=== PATIENT | female | born 1955 | race Caucasian/White ===

== ENCOUNTER 2020-05-17 16:09 | Inpatient (IN) | payer OTHER, SELFPAY ==
[2020-05-17 16:23] VITALS: BP 174/80; PULSE 76; RESP 13; TEMP 37.1; O2SAT 100; BMI 32.2
[2020-05-17 16:24] LABS: Glucose, Whole Blood 591 mg/dL (60-115)
--- NOTE | 2020-05-17 16:45 | ECG_ITS ---
Test Reason : DIZZINESS Blood Pressure : / mmHG Vent. Rate : 069 BPM Atrial Rate : 069 BPM P-R Int : 178 ms QRS Dur : 088 ms QT Int : 540 ms P-R-T Axes : 059 031 158 degrees QTc Int : 578 ms Normal sinus rhythm T wave abnormality, consider inferolateral ischemia Prolonged QT Abnormal ECG When compared with ECG of 08-SEP-2016 15:32, QT has lengthened Referred By: Albina Steven Electronically Signed By:NAY NELSON
--- NOTE | 2020-05-17 16:48 | ED_ITS ---
HPI - General Adult General Chief complaint: Dizziness Stated complaint: FEET PAIN AND DIZZINESS Time Seen by Provider: 05/17/20 16:22 Source: patient and EMS Mode of arrival: EMS Limitations: no limitations History of Present Illness HPI narrative: Patient comes to emergency room complaining of dizziness. Patient describes dizziness as feeling lightheaded, she states that for the last 2-3 weeks, every time that she stands up, she feels lightheaded. Earlier today, patient was taking a shower, she thought she was going to pass out, but she was able to lower himself to the ground. Patient did not lose consci ousness, did not hit her head. Patient on clopidogrel. Patient also complaining that her feet hurt. Patient is known to have neuropathy, however her feet have been cracking at the toes and heels. Patient denies fever or chills, no chest pain or shortness of breath. Patient also mentioned that for the last 2-3 weeks she has been having black stool. Patient is known to be on iron for the last 6-8 months, however she has never experienced black stool. Today she had an episode of diarrhea. In 2017, patient needed a blood transfusion for anemia. MD complaint: Dizziness Related Data Home Medications Medication Instructions Recorded Confirmed amlodipine 1 tab PO QAM 05/17/20 05/17/20 aspirin 1 tab PO QAM 05/17/20 05/17/20 atorvastatin 1 tab PO BEDTIME 05/17/20 05/17/20 chlorthalidone 1 tab PO QAM 05/17/20 05/17/20 cholecalciferol (vitamin D3) 1 cap PO QAM 05/17/20 05/17/20 [Vitamin D3] cilostazol 100 mg PO BID@1200,2100 05/17/20 05/17/20 clopidogrel 1 tab PO QAM 05/17/20 05/17/20 ferrous sulfate 1 tab PO QAM 05/17/20 05/17/20 insulin lispro [Humalog KwikPen 10 unit SUBCUT TIDAC 05/17/20 05/17/20 Insulin] levothyroxine 1 tab PO QAM 05/17/20 05/17/20 loratadine 1 tab PO QAM 05/17/20 05/17/20 losartan 1 tab PO QAM 05/17/20 05/17/20 metoprolol tartrate 1 tab PO BID 05/17/20 05/17/20 montelukast 1 tab PO BEDTIME 05/17/20 05/17/20 pregabalin 1 cap PO BID 05/17/20 05/17/20 venlafaxine 1 cap PO QAM 05/17/20 05/17/20 Allergies Allergy/AdvReac Type Severity Reaction Status Date / Time ALLYSSA Inhibitors Allergy Mild COUGH Verified 05/17/20 16:38 [ALLYSSA INHIBITORS] cilostazol [CILOSTAZOL] Allergy Mild COUGH Verified 05/17/20 16:38 Review of Systems Review of Systems: Constitutional : No Weight loss, No Fever, No Chills, No Night Sweats, No Fatigue, No Malaise ENT/Mouth : No Hearing loss, No Ear Pain, No Nasal Congestion, No Sinus Pain, No Hoarseness, No sore throat, No Rhinorrhea, No Swallowing Difficulty Eyes: No Eye Pain, No Swelling, No Redness, No Foreign Body, No Discharge, No Vision Changes Cardiovascular : No Chest Pain, No SOB, No Dyspnea on Exertion, No Orthopnea, No Edema, No Palpitations Respiratory : No Cough, No Sputum, No Wheezing, No Smoke Exposure, No Dyspnea Gastrointestinal : No Nausea, No Vomiting, complaining of 1 episode of diarrhea, 3 weeks of black stool, No Constipation, No abdominal Pain Genitourinary : no irregular bleeding, No Dysuria, patient states her urine smells stronger than usual, No Urinary Frequency, No Hematuria, No Urinary Incontinence, No Urgency, No Flank Pain, No Urinary Flow Changes, No Hesitancy Musculoskeletal : No joint pain, No Myalgias, No Joint Swelling, diabetic neuropathy bilaterally in lower extremities Skin : Complaining of cracked skin at the toes and heels bilaterally Neuro : No Weakness, No Numbness, No Paresthesias, No Loss of Consciousness, multiple episodes of dizziness when standing, No Headache Psych : No Anxiety/Panic, No Depression, No SI/HI/AH/VH, No Social Issues, Heme/Lymph: No Bruising, No Bleeding,No Lymphadenopathy Endocrine : No Polyuria, No Polydipsia, No Temperature Intolerance [facility] Past Medical History Medical History (Updated 05/17/20 @ 20:46 by Albina Steven MD) Anemia Asthma-COPD overlap syndrome Diabetes HTN (hypertension) Hypercholesteremia Hypothyroidism Neuropathy Social History Social History Smoking Status: Light tobacco smoker Use of substances other than those prescribed or required for medical reasons: No Any prior treatment program specific to substance use: No Advance Directives: No Advance Directives Information Provided: No Physical Exam Vital Signs: Vital Signs: Last Vital Signs Temp 97.8 F 05/17/20 19:47 Pulse 66 05/17/20 19:47 Resp 14 05/17/20 19:47 BP 156/81 H 05/17/20 19:47 Pulse Ox 100 05/17/20 19:47 Body Mass Index 32.2 Appearance: Alert. Oriented X3. No acute distress. Eyes: Pupils equal, round and reactive to light. ENT: Pharynx normal. Neck: Normal inspection. Neck supple. No lymph nodes noted. No crepitus CVS: Normal heart rate and rhythm. Pulses normal. Normal S1 and S2 Respiratory: No respiratory distress. Breath sounds normal. Mild bilateral occasional wheezing. No rales Abdomen: Soft and nontender. No rigidity. No distention. good BS x4, JOSE ALBERTO shows black stool Skin: Skin warm and dry. Extremities: No lower extremity edema. Cracked heels and toes bilaterally, no signs of cellulitis Neuro: Oriented X 3. No motor deficit. No sensory deficit. Moving all exter mities. No slurred speech. Course Course Course Narrative: Patient has positive orthostatics. Patient was given IV fluids. Orthostatic hypotension likely causing the patient to feel dizzy. Patient has low calcium, calcium gluconate was given. Patient's creatinine is increased, the last labs we have available are from 2017 which were within normal limits. Possibly acute kidney injury. Patient's troponin is 11.7, no EKG changes. Second troponin results pending. Guaiac negative, patient has black stool likely secondary to iron intake. I spoke with Dr. Massey, patient is being admitted. Medical Decision Making Lab Data Result diagrams: 05/17/20 17:36 05/17/20 22:22 Labs: Lab Results 05/17/20 05/17/20 05/17/20 Range/Units 16:21 17:32 17:33 WBC (4.8-10.8) X10*3/uL RBC (4.20-5.50) X10*6/uL Hgb (12.0-16.0) g/dl Hct (37-47) % MCV (80-98) fL MCH (27.0-33.0) pg MCHC (31.0-35.0) g/dl RDW (11.0-16.0) % Plt Count (160-400) X10*3/uL MPV (9.4-12.3) fL Immature Gran % (Auto) (0.0-0.4) % Neut % (Auto) (45-73) % Lymph % (Auto) (20-40) % [place] % (Auto) (2-11) % Eos % (Auto) (0-4) % Baso % (Auto) (0-2) % Lymph # (Auto) (1.2-4.9) X10*3/uL [place] # (Auto) (0.1-1.2) X10*3/uL Eos # (Auto) (0.0-0.4) X10*3/uL Baso # (Auto) (0.0-0.2) X10*3/uL Abs Immat Gran (auto) (0.00-0.03) X10*3/uL Absolute Neuts (auto) (2.0-8.3) X10*3/uL Absolute Nucleated RBC (0.0-0.012) X10*3/uL Nucleated RBC % (auto) (0.0-0.2) /100WBC PT (10.8-13.0) SEC INR (0.9-1.1) Sodium (135-145) mmol/L Potassium (3.3-5.1) mmol/L Chloride (96-108) mmol/L Carbon Dioxide (22-29) mmol/L Anion Gap (12-20) BUN (9-16) mg/dL Creatinine (0.5-1.4) mg/dL Estim Creat Clear Calc Estimated GFR POC Glucose 591 H* (60-115) mg/dL Random Glucose (60-115) mg/dL Lactic Acid (0.5-2.0) mmol/L Calcium (8.4-10.2) mg/dL Total Bilirubin (0.0-1.0) mg/dL Direct Bilirubin (0.0-0.5) mg/dL AST (5-31) U/L ALT (0-31) U/L Alkaline Phosphatase (39-117) U/L Troponin I High Sens (<3.5-17.0) ng/L Total Protein (6.5-8.0) g/dL Albumin (3.5-5.0) g/dL TSH (0.32-4.0) uIU/mL Urine Color Urine Appearance Urine pH (5.0-8.0) Ur Specific [place] (1.005-1.025) Urine Protein (NEG-TRACE) MG/DL Urine Glucose (UA) (NEG) MG/DL Urine Ketones (NEG) MG/DL Urine Blood (NEG) Urine Nitrite (NEG) Ur Leukocyte Esterase (NEG) Urine RBC (0) /HPF Urine WBC (0-4) /HPF Ur Squamous Epith Cells /LPF Urine Bacteria /LPF Urine Mucus /LPF Stool Occult Blood NEG (NEG) COVID-19 (AIDA) (Negative) COVID-19 Clin Com Blood Type A Negative Antibody Screen NEGATIVE 05/17/20 05/17/20 05/17/20 Range/Units 17:34 17:34 17:34 WBC (4.8-10.8) X10*3/uL RBC (4.20-5.50) X10*6/uL Hgb (12.0-16.0) g/dl Hct (37-47) % MCV (80-98) fL MCH (27.0-33.0) pg MCHC (31.0-35.0) g/dl RDW (11.0-16.0) % Plt Count (160-400) X10*3/uL MPV (9.4-12.3) fL Immature Gran % (Auto) (0.0-0.4) % Neut % (Auto) (45-73) % Lymph % (Auto) (20-40) % [place] % (Auto) (2-11) % Eos % (Auto) (0-4) % Baso % (Auto) (0-2) % Lymph # (Auto) (1.2-4.9) X10*3/uL [place] # (Auto) (0.1-1.2) X10*3/uL Eos # (Auto) (0.0-0.4) X10*3/uL Baso # (Auto) (0.0-0.2) X10*3/uL Abs Immat Gran (auto) (0.00-0.03) X10*3/uL Absolute Neuts (auto) (2.0-8.3) X10*3/uL Absolute Nucleated RBC (0.0-0.012) X10*3/uL Nucleated RBC % (auto) (0.0-0.2) /100WBC PT 11.3 (10.8-13.0) SEC INR 1.0 (0.9-1.1) Sodium (135-145) mmol/L Potassium (3.3-5.1) mmol/L Chloride (96-108) mmol/L Carbon Dioxide (22-29) mmol/L Anion Gap (12-20) BUN (9-16) mg/dL Creatinine (0.5-1.4) mg/dL Estim Creat Clear Calc Estimated GFR POC Glucose (60-115) mg/dL Random Glucose (60-115) mg/dL Lactic Acid (0.5-2.0) mmol/L Calcium (8.4-10.2) mg/dL Total Bilirubin (0.0-1.0) mg/dL Direct Bilirubin (0.0-0.5) mg/dL AST (5-31) U/L ALT (0-31) U/L Alkaline Phosphatase (39-117) U/L Troponin I High Sens 11.7 (<3.5-17.0) ng/L Total Protein (6.5-8.0) g/dL Albumin (3.5-5.0) g/dL TSH 0.38 (0.32-4.0) uIU/mL Urine Color Urine Appearance Urine pH (5.0-8.0) Ur Specific [place] (1.005-1.025) Urine Protein (NEG-TRACE) MG/DL Urine Glucose (UA) (NEG) MG/DL Urine Ketones (NEG) MG/DL Urine Blood (NEG) Urine Nitrite (NEG) Ur Leukocyte Esterase (NEG) Urine RBC (0) /HPF Urine WBC (0-4) /HPF Ur Squamous Epith Cells /LPF Urine Bacteria /LPF Urine Mucus /LPF Stool Occult Blood (NEG) COVID-19 (AIDA) (Negative) COVID-19 Clin Com Blood Type Antibody Screen 05/17/20 05/17/20 05/17/20 Range/Units 17:36 17:36 17:50 WBC 6.7 (4.8-10.8) X10*3/uL RBC 3.93 L (4.20-5.50) X10*6/uL Hgb 11.1 L (12.0-16.0) g/dl Hct 34.7 L (37-47) % MCV 88.3 (80-98) fL MCH 28.2 (27.0-33.0) pg MCHC 32.0 (31.0-35.0) g/dl RDW 13.1 (11.0-16.0) % Plt Count 216 (160-400) X10*3/uL MPV 10.8 (9.4-12.3) fL Immature Gran % (Auto) 0.1 (0.0-0.4) % Neut % (Auto) 70.4 (45-73) % Lymph % (Auto) 20.7 (20-40) % [place] % (Auto) 5.3 (2-11) % Eos % (Auto) 2.8 (0-4) % Baso % (Auto) 0.7 (0-2) % Lymph # (Auto) 1.4 (1.2-4.9) X10*3/uL [place] # (Auto) 0.4 (0.1-1.2) X10*3/uL Eos # (Auto) 0.2 (0.0-0.4) X10*3/uL Baso # (Auto) 0.1 (0.0-0.2) X10*3/uL Abs Immat Gran (auto) 0.01 (0.00-0.03) X10*3/uL Absolute Neuts (auto) 4.7 (2.0-8.3) X10*3/uL Absolute Nucleated RBC 0.000 (0.0-0.012) X10*3/uL Nucleated RBC % (auto) 0.0 (0.0-0.2) /100WBC PT (10.8-13.0) SEC INR (0.9-1.1) Sodium 135 (135-145) mmol/L Potassium 3.2 L (3.3-5.1) mmol/L Chloride 96 (96-108) mmol/L Carbon Dioxide 30 H (22-29) mmol/L Anion Gap 12 (12-20) BUN 32 H (9-16) mg/dL Creatinine 2.08 H (0.5-1.4) mg/dL Estim Creat Clear Calc 24.3 Estimated GFR 24 POC Glucose 495 H* (60-115) mg/dL Random Glucose 439 H* (60-115) mg/dL Lactic Acid (0.5-2.0) mmol/L Calcium 5.8 L* (8.4-10.2) mg/dL Total Bilirubin 0.5 (0.0-1.0) mg/dL Direct Bilirubin 0.2 (0.0-0.5) mg/dL AST 12 (5-31) U/L ALT 10 (0-31) U/L Alkaline Phosphatase 117 (39-117) U/L Troponin I High Sens (<3.5-17.0) ng/L Total Protein 7.2 (6.5-8.0) g/dL Albumin 3.5 (3.5-5.0) g/dL TSH (0.32-4.0) uIU/mL Urine Color Urine Appearance Urine pH (5.0-8.0) Ur Specific [place] (1.005-1.025) Urine Protein (NEG-TRACE) MG/DL Urine Glucose (UA) (NEG) MG/DL Urine Ketones (NEG) MG/DL Urine Blood (NEG) Urine Nitrite (NEG) Ur Leukocyte Esterase (NEG) Urine RBC (0) /HPF Urine WBC (0-4) /HPF Ur Squamous Epith Cells /LPF Urine Bacteria /LPF Urine Mucus /LPF Stool Occult Blood (NEG) COVID-19 (AIDA) (Negative) COVID-19 Clin Com Blood Type Antibody Screen 05/17/20 05/17/20 05/17/20 Range/Units 19:52 20:49 20:55 WBC (4.8-10.8) X10*3/uL RBC (4.20-5.50) X10*6/uL Hgb (12.0-16.0) g/dl Hct (37-47) % MCV (80-98) fL MCH (27.0-33.0) pg MCHC (31.0-35.0) g/dl RDW (11.0-16.0) % Plt Count (160-400) X10*3/uL MPV (9.4-12.3) fL Immature Gran % (Auto) (0.0-0.4) % Neut % (Auto) (45-73) % Lymph % (Auto) (20-40) % [place] % (Auto) (2-11) % Eos % (Auto) (0-4) % Baso % (Auto) (0-2) % Lymph # (Auto) (1.2-4.9) X10*3/uL [place] # (Auto) (0.1-1.2) X10*3/uL Eos # (Auto) (0.0-0.4) X10*3/uL Baso # (Auto) (0.0-0.2) X10*3/uL Abs Immat Gran (auto) (0.00-0.03) X10*3/uL Absolute Neuts (auto) (2.0-8.3) X10*3/uL Absolute Nucleated RBC (0.0-0.012) X10*3/uL Nucleated RBC % (auto) (0.0-0.2) /100WBC PT (10.8-13.0) SEC INR (0.9-1.1) Sodium (135-145) mmol/L Potassium (3.3-5.1) mmol/L Chloride (96-108) mmol/L Carbon Dioxide (22-29) mmol/L Anion Gap (12-20) BUN (9-16) mg/dL Creatinine (0.5-1.4) mg/dL Estim Creat Clear Calc Estimated GFR POC Glucose 236 H (60-115) mg/dL Random Glucose (60-115) mg/dL Lactic Acid (0.5-2.0) mmol/L Calcium (8.4-10.2) mg/dL Total Bilirubin (0.0-1.0) mg/dL Direct Bilirubin (0.0-0.5) mg/dL AST (5-31) U/L ALT (0-31) U/L Alkaline Phosphatase (39-117) U/L Troponin I High Sens 12.2 (<3.5-17.0) ng/L Total Protein (6.5-8.0) g/dL Albumin (3.5-5.0) g/dL TSH (0.32-4.0) uIU/mL Urine Color YELLOW Urine Appearance CLEAR Urine pH 6.0 (5.0-8.0) Ur Specific [place] 1.015 (1.005-1.025) Urine Protein 1+ H (NEG-TRACE) MG/DL Urine Glucose (UA) >=1000 H (NEG) MG/DL Urine Ketones NEG (NEG) MG/DL Urine Blood TRACE (NEG) Urine Nitrite NEG (NEG) Ur Leukocyte Esterase NEG (NEG) Urine RBC 1-4 (0) /HPF Urine WBC 1-4 (0-4) /HPF Ur Squamous Epith Cells 1+ /LPF Urine Bacteria 1+ /LPF Urine Mucus 1+ /LPF Stool Occult Blood (NEG) COVID-19 (AIDA) (Negative) COVID-19 Clin Com Blood Type Antibody Screen 05/17/20 05/17/20 Range/Units 21:36 21:36 WBC (4.8-10.8) X10*3/uL RBC (4.20-5.50) X10*6/uL Hgb (12.0-16.0) g/dl Hct (37-47) % MCV (80-98) fL MCH (27.0-33.0) pg MCHC (31.0-35.0) g/dl RDW (11.0-16.0) % Plt Count (160-400) X10*3/uL MPV (9.4-12.3) fL Immature Gran % (Auto) (0.0-0.4) % Neut % (Auto) (45-73) % Lymph % (Auto) (20-40) % [place] % (Auto) (2-11) % Eos % (Auto) (0-4) % Baso % (Auto) (0-2) % Lymph # (Auto) (1.2-4.9) X10*3/uL [place] # (Auto) (0.1-1.2) X10*3/uL Eos # (Auto) (0.0-0.4) X10*3/uL Baso # (Auto) (0.0-0.2) X10*3/uL Abs Immat Gran (auto) (0.00-0.03) X10*3/uL Absolute Neuts (auto) (2.0-8.3) X10*3/uL Absolute Nucleated RBC (0.0-0.012) X10*3/uL Nucleated RBC % (auto) (0.0-0.2) /100WBC PT (10.8-13.0) SEC INR (0.9-1.1) Sodium (135-145) mmol/L Potassium (3.3-5.1) mmol/L Chloride (96-108) mmol/L Carbon Dioxide (22-29) mmol/L Anion Gap (12-20) BUN (9-16) mg/dL Creatinine (0.5-1.4) mg/dL Estim Creat Clear Calc Estimated GFR POC Glucose (60-115) mg/dL Random Glucose (60-115) mg/dL Lactic Acid 1.7 (0.5-2.0) mmol/L Calcium (8.4-10.2) mg/dL Total Bilirubin (0.0-1.0) mg/dL Direct Bilirubin (0.0-0.5) mg/dL AST (5-31) U/L ALT (0-31) U/L Alkaline Phosphatase (39-117) U/L Troponin I High Sens (<3.5-17.0) ng/L Total Protein (6.5-8.0) g/dL Albumin (3.5-5.0) g/dL TSH (0.32-4.0) uIU/mL Urine Color Urine Appearance Urine pH (5.0-8.0) Ur Specific [place] (1.005-1.025) Urine Protein (NEG-TRACE) MG/DL Urine Glucose (UA) (NEG) MG/DL Urine Ketones (NEG) MG/DL Urine Blood (NEG) Urine Nitrite (NEG) Ur Leukocyte Esterase (NEG) Urine RBC (0) /HPF Urine WBC (0-4) /HPF Ur Squamous Epith Cells /LPF Urine Bacteria /LPF Urine Mucus /LPF Stool Occult Blood (NEG) COVID-19 (AIDA) Negative (Negative) COVID-19 Clin Com See Note Blood Type Antibody Screen ECG Data Attestation: I personally reviewed and interpreted this ECG as follows: (Sinus rhythm, heart rate 69, prolonged QT and QTC at 578, T-wave abnormalities in V4 through V6. EKG2: No changes from previous EKG, heart rate 71, QTC 517, nonspecific T-wave abnormality in V4 through V6) Discharge Plan Discharge Clinical Impression: Autonomic orthostatic hypotension, Hypocalcemia, Acute kidney injury Patient Disposition: Admitted As Inpatient
[2020-05-17] MEDS: 0.9 % Sodium Chloride 1,000 ML 999 ML IVCONT ×2 (17:02→20:52)
[2020-05-17] MEDS: Insulin Regular, Human 100 UNIT/ML 3 ML VIAL 10 UNIT IVPUSH ×2 (17:02→20:17)
[2020-05-17 17:42] LABS: MANUAL DIFF FLAG NO
[2020-05-17 17:43] VITALS: BP 169/77; PULSE 72
[2020-05-17 17:44] VITALS: BP 162/79; PULSE 80
[2020-05-17 17:44] LABS: Basophils Absolute Auto 0.1 X10*3/uL (0.0-0.2); Basophils Percent Auto 0.7 % (0-2); Eosinophils Absolute Auto 0.2 X10*3/uL (0.0-0.4); Eosinophils Percent Auto 2.8 % (0-4); Hematocrit 34.7 % (37-47); Hemoglobin 11.1 g/dl (12.0-16.0); Imm Gran Abs Auto 0.01 X10*3/uL (0.00-0.03); Imm Gran Pct Auto 0.1 % (0.0-0.4); Lymphocytes Absolute Auto 1.4 X10*3/uL (1.2-4.9); Lymphocytes Percent Auto 20.7 % (20-40); Mean Corpuscular Hemoglobin 28.2 pg (27.0-33.0); Mean Corpuscular Volume 88.3 fL (80-98); Mean Platelet Volume 10.8 fL (9.4-12.3); Monocytes Absolute Auto 0.4 X10*3/uL (0.1-1.2); Monocytes Percent Auto 5.3 % (2-11); Neutrophils Absolute Auto 4.7 X10*3/uL (2.0-8.3); Neutrophils Percent Auto 70.4 % (45-73); Platelet Count 216 X10*3/uL (160-400); Red Blood Count 3.93 X10*6/uL (4.20-5.50); Red Cell Distribution Width 13.1 % (11.0-16.0); White Blood Count 6.7 X10*3/uL (4.8-10.8)
[2020-05-17 17:46] VITALS: BP 117/61; PULSE 80
[2020-05-17 17:46] LABS: OBS Int Ctl Valid YES; OBS1 NEG (NEG)
[2020-05-17 17:50] LABS: Prothrombin Time 11.3 SEC (10.8-13.0)
[2020-05-17 17:56] LABS: Glucose, Whole Blood 495 mg/dL (60-115)
[2020-05-17 18:17] LABS: Troponin-I High Sensitivity 11.7 ng/L (<3.5-17.0)
[2020-05-17 18:30] LABS: TSH reflex Free T4 0.38 uIU/mL (0.32-4.0)
[2020-05-17 18:32] LABS: Alanine Aminotransferase 10 U/L (0-31); Albumin Level 3.5 g/dL (3.5-5.0); Alkaline Phosphatase 117 U/L (39-117); Anion Gap 12 (12-20); Aspartate Amino Transferase 12 U/L (5-31); Bilirubin Direct 0.2 mg/dL (0.0-0.5); Bilirubin Total 0.5 mg/dL (0.0-1.0); Blood Urea Nitrogen 32 mg/dL (9-16); Calcium 5.8 mg/dL (8.4-10.2); Carbon Dioxide 30 mmol/L (22-29); Chloride 96 mmol/L (96-108); Creatinine Clr Calc Pharmacy 24.3; Estimated Glomerular Filt Rate 24; Glucose Random 439 mg/dL (60-115); Potassium 3.2 mmol/L (3.3-5.1); Sodium 135 mmol/L (135-145); Total Protein 7.2 g/dL (6.5-8.0)
[2020-05-17 19:47] VITALS: BP 156/81; PULSE 66; RESP 14; TEMP 36.6; O2SAT 100
--- NOTE | 2020-05-17 20:02 | PC.NURSE ---
SPOKE WITH MD REGARDING PATIENT POC. PLAN FOR ANOTHER 10 UNITS OF INSULIN.
[2020-05-17 20:04] LABS: Glucose Urine UA >=1000 MG/DL (NEG); Leukocyte Esterase Urine NEG (NEG); Nitrite Urine NEG (NEG); Specific Gravity - Urine 1.015 (1.005-1.025); Urine Blood TRACE (NEG); Urine Ketones NEG (NEG); Urine Protein 1+ MG/DL (NEG-TRACE)
[2020-05-17 20:08] LABS: Appearance Urine CLEAR; Color Urine YELLOW
[2020-05-17 20:10] LABS: Bacteria Urine 1+ /LPF; Mucus Urine 1+ /LPF; Squamous Epithelial Cell Urine 1+ /LPF
--- NOTE | 2020-05-17 20:23 | MHC.CM.ED ---
RN requested CM to meet with pt in regards to completing HCP. Met with pt. Reviewed HCP process. Pt requests to complete. HCP Javi [phone]. HCP reviewed, signed and copies given. Uploaded into [facility] and [employer].
--- NOTE | 2020-05-17 20:47 | ECG_ITS ---
Test Reason : REPEAT Blood Pressure : / mmHG Vent. Rate : 071 BPM Atrial Rate : 071 BPM P-R Int : 182 ms QRS Dur : 090 ms QT Int : 476 ms P-R-T Axes : 055 046 191 degrees QTc Int : 517 ms Sinus rhythm with Premature atrial complexes T wave abnormality, consider inferolateral ischemia Prolonged QT Abnormal ECG When compared with ECG of 17-MAY-2020 17:07, Premature atrial complexes are now Present T wave inversion more evident in Inferior leads QT has shortened Referred By: Albina Steven Electronically Signed By:NAY NELSON
[2020-05-17] MEDS: Calcium Gluconate/NaCl,Iso-Osm 2 GM/100 ML PLAST..BAG IV (20:51)
[2020-05-17 20:59] LABS: Glucose, Whole Blood 236 mg/dL (60-115)
[2020-05-17 21:26] LABS: Troponin-I High Sensitivity 12.2 ng/L (<3.5-17.0)
--- NOTE | 2020-05-17 21:47 | P.HPHOSP_ITS ---
History of Present Illness Date of Service: 05/17/20 Chief Complaint: Dizziness 64-year-old female with a past medical history of hypertension, hyperlipidemia, diabetes, diabetic neuropathy, asthma/COPD, anemia on iron tablets presented to the hospital with a chief complaint of generalized weakness/dizziness going on for the past 2-3 weeks. Also complains of dark stools. Complains of neuropathy pain in her feet. Denies any chest pain palpitations lightheadedness or dizziness. Denies any fever chills cough. Denies any GI or symptoms. Review of all other systems is negative except mentioned above ER course: Per ER team guaiac test was negative. Exam nonfocal. Troponins x2 negative. Patient was orthostatic positive; likely contributing to dizziness; given IV fluids in the ER. Noted to have hypocalcemia and MARY KATE. Given calcium supplementation. QTC was prolonged. ER team also mentioned that patient fingerstick glucose was in 600 on presentation given regular insulin IV x2. Patient not in DKA. Admitted to the hospital for further management. [facility] Medical History (Updated 05/19/20 @ 12:14 by Jean Claude Bowden MD) Anemia Asthma-COPD overlap syndrome Diabetes HTN (hypertension) Hypercholesteremia Hypothyroidism Neuropathy Social History Household Members: None Housing: Apartment Smoking Status: Former smoker Tobacco Type: Cigarette service: No Current occupational status: disabled Meds Allergies Allergy/AdvReac Type Severity Reaction Status Date / Time ALLYSSA Inhibitors Allergy Mild COUGH Verified 05/17/20 16:38 [ALLYSSA INHIBITORS] cilostazol [CILOSTAZOL] Allergy Mild COUGH Verified 05/17/20 16:38 Active Medications: Current Medications Generic Name Dose Route Start Last Admin Trade Name Freq PRN Reason Stop Dose Admin Acetaminophen 650 mg 05/17/20 21:40 Acetaminophen 325 Mg Tablet PO Q6H PRN Pain, Mild (Pain Scale 1-3) Amlodipine Besylate 2.5 mg 05/17/20 21:45 Amlodipine Besylate 2.5 Mg Tablet PO [facility] Protocol Aspirin 81 mg 05/17/20 21:45 Aspirin Enteric Coated 81 Mg Table[facility] Atorvastatin Calcium 80 mg 05/18/20 21:00 Atorvastatin Calcium 80 Mg Tablet PO BEDTIME [facility] Cilostazol 100 mg 05/18/20 12:00 Cilostazol 100 Mg Tablet PO BID@1200,2100 [facility] Clopidogrel Bisulfate 75 mg 05/18/20 09:00 Clopidogrel Bisulfate 75 Mg Tablet PO DAILY [facility] Heparin Sodium (Porcine) 5,000 unit 05/17/20 22:00 Heparin Sodium,Porcine 5,000 Unit/Ml Vial SUBCUT Q8H [facility] Calcium Gluconate 2 gm in 100 mls @ 50 mls/hr 05/17/20 20:21 05/17/20 20:55 Calcium Gluconate IV 05/17/20 22:20 50 mls/hr ONCE ONE Infusion Sodium Chloride 1,000 mls @ 100 mls/hr 05/17/20 21:45 IVCONT .Q10H [facility] Insulin Glargine 10 unit 05/18/20 21:00 Insulin Glargine,Hum.Rec.Anlog 100 Unit/Ml 10 Ml Vial SUBCUT BEDTIME [facility] Insulin Human Lispro 0 unit 05/18/20 07:30 Insulin Lispro 100 Unit/Ml 3 Ml Vial SUBCUT QIDACHS [facility] Protocol Levothyroxine Sodium 25 mcg 05/17/20 21:45 Levothyroxine Sodium 25 Mcg Tablet PO QAM [facility] Loratadine 10 mg 05/17/20 21:45 Loratadine 10 Mg Tablet PO QAM [facility] Metoprolol Tartrate 25 mg 05/18/20 09:00 Metoprolol Tartrate 25 Mg Tablet PO BID [facility] Protocol Montelukast Sodium 10 mg 05/18/20 21:00 Montelukast Sodium 10 Mg Tablet PO BEDTIME [facility] Non-Formulary Medication 1 tab 05/17/20 21:45 Ferrous Sulfate PO QAM [facility] Pregabalin 150 mg 05/18/20 09:00 Pregabalin 150 Mg Capsule PO BID [facility] Senna 17.2 mg 05/17/20 21:40 Sennosides 8.6 Mg Tablet PO BEDTIME PRN Constipation Sodium Chloride 3 ml 05/18/20 00:00 0.9 % Sodium Chloride Flush 3 Ml Syringe IVFLUSH QSHIFT [facility] Venlafaxine HCl 37.5 mg 05/17/20 21:45 Venlafaxine Hcl Er 37.5 Mg Cap.Er.24h PO QAM [facility] Vitamin D 25 mcg 05/17/20 21:45 Cholecalciferol (Vitamin D3) 25 Mcg Tablet PO QAM [facility] Zolpidem Tartrate 5 mg 05/17/20 21:40 Zolpidem Tartrate 5 Mg Tablet PO BEDTIME PRN Insomnia Home Medications Medication Instructions Recorded Confirmed Last Taken Type amlodipine 1 tab PO QAM 05/17/20 05/17/20 Unknown History aspirin 1 tab PO QAM 05/17/20 05/17/20 Unknown History atorvastatin 1 tab PO BEDTIME 05/17/20 05/17/20 Unknown History cholecalciferol (vitamin D3) 1 cap PO QAM 05/17/20 05/17/20 Unknown History [Vitamin D3] cilostazol 100 mg PO BID@1200,2100 05/17/20 05/17/20 Unknown History clopidogrel 1 tab PO QAM 05/17/20 05/17/20 Unknown History ferrous sulfate 1 tab PO QAM 05/17/20 05/17/20 Unknown History insulin lispro [Humalog KwikPen 10 unit SUBCUT TIDAC 05/17/20 05/17/20 Unknown History Insulin] levothyroxine 1 tab PO QAM 05/17/20 05/17/20 Unknown History loratadine 1 tab PO QAM 05/17/20 05/17/20 Unknown History metoprolol tartrate 1 tab PO BID 05/17/20 05/17/20 Unknown History montelukast 1 tab PO BEDTIME 05/17/20 05/17/20 Unknown History pregabalin 1 cap PO BID 05/17/20 05/17/20 Unknown History venlafaxine 1 cap PO QAM 05/17/20 05/17/20 Unknown History Physical Exam Vital Signs and Narrative: Vital Signs: Last Vital Signs Temp 97.8 F 05/17/20 19:47 Pulse 66 05/17/20 19:47 Resp 14 05/17/20 19:47 BP 156/81 H 05/17/20 19:47 Pulse Ox 100 05/17/20 19:47 Body Mass Index 32.2 Gen: Appears be in no acute distress HEENT: NCAT, Moist mucosa. Pulmonary: Vesicular breath sounds, fair air entry CVS: Normal S1-S2 Abdomen: BS+, Soft, Nontender Extremities: Warm well perfused Neuro: Alert and awake. Grossly nonfocal Results Labs CBC and Chem 7: 05/18/20 05:18 05/20/20 05:17 Labs: Laboratory Results - last 24 hr 05/17/20 05/17/20 05/17/20 16:21 17:32 17:33 MCV MCH MCHC RDW Plt Count MPV Immature Gran % (Auto) Neut % (Auto) Lymph % (Auto) [place] % (Auto) Eos % (Auto) Baso % (Auto) Lymph # (Auto) [place] # (Auto) Eos # (Auto) Baso # (Auto) Abs Immat Gran (auto) Absolute Neuts (auto) Absolute Nucleated RBC Nucleated RBC % (auto) PT INR Anion Gap Estim Creat Clear Calc Estimated GFR POC Glucose 591 H* Random Glucose Calcium Total Bilirubin Direct Bilirubin AST ALT Alkaline Phosphatase Troponin I High Sens Total Protein Albumin TSH Urine Color Urine Appearance Urine pH Ur Specific [place] Urine Protein Urine Glucose (UA) Urine Ketones Urine Blood Urine Nitrite Ur Leukocyte Esterase Urine RBC Urine WBC Ur Squamous Epith Cells Urine Bacteria Urine Mucus Stool Occult Blood NEG Blood Type A Negative Antibody Screen NEGATIVE 05/17/20 05/17/20 05/17/20 17:34 17:34 17:34 MCV MCH MCHC RDW Plt Count MPV Immature Gran % (Auto) Neut % (Auto) Lymph % (Auto) [place] % (Auto) Eos % (Auto) Baso % (Auto) Lymph # (Auto) [place] # (Auto) Eos # (Auto) Baso # (Auto) Abs Immat Gran (auto) Absolute Neuts (auto) Absolute Nucleated RBC Nucleated RBC % (auto) PT 11.3 INR 1.0 Anion Gap Estim Creat Clear Calc Estimated GFR POC Glucose Random Glucose Calcium Total Bilirubin Direct Bilirubin AST ALT Alkaline Phosphatase Troponin I High Sens 11.7 Total Protein Albumin TSH 0.38 Urine Color Urine Appearance Urine pH Ur Specific [place] Urine Protein Urine Glucose (UA) Urine Ketones Urine Blood Urine Nitrite Ur Leukocyte Esterase Urine RBC Urine WBC Ur Squamous Epith Cells Urine Bacteria Urine Mucus Stool Occult Blood Blood Type Antibody Screen 05/17/20 05/17/20 05/17/20 17:36 17:36 17:50 MCV 88.3 MCH 28.2 MCHC 32.0 RDW 13.1 Plt Count 216 MPV 10.8 Immature Gran % (Auto) 0.1 Neut % (Auto) 70.4 Lymph % (Auto) 20.7 [place] % (Auto) 5.3 Eos % (Auto) 2.8 Baso % (Auto) 0.7 Lymph # (Auto) 1.4 [place] # (Auto) 0.4 Eos # (Auto) 0.2 Baso # (Auto) 0.1 Abs Immat Gran (auto) 0.01 Absolute Neuts (auto) 4.7 Absolute Nucleated RBC 0.000 Nucleated RBC % (auto) 0.0 PT INR Anion Gap 12 Estim Creat Clear Calc 24.3 Estimated GFR 24 POC Glucose 495 H* Random Glucose 439 H* Calcium 5.8 L* Total Bilirubin 0.5 Direct Bilirubin 0.2 AST 12 ALT 10 Alkaline Phosphatase 117 Troponin I High Sens Total Protein 7.2 Albumin 3.5 TSH Urine Color Urine Appearance Urine pH Ur Specific [place] Urine Protein Urine Glucose (UA) Urine Ketones Urine Blood Urine Nitrite Ur Leukocyte Esterase Urine RBC Urine WBC Ur Squamous Epith Cells Urine Bacteria Urine Mucus Stool Occult Blood Blood Type Antibody Screen 05/17/20 05/17/20 05/17/20 19:52 20:49 20:55 MCV MCH MCHC RDW Plt Count MPV Immature Gran % (Auto) Neut % (Auto) Lymph % (Auto) [place] % (Auto) Eos % (Auto) Baso % (Auto) Lymph # (Auto) [place] # (Auto) Eos # (Auto) Baso # (Auto) Abs Immat Gran (auto) Absolute Neuts (auto) Absolute Nucleated RBC Nucleated RBC % (auto) PT INR Anion Gap Estim Creat Clear Calc Estimated GFR POC Glucose 236 H Random Glucose Calcium Total Bilirubin Direct Bilirubin AST ALT Alkaline Phosphatase Troponin I High Sens 12.2 Total Protein Albumin TSH Urine Color YELLOW Urine Appearance CLEAR Urine pH 6.0 Ur Specific [place] 1.015 Urine Protein 1+ H Urine Glucose (UA) >=1000 H Urine Ketones NEG Urine Blood TRACE Urine Nitrite NEG Ur Leukocyte Esterase NEG Urine RBC 1-4 Urine WBC 1-4 Ur Squamous Epith Cells 1+ Urine Bacteria 1+ Urine Mucus 1+ Stool Occult Blood Blood Type Antibody Screen Assessment and Plan (1) Acute kidney injury: Problem details: MARY KATE on CKD MARY KATE due to dehydration Cr is improving Hold Losartan for now Keep I > O ; s/p IV NS Status: Acute 64-year-old female with a past medical history of hypertension, hyperlipidemia, diabetes, diabetic neuropathy, anemia, presented to the hospital with a chief complaint of dizziness. Noted to be orthostatic hypotension positive/dehydration/MARY KATE. Admitted to the hospital for further management. Dizziness: Likely in the setting of orthostatic hypotension. Given IV fluids. Improving symptomatically. Troponins x2 negative. EKG nonischemic. Fall precautions. PT/OT eventually. MARY KATE: Likely prerenal. IV fluids. Nephrology consult. Hold home losartan. Avoid nephrotoxins. Prolonged QTC: Likely in setting of hypocalcemia. Monitor on telemetry. Hypocalcemia: Repleted. Will recheck levels. Patient is symptomatic. Diabetes with hyperglycemia: Patient not in DKA. Given regular IV insulin in the ER. Will keep the patient on Lantus 10 units at bedtime and insulin sliding scale; starting with low-dose of insulin given MARY KATE. Incisions to be titrated based on the fingerstick glucose. Black stools: Guaiac negative. Likely in the setting of iron tablets use. Diabetic neuropathy: Continue home pregabalin. DVT prophylaxis: Subcu heparin Code status: Full code
[2020-05-17 22:04] LABS: Lactic Acid 1.7 mmol/L (0.5-2.0)
[2020-05-17 22:05] LABS: COVID-19 Test Negative (Negative)
[2020-05-17 22:53] LABS: Anion Gap 11 (12-20); Blood Urea Nitrogen 28 mg/dL (9-16); Calcium 6.2 mg/dL (8.4-10.2); Carbon Dioxide 28 mmol/L (22-29); Chloride 102 mmol/L (96-108); Creatinine Clr Calc Pharmacy 27.5; Estimated Glomerular Filt Rate 28; Glucose Random 189 mg/dL (60-115); Potassium 3.2 mmol/L (3.3-5.1); Sodium 138 mmol/L (135-145)
--- NOTE | 2020-05-17 23:17 | PC.NURSE ---
NURSE TO NURSE GIVEN TO JENNIFER ON S3.
[2020-05-18] VITALS (9 sets, daily range): BP systolic 116–168; BP diastolic 58–79; PULSE 67–88; RESP 16–18; TEMP 36.2–37.1; O2SAT 95–100; BMI 32.2
[2020-05-18] MEDS: Sodium Chloride 0.45 % 1,000 ML 100 ML IVCONT ×3 (00:12→19:01)
[2020-05-18] MEDS: Heparin Sodium,Porcine 5,000 UNIT/ML VIAL 5000 UNIT SUBCUT ×3 (00:14→16:39)
[2020-05-18] MEDS: 0.9 % Sodium Chloride Flush 3 ML SYRINGE IVFLUSH (00:14)
[2020-05-18 06:01] LABS: MANUAL DIFF FLAG NO
[2020-05-18 06:09] LABS: Basophils Absolute Auto 0.1 X10*3/uL (0.0-0.2); Basophils Percent Auto 0.8 % (0-2); Eosinophils Absolute Auto 0.2 X10*3/uL (0.0-0.4); Eosinophils Percent Auto 3.2 % (0-4); Hematocrit 33.8 % (37-47); Imm Gran Abs Auto 0.01 X10*3/uL (0.00-0.03); Imm Gran Pct Auto 0.1 % (0.0-0.4); Lymphocytes Percent Auto 27.2 % (20-40); Mean Corpuscular HGB Conc 32.5 g/dl (31.0-35.0); Mean Corpuscular Hemoglobin 28.6 pg (27.0-33.0); Mean Corpuscular Volume 87.8 fL (80-98); Mean Platelet Volume 11.3 fL (9.4-12.3); Monocytes Absolute Auto 0.5 X10*3/uL (0.1-1.2); Monocytes Percent Auto 7.4 % (2-11); Neutrophils Absolute Auto 4.5 X10*3/uL (2.0-8.3); Neutrophils Percent Auto 61.3 % (45-73); Platelet Count 223 X10*3/uL (160-400); Red Blood Count 3.85 X10*6/uL (4.20-5.50); Red Cell Distribution Width 13.3 % (11.0-16.0); White Blood Count 7.3 X10*3/uL (4.8-10.8)
[2020-05-18] MEDS: Levothyroxine Sodium 25 MCG TABLET PO (06:09)
[2020-05-18 06:31] LABS: Anion Gap 11 (12-20); Blood Urea Nitrogen 25 mg/dL (9-16); Calcium 6.3 mg/dL (8.4-10.2); Carbon Dioxide 28 mmol/L (22-29); Chloride 102 mmol/L (96-108); Creatinine Clr Calc Pharmacy 27.6; Estimated Glomerular Filt Rate 28; Glucose Random 332 mg/dL (60-115); Potassium 3.8 mmol/L (3.3-5.1); Sodium 137 mmol/L (135-145)
[2020-05-18 07:00] LABS: Thyroid Stimulating Hormone 0.45 uIU/mL (0.32-4.0)
[2020-05-18 07:52] LABS: Glucose, Whole Blood 295 mg/dL (60-115)
[2020-05-18] MEDS: Insulin Lispro 100 UNIT/ML 3 ML VIAL SUBCUT ×4 (08:07→20:33)
[2020-05-18] MEDS: Ferrous Sulfate 324 MG TABLET.DR PO (08:07)
[2020-05-18] MEDS: Venlafaxine HCl ER 37.5 MG CAP.ER.24H PO (08:08)
[2020-05-18] MEDS: Loratadine 10 MG TABLET PO (08:08)
[2020-05-18] MEDS: Clopidogrel Bisulfate 75 MG TABLET PO (08:08)
[2020-05-18] MEDS: amLODIPine Besylate 2.5 MG TABLET PO (08:08)
[2020-05-18] MEDS: Pregabalin 150 MG CAPSULE PO ×2 (08:08→20:31)
[2020-05-18] MEDS: Metoprolol Tartrate 25 MG TABLET PO ×2 (08:08→20:31)
[2020-05-18] MEDS: Aspirin Enteric Coated 81 MG TABLET.DR PO (08:08)
[2020-05-18] MEDS: Cholecalciferol (Vitamin D3) 25 MCG TABLET PO (08:08)
[2020-05-18 11:26] LABS: Glucose, Whole Blood 349 mg/dL (60-115)
[2020-05-18] MEDS: cilostazoL 100 MG TABLET PO ×2 (11:30→20:39)
--- NOTE | 2020-05-18 11:39 | MHC.CM.PN ---
nurse day care teacher note electronic medical record reviewed along with case discussed with staff nurse and n multiple disciplinary rounds, met with patient she reported she has moved to [place] and has new address [phone] she lives lone and her granddaughter often stays over on weekends to help out and go grocery shopping with her, she gave me permission to talk with her son/hcp chavo kong [phone] she reported that she is independent in her adls at her own pace , but often has difficulty walking and needs a cane or walker , has difficulty going up and down the stairs, she recently as of may 16 2020 started on [facility] managed medicaid /medicare and was given 8 rides per month for medical appointments, grocery shopping or going to the pharmacy or shopping she confirmed pcp dr brunner. she reported that in the past she saw a psych/therapist and was on medications for anxiety /depression, and would like to speak with some one regarding this and gets some referrals , care team consult imitated discharge plan notified case management paralegal secretary OF CHANGE OF ADDRESS AND CoNFIRMATION OF PCP , CALLED TO REGISTRATION TO INFORM THEM THAT PATIENT NOW HAS [employer] INSURANCE EFFECTIVE 05/16/2020 HOME WITH NEW REFERRAL TO THE [facility] FOR N[facility]SING AND MAY NEED HOME PHYSICAL THERAPY , [facility] to [facility] transportation family pcp dr schwartz patient to call for post hospital discharge follow up medicare imm explained and given to patient
--- NOTE | 2020-05-18 11:47 | HO.PM.IMPN ---
Subjective Subjective Date of Service: 07/16/20 Interval History: Seen in f/u for MARY KATE, orthostatic hypotension. She feels better today Review of Systems Gen: no fever Resp: no sob, no cough CV: no chest, no TIWARI, no leg edema GI: No n/v, no abd pain Neuro: No confusion Physical Exam Vital Signs: Vital Signs: Last Vital Signs Temp 97.4 F 05/18/20 11:05 Pulse 67 05/18/20 11:05 Resp 18 05/18/20 11:05 BP 161/72 H 05/18/20 11:05 Pulse Ox 97 05/18/20 11:05 Body Mass Index 32.2 General: AO X 3, no acute distress Resp: CTA bilateral CVS: S1,S2,RRR GI: +BS, NT, no distention Skin: No rash Neuro: motor grossly intact Psych: appropriate affect Objective Data Current Medications Generic Name Dose Route Start Last Admin Trade Name Freq PRN Reason Stop Dose Admin Acetaminophen 650 mg 05/17/20 21:40 Acetaminophen 325 Mg Tablet PO Q6H PRN Pain, Mild (Pain Scale 1-3) Amlodipine Besylate 2.5 mg 05/18/20 09:00 05/18/20 08:08 Amlodipine Besylate 2.5 Mg Tablet PO 2.5 mg DAILY JOEL Administration Protocol Aspirin 81 mg 05/18/20 09:00 05/18/20 08:08 Aspirin Enteric Coated 81 Mg Tablet. PO 81 mg DAILY [facility] Administration Atorvastatin Calcium 80 mg 05/18/20 21:00 Atorvastatin Calcium 80 Mg Tablet PO BEDTIME [facility] Cilostazol 100 mg 05/18/20 12:00 05/18/20 11:30 Cilostazol 100 Mg Tablet PO 100 mg BID@1200,2100 [facility] Administration Clopidogrel Bisulfate 75 mg 05/18/20 09:00 05/18/20 08:08 Clopidogrel Bisulfate 75 Mg Tablet PO 75 mg DAILY [facility] Administration Ferrous Sulfate 324 mg 05/18/20 09:00 05/18/20 08:07 Ferrous Sulfate 324 Mg Tablet. PO 324 mg DAILY [facility] Administration Heparin Sodium (Porcine) 5,000 unit 05/18/20 08:00 05/18/20 08:07 Heparin Sodium,Porcine 5,000 Unit/Ml Vial SUBCUT 5,000 unit Q8H [facility] Administration Sodium Chloride 1,000 mls @ 100 mls/hr 05/17/20 21:45 05/18/20 10:13 IVCONT 100 mls/hr .Q10H [facility] Administration Insulin Glargine 10 unit 05/18/20 21:00 Insulin Glargine,Hum.Rec.Anlog 100 Unit/Ml 10 Ml Vial SUBCUT BEDTIME [facility] Insulin Human Lispro 0 unit 05/18/20 07:30 05/18/20 11:29 Insulin Lispro 100 Unit/Ml 3 Ml Vial SUBCUT 8 unit QIDACHS [facility] Administration Protocol Levothyroxine Sodium 25 mcg 05/18/20 06:00 05/18/20 06:09 Levothyroxine Sodium 25 Mcg Tablet PO 25 mcg DAILY@0600 [facility] Administration Loratadine 10 mg 05/18/20 09:00 05/18/20 08:08 Loratadine 10 Mg Tablet PO 10 mg DAILY [facility] Administration Metoprolol Tartrate 25 mg 05/18/20 09:00 05/18/20 08:08 Metoprolol Tartrate 25 Mg Tablet PO 25 mg BID [facility] Administration Protocol Montelukast Sodium 10 mg 05/18/20 21:00 Montelukast Sodium 10 Mg Tablet PO BEDTIME [facility] Pregabalin 150 mg 05/18/20 09:00 05/18/20 08:08 Pregabalin 150 Mg Capsule PO 150 mg BID [facility] Administration Senna 17.2 mg 05/17/20 21:40 Sennosides 8.6 Mg Tablet PO BEDTIME PRN Constipation Sodium Chloride 3 ml 05/18/20 00:00 05/18/20 08:10 0.9 % Sodium Chloride Flush 3 Ml Syringe IVFLUSH Not Given QSHIFT [facility] Venlafaxine HCl 37.5 mg 05/18/20 09:00 05/18/20 08:08 Venlafaxine Hcl Er 37.5 Mg Cap.Er.24h PO 37.5 mg DAILY [facility] Administration Vitamin D 25 mcg 05/18/20 09:00 05/18/20 08:08 Cholecalciferol (Vitamin D3) 25 Mcg Tablet PO 25 mcg DAILY [facility] Administration Zolpidem Tartrate 5 mg 05/17/20 21:40 Zolpidem Tartrate 5 Mg Tablet PO BEDTIME PRN Insomnia Labs CBC & Chem 7: 05/18/20 05:18 05/20/20 05:17 Assessment and Plan (1) Acute kidney injury: Problem details: MARY KATE on CKD MARY KATE due to dehydration Cr is improving Hold Losartan for now Keep I > O ; s/p IV NS Status: Acute Assessment and Plan: 64-year-old female with a past medical history of hypertension, hyperlipidemia, diabetes, diabetic neuropathy, anemia, presented to the hospital with a chief complaint of dizziness. Noted to be orthostatic hypotension positive/dehydration/MARY KATE. Admitted to the hospital for further management. Dizziness: Likely in the setting of orthostatic hypotension. Improved with IV. Troponins x2 negative. EKG nonischemic. Fall precautions. PT/OT eventually. MARY KATE: is getting rae, Likely prerenal. IV fluids. Nephrology consult. Hold losartan. Avoid nephrotoxins. Prolonged QTC: Likely in setting of hypocalcemia. Monitor on telemetry. Hypocalcemia: Repleted. ICal level pending. Follow, and give additional supplement, assymptomatic at this point Diabetes with hyperglycemia. Uncontrolled, Incrase lantus and continue SSI Black stools: Guaiac negative. Likely in the setting of iron tablets use. Diabetic neuropathy: Continue home pregabalin. HLD--Lipitor DVT prophylaxis: Subcu heparin Code status: Full code
--- NOTE | 2020-05-18 13:35 | CONS_ITS ---
DATE OF SERVICE: 05/18/2020 REASON FOR CONSULTATION: I was called to see this patient to assist in the management of acute kidney injury. HISTORY OF PRESENT ILLNESS: To summarize, Sarah is a 64-year-old woman with history of longstanding diabetes mellitus and hypertension complicated by diabetic neuropathy and diabetic nephropathy. She has a history of chronic kidney disease with a baseline creatinine of around 1.5 mg/dL. She follows with my associate in the office. She has been noncompliant in the last visit was few years ago. She comes to the hospital because of dizziness and she had dark stools at the time of admission. On further evaluation, she was found to have acute kidney injury and she also had orthostatic blood pressure changes. Since admission, the losartan has been held. She is getting IV fluids. There has been minimal improvement in the serum creatinine. Hence, consultation has been requested for management of the renal insufficiency. PAST MEDICAL HISTORY: Ongoing medical problems include history of hypertension, diabetes mellitus, stage 3 chronic kidney disease, COPD, anemia, hyperlipidemia, diabetic neuropathy, hypothyroidism, obesity. SOCIAL HISTORY: There is a history of smoking. No history of alcohol abuse or drug abuse. ALLERGIES: SHE IS ALLERGIC TO ALLYSSA INHIBITORS, WHICH CAUSED COUGH; ALSO ALLERGIC TO CILOSTAZOL. HOME MEDICATIONS: Include amlodipine, aspirin, atorvastatin, chlorthalidone, cilostazol, Plavix, iron sulfate, levothyroxine, losartan, loratadine, metoprolol, montelukast, pregabalin, venlafaxine. All the current medications were reviewed. REVIEW OF SYSTEMS: Positive for dizziness. No headache, nausea, or vomiting. No abdominal pain, diarrhea, or constipation. No polyuria or polydipsia. No edema. No fever. No rash. All other systems were reviewed. PHYSICAL EXAMINATION: GENERAL: Sarah is a middle-aged woman. She is obese, comfortable, not in any distress. NECK: Supple. No JVD. HEENT: Mucosa is dry. LUNGS: Air entry equal with few scattered rhonchi. HEART: S1 and S2 heard. No gallop. ABDOMEN: Obese, soft, nontender. EXTREMITIES: No edema. No rash. No clubbing. NEUROLOGIC: Alert and awake. No asterixis. VITAL SIGNS: Blood pressure today was 168/79, pulse 81, temperature 97. LABORATORY DATA: Hemoglobin 11.0, platelets 223, WBC 7.3. On admission, potassium 3.2, which is improved to 3.8, BUN 25, creatinine 1.83, blood sugar 495 on admission, calcium 6.2. Urinalysis on admission showed significant glycosuria of more than 1000 mg/dL, 1+ protein by dipstick, specific gravity 1.015, no blood. IMPRESSION: 1. 64-year-old woman with acute kidney injury, superimposed on chronic kidney disease in the setting of longstanding hypertension and diabetes mellitus. 2. Iris probably has stage 3 chronic kidney disease due to hypertensive diabetic kidney disease. 3. She has sustained acute kidney injury, most likely due to hypoperfusion. There is no evidence of obstruction. 4. Poorly controlled diabetes mellitus with glycosuria. 5. Hypertension. 6. Anemia. 7. Hypocalcemia. RECOMMENDATIONS: My recommendation is to obtain a spot urine for sodium, creatinine, and protein. I agree with holding chlorthalidone and losartan until renal function stabilizes. Check iron stores. Check intact PTH and vitamin D levels. Continue with amlodipine for control of blood pressure. We can add hydralazine temporarily to optimize her blood pressure. Once the creatinine returns to baseline, we can start her back on losartan for the renal protection. Further workup will be determined by the outcome of the baseline investigations. Thank you for allowing me to participate in the medical management of this patient. MD CONNOR Lujan/MODL / [id number]
--- NOTE | 2020-05-18 14:49 | MHC.CARE ---
Met with Pt to discuss her needs for a therapist. Pt was alert and oriented and agreeable to discuss her depression, loneliness and life stressors related to her adult children. Pt has also expressed a significant amount of stress related to her apartment and her removal of several rats from the apartment. Pts provider has been updated and a referral to counseling will be submitted.
[2020-05-18 16:29] LABS: Glucose, Whole Blood 280 mg/dL (60-115)
[2020-05-18] MEDS: Calcium + Vitamin D 250 MG TABLET 500 MG PO (16:40)
[2020-05-18 20:10] LABS: Glucose, Whole Blood 469 mg/dL (60-115)
--- NOTE | 2020-05-18 20:18 | PC.NURSE ---
Pt had a critical POC of 495. Md was made aware. Md advised to cover per sliding scale
[2020-05-18] MEDS: Montelukast Sodium 10 MG TABLET PO (20:31)
[2020-05-18] MEDS: Atorvastatin Calcium 80 MG TABLET PO (20:31)
[2020-05-18] MEDS: Insulin Glargine,Hum.rec.anlog 100 UNIT/ML 10 ML VIAL 15 UNIT SUBCUT (20:33)
[2020-05-18 20:53] LABS: Creatinine Urine 38.78 mg/dL; Total Protein Urine Random 112 mg/dL (<12)
[2020-05-19] VITALS (7 sets, daily range): BP systolic 111–142; BP diastolic 50–71; PULSE 62–85; RESP 16–18; TEMP 36.3–37.2; O2SAT 95–97
--- NOTE | 2020-05-19 | ECG_ITS ---
Test Reason : FOLLOW QT Blood Pressure : / mmHG Vent. Rate : 062 BPM Atrial Rate : 062 BPM P-R Int : 174 ms QRS Dur : 090 ms QT Int : 510 ms P-R-T Axes : 043 036 169 degrees QTc Int : 517 ms Normal sinus rhythm T wave abnormality, consider inferolateral ischemia Prolonged QT Abnormal ECG When compared with ECG of 17-MAY-2020 21:12, Premature atrial complexes are no longer Present Referred By: Akilah Sargent Electronically Signed By:NAY NELSON
[2020-05-19] MEDS: Heparin Sodium,Porcine 5,000 UNIT/ML VIAL 5000 UNIT SUBCUT ×3 (00:43→23:08)
[2020-05-19] MEDS: Sodium Chloride 0.45 % 1,000 ML 100 ML IVCONT (05:01)
[2020-05-19 05:34] LABS: Iron 36 mcg/dL (30-160); Percent Iron Saturation 16 % (15-50); Total Iron Binding Capacity 224 mcg/dL (228-428); Unsaturated Iron Binding 188 ug/dL
[2020-05-19] MEDS: Levothyroxine Sodium 25 MCG TABLET PO (06:31)
[2020-05-19 07:36] LABS: Glucose, Whole Blood 182 mg/dL (60-115)
[2020-05-19] MEDS: Insulin Lispro 100 UNIT/ML 3 ML VIAL SUBCUT ×4 (07:59→22:04)
[2020-05-19] MEDS: Pregabalin 150 MG CAPSULE PO ×2 (08:00→22:03)
[2020-05-19] MEDS: Cholecalciferol (Vitamin D3) 25 MCG TABLET PO (08:00)
[2020-05-19] MEDS: Metoprolol Tartrate 25 MG TABLET PO ×2 (08:00→22:05)
[2020-05-19] MEDS: Calcium + Vitamin D 250 MG TABLET 500 MG PO ×2 (08:00→17:12)
[2020-05-19] MEDS: Aspirin Enteric Coated 81 MG TABLET.DR PO (08:01)
[2020-05-19] MEDS: Clopidogrel Bisulfate 75 MG TABLET PO (08:01)
[2020-05-19] MEDS: Ferrous Sulfate 324 MG TABLET.DR PO (08:01)
[2020-05-19] MEDS: Loratadine 10 MG TABLET PO (08:01)
[2020-05-19] MEDS: Venlafaxine HCl ER 37.5 MG CAP.ER.24H PO (08:01)
[2020-05-19] MEDS: amLODIPine Besylate 2.5 MG TABLET PO (08:01)
[2020-05-19 09:58] LABS: Anion Gap 13 (12-20); Blood Urea Nitrogen 27 mg/dL (9-16); Calcium 6.3 mg/dL (8.4-10.2); Carbon Dioxide 24 mmol/L (22-29); Chloride 103 mmol/L (96-108); Creatinine Clr Calc Pharmacy 29.1; Estimated Glomerular Filt Rate 29; Glucose Random 215 mg/dL (60-115); Potassium 3.7 mmol/L (3.3-5.1); Sodium 136 mmol/L (135-145)
--- NOTE | 2020-05-19 10:14 | HO.PM.IMPN ---
Subjective Subjective Date of Service: 05/19/20 Interval History: f/u for orthostatic hypotension, MARY KATE admitted / Denies dizziness Good PO intake. No complaints this morning other than dry skin on feet. Review of Systems Review of Systems: Yes all other systems are reviewed and are negative Constitutional Constitutional: Denies chills and Denies fever(s) Cardiovascular Cardiovascular: Denies chest pain Respiratory Respiratory: Denies cough Gastrointestinal Gastrointestinal: Denies abdominal pain Physical Exam Vital Signs: Vital Signs: Last Vital Signs Temp 98.2 F 05/19/20 07:09 Pulse 74 05/19/20 07:09 Resp 17 05/19/20 07:09 BP 117/52 L 05/19/20 07:09 Pulse Ox 96 05/19/20 07:09 Body Mass Index 32.2 Const: General: cooperative, comfortable, no acute distress, alert and awake Nutritional Appearance: well nourished Orientation/consciousness: patient oriented x3 HENMT: Head: Yes normocephalic and Yes atraumatic Eyes: Sclerae: sclerae normal Chest: Chest palpation & inspection: normal inspection of the chest Resp: Effort & Inspection: normal respiratory effort and no respiratory distress Auscultation: clear to auscultation bilaterally Cardio: Rate: regular rate Rhythm: regular rhythm Heart sounds: Murmur heart sound present systolic GI: Palpation (GI): Soft to palpation and nontender Skin: General skin exam: no rashes or lesions noted Neuro: General: patient oriented x3 Cranial nerves: Yes CN's II-XII intact bilaterally and Yes Bilaterally intact EOM present Extrem: General: Yes normal to inspection Objective Data Current Medications Generic Name Dose Route Start Last Admin Trade Name Freedom PRN Reason Stop Dose Admin Acetaminophen 650 mg 05/17/20 21:40 Acetaminophen 325 Mg Tablet PO Q6H PRN Pain, Mild (Pain Scale 1-3) Amlodipine Besylate 2.5 mg 05/18/20 09:00 05/19/20 08:01 Amlodipine Besylate 2.5 Mg Tablet PO 2.5 mg DAILY JOEL Administration Protocol Aspirin 81 mg 05/18/20 09:00 05/19/20 08:01 Aspirin Enteric Coated 81 Mg Tablet. PO 81 mg DAILY JOEL Administration Atorvastatin Calcium 80 mg 05/18/20 21:00 05/18/20 20:31 Atorvastatin Calcium 80 Mg Tablet PO 80 mg BEDTIME JOEL Administration Calcium Carbonate/Cholecalciferol 500 mg 05/18/20 17:00 05/19/20 08:00 Calcium + Vitamin D 250 Mg Tablet PO 500 mg BIDWM JOEL Administration Cilostazol 100 mg 05/18/20 12:00 05/18/20 20:39 Cilostazol 100 Mg Tablet PO 100 mg BID@1200,2100 JOEL Administration Clopidogrel Bisulfate 75 mg 05/18/20 09:00 05/19/20 08:01 Clopidogrel Bisulfate 75 Mg Tablet PO 75 mg DAILY JOEL Administration Ferrous Sulfate 324 mg 05/18/20 09:00 05/19/20 08:01 Ferrous Sulfate 324 Mg Tablet. PO 324 mg DAILY JOEL Administration Heparin Sodium (Porcine) 5,000 unit 05/18/20 08:00 05/19/20 08:01 Heparin Sodium,Porcine 5,000 Unit/Ml Vial SUBCUT 5,000 unit Q8H JOEL Administration Sodium Chloride 1,000 mls @ 100 mls/hr 05/17/20 21:45 05/19/20 05:01 IVCONT 100 mls/hr .Q10H JOEL Administration Insulin Glargine 15 unit 05/18/20 21:00 05/18/20 20:33 Insulin Glargine,Hum.Rec.Anlog 100 Unit/Ml 10 Ml Vial SUBCUT 15 unit BEDTIME JOEL Administration Insulin Human Lispro 0 unit 05/18/20 07:30 05/19/20 07:59 Insulin Lispro 100 Unit/Ml 3 Ml Vial SUBCUT 2 unit QIDACHS JOEL Administration Protocol Levothyroxine Sodium 25 mcg 05/18/20 06:00 05/19/20 06:31 Levothyroxine Sodium 25 Mcg Tablet PO 25 mcg DAILY@0600 JOEL Administration Loratadine 10 mg 05/18/20 09:00 05/19/20 08:01 Loratadine 10 Mg Tablet PO 10 mg DAILY JOEL Administration Metoprolol Tartrate 25 mg 05/18/20 09:00 05/19/20 08:00 Metoprolol Tartrate 25 Mg Tablet PO 25 mg BID JOEL Administration Protocol Montelukast Sodium 10 mg 05/18/20 21:00 05/18/20 20:31 Montelukast Sodium 10 Mg Tablet PO 10 mg BEDTIME JOEL Administration Multi-Ingred Cream/Lotion/Oil/Oint 1 appl 05/19/20 09:20 Mineral Oil/Petrolatum,White 106 Gm Tube TOPICAL BEDTIME JOEL Pregabalin 150 mg 05/18/20 09:00 05/19/20 08:00 Pregabalin 150 Mg Capsule PO 150 mg BID JOEL Administration Senna 17.2 mg 05/17/20 21:40 Sennosides 8.6 Mg Tablet PO BEDTIME PRN Constipation Sodium Chloride 3 ml 05/18/20 00:00 05/19/20 08:00 0.9 % Sodium Chloride Flush 3 Ml Syringe IVFLUSH Not Given QSHIFT JOEL Venlafaxine HCl 37.5 mg 05/18/20 09:00 05/19/20 08:01 Venlafaxine Hcl Er 37.5 Mg Cap.Er.24h PO 37.5 mg DAILY JOEL Administration Vitamin D 25 mcg 05/18/20 09:00 05/19/20 08:00 Cholecalciferol (Vitamin D3) 25 Mcg Tablet PO 25 mcg DAILY JOEL Administration Zolpidem Tartrate 5 mg 05/17/20 21:40 Zolpidem Tartrate 5 Mg Tablet PO BEDTIME PRN Insomnia Labs CBC & Chem 7: 05/18/20 05:18 05/19/20 04:50 Microbiology Microbiology Results: Microbiology 05/17/20 22:23 Blood - Venous Blood Culture - Preliminary No growth after 24 hours. 05/17/20 21:36 Blood - Venous Blood Culture - Preliminary No growth after 24 hours. Assessment and Plan (1) Acute kidney injury: Problem details: MARY KATE on CKD MARY KATE due to dehydration Cr is improving Hold Losartan for now Keep I > O ; s/p IV NS Status: Acute (2) Hypocalcemia: Status: Acute (3) Autonomic orthostatic hypotension: Status: Acute Assessment and Plan: 64-year-old female with a past medical history of hypertension, hyperlipidemia, diabetes, diabetic neuropathy, anemia, presented to the hospital with a chief complaint of dizziness. Noted to be orthostatic hypotension and MARY KATE. MARY KATE on CKD3 No recent baseline. SCr trending down from 2.08 to 1.74 -Nephrology following -losartan on hold. Dizziness: Resolved. Likely in the setting of orthostatic hypotension on admission. Improved with IVF. Troponins x2 negative. Prolonged QTC: Likely in setting of hypocalcemia. Monitor on telemetry. Repeat EKG today with persistent QTC 517ms Hypocalcemia: Repleted. ICalcium PTH level pending. Follow, and give additional supplement, asymptomatic at this point HTN BP controlled -Continue lopressor, norvasc -losartan on holdfor MARY KATE hypothyroidism -continue synthroid Diabetes with hyperglycemia. POCs improving -Continue lantus 15U QHS -SSI, POCs ?PVD on ASA, plavix, pletal HLD Continue statin Black stools: Guaiac negative. Likely in the setting of iron tablets use. Diabetic neuropathy: Continue home pregabalin. Mood continue effexor DVT prophylaxis: Subcu heparin Code status: Full code
[2020-05-19 11:46] LABS: Glucose, Whole Blood 252 mg/dL (60-115)
--- NOTE | 2020-05-19 12:11 | PM.PNNEP ---
Subjective Subjective Date of Service: 05/19/20 Interval history: Events noted Feeling better Physical Exam Vital Signs: Vital Signs: Last Vital Signs Temp 97.4 F 05/19/20 11:08 Pulse 62 05/19/20 11:08 Resp 17 05/19/20 11:08 BP 117/59 L 05/19/20 11:08 Pulse Ox 97 05/19/20 11:08 Body Mass Index 32.2 Const: General: alert Orientation/consciousness: oriented to person Neck: Neck: Yes supple Cardio: Heart sounds: no murmurs and no rubs GI: Palpation (GI): Soft to palpation Auscultation: normal bowel sounds Neuro: General: oriented to person Motor exam (neuro): No Asterixis during motor activity present Objective Data Labs CBC & Chem 7: 05/18/20 05:18 05/19/20 04:50 Labs: Laboratory Results - last 24 hr 05/18/20 05/18/20 05/18/20 16:25 20:00 20:13 Sodium Potassium Chloride Carbon Dioxide Anion Gap BUN Creatinine Estim Creat Clear Calc Estimated GFR POC Glucose 280 H 469 H* Random Glucose Calcium Iron TIBC % Saturation Unsat Iron Binding U Random Total Protein 112 H Ur Random Sodium 52.0 Urine Creatinine 38.78 05/19/20 05/19/20 05/19/20 04:50 07:11 11:10 Sodium 136 Potassium 3.7 Chloride 103 Carbon Dioxide 24 Anion Gap 13 BUN 27 H Creatinine 1.74 H Estim Creat Clear Calc 29.1 Estimated GFR 29 POC Glucose 182 H 252 H Random Glucose 215 H D Calcium 6.3 L Iron 36 TIBC 224 L % Saturation 16 Unsat Iron Binding 188 U Random Total Protein Ur Random Sodium Urine Creatinine Microbiology Microbiology Results: Microbiology 05/17/20 22:23 Blood - Venous Blood Culture - Preliminary No growth after 24 hours. 05/17/20 21:36 Blood - Venous Blood Culture - Preliminary No growth after 24 hours. Assessment & Plan Assessment and plan (1) Acute kidney injury: Problem details: MARY KATE on CKD MARY KATE due to dehydration Cr is improving Hold Losartan for now Keep I > O ; s/p IV NS Status: Acute Time Spent With Patient Time: Total time spent is greater than 50% in coordination of care (as documented) at patient's floor/unit and/or counseling patient: Procedures Date of Service Date of Service: 05/19/20
[2020-05-19] MEDS: cilostazoL 100 MG TABLET PO ×2 (12:20→22:09)
[2020-05-19 15:36] LABS: Calcium, Ionized 3.5 mg/dL (4.8-5.6)
[2020-05-19] MEDS: 0.9 % Sodium Chloride Flush 3 ML SYRINGE IVFLUSH ×2 (16:03→22:04)
[2020-05-19 16:40] LABS: Glucose, Whole Blood 303 mg/dL (60-115)
[2020-05-19 20:51] LABS: Glucose, Whole Blood 340 mg/dL (60-115)
[2020-05-19] MEDS: Atorvastatin Calcium 80 MG TABLET PO (22:03)
[2020-05-19] MEDS: Montelukast Sodium 10 MG TABLET PO (22:03)
[2020-05-19] MEDS: Insulin Glargine,Hum.rec.anlog 100 UNIT/ML 10 ML VIAL 15 UNIT SUBCUT (22:04)
[2020-05-19] MEDS: Mineral Oil/Petrolatum,White 106 GM Tube 1 APPL TOPICAL (23:05)
[2020-05-20 03:43] VITALS: BP 117/53; PULSE 83; RESP 18; TEMP 36.7; O2SAT 97
[2020-05-20] MEDS: Levothyroxine Sodium 25 MCG TABLET PO (05:57)
[2020-05-20 06:36] LABS: Anion Gap 14 (12-20); Blood Urea Nitrogen 32 mg/dL (9-16); Calcium 6.5 mg/dL (8.4-10.2); Carbon Dioxide 23 mmol/L (22-29); Chloride 100 mmol/L (96-108); Creatinine Clr Calc Pharmacy 24.6; Estimated Glomerular Filt Rate 24; Glucose Random 479 mg/dL (60-115); Sodium 133 mmol/L (135-145)
[2020-05-20] MEDS: Cholecalciferol (Vitamin D3) 25 MCG TABLET PO (07:40)
[2020-05-20] MEDS: Calcium + Vitamin D 250 MG TABLET 500 MG PO (07:41)
[2020-05-20] MEDS: Ferrous Sulfate 324 MG TABLET.DR PO (07:41)
[2020-05-20] MEDS: Pregabalin 150 MG CAPSULE PO (07:41)
[2020-05-20] MEDS: Heparin Sodium,Porcine 5,000 UNIT/ML VIAL 5000 UNIT SUBCUT (07:42)
[2020-05-20] MEDS: Aspirin Enteric Coated 81 MG TABLET.DR PO (07:42)
[2020-05-20] MEDS: Loratadine 10 MG TABLET PO (07:42)
[2020-05-20] MEDS: Venlafaxine HCl ER 37.5 MG CAP.ER.24H PO (07:42)
[2020-05-20] MEDS: Insulin Lispro 100 UNIT/ML 3 ML VIAL SUBCUT ×2 (07:46→11:28)
[2020-05-20 07:47] LABS: Glucose, Whole Blood 338 mg/dL (60-115)
[2020-05-20 08:00] VITALS: BP 115/64; PULSE 78; RESP 20; TEMP 36.2; O2SAT 100
[2020-05-20 09:39] VITALS: BP 115/64; PULSE 78
[2020-05-20] MEDS: amLODIPine Besylate 2.5 MG TABLET PO (09:39)
[2020-05-20] MEDS: Clopidogrel Bisulfate 75 MG TABLET PO (09:39)
[2020-05-20 09:40] VITALS: BP 115/64; PULSE 78
[2020-05-20] MEDS: 0.9 % Sodium Chloride Flush 3 ML SYRINGE IVFLUSH (09:40)
[2020-05-20] MEDS: Metoprolol Tartrate 25 MG TABLET PO (09:40)
--- NOTE | 2020-05-20 11:05 | MHC.CM.PN ---
Home with services ([facility])is the goal for dc. Per ROUNDS discussion, Patient is not yet ready for dc r/t MARY KATE. CM will follow for dc planning and possible need to adjust the dc plan.
[2020-05-20 11:20] LABS: Glucose, Whole Blood 431 mg/dL (60-115)
[2020-05-20 11:31] VITALS: BP 121/54; PULSE 62; RESP 20; TEMP 36.2; O2SAT 100
--- NOTE | 2020-05-20 11:31 | PM.PNNEP ---
Subjective Subjective Date of Service: 05/22/20 Interval history: Events noted Feeling better Physical Exam Vital Signs: Vital Signs: Last Vital Signs Temp 97.2 F 05/20/20 08:00 Pulse 78 05/20/20 09:40 Resp 20 05/20/20 08:00 BP 115/64 05/20/20 09:40 Pulse Ox 100 05/20/20 08:00 Body Mass Index 32.2 Objective Data Labs CBC & Chem 7: 05/18/20 05:18 05/20/20 05:17 Labs: Laboratory Results - last 24 hr 05/17/20 05/19/20 05/19/20 20:49 11:10 16:37 Sodium Potassium Chloride Carbon Dioxide Anion Gap BUN Creatinine Estim Creat Clear Calc Estimated GFR POC Glucose 252 H 303 H Random Glucose Calcium Ionized Calcium 3.5 L 05/19/20 05/20/20 05/20/20 20:47 05:17 07:43 Sodium 133 L Potassium 4.0 Chloride 100 Carbon Dioxide 23 Anion Gap 14 BUN 32 H Creatinine 2.06 H Estim Creat Clear Calc 24.6 Estimated GFR 24 POC Glucose 340 H 338 H Random Glucose 479 H* Calcium 6.5 L Ionized Calcium 05/20/20 11:16 Sodium Potassium Chloride Carbon Dioxide Anion Gap BUN Creatinine Estim Creat Clear Calc Estimated GFR POC Glucose 431 H* Random Glucose Calcium Ionized Calcium Microbiology Microbiology Results: Microbiology 05/17/20 22:23 Blood - Venous Blood Culture - Preliminary No growth after 48 hours. 05/17/20 21:36 Blood - Venous Blood Culture - Preliminary No growth after 48 hours. Assessment & Plan Time Spent With Patient Time: Total time spent is greater than 50% in coordination of care (as documented) at patient's floor/unit and/or counseling patient: Procedures Date of Service Date of Service: 05/20/20
--- NOTE | 2020-05-20 11:48 | P.DS_ITS ---
DS: Providers Provider Date of Service: 05/20/20 Date of admission: 05/17/20 21:40 Primary care physician: Unknown Physician Consults: 05/17/20 21:45 Consult to Nephrology Routine Consulting Provider: Stew iLu Reason for consultation: mary kate 05/18/20 11:08 Consult to Care Team Routine Comment: Reason for consultation: patient reports that she has aniety/depression /woud like to see bethany puga DS: Diagnosis Discharge Diagnosis (1) Acute kidney injury: Status: Acute Problem details: MARY KATE on CKD MARY KATE due to dehydration Cr is improving Hold Losartan for now Keep I > O ; s/p IV NS (2) Hypocalcemia: Status: Acute (3) Autonomic orthostatic hypotension: Status: Acute DS: Medications Discharge Medications Home Medications: Home Medications Medication Instructions Recorded Confirmed amlodipine 1 tab PO QAM 05/17/20 05/17/20 aspirin 1 tab PO QAM 05/17/20 05/17/20 atorvastatin 1 tab PO BEDTIME 05/17/20 05/17/20 chlorthalidone 1 tab PO QAM 05/17/20 05/17/20 cholecalciferol (vitamin D3) 1 cap PO QAM 05/17/20 05/17/20 [Vitamin D3] cilostazol 100 mg PO BID@1200,2100 05/17/20 05/17/20 clopidogrel 1 tab PO QAM 05/17/20 05/17/20 ferrous sulfate 1 tab PO QAM 05/17/20 05/17/20 insulin lispro [Humalog KwikPen 10 unit SUBCUT TIDAC 05/17/20 05/17/20 Insulin] levothyroxine 1 tab PO QAM 05/17/20 05/17/20 loratadine 1 tab PO QAM 05/17/20 05/17/20 losartan 1 tab PO QAM 05/17/20 05/17/20 metoprolol tartrate 1 tab PO BID 05/17/20 05/17/20 montelukast 1 tab PO BEDTIME 05/17/20 05/17/20 pregabalin 1 cap PO BID 05/17/20 05/17/20 venlafaxine 1 cap PO QAM 05/17/20 05/17/20 DS: Summary Hospital Course Hospital Course: History of presenting illness Chief Complaint: Dizziness 64-year-old female with a past medical history of hypertension, hyperlipidemia, diabetes, diabetic neuropathy, asthma/COPD, anemia on iron tablets presented to the hospital with a chief complaint of generalized weakness/dizziness going on for the past 2-3 weeks. Also complains of dark stools. Complains of neuropathy pain in her feet. Denies any chest pain palpitations lightheadedness or dizziness. Denies any fever chills cough. Denies any GI or symptoms. Review of all other systems is negative except mentioned above ER course: Per ER team guaiac test was negative. Exam nonfocal. Troponins x2 negative. Patient was orthostatic positive; likely contributing to dizziness; given IV fluids in the ER. Noted to have hypocalcemia and MARY KATE. Given calcium supplementation. QTC was prolonged. ER team also mentioned that patient fingerstick glucose was in 600 on presentation given regular insulin IV x2. Patient not in DKA. Admitted to the hospital for further management. Hospital course 64-year-old female with a past medical history of hypertension, hyperlipidemia, diabetes, diabetic neuropathy, anemia, presented to the hospital with a chief complaint of dizziness. Noted to be orthostatic hypotension and MARY KATE. Patient presented with dizziness and diagnosed to have MARY KATE on CKD3 and orthostatic hypotension, patient treated with IV fluids, chlorthalidone and losartan were held, currently patient blood pressure has improved her serum creatinine remains elevated but close to baseline, since patient wishes to be discharged home, case discussed with Dr. Bowden he recommend to discharge patient home and he will follow her as outpatient in next 1 week will continue to hold losartan and diuretics, encourage by mouth intake , further workup for dizziness including troponins are negative, EKG revealed Prolonged QTC Likely in setting of hypocalcemia. Tele monitor showed no arrhythmia no further treatment required. Noted to have black stools but guaiac negative likely related to use of iron. Hypocalcemia: Persistently low calcium likely due to hyperparathyroidism, continue potassium replacement outpatient follow-up with Nephrology, parathyroid hormone level remains pending HTN BP currently stable continue Lopressor and Norvasc continue to hold losartan hypothyroidism continue synthroid Diabetes with hyperglycemia. Recommended diabetic diet and Humalog insulin before meals ?PVD continue ASA, plavix, and pletal HLD Continue statin Diabetic neuropathy: Continue home pregabalin. Mood continue effexor Time Spent with Patient Time attestation: Total time spent providing and/or coordinating discharge services: Discharge coordination time: Greater than 30 minutes Physical Exam Vital Signs: Vital Signs: Last Vital Signs Temp 97.1 F 05/20/20 11:31 Pulse 62 05/20/20 11:31 Resp 20 05/20/20 11:31 BP 121/54 L 05/20/20 11:31 Pulse Ox 100 05/20/20 11:31 Body Mass Index 32.2 On examination General patient resting comfortably in no acute distress awake alert Lungs clear to auscultation bilaterally no respiratory distress Cardiovascular regular rate rhythm systolic murmur Abdomen soft nontender bowel sounds are audible Extremities without clubbing cyanosis or edema skin no rash Neuro patient awake alert oriented x3, speech clear. DS: Data Data Completed and Pending Labs on day of discharge: Laboratory Results - last 24 hr 05/17/20 05/19/20 05/19/20 20:49 16:37 20:47 Sodium Potassium Chloride Carbon Dioxide Anion Gap BUN Creatinine Estim Creat Clear Calc Estimated GFR POC Glucose 303 H 340 H Random Glucose Calcium Ionized Calcium 3.5 L 05/20/20 05/20/20 05/20/20 05:17 07:43 11:16 Sodium 133 L Potassium 4.0 Chloride 100 Carbon Dioxide 23 Anion Gap 14 BUN 32 H Creatinine 2.06 H Estim Creat Clear Calc 24.6 Estimated GFR 24 POC Glucose 338 H 431 H* Random Glucose 479 H* Calcium 6.5 L Ionized Calcium Preliminary micro results at discharge 05/17/20 22:23 Blood Culture - Preliminary Blood - Venous No growth after 48 hours. 05/17/20 21:36 Blood Culture - Preliminary Blood - Venous No growth after 48 hours. Discharge Plan Discharge Patient Disposition: Home Health Service Referrals: Physician,Unknown [Primary Care Provider] - Discharge Medications: Continued cilostazol 100 mg tablet 100 mg PO BID@1200,2100 RF: 0 atorvastatin 80 mg tablet 1 tab PO BEDTIME RF: 0 venlafaxine 37.5 mg capsule,extended release 24hr 1 cap PO QAM RF: 0 amlodipine 2.5 mg tablet 1 tab PO QAM RF: 0 clopidogrel 75 mg tablet 1 tab PO QAM RF: 0 aspirin 81 mg tablet,delayed release (DR/EC) 1 tab PO QAM RF: 0 levothyroxine 25 mcg tablet 1 tab PO QAM RF: 0 ferrous sulfate 325 mg (65 mg iron) tablet 1 tab PO QAM RF: 0 montelukast 10 mg tablet 1 tab PO BEDTIME RF: 0 loratadine 10 mg tablet 1 tab PO QAM RF: 0 cholecalciferol (vitamin D3) [Vitamin D3] 25 mcg (1,000 unit) capsule 1 cap PO QAM RF: 0 insulin lispro [Humalog KwikPen Insulin] 100 unit/mL insulin pen 10 unit subcut TIDAC RF: 0 metoprolol tartrate 25 mg tablet 1 tab PO BID RF: 0 pregabalin 150 mg capsule 1 cap PO BID RF: 0 Discontinued chlorthalidone 25 mg tablet 1 tab PO QAM RF: 0 losartan 100 mg tablet 1 tab PO QAM RF: 0 Discharge Orders: Discharge Order (Routine); Ordered 05/20/20 Ordered By: Oumar Gross Diet: diabetic diet and low fat, low cholesterol Activity on Discharge: As tolerated Stand Alone Forms: Patient Portal Discharge page Care Plan Goals: Take all medication as prescribed, hold losartan, check blood sugars before nafisa ls and administer insulin Health Concerns: Hypocalcemia and renal failure follow-up with Nephrology Plan of Treatment: Follow-up with primary care physician and Nephrology in 1 week
--- NOTE | 2020-05-20 13:20 | MHC.CM.PN ---
Patient has been medically cleared for dc to home today, with services. Per LAVINIA MURRAY/Tiesha @ [phone], [facility] will do home PT and permission has been given for [facility] to provide RN. Last IMM addressed on 05/18/20.
[2020-05-23 13:47] LABS: Calcium (PTHI) 6.3 mg/dL (8.6-10.4); PTHI 70 pg/mL (14-64)
== END 2020-05-20 14:54 | disposition home health service (06) | DRG 684 ==
LOC: HO.ED 20:46 → HO.EDOVER 22:21 → HO.S3 22:36 → HO.IMC 05-19 10:35
PROVIDERS: Internal Medicine; Internal Medicine Hypertension Specialist; Physician Assistant Medical; Admitting Provider Hospitalist; Emergency Provider Emergency Medicine; PCP Family Medicine; Visit Provider Hospitalist
DX: N17.9 Acute kidney failure, unspecified (principal); I95.1 Orthostatic hypotension; E83.51 Hypocalcemia; E11.42 Type 2 diabetes mellitus with diabetic polyneuropathy; R94.31 Abnormal electrocardiogram [ECG] [EKG]; E11.65 Type 2 diabetes mellitus with hyperglycemia; E78.5 Hyperlipidemia, unspecified; I12.9 Hypertensive chronic kidney disease with stage 1 through stage 4 chronic kidney disease, or unspecified chronic kidney disease; E11.22 Type 2 diabetes mellitus with diabetic chronic kidney disease; N18.30 Chronic kidney disease, stage 3 unspecified; F17.210 Nicotine dependence, cigarettes, uncomplicated; E66.9 Obesity, unspecified; Z68.32 Body mass index [BMI] 32.0-32.9, adult; Z71.6 Tobacco abuse counseling; E86.0 Dehydration; E11.51 Type 2 diabetes mellitus with diabetic peripheral angiopathy without gangrene; D63.1 Anemia in chronic kidney disease; E03.9 Hypothyroidism, unspecified; Z20.822 Contact with and (suspected) exposure to COVID-19; Z79.4 Long term (current) use of insulin; Z79.02 Long term (current) use of antithrombotics/antiplatelets; Z79.82 Long term (current) use of aspirin; Z79.890 Hormone replacement therapy; Z79.899 Other long term (current) drug therapy
CPT/HCPCS: 36415; 80048; 80076; 81001; 82272; 82330; 82947; 83540; 83605; 83970; 84156; 84300; 84443; 84484; 85025; 85610; 86850; 86900; 87040; 87635; 93005; 96374; 96376; 99285; J0610

== ENCOUNTER 2020-05-27 12:45 | Outpatient (RCR) | payer OTHER, SELFPAY | END 2020-09-28 12:57 | disposition home or self-care (01) | LOC: HO.WCC 12:45 | PROVIDERS: PCP Family Medicine; Visit Provider Physician Assistant | DX: E11.621 Type 2 diabetes mellitus with foot ulcer (principal); L97.522 Non-pressure chronic ulcer of other part of left foot with fat layer exposed; E11.51 Type 2 diabetes mellitus with diabetic peripheral angiopathy without gangrene; E11.40 Type 2 diabetes mellitus with diabetic neuropathy, unspecified; I10 Essential (primary) hypertension; I25.2 Old myocardial infarction; R60.0 Localized edema | CPT/HCPCS: 11042; 97597; 99212; 99214 ==

== ENCOUNTER 2020-06-09 13:38 | Outpatient (REF) | payer OTHER, SELFPAY ==
--- NOTE | ~2020-06-09 | US_ITS ---
EXAMINATION: BILATERAL LOWER EXTREMITY ARTERIAL DUPLEX DOPPLER ULTRASOUND CLINICAL INFORMATION: Peripheral vascular disease. COMPARISON: None TECHNIQUE: Real-time ultrasound and Doppler techniques (integrating B-mode 2D vascular images, Doppler spectral analysis and color flow Doppler imaging) were utilized to interrogate the lower extremities bilaterally. FINDINGS: There is calcified plaque seen throughout the right and left lower extremity arterial system. Right Lower Extremity: Common femoral artery has a biphasic waveform with peak systolic velocity of 109 cm/s with some spectral broadening. The profunda femoral artery has a biphasic waveform with peak systolic velocity of 149 cm/s. Proximal superficial femoral artery has a monophasic waveform with peak systolic velocity of 179 cm/s. Mid superficial femoral artery has a monophasic waveform with peak systolic velocity of 107 cm/s. Distal superficial femoral artery has a monophasic waveform with peak systolic velocity of 262 cm/s. Proximal popliteal artery has a monophasic waveform with peak systolic velocity of 298 cm/s. The proximal peroneal artery has a monophasic waveform with peak systolic velocity of 68 cm/s. The proximal posterior tibial artery has a monophasic waveform with peak systolic velocity 136 cm/s. Left Lower Extremity: Common femoral artery has a biphasic waveform with peak systolic velocity of 203 cm/s. The profunda femoral artery has a biphasic waveform with peak systolic velocity of 209 cm/s. The proximal superficial femoral artery has a monophasic waveform with peak systolic velocity of 137 cm/s. The mid superficial femoral artery has a monophasic waveform with peak systolic velocity of 500 cm/s and spectral broadening. The distal superficial femoral artery has a monophasic waveform with peak systolic velocity of 79 cm/s. The popliteal artery has a monophasic waveform with peak systolic velocity of 81 cm/s. Distal popliteal artery has a monophasic waveform with peak systolic velocity of 66 cm/s. Left distal posterior tibial artery has a monophasic waveform with peak systolic velocity of 68 cm/s. US/US arterial duplex LE BI IMPRESSION: Hemodynamically significant severe peripheral vascular disease bilaterally most prominent within the mid and distal superficial femoral arteries as well as in the proximal superficial femoral arteries just distal to common femoral artery bifurcation.
== END 2020-06-09 13:39 | disposition home or self-care (01) ==
LOC: HO.US 13:38
PROVIDERS: Visit Provider Physician Assistant
DX: I73.9 Peripheral vascular disease, unspecified (principal)
CPT/HCPCS: 93925

== ENCOUNTER → 2020-06-23 13:06 | Outpatient (BNVA) | payer OTHER, SELFPAY | PROVIDERS: PCP Family Medicine; Visit Provider Surgery Vascular Surgery | DX: I73.9 Peripheral vascular disease, unspecified (principal) | CPT/HCPCS: 99202 ==

== ENCOUNTER 2020-06-25 12:18 | Emergency (ER) | payer OTHER, SELFPAY ==
--- NOTE | ~2020-06-25 | US_ITS ---
EXAMINATION: US VENOUS ULTRASOUND WITH DOPPLER LOWER EXTREMITY, LEFT CLINICAL INFORMATION: Swelling. Pain. Rule out DVT. COMPARISON: None TECHNIQUE: Ultrasound of the deep veins is performed from the hip to the calf with compression sonography and color and pulse Doppler assessment. Spectral analysis with color-flow imaging is performed. FINDINGS: There is normal venous compression and respiratory variation and augmented flow. The visualized common femoral vein, superficial femoral vein, profunda femoral vein, popliteal vein, and the trifurcation region shows no evidence of deep venous thrombosis. There is no significant popliteal fossa cyst. If the patient's symptoms persist, followup ultrasound in 5 days 7 days might be of value to exclude proximal propagation from a non-visualized calf vein. US/US venous duplex LE IMPRESSION: No DVT demonstrated in the left lower extremity.
--- NOTE | ~2020-06-25 | XR_ITS ---
EXAMINATION: XR FOOT, LEFT CLINICAL INFORMATION: Chronic wound with drainage COMPARISON: 10/05/2019 TECHNIQUE: AP, lateral, and oblique views of the left foot. FINDINGS: There is a soft tissue defect along the medial aspect of the great toe. No underlying osseous abnormality to suggest osteomyelitis. There are mild degenerative changes throughout the midfoot, similar to the previous study, as well as a heel spur and diffuse vascular calcifications. XR/XR foot LT min 3V IMPRESSION: Soft tissue defect along the medial aspect of the great toe. No acute osseous abnormality.
[2020-06-25 12:25] VITALS: BP 172/74; BP 187/83; PULSE 85; PULSE 94; RESP 14; TEMP 36.6; O2SAT 100; O2SAT 99; BMI 32.2
[2020-06-25 12:33] VITALS: BP 187/83; PULSE 85; RESP 14; TEMP 36.6; O2SAT 99
--- NOTE | 2020-06-25 13:07 | ED.GENADULT ---
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 She was seen by Dr. Butler from [facility] on 06/23 for bilateral great toe wounds that are not healing and plans were made for an angiogram and possible angioplasty. She reports the pain in her left foot has been worsening and she has not been able to sleep. She states the great toe wound has been there for months and she has been going [facility] with no improvement. She noticed some foul smelling drainage today. She also noticed some new swelling to her lower foot and new redness to her lower leg. Pain is at rest and worsens with exertion. She denies fevers at home but admits to chills. MD complaint: left lower leg pain Onset (ago): day(s) (3) Location: left and lower extremity Radiation: proximal Severity: severe Quality: aching and sharp Pain Consistency: constant Relieving factors: none Exacerbating factors: movement Associated symptoms: fever/chills and weakness Treatments prior to arrival: none Related Data Home Medications Medication Instructions Recorded Confirmed amlodipine 1 tab PO QAM 05/17/20 05/17/20 aspirin 1 tab PO QAM 05/17/20 05/17/20 atorvastatin 1 tab PO BEDTIME 05/17/20 05/17/20 cholecalciferol (vitamin D3) 1 cap PO QAM 05/17/20 05/17/20 [Vitamin D3] cilostazol 100 mg PO BID@1200,2100 05/17/20 05/17/20 clopidogrel 1 tab PO QAM 05/17/20 05/17/20 ferrous sulfate 1 tab PO QAM 05/17/20 05/17/20 insulin lispro [Humalog KwikPen 10 unit SUBCUT TIDAC 05/17/20 05/17/20 Insulin] levothyroxine 1 tab PO QAM 05/17/20 05/17/20 loratadine 1 tab PO QAM 05/17/20 05/17/20 metoprolol tartrate 1 tab PO BID 05/17/20 05/17/20 montelukast 1 tab PO BEDTIME 05/17/20 05/17/20 pregabalin 1 cap PO BID 05/17/20 05/17/20 venlafaxine 1 cap PO QAM 05/17/20 05/17/20 Previous Rx's Medication Instructions Recorded calcium carbonate-vitamin D3 1 tab PO BID #60 tab 05/20/20 [Calcium 500 + D] cephalexin 500 mg PO Q8H #21 cap 06/25/20 Allergies Allergy/AdvReac Type Severity Reaction Status Date / Time ALLYSSA Inhibitors Allergy Mild COUGH Verified 06/23/20 13:06 [ALLYSSA INHIBITORS] cilostazol [CILOSTAZOL] Allergy Mild COUGH Verified 06/23/20 13:06 Review of Systems Review of Systems: Constitutional: No Fever, + Chills ENT/Mouth: No sore throat, No Rhinorrhea Cardiovascular: No Chest Pain, No SOB, No Orthopnea, + Edema Respiratory: No Cough, No Sputum, No Wheezing, No dyspnea Gastrointestinal: No Nausea, No Vomiting, No Diarrhea, No abdominal Pain Genitourinary: No Dysuria, No Urinary Frequency, No Hematuria Musculoskeletal: + joint pain, + Myalgias Skin: + Skin Lesions, No rash Neuro: + Weakness (generalized), No Numbness, No Dizziness, No Headache Psych: No Anxiety/Panic, No Depression Heme/Lymph: No Bruising, No Lymphadenopathy Endocrine: No Polyuria, No Polydipsia PMFSH Past Medical History Attestation statement: The following information was validated with the patient. Medical History Anemia Asthma-COPD overlap syndrome Diabetes HTN (hypertension) Hypercholesteremia Hypothyroidism Neuropathy Social History Social History Household Members: None Housing: Apartment Smoking Status: Light tobacco smoker Tobacco Type: Cigarette Use of substances other than those prescribed or required for medical reasons: No Advance Directives: Yes Advance Directives Information Provided: Yes Advance Directives on File: No service: No Current occupational status: disabled Physical Exam Vital Signs: Vital Signs: Last Vital Signs Temp 98.3 F 06/25/20 14:31 Pulse 77 06/25/20 14:31 Resp 14 06/25/20 14:31 BP 175/84 H 06/25/20 14:31 Pulse Ox 99 06/25/20 12:33 Body Mass Index 32.2 Appearance: Alert. Oriented X3. No acute distress. Eyes: Pupils equal, round and reactive to light. ENT: Pharynx normal. Neck: Normal inspection. Neck supple. CVS: Normal heart rate and rhythm. Pulses normal. Respiratory: No respiratory distress. Breath sounds normal. Abdomen: Soft and nontender. +BS x4 Skin: Skin warm and dry. Normal skin color. Normal skin turgor. No rashes. Extremities: left lower extremity with some mild erythema of ankle to lower 1/3 of left lower leg, mild, 1+ pitting dependent edema of left ankle with tenderness, left gret toe with medial 1cm scabbing wound with dryness and small amount of drainage appreciated beneath the skin, unable to express. poor sensation to light touch, warm and well perfused with 1+ DP pulse. scabbing to left lateral foot below 5th digit base without erythema or tenderness. Neuro: Oriented X 3. Non-focal Course Course Course Narrative: 64 y/o female with history of poorly controlled DM, nonhealing LE wounds and PVD presenting with LLE pain with slight edema, and erythema on exam. Clinical presentation is consistent with early/mild cellulitis. Will get labs, XR to r/o osteomyelitis and U/S to r/o DVT. She does not appear to be septic at this time. Blood cultures ordered and empiric antibiotics ordered for cellulitis. Reevaluation(s) Reevaluation #1: Glucose 500s without signs of DKA. Will give SC insulin and reassess. No osteo on XR. Lactic acid is normal. CKD at baseline. Reevaluation #2: Spoke with Dr. Butler re: plans for angio and possible stent on Saturday. Given her clinical picture is NOT consistent with severe infection or sepsis, will plan to d/c home on PO keflex and have him re-evaluate her on Saturday. He will decide on Saturday if he wants to keep her in the hospital after the procedure. Stable for discharge. Consultations Consultation #1: Dr Butler - [facility] Medical Decision Making Lab Data Result diagrams: 06/25/20 13:23 06/25/20 13:23 Labs: Lab Results 06/25/20 06/25/20 06/25/20 Range/Units 13:23 13:23 13:23 WBC 9.2 (4.8-10.8) X10*3/uL RBC 3.66 L (4.20-5.50) X10*6/uL Hgb 10.4 L (12.0-16.0) g/dl Hct 33.0 L (37-47) % MCV 90.2 (80-98) fL MCH 28.4 (27.0-33.0) pg MCHC 31.5 (31.0-35.0) g/dl RDW 14.0 (11.0-16.0) % Plt Count 215 (160-400) X10*3/uL MPV 10.4 (9.4-12.3) fL Immature Gran % (Auto) 0.3 (0.0-0.4) % Neut % (Auto) 74.3 H (45-73) % Lymph % (Auto) 15.0 L (20-40) % Jennings % (Auto) 7.3 (2-11) % Eos % (Auto) 2.6 (0-4) % Baso % (Auto) 0.5 (0-2) % Lymph # (Auto) 1.4 (1.2-4.9) X10*3/uL Jennings # (Auto) 0.7 (0.1-1.2) X10*3/uL Eos # (Auto) 0.2 (0.0-0.4) X10*3/uL Baso # (Auto) 0.1 (0.0-0.2) X10*3/uL Abs Immat Gran (auto) 0.03 (0.00-0.03) X10*3/uL Absolute Neuts (auto) 6.8 (2.0-8.3) X10*3/uL Absolute Nucleated RBC 0.000 (0.0-0.012) X10*3/uL Nucleated RBC % (auto) 0.0 (0.0-0.2) /100WBC ESR 79 H (0-20) MM/HR PT 11.6 (10.8-13.0) SEC INR 1.0 (0.9-1.1) APTT 32.5 (24.1-38.0) SEC Hold Blue Top SEE NOTE Sodium (135-145) mmol/L Potassium (3.3-5.1) mmol/L Chloride (96-108) mmol/L Carbon Dioxide (22-29) mmol/L Anion Gap (12-20) BUN (9-16) mg/dL Creatinine (0.5-1.4) mg/dL Estim Creat Clear Calc Estimated GFR POC Glucose (60-115) mg/dL Random Glucose (60-115) mg/dL Lactic Acid (0.5-2.0) mmol/L Calcium (8.4-10.2) mg/dL Magnesium (1.6-2.6) mg/dL Total Bilirubin (0.0-1.0) mg/dL Direct Bilirubin (0.0-0.5) mg/dL AST (5-31) U/L ALT (0-31) U/L Alkaline Phosphatase (39-117) U/L C-Reactive Protein (< or = 0.50) mg/dL B-Natriuretic Peptide (<100) pg/mL Total Protein (6.5-8.0) g/dL Albumin (3.5-5.0) g/dL 06/25/20 06/25/20 06/25/20 Range/Units 13:23 13:23 13:23 WBC (4.8-10.8) X10*3/uL RBC (4.20-5.50) X10*6/uL Hgb (12.0-16.0) g/dl Hct (37-47) % MCV (80-98) fL MCH (27.0-33.0) pg MCHC (31.0-35.0) g/dl RDW (11.0-16.0) % Plt Count (160-400) X10*3/uL MPV (9.4-12.3) fL Immature Gran % (Auto) (0.0-0.4) % Neut % (Auto) (45-73) % Lymph % (Auto) (20-40) % Jennings % (Auto) (2-11) % Eos % (Auto) (0-4) % Baso % (Auto) (0-2) % Lymph # (Auto) (1.2-4.9) X10*3/uL Jennings # (Auto) (0.1-1.2) X10*3/uL Eos # (Auto) (0.0-0.4) X10*3/uL Baso # (Auto) (0.0-0.2) X10*3/uL Abs Immat Gran (auto) (0.00-0.03) X10*3/uL Absolute Neuts (auto) (2.0-8.3) X10*3/uL Absolute Nucleated RBC (0.0-0.012) X10*3/uL Nucleated RBC % (auto) (0.0-0.2) /100WBC ESR (0-20) MM/HR PT (10.8-13.0) SEC INR (0.9-1.1) APTT (24.1-38.0) SEC Hold Blue Top Sodium 136 (135-145) mmol/L Potassium 4.1 (3.3-5.1) mmol/L Chloride 100 (96-108) mmol/L Carbon Dioxide 25 (22-29) mmol/L Anion Gap 15 (12-20) BUN 24 H (9-16) mg/dL Creatinine 1.81 H (0.5-1.4) mg/dL Estim Creat Clear Calc 28.0 Estimated GFR 28 POC Glucose (60-115) mg/dL Random Glucose 534 H* (60-115) mg/dL Lactic Acid 1.5 (0.5-2.0) mmol/L Calcium 7.1 L D (8.4-10.2) mg/dL Magnesium 2.2 (1.6-2.6) mg/dL Total Bilirubin 0.3 (0.0-1.0) mg/dL Direct Bilirubin 0.2 (0.0-0.5) mg/dL AST 13 (5-31) U/L ALT 12 (0-31) U/L Alkaline Phosphatase 106 (39-117) U/L C-Reactive Protein 0.95 H (< or = 0.50) mg/dL B-Natriuretic Peptide 117 H (<100) pg/mL Total Protein 7.3 (6.5-8.0) g/dL Albumin 3.5 (3.5-5.0) g/dL 06/25/20 Range/Units 16:05 WBC (4.8-10.8) X10*3/uL RBC (4.20-5.50) X10*6/uL Hgb (12.0-16.0) g/dl Hct (37-47) % MCV (80-98) fL MCH (27.0-33.0) pg MCHC (31.0-35.0) g/dl RDW (11.0-16.0) % Plt Count (160-400) X10*3/uL MPV (9.4-12.3) fL Immature Gran % (Auto) (0.0-0.4) % Neut % (Auto) (45-73) % Lymph % (Auto) (20-40) % Jennings % (Auto) (2-11) % Eos % (Auto) (0-4) % Baso % (Auto) (0-2) % Lymph # (Auto) (1.2-4.9) X10*3/uL Jennings # (Auto) (0.1-1.2) X10*3/uL Eos # (Auto) (0.0-0.4) X10*3/uL Baso # (Auto) (0.0-0.2) X10*3/uL Abs Immat Gran (auto) (0.00-0.03) X10*3/uL Absolute Neuts (auto) (2.0-8.3) X10*3/uL Absolute Nucleated RBC (0.0-0.012) X10*3/uL Nucleated RBC % (auto) (0.0-0.2) /100WBC ESR (0-20) MM/HR PT (10.8-13.0) SEC INR (0.9-1.1) APTT (24.1-38.0) SEC Hold Blue Top Sodium (135-145) mmol/L Potassium (3.3-5.1) mmol/L Chloride (96-108) mmol/L Carbon Dioxide (22-29) mmol/L Anion Gap (12-20) BUN (9-16) mg/dL Creatinine (0.5-1.4) mg/dL Estim Creat Clear Calc Estimated GFR POC Glucose 342 H (60-115) mg/dL Random Glucose (60-115) mg/dL Lactic Acid (0.5-2.0) mmol/L Calcium (8.4-10.2) mg/dL Magnesium (1.6-2.6) mg/dL Total Bilirubin (0.0-1.0) mg/dL Direct Bilirubin (0.0-0.5) mg/dL AST (5-31) U/L ALT (0-31) U/L Alkaline Phosphatase (39-117) U/L C-Reactive Protein (< or = 0.50) mg/dL B-Natriuretic Peptide (<100) pg/mL Total Protein (6.5-8.0) g/dL Albumin (3.5-5.0) g/dL Critical Care Time Critical Care Time Critical Care Time: Yes Total Critical Care Time: 35 Attestation: I attest to critical care time spent caring for this patient with cellulitis and hyperglycemia requiring multiple doses of SQ insulin, as well as coordination of care with specialists and reviewing of old records, imaging and labs. Discharge Plan Discharge Clinical Impression: Cellulitis Qualifiers: Site of cellulitis: extremity Site of cellulitis of extremity: lower extremity Laterality: left Qualified Code(s): L03.116 - Cellulitis of left lower limb Patient Disposition: Home, Self-Care Instructions: Cellulitis (ED), Diabetic Hyperglycemia (ED) Additional Instructions: You are being treated for an infection of the skin of your left lower leg. You were given IV antibiotics for this while in the ER. Take the oral antibiotic as prescribed for this. Follow up with Dr. Butler on Saturday as scheduled. Your blood glucose was over 500 today. It is very important to improve your diabetes so your infection and wounds can heal. Follow up with your doctor on Saturday. If you have worsening pain, swelling, redness, or develop fevers come back to the ER for further evaluation. Prescriptions: New cephalexin 500 mg capsule 500 mg PO Q8H Qty: 21 RF: 0 No Action cilostazol 100 mg tablet 100 mg PO BID@1200,2100 RF: 0 atorvastatin 80 mg tablet 1 tab PO BEDTIME RF: 0 venlafaxine 37.5 mg capsule,extended release 24hr 1 cap PO QAM RF: 0 amlodipine 2.5 mg tablet 1 tab PO QAM RF: 0 clopidogrel 75 mg tablet 1 tab PO QAM RF: 0 aspirin 81 mg tablet,delayed release (DR/EC) 1 tab PO QAM RF: 0 levothyroxine 25 mcg tablet 1 tab PO QAM RF: 0 ferrous sulfate 325 mg (65 mg iron) tablet 1 tab PO QAM RF: 0 montelukast 10 mg tablet 1 tab PO BEDTIME RF: 0 loratadine 10 mg tablet 1 tab PO QAM RF: 0 cholecalciferol (vitamin D3) [Vitamin D3] 25 mcg (1,000 unit) capsule 1 cap PO QAM RF: 0 insulin lispro [Humalog KwikPen Insulin] 100 unit/mL insulin pen 10 unit subcut TIDAC RF: 0 metoprolol tartrate 25 mg tablet 1 tab PO BID RF: 0 pregabalin 150 mg capsule 1 cap PO BID RF: 0 calcium carbonate-vitamin D3 [Calcium 500 + D] 500 mg(1,250mg) -400 unit tablet 1 tab PO BID Qty: 60 RF: 0
[2020-06-25 13:30] LABS: MANUAL DIFF FLAG NO
[2020-06-25 13:32] LABS: Basophils Absolute Auto 0.1 X10*3/uL (0.0-0.2); Basophils Percent Auto 0.5 % (0-2); Eosinophils Absolute Auto 0.2 X10*3/uL (0.0-0.4); Eosinophils Percent Auto 2.6 % (0-4); Hemoglobin 10.4 g/dl (12.0-16.0); Imm Gran Abs Auto 0.03 X10*3/uL (0.00-0.03); Imm Gran Pct Auto 0.3 % (0.0-0.4); Lymphocytes Absolute Auto 1.4 X10*3/uL (1.2-4.9); Mean Corpuscular HGB Conc 31.5 g/dl (31.0-35.0); Mean Corpuscular Hemoglobin 28.4 pg (27.0-33.0); Mean Corpuscular Volume 90.2 fL (80-98); Mean Platelet Volume 10.4 fL (9.4-12.3); Monocytes Absolute Auto 0.7 X10*3/uL (0.1-1.2); Monocytes Percent Auto 7.3 % (2-11); Neutrophils Absolute Auto 6.8 X10*3/uL (2.0-8.3); Neutrophils Percent Auto 74.3 % (45-73); Platelet Count 215 X10*3/uL (160-400); Red Blood Count 3.66 X10*6/uL (4.20-5.50); White Blood Count 9.2 X10*3/uL (4.8-10.8)
[2020-06-25 13:38] LABS: Prothrombin Time 11.6 SEC (10.8-13.0)
[2020-06-25 13:40] LABS: Partial Thromboplastin Time 32.5 SEC (24.1-38.0)
[2020-06-25 13:49] LABS: Lactic Acid 1.5 mmol/L (0.5-2.0)
[2020-06-25 13:57] LABS: Alanine Aminotransferase 12 U/L (0-31); Albumin Level 3.5 g/dL (3.5-5.0); Alkaline Phosphatase 106 U/L (39-117); Anion Gap 15 (12-20); Aspartate Amino Transferase 13 U/L (5-31); Bilirubin Direct 0.2 mg/dL (0.0-0.5); Bilirubin Total 0.3 mg/dL (0.0-1.0); Blood Urea Nitrogen 24 mg/dL (9-16); C Reactive Protein 0.95 mg/dL (< or = 0.50); Calcium 7.1 mg/dL (8.4-10.2); Carbon Dioxide 25 mmol/L (22-29); Chloride 100 mmol/L (96-108); Estimated Glomerular Filt Rate 28; Glucose Random 534 mg/dL (60-115); Magnesium 2.2 mg/dL (1.6-2.6); Potassium 4.1 mmol/L (3.3-5.1); Sodium 136 mmol/L (135-145); Total Protein 7.3 g/dL (6.5-8.0)
[2020-06-25 14:01] LABS: B Type Natriuretic Peptide 117 pg/mL (<100)
[2020-06-25 14:25] LABS: Erythrocyte Sedimentation Rate 79 MM/HR (0-20)
[2020-06-25 14:31] VITALS: BP 175/84; PULSE 77; RESP 14; TEMP 36.8
[2020-06-25] MEDS: Insulin Lispro 100 UNIT/ML 3 ML VIAL 10 UNIT SUBCUT ×2 (14:43→16:26)
[2020-06-25] MEDS: Piperacillin Sodium/Tazobactam 3.375 GM in 0.9 % Sodium Chloride 50 ML IV (14:43)
[2020-06-25] MEDS: vancomycin HCL 750 MG in 0.9 % Sodium Chloride 250 ML 265 MG IV (15:47)
[2020-06-25 16:08] LABS: Glucose, Whole Blood 342 mg/dL (60-115)
[2020-06-25 17:22] LABS: Glucose, Whole Blood 209 mg/dL (60-115)
== END 2020-06-25 18:18 | disposition home or self-care (01) ==
PROVIDERS: Physician Assistant; Emergency Provider Emergency Medicine Emergency Medical Services; PCP Otolaryngology
DX: L03.116 Cellulitis of left lower limb (principal); E11.22 Type 2 diabetes mellitus with diabetic chronic kidney disease; E11.65 Type 2 diabetes mellitus with hyperglycemia; I12.9 Hypertensive chronic kidney disease with stage 1 through stage 4 chronic kidney disease, or unspecified chronic kidney disease; N18.9 Chronic kidney disease, unspecified; N17.9 Acute kidney failure, unspecified; D63.1 Anemia in chronic kidney disease; J44.9 Chronic obstructive pulmonary disease, unspecified; F17.210 Nicotine dependence, cigarettes, uncomplicated; Z79.82 Long term (current) use of aspirin; Z79.02 Long term (current) use of antithrombotics/antiplatelets; Z79.4 Long term (current) use of insulin; Z79.899 Other long term (current) drug therapy
CPT/HCPCS: 36415; 73630; 80048; 80076; 82947; 83605; 83735; 83880; 85025; 85610; 85652; 85730; 86140; 87040; 93971; 96365; 96368; 99284; 99291; J2543; J3370

== ENCOUNTER 2020-06-27 07:00 | Day surgery (SDC) | payer OTHER, SELFPAY ==
[2020-06-27] VITALS (7 sets, daily range): BP systolic 122–137; BP diastolic 57–72; PULSE 71–79; RESP 16–18; TEMP 36.4; O2SAT 95–99; BMI 32.2
[2020-06-27 07:41] LABS: Glucose, Whole Blood 263 mg/dL (60-115)
[2020-06-27 08:20] LABS: MANUAL DIFF FLAG NO
[2020-06-27 08:22] LABS: Basophils Absolute Auto 0.1 X10*3/uL (0.0-0.2); Basophils Percent Auto 0.6 % (0-2); Eosinophils Absolute Auto 0.3 X10*3/uL (0.0-0.4); Eosinophils Percent Auto 3.2 % (0-4); Hematocrit 31.2 % (37-47); Hemoglobin 9.8 g/dl (12.0-16.0); Imm Gran Abs Auto 0.03 X10*3/uL (0.00-0.03); Imm Gran Pct Auto 0.3 % (0.0-0.4); Lymphocytes Absolute Auto 1.8 X10*3/uL (1.2-4.9); Lymphocytes Percent Auto 18.9 % (20-40); Mean Corpuscular HGB Conc 31.4 g/dl (31.0-35.0); Mean Corpuscular Hemoglobin 28.7 pg (27.0-33.0); Mean Corpuscular Volume 91.2 fL (80-98); Mean Platelet Volume 10.3 fL (9.4-12.3); Monocytes Absolute Auto 0.9 X10*3/uL (0.1-1.2); Monocytes Percent Auto 9.8 % (2-11); Neutrophils Absolute Auto 6.2 X10*3/uL (2.0-8.3); Neutrophils Percent Auto 67.2 % (45-73); Platelet Count 213 X10*3/uL (160-400); Red Blood Count 3.42 X10*6/uL (4.20-5.50); Red Cell Distribution Width 14.1 % (11.0-16.0); White Blood Count 9.3 X10*3/uL (4.8-10.8)
[2020-06-27] MEDS: 0.9 % Sodium Chloride 1,000 ML 100 ML IVCONT (08:27)
[2020-06-27 08:30] LABS: Prothrombin Time 12.1 SEC (10.8-13.0)
[2020-06-27 08:33] LABS: Partial Thromboplastin Time 32.7 SEC (24.1-38.0)
[2020-06-27 08:57] LABS: Anion Gap 14 (12-20); Blood Urea Nitrogen 28 mg/dL (9-16); Calcium 6.9 mg/dL (8.4-10.2); Carbon Dioxide 25 mmol/L (22-29); Chloride 103 mmol/L (96-108); Creatinine Clr Calc Pharmacy 25.6; Estimated Glomerular Filt Rate 25; Glucose Random 172 mg/dL (60-115); Potassium 3.7 mmol/L (3.3-5.1); Sodium 138 mmol/L (135-145)
--- NOTE | 2020-06-27 11:22 | W.PM.OPN ---
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 Ultrasound-guided right common femoral access 2. Aortogram with left lower extremity runoff 3. Atherectomy of left SFA 4. Stent of left SFA 5. Plasty of left popliteal with drug coated balloon Surgeon:David Butler M.D. Delivery Man:None Anesthesia: Local with moderate conscious sedation for a total of 60 minutes, performed by fl Specimens:none Drains:none Estimated blood loss: Less than 10 ml Indications: Very pleasant 64-year-old female with a history of diabetes and smoking has a nonhealing left great toe ulcer. She now presents for endovascular intervention. Noninvasive testing demonstrated bilateral SFA disease. The patient has signed the informed consent after reviewing risks, complications, benefits, and alternatives previously discussed with the patient in my office. The patient was given the opportunity to ask any additional questions or voice any concerns. All questions were answered to the patient's satisfaction. Procedure in detail: Patient was brought to the angiography suite prior to which a time-out was called for patient identification and site verification. Bilateral groins were prepped and draped in the standard surgical fashion. Under ultrasound guidance right common femoral was punctured with micro puncture needle and wire. Subsequently a precision 4 Serbian sheath was then placed. Bentson wire was advanced to the level of the aorta. 4 Serbian Flush catheter was brought up and parked at the level of the renal arteries. Aortogram was then undertaken. Catheter was brought down to the level of the iliac bifurcation. Iliacs were subsequently imaged. Catheter was then brought in up and over to the left side SFA. Runoff study was then undertaken. At this point we recognized there was significant SFA and popliteal disease. She was administered 5000 units of systemic heparin. After 5 minutes of circulation time and up and over 6 Serbian sheath was then placed. Glidewire Advantage was used to traverse the entire length of the SFA. True lumen was confirmed with a trail Blazer catheter. This was instilled with contrast. Runoff study was then undertaken. At this point we then advanced a spider wire at the popliteal location. Once this was done in the mid SFA had a near occlusive disease. Atherectomy was performed. There was 3 subsequent passes undertaken. Once this was accomplished we then plasty the entire length of the area with a 5 x 100 balloon. We then advanced a 5 x 40 drug coated balloon to treat the behind knee popliteal. The distal to proximal SFA was then stented with a 5 x 120 the EV3 stent and then a 5 x 100 EV3 stent. This was then plasty D into position with a 5 x 100 balloon to obtain good wall apposition. Once this was all accomplished completion angiogram demonstrated excellent result. StarClose closure device was then deployed. At the end the case sponge instrument counts were correct. Patient tolerated the procedure well returned to recovery with stable vitals. Interpretation of films: 1. Ultrasound demonstrates appropriate femoral puncture. Image of which was saved. 2. Aortogram demonstrates appropriate caliber aorta. Minimal disease. Appropriate take-off of the renals. 3. Iliac images demonstrate good flow down to bilateral iliacs. 4. Left side demonstrated some mild to moderate common femoral disease. Normal profundus flow. SFA had high-grade stenosis throughout its entire length. Behind knee popliteal had moderate to high-grade stenosis. The patient had 1 vessel runoff which was the peroneal artery. Conclusion: 1. Successful diagnostic angiogram 2. Successful plasty of left popliteal with drug coated balloon. She is already on Plavix an aspirin. 3. Successful atherectomy and stent of left SFA This note is constructed using voice recognition software. While every effort has been made to ensure accuracy, water pollution scientist errors may have been included. Thank you for allowing me to participate in the care of your patient. Yours sincerely, David Butler MD, FACS, R.P.V.I.
== END 2020-06-27 13:50 | disposition home or self-care (01) ==
PROVIDERS: Visit Provider Surgery Vascular Surgery
DX: E11.621 Type 2 diabetes mellitus with foot ulcer (principal); E11.51 Type 2 diabetes mellitus with diabetic peripheral angiopathy without gangrene; Z79.4 Long term (current) use of insulin; I70.245 Atherosclerosis of native arteries of left leg with ulceration of other part of foot; L97.529 Non-pressure chronic ulcer of other part of left foot with unspecified severity; I10 Essential (primary) hypertension; D64.9 Anemia, unspecified; J44.9 Chronic obstructive pulmonary disease, unspecified; Z79.82 Long term (current) use of aspirin; Z79.899 Other long term (current) drug therapy; Z87.891 Personal history of nicotine dependence
CPT/HCPCS: 36415; 37226; 37227; 76937; 80048; 82947; 85025; 85610; 85730; 99152; 99153; C1714; C1725; C1760; C1769; C1876; C1884; C1887; J2250; J3010; Q9967

== ENCOUNTER → 2020-07-12 13:31 | Outpatient (BNVA) | payer OTHER, SELFPAY | PROVIDERS: PCP Family Medicine; Visit Provider Surgery Vascular Surgery | DX: I73.9 Peripheral vascular disease, unspecified (principal) | CPT/HCPCS: 99212 ==

== ENCOUNTER → 2020-07-26 13:38 | Outpatient (BNVA) | payer OTHER, SELFPAY | PROVIDERS: PCP Family Medicine; Visit Provider Surgery Vascular Surgery | DX: I73.9 Peripheral vascular disease, unspecified (principal) | CPT/HCPCS: 99212 ==

== ENCOUNTER → 2020-08-11 13:56 | Outpatient (BNVA) | payer OTHER, SELFPAY | PROVIDERS: PCP Family Medicine; Visit Provider Surgery Vascular Surgery | DX: E11.621 Type 2 diabetes mellitus with foot ulcer (principal); L97.529 Non-pressure chronic ulcer of other part of left foot with unspecified severity; E11.40 Type 2 diabetes mellitus with diabetic neuropathy, unspecified; E11.65 Type 2 diabetes mellitus with hyperglycemia; E78.00 Pure hypercholesterolemia, unspecified; I73.9 Peripheral vascular disease, unspecified; Z88.8 Allergy status to other drugs, medicaments and biological substances | CPT/HCPCS: 99212 ==

== ENCOUNTER 2020-08-18 13:40 | Inpatient (IN) | payer OTHER, SELFPAY ==
--- NOTE | ~2020-08-18 | XR_ITS ---
EXAMINATION: XR CHEST CLINICAL INFORMATION: Follow-up pulmonary infiltrates. COMPARISON: Chest 08/25/2020 TECHNIQUE: Frontal view of the chest was obtained. FINDINGS: There are multiple patchy densities scattered throughout both lungs consistent with infiltrates. The heart size and pulmonary vascularity is normal. There is a right jugular central catheter its tip overlying the right atrium. Endotracheal tube tip is 2.4 cm above isidro. The enteric tube is is in the stomach. There is a new line extending the left paramedian region extending beyond the diaphragm and the on the inferior edge of the film. XR/XR chest 1V IMPRESSION: No signal change lateral airspace opacities. Stable right jugular central catheter and endotracheal tube. The enteric tube tip is in the stomach. There is another catheter seen in the left paramediastinal question external catheter or another esophageal tube. Correlate clinically.
--- NOTE | ~2020-08-18 | CT_ITS ---
EXAMINATION: CT CHEST WITHOUT CONTRAST CLINICAL INFORMATION: Pneumonia COMPARISON: Previous chest x-ray most recent from earlier today TECHNIQUE: Multidetector volumetric CT imaging of the chest was done. Axial MIP volume rendering provided. Sagittal and coronal reformatted images were obtained. This CT examination was performed using dose optimization techniques as appropriate, variously including the following: *Automated exposure control *Adjustment of mA and/or kV according to patient size (this includes techniques or standardized protocols for targeted exams where dose is matched to indication/reason for exam; i.e. extremities or head) *Use of iterative reconstruction technique DLP: 285 mGy-cm FINDINGS: LUNGS: There are large bilateral groundglass attenuation infiltrates. These are seen diffusely throughout the lungs. These have upper lobe and anterior predominance sparing of the dependent lung bases. This is an atypical distribution for Covid infection and other causes of pneumonia should be considered as well and pulmonary edema and pulmonary hemorrhage.. MEDIASTINUM: The thyroid gland has been removed. There is diffuse mediastinal lymphadenopathy. Largest lymph note is a 1.8 cm right precarinal lymph node. The heart is upper normal in size. Trace pericardial effusion. There is coronary artery calcification. PLEURA: There is a small left pleural effusion. There is no right pleural effusion. AXILLA: No lymphadenopathy. UPPER ABDOMEN: Unremarkable. OSSEOUS STRUCTURES: There are degenerative changes of the spine.. CT/CT chest wo con IMPRESSION: Large bilateral groundglass other causes of pneumonia aspiration pneumonia, pulmonary edema and pulmonary hemorrhage. Small left pleural effusion. Enlarged mediastinal nodes.
--- NOTE | ~2020-08-18 | XR_ITS ---
EXAMINATION: XR CHEST CLINICAL INFORMATION: Follow up CHF. COMPARISON: Chest done on 08/27/2020. TECHNIQUE: Frontal view of the chest was obtained. FINDINGS: Interval removal of endotracheal tube, and enteric tubes since the prior study. The right IJ central line is still present, and is unchanged. Previously documented bilateral multifocal patchy airspace disease seen throughout both lung delgado appear stable. No evidence of any pleural effusion or pneumothorax. The visualized upper abdomen is unchanged XR/XR chest 1V IMPRESSION: Interval removal of endotracheal tube and enteric tubes since the prior chest radiograph done on 08/27/2020. Persistent bilateral patchy ill-defined airspace disease, similar to prior study. No new abnormalities.
--- NOTE | ~2020-08-18 | CT_ITS ---
EXAMINATION: CT HEAD WITHOUT CONTRAST CLINICAL INFORMATION: Confusion COMPARISON: None TECHNIQUE: Contiguous axial imaging was performed from the skull base to vertex without intravenous administration of contrast. This CT examination was performed using dose optimization techniques as appropriate, variously including the following: *Automated exposure control *Adjustment of mA and/or kV according to patient size (this includes techniques or standardized protocols for targeted exams where dose is matched to indication/reason for exam; i.e. extremities or head) *Use of iterative reconstruction technique DLP: 824 mGy-cm FINDINGS: There is no evidence of acute intracranial hemorrhage or territorial infarction. No abnormal mass effect or midline shift is seen. Thakur to white matter differentiation is well preserved. No extra-axial fluid collections are identified. The ventricles are normal in size. There is no abnormal attenuation within the brain parenchyma. The osseous structures and soft tissues are normal. There is diffuse opacification of left sphenoid sinus. Rest of the sinuses and mastoid air cells are well aerated and clear. CT/CT head/brain wo con IMPRESSION: No acute intracranial process seen. Chronic left sphenoid sinusitis.
--- NOTE | ~2020-08-18 | MR_ITS ---
EXAMINATION: MRI WITHOUT AND WITH CONTRAST FOOT, LEFT CLINICAL INFORMATION: Great toe infection. Evaluate for osteomyelitis COMPARISON: Radiographs 08/18/2020 TECHNIQUE: MRI without and with intravenous administration of 7.5 mL of Gadavist is performed on the left foot FINDINGS: There is a skin ulceration along the medial aspect of the distal great toe with foci of gas within the medial and dorsal soft tissues, extending to the mid aspect of the proximal phalanx. Peripherally enhancing complex fluid encircles the extensor hallucis longus tendon over a length of 3 cm to the distal aspect of the 1st metatarsal compatible with septic tenosynovitis. There appear to be foci of gas within the base of the 1st distal phalanx with edema and loss of T1 fatty marrow signal compatible with osteomyelitis. MR/MR foot LT wo/w con IMPRESSION: Soft tissue ulcer along the medial aspect of the great toe with osteomyelitis of the underlying distal phalanx. This includes intraosseous gas, which also extends along the dorsum of the great toe, with septic tenosynovitis of the EHL to the level of the distal 1st metatarsal.
--- NOTE | ~2020-08-18 | US_ITS ---
EXAMINATION: ULTRASOUND ARTERIAL DUPLEX LOWER EXTREMITY LEFT WITH BLANCHE CLINICAL INFORMATION: Nonhealing ulcer. COMPARISON: None TECHNIQUE: Multiple 2-D grayscale and duplex Doppler ultrasound images of the arteries of the left lower extremity were obtained. FINDINGS: Ankle-brachial indices were calculated as 0.57 on the right and 0.54 on the left. Duplex Doppler interrogation of the bilateral lower extremities showed normal tri and biphasic arterial waveforms. Arterial peak systolic velocities are as follows: LEFT: External Iliac: 209 cm/s Common femoral: 243 cm/sec Profunda femoral: 184 cm/sec Superficial femoral proximal: 251 cm/sec Popliteal: 158 cm/sec. Posterior tibial: 37 cm/sec STENT: [place] artery proximal to stent: 218 Proximal: 218 cm/sec Mid: 98 cm/sec Distal: 105 cm/sec The [place] artery distal to stent: 115 Reniform left inguinal lymph nodes are seen measuring up to 3.4 cm in long axis. US/US BLANCHE complete IMPRESSION: 1. Left femoral-popliteal bypass stent grafts appears patent. The [place] arteries so elevated velocities in the range of moderate stenosis. 2. Ankle-brachial indices are in the range of moderate ischemia bilaterally.
--- NOTE | ~2020-08-18 | XR_ITS ---
EXAMINATION: XR CHEST CLINICAL INFORMATION: ET tube, line COMPARISON: 08/25/2020 TECHNIQUE: Frontal view of the chest was obtained. FINDINGS: Endotracheal tube tip lies 2.5 cm above the isidro. Right IJ central line tip lies in the region of the cavoatrial junction. Redemonstrated extensive multifocal bilateral airspace opacities, similar to prior. No evidence of pneumothorax or significant pleural effusion. The cardiomediastinal silhouette is stable. No acute osseous findings are seen. XR/XR chest 1V IMPRESSION: Endotracheal tube tip 2.5 cm above the isidro. Right IJ central line tip in the region of the cavoatrial junction. Redemonstrated extensive multifocal bilateral airspace opacities.
--- NOTE | ~2020-08-18 | US_ITS ---
EXAMINATION: ABDOMINAL AORTIC ULTRASOUND CLINICAL INFORMATION: Nonhealing ulcer left foot, abnormal common femoral artery waveforms. COMPARISON: CT abdomen and pelvis 06/13/2014 TECHNIQUE: Real-time ultrasound and Doppler techniques (integrating B-mode 2-D vascular images, Doppler spectral analysis and color flow Doppler imaging) were utilized to interrogate the abdominal aorta. FINDINGS: Proximal aorta: 2.3 cm AP; 2.5 cm transverse. Middle aorta: 1.7 cm AP; 2.3 cm transverse. Distal aorta: 2.3 cm AP; 2.0 cm transverse. Right common iliac artery: 0.8 cm. Left common iliac artery: 0.6 cm ADDITIONAL FINDINGS: None. US/US abdominal aortic aneurysm IMPRESSION: No abdominal aortic aneurysm.
--- NOTE | ~2020-08-18 | US_ITS ---
EXAMINATION: US RETROPERITONEAL LIMITED (RENAL ONLY) CLINICAL INFORMATION: Worsening renal failure. COMPARISON: CT 06/13/2014 TECHNIQUE: Routine grayscale imaging of kidneys is performed. FINDINGS: RIGHT KIDNEY: 12.0 x 5.1 x 6.0 cm (SAG x AP x TRV). The kidney is normal in size, contour, and echogenicity. Renal cortical thickness is normal. There is anechoic cyst in the midpole measuring 1.7 x 1.4 x 1.7 seen. There are multiple echogenic foci likely vascular calcifications. No echogenic stones suspected. No hydronephrosis. LEFT KIDNEY: 12.1 x 6.0 x 5.6 cm (SAG x AP x TRV). The kidney is normal in size, lobulated contour, and echogenicity. Renal cortical thickness is normal. There is anechoic upper pole cyst measuring 1.2 x 1.2 x 1.5 cm. There are multiple echogenic foci/vascular calcifications. No hydronephrosis. US/US renal BI IMPRESSION: Bilateral renal cysts. There are multiple echogenic foci likely vascular calcifications.
--- NOTE | ~2020-08-18 | XR_ITS ---
EXAMINATION: XR CHEST CLINICAL INFORMATION: Shortness of breath COMPARISON: 08/24/2020 TECHNIQUE: Frontal view of the chest was obtained. FINDINGS: Lung volumes are symmetric. There are extensive multifocal airspace opacities bilaterally, worsened from 08/24/2020. No evidence of pneumothorax or significant pleural effusion. The cardiomediastinal contour is unremarkable. No acute osseous findings are seen. XR/XR chest 1V IMPRESSION: Extensive bilateral multifocal airspace opacities, worsened from 08/24/2020.
--- NOTE | ~2020-08-18 | XR_ITS ---
EXAMINATION: XR CHEST CLINICAL INFORMATION: Follow up respiratory failure COMPARISON: Previous chest x-rays most recent 08/28/2020 TECHNIQUE: Frontal view of the chest was obtained. FINDINGS: The cardiac and mediastinal contours are stable. The lung volumes are low. There is slight elevation of the right hemidiaphragm. There are coarse lung markings seen bilaterally. The diffuse interstitial and airspace disease seen on prior exams most recent 08/28/2020 appears improved. There is no pleural effusion or pneumothorax. There is a right jugular line tip projecting over the cavoatrial junction. There are surgical clips in the neck. XR/XR chest 1V IMPRESSION: Improved mixed airspace and interstitial disease.
--- NOTE | ~2020-08-18 | XR_ITS ---
EXAMINATION: XR CHEST CLINICAL INFORMATION: OG tube placement COMPARISON: Chest radiographs 08/25/2020 at 0605 hours and 0452 hours. TECHNIQUE: Portable upright AP view of the chest is performed at 1055 hours. FINDINGS: There is an orogastric tube with distal end in position, overlying left upper quadrant abdomen. ET tube is approximately 2.7, similar to prior study. The right IJ catheter is at superior vena cava/right atrial junction or upper right atrium, similar to prior study. Again, there are extensive bilateral patchy airspace opacities similar to prior studies. No pneumothorax or visible pneumo mediastinum. No effusion. XR/XR chest 1V IMPRESSION: 1. Orogastric tube in abdomen. 2. ET tube and right IJ catheter are similar to prior exam. 3. Extensive bilateral airspace opacities again present.
--- NOTE | ~2020-08-18 | MR_ITS ---
EXAMINATION: MR BRAIN WITHOUT CONTRAST CLINICAL INFORMATION: Encephalopathy. COMPARISON: CT head from 08/22/2020. TECHNIQUE: MRI of the brain was obtained using routine sequences without contrast. FINDINGS: No focal restricted diffusion is demonstrated to suggest acute or subacute cerebral ischemia. No evidence of acute or chronic hemorrhagic products on heme-sensitive imaging. Basal ganglia mineralization. Scattered periventricular, deep white matter, and brainstem T2 FLAIR hyperintensities consistent with mild to moderate underlying microangiopathy. The ventricles are normal in morphology and size. There is an extra-axial lesion with dural tail along the lateral aspect of the left frontal lobe, measuring 1.4 x 0.7 x 1.3 cm. No perilesional edema. No abnormal mass effect. No midline shift. Normal appearance of the pituitary gland. The cerebellar tonsils are normally positioned. Normal arterial and venous vascular flow voids are present. Normal, homogeneous marrow signal. Moderate mucosal thickening of the paranasal sinuses. AP there is complete opacification of the left sphenoid air cell. Moderate left-sided mastoid effusion. No signal abnormalities within the right-sided mastoid. Bilateral lens extractions. MR/MR head/brain wo con IMPRESSION: 1. No acute intracranial abnormalities. 2. Mild to moderate underlying microangiopathy and generalized cerebral volume loss. 3. There is a 1.4 cm meningioma along the left frontal lobe.
--- NOTE | ~2020-08-18 | XR_ITS ---
EXAMINATION: XR CHEST CLINICAL INFORMATION: Follow up pneumonia. COMPARISON: Chest radiograph done on 08/26/2020. TECHNIQUE: Frontal view of the chest was obtained. FINDINGS: Bilateral multifocal patchy airspace disease is present, shows minimal interval improved aeration since the prior study. The tip of the endotracheal tube is located approximately 2.2 cm above the level of the isidro. The tip of the right IJ central line is in good position. The tip of the enteric tube is not visualized however it is infradiaphragmatic. No evidence of any pleural effusion. The cardiac mediastinal silhouette is within normal limits. XR/XR chest 1V IMPRESSION: Evidence of interval improved aeration seen bilaterally since the prior study dated 08/26/2020. The tip of the endotracheal tube is located 2.2 cm above the level of the isidro.
--- NOTE | ~2020-08-18 | US_ITS ---
EXAMINATION: ULTRASOUND ARTERIAL DUPLEX LOWER EXTREMITY LEFT WITH BLANCHE CLINICAL INFORMATION: Nonhealing ulcer. COMPARISON: None TECHNIQUE: Multiple 2-D grayscale and duplex Doppler ultrasound images of the arteries of the left lower extremity were obtained. FINDINGS: Ankle-brachial indices were calculated as 0.57 on the right and 0.54 on the left. Duplex Doppler interrogation of the bilateral lower extremities showed normal tri and biphasic arterial waveforms. Arterial peak systolic velocities are as follows: LEFT: External Iliac: 209 cm/s Common femoral: 243 cm/sec Profunda femoral: 184 cm/sec Superficial femoral proximal: 251 cm/sec Popliteal: 158 cm/sec. Posterior tibial: 37 cm/sec STENT: [place] artery proximal to stent: 218 Proximal: 218 cm/sec Mid: 98 cm/sec Distal: 105 cm/sec The [place] artery distal to stent: 115 Reniform left inguinal lymph nodes are seen measuring up to 3.4 cm in long axis. US/US arterial duplex LE LT IMPRESSION: 1. Left femoral-popliteal bypass stent grafts appears patent. The [place] arteries so elevated velocities in the range of moderate stenosis. 2. Ankle-brachial indices are in the range of moderate ischemia bilaterally.
--- NOTE | ~2020-08-18 | XR_ITS ---
EXAMINATION: XR CHEST CLINICAL INFORMATION: Rhonchi. COMPARISON: Chest x-ray 09/08/2016 TECHNIQUE: Frontal view of the chest was obtained. FINDINGS: The lungs are well-expanded with diffuse patchy opacities seen in both lungs suggestive of infiltrate, ? Covid disease. There is no pleural effusion or pneumothorax. Heart size and pulmonary vascularity is normal. No gross bony abnormality except for mild dorsal spine spondylosis. XR/XR chest 1V IMPRESSION: Diffuse bilateral infiltrates.? Covid disease
--- NOTE | ~2020-08-18 | XR_ITS ---
EXAMINATION: XR FOOT, LEFT CLINICAL INFORMATION: Chronic low medial aspect left great toe. Assess for osteomyelitis. COMPARISON: Radiographs left foot 06/25/2020, 10/05/2019 TECHNIQUE: AP, lateral, and oblique views of the left foot. FINDINGS: There is known wound medial soft tissues left great toe. The current exam now shows new scattered gas bubbles in the great toe soft tissues adjacent to medial base distal phalanx and lateral side first proximal phalanx. There is subtle decreased attenuation medial base first distal phalanx suggesting early osteomyelitis. No periostitis at this time. There are no erosive changes interphalangeal joint. The remainder of the bony structures are stable. XR/XR foot LT min 3V IMPRESSION: Worsening infection great toe with interval gas in great toe soft tissues and subtle decreased attenuation medial base first distal phalanx.
[2020-08-18 13:47] VITALS: BP 153/68; PULSE 80; RESP 18; TEMP 36.9; O2SAT 99; BMI 32.0
[2020-08-18] MEDS: oxyCODONE HCl Immed Release 5 MG TABLET PO (14:55)
[2020-08-18 15:05] LABS: MANUAL DIFF FLAG NO
[2020-08-18 15:14] LABS: INTERNATIONAL NORM RATIO 1.2 (0.9-1.1); Prothrombin Time 14.7 SEC (10.8-13.0)
[2020-08-18 15:16] LABS: Basophils Absolute Auto 0.1 X10*3/uL (0.0-0.2); Basophils Percent Auto 0.4 % (0-2); Eosinophils Absolute Auto 0.1 X10*3/uL (0.0-0.4); Eosinophils Percent Auto 0.5 % (0-4); Hematocrit 31.6 % (37-47); Hemoglobin 10.2 g/dl (12.0-16.0); Imm Gran Abs Auto 0.09 X10*3/uL (0.00-0.03); Imm Gran Pct Auto 0.7 % (0.0-0.4); Lymphocytes Absolute Auto 0.9 X10*3/uL (1.2-4.9); Lymphocytes Percent Auto 7.1 % (20-40); Mean Corpuscular HGB Conc 32.3 g/dl (31.0-35.0); Mean Corpuscular Hemoglobin 27.6 pg (27.0-33.0); Mean Corpuscular Volume 85.4 fL (80-98); Mean Platelet Volume 11.2 fL (9.4-12.3); Monocytes Absolute Auto 1.1 X10*3/uL (0.1-1.2); Monocytes Percent Auto 8.8 % (2-11); Neutrophils Absolute Auto 10.1 X10*3/uL (2.0-8.3); Neutrophils Percent Auto 82.5 % (45-73); Platelet Count 198 X10*3/uL (160-400); Red Cell Distribution Width 13.7 % (11.0-16.0); White Blood Count 12.2 X10*3/uL (4.8-10.8)
[2020-08-18 15:54] LABS: Alanine Aminotransferase 10 U/L (0-31); Albumin Level 2.8 g/dL (3.5-5.0); Alkaline Phosphatase 76 U/L (39-117); Anion Gap 13 (12-20); Aspartate Amino Transferase 24 U/L (5-31); Bilirubin Total 0.6 mg/dL (0.0-1.0); Blood Urea Nitrogen 26 mg/dL (9-16); C Reactive Protein 23.18 mg/dL (< or = 0.50); Carbon Dioxide 24 mmol/L (22-29); Chloride 100 mmol/L (96-108); Creatinine Clr Calc Pharmacy 21.5; Estimated Glomerular Filt Rate 21; Glucose Random 363 mg/dL (60-115); Magnesium 1.8 mg/dL (1.6-2.6); Potassium 3.2 mmol/L (3.3-5.1); Sodium 134 mmol/L (135-145); Total Protein 6.7 g/dL (6.5-8.0)
--- NOTE | 2020-08-18 15:55 | ED.SKABFB ---
HPI - Skin/Abscess/Foreign Bdy General Chief complaint: Skin/Abscess/Foreign Body Stated complaint: TOE INFECTION Time Seen by Provider: 08/18/20 14:11 Source: patient and EMS Mode of arrival: EMS Limitations: no limitations History of Present Illness HPI narrative: 65-year-old female with a past medical history of poorly-controlled diabetes with an A1c level of 11.5% with neuropathy, CKD, PVD s/p left SFA stent 2013 and s/p LLE atherectomy and stenting of the left SFA and plasty of left popiteal artery on 07/06/[address] Butler, hypertension, hyperlipidemia, asthma, COPD, anemia with recent admission presenting to the ED from home via EMS with 3 days of worsening nontraumatic left lower extremity pain/swelling/redness/drainage. Reports that she has been followed [facility] and has the wound cleaned and dressing changes once a week usually on Fridays last time she was seen was this past Saturday. She denies any fevers, chills or any other symptoms complaints or concerns at this time. Related Data Home Medications Medication Instructions Recorded Confirmed amlodipine 1 tab PO QAM 05/17/20 05/17/20 aspirin 1 tab PO QAM 05/17/20 05/17/20 atorvastatin 1 tab PO BEDTIME 05/17/20 05/17/20 cholecalciferol (vitamin D3) 1 cap PO QAM 05/17/20 05/17/20 [Vitamin D3] cilostazol 100 mg PO BID@1200,2100 05/17/20 05/17/20 clopidogrel 1 tab PO QAM 05/17/20 05/17/20 ferrous sulfate 1 tab PO QAM 05/17/20 05/17/20 insulin lispro [Humalog KwikPen 10 unit SUBCUT TIDAC 05/17/20 05/17/20 Insulin] levothyroxine 1 tab PO QAM 05/17/20 05/17/20 loratadine 1 tab PO QAM 05/17/20 05/17/20 metoprolol tartrate 1 tab PO BID 05/17/20 05/17/20 montelukast 1 tab PO BEDTIME 05/17/20 05/17/20 pregabalin 1 cap PO BID 05/17/20 05/17/20 venlafaxine 1 cap PO QAM 05/17/20 05/17/20 Previous Rx's Medication Instructions Recorded calcium carbonate-vitamin D3 1 tab PO BID #60 tab 05/20/20 [Calcium 500 + D] cephalexin 500 mg PO Q8H #21 cap 06/25/20 Allergies Allergy/AdvReac Type Severity Reaction Status Date / Time ALLYSSA Inhibitors Allergy Mild COUGH Verified 08/11/20 14:06 [ALLYSSA INHIBITORS] cilostazol [CILOSTAZOL] Allergy Mild COUGH Verified 08/11/20 14:06 Review of Systems Review of Systems: Constitutional : No Fever, No Chills, Cardiovascular : No Chest Pain, No SOB Respiratory : No Dyspnea Gastrointestinal : No abdominal pain Musculoskeletal : No Joint Swelling Skin : positive skin wounds/surrounding erythema/drainage, No laceration, No Foreign bodies, No rash Neuro : No Weakness, No Numbness/tingling Psych : No SI/HI/thoughts of self injury Yes all other systems are reviewed and are negative [facility] Past Medical History Attestation statement: The following information was validated with the patient. Medical History Anemia Asthma-COPD overlap syndrome Diabetes HTN (hypertension) Hypercholesteremia Hypothyroidism Neuropathy Social History Social History Household Members: None Housing: Apartment Advance Directives: Yes Advance Directives Information Provided: Yes Advance Directives on File: No service: No Current occupational status: disabled Physical Exam Vital Signs: Vital Signs: Last Vital Signs Temp 98.5 F 08/18/20 13:47 Pulse 80 08/18/20 13:47 Resp 18 08/18/20 13:47 BP 153/68 H 08/18/20 13:47 Pulse Ox 99 08/18/20 13:47 Body Mass Index 32.0 vital signs have been reviewed as normal and appeared to be correct. Blood pressure normal. Heart rate normal. Respiration rate normal. Temperature normal. Oxygen saturation normal. Appearance: Alert. Oriented X3. No acute distress. Head: Normal external exam. Normocephalic. Eyes: PERRLA. EOMI. Conjunctiva and sclera normal. Eyelids normal. ENT: Pharynx normal. Uvula midline. Moist mucous membranes. Neck: Normal inspection. Neck supple. FROM. No adenopathy. No meningeal signs. CVS: Normal heart rate and rhythm. Heart sound normal. No murmurs noted. Pulses normal throughout. Respiratory: No respiratory distress. Painless inspiration. Breath sounds normal. No wheezes/rales/rhonchi noted. Chest nontender. No accessory muscle usage noted or decreased air movement noted. Back: Full range of motion noted. Skin: Patient has wound to left great toe with surrounding erythema on the dorsal aspect of the foot up to the ankle. No streaking is noted. No fluctuance noted. See below for pictures. The rest of the Skin is warm and dry. Normal skin color. Normal skin turgor. No rashes/lesions/lacerations noted. Extremities: No lower extremity edema noted. No calf tenderness noted. Extremities exhibit normal range of motion. Extremities nontender. Neuro: Oriented X 3. No motor deficit. No sensory deficit. Reflexes normal. Normal steady gait. Course Course Course Narrative: 16:30 pm - elevated white blood cell count at 12,000. Mild baseline anemia improved when compared to prior. ESR 100. Sodium 134. Potassium 3.2. BUN/creatinine 26/2.31. Random glucose 363. Calcium 5.8. CRP 23.18. Albumin 2.8. Otherwise all other labs including lactic acid within normal limits. - foot x-ray revealed worsening infection great toe with interval gas and great toe soft tissues and subtle decreased attenuation medial base first distal phalanx. - therefore Zosyn and vancomycin along with fluids were ordered at this time patient will be admitted for possible osteomyelitis patient understands agrees with this plan. MDM - Skin/Abscess/Foreign Bdy MDM Narrative Medical decision making narrative: 14:30pm - 65-year-old female with a past medical history of poorly-controlled diabetes with an A1c level of 11.5% with neuropathy, CKD, PVD s/p left SFA stent 2013 and s/p LLE atherectomy and stenting of the left SFA and plasty of left popiteal artery on 07/06/[address] Butler, hypertension, hyperlipidemia, asthma, COPD, anemia with recent admission presenting to the ED from home via EMS with 3 days of worsening nontraumatic left lower extremity pain/swelling/redness/drainage. Reports that she has been followed by the [facility] and has the wound cleaned and dressing changes once a week usually on Fridays last time she was seen was this past Saturday. Plan: Labs, blood cultures, x-ray of left lower extremity then re-evaluate Medical Records Attestation: I reviewed the patient's medical records. Lab Data Attestation: I reviewed the patient's lab results. Result diagrams: 08/18/20 15:00 08/18/20 15:00 Labs: Lab Results 08/18/20 08/18/20 08/18/20 Range/Units 15:00 15:00 15:00 WBC 12.2 H (4.8-10.8) X10*3/uL RBC 3.70 L (4.20-5.50) X10*6/uL Hgb 10.2 L (12.0-16.0) g/dl Hct 31.6 L (37-47) % MCV 85.4 (80-98) fL MCH 27.6 (27.0-33.0) pg MCHC 32.3 (31.0-35.0) g/dl RDW 13.7 (11.0-16.0) % Plt Count 198 (160-400) X10*3/uL MPV 11.2 (9.4-12.3) fL Immature Gran % (Auto) 0.7 H (0.0-0.4) % Neut % (Auto) 82.5 H (45-73) % Lymph % (Auto) 7.1 L (20-40) % [place] % (Auto) 8.8 (2-11) % Eos % (Auto) 0.5 (0-4) % Baso % (Auto) 0.4 (0-2) % Lymph # (Auto) 0.9 L (1.2-4.9) X10*3/uL [place] # (Auto) 1.1 (0.1-1.2) X10*3/uL Eos # (Auto) 0.1 (0.0-0.4) X10*3/uL Baso # (Auto) 0.1 (0.0-0.2) X10*3/uL Abs Immat Gran (auto) 0.09 H (0.00-0.03) X10*3/uL Absolute Neuts (auto) 10.1 H (2.0-8.3) X10*3/uL Absolute Nucleated RBC 0.000 (0.0-0.012) X10*3/uL Nucleated RBC % (auto) 0.0 (0.0-0.2) /100WBC PT 14.7 H D (10.8-13.0) SEC INR 1.2 H (0.9-1.1) Sodium 134 L (135-145) mmol/L Potassium 3.2 L (3.3-5.1) mmol/L Chloride 100 (96-108) mmol/L Carbon Dioxide 24 (22-29) mmol/L Anion Gap 13 (12-20) BUN 26 H (9-16) mg/dL Creatinine 2.31 H (0.5-1.4) mg/dL Estim Creat Clear Calc 21.5 Estimated GFR 21 Random Glucose 363 H* (60-115) mg/dL Calcium 5.8 L* D (8.4-10.2) mg/dL Magnesium 1.8 (1.6-2.6) mg/dL Total Bilirubin 0.6 (0.0-1.0) mg/dL AST 24 D (5-31) U/L ALT 10 (0-31) U/L Alkaline Phosphatase 76 D (39-117) U/L C-Reactive Protein 23.18 H (< or = 0.50) mg/dL Total Protein 6.7 (6.5-8.0) g/dL Albumin 2.8 L (3.5-5.0) g/dL Imaging Data X-ray of left lower extremity/foot: Attestation: I personally reviewed and interpreted this imaging study as follows: Radiologist's impression: FINDINGS: There is known wound medial soft tissues left great toe. The current exam now shows new scattered gas bubbles in the great toe soft tissues adjacent to medial base distal phalanx and lateral side first proximal phalanx. There is subtle decreased attenuation medial base first distal phalanx suggesting early osteomyelitis. No periostitis at this time. There are no erosive changes interphalangeal joint. The remainder of the bony structures are stable. XR/XR foot LT min 3V IMPRESSION: Worsening infection great toe with interval gas in great toe soft tissues and subtle decreased attenuation medial base first distal phalanx. Critical Care Time Critical Care Time Critical Care Time: Yes Total Critical Care Time: 60 Attestation: I personally attest to this time spent taking care of the patient Discharge Plan Discharge Clinical Impression: Osteomyelitis of great toe of left foot Patient Disposition: Admitted As Inpatient
[2020-08-18 16:01] LABS: Calcium 5.8 mg/dL (8.4-10.2)
[2020-08-18 16:44] LABS: Lactic Acid 0.8 mmol/L (0.5-2.0)
[2020-08-18 16:46] LABS: Erythrocyte Sedimentation Rate 100 MM/HR (0-20)
[2020-08-18] MEDS: Piperacillin Sodium/Tazobactam 3.375 GM in 0.9 % Sodium Chloride 50 ML IV (17:39)
[2020-08-18] MEDS: SODIUM CHLORIDE 1365 ML IV (21:35)
[2020-08-18] MEDS: vancomycin HCL 1,000 MG in 0.9 % Sodium Chloride 250 ML 270 MG IV (21:40)
[2020-08-18 22:37] LABS: COVID-19 Test Negative (Negative)
--- NOTE | 2020-08-18 22:49 | PM.IMHP ---
History of Present Illness Date of Service: 08/18/20 Chief Complaint: infected toe Year old female with past medical history of anemia, asthma, diabetes, HTN, HLD, hypothyroidism, neuropathy severe peripheral vascular disease bilateral a who presents to the hospital with complaints of left big toe worsening infection. Patient reports that the infection started 2 months ago and she has been going to Wound now are every Saturday but on Saturday the pain worsened to 10/10, she noticed swelling as well as drainage from the big toe. She has had fever for the past 3 days up to 102, some chills, some diarrhea, no abdominal pain no nausea or vomiting, no urinary symptoms and otherwise no lower extremity edema. Patient hemodynamically stable with no significant abnormal vitals Labs are significant for WBC count of 12.2, hemoglobin of 10.2, PT of 14.7, INR of 1.2, sodium of 134, potassium 3.2, creatinine of 2.3 with a baseline around 1.8-1.98, CRP of 23, ESR of 100, COVID-19 negative Worsening infection in the great toe with interval gas in great toe soft tissues and subtle decreased attenuation at the medial base 1st distal phalanx Past medical history as below and confirmed with patient Review of Systems Review of Systems: Yes all other systems are reviewed and are negative [facility] Medical History Anemia Asthma-COPD overlap syndrome Diabetes HTN (hypertension) Hypercholesteremia Hypothyroidism Neuropathy Social History Household Members: Other Housing: Apartment Do you presently have 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 or other home services: Yes Patient Tobacco Use Status: Former Tobacco user Use of substances other than those prescribed or required for medical reasons: No Have you been hit, kicked, punched, or otherwise hurt by someone within the past year? If so, by whom?: No Do you feel safe in your current relationship?: No Current Relationship Is there a partner from a previous relationship who is making you feel unsafe now?: No Are you made to feel afraid or neglected: No Advance Directives: Yes Advance Directives Information Provided: Yes Advance Directives on File: No Advance Directives Date on File: 08/18/20 Do you have thoughts of harming others: None Do you have a plan to hurt others: No Plan Recently lost weight without trying: No Eating poorly because of decreased appetite: No Nutrition Risks: No Nutritional Risk service: No Current occupational status: disabled Meds Allergies Allergy/AdvReac Type Severity Reaction Status Date / Time ALLYSSA Inhibitors Allergy Mild COUGH Verified 08/11/20 14:06 [ALLYSSA INHIBITORS] cilostazol [CILOSTAZOL] Allergy Mild COUGH Verified 08/11/20 14:06 Active Medications: Current Medications Generic Name Dose Route Start Last Admin Trade Name Freq PRN Reason Stop Dose Admin Potassium Chloride/Sodium Chloride 20 meq in 1,000 mls @ 42 mls/hr 08/18/20 16:30 IVCONT .[id number] JOEL Vancomycin HCl 750 mg/ Sodium 265 mls @ 265 mls/hr 08/19/20 21:00 Chloride IV Q24H [facility] Pharmacy Consult 1 each 08/18/20 16:48 Consult Rx Vancomycin Dosing MISCELLANE DAILY PRN Consult order Home Medications Medication Instructions Recorded Confirmed Last Taken Type amlodipine 1 tab PO QAM 05/17/20 08/19/20 08/17/20 08:30 History aspirin 1 tab PO QAM 05/17/20 08/19/20 08/17/20 08:30 History atorvastatin 1 tab PO BEDTIME 05/17/20 08/19/20 08/17/20 20:00 History cholecalciferol (vitamin D3) 1 cap PO QAM 05/17/20 08/19/20 08/17/20 08:30 History [Vitamin D3] cilostazol 100 mg PO BID@1200,2100 05/17/20 08/19/20 08/17/20 20:00 History clopidogrel 1 tab PO QAM 05/17/20 08/19/20 08/17/20 08:30 History ferrous sulfate 1 tab PO QAM 05/17/20 08/19/20 08/17/20 08:30 History insulin lispro [Humalog KwikPen 10 unit SUBCUT TIDAC 05/17/20 08/19/20 08/17/20 19:00 History Insulin] 40 units levothyroxine 1 tab PO QAM 05/17/20 08/19/20 08/18/20 20:30 History loratadine 1 tab PO QAM 05/17/20 08/19/20 08/18/20 20:30 History metoprolol tartrate 1 tab PO BID 05/17/20 08/19/20 08/17/20 20:00 History montelukast 1 tab PO BEDTIME 05/17/20 08/19/20 08/17/20 20:00 History pregabalin 1 cap PO BID 05/17/20 08/19/20 08/17/20 20:00 History venlafaxine 1 cap PO QAM 05/17/20 08/19/20 08/18/20 08:30 History Physical Exam Vital Signs and Narrative: Vital Signs: Last Vital Signs Temp 98.5 F 08/18/20 13:47 Pulse 80 08/18/20 13:47 Resp 18 08/18/20 13:47 BP 153/68 H 08/18/20 13:47 Pulse Ox 99 08/18/20 13:47 Body Mass Index 32.0 Const: General: cooperative and no acute distress Orientation/consciousness: patient oriented x3 Eyes: General: appearance normal, both eyes and all related structures Resp: Effort & Inspection: normal respiratory effort and able to speak in complete sentences Cardio: Rate: regular rate Rhythm: regular rhythm GI: Palpation (GI): Soft to palpation Auscultation: normal bowel sounds Skin: Other: Left big toe discoloration, edema, warmth, and bloody drainage Neuro: General: patient oriented x3 Cognition (Neuro): normal cognition Extrem: Other: See skin exam of left big toe General: Yes normal to inspection Results Labs CBC and Chem 7: 08/18/20 15:00 08/18/20 15:00 Labs: Laboratory Results - last 24 hr 08/18/20 08/18/20 08/18/20 15:00 15:00 15:00 MCV 85.4 MCH 27.6 MCHC 32.3 RDW 13.7 Plt Count 198 MPV 11.2 Immature Gran % (Auto) 0.7 H Neut % (Auto) 82.5 H Lymph % (Auto) 7.1 L [place] % (Auto) 8.8 Eos % (Auto) 0.5 Baso % (Auto) 0.4 Lymph # (Auto) 0.9 L [place] # (Auto) 1.1 Eos # (Auto) 0.1 Baso # (Auto) 0.1 Abs Immat Gran (auto) 0.09 H Absolute Neuts (auto) 10.1 H Absolute Nucleated RBC 0.000 Nucleated RBC % (auto) 0.0 ESR 100 H PT 14.7 H D INR 1.2 H Anion Gap Estim Creat Clear Calc Estimated GFR Random Glucose Lactic Acid Calcium Magnesium Total Bilirubin AST ALT Alkaline Phosphatase C-Reactive Protein Total Protein Albumin COVID-19 ([facility]IDA) COVID-19 Clin Com 08/18/20 08/18/20 08/18/20 15:00 16:15 22:10 MCV MCH MCHC RDW Plt Count MPV Immature Gran % (Auto) Neut % (Auto) Lymph % (Auto) [place] % (Auto) Eos % (Auto) Baso % (Auto) Lymph # (Auto) [place] # (Auto) Eos # (Auto) Baso # (Auto) Abs Immat Gran (auto) Absolute Neuts (auto) Absolute Nucleated RBC Nucleated RBC % (auto) ESR PT INR Anion Gap 13 Estim Creat Clear Calc 21.5 Estimated GFR 21 Random Glucose 363 H* Lactic Acid 0.8 Calcium 5.8 L* D Magnesium 1.8 Total Bilirubin 0.6 AST 24 D ALT 10 Alkaline Phosphatase 76 D C-Reactive Protein 23.18 H Total Protein 6.7 Albumin 2.8 L COVID-19 (AIDA) Negative COVID-19 Clin Com See Note Imaging Radiologist's Impressions: Impressions Foot X-Ray 08/18/20 14:31 IMPRESSION: Worsening infection great toe with interval gas in great toe soft tissues and subtle decreased attenuation medial base first distal phalanx. Assessment and Plan (1) Osteomyelitis of great toe of left foot: Status: Acute (2) Hypocalcemia: Status: Acute (3) MARY KATE (acute kidney injury): Status: Acute (4) Acute hypokalemia: Status: Acute This is a 65-year-old female with history of diabetes as well as severe peripheral vascular disease who presents to the hospital with worsening infection of the left great toe # osteomyelitis of the great toe of the left foot - has elevated ESR, CRP, drainage of the toe, discoloration, - patient has history of severe vascular disease seen on arterial duplex done in May of 2020 - at this time will start her on broad-spectrum antibiotics - MRI of the great toe - consult surgery - consult infectious disease - follow cultures # MARY KATE - possibly secondary to dehydration/infection - on IV fluids - follow BMP # hypokalemia - will replete - follow BMP # hypocalcemia - most likely secondary to hypoalbumenia, - received calcium gluconate in the ED - will follow calcium level # hypertension -continue amlodipine # diabetes - low-dose sliding scale insulin - continue home Humalog - diabetic diet # hypothyroidism - continue levothyroxine # history of severe peripheral vascular disease - continue statin, Plavix, cilostazol and aspirin DVT prophylaxis: SCDs in anticipation of possible surgical intervention CPR : DNR/DNI
[2020-08-19] VITALS (7 sets, daily range): BP systolic 99–143; BP diastolic 52–70; PULSE 72–93; RESP 18–19; TEMP 36.7–38; O2SAT 91–96
[2020-08-19] MEDS: oxyCODONE HCl Immed Release 5 MG TABLET PO ×4 (00:38→18:43)
[2020-08-19] MEDS: Acetaminophen 325 MG TABLET 650 MG PO ×3 (00:38→18:44)
[2020-08-19] MEDS: 0.9 % Sodium Chloride 1,000 ML 100 ML IVCONT ×3 (00:39→17:05)
[2020-08-19] MEDS: cefEPime HCl 1 GM in 0.9 % Sodium Chloride 50 ML IV ×4 (00:58→23:35)
[2020-08-19] MEDS: Calcium Gluconate/NaCl,Iso-Osm 2 GM/100 ML PLAST..BAG IV (01:31)
[2020-08-19] MEDS: Potassium Chloride Packet 20 MEQ PACKET 40 MEQ PO ×2 (05:31→09:45)
[2020-08-19 06:39] LABS: MANUAL DIFF FLAG NO
[2020-08-19 06:51] LABS: Basophils Percent Auto 0.3 % (0-2); Eosinophils Absolute Auto 0.3 X10*3/uL (0.0-0.4); Eosinophils Percent Auto 2.4 % (0-4); Hematocrit 31.3 % (37-47); Hemoglobin 9.8 g/dl (12.0-16.0); Imm Gran Abs Auto 0.06 X10*3/uL (0.00-0.03); Imm Gran Pct Auto 0.5 % (0.0-0.4); Lymphocytes Absolute Auto 1.5 X10*3/uL (1.2-4.9); Lymphocytes Percent Auto 12.5 % (20-40); Mean Corpuscular HGB Conc 31.3 g/dl (31.0-35.0); Mean Corpuscular Hemoglobin 27.5 pg (27.0-33.0); Mean Corpuscular Volume 87.7 fL (80-98); Mean Platelet Volume 11.5 fL (9.4-12.3); Monocytes Absolute Auto 1.4 X10*3/uL (0.1-1.2); Monocytes Percent Auto 11.3 % (2-11); Neutrophils Absolute Auto 8.7 X10*3/uL (2.0-8.3); Platelet Count 191 X10*3/uL (160-400); Red Blood Count 3.57 X10*6/uL (4.20-5.50); Red Cell Distribution Width 13.8 % (11.0-16.0)
[2020-08-19] MEDS: 0.9 % Sodium Chloride Flush 3 ML SYRINGE IVFLUSH (07:33)
[2020-08-19 07:49] LABS: Glucose, Whole Blood 168 mg/dL (60-115)
--- NOTE | 2020-08-19 07:52 | HO.PM.IMPN ---
Subjective Subjective Date of Service: 08/19/20 Interval History: Seen in f/u infected toe/osteomylitis, pain is controlled. Review of Systems Gen: no fever Resp: no sob, no cough CV: no chest, no TIWARI, no leg edema GI: No n/v, no abd pain Neuro: No confusion MSk pain in left big Physical Exam Vital Signs: Vital Signs: Last Vital Signs Temp 98.5 F 08/19/20 03:21 Pulse 79 08/19/20 03:21 Resp 18 08/19/20 03:21 BP 134/68 08/19/20 03:21 Pulse Ox 94 08/19/20 03:21 Body Mass Index 32.0 General: AO X 3, no acute distress Resp: CTA bilateral CVS: S1,S2,RRR GI: +BS, NT, no distention Skin: see picture of left foot/big toe Neuro: motor grossly intact Psych: appropriate affect Objective Data Current Medications Generic Name Dose Route Start Last Admin Trade Name Freq PRN Reason Stop Dose Admin Acetaminophen 650 mg 08/18/20 23:57 08/19/20 00:38 Acetaminophen 325 Mg Tablet PO 650 mg Q6H PRN Administration Pain, Mild (Pain Scale 1-3) Docusate Sodium 100 mg 08/18/20 23:57 Docusate Sodium 100 Mg Capsule PO DAILY PRN Constipation Vancomycin HCl 750 mg/ Sodium 265 mls @ 265 mls/hr 08/19/20 21:00 Chloride IV Q24H JOEL Sodium Chloride 1,000 mls @ 100 mls/hr 08/18/20 23:57 08/19/20 00:39 Ns IVCONT 100 mls/hr .Q10H JOLE Administration Cefepime HCl 1 gm/ Sodium 50 mls @ 100 mls/hr 08/19/20 00:00 08/19/20 01:29 Chloride IV Infused Q8H JOEL Infusion Insulin Human Lispro 0 unit 08/19/20 07:30 Insulin Lispro 100 Unit/Ml 3 Ml Vial SUBCUT QIDACHS [facility] Protocol Ondansetron HCl 4 mg 08/18/20 23:57 Ondansetron Hcl 4 Mg/2 Ml Vial IVPUSH Q8H PRN Nausea and Vomiting Oxycodone HCl 5 mg 08/18/20 23:57 08/19/20 07:33 Oxycodone Hcl Immed Release 5 Mg Tablet PO 5 mg Q6H PRN Administration Pain, Severe (Pain Scale 7-10) Pharmacy Consult 1 each 08/18/20 16:48 Consult Rx Vancomycin Dosing MISCELLANE DAILY PRN Consult order Potassium Chloride 40 meq 08/19/20 05:15 08/19/20 05:31 Potassium Chloride Packet 20 Meq Packet PO 08/19/20 09:16 40 meq Q4H JOEL Administration Sodium Chloride 3 ml 08/19/20 00:00 08/19/20 07:33 0.9 % Sodium Chloride Flush 3 Ml Syringe IVFLUSH 3 ml QSHIFT JOEL Administration Labs CBC & Chem 7: 08/19/20 06:04 08/19/20 06:04 Assessment and Plan (1) Osteomyelitis of great toe of left foot: Status: Acute (2) Hypocalcemia: Status: Acute (3) MARY KATE (acute kidney injury): Status: Acute (4) Acute hypokalemia: Status: Acute Assessment and Plan: 65-year-old female with history of diabetes as well as severe peripheral vascular disease who presents to the hospital with worsening infection of the left great toe, for which she was on Cephalexin # Osteomyelitis of the great toe of the left foot, with elevated ESR, CRP, drainage of the toe, discoloration, -Surgery consult -ID consult -Get MRI to confirm -follow cultures -continue Cefepime and Vanco D2 # MARY KATE, mild on CKD, hydrate and reassess, monitor vanco for toxicity, repeat tomorrow # hypokalemia--repleted - will replete - follow BMP # hypocalcemia--d/t low albumin, calculated calcium is 7 -she takes calcium supplement at home, continue # Hypertension--controlled -continue amlodipine, metoprolol # Diabetes--continue holme humalog 10 tid and addition to ssi, diabetic diet # Hypothyroidism - continue levothyroxine # history of severe peripheral vascular disease - continue statin, Plavix, cilostazol and aspirin HLD--Lipitor DVT prophylaxis: SCDs in anticipation of possible surgical intervention CPR : DNR/DNI
[2020-08-19 08:02] LABS: Anion Gap 14 (12-20); Blood Urea Nitrogen 26 mg/dL (9-16); Carbon Dioxide 21 mmol/L (22-29); Chloride 106 mmol/L (96-108); Estimated Glomerular Filt Rate 22; Glucose Random 193 mg/dL (60-115); Potassium 3.8 mmol/L (3.3-5.1); Sodium 137 mmol/L (135-145)
[2020-08-19] MEDS: Cholecalciferol (Vitamin D3) 25 MCG TABLET PO (09:45)
[2020-08-19] MEDS: Calcium + Vitamin D 250 MG TABLET 500 MG PO ×2 (09:46→21:00)
[2020-08-19] MEDS: Pregabalin 150 MG CAPSULE PO ×2 (09:46→21:00)
[2020-08-19] MEDS: Venlafaxine HCl ER 37.5 MG CAP.ER.24H PO (09:46)
[2020-08-19] MEDS: Levothyroxine Sodium 25 MCG TABLET PO (09:46)
[2020-08-19] MEDS: Loratadine 10 MG TABLET PO (09:46)
[2020-08-19] MEDS: amLODIPine Besylate 2.5 MG TABLET PO (09:46)
[2020-08-19] MEDS: Ferrous Sulfate 324 MG TABLET.DR PO (09:46)
[2020-08-19] MEDS: Aspirin Enteric Coated 81 MG TABLET.DR PO (09:46)
[2020-08-19] MEDS: Clopidogrel Bisulfate 75 MG TABLET PO (09:46)
[2020-08-19] MEDS: Metoprolol Tartrate 25 MG TABLET PO ×2 (09:46→21:00)
--- NOTE | 2020-08-19 11:02 | PC.NURSE ---
Dr Padilla is enterprise solutions architect for surgery today and recommanded to consult vascular regarding osteomyelitis of left great toe. Order placed by this RN.
--- NOTE | 2020-08-19 11:11 | P.CDIC_ITS ---
CDI Concurrent Query Service Date: 08/19/20 Documentation Clarification: Please clarify if you are treating a proba ble/suspected/likely or confirmed: Acute Osteomyelitis due to Diabetes Mellitus Acute Osteomyelitis due to PVD Acute Osteomyelitis due to post operative complication s/p Left Popliteal stent 07/06/20 PLEASE DO NOT DELETE/MODIFY EXISTING CONTENT Additional information is needed in order to code to the highest accuracy and appropriate Severity of Illness (SOI). Please clarify the information noted below in your progress notes and discharge summary. Risk Factors/Clinical Indicators/Treatments 65 year old female admitted with Left Great Toe Osteomyelitis MRI pending X-ray foot: worsening infection left great toe PMH: Poorly controlled Diabetes Mellitus, Neuropathy, PVD, Left popliteal stent on 07/06/20. Surgery and ID consults pending Treated with IV antibiotic CDS: Joyce Haynes RN Contact Number: [phone] Please Review the information above and exercise your independent professional judgment in responding to the query. If you concur, pleas document in the PROGRESS NOTES and DISCHARGE SUMMARY. If you do not agree with the query, please document in the query above. THIS QUERY IS PART OF THE PERMANENT MEDICAL RECORD
[2020-08-19 11:45] LABS: Glucose, Whole Blood 223 mg/dL (60-115)
--- NOTE | 2020-08-19 11:54 | MHC.CM.PN ---
IMM 08/19/20. 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 PT REPORTS SHE HAS DIABETIC SUPPLIES MONITORS BS 2-3 X DAY, A CANE AND WHEELED WALKER AND REPORTS SHE USES BOTH AND NO OTHER DME. PT VEIFIES PCP, PHARMACY AND DENIES HAVING A HCP BUT WOULD LIKE TO COMPLETE ONE PRIOR TO D/C. D/C PLAN: ANTICIPATE EARLY NEXT WEEK HOME W/COMFORT PLUS CAREGIVERS AND HI FOR IV ABX VS STR (IF ABX MULTIPLE TIMES A DAY), FAMILY VS BLS TRANSPORT. CM ATTEMPTED TO CALL [facility] SAMIRA MEJIA AT 11:45AM TO SEE IF SHE WOULD BE WILLING TO COME AND LEARN IV, NO ANSWER LEFT W/CM CONTACT INFO.
[2020-08-19] MEDS: Insulin Lispro 100 UNIT/ML 3 ML VIAL 10 UNIT SUBCUT (12:11)
[2020-08-19] MEDS: Insulin Lispro 100 UNIT/ML 3 ML VIAL SUBCUT (12:11)
[2020-08-19] MEDS: cilostazoL 100 MG TABLET PO ×2 (12:13→21:00)
--- NOTE | 2020-08-19 13:26 | PM.CNGS ---
History of Present Illness Consult details Consult date: 08/19/20 Reason for consult: wound care Narrative: 65-year-old female well known to me for nonhealing left lower extremity ulcer. She had actually undergone endovascular intervention a few weeks prior. Appeared to be doing relatively well. Pain continue to progress of the foot. She presented to the hospital. She was also noted to be acute on chronic kidney injury. Of note she has undergone an MRI which is concerning for osteomyelitis as well. She now presents for vascular evaluation Review of Systems Review of Systems: Yes all other systems are reviewed and are negative Constitutional: Constitutional: Reports no additional constitutional complaints ENT: Reports Normal hearing present Cardiovascular: Cardiovascular: Denies chest pain, Denies chest pain at rest, Denies chest pain with activity and Denies pedal edema Respiratory: Respiratory: Denies cough Gastrointestinal: Gastrointestinal: Denies abdominal pain Musculoskeletal: Musculoskeletal: Denies abnormal gait, Denies muscle cramps and Denies radiating pain into limb Integumentary/Breasts: Skin/Breast: Denies skin ulcer and Denies wounds Neurologic: Reports Normal hearing present and Denies abnormal gait Psychiatric: Psychiatric: Reports no additional psychiatric complaints PMF Past Medical History Medical History Anemia Asthma-COPD overlap syndrome Diabetes HTN (hypertension) Hypercholesteremia Hypothyroidism Neuropathy Social History Social History Household Members: Other Housing: Apartment Do you presently have 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 or other home services: Yes Patient Tobacco Use Status: Former Tobacco user Use of substances other than those prescribed or required for medical reasons: No Currently Displaying Signs/Symptoms of Drug Intoxication Withdrawal: No Have you been hit, kicked, punched, or otherwise hurt by someone within the past year? If so, by whom?: No Do you feel safe in your current relationship?: No Current Relationship Is there a partner from a previous relationship who is making you feel unsafe now?: No Are you made to feel afraid or neglected: No Advance Directives: Yes Advance Directives Information Provided: Yes Advance Directives on File: No Advance Directives Date on File: 08/18/20 Do you have thoughts of harming others: None Do you have a plan to hurt others: No Plan Recently lost weight without trying: No Eating poorly because of decreased appetite: No Nutrition Risks: No Nutritional Risk service: No Current occupational status: disabled Meds Allergies Allergy/AdvReac Type Severity Reaction Status Date / Time ALLYSSA Inhibitors Allergy Mild COUGH Verified 08/11/20 14:06 [ALLYSSA INHIBITORS] cilostazol [CILOSTAZOL] Allergy Mild COUGH Verified 08/11/20 14:06 Active Medications: Current Medications Generic Name Dose Route Start Last Admin Trade Name Freq PRN Reason Stop Dose Admin Acetaminophen 650 mg 08/18/20 23:57 08/19/20 12:12 Acetaminophen 325 Mg Tablet PO 650 mg Q6H PRN Administration Pain, Mild (Pain Scale 1-3) Amlodipine Besylate 2.5 mg 08/19/20 09:00 08/19/20 09:46 Amlodipine Besylate 2.5 Mg Tablet PO 2.5 mg DAILY [facility] Administration Protocol Aspirin 81 mg 08/19/20 09:00 08/19/20 09:46 Aspirin Enteric Coated 81 Mg Tablet. PO 81 mg DAILY [facility] Administration Atorvastatin Calcium 80 mg 08/19/20 21:00 Atorvastatin Calcium 80 Mg Tablet PO BEDTIME [facility] Calcium Carbonate/Cholecalciferol 500 mg 08/19/20 09:00 08/19/20 09:46 Calcium + Vitamin D 250 Mg Tablet PO 500 mg BID [facility] Administration Cilostazol 100 mg 08/19/20 12:00 08/19/20 12:13 Cilostazol 100 Mg Tablet PO 100 mg BID@1200,2100 [facility] Administration Clopidogrel Bisulfate 75 mg 08/19/20 09:00 08/19/20 09:46 Clopidogrel Bisulfate 75 Mg Tablet PO 75 mg DAILY [facility] Administration Docusate Sodium 100 mg 08/18/20 23:57 Docusate Sodium 100 Mg Capsule PO DAILY PRN Constipation Ferrous Sulfate 324 mg 08/19/20 09:00 08/19/20 09:46 Ferrous Sulfate 324 Mg Tablet. PO 324 mg DAILY [facility] Administration Vancomycin HCl 750 mg/ Sodium 265 mls @ 265 mls/hr 08/19/20 21:00 Chloride IV Q24H [facility] Sodium Chloride 1,000 mls @ 100 mls/hr 08/18/20 23:57 08/19/20 10:24 Ns IVCONT 100 mls/hr .Q10H [facility] Infusion Cefepime HCl 1 gm/ Sodium 50 mls @ 100 mls/hr 08/19/20 00:00 08/19/20 10:24 Chloride IV Infused Q8H [facility] Infusion Insulin Human Lispro 0 unit 08/19/20 07:30 08/19/20 12:11 Insulin Lispro 100 Unit/Ml 3 Ml Vial SUBCUT 4 unit QIDACHS [facility] Administration Protocol Insulin Human Lispro 10 unit 08/19/20 11:30 08/19/20 12:11 Insulin Lispro 100 Unit/Ml 3 Ml Vial SUBCUT 10 unit TIDAC [facility] Administration Levothyroxine Sodium 25 mcg 08/19/20 08:45 08/19/20 09:46 Levothyroxine Sodium 25 Mcg Tablet PO 25 mcg DAILY@0600 [facility] Administration Loratadine 10 mg 08/19/20 09:00 08/19/20 09:46 Loratadine 10 Mg Tablet PO 10 mg DAILY [facility] Administration Metoprolol Tartrate 25 mg 08/19/20 09:00 08/19/20 09:46 Metoprolol Tartrate 25 Mg Tablet PO 25 mg BID [facility] Administration Protocol Montelukast Sodium 10 mg 08/19/20 21:00 Montelukast Sodium 10 Mg Tablet PO BEDTIME [facility] Ondansetron HCl 4 mg 08/18/20 23:57 Ondansetron Hcl 4 Mg/2 Ml Vial IVPUSH Q8H PRN Nausea and Vomiting Oxycodone HCl 5 mg 08/18/20 23:57 08/19/20 12:12 Oxycodone Hcl Immed Release 5 Mg Tablet PO 5 mg Q6H PRN Administration Pain, Severe (Pain Scale 7-10) Pharmacy Consult 1 each 08/18/20 16:48 Consult Rx Vancomycin Dosing MISCELLANE DAILY PRN Consult order Pregabalin 150 mg 08/19/20 09:00 08/19/20 09:46 Pregabalin 150 Mg Capsule PO 150 mg BID [facility] Administration Sodium Chloride 3 ml 08/19/20 00:00 08/19/20 07:33 0.9 % Sodium Chloride Flush 3 Ml Syringe IVFLUSH 3 ml QSHIFT [facility] Administration Venlafaxine HCl 37.5 mg 08/19/20 09:00 08/19/20 09:46 Venlafaxine Hcl Er 37.5 Mg Cap.Er.24h PO 37.5 mg DAILY [facility] Administration Vitamin D 25 mcg 08/19/20 09:00 08/19/20 09:45 Cholecalciferol (Vitamin D3) 25 Mcg Tablet PO 25 mcg DAILY [facility] Administration Home Medications Medication Instructions Recorded Confirmed Last Taken Type amlodipine 1 tab PO QAM 05/17/20 08/19/20 08/17/20 08:30 History aspirin 1 tab PO QAM 05/17/20 08/19/20 08/17/20 08:30 History atorvastatin 1 tab PO BEDTIME 05/17/20 08/19/20 08/17/20 20:00 History cholecalciferol (vitamin D3) 1 cap PO QAM 05/17/20 08/19/20 08/17/20 08:30 History [Vitamin D3] cilostazol 100 mg PO BID@1200,2100 05/17/20 08/19/20 08/17/20 20:00 History clopidogrel 1 tab PO QAM 05/17/20 08/19/20 08/17/20 08:30 History ferrous sulfate 1 tab PO QAM 05/17/20 08/19/20 08/17/20 08:30 History insulin lispro [Humalog KwikPen 10 unit SUBCUT TIDAC 05/17/20 08/19/20 08/17/20 19:00 History Insulin] 40 units levothyroxine 1 tab PO QAM 05/17/20 08/19/20 08/18/20 20:30 History loratadine 1 tab PO QAM 05/17/20 08/19/20 08/18/20 20:30 History metoprolol tartrate 1 tab PO BID 05/17/20 08/19/20 08/17/20 20:00 History montelukast 1 tab PO BEDTIME 05/17/20 08/19/20 08/17/20 20:00 History pregabalin 1 cap PO BID 05/17/20 08/19/20 08/17/20 20:00 History venlafaxine 1 cap PO QAM 05/17/20 08/19/20 08/18/20 08:30 History Physical Exam Vital Signs: Vital Signs: Last Vital Signs Temp 98.0 F 08/19/20 11:35 Pulse 81 08/19/20 11:35 Resp 18 08/19/20 11:35 BP 120/59 L 08/19/20 11:35 Pulse Ox 91 L 08/19/20 11:35 Body Mass Index 32.0 Const: General: cooperative, healthy appearing and comfortable Orientation/consciousness: oriented to person, oriented to place and oriented to time HENMT: Head: Yes normal to inspection Neck: Neck: Yes normal visual inspection Carotids: no bruits Chest: Chest palpation & inspection: normal inspection of the chest Resp: Effort & Inspection: normal respiratory effort and able to speak in complete sentences Auscultation: clear to auscultation bilaterally, no crackles, no rales, no rhonchi and no wheezes Cardio: Rate: regular rate Rhythm: regular rhythm Heart sounds: S1 normal heart sound present and S2 normal heart sound present Bruits: no carotid bruits Peripheral pulses: dorsalis pedis present (Bilateral DP signals) GI: Inspection: Yes normal to inspection Skin: Wounds: wounds noted (Left great toe tender open wound) Hair: normal Neuro: General: oriented to person, oriented to place and oriented to time Cranial nerves: Yes CN's II-XII intact bilaterally and Yes Normal hearing present Cognition (Neuro): normal cognition Motor exam (neuro): 5/5 motor strength present throughout Extrem: Other: venous exam: No significant superficial varicosities or spider telangiectasias, minimal edema General: No clubbing, No cyanosis and No edema Psych: Appearance: grossly normal Mental Status: mental status grossly normal Speech and movement: Normal speech and movement present Results Labs Result diagrams: 08/19/20 06:04 08/19/20 06:04 Labs: Abnormal lab results 08/18/20 08/18/20 08/18/20 Range/Units 15:00 15:00 15:00 WBC 12.2 H (4.8-10.8) X10*3/uL RBC 3.70 L (4.20-5.50) X10*6/uL Hgb 10.2 L (12.0-16.0) g/dl Hct 31.6 L (37-47) % Immature Gran % (Auto) 0.7 H (0.0-0.4) % Neut % (Auto) 82.5 H (45-73) % Lymph % (Auto) 7.1 L (20-40) % [place] % (Auto) (2-11) % Lymph # (Auto) 0.9 L (1.2-4.9) X10*3/uL [place] # (Auto) (0.1-1.2) X10*3/uL Abs Immat Gran (auto) 0.09 H (0.00-0.03) X10*3/uL Absolute Neuts (auto) 10.1 H (2.0-8.3) X10*3/uL ESR 100 H (0-20) MM/HR PT 14.7 H D (10.8-13.0) SEC INR 1.2 H (0.9-1.1) Sodium (135-145) mmol/L Potassium (3.3-5.1) mmol/L Carbon Dioxide (22-29) mmol/L BUN (9-16) mg/dL Creatinine (0.5-1.4) mg/dL POC Glucose (60-115) mg/dL Random Glucose (60-115) mg/dL Calcium (8.4-10.2) mg/dL C-Reactive Protein (< or = 0.50) mg/dL Albumin (3.5-5.0) g/dL 08/18/20 08/19/20 08/19/20 Range/Units 15:00 06:04 06:04 WBC 12.0 H (4.8-10.8) X10*3/uL RBC 3.57 L (4.20-5.50) X10*6/uL Hgb 9.8 L (12.0-16.0) g/dl Hct 31.3 L (37-47) % Immature Gran % (Auto) 0.5 H (0.0-0.4) % Neut % (Auto) (45-73) % Lymph % (Auto) 12.5 L (20-40) % [place] % (Auto) 11.3 H (2-11) % Lymph # (Auto) (1.2-4.9) X10*3/uL [place] # (Auto) 1.4 H (0.1-1.2) X10*3/uL Abs Immat Gran (auto) 0.06 H (0.00-0.03) X10*3/uL Absolute Neuts (auto) 8.7 H (2.0-8.3) X10*3/uL ESR (0-20) MM/HR PT (10.8-13.0) SEC INR (0.9-1.1) Sodium 134 L (135-145) mmol/L Potassium 3.2 L (3.3-5.1) mmol/L Carbon Dioxide 21 L (22-29) mmol/L BUN 26 H 26 H (9-16) mg/dL Creatinine 2.31 H 2.26 H (0.5-1.4) mg/dL POC Glucose (60-115) mg/dL Random Glucose 363 H* 193 H D (60-115) mg/dL Calcium 5.8 L* D 6.0 L* (8.4-10.2) mg/dL C-Reactive Protein 23.18 H (< or = 0.50) mg/dL Albumin 2.8 L (3.5-5.0) g/dL 08/19/20 08/19/20 Range/Units 07:45 11:32 WBC (4.8-10.8) X10*3/uL RBC (4.20-5.50) X10*6/uL Hgb (12.0-16.0) g/dl Hct (37-47) % Immature Gran % (Auto) (0.0-0.4) % Neut % (Auto) (45-73) % Lymph % (Auto) (20-40) % [place] % (Auto) (2-11) % Lymph # (Auto) (1.2-4.9) X10*3/uL [place] # (Auto) (0.1-1.2) X10*3/uL Abs Immat Gran (auto) (0.00-0.03) X10*3/uL Absolute Neuts (auto) (2.0-8.3) X10*3/uL ESR (0-20) MM/HR PT (10.8-13.0) SEC INR (0.9-1.1) Sodium (135-145) mmol/L Potassium (3.3-5.1) mmol/L Carbon Dioxide (22-29) mmol/L BUN (9-16) mg/dL Creatinine (0.5-1.4) mg/dL POC Glucose 168 H 223 H (60-115) mg/dL Random Glucose (60-115) mg/dL Calcium (8.4-10.2) mg/dL C-Reactive Protein (< or = 0.50) mg/dL Albumin (3.5-5.0) g/dL Short CBC 08/18/20 08/19/20 Range/Units 15:00 06:04 WBC 12.2 H 12.0 H (4.8-10.8) X10*3/uL Hgb 10.2 L 9.8 L (12.0-16.0) g/dl Hct 31.6 L 31.3 L (37-47) % Plt Count 198 191 (160-400) X10*3/uL BMP 08/18/20 08/19/20 15:00 06:04 Sodium 134 L 137 Potassium 3.2 L 3.8 Chloride 100 106 Carbon Dioxide 24 21 L BUN 26 H 26 H Creatinine 2.31 H 2.26 H Calcium 5.8 L* D 6.0 L* Liver Function 08/18/20 Range/Units 15:00 Total Bilirubin 0.6 (0.0-1.0) mg/dL AST 24 D (5-31) U/L ALT 10 (0-31) U/L Alkaline Phosphatase 76 D (39-117) U/L Albumin 2.8 L (3.5-5.0) g/dL All other labs normal. Assessment and Plan (1) PAD (peripheral artery disease): Status: Acute Patient has undergone endovascular intervention on 06/27/2020. Left great toe continues to progress. I did change the dressing. It does appear open but is quite tender. I have taken the liberty of ordering noninvasive arterial testing. Should that come back within normal limits I do believe the next step will be amputation of the left great toe. This was related to the patient. She is at high risk for at minimal toe loss. MRI results were reviewed. Thank you for allowing us to assist in her care. If there are any questions or concerns please do not hesitate to contact us. Procedures Date of Service Date of Service: 08/19/20
[2020-08-19 16:21] LABS: Glucose, Whole Blood 168 mg/dL (60-115)
--- NOTE | 2020-08-19 16:22 | W.PM.IDCN ---
History of Present Illness Data of Consult Service Date: 08/19/20 Requesting physician: Alex Monzon Primary Care Provider: Senait Pal MD HPI Reason for consult: osteomyelitis left foot She presents to hospital with three days LLE pain/redness left foot. She has MRI osteomyelitis great toe and septic tenosynovitis first metatarsal. She has diabetes with poor control,glycohemoglobin of 11.5 Review of Systems Review of Systems: Yes all other systems are reviewed and are negative PMFSH Past Medical History Medical History Anemia Asthma-COPD overlap syndrome Diabetes HTN (hypertension) Hypercholesteremia Hypothyroidism Neuropathy Family History Family history: reviewed and not pertinent Social History Social History Household Members: Other Housing: Apartment Do you presently have 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 or other home services: Yes Patient Tobacco Use Status: Former Tobacco user Use of substances other than those prescribed or required for medical reasons: No Currently Displaying Signs/Symptoms of Drug Intoxication Withdrawal: No Have you been hit, kicked, punched, or otherwise hurt by someone within the past year? If so, by whom?: No Do you feel safe in your current relationship?: No Current Relationship Is there a partner from a previous relationship who is making you feel unsafe now?: No Are you made to feel afraid or neglected: No Advance Directives: Yes Advance Directives Information Provided: Yes Advance Directives on File: No Advance Directives Date on File: 08/18/20 Do you have thoughts of harming others: None Do you have a plan to hurt others: No Plan Recently lost weight without trying: No Eating poorly because of decreased appetite: No Nutrition Risks: No Nutritional Risk service: No Current occupational status: disabled Meds Allergies Allergy/AdvReac Type Severity Reaction Status Date / Time ALLYSSA Inhibitors Allergy Mild COUGH Verified 08/11/20 14:06 [ALLYSSA INHIBITORS] cilostazol [CILOSTAZOL] Allergy Mild COUGH Verified 08/11/20 14:06 Active Medications: Current Medications Generic Name Dose Route Start Last Admin Trade Name Freq PRN Reason Stop Dose Admin Acetaminophen 650 mg 08/18/20 23:57 08/19/20 12:12 Acetaminophen 325 Mg Tablet PO 650 mg Q6H PRN Administration Pain, Mild (Pain Scale 1-3) Amlodipine Besylate 2.5 mg 08/19/20 09:00 08/19/20 09:46 Amlodipine Besylate 2.5 Mg Tablet PO 2.5 mg DAILY [facility] Administration Protocol Aspirin 81 mg 08/19/20 09:00 08/19/20 09:46 Aspirin Enteric Coated 81 Mg Tablet. PO 81 mg DAILY [facility] Administration Atorvastatin Calcium 80 mg 08/19/20 21:00 Atorvastatin Calcium 80 Mg Tablet PO BEDTIME [facility] Calcium Carbonate/Cholecalciferol 500 mg 08/19/20 09:00 08/19/20 09:46 Calcium + Vitamin D 250 Mg Tablet PO 500 mg BID [facility] Administration Cilostazol 100 mg 08/19/20 12:00 08/19/20 12:13 Cilostazol 100 Mg Tablet PO 100 mg BID@1200,2100 [facility] Administration Clopidogrel Bisulfate 75 mg 08/19/20 09:00 08/19/20 09:46 Clopidogrel Bisulfate 75 Mg Tablet PO 75 mg DAILY [facility] Administration Docusate Sodium 100 mg 08/18/20 23:57 Docusate Sodium 100 Mg Capsule PO DAILY PRN Constipation Ferrous Sulfate 324 mg 08/19/20 09:00 08/19/20 09:46 Ferrous Sulfate 324 Mg Tablet. PO 324 mg DAILY [facility] Administration Vancomycin HCl 750 mg/ Sodium 265 mls @ 265 mls/hr 08/19/20 21:00 Chloride IV Q24H [facility] Sodium Chloride 1,000 mls @ 100 mls/hr 08/18/20 23:57 08/19/20 10:24 Ns IVCONT 100 mls/hr .Q10H [facility] Infusion Cefepime HCl 1 gm/ Sodium 50 mls @ 100 mls/hr 08/19/20 00:00 08/19/20 10:24 Chloride IV Infused Q8H [facility] Infusion Insulin Human Lispro 0 unit 08/19/20 07:30 08/19/20 12:11 Insulin Lispro 100 Unit/Ml 3 Ml Vial SUBCUT 4 unit QIDACHS [facility] Administration Protocol Insulin Human Lispro 10 unit 08/19/20 11:30 08/19/20 12:11 Insulin Lispro 100 Unit/Ml 3 Ml Vial SUBCUT 10 unit TIDAC [facility] Administration Levothyroxine Sodium 25 mcg 08/19/20 08:45 08/19/20 09:46 Levothyroxine Sodium 25 Mcg Tablet PO 25 mcg DAILY@0600 [facility] Administration Loratadine 10 mg 08/19/20 09:00 08/19/20 09:46 Loratadine 10 Mg Tablet PO 10 mg DAILY [facility] Administration Metoprolol Tartrate 25 mg 08/19/20 09:00 08/19/20 09:46 Metoprolol Tartrate 25 Mg Tablet PO 25 mg BID [facility] Administration Protocol Montelukast Sodium 10 mg 08/19/20 21:00 Montelukast Sodium 10 Mg Tablet PO BEDTIME [facility] Ondansetron HCl 4 mg 08/18/20 23:57 Ondansetron Hcl 4 Mg/2 Ml Vial IVPUSH Q8H PRN Nausea and Vomiting Oxycodone HCl 5 mg 08/18/20 23:57 08/19/20 12:12 Oxycodone Hcl Immed Release 5 Mg Tablet PO 5 mg Q6H PRN Administration Pain, Severe (Pain Scale 7-10) Pharmacy Consult 1 each 08/18/20 16:48 Consult Rx Vancomycin Dosing MISCELLANE DAILY PRN Consult order Pregabalin 150 mg 08/19/20 09:00 08/19/20 09:46 Pregabalin 150 Mg Capsule PO 150 mg BID [facility] Administration Sodium Chloride 3 ml 08/19/20 00:00 08/19/20 07:33 0.9 % Sodium Chloride Flush 3 Ml Syringe IVFLUSH 3 ml QSHIFT [facility] Administration Venlafaxine HCl 37.5 mg 08/19/20 09:00 08/19/20 09:46 Venlafaxine Hcl Er 37.5 Mg Cap.Er.24h PO 37.5 mg DAILY [facility] Administration Vitamin D 25 mcg 08/19/20 09:00 08/19/20 09:45 Cholecalciferol (Vitamin D3) 25 Mcg Tablet PO 25 mcg DAILY [facility] Administration Home Medications Medication Instructions Recorded Confirmed Last Taken Type amlodipine 1 tab PO QAM 05/17/20 08/19/20 08/17/20 08:30 History aspirin 1 tab PO QAM 05/17/20 08/19/20 08/17/20 08:30 History atorvastatin 1 tab PO BEDTIME 05/17/20 08/19/20 08/17/20 20:00 History cholecalciferol (vitamin D3) 1 cap PO QAM 05/17/20 08/19/20 08/17/20 08:30 History [Vitamin D3] cilostazol 100 mg PO BID@1200,2100 05/17/20 08/19/20 08/17/20 20:00 History clopidogrel 1 tab PO QAM 05/17/20 08/19/20 08/17/20 08:30 History ferrous sulfate 1 tab PO QAM 05/17/20 08/19/20 08/17/20 08:30 History insulin lispro [Humalog KwikPen 10 unit SUBCUT TIDAC 05/17/20 08/19/20 08/17/20 19:00 History Insulin] 40 units levothyroxine 1 tab PO QAM 05/17/20 08/19/20 08/18/20 20:30 History loratadine 1 tab PO QAM 05/17/20 08/19/20 08/18/20 20:30 History metoprolol tartrate 1 tab PO BID 05/17/20 08/19/20 08/17/20 20:00 History montelukast 1 tab PO BEDTIME 05/17/20 08/19/20 08/17/20 20:00 History pregabalin 1 cap PO BID 05/17/20 08/19/20 08/17/20 20:00 History venlafaxine 1 cap PO QAM 05/17/20 08/19/20 08/18/20 08:30 History Physical Exam Vital Signs: Vital Signs: Last Vital Signs Temp 98.5 F 08/19/20 15:17 Pulse 72 08/19/20 15:17 Resp 19 08/19/20 15:17 BP 99/52 L 08/19/20 15:17 Pulse Ox 93 08/19/20 15:17 Body Mass Index 32.0 Const: General: cooperative HENMT: Head: Yes atraumatic Mouth: Normal oral and palatal mucosa present Eyes: General: appearance normal, both eyes and all related structures Resp: Effort & Inspection: normal respiratory effort Cardio: Rate: regular rate Rhythm: regular rhythm GI: Palpation (GI): Soft to palpation and nontender : General: Yes no CVA tenderness Back/Spine/Pelvis: Back: no CVA tenderness Skin: General skin exam: no rashes or lesions noted Neuro: Other: neuropathy Extrem: Other: left reddened toe Results Labs CBC & Chem 7: 08/19/20 06:04 08/19/20 06:04 Labs: Short CBC 08/19/20 Range/Units 06:04 WBC 12.0 H (4.8-10.8) X10*3/uL Hgb 9.8 L (12.0-16.0) g/dl Hct 31.3 L (37-47) % Plt Count 191 (160-400) X10*3/uL BMP 08/19/20 06:04 Sodium 137 Potassium 3.8 Chloride 106 Carbon Dioxide 21 L BUN 26 H Creatinine 2.26 H Calcium 6.0 L* Assessment and Plan (1) Osteomyelitis of great toe of left foot: Status: Acute Osteomyelitis great toe with tenosynovitis The organism is unknown Would give outpatient IV Ertapenem if cultures negative for 6 weeks
[2020-08-19 20:17] LABS: Glucose, Whole Blood 160 mg/dL (60-115)
[2020-08-19] MEDS: vancomycin HCL 750 MG in 0.9 % Sodium Chloride 250 ML 265 MG IV (20:59)
[2020-08-19] MEDS: Atorvastatin Calcium 80 MG TABLET PO (21:00)
[2020-08-19] MEDS: Montelukast Sodium 10 MG TABLET PO (21:03)
[2020-08-20] VITALS (9 sets, daily range): BP systolic 100–156; BP diastolic 53–70; PULSE 73–98; RESP 15–20; TEMP 36.2–37.9; O2SAT 92–95
[2020-08-20] MEDS: 0.9 % Sodium Chloride 1,000 ML 100 ML IVCONT (03:14)
[2020-08-20] MEDS: Levothyroxine Sodium 25 MCG TABLET PO (06:17)
[2020-08-20 07:25] LABS: Glucose, Whole Blood 142 mg/dL (60-115)
[2020-08-20] MEDS: Venlafaxine HCl ER 37.5 MG CAP.ER.24H PO (07:59)
[2020-08-20] MEDS: Calcium + Vitamin D 250 MG TABLET 500 MG PO ×2 (07:59→22:17)
[2020-08-20] MEDS: Insulin Lispro 100 UNIT/ML 3 ML VIAL 10 UNIT SUBCUT (07:59)
[2020-08-20] MEDS: Cholecalciferol (Vitamin D3) 25 MCG TABLET PO (08:00)
[2020-08-20] MEDS: Loratadine 10 MG TABLET PO (08:00)
[2020-08-20] MEDS: Clopidogrel Bisulfate 75 MG TABLET PO (08:00)
[2020-08-20] MEDS: Ferrous Sulfate 324 MG TABLET.DR PO (08:00)
[2020-08-20] MEDS: Pregabalin 150 MG CAPSULE PO ×2 (08:00→22:17)
[2020-08-20] MEDS: cefEPime HCl 1 GM in 0.9 % Sodium Chloride 50 ML IV ×2 (08:00→16:39)
[2020-08-20] MEDS: amLODIPine Besylate 2.5 MG TABLET PO (08:00)
[2020-08-20] MEDS: Aspirin Enteric Coated 81 MG TABLET.DR PO (08:00)
[2020-08-20] MEDS: 0.9 % Sodium Chloride Flush 3 ML SYRINGE IVFLUSH (08:00)
[2020-08-20] MEDS: Metoprolol Tartrate 25 MG TABLET PO ×2 (08:00→22:17)
[2020-08-20] MEDS: oxyCODONE HCl Immed Release 5 MG TABLET PO ×2 (08:10→16:46)
--- NOTE | 2020-08-20 08:58 | P.PNIM_ITS ---
Subjective Subjective Date of Service: 08/20/20 Interval History: Seen in f/u infected toe/osteomylitis, has pain in the foot but pain medicine is helping Review of Systems Gen: no fever Resp: no sob, no cough CV: no chest, no TIWARI, no leg edema GI: No n/v, no abd pain Neuro: No confusion MSk pain in left big Physical Exam Vital Signs: Vital Signs: Last Vital Signs Temp 98.5 F 08/20/20 07:20 Pulse 98 08/20/20 07:20 Resp 17 08/20/20 07:20 BP 126/59 L 08/20/20 07:20 Pulse Ox 92 08/20/20 07:20 Body Mass Index 32.0 Const: Other: General: AO X 3, no acute distress Resp: CTA bilateral CVS: S1,S2,RRR GI: +BS, NT, no distention Skin: --see pic from 08/19, essentially unchanged Neuro: motor grossly intact Psych: appropriate affect Objective Data Current Medications Generic Name Dose Route Start Last Admin Trade Name Freedom PRN Reason Stop Dose Admin Acetaminophen 650 mg 08/18/20 23:57 08/19/20 18:44 Acetaminophen 325 Mg Tablet PO 650 mg Q6H PRN Administration Pain, Mild (Pain Scale 1-3) Amlodipine Besylate 2.5 mg 08/19/20 09:00 08/20/20 08:00 Amlodipine Besylate 2.5 Mg Tablet PO 2.5 mg DAILY JOEL Administration Protocol Aspirin 81 mg 08/19/20 09:00 08/20/20 08:00 Aspirin Enteric Coated 81 Mg Tablet. PO 81 mg DAILY JOEL Administration Atorvastatin Calcium 80 mg 08/19/20 21:00 08/19/20 21:00 Atorvastatin Calcium 80 Mg Tablet PO 80 mg BEDTIME JOEL Administration Calcium Carbonate/Cholecalciferol 500 mg 08/19/20 09:00 08/20/20 07:59 Calcium + Vitamin D 250 Mg Tablet PO 500 mg BID JOEL Administration Cilostazol 100 mg 08/19/20 12:00 08/19/20 21:00 Cilostazol 100 Mg Tablet PO 100 mg BID@1200,2100 JOEL Administration Clopidogrel Bisulfate 75 mg 08/19/20 09:00 08/20/20 08:00 Clopidogrel Bisulfate 75 Mg Tablet PO 75 mg DAILY JOEL Administration Docusate Sodium 100 mg 08/18/20 23:57 Docusate Sodium 100 Mg Capsule PO DAILY PRN Constipation Ferrous Sulfate 324 mg 08/19/20 09:00 08/20/20 08:00 Ferrous Sulfate 324 Mg Tablet.Dr PO 324 mg DAILY JOEL Administration Vancomycin HCl 750 mg/ Sodium 265 mls @ 265 mls/hr 08/19/20 21:00 08/19/20 22:02 Chloride IV Infused Q24H JOEL Infusion Sodium Chloride 1,000 mls @ 100 mls/hr 08/18/20 23:57 08/20/20 03:14 Ns IVCONT 100 mls/hr .Q10H JOEL Administration Cefepime HCl 1 gm/ Sodium 50 mls @ 100 mls/hr 08/19/20 00:00 08/20/20 08:49 Chloride IV Infused Q8H JOEL Infusion Insulin Human Lispro 0 unit 08/19/20 07:30 08/20/20 07:59 Insulin Lispro 100 Unit/Ml 3 Ml Vial SUBCUT Not Given QIDACHS [facility] Protocol Insulin Human Lispro 10 unit 08/19/20 11:30 08/20/20 07:59 Insulin Lispro 100 Unit/Ml 3 Ml Vial SUBCUT 10 unit TIDAC [facility] Administration Levothyroxine Sodium 25 mcg 08/19/20 08:45 08/20/20 06:17 Levothyroxine Sodium 25 Mcg Tablet PO 25 mcg DAILY@0600 JOEL Administration Loratadine 10 mg 08/19/20 09:00 08/20/20 08:00 Loratadine 10 Mg Tablet PO 10 mg DAILY JOEL Administration Metoprolol Tartrate 25 mg 08/19/20 09:00 08/20/20 08:00 Metoprolol Tartrate 25 Mg Tablet PO 25 mg BID JOEL Administration Protocol Montelukast Sodium 10 mg 08/19/20 21:00 08/19/20 21:03 Montelukast Sodium 10 Mg Tablet PO 10 mg BEDTIME JOEL Administration Ondansetron HCl 4 mg 08/18/20 23:57 Ondansetron Hcl 4 Mg/2 Ml Vial IVPUSH Q8H PRN Nausea and Vomiting Oxycodone HCl 5 mg 08/18/20 23:57 08/20/20 08:10 Oxycodone Hcl Immed Release 5 Mg Tablet PO 5 mg Q6H PRN Administration Pain, Severe (Pain Scale 7-10) Pharmacy Consult 1 each 08/18/20 16:48 Consult Rx Vancomycin Dosing MISCELLANE DAILY PRN Consult order Pregabalin 150 mg 08/19/20 09:00 08/20/20 08:00 Pregabalin 150 Mg Capsule PO 150 mg BID JOEL Administration Sodium Chloride 3 ml 08/19/20 00:00 08/20/20 08:00 0.9 % Sodium Chloride Flush 3 Ml Syringe IVFLUSH 3 ml QSHIFT JOEL Administration Venlafaxine HCl 37.5 mg 08/19/20 09:00 08/20/20 07:59 Venlafaxine Hcl Er 37.5 Mg Cap.Er.24h PO 37.5 mg DAILY JOEL Administration Vitamin D 25 mcg 08/19/20 09:00 08/20/20 08:00 Cholecalciferol (Vitamin D3) 25 Mcg Tablet PO 25 mcg DAILY JOEL Administration Labs CBC & Chem 7: 08/19/20 06:04 08/20/20 09:44 Microbiology Microbiology Results: Microbiology 08/18/20 16:15 Blood - Venous Blood Culture - Preliminary No growth after 24 hours. 08/18/20 16:15 Blood - Venous Blood Culture - Preliminary No growth after 24 hours. Assessment and Plan (1) Osteomyelitis of great toe of left foot: Status: Acute (2) Hypocalcemia: Status: Acute (3) MARY KATE (acute kidney injury): Status: Acute (4) Acute hypokalemia: Status: Acute Assessment and Plan: 65-year-old female with history of diabetes as well as severe peripheral vascular disease who presents to the hospital with worsening infection of the left great toe, for which she was on Cephalexin # Osteomyelitis of the great toe of the left foot, with elevated ESR, CRP, drainage of the toe, discoloration, -Surgery consult -Get MRI confirms osteomylitis -follow cultures -continue Cefepime, DC Vanco if no evidence of MRSA -ID recommends Ertapenem for 6 weeks if cultures negative, she will need PICC or Midline -Oxycodone and Morphine PRN for pain # MARY KATE, mild on CKD, hydrate and reassess, monitor vanco for toxicity, repeat tomorrow # hypokalemia--repleted # hypocalcemia--d/t low albumin, calculated calcium is 7 -she takes calcium supplement at home, continue # Hypertension--controlled -continue amlodipine, metoprolol # Diabetes--continue holme humalog 10 tid and addition to ssi, diabetic diet # Hypothyroidism - continue levothyroxine # history of severe peripheral vascular disease -Seen by Carrie with the following observation: Patient has undergone endova scular intervention on 06/27/2020. Left great toe continues to progress. I did change the dressing. It does appear open but is quite tender. I have taken the liberty of ordering noninvasive arterial testing. Should that come back within normal limits I do believe the next step will be amputation of the left great toe. This was related to the patient. She is at high risk for at minimal toe loss - continue statin, Plavix, cilostazol and aspirin HLD--Lipitor DVT prophylaxis: SCDs in anticipation of possible surgical intervention CPR : DNR/DNI
[2020-08-20 11:39] LABS: Anion Gap 14 (12-20); Blood Urea Nitrogen 32 mg/dL (9-16); Calcium 5.9 mg/dL (8.4-10.2); Carbon Dioxide 17 mmol/L (22-29); Chloride 109 mmol/L (96-108); Creatinine Clr Calc Pharmacy 18.7; Estimated Glomerular Filt Rate 18; Glucose Random 117 mg/dL (60-115); Potassium 3.9 mmol/L (3.3-5.1); Sodium 136 mmol/L (135-145)
[2020-08-20 11:45] LABS: Glucose, Whole Blood 73 mg/dL (60-115)
[2020-08-20 12:56] LABS: Glucose, Whole Blood 106 mg/dL (60-115)
[2020-08-20] MEDS: cilostazoL 100 MG TABLET PO ×2 (13:26→22:18)
[2020-08-20] MEDS: Acetaminophen 325 MG TABLET 650 MG PO (16:39)
[2020-08-20 16:47] LABS: Glucose, Whole Blood 114 mg/dL (60-115)
--- NOTE | 2020-08-20 18:33 | PM.EVENT ---
Event Note Date of Service: 08/20/20 Event Note: There was some family dispute with Michael and a granddaughter who is 17 and patient's daughter as to who is patient's health care proxy. Pt selected son Michael during last visit in May to be her health proxy, now a daughter and grandaughter seem to be trying to get patient to change her mind causing confusion on patient's part, in the the The nurse Siomara Rosales and I spoke to patient alone without any family and she states that for now he wants son Michael to continue to be her health care proxy and furhtermore wants to be Full code and not DNR..At this time also, patient does not want anothe son (Not Michael) and pt's daughter to come to the hospital. The granddaughter is ok to stay. Siomara Rae RN was present during the entire interaction. We will need to invoke security to prevent an escaltion of the situation
[2020-08-20 20:46] LABS: Glucose, Whole Blood 165 mg/dL (60-115)
[2020-08-20 20:56] LABS: Vancomycin Random 13.8 mcg/mL (15-20)
[2020-08-20] MEDS: Atorvastatin Calcium 80 MG TABLET PO (22:18)
[2020-08-20] MEDS: Montelukast Sodium 10 MG TABLET PO (22:18)
[2020-08-20] MEDS: Insulin Lispro 100 UNIT/ML 3 ML VIAL SUBCUT (22:25)
[2020-08-21] MEDS: cefEPime HCl 1 GM in 0.9 % Sodium Chloride 50 ML IV ×3 (00:24→15:44)
[2020-08-21] MEDS: 0.9 % Sodium Chloride Flush 3 ML SYRINGE IVFLUSH ×4 (00:24→21:29)
--- NOTE | 2020-08-21 02:39 | PC.NURSE ---
Patient's son Javi visiting his mom this evening, at that time he asked to verify that he is the HCP on file. It was confirmed that in fact there is verification that this particular son is HCP from patient's previous admission. There was a disagreement that occurred with other siblings regarding this issue. Dr. Monzon was notified and was at bedside with this RN to discuss matter with patient. Granddaughter and son Javi were present, they were asked to step out of the room. Patient confirmed her wish is to have son Javi remain HCP at this time. Decision was made to not have any visitors for tonight . Son Denilson did come to hospital room although was asked to leave. Nursing Bag Sewer was updated.
[2020-08-21 03:24] VITALS: BP 156/63; PULSE 95; RESP 18; TEMP 36.3; O2SAT 93
[2020-08-21] MEDS: Levothyroxine Sodium 25 MCG TABLET PO (05:55)
[2020-08-21 07:19] VITALS: BP 133/61; PULSE 102; RESP 21; TEMP 37.6; O2SAT 91
[2020-08-21 07:26] LABS: Glucose, Whole Blood 142 mg/dL (60-115)
[2020-08-21] MEDS: Metoprolol Tartrate 25 MG TABLET PO ×2 (08:35→21:30)
[2020-08-21] MEDS: Pregabalin 150 MG CAPSULE PO ×2 (08:35→21:30)
[2020-08-21] MEDS: Clopidogrel Bisulfate 75 MG TABLET PO (08:35)
[2020-08-21] MEDS: Cholecalciferol (Vitamin D3) 25 MCG TABLET PO (08:35)
[2020-08-21] MEDS: Aspirin Enteric Coated 81 MG TABLET.DR PO (08:35)
[2020-08-21] MEDS: amLODIPine Besylate 2.5 MG TABLET PO (08:35)
[2020-08-21] MEDS: Calcium + Vitamin D 250 MG TABLET 500 MG PO ×2 (08:35→21:30)
[2020-08-21] MEDS: Ferrous Sulfate 324 MG TABLET.DR PO (08:35)
[2020-08-21] MEDS: Venlafaxine HCl ER 37.5 MG CAP.ER.24H PO (08:35)
[2020-08-21] MEDS: Loratadine 10 MG TABLET PO (08:39)
--- NOTE | 2020-08-21 08:47 | P.PNIM_ITS ---
Subjective Subjective Date of Service: 08/22/20 Interval History: Seen in f/u infected toe/osteomylitis, pain is controlled, she has some general tremors, feels anxious Review of Systems Gen: no fever Resp: no sob, no cough CV: no chest, no TIWARI, no leg edema GI: No n/v, no abd pain Neuro: No confusion MSk pain in left big Physical Exam Vital Signs: Vital Signs: Last Vital Signs Temp 99.7 F 08/21/20 07:19 Pulse 102 H 08/21/20 07:19 Resp 21 H 08/21/20 07:19 BP 133/61 08/21/20 07:19 Pulse Ox 91 L 08/21/20 07:19 Body Mass Index 32.0 Const: Other: General: AO X 3, no acute distress Resp: CTA bilateral CVS: S1,S2,RRR GI: +BS, NT, no distention Skin: -- Neuro: motor grossly intact Psych: appropriate affect Objective Data Current Medications Generic Name Dose Route Start Last Admin Trade Name Freedom PRN Reason Stop Dose Admin Acetaminophen 650 mg 08/18/20 23:57 08/20/20 16:39 Acetaminophen 325 Mg Tablet PO 650 mg Q6H PRN Administration Pain, Mild (Pain Scale 1-3) Amlodipine Besylate 2.5 mg 08/19/20 09:00 08/21/20 08:35 Amlodipine Besylate 2.5 Mg Tablet PO 2.5 mg DAILY JOEL Administration Protocol Aspirin 81 mg 08/19/20 09:00 08/21/20 08:35 Aspirin Enteric Coated 81 Mg Tablet. PO 81 mg DAILY JOEL Administration Atorvastatin Calcium 80 mg 08/19/20 21:00 08/20/20 22:18 Atorvastatin Calcium 80 Mg Tablet PO 80 mg BEDTIME JOEL Administration Calcium Carbonate/Cholecalciferol 500 mg 08/19/20 09:00 08/21/20 08:35 Calcium + Vitamin D 250 Mg Tablet PO 500 mg BID JOEL Administration Cilostazol 100 mg 08/19/20 12:00 08/20/20 22:18 Cilostazol 100 Mg Tablet PO 100 mg BID@1200,2100 JOEL Administration Clopidogrel Bisulfate 75 mg 08/19/20 09:00 08/21/20 08:35 Clopidogrel Bisulfate 75 Mg Tablet PO 75 mg DAILY JOEL Administration Docusate Sodium 100 mg 06/03/21 23:57 Docusate Sodium 100 Mg Capsule PO DAILY PRN Constipation Ferrous Sulfate 324 mg 08/19/20 09:00 08/21/20 08:35 Ferrous Sulfate 324 Mg Tablet.Dr PO 324 mg DAILY JOEL Administration Cefepime HCl 1 gm/ Sodium 50 mls @ 100 mls/hr 08/19/20 00:00 08/21/20 08:35 Chloride IV 100 mls/hr Q8H JOEL Administration Insulin Human Lispro 0 unit 08/19/20 07:30 08/21/20 07:43 Insulin Lispro 100 Unit/Ml 3 Ml Vial SUBCUT Not Given QIDACHS [facility] Protocol Insulin Human Lispro 10 unit 08/19/20 11:30 08/21/20 08:33 Insulin Lispro 100 Unit/Ml 3 Ml Vial SUBCUT Not Given TIDAC [facility] Levothyroxine Sodium 25 mcg 08/19/20 08:45 08/21/20 05:55 Levothyroxine Sodium 25 Mcg Tablet PO 25 mcg DAILY@0600 JOEL Administration Loratadine 10 mg 08/19/20 09:00 08/21/20 08:39 Loratadine 10 Mg Tablet PO 10 mg DAILY JOEL Administration Metoprolol Tartrate 25 mg 08/19/20 09:00 08/21/20 08:35 Metoprolol Tartrate 25 Mg Tablet PO 25 mg BID [facility] Administration Protocol Montelukast Sodium 10 mg 08/19/20 21:00 08/20/20 22:18 Montelukast Sodium 10 Mg Tablet PO 10 mg BEDTIME JOEL Administration Ondansetron HCl 4 mg 08/18/20 23:57 Ondansetron Hcl 4 Mg/2 Ml Vial IVPUSH Q8H PRN Nausea and Vomiting Oxycodone HCl 5 mg 08/18/20 23:57 08/20/20 16:46 Oxycodone Hcl Immed Release 5 Mg Tablet PO 5 mg Q6H PRN Administration Pain, Severe (Pain Scale 7-10) Pharmacy Consult 1 each 08/18/20 16:48 Consult Rx Vancomycin Dosing MISCELLANE DAILY PRN Consult order Pregabalin 150 mg 08/19/20 09:00 08/21/20 08:35 Pregabalin 150 Mg Capsule PO 150 mg BID JOEL Administration Sodium Chloride 3 ml 08/19/20 00:00 08/21/20 08:39 0.9 % Sodium Chloride Flush 3 Ml Syringe IVFLUSH 3 ml QSHIFT JOEL Administration Venlafaxine HCl 37.5 mg 08/19/20 09:00 08/21/20 08:35 Venlafaxine Hcl Er 37.5 Mg Cap.Er.24h PO 37.5 mg DAILY JOEL Administration Vitamin D 25 mcg 08/19/20 09:00 08/21/20 08:35 Cholecalciferol (Vitamin D3) 25 Mcg Tablet PO 25 mcg DAILY JOEL Administration Labs CBC & Chem 7: 08/19/20 06:04 08/22/20 08:07 Microbiology Microbiology Results: Microbiology 08/18/20 16:15 Blood - Venous Blood Culture - Preliminary No growth after 48 hours. 08/18/20 16:15 Blood - Venous Blood Culture - Preliminary No growth after 48 hours. Assessment and Plan (1) Osteomyelitis of great toe of left foot: Status: Acute (2) Hypocalcemia: Status: Acute (3) MARY KATE (acute kidney injury): Status: Acute (4) Acute hypokalemia: Status: Acute (5) Acute kidney injury: Status: Acute Assessment and Plan: 65-year-old female with history of diabetes as well as severe peripheral vascular disease who presents to the hospital with worsening infection of the left great toe, for which she was on Cephalexin # Osteomyelitis of the great toe of the left foot, with elevated ESR, CRP, drainage of the toe, discoloration, -Surgery consult -Get MRI confirms osteomylitis -follow cultures -continue Cefepime, DC Vanco if no evidence of MRSA -ID recommends Ertapenem for 6 weeks if cultures negative, she will need PICC or Midline Saturday -Oxycodone and Morphine PRN for pain # MARY KATE, mild on CKD, hydrate and reassess, monitor vanco for toxicity, repeat tomorrow, Nephrology consult # hypokalemia--repleted # hypocalcemia-- 5.9 with some symptoms, will give IV calcium -she takes calcium supplement at home, continue # Hypertension--controlled -continue amlodipine, metoprolol # Diabetes--continue holme humalog 10 tid and addition to ssi, diabetic diet # Hypothyroidism - continue levothyroxine # history of severe peripheral vascular disease -Seen by Carrie with the following observation: Patient has undergone endovascular intervention on 06/27/2020. Left great toe continues to progress. I did change the dressing. It does appear open but is quite tender. I have taken the liberty of ordering noninvasive arterial testing. Should that come back within normal limits I do believe the next step will be amputation of the left great toe. This was related to the patient. She is at high risk for at minimal toe loss - continue statin, Plavix, cilostazol and aspirin HLD--Lipitor DVT prophylaxis: SCDs in anticipation of possible surgical intervention CPR : DNR/DNI
[2020-08-21] MEDS: Calcium Gluconate/NaCl,Iso-Osm 2 GM/100 ML PLAST..BAG IV (09:19)
[2020-08-21] MEDS: oxyCODONE HCl Immed Release 5 MG TABLET PO (09:19)
[2020-08-21 09:31] LABS: Anion Gap 17 (12-20); Blood Urea Nitrogen 36 mg/dL (9-16); Calcium 6.4 mg/dL (8.4-10.2); Carbon Dioxide 15 mmol/L (22-29); Chloride 106 mmol/L (96-108); Creatinine Clr Calc Pharmacy 15.5; Estimated Glomerular Filt Rate 14; Glucose Random 199 mg/dL (60-115); Potassium 4.5 mmol/L (3.3-5.1); Sodium 133 mmol/L (135-145)
[2020-08-21 11:28] VITALS: BP 132/61; PULSE 86; RESP 18; TEMP 36.7; O2SAT 91
[2020-08-21 11:32] LABS: Glucose, Whole Blood 171 mg/dL (60-115)
[2020-08-21] MEDS: cilostazoL 100 MG TABLET PO ×2 (13:04→21:30)
[2020-08-21] MEDS: Insulin Lispro 100 UNIT/ML 3 ML VIAL SUBCUT ×2 (13:04→15:59)
--- NOTE | 2020-08-21 15:19 | P.CONNP_ITS ---
History of Present Illness Reason for Consult Consult date: 08/21/20 Chief Complaint Chief complaint: osteomyelitis History of Present Illness Narrative: Sarah is a 65 year old female with past medical history of anemia, asthma, diabetes, HTN, HLD, hypothyroidism, neuropathy severe peripheral vascular disease who presented to the hospital with complaints of left big toe worsening infection. Patient reports that the infection started 2 months ago and she has been going to Wound now are every Saturday but on Saturday the pain worsened to 10/10, she noticed swelling as well as drainage from the big toe. She has had fever for the past 3 days up to 102, some chills, some diarrhea, no abdominal pain no nausea or vomiting, no urinary symptoms and otherwise no lower extremity edema. Her creatinine was 2.3 at presentation with a baseline around 1.8-1.98, CRP of 23, ESR of 100, COVID-19 negative. She was admitted for further management. Nephrology has been consulted to assist in her clinical care. Review of Systems Review of Systems Yes all other systems are reviewed and are negative PMFSH Past Medical History Medical History Anemia Asthma-COPD overlap syndrome Diabetes HTN (hypertension) Hypercholesteremia Hypothyroidism Neuropathy Family History Family history: reviewed and not pertinent Social History Social History Household Members: Other Housing: Apartment Do you presently have 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 or other home services: Yes Patient Tobacco Use Status: Former Tobacco user Use of substances other than those prescribed or required for medical reasons: No Currently Displaying Signs/Symptoms of Drug Intoxication Withdrawal: No Have you been hit, kicked, punched, or otherwise hurt by someone within the past year? If so, by whom?: No Do you feel safe in your current relationship?: No Current Relationship Is there a partner from a previous relationship who is making you feel unsafe now?: No Are you made to feel afraid or neglected: No Advance Directives: Yes Advance Directives Information Provided: Yes Advance Directives on File: No Advance Directives Date on File: 08/18/20 Do you have thoughts of harming others: None Do you have a plan to hurt others: No Plan Recently lost weight without trying: No Eating poorly because of decreased appetite: No Nutrition Risks: No Nutritional Risk service: No Current occupational status: disabled Meds Allergies Allergy/AdvReac Type Severity Reaction Status Date / Time ALLYSSA Inhibitors Allergy Mild COUGH Verified 08/11/20 14:06 [ALLYSSA INHIBITORS] cilostazol [CILOSTAZOL] Allergy Mild COUGH Verified 08/11/20 14:06 Active Medications: Current Medications Generic Name Dose Route Start Last Admin Trade Name Freq PRN Reason Stop Dose Admin Acetaminophen 650 mg 08/18/20 23:57 08/20/20 16:39 Acetaminophen 325 Mg Tablet PO 650 mg Q6H PRN Administration Pain, Mild (Pain Scale 1-3) Amlodipine Besylate 2.5 mg 08/19/20 09:00 08/21/20 08:35 Amlodipine Besylate 2.5 Mg Tablet PO 2.5 mg DAILY [facility] Administration Protocol Aspirin 81 mg 08/19/20 09:00 08/21/20 08:35 Aspirin Enteric Coated 81 Mg Tablet. PO 81 mg DAILY JOEL Administration Atorvastatin Calcium 80 mg 08/19/20 21:00 08/20/20 22:18 Atorvastatin Calcium 80 Mg Tablet PO 80 mg BEDTIME JOEL Administration Calcium Carbonate/Cholecalciferol 500 mg 08/19/20 09:00 08/21/20 08:35 Calcium + Vitamin D 250 Mg Tablet PO 500 mg BID JOEL Administration Cilostazol 100 mg 08/19/20 12:00 08/21/20 13:04 Cilostazol 100 Mg Tablet PO 100 mg BID@1200,2100 JOEL Administration Clopidogrel Bisulfate 75 mg 08/19/20 09:00 08/21/20 08:35 Clopidogrel Bisulfate 75 Mg Tablet PO 75 mg DAILY JOEL Administration Docusate Sodium 100 mg 08/18/20 23:57 Docusate Sodium 100 Mg Capsule PO DAILY PRN Constipation Ferrous Sulfate 324 mg 08/19/20 09:00 08/21/20 08:35 Ferrous Sulfate 324 Mg Tablet. PO 324 mg DAILY JOEL Administration Cefepime HCl 1 gm/ Sodium 50 mls @ 100 mls/hr 08/19/20 00:00 08/21/20 09:24 Chloride IV Infused Q8H [facility] Infusion Insulin Human Lispro 0 unit 08/19/20 07:30 08/21/20 13:04 Insulin Lispro 100 Unit/Ml 3 Ml Vial SUBCUT 2 unit QIDACHS [facility] Administration Protocol Insulin Human Lispro 10 unit 08/19/20 11:30 08/21/20 13:04 Insulin Lispro 100 Unit/Ml 3 Ml Vial SUBCUT Not Given TIDAC [facility] Levothyroxine Sodium 25 mcg 08/19/20 08:45 08/21/20 05:55 Levothyroxine Sodium 25 Mcg Tablet PO 25 mcg DAILY@0600 JOEL Administration Loratadine 10 mg 08/19/20 09:00 08/21/20 08:39 Loratadine 10 Mg Tablet PO 10 mg DAILY JOEL Administration Metoprolol Tartrate 25 mg 08/19/20 09:00 08/21/20 08:35 Metoprolol Tartrate 25 Mg Tablet PO 25 mg BID JOEL Administration Protocol Montelukast Sodium 10 mg 08/19/20 21:00 08/20/20 22:18 Montelukast Sodium 10 Mg Tablet PO 10 mg BEDTIME JOEL Administration Ondansetron HCl 4 mg 08/18/20 23:57 Ondansetron Hcl 4 Mg/2 Ml Vial IVPUSH Q8H PRN Nausea and Vomiting Oxycodone HCl 5 mg 08/18/20 23:57 08/21/20 09:19 Oxycodone Hcl Immed Release 5 Mg Tablet PO 5 mg Q6H PRN Administration Pain, Severe (Pain Scale 7-10) Pharmacy Consult 1 each 08/18/20 16:48 Consult Rx Vancomycin Dosing MISCELLANE DAILY PRN Consult order Pregabalin 150 mg 08/19/20 09:00 08/21/20 08:35 Pregabalin 150 Mg Capsule PO 150 mg BID JOEL Administration Sodium Chloride 3 ml 08/19/20 00:00 08/21/20 08:39 0.9 % Sodium Chloride Flush 3 Ml Syringe IVFLUSH 3 ml QSHIFT [facility] Administration Venlafaxine HCl 37.5 mg 08/19/20 09:00 08/21/20 08:35 Venlafaxine Hcl Er 37.5 Mg Cap.Er.24h PO 37.5 mg DAILY JOEL Administration Vitamin D 25 mcg 08/19/20 09:00 08/21/20 08:35 Cholecalciferol (Vitamin D3) 25 Mcg Tablet PO 25 mcg DAILY JOEL Administration Home Medications Medication Instructions Recorded Confirmed Last Taken Type amlodipine 1 tab PO QAM 05/17/20 08/19/20 08/17/20 08:30 History aspirin 1 tab PO QAM 05/17/20 08/19/20 08/17/20 08:30 History atorvastatin 1 tab PO BEDTIME 05/17/20 08/19/20 08/17/20 20:00 History cholecalciferol (vitamin D3) 1 cap PO QAM 05/17/20 08/19/20 08/17/20 08:30 History [Vitamin D3] cilostazol 100 mg PO BID@1200,2100 05/17/20 08/19/20 08/17/20 20:00 History clopidogrel 1 tab PO QAM 05/17/20 08/19/20 08/17/20 08:30 History ferrous sulfate 1 tab PO QAM 05/17/20 08/19/20 08/17/20 08:30 History insulin lispro [Humalog KwikPen 10 unit SUBCUT TIDAC 05/17/20 08/19/20 08/17/20 19:00 History Insulin] 40 units levothyroxine 1 tab PO QAM 05/17/20 08/19/20 08/18/20 20:30 History loratadine 1 tab PO QAM 05/17/20 08/19/20 08/18/20 20:30 History metoprolol tartrate 1 tab PO BID 05/17/20 08/19/20 08/17/20 20:00 History montelukast 1 tab PO BEDTIME 05/17/20 08/19/20 08/17/20 20:00 History pregabalin 1 cap PO BID 05/17/20 08/19/20 08/17/20 20:00 History venlafaxine 1 cap PO QAM 05/17/20 08/19/20 08/18/20 08:30 History Physical Exam Vital Signs: Last Vital Signs Temp 98.0 F 08/21/20 11:28 Pulse 86 08/21/20 11:28 Resp 18 08/21/20 11:28 BP 132/61 08/21/20 11:28 Pulse Ox 91 L 08/21/20 11:28 Body Mass Index 32.0 Results Lab Results Result Diagrams: 08/19/20 06:04 08/21/20 08:41 Lab results: Chemistry 08/18/20 08/19/20 08/20/20 15:00 06:04 09:44 Sodium 134 L 137 136 Potassium 3.2 L 3.8 3.9 Carbon Dioxide 24 21 L 17 L BUN 26 H 26 H 32 H Creatinine 2.31 H 2.26 H 2.66 H Calcium 5.8 L* D 6.0 L* 5.9 L* 08/21/20 08:41 Sodium 133 L Potassium 4.5 Carbon Dioxide 15 L BUN 36 H Creatinine 3.22 H Calcium 6.4 L D Hematology 08/18/20 08/19/20 15:00 06:04 WBC 12.2 H 12.0 H Hgb 10.2 L 9.8 L Plt Count 198 191 Assessment and Plan (1) MARY KATE (acute kidney injury): Status: Acute Has CKD 3 due to vascular disease MARY KATE due to tubular injury- likely septic ATN DDx- Armida infectious GN/ AIN GN unlikely given no significant RBC in urine C3/C4 ordered for AM. Serum creatinine not plateaued Shall start her on NaHCO3 650 mg bid for metabolic acidosis No indication for renal replacement. If creat goes up, shall bladder scan & consider renal USS No ACEI/ARB/NSAID's. C/W rest of current supportive care. Labs AM Procedures Date of Service Date of Service: 08/21/20
[2020-08-21 15:25] VITALS: BP 136/63; PULSE 86; RESP 18; TEMP 36.6; O2SAT 92
[2020-08-21 15:38] LABS: Calcium 7.1 mg/dL (8.4-10.2)
[2020-08-21 15:53] LABS: Glucose, Whole Blood 212 mg/dL (60-115)
[2020-08-21] MEDS: Insulin Lispro 100 UNIT/ML 3 ML VIAL 10 UNIT SUBCUT (16:02)
[2020-08-21 19:59] VITALS: BP 150/77; PULSE 93; RESP 18; TEMP 36.1; O2SAT 93
[2020-08-21 20:25] LABS: Glucose, Whole Blood 110 mg/dL (60-115)
[2020-08-21] MEDS: Atorvastatin Calcium 80 MG TABLET PO (21:29)
[2020-08-21 21:30] VITALS: BP 150/77; PULSE 93
[2020-08-21] MEDS: Sodium Bicarbonate 650 MG TABLET PO (21:30)
[2020-08-21] MEDS: Montelukast Sodium 10 MG TABLET PO (21:30)
[2020-08-21 23:36] LABS: Delay - Chemistry DELAY
[2020-08-22] VITALS (7 sets, daily range): BP systolic 115–146; BP diastolic 44–77; PULSE 79–102; RESP 16–20; TEMP 36.2–36.9; O2SAT 93–97
[2020-08-22] MEDS: cefEPime HCl 1 GM in 0.9 % Sodium Chloride 50 ML IV ×3 (00:51→16:22)
[2020-08-22 02:41] LABS: Ammonia 28 umol/L (13-55)
[2020-08-22] MEDS: Levothyroxine Sodium 25 MCG TABLET PO (06:09)
[2020-08-22 07:50] LABS: Glucose, Whole Blood 135 mg/dL (60-115)
[2020-08-22] MEDS: Venlafaxine HCl ER 37.5 MG CAP.ER.24H PO (08:15)
[2020-08-22] MEDS: Pregabalin 150 MG CAPSULE PO ×2 (08:15→21:35)
[2020-08-22] MEDS: Clopidogrel Bisulfate 75 MG TABLET PO (08:15)
[2020-08-22] MEDS: Metoprolol Tartrate 25 MG TABLET PO ×2 (08:16→21:35)
[2020-08-22 08:55] LABS: Vitamin D 25-OH Total 22.1 ng/mL (>30)
[2020-08-22 09:01] LABS: Albumin Level 2.5 g/dL (3.5-5.0); Anion Gap 18 (12-20); Blood Urea Nitrogen 44 mg/dL (9-16); Carbon Dioxide 14 mmol/L (22-29); Chloride 108 mmol/L (96-108); Creatinine Clr Calc Pharmacy 13.2; Estimated Glomerular Filt Rate 12; Glucose Random 139 mg/dL (60-115); Potassium 4.6 mmol/L (3.3-5.1); Sodium 135 mmol/L (135-145)
--- NOTE | 2020-08-22 09:26 | HO.VASCPN ---
Subjective Subjective Date of Service: 08/22/20 Patient reports: no new complaints and still having pain Interval history: Patient seen and examined for nonhealing left great toe. Events over the weekend noted. Of note she has undergone noninvasive arterial testing. She is now for vascular follow-up. Physical Exam Vital Signs: Vital Signs: Last Vital Signs Temp 97.1 F 08/22/20 07:39 Pulse 99 08/22/20 07:39 Resp 18 08/22/20 07:39 BP 121/59 L 08/22/20 07:39 Pulse Ox 94 08/22/20 07:39 Body Mass Index 32.0 Const: General: cooperative, healthy appearing and no acute distress Orientation/consciousness: oriented to person, oriented to place and oriented to time HENMT: Head: Yes normal to inspection Neck: Carotids: no bruits Chest: Chest palpation & inspection: normal inspection of the chest Resp: Effort & Inspection: normal respiratory effort and able to speak in complete sentences Auscultation: clear to auscultation bilaterally Cardio: Rate: regular rate Heart sounds: S1 normal heart sound present and S2 normal heart sound present GI: Inspection: Yes normal to inspection Skin: General skin exam: no rashes or lesions noted Wounds: wounds noted (Nonhealing left great toe) Neuro: General: oriented to person, oriented to place, oriented to time and CN's II-XI intact bilaterally Extrem: General: Yes normal to inspection, Yes full ROM and Yes no clubbing, cyanosis or edema Psych: Appearance: grossly normal and well kempt Speech and movement: Normal speech and movement present Affect: normal affect Progress Note: A&P Assessment and plan (1) Osteomyelitis of great toe of left foot: Status: Acute (2) CKD (chronic kidney disease): Status: Acute Assessment and Plan: Patient has a nonhealing left great toe. MRI an arterial testing and have been reviewed written report and images. He is exquisitely painful for her. I do believe this will not heal. I had a discussion with the primary care team will plan for left great toe amputation. Risks benefits complications of the procedure were discussed in detail with the patient. She was in agreement and would like to proceed. Thank you for allowing us to assist in her care. In addition patient has chronic kidney disease. Will protect left upper extremity for potential future dialysis access. Will be available if access is required. Fall Risk Details Current Medications: Current Medications Generic Name Dose Route Start Last Admin Trade Name Freedom PRN Reason Stop Dose Admin Acetaminophen 650 mg 08/18/20 23:57 08/20/20 16:39 Acetaminophen 325 Mg Tablet PO 650 mg Q6H PRN Administration Pain, Mild (Pain Scale 1-3) Amlodipine Besylate 2.5 mg 08/19/20 09:00 08/22/20 08:16 Amlodipine Besylate 2.5 Mg Tablet PO 2.5 mg DAILY COUNT INCLUDES THE [facility] Administration Protocol Aspirin 81 mg 08/19/20 09:00 08/22/20 08:15 Aspirin Enteric Coated 81 Mg Tablet. PO 81 mg DAILY JOEL Administration Atorvastatin Calcium 80 mg 08/19/20 21:00 08/21/20 21:29 Atorvastatin Calcium 80 Mg Tablet PO 80 mg BEDTIME JOEL Administration Calcium Carbonate/Cholecalciferol 500 mg 08/19/20 09:00 08/22/20 08:15 Calcium + Vitamin D 250 Mg Tablet PO 500 mg BID JOEL Administration Cilostazol 100 mg 08/19/20 12:00 08/21/20 21:30 Cilostazol 100 Mg Tablet PO 100 mg BID@1200,2100 JOEL Administration Clopidogrel Bisulfate 75 mg 08/19/20 09:00 08/22/20 08:15 Clopidogrel Bisulfate 75 Mg Tablet PO 75 mg DAILY JOEL Administration Docusate Sodium 100 mg 08/18/20 23:57 Docusate Sodium 100 Mg Capsule PO DAILY PRN Constipation Ferrous Sulfate 324 mg 08/19/20 09:00 08/22/20 08:15 Ferrous Sulfate 324 Mg Tablet. PO 324 mg DAILY COUNT INCLUDES THE [facility] Administration Cefepime HCl 1 gm/ Sodium 50 mls @ 100 mls/hr 08/19/20 00:00 08/22/20 09:21 Chloride IV Infused Q8H COUNT INCLUDES THE [facility] Infusion Insulin Human Lispro 0 unit 08/19/20 07:30 08/22/20 08:26 Insulin Lispro 100 Unit/Ml 3 Ml Vial SUBCUT Not Given QIDACHS COUNT INCLUDES THE [facility] Protocol Insulin Human Lispro 10 unit 08/19/20 11:30 08/22/20 08:19 Insulin Lispro 100 Unit/Ml 3 Ml Vial SUBCUT Not Given TIDAC COUNT INCLUDES THE [facility] Levothyroxine Sodium 25 mcg 08/19/20 08:45 08/22/20 06:09 Levothyroxine Sodium 25 Mcg Tablet PO 25 mcg DAILY@0600 COUNT INCLUDES THE [facility] Administration Loratadine 10 mg 06/04/21 09:00 08/22/20 08:15 Loratadine 10 Mg Tablet PO 10 mg DAILY JOEL Administration Metoprolol Tartrate 25 mg 08/19/20 09:00 08/22/20 08:16 Metoprolol Tartrate 25 Mg Tablet PO 25 mg BID JOEL Administration Protocol Montelukast Sodium 10 mg 08/19/20 21:00 08/21/20 21:30 Montelukast Sodium 10 Mg Tablet PO 10 mg BEDTIME JOEL Administration Ondansetron HCl 4 mg 08/18/20 23:57 Ondansetron Hcl 4 Mg/2 Ml Vial IVPUSH Q8H PRN Nausea and Vomiting Oxycodone HCl 5 mg 08/18/20 23:57 08/21/20 09:19 Oxycodone Hcl Immed Release 5 Mg Tablet PO 5 mg Q6H PRN Administration Pain, Severe (Pain Scale 7-10) Pharmacy Consult 1 each 08/18/20 16:48 Consult Rx Vancomycin Dosing MISCELLANE DAILY PRN Consult order Pregabalin 150 mg 08/19/20 09:00 08/22/20 08:15 Pregabalin 150 Mg Capsule PO 150 mg BID JOEL Administration Sodium Bicarbonate 650 mg 08/21/20 21:00 08/22/20 08:15 Sodium Bicarbonate 650 Mg Tablet PO 650 mg BID JOEL Administration Sodium Chloride 3 ml 08/19/20 00:00 08/22/20 08:25 0.9 % Sodium Chloride Flush 3 Ml Syringe IVFLUSH Not Given QSHIFT JOEL Venlafaxine HCl 37.5 mg 08/19/20 09:00 08/22/20 08:15 Venlafaxine Hcl Er 37.5 Mg Cap.Er.24h PO 37.5 mg DAILY JOEL Administration Vitamin D 25 mcg 08/19/20 09:00 08/22/20 08:15 Cholecalciferol (Vitamin D3) 25 Mcg Tablet PO 25 mcg DAILY JOEL Administration Time Spent With Patient Time: Total time spent is greater than 50% in coordination of care (as documented) at patient's floor/unit and/or counseling patient: Time with patient: 25 - 35 minutes Procedures Date of Service Date of Service: 08/22/20
--- NOTE | 2020-08-22 11:19 | MHC.CM.PN ---
PER PHYSICIAN ROUNDS, PLAN IS FOR AMPUTATION TOMORROW (08/23/20) POSSIBLE NEED FOR REHAB VERSUS HOME WITH COMFORT [facility]. CASE MANAGEMENT FOLLOWING
--- NOTE | 2020-08-22 12:12 | P.PNIM_ITS ---
Subjective Subjective Date of Service: 08/22/20 <Ladan Jackson NP - Last Filed: 08/22/20 12:24> 08/22/20 <Alex Monzon MD - Last Filed: 08/22/20 20:06> Interval History: Follow up osteomyelitis No pain Seems confused, slow response <Ladan Jackson NP - Last Filed: 08/22/20 12:24> Physical Exam Vital Signs: Vital Signs: Last Vital Signs Temp 97.1 F 08/22/20 07:39 Pulse 99 08/22/20 07:39 Resp 18 08/22/20 07:39 BP 121/59 L 08/22/20 07:39 Pulse Ox 94 08/22/20 07:39 Body Mass Index 32.0 <Ladan Jackson NP - Last Filed: 08/22/20 12:24> Appearing in no acute distress lung sounds are clear to auscultation heart regular rate rhythm, clear S1, S2 positive bowel sounds, abdomen is soft, nontender neuro patient is alert x3, no focal deficits <Ladan Jackson NP - Last Filed: 08/22/20 12:24> Objective Data Current Medications Generic Name Dose Route Start Last Admin Trade Name Freq PRN Reason Stop Dose Admin Acetaminophen 650 mg 08/18/20 23:57 08/20/20 16:39 Acetaminophen 325 Mg Tablet PO 650 mg Q6H PRN Administration Pain, Mild (Pain Scale 1-3) Amlodipine Besylate 2.5 mg 08/19/20 09:00 08/22/20 10:34 Amlodipine Besylate 2.5 Mg Tablet PO Not Given DAILY [facility] Protocol Aspirin 81 mg 08/19/20 09:00 08/22/20 10:35 Aspirin Enteric Coated 81 Mg Tablet.Dr PO Not Given DAILY [facility] Atorvastatin Calcium 80 mg 08/19/20 21:00 08/21/20 21:29 Atorvastatin Calcium 80 Mg Tablet PO 80 mg BEDTIME [facility] Administration Calcium Carbonate/Cholecalciferol 500 mg 08/19/20 09:00 08/22/20 10:29 Calcium + Vitamin D 250 Mg Tablet PO Not Given BID [facility] Cilostazol 100 mg 08/19/20 12:00 08/21/20 21:30 Cilostazol 100 Mg Tablet PO 100 mg BID@1200,2100 [facility] Administration Clopidogrel Bisulfate 75 mg 08/19/20 09:00 08/22/20 08:15 Clopidogrel Bisulfate 75 Mg Tablet PO 75 mg DAILY [facility] Administration Docusate Sodium 100 mg 08/18/20 23:57 Docusate Sodium 100 Mg Capsule PO DAILY PRN Constipation Ferrous Sulfate 324 mg 08/19/20 09:00 08/22/20 10:34 Ferrous Sulfate 324 Mg Tablet.Dr PO Not Given DAILY [facility] Cefepime HCl 1 gm/ Sodium 50 mls @ 100 mls/hr 08/19/20 00:00 08/22/20 09:21 Chloride IV Infused Q8H [facility] Infusion Insulin Human Lispro 0 unit 08/19/20 07:30 08/22/20 08:26 Insulin Lispro 100 Unit/Ml 3 Ml Vial SUBCUT Not Given QIDACHS [facility] Protocol Insulin Human Lispro 10 unit 08/19/20 11:30 08/22/20 08:19 Insulin Lispro 100 Unit/Ml 3 Ml Vial SUBCUT Not Given TIDAC [facility] Levothyroxine Sodium 25 mcg 08/19/20 08:45 08/22/20 06:09 Levothyroxine Sodium 25 Mcg Tablet PO 25 mcg DAILY@0600 [facility] Administration Loratadine 10 mg 08/19/20 09:00 08/22/20 10:32 Loratadine 10 Mg Tablet PO Not Given DAILY [facility] Metoprolol Tartrate 25 mg 08/19/20 09:00 08/22/20 08:16 Metoprolol Tartrate 25 Mg Tablet PO 25 mg BID [facility] Administration Protocol Montelukast Sodium 10 mg 08/19/20 21:00 08/21/20 21:30 Montelukast Sodium 10 Mg Tablet PO 10 mg BEDTIME [facility] Administration Ondansetron HCl 4 mg 08/18/20 23:57 Ondansetron Hcl 4 Mg/2 Ml Vial IVPUSH Q8H PRN Nausea and Vomiting Oxycodone HCl 5 mg 08/18/20 23:57 08/21/20 09:19 Oxycodone Hcl Immed Release 5 Mg Tablet PO 5 mg Q6H PRN Administration Pain, Severe (Pain Scale 7-10) Pharmacy Consult 1 each 08/18/20 16:48 Consult Rx Vancomycin Dosing MISCELLANE DAILY PRN Consult order Pregabalin 150 mg 08/19/20 09:00 08/22/20 08:15 Pregabalin 150 Mg Capsule PO 150 mg BID [facility] Administration Sodium Bicarbonate 650 mg 08/21/20 21:00 08/22/20 10:36 Sodium Bicarbonate 650 Mg Tablet PO Not Given BID JOEL Sodium Chloride 3 ml 08/19/20 00:00 08/22/20 08:25 0.9 % Sodium Chloride Flush 3 Ml Syringe IVFLUSH Not Given QSHIFT JOEL Venlafaxine HCl 37.5 mg 08/19/20 09:00 08/22/20 08:15 Venlafaxine Hcl Er 37.5 Mg Cap.Er.24h PO 37.5 mg DAILY JOEL Administration Vitamin D 25 mcg 08/19/20 09:00 08/22/20 10:34 Cholecalciferol (Vitamin D3) 25 Mcg Tablet PO Not Given DAILY JOEL <Ladan Jackson NP - Last Filed: 08/22/20 12:24> Labs CBC & Chem 7: : 08/19/20 06:04 08/22/20 08:07 <Ladan Jackson NP - Last Filed: 08/22/20 12:24> Microbiology Microbiology Results: Microbiology 08/18/20 16:15 Blood - Venous Blood Culture - Preliminary No growth after 48 hours. 08/18/20 16:15 Blood - Venous Blood Culture - Preliminary No growth after 48 hours. <Ladan Jackson NP - Last Filed: 08/22/20 12:24> Assessment and Plan (1) CKD (chronic kidney disease): Status: Acute <Ladan Jackson NP - Last Filed: 08/22/20 12:24> Assessment and Plan: 65-year-old female with history of diabetes as well as severe peripheral vascular disease who presents to the hospital with worsening infection of the left great toe, for which she was on Cephalexin Osteomyelitis of the great toe of the left foot, with elevated ESR, CRP, luis inage of the toe, discoloration, -Amputation tomorrow -NPO after midnight -blood cx neg after 48hrs -continue Cefepime -Oxycodone and Morphine PRN for pain Weakness slow to respond, very mild confusion ? worsening renal failure -brain CT with no acute findings -check UA MARY KATE on CKD no improvement bladder scan with >600ml post void -del rio cath -renal u/s -Nephrology following Hypertension. controlled -continue amlodipine, metoprolol Diabetes. -humalog 10 tid -SS Hypothyroidism - continue levothyroxine History of severe peripheral vascular disease -continue statin, Plavix, cilostazol and aspirin HLD -Lipitor DVT prophylaxis SCDs Full code Attending:Dr. Monzon <Ladan Jackson NP - Last Filed: 08/22/20 12:24> (2) Hypocalcemia: Status: Acute <Ladan Jackson NP - Last Filed: 08/22/20 12:24> (3) Acute kidney injury: Status: Acute <Ladan Jackson NP - Last Filed: 08/22/20 12:24> (4) Osteomyelitis of great toe of left foot: Status: Acute <Ladan Jackson NP - Last Filed: 08/22/20 12:24> Assessment and Plan: Seen and examined and finding, assessment and plan discussed with PAPIER MACHE MOLDER and I agree with above. Plan for amputation tomorrow, monitor renal function that is worsening, nephrology helping with management, calcium level is low at 7 with low albumin and unlikely to be causing symptoms. <Alex Monzon MD - Last Filed: 08/22/20 20:06>
[2020-08-22 12:38] LABS: Glucose, Whole Blood 166 mg/dL (60-115)
[2020-08-22] MEDS: cilostazoL 100 MG TABLET PO ×2 (12:47→21:35)
[2020-08-22] MEDS: Insulin Lispro 100 UNIT/ML 3 ML VIAL SUBCUT ×3 (12:48→21:36)
[2020-08-22 13:51] LABS: Glucose Urine UA NEG (NEG); Leukocyte Esterase Urine NEG (NEG); Nitrite Urine NEG (NEG); PH 5.5 (5.0-8.0); Specific Gravity - Urine 1.025 (1.005-1.025); Urine Blood 2+ (NEG); Urine Ketones 5 MG/DL (NEG); Urine Protein 2+ MG/DL (NEG-TRACE)
[2020-08-22 13:52] LABS: Appearance Urine CLEAR; Color Urine YELLOW
[2020-08-22 14:12] LABS: Amorphous Sediment Urine 2+ /LPF; Bacteria Urine 1+ /LPF; Squamous Epithelial Cell Urine 1+ /LPF; WBC Urine 0-2 /HPF (0-4)
--- NOTE | 2020-08-22 14:31 | P.PNNP_ITS ---
Subjective Subjective Date of Service: 08/22/20 Interval history: Seen and examiend. Events noted Confused and tremulous Physical Exam Vital Signs: Vital Signs: Last Vital Signs Temp 97.1 F 08/22/20 07:39 Pulse 99 08/22/20 07:39 Resp 18 08/22/20 07:39 BP 121/59 L 08/22/20 07:39 Pulse Ox 94 08/22/20 07:39 Body Mass Index 32.0 Const: General: cooperative, healthy appearing, comfortable and no acute distress Orientation/consciousness: oriented to person, oriented to place, oriented to time and patient oriented x3 HENMT: Head: Yes normal to inspection and Yes atraumatic Mouth: Normal oral and palatal mucosa present Eyes: General: appearance normal, both eyes and all related structures Neck: Neck: Yes normal visual inspection Carotids: no bruits Chest: Chest palpation & inspection: normal inspection of the chest Resp: Effort & Inspection: normal respiratory effort and able to speak in complete sentences Auscultation: clear to auscultation bilaterally, no crackles, no rales, no rhonchi and no wheezes Cardio: Rate: regular rate Rhythm: regular rhythm Heart sounds: S1 normal heart sound present and S2 normal heart sound present Bruits: no carotid bruits Peripheral pulses: dorsalis pedis present (Bilateral DP signals) GI: Inspection: Yes normal to inspection Palpation (GI): Soft to palpation and nontender Auscultation: normal bowel sounds : General: Yes no CVA tenderness Back/Spine/Pelvis: Back: no CVA tenderness Skin: General skin exam: no rashes or lesions noted Wounds: wounds noted (Nonhealing left great toe) Hair: normal Neuro: General: oriented to person, oriented to place, oriented to time, patient oriented x3 and CN's II-XI intact bilaterally Cranial nerves: Yes CN's II-XII intact bilaterally and Yes Normal hearing present Cognition (Neuro): normal cognition Motor exam (neuro): 5/5 motor strength present throughout Extrem: General: Yes normal to inspection, Yes full ROM, Yes no clubbing, cyanosis or edema, No clubbing, No cyanosis and No edema Psych: Appearance: grossly normal and well kempt Mental Status: mental status grossly normal Speech and movement: Normal speech and movement present Affect: normal affect Objective Data Labs CBC & Chem 7: 08/19/20 06:04 08/22/20 08:07 Labs: Laboratory Results - last 24 hr 08/21/20 08/21/20 08/21/20 14:58 15:49 20:21 Sodium Potassium Chloride Carbon Dioxide Anion Gap BUN Creatinine Estim Creat Clear Calc Estimated GFR POC Glucose 212 H 110 Random Glucose Calcium 7.1 L D Ammonia Albumin 25-OH Vitamin D Total Specimen Comment Urine Color Urine Appearance Urine pH Ur Specific [place] Urine Protein Urine Glucose (UA) Urine Ketones Urine Blood Urine Nitrite Ur Leukocyte Esterase Urine RBC Urine WBC Ur Squamous Epith Cells Amorphous Sediment Urine Bacteria 08/21/20 08/21/20 08/22/20 22:48 22:48 07:37 Sodium Potassium Chloride Carbon Dioxide Anion Gap BUN Creatinine Estim Creat Clear Calc Estimated GFR POC Glucose Random Glucose Calcium Ammonia 28 Albumin 25-OH Vitamin D Total 22.1 Specimen Comment DELAY Urine Color Urine Appearance Urine pH Ur Specific [place] Urine Protein Urine Glucose (UA) Urine Ketones Urine Blood Urine Nitrite Ur Leukocyte Esterase Urine RBC Urine WBC Ur Squamous Epith Cells Amorphous Sediment Urine Bacteria 08/22/20 08/22/20 08/22/20 07:38 08:07 12:33 Sodium 135 Potassium 4.6 Chloride 108 Carbon Dioxide 14 L Anion Gap 18 BUN 44 H Creatinine 3.76 H Estim Creat Clear Calc 13.2 Estimated GFR 12 POC Glucose 135 H 166 H Random Glucose 139 H Calcium 7.0 L Ammonia Albumin 2.5 L 25-OH Vitamin D Total Specimen Comment Urine Color Urine Appearance Urine pH Ur Specific [place] Urine Protein Urine Glucose (UA) Urine Ketones Urine Blood Urine Nitrite Ur Leukocyte Esterase Urine RBC Urine WBC Ur Squamous Epith Cells Amorphous Sediment Urine Bacteria 08/22/20 13:20 Sodium Potassium Chloride Carbon Dioxide Anion Gap BUN Creatinine Estim Creat Clear Calc Estimated GFR POC Glucose Random Glucose Calcium Ammonia Albumin 25-OH Vitamin D Total Specimen Comment Urine Color YELLOW Urine Appearance CLEAR Urine pH 5.5 Ur Specific [place] 1.025 Urine Protein 2+ H Urine Glucose (UA) NEG Urine Ketones 5 Urine Blood 2+ H Urine Nitrite NEG Ur Leukocyte Esterase NEG Urine RBC 1-4 Urine WBC 0-2 Ur Squamous Epith Cells 1+ Amorphous Sediment 2+ Urine Bacteria 1+ Microbiology Microbiology Results: Microbiology 08/18/20 16:15 Blood - Venous Blood Culture - Preliminary No growth after 48 hours. 08/18/20 16:15 Blood - Venous Blood Culture - Preliminary No growth after 48 hours. Assessment & Plan Assessment and plan (1) MARY KATE (acute kidney injury): Status: Acute Assessment and Plan: 1. MARY KATE: incr SCR is concerning and DDx includies Im-CX GN from ongoing infevction: C3/C4 pending as often decr if IM-Cx multifact ATN: no obvious insults..no hypotension pre-renal despite FENa > 1% CAROL/IRD and ques chol emboli: all deffinite poss given severeity of ASVD Obs r/o by renal U/s OTHER: AGN ( anca); dysproteiniemia 2. CKD 4: bsl SCr 2.0: most c/w DN/HTN renal dis; PLAN: gentle IVF; full sero as ordered; urine studies ( ur eos); avoid NToxins; may need to consider kidmney Bx if cont MARY KATE; hopefully can avoid HD and SCR will plateau and grad recover to bsl will follow perla with team Time Spent With Patient Time: Total time spent is greater than 50% in coordination of care (as documented) at patient's floor/unit and/or counseling patient:
--- NOTE | 2020-08-22 15:31 | PC.NURSE ---
1400 uncoordinated, having diff with balance. Complete care with ADL.s Appetite poor, fed meals. Head CT and renal US done. F/C inserted for retention. speech slow, orientation vague. OOB to commode with max 2 assist.
--- NOTE | 2020-08-22 16:14 | PM.EVENT ---
Event Note Date of Service: 08/22/20 Event Note: patient is going for amputation toe No IV antibiotics after Would give po Augmentin for a week
[2020-08-22] MEDS: 0.9 % Sodium Chloride Flush 3 ML SYRINGE IVFLUSH (16:21)
[2020-08-22 16:29] LABS: Glucose, Whole Blood 164 mg/dL (60-115)
[2020-08-22] MEDS: 0.9 % Sodium Chloride 1,000 ML 100 ML IVCONT (17:38)
--- NOTE | 2020-08-22 19:10 | PC.NURSE ---
Daughter of Sarah stopped in tonight and asked what was going on with mother. Her mother could not answer the phone when they called. I answered phone for patient and all Sarah could say was hello, she didn't recognize who was on the phone. She is very confused, disoriented and has twitching in arms and legs.
[2020-08-22 20:21] LABS: Glucose, Whole Blood 191 mg/dL (60-115)
[2020-08-22] MEDS: Montelukast Sodium 10 MG TABLET PO (21:35)
[2020-08-22] MEDS: Atorvastatin Calcium 80 MG TABLET PO (21:35)
[2020-08-22] MEDS: Sodium Bicarbonate 650 MG TABLET PO (21:35)
[2020-08-22] MEDS: Calcium + Vitamin D 250 MG TABLET 500 MG PO (21:35)
[2020-08-23] VITALS (7 sets, daily range): BP systolic 133–194; BP diastolic 51–81; PULSE 89–99; RESP 17–20; TEMP 36.2–36.9; O2SAT 94–96
--- NOTE | 2020-08-23 | EEG_ITS ---
FINDINGS: The waking background activity consists of a diffuse 2 hertz moderate voltage delta with prominent 1.5 to 2 hertz frontally accentuated triphasic waves seen throughout the record. A few instances of spike and slow wave discharges seen in isolated forms from the frontal regions. Photic stimulation is without activation. IMPRESSION: This EEG is considered markedly abnormal with diffuse triphasic waves and some spike discharges. These findings are typical for a toxic metabolic encephalopathy. There is also some seizure potential. Clinical correlation is suggested. MD DARRON Blanchard/TEENA / [phone]
[2020-08-23] MEDS: cefEPime HCl 1 GM in 0.9 % Sodium Chloride 50 ML IV ×2 (00:34→08:39)
[2020-08-23] MEDS: 0.9 % Sodium Chloride 1,000 ML 100 ML IVCONT ×3 (03:35→23:50)
[2020-08-23 06:56] LABS: Hematocrit 28.6 % (37-47); Hemoglobin 8.9 g/dl (12.0-16.0); Mean Corpuscular HGB Conc 31.1 g/dl (31.0-35.0); Mean Corpuscular Hemoglobin 27.1 pg (27.0-33.0); Mean Corpuscular Volume 86.9 fL (80-98); Platelet Count 301 X10*3/uL (160-400); Red Blood Count 3.29 X10*6/uL (4.20-5.50); Red Cell Distribution Width 14.4 % (11.0-16.0); White Blood Count 13.7 X10*3/uL (4.8-10.8)
[2020-08-23 07:31] LABS: Anion Gap 15 (12-20); Blood Urea Nitrogen 47 mg/dL (9-16); Calcium 6.6 mg/dL (8.4-10.2); Carbon Dioxide 16 mmol/L (22-29); Chloride 110 mmol/L (96-108); Creatinine Clr Calc Pharmacy 13.1; Estimated Glomerular Filt Rate 12; Glucose Random 199 mg/dL (60-115); Potassium 4.5 mmol/L (3.3-5.1); Sodium 136 mmol/L (135-145)
[2020-08-23 07:57] LABS: Glucose, Whole Blood 189 mg/dL (60-115)
--- NOTE | 2020-08-23 09:05 | PC.NURSE ---
Called consult to [facility]
[2020-08-23 10:02] LABS: Thyroid Stimulating Hormone 2.51 uIU/mL (0.32-4.0)
[2020-08-23 10:19] LABS: Folate 12.8 ng/mL (> or = 4.0); Vitamin B12 472 pg/mL (200-900)
--- NOTE | 2020-08-23 11:05 | PC.NURSE ---
0730: Pt does not follow commands, does not answer questions when asked in khmer or in macedonian. Appears to attempt to speak but unable. Intermittent twitches to eyes and extremities. Dr Monzon in and aware of pt status. Neurology consult ordered. 0915: Ladan BOJORQUEZ in to see pt. New orders. Pt status unchanged form this morings note as above. 0945: Pt down for EEG via stretcher
--- NOTE | 2020-08-23 11:11 | MHC.CM.PN ---
CALL RECEIVED FROM DAUGHTER, WILIAN. IRIS IS ASKING ABOUT PATIENT. DAUGHTER REMINDED THAT PATIENT HAS INDICATED ONLY TWO PERSONS THAT [facility] IS ABLE TO GIVE INFO TO AND ONLY THOSE TWO PEOPLE CAN VISIT. IF THIS IS TO CHANGE, CASE MANAGEMENT WILL NOTIFY IRIS BY PHONE. RN AWARE OF CONVERSATION.
--- NOTE | 2020-08-23 11:20 | MHC.CM.PN ---
HCP FOUND IN PREVIOUS ALLSCRIPTS ADMISSION. PRINTED AND PLACED IN CHART
[2020-08-23 12:09] LABS: ABG Base Excess -11.7 mmol/L; ABG HCO3 13 mmol/L (22-26); ABG pCO2 29 mmHg (32-45); ABG pCO2 TC 28 mmHg (32-45); ABG pH 7.27 (7.35-7.45); ABG pH TC 7.27 (7.35-7.45); ABG pO2 75 mmHg (83-108); ABG pO2 TC 73 (83-108); Glucose, Whole Blood 191 mg/dL (60-115)
[2020-08-23 12:10] LABS: ABG Refer to POC result
[2020-08-23] MEDS: Insulin Lispro 100 UNIT/ML 3 ML VIAL SUBCUT (12:34)
[2020-08-23] MEDS: Insulin Lispro 100 UNIT/ML 3 ML VIAL 10 UNIT SUBCUT (12:34)
[2020-08-23 13:31] LABS: Ammonia 24 umol/L (13-55)
--- NOTE | 2020-08-23 14:05 | P.PNIM_ITS ---
Subjective Subjective Date of Service: 08/23/20 <Ladan Jackson NP - Last Filed: 08/23/20 18:02> 08/23/20 <Alex Monzon MD - Last Filed: 08/23/20 20:55> Interval History: Follow-up acute renal failure, osteomyelitis, encephalopathy Still encephalopathic <Ladan Jackson NP - Last Filed: 08/23/20 18:02> Physical Exam Vital Signs: Vital Signs: Last Vital Signs Temp 97.5 F 08/23/20 12:00 Pulse 93 08/23/20 12:00 Resp 18 08/23/20 12:00 BP 133/64 08/23/20 12:00 Pulse Ox 96 08/23/20 12:00 Body Mass Index 32.0 <Ladan Jackson NP - Last Filed: 08/23/20 18:02> unresponsiveness lung sounds are clear to auscultation heart regular rate rhythm, clear S1, S2 positive bowel sounds, abdomen is soft, nontender neuro patient not alert, unresponsive some twitching type movements, opens eyes but does not seem purposeful <Ladan Jackson NP - Last Filed: 08/23/20 18:02> Objective Data Current Medications Generic Name Dose Route Start Last Admin Trade Name Freq PRN Reason Stop Dose Admin Acetaminophen 650 mg 08/18/20 23:57 08/20/20 16:39 Acetaminophen 325 Mg Tablet PO 650 mg Q6H PRN Administration Pain, Mild (Pain Scale 1-3) Amlodipine Besylate 2.5 mg 08/19/20 09:00 08/23/20 08:39 Amlodipine Besylate 2.5 Mg Tablet PO Not Given DAILY [facility] Protocol Aspirin 81 mg 08/19/20 09:00 08/23/20 08:40 Aspirin Enteric Coated 81 Mg Tablet.Dr PO Not Given DAILY [facility] Atorvastatin Calcium 80 mg 08/19/20 21:00 08/22/20 21:35 Atorvastatin Calcium 80 Mg Tablet PO 80 mg BEDTIME [facility] Administration Calcium Carbonate/Cholecalciferol 500 mg 08/19/20 09:00 08/23/20 08:40 Calcium + Vitamin D 250 Mg Tablet PO Not Given BID [facility] Cilostazol 100 mg 08/19/20 12:00 08/23/20 12:32 Cilostazol 100 Mg Tablet PO Not Given BID@1200,2100 [facility] Clopidogrel Bisulfate 75 mg 08/19/20 09:00 08/23/20 08:40 Clopidogrel Bisulfate 75 Mg Tablet PO Not Given DAILY [facility] Docusate Sodium 100 mg 08/18/20 23:57 Docusate Sodium 100 Mg Capsule PO DAILY PRN Constipation Ferrous Sulfate 324 mg 08/19/20 09:00 08/23/20 08:40 Ferrous Sulfate 324 Mg Tablet.Dr PO Not Given DAILY [facility] Sodium Chloride 1,000 mls @ 100 mls/hr 08/22/20 17:30 08/23/20 12:35 Ns IVCONT 100 mls/hr .Q10H [facility] Administration Piperacillin Sod/Tazobactam 50 mls @ 100 mls/hr 08/23/20 14:15 Sod 2.25 gm/ Sodium Chloride IV Q12H [facility] Insulin Human Lispro 0 unit 08/19/20 07:30 08/23/20 12:34 Insulin Lispro 100 Unit/Ml 3 Ml Vial SUBCUT 2 unit QIDACHS [facility] Administration Protocol Insulin Human Lispro 10 unit 08/19/20 11:30 08/23/20 12:34 Insulin Lispro 100 Unit/Ml 3 Ml Vial SUBCUT 10 unit TIDAC [facility] Administration Levothyroxine Sodium 25 mcg 08/19/20 08:45 08/23/20 05:53 Levothyroxine Sodium 25 Mcg Tablet PO Not Given DAILY@0600 [facility] Loratadine 10 mg 08/19/20 09:00 08/23/20 08:40 Loratadine 10 Mg Tablet PO Not Given DAILY [facility] Metoprolol Tartrate 25 mg 08/19/20 09:00 08/23/20 08:41 Metoprolol Tartrate 25 Mg Tablet PO Not Given BID [facility] Protocol Montelukast Sodium 10 mg 08/19/20 21:00 08/22/20 21:35 Montelukast Sodium 10 Mg Tablet PO 10 mg BEDTIME [facility] Administration Ondansetron HCl 4 mg 08/18/20 23:57 Ondansetron Hcl 4 Mg/2 Ml Vial IVPUSH Q8H PRN Nausea and Vomiting Oxycodone HCl 5 mg 08/18/20 23:57 08/21/20 09:19 Oxycodone Hcl Immed Release 5 Mg Tablet PO 5 mg Q6H PRN Administration Pain, Severe (Pain Scale 7-10) Pharmacy Consult 1 each 08/18/20 16:48 Consult Rx Vancomycin Dosing MISCELLANE DAILY PRN Consult order Pharmacy Consult 1 each 08/23/20 14:04 Consult Rx Antimicrob Dosing MISCELLANE DAILY PRN Consult order Pregabalin 150 mg 08/19/20 09:00 08/23/20 08:41 Pregabalin 150 Mg Capsule PO Not Given BID [facility] Sodium Bicarbonate 650 mg 08/21/20 21:00 08/23/20 08:41 Sodium Bicarbonate 650 Mg Tablet PO Not Given BID [facility] Sodium Chloride 3 ml 08/19/20 00:00 08/23/20 08:38 0.9 % Sodium Chloride Flush 3 Ml Syringe IVFLUSH Not Given QSHIFT [facility] Venlafaxine HCl 37.5 mg 08/19/20 09:00 08/23/20 08:41 Venlafaxine Hcl Er 37.5 Mg Cap.Er.24h PO Not Given DAILY [facility] Vitamin D 25 mcg 08/19/20 09:00 08/23/20 08:40 Cholecalciferol (Vitamin D3) 25 Mcg Tablet PO Not Given DAILY [facility] <Ladan Jackson NP - Last Filed: 08/23/20 18:02> Labs CBC & Chem 7: : 08/23/20 06:29 08/23/20 06:29 <Ladan Jackson NP - Last Filed: 08/23/20 18:02> Microbiology Microbiology Results: Microbiology 08/18/20 16:15 Blood - Venous Blood Culture - Preliminary No growth after 48 hours. 08/18/20 16:15 Blood - Venous Blood Culture - Preliminary No growth after 48 hours. <Ladan Jackson NP - Last Filed: 08/23/20 18:02> Assessment and Plan (1) CKD (chronic kidney disease): Status: Acute <Ladan Jackson NP - Last Filed: 08/23/20 18:02> Assessment and Plan: 65-year-old female with history of diabetes as well as severe peripheral vascular disease who presents to the hospital with worsening infection of the left great toe, for which she was on Cephalexin Encephalopathy. Brain CT negative for acute findings, negative urinalysis, no fever, mild leukocytosis ammonia 24, TSH 2.51, folate 12.8, corrected calcium 7.7, ABG 7.27/29/75/13 (met acidosis secondary to kidney failure) today not responding or taking direction, mostly with eyes closed or staring no infectious source found at this time - will change from cefepime to Zosyn to rule out medication related - EEG pending - neurology consult - MRI - due to this encephalopathy and unresponsiveness, healthcare proxy will be invoked, Javi So [phone] - discussed case with marketing education teacher, rec stopping pregabalin as this may intensify encephalopathy and renal failure, ultimately this may be the cause of her symptoms MARY KATE on CKD no improvement -del rio cath -renal u/s negative for obstruction or stones -Nephrology following -serology, urine studies Osteomyelitis of the great toe of the left foot, with elevated ESR, CRP, drainage of the toe, discoloration, -Amputation canceled due to encephalopathy -blood cx neg after 48hrs -continue antibiotic -Oxycodone and Morphine PRN for pain Hypertension. controlled -continue amlodipine, metoprolol Diabetes. -humalog 10 tid -SS Hypothyroidism - continue levothyroxine History of severe peripheral vascular disease -continue statin, Plavix, cilostazol and aspirin HLD -Lipitor DVT prophylaxis with heparin Full code Attending:Dr. Monzon <Ladan Jackson NP - Last Filed: 08/23/20 18:02> (2) Metabolic encephalopathy: Status: Acute <Ladan Jackson NP - Last Filed: 08/23/20 18:02> Assessment and Plan: I saw and examined the patient and discss finding, and management wit UNDERBASTER. Patient has becoming increasing more confused, to the point of not talk, twithcing constantly , further work has included normal TSH, normal ammonia an, B12 and folate medidcations are reviewd closely in light or worsening renal failure and I am concern that she maybe getting toxicity from gabapentino or lyrica causing those symptoms, further work up has included MRI result pending and EEG. Neurology is recommending LP, and will be perforemed if worsening. amputation of the foot was cancelled d/t worsening of her mental status. I discuss with ID and recommend changing Cefepime to Zosyn as potential cause of confusion. O/w I agree with above <Alex Monzon MD - Last Filed: 08/23/20 20:55>
--- NOTE | 2020-08-23 14:10 | P.PNVS_ITS ---
Subjective Subjective Date of Service: 08/23/20 Patient reports: no new complaints and feels better Interval history: Patient seen examined. Significant change in mental status since yesterday. Today a she seemed on examination tachypneic and disoriented. She was not oriented to person place or location. She did not recall our conversation from yesterday and was unaware of her operation scheduled for later today. Physical Exam Vital Signs: Vital Signs: Last Vital Signs Temp 97.5 F 08/23/20 12:00 Pulse 93 08/23/20 12:00 Resp 18 08/23/20 12:00 BP 133/64 08/23/20 12:00 Pulse Ox 96 08/23/20 12:00 Body Mass Index 32.0 Const: General: cooperative, healthy appearing and no acute distress Orientation/consciousness: oriented to person, oriented to place and oriented to time HENMT: Head: Yes normal to inspection Neck: Carotids: no bruits Chest: Chest palpation & inspection: normal inspection of the chest Resp: Effort & Inspection: normal respiratory effort and able to speak in complete sentences Auscultation: clear to auscultation bilaterally Cardio: Rate: regular rate Heart sounds: S1 normal heart sound present and S2 normal heart sound present GI: Inspection: Yes normal to inspection Skin: General skin exam: no rashes or lesions noted Wounds: wounds noted (Nonhealing left great toe) Neuro: General: oriented to person, oriented to place, oriented to time and CN's II-XI intact bilaterally Extrem: General: Yes normal to inspection, Yes full ROM and Yes no clubbing, cyanosis or edema Psych: Appearance: grossly normal and well kempt Speech and movement: Normal speech and movement present Affect: normal affect Progress Note: A&P Assessment and plan (1) Osteomyelitis of great toe of left foot: Status: Acute Assessment and Plan: In short patient has nonhealing left great toe ulcer. Due to her acute status change we will hold off on her procedure. She is currently undergoing medical workup. We will continue to monitor her status with you. Thank you for allowing us to participate in her care. If there are any questions or concerns please do not hesitate to contact us. Fall Risk Details Current Medications: Current Medications Generic Name Dose Route Start Last Admin Trade Name Freq PRN Reason Stop Dose Admin Acetaminophen 650 mg 08/18/20 23:57 08/20/20 16:39 Acetaminophen 325 Mg Tablet PO 650 mg Q6H PRN Administration Pain, Mild (Pain Scale 1-3) Amlodipine Besylate 2.5 mg 08/19/20 09:00 08/23/20 08:39 Amlodipine Besylate 2.5 Mg Tablet PO Not Given DAILY [facility] Protocol Aspirin 81 mg 08/19/20 09:00 08/23/20 08:40 Aspirin Enteric Coated 81 Mg Tablet. PO Not Given DAILY [facility] Atorvastatin Calcium 80 mg 08/19/20 21:00 08/22/20 21:35 Atorvastatin Calcium 80 Mg Tablet PO 80 mg BEDTIME [facility] Administration Calcium Carbonate/Cholecalciferol 500 mg 08/19/20 09:00 08/23/20 08:40 Calcium + Vitamin D 250 Mg Tablet PO Not Given BID [facility] Cilostazol 100 mg 08/19/20 12:00 08/23/20 12:32 Cilostazol 100 Mg Tablet PO Not Given BID@1200,2100 [facility] Clopidogrel Bisulfate 75 mg 08/19/20 09:00 08/23/20 08:40 Clopidogrel Bisulfate 75 Mg Tablet PO Not Given DAILY [facility] Docusate Sodium 100 mg 08/18/20 23:57 Docusate Sodium 100 Mg Capsule PO DAILY PRN Constipation Ferrous Sulfate 324 mg 08/19/20 09:00 08/23/20 08:40 Ferrous Sulfate 324 Mg Tablet. PO Not Given DAILY [facility] Sodium Chloride 1,000 mls @ 100 mls/hr 08/22/20 17:30 08/23/20 12:35 Ns IVCONT 100 mls/hr .Q10H [facility] Administration Piperacillin Sod/Tazobactam 50 mls @ 100 mls/hr 08/23/20 14:15 Sod 2.25 gm/ Sodium Chloride IV Q12H [facility] Insulin Human Lispro 0 unit 08/19/20 07:30 08/23/20 12:34 Insulin Lispro 100 Unit/Ml 3 Ml Vial SUBCUT 2 unit QIDACHS [facility] Administration Protocol Insulin Human Lispro 10 unit 08/19/20 11:30 08/23/20 12:34 Insulin Lispro 100 Unit/Ml 3 Ml Vial SUBCUT 10 unit TIDAC [facility] Administration Levothyroxine Sodium 25 mcg 08/19/20 08:45 08/23/20 05:53 Levothyroxine Sodium 25 Mcg Tablet PO Not Given DAILY@0600 [facility] Loratadine 10 mg 08/19/20 09:00 08/23/20 08:40 Loratadine 10 Mg Tablet PO Not Given DAILY [facility] Metoprolol Tartrate 25 mg 08/19/20 09:00 08/23/20 08:41 Metoprolol Tartrate 25 Mg Tablet PO Not Given BID [facility] Protocol Montelukast Sodium 10 mg 08/19/20 21:00 08/22/20 21:35 Montelukast Sodium 10 Mg Tablet PO 10 mg BEDTIME [facility] Administration Ondansetron HCl 4 mg 08/18/20 23:57 Ondansetron Hcl 4 Mg/2 Ml Vial IVPUSH Q8H PRN Nausea and Vomiting Oxycodone HCl 5 mg 08/18/20 23:57 08/21/20 09:19 Oxycodone Hcl Immed Release 5 Mg Tablet PO 5 mg Q6H PRN Administration Pain, Severe (Pain Scale 7-10) Pharmacy Consult 1 each 08/18/20 16:48 Consult Rx Vancomycin Dosing MISCELLANE DAILY PRN Consult order Pharmacy Consult 1 each 08/23/20 14:04 Consult Rx Antimicrob Dosing MISCELLANE DAILY PRN Consult order Pregabalin 150 mg 08/19/20 09:00 08/23/20 08:41 Pregabalin 150 Mg Capsule PO Not Given BID [facility] Sodium Bicarbonate 650 mg 08/21/20 21:00 08/23/20 08:41 Sodium Bicarbonate 650 Mg Tablet PO Not Given BID [facility] Sodium Chloride 3 ml 08/19/20 00:00 08/23/20 08:38 0.9 % Sodium Chloride Flush 3 Ml Syringe IVFLUSH Not Given QSHIFT [facility] Venlafaxine HCl 37.5 mg 08/19/20 09:00 08/23/20 08:41 Venlafaxine Hcl Er 37.5 Mg Cap.Er.24h PO Not Given DAILY [facility] Vitamin D 25 mcg 08/19/20 09:00 08/23/20 08:40 Cholecalciferol (Vitamin D3) 25 Mcg Tablet PO Not Given DAILY [facility] Time Spent With Patient Time: Total time spent is greater than 50% in coordination of care (as documented) at patient's floor/unit and/or counseling patient: Time with patient: 15 - 24 minutes Procedures Date of Service Date of Service: 08/23/20
[2020-08-23 15:11] LABS: Complement C3 60 mg/dL (83-193)
--- NOTE | 2020-08-23 15:39 | PM.NEUROCN ---
History of Present Illness Data of Consult Service Date: 08/23/20 Primary Care Provider: Senait Pal MD HPI Reason for consult: Altered mental status and twitching This is a 65-year-old woman who has her cry her kidney disease, osteomyelitis of the left foot was admitted because of an infected foot and change in mental status over the last 3 or 4 days. According to her son she was mentally normal for her 5 days ago, when he visited her at home. She was admitted with an infected left foot and I was asked to evaluate her because of altered mental status, unresponsiveness, and generalized twitching PMFSH Past Medical History Medical History Anemia Asthma-COPD overlap syndrome Diabetes HTN (hypertension) Hypercholesteremia Hypothyroidism Neuropathy Family History Family history: reviewed and not pertinent Social History Social History Household Members: Other Housing: Apartment Do you presently have 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 or other home services: Yes Patient Tobacco Use Status: Former Tobacco user Use of substances other than those prescribed or required for medical reasons: No Currently Displaying Signs/Symptoms of Drug Intoxication Withdrawal: No Have you been hit, kicked, punched, or otherwise hurt by someone within the past year? If so, by whom?: No Do you feel safe in your current relationship?: No Current Relationship Is there a partner from a previous relationship who is making you feel unsafe now?: No Are you made to feel afraid or neglected: No Advance Directives: Yes Advance Directives Information Provided: Yes Advance Directives on File: No Advance Directives Date on File: 08/18/20 Do you have thoughts of harming others: None Do you have a plan to hurt others: No Plan Recently lost weight without trying: No Eating poorly because of decreased appetite: No Nutrition Risks: No Nutritional Risk service: No Current occupational status: disabled Meds Allergies Allergy/AdvReac Type Severity Reaction Status Date / Time ALLYSSA Inhibitors Allergy Mild COUGH Verified 08/11/20 14:06 [ALLYSSA INHIBITORS] cilostazol [CILOSTAZOL] Allergy Mild COUGH Verified 08/11/20 14:06 Active Medications: Current Medications Generic Name Dose Route Start Last Admin Trade Name Freq PRN Reason Stop Dose Admin Acetaminophen 650 mg 08/18/20 23:57 08/20/20 16:39 Acetaminophen 325 Mg Tablet PO 650 mg Q6H PRN Administration Pain, Mild (Pain Scale 1-3) Amlodipine Besylate 2.5 mg 08/19/20 09:00 08/23/20 08:39 Amlodipine Besylate 2.5 Mg Tablet PO Not Given DAILY [facility] Protocol Aspirin 81 mg 08/19/20 09:00 08/23/20 08:40 Aspirin Enteric Coated 81 Mg Tablet. PO Not Given DAILY [facility] Atorvastatin Calcium 80 mg 08/19/20 21:00 08/22/20 21:35 Atorvastatin Calcium 80 Mg Tablet PO 80 mg BEDTIME [facility] Administration Calcium Carbonate/Cholecalciferol 500 mg 08/19/20 09:00 08/23/20 08:40 Calcium + Vitamin D 250 Mg Tablet PO Not Given BID [facility] Cilostazol 100 mg 08/19/20 12:00 08/23/20 12:32 Cilostazol 100 Mg Tablet PO Not Given BID@1200,2100 [facility] Clopidogrel Bisulfate 75 mg 08/19/20 09:00 08/23/20 08:40 Clopidogrel Bisulfate 75 Mg Tablet PO Not Given DAILY [facility] Docusate Sodium 100 mg 08/18/20 23:57 Docusate Sodium 100 Mg Capsule PO DAILY PRN Constipation Ferrous Sulfate 324 mg 08/19/20 09:00 08/23/20 08:40 Ferrous Sulfate 324 Mg Tablet. PO Not Given DAILY [facility] Heparin Sodium (Porcine) 5,000 unit 08/23/20 14:30 Heparin Sodium,Porcine 5,000 Unit/Ml Vial SUBCUT Q12H [facility] Sodium Chloride 1,000 mls @ 100 mls/hr 08/22/20 17:30 08/23/20 12:35 Ns IVCONT 100 mls/hr .Q10H [facility] Administration Piperacillin Sod/Tazobactam 50 mls @ 100 mls/hr 08/23/20 14:15 Sod 2.25 gm/ Sodium Chloride IV Q8H [facility] Insulin Human Lispro 0 unit 08/19/20 07:30 08/23/20 12:34 Insulin Lispro 100 Unit/Ml 3 Ml Vial SUBCUT 2 unit QIDACHS [facility] Administration Protocol Insulin Human Lispro 10 unit 08/19/20 11:30 08/23/20 12:34 Insulin Lispro 100 Unit/Ml 3 Ml Vial SUBCUT 10 unit TIDAC [facility] Administration Levothyroxine Sodium 25 mcg 08/19/20 08:45 08/23/20 05:53 Levothyroxine Sodium 25 Mcg Tablet PO Not Given DAILY@0600 [facility] Loratadine 10 mg 08/19/20 09:00 08/23/20 08:40 Loratadine 10 Mg Tablet PO Not Given DAILY [facility] Metoprolol Tartrate 25 mg 08/19/20 09:00 08/23/20 08:41 Metoprolol Tartrate 25 Mg Tablet PO Not Given BID [facility] Protocol Montelukast Sodium 10 mg 08/19/20 21:00 08/22/20 21:35 Montelukast Sodium 10 Mg Tablet PO 10 mg BEDTIME [facility] Administration Ondansetron HCl 4 mg 08/18/20 23:57 Ondansetron Hcl 4 Mg/2 Ml Vial IVPUSH Q8H PRN Nausea and Vomiting Oxycodone HCl 5 mg 08/18/20 23:57 08/21/20 09:19 Oxycodone Hcl Immed Release 5 Mg Tablet PO 5 mg Q6H PRN Administration Pain, Severe (Pain Scale 7-10) Pharmacy Consult 1 each 08/18/20 16:48 Consult Rx Vancomycin Dosing MISCELLANE DAILY PRN Consult order Pharmacy Consult 1 each 08/23/20 14:04 Consult Rx Antimicrob Dosing MISCELLANE DAILY PRN Consult order Pregabalin 150 mg 08/19/20 09:00 08/23/20 08:41 Pregabalin 150 Mg Capsule PO Not Given BID [facility] Sodium Bicarbonate 650 mg 08/21/20 21:00 08/23/20 08:41 Sodium Bicarbonate 650 Mg Tablet PO Not Given BID [facility] Sodium Chloride 3 ml 08/19/20 00:00 08/23/20 15:32 0.9 % Sodium Chloride Flush 3 Ml Syringe IVFLUSH Not Given QSHIFT [facility] Venlafaxine HCl 37.5 mg 08/19/20 09:00 08/23/20 08:41 Venlafaxine Hcl Er 37.5 Mg Cap.Er.24h PO Not Given DAILY [facility] Vitamin D 25 mcg 08/19/20 09:00 08/23/20 08:40 Cholecalciferol (Vitamin D3) 25 Mcg Tablet PO Not Given DAILY [facility] Home Medications Medication Instructions Recorded Confirmed Last Taken Type amlodipine 1 tab PO QAM 05/17/20 08/19/20 08/17/20 08:30 History aspirin 1 tab PO QAM 05/17/20 08/19/20 08/17/20 08:30 History atorvastatin 1 tab PO BEDTIME 05/17/20 08/19/20 08/17/20 20:00 History cholecalciferol (vitamin D3) 1 cap PO QAM 05/17/20 08/19/20 08/17/20 08:30 History [Vitamin D3] cilostazol 100 mg PO BID@1200,2100 05/17/20 08/19/20 08/17/20 20:00 History clopidogrel 1 tab PO QAM 05/17/20 08/19/20 08/17/20 08:30 History ferrous sulfate 1 tab PO QAM 05/17/20 08/19/20 08/17/20 08:30 History insulin lispro [Humalog KwikPen 10 unit SUBCUT TIDAC 05/17/20 08/19/20 08/17/20 19:00 History Insulin] 40 units levothyroxine 1 tab PO QAM 05/17/20 08/19/20 08/18/20 20:30 History loratadine 1 tab PO QAM 05/17/20 08/19/20 08/18/20 20:30 History metoprolol tartrate 1 tab PO BID 05/17/20 08/19/20 08/17/20 20:00 History montelukast 1 tab PO BEDTIME 05/17/20 08/19/20 08/17/20 20:00 History pregabalin 1 cap PO BID 05/17/20 08/19/20 08/17/20 20:00 History venlafaxine 1 cap PO QAM 05/17/20 08/19/20 08/18/20 08:30 History Physical Exam Vital Signs: Vital Signs: Last Vital Signs Temp 97.6 F 08/23/20 15:27 Pulse 96 08/23/20 15:27 Resp 20 08/23/20 15:27 BP 140/65 H 08/23/20 15:27 Pulse Ox 95 08/23/20 15:27 Body Mass Index 32.0 Neuro: Other: She is arousable but lethargic. He does not verbalize or follow commands. She'll occasionally makes eye contact. She has a focal or multifocal myoclonic twitches of her face on either side eyelids as well as the 4 limbs and sometimes the trunk almost on a continuous basis. There is minimal nuchal rigidity. Plantar responses are extensor. She Results Labs CBC & Chem 7: 08/23/20 06:29 08/23/20 06:29 Labs: Short CBC 08/23/20 Range/Units 06:29 WBC 13.7 H (4.8-10.8) X10*3/uL Hgb 8.9 L (12.0-16.0) g/dl Hct 28.6 L (37-47) % Plt Count 301 D (160-400) X10*3/uL BMP 08/23/20 06:29 Sodium 136 Potassium 4.5 Chloride 110 H Carbon Dioxide 16 L BUN 47 H Creatinine 3.79 H Calcium 6.6 L Microbiology Microbiology Results: Microbiology 08/18/20 16:15 Blood - Venous Blood Culture - Preliminary No growth after 48 hours. 08/18/20 16:15 Blood - Venous Blood Culture - Preliminary No growth after 48 hours. Assessment and Plan (1) Metabolic encephalopathy: Status: Acute She has a metabolic encephalopathy possibly also an infectious etiology. I would recommend a lumbar puncture to make sure that there is no meningitis or encephalitis. She is having multifocal myoclonic movements (2) Myoclonic seizures: Status: Acute Her EEG shows surgeon generalize 1-2 Hz triphasic waves consistent with metabolic encephalopathy and occasional spike and slow-wave isolated discharges from the frontal regions. Would recommend starting Keppra 1 g twice a day. (3) CKD (chronic kidney disease): Status: Acute (4) Osteomyelitis of great toe of left foot: Status: Acute Procedures Date of Service Date of Service: 08/23/20
--- NOTE | 2020-08-23 15:39 | PC.NURSE ---
P bilateral hands swelling present,fine crackles in bilateral bases ,no SOB noted I Dr. Monzon at the bedside,aware of the above e will monitor
[2020-08-23] MEDS: Heparin Sodium,Porcine 5,000 UNIT/ML VIAL 5000 UNIT SUBCUT (15:40)
[2020-08-23] MEDS: Piperacillin Sodium/Tazobactam 2.25 GM in 0.9 % Sodium Chloride 50 ML IV ×2 (15:40→21:58)
[2020-08-23 16:29] LABS: Glucose, Whole Blood 157 mg/dL (60-115)
--- NOTE | 2020-08-23 16:37 | PC.NURSE ---
P BS 157 ,patient unable to eat,patient placed on media monitor,awaiting order I MARYELLEN Glover notified of the above E will hold insulin coverage,RSR on a monitor
--- NOTE | 2020-08-23 18:26 | P.PNNP_ITS ---
Subjective Subjective Date of Service: 08/23/20 Principal diagnosis: mary kate/ckd Interval history: Seen and examined, events noted cont confusion and tremors Physical Exam Vital Signs: Vital Signs: Last Vital Signs Temp 97.6 F 08/23/20 15:27 Pulse 96 08/23/20 15:27 Resp 20 08/23/20 15:27 BP 140/65 H 08/23/20 15:27 Pulse Ox 95 08/23/20 15:27 Body Mass Index 32.0 Const: General: cooperative, healthy appearing, comfortable and no acute distress Orientation/consciousness: oriented to person, oriented to place, oriented to time and patient oriented x3 HENMT: Head: Yes normal to inspection and Yes atraumatic Mouth: Normal oral and palatal mucosa present Eyes: General: appearance normal, both eyes and all related structures Neck: Neck: Yes normal visual inspection Carotids: no bruits Chest: Chest palpation & inspection: normal inspection of the chest Resp: Effort & Inspection: normal respiratory effort and able to speak in co mplete sentences Auscultation: clear to auscultation bilaterally, no crac kles, no rales, no rhonchi and no wheezes Cardio: Rate: regular rate Rhythm: regular rhythm Heart sounds: S1 normal heart sound present and S2 normal heart sound present Bruits: no carotid bruits Peripheral pulses: dorsalis pedis present (Bilateral DP signals) GI: Inspection: Yes normal to inspection Palpation (GI): Soft to palpation and nontender Auscultation: normal bowel sounds : General: Yes no CVA tenderness Back/Spine/Pelvis: Back: no CVA tenderness Skin: General skin exam: no rashes or lesions noted Wounds: wounds noted (Nonhealing left great toe) Hair: normal Neuro: General: oriented to person, oriented to place, oriented to time, patient oriented x3 and CN's II-XI intact bilaterally Cranial nerves: Yes CN's II-XII intact bilaterally and Yes Normal hearing present Cognition (Neuro): normal cognition Motor exam (neuro): 5/5 motor strength present throughout Extrem: General: Yes normal to inspection, Yes full ROM, Yes no clubbing, cyan osis or edema, No clubbing, No cyanosis and No edema Psych: Appearance: grossly normal and well kempt Mental Status: mental status grossly normal Speech and movement: Normal speech and movement present Affect: normal affect Objective Data Labs CBC & Chem 7: 06/08/21 06:29 08/23/20 06:29 Labs: Laboratory Results - last 24 hr 08/22/20 08/22/20 08/23/20 07:37 20:17 06:29 WBC 13.7 H RBC 3.29 L Hgb 8.9 L Hct 28.6 L MCV 86.9 MCH 27.1 MCHC 31.1 RDW 14.4 Plt Count 301 D MPV 11.0 Absolute Nucleated RBC 0.000 Nucleated RBC % (auto) 0.0 O2 Saturation ABG pH at Pt Temp ABG pH (Temp Correct) ABG pCO2 at Pt Temp ABG pCO2 (Temp Corrct ABG pO2 at Pt Temp ABG pO2 (Temp Correct ABG HCO3 ABG Base Excess (Actual) Sodium Potassium Chloride Carbon Dioxide Anion Gap BUN Creatinine Estim Creat Clear Calc Estimated GFR POC Glucose 191 H Random Glucose Calcium Ammonia Vitamin B12 Folate TSH Complement C3 60 L Complement C4 11 L 08/23/20 08/23/20 08/23/20 06:29 06:29 07:12 WBC RBC Hgb Hct MCV MCH MCHC RDW Plt Count MPV Absolute Nucleated RBC Nucleated RBC % (auto) O2 Saturation ABG pH at Pt Temp ABG pH (Temp Correct) ABG pCO2 at Pt Temp ABG pCO2 (Temp Corrct ABG pO2 at Pt Temp ABG pO2 (Temp Correct ABG HCO3 ABG Base Excess (Actual) Sodium 136 Potassium 4.5 Chloride 110 H Carbon Dioxide 16 L Anion Gap 15 BUN 47 H Creatinine 3.79 H Estim Creat Clear Calc 13.1 Estimated GFR 12 POC Glucose 189 H Random Glucose 199 H D Calcium 6.6 L Ammonia Vitamin B12 472 Folate 12.8 TSH 2.51 Complement C3 Complement C4 08/23/20 08/23/20 08/23/20 12:01 12:01 13:01 WBC RBC Hgb Hct MCV MCH MCHC RDW Plt Count MPV Absolute Nucleated RBC Nucleated RBC % (auto) O2 Saturation 93.0 ABG pH at Pt Temp 7.27 L ABG pH (Temp Correct) 7.27 L ABG pCO2 at Pt Temp 29 L ABG pCO2 (Temp Corrct 28 L ABG pO2 at Pt Temp 75 L ABG pO2 (Temp Correct 73 L ABG HCO3 13 L ABG Base Excess (Actual) -11.7 Sodium Potassium Chloride Carbon Dioxide Anion Gap BUN Creatinine Estim Creat Clear Calc Estimated GFR POC Glucose 191 H Random Glucose Calcium Ammonia 24 Vitamin B12 Folate TSH Complement C3 Complement C4 08/23/20 16:18 WBC RBC Hgb Hct MCV MCH MCHC RDW Plt Count MPV Absolute Nucleated RBC Nucleated RBC % (auto) O2 Saturation ABG pH at Pt Temp ABG pH (Temp Correct) ABG pCO2 at Pt Temp ABG pCO2 (Temp Corrct ABG pO2 at Pt Temp ABG pO2 (Temp Correct ABG HCO3 ABG Base Excess (Actual) Sodium Potassium Chloride Carbon Dioxide Anion Gap BUN Creatinine Estim Creat Clear Calc Estimated GFR POC Glucose 157 H Random Glucose Calcium Ammonia Vitamin B12 Folate TSH Complement C3 Complement C4 Microbiology Microbiology Results: Microbiology 08/18/20 16:15 Blood - Venous Blood Culture - Final No growth after 5 days. 08/18/20 16:15 Blood - Venous Blood Culture - Final No growth after 5 days. Assessment & Plan Assessment and plan (1) MARY KATE (acute kidney injury): Status: Acute Assessment and Plan: 1. MARY KATE: incr SCR is concerning and DDx includies Im-CX GN from ongoing infevction: C3/C4 both low and raises conecern for IM-Cx multifact ATN: no obvious insults..no hypotension pre-renal despite FENa > 1% CAROL/IRD and ques chol emboli: all deffinite poss given severeity of ASVD Obs r/o by renal U/s OTHER: AGN ( anca); dysproteiniemia 2. CKD 4: bsl SCr 2.0: most c/w DN/HTN renal dis 3. AMS: suspect med pregabapentin playing signif role 4. HypoCa: c/w 2ry Hyperparathyroidism REC: agree with d/c pregablin; add Phos level to prior labs, check vit D and PTH; likely will need calcitriol; may need kidney Bx if MARY KATE cont worsen given decr C3/C4 will follow perla with team Time Spent With Patient Time: Total time spent is greater than 50% in coordination of care (as documented) at patient's floor/unit and/or counseling patient: Procedures Date of Service Date of Service: 08/23/20
--- NOTE | 2020-08-23 18:47 | PC.NURSE ---
0k to take patient off brush cleaner for MRI per MARYELLEN Colindres
[2020-08-23 18:55] LABS: Phosphorus 5.2 mg/dL (2.7-4.5)
[2020-08-23 20:27] LABS: Glucose, Whole Blood 131 mg/dL (60-115)
--- NOTE | 2020-08-23 21:53 | PC.NURSE ---
P patient sleeping most of this shift,opens eyes but does not speak,unable to administer HS meds I Dr. Guzmán notified of the above.
[2020-08-24] VITALS (8 sets, daily range): BP systolic 151–194; BP diastolic 63–81; PULSE 98–125; RESP 19–24; TEMP 36.8–37.3; O2SAT 93–97
[2020-08-24] MEDS: Labetalol HCL 100 MG/20 ML VIAL 10 MG IVPUSH (00:59)
[2020-08-24] MEDS: Heparin Sodium,Porcine 5,000 UNIT/ML VIAL 5000 UNIT SUBCUT ×2 (00:59→15:33)
[2020-08-24] MEDS: Piperacillin Sodium/Tazobactam 2.25 GM in 0.9 % Sodium Chloride 50 ML IV ×3 (06:16→21:57)
[2020-08-24 06:45] LABS: Anion Gap 19 (12-20); Blood Urea Nitrogen 46 mg/dL (9-16); Calcium 6.7 mg/dL (8.4-10.2); Carbon Dioxide 13 mmol/L (22-29); Chloride 113 mmol/L (96-108); Creatinine Clr Calc Pharmacy 13.9; Estimated Glomerular Filt Rate 13; Glucose Random 146 mg/dL (60-115); Potassium 4.5 mmol/L (3.3-5.1); Sodium 140 mmol/L (135-145)
[2020-08-24 07:34] LABS: Glucose, Whole Blood 178 mg/dL (60-115)
[2020-08-24] MEDS: 0.9 % Sodium Chloride Flush 3 ML SYRINGE IVFLUSH (07:46)
[2020-08-24] MEDS: 0.9 % Sodium Chloride 1,000 ML 100 ML IVCONT (08:57)
[2020-08-24 10:24] LABS: Hematocrit 29.4 % (37-47); Hemoglobin 9.1 g/dl (12.0-16.0); Mean Corpuscular Hemoglobin 27.4 pg (27.0-33.0); Mean Corpuscular Volume 88.6 fL (80-98); Mean Platelet Volume 11.2 fL (9.4-12.3); NRBC Pct Auto 0.2 /100WBC (0.0-0.2); Platelet Count 360 X10*3/uL (160-400); Red Blood Count 3.32 X10*6/uL (4.20-5.50); Red Cell Distribution Width 14.7 % (11.0-16.0); White Blood Count 17.6 X10*3/uL (4.8-10.8)
[2020-08-24 10:27] LABS: Calcium (PTHI) 6.8 mg/dL (8.6-10.4); PTHI 51 pg/mL (14-64)
--- NOTE | 2020-08-24 10:36 | P.PNVS_ITS ---
Subjective Subjective Date of Service: 08/24/20 Interval history: Patient seen and examined. Patient was transferred to [facility] [place] yesterday. Still confused in to keep neck at visit. Similar to findings of yesterday. No significant change. Physical Exam Vital Signs: Vital Signs: Last Vital Signs Temp 98.3 F 08/24/20 08:00 Pulse 104 H 08/24/20 08:00 Resp 20 08/24/20 08:00 BP 156/69 H 08/24/20 08:00 Pulse Ox 97 08/24/20 08:00 Body Mass Index 32.0 Const: General: cooperative, healthy appearing and no acute distress Orientation/consciousness: oriented to person, oriented to place and oriented to time HENMT: Head: Yes normal to inspection Neck: Carotids: no bruits Chest: Chest palpation & inspection: normal inspection of the chest Resp: Effort & Inspection: normal respiratory effort and able to speak in complete sentences Auscultation: clear to auscultation bilaterally Cardio: Rate: regular rate Heart sounds: S1 normal heart sound present and S2 normal heart sound present GI: Inspection: Yes normal to inspection Skin: General skin exam: no rashes or lesions noted Wounds: wounds noted (Nonhealing left great toe) Neuro: General: oriented to person, oriented to place, oriented to time and CN's II-XI intact bilaterally Extrem: General: Yes normal to inspection, Yes full ROM and Yes no clubbing, cyanosis or edema Psych: Appearance: grossly normal and well kempt Speech and movement: Normal speech and movement present Affect: normal affect Progress Note: A&P Assessment and plan (1) PAD (peripheral artery disease): Status: Acute Assessment and Plan: In short patient has nonhealing left great toe. I would like her overall medical status to improve prior to any a operative intervention. I do believe amputation would be in her best interest. Will continue to monitor her medical status. As she improves will consider amputation. Thank you for allowing us to assist in her care. Fall Risk Details Current Medications: Current Medications Generic Name Dose Route Start Last Admin Trade Name Freq PRN Reason Stop Dose Admin Acetaminophen 650 mg 08/18/20 23:57 08/20/20 16:39 Acetaminophen 325 Mg Tablet PO 650 mg Q6H PRN Administration Pain, Mild (Pain Scale 1-3) Amlodipine Besylate 2.5 mg 08/19/20 09:00 08/24/20 07:52 Amlodipine Besylate 2.5 Mg Tablet PO Not Given DAILY [facility] Protocol Aspirin 81 mg 08/19/20 09:00 08/24/20 07:52 Aspirin Enteric Coated 81 Mg Tablet. PO Not Given DAILY [facility] Atorvastatin Calcium 80 mg 08/19/20 21:00 08/23/20 20:29 Atorvastatin Calcium 80 Mg Tablet PO Not Given BEDTIME [facility] Calcium Carbonate/Cholecalciferol 500 mg 08/19/20 09:00 08/24/20 07:52 Calcium + Vitamin D 250 Mg Tablet PO Not Given BID [facility] Cilostazol 100 mg 08/19/20 12:00 08/23/20 20:30 Cilostazol 100 Mg Tablet PO Not Given BID@1200,2100 [facility] Clopidogrel Bisulfate 75 mg 08/19/20 09:00 08/24/20 07:52 Clopidogrel Bisulfate 75 Mg Tablet PO Not Given DAILY [facility] Docusate Sodium 100 mg 08/18/20 23:57 Docusate Sodium 100 Mg Capsule PO DAILY PRN Constipation Ferrous Sulfate 324 mg 08/19/20 09:00 08/24/20 07:52 Ferrous Sulfate 324 Mg Tablet. PO Not Given DAILY [facility] Heparin Sodium (Porcine) 5,000 unit 08/23/20 14:30 08/24/20 00:59 Heparin Sodium,Porcine 5,000 Unit/Ml Vial SUBCUT 5,000 unit Q12H [facility] Administration Sodium Chloride 1,000 mls @ 100 mls/hr 08/22/20 17:30 08/24/20 08:57 Ns IVCONT 100 mls/hr .Q10H [facility] Administration Piperacillin Sod/Tazobactam 50 mls @ 100 mls/hr 08/23/20 14:15 08/24/20 07:30 Sod 2.25 gm/ Sodium Chloride IV Infused Q8H [facility] Infusion Insulin Human Lispro 0 unit 08/19/20 07:30 08/24/20 07:39 Insulin Lispro 100 Unit/Ml 3 Ml Vial SUBCUT Not Given QIDACHS [facility] Protocol Insulin Human Lispro 10 unit 08/19/20 11:30 08/24/20 07:40 Insulin Lispro 100 Unit/Ml 3 Ml Vial SUBCUT Not Given TIDAC [facility] Levothyroxine Sodium 25 mcg 08/19/20 08:45 08/24/20 06:15 Levothyroxine Sodium 25 Mcg Tablet PO Not Given DAILY@0600 [facility] Loratadine 10 mg 08/19/20 09:00 08/24/20 07:53 Loratadine 10 Mg Tablet PO Not Given DAILY [facility] Metoprolol Tartrate 25 mg 08/19/20 09:00 08/24/20 07:53 Metoprolol Tartrate 25 Mg Tablet PO Not Given BID [facility] Protocol Montelukast Sodium 10 mg 08/19/20 21:00 08/23/20 20:31 Montelukast Sodium 10 Mg Tablet PO Not Given BEDTIME [facility] Ondansetron HCl 4 mg 08/18/20 23:57 Ondansetron Hcl 4 Mg/2 Ml Vial IVPUSH Q8H PRN Nausea and Vomiting Pharmacy Consult 1 each 08/18/20 16:48 Consult Rx Vancomycin Dosing MISCELLANE DAILY PRN Consult order Pharmacy Consult 1 each 08/23/20 14:04 Consult Rx Antimicrob Dosing MISCELLANE DAILY PRN Consult order Sodium Bicarbonate 650 mg 08/21/20 21:00 08/24/20 07:53 Sodium Bicarbonate 650 Mg Tablet PO Not Given BID [facility] Sodium Chloride 3 ml 08/19/20 00:00 08/24/20 07:46 0.9 % Sodium Chloride Flush 3 Ml Syringe IVFLUSH 3 ml QSHIFT [facility] Administration Venlafaxine HCl 37.5 mg 08/19/20 09:00 08/24/20 07:53 Venlafaxine Hcl Er 37.5 Mg Cap.Er.24h PO Not Given DAILY [facility] Vitamin D 25 mcg 08/19/20 09:00 08/24/20 07:53 Cholecalciferol (Vitamin D3) 25 Mcg Tablet PO Not Given DAILY [facility] Time Spent With Patient Time: Total time spent is greater than 50% in coordination of care (as documented) at patient's floor/unit and/or counseling patient: Time with patient: 25 - 35 minutes Procedures Date of Service Date of Service: 08/24/20
[2020-08-24 11:13] LABS: Glucose, Whole Blood 174 mg/dL (60-115)
--- NOTE | 2020-08-24 12:27 | HO.PM.IMPN ---
Subjective Subjective Date of Service: 08/24/20 <Ladan Jackson NP - Last Filed: 08/24/20 15:53> 08/24/20 <Alex Monzon MD - Last Filed: 08/24/20 16:24> Interval History: follow-up encephalopathy still encephalopathic but moving her extremities more <Ladan Jackson NP - Last Filed: 08/24/20 15:53> Physical Exam Vital Signs: Vital Signs: Last Vital Signs Temp 99.1 F 08/24/20 11:52 Pulse 115 H 08/24/20 11:52 Resp 20 08/24/20 11:52 BP 170/75 H 08/24/20 11:52 Pulse Ox 94 08/24/20 11:52 Body Mass Index 32.0 <Ladan Jackson NP - Last Filed: 08/24/20 15:53> Appearing in no acute distress lung sounds are clear to auscultation heart regular rate rhythm, clear S1, S2 positive bowel sounds, abdomen is soft, nontender neuro is not oriented, opens eyes without purposeful movement <Ladan Jackson NP - Last Filed: 08/24/20 15:53> Objective Data Current Medications Generic Name Dose Route Start Last Admin Trade Name Freq PRN Reason Stop Dose Admin Acetaminophen 650 mg 08/18/20 23:57 08/20/20 16:39 Acetaminophen 325 Mg Tablet PO 650 mg Q6H PRN Administration Pain, Mild (Pain Scale 1-3) Amlodipine Besylate 2.5 mg 08/19/20 09:00 08/24/20 07:52 Amlodipine Besylate 2.5 Mg Tablet PO Not Given DAILY [facility] Protocol Aspirin 81 mg 08/19/20 09:00 08/24/20 07:52 Aspirin Enteric Coated 81 Mg Tablet. PO Not Given DAILY [facility] Atorvastatin Calcium 80 mg 08/19/20 21:00 08/23/20 20:29 Atorvastatin Calcium 80 Mg Tablet PO Not Given BEDTIME [facility] Calcium Carbonate/Cholecalciferol 500 mg 08/19/20 09:00 08/24/20 07:52 Calcium + Vitamin D 250 Mg Tablet PO Not Given BID [facility] Cilostazol 100 mg 08/19/20 12:00 08/24/20 11:16 Cilostazol 100 Mg Tablet PO Not Given BID@1200,2100 [facility] Clopidogrel Bisulfate 75 mg 08/19/20 09:00 08/24/20 07:52 Clopidogrel Bisulfate 75 Mg Tablet PO Not Given DAILY [facility] Docusate Sodium 100 mg 08/18/20 23:57 Docusate Sodium 100 Mg Capsule PO DAILY PRN Constipation Ferrous Sulfate 324 mg 08/19/20 09:00 08/24/20 07:52 Ferrous Sulfate 324 Mg Tablet.Dr PO Not Given DAILY [facility] Heparin Sodium (Porcine) 5,000 unit 08/23/20 14:30 08/24/20 00:59 Heparin Sodium,Porcine 5,000 Unit/Ml Vial SUBCUT 5,000 unit Q12H [facility] Administration Sodium Chloride 1,000 mls @ 100 mls/hr 08/22/20 17:30 08/24/20 08:57 Ns IVCONT 100 mls/hr .Q10H [facility] Administration Piperacillin Sod/Tazobactam 50 mls @ 100 mls/hr 08/23/20 14:15 08/24/20 07:30 Sod 2.25 gm/ Sodium Chloride IV Infused Q8H [facility] Infusion Insulin Human Lispro 0 unit 08/19/20 07:30 08/24/20 11:16 Insulin Lispro 100 Unit/Ml 3 Ml Vial SUBCUT Not Given QIDACHS [facility] Protocol Insulin Human Lispro 10 unit 08/19/20 11:30 08/24/20 11:16 Insulin Lispro 100 Unit/Ml 3 Ml Vial SUBCUT Not Given TIDAC [facility] Levothyroxine Sodium 25 mcg 08/19/20 08:45 08/24/20 06:15 Levothyroxine Sodium 25 Mcg Tablet PO Not Given DAILY@0600 [facility] Loratadine 10 mg 08/19/20 09:00 08/24/20 07:53 Loratadine 10 Mg Tablet PO Not Given DAILY [facility] Metoprolol Tartrate 25 mg 08/19/20 09:00 08/24/20 07:53 Metoprolol Tartrate 25 Mg Tablet PO Not Given BID [facility] Protocol Montelukast Sodium 10 mg 08/19/20 21:00 08/23/20 20:31 Montelukast Sodium 10 Mg Tablet PO Not Given BEDTIME [facility] Ondansetron HCl 4 mg 08/18/20 23:57 Ondansetron Hcl 4 Mg/2 Ml Vial IVPUSH Q8H PRN Nausea and Vomiting Pharmacy Consult 1 each 08/18/20 16:48 Consult Rx Vancomycin Dosing MISCELLANE DAILY PRN Consult order Pharmacy Consult 1 each 08/23/20 14:04 Consult Rx Antimicrob Dosing MISCELLANE DAILY PRN Consult order Sodium Bicarbonate 650 mg 08/21/20 21:00 08/24/20 07:53 Sodium Bicarbonate 650 Mg Tablet PO Not Given BID [facility] Sodium Chloride 3 ml 08/19/20 00:00 08/24/20 07:46 0.9 % Sodium Chloride Flush 3 Ml Syringe IVFLUSH 3 ml QSHIFT [facility] Administration Venlafaxine HCl 37.5 mg 08/19/20 09:00 08/24/20 07:53 Venlafaxine Hcl Er 37.5 Mg Cap.Er.24h PO Not Given DAILY [facility] Vitamin D 25 mcg 08/19/20 09:00 08/24/20 07:53 Cholecalciferol (Vitamin D3) 25 Mcg Tablet PO Not Given DAILY [facility] <Ladan Jackson NP - Last Filed: 08/24/20 15:53> Labs CBC & Chem 7: : 08/24/20 09:51 08/24/20 04:42 <Ladan Jackson NP - Last Filed: 08/24/20 15:53> Microbiology Microbiology Results: Microbiology 08/18/20 16:15 Blood - Venous Blood Culture - Final No growth after 5 days. 08/18/20 16:15 Blood - Venous Blood Culture - Final No growth after 5 days. <Ladan Jackson NP - Last Filed: 08/24/20 15:53> Assessment and Plan (1) Metabolic encephalopathy: Status: Acute <Ladan Jackson NP - Last Filed: 08/24/20 15:53> Assessment and Plan: 65-year-old female with history of diabetes as well as severe peripheral vascular disease who presents to the hospital with worsening infection of the left great toe, for which she was on Cephalexin Sepsis. Leukocytosis, tachycardia CT showing likely aspiration pneumonia -continue Zosyn - blood cultures, lactic acid pending Encephalopathy. Not communicating but moving around more today then yesterday, mildly agitated Brain CT, MRI negative for acute findings, negative urinalysis, no fever, mild leukocytosis ammonia 24, TSH 2.51, folate 12.8, corrected calcium 7.7, ABG 7.27/29/75/13 (met acidosis secondary to kidney failure) today not responding or taking direction, mostly with eyes closed or staring no infectious source found at this time - will change from cefepime to Zosyn to rule out medication related - EEG pending - neurology consult - due to this encephalopathy and unresponsiveness, healthcare proxy will be invoked, Javi So [phone] - discussed case with sectionizer, rec stopping pregabalin as this may intensify encephalopathy and renal failure, ultimately this may be the cause of her symptoms - medications stopped d/t encephalpopathy, added IV metoprolol MARY KATE on CKD. mild improvement -del rio cath -renal u/s negative for obstruction or stones -Nephrology following -serology, urine studies Osteomyelitis of the great toe of the left foot, with elevated ESR, CRP, drainage of the toe, discoloration, -Amputation canceled due to encephalopathy -blood cx neg after 48hrs -continue antibiotic -Oxycodone and Morphine PRN for pain Hypertension. controlled -continue amlodipine, metoprolol Diabetes. -humalog 10 tid -SS Hypothyroidism - continue levothyroxine History of severe peripheral vascular disease -continue statin, Plavix, cilostazol and aspirin HLD -Lipitor DVT prophylaxis with heparin Full code Attending:Dr. Monzon <Ladan Jackson NP - Last Filed: 08/24/20 15:53> (2) Myoclonic seizures: Status: Acute <Ladan Jackson NP - Last Filed: 08/24/20 15:53> Assessment and Plan: Addendum to documentation by midlevel I saw and examined the patient and participated in the sotomayor portion of the E/M service. I discussed finding and mangement with MEDICAL IMAGING TECH, I agree with above above except if stated otherwise. Patient remains encephalopathic, albeit a bit better today. Her WBC is high, and CXR suggest pneumonia which i suspect is due to aspiration from AMS, she is maintaining her airway and oxygen saturation is within normal without O2. Will continue mangement with holding of Lyrica which is likely contributing to her symptoms in light of renal failure, I suggest changing Abx to Unassyn, since WBC going up Zosyn and continue gently hydration, O/W I agree with above <Alex Monzon MD - Last Filed: 08/24/20 16:24>
[2020-08-24 14:22] LABS: COVID-19 Test Negative (Negative)
--- NOTE | 2020-08-24 15:48 | MHC.CM.PN ---
EMR REVIEWED, PT CONTS TO HAVE AMS, PER HOSPITALIST PREGABALIN D/C'D DUE TO CAUSING WORSENING RENAL FAILURE, ENCEPHALOPATH AND MAY BE CAUSE OF HER AMS, IF PT CLEARS IN ANOTHER 1-2 DAYS SURGERY FOR AMP WILL BE RESCHEDULED. CM TO CONT TO FOLLOW.
[2020-08-24 16:13] LABS: Glucose, Whole Blood 213 mg/dL (60-115)
[2020-08-24 16:46] LABS: Lactic Acid 0.7 mmol/L (0.5-2.0)
[2020-08-24] MEDS: Metoprolol Tartrate 5 MG in 0.9 % Sodium Chloride 50 ML 220 MG IV ×2 (16:46→21:53)
[2020-08-24] MEDS: Insulin Lispro 100 UNIT/ML 3 ML VIAL SUBCUT ×2 (16:49→20:56)
[2020-08-24 20:21] LABS: Glucose, Whole Blood 217 mg/dL (60-115)
--- NOTE | 2020-08-24 20:48 | P.PNNP_ITS ---
Subjective Subjective Date of Service: 08/25/20 Principal diagnosis: mary kate/ckd Interval history: Seen and exameind, events noted Physical Exam Vital Signs: Vital Signs: Last Vital Signs Temp 98.9 F 08/24/20 19:56 Pulse 115 H 08/24/20 19:56 Resp 24 H 08/24/20 19:56 BP 151/68 H 08/24/20 19:56 Pulse Ox 95 08/24/20 19:56 Body Mass Index 32.0 Const: General: cooperative, healthy appearing, comfortable and no acute distress Orientation/consciousness: oriented to person, oriented to place, oriented to time and patient oriented x3 HENMT: Head: Yes normal to inspection and Yes atraumatic Mouth: Normal oral and palatal mucosa present Eyes: General: appearance normal, both eyes and all related structures Neck: Neck: Yes normal visual inspection Carotids: no bruits Chest: Chest palpation & inspection: normal inspection of the chest Resp: Effort & Inspection: normal respiratory effort and able to speak in complete sentences Auscultation: clear to auscultation bilaterally, no crackles, no rales, no rhonchi and no wheezes Cardio: Rate: regular rate Rhythm: regular rhythm Heart sounds: S1 normal heart sound present and S2 normal heart sound present Bruits: no carotid bruits Peripheral pulses: dorsalis pedis present (Bilateral DP signals) GI: Inspection: Yes normal to inspection Palpation (GI): Soft to palpation and nontender Auscultation: normal bowel sounds : General: Yes no CVA tenderness Back/Spine/Pelvis: Back: no CVA tenderness Skin: General skin exam: no rashes or lesions noted Wounds: wounds noted (Nonhealing left great toe) Hair: normal Neuro: General: oriented to person, oriented to place, oriented to time, patient oriented x3 and CN's II-XI intact bilaterally Cranial nerves: Yes CN's II-XII intact bilaterally and Yes Normal hearing present Cognition (Neuro): normal cognition Motor exam (neuro): 5/5 motor strength present throughout Extrem: General: Yes normal to inspection, Yes full ROM, Yes no clubbing, cyanosis or edema, No clubbing, No cyanosis and No edema Psych: Appearance: grossly normal and well kempt Mental Status: mental status grossly normal Speech and movement: Normal speech and movement present Affect: normal affect Objective Data Labs CBC & Chem 7: 08/25/20 04:46 08/25/20 04:46 Labs: Laboratory Results - last 24 hr 08/22/20 08/24/20 08/24/20 07:37 04:42 07:29 WBC RBC Hgb Hct MCV MCH MCHC RDW Plt Count MPV Absolute Nucleated RBC Nucleated RBC % (auto) Sodium 140 Potassium 4.5 Chloride 113 H Carbon Dioxide 13 L Anion Gap 19 BUN 46 H Creatinine 3.59 H Estim Creat Clear Calc 13.9 Estimated GFR 13 POC Glucose 178 H Random Glucose 146 H Lactic Acid Calcium 6.7 L PTH Intact 51 Calcium (PTH Intact) 6.8 L COVID-19 ([facility]) COVID-19 [employer] 08/24/20 08/24/20 08/24/20 09:51 11:09 13:15 WBC 17.6 H RBC 3.32 L Hgb 9.1 L Hct 29.4 L MCV 88.6 MCH 27.4 MCHC 31.0 RDW 14.7 Plt Count 360 MPV 11.2 Absolute Nucleated RBC 0.030 H Nucleated RBC % (auto) 0.2 Sodium Potassium Chloride Carbon Dioxide Anion Gap BUN Creatinine Estim Creat Clear Calc Estimated GFR POC Glucose 174 H Random Glucose Lactic Acid Calcium PTH Intact Calcium (PTH Intact) COVID-19 ([facility]) Negative COVID-19 [employer] See Note 08/24/20 08/24/20 08/24/20 16:08 16:16 20:10 WBC RBC Hgb Hct MCV MCH MCHC RDW Plt Count MPV Absolute Nucleated RBC Nucleated RBC % (auto) Sodium Potassium Chloride Carbon Dioxide Anion Gap BUN Creatinine Estim Creat Clear Calc Estimated GFR POC Glucose 213 H 217 H Random Glucose Lactic Acid 0.7 Calcium PTH Intact Calcium (PTH Intact) COVID-19 ([facility]) COVID-19 Clin Com Microbiology Microbiology Results: Microbiology 08/18/20 16:15 Blood - Venous Blood Culture - Final No growth after 5 days. 08/18/20 16:15 Blood - Venous Blood Culture - Final No growth after 5 days. Assessment & Plan Assessment and plan (1) MARY KATE (acute kidney injury): Status: Acute Assessment and Plan: 1. MARY KATE: incr SCR is concerning bt slr decr SCr may reflect plateau phase of ATN but need to cosnider alt Dx including Im-CX GN from ongoing infevction: C3/C4 both low and raises conecern for IM-Cx multifact ATN: no obvious insults..no hypotension pre-renal despite FENa > 1% CAROL/IRD and ques chol emboli: all deffinite poss given severeity of ASVD Obs r/o by renal U/s OTHER: AGN ( anca); dysproteiniemia 2. CKD 4: bsl SCr 2.0: most c/w DN/HTN renal dis 3. AMS: suspect med pregabapentin playing signif role 4. HypoCa: c/w 2ry Hyperparathyroidism 5. NAGMA: lac flat; d/t MARY KATE/CKD vs diarrhea REC: agree with d/c pregablin; may need kidney Bx if MARY KATE cont worsen given decr C3/C4; check other sero as ordered; repalce HCO3 PO and IV; check ketones will follow perla with team Time Spent With Patient Time: Total time spent is greater than 50% in coordination of care (as documented) at patient's floor/unit and/or counseling patient: Procedures Date of Service Date of Service: 08/24/20
[2020-08-25] VITALS (30 sets, daily range): BP systolic 97–186; BP diastolic 44–107; PULSE 56–114; RESP 13–30; TEMP 34.9–37; O2SAT 92–100; BMI 32.0
[2020-08-25] MEDS: 0.9 % Sodium Chloride Flush 3 ML SYRINGE IVFLUSH ×4 (00:38→21:42)
[2020-08-25] MEDS: Heparin Sodium,Porcine 5,000 UNIT/ML VIAL 5000 UNIT SUBCUT ×2 (02:49→14:32)
[2020-08-25] MEDS: Metoprolol Tartrate 5 MG in 0.9 % Sodium Chloride 50 ML 220 MG IV ×2 (03:38→21:39)
[2020-08-25 04:09] LABS: Glucose, Whole Blood 244 mg/dL (60-115)
[2020-08-25] MEDS: Furosemide 40 MG/4 ML VIAL IVPUSH (04:35)
[2020-08-25] MEDS: Morphine Sulfate 2 MG/ML CARTRIDGE 1 MG IVPUSH (04:40)
[2020-08-25 04:54] LABS: Hematocrit 30.3 % (37-47); Hemoglobin 9.1 g/dl (12.0-16.0); Mean Corpuscular Hemoglobin 27.4 pg (27.0-33.0); Mean Corpuscular Volume 91.3 fL (80-98); Mean Platelet Volume 10.6 fL (9.4-12.3); NRBC Pct Auto 0.2 /100WBC (0.0-0.2); Platelet Count 402 X10*3/uL (160-400); Red Blood Count 3.32 X10*6/uL (4.20-5.50); Red Cell Distribution Width 15.3 % (11.0-16.0); White Blood Count 23.6 X10*3/uL (4.8-10.8)
[2020-08-25] MEDS: Furosemide 20 MG/2 ML VIAL IVPUSH (04:55)
--- NOTE | 2020-08-25 04:55 | PM.EVENT ---
Event Note Date of Service: 08/25/20 Event Note: Acute hypoxic respiratory failure: As per the day hospitalist from 08/24/2020; CT scan showed ground-glass opacities, raise concerns for aspiration. Patient kept NPO. On supplemental oxygen. During the night around 4:45 a.m. patient became acutely hypoxic; placed on Venti mask with saturations up to 91%. Respiratory rate 26 to 28; blood pressure is stable. Patient mildly tachycardic. Patient alert and awake follows simple commands; visibly short of breath. Lung sounds are coarse, noted rhonchi and occasional wheezes but good air entry. RN mentioned that she did chest physiotherapy as patient noted to be congested and unable to expectorate. Repeat chest x-ray showed worsening pulmonary infiltrates. Patient already on antibiotics. Started the patient on Solu-Medrol Given a dose of Lasix 60 mg IV; fluids have been discontinued earlier in the night. ProBNP pending ABG : ph-7.067; pco2->27; po2-73; given Sodium bicarb. Spoke to Dr Sweeney from ICU and discussed about pt's current condition; pt is accepted to ICU for further management. Notified pt's healthcare proxy, Javi So [phone]
[2020-08-25 04:59] LABS: ABG Refer to POC result
[2020-08-25 05:00] LABS: ABG Base Excess -20.2 mmol/L; ABG HCO3 8 mmol/L (22-26); ABG pCO2 27 mmHg (32-45); ABG pH 7.07 (7.35-7.45); ABG pO2 73 mmHg (83-108)
[2020-08-25] MEDS: Sodium Bicarbonate 8.4% 50 MEQ/50 ML VIAL IVPUSH ×2 (05:10→07:16)
[2020-08-25] MEDS: propofoL 1,000 MG/100 ML VIAL 13.39 MG IVCONT ×3 (05:35→17:58)
[2020-08-25 05:57] LABS: Anion Gap 25 (12-20); Blood Urea Nitrogen 54 mg/dL (9-16); Calcium 6.5 mg/dL (8.4-10.2); Carbon Dioxide 7 mmol/L (22-29); Chloride 115 mmol/L (96-108); Creatinine Clr Calc Pharmacy 12.7; Estimated Glomerular Filt Rate 11; Glucose Random 276 mg/dL (60-115); Potassium 5.2 mmol/L (3.3-5.1); Sodium 142 mmol/L (135-145)
--- NOTE | 2020-08-25 06:09 | PC.NURSE ---
PATIENT RECIEVED IN ICU APPROX 0530. UNRESPONSIVE, WORK OF BREATHING INCREASED, RR 30-40'S, REQUIRING 100% FIO2 VIA NRB. INTUBATED IMMEDIATELY BY ICU PA. LINE PLACED.
[2020-08-25 06:16] LABS: B Type Natriuretic Peptide 748 pg/mL (<100)
--- NOTE | 2020-08-25 06:19 | PC.NURSE ---
This nurse took over care at approximately 1920 Pt was not alert or oriented, minimally responding to verbal stimuli by moving head and eyes to directions of verbal stimuli, moving limbs and body more then previously. Does not follow follow commands, no purposeful movement. Pupils equal and reactive, no tracking, SR/ST on the monitor receiving metoprolol 5mg IV Q6H. Lung sounds audibly rhonchorous without stethescope, crackles in bases. Attempt at suctioning oral secretions with minimal effect. At 2300 notified about patient condition and requested to hold IV fluids. chest physiotherapy given with each reposition Spoke with MD about patients condition via telephone. Patient SR/ST, RR22, BP stable, Sats 95% on RA. MD agreed to hold on fluids. 0330 patients condition progressed vitals were taken. O2 Saturation 75% on room air increased work of breathing RR:24, Pt immediately put on NC increased to 7L -[id number] improved to 92%. MD updated and no new orders at this time.Patient continuing to desat 80's on NC switched to Venti mask, Increase work of breathing, accessory muscles being used, RR:30, Sat 92% on 55% venti mask. Patient attempting to use speech but nothing purposeful or appropriate, still not following commands. Request for MD to come to bedside. MD up to bedside. Stat orders for Furosemide 40mg IV, Morphine 1mg IV, solumedrol 60mg, Furosemide 20 mg, Stat CxR, Stat ABG's. pH returned 7.067,This nurse updated MD and request ICU transfer. Order for 1 amp of bicarb- given as ordered. Ming ICU PA up to evaluate patient at the bedside. Decision made to transfer patient to ICU for intubation and manage care. Patient transferred and report given. Urine output 2300 700ml, 0500- output 300ml. 2BM overnight, incontinent. Attempt to call muriel natarajan answer- sons phone number found in chart Ming will call and update HCP.
--- NOTE | 2020-08-25 06:27 | P.PCNCC_ITS ---
Procedures Date of Service Date of Service: 08/25/20 Central Line Placement A quick time-out was made for clarification and proper patient identification, patient was positioned, landmarks were identified, US used to locate a large compressible IJ. The right neck was widely prepped and draped in a full sterile fashion. Ultrasound was used to locate again the right IJ, the vein was cannulated on the 1st pass with an 18 gauge thin needle, dark nonpulsatile blood return was obtained. The wire was threaded, a small incision was made at its base and dilator inserted. A triple-lumen central venous catheter was advanced into the vein up to the hub without problems, wired was removed. Ports had good blood return and flushed x3. The catheter was secured with 3 sutures at 3 sites, a Biopatch and dry sterile dressing were applied.Post procedure chest x- ray showed the line to be in good position without pneumothorax. No bleeding or complications noted.: Consent for Procedure: Emergent-no informed consent obtained Time out performed: Yes Sterile Technique Used: Yes
--- NOTE | 2020-08-25 06:28 | W.PM.CCHP ---
Procedures Date of Service Date of Service: 08/25/20 Intubation Intubation Comments: Given that the patient's significant respiratory failure and fatigue, somnolence and hypoxia; , RSI was followed, patient was preoxygenated, the above-mentioned medications were used for sedation and paralysis. Using the GlideScope, the close was identified and using a 4.0 Blade, an ETT tube 7.5 was inserted via direct vision in a nontraumatic way. Post intubation, breath sounds were equal and bilateral, CO2 test in show positive color change to yellow, SpO2 maintained. The tube was secured at 24 cm at the upper lip. Patient tolerated the procedure well without complications. Postop x-ray showed endotracheal tube approximately 3 cm above the isidro. Case was discussed in detail with Dr. Sweeney. He is aware of all the above as well as the plan of care for this patient. Consent for Procedure: Emergent-no informed consent obtained Time out performed: Yes Sedative: etomidate Mg given: 30 Paralytic: succinylcholine Mg given: 100 Laryngoscope: fiber optic video scope ET tube size: 7.5 ET tube uncuffed: Yes Tube secured depth (cm): 25 Tube secured location: lips Tube placement confirmation: visualized tube passing through cords, equal breath sounds bilaterally and confirmation by capnometry Patient tolerated procedure: well and no complications Intubation complications: none
--- NOTE | 2020-08-25 06:30 | W.PM.CCCN ---
History of Present Illness Data of Consult Service Date: 08/25/20 Requesting physician: Roger Guzmán Primary Care Provider: Senait Pal MD HPI Reason for consult: Hypoxic respiratory failure HPI: 65-year-old female who had been admitted on August 18, 2020 due to an infected left great toe, has a history of anemia of chronic disease, asthma, diabetes, hypertension, hyperlipidemia, hypothyroidism, peripheral neuropathy, severe peripheral vascular disease among others present at the time with worsening infection of the left be great toe which apparently started 2 months prior to these and the patient on admission had reported noticing swelling and drainage from at. Days prior the patient had reported to have chills and fever as high as 102 with some diarrhea. Patient was admitted with diagnosis of osteomyelitis, she did have an elevated ESR and CRP, she has had a arterial duplex done in May of this year, an MRI had been order and she was started on antibiotics, Infectious Disease culture. It was also noted that she had an increase of her renal markers showing acute kidney injury on chronic kidney disease and started on gentle IV fluids, potassium was repleted, her calcium had been low and this was deemed to secondary hyper per parathyroidism, the patient had being seen by infectious disease as well as Nephrology. These last specialist, suggested the patient could have ATN versus acute glomerulonephritis and a workup was started, a gentle IV fluids with recommended and given the fact that she developed mental status changes and metabolic encephalopathy, preglabin was discontinued. The patient did have an MRI of the head which did not reveal any acute abnormalities with exception of a 1.4 cm meningioma on the left frontal lobe. The amputation of the left great toe was delayed due to her encephalopathy, given her significant mental status worsening it seems the patient might have aspirated and disease shown on a chest x-ray noted on the of this year. The patient was being treated with Zosyn. Overnight I was called to the floor for the patient had developed acute respiratory failure with hypoxia, this last improved with a Venturi mask however upon seeing the patient was admitted that the patient was becoming obtunded and could easily end up having respiratory arrest therefore the decision to transfer to the ICU for emergent intubation was made. Review [place] [address] with an H&H of 9.1 and 30.3 respectively, platelet count 402. ABG shows pH of 7.07 PO2 of 73, pCO2 27, bicarb of 8 with a base excess of -20. Sodium 142, potassium 5.2, chloride 115, carbon dioxide 7, anion gap 25, BUN 54, creatinine 3.93 (3.59); BNP 748, lactic acid 0.7. GEORGE immunology panel pending. COVID negative. ROS: Unable to obtain patient obtunded Past Medical History: As above Past Surgical History: Family history: Unknown Social History: Unknown living situation; healthcare proxies Mr Javi So [phone] CODE STATUS: Full code Allergies: Miguel inhibitors, cilostazol (cough) Home Medications: Please see [facility] rec Sepsis PHYSICAL EXAM done at 5:20 a.m.: VS: Blood pressure 102/45, heart rate 85, respirations 22, O2 sat 98% on a ventilator with the following settings: 22/400/8/100% ?General: Obtunded, minimally responsive, not following commands. process is coherent. ?Skin: Left great toe gangrene with drainage and discoloration. ?HEENT: Head is normocephalic, atraumatic, pupils equal round reactive to light accommodation bilaterally. Extraocular movements appear intact. Buccal mucosa is moist, Neck is supple without lymphadenopathy. ?Cardiac: Clear S1-S2, no murmurs rubs or gallops. ?Pulmonary: Coarse lung sounds bilaterally throughout with significant rhonchi of the right lung field, no crackles or wheezes. ?Abdomen: Protuberant, positive bowel sounds in all 4 quadrants. Soft, nontender, no rebound or guarding. ?Musculoskeletal: Moving all 4 extremities on her own, uncomfortable. No edema. No asymmetry of the legs. ?Neurologic: As above; no abuse deficits. ? Vascular: 2+ pulses upper extremities. Lower extremity pulses were not palpated by hand. SIGNIFICANT LABORATORY DATA: As above REVIEW OF IMAGES: Chest x-ray shows extensive multifocal airspace opacities worsened from 08/24/[address] without contrast IMPRESSION: Large bilateral groundglass other causes of pneumonia aspiration pneumonia, pulmonary edema and pulmonary hemorrhage. Small left pleural effusion. Enlarged mediastinal nodes. Head MRI no acute abnormalities, meningioma on the left frontal lobe. EKG REVIEW: Normal sinus rhythm with T-wave abnormalities in the inferior lateral leads, age undetermined changes. Ventricular rate 62 beats per minute. No comparison available. ASSESSMENT AND PLAN: 1. Acute respiratory failure with hypoxic state (? ARDS vs Pul Edema and PNA) 2. Metabolic encephalopathy multifactorial including medications (preglabin) 3. Acute sepsis due Aspiration pneumonia 4. Acute on chronic kidney injury perhaps due to ATN versus acute glomerulonephritis in the setting of her current infection 5. Normocytic anemia likely chronic 6. Thrombocytosis 7. 1.4 cm meningioma along the left frontal lobe without other acute abnormalities 8. Severe metabolic acidosis 9. Secondary hyperparathyroidism and hypocalcemia 10. Left great toe osteomyelitis with drainage and toe discoloration in need of amputation which has been placed on hold 11. Diabetes mellitus type 2 12. Hypothyroidism (chronic) current TSH level 2.51 Patient is critically ill, is in need of emergent intubation, she was transferred to ICU, endotracheal intubation under RSI protocol to place successfully, subsequently central line was placed. Patient will need to have her secretions aspirated which are very thick, after performing level age, culture was obtained. Patient is not getting 30 milligrams/kilogram of IV fluids due to risk of fluid overload. Will need an echo, repeat lactic acid, repeat blood cultures and obtain sputum culture and Gram stain. Continue IV antibiotics, bicarb drip, repeat labs and contact Nephrology. It does not appear to me that the patient has vascular congestion or that she is fluid overloaded. Insulin sliding scale q.6 hours . Will obtain Doppler pulses of the lower extremities. GI PROPHYLAXIS: IV ppi DVT PROPHYLAXIS: Heparin subQ Critical care time used for critical evaluation of this patient, diagnosis, treatment and coordination of care, review her records and documentation TOTAL CRITICAL CARE TIME 90 MIN . Patient's care was discussed in detail with Dr. Sweeney. He is aware of all the above as well as the plan of care for this patient. [facility] Past Medical History Medical History Anemia Asthma-COPD overlap syndrome Diabetes HTN (hypertension) Hypercholesteremia Hypothyroidism Neuropathy Family History Family history: reviewed and not pertinent Social History Social History Household Members: Other Housing: Apartment Do you presently have 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 or other home services: Yes Patient Tobacco Use Status: Former Tobacco user Use of substances other than those prescribed or required for medical reasons: No Currently Displaying Signs/Symptoms of Drug Intoxication Withdrawal: No Have you been hit, kicked, punched, or otherwise hurt by someone within the past year? If so, by whom?: No Do you feel safe in your current relationship?: No Current Relationship Is there a partner from a previous relationship who is making you feel unsafe now?: No Are you made to feel afraid or neglected: No Advance Directives: Yes Advance Directives Information Provided: Yes Advance Directives on File: No Advance Directives Date on File: 08/18/20 Do you have thoughts of harming others: None Do you have a plan to hurt others: No Plan Recently lost weight without trying: No Eating poorly because of decreased appetite: No Nutrition Risks: No Nutritional Risk service: No Current occupational status: disabled Meds Allergies Allergy/AdvReac Type Severity Reaction Status Date / Time MIGUEL Inhibitors Allergy Mild COUGH Verified 08/11/20 14:06 [MIGUEL INHIBITORS] cilostazol [CILOSTAZOL] Allergy Mild COUGH Verified 08/11/20 14:06 Active Medications: Current Medications Generic Name Dose Route Start Last Admin Trade Name Freq PRN Reason Stop Dose Admin Acetaminophen 650 mg 08/18/20 23:57 08/20/20 16:39 Acetaminophen 325 Mg Tablet PO 650 mg Q6H PRN Administration Pain, Mild (Pain Scale 1-3) Docusate Sodium 100 mg 08/18/20 23:57 Docusate Sodium 100 Mg Capsule PO DAILY PRN Constipation Heparin Sodium (Porcine) 5,000 unit 08/23/20 14:30 08/25/20 02:49 Heparin Sodium,Porcine 5,000 Unit/Ml Vial SUBCUT 5,000 unit Q12H JOEL Administration Sodium Chloride 1,000 mls @ 100 mls/hr 08/22/20 17:30 08/24/20 21:58 Ns IVCONT Infused .Q10H JOEL Infusion Piperacillin Sod/Tazobactam 50 mls @ 100 mls/hr 08/23/20 14:15 08/24/20 22:38 Sod 2.25 gm/ Sodium Chloride IV Infused Q8H JOEL Infusion Metoprolol Tartrate 5 mg/ 55 mls @ 220 mls/hr 08/24/20 16:00 08/25/20 04:09 Sodium Chloride IV Infused Q6H JOEL Infusion Insulin Human Lispro 0 unit 08/19/20 07:30 08/24/20 20:56 Insulin Lispro 100 Unit/Ml 3 Ml Vial SUBCUT 4 unit QIDACHS JOEL Administration Protocol Insulin Human Lispro 10 unit 08/19/20 11:30 08/24/20 16:49 Insulin Lispro 100 Unit/Ml 3 Ml Vial SUBCUT Not Given TIDAC [facility] Montelukast Sodium 10 mg 08/19/20 21:00 08/24/20 20:56 Montelukast Sodium 10 Mg Tablet PO Not Given BEDTIME [facility] Ondansetron HCl 4 mg 08/18/20 23:57 Ondansetron Hcl 4 Mg/2 Ml Vial IVPUSH Q8H PRN Nausea and Vomiting Pharmacy Consult 1 each 08/18/20 16:48 Consult Rx Vancomycin Dosing MISCELLANE DAILY PRN Consult order Pharmacy Consult 1 each 08/23/20 14:04 Consult Rx Antimicrob Dosing MISCELLANE DAILY PRN Consult order Sodium Chloride 3 ml 08/19/20 00:00 08/25/20 00:38 0.9 % Sodium Chloride Flush 3 Ml Syringe IVFLUSH 3 ml QSMNFT [facility] Administration Home Medications Medication Instructions Recorded Confirmed Last Taken Type amlodipine 1 tab PO QAM 05/17/20 08/19/20 08/17/20 08:30 History aspirin 1 tab PO QAM 05/17/20 08/19/20 08/17/20 08:30 History atorvastatin 1 tab PO BEDTIME 05/17/20 08/19/20 08/17/20 20:00 History cholecalciferol (vitamin D3) 1 cap PO QAM 05/17/20 08/19/20 08/17/20 08:30 History [Vitamin D3] cilostazol 100 mg PO BID@1200,2100 05/17/20 08/19/20 08/17/20 20:00 History clopidogrel 1 tab PO QAM 05/17/20 08/19/20 08/17/20 08:30 History ferrous sulfate 1 tab PO QAM 05/17/20 08/19/20 08/17/20 08:30 History insulin lispro [Humalog KwikPen 10 unit SUBCUT TIDAC 05/17/20 08/19/20 08/17/20 19:00 History Insulin] 40 units levothyroxine 1 tab PO QAM 05/17/20 08/19/20 08/18/20 20:30 History loratadine 1 tab PO QAM 05/17/20 08/19/20 08/18/20 20:30 History metoprolol tartrate 1 tab PO BID 05/17/20 08/19/20 08/17/20 20:00 History montelukast 1 tab PO BEDTIME 05/17/20 08/19/20 08/17/20 20:00 History pregabalin 1 cap PO BID 05/17/20 08/19/20 08/17/20 20:00 History venlafaxine 1 cap PO QAM 05/17/20 08/19/20 08/18/20 08:30 History Physical Exam Vital Signs: Vital Signs: Last Vital Signs Temp 98.6 F 08/25/20 03:46 Pulse 114 H 08/25/20 03:46 Resp 30 H 08/25/20 04:40 BP 132/66 08/25/20 03:46 Pulse Ox 92 08/25/20 03:46 Body Mass Index 32.0 Results Labs CBC & Chem 7: 08/25/20 04:46 08/25/20 20:16 Labs: Short CBC 08/24/20 08/25/20 Range/Units 09:51 04:46 WBC 17.6 H 23.6 H (4.8-10.8) X10*3/uL Hgb 9.1 L 9.1 L (12.0-16.0) g/dl Hct 29.4 L 30.3 L (37-47) % Plt Count 360 402 H (160-400) X10*3/uL BMP 08/24/20 08/25/20 08/25/20 04:42 04:46 04:46 Sodium 140 Cancelled 142 Potassium 4.5 Cancelled 5.2 H Chloride 113 H Cancelled 115 H Carbon Dioxide 13 L Cancelled 7 L* D BUN 46 H Cancelled 54 H Creatinine 3.59 H Cancelled 3.93 H Calcium 6.7 L Cancelled 6.5 L Microbiology Microbiology Results: Microbiology 08/18/20 16:15 Blood - Venous Blood Culture - Final No growth after 5 days. 08/18/20 16:15 Blood - Venous Blood Culture - Final No growth after 5 days.
[2020-08-25 07:17] LABS: Glucose, Whole Blood 268 mg/dL (60-115)
[2020-08-25] MEDS: Etomidate 20 MG/10 ML VIAL 30 MG IVPUSH (07:17)
[2020-08-25] MEDS: Succinylcholine Chloride 200 MG/10 ML VIAL 100 MG IVPUSH (07:18)
[2020-08-25] MEDS: Sodium Bicarbonate 8.4% 150 MEQ in Dextrose 5 % 850 ML 100 MEQ IV (07:20)
[2020-08-25 07:34] LABS: Lactic Acid 0.6 mmol/L (0.5-2.0)
[2020-08-25] MEDS: Piperacillin Sodium/Tazobactam 2.25 GM in 0.9 % Sodium Chloride 50 ML IV ×3 (07:46→21:39)
[2020-08-25] MEDS: Insulin Lispro 100 UNIT/ML 3 ML VIAL SUBCUT ×4 (07:52→21:39)
[2020-08-25 09:28] LABS: Magnesium 2.1 mg/dL (1.6-2.6); Phosphorus 6.8 mg/dL (2.7-4.5)
[2020-08-25] MEDS: Sodium Zirconium Cyclosilicate 10 GM POWD.PACK PO ×3 (11:18→21:38)
[2020-08-25 11:21] LABS: Glucose, Whole Blood 323 mg/dL (60-115)
--- NOTE | 2020-08-25 12:06 | PM.EVENT ---
Event Note Date of Service: 08/25/20 Event Note: I was as to see this patient for pulmonary consult. Since last night the patient has been transferred to ICU, intubated and is on vent support. Patient is being managed by the Critical Care team . So pulmonary consult was not completed at this time.
[2020-08-25] MEDS: Insulin Lispro 100 UNIT/ML 3 ML VIAL 10 UNIT SUBCUT ×2 (12:12→17:03)
--- NOTE | 2020-08-25 13:07 | PM.PNNEP ---
Subjective Subjective Date of Service: 08/25/20 Principal diagnosis: mary kate/ckd Interval history: Seen and exameind, events noted Resp and Hemodynamic cfrashed and now in ICU on vent/pressors Sepsis with aspiration Physical Exam Vital Signs: Vital Signs: Last Vital Signs Temp 97.7 F 08/25/20 08:46 Pulse 70 08/25/20 12:00 Resp 22 H 08/25/20 12:00 BP 119/60 08/25/20 12:00 Pulse Ox 95 08/25/20 12:00 Body Mass Index 32.0 on vent BS eddi RRR Abd soft edema HENMT: Head: Yes normal to inspection and Yes atraumatic Chest: Chest palpation & inspection: normal inspection of the chest Resp: Auscultation: no wheezes Cardio: Rate: regular rate Rhythm: regular rhythm Heart sounds: S1 normal heart sound present and S2 normal heart sound present Bruits: no carotid bruits Peripheral pulses: dorsalis pedis present (Bilateral DP signals) GI: Inspection: Yes normal to inspection Palpation (GI): Soft to palpation and nontender Auscultation: normal bowel sounds : General: Yes no CVA tenderness Back/Spine/Pelvis: Back: no CVA tenderness Skin: General skin exam: no rashes or lesions noted Wounds: wounds noted (Nonhealing left great toe) Hair: normal Neuro: Cranial nerves: Yes Normal hearing present Cognition (Neuro): normal cognition Motor exam (neuro): 5/5 motor strength present throughout Extrem: General: Yes normal to inspection, Yes full ROM, Yes no clubbing, cyanosis or edema, No clubbing, No cyanosis and No edema Psych: Appearance: grossly normal and well kempt Mental Status: mental status grossly normal Speech and movement: Normal speech and movement present Affect: normal affect Objective Data Labs CBC & Chem 7: 08/25/20 04:46 08/25/20 04:46 Labs: Laboratory Results - last 24 hr 08/24/20 08/24/20 08/24/20 13:15 16:08 16:16 WBC RBC Hgb Hct MCV MCH MCHC RDW Plt Count MPV Absolute Nucleated RBC Nucleated RBC % (auto) O2 Saturation ABG pH at Pt Temp ABG pCO2 at Pt Temp ABG pO2 at Pt Temp ABG HCO3 ABG Base Excess (Actual) Sodium Potassium Chloride Carbon Dioxide Anion Gap BUN Creatinine Estim Creat Clear Calc Estimated GFR POC Glucose 213 H Random Glucose Lactic Acid 0.7 Calcium Phosphorus Magnesium B-Natriuretic Peptide COVID-19 ([facility]IDA) Negative Plan B [employer] See Note 08/24/20 08/25/20 08/25/20 20:10 04:06 04:46 WBC 23.6 H RBC 3.32 L Hgb 9.1 L Hct 30.3 L MCV 91.3 MCH 27.4 MCHC 30.0 L RDW 15.3 Plt Count 402 H MPV 10.6 Absolute Nucleated RBC 0.040 H Nucleated RBC % (auto) 0.2 O2 Saturation ABG pH at Pt Temp ABG pCO2 at Pt Temp ABG pO2 at Pt Temp ABG HCO3 ABG Base Excess (Actual) Sodium Potassium Chloride Carbon Dioxide Anion Gap BUN Creatinine Estim Creat Clear Calc Estimated GFR POC Glucose 217 H 244 H Random Glucose Lactic Acid Calcium Phosphorus Magnesium B-Natriuretic Peptide COVID-19 (AIDA) [employer] 08/25/20 08/25/20 08/25/20 04:46 04:46 04:46 WBC RBC Hgb Hct MCV MCH MCHC RDW Plt Count MPV Absolute Nucleated RBC Nucleated RBC % (auto) O2 Saturation ABG pH at Pt Temp ABG pCO2 at Pt Temp ABG pO2 at Pt Temp ABG HCO3 ABG Base Excess (Actual) Sodium Cancelled 142 Potassium Cancelled 5.2 H Chloride Cancelled 115 H Carbon Dioxide Cancelled 7 L* D Anion Gap Cancelled 25 H BUN Cancelled 54 H Creatinine Cancelled 3.93 H Estim Creat Clear Calc Cancelled 12.7 Estimated GFR Cancelled 11 POC Glucose Random Glucose Cancelled 276 H D Lactic Acid Calcium Cancelled 6.5 L Phosphorus 6.8 H Magnesium 2.1 B-Natriuretic Peptide 748 H COVID-19 (AIDA) Plan B [employer] 08/25/20 08/25/20 08/25/20 04:50 07:11 07:12 WBC RBC Hgb Hct MCV MCH MCHC RDW Plt Count MPV Absolute Nucleated RBC Nucleated RBC % (auto) O2 Saturation 90.0 ABG pH at Pt Temp 7.07 L* ABG pCO2 at Pt Temp 27 L ABG pO2 at Pt Temp 73 L ABG HCO3 8 L ABG Base Excess (Actual) -20.2 Sodium Potassium Chloride Carbon Dioxide Anion Gap BUN Creatinine Estim Creat Clear Calc Estimated GFR POC Glucose 268 H Random Glucose Lactic Acid 0.6 Calcium Phosphorus Magnesium B-Natriuretic Peptide COVID-19 (AIDA) COVID-19 Clin Com 08/25/20 11:15 WBC RBC Hgb Hct MCV MCH MCHC RDW Plt Count MPV Absolute Nucleated RBC Nucleated RBC % (auto) O2 Saturation ABG pH at Pt Temp ABG pCO2 at Pt Temp ABG pO2 at Pt Temp ABG HCO3 ABG Base Excess (Actual) Sodium Potassium Chloride Carbon Dioxide Anion Gap BUN Creatinine Estim Creat Clear Calc Estimated GFR POC Glucose 323 H Random Glucose Lactic Acid Calcium Phosphorus Magnesium B-Natriuretic Peptide COVID-19 (AIDA) COVID-19 Clin Com Microbiology Microbiology Results: Microbiology 08/24/20 09:53 Blood - Venous Blood Culture - Preliminary No growth after 24 hours. 08/24/20 09:52 Blood - Venous Blood Culture - Preliminary No growth after 24 hours. 08/25/20 06:49 Sputum - Suctioned Gram Stain - Final 08/18/20 16:15 Blood - Venous Blood Culture - Final No growth after 5 days. 08/18/20 16:15 Blood - Venous Blood Culture - Final No growth after 5 days. Assessment & Plan Assessment and plan (1) MAYR KATE (acute kidney injury): Status: Acute Assessment and Plan: 1. 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 CKD 4: bsl SCr 2.0: most c/w DN/HTN renal dis 3. AMS: suspect med pregabapentin playing signif role 4. HypoCa: c/w 2ry Hyperparathyroidism 5. AGMA/NAGMA: lac negt; d/t MARY KATE/CKD vs diarrhea vs ketoens REC: Hdynamic support and HCO3 repalcement; check ketones; agree with d/c pregablin; may need HD support in next 24-48 hrs; may need kidney Bx at some point once [place] if MARY KATE cont worsen given decr C3/C4; check other sero as ordered; repalce HCO3 PO and IV; check ketones will follow perla with team Time Spent With Patient Time: Total time spent is greater than 50% in coordination of care (as documented) at patient's floor/unit and/or counseling patient: Procedures Date of Service Date of Service: 08/25/20
--- NOTE | 2020-08-25 13:16 | MHC.CM.PN ---
Patient transferred to ICU this morning. Currently intubated/vented. Original discharge plan was home with VNA and infusion therapy. Continue to monitor for d/c needs.
--- NOTE | 2020-08-25 14:05 | P.PNVS_ITS ---
Subjective Subjective Date of Service: 08/25/20 Interval history: Patient seen and examined. Events over the past day or to have been reviewed. She has been transferred to the ICU for respiratory distress. She is now intubated and sedated. Now for vascular follow-up. Physical Exam Vital Signs: Vital Signs: Last Vital Signs Temp 97.7 F 08/25/20 08:46 Pulse 66 08/25/20 13:00 Resp 22 H 08/25/20 13:00 BP 118/52 L 08/25/20 13:00 Pulse Ox 95 08/25/20 13:00 Body Mass Index 32.0 Const: General: cooperative, healthy appearing and no acute distress Orientation/consciousness: oriented to person, oriented to place and oriented to time HENMT: Head: Yes normal to inspection Neck: Carotids: no bruits Chest: Chest palpation & inspection: normal inspection of the chest Resp: Effort & Inspection: normal respiratory effort and able to speak in complete sentences Auscultation: clear to auscultation bilaterally Cardio: Rate: regular rate Heart sounds: S1 normal heart sound present and S2 normal heart sound present GI: Inspection: Yes normal to inspection Skin: General skin exam: no rashes or lesions noted Wounds: wounds noted (Left great toe gangrene) Neuro: General: oriented to person, oriented to place, oriented to time and CN's II-XI intact bilaterally Extrem: General: Yes normal to inspection, Yes full ROM and Yes no clubbing, cyanosis or edema Psych: Appearance: grossly normal and well kempt Speech and movement: Normal speech and movement present Affect: normal affect Progress Note: A&P Assessment and plan (1) Osteomyelitis of great toe of left foot: Status: Acute Assessment and Plan: In short patient has nonhealing left great toe. She has decompensated over the past few days, and is currently intubated and sedated. I do not believe that toe is a source of infection. Once her pulmonary status improves and resolves will address left great toe. We will closely monitor her status with you. Thank you for allowing us to assist in her care. If there are any questions or concerns please do not hesitate to contact us Fall Risk Details Current Medications: Current Medications Generic Name Dose Route Start Last Admin Trade Name Freq PRN Reason Stop Dose Admin Acetaminophen 650 mg 08/18/20 23:57 08/20/20 16:39 Acetaminophen 325 Mg Tablet PO 650 mg Q6H PRN Administration Pain, Mild (Pain Scale 1-3) Chlorhexidine Gluconate 15 ml 08/25/20 15:00 Chlorhexidine Gluc Oral Rinse 15 Ml Mouthwash BUCCAL TID JOEL Docusate Sodium 100 mg 08/18/20 23:57 Docusate Sodium 100 Mg Capsule PO DAILY PRN Constipation Heparin Sodium (Porcine) 5,000 unit 08/23/20 14:30 08/25/20 02:49 Heparin Sodium,Porcine 5,000 Unit/Ml Vial SUBCUT 5,000 unit Q12H JOEL Administration Sodium Chloride 1,000 mls @ 100 mls/hr 08/22/20 17:30 08/25/20 07:16 Ns IVCONT Not Given .Q10H JOEL Piperacillin Sod/Tazobactam 50 mls @ 100 mls/hr 08/23/20 14:15 08/25/20 08:16 Sod 2.25 gm/ Sodium Chloride IV Infused Q8H JOEL Infusion Metoprolol Tartrate 5 mg/ 55 mls @ 220 mls/hr 08/24/20 16:00 08/25/20 11:21 Sodium Chloride IV Not Given Q6H JOEL Propofol 1,000 mg in 100 mls @ 0 mls/hr 08/25/20 06:45 08/25/20 10:11 Diprivan IVCONT 30 mcg/kg/min .Q0M JOEL 13.39 mls/hr Administration Protocol Per Protocol Norepinephrine Bitartrate 8 mg in 250 mls @ 0 mls/hr 08/25/20 06:45 08/25/20 08:00 Levophed IVCONT 0 mcg/kg/min .Q0M JOEL 0 mls/hr Titration Protocol Per Protocol Sodium Bicarbonate 150 meq/ 1,000 mls @ 100 mls/hr 08/25/20 13:00 08/25/20 12:16 Sterile Water IV 100 mls/hr .Q10H JOEL Administration Insulin Human Lispro 0 unit 08/19/20 07:30 08/25/20 12:13 Insulin Lispro 100 Unit/Ml 3 Ml Vial SUBCUT 8 unit QIDACHS JOEL Administration Protocol Insulin Human Lispro 10 unit 08/19/20 11:30 08/25/20 12:12 Insulin Lispro 100 Unit/Ml 3 Ml Vial SUBCUT 10 unit TIDAC [facility] Administration Montelukast Sodium 10 mg 08/19/20 21:00 08/24/20 20:56 Montelukast Sodium 10 Mg Tablet PO Not Given BEDTIME [facility] Omeprazole 40 mg 08/25/20 13:30 Omeprazole 20 Mg/10 Ml Susp.Recon NG-TUBE DAILY [facility] Ondansetron HCl 4 mg 08/18/20 23:57 Ondansetron Hcl 4 Mg/2 Ml Vial IVPUSH Q8H PRN Nausea and Vomiting Pharmacy Consult 1 each 08/18/20 16:48 Consult Rx Vancomycin Dosing MISCELLANE DAILY PRN Consult order Pharmacy Consult 1 each 08/23/20 14:04 Consult Rx Antimicrob Dosing MISCELLANE DAILY PRN Consult order Sodium Chloride 3 ml 08/19/20 00:00 08/25/20 10:15 0.9 % Sodium Chloride Flush 3 Ml Syringe IVFLUSH 3 ml QSHIFT JOEL Administration Sodium Zirconium Cyclosilicate 10 gm 08/25/20 09:30 08/25/20 11:18 Sodium Zirconium Cyclosilicate 10 Gm Powd.Pack PO 08/26/20 21:01 10 gm TID JOEL Administration Time Spent With Patient Time: Total time spent is greater than 50% in coordination of care (as documented) at patient's floor/unit and/or counseling patient: Time with patient: 25 - 35 minutes Procedures Date of Service Date of Service: 08/25/20
[2020-08-25] MEDS: Chlorhexidine Gluc Oral Rinse 15 ML MOUTHWASH BUCCAL ×2 (14:32→21:38)
--- NOTE | 2020-08-25 14:34 | MHC.CLN ---
PT IS INTUBATED AND SEDATED RECOMMEND TF NEPRO AT MAX GOAL RATE 20CC/HR TO PROVIDE 864KCALS (1217KCALS WITH SEDATION; 22KCALS/KG BASED ON CMW), 39G PROTEIN, 349CC FREE WATER FROM FORMULA DISCUSSED CASE WITH MD DURING ROUNDS-MD REQUESTING TO HOLD FREE WATER FLUSHES AT THIS TIME MONITOR TOLERANCE, RESIDUALS AND LYTES START FORMULA AT 10CC/HR AND INCREASE BY 10CC Q 4HRS UNTIL MAX GOAL ACHIEVED DISCUSSED WITH NURSE SEE ALSO CLINICAL NUTRITION ASSESSMENT
[2020-08-25 16:43] LABS: Glucose, Whole Blood 294 mg/dL (60-115)
--- NOTE | 2020-08-25 19:13 | PC.NURSE ---
Spoke with Javi-son HCP and he stated that only updates can be given to him. Allowed pt's daughter -Sarah and other son to visit. Daughter Sarah became accusatory and threatening staff. Securit outside room, Sarah was asked to leave- Javi updated on situation, Nurse lead project manager notified also. VSS, Afebrile. Pt sedated on Propofol, opens eyes to voice, does not follow commands but moves extremities. FIO2 on vent titrated to 35%, pt tolerating. Scant inline secretions. U/o wnl, pulses found with doppler, SR on tele. Repo q2hr, bath given, family updated beside by RN and MD.
--- NOTE | 2020-08-25 20:03 | PM.CCPN ---
Subjective Subjective Date of Service: 08/25/20 Interval History: Mrs. García was transferred to ICU early this morning because of acute respiratory failure. The patient is a 65-year-old female with past medical history of diabetes, HTN, CKD (baseline creat about 1.9), neuropathy, severe PVD, anemia, asthma, HLD, and hypothyroidism. She was admitted on August 18 with worsening osteomyelitis of her left big toe and MARY KATE, w creat 2.3. Sat mid 90?s on room air. COVID-19 negative. She was put on vanco and cefepime, and hydrated. Her renal indices worsened progressively. She was scheduled for amputation on August 23, but that was deferred bec of onset of encephalopathy, most likely due to Lyrica being taken by the patient with worsening renal failure. Vanco was d/c?d bec no MRSA and cefepime changed to Zosyn bec of encephalopathy. Throughout all these days of hospitalization, the patient was breathing easy, with sats in the mid 90s on room air. For reasons not clear from a chart review, the patient had a chest x-ray on the morning of August 24 which showed diffuse bilateral infiltrates, despite the reported room air sat of 94-97%. CT chest showed large bilateral groundglass infiltrates felt to be inconsistent with COVID, more suggestive of aspiration pneumonia, pulmonary edema, or pulmonary hemorrhage. All thought 2? aspiration. Lactate normal. No Abx added. Continued on Zosyn. Early this morning, the patient developed respiratory distress and hypoxemia chest x-ray showed worsening bilateral infiltrates blood gas showed severe metabolic acidosis and hypoxemia. The patient was transferred to the ICU and immediately intubated in line. Post procedure chest x-ray shows severe bilateral airspace infiltrates, very consistent with COVID. However the patient has had two negative COVID NAAs, and furthermore is requiring only 35% FiO2, satting 97-99%. Laboratory data of note: BNP today was 748, compared to 117 two months ago. Sputum g stain drawn after intubation this morning shows 3+ polys with no organisms. ECHOCARDIOGRAM by me at the bedside. Image quality: Good. Findings: 1. At least moderate LVH. 2. Normal LV function with no regional wall motion abnormalities. EF at least 50-60%. 3. RV size difficult to assess but at least on the parasternal long-axis and subcostal views, RV size is normal and contractility is normal. 4. All 3 valves with normal architecture and no significant regurgitant jets on color Doppler. 5. Best Doppler view of the tricuspid valve was obtained in the subcostal plane. Trace TR, with continuous wave Doppler jet measuring 2.0 m/sec. Gradient 16mm. 6. IVC dilated 2.4 cm, with minimal insp collapse. CVP estimate 14mm. RVSP estimate 30mm. IMPRESSION: 1. Baseline diabetes, severe peripheral vascular disease, and chronic kidney disease. 2. Osteomyelitis of left great toe. Needs amputation. Continue Zosyn. 3. Progressive azotemia despite volume loading. Renal following. 4. Progressive encephalopathy. Almost certainly due to Lyrica being taken in the face of progressive renal failure. 5. The cause of her bilateral pulmonary infiltrates is unclear. One thing is certain however: If it was any kind of infectious process, her A-a gradient would be much, much, much worse. That rules out viral, COVID, or bacterial pneumonia. (If it was the latter, she?d be .) And if this was a gastric acid aspiration that caused infiltrates to this degree -- ie. diffuse ARDS -- it?s almost inconceivable that her A-a gradient would be this good. That would seem to leave primarily pulmonary edema as the main differential. So for now we?ve started her on a Lasix infusion. Otherwise usual supportive care. Discussed at length with the patient?s son (the HCP), Javi: Condition, treatment, and prognosis. Critical care time (including full chart rev and hosp course summary: 110 min. Critical Care Time (minutes): 110 Physical Exam Vital Signs: Vital Signs: Last Vital Signs Temp 94.8 F L 08/25/20 18:00 Pulse 60 08/25/20 18:54 Resp 26 H 08/25/20 18:54 BP 144/65 H 08/25/20 18:54 Pulse Ox 99 08/25/20 18:54 Body Mass Index 32.0 Objective Data Labs CBC & Chem 7: 08/25/20 04:46 08/25/20 20:16 Labs: Laboratory Results - last 24 hr 08/24/20 08/25/20 08/25/20 20:10 04:06 04:46 WBC 23.6 H RBC 3.32 L Hgb 9.1 L Hct 30.3 L MCV 91.3 MCH 27.4 MCHC 30.0 L RDW 15.3 Plt Count 402 H MPV 10.6 Absolute Nucleated RBC 0.040 H Nucleated RBC % (auto) 0.2 O2 Saturation ABG pH at Pt Temp ABG pCO2 at Pt Temp ABG pO2 at Pt Temp ABG HCO3 ABG Base Excess (Actual) Sodium Potassium Chloride Carbon Dioxide Anion Gap BUN Creatinine Estim Creat Clear Calc Estimated GFR POC Glucose 217 H 244 H Random Glucose Lactic Acid Calcium Phosphorus Magnesium B-Natriuretic Peptide 08/25/20 08/25/20 08/25/20 04:46 04:46 04:46 WBC RBC Hgb Hct MCV MCH MCHC RDW Plt Count MPV Absolute Nucleated RBC Nucleated RBC % (auto) O2 Saturation ABG pH at Pt Temp ABG pCO2 at Pt Temp ABG pO2 at Pt Temp ABG HCO3 ABG Base Excess (Actual) Sodium Cancelled 142 Potassium Cancelled 5.2 H Chloride Cancelled 115 H Carbon Dioxide Cancelled 7 L* D Anion Gap Cancelled 25 H BUN Cancelled 54 H Creatinine Cancelled 3.93 H Estim Creat Clear Calc Cancelled 12.7 Estimated GFR Cancelled 11 POC Glucose Random Glucose Cancelled 276 H D Lactic Acid Calcium Cancelled 6.5 L Phosphorus 6.8 H Magnesium 2.1 B-Natriuretic Peptide 748 H 08/25/20 08/25/20 08/25/20 04:50 07:11 07:12 WBC RBC Hgb Hct MCV MCH MCHC RDW Plt Count MPV Absolute Nucleated RBC Nucleated RBC % (auto) O2 Saturation 90.0 ABG pH at Pt Temp 7.07 L* ABG pCO2 at Pt Temp 27 L ABG pO2 at Pt Temp 73 L ABG HCO3 8 L ABG Base Excess (Actual) -20.2 Sodium Potassium Chloride Carbon Dioxide Anion Gap BUN Creatinine Estim Creat Clear Calc Estimated GFR POC Glucose 268 H Random Glucose Lactic Acid 0.6 Calcium Phosphorus Magnesium B-Natriuretic Peptide 08/25/20 08/25/20 11:15 16:22 WBC RBC Hgb Hct MCV MCH MCHC RDW Plt Count MPV Absolute Nucleated RBC Nucleated RBC % (auto) O2 Saturation ABG pH at Pt Temp ABG pCO2 at Pt Temp ABG pO2 at Pt Temp ABG HCO3 ABG Base Excess (Actual) Sodium Potassium Chloride Carbon Dioxide Anion Gap BUN Creatinine Estim Creat Clear Calc Estimated GFR POC Glucose 323 H 294 H Random Glucose Lactic Acid Calcium Phosphorus Magnesium B-Natriuretic Peptide Microbiology Microbiology Results: Microbiology 08/24/20 09:53 Blood - Venous Blood Culture - Preliminary No growth after 24 hours. 08/24/20 09:52 Blood - Venous Blood Culture - Preliminary No growth after 24 hours. 08/25/20 06:49 Sputum - Suctioned Gram Stain - Final 08/18/20 16:15 Blood - Venous Blood Culture - Final No growth after 5 days. 08/18/20 16:15 Blood - Venous Blood Culture - Final No growth after 5 days. Critical Care Time Critical Care Time (minutes): 120
[2020-08-25 20:25] LABS: Venous Blood Gas Refer to POC result
[2020-08-25 20:26] LABS: VBG Base Excess -3.3 mmol/L; VBG HCO3 21 mmol/L (22-26); VBG pCO2 38 mmHg; VBG pH 7.35 (7.32-7.43); VBG pO2 74 mmHg
[2020-08-25 20:55] LABS: Glucose, Whole Blood 260 mg/dL (60-115)
[2020-08-25 21:04] LABS: Blood Urea Nitrogen 64 mg/dL (9-16)
[2020-08-25 21:16] LABS: Anion Gap 17 (12-20); Calcium 5.9 mg/dL (8.4-10.2); Carbon Dioxide 22 mmol/L (22-29); Chloride 109 mmol/L (96-108); Creatinine Clr Calc Pharmacy 11.8; Estimated Glomerular Filt Rate 11; Glucose Random 292 mg/dL (60-115); Phosphorus 5.1 mg/dL (2.7-4.5); Potassium 3.5 mmol/L (3.3-5.1); Sodium 144 mmol/L (135-145)
[2020-08-25] MEDS: Montelukast Sodium 10 MG TABLET PO (21:39)
[2020-08-26] VITALS (32 sets, daily range): BP systolic 128–162; BP diastolic 50–69; PULSE 55–86; RESP 12–23; TEMP 36.2–37.1; O2SAT 92–99
--- NOTE | 2020-08-26 | ECG_ITS ---
Test Reason : R/O ACS Blood Pressure : / mmHG Vent. Rate : 078 BPM Atrial Rate : 000 BPM P-R Int : 000 ms QRS Dur : 082 ms QT Int : 448 ms P-R-T Axes : 000 055 205 degrees QTc Int : 510 ms Poor data quality Normal sinus rhythm Nonspecific ST and T wave abnormality Abnormal ECG When compared with ECG of 19-MAY-2020 09:30, Nonspecific T wave abnormality has replaced inverted T waves in Anterolateral leads Referred By: Neo Sweeney Electronically Signed By:ANTOINETTE ARNETT MD
[2020-08-26] MEDS: Bumetanide 1 MG/4 ML VIAL 2 MG IVPUSH (00:24)
[2020-08-26] MEDS: propofoL 1,000 MG/100 ML VIAL 13.39 MG IVCONT ×2 (00:24→05:39)
[2020-08-26] MEDS: Heparin Sodium,Porcine 5,000 UNIT/ML VIAL 5000 UNIT SUBCUT ×3 (04:14→15:25)
[2020-08-26 05:39] LABS: VBG Base Excess -2.9 mmol/L; VBG HCO3 20 mmol/L (22-26); VBG pCO2 32 mmHg; VBG pH 7.41 (7.32-7.43); VBG pO2 42 mmHg
[2020-08-26] MEDS: Piperacillin Sodium/Tazobactam 2.25 GM in 0.9 % Sodium Chloride 50 ML IV ×2 (05:39→14:18)
[2020-08-26 05:48] LABS: MANUAL DIFF FLAG NO
[2020-08-26 05:56] LABS: Basophils Percent Auto 0.2 % (0-2); Hematocrit 26.9 % (37-47); Hemoglobin 8.8 g/dl (12.0-16.0); Imm Gran Pct Auto 1.6 % (0.0-0.4); Lymphocytes Percent Auto 5.5 % (20-40); Mean Corpuscular HGB Conc 32.7 g/dl (31.0-35.0); Mean Corpuscular Hemoglobin 27.5 pg (27.0-33.0); Mean Corpuscular Volume 84.1 fL (80-98); Monocytes Absolute Auto 0.9 X10*3/uL (0.1-1.2); Monocytes Percent Auto 4.6 % (2-11); NRBC Pct Auto 0.2 /100WBC (0.0-0.2); Neutrophils Absolute Auto 16.2 X10*3/uL (2.0-8.3); Neutrophils Percent Auto 88.1 % (45-73); Platelet Count 387 X10*3/uL (160-400); Red Cell Distribution Width 14.8 % (11.0-16.0); White Blood Count 18.3 X10*3/uL (4.8-10.8)
[2020-08-26 06:13] LABS: Phosphorus 5.4 mg/dL (2.7-4.5)
[2020-08-26 06:21] LABS: Alanine Aminotransferase 11 U/L (0-31); Albumin Level 2.1 g/dL (3.5-5.0); Alkaline Phosphatase 149 U/L (39-117); Anion Gap 19 (12-20); Aspartate Amino Transferase 25 U/L (5-31); Bilirubin Total 0.3 mg/dL (0.0-1.0); Blood Urea Nitrogen 70 mg/dL (9-16); Calcium 5.7 mg/dL (8.4-10.2); Carbon Dioxide 24 mmol/L (22-29); Chloride 104 mmol/L (96-108); Creatinine Clr Calc Pharmacy 11.6; Estimated Glomerular Filt Rate 10; Glucose Random 347 mg/dL (60-115); Potassium 3.5 mmol/L (3.3-5.1); Sodium 143 mmol/L (135-145); Total Protein 5.8 g/dL (6.5-8.0)
[2020-08-26 07:51] LABS: Glucose, Whole Blood 324 mg/dL (60-115)
[2020-08-26 08:08] LABS: Venous Blood Gas Refer to POC result
[2020-08-26] MEDS: Chlorhexidine Gluc Oral Rinse 15 ML MOUTHWASH BUCCAL ×3 (08:20→21:35)
[2020-08-26] MEDS: Sodium Zirconium Cyclosilicate 10 GM POWD.PACK PO ×3 (08:21→21:36)
[2020-08-26] MEDS: 0.9 % Sodium Chloride Flush 3 ML SYRINGE IVFLUSH ×2 (08:21→14:59)
[2020-08-26] MEDS: Insulin Regular/NS 100 UNIT/100 ML PLAST..BAG IVCONT (08:22)
[2020-08-26 10:06] LABS: Glucose, Whole Blood 305 mg/dL (60-115)
[2020-08-26] MEDS: Bumetanide 1 MG/4 ML VIAL IV (10:14)
[2020-08-26] MEDS: Albumin Human 25 % 100 ML IV (10:14)
[2020-08-26] MEDS: Furosemide 200 MG in 0.9 % Sodium Chloride 80 ML IVCONT (10:15)
[2020-08-26] MEDS: Metoprolol Tartrate 5 MG in 0.9 % Sodium Chloride 50 ML 220 MG IV ×3 (10:16→21:35)
--- NOTE | 2020-08-26 11:33 | MHC.CLN ---
F/U RECOMMEND INCREASING TF NEPRO AT MAX GOAL RATE 30CC/HR TO PROVIDE 1296KCALS (1532KCALS WITH SEDATION; 28KCALS/KG BASED ON CMW), 58G PROTEIN (1.06G/KG BASED ON CMW), 523CC FREE WATER FROM FORMULA MD REQUESTING TO HOLD FREE WATER FLUSHES AT THIS TIME IF FREE WATER FLSUHES NEEDED; RECOMMEND 240CC H20 Q SHIFT (1243CC TOTAL WATER; 23CC/KG) MONITOR TOLERANCE, RESIDUALS AND LYTES FOLLOWING
--- NOTE | 2020-08-26 12:36 | PC.NURSE ---
Pt intubated/sedated, spontaneously awakens, follows commands, tracks with eyes, weak cough, no gag. ACVC rate 22, Vt 400ml, Ve 8-9L/min, PEEP 8, FiO2 28%, SaO2 95%, does not breath over vent. Lung ting sounds clear anteriorly. #7.5 ET tube, 25cm at the lip, scant thick white secretions through inline suctioning, minimal oropharyngeal suctioning. Pt NSR 80s, HTN SBP up to 160, on intermittent IV metoprolol infusions. On lasix drip at 10mghr putting out 100ml/hr. diabetic eschar ulcer to left big toe, open to air, dorsalis pedal pulses auscultated by doppler. 1+ pitting edema generalized. On nepro at 30ml/hr, no residuals, +BS, no BM.
--- NOTE | 2020-08-26 12:41 | PM.CCPN ---
Subjective Subjective Date of Service: 08/26/20 Interval History: Mrs. García was transferred to ICU early yesterday morning August 25 because of gross respiratory failure. The patient is a 65-year-old female with past medical history of diabetes, HTN, CKD (baseline creat about 1.9), neuropathy, severe PVD, anemia, asthma, HLD, and hypothyroidism. She was admitted on August 18 with worsening osteomyelitis of her left big toe and MARY KATE, w creat 2.3. Sat was mid 90?s on room air. COVID-19 negative. No CXR was done. She was put on vanco and cefepime, and hydrated. Her renal indices worsened progressively. She was scheduled for amputation on August 23, but that was deferred bec of onset of encephalopathy, most likely due to Lyrica being taken by the patient in the face of worsening renal failure. Vanco was d/c?d bec no MRSA was found; the cefepime changed to Zosyn bec of encephalopathy. Throughout all these days of hospitalization, the patient was breathing easy, with sats in the mid 90s on room air. For unclear reasons (no mention in the chart), the patient had a chest x-ray on the morning of August 24 which showed diffuse bilateral infiltrates, despite the reported room air sat of 94-97%. CT chest showed large bilateral groundglass infiltrates felt to be inconsistent with COVID, more suggestive of aspiration pneumonia, pulmonary edema, or pulmonary hemorrhage. Her clinicians thought it was 2? aspiration bec of her marked AMS. Lactate was normal, however, she was afebrile, not tachypneic, hypertensive as usual, and in no distress according to both the hospitalist and the business services analyst (who commented that the patient was ?healthy appearing?. No Abx were added. She was continued on Zosyn. Early yesterday morning (August 25), the patient developed respiratory distress and hypoxemia. Chest x-ray showed worsening bilateral infiltrates. Blood gas showed severe metabolic acidosis and hypoxemia. The patient was transferred to the ICU and immediately intubated and lined. Post procedure chest x-ray showed severe bilateral ARDS, very COVID-looking. However the patient had had two negative COVID NAAs, and furthermore was requiring only 35% FiO2 on the vent, Sat?ing 97-99%. Labs were notable for BNP 748, compared to 117 two months ago. Sputum Gram stain drawn after intubation showed 3+ polys but no organisms. In view of all the above, her pulmonary infiltrates were ascribed to pulmonary edema, and she was given Bumex. ECHOCARDIOGRAM by me at the bedside yesterday August 26. Image quality: Good. Findings: 1. At least moderate LVH. 2. Normal LV function with no regional wall motion abnormalities. EF at least 50-60%. 3. RV size difficult to assess but at least on the parasternal long-axis and subcostal views, RV size is normal and contractility is normal. 4. All 3 valves with normal architecture and no significant regurgitant jets on color Doppler. 5. Best Doppler view of the tricuspid valve was obtained in the subcostal plane. Trace TR, with continuous wave Doppler jet measuring 2.0 m/sec. Gradient 16mm. 6. IVC dilated 2.4 cm, with minimal insp collapse. CVP estimate 14mm. RVSP estimate 30mm. Current infusions: Propofol 20 mcg Lasix 10 mg/hour Insulin 8 units/hour Bicarb (3 amps/L) 100 cc/hour She responded to the Bumex overnight with only modest u/o. Therefore this morning she was started on a Lasix drip plus albumin infusions. This morning, she?s well sedated on just propofol at 20ug. She opens eyes to stimulation. Heart rate is 75, blood pressure 144/58. Breathing easy on the vent set at AC 12/360/28%/+5, with respiratory rate 20, Ve 6.5 L, ETCO2 41, and PIP of 23. CBG this morning showed 7.41/32/-3. She has been afebrile her entire hospital stay. 1 cm JVD. Chest has slight coarse crackles. RRR normal S1 and S2, with no murmur or gallops. The abdomen is benign. She has no more than 1+ central pitting edema. U/O running 60cc/hr LABORATORY DATA: As below. Notably white count is down to 18.3, BUN/creatinine 70/4.2 (was 64/4.2 yesterday), potassium is low, bicarb is 24 on the bicarb drip, POC in the 300s, calcium 5.7, albumin 2.1. IMAGING: CXR today show severe bilateral ARDS, unchanged from yesterday's film. IMPRESSION: 1. Baseline diabetes, severe peripheral vascular disease, and chronic kidney disease. 2. Osteomyelitis of left great toe. Needs amputation, which is elective according to Dr. Butler. Continue Zosyn. I will reconsult Dr. Gage. 3. Progressive azotemia despite volume loading. ECHO yesterday suggested that she was volume overloaded. Now on Lasix drip, but u/o is marginal, and renal indices continue to deteriorate. I?ll give 500 of Diuril. D/W Dr. Carbajal at length. ANCA and other biomarkers have been sent, to r/o pulmonary-renal syndromes. It looks like she will progress to dialysis. 4. Progressive encephalopathy. Almost certainly due to Lyrica being taken in the face of progressive renal failure. 5. ARDS with bilateral pulmonary infiltrates. The cause is unclear. One thing is certain however: If it was any kind of infectious process, her A-a gradient would be much, much, much worse. That rules out viral, COVID, or bacterial pneumonia. (And if it was the latter, she?d be .) And if this was ARDS due to a remote septic focus, or if it was a gastric acid aspiration that caused infiltrates to this degree -- ie. diffuse ARDS -- it?s inconceivable that her A-a gradient would be this good. That would seem to leave primarily pulmonary edema as the main differential, with pulmonary-renal syndromes secondary (altho I would think that ARDS from any inflammatory cause would cause much more hypoxemia). We?ll get a formal echo today. Might need to do right heart cath to make a dx[facility] (P[facility]) re DDX and diagnostic methods. Doubt bronch would be helpful. And she?s had no bloody secretions that would suggest pulmon hemorrhage. Examined and discussed at the bedside with Dr. Christopher. We await the echo. 6. Acute respiratory failure. Secondary to above. 7. Diabetes. Now on insulin drip. 8. Metabolic: On bicarb drip, which is controlling her potassium and renal metabolic acidosis. Replete calcium. Add free water to tube feeds to control rise of serum Na. 9. Nutrition: On full dose Nepro. Otherwise usual supportive care. Critical care time: 75+ min. Critical Care Time (minutes): 75 Physical Exam Vital Signs: Vital Signs: Last Vital Signs Temp 98.8 F 08/26/20 11:58 Pulse 71 08/26/20 11:58 Resp 22 H 08/26/20 11:58 BP 146/50 H 08/26/20 11:58 Pulse Ox 96 08/26/20 11:58 Body Mass Index 32.0 Objective Data Labs CBC & Chem 7: 08/26/20 05:35 08/26/20 05:35 Labs: Laboratory Results - last 24 hr 08/25/20 08/25/20 08/25/20 16:22 20:16 20:17 WBC RBC Hgb Hct MCV MCH MCHC RDW Plt Count MPV Immature Gran % (Auto) Neut % (Auto) Lymph % (Auto) Josephine % (Auto) Eos % (Auto) Baso % (Auto) Lymph # (Auto) Josephine # (Auto) Eos # (Auto) Baso # (Auto) Abs Immat Gran (auto) Absolute Neuts (auto) Absolute Nucleated RBC Nucleated RBC % (auto) VBG pH 7.35 VBG pCO2 38 VBG pO2 74 VBG HCO3 21 L VBG O2 Saturation 94.0 VBG Base Excess -3.3 Sodium 144 Potassium 3.5 D Chloride 109 H Carbon Dioxide 22 Anion Gap 17 BUN 64 H Creatinine 4.19 H* Estim Creat Clear Calc 11.8 Estimated GFR 11 POC Glucose 294 H Random Glucose 292 H Calcium 5.9 L* D Phosphorus 5.1 H Magnesium 2.0 Total Bilirubin AST ALT Alkaline Phosphatase Total Protein Albumin 08/25/20 08/26/20 08/26/20 20:52 05:32 05:35 WBC 18.3 H RBC 3.20 L Hgb 8.8 L Hct 26.9 L MCV 84.1 D MCH 27.5 MCHC 32.7 RDW 14.8 Plt Count 387 MPV 11.0 Immature Gran % (Auto) 1.6 H Neut % (Auto) 88.1 H Lymph % (Auto) 5.5 L Josephine % (Auto) 4.6 Eos % (Auto) 0.0 Baso % (Auto) 0.2 Lymph # (Auto) 1.0 L Josephine # (Auto) 0.9 Eos # (Auto) 0.0 Baso # (Auto) 0.0 Abs Immat Gran (auto) 0.30 H Absolute Neuts (auto) 16.2 H Absolute Nucleated RBC 0.040 H Nucleated RBC % (auto) 0.2 VBG pH 7.41 VBG pCO2 32 VBG pO2 42 VBG HCO3 20 L VBG O2 Saturation 75.0 VBG Base Excess -2.9 Sodium Potassium Chloride Carbon Dioxide Anion Gap BUN Creatinine Estim Creat Clear Calc Estimated GFR POC Glucose 260 H Random Glucose Calcium Phosphorus Magnesium Total Bilirubin AST ALT Alkaline Phosphatase Total Protein Albumin 08/26/20 08/26/20 08/26/20 05:35 05:35 07:48 WBC RBC Hgb Hct MCV MCH MCHC RDW Plt Count MPV Immature Gran % (Auto) Neut % (Auto) Lymph % (Auto) Josephine % (Auto) Eos % (Auto) Baso % (Auto) Lymph # (Auto) Josephine # (Auto) Eos # (Auto) Baso # (Auto) Abs Immat Gran (auto) Absolute Neuts (auto) Absolute Nucleated RBC Nucleated RBC % (auto) VBG pH VBG pCO2 VBG pO2 VBG HCO3 VBG O2 Saturation VBG Base Excess Sodium 143 Potassium 3.5 Chloride 104 Carbon Dioxide 24 Anion Gap 19 BUN 70 H Creatinine 4.25 H* Estim Creat Clear Calc 11.6 Estimated GFR 10 POC Glucose 324 H Random Glucose 347 H Calcium 5.7 L* Phosphorus 5.4 H Magnesium Total Bilirubin 0.3 AST 25 ALT 11 Alkaline Phosphatase 149 H D Total Protein 5.8 L Albumin 2.1 L 08/26/20 09:55 WBC RBC Hgb Hct MCV MCH MCHC RDW Plt Count MPV Immature Gran % (Auto) Neut % (Auto) Lymph % (Auto) Josephine % (Auto) Eos % (Auto) Baso % (Auto) Lymph # (Auto) Josephine # (Auto) Eos # (Auto) Baso # (Auto) Abs Immat Gran (auto) Absolute Neuts (auto) Absolute Nucleated RBC Nucleated RBC % (auto) VBG pH VBG pCO2 VBG pO2 VBG HCO3 VBG O2 Saturation VBG Base Excess Sodium Potassium Chloride Carbon Dioxide Anion Gap BUN Creatinine Estim Creat Clear Calc Estimated GFR POC Glucose 305 H Random Glucose Calcium Phosphorus Magnesium Total Bilirubin AST ALT Alkaline Phosphatase Total Protein Albumin Microbiology Microbiology Results: Microbiology 08/24/20 09:53 Blood - Venous Blood Culture - Preliminary No growth after 48 hours. 08/24/20 09:52 Blood - Venous Blood Culture - Preliminary No growth after 48 hours. 08/25/20 06:49 Sputum - Suctioned Gram Stain - Final 08/25/20 06:49 Sputum - Suctioned Sputum Culture - Preliminary 08/18/20 16:15 Blood - Venous Blood Culture - Final No growth after 5 days. 08/18/20 16:15 Blood - Venous Blood Culture - Final No growth after 5 days. Critical Care Time Critical Care Time (minutes): 90
[2020-08-26 13:02] LABS: Glucose, Whole Blood 302 mg/dL (60-115)
[2020-08-26 13:27] LABS: Myeloperoxidase Antibody <1.0 AI; Proteinase 3 PR3 Antibodies <1.0 AI
[2020-08-26] MEDS: Albumin Human 25 % 50 ML 100 ML IV ×2 (14:17→20:54)
--- NOTE | 2020-08-26 14:44 | MHC.CLN ---
F/U SPOKE WITH MD REGARDING CASE STARTING 120CC FREE WATER FLUSHES Q 6 HRS WILL PROVIDE 1003CC TOTAL WATER FROM FORMULA AND FLUSHES
[2020-08-26] MEDS: methylPREDNISolone Sod Succ 125 MG/2 ML VIAL 60 MG IVPUSH ×2 (14:59→20:13)
[2020-08-26] MEDS: Chlorothiazide Sodium 500 MG VIAL IVPUSH (14:59)
[2020-08-26] MEDS: Calcium Gluconate/NaCl,Iso-Osm 2 GM/100 ML PLAST..BAG IV (14:59)
--- NOTE | 2020-08-26 15:00 | CA_ITS ---
Transthoracic Echocardiogram Patient (Last, First, Middle): Sarah García, Gender: Female Date of : 1955 Age: 65 Procedure Date: 08/26/2020 Procedure Type: Transthoracic Echocardiogram Location: ICU Height: 152.4 cm Weight: 74.39 kg BSA: 1.72 m2 Heart Rate: bpm BP: 159 / 62 mmHg Varnish Mixer: Referring MD: Neo Sweeney MD Small Parts Assembler: Satinder Christopher MD Symptoms: fluid retention ? congestive heart failure Study Quality: Good ECG Rhythm: Sinus Conclusions: - 1. Normal LV systolic function with impaired relaxation filling pattern with elevated filling pressures 2. Mildly dilated left atrium 3. Mild mitral regurgitation 4. Elevated RV systolic pressure, 40 mm plus RA pressure 5. No gross pericardial effusion Findings Procedure Information Contrast agent, definity, is being given per protocol without apparent complications. Left Ventricle Normal left ventricular size, thickness, and systolic function. The visually estimated ejection fraction is between 60-65%. Spectral Doppler is indicative of an impaired relaxation filling pattern. Elevated filling pressures. E/E prime ratio is >15, consistent with elevated filling pressures. Right Ventricle Normal right ventricular cavity size and systolic function. Atria The left atrium is mildly dilated. There is no evidence of interatrial shunt. The right atrium is normal in size. Aortic Valve Normal aortic valve structure and function. There is no aortic valve stenosis. There is no aortic valve regurgitation. Mitral Valve Normal mitral valve structure and function. There is mild mitral valve regurgitation. There is no mitral valve stenosis. Pulmonic Valve The pulmonic valve is likely normal. There is trace pulmonic valve regurgitation. Tricuspid Valve Normal tricuspid valve structure. There is mild tricuspid valve regurgitation. RV systolic pressure is elevated, peak TR gradient calculated at 40 mm of mercury. Therefore RV systolic pressure is 40 mm + RA pressure Great Vessels All visible segments of the aorta are normal in size. The pulmonary artery was not well visualized. Venous The inferior vena cava does not collapse with inspiration. IVC is mildly dilated with no collapse, patient on positive-pressure ventilation. Pericardium/Pleural There is no evidence of pericardial effusion. Prior Study Comparison Changes noted compared to prior study dated: 07/11/2016. LV filling pressures appear to be elevated on this study. RV systolic pressure are also elevated. Measurements 2D Linear Measurements IVSd: 1.01 0.6-0.9/0.6-1.0 cm LVIDd: 5.06 3.9-5.3/4.2-5.9 cm LVIDd Index: 2.94 2.4-3.2/2.2-3.1 cm/m2 LVIDs: 3.77 2.0-3.6 cm LVPWd: 1.05 0.7-1.1 cm Ao Root: 2.90 2.1-3.5 cm LA Diam: 3.80 2.7-3.8/3.0-4.0 cm LAIDs Index: 2.21 1.5-2.3 cm/m2 LV Mass: 240.65 67-162/88-224 g LV Mass Index: 139.91 43-95/49-115 g/m2 LVOT Diam: 2.20 3.0+(-)1.3 cm Mitral Valve MV Pk E: 0.95 MV PK A: 1.11 MV Decel Time: 227.00 E/A: 0.90 E'Lateral: 5.22 E'Medial: 6.31 E/E' Med: 15.10 E/E' Lat: 18.20 PHT: 67.00 MVA PHT: 3.28 Decel [place]: 4.18 Aortic Valve AoV Pk Arthur: 1.62 AoV Mn Arthur: 1.03 AoV VTI: 0.42 AoV Pk Grad: 10.00 Aov Mn Grad: 5.00 KAM Cont.VTI: 2.15 LVOT LVOT Pk Arthur: 0.99 LVOT Mn Arthur: 0.60 LVOT VTI: 0.24 LVOT Pk Grad: 4.00 LVOT Mn Grad: 2.00 LVOT Diam: 2.20 LVOT Area: 3.80 Diastolic Function MV Pk E: 0.95 MV Pk A: 1.11 E/A: 0.90 E'Medial: 6.31 E/E' Med: 15.10 E' Laterial: 5.22 E/E' Lat: 18.20 Tricuspid Valve TR Pk Arthur: 2.91 TR Pk Grad: 40.00 Great Vessels Aorta Ao Root-2D: 2.90 2.0-3.7 cm Ao Asc: 3.40 2.1-3.4 cm Pulmonary Valve PV Pk Arthur: 1.15 Peak PV Grad: 5.00 Updated in Other Vendor System with Status of Final Satinder Christopher MD electronically signed on 08/26/2020 4:29:18 PM with status of Final
--- NOTE | 2020-08-26 15:04 | P.CONCA_ITS ---
History of Present Illness History of Present Illness Date of Service: 08/26/20 Requesting physician: Neo Sweeney Consult reason: other (Hypoxic respiratory failure with bilateral pulmonary infiltrates) Chief complaint: osteomyelitis Narrative: Heart was requested to see Iris in cardiology consultation today for respiratory failure with bilateral pulmonary infiltrate. She has hypoxic respiratory failure requiring 28% FiO2, maintaining oxygenation with mechanical ventilation. However chest x-ray shows persistent bilateral diffuse infiltr ates. Her BNP is elevated in the mid 700 range but patient has developed acute kidney failure with worsening creatinine up to 4.2 with metabolic acidosis. She was started on IV Lasix drip with tepid diuretic response. Patient was admitted with infected toe plan for vascular surgeon possible amputation, however subsequently developed progressive renal failure and then encephalopathy and subsequently developed hypoxic respiratory failure. Initial thought process was aspiration pneumonitis. Patient does have leukocytosis but without lactic acidosis. Complicated hospital course. There was no reported chest discomfort prior to respiratory failure. No EKGs been performed. No troponin. Patient does not have any prior history of coronary artery disease but has history of peripheral artery disease and there is likelihood of underlying coronary artery disease as well as renal artery stenosis. Her blood pressure is elevated. No significant cardiac arrhythmias. Review of Systems Review of Systems: Yes unobtainable due to endotracheal tube PMFSH Past Medical History Medical History Anemia Asthma-COPD overlap syndrome Diabetes HTN (hypertension) Hypercholesteremia Hypothyroidism Neuropathy Family History Family history: reviewed and not pertinent Social History Social History Household Members: Other Housing: Apartment Do you presently have 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 or other home services: Yes Patient Tobacco Use Status: Former Tobacco user Use of substances other than those prescribed or required for medical reasons: No Currently Displaying Signs/Symptoms of Drug Intoxication Withdrawal: No Have you been hit, kicked, punched, or otherwise hurt by someone within the past year? If so, by whom?: No Do you feel safe in your current relationship?: No Current Relationship Is there a partner from a previous relationship who is making you feel unsafe now?: No Are you made to feel afraid or neglected: No Advance Directives: Yes Advance Directives Information Provided: Yes Advance Directives on File: No Advance Directives Date on File: 08/18/20 Do you have thoughts of harming others: None Do you have a plan to hurt others: No Plan Recently lost weight without trying: No Eating poorly because of decreased appetite: No Nutrition Risks: No Nutritional Risk service: No Current occupational status: disabled Meds Allergies Allergy/AdvReac Type Severity Reaction Status Date / Time ALLYSSA Inhibitors Allergy Mild COUGH Verified 08/11/20 14:06 [ALLYSSA INHIBITORS] cilostazol [CILOSTAZOL] Allergy Mild COUGH Verified 08/11/20 14:06 Active Medications: Current Medications Generic Name Dose Route Start Last Admin Trade Name Freq PRN Reason Stop Dose Admin Chlorhexidine Gluconate 15 ml 08/25/20 15:00 08/26/20 14:18 Chlorhexidine Gluc Oral Rinse 15 Ml Mouthwash BUCCAL 15 ml TID JOEL Administration Heparin Sodium (Porcine) 5,000 unit 08/26/20 08:00 08/26/20 08:21 Heparin Sodium,Porcine 5,000 Unit/Ml Vial SUBCUT 5,000 unit Q8H JOEL Administration Piperacillin Sod/Tazobactam 50 mls @ 100 mls/hr 08/23/20 14:15 08/26/20 14:18 Sod 2.25 gm/ Sodium Chloride IV 100 mls/hr Q8H JOEL Administration Metoprolol Tartrate 5 mg/ 55 mls @ 220 mls/hr 08/24/20 16:00 08/26/20 11:05 Sodium Chloride IV Infused Q6H JOEL Infusion Propofol 1,000 mg in 100 mls @ 0 mls/hr 08/25/20 06:45 08/26/20 07:00 Diprivan IVCONT 20 mcg/kg/min .Q0M JOEL 8.93 mls/hr Titration Protocol Per Protocol Insulin Human Regular 100 unit in 100 mls @ 4 mls/hr 08/26/20 07:30 08/26/20 08:22 Myxredlin IVCONT 4 unit/hr .Q24H JOEL 4 mls/hr Administration 4 UNIT/HR Furosemide 200 mg/ Sodium 100 mls @ 5 mls/hr 08/26/20 09:30 08/26/20 10:15 Chloride IVCONT 10 mg/hr .Q20H JOEL 5 mls/hr Administration 10 MG/HR Albumin Human 50 mls @ 100 mls/hr 08/26/20 14:00 08/26/20 14:17 Kedbumin 25 % IV 08/27/20 08:29 100 mls/hr Q6H JOEL Administration Calcium Gluconate 2 gm in 100 mls @ 50 mls/hr 08/26/20 14:32 08/26/20 14:59 Calcium Gluconate IV 08/26/20 16:31 50 mls/hr ONCE ONE Administration Sodium Bicarbonate 150 meq/ 1,000 mls @ 100 mls/hr 08/26/20 15:00 Sterile Water IV .Q10H JOEL Methylprednisolone Sodium Succinate 60 mg 08/26/20 14:30 08/26/20 14:59 Methylprednisolone Sod Succ 125 Mg/2 Ml Vial IVPUSH 08/29/20 08:31 60 mg Q6H JOEL Administration Montelukast Sodium 10 mg 08/19/20 21:00 08/25/20 21:39 Montelukast Sodium 10 Mg Tablet PO 10 mg BEDTIME JOEL Administration Omeprazole 40 mg 08/25/20 13:30 08/26/20 08:20 Omeprazole 20 Mg/10 Ml Susp.Recon NG-TUBE 40 mg DAILY JOEL Administration Pharmacy Consult 1 each 08/23/20 14:04 Consult Rx Antimicrob Dosing MISCELLANE DAILY PRN Consult order Sodium Chloride 3 ml 08/19/20 00:00 08/26/20 14:59 0.9 % Sodium Chloride Flush 3 Ml Syringe IVFLUSH 3 ml QSHIFT JOEL Administration Sodium Zirconium Cyclosilicate 10 gm 08/25/20 09:30 08/26/20 14:18 Sodium Zirconium Cyclosilicate 10 Gm Powd.Pack PO 08/26/20 21:01 10 gm TID JOEL Administration Home Medications Medication Instructions Recorded Confirmed Last Taken Type amlodipine 1 tab PO QAM 05/17/20 08/19/20 08/17/20 08:30 History aspirin 1 tab PO QAM 05/17/20 08/19/20 08/17/20 08:30 History atorvastatin 1 tab PO BEDTIME 05/17/20 08/19/20 08/17/20 20:00 History cholecalciferol (vitamin D3) 1 cap PO QAM 05/17/20 08/19/20 08/17/20 08:30 History [Vitamin D3] cilostazol 100 mg PO BID@1200,2100 05/17/20 08/19/20 08/17/20 20:00 History clopidogrel 1 tab PO QAM 05/17/20 08/19/20 08/17/20 08:30 History ferrous sulfate 1 tab PO QAM 05/17/20 08/19/20 08/17/20 08:30 History insulin lispro [Humalog KwikPen 10 unit SUBCUT TIDAC 05/17/20 08/19/20 08/17/20 19:00 History Insulin] 40 units levothyroxine 1 tab PO QAM 05/17/20 08/19/20 08/18/20 20:30 History loratadine 1 tab PO QAM 05/17/20 08/19/20 08/18/20 20:30 History metoprolol tartrate 1 tab PO BID 05/17/20 08/19/20 08/17/20 20:00 History montelukast 1 tab PO BEDTIME 05/17/20 08/19/20 08/17/20 20:00 History pregabalin 1 cap PO BID 05/17/20 08/19/20 08/17/20 20:00 History venlafaxine 1 cap PO QAM 05/17/20 08/19/20 08/18/20 08:30 History Physical Exam Vital Signs: Vital Signs: Last Vital Signs Temp 98.8 F 08/26/20 11:58 Pulse 73 08/26/20 14:00 Resp 15 08/26/20 14:00 BP 144/58 H 08/26/20 14:00 Pulse Ox 95 08/26/20 14:00 Body Mass Index 32.0 Const: General: other (Patient intubated and sedated) Nutritional Appearance: overweight HENMT: Head: Yes normocephalic and Yes atraumatic Neck: Neck: Yes trachea midline, Yes supple and Yes other (Right IJ line) Resp: Effort & Inspection: normal respiratory effort Auscultation: no rales, no wheezes and other (Coarse breath sounds.) Cardio: Palpation: normal PMI Rate: regular rate Rhythm: regular rhythm Heart sounds: S1 normal heart sound present, S2 normal heart sound present and Murmur heart sound present systolic at the right sternal border GI: Auscultation: normal bowel sounds Skin: General skin exam: no rashes or lesions noted Extrem: General: Yes no clubbing, cyanosis or edema Results Labs and Meds Result diagrams: 08/26/20 05:35 08/26/20 05:35 Lab results: Laboratory Results - last 24 hr 08/25/20 08/25/20 08/25/20 04:46 16:22 20:16 WBC RBC Hgb Hct MCV MCH MCHC RDW Plt Count MPV Immature Gran % (Auto) Neut % (Auto) Lymph % (Auto) [place] % (Auto) Eos % (Auto) Baso % (Auto) Lymph # (Auto) [place] # (Auto) Eos # (Auto) Baso # (Auto) Abs Immat Gran (auto) Absolute Neuts (auto) Absolute Nucleated RBC Nucleated RBC % (auto) VBG pH VBG pCO2 VBG pO2 VBG HCO3 VBG O2 Saturation VBG Base Excess Sodium 144 Potassium 3.5 D Chloride 109 H Carbon Dioxide 22 Anion Gap 17 BUN 64 H Creatinine 4.19 H* Estim Creat Clear Calc 11.8 Estimated GFR 11 POC Glucose 294 H Random Glucose 292 H Calcium 5.9 L* D Phosphorus 5.1 H Magnesium 2.0 Total Bilirubin AST ALT Alkaline Phosphatase Total Protein Albumin Proteinase 3 (PR3) Ab <1.0 Myeloperoxidase Ab <1.0 08/25/20 08/25/20 08/26/20 20:17 20:52 05:32 WBC RBC Hgb Hct MCV MCH MCHC RDW Plt Count MPV Immature Gran % (Auto) Neut % (Auto) Lymph % (Auto) [place] % (Auto) Eos % (Auto) Baso % (Auto) Lymph # (Auto) [place] # (Auto) Eos # (Auto) Baso # (Auto) Abs Immat Gran (auto) Absolute Neuts (auto) Absolute Nucleated RBC Nucleated RBC % (auto) VBG pH 7.35 7.41 VBG pCO2 38 32 VBG pO2 74 42 VBG HCO3 21 L 20 L VBG O2 Saturation 94.0 75.0 VBG Base Excess -3.3 -2.9 Sodium Potassium Chloride Carbon Dioxide Anion Gap BUN Creatinine Estim Creat Clear Calc Estimated GFR POC Glucose 260 H Random Glucose Calcium Phosphorus Magnesium Total Bilirubin AST ALT Alkaline Phosphatase Total Protein Albumin Proteinase 3 (PR3) Ab Myeloperoxidase Ab 08/26/20 08/26/20 08/26/20 05:35 05:35 05:35 WBC 18.3 H RBC 3.20 L Hgb 8.8 L Hct 26.9 L MCV 84.1 D MCH 27.5 MCHC 32.7 RDW 14.8 Plt Count 387 MPV 11.0 Immature Gran % (Auto) 1.6 H Neut % (Auto) 88.1 H Lymph % (Auto) 5.5 L [place] % (Auto) 4.6 Eos % (Auto) 0.0 Baso % (Auto) 0.2 Lymph # (Auto) 1.0 L [place] # (Auto) 0.9 Eos # (Auto) 0.0 Baso # (Auto) 0.0 Abs Immat Gran (auto) 0.30 H Absolute Neuts (auto) 16.2 H Absolute Nucleated RBC 0.040 H Nucleated RBC % (auto) 0.2 VBG pH VBG pCO2 VBG pO2 VBG HCO3 VBG O2 Saturation VBG Base Excess Sodium 143 Potassium 3.5 Chloride 104 Carbon Dioxide 24 Anion Gap 19 BUN 70 H Creatinine 4.25 H* Estim Creat Clear Calc 11.6 Estimated GFR 10 POC Glucose Random Glucose 347 H Calcium 5.7 L* Phosphorus 5.4 H Magnesium Total Bilirubin 0.3 AST 25 ALT 11 Alkaline Phosphatase 149 H D Total Protein 5.8 L Albumin 2.1 L Proteinase 3 (PR3) Ab Myeloperoxidase Ab 08/26/20 08/26/20 08/26/20 07:48 09:55 12:58 WBC RBC Hgb Hct MCV MCH MCHC RDW Plt Count MPV Immature Gran % (Auto) Neut % (Auto) Lymph % (Auto) [place] % (Auto) Eos % (Auto) Baso % (Auto) Lymph # (Auto) [place] # (Auto) Eos # (Auto) Baso # (Auto) Abs Immat Gran (auto) Absolute Neuts (auto) Absolute Nucleated RBC Nucleated RBC % (auto) VBG pH VBG pCO2 VBG pO2 VBG HCO3 VBG O2 Saturation VBG Base Excess Sodium Potassium Chloride Carbon Dioxide Anion Gap BUN Creatinine Estim Creat Clear Calc Estimated GFR POC Glucose 324 H 305 H 302 H Random Glucose Calcium Phosphorus Magnesium Total Bilirubin AST ALT Alkaline Phosphatase Total Protein Albumin Proteinase 3 (PR3) Ab Myeloperoxidase Ab Imaging Radiologist's impression: Impressions Chest X-Ray 08/26/20 12:35 IMPRESSION: No signal change lateral airspace opacities. Stable right jugular central catheter and endotracheal tube. The enteric tube tip is in the stomach. There is another catheter seen in the left paramediastinal question external catheter or another esophageal tube. Correlate clinically. Assessment and Plan (1) Acute respiratory failure with hypoxemia: Status: Acute Acute hypoxic respiratory failure in elderly woman admitted with p eripheral vascular disease and subsequently developed encephalopathic picture with bilateral pulmonary diffuse ground-glass infiltrates requiring mechanical ventilation but not significant FiO2 requirements. Differential diagnosis could include cardiogenic pulmonary edema versus ARDS kind of picture in patient with aspiration pneumonitis. Patient only has had tepid response to diuretics. Has progressive renal failure. BNP elevation could be due to RV strain in setting of worsening renal function. Would obtain an EKG to rule out any significant acute myocardial ischemia and also obtain troponin and trend troponin to see if there is any evidence of acute myocardial injury. Bedside echocardiogram to assess LV systolic and diastolic function to help with assessment of filling pressures will be helpful for further guide to therapy. Diuretic response could be poor also due to worsening renal function. If clinical picture remains difficult to assess, should consider right heart catheterization to evaluate for LV filling pressures with obtaining pulmonary capillary wedge pressure. This was discussed with food and nutrition supervisor team. Utilize nitro paste for preload reduction and blood pressure control as well as hydralazine for afterload reduction blood pressure control. Will follow with you. Procedures Date of Service Date of Service: 08/26/20
[2020-08-26] MEDS: propofoL 1,000 MG/100 ML VIAL 8.93 MG IVCONT ×2 (15:49→23:47)
[2020-08-26 16:01] LABS: Glucose, Whole Blood 255 mg/dL (60-115)
--- NOTE | 2020-08-26 17:10 | P.PNNP_ITS ---
Subjective Subjective Date of Service: 08/26/20 Principal diagnosis: mary kate/ckd Interval history: Seen and examined. Events noted Case d/w Stremp Off pressors Physical Exam Vital Signs: Vital Signs: Last Vital Signs Temp 98.8 F 08/26/20 11:58 Pulse 74 08/26/20 16:00 Resp 20 08/26/20 16:00 BP 160/64 H 08/26/20 16:00 Pulse Ox 94 08/26/20 16:00 Body Mass Index 32.0 Const: General: cooperative, healthy appearing, comfortable and no acute distress Nutritional Appearance: overweight Orientation/consciousness: oriented to person, oriented to place, oriented to time and patient oriented x3 HENMT: Head: Yes normal to inspection and Yes atraumatic Mouth: Normal oral and palatal mucosa present Eyes: General: appearance normal, both eyes and all related structures Neck: Neck: Yes normal visual inspection Carotids: no bruits Chest: Chest palpation & inspection: normal inspection of the chest Resp: Effort & Inspection: normal respiratory effort and able to speak in complete sentences Auscultation: no wheezes Cardio: Palpation: normal PMI Rate: regular rate Rhythm: regular rhythm Heart sounds: S1 normal heart sound present and S2 normal heart sound present Bruits: no carotid bruits Peripheral pulses: dorsalis pedis present (Bilateral DP signals) GI: Inspection: Yes normal to inspection Palpation (GI): Soft to palpation and nontender Auscultation: normal bowel sounds : General: Yes no CVA tenderness Back/Spine/Pelvis: Back: no CVA tenderness Skin: General skin exam: no rashes or lesions noted Wounds: wounds noted (Nonhealing left great toe) Hair: normal Neuro: General: oriented to person, oriented to place, oriented to time, patient oriented x3 and CN's II-XI intact bilaterally Cranial nerves: Yes Normal hearing present Cognition (Neuro): normal cognition Motor exam (neuro): 5/5 motor strength present throughout Extrem: General: Yes normal to inspection, Yes full ROM, Yes no clubbing, cyanosis or edema, No clubbing, No cyanosis and No edema Psych: Appearance: grossly normal and well kempt Mental Status: mental status grossly normal Speech and movement: Normal speech and movement present Affect: normal affect Objective Data Labs CBC & Chem 7: 08/26/20 05:35 08/26/20 05:35 Labs: Laboratory Results - last 24 hr 08/25/20 08/25/20 08/25/20 04:46 20:16 20:17 WBC RBC Hgb Hct MCV MCH MCHC RDW Plt Count MPV Immature Gran % (Auto) Neut % (Auto) Lymph % (Auto) [place] % (Auto) Eos % (Auto) Baso % (Auto) Lymph # (Auto) [place] # (Auto) Eos # (Auto) Baso # (Auto) Abs Immat Gran (auto) Absolute Neuts (auto) Absolute Nucleated RBC Nucleated RBC % (auto) VBG pH 7.35 VBG pCO2 38 VBG pO2 74 VBG HCO3 21 L VBG O2 Saturation 94.0 VBG Base Excess -3.3 Sodium 144 Potassium 3.5 D Chloride 109 H Carbon Dioxide 22 Anion Gap 17 BUN 64 H Creatinine 4.19 H* Estim Creat Clear Calc 11.8 Estimated GFR 11 POC Glucose Random Glucose 292 H Calcium 5.9 L* D Phosphorus 5.1 H Magnesium 2.0 Total Bilirubin AST ALT Alkaline Phosphatase Total Protein Albumin Proteinase 3 (PR3) Ab <1.0 Myeloperoxidase Ab <1.0 08/25/20 08/26/20 08/26/20 20:52 05:32 05:35 WBC 18.3 H RBC 3.20 L Hgb 8.8 L Hct 26.9 L MCV 84.1 D MCH 27.5 MCHC 32.7 RDW 14.8 Plt Count 387 MPV 11.0 Immature Gran % (Auto) 1.6 H Neut % (Auto) 88.1 H Lymph % (Auto) 5.5 L [place] % (Auto) 4.6 Eos % (Auto) 0.0 Baso % (Auto) 0.2 Lymph # (Auto) 1.0 L [place] # (Auto) 0.9 Eos # (Auto) 0.0 Baso # (Auto) 0.0 Abs Immat Gran (auto) 0.30 H Absolute Neuts (auto) 16.2 H Absolute Nucleated RBC 0.040 H Nucleated RBC % (auto) 0.2 VBG pH 7.41 VBG pCO2 32 VBG pO2 42 VBG HCO3 20 L VBG O2 Saturation 75.0 VBG Base Excess -2.9 Sodium Potassium Chloride Carbon Dioxide Anion Gap BUN Creatinine Estim Creat Clear Calc Estimated GFR POC Glucose 260 H Random Glucose Calcium Phosphorus Magnesium Total Bilirubin AST ALT Alkaline Phosphatase Total Protein Albumin Proteinase 3 (PR3) Ab Myeloperoxidase Ab 08/26/20 08/26/20 08/26/20 05:35 05:35 07:48 WBC RBC Hgb Hct MCV MCH MCHC RDW Plt Count MPV Immature Gran % (Auto) Neut % (Auto) Lymph % (Auto) [place] % (Auto) Eos % (Auto) Baso % (Auto) Lymph # (Auto) [place] # (Auto) Eos # (Auto) Baso # (Auto) Abs Immat Gran (auto) Absolute Neuts (auto) Absolute Nucleated RBC Nucleated RBC % (auto) VBG pH VBG pCO2 VBG pO2 VBG HCO3 VBG O2 Saturation VBG Base Excess Sodium 143 Potassium 3.5 Chloride 104 Carbon Dioxide 24 Anion Gap 19 BUN 70 H Creatinine 4.25 H* Estim Creat Clear Calc 11.6 Estimated GFR 10 POC Glucose 324 H Random Glucose 347 H Calcium 5.7 L* Phosphorus 5.4 H Magnesium Total Bilirubin 0.3 AST 25 ALT 11 Alkaline Phosphatase 149 H D Total Protein 5.8 L Albumin 2.1 L Proteinase 3 (PR3) Ab Myeloperoxidase Ab 08/26/20 08/26/20 08/26/20 09:55 12:58 15:58 WBC RBC Hgb Hct MCV MCH MCHC RDW Plt Count MPV Immature Gran % (Auto) Neut % (Auto) Lymph % (Auto) [place] % (Auto) Eos % (Auto) Baso % (Auto) Lymph # (Auto) [place] # (Auto) Eos # (Auto) Baso # (Auto) Abs Immat Gran (auto) Absolute Neuts (auto) Absolute Nucleated RBC Nucleated RBC % (auto) VBG pH VBG pCO2 VBG pO2 VBG HCO3 VBG O2 Saturation VBG Base Excess Sodium Potassium Chloride Carbon Dioxide Anion Gap BUN Creatinine Estim Creat Clear Calc Estimated GFR POC Glucose 305 H 302 H 255 H Random Glucose Calcium Phosphorus Magnesium Total Bilirubin AST ALT Alkaline Phosphatase Total Protein Albumin Proteinase 3 (PR3) Ab Myeloperoxidase Ab Microbiology Microbiology Results: Microbiology 08/24/20 09:53 Blood - Venous Blood Culture - Preliminary No growth after 48 hours. 08/24/20 09:52 Blood - Venous Blood Culture - Preliminary No growth after 48 hours. 08/25/20 06:49 Sputum - Suctioned Gram Stain - Final 08/25/20 06:49 Sputum - Suctioned Sputum Culture - Preliminary 08/18/20 16:15 Blood - Venous Blood Culture - Final No growth after 5 days. 08/18/20 16:15 Blood - Venous Blood Culture - Final No growth after 5 days. Assessment & Plan Assessment and plan (1) MARY KATE (acute kidney injury): Status: Acute (2) Acute respiratory failure with hypoxemia: Status: Acute Assessment and Plan: 1. 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 CKD 4: bsl SCr 2.0: most c/w DN/HTN renal dis 3. AMS: suspect med pregabapentin playing signif role 4. HypoCa: decr CA further d/t decr alb 5. AGMA/NAGMA: resolved with IV NaHCO3 6. Impressive CXR abbnl and yet O2 requirements minimal --no A-a gradient; cosnider SWG to assess for CHF vs ARDS etc.. REC: anca and antigbm ( doubt pulm -renal vasculitis); trial of dishantel and pilar duncan as may need HD/UF in next 24-48 hrs osiris duncan with ICU team Will follow with you. Time Spent With Patient Time: Total time spent is greater than 50% in coordination of care (as documented) at patient's floor/unit and/or counseling patient: Procedures Date of Service Date of Service: 08/26/20
[2020-08-26 17:57] LABS: NT-proBNP 15600 pg/mL
[2020-08-26 19:25] LABS: Glucose, Whole Blood 191 mg/dL (60-115)
[2020-08-26] MEDS: cefTRIAXone sodium 1 GM in 0.9 % Sodium Chloride 50 ML IV (20:03)
[2020-08-26] MEDS: Insulin Regular/NS 100 UNIT/100 ML PLAST..BAG 6 UNIT IVCONT (20:15)
[2020-08-26] MEDS: Montelukast Sodium 10 MG TABLET PO (21:36)
[2020-08-26 22:30] LABS: Glucose, Whole Blood 169 mg/dL (60-115)
[2020-08-27] VITALS (35 sets, daily range): BP systolic 127–172; BP diastolic 48–76; PULSE 55–84; RESP 12–22; TEMP 36.2–37; O2SAT 28–99
[2020-08-27] MEDS: Heparin Sodium,Porcine 5,000 UNIT/ML VIAL 5000 UNIT SUBCUT ×3 (00:56→15:04)
[2020-08-27] MEDS: 0.9 % Sodium Chloride Flush 3 ML SYRINGE IVFLUSH ×3 (01:27→14:19)
[2020-08-27] MEDS: Furosemide 200 MG in 0.9 % Sodium Chloride 80 ML IVCONT ×2 (01:45→22:28)
[2020-08-27 02:04] LABS: Glucose, Whole Blood 168 mg/dL (60-115)
[2020-08-27] MEDS: methylPREDNISolone Sod Succ 125 MG/2 ML VIAL 60 MG IVPUSH ×3 (02:04→14:17)
[2020-08-27] MEDS: Albumin Human 25 % 50 ML 100 ML IV ×2 (02:05→08:39)
[2020-08-27] MEDS: Metoprolol Tartrate 5 MG in 0.9 % Sodium Chloride 50 ML 220 MG IV ×3 (03:50→22:13)
--- NOTE | 2020-08-27 05:09 | PC.NURSE ---
mostly somnolent. under the influences of propofol infusion for ventilatory management. pt will open eyes to voice. she will squeeze and release hands to command. complexion pale/sallow. skin warm/dry. left great toe is black discolored. feet cool to touch/foot pulses located by doppler. intubated and mechanically ventilated. breath sounds diminished/at times a few scattered rhonchi noted. suctioned via in-line for small to moderate amounts of clear loose phlegm. heart s1s2. ecg displays sr. sbp 130-170 mmhg. higher b/ps responsive to scheduled metoprolol. insulin drip adjusted per midlevel provider luis alberto perera. poc checked q 3-4 hours. abdomen large/semisoft/+bowel sounds. ogt placement confirmed over epigastrium with instilled volume of air. tolerating tube feedings nepro at 30ml/hr. [place] catheter patent and draining dilute pale yellow urine u/o 100-120 ml/hr. lasix drip at 20 mg/hr.
[2020-08-27 05:19] LABS: VBG HCO3 40 mmol/L (22-26); VBG pCO2 58 mmHg; VBG pH 7.44 (7.32-7.43); VBG pO2 54 mmHg
[2020-08-27 05:26] LABS: Basophils Percent Auto 0.1 % (0-2); Hematocrit 25.4 % (37-47); Hemoglobin 8.4 g/dl (12.0-16.0); Imm Gran Abs Auto 0.38 X10*3/uL (0.00-0.03); Imm Gran Pct Auto 2.4 % (0.0-0.4); Lymphocytes Absolute Auto 0.8 X10*3/uL (1.2-4.9); Lymphocytes Percent Auto 5.2 % (20-40); MANUAL DIFF FLAG SCAN; Mean Corpuscular HGB Conc 33.1 g/dl (31.0-35.0); Mean Corpuscular Hemoglobin 27.5 pg (27.0-33.0); Mean Platelet Volume 10.8 fL (9.4-12.3); Monocytes Absolute Auto 0.3 X10*3/uL (0.1-1.2); Monocytes Percent Auto 1.9 % (2-11); NRBC Pct Auto 0.1 /100WBC (0.0-0.2); Neutrophils Absolute Auto 14.3 X10*3/uL (2.0-8.3); Neutrophils Percent Auto 90.4 % (45-73); Platelet Count 336 X10*3/uL (160-400); Red Blood Count 3.06 X10*6/uL (4.20-5.50); Red Cell Distribution Width 14.6 % (11.0-16.0); SCAN SMEAR FLAG 1; White Blood Count 15.8 X10*3/uL (4.8-10.8)
[2020-08-27 05:30] LABS: Venous Blood Gas Refer to POC result
[2020-08-27 05:31] LABS: INTERNATIONAL NORM RATIO 1.2 (0.9-1.1)
[2020-08-27] MEDS: propofoL 1,000 MG/100 ML VIAL 13.39 MG IVCONT ×2 (05:33→12:51)
[2020-08-27 05:52] LABS: SLIDE REVIEW VERIFIED
[2020-08-27 06:03] LABS: Glucose, Whole Blood 157 mg/dL (60-115)
[2020-08-27 06:08] LABS: Alanine Aminotransferase 13 U/L (0-31); Albumin Level 2.8 g/dL (3.5-5.0); Alkaline Phosphatase 106 U/L (39-117); Anion Gap 22 (12-20); Aspartate Amino Transferase 19 U/L (5-31); Bilirubin Total 0.3 mg/dL (0.0-1.0); Blood Urea Nitrogen 71 mg/dL (9-16); C Reactive Protein 21.74 mg/dL (< or = 0.50); Calcium 5.8 mg/dL (8.4-10.2); Carbon Dioxide 30 mmol/L (22-29); Chloride 96 mmol/L (96-108); Creatinine Clr Calc Pharmacy 11.5; Estimated Glomerular Filt Rate 10; Glucose Random 174 mg/dL (60-115); Phosphorus 4.8 mg/dL (2.7-4.5); Potassium 2.7 mmol/L (3.3-5.1); Sodium 145 mmol/L (135-145); Total Protein 6.2 g/dL (6.5-8.0)
[2020-08-27] MEDS: Chlorhexidine Gluc Oral Rinse 15 ML MOUTHWASH BUCCAL ×3 (08:38→20:59)
[2020-08-27 09:55] LABS: Glucose, Whole Blood 177 mg/dL (60-115)
--- NOTE | 2020-08-27 10:08 | PC.NURSE ---
Pt intubated/sedated on propofol at 20mcg/kg/min, RASS -2. Pt opens eyes to voice and tracks with eyes, squeezes hand on command, ROCHA, positive cough, weak gag, pupils 4mm PERRLA. #7.5 ET tube 25cm at the lip, cuff pressure 30, ACVC rate 12 breathing over vent 14br/min intermittently stacking breaths, FiO2 28% PEEP 8, Vt 360, Ve 7.1L/min, SaO2 96%, ETCO2 40-48, inspiratory rhonchi all lung lobes, small amt thick white inline secretions. BUN/Creat trending up 71/4.32, serum K+ 2.7, Bicarb drip off at 0600 VBG pH 7.44, MD aware, K+ should correct as pH becomes more acidic. Refraining from K+ replacement 2/2 elevated BUN/Cr. In NSR/SBRAD 50-70, increased PVC and PAC, BP 145/55, 1+ sacral edema, 1+ RLE edema, 2+ LLE edema. On lasix drip at 10mg/hr U/O 75-120ml/hr, 24hr cumm +2.3 Liter (1.8L urine out), urine pale yellow. On insulin drip at 4u/hr most recent POC glucose 177 mg/dL, per MD recheck in 4hrs. Pt has 3cm superior to inferior coccyx slit, minimal depth, barrier cream applied, frequent repositioning. Left great toe eschar present open to air diabetic ulcer, dorsalis pedis pulse palpated faint. Nepro at 30ml/hr, no residuals, no BM, passing flatus. Bed locked and in lowest position, semi fowlers. HCP Javi updated.
[2020-08-27 12:29] LABS: VBG Base Excess 12.6 mmol/L; VBG HCO3 38 mmol/L (22-26); VBG pCO2 53 mmHg; VBG pH 7.46 (7.32-7.43); VBG pO2 47 mmHg
[2020-08-27 12:48] LABS: Venous Blood Gas Refer to POC result
[2020-08-27 13:57] LABS: Glucose, Whole Blood 185 mg/dL (60-115)
--- NOTE | 2020-08-27 13:59 | P.PNCC_ITS ---
Subjective Subjective Date of Service: 08/27/20 Interval History: Mrs. García was transferred to ICU August 25 because of gross respiratory failure. The patient is a 65-year-old female with past medical history of diabetes, HTN, CKD (baseline creat about 1.9), neuropathy, severe PVD, anemia, asthma, HLD, and hypothyroidism. She was admitted to the hospital on August 18 with worsening osteomyelitis of her left big toe and MARY KATE, w creat 2.3. Sat was mid 90?s on room air. COVID-19 negative. No CXR was done. She was put on vanco and cefepime and hydrated. Her renal indices worsened progressively. She was scheduled for amputation on August 23, but that was deferred bec of onset of encephalopathy, most likely due to Lyrica being taken by the patient in the face of worsening renal function. Vanco was d/c?d bec no MRSA was found; the cefepime was changed to Zosyn bec of encephalopathy. Throughout all this hospitalization, the patient was breathing easy, with sats in the mid 90s on room air according to the chart notes. For unclear reasons (no mention in the chart), the patient had a chest x-ray on the morning of August 24 which showed diffuse bilateral infiltrates, despite the reported room air sat of 94-97% at that time. F/U CT chest the same day (again, no mention why) showed large bilateral groundglass infiltrates felt to be inconsistent with COVID, more suggestive of aspiration pneumonia, pulmonary edema, or pulmonary hemorrhage. Because of her altered MS, her clinicians thought the infiltrates were 2? aspiration. Lactate was normal, however, and she was afebrile, not tachypneic, hypertensive as usual, and in no distress according to both the hospitalist and the molecular biology professor (who commented that the patient was ?healthy appearing?). No Abx were added. She was continued on Zosyn for her toe. Early the morning of August 25, the patient developed respiratory distress and hypoxemia. Chest x-ray showed worsening bilateral infiltrates. Blood gas henrique wed severe metabolic acidosis and hypoxemia. The patient was transferred to the ICU and immediately intubated and lined. Post procedure chest x-ray showed severe bilateral ARDS, very COVID-looking. However the patient had had two negative COVID NAAs, and furthermore was requiring only 35% FiO2 on the vent, Sat?ing 97-99%. Labs were notable for BNP 748, compared to 117 two months ago. Sputum Gram stain drawn after intubation showed 3+ polys but no organisms. In view of all the above, her pulmonary infiltrates were ascribed to pulmonary edema, and she was given Bumex. ECHOCARDIOGRAM by me at the bedside August 26. Findings: 1. At least moderate LVH. 2. Normal LV function with no regional wall motion abnormalities. EF at least 50-60%. 3. RV size difficult to assess but at least on the parasternal long-axis and subcostal views, RV size is normal and contractility is normal. 4. All 3 valves with normal architecture and no significant regurgitant jets on color Doppler. 5. Best Doppler view of the tricuspid valve was obtained in the subcostal plane. Trace TR, with continuous wave Doppler jet measuring 2.0 m/sec. Gradient 16mm. 6. IVC dilated 2.4 cm, with minimal insp collapse. CVP estimate 14mm. RVSP estimate 30mm. Yesterday we started her on a Lasix infusion and Diuril. Avg u/o > 100cc/hr. In consultation with pulmonary, I also started her on Solumedrol 60 mg q6hr, and switched the antibiotics for her toe to ceftriaxone. Current infusions: Propofol 30 mcg Lasix 10 mg/hour Insulin 8 units/hour Bicarb infusion was stopped early this morning This morning she?s lightly sedated on just propofol at 30ug. She opens eyes to stimulation. Heart rate 72, SR. BP169/71. Breathing easy on the vent set at AC 12/360/28%/+5, with respiratory rate 17, Sat 96%. CBG this morning showed 7.46/53/+12 on the bicarb drip. She has been afebrile her entire hospital stay. No JVD. Chest has a few coarse crackles. Normal exp phase. RRR normal S1 and S2, with no murmur or gallops. The abdomen is benign. She has 1+ central pitting edema. LABORATORY DATA: As below. Notably, WBC is down to 15.8, sodium 145, potassium 2.7, bicarb 30, BUN/creatinine up slightly to 71/4.3, phosphorus down to 4.8, calcium 5.8, POC running 150-170 on the insulin drip. IMAGING: CXR today show severe bilateral ARDS/pulmon edema, but slightly improved from yest film. We changed her vent over to PSV. On PSV 5/28%/+5, Vt was > 400cc, Ve 6-7L/min, Sat high 90?s. We turned the propfol off and she extubated without incident. Clear airway. She?s appropriately responsive and interactive, albeit a bit sluggish. Breathing easy with Sat 95% on 2L NC. IMPRESSION: 1. Baseline diabetes, severe peripheral vascular disease, and chronic kidney disease. 2. Osteomyelitis of left great toe. Needs amputation, which is elective according to Dr. Butler. Continue ceftriaxone in hospital. Needs 6 weeks of abx according to Dr. Gage. 3. Progressive azotemia despite volume loading. ECHO suggested that she was volume overloaded. Now on Lasix drip, with decent u/o. Renal indices appear to be cresting. I?ll give 500 of Diuril again today. ANCA and other biomarkers have been sent, to r/o pulmonary-renal syndromes. I?m hopeful that we?ll avoid dialysis. 4. Progressive encephalopathy. Almost certainly due to Lyrica being taken in the face of progressive renal failure. She looks good now. 5. Bilateral pulmonary infiltrates. Most likely cause was pulmonary edema. It?s a certainty that if it was any kind of infectious process, her A-a gradient would have been much, much, much worse. That rules out viral, COVID, or bacterial pneumonia. And if this was ARDS due to a remote septic focus, or if it was a gastric acid aspiration that caused infiltrates to this degree -- ie. diffuse ARDS -- it?s inconceivable that her A-a gradient would have been so small. Pulmonary-renal syndromes are secondary possibilities (altho I would think that ARDS from any inflammatory cause would cause much more hypoxemia). We started her on a 3-day course of Solumedrol yesterday. I?ll do a quick taper on that. 6. Acute respiratory failure. Secondary to above. 7. Diabetes. Now on insulin drip. 8. Metabolic: Bicarb drip helped control her potassium and renal metabolic acidosis. Now have to replete her potassium and calcium. We?ll have to add free water tomorrow. 9. Nutrition: Tube feeds d/c?d when we pulled her ETT. Otherwise usual supportive care. Spoke with entire family at length in conference today, and we talked about her condition, treatment, and prognosis. I showed them CXRs. Critical care time (include mult visits to bedside): 90 min. Critical Care Time (minutes): 90 Physical Exam Vital Signs: Vital Signs: Last Vital Signs Temp 98.6 F 08/27/20 12:00 Pulse 72 08/27/20 13:00 Resp 14 08/27/20 13:00 BP 169/71 H 08/27/20 13:00 Pulse Ox 96 08/27/20 13:00 Body Mass Index 32.0 Objective Data Labs CBC & Chem 7: 08/27/20 05:03 08/27/20 05:03 Labs: Laboratory Results - last 24 hr 08/25/20 08/26/20 08/26/20 04:46 15:58 19:21 WBC RBC Hgb Hct MCV MCH MCHC RDW Plt Count MPV Immature Gran % (Auto) Neut % (Auto) Lymph % (Auto) [place] % (Auto) Eos % (Auto) Baso % (Auto) Lymph # (Auto) [place] # (Auto) Eos # (Auto) Baso # (Auto) Abs Immat Gran (auto) Absolute Neuts (auto) Absolute Nucleated RBC Nucleated RBC % (auto) Smear Tech's Comments PT INR VBG pH VBG pCO2 VBG pO2 VBG HCO3 VBG O2 Saturation VBG Base Excess Sodium Potassium Chloride Carbon Dioxide Anion Gap BUN Creatinine Estim Creat Clear Calc Estimated GFR POC Glucose 255 H 191 H Random Glucose Calcium Phosphorus Total Bilirubin AST ALT Alkaline Phosphatase C-Reactive Protein NT-Pro-B Natriuret Pep 15532 H Total Protein Albumin 08/26/20 08/27/20 08/27/20 22:26 02:01 05:03 WBC RBC Hgb Hct MCV MCH MCHC RDW Plt Count MPV Immature Gran % (Auto) Neut % (Auto) Lymph % (Auto) [place] % (Auto) Eos % (Auto) Baso % (Auto) Lymph # (Auto) [place] # (Auto) Eos # (Auto) Baso # (Auto) Abs Immat Gran (auto) Absolute Neuts (auto) Absolute Nucleated RBC Nucleated RBC % (auto) Smear Tech's Comments PT 14.0 H INR 1.2 H VBG pH VBG pCO2 VBG pO2 VBG HCO3 VBG O2 Saturation VBG Base Excess Sodium Potassium Chloride Carbon Dioxide Anion Gap BUN Creatinine Estim Creat Clear Calc Estimated GFR POC Glucose 169 H 168 H Random Glucose Calcium Phosphorus Total Bilirubin AST ALT Alkaline Phosphatase C-Reactive Protein NT-Pro-B Natriuret Pep Total Protein Albumin 08/27/20 08/27/20 08/27/20 05:03 05:03 05:11 WBC 15.8 H RBC 3.06 L Hgb 8.4 L Hct 25.4 L MCV 83.0 MCH 27.5 MCHC 33.1 RDW 14.6 Plt Count 336 MPV 10.8 Immature Gran % (Auto) 2.4 H Neut % (Auto) 90.4 H Lymph % (Auto) 5.2 L [place] % (Auto) 1.9 L Eos % (Auto) 0.0 Baso % (Auto) 0.1 Lymph # (Auto) 0.8 L [place] # (Auto) 0.3 Eos # (Auto) 0.0 Baso # (Auto) 0.0 Abs Immat Gran (auto) 0.38 H Absolute Neuts (auto) 14.3 H Absolute Nucleated RBC 0.020 H Nucleated RBC % (auto) 0.1 Smear Tech's Comments VERIFIED PT INR VBG pH 7.44 H VBG pCO2 58 VBG pO2 54 VBG HCO3 40 H VBG O2 Saturation 84.0 VBG Base Excess 14.0 Sodium 145 Potassium 2.7 L D Chloride 96 Carbon Dioxide 30 H Anion Gap 22 H BUN 71 H Creatinine 4.32 H* Estim Creat Clear Calc 11.5 Estimated GFR 10 POC Glucose Random Glucose 174 H D Calcium 5.8 L* Phosphorus 4.8 H Total Bilirubin 0.3 AST 19 ALT 13 Alkaline Phosphatase 106 D C-Reactive Protein 21.74 H NT-Pro-B Natriuret Pep Total Protein 6.2 L Albumin 2.8 L D 08/27/20 08/27/20 08/27/20 06:01 09:51 12:21 WBC RBC Hgb Hct MCV MCH MCHC RDW Plt Count MPV Immature Gran % (Auto) Neut % (Auto) Lymph % (Auto) [place] % (Auto) Eos % (Auto) Baso % (Auto) Lymph # (Auto) [place] # (Auto) Eos # (Auto) Baso # (Auto) Abs Immat Gran (auto) Absolute Neuts (auto) Absolute Nucleated RBC Nucleated RBC % (auto) Smear Tech's Comments PT INR VBG pH 7.46 H VBG pCO2 53 VBG pO2 47 VBG HCO3 38 H VBG O2 Saturation 76.0 VBG Base Excess 12.6 Sodium Potassium Chloride Carbon Dioxide Anion Gap BUN Creatinine Estim Creat Clear Calc Estimated GFR POC Glucose 157 H 177 H Random Glucose Calcium Phosphorus Total Bilirubin AST ALT Alkaline Phosphatase C-Reactive Protein NT-Pro-B Natriuret Pep Total Protein Albumin 08/27/20 13:53 WBC RBC Hgb Hct MCV MCH MCHC RDW Plt Count MPV Immature Gran % (Auto) Neut % (Auto) Lymph % (Auto) [place] % (Auto) Eos % (Auto) Baso % (Auto) Lymph # (Auto) [place] # (Auto) Eos # (Auto) Baso # (Auto) Abs Immat Gran (auto) Absolute Neuts (auto) Absolute Nucleated RBC Nucleated RBC % (auto) Smear Tech's Comments PT INR VBG pH VBG pCO2 VBG pO2 VBG HCO3 VBG O2 Saturation VBG Base Excess Sodium Potassium Chloride Carbon Dioxide Anion Gap BUN Creatinine Estim Creat Clear Calc Estimated GFR POC Glucose 185 H Random Glucose Calcium Phosphorus Total Bilirubin AST ALT Alkaline Phosphatase C-Reactive Protein NT-Pro-B Natriuret Pep Total Protein Albumin Microbiology Microbiology Results: Microbiology 08/25/20 06:49 Sputum - Suctioned Gram Stain - Final 08/25/20 06:49 Sputum - Suctioned Sputum Culture - Final 08/24/20 09:53 Blood - Venous Blood Culture - Preliminary No growth after 48 hours. 08/24/20 09:52 Blood - Venous Blood Culture - Preliminary No growth after 48 hours. 08/18/20 16:15 Blood - Venous Blood Culture - Final No growth after 5 days. 08/18/20 16:15 Blood - Venous Blood Culture - Final No growth after 5 days. Critical Care Time Critical Care Time (minutes): 90
[2020-08-27] MEDS: Calcium Gluconate/NaCl,Iso-Osm 2 GM/100 ML PLAST..BAG IV ×2 (14:18→23:12)
[2020-08-27] MEDS: hydrALAZINE HCl 20 MG/ML VIAL 10 MG IVPUSH (14:18)
[2020-08-27] MEDS: Potassium Chloride/H20 40 MEQ/100 ML PIGGYBACK 50 MEQ IV (15:18)
--- NOTE | 2020-08-27 15:41 | PM.PNCARD ---
Subjective Subjective Date of Service: 08/27/20 Principal diagnosis: arley/[email or web address] Interval history: Patient overall still positive balance despite IV Lasix drip due to multiple IV fluids. Respiratory status is improving with plan for extubation today. Chest x-ray shows marginally improved bilateral fluffy infiltrates. Blood pressure remains elevated.Creatinine is further increased to 4.32. Potassium is at 2.7. Remains significantly anemic Review of Systems Review of Systems Yes unobtainable due to endotracheal tube Physical Exam Vital Signs: Last Vital Signs Temp 98.6 F 08/27/20 12:00 Pulse 80 08/27/20 15:04 Resp 16 08/27/20 15:00 BP 168/68 H 08/27/20 15:04 Pulse Ox 92 08/27/20 15:00 Body Mass Index 32.0 Const General: awake Nutritional Appearance: overweight Neck Neck: Yes trachea midline, Yes supple and Yes no JVD Resp Effort & Inspection: normal respiratory effort Auscultation: no rales and diminished lung sounds Cardio Palpation: normal PMI Rate: regular rate Rhythm: regular rhythm Heart sounds: S1 normal heart sound present and S2 normal heart sound present GI Auscultation: normal bowel sounds Neuro General: moves all extremities Extrem General: Yes no clubbing, cyanosis or edema Results Labs and Meds Result diagrams: 08/27/20 05:03 08/27/20 05:03 Lab results: Laboratory Results - last 24 hr 08/25/20 08/26/20 08/26/20 04:46 15:58 19:21 WBC RBC Hgb Hct MCV MCH MCHC RDW Plt Count MPV Immature Gran % (Auto) Neut % (Auto) Lymph % (Auto) [place] % (Auto) Eos % (Auto) Baso % (Auto) Lymph # (Auto) [place] # (Auto) Eos # (Auto) Baso # (Auto) Abs Immat Gran (auto) Absolute Neuts (auto) Absolute Nucleated RBC Nucleated RBC % (auto) Smear Tech's Comments PT INR VBG pH VBG pCO2 VBG pO2 VBG HCO3 VBG O2 Saturation VBG Base Excess Sodium Potassium Chloride Carbon Dioxide Anion Gap BUN Creatinine Estim Creat Clear Calc Estimated GFR POC Glucose 255 H 191 H Random Glucose Calcium Phosphorus Total Bilirubin AST ALT Alkaline Phosphatase C-Reactive Protein NT-Pro-B Natriuret Pep 37981 H Total Protein Albumin 08/26/20 08/27/20 08/27/20 22:26 02:01 05:03 WBC RBC Hgb Hct MCV MCH MCHC RDW Plt Count MPV Immature Gran % (Auto) Neut % (Auto) Lymph % (Auto) [place] % (Auto) Eos % (Auto) Baso % (Auto) Lymph # (Auto) [place] # (Auto) Eos # (Auto) Baso # (Auto) Abs Immat Gran (auto) Absolute Neuts (auto) Absolute Nucleated RBC Nucleated RBC % (auto) Smear Tech's Comments PT 14.0 H INR 1.2 H VBG pH VBG pCO2 VBG pO2 VBG HCO3 VBG O2 Saturation VBG Base Excess Sodium Potassium Chloride Carbon Dioxide Anion Gap BUN Creatinine Estim Creat Clear Calc Estimated GFR POC Glucose 169 H 168 H Random Glucose Calcium Phosphorus Total Bilirubin AST ALT Alkaline Phosphatase C-Reactive Protein NT-Pro-B Natriuret Pep Total Protein Albumin 08/27/20 08/27/20 08/27/20 05:03 05:03 05:11 WBC 15.8 H RBC 3.06 L Hgb 8.4 L Hct 25.4 L MCV 83.0 MCH 27.5 MCHC 33.1 RDW 14.6 Plt Count 336 MPV 10.8 Immature Gran % (Auto) 2.4 H Neut % (Auto) 90.4 H Lymph % (Auto) 5.2 L [place] % (Auto) 1.9 L Eos % (Auto) 0.0 Baso % (Auto) 0.1 Lymph # (Auto) 0.8 L [place] # (Auto) 0.3 Eos # (Auto) 0.0 Baso # (Auto) 0.0 Abs Immat Gran (auto) 0.38 H Absolute Neuts (auto) 14.3 H Absolute Nucleated RBC 0.020 H Nucleated RBC % (auto) 0.1 Smear Tech's Comments VERIFIED PT INR VBG pH 7.44 H VBG pCO2 58 VBG pO2 54 VBG HCO3 40 H VBG O2 Saturation 84.0 VBG Base Excess 14.0 Sodium 145 Potassium 2.7 L D Chloride 96 Carbon Dioxide 30 H Anion Gap 22 H BUN 71 H Creatinine 4.32 H* Estim Creat Clear Calc 11.5 Estimated GFR 10 POC Glucose Random Glucose 174 H D Calcium 5.8 L* Phosphorus 4.8 H Total Bilirubin 0.3 AST 19 ALT 13 Alkaline Phosphatase 106 D C-Reactive Protein 21.74 H NT-Pro-B Natriuret Pep Total Protein 6.2 L Albumin 2.8 L D 08/27/20 08/27/20 08/27/20 06:01 09:51 12:21 WBC RBC Hgb Hct MCV MCH MCHC RDW Plt Count MPV Immature Gran % (Auto) Neut % (Auto) Lymph % (Auto) [place] % (Auto) Eos % (Auto) Baso % (Auto) Lymph # (Auto) [place] # (Auto) Eos # (Auto) Baso # (Auto) Abs Immat Gran (auto) Absolute Neuts (auto) Absolute Nucleated RBC Nucleated RBC % (auto) Smear Tech's Comments PT INR VBG pH 7.46 H VBG pCO2 53 VBG pO2 47 VBG HCO3 38 H VBG O2 Saturation 76.0 VBG Base Excess 12.6 Sodium Potassium Chloride Carbon Dioxide Anion Gap BUN Creatinine Estim Creat Clear Calc Estimated GFR POC Glucose 157 H 177 H Random Glucose Calcium Phosphorus Total Bilirubin AST ALT Alkaline Phosphatase C-Reactive Protein NT-Pro-B Natriuret Pep Total Protein Albumin 08/27/20 13:53 WBC RBC Hgb Hct MCV MCH MCHC RDW Plt Count MPV Immature Gran % (Auto) Neut % (Auto) Lymph % (Auto) [place] % (Auto) Eos % (Auto) Baso % (Auto) Lymph # (Auto) [place] # (Auto) Eos # (Auto) Baso # (Auto) Abs Immat Gran (auto) Absolute Neuts (auto) Absolute Nucleated RBC Nucleated RBC % (auto) Smear Tech's Comments PT INR VBG pH VBG pCO2 VBG pO2 VBG HCO3 VBG O2 Saturation VBG Base Excess Sodium Potassium Chloride Carbon Dioxide Anion Gap BUN Creatinine Estim Creat Clear Calc Estimated GFR POC Glucose 185 H Random Glucose Calcium Phosphorus Total Bilirubin AST ALT Alkaline Phosphatase C-Reactive Protein NT-Pro-B Natriuret Pep Total Protein Albumin Imaging Radiologist's impression: Impressions Chest X-Ray 08/27/20 13:22 IMPRESSION: Evidence of interval improved aeration seen bilaterally since the prior study dated 08/26/2020. The tip of the endotracheal tube is located 2.2 cm above the level of the isidro. Progress Note: A&P Assessment and plan (1) Acute respiratory failure with hypoxemia: Status: Acute Assessment and Plan: Acute hypoxemic respiratory failure which is improving and plan for extubation today despite positive balance and persistent bilateral pulmonary infiltrates. Her IV sodium bicarbonate has been withheld his acidosis has improved. Echocardiogram shows normal LV systolic function with impaired relaxation but elevated LV filling pressures. Her creatinine is further increased. Still unclear whether she has significant cardiogenic component to her bilateral pulmonary infiltrates and edema like pattern. However continue IV Lasix therapy. Continue to monitor his intake and output chart and continue to monitor BMP and BNP. Continue supportive care. If clinical picture worsen should consider right heart catheterization. Will follow the patient Fall Risk Details Current Medications: Current Medications Generic Name Dose Route Start Last Admin Trade Name Freq PRN Reason Stop Dose Admin Chlorhexidine Gluconate 15 ml 08/25/20 15:00 08/27/20 14:18 Chlorhexidine Gluc Oral Rinse 15 Ml Mouthwash BUCCAL 15 ml TID JOEL Administration Heparin Sodium (Porcine) 5,000 unit 08/26/20 08:00 08/27/20 15:04 Heparin Sodium,Porcine 5,000 Unit/Ml Vial SUBCUT 5,000 unit Q8H JOEL Administration Metoprolol Tartrate 5 mg/ 55 mls @ 220 mls/hr 08/24/20 16:00 08/27/20 15:04 Sodium Chloride IV 220 mls/hr Q6H JOEL Administration Propofol 1,000 mg in 100 mls @ 0 mls/hr 08/25/20 06:45 08/27/20 13:57 Diprivan IVCONT Infused .Q0M JOEL Titration Protocol Per Protocol Insulin Human Regular 100 unit in 100 mls @ 4 mls/hr 08/26/20 07:30 08/27/20 14:07 Myxredlin IVCONT 5 unit/hr .Q24H JOEL 5 mls/hr Infusion 4 UNIT/HR Furosemide 200 mg/ Sodium 100 mls @ 5 mls/hr 08/26/20 09:30 08/27/20 01:45 Chloride IVCONT 10 mg/hr .Q20H JOEL 5 mls/hr Administration 10 MG/HR Ceftriaxone Sodium 1 gm/ 50 mls @ 100 mls/hr 08/26/20 20:00 08/26/20 23:05 Sodium Chloride IV Infused Q24H JOEL Infusion Calcium Gluconate 2 gm in 100 mls @ 50 mls/hr 08/27/20 13:45 08/27/20 14:18 Calcium Gluconate IV 08/27/20 15:44 50 mls/hr ONCE ONE Administration Potassium Chloride 40 meq in 100 mls @ 50 mls/hr 08/27/20 15:06 08/27/20 15:18 IV 08/27/20 17:05 50 mls/hr ONCE ONE Administration Methylprednisolone Sodium Succinate 60 mg 08/26/20 14:30 08/27/20 14:17 Methylprednisolone Sod Succ 125 Mg/2 Ml Vial IVPUSH 08/29/20 08:31 60 mg Q6H JOEL Administration Montelukast Sodium 10 mg 08/19/20 21:00 08/26/20 21:36 Montelukast Sodium 10 Mg Tablet PO 10 mg BEDTIME JOEL Administration Omeprazole 40 mg 08/25/20 13:30 08/27/20 08:39 Omeprazole 20 Mg/10 Ml Susp.Recon NG-TUBE 40 mg DAILY JOEL Administration Pharmacy Consult 1 each 08/23/20 14:04 Consult Rx Antimicrob Dosing MISCELLANE DAILY PRN Consult order Sodium Chloride 3 ml 08/19/20 00:00 08/27/20 14:19 0.9 % Sodium Chloride Flush 3 Ml Syringe IVFLUSH 3 ml QSHIFT JOEL Administration Time Spent With Patient Time: Total time spent is greater than 50% in coordination of care (as documented) at patient's floor/unit and/or counseling patient: Time with patient: 15 - 24 minutes Procedures Date of Service Date of Service: 08/27/20
[2020-08-27] MEDS: Insulin Regular/NS 100 UNIT/100 ML PLAST..BAG IVCONT (15:52)
[2020-08-27] MEDS: HYDROmorphone HCl 0.5 MG/0.5 ML SYRINGE IVPUSH ×2 (16:09→20:48)
--- NOTE | 2020-08-27 16:12 | PM.EVENT ---
Event Note Date of Service: 08/27/20 Event Note: I have reviewed notes and labs and course over the past 25 hrs remains barely nonoliguric but no absolute indication for dialysis Will see pt again in am
[2020-08-27 18:18] LABS: Glucose, Whole Blood 160 mg/dL (60-115)
[2020-08-27] MEDS: Chlorothiazide Sodium 500 MG VIAL IVPUSH (18:39)
[2020-08-27] MEDS: cefTRIAXone sodium 1 GM in 0.9 % Sodium Chloride 50 ML IV (20:48)
[2020-08-27 21:38] LABS: Anion Gap 17 (12-20); Blood Urea Nitrogen 77 mg/dL (9-16); Carbon Dioxide 35 mmol/L (22-29); Chloride 95 mmol/L (96-108); Creatinine Clr Calc Pharmacy 10.7; Estimated Glomerular Filt Rate 9; Glucose Random 174 mg/dL (60-115); Sodium 144 mmol/L (135-145)
[2020-08-27] MEDS: Potassium Chloride/H20 20 MEQ/100 ML PIGGYBACK 100 MEQ IV (22:33)
[2020-08-28] VITALS (28 sets, daily range): BP systolic 122–184; BP diastolic 53–99; PULSE 63–83; RESP 10–23; TEMP 36.4–36.7; O2SAT 90–96
[2020-08-28] MEDS: HYDROmorphone HCl 0.5 MG/0.5 ML SYRINGE IVPUSH ×2 (00:39→19:38)
[2020-08-28] MEDS: Heparin Sodium,Porcine 5,000 UNIT/ML VIAL 5000 UNIT SUBCUT ×4 (00:39→23:59)
[2020-08-28 00:54] LABS: Glucose, Whole Blood 167 mg/dL (60-115)
[2020-08-28] MEDS: 0.9 % Sodium Chloride Flush 3 ML SYRINGE IVFLUSH ×4 (01:50→23:59)
[2020-08-28] MEDS: methylPREDNISolone Sod Succ 125 MG/2 ML VIAL 60 MG IVPUSH (01:55)
[2020-08-28] MEDS: Metoprolol Tartrate 5 MG in 0.9 % Sodium Chloride 50 ML 220 MG IV ×2 (04:03→09:22)
[2020-08-28 05:15] LABS: VBG Base Excess 13.8 mmol/L; VBG HCO3 40 mmol/L (22-26); VBG pCO2 63 mmHg; VBG pH 7.41 (7.32-7.43); VBG pO2 44 mmHg
--- NOTE | 2020-08-28 05:28 | PC.NURSE ---
resting in short naps. watching tv. speaking in full sentences. forgetful in regard to hospitalization events. gann with weakness but purposefully. left great toe black and necrotic in appearance. supplemental o2 2lpm via prongs. resp effort shallow and regular. breath sounds cta/diminished. pt has loose nonproductive cough. there are concerns over pt swallowing effectively. pt has diminished gag reflex and is unable to bring secretions forward in her mouth. posteriororopharynx suctioned on several occasions with removal of thick white yellow tinged phelgm. pt has been kept npo. ecg displays sr. sbp 140-160s mmhg. scheduled iv metoprolol given. abdomen obese/semisoft with bowel sounds. passing flatus. no bm. please note on insulin drip at 2ux/hr. poc done q3-4 and reported to per provider. insulin drip adjusted per provider. [place] catheter patent and draining dilute yellow urine. u/o 75-150 ml/hr.
[2020-08-28 05:34] LABS: Venous Blood Gas Refer to POC result
[2020-08-28 05:59] LABS: Hematocrit 28.6 % (37-47); Hemoglobin 9.1 g/dl (12.0-16.0); Mean Corpuscular HGB Conc 31.8 g/dl (31.0-35.0); Mean Corpuscular Hemoglobin 26.9 pg (27.0-33.0); Mean Corpuscular Volume 84.6 fL (80-98); Mean Platelet Volume 10.8 fL (9.4-12.3); NRBC Pct Auto 0.1 /100WBC (0.0-0.2); Platelet Count 341 X10*3/uL (160-400); Red Blood Count 3.38 X10*6/uL (4.20-5.50); Red Cell Distribution Width 14.6 % (11.0-16.0); White Blood Count 17.6 X10*3/uL (4.8-10.8)
[2020-08-28 06:05] LABS: B Type Natriuretic Peptide 1529 pg/mL (<100)
[2020-08-28 06:06] LABS: Albumin Level 2.9 g/dL (3.5-5.0); Anion Gap 18 (12-20); Blood Urea Nitrogen 84 mg/dL (9-16); Calcium 6.2 mg/dL (8.4-10.2); Carbon Dioxide 34 mmol/L (22-29); Chloride 96 mmol/L (96-108); Creatinine Clr Calc Pharmacy 10.5; Estimated Glomerular Filt Rate 9; Glucose Random 159 mg/dL (60-115); Magnesium 2.1 mg/dL (1.6-2.6); Phosphorus 6.1 mg/dL (2.7-4.5); Potassium 3.2 mmol/L (3.3-5.1); Sodium 145 mmol/L (135-145)
--- NOTE | 2020-08-28 08:08 | P.PNNP_ITS ---
Subjective Subjective Date of Service: 08/28/20 (Pt is stable, thirsy and hungry) Principal diagnosis: mary kate/ckd Interval history: Mrs. García was transferred to ICU August 25 because of gross respiratory failure. The patient is a 65-year-old female with past medical history of diabetes, HTN, CKD (baseline creat about 1.9), neuropathy, severe PVD, anemia, asthma, HLD, and hypothyroidism. She was admitted to the hospital on August 18 with worsening osteomyelitis of her left big toe and MARY KATE, w creat 2.3. Sat was mid 90?s on room air. COVID-19 negative. No CXR was done. She was put on vanco and cefepime and hydrated. Her renal indices worsened progressively. She was scheduled for amputation on August 23, but that was deferred bec of onset of encephalopathy, most likely due to Lyrica being taken by the patient in the face of worsening renal function. Vanco was d/c?d bec no MRSA was found; the cefepime was changed to Zosyn bec of encephalopathy. Throughout all this hospitalization, the patient was breathing easy, with sats in the mid 90s on room air according to the chart notes. For unclear reasons (no mention in the chart), the patient had a chest x-ray on the morning of August 24 which showed diffuse bilateral infiltrates, despite the reported room air sat of 94-97% at that time. F/U CT chest the same day (again, no mention why) showed large bilateral groundglass infiltrates felt to be inconsistent with COVID, more suggestive of aspiration pneumonia, pulmonary edema, or pulmonary hemorrhage. Because of her altered MS, her clinicians thought the infiltrates were 2? aspiration. Lactate was normal, however, and she was afebrile, not tachypneic, hypertensive as usual, and in no distress according to both the hospitalist and the diesel locomotive firer/fireman (who commented that the patient was ?healthy appearing?). No Abx were added. She was continued on Zosyn for her toe. Early the morning of August 25, the patient developed respiratory distress and hypoxemia. Chest x-ray showed worsening bilateral infiltrates. Blood gas showed severe metabolic acidosis and hypoxemia. The patient was transferred to the ICU and immediately intubated and lined. Post procedure chest x-ray showed severe bilateral ARDS, very COVID-looking. However the patient had had two negative COVID NAAs, and furthermore was requiring only 35% FiO2 on the vent, Sa t?ing 97-99%. Labs were notable for BNP 748, compared to 117 two months ago. Sputum Gram stain drawn after intubation showed 3+ polys but no organisms. In view of all the above, her pulmonary infiltrates were ascribed to pulmonary edema, and she was given Bumex. ECHOCARDIOGRAM by me at the bedside August 26. Findings: 1. At least moderate LVH. 2. Normal LV function with no regional wall motion abnormalities. EF at least 50-60%. 3. RV size difficult to assess but at least on the parasternal long-axis and subcostal views, RV size is normal and contractility is normal. 4. All 3 valves with normal architecture and no significant regurgitant jets on color Doppler. 5. Best Doppler view of the tricuspid valve was obtained in the subcostal plane. Trace TR, with continuous wave Doppler jet measuring 2.0 m/sec. Gradient 16mm. 6. IVC dilated 2.4 cm, with minimal insp collapse. CVP estimate 14mm. RVSP estimate 30mm. Yesterday we started her on a Lasix infusion and Diuril. Avg u/o > 100cc/hr. In consultation with pulmonary, I also started her on Solumedrol 60 mg q6hr, and switched the antibiotics for her toe to ceftriaxone. Current infusions: Propofol 30 mcg Lasix 10 mg/hour Insulin 8 units/hour Bicarb infusion was stopped early this morning This morning she?s lightly sedated on just propofol at 30ug. She opens eyes to stimulation. Heart rate 72, SR. BP169/71. Breathing easy on the vent set at AC 12/360/28%/+5, with respiratory rate 17, Sat 96%. CBG this morning showed 7 .46/53/+12 on the bicarb drip. She has been afebrile her entire hospital stay. No JVD. Chest has a few coarse crackles. Normal exp phase. RRR normal S1 and S2, with no murmur or gallops. The abdomen is benign. She has 1+ central pitting edema. LABORATORY DATA: As below. Notably, WBC is down to 15.8, sodium 145, potassium 2.7, bicarb 30, BUN/creatinine up slightly to 71/4.3, phosphorus down to 4.8, calcium 5.8, POC running 150-170 on the insulin drip. IMAGING: CXR today show severe bilateral ARDS/pulmon edema, but slightly improved from yest film. We changed her vent over to PSV. On PSV 5/28%/+5, Vt was > 400cc, Ve 6-7L/min, Sat high 90?s. We turned the propfol off and she extubated without incident. Clear airway. She?s appropriately responsive and interactive, albeit a bit sluggish. Breathing easy with Sat 95% on 2L NC. IMPRESSION: 1. Baseline diabetes, severe peripheral vascular disease, and chronic kidney disease. 2. Osteomyelitis of left great toe. Needs amputation, which is elective according to Dr. Butler. Continue ceftriaxone in hospital. Needs 6 weeks of abx according to Dr. Gage. 3. Progressive azotemia despite volume loading. ECHO suggested that she was volume overloaded. Now on Lasix drip, with decent u/o. Renal indices appear to be cresting. I?ll give 500 of Diuril again today. ANCA and other biomarkers have been sent, to r/o pulmonary-renal syndromes. I?m hopeful that we?ll avoid dialysis. 4. Progressive encephalopathy. Almost certainly due to Lyrica being taken in the face of progressive renal failure. She looks good now. 5. Bilateral pulmonary infiltrates. Most likely cause was pulmonary edema. It?s a certainty that if it was any kind of infectious process, her A-a gradient would have been much, much, much worse. That rules out viral, COVID, or bacterial pneumonia. And if this was ARDS due to a remote septic focus, or if it was a gastric acid aspiration that caused infiltrates to this degree -- ie. diffuse ARDS -- it?s inconceivable that her A-a gradient would have been so small. Pulmonary-renal syndromes are secondary possibilities (altho I would think that ARDS from any inflammatory cause would cause much more hypoxemia). We started her on a 3-day course of Solumedrol yesterday. I?ll do a quick taper on that. 6. Acute respiratory failure. Secondary to above. 7. Diabetes. Now on insulin drip. 8. Metabolic: Bicarb drip helped control her potassium and renal metabolic acidosis. Now have to replete her potassium and calcium. We?ll have to add free water tomorrow. 9. Nutrition: Tube feeds d/c?d when we pulled her ETT. Otherwise usual supportive care. Spoke with entire family at length in conference today, and we talked about her condition, treatment, and prognosis. I showed them CXRs. Critical care time (include mult visits to bedside): 90 min. Physical Exam Vital Signs: Vital Signs: Last Vital Signs Temp 97.7 F 08/28/20 08:00 Pulse 65 08/28/20 08:00 Resp 18 08/28/20 08:00 BP 167/76 H 08/28/20 08:00 Pulse Ox 95 08/28/20 08:00 Body Mass Index 32.0 Const: General: cooperative, healthy appearing, comfortable, no acute distress, awake and other (Patient intubated and sedated) Nutritional Appearance: overweight Orientation/consciousness: oriented to person, oriented to place, oriented to time and patient oriented x3 HENMT: Head: Yes normal to inspection, Yes normocephalic and Yes atraumatic Mouth: Normal oral and palatal mucosa present Eyes: General: appearance normal, both eyes and all related structures Neck: Neck: Yes normal visual inspection, Yes trachea midline, Yes supple, Yes no JVD and Yes other (Right IJ line) Carotids: no bruits Chest: Chest palpation & inspection: normal inspection of the chest Resp: Effort & Inspection: normal respiratory effort and able to speak in complete sentences Auscultation: clear to auscultation bilaterally, no crackles, no rales, no rhonchi, no wheezes, diminished lung sounds and other (Coarse breath sounds.) Cardio: Palpation: normal PMI Rate: regular rate Rhythm: regular rhythm Heart sounds: S1 normal heart sound present, S2 normal heart sound present and Murmur heart sound present systolic at the right sternal border Bruits: no carotid bruits Peripheral pulses: dorsalis pedis present (Bilateral DP signals) GI: Inspection: Yes normal to inspection Palpation (GI): Soft to palpation and nontender Auscultation: normal bowel sounds : General: Yes no CVA tenderness Back/Spine/Pelvis: Back: no CVA tenderness Skin: General skin exam: no rashes or lesions noted Wounds: wounds noted (Nonhealing left great toe) Hair: normal Neuro: General: oriented to person, oriented to place, oriented to time, pa tient oriented x3, moves all extremities and CN's II-XI intact bilaterally Cranial nerves: Yes CN's II-XII intact bilaterally and Yes Normal hearing present Cognition (Neuro): normal cognition Motor exam (neuro): 5/5 motor strength present throughout Extrem: General: Yes normal to inspection, Yes full ROM, Yes no clubbing, cyanosis or edema, No clubbing, No cyanosis and No edema Psych: Appearance: grossly normal and well kempt Mental Status: mental status grossly normal Speech and movement: Normal speech and movement present Affect: normal affect Objective Data Labs CBC & Chem 7: 08/28/20 05:05 08/28/20 05:05 Labs: Laboratory Results - last 24 hr 08/27/20 08/27/20 08/27/20 09:51 12:21 13:53 WBC RBC Hgb Hct MCV MCH MCHC RDW Plt Count MPV Absolute Nucleated RBC Nucleated RBC % (auto) VBG pH 7.46 H VBG pCO2 53 VBG pO2 47 VBG HCO3 38 H VBG O2 Saturation 76.0 VBG Base Excess 12.6 Sodium Potassium Chloride Carbon Dioxide Anion Gap BUN Creatinine Estim Creat Clear Calc Estimated GFR POC Glucose 177 H 185 H Random Glucose Calcium Phosphorus Magnesium B-Natriuretic Peptide Albumin 08/27/20 08/27/20 08/28/20 18:14 20:43 00:50 WBC RBC Hgb Hct MCV MCH MCHC RDW Plt Count MPV Absolute Nucleated RBC Nucleated RBC % (auto) VBG pH VBG pCO2 VBG pO2 VBG HCO3 VBG O2 Saturation VBG Base Excess Sodium 144 Potassium 3.0 L Chloride 95 L Carbon Dioxide 35 H Anion Gap 17 BUN 77 H Creatinine 4.63 H* Estim Creat Clear Calc 10.7 Estimated GFR 9 POC Glucose 160 H 167 H Random Glucose 174 H Calcium 6.0 L* Phosphorus Magnesium B-Natriuretic Peptide Albumin 08/28/20 08/28/20 08/28/20 05:05 05:05 05:05 WBC 17.6 H RBC 3.38 L Hgb 9.1 L Hct 28.6 L MCV 84.6 MCH 26.9 L MCHC 31.8 RDW 14.6 Plt Count 341 MPV 10.8 Absolute Nucleated RBC 0.020 H Nucleated RBC % (auto) 0.1 VBG pH VBG pCO2 VBG pO2 VBG HCO3 VBG O2 Saturation VBG Base Excess Sodium 145 Potassium 3.2 L Chloride 96 Carbon Dioxide 34 H Anion Gap 18 BUN 84 H* Creatinine 4.75 H* Estim Creat Clear Calc 10.5 Estimated GFR 9 POC Glucose Random Glucose 159 H Calcium 6.2 L Phosphorus 6.1 H Magnesium 2.1 B-Natriuretic Peptide 1529 H Albumin 2.9 L 08/28/20 05:08 WBC RBC Hgb Hct MCV MCH MCHC RDW Plt Count MPV Absolute Nucleated RBC Nucleated RBC % (auto) VBG pH 7.41 VBG pCO2 63 VBG pO2 44 VBG HCO3 40 H VBG O2 Saturation 70.0 VBG Base Excess 13.8 Sodium Potassium Chloride Carbon Dioxide Anion Gap BUN Creatinine Estim Creat Clear Calc Estimated GFR POC Glucose Random Glucose Calcium Phosphorus Magnesium B-Natriuretic Peptide Albumin Microbiology Microbiology Results: Microbiology 08/25/20 06:49 Sputum - Suctioned Gram Stain - Final 08/25/20 06:49 Sputum - Suctioned Sputum Culture - Final 08/24/20 09:53 Blood - Venous Blood Culture - Preliminary No growth after 48 hours. 08/24/20 09:52 Blood - Venous Blood Culture - Preliminary No growth after 48 hours. 08/18/20 16:15 Blood - Venous Blood Culture - Final No growth after 5 days. 08/18/20 16:15 Blood - Venous Blood Culture - Final No growth after 5 days. Assessment & Plan Assessment and plan (1) Acute respiratory failure with hypoxemia: Status: Acute Assessment and Plan: Acute hypoxemic respiratory failure which is improving and plan for extubation today despite positive balance and persistent bilateral pulmonary infiltrates. Her IV sodium bicarbonate has been withheld his acidosis has improved. Echocardiogram shows normal LV systolic function with impaired relaxation but e levated LV filling pressures. Her creatinine is further increased. Still unclear whether she has significant cardiogenic component to her bilateral pulmonary infiltrates and edema like pattern. However continue IV Lasix therapy. Continue to monitor his intake and output chart and continue to mon itor BMP and BNP. Continue supportive care. If clinical picture worsen should consider right heart catheterization. Will follow the patient (2) MARY KATE (acute kidney injury): Status: Acute Assessment and Plan: Pt with MARY KATE which is nonoliguric; she is not uremic. appears closer to euvolemic and might stop diruetics at this point NO need for BIOINFORMATICS RESEARCH TECHNICIAN at this point. LIkely ATN though cause of MARY KATE is unclear and may come to require renal biopsy Pt has very low complement levels; GEORGE ok; check cryoglobulins and Hep C. Would also consider possible ischemic renal disease given htn, PAD. Recommend: Stop diuretics, replete K, check cryoglobulins, renal artery doppler (3) Acute hypokalemia: Status: Acute Assessment and Plan: Replete K; has metabolic alkalosis and resp acidosis (4) PAD (peripheral artery disease): Status: Acute (5) Myoclonic seizures: Status: Acute Time Spent With Patient Time: Total time spent is greater than 50% in coordination of care (as documented) at patient's floor/unit and/or counseling patient: Procedures Date of Service Date of Service: 08/28/20
[2020-08-28 09:19] LABS: Glucose, Whole Blood 154 mg/dL (60-115)
[2020-08-28] MEDS: Chlorhexidine Gluc Oral Rinse 15 ML MOUTHWASH BUCCAL ×2 (09:21→14:56)
--- NOTE | 2020-08-28 11:34 | PM.CCPN ---
Subjective Subjective Date of Service: 08/28/20 Interval History: Mrs. García was transferred to ICU August 25 because of gross respiratory failure w bilateral pulmonary infiltrates of undetermined etiology. The patient is a 65-year-old female with past medical history of diabetes, HTN, CKD (baseline creat about 1.9), neuropathy, severe PVD, anemia, asthma, HLD, and hypothyroidism. She was admitted to the hospital on August 18 with worsening osteomyelitis of her left big toe and MARY KATE, w creat 2.3. Sat was mid 90?s on room air. COVID-19 negative. No CXR was done. She was put on vanco and cefepime and hydrated. Her renal indices worsened progressively. She was scheduled for amputation on August 23, but that was deferred bec of onset of encephalopathy, most likely due to Lyrica being taken by the patient in the face of worsening renal function. Vanco was d/c?d bec no MRSA was found; the cefepime was changed to Zosyn bec of encephalopathy. Throughout all the early days of this hospitalization, the patient was breathing easy, with sats in the mid 90s on room air according to the chart notes. For unclear reasons (no mention in the chart), the patient had a chest x-ray on the morning of August 24 which showed diffuse bilateral infiltrates, despite the reported room air sat of 94-97% at that time. F/U chest CT the same day (again, no mention why) showed large bilateral groundglass infiltrates felt to be inconsistent with COVID, more suggestive of aspiration pneumonia, pulmonary edema, or pulmonary hemorrhage. Because of her altered MS, her clinicians thought the infiltrates were 2? aspiration. Lactate was normal however, and she was afebrile, not tachypneic or hypotensive, and in no distress according to both the hospitalist and the oyster culler (who commented that the patient was ?healthy appearing?). No Abx were added. She was continued on Zosyn for her toe. Early the morning of August 25, the patient developed hypoxemia and respiratory distress. Chest x-ray showed worsening bilateral infiltrates. Blood gas showed severe metabolic acidosis and hypoxemia. The patient was transferred to the ICU and immediately intubated and lined. Post procedure chest x-ray showed severe bilateral ARDS, very COVID-looking. However the patient had had two negative COVID NAAs, and furthermore was requiring only 35% FiO2 on the vent, Sat?ing 97-99%. Labs were notable for BNP 748, compared to 117 two months ago. Sputum Gram stain drawn after intubation showed 3+ polys but no organisms. In view of all the above, her pulmonary infiltrates were ascribed to pulmonary edema, and she was given Bumex. ECHOCARDIOGRAM by me at the bedside August 26. Findings: 1. At least moderate LVH. 2. Normal LV function with no regional wall motion abnormalities. EF at least 50-60%. 3. RV size difficult to assess but on the parasternal long-axis and subcostal views, RV size was normal and contractility was normal. 4. All 3 valves showed normal architecture and no significant regurgitant jets on color christine Doppler. 5. Best Doppler view of the tricuspid valve was obtained in the subcostal plane. Trace TR, with off-angle CWD jet measuring 2.0 m/sec. Gradient 16mm. 6. IVC dilated 2.4 cm, with minimal insp collapse. CVP estimate 14mm. RVSP estimate 30mm. The next day (August 26) we started her on a Lasix infusion and Diuril. In consultation with pulmonary, she was also started her on Solumedrol 60 mg q6hr. In consultation with ID, the abx for her toe were switched to ceftriaxone. The patient was extubated yesterday with no incident and WOB has been no problem. I cut the solumedrol to Current infusions: Lasix 10 mg/hour Insulin 2 units/hour Current, she?s fully awake and fully appropriately responsive, altho her interaction is slow. Says she?s hungry. Breathing easy on 2L NC with Sat 96%. CVBG this morning showed 7.41/63/+13. Heart rate 111, SR. BP179/85. She has been afebrile her entire hospital stay. No JVD. Chest has low pitched coarse crackles/coarse rales. Normal exp phase. RRR normal S1 and S2, with no murmur or gallops. The abdomen is benign. She has 2+ central pitting edema. LABORATORY DATA: As below. Notably, WBC up to 17.6, sodium 145, potassium 3.2, bicarb 34, BUN/creatinine up to 84/4.7, phosphorus up to 6.1, calcium 6.2, POC running 150-170 on the insulin drip. BNP 1529. IMAGING: CXR today shows bilateral ARDS/pulmon edema, unchanged from yesterday?s film. IMPRESSION: 1. Baseline diabetes, severe peripheral vascular disease, and chronic kidney disease. 2. Osteomyelitis of left great toe. Needs amputation, which is elective according to Dr. Butler. Continue ceftriaxone in hospital. Maybe Dr. Butler can do her amputation this week. Needs 6 weeks of abx according to Dr. Gage. 3. Progressive azotemia despite volume loading. ECHO suggested that she was volume overloaded. Now on Lasix drip, with decent u/o. Renal indices appeared to be cresting yesterday, but continued rising to today. ANCA and other biomarkers have been sent, to r/o pulmonary-renal syndromes. I?m hopeful that we?ll avoid dialysis, but that looks less likely today. 4. Progressive encephalopathy. Almost certainly due to Lyrica being taken in the face of progressive renal failure. She looks good now. 5. Bilateral pulmonary infiltrates. Most likely cause was pulmonary edema. Her overall resp status improved w diuresis. It?s a certainty that if it was any kind of infectious process, her A-a gradient would have been much, much, much worse. That rules out viral, COVID, or bacterial pneumonia. And if this was ARDS due to a remote septic focus, or if it was a gastric acid aspiration that caused infiltrates to this degree -- ie. diffuse ARDS -- it?s inconceivable that her A-a gradient would have been so narrow. Pulmonary-renal syndromes are secondary possibilities (altho I would think that ARDS from any inflammatory cause would cause much more hypoxemia). We started her on a 3-day course of Solumedrol on August 26. I?ll cut that to 30 mg bid today. 6. Acute respiratory failure. Secondary to above. 7. Diabetes. Now on insulin drip. Will d/c the insulin drip today, change to SS. 8. HTN: Restarting amlodipine and metoprolol. 9. PVD. Restarting ASA, Plavix, and Pletal today. 10. Metabolic: Potassium is still low, despite the MARY KATE. Bicarb is not falling. But phos is up. 11. HLD. Restarting atorvastatin. 12. Nutrition: Starting regular diet today. Otherwise usual supportive care. Time: 60 min. ([id number]) Critical Care Time (minutes): 0 Physical Exam Vital Signs: Vital Signs: Last Vital Signs Temp 97.7 F 08/28/20 08:00 Pulse 67 08/28/20 11:00 Resp 17 08/28/20 11:00 BP 179/85 H 08/28/20 11:00 Pulse Ox 94 08/28/20 11:00 Body Mass Index 32.0 Objective Data Labs CBC & Chem 7: 08/28/20 05:05 08/28/20 05:05 Labs: Laboratory Results - last 24 hr 08/27/20 08/27/20 08/27/20 12:21 13:53 18:14 WBC RBC Hgb Hct MCV MCH MCHC RDW Plt Count MPV Absolute Nucleated RBC Nucleated RBC % (auto) VBG pH 7.46 H VBG pCO2 53 VBG pO2 47 VBG HCO3 38 H VBG O2 Saturation 76.0 VBG Base Excess 12.6 Sodium Potassium Chloride Carbon Dioxide Anion Gap BUN Creatinine Estim Creat Clear Calc Estimated GFR POC Glucose 185 H 160 H Random Glucose Calcium Phosphorus Magnesium B-Natriuretic Peptide Albumin 08/27/20 08/28/20 08/28/20 20:43 00:50 05:05 WBC 17.6 H RBC 3.38 L Hgb 9.1 L Hct 28.6 L MCV 84.6 MCH 26.9 L MCHC 31.8 RDW 14.6 Plt Count 341 MPV 10.8 Absolute Nucleated RBC 0.020 H Nucleated RBC % (auto) 0.1 VBG pH VBG pCO2 VBG pO2 VBG HCO3 VBG O2 Saturation VBG Base Excess Sodium 144 Potassium 3.0 L Chloride 95 L Carbon Dioxide 35 H Anion Gap 17 BUN 77 H Creatinine 4.63 H* Estim Creat Clear Calc 10.7 Estimated GFR 9 POC Glucose 167 H Random Glucose 174 H Calcium 6.0 L* Phosphorus Magnesium B-Natriuretic Peptide Albumin 08/28/20 08/28/20 08/28/20 05:05 05:05 05:08 WBC RBC Hgb Hct MCV MCH MCHC RDW Plt Count MPV Absolute Nucleated RBC Nucleated RBC % (auto) VBG pH 7.41 VBG pCO2 63 VBG pO2 44 VBG HCO3 40 H VBG O2 Saturation 70.0 VBG Base Excess 13.8 Sodium 145 Potassium 3.2 L Chloride 96 Carbon Dioxide 34 H Anion Gap 18 BUN 84 H* Creatinine 4.75 H* Estim Creat Clear Calc 10.5 Estimated GFR 9 POC Glucose Random Glucose 159 H Calcium 6.2 L Phosphorus 6.1 H Magnesium 2.1 B-Natriuretic Peptide 1529 H Albumin 2.9 L 08/28/20 09:16 WBC RBC Hgb Hct MCV MCH MCHC RDW Plt Count MPV Absolute Nucleated RBC Nucleated RBC % (auto) VBG pH VBG pCO2 VBG pO2 VBG HCO3 VBG O2 Saturation VBG Base Excess Sodium Potassium Chloride Carbon Dioxide Anion Gap BUN Creatinine Estim Creat Clear Calc Estimated GFR POC Glucose 154 H Random Glucose Calcium Phosphorus Magnesium B-Natriuretic Peptide Albumin Microbiology Microbiology Results: Microbiology 08/25/20 06:49 Sputum - Suctioned Gram Stain - Final 08/25/20 06:49 Sputum - Suctioned Sputum Culture - Final 08/24/20 09:53 Blood - Venous Blood Culture - Preliminary No growth after 48 hours. 08/24/20 09:52 Blood - Venous Blood Culture - Preliminary No growth after 48 hours. 08/18/20 16:15 Blood - Venous Blood Culture - Final No growth after 5 days. 08/18/20 16:15 Blood - Venous Blood Culture - Final No growth after 5 days.
[2020-08-28 13:30] LABS: Glucose, Whole Blood 177 mg/dL (60-115)
[2020-08-28] MEDS: methylPREDNISolone Sod Succ 125 MG/2 ML VIAL 30 MG IVPUSH (14:48)
[2020-08-28] MEDS: Metoprolol Tartrate 25 MG TABLET PO (14:56)
[2020-08-28] MEDS: amLODIPine Besylate 2.5 MG TABLET PO (14:57)
[2020-08-28] MEDS: Calcium Gluconate/NaCl,Iso-Osm 1 GM/50 ML PLAST..BAG IV (15:58)
--- NOTE | 2020-08-28 16:19 | MHC.CM.PN ---
CM MET WITH PT ALONG WITH [employer] INST[employer]ER AT PTS REQUEST TO COMPLETE A NEW HCP. CM EXPLAINED THE DOCUMENT AND WHY THERE PRIMARY AND ALTERNATE AGENTS. PT COMPLETED A NEW HCP NAMING HER SON, TONA LIN PRIMARY AND HER DAUGHTER, WILIAN LIN SECONDARY. COPIES WERE PLACED IN CHART AND SCANNED INTO eshtery.
[2020-08-28] MEDS: hydrALAZINE HCl 20 MG/ML VIAL IVPUSH (16:21)
--- NOTE | 2020-08-28 16:31 | MHC.SL.SWA ---
Speech Pathologist Impression: Oral Phase Dysphagia Risk of Aspiration Due to: Hx of Recent Extubation Dysphasia Diet Status: Upgrade Liquid Consistency and Strategies for Safe Swallow: Liquid Intake Recommendation: Thin Liquid Intake Strategies: Small Sips Solid Food Consistency: Dietary Recommendations: Grnd/Mech Altered (NDD2) Additional Modifications to Solid Foods: Moisten solids with sauces and gravies for ease of mastication. Oral Medication Intake: Whole with Liquid Compensatory Strategies and Precautions to be Taken for Safe Swallow: Sitting Upright (90 deg) Small Bites and Sips Alternate Liquids/Solids Supervision While Eating and Drinking for Safe Swallow: Intermittent Supervision Foods to Avoid: Moisten solids with sauces and gravies for ease of mastication. Swallowing Recommended Treatments: Recommendation for Speech: Inpatient Speech Therapy Comment: BREAKER HAND will check in 1x to ensure tolerance. Frequency/Duration: Date Range for Service Req: Timeline to reassess: Cleaner And Polisher Clinican/Clinical Fellow: Yes: Mikala Alfredo M.A., CF-BREAKER HAND Supervisory Statement: I have reviewed and agree with the student/clinical fellow's documentation: Speech Language Pathologist:
[2020-08-28] MEDS: Insulin Lispro 100 UNIT/ML 3 ML VIAL SUBCUT ×2 (18:38→21:18)
[2020-08-28] MEDS: Labetalol HCL 100 MG TABLET PO (19:37)
[2020-08-28] MEDS: cefTRIAXone sodium 1 GM in 0.9 % Sodium Chloride 50 ML IV (19:40)
--- NOTE | 2020-08-28 19:43 | PC.NURSE ---
Assumed care at 07:00. Patient was alert and oriented, expressed interest in revising her healthcare proxy form; patient voiced interest in listing three of her relations on the healthcare proxy form; discussed with casemanager, who came to bedside with court interpreter and completed and filed new healthcare proxy that. Patient wishes may be better addressed by an advanced directive, passing along through church secretary to contact case operator in morning about this. Patient passed both nursing eval and speech therapist swallow eval, ground mechanical diet and thin liquids ordered and well tolerated. Patient was diursing pale yellow urine on lasix gtt and this was discontinued by md. Calcium was 6.2 this morning, discussed with MD, new order for 1 gm Ca was delivered. Recommendation by nephro was to replete K today for mild hypokalemia, discussed with acid concentrator. Cre remains markedly elevated. Patient with POCs in the 100's on insulin gtt, md discontinued and started on subcutaneous insulin. Family was in to visit today.
[2020-08-28 21:13] LABS: Glucose, Whole Blood 334 mg/dL (60-115)
[2020-08-28] MEDS: cilostazoL 100 MG TABLET PO (21:19)
[2020-08-28] MEDS: Atorvastatin Calcium 80 MG TABLET PO (21:19)
[2020-08-28] MEDS: Montelukast Sodium 10 MG TABLET PO (21:19)
[2020-08-28 22:01] LABS: Alanine Aminotransferase 10 U/L (0-31); Albumin Level 2.7 g/dL (3.5-5.0); Alkaline Phosphatase 101 U/L (39-117); Anion Gap 20 (12-20); Aspartate Amino Transferase 24 U/L (5-31); Bilirubin Total 0.4 mg/dL (0.0-1.0); Blood Urea Nitrogen 95 mg/dL (9-16); Calcium 5.9 mg/dL (8.4-10.2); Carbon Dioxide 33 mmol/L (22-29); Chloride 92 mmol/L (96-108); Creatinine Clr Calc Pharmacy 9.5; Estimated Glomerular Filt Rate 8; Glucose Random 344 mg/dL (60-115); Potassium 3.3 mmol/L (3.3-5.1); Sodium 142 mmol/L (135-145); Total Protein 6.3 g/dL (6.5-8.0)
[2020-08-28] MEDS: Potassium Chloride ER 20 MEQ TAB.ER.PRT PO (22:22)
[2020-08-28] MEDS: Calcium Gluconate/NaCl,Iso-Osm 2 GM/100 ML PLAST..BAG IV (22:22)
[2020-08-28 23:46] LABS: Anti Nuclear Antibody Screen NEGATIVE (NEGATIVE)
[2020-08-29] VITALS (25 sets, daily range): BP systolic 114–167; BP diastolic 45–75; PULSE 66–90; RESP 8–28; TEMP 36.2–36.7; O2SAT 92–97
[2020-08-29] MEDS: methylPREDNISolone Sod Succ 125 MG/2 ML VIAL 30 MG IVPUSH ×2 (00:55→14:08)
[2020-08-29 03:38] LABS: HBc Num1 0.14 S/CO (0.00-0.79); HBsAGNum1 0.16 S/CO (0.00-0.99); Hepatitis B Core Antibody Nonreactive (Nonreactive); Hepatitis B Surface Antigen Negative (Negative); ~HepC Num1 0.08 S/CO (0.00-0.79); ~Hepatitis C Antibody Nonreactive (Nonreactive)
[2020-08-29 03:51] LABS: ~Hepatitis B Surface Antibody NONREACTIVE (Nonreactive)
[2020-08-29] MEDS: Levothyroxine Sodium 25 MCG TABLET PO (05:19)
[2020-08-29 05:24] LABS: VBG Base Excess 11.1 mmol/L; VBG HCO3 37 mmol/L (22-26); VBG pCO2 57 mmHg; VBG pH 7.42 (7.32-7.43); VBG pO2 51 mmHg
[2020-08-29 05:36] LABS: Basophils Percent Auto 0.1 % (0-2); Eosinophils Percent Auto 0.1 % (0-4); Imm Gran Abs Auto 0.85 X10*3/uL (0.00-0.03); Imm Gran Pct Auto 6.2 % (0.0-0.4); Lymphocytes Absolute Auto 0.8 X10*3/uL (1.2-4.9); Lymphocytes Percent Auto 6.1 % (20-40); Mean Corpuscular HGB Conc 32.1 g/dl (31.0-35.0); Mean Corpuscular Hemoglobin 27.7 pg (27.0-33.0); Mean Corpuscular Volume 86.2 fL (80-98); Mean Platelet Volume 10.6 fL (9.4-12.3); Monocytes Absolute Auto 0.6 X10*3/uL (0.1-1.2); Monocytes Percent Auto 4.4 % (2-11); Neutrophils Absolute Auto 11.5 X10*3/uL (2.0-8.3); Neutrophils Percent Auto 83.1 % (45-73); Platelet Count 280 X10*3/uL (160-400); Red Blood Count 3.25 X10*6/uL (4.20-5.50); Red Cell Distribution Width 14.7 % (11.0-16.0); SCAN SMEAR FLAG 1; White Blood Count 13.8 X10*3/uL (4.8-10.8)
[2020-08-29 05:38] LABS: Venous Blood Gas Refer to POC result
[2020-08-29 05:57] LABS: Albumin Level 2.9 g/dL (3.5-5.0); Phosphorus 6.9 mg/dL (2.7-4.5)
[2020-08-29 05:59] LABS: MANUAL DIFF FLAG SCAN; SLIDE REVIEW VERIFIED
[2020-08-29 06:00] LABS: Creatinine Clr Calc Pharmacy 9.5; Estimated Glomerular Filt Rate 8
[2020-08-29 06:01] LABS: Alanine Aminotransferase 13 U/L (0-31); Albumin Level 2.9 g/dL (3.5-5.0); Alkaline Phosphatase 100 U/L (39-117); Anion Gap 23 (12-20); Aspartate Amino Transferase 22 U/L (5-31); Bilirubin Total 0.5 mg/dL (0.0-1.0); Blood Urea Nitrogen 97 mg/dL (9-16); Calcium 6.3 mg/dL (8.4-10.2); Carbon Dioxide 31 mmol/L (22-29); Chloride 92 mmol/L (96-108); Glucose Random 318 mg/dL (60-115); Potassium 3.6 mmol/L (3.3-5.1); Sodium 142 mmol/L (135-145); Total Protein 6.5 g/dL (6.5-8.0)
--- NOTE | 2020-08-29 06:14 | PC.NURSE ---
CARE ASSUMED 23:15...AWAKE..ALERT..ORIENTED X3...RESPIRATIONS EASY...SAO2 94-95% O2 2 L/M...NSR RARE PAC..DRINKING H20 W/O DIFFICULTY...RINCON DRAINING 60-100 CC/HR...DENIES DISCOMFORT OVERNIGHT
[2020-08-29 08:03] LABS: Glucose, Whole Blood 230 mg/dL (60-115)
[2020-08-29 08:07] LABS: Glucose, Whole Blood 304 mg/dL (60-115)
[2020-08-29] MEDS: amLODIPine Besylate 2.5 MG TABLET PO (08:17)
[2020-08-29] MEDS: Clopidogrel Bisulfate 75 MG TABLET PO (08:18)
[2020-08-29] MEDS: Heparin Sodium,Porcine 5,000 UNIT/ML VIAL 5000 UNIT SUBCUT ×3 (08:18→23:32)
[2020-08-29] MEDS: Aspirin Enteric Coated 81 MG TABLET.DR PO (08:18)
[2020-08-29] MEDS: Venlafaxine HCl ER 37.5 MG CAP.ER.24H PO (08:18)
[2020-08-29] MEDS: Insulin Lispro 100 UNIT/ML 3 ML VIAL SUBCUT ×4 (08:23→22:15)
[2020-08-29] MEDS: 0.9 % Sodium Chloride Flush 3 ML SYRINGE IVFLUSH ×3 (08:26→23:31)
--- NOTE | 2020-08-29 10:18 | MHC.CLN ---
F/U PT EXTUBATED NUTRITION DIRECTOR REC GRD M/S WITH THIN DIET RX: 1800DM GRD MS-APPROPRIATE 75% PO INTAKE RECORDED X1 MEAL CONTINUE TO MONITOR PO INTAKE CLOSELY
--- NOTE | 2020-08-29 10:24 | PM.EVENT ---
Event Note Date of Service: 08/29/20 Event Note: left great toe osteomyelitis,6 weeks IV Ceftriaxone,finishes 09/29
--- NOTE | 2020-08-29 10:31 | P.PNNP_ITS ---
Subjective Subjective Date of Service: 08/30/20 Principal diagnosis: mary kate/ckd Interval history: Events noted Non oliguric Physical Exam Vital Signs: Vital Signs: Last Vital Signs Temp 97.6 F 08/29/20 08:00 Pulse 76 08/29/20 10:00 Resp 14 08/29/20 10:00 BP 146/61 H 08/29/20 10:00 Pulse Ox 96 08/29/20 10:00 Body Mass Index 32.0 Const: General: awake Orientation/consciousness: oriented to person Neck: Neck: Yes supple Resp: Auscultation: rhonchi Cardio: Palpation: no palpable S3 Heart sounds: no rubs GI: Palpation (GI): Soft to palpation Auscultation: normal bowel sounds Neuro: General: oriented to person Motor exam (neuro): No Asterixis during motor activity present Objective Data Labs CBC & Chem 7: 08/30/20 05:35 08/30/20 05:35 Labs: Laboratory Results - last 24 hr 08/25/20 08/27/20 08/28/20 04:46 05:03 13:27 WBC RBC Hgb Hct MCV MCH MCHC RDW Plt Count MPV Immature Gran % (Auto) Neut % (Auto) Lymph % (Auto) [place] % (Auto) Eos % (Auto) Baso % (Auto) Lymph # (Auto) [place] # (Auto) Eos # (Auto) Baso # (Auto) Abs Immat Gran (auto) Absolute Neuts (auto) Absolute Nucleated RBC Nucleated RBC % (auto) Smear Tech's Comments VBG pH VBG pCO2 VBG pO2 VBG HCO3 VBG O2 Saturation VBG Base Excess Sodium Potassium Chloride Carbon Dioxide Anion Gap BUN Creatinine Estim Creat Clear Calc Estimated GFR POC Glucose 177 H Random Glucose Calcium Phosphorus Total Bilirubin AST ALT Alkaline Phosphatase Total Protein Albumin GEROGE Screen NEGATIVE Hep Bs Antigen Negative Hep Bs Antibody NONREACTIVE Hep B Core Total Ab Nonreactive Hepatitis C Ab (EIA) Nonreactive 08/28/20 08/28/20 08/28/20 16:38 21:09 21:17 WBC RBC Hgb Hct MCV MCH MCHC RDW Plt Count MPV Immature Gran % (Auto) Neut % (Auto) Lymph % (Auto) [place] % (Auto) Eos % (Auto) Baso % (Auto) Lymph # (Auto) [place] # (Auto) Eos # (Auto) Baso # (Auto) Abs Immat Gran (auto) Absolute Neuts (auto) Absolute Nucleated RBC Nucleated RBC % (auto) Smear Tech's Comments VBG pH VBG pCO2 VBG pO2 VBG HCO3 VBG O2 Saturation VBG Base Excess Sodium 142 Potassium 3.3 Chloride 92 L Carbon Dioxide 33 H Anion Gap 20 BUN 95 H* Creatinine 5.23 H* Estim Creat Clear Calc 9.5 Estimated GFR 8 POC Glucose 230 H 334 H Random Glucose 344 H D Calcium 5.9 L* Phosphorus Total Bilirubin 0.4 AST 24 ALT 10 Alkaline Phosphatase 101 Total Protein 6.3 L Albumin 2.7 L GEORGE Screen Hep Bs Antigen Hep Bs Antibody Hep B Core Total Ab Hepatitis C Ab (EIA) 08/29/20 08/29/20 08/29/20 05:16 05:20 05:20 WBC 13.8 H RBC 3.25 L Hgb 9.0 L Hct 28.0 L MCV 86.2 MCH 27.7 MCHC 32.1 RDW 14.7 Plt Count 280 MPV 10.6 Immature Gran % (Auto) 6.2 H Neut % (Auto) 83.1 H Lymph % (Auto) 6.1 L [place] % (Auto) 4.4 Eos % (Auto) 0.1 Baso % (Auto) 0.1 Lymph # (Auto) 0.8 L [place] # (Auto) 0.6 Eos # (Auto) 0.0 Baso # (Auto) 0.0 Abs Immat Gran (auto) 0.85 H Absolute Neuts (auto) 11.5 H Absolute Nucleated RBC 0.000 Nucleated RBC % (auto) 0.0 Smear Tech's Comments VERIFIED VBG pH 7.42 VBG pCO2 57 VBG pO2 51 VBG HCO3 37 H VBG O2 Saturation 77.0 VBG Base Excess 11.1 Sodium Potassium Chloride Carbon Dioxide Anion Gap BUN Creatinine Estim Creat Clear Calc Estimated GFR POC Glucose Random Glucose Calcium Phosphorus 6.9 H Total Bilirubin AST ALT Alkaline Phosphatase Total Protein Albumin 2.9 L GEORGE Screen Hep Bs Antigen Hep Bs Antibody Hep B Core Total Ab Hepatitis C Ab (EIA) 08/29/20 08/29/20 05:20 07:57 WBC RBC Hgb Hct MCV MCH MCHC RDW Plt Count MPV Immature Gran % (Auto) Neut % (Auto) Lymph % (Auto) [place] % (Auto) Eos % (Auto) Baso % (Auto) Lymph # (Auto) [place] # (Auto) Eos # (Auto) Baso # (Auto) Abs Immat Gran (auto) Absolute Neuts (auto) Absolute Nucleated RBC Nucleated RBC % (auto) Smear Tech's Comments VBG pH VBG pCO2 VBG pO2 VBG HCO3 VBG O2 Saturation VBG Base Excess Sodium 142 Potassium 3.6 Chloride 92 L Carbon Dioxide 31 H Anion Gap 23 H BUN 97 H* Creatinine 5.23 H* Estim Creat Clear Calc 9.5 Estimated GFR 8 POC Glucose 304 H Random Glucose 318 H Calcium 6.3 L D Phosphorus Total Bilirubin 0.5 AST 22 ALT 13 Alkaline Phosphatase 100 Total Protein 6.5 Albumin 2.9 L GEORGE Screen Hep Bs Antigen Hep Bs Antibody Hep B Core Total Ab Hepatitis C Ab (EIA) Microbiology Microbiology Results: Microbiology 08/25/20 06:49 Sputum - Suctioned Gram Stain - Final 08/25/20 06:49 Sputum - Suctioned Sputum Culture - Final 08/24/20 09:53 Blood - Venous Blood Culture - Preliminary No growth after 48 hours. 08/24/20 09:52 Blood - Venous Blood Culture - Preliminary No growth after 48 hours. 08/18/20 16:15 Blood - Venous Blood Culture - Final No growth after 5 days. 08/18/20 16:15 Blood - Venous Blood Culture - Final No growth after 5 days. Assessment & Plan Assessment and plan (1) Metabolic encephalopathy: Status: Acute (2) MARY KATE (acute kidney injury): Status: Acute Assessment and Plan: 1. MARY KATE: cont incr SCR and c/w new ischemic ATN hit; given markedly abnl CXR and ques of pulm hem ANCA - normal. 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 no hypotension pre-renal despite FENa > 1% CAROL/IRD and ques chol emboli: all definite poss given severeity of ASVD No Obs by renal U/s 2. CKD 4: bsl SCr 2.0: most c/w DN/HTN renal dis 3. AMS: suspect med pregabapentin playing signif role : Improved 4. HypoCa: decr CA further d/t decr alb 5. AGMA/NAGMA: resolved with IV NaHCO3 6. Impressive CXR abbnl and yet O2 requirements minimal --no A-a gradient; CHF vs ARDS Currently non oliguric No overt s/s of uremia no absolute indication for dialysis yet Continue to keep O > I Needs kidney biopsy for definitive diagnosis Time Spent With Patient Time: Total time spent is greater than 50% in coordination of care (as documented) at patient's floor/unit and/or counseling patient: Procedures Date of Service Date of Service: 08/29/20
--- NOTE | 2020-08-29 11:02 | MHC.SL.DTX ---
Pre-Treatment Diet: NDD2 THIN WHOLE in LIQUID Subjective: Changes made to current diet?: NO Dysphasia Diet Status: Liquid Consistency and Strategies: Liquid Intake Recommendation: Thin Compensatory Strategies for Safe Swallow: Unrestricted Compensatory Strategies for Safe Swallow(b): Sitting Upright (90 deg) Liquids from Cup Small Bites and Sips Alternate Liquids/Solids Solid Food Consistency: Dietary Recommendations: Grnd/Mech Altered (NDD2) Additional Modifications to Solids: Moisten solids with sauces and gravies for ease of mastication. Oral Medication Intake: Whole with Liquid Strategies and Precautions to be Taken for Safe Swallow: Compensatory Swallowing Status: Sitting Upright (90 deg) Liquids from Cup Small Bites and Sips Alternate Liquids/Solids Supervision While Eating and/Drinking: Intermittent Supervision Foods to Avoid: Moisten solids with sauces and gravies for ease of mastication. Swallowing Recommended Treatments: Level of Impact on: Daily activities: Mild Interpersonal interactions: Mild Education: None Employment: None Community: None Prognosis for Improvement: Good Recommendation for Speech: Inpatient Speech Therapy Comment: Pt appears to be on appropriate diet at this time. Frequency/Duration: Date Range for Service Req: Timeline to reassess: Additional Comments: Treatment: Pt was seen this morning for dysphagia follow up. Per RN, pt is tolerating diet recommendations without difficulty. Pt stated she did not like her breakfast this morning, as it was cold and did not eat much. Pt agreed to PO trials. She tolerated thin liquids with no overt s/s aspiration. When given a cup of applesauce with julián cracker to dip, pt struggled to moisten the cracker enough. She was able to mash this consistency despite being edentulous. Pt stated that she does not wear dentures due to pain. Subsequent bite of ground consistency were trialed. Moderate oral residue noted. pt cleared with liquid wash. Assessment: Folder Machine Clinican/Clinical Fellow: Yes: Mikala Alfredo M.A., CF-INSTALLATION & MAINTENANCE EXECUTIVE Supervisory Statement: I have reviewed and agree with the student/clinical fellow's documentation: Speech Language Pathologist:
--- NOTE | 2020-08-29 11:26 | P.PNCC_ITS ---
Subjective Subjective Date of Service: 08/29/20 Interval History: 65-year-old female who presented with sepsis stemming from left big toe osteomyelitis clearly a gas producing organism had been on vancomycin and cefepime subsequently this was changed after a brief interlude with Laureen to the current ceftriaxone and at 1 point she was intubated for acute hypoxic respiratory failure with altered mental status and had what could be interpreted with bilateral ground-glass infiltrates and ARDS pattern versus an aspiration picture but this was also in the face of an acute and rapidly progr essive renal failure currently with a stabilizing creatinine of 5.2 and a BUN of 95 is uremic and has a CVP though that measures at 7-8 no longer on diuretics jus with fluid management and a chest x-ray with some mild bilateral scattered infiltrates which could be the residual what of a healing ARDS like picture or aspiration but at this point she needs source control probably as soon as possible with amputation of the of the toe and possibly leaving the wound open because of the subcu subcutaneous gas that was noted Critical Care Time (minutes): 45 Physical Exam Vital Signs: Vital Signs: Last Vital Signs Temp 97.6 F 08/29/20 08:00 Pulse 82 08/29/20 11:00 Resp 17 08/29/20 11:00 BP 156/75 H 08/29/20 11:00 Pulse Ox 96 08/29/20 11:00 Body Mass Index 32.0 Const: Other: Awake alert and oriented and nonfocal neurologic Melisa Normal sinus rhythm with good vital signs including blood pressure 155/75 on her antihypertensives Chest is clear with no adventitious sounds CVP 7-8 with good bilateral carotid upstrokes no gallops Abdomen benign no organomegaly with good bowel sounds Objective Data Labs CBC & Chem 7: 08/29/20 05:20 08/29/20 05:20 Labs: Laboratory Results - last 24 hr 08/25/20 08/27/20 08/28/20 04:46 05:03 13:27 WBC RBC Hgb Hct MCV MCH MCHC RDW Plt Count MPV Immature Gran % (Auto) Neut % (Auto) Lymph % (Auto) [place] % (Auto) Eos % (Auto) Baso % (Auto) Lymph # (Auto) [place] # (Auto) Eos # (Auto) Baso # (Auto) Abs Immat Gran (auto) Absolute Neuts (auto) Absolute Nucleated RBC Nucleated RBC % (auto) Smear Tech's Comments VBG pH VBG pCO2 VBG pO2 VBG HCO3 VBG O2 Saturation VBG Base Excess Sodium Potassium Chloride Carbon Dioxide Anion Gap BUN Creatinine Estim Creat Clear Calc Estimated GFR POC Glucose 177 H Random Glucose Calcium Phosphorus Total Bilirubin AST ALT Alkaline Phosphatase Total Protein Albumin GEORGE Screen NEGATIVE Hep Bs Antigen Negative Hep Bs Antibody NONREACTIVE Hep B Core Total Ab Nonreactive Hepatitis C Ab (EIA) Nonreactive 08/28/20 08/28/20 08/28/20 16:38 21:09 21:17 WBC RBC Hgb Hct MCV MCH MCHC RDW Plt Count MPV Immature Gran % (Auto) Neut % (Auto) Lymph % (Auto) [place] % (Auto) Eos % (Auto) Baso % (Auto) Lymph # (Auto) [place] # (Auto) Eos # (Auto) Baso # (Auto) Abs Immat Gran (auto) Absolute Neuts (auto) Absolute Nucleated RBC Nucleated RBC % (auto) Smear Tech's Comments VBG pH VBG pCO2 VBG pO2 VBG HCO3 VBG O2 Saturation VBG Base Excess Sodium 142 Potassium 3.3 Chloride 92 L Carbon Dioxide 33 H Anion Gap 20 BUN 95 H* Creatinine 5.23 H* Estim Creat Clear Calc 9.5 Estimated GFR 8 POC Glucose 230 H 334 H Random Glucose 344 H D Calcium 5.9 L* Phosphorus Total Bilirubin 0.4 AST 24 ALT 10 Alkaline Phosphatase 101 Total Protein 6.3 L Albumin 2.7 L GEORGE Screen Hep Bs Antigen Hep Bs Antibody Hep B Core Total Ab Hepatitis C Ab (EIA) 08/29/20 08/29/20 08/29/20 05:16 05:20 05:20 WBC 13.8 H RBC 3.25 L Hgb 9.0 L Hct 28.0 L MCV 86.2 MCH 27.7 MCHC 32.1 RDW 14.7 Plt Count 280 MPV 10.6 Immature Gran % (Auto) 6.2 H Neut % (Auto) 83.1 H Lymph % (Auto) 6.1 L [place] % (Auto) 4.4 Eos % (Auto) 0.1 Baso % (Auto) 0.1 Lymph # (Auto) 0.8 L [place] # (Auto) 0.6 Eos # (Auto) 0.0 Baso # (Auto) 0.0 Abs Immat Gran (auto) 0.85 H Absolute Neuts (auto) 11.5 H Absolute Nucleated RBC 0.000 Nucleated RBC % (auto) 0.0 Smear Tech's Comments VERIFIED VBG pH 7.42 VBG pCO2 57 VBG pO2 51 VBG HCO3 37 H VBG O2 Saturation 77.0 VBG Base Excess 11.1 Sodium Potassium Chloride Carbon Dioxide Anion Gap BUN Creatinine Estim Creat Clear Calc Estimated GFR POC Glucose Random Glucose Calcium Phosphorus 6.9 H Total Bilirubin AST ALT Alkaline Phosphatase Total Protein Albumin 2.9 L GEORGE Screen Hep Bs Antigen Hep Bs Antibody Hep B Core Total Ab Hepatitis C Ab (EIA) 08/29/20 08/29/20 05:20 07:57 WBC RBC Hgb Hct MCV MCH MCHC RDW Plt Count MPV Immature Gran % (Auto) Neut % (Auto) Lymph % (Auto) [place] % (Auto) Eos % (Auto) Baso % (Auto) Lymph # (Auto) [place] # (Auto) Eos # (Auto) Baso # (Auto) Abs Immat Gran (auto) Absolute Neuts (auto) Absolute Nucleated RBC Nucleated RBC % (auto) Smear Tech's Comments VBG pH VBG pCO2 VBG pO2 VBG HCO3 VBG O2 Saturation VBG Base Excess Sodium 142 Potassium 3.6 Chloride 92 L Carbon Dioxide 31 H Anion Gap 23 H BUN 97 H* Creatinine 5.23 H* Estim Creat Clear Calc 9.5 Estimated GFR 8 POC Glucose 304 H Random Glucose 318 H Calcium 6.3 L D Phosphorus Total Bilirubin 0.5 AST 22 ALT 13 Alkaline Phosphatase 100 Total Protein 6.5 Albumin 2.9 L GEORGE Screen Hep Bs Antigen Hep Bs Antibody Hep B Core Total Ab Hepatitis C Ab (EIA) Microbiology Microbiology Results: Microbiology 08/25/20 06:49 Sputum - Suctioned Gram Stain - Final 08/25/20 06:49 Sputum - Suctioned Sputum Culture - Final 08/24/20 09:53 Blood - Venous Blood Culture - Preliminary No growth after 48 hours. 08/24/20 09:52 Blood - Venous Blood Culture - Preliminary No growth after 48 hours. 08/18/20 16:15 Blood - Venous Blood Culture - Final No growth after 5 days. 08/18/20 16:15 Blood - Venous Blood Culture - Final No growth after 5 days. Progress Note: A&P Assessment and plan (1) Acute respiratory failure with hypoxemia: Status: Acute (2) Myoclonic seizures: Status: Acute (3) Metabolic encephalopathy: Status: Acute (4) CKD (chronic kidney disease): Status: Acute (5) Osteomyelitis of great toe of left foot: Status: Acute (6) Hypocalcemia: Status: Acute (7) MARY KATE (acute kidney injury): Status: Acute (8) Acute hypokalemia: Status: Acute (9) PAD (peripheral artery disease): Status: Acute Assessment and Plan: At this point we continue to watch her renal insufficiency and I am waiting for renal to see her so I can not express concern with the use of a beta lactam drug in relation to her renal insufficiency and will call surgery to give us a sense of timing about source control with toe amputation and possibly opening the wound to help it is healing
[2020-08-29 11:36] LABS: Glucose, Whole Blood 282 mg/dL (60-115)
[2020-08-29] MEDS: cilostazoL 100 MG TABLET PO ×2 (11:43→22:16)
[2020-08-29] MEDS: Insulin Glargine,Hum.rec.anlog 100 UNIT/ML 10 ML VIAL 10 UNIT SUBCUT (11:44)
[2020-08-29] MEDS: Chlorhexidine Gluc Oral Rinse 15 ML MOUTHWASH BUCCAL (14:08)
[2020-08-29 14:41] LABS: Anti Glomerular Basement Memb <1.0 AI; Myeloperoxidase Antibody <1.0 AI; Proteinase 3 PR3 Antibodies <1.0 AI
[2020-08-29 14:41] LABS: Anti Glomerular Basement Memb <1.0 AI
--- NOTE | 2020-08-29 14:42 | MHC.CM.PN ---
Met with pt, niece Divya and granddtr (minor child). Pt is interested in completing a new HCP listing Divya as her primary agent and Javi as secondary. New form completed and placed into chart. Pt alert, conversant - verbalized slight anxiety re: great toe amp scheduled for this week. D/C plan remains for a return to home with existing services. Family can transport.
[2020-08-29 16:46] LABS: Glucose, Whole Blood 230 mg/dL (60-115)
[2020-08-29 21:17] LABS: Glucose, Whole Blood 207 mg/dL (60-115)
[2020-08-29] MEDS: cefTRIAXone sodium 1 GM in 0.9 % Sodium Chloride 50 ML IV (22:00)
[2020-08-29] MEDS: Montelukast Sodium 10 MG TABLET PO (22:15)
[2020-08-29] MEDS: Atorvastatin Calcium 80 MG TABLET PO (22:16)
[2020-08-30] VITALS (27 sets, daily range): BP systolic 96–184; BP diastolic 54–91; PULSE 60–88; RESP 10–30; TEMP 36.1–37.1; O2SAT 91–100
[2020-08-30] MEDS: methylPREDNISolone Sod Succ 125 MG/2 ML VIAL 30 MG IVPUSH ×2 (01:51→15:21)
[2020-08-30 05:41] LABS: MANUAL DIFF FLAG NO
[2020-08-30 05:47] LABS: VBG Base Excess 10.8 mmol/L; VBG HCO3 37 mmol/L (22-26); VBG pCO2 61 mmHg; VBG pH 7.39 (7.32-7.43); VBG pO2 47 mmHg
[2020-08-30 05:48] LABS: Basophils Percent Auto 0.1 % (0-2); Eosinophils Absolute Auto 0.3 X10*3/uL (0.0-0.4); Eosinophils Percent Auto 1.6 % (0-4); Hematocrit 29.3 % (37-47); Hemoglobin 9.3 g/dl (12.0-16.0); Imm Gran Abs Auto 0.66 X10*3/uL (0.00-0.03); Imm Gran Pct Auto 3.9 % (0.0-0.4); Lymphocytes Absolute Auto 0.8 X10*3/uL (1.2-4.9); Lymphocytes Percent Auto 4.6 % (20-40); Mean Corpuscular HGB Conc 31.7 g/dl (31.0-35.0); Mean Corpuscular Hemoglobin 27.4 pg (27.0-33.0); Mean Corpuscular Volume 86.2 fL (80-98); Mean Platelet Volume 10.1 fL (9.4-12.3); Monocytes Absolute Auto 0.6 X10*3/uL (0.1-1.2); Monocytes Percent Auto 3.6 % (2-11); Neutrophils Absolute Auto 14.5 X10*3/uL (2.0-8.3); Neutrophils Percent Auto 86.2 % (45-73); Platelet Count 241 X10*3/uL (160-400); Red Cell Distribution Width 14.9 % (11.0-16.0); White Blood Count 16.8 X10*3/uL (4.8-10.8)
[2020-08-30 05:55] LABS: INTERNATIONAL NORM RATIO 1.1 (0.9-1.1); Prothrombin Time 13.1 SEC (10.8-13.0)
[2020-08-30 05:57] LABS: Partial Thromboplastin Time 31.7 SEC (24.1-38.0); Venous Blood Gas Refer to POC result
[2020-08-30] MEDS: Levothyroxine Sodium 25 MCG TABLET PO (05:58)
[2020-08-30 06:09] LABS: B Type Natriuretic Peptide 693 pg/mL (<100)
[2020-08-30 06:10] LABS: Albumin Level 2.8 g/dL (3.5-5.0)
[2020-08-30 06:36] LABS: Blood Urea Nitrogen 107 mg/dL (9-16); Calcium 5.7 mg/dL (8.4-10.2); Creatinine Clr Calc Pharmacy 8.9; Estimated Glomerular Filt Rate 8; Glucose Random 194 mg/dL (60-115); Phosphorus 7.4 mg/dL (2.7-4.5)
[2020-08-30 06:47] LABS: Anion Gap 22 (12-20); Carbon Dioxide 32 mmol/L (22-29); Chloride 92 mmol/L (96-108); Potassium 3.4 mmol/L (3.3-5.1); Sodium 143 mmol/L (135-145)
[2020-08-30 07:20] LABS: Glucose, Whole Blood 213 mg/dL (60-115)
[2020-08-30] MEDS: Potassium Chloride Packet 20 MEQ PACKET PO (07:23)
[2020-08-30] MEDS: Insulin Lispro 100 UNIT/ML 3 ML VIAL SUBCUT ×4 (07:23→20:48)
[2020-08-30] MEDS: 0.9 % Sodium Chloride Flush 3 ML SYRINGE IVFLUSH ×3 (07:25→23:33)
[2020-08-30] MEDS: Calcium Gluconate/NaCl,Iso-Osm 1 GM/50 ML PLAST..BAG IV (07:25)
[2020-08-30] MEDS: Heparin Sodium,Porcine 5,000 UNIT/ML VIAL 5000 UNIT SUBCUT ×3 (08:46→23:36)
[2020-08-30] MEDS: amLODIPine Besylate 2.5 MG TABLET PO (08:46)
[2020-08-30] MEDS: Insulin Glargine,Hum.rec.anlog 100 UNIT/ML 10 ML VIAL 10 UNIT SUBCUT (08:46)
[2020-08-30] MEDS: Clopidogrel Bisulfate 75 MG TABLET PO (08:46)
[2020-08-30] MEDS: Venlafaxine HCl ER 37.5 MG CAP.ER.24H PO (08:46)
[2020-08-30] MEDS: Aspirin Enteric Coated 81 MG TABLET.DR PO (08:46)
[2020-08-30] MEDS: Cholecalciferol (Vitamin D3) 25 MCG TABLET PO (08:46)
--- NOTE | 2020-08-30 08:48 | PM.CCPN ---
Subjective Subjective Date of Service: 08/30/20 Interval History: 65-year-old female who presented with sepsis stemming from osteomyelitis of the left big toe with gas noted in the wound and she is a peripheral vasculopath due to insulin-dependent type 2 diabetes mellitus room and currently on ceftriaxone and doing clinically well remaining afebrile has since been extubated and the previous intubation probably based on ARDS which seems to be resolving and just simply needs source control with toe amputation but because of the rapidly progressive acute on chronic renal failure which might be a post infectious manifestation she continues to inch up in terms of her azotemia none and no particular metabolic complication and currently not fluid overloaded and she remains nonoliguric and we are awaiting the renal consultation to decide about at least temporary dialysis treatment Critical Care Time (minutes): 45 Physical Exam Vital Signs: Vital Signs: Last Vital Signs Temp 98.7 F 08/30/20 08:00 Pulse 75 08/30/20 08:00 Resp 30 H 08/30/20 08:00 BP 184/86 H 08/30/20 08:00 Pulse Ox 97 08/30/20 08:00 Body Mass Index 32.0 Const: Other: Awake and oriented and nonfocal neurologically Cardiac exam with stable CVP measurement no neck vein distension good bilateral carotid upstrokes Chest essentially clear no adventitious sounds Abdomen soft tolerating diet good bowel sounds and no organomegaly Clear dry gangrene of that left big toe Objective Data Labs CBC & Chem 7: 08/30/20 05:35 08/30/20 05:35 Labs: Laboratory Results - last 24 hr 08/25/20 08/26/20 08/26/20 04:46 13:11 17:29 WBC RBC Hgb Hct MCV MCH MCHC RDW Plt Count MPV Immature Gran % (Auto) Neut % (Auto) Lymph % (Auto) [place] % (Auto) Eos % (Auto) Baso % (Auto) Lymph # (Auto) [place] # (Auto) Eos # (Auto) Baso # (Auto) Abs Immat Gran (auto) Absolute Neuts (auto) Absolute Nucleated RBC Nucleated RBC % (auto) PT INR APTT VBG pH VBG pCO2 VBG pO2 VBG HCO3 VBG O2 Saturation VBG Base Excess Sodium Potassium Chloride Carbon Dioxide Anion Gap BUN Creatinine Estim Creat Clear Calc Estimated GFR POC Glucose Random Glucose Calcium Phosphorus B-Natriuretic Peptide Albumin GEORGE Titer TNP GEORGE Titer 2 TNP GEORGE Titer 3 TNP GEORGE Pattern TNP GEORGE Pattern 2 TNP GEORGE Pattern 3 TNP Proteinase 3 (PR3) Ab <1.0 Myeloperoxidase Ab <1.0 Glomerular Base Memb Ab <1.0 <1.0 08/29/20 08/29/20 08/29/20 11:33 16:42 21:12 WBC RBC Hgb Hct MCV MCH MCHC RDW Plt Count MPV Immature Gran % (Auto) Neut % (Auto) Lymph % (Auto) [place] % (Auto) Eos % (Auto) Baso % (Auto) Lymph # (Auto) [place] # (Auto) Eos # (Auto) Baso # (Auto) Abs Immat Gran (auto) Absolute Neuts (auto) Absolute Nucleated RBC Nucleated RBC % (auto) PT INR APTT VBG pH VBG pCO2 VBG pO2 VBG HCO3 VBG O2 Saturation VBG Base Excess Sodium Potassium Chloride Carbon Dioxide Anion Gap BUN Creatinine Estim Creat Clear Calc Estimated GFR POC Glucose 282 H 230 H 207 H Random Glucose Calcium Phosphorus B-Natriuretic Peptide Albumin GEORGE Titer GEORGE Titer 2 GEORGE Titer 3 GEORGE Pattern GEORGE Pattern 2 GEORGE Pattern 3 Proteinase 3 (PR3) Ab Myeloperoxidase Ab Glomerular Base Memb Ab 08/30/20 08/30/20 08/30/20 05:35 05:35 05:35 WBC 16.8 H RBC 3.40 L Hgb 9.3 L Hct 29.3 L MCV 86.2 MCH 27.4 MCHC 31.7 RDW 14.9 Plt Count 241 MPV 10.1 Immature Gran % (Auto) 3.9 H Neut % (Auto) 86.2 H Lymph % (Auto) 4.6 L [place] % (Auto) 3.6 Eos % (Auto) 1.6 Baso % (Auto) 0.1 Lymph # (Auto) 0.8 L [place] # (Auto) 0.6 Eos # (Auto) 0.3 Baso # (Auto) 0.0 Abs Immat Gran (auto) 0.66 H Absolute Neuts (auto) 14.5 H Absolute Nucleated RBC 0.000 Nucleated RBC % (auto) 0.0 PT 13.1 H INR 1.1 APTT 31.7 VBG pH VBG pCO2 VBG pO2 VBG HCO3 VBG O2 Saturation VBG Base Excess Sodium Potassium Chloride Carbon Dioxide Anion Gap BUN Creatinine Estim Creat Clear Calc Estimated GFR POC Glucose Random Glucose Calcium Phosphorus B-Natriuretic Peptide 693 H Albumin GEORGE Titer GEORGE Titer 2 GEORGE Titer 3 GEORGE Pattern GEORGE Pattern 2 GEORGE Pattern 3 Proteinase 3 (PR3) Ab Myeloperoxidase Ab Glomerular Base Memb Ab 08/30/20 08/30/20 08/30/20 05:35 05:35 05:39 WBC RBC Hgb Hct MCV MCH MCHC RDW Plt Count MPV Immature Gran % (Auto) Neut % (Auto) Lymph % (Auto) [place] % (Auto) Eos % (Auto) Baso % (Auto) Lymph # (Auto) [place] # (Auto) Eos # (Auto) Baso # (Auto) Abs Immat Gran (auto) Absolute Neuts (auto) Absolute Nucleated RBC Nucleated RBC % (auto) PT INR APTT VBG pH 7.39 VBG pCO2 61 VBG pO2 47 VBG HCO3 37 H VBG O2 Saturation 74.0 VBG Base Excess 10.8 Sodium 143 Potassium 3.4 Chloride 92 L Carbon Dioxide 32 H Anion Gap 22 H BUN 107 H* Creatinine 5.54 H* Estim Creat Clear Calc 8.9 Estimated GFR 8 POC Glucose Random Glucose 194 H D Calcium 5.7 L* D Phosphorus 7.4 H B-Natriuretic Peptide Albumin 2.8 L GEORGE Titer GEORGE Titer 2 GEORGE Titer 3 GEORGE Pattern GEORGE Pattern 2 GEORGE Pattern 3 Proteinase 3 (PR3) Ab Myeloperoxidase Ab Glomerular Base Memb Ab 08/30/20 07:17 WBC RBC Hgb Hct MCV MCH MCHC RDW Plt Count MPV Immature Gran % (Auto) Neut % (Auto) Lymph % (Auto) [place] % (Auto) Eos % (Auto) Baso % (Auto) Lymph # (Auto) [place] # (Auto) Eos # (Auto) Baso # (Auto) Abs Immat Gran (auto) Absolute Neuts (auto) Absolute Nucleated RBC Nucleated RBC % (auto) PT INR APTT VBG pH VBG pCO2 VBG pO2 VBG HCO3 VBG O2 Saturation VBG Base Excess Sodium Potassium Chloride Carbon Dioxide Anion Gap BUN Creatinine Estim Creat Clear Calc Estimated GFR POC Glucose 213 H Random Glucose Calcium Phosphorus B-Natriuretic Peptide Albumin GEORGE Titer GEORGE Titer 2 GEORGE Titer 3 GEORGE Pattern GEORGE Pattern 2 GEORGE Pattern 3 Proteinase 3 (PR3) Ab Myeloperoxidase Ab Glomerular Base Memb Ab Microbiology Microbiology Results: Microbiology 08/24/20 09:53 Blood - Venous Blood Culture - Final No growth after 5 days. 08/24/20 09:52 Blood - Venous Blood Culture - Final No growth after 5 days. 08/25/20 06:49 Sputum - Suctioned Gram Stain - Final 08/25/20 06:49 Sputum - Suctioned Sputum Culture - Final 08/18/20 16:15 Blood - Venous Blood Culture - Final No growth after 5 days. 08/18/20 16:15 Blood - Venous Blood Culture - Final No growth after 5 days. Progress Note: A&P Assessment and plan (1) Acute respiratory failure with hypoxemia: Status: Acute (2) Myoclonic seizures: Status: Acute (3) Metabolic encephalopathy: Status: Acute (4) CKD (chronic kidney disease): Status: Acute (5) Osteomyelitis of great toe of left foot: Status: Acute (6) Hypocalcemia: Status: Acute (7) MARY KATE (acute kidney injury): Status: Acute (8) Acute hypokalemia: Status: Acute (9) PAD (peripheral artery disease): Status: Acute (10) Hypocalcemia: Status: Acute (11) Acute kidney injury: Status: Acute Assessment and Plan: A at this point she has persistent and and potentially still worsening stage 5 renal failure without metabolic or volume overload complications and awaiting renal decision about possible temporary dialysis based on this being post infectious glomerulonephritis but will await their opinion and in addition is awaiting source control with left toe amputation which is the source of the original sepsis and otherwise will remain on the above antibiotics and dietary manipulation for her renal maintenance
--- NOTE | 2020-08-30 10:10 | P.PNNP_ITS ---
Subjective Subjective Date of Service: 08/30/20 Principal diagnosis: mary kate/ckd Interval history: Events noted Son at bedside Doing OK Physical Exam Vital Signs: Vital Signs: Last Vital Signs Temp 97.0 F 08/30/20 09:00 Pulse 82 08/30/20 09:00 Resp 15 08/30/20 09:00 BP 178/88 H 08/30/20 09:00 Pulse Ox 97 08/30/20 09:00 Body Mass Index 32.0 Const: General: awake Orientation/consciousness: oriented to person Neck: Neck: Yes supple Resp: Auscultation: rhonchi Cardio: Palpation: no palpable S3 Heart sounds: no rubs GI: Palpation (GI): Soft to palpation Auscultation: normal bowel sounds Neuro: General: oriented to person Motor exam (neuro): No Asterixis during motor activity present Objective Data Labs CBC & Chem 7: 08/30/20 05:35 08/30/20 05:35 Labs: Laboratory Results - last 24 hr 08/25/20 08/26/20 08/26/20 04:46 13:11 17:29 WBC RBC Hgb Hct MCV MCH MCHC RDW Plt Count MPV Immature Gran % (Auto) Neut % (Auto) Lymph % (Auto) [place] % (Auto) Eos % (Auto) Baso % (Auto) Lymph # (Auto) [place] # (Auto) Eos # (Auto) Baso # (Auto) Abs Immat Gran (auto) Absolute Neuts (auto) Absolute Nucleated RBC Nucleated RBC % (auto) PT INR APTT VBG pH VBG pCO2 VBG pO2 VBG HCO3 VBG O2 Saturation VBG Base Excess Sodium Potassium Chloride Carbon Dioxide Anion Gap BUN Creatinine Estim Creat Clear Calc Estimated GFR POC Glucose Random Glucose Calcium Phosphorus B-Natriuretic Peptide Albumin GEORGE Titer TNP GEORGE Titer 2 TNP GEORGE Titer 3 TNP GEORGE Pattern TNP GEORGE Pattern 2 TNP GEORGE Pattern 3 TNP Proteinase 3 (PR3) Ab <1.0 Myeloperoxidase Ab <1.0 Glomerular Base Memb Ab <1.0 <1.0 08/29/20 08/29/20 08/29/20 11:33 16:42 21:12 WBC RBC Hgb Hct MCV MCH MCHC RDW Plt Count MPV Immature Gran % (Auto) Neut % (Auto) Lymph % (Auto) [place] % (Auto) Eos % (Auto) Baso % (Auto) Lymph # (Auto) [place] # (Auto) Eos # (Auto) Baso # (Auto) Abs Immat Gran (auto) Absolute Neuts (auto) Absolute Nucleated RBC Nucleated RBC % (auto) PT INR APTT VBG pH VBG pCO2 VBG pO2 VBG HCO3 VBG O2 Saturation VBG Base Excess Sodium Potassium Chloride Carbon Dioxide Anion Gap BUN Creatinine Estim Creat Clear Calc Estimated GFR POC Glucose 282 H 230 H 207 H Random Glucose Calcium Phosphorus B-Natriuretic Peptide Albumin GEORGE Titer GEORGE Titer 2 GEORGE Titer 3 GEORGE Pattern GEORGE Pattern 2 GEORGE Pattern 3 Proteinase 3 (PR3) Ab Myeloperoxidase Ab Glomerular Base Memb Ab 08/30/20 08/30/20 08/30/20 05:35 05:35 05:35 WBC 16.8 H RBC 3.40 L Hgb 9.3 L Hct 29.3 L MCV 86.2 MCH 27.4 MCHC 31.7 RDW 14.9 Plt Count 241 MPV 10.1 Immature Gran % (Auto) 3.9 H Neut % (Auto) 86.2 H Lymph % (Auto) 4.6 L [place] % (Auto) 3.6 Eos % (Auto) 1.6 Baso % (Auto) 0.1 Lymph # (Auto) 0.8 L [place] # (Auto) 0.6 Eos # (Auto) 0.3 Baso # (Auto) 0.0 Abs Immat Gran (auto) 0.66 H Absolute Neuts (auto) 14.5 H Absolute Nucleated RBC 0.000 Nucleated RBC % (auto) 0.0 PT 13.1 H INR 1.1 APTT 31.7 VBG pH VBG pCO2 VBG pO2 VBG HCO3 VBG O2 Saturation VBG Base Excess Sodium Potassium Chloride Carbon Dioxide Anion Gap BUN Creatinine Estim Creat Clear Calc Estimated GFR POC Glucose Random Glucose Calcium Phosphorus B-Natriuretic Peptide 693 H Albumin GEORGE Titer GEORGE Titer 2 GEORGE Titer 3 GEORGE Pattern GEORGE Pattern 2 GEORGE Pattern 3 Proteinase 3 (PR3) Ab Myeloperoxidase Ab Glomerular Base Memb Ab 08/30/20 08/30/20 08/30/20 05:35 05:35 05:39 WBC RBC Hgb Hct MCV MCH MCHC RDW Plt Count MPV Immature Gran % (Auto) Neut % (Auto) Lymph % (Auto) [place] % (Auto) Eos % (Auto) Baso % (Auto) Lymph # (Auto) [place] # (Auto) Eos # (Auto) Baso # (Auto) Abs Immat Gran (auto) Absolute Neuts (auto) Absolute Nucleated RBC Nucleated RBC % (auto) PT INR APTT VBG pH 7.39 VBG pCO2 61 VBG pO2 47 VBG HCO3 37 H VBG O2 Saturation 74.0 VBG Base Excess 10.8 Sodium 143 Potassium 3.4 Chloride 92 L Carbon Dioxide 32 H Anion Gap 22 H BUN 107 H* Creatinine 5.54 H* Estim Creat Clear Calc 8.9 Estimated GFR 8 POC Glucose Random Glucose 194 H D Calcium 5.7 L* D Phosphorus 7.4 H B-Natriuretic Peptide Albumin 2.8 L GEORGE Titer GEORGE Titer 2 GEORGE Titer 3 GEORGE Pattern GEORGE Pattern 2 GEORGE Pattern 3 Proteinase 3 (PR3) Ab Myeloperoxidase Ab Glomerular Base Memb Ab 08/30/20 07:17 WBC RBC Hgb Hct MCV MCH MCHC RDW Plt Count MPV Immature Gran % (Auto) Neut % (Auto) Lymph % (Auto) [place] % (Auto) Eos % (Auto) Baso % (Auto) Lymph # (Auto) [place] # (Auto) Eos # (Auto) Baso # (Auto) Abs Immat Gran (auto) Absolute Neuts (auto) Absolute Nucleated RBC Nucleated RBC % (auto) PT INR APTT VBG pH VBG pCO2 VBG pO2 VBG HCO3 VBG O2 Saturation VBG Base Excess Sodium Potassium Chloride Carbon Dioxide Anion Gap BUN Creatinine Estim Creat Clear Calc Estimated GFR POC Glucose 213 H Random Glucose Calcium Phosphorus B-Natriuretic Peptide Albumin GEORGE Titer GEORGE Titer 2 GEORGE Titer 3 GEORGE Pattern GEORGE Pattern 2 GEORGE Pattern 3 Proteinase 3 (PR3) Ab Myeloperoxidase Ab Glomerular Base Memb Ab Microbiology Microbiology Results: Microbiology 08/24/20 09:53 Blood - Venous Blood Culture - Final No growth after 5 days. 08/24/20 09:52 Blood - Venous Blood Culture - Final No growth after 5 days. 08/25/20 06:49 Sputum - Suctioned Gram Stain - Final 08/25/20 06:49 Sputum - Suctioned Sputum Culture - Final 08/18/20 16:15 Blood - Venous Blood Culture - Final No growth after 5 days. 08/18/20 16:15 Blood - Venous Blood Culture - Final No growth after 5 days. Assessment & Plan Assessment and plan (1) Metabolic encephalopathy: Status: Acute (2) MARY KATE (acute kidney injury): Status: Acute Assessment and Plan: 1. MARY KATE: cont incr SCR and c/w new ischemic ATN hit; given markedly abnl CXR and ques of pulm hem ANCA - normal. 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 no hypotension pre-renal despite FENa > 1% CAROL/IRD and ques chol emboli: all definite poss given severity of ASVD No Obs by renal U/s 2. CKD 4: bsl SCr 2.0: most c/w DN/HTN renal dis 3. AMS: suspect med pregabapentin playing signif role : Improved 4. HypoCa: decr CA further d/t decr alb 5. AGMA/NAGMA: resolved with IV NaHCO3 6. Impressive CXR abbnl and yet O2 requirements minimal --no A-a gradient; CHF vs ARDS Currently non oliguric No overt s/s of uremia no absolute indication for dialysis yet Continue to keep O > I Needs kidney biopsy for definitive diagnosis Time Spent With Patient Time: Total time spent is greater than 50% in coordination of care (as documented) at patient's floor/unit and/or counseling patient: Procedures Date of Service Date of Service: 08/30/20
[2020-08-30 11:23] LABS: Glucose, Whole Blood 246 mg/dL (60-115)
[2020-08-30] MEDS: cilostazoL 100 MG TABLET PO ×2 (11:51→20:29)
[2020-08-30] MEDS: Sevelamer Carbonate Tablet 800 MG TABLET PO ×2 (11:51→17:03)
[2020-08-30] MEDS: Chlorhexidine Gluc Oral Rinse 15 ML MOUTHWASH BUCCAL (15:21)
[2020-08-30 16:27] LABS: Glucose, Whole Blood 186 mg/dL (60-115)
[2020-08-30] MEDS: Metoprolol Tartrate 5 MG/5 ML VIAL IVPUSH (20:27)
[2020-08-30] MEDS: cefTRIAXone sodium 1 GM in 0.9 % Sodium Chloride 50 ML IV (20:28)
[2020-08-30] MEDS: Atorvastatin Calcium 80 MG TABLET PO (20:29)
[2020-08-30] MEDS: Montelukast Sodium 10 MG TABLET PO (20:29)
[2020-08-30 20:48] LABS: Glucose, Whole Blood 201 mg/dL (60-115)
[2020-08-31] VITALS (23 sets, daily range): BP systolic 132–189; BP diastolic 61–95; PULSE 63–102; RESP 8–97; TEMP 35.7–37.1; O2SAT 90–97
[2020-08-31] MEDS: methylPREDNISolone Sod Succ 125 MG/2 ML VIAL 30 MG IVPUSH (02:07)
[2020-08-31 05:30] LABS: MANUAL DIFF FLAG NO
[2020-08-31 05:32] LABS: Basophils Percent Auto 0.2 % (0-2); Eosinophils Absolute Auto 0.1 X10*3/uL (0.0-0.4); Eosinophils Percent Auto 0.8 % (0-4); Hematocrit 28.7 % (37-47); Hemoglobin 9.1 g/dl (12.0-16.0); Imm Gran Abs Auto 0.34 X10*3/uL (0.00-0.03); Imm Gran Pct Auto 2.6 % (0.0-0.4); Lymphocytes Absolute Auto 0.7 X10*3/uL (1.2-4.9); Lymphocytes Percent Auto 5.7 % (20-40); Mean Corpuscular HGB Conc 31.7 g/dl (31.0-35.0); Mean Corpuscular Hemoglobin 27.2 pg (27.0-33.0); Mean Corpuscular Volume 85.7 fL (80-98); Mean Platelet Volume 10.4 fL (9.4-12.3); Monocytes Absolute Auto 0.4 X10*3/uL (0.1-1.2); Monocytes Percent Auto 3.1 % (2-11); Neutrophils Absolute Auto 11.4 X10*3/uL (2.0-8.3); Neutrophils Percent Auto 87.6 % (45-73); Platelet Count 226 X10*3/uL (160-400); Red Blood Count 3.35 X10*6/uL (4.20-5.50); Red Cell Distribution Width 14.7 % (11.0-16.0)
[2020-08-31 05:35] LABS: VBG Base Excess 11.4 mmol/L; VBG HCO3 38 mmol/L (22-26); VBG pCO2 60 mmHg; VBG pO2 62 mmHg
[2020-08-31 05:38] LABS: INTERNATIONAL NORM RATIO 1.1 (0.9-1.1); Prothrombin Time 13.5 SEC (10.8-13.0)
[2020-08-31 05:39] LABS: Venous Blood Gas Refer to POC result
[2020-08-31 05:41] LABS: Partial Thromboplastin Time 42.1 SEC (24.1-38.0)
[2020-08-31 06:18] LABS: Albumin Level 2.8 g/dL (3.5-5.0)
[2020-08-31] MEDS: Levothyroxine Sodium 25 MCG TABLET PO (06:19)
[2020-08-31 06:34] LABS: Anion Gap 18 (12-20); Blood Urea Nitrogen 102 mg/dL (9-16); Calcium 5.5 mg/dL (8.4-10.2); Carbon Dioxide 36 mmol/L (22-29); Chloride 91 mmol/L (96-108); Creatinine Clr Calc Pharmacy 9.5; Estimated Glomerular Filt Rate 8; Glucose Random 167 mg/dL (60-115); Magnesium 2.1 mg/dL (1.6-2.6); Phosphorus 6.8 mg/dL (2.7-4.5); Potassium 3.5 mmol/L (3.3-5.1); Sodium 141 mmol/L (135-145)
[2020-08-31 07:12] LABS: Glucose, Whole Blood 176 mg/dL (60-115)
[2020-08-31] MEDS: Insulin Lispro 100 UNIT/ML 3 ML VIAL SUBCUT ×4 (08:36→21:10)
[2020-08-31] MEDS: Insulin Glargine,Hum.rec.anlog 100 UNIT/ML 10 ML VIAL 10 UNIT SUBCUT (08:38)
[2020-08-31] MEDS: Heparin Sodium,Porcine 5,000 UNIT/ML VIAL 5000 UNIT SUBCUT ×2 (08:39→18:02)
[2020-08-31] MEDS: Sevelamer Carbonate Tablet 800 MG TABLET PO ×3 (08:40→18:02)
[2020-08-31] MEDS: 0.9 % Sodium Chloride Flush 3 ML SYRINGE IVFLUSH ×2 (08:40→13:18)
[2020-08-31] MEDS: Cholecalciferol (Vitamin D3) 25 MCG TABLET PO (08:41)
[2020-08-31] MEDS: Aspirin Enteric Coated 81 MG TABLET.DR PO (08:41)
[2020-08-31] MEDS: Clopidogrel Bisulfate 75 MG TABLET PO (08:45)
[2020-08-31] MEDS: Venlafaxine HCl ER 37.5 MG CAP.ER.24H PO (08:45)
[2020-08-31] MEDS: amLODIPine Besylate 2.5 MG TABLET PO (08:46)
--- NOTE | 2020-08-31 09:05 | PM.CCPN ---
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 and for the 1st time today BUN and creatinine started to turn down and creatinine down from 5.9 to 5.2 with progressively increasing urinary volume at no evidence of fluid overload no significant 3rd space fluid not quite uremic and no particular metabolic disarray except total calcium still low calculated ionized calcium still low and just replacing that on a daily basis but at this point it looks like we will avoid the need for dialysis and respiratory status being repaired and improving daily a surgical date is being set up for amputation of the toe to finalize our source control Critical Care Time (minutes): 25 Physical Exam Vital Signs: Vital Signs: Last Vital Signs Temp 97.8 F 08/31/20 07:00 Pulse 83 08/31/20 08:46 Resp 18 08/31/20 08:00 BP 179/94 H 08/31/20 08:46 Pulse Ox 94 08/31/20 08:00 Body Mass Index 32.0 Const: Other: Awake alert and oriented x3 and nonfocal neurologic Melisa Stable CVP and no neck vein distension with good bilateral carotid upstrokes no gallops Lungs clear with no adventitious sounds Abdomen benign soft no organomegaly Skin intact Objective Data Labs CBC & Chem 7: 08/31/20 05:18 08/31/20 05:18 Labs: Laboratory Results - last 24 hr 08/30/20 08/30/20 08/30/20 11:17 16:23 20:32 WBC RBC Hgb Hct MCV MCH MCHC RDW Plt Count MPV Immature Gran % (Auto) Neut % (Auto) Lymph % (Auto) [facility] % (Auto) Eos % (Auto) Baso % (Auto) Lymph # (Auto) [facility] # (Auto) Eos # (Auto) Baso # (Auto) Abs Immat Gran (auto) Absolute Neuts (auto) Absolute Nucleated RBC Nucleated RBC % (auto) PT INR APTT VBG pH VBG pCO2 VBG pO2 VBG HCO3 VBG O2 Saturation VBG Base Excess Sodium Potassium Chloride Carbon Dioxide Anion Gap BUN Creatinine Estim Creat Clear Calc Estimated GFR POC Glucose 246 H 186 H 201 H Random Glucose Calcium Phosphorus Magnesium Albumin 08/31/20 08/31/20 08/31/20 05:18 05:18 05:18 WBC 13.0 H RBC 3.35 L Hgb 9.1 L Hct 28.7 L MCV 85.7 MCH 27.2 MCHC 31.7 RDW 14.7 Plt Count 226 MPV 10.4 Immature Gran % (Auto) 2.6 H Neut % (Auto) 87.6 H Lymph % (Auto) 5.7 L [facility] % (Auto) 3.1 Eos % (Auto) 0.8 Baso % (Auto) 0.2 Lymph # (Auto) 0.7 L [facility] # (Auto) 0.4 Eos # (Auto) 0.1 Baso # (Auto) 0.0 Abs Immat Gran (auto) 0.34 H Absolute Neuts (auto) 11.4 H Absolute Nucleated RBC 0.000 Nucleated RBC % (auto) 0.0 PT 13.5 H INR 1.1 APTT 42.1 H D VBG pH VBG pCO2 VBG pO2 VBG HCO3 VBG O2 Saturation VBG Base Excess Sodium 141 Potassium 3.5 Chloride 91 L Carbon Dioxide 36 H Anion Gap 18 BUN 102 H* Creatinine 5.22 H* Estim Creat Clear Calc 9.5 Estimated GFR 8 POC Glucose Random Glucose 167 H Calcium 5.5 L* Phosphorus 6.8 H Magnesium 2.1 Albumin 08/31/20 08/31/20 08/31/20 05:18 05:28 07:05 WBC RBC Hgb Hct MCV MCH MCHC RDW Plt Count MPV Immature Gran % (Auto) Neut % (Auto) Lymph % (Auto) [facility] % (Auto) Eos % (Auto) Baso % (Auto) Lymph # (Auto) [facility] # (Auto) Eos # (Auto) Baso # (Auto) Abs Immat Gran (auto) Absolute Neuts (auto) Absolute Nucleated RBC Nucleated RBC % (auto) PT INR APTT VBG pH 7.40 VBG pCO2 60 VBG pO2 62 VBG HCO3 38 H VBG O2 Saturation 86.0 VBG Base Excess 11.4 Sodium Potassium Chloride Carbon Dioxide Anion Gap BUN Creatinine Estim Creat Clear Calc Estimated GFR POC Glucose 176 H Random Glucose Calcium Phosphorus Magnesium Albumin 2.8 L Microbiology Microbiology Results: Microbiology 08/24/20 09:53 Blood - Venous Blood Culture - Final No growth after 5 days. 08/24/20 09:52 Blood - Venous Blood Culture - Final No growth after 5 days. 08/25/20 06:49 Sputum - Suctioned Gram Stain - Final 08/25/20 06:49 Sputum - Suctioned Sputum Culture - Final 08/18/20 16:15 Blood - Venous Blood Culture - Final No growth after 5 days. 08/18/20 16:15 Blood - Venous Blood Culture - Final No growth after 5 days. Progress Note: A&P Assessment and plan (1) Acute respiratory failure with hypoxemia: Status: Acute (2) Myoclonic seizures: Status: Acute (3) Metabolic encephalopathy: Status: Acute (4) CKD (chronic kidney disease): Status: Acute (5) Osteomyelitis of great toe of left foot: Status: Acute (6) Hypocalcemia: Status: Acute (7) MARY KATE (acute kidney injury): Status: Acute (8) Acute hypokalemia: Status: Acute (9) PAD (peripheral artery disease): Status: Acute (10) Hypocalcemia: Status: Acute (11) Acute kidney injury: Status: Acute Assessment and Plan: So we are status post sepsis probably multi organism stemming from osteomyelitis left big toe which is on an ischemic basis and pending scheduled amputation of the toe for source control and for now we will will remain on ceftriaxone as she is clinically improving continue to treat renal insufficiency expectantly because it seems to be reversing itself and no need for dialysis at this time so safe to transfer to the floor and continuing to gently replace calcium deficit
--- NOTE | 2020-08-31 10:01 | HO.VASCPN ---
Subjective Subjective Date of Service: 08/31/20 Patient reports: no new complaints and feels better Interval history: Patient seen and examined. She has had significant improvement during her ICU stay. She is much more coherent upon discussion this morning. She is now for follow-up regarding left great toe. Physical Exam Vital Signs: Vital Signs: Last Vital Signs Temp 98.7 F 08/31/20 09:00 Pulse 71 08/31/20 09:00 Resp 20 08/31/20 09:00 BP 174/82 H 08/31/20 09:00 Pulse Ox 90 L 08/31/20 09:00 Body Mass Index 32.0 Const: General: cooperative, healthy appearing and no acute distress Orientation/consciousness: oriented to person, oriented to place and oriented to time HENMT: Head: Yes normal to inspection Neck: Carotids: no bruits Chest: Chest palpation & inspection: normal inspection of the chest Resp: Effort & Inspection: normal respiratory effort and able to speak in complete sentences Auscultation: clear to auscultation bilaterally Cardio: Rate: regular rate Heart sounds: S1 normal heart sound present and S2 normal heart sound present GI: Inspection: Yes normal to inspection Skin: General skin exam: no rashes or lesions noted Wounds: wounds noted (Left great toe gangrene) Neuro: General: oriented to person, oriented to place, oriented to time and CN's II-XI intact bilaterally Extrem: General: Yes normal to inspection, Yes full ROM and Yes no clubbing, cyanosis or edema Psych: Appearance: grossly normal and well kempt Speech and movement: Normal speech and movement present Affect: normal affect Progress Note: A&P Assessment and plan (1) Osteomyelitis of great toe of left foot: Status: Acute Assessment and Plan: In short patient has gangrene of left great toe. It appears that she has stabilized. I had a discussion with the case briefer team who reports that she is stable for operative intervention. I will schedule her for left great toe amputation. Risks benefits complications were discussed in detail with the patient. She demonstrated a clear understanding and was in agreement. Thank you for allowing us to assist in her care. Fall Risk Details Current Medications: Current Medications Generic Name Dose Route Start Last Admin Trade Name Freq PRN Reason Stop Dose Admin Acetaminophen/Codeine Phosphate 2 tab 08/28/20 09:55 08/29/20 08:16 Acetaminophen With Codeine # 3 Tablet PO 2 tab Q6H PRN Administration toe pain Amlodipine Besylate 2.5 mg 08/28/20 14:00 08/31/20 08:46 Amlodipine Besylate 2.5 Mg Tablet PO 2.5 mg DAILY JOEL Administration Protocol Aspirin 81 mg 08/29/20 09:00 08/31/20 08:41 Aspirin Enteric Coated 81 Mg Tablet.Dr PO 81 mg DAILY JOEL Administration Atorvastatin Calcium 80 mg 08/28/20 21:00 08/30/20 20:29 Atorvastatin Calcium 80 Mg Tablet PO 80 mg BEDTIME JOEL Administration Cilostazol 100 mg 08/28/20 21:00 08/30/20 20:29 Cilostazol 100 Mg Tablet PO 100 mg BID@1200,2100 JOEL Administration Clopidogrel Bisulfate 75 mg 08/29/20 09:00 08/31/20 08:45 Clopidogrel Bisulfate 75 Mg Tablet PO 75 mg DAILY JOEL Administration Heparin Sodium (Porcine) 5,000 unit 08/26/20 08:00 08/31/20 08:39 Heparin Sodium,Porcine 5,000 Unit/Ml Vial SUBCUT 5,000 unit Q8H JOEL Administration Hydromorphone HCl 0.5 mg 08/27/20 15:55 08/28/20 19:38 Hydromorphone Hcl 0.5 Mg/0.5 Ml Syringe IVPUSH 0.5 mg Q1H PRN Administration mild pain Hydromorphone HCl 1 mg 08/27/20 15:56 Hydromorphone Hcl 1 Mg/Ml Syringe IVPUSH Q2H PRN moderate pain Ceftriaxone Sodium 1 gm/ 50 mls @ 100 mls/hr 08/26/20 20:00 08/30/20 21:29 Sodium Chloride IV Infused Q24H [facility] Infusion Insulin Glargine 10 unit 08/29/20 10:30 08/31/20 08:38 Insulin Glargine,Hum.Rec.Anlog 100 Unit/Ml 10 Ml Vial SUBCUT 10 unit DAILY [facility] Administration Insulin Human Lispro 0 unit 08/28/20 16:30 08/31/20 08:36 Insulin Lispro 100 Unit/Ml 3 Ml Vial SUBCUT 2 unit QIDACHS [facility]1983 Administration Protocol Levothyroxine Sodium 25 mcg 08/29/20 06:00 08/31/20 06:19 Levothyroxine Sodium 25 Mcg Tablet PO 25 mcg DAILY@0600 JOEL Administration Montelukast Sodium 10 mg 08/19/20 21:00 08/30/20 20:29 Montelukast Sodium 10 Mg Tablet PO 10 mg BEDTIME JOEL Administration Sevelamer Carbonate 800 mg 08/30/20 12:00 08/31/20 08:40 Sevelamer Carbonate Tablet 800 Mg Tablet PO 800 mg TIDWM JOEL Administration Sodium Chloride 3 ml 08/19/20 00:00 08/31/20 08:40 0.9 % Sodium Chloride Flush 3 Ml Syringe IVFLUSH 3 ml QSHIFT JOEL Administration Venlafaxine HCl 37.5 mg 08/29/20 09:00 08/31/20 08:45 Venlafaxine Hcl Er 37.5 Mg Cap.Er.24h PO 37.5 mg DAILY JOEL Administration Vitamin D 25 mcg 08/30/20 09:00 08/31/20 08:41 Cholecalciferol (Vitamin D3) 25 Mcg Tablet PO 25 mcg DAILY JOEL Administration Time Spent With Patient Time: Total time spent is greater than 50% in coordination of care (as documented) at patient's floor/unit and/or counseling patient: Time with patient: 25 - 35 minutes Progress Note: Quality Stroke Does the patient have a stroke diagnosis?: No VTE Prior VTE?: No VTE Risk Level:: Medical - low VTE Device Contraindication: N/A - Device Ordered VTE Drug Contraindication: N/A - Med Ordered Procedures Date of Service Date of Service: 08/31/20
--- NOTE | 2020-08-31 10:15 | P.PNNP_ITS ---
Subjective Subjective Date of Service: 09/01/20 Principal diagnosis: mary kate/ckd Interval history: Events noted Physical Exam Vital Signs: Vital Signs: Last Vital Signs Temp 98.7 F 08/31/20 09:00 Pulse 69 08/31/20 10:00 Resp 18 08/31/20 10:00 BP 167/76 H 08/31/20 10:00 Pulse Ox 96 08/31/20 10:00 Body Mass Index 32.0 Const: General: awake Orientation/consciousness: oriented to person Neck: Neck: Yes supple Resp: Auscultation: rhonchi Cardio: Palpation: no palpable S3 Heart sounds: no rubs GI: Palpation (GI): Soft to palpation Auscultation: normal bowel sounds Neuro: General: oriented to person Motor exam (neuro): No Asterixis during motor activity present Objective Data Labs CBC & Chem 7: 09/01/20 06:50 08/31/20 05:18 Labs: Laboratory Results - last 24 hr 08/30/20 08/30/20 08/30/20 11:17 16:23 20:32 WBC RBC Hgb Hct MCV MCH MCHC RDW Plt Count MPV Immature Gran % (Auto) Neut % (Auto) Lymph % (Auto) [place] % (Auto) Eos % (Auto) Baso % (Auto) Lymph # (Auto) [place] # (Auto) Eos # (Auto) Baso # (Auto) Abs Immat Gran (auto) Absolute Neuts (auto) Absolute Nucleated RBC Nucleated RBC % (auto) PT INR APTT VBG pH VBG pCO2 VBG pO2 VBG HCO3 VBG O2 Saturation VBG Base Excess Sodium Potassium Chloride Carbon Dioxide Anion Gap BUN Creatinine Estim Creat Clear Calc Estimated GFR POC Glucose 246 H 186 H 201 H Random Glucose Calcium Phosphorus Magnesium Albumin 08/31/20 08/31/20 08/31/20 05:18 05:18 05:18 WBC 13.0 H RBC 3.35 L Hgb 9.1 L Hct 28.7 L MCV 85.7 MCH 27.2 MCHC 31.7 RDW 14.7 Plt Count 226 MPV 10.4 Immature Gran % (Auto) 2.6 H Neut % (Auto) 87.6 H Lymph % (Auto) 5.7 L [place] % (Auto) 3.1 Eos % (Auto) 0.8 Baso % (Auto) 0.2 Lymph # (Auto) 0.7 L [place] # (Auto) 0.4 Eos # (Auto) 0.1 Baso # (Auto) 0.0 Abs Immat Gran (auto) 0.34 H Absolute Neuts (auto) 11.4 H Absolute Nucleated RBC 0.000 Nucleated RBC % (auto) 0.0 PT 13.5 H INR 1.1 APTT 42.1 H D VBG pH VBG pCO2 VBG pO2 VBG HCO3 VBG O2 Saturation VBG Base Excess Sodium 141 Potassium 3.5 Chloride 91 L Carbon Dioxide 36 H Anion Gap 18 BUN 102 H* Creatinine 5.22 H* Estim Creat Clear Calc 9.5 Estimated GFR 8 POC Glucose Random Glucose 167 H Calcium 5.5 L* Phosphorus 6.8 H Magnesium 2.1 Albumin 08/31/20 08/31/20 08/31/20 05:18 05:28 07:05 WBC RBC Hgb Hct MCV MCH MCHC RDW Plt Count MPV Immature Gran % (Auto) Neut % (Auto) Lymph % (Auto) [place] % (Auto) Eos % (Auto) Baso % (Auto) Lymph # (Auto) [place] # (Auto) Eos # (Auto) Baso # (Auto) Abs Immat Gran (auto) Absolute Neuts (auto) Absolute Nucleated RBC Nucleated RBC % (auto) PT INR APTT VBG pH 7.40 VBG pCO2 60 VBG pO2 62 VBG HCO3 38 H VBG O2 Saturation 86.0 VBG Base Excess 11.4 Sodium Potassium Chloride Carbon Dioxide Anion Gap BUN Creatinine Estim Creat Clear Calc Estimated GFR POC Glucose 176 H Random Glucose Calcium Phosphorus Magnesium Albumin 2.8 L Microbiology Microbiology Results: Microbiology 08/24/20 09:53 Blood - Venous Blood Culture - Final No growth after 5 days. 08/24/20 09:52 Blood - Venous Blood Culture - Final No growth after 5 days. 08/25/20 06:49 Sputum - Suctioned Gram Stain - Final 08/25/20 06:49 Sputum - Suctioned Sputum Culture - Final 08/18/20 16:15 Blood - Venous Blood Culture - Final No growth after 5 days. 08/18/20 16:15 Blood - Venous Blood Culture - Final No growth after 5 days. Assessment & Plan Assessment and plan (1) Metabolic encephalopathy: Status: Acute (2) MARY KATE (acute kidney injury): Status: Acute Assessment and Plan: 1. MARY KATE: cont incr SCR and c/w new ischemic ATN hit; given markedly abnl CXR and ques of pulm hem ANCA - normal. 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 no hypotension pre-renal despite FENa > 1% CAROL/IRD and ques chol emboli: all definite poss given severity of ASVD No Obs by renal U/s 2. CKD 4: bsl SCr 2.0: most c/w DN/HTN renal dis 3. AMS: suspect med pregabapentin playing signif role : Improved 4. HypoCa: decr CA further d/t decr alb 5. AGMA/NAGMA: resolved with IV NaHCO3 6. Impressive CXR abbnl and yet O2 requirements minimal --no A-a gradient; CHF vs ARDS Currently non oliguric No overt s/s of uremia no absolute indication for dialysis yet Continue to keep O > I Needs kidney biopsy for definitive diagnosis Time Spent With Patient Time: Total time spent is greater than 50% in coordination of care (as documented) at patient's floor/unit and/or counseling patient: Procedures Date of Service Date of Service: 08/31/20
[2020-08-31] MEDS: Calcium Gluconate/NaCl,Iso-Osm 1 GM/50 ML PLAST..BAG IV (10:29)
[2020-08-31] MEDS: Milk of Magnesia 30 ML ORAL.SUSP PO (10:29)
[2020-08-31] MEDS: bisacodyL 10 MG SUPP.RECT PR (10:30)
[2020-08-31 11:19] LABS: Glucose, Whole Blood 216 mg/dL (60-115)
--- NOTE | 2020-08-31 11:51 | MHC.CM.PN ---
Patient currently in ICU but will be transferred to S3. Patient's original discharge plan is return home with [facility] and possibly IV antibiotics. Continue to monitor for d/c needs.
[2020-08-31] MEDS: cilostazoL 100 MG TABLET PO ×2 (13:14→21:10)
[2020-08-31 17:24] LABS: Glucose, Whole Blood 180 mg/dL (60-115)
--- NOTE | 2020-08-31 19:13 | PC.NURSE ---
Assumed care at 07:00. Patient alert and oriented, OOB to chair; OOB to commode; 2 max assist with rolling walker, also used wheelchair. Was weaned off 1 lpm to room air with good effect; spo2 in high 90's%, lung sounds quite dim at bilateral bases; worked with IS today and got to 850 ccs; goal is 1650; also cough and deep breathe with good effect and good teachback. CVP was 4 this morning, BP was elevated 150's at rest and 170-180 with exertion today; continuing to monitor. Denied pain today. Left great toe was necrotic and bled a small amount from dorsal aspect of left great toe, and a nonadherent gauze and kerlix dressing was applied. Some nausea reported, MD notified, but patient also with prolonged QTc interval: 500 this morning and 468 ms this afternoon. Otherwise patient is in sinus rhythm with occasional PACs. Patient ate well, 75% and 50% of meals, POC was slightly elevated, covered per emar. Patient afebrile. Reported constipation this morning, notified, new orders for MOM and for [place] ducolax administered with good effect, large formed dark brown BM. Report given to ARELIS Camacho upstairs, and Kirsten carbon electrodes supervisor facilitated transfer via wheelchair.
[2020-08-31] MEDS: cefTRIAXone sodium 1 GM in 0.9 % Sodium Chloride 50 ML IV (19:54)
[2020-08-31 20:22] LABS: Glucose, Whole Blood 164 mg/dL (60-115)
[2020-08-31] MEDS: Atorvastatin Calcium 80 MG TABLET PO (21:10)
[2020-08-31] MEDS: Montelukast Sodium 10 MG TABLET PO (21:10)
[2020-09-01] VITALS (7 sets, daily range): BP systolic 133–182; BP diastolic 64–92; PULSE 73–87; RESP 16–18; TEMP 36–36.9; O2SAT 93–97
[2020-09-01] MEDS: Heparin Sodium,Porcine 5,000 UNIT/ML VIAL 5000 UNIT SUBCUT ×2 (01:13→17:16)
[2020-09-01] MEDS: Levothyroxine Sodium 25 MCG TABLET PO (05:31)
[2020-09-01] MEDS: HYDROmorphone HCl 0.5 MG/0.5 ML SYRINGE IVPUSH (05:39)
[2020-09-01 06:59] LABS: MANUAL DIFF FLAG NO
[2020-09-01 07:06] LABS: VBG Base Excess 14.5 mmol/L; VBG HCO3 40 mmol/L (22-26); VBG pCO2 58 mmHg; VBG pH 7.44 (7.32-7.43); VBG pO2 54 mmHg
[2020-09-01 07:06] LABS: Venous Blood Gas Refer to POC result
[2020-09-01 07:08] LABS: Basophils Percent Auto 0.2 % (0-2); Eosinophils Absolute Auto 0.6 X10*3/uL (0.0-0.4); Eosinophils Percent Auto 4.3 % (0-4); Hematocrit 27.9 % (37-47); Hemoglobin 8.7 g/dl (12.0-16.0); Imm Gran Abs Auto 0.19 X10*3/uL (0.00-0.03); Imm Gran Pct Auto 1.4 % (0.0-0.4); Lymphocytes Absolute Auto 1.4 X10*3/uL (1.2-4.9); Lymphocytes Percent Auto 10.3 % (20-40); Mean Corpuscular HGB Conc 31.2 g/dl (31.0-35.0); Mean Corpuscular Hemoglobin 26.9 pg (27.0-33.0); Mean Corpuscular Volume 86.4 fL (80-98); Mean Platelet Volume 10.8 fL (9.4-12.3); Monocytes Absolute Auto 0.9 X10*3/uL (0.1-1.2); Monocytes Percent Auto 6.8 % (2-11); Neutrophils Absolute Auto 10.3 X10*3/uL (2.0-8.3); Platelet Count 205 X10*3/uL (160-400); Red Blood Count 3.23 X10*6/uL (4.20-5.50); Red Cell Distribution Width 14.8 % (11.0-16.0); White Blood Count 13.3 X10*3/uL (4.8-10.8)
[2020-09-01 07:10] LABS: INTERNATIONAL NORM RATIO 1.1 (0.9-1.1); Prothrombin Time 13.2 SEC (10.8-13.0)
[2020-09-01 07:12] LABS: Partial Thromboplastin Time 35.6 SEC (24.1-38.0)
[2020-09-01 07:32] LABS: Glucose, Whole Blood 135 mg/dL (60-115)
[2020-09-01 07:37] LABS: Albumin Level 2.6 g/dL (3.5-5.0)
--- NOTE | 2020-09-01 08:11 | P.PNIM_ITS ---
Subjective Subjective Date of Service: 09/02/20 Interval History: left foot osteo,mary kate on ckd Review of Systems Patient says her shortness of breath seems to be improved, denies any chest pain or abdominal pain fever or chills or phlegm Says has some dry cough Physical Exam Vital Signs: Vital Signs: Last Vital Signs Temp 96.8 F 09/01/20 07:27 Pulse 80 09/01/20 07:27 Resp 18 09/01/20 07:27 BP 149/78 H 09/01/20 07:27 Pulse Ox 94 09/01/20 07:27 Body Mass Index 32.0 Physical exam: Constitutional: Not in acute distress. Cvs: rrr, [id number] . res: grossly fair air entry , slightly diminshed at bases, no rales or wheezing abd: no rebound or guarding ,nt, bs present. ext pulses present , no cyanosis neuro: axo3 , nonfocal. EXt: left toe area has dressing , no erythema or flacutation or discharge Objective Data Current Medications Generic Name Dose Route Start Last Admin Trade Name Freq PRN Reason Stop Dose Admin Acetaminophen/Codeine Phosphate 2 tab 08/28/20 09:55 08/29/20 08:16 Acetaminophen With Codeine # 3 Tablet PO 2 tab Q6H PRN Administration toe pain Amlodipine Besylate 2.5 mg 08/28/20 14:00 08/31/20 08:46 Amlodipine Besylate 2.5 Mg Tablet PO 2.5 mg DAILY JOEL Administration Protocol Aspirin 81 mg 08/29/20 09:00 08/31/20 08:41 Aspirin Enteric Coated 81 Mg Tablet.Dr PO 81 mg DAILY JOEL Administration Atorvastatin Calcium 80 mg 08/28/20 21:00 08/31/20 21:10 Atorvastatin Calcium 80 Mg Tablet PO 80 mg BEDTIME JOEL Administration Cilostazol 100 mg 08/28/20 21:00 08/31/20 21:10 Cilostazol 100 Mg Tablet PO 100 mg BID@1200,2100 JOEL Administration Clopidogrel Bisulfate 75 mg 08/29/20 09:00 08/31/20 08:45 Clopidogrel Bisulfate 75 Mg Tablet PO 75 mg DAILY JOEL Administration Heparin Sodium (Porcine) 5,000 unit 08/26/20 08:00 09/01/20 01:13 Heparin Sodium,Porcine 5,000 Unit/Ml Vial SUBCUT 5,000 unit Q8H JOEL Administration Hydromorphone HCl 0.5 mg 08/27/20 15:55 09/01/20 05:39 Hydromorphone Hcl 0.5 Mg/0.5 Ml Syringe IVPUSH 0.5 mg Q1H PRN Administration mild pain Hydromorphone HCl 1 mg 08/27/20 15:56 Hydromorphone Hcl 1 Mg/Ml Syringe IVPUSH Q2H PRN moderate pain Ceftriaxone Sodium 1 gm/ 50 mls @ 100 mls/hr 08/26/20 20:00 08/31/20 21:06 Sodium Chloride IV Infused Q24H JOEL Infusion Insulin Glargine 10 unit 08/29/20 10:30 08/31/20 08:38 Insulin Glargine,Hum.Rec.Anlog 100 Unit/Ml 10 Ml Vial SUBCUT 10 unit DAILY [facility] Administration Insulin Human Lispro 0 unit 08/28/20 16:30 09/01/20 07:43 Insulin Lispro 100 Unit/Ml 3 Ml Vial SUBCUT Not Given QIDACHS [facility] Protocol Levothyroxine Sodium 25 mcg 08/29/20 06:00 09/01/20 05:31 Levothyroxine Sodium 25 Mcg Tablet PO 25 mcg DAILY@0600 [facility] Administration Montelukast Sodium 10 mg 08/19/20 21:00 08/31/20 21:10 Montelukast Sodium 10 Mg Tablet PO 10 mg BEDTIME JOEL Administration Sevelamer Carbonate 800 mg 08/30/20 12:00 08/31/20 18:02 Sevelamer Carbonate Tablet 800 Mg Tablet PO 800 mg TIDWM JOEL Administration Sodium Chloride 3 ml 08/19/20 00:00 09/01/20 01:10 0.9 % Sodium Chloride Flush 3 Ml Syringe IVFLUSH Not Given QSHIFT [facility] Venlafaxine HCl 37.5 mg 08/29/20 09:00 08/31/20 08:45 Venlafaxine Hcl Er 37.5 Mg Cap.Er.24h PO 37.5 mg DAILY JOEL Administration Vitamin D 25 mcg 08/30/20 09:00 08/31/20 08:41 Cholecalciferol (Vitamin D3) 25 Mcg Tablet PO 25 mcg DAILY JOEL Administration Labs CBC & Chem 7: 09/02/20 06:02 09/02/20 06:01 Labs: Laboratory Results - last 24 hr 0608/31/20 08/31/20 11:09 17:21 20:18 WBC RBC Hgb Hct MCV MCH MCHC RDW Plt Count MPV Immature Gran % (Auto) Neut % (Auto) Lymph % (Auto) [place] % (Auto) Eos % (Auto) Baso % (Auto) Lymph # (Auto) [place] # (Auto) Eos # (Auto) Baso # (Auto) Abs Immat Gran (auto) Absolute Neuts (auto) Absolute Nucleated RBC Nucleated RBC % (auto) PT INR APTT VBG pH VBG pCO2 VBG pO2 VBG HCO3 VBG O2 Saturation VBG Base Excess POC Glucose 216 H 180 H 164 H Albumin 09/01/20 09/01/20 09/01/20 06:50 06:50 06:50 WBC 13.3 H RBC 3.23 L Hgb 8.7 L Hct 27.9 L MCV 86.4 MCH 26.9 L MCHC 31.2 RDW 14.8 Plt Count 205 MPV 10.8 Immature Gran % (Auto) 1.4 H Neut % (Auto) 77.0 H Lymph % (Auto) 10.3 L [place] % (Auto) 6.8 Eos % (Auto) 4.3 H Baso % (Auto) 0.2 Lymph # (Auto) 1.4 [place] # (Auto) 0.9 Eos # (Auto) 0.6 H Baso # (Auto) 0.0 Abs Immat Gran (auto) 0.19 H Absolute Neuts (auto) 10.3 H Absolute Nucleated RBC 0.000 Nucleated RBC % (auto) 0.0 PT 13.2 H INR 1.1 APTT 35.6 VBG pH VBG pCO2 VBG pO2 VBG HCO3 VBG O2 Saturation VBG Base Excess POC Glucose Albumin 2.6 L 09/01/20 09/01/20 06:58 07:25 WBC RBC Hgb Hct MCV MCH MCHC RDW Plt Count MPV Immature Gran % (Auto) Neut % (Auto) Lymph % (Auto) [place] % (Auto) Eos % (Auto) Baso % (Auto) Lymph # (Auto) [place] # (Auto) Eos # (Auto) Baso # (Auto) Abs Immat Gran (auto) Absolute Neuts (auto) Absolute Nucleated RBC Nucleated RBC % (auto) PT INR APTT VBG pH 7.44 H VBG pCO2 58 VBG pO2 54 VBG HCO3 40 H VBG O2 Saturation 83.0 VBG Base Excess 14.5 POC Glucose 135 H Albumin Quality Stroke Does the patient have a stroke diagnosis?: No VTE Prior VTE?: No VTE Risk Level:: Medical - low VTE Device Contraindication: N/A - Device Ordered VTE Drug Contraindication: N/A - Med Ordered Assessment and Plan (1) CKD (chronic kidney disease): Status: Acute (2) Osteomyelitis of great toe of left foot: Status: Acute Assessment and Plan: Hospital day-14 65 y/o F- anemia, asthma, diabetes, HTN, HLD, hypothyroidism, neuropathy severe peripheral vascular disease bilateral a who presents to the hospital with complaints of left big toe worsening infection-patient was started on IV antibiotics for possible sepsis/left toe osteomyelitis-further hospital course complicated with MARY KATE on CKD, question of ARDS, toxic/metabolic encephalopathy. 1. Sepsis/osteomyelitis:been on vancomycin and cefepime subsequently this was changed after a brief interlude with Zosyn-then switched to ceftriaxone as per iD (08/29 note). blood culturesx4 neg (2sets-08/18,08/24) as per ICu:planning for toe surgery in am continue cefrtiaxone until the 09/29( total 6weeks)as per ID , need Id follow up after surgery. npo past midnight 2. Acute hypoxemic respiratory failure:? unclear etiology: thought to be related to sepsis -been on vancomycin and cefepime subsequently this was changed after a brief interlude with Zosyn to the current ceftriaxone and was intubated for acute hypoxic respiratory failure with altered mental status and as per ICu notes : differential :with bilateral ground-glass infiltrates and ARDS pattern versus an aspiration picture but this was also in the face of an acute and rapidly progressive renal failure currently stablize cr around 5.2range. patient was treated with antibiotics as above , received diuretics, as well as steriods also in ICU (chart review). Seems to be resolved, last chest x-ray was on 08/28-Persistent bilateral patchy ill-defined airspace disease. Discussed with ICU thought to be related to sepsis/probable ards sputum culture 1+mixed respiratory ralph, gram stain negative for organism. sats seems 97% on room air will repeat CXR in am pulm eval also added . 3.Toxic metabolic encephalopathy: Multifactorial-sepsis/osteomyelitis/AKA on CKD,? lyrica might also contributed. Seems to be improving significantly, able to answer most of questions and follow simple commands Will continue to monitor. 4. Mary Kate on CKD: ? Unclear etiology ? 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 and also had dose of IV calcium. nephrology following 5. Pvd: Continue asa/pavix/cilostazol 6. Hypothyiodism: continue levothyroxine. dvt prophylax: hold heparin , scd in anticipation of surgery
[2020-09-01 08:24] LABS: Anion Gap 19 (12-20); Blood Urea Nitrogen 107 mg/dL (9-16); Calcium 5.4 mg/dL (8.4-10.2); Carbon Dioxide 36 mmol/L (22-29); Chloride 93 mmol/L (96-108); Creatinine Clr Calc Pharmacy 9.4; Estimated Glomerular Filt Rate 8; Glucose Random 144 mg/dL (60-115); Magnesium 2.2 mg/dL (1.6-2.6); Phosphorus 5.7 mg/dL (2.7-4.5); Potassium 3.5 mmol/L (3.3-5.1); Sodium 144 mmol/L (135-145)
[2020-09-01] MEDS: amLODIPine Besylate 2.5 MG TABLET PO ×2 (08:55→14:05)
[2020-09-01] MEDS: Cholecalciferol (Vitamin D3) 25 MCG TABLET PO (08:55)
[2020-09-01] MEDS: Sevelamer Carbonate Tablet 800 MG TABLET PO ×3 (08:55→17:16)
[2020-09-01] MEDS: Venlafaxine HCl ER 37.5 MG CAP.ER.24H PO (08:55)
[2020-09-01] MEDS: Insulin Glargine,Hum.rec.anlog 100 UNIT/ML 10 ML VIAL 10 UNIT SUBCUT (08:56)
[2020-09-01] MEDS: Clopidogrel Bisulfate 75 MG TABLET PO (08:56)
--- NOTE | 2020-09-01 09:03 | P.PNNP_ITS ---
Subjective Subjective Date of Service: 09/01/20 Principal diagnosis: mary kate/ckd Interval history: Events noted Feeling better Physical Exam Vital Signs: Vital Signs: Last Vital Signs Temp 96.8 F 09/01/20 07:27 Pulse 80 09/01/20 07:27 Resp 18 09/01/20 07:27 BP 149/78 H 09/01/20 07:27 Pulse Ox 94 09/01/20 07:27 Body Mass Index 32.0 Const: General: awake Orientation/consciousness: oriented to person Neck: Neck: Yes supple Resp: Auscultation: rhonchi Cardio: Palpation: no palpable S3 Heart sounds: no rubs GI: Palpation (GI): Soft to palpation Auscultation: normal bowel sounds Neuro: General: oriented to person Motor exam (neuro): No Asterixis during motor activity present Objective Data Labs CBC & Chem 7: 09/01/20 06:50 09/01/20 06:50 Labs: Laboratory Results - last 24 hr 08/31/20 08/31/20 08/31/20 11:09 17:21 20:18 WBC RBC Hgb Hct MCV MCH MCHC RDW Plt Count MPV Immature Gran % (Auto) Neut % (Auto) Lymph % (Auto) [place] % (Auto) Eos % (Auto) Baso % (Auto) Lymph # (Auto) [place] # (Auto) Eos # (Auto) Baso # (Auto) Abs Immat Gran (auto) Absolute Neuts (auto) Absolute Nucleated RBC Nucleated RBC % (auto) PT INR APTT VBG pH VBG pCO2 VBG pO2 VBG HCO3 VBG O2 Saturation VBG Base Excess Sodium Potassium Chloride Carbon Dioxide Anion Gap BUN Creatinine Estim Creat Clear Calc Estimated GFR POC Glucose 216 H 180 H 164 H Random Glucose Calcium Phosphorus Magnesium Albumin 09/01/20 09/01/20 09/01/20 06:50 06:50 06:50 WBC 13.3 H RBC 3.23 L Hgb 8.7 L Hct 27.9 L MCV 86.4 MCH 26.9 L MCHC 31.2 RDW 14.8 Plt Count 205 MPV 10.8 Immature Gran % (Auto) 1.4 H Neut % (Auto) 77.0 H Lymph % (Auto) 10.3 L [place] % (Auto) 6.8 Eos % (Auto) 4.3 H Baso % (Auto) 0.2 Lymph # (Auto) 1.4 [place] # (Auto) 0.9 Eos # (Auto) 0.6 H Baso # (Auto) 0.0 Abs Immat Gran (auto) 0.19 H Absolute Neuts (auto) 10.3 H Absolute Nucleated RBC 0.000 Nucleated RBC % (auto) 0.0 PT 13.2 H INR 1.1 APTT 35.6 VBG pH VBG pCO2 VBG pO2 VBG HCO3 VBG O2 Saturation VBG Base Excess Sodium 144 Potassium 3.5 Chloride 93 L Carbon Dioxide 36 H Anion Gap 19 BUN 107 H* Creatinine 5.29 H* Estim Creat Clear Calc 9.4 Estimated GFR 8 POC Glucose Random Glucose 144 H Calcium 5.4 L* Phosphorus 5.7 H Magnesium 2.2 Albumin 09/01/20 09/01/20 09/01/20 06:50 06:58 07:25 WBC RBC Hgb Hct MCV MCH MCHC RDW Plt Count MPV Immature Gran % (Auto) Neut % (Auto) Lymph % (Auto) [place] % (Auto) Eos % (Auto) Baso % (Auto) Lymph # (Auto) [place] # (Auto) Eos # (Auto) Baso # (Auto) Abs Immat Gran (auto) Absolute Neuts (auto) Absolute Nucleated RBC Nucleated RBC % (auto) PT INR APTT VBG pH 7.44 H VBG pCO2 58 VBG pO2 54 VBG HCO3 40 H VBG O2 Saturation 83.0 VBG Base Excess 14.5 Sodium Potassium Chloride Carbon Dioxide Anion Gap BUN Creatinine Estim Creat Clear Calc Estimated GFR POC Glucose 135 H Random Glucose Calcium Phosphorus Magnesium Albumin 2.6 L Microbiology Microbiology Results: Microbiology 08/24/20 09:53 Blood - Venous Blood Culture - Final No growth after 5 days. 08/24/20 09:52 Blood - Venous Blood Culture - Final No growth after 5 days. 08/25/20 06:49 Sputum - Suctioned Gram Stain - Final 08/25/20 06:49 Sputum - Suctioned Sputum Culture - Final 08/18/20 16:15 Blood - Venous Blood Culture - Final No growth after 5 days. 08/18/20 16:15 Blood - Venous Blood Culture - Final No growth after 5 days. Assessment & Plan Assessment and plan (1) Metabolic encephalopathy: Status: Acute (2) MARY KATE (acute kidney injury): Status: Acute Assessment and Plan: 1. MARY KATE: cont incr SCR and c/w new ischemic ATN hit; given markedly abnl CXR and ques of pulm hem ANCA - normal. 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 no hypotension CAROL/IRD and ques chol emboli: all definite poss given severity of ASVD No Obs by renal U/s 2. CKD 4: bsl SCr 2.0: most c/w DN/HTN renal dis 3. AMS: suspect med pregabapentin playing signif role : Improved 4. HypoCa: decr CA further d/t decr alb 5. AGMA/NAGMA: resolved with IV NaHCO3 6. Impressive CXR abbnl and yet O2 requirements minimal --no A-a gradient; CHF vs ARDS Currently non oliguric No overt s/s of uremia no absolute indication for dialysis yet Continue to keep O > I Needs kidney biopsy for definitive diagnosis ; will schedule for next week Time Spent With Patient Time: Total time spent is greater than 50% in coordination of care (as documented) at patient's floor/unit and/or counseling patient: Procedures Date of Service Date of Service: 09/01/20 Progress Note: Quality Stroke Does the patient have a stroke diagnosis?: No
[2020-09-01 11:08] LABS: Glucose, Whole Blood 130 mg/dL (60-115)
--- NOTE | 2020-09-01 12:14 | PM.EVENT ---
Event Note Date of Service: 09/01/20 Event Note: Pt. transferred to floor. For lrft great toe amputation tomorrow
[2020-09-01] MEDS: cilostazoL 100 MG TABLET PO ×2 (14:05→20:51)
[2020-09-01] MEDS: Calcium Gluconate/NaCl,Iso-Osm 1 GM/50 ML PLAST..BAG IV (14:57)
[2020-09-01 15:54] LABS: Glucose, Whole Blood 104 mg/dL (60-115)
[2020-09-01] MEDS: cefTRIAXone sodium 1 GM in 0.9 % Sodium Chloride 50 ML IV (20:00)
[2020-09-01] MEDS: Montelukast Sodium 10 MG TABLET PO (20:51)
[2020-09-01] MEDS: 0.9 % Sodium Chloride Flush 3 ML SYRINGE IVFLUSH (20:51)
[2020-09-01] MEDS: Atorvastatin Calcium 80 MG TABLET PO (20:51)
[2020-09-01 21:01] LABS: Glucose, Whole Blood 102 mg/dL (60-115)
[2020-09-02] VITALS (13 sets, daily range): BP systolic 121–186; BP diastolic 66–87; PULSE 74–149; RESP 13–20; TEMP 35.9–36.9; O2SAT 92–100
[2020-09-02] MEDS: Levothyroxine Sodium 25 MCG TABLET PO (05:42)
[2020-09-02 06:10] LABS: MANUAL DIFF FLAG NO
[2020-09-02 06:12] LABS: Venous Blood Gas Refer to POC result
[2020-09-02 06:13] LABS: Basophils Percent Auto 0.3 % (0-2); Eosinophils Absolute Auto 0.6 X10*3/uL (0.0-0.4); Hematocrit 29.4 % (37-47); Hemoglobin 9.3 g/dl (12.0-16.0); Imm Gran Abs Auto 0.13 X10*3/uL (0.00-0.03); Imm Gran Pct Auto 1.1 % (0.0-0.4); Lymphocytes Absolute Auto 1.2 X10*3/uL (1.2-4.9); Lymphocytes Percent Auto 10.5 % (20-40); Mean Corpuscular HGB Conc 31.6 g/dl (31.0-35.0); Mean Corpuscular Hemoglobin 27.4 pg (27.0-33.0); Mean Corpuscular Volume 86.5 fL (80-98); Mean Platelet Volume 10.5 fL (9.4-12.3); Monocytes Absolute Auto 1.1 X10*3/uL (0.1-1.2); Neutrophils Absolute Auto 8.3 X10*3/uL (2.0-8.3); Neutrophils Percent Auto 73.1 % (45-73); Platelet Count 189 X10*3/uL (160-400); White Blood Count 11.4 X10*3/uL (4.8-10.8)
[2020-09-02 06:16] LABS: VBG Base Excess 17.9 mmol/L; VBG HCO3 43 mmol/L (22-26); VBG pCO2 53 mmHg; VBG pH 7.51 (7.32-7.43); VBG pO2 87 mmHg
[2020-09-02 06:33] LABS: INTERNATIONAL NORM RATIO 1.1 (0.9-1.1); Prothrombin Time 13.1 SEC (10.8-13.0)
[2020-09-02 06:34] LABS: Albumin Level 2.6 g/dL (3.5-5.0)
[2020-09-02 06:36] LABS: Partial Thromboplastin Time 34.1 SEC (24.1-38.0)
[2020-09-02 06:44] LABS: Anion Gap 20 (12-20); Carbon Dioxide 34 mmol/L (22-29); Chloride 94 mmol/L (96-108); Glucose Random 67 mg/dL (60-115); Potassium 3.5 mmol/L (3.3-5.1); Sodium 144 mmol/L (135-145)
[2020-09-02 06:47] LABS: Blood Urea Nitrogen 93 mg/dL (9-16)
[2020-09-02 06:51] LABS: Magnesium 2.1 mg/dL (1.6-2.6)
[2020-09-02 07:09] LABS: Calcium 5.6 mg/dL (8.4-10.2); Creatinine Clr Calc Pharmacy 9.9; Estimated Glomerular Filt Rate 9
[2020-09-02 07:32] LABS: Glucose, Whole Blood 69 mg/dL (60-115)
--- NOTE | 2020-09-02 08:12 | HO.PM.IMPN ---
Subjective Subjective Date of Service: 09/02/20 Interval History: Seen in f/u infected toe/osteomylitis, MARY KATE on CKD, post ICU care for acute hypoxic respiratory failure ARDS, and is doing much better. She is planned for amputation today. Her sugar was 69 this morning but no symptoms. Review of Systems Gen: no fever Resp: no sob, no cough CV: no chest, no TIWARI, no leg edema GI: No n/v, no abd pain Neuro: No confusion MSk pain in left big Physical Exam Vital Signs: Vital Signs: Last Vital Signs Temp 96.6 F L 09/02/20 07:34 Pulse 76 09/02/20 07:34 Resp 16 09/02/20 07:34 BP 156/75 H 09/02/20 07:34 Pulse Ox 94 09/02/20 07:34 Body Mass Index 32.0 Const: Other: Constitutional Awake and Alert, No apparent distress Neck Supple, No lymphadenopathy Cardiovascular RRR, No M/R/G, S1 S2, No S3 S4, No pedal edema Respiratory rhohchi eddi Gastrointestinal Non tender, Non-distended Skin No rash necrotic left big toe Neurological Alert & oriented x3 Psychological Appropriate affect Objective Data Current Medications Generic Name Dose Route Start Last Admin Trade Name Freq PRN Reason Stop Dose Admin Acetaminophen/Codeine Phosphate 2 tab 08/28/20 09:55 08/29/20 08:16 Acetaminophen With Codeine # 3 Tablet PO 2 tab Q6H PRN Administration toe pain Amlodipine Besylate 5 mg 09/02/20 09:00 Amlodipine Besylate 5 Mg Tablet PO DAILY [facility] Protocol Aspirin 81 mg 08/29/20 09:00 09/01/20 08:57 Aspirin Enteric Coated 81 Mg Tablet. PO Not Given DAILY JOEL Atorvastatin Calcium 80 mg 08/28/20 21:00 09/01/20 20:51 Atorvastatin Calcium 80 Mg Tablet PO 80 mg BEDTIME JOEL Administration Calcium Carbonate 500 mg 09/01/20 13:00 09/01/20 20:51 Calcium Carbonate 500 Mg Tablet PO 500 mg BID JOEL Administration Cilostazol 100 mg 08/28/20 21:00 09/01/20 20:51 Cilostazol 100 Mg Tablet PO 100 mg BID@1200,2100 JOEL Administration Clopidogrel Bisulfate 75 mg 08/29/20 09:00 09/01/20 08:56 Clopidogrel Bisulfate 75 Mg Tablet PO 75 mg DAILY JOEL Administration Heparin Sodium (Porcine) 5,000 unit 08/26/20 08:00 09/01/20 17:16 Heparin Sodium,Porcine 5,000 Unit/Ml Vial SUBCUT 5,000 unit Q8H JOEL Administration Hydromorphone HCl 0.5 mg 08/27/20 15:55 09/01/20 05:39 Hydromorphone Hcl 0.5 Mg/0.5 Ml Syringe IVPUSH 0.5 mg Q1H PRN Administration mild pain Hydromorphone HCl 1 mg 08/27/20 15:56 Hydromorphone Hcl 1 Mg/Ml Syringe IVPUSH Q2H PRN moderate pain Ceftriaxone Sodium 1 gm/ 50 mls @ 100 mls/hr 08/26/20 20:00 09/01/20 20:37 Sodium Chloride IV Infused Q24H [facility] Infusion Dextrose/Lactated Ringer's 1,000 mls @ 80 mls/hr 09/02/20 08:00 D5lr IVCONT 09/02/20 20:29 .[id number] [facility] Insulin Glargine 10 unit 08/29/20 10:30 09/01/20 08:56 Insulin Glargine,Hum.Rec.Anlog 100 Unit/Ml 10 Ml Vial SUBCUT 10 unit DAILY [facility] Administration Insulin Human Lispro 0 unit 08/28/20 16:30 09/02/20 07:35 Insulin Lispro 100 Unit/Ml 3 Ml Vial SUBCUT Not Given QIDACHS [facility] Protocol Levothyroxine Sodium 25 mcg 08/29/20 06:00 09/02/20 05:42 Levothyroxine Sodium 25 Mcg Tablet PO 25 mcg DAILY@0600 [facility] Administration Montelukast Sodium 10 mg 08/19/20 21:00 09/01/20 20:51 Montelukast Sodium 10 Mg Tablet PO 10 mg BEDTIME JOEL Administration Sevelamer Carbonate 800 mg 08/30/20 12:00 09/01/20 17:16 Sevelamer Carbonate Tablet 800 Mg Tablet PO 800 mg TIDWM JOEL Administration Sodium Chloride 3 ml 08/19/20 00:00 09/01/20 20:51 0.9 % Sodium Chloride Flush 3 Ml Syringe IVFLUSH 3 ml QSHIFT [facility] Administration Venlafaxine HCl 37.5 mg 08/29/20 09:00 06/17/21 08:55 Venlafaxine Hcl Er 37.5 Mg Cap.Er.24h PO 37.5 mg DAILY JOEL Administration Vitamin D 25 mcg 08/30/20 09:00 09/01/20 08:55 Cholecalciferol (Vitamin D3) 25 Mcg Tablet PO 25 mcg DAILY JOEL Administration Labs CBC & Chem 7: 09/02/20 06:02 09/02/20 06:01 Labs: Laboratory Results - last 24 hr 09/01/20 09/01/20 09/01/20 06:50 11:03 15:31 WBC RBC Hgb Hct MCV MCH MCHC RDW Plt Count MPV Immature Gran % (Auto) Neut % (Auto) Lymph % (Auto) [place] % (Auto) Eos % (Auto) Baso % (Auto) Lymph # (Auto) [place] # (Auto) Eos # (Auto) Baso # (Auto) Abs Immat Gran (auto) Absolute Neuts (auto) Absolute Nucleated RBC Nucleated RBC % (auto) PT INR APTT VBG pH VBG pCO2 VBG pO2 VBG HCO3 VBG O2 Saturation VBG Base Excess Sodium 144 Potassium 3.5 Chloride 93 L Carbon Dioxide 36 H Anion Gap 19 BUN 107 H* Creatinine 5.29 H* Estim Creat Clear Calc 9.4 Estimated GFR 8 POC Glucose 130 H 104 Random Glucose 144 H Calcium 5.4 L* Phosphorus 5.7 H Magnesium 2.2 Albumin Blood Type Antibody Screen 09/01/20 09/02/20 09/02/20 20:57 06:01 06:01 WBC RBC Hgb Hct MCV MCH MCHC RDW Plt Count MPV Immature Gran % (Auto) Neut % (Auto) Lymph % (Auto) [place] % (Auto) Eos % (Auto) Baso % (Auto) Lymph # (Auto) Early # (Auto) Eos # (Auto) Baso # (Auto) Abs Immat Gran (auto) Absolute Neuts (auto) Absolute Nucleated RBC Nucleated RBC % (auto) PT INR APTT VBG pH VBG pCO2 VBG pO2 VBG HCO3 VBG O2 Saturation VBG Base Excess Sodium Potassium Chloride Carbon Dioxide Anion Gap BUN Creatinine Estim Creat Clear Calc Estimated GFR POC Glucose 102 Random Glucose Calcium Cancelled Phosphorus 5.0 H Magnesium 2.1 Albumin 2.6 L Blood Type Antibody Screen 09/02/20 09/02/20 09/02/20 06:01 06:02 06:02 WBC 11.4 H RBC 3.40 L Hgb 9.3 L Hct 29.4 L MCV 86.5 MCH 27.4 MCHC 31.6 RDW 15.0 Plt Count 189 MPV 10.5 Immature Gran % (Auto) 1.1 H Neut % (Auto) 73.1 H Lymph % (Auto) 10.5 L Early % (Auto) 10.0 Eos % (Auto) 5.0 H Baso % (Auto) 0.3 Lymph # (Auto) 1.2 Early # (Auto) 1.1 Eos # (Auto) 0.6 H Baso # (Auto) 0.0 Abs Immat Gran (auto) 0.13 H Absolute Neuts (auto) 8.3 Absolute Nucleated RBC 0.000 Nucleated RBC % (auto) 0.0 PT INR APTT VBG pH VBG pCO2 VBG pO2 VBG HCO3 VBG O2 Saturation VBG Base Excess Sodium 144 Potassium 3.5 Chloride 94 L Carbon Dioxide 34 H Anion Gap 20 BUN 93 H* Creatinine 5.02 H* Estim Creat Clear Calc 9.9 Estimated GFR 9 POC Glucose Random Glucose 67 D Calcium 5.6 L* Phosphorus Magnesium Albumin Blood Type A Negative Antibody Screen NEGATIVE 09/02/20 09/02/20 09/02/20 06:02 06:08 07:28 WBC RBC Hgb Hct MCV MCH MCHC RDW Plt Count MPV Immature Gran % (Auto) Neut % (Auto) Lymph % (Auto) [place] % (Auto) Eos % (Auto) Baso % (Auto) Lymph # (Auto) Early # (Auto) Eos # (Auto) Baso # (Auto) Abs Immat Gran (auto) Absolute Neuts (auto) Absolute Nucleated RBC Nucleated RBC % (auto) PT 13.1 H INR 1.1 APTT 34.1 VBG pH 7.51 H VBG pCO2 53 VBG pO2 87 VBG HCO3 43 H VBG O2 Saturation 96.0 VBG Base Excess 17.9 Sodium Potassium Chloride Carbon Dioxide Anion Gap BUN Creatinine Estim Creat Clear Calc Estimated GFR POC Glucose 69 Random Glucose Calcium Phosphorus Magnesium Albumin Blood Type Antibody Screen Quality Stroke Does the patient have a stroke diagnosis?: No VTE Prior VTE?: No VTE Risk Level:: Medical - low VTE Device Contraindication: N/A - Device Ordered VTE Drug Contraindication: N/A - Med Ordered Assessment and Plan (1) CKD (chronic kidney disease): Status: Acute (2) Osteomyelitis of great toe of left foot: Status: Acute Assessment and Plan: Hospital day-14 65 y/o F- anemia, asthma, diabetes, HTN, HLD, hypothyroidism, neuropathy severe peripheral vascular disease bilateral a who presents to the hospital with complaints of left big toe worsening infection-patient was started on IV antibiotics for possible sepsis/left toe osteomyelitis-further hospital course complicated with MARY KATE on CKD, question of ARDS, toxic/metabolic encephalopathy. 1. Sepsis/osteomyelitis:been on vancomycin and cefepime subsequently this was changed after a brief interlude with Zosyn-then switched to ceftriaxone as per iD (08/29 note). blood culturesx4 neg (2sets-08/18,08/24) She is having amputation done today continue cefrtiaxone until the 09/29( total 6weeks)as per ID--She may not need antibiotcs after surgery. Over moderate to high risk for quiana-op cardiopulmonary complication due to multiple co-morbidities, recent complicated ICU course and worsening renal failure, caution with excess fluid 2. Acute hypoxemic respiratory failure on 08/25, imaging showed ground glass opacity, unclear etiology: thought to be ARDS or aspiration causing sepsis vs possible pulmonary edema -been on vancomycin and cefepime subsequently this was changed after a brief interlude with Zosyn to the current ceftriaxone, She required mechical ventilation for several days and ICU stay complicated encephalopathy as discussd below. Presently doing well, no hypoxia, and need at all for oxygen. She was also diuressed in ICU while renal function worsening 3.Toxic metabolic encephalopathy: Multifactorial-sepsis/osteomyelitis/AKA on CKD,? lyrica might also have contributed--This has completely resolved and is back to baseline mental status. Should avoid Lyrica 4. Mary Kate on CKD: ? Unclear etiology ? 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 and also had dose of IV calcium. nephrology following, She may need further work up such as Bx 5. Pvd: Continue asa/pavix/cilostazol 6. Hypothyiodism: continue levothyroxine. 7. Hyperntesion--BP is uncontrolled, increase Norvasc to 10 dvt prophylax: hold heparin , scd in anticipation of surgery
[2020-09-02 08:17] LABS: Glucose, Whole Blood 96 mg/dL (60-115)
--- NOTE | 2020-09-02 08:20 | PC.NURSE ---
Patient arrived at [facility], a&O x3. During intake, patient had a one minute run of ST in the 140's, patient asymptomatic. Currently SR on the 80's. Dr. Brown notified. No new orders.
--- NOTE | 2020-09-02 08:30 | PC.NURSE ---
Dr. Brown aware of all recent lab work. No new orders at this time.
[2020-09-02] MEDS: 0.9 % Sodium Chloride 1,000 ML 50 ML IVCONT (08:40)
--- NOTE | 2020-09-02 09:27 | P.PNNP_ITS ---
Subjective Subjective Date of Service: 09/12/20 Principal diagnosis: mary kate/ckd Interval history: Events noted To OR today Physical Exam Vital Signs: Vital Signs: Last Vital Signs Temp 97.2 F 09/02/20 08:14 Pulse 84 09/02/20 08:18 Resp 16 09/02/20 08:14 BP 153/70 H 09/02/20 08:18 Pulse Ox 98 09/02/20 08:14 Body Mass Index 32.0 Const: General: awake Orientation/consciousness: oriented to person Neck: Neck: Yes supple Resp: Auscultation: rhonchi Cardio: Palpation: no palpable S3 Heart sounds: no rubs GI: Palpation (GI): Soft to palpation Auscultation: normal bowel sounds Neuro: General: oriented to person Motor exam (neuro): No Asterixis during motor activity present Objective Data Labs CBC & Chem 7: 09/05/20 06:55 09/05/20 06:55 Labs: Laboratory Results - last 24 hr 09/01/20 09/01/20 09/01/20 11:03 15:31 20:57 WBC RBC Hgb Hct MCV MCH MCHC RDW Plt Count MPV Immature Gran % (Auto) Neut % (Auto) Lymph % (Auto) [place] % (Auto) Eos % (Auto) Baso % (Auto) Lymph # (Auto) [place] # (Auto) Eos # (Auto) Baso # (Auto) Abs Immat Gran (auto) Absolute Neuts (auto) Absolute Nucleated RBC Nucleated RBC % (auto) PT INR APTT VBG pH VBG pCO2 VBG pO2 VBG HCO3 VBG O2 Saturation VBG Base Excess Sodium Potassium Chloride Carbon Dioxide Anion Gap BUN Creatinine Estim Creat Clear Calc Estimated GFR POC Glucose 130 H 104 102 Random Glucose Calcium Phosphorus Magnesium Albumin Blood Type Antibody Screen 09/02/20 09/02/20 09/02/20 06:01 06:01 06:01 WBC RBC Hgb Hct MCV MCH MCHC RDW Plt Count MPV Immature Gran % (Auto) Neut % (Auto) Lymph % (Auto) [place] % (Auto) Eos % (Auto) Baso % (Auto) Lymph # (Auto) [place] # (Auto) Eos # (Auto) Baso # (Auto) Abs Immat Gran (auto) Absolute Neuts (auto) Absolute Nucleated RBC Nucleated RBC % (auto) PT INR APTT VBG pH VBG pCO2 VBG pO2 VBG HCO3 VBG O2 Saturation VBG Base Excess Sodium 144 Potassium 3.5 Chloride 94 L Carbon Dioxide 34 H Anion Gap 20 BUN 93 H* Creatinine 5.02 H* Estim Creat Clear Calc 9.9 Estimated GFR 9 POC Glucose Random Glucose 67 D Calcium Cancelled 5.6 L* Phosphorus 5.0 H Magnesium 2.1 Albumin 2.6 L Blood Type Antibody Screen 09/02/20 09/02/20 09/02/20 06:02 06:02 06:02 WBC 11.4 H RBC 3.40 L Hgb 9.3 L Hct 29.4 L MCV 86.5 MCH 27.4 MCHC 31.6 RDW 15.0 Plt Count 189 MPV 10.5 Immature Gran % (Auto) 1.1 H Neut % (Auto) 73.1 H Lymph % (Auto) 10.5 L [place] % (Auto) 10.0 Eos % (Auto) 5.0 H Baso % (Auto) 0.3 Lymph # (Auto) 1.2 [place] # (Auto) 1.1 Eos # (Auto) 0.6 H Baso # (Auto) 0.0 Abs Immat Gran (auto) 0.13 H Absolute Neuts (auto) 8.3 Absolute Nucleated RBC 0.000 Nucleated RBC % (auto) 0.0 PT 13.1 H INR 1.1 APTT 34.1 VBG pH VBG pCO2 VBG pO2 VBG HCO3 VBG O2 Saturation VBG Base Excess Sodium Potassium Chloride Carbon Dioxide Anion Gap BUN Creatinine Estim Creat Clear Calc Estimated GFR POC Glucose Random Glucose Calcium Phosphorus Magnesium Albumin Blood Type A Negative Antibody Screen NEGATIVE 09/02/20 09/02/20 09/02/20 06:08 07:28 08:14 WBC RBC Hgb Hct MCV MCH MCHC RDW Plt Count MPV Immature Gran % (Auto) Neut % (Auto) Lymph % (Auto) [place] % (Auto) Eos % (Auto) Baso % (Auto) Lymph # (Auto) [place] # (Auto) Eos # (Auto) Baso # (Auto) Abs Immat Gran (auto) Absolute Neuts (auto) Absolute Nucleated RBC Nucleated RBC % (auto) PT INR APTT VBG pH 7.51 H VBG pCO2 53 VBG pO2 87 VBG HCO3 43 H VBG O2 Saturation 96.0 VBG Base Excess 17.9 Sodium Potassium Chloride Carbon Dioxide Anion Gap BUN Creatinine Estim Creat Clear Calc Estimated GFR POC Glucose 69 96 Random Glucose Calcium Phosphorus Magnesium Albumin Blood Type Antibody Screen Microbiology Microbiology Results: Microbiology 08/24/20 09:53 Blood - Venous Blood Culture - Final No growth after 5 days. 08/24/20 09:52 Blood - Venous Blood Culture - Final No growth after 5 days. 08/25/20 06:49 Sputum - Suctioned Gram Stain - Final 08/25/20 06:49 Sputum - Suctioned Sputum Culture - Final 08/18/20 16:15 Blood - Venous Blood Culture - Final No growth after 5 days. 08/18/20 16:15 Blood - Venous Blood Culture - Final No growth after 5 days. Assessment & Plan Assessment and plan (1) Metabolic encephalopathy: Status: Acute (2) MARY KATE (acute kidney injury): Status: Acute Assessment and Plan: 1. MARY KATE: cont incr SCR and c/w new ischemic ATN hit; given markedly abnl CXR and ques of pulm hem ANCA - normal. 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 no hypotension CAROL/IRD and ques chol emboli: all definite poss given severity of ASVD No Obs by renal U/s 2. CKD 4: bsl SCr 2.0: most c/w DN/HTN renal dis 3. AMS: suspect med pregabapentin playing signif role : Improved 4. HypoCa: decr CA further d/t decr alb 5. AGMA/NAGMA: resolved with IV NaHCO3 6. Impressive CXR abbnl and yet O2 requirements minimal --no A-a gradient; CHF vs ARDS 7- Gangrene of Toe - Await surgery Currently non oliguric No overt s/s of uremia no absolute indication for dialysis yet Continue to keep O > I Needs kidney biopsy for definitive diagnosis ; will schedule for next week if renal function does not improve Time Spent With Patient Time: Total time spent is greater than 50% in coordination of care (as documented) at patient's floor/unit and/or counseling patient: Procedures Date of Service Date of Service: 09/02/20 Progress Note: Quality Stroke Does the patient have a stroke diagnosis?: No
--- NOTE | 2020-09-02 10:15 | P.OP_ITS ---
Operative Note Operative Note Date of Service: 09/02/20 Narrative: Operative note by [facility] Preoperative diagnosis:Nonhealing left great toe with gangrene and osteomyelitis Postoperative diagnosis: same Procedure: left great toe ray amputation Surgeon:David Butler M.D. Marriage [facility] Family Social Worker: edis Anesthesia: local with sedation Specimens: 1 Drains: none Estimated blood loss: minimal Indications: 65-year-old diabetic female with nonhealing left great toe ulceration. She had undergone prior endovascular intervention. Toe infection has progressed to osteomyelitis. She now presents for operative intervention The patient has signed the informed consent after reviewing risks, complications, benefits, and alternatives previously discussed with the patient. The patient was given the opportunity to ask any additional questions or voice any concerns. All questions were answered to the patient's satisfaction. Procedure in detail: patient was brought to the operating room prior to which a time-out was called for patient identification and site verification. Left great toe was prepped and draped in the standard surgical fashion. [place] incision was made over the toe. Upon entry immediately. Limb material was encountered. We then resected the toe. Incision was cut carried further back over and beyond the metatarsal head. Using power saw we transected the metat arsal. Once this was accomplished of file was used. We rasped down to a smooth edge. Wound was then thoroughly irrigated out. Deep layer was reapproximated using 2 0 poly sorb. Superficial layer with a 3-0 nylon suture. Finally radha and a sterile dressing were applied. At the end of the case sponge instrument counts were correct. Patient tolerated the procedure well. Returned to recovery with stable vitals. This note is constructed using voice recognition software. While every effort has been made to ensure accuracy, container shop welder errors may have been included. Thank you for allowing me to participate in the care of your patient. Yours sincerely, David Butler MD, FACS, R.P.V.I.
--- NOTE | 2020-09-02 10:36 | MHC.SHP ---
Pre-Procedural Eval Section A The patient is an INPATIENT: Yes The History & Physical has been completed within 30 days and I have reviewed it.: Yes Section B Chief Complaint: osteomyelitis Allergies: Allergies Allergy/AdvReac Type Severity Reaction Status Date / Time ALLYSSA Inhibitors Allergy Mild COUGH Verified 08/11/20 14:06 [ALLYSSA INHIBITORS] cilostazol [CILOSTAZOL] Allergy Mild COUGH Verified 08/11/20 14:06 Plan I have reviewed the history and physical and performed a pertinent physical examination on my patient. No changes have occurred unless specified.
[2020-09-02 10:43] LABS: Glucose, Whole Blood 84 mg/dL (60-115)
[2020-09-02] MEDS: Venlafaxine HCl ER 37.5 MG CAP.ER.24H PO (10:47)
[2020-09-02] MEDS: amLODIPine Besylate 5 MG TABLET PO (10:47)
[2020-09-02] MEDS: Cholecalciferol (Vitamin D3) 25 MCG TABLET PO (10:47)
[2020-09-02] MEDS: Clopidogrel Bisulfate 75 MG TABLET PO (10:47)
[2020-09-02] MEDS: Aspirin Enteric Coated 81 MG TABLET.DR PO (10:47)
[2020-09-02] MEDS: cilostazoL 100 MG TABLET PO ×2 (11:51→19:47)
[2020-09-02] MEDS: Insulin Glargine,Hum.rec.anlog 100 UNIT/ML 10 ML VIAL 10 UNIT SUBCUT (11:51)
[2020-09-02] MEDS: Sevelamer Carbonate Tablet 800 MG TABLET PO ×2 (11:51→17:14)
[2020-09-02] MEDS: oxyCODONE HCl Immed Release 5 MG TABLET PO (13:10)
--- NOTE | 2020-09-02 13:51 | PM.CNPUL ---
History of Present Illness History of Present Illness Consult date: 09/02/20 Chief complaint: osteomyelitis Narrative: 65-year-old female insulin-dependent type 2 diabetes mellitus and hypertension with significant peripheral vascular disease presented with sepsis related to a left big toe osteomyelitis but also gas s/p intubation was due to ARDS from the sepsis. The patient did require IV antibiotics. Ultimately she was able to be extubated and transferred to the floor. She is status post amputation for the osteomyelitis which she tolerated well. Now in the postoperative. She is recovering well she is on room air. Her last chest x-ray demonstrated some increased interstitial markings suggest some degree of scarring there was a residual of the ARDS. I did personally reviewed the CT scan of the chest that she had back in August 24 which demonstrated significant airspace disease bilaterally with some crazy paving which could have been the result of aspiration pneumonitis in addition to sepsis and ARDS. Currently the patient is doing well using the incentive spirometer during the postoperative. 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 But, her ANCA levels were negative and she has improved even without the usual therapy for vasculitis. Her complement levels were low suggesting lupus. But, her GEORGE was negative. Is not on reasonable to check additional immunological laboratories, but, this can wait due to the fact that her x-rays already improving and she clinically is improving overall. Review of Systems Constitutional: Constitutional: Denies night sweats ENT: Denies change in voice, Denies lip swelling, Denies mouth pain, Reports nasal congestion, Reports nasal discharge and Denies tongue swelling Cardiovascular: Cardiovascular: Denies chest pain Respiratory: Respiratory: Reports cough Gastrointestinal: Gastrointestinal: Denies abdominal pain Musculoskeletal: Musculoskeletal: Reports joint swelling and Reports limited range of motion Neurologic: Denies Neuro-related abnormal movements Psychiatric: Psychiatric: Denies no additional psychiatric complaints Hematologic/Lymphatic: Hematologic/Lymphatic: Denies easy bleeding and Denies lymphadenopathy Allergic/Immunologic: Allergic/Immunologic: Denies lip swelling and Denies tongue swelling [facility] Past Medical History Medical History (Updated 09/02/20 @ 13:58 by Arnie Jackson MD) Anemia ARDS (adult respiratory distress syndrome) Asthma-COPD overlap syndrome Diabetes HTN (hypertension) Hypercholesteremia Hypothyroidism Neuropathy Pneumonitis Family History Family history: reviewed and not pertinent Social History Social History Household Members: Other Housing: Apartment Do you presently have 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 or other home services: Yes Patient Tobacco Use Status: Former Tobacco user Tobacco use type: Cigarette Years Smoked: 45 Smoked in Last 30 Days: No Use of substances other than those prescribed or required for medical reasons: No Currently Displaying Signs/Symptoms of Drug Intoxication Withdrawal: No Have you been hit, kicked, punched, or otherwise hurt by someone within the past year? If so, by whom?: No Do you feel safe in your current relationship?: No Current Relationship Is there a partner from a previous relationship who is making you feel unsafe now?: No Are you made to feel afraid or neglected: No Are you DNR?: No Advance Directives: Yes Advance Directives Information Provided: Yes Advance Directives on File: No Advance Directives Date on File: 08/18/20 Do you have thoughts of harming others: None Do you have a plan to hurt others: No Plan Recently lost weight without trying: No Eating poorly because of decreased appetite: No Nutrition Risks: No Nutritional Risk service: No Current occupational status: disabled Meds Allergies Allergy/AdvReac Type Severity Reaction Status Date / Time ALLYSSA Inhibitors Allergy Mild COUGH Verified 08/11/20 14:06 [ALLYSSA INHIBITORS] cilostazol [CILOSTAZOL] Allergy Mild COUGH Verified 08/11/20 14:06 Active Medications: Current Medications Generic Name Dose Route Start Last Admin Trade Name Freq PRN Reason Stop Dose Admin Amlodipine Besylate 5 mg 09/02/20 09:00 09/02/20 10:47 Amlodipine Besylate 5 Mg Tablet PO 5 mg DAILY JOEL Administration Protocol Aspirin 81 mg 08/29/20 09:00 09/02/20 10:47 Aspirin Enteric Coated 81 Mg Tablet.Dr PO 81 mg DAILY JOEL Administration Atorvastatin Calcium 80 mg 08/28/20 21:00 09/01/20 20:51 Atorvastatin Calcium 80 Mg Tablet PO 80 mg BEDTIME JOEL Administration Calcium Carbonate 500 mg 09/01/20 13:00 09/02/20 10:47 Calcium Carbonate 500 Mg Tablet PO 500 mg BID JOEL Administration Cilostazol 100 mg 08/28/20 21:00 09/02/20 11:51 Cilostazol 100 Mg Tablet PO 100 mg BID@1200,2100 JOEL Administration Clopidogrel Bisulfate 75 mg 08/29/20 09:00 09/02/20 10:47 Clopidogrel Bisulfate 75 Mg Tablet PO 75 mg DAILY JOEL Administration Fentanyl 25 mcg 09/02/20 09:42 Fentanyl Citrate/Pf 100 Mcg/2 Ml Vial IVPUSH Q5M PRN Pain, Moderate (Pain Scale 4-6 Heparin Sodium (Porcine) 5,000 unit 08/26/20 08:00 09/01/20 17:16 Heparin Sodium,Porcine 5,000 Unit/Ml Vial SUBCUT 5,000 unit Q8H JOEL Administration Hydromorphone HCl 0.5 mg 08/27/20 15:55 09/01/20 05:39 Hydromorphone Hcl 0.5 Mg/0.5 Ml Syringe IVPUSH 0.5 mg Q1H PRN Administration mild pain Hydromorphone HCl 1 mg 08/27/20 15:56 Hydromorphone Hcl 1 Mg/Ml Syringe IVPUSH Q2H PRN moderate pain Ceftriaxone Sodium 1 gm/ 50 mls @ 100 mls/hr 08/26/20 20:00 09/01/20 20:37 Sodium Chloride IV Infused Q24H JOEL Infusion Dextrose/Lactated Ringer's 1,000 mls @ 80 mls/hr 09/02/20 08:00 09/02/20 11:00 D5lr IVCONT 09/02/20 20:29 Not Given .[id number] JOEL Sodium Chloride 1,000 mls @ 50 mls/hr 09/02/20 09:45 09/02/20 08:40 Ns IVCONT 50 mls/hr .Q20H JOEL Administration Insulin Glargine 10 unit 08/29/20 10:30 09/02/20 11:51 Insulin Glargine,Hum.Rec.Anlog 100 Unit/Ml 10 Ml Vial SUBCUT 10 unit DAILY JOEL Administration Insulin Human Lispro 0 unit 08/28/20 16:30 09/02/20 11:02 Insulin Lispro 100 Unit/Ml 3 Ml Vial SUBCUT Not Given QIDACHS [facility] Protocol Levothyroxine Sodium 25 mcg 08/29/20 06:00 09/02/20 05:42 Levothyroxine Sodium 25 Mcg Tablet PO 25 mcg DAILY@0600 JOEL Administration Montelukast Sodium 10 mg 08/19/20 21:00 09/01/20 20:51 Montelukast Sodium 10 Mg Tablet PO 10 mg BEDTIME JOEL Administration Ondansetron HCl 4 mg 09/02/20 09:42 Ondansetron Hcl 4 Mg/2 Ml Vial IVPUSH ONCE PRN Nausea and Vomiting Sevelamer Carbonate 800 mg 08/30/20 12:00 09/02/20 11:51 Sevelamer Carbonate Tablet 800 Mg Tablet PO 800 mg TIDWM JOEL Administration Sodium Chloride 3 ml 08/19/20 00:00 09/02/20 10:59 0.9 % Sodium Chloride Flush 3 Ml Syringe IVFLUSH Not Given QSHIFT [facility] Venlafaxine HCl 37.5 mg 08/29/20 09:00 09/02/20 10:47 Venlafaxine Hcl Er 37.5 Mg Cap.Er.24h PO 37.5 mg DAILY JOEL Administration Vitamin D 25 mcg 08/30/20 09:00 09/02/20 10:47 Cholecalciferol (Vitamin D3) 25 Mcg Tablet PO 25 mcg DAILY JOEL Administration Home Medications Medication Instructions Recorded Confirmed Last Taken Type amlodipine 1 tab PO QAM 05/17/20 08/19/20 08/17/20 08:30 History aspirin 1 tab PO QAM 05/17/20 08/19/20 08/17/20 08:30 History atorvastatin 1 tab PO BEDTIME 05/17/20 08/19/20 08/17/20 20:00 History cholecalciferol (vitamin D3) 1 cap PO QAM 05/17/20 08/19/20 08/17/20 08:30 History [Vitamin D3] cilostazol 100 mg PO BID@1200,2100 05/17/20 08/19/20 08/17/20 20:00 History clopidogrel 1 tab PO QAM 05/17/20 08/19/20 08/17/20 08:30 History ferrous sulfate 1 tab PO QAM 05/17/20 08/19/20 08/17/20 08:30 History insulin lispro [Humalog KwikPen 10 unit SUBCUT TIDAC 05/17/20 08/19/20 08/17/20 19:00 History Insulin] 40 units levothyroxine 1 tab PO QAM 05/17/20 08/19/20 08/18/20 20:30 History loratadine 1 tab PO QAM 05/17/20 08/19/20 08/18/20 20:30 History metoprolol tartrate 1 tab PO BID 05/17/20 08/19/20 08/17/20 20:00 History montelukast 1 tab PO BEDTIME 05/17/20 08/19/20 08/17/20 20:00 History pregabalin 1 cap PO BID 05/17/20 08/19/20 08/17/20 20:00 History venlafaxine 1 cap PO QAM 05/17/20 08/19/20 08/18/20 08:30 History Physical Exam Vital Signs: Vital Signs: Last Vital Signs Temp 97.6 F 09/02/20 11:22 Pulse 74 09/02/20 11:22 Resp 13 09/02/20 11:22 BP 181/82 H 09/02/20 11:22 Pulse Ox 95 09/02/20 11:22 Body Mass Index 32.0 Const: General: alert Neck: Neck: Yes normal visual inspection, Yes full ROM and Yes no lymphadenopathy Chest: Chest palpation & inspection: normal inspection of the chest Resp: Auscultation: crackles bilateral at the base and diminished lung sounds Cardio: Rate: regular rate Rhythm: regular rhythm Heart sounds: S1 normal heart sound present and S2 normal heart sound present GI: Palpation (GI): Soft to palpation and nontender Auscultation: normal bowel sounds : General: Yes no CVA tenderness Back/Spine/Pelvis: Back: no CVA tenderness Skin: General skin exam: rashes and/or lesions noted Results Laboratory Findings CBC and BMP: 09/02/20 06:02 09/02/20 06:01 ABG, PT/INR, D-dimer: PT/INR, D-dimer PT 13.1 SEC (10.8-13.0) H 09/02/20 06:02 INR 1.1 (0.9-1.1) 09/02/20 06:02 Abnormal lab findings: Abnormal Labs 08/18/20 08/18/20 08/18/20 15:00 15:00 15:00 WBC 12.2 H RBC 3.70 L Hgb 10.2 L Hct 31.6 L MCH MCHC Plt Count Immature Gran % (Auto) 0.7 H Neut % (Auto) 82.5 H Lymph % (Auto) 7.1 L Cotton % (Auto) Eos % (Auto) Lymph # (Auto) 0.9 L Cotton # (Auto) Eos # (Auto) Abs Immat Gran (auto) 0.09 H Absolute Neuts (auto) 10.1 H Absolute Nucleated RBC ESR 100 H PT 14.7 H D INR 1.2 H APTT ABG pH at Pt Temp ABG pH (Temp Correct) ABG pCO2 at Pt Temp ABG pCO2 (Temp Corrct ABG pO2 at Pt Temp ABG pO2 (Temp Correct ABG HCO3 VBG pH VBG HCO3 Sodium Potassium Chloride Carbon Dioxide Anion Gap BUN Creatinine POC Glucose Random Glucose Calcium Ionized Calcium Phosphorus Alkaline Phosphatase C-Reactive Protein B-Natriuretic Peptide NT-Pro-B Natriuret Pep Total Protein Albumin Calcium (PTH Intact) Urine Protein Urine Blood Random Vancomycin Complement C3 Complement C4 08/18/20 08/19/20 08/19/20 15:00 06:04 06:04 WBC 12.0 H RBC 3.57 L Hgb 9.8 L Hct 31.3 L MCH MCHC Plt Count Immature Gran % (Auto) 0.5 H Neut % (Auto) Lymph % (Auto) 12.5 L Cotton % (Auto) 11.3 H Eos % (Auto) Lymph # (Auto) Cotton # (Auto) 1.4 H Eos # (Auto) Abs Immat Gran (auto) 0.06 H Absolute Neuts (auto) 8.7 H Absolute Nucleated RBC ESR PT INR APTT ABG pH at Pt Temp ABG pH (Temp Correct) ABG pCO2 at Pt Temp ABG pCO2 (Temp Corrct ABG pO2 at Pt Temp ABG pO2 (Temp Correct ABG HCO3 VBG pH VBG HCO3 Sodium 134 L Potassium 3.2 L Chloride Carbon Dioxide 21 L Anion Gap BUN 26 H 26 H Creatinine 2.31 H 2.26 H POC Glucose Random Glucose 363 H* 193 H D Calcium 5.8 L* D 6.0 L* Ionized Calcium Phosphorus Alkaline Phosphatase C-Reactive Protein 23.18 H B-Natriuretic Peptide NT-Pro-B Natriuret Pep Total Protein Albumin 2.8 L Calcium (PTH Intact) Urine Protein Urine Blood Random Vancomycin Complement C3 Complement C4 08/19/20 08/19/20 08/19/20 07:45 11:32 16:08 WBC RBC Hgb Hct MCH MCHC Plt Count Immature Gran % (Auto) Neut % (Auto) Lymph % (Auto) Cotton % (Auto) Eos % (Auto) Lymph # (Auto) Cotton # (Auto) Eos # (Auto) Abs Immat Gran (auto) Absolute Neuts (auto) Absolute Nucleated RBC ESR PT INR APTT ABG pH at Pt Temp ABG pH (Temp Correct) ABG pCO2 at Pt Temp ABG pCO2 (Temp Corrct ABG pO2 at Pt Temp ABG pO2 (Temp Correct ABG HCO3 VBG pH VBG HCO3 Sodium Potassium Chloride Carbon Dioxide Anion Gap BUN Creatinine POC Glucose 168 H 223 H 168 H Random Glucose Calcium Ionized Calcium Phosphorus Alkaline Phosphatase C-Reactive Protein B-Natriuretic Peptide NT-Pro-B Natriuret Pep Total Protein Albumin Calcium (PTH Intact) Urine Protein Urine Blood Random Vancomycin Complement C3 Complement C4 08/19/20 08/20/20 08/20/20 20:08 07:18 09:44 WBC RBC Hgb Hct MCH MCHC Plt Count Immature Gran % (Auto) Neut % (Auto) Lymph % (Auto) Cotton % (Auto) Eos % (Auto) Lymph # (Auto) Cotton # (Auto) Eos # (Auto) Abs Immat Gran (auto) Absolute Neuts (auto) Absolute Nucleated RBC ESR PT INR APTT ABG pH at Pt Temp ABG pH (Temp Correct) ABG pCO2 at Pt Temp ABG pCO2 (Temp Corrct ABG pO2 at Pt Temp ABG pO2 (Temp Correct ABG HCO3 VBG pH VBG HCO3 Sodium Potassium Chloride 109 H Carbon Dioxide 17 L Anion Gap BUN 32 H Creatinine 2.66 H POC Glucose 160 H 142 H Random Glucose 117 H D Calcium 5.9 L* Ionized Calcium Phosphorus Alkaline Phosphatase C-Reactive Protein B-Natriuretic Peptide NT-Pro-B Natriuret Pep Total Protein Albumin Calcium (PTH Intact) Urine Protein Urine Blood Random Vancomycin Complement C3 Complement C4 08/20/20 08/20/20 08/21/20 20:17 20:36 07:19 WBC RBC Hgb Hct MCH MCHC Plt Count Immature Gran % (Auto) Neut % (Auto) Lymph % (Auto) Cotton % (Auto) Eos % (Auto) Lymph # (Auto) Cotton # (Auto) Eos # (Auto) Abs Immat Gran (auto) Absolute Neuts (auto) Absolute Nucleated RBC ESR PT INR APTT ABG pH at Pt Temp ABG pH (Temp Correct) ABG pCO2 at Pt Temp ABG pCO2 (Temp Corrct ABG pO2 at Pt Temp ABG pO2 (Temp Correct ABG HCO3 VBG pH VBG HCO3 Sodium Potassium Chloride Carbon Dioxide Anion Gap BUN Creatinine POC Glucose 165 H 142 H Random Glucose Calcium Ionized Calcium Phosphorus Alkaline Phosphatase C-Reactive Protein B-Natriuretic Peptide NT-Pro-B Natriuret Pep Total Protein Albumin Calcium (PTH Intact) Urine Protein Urine Blood Random Vancomycin 13.8 L Complement C3 Complement C4 08/21/20 08/21/20 08/21/20 08:41 11:25 14:58 WBC RBC Hgb Hct MCH MCHC Plt Count Immature Gran % (Auto) Neut % (Auto) Lymph % (Auto) Cotton % (Auto) Eos % (Auto) Lymph # (Auto) Cotton # (Auto) Eos # (Auto) Abs Immat Gran (auto) Absolute Neuts (auto) Absolute Nucleated RBC ESR PT INR APTT ABG pH at Pt Temp ABG pH (Temp Correct) ABG pCO2 at Pt Temp ABG pCO2 (Temp Corrct ABG pO2 at Pt Temp ABG pO2 (Temp Correct ABG HCO3 VBG pH VBG HCO3 Sodium 133 L Potassium Chloride Carbon Dioxide 15 L Anion Gap BUN 36 H Creatinine 3.22 H POC Glucose 171 H Random Glucose 199 H D Calcium 6.4 L D 7.1 L D Ionized Calcium Phosphorus Alkaline Phosphatase C-Reactive Protein B-Natriuretic Peptide NT-Pro-B Natriuret Pep Total Protein Albumin Calcium (PTH Intact) Urine Protein Urine Blood Random Vancomycin Complement C3 Complement C4 08/21/20 08/21/20 08/22/20 14:58 15:49 07:37 WBC RBC Hgb Hct MCH MCHC Plt Count Immature Gran % (Auto) Neut % (Auto) Lymph % (Auto) Cotton % (Auto) Eos % (Auto) Lymph # (Auto) Cotton # (Auto) Eos # (Auto) Abs Immat Gran (auto) Absolute Neuts (auto) Absolute Nucleated RBC ESR PT INR APTT ABG pH at Pt Temp ABG pH (Temp Correct) ABG pCO2 at Pt Temp ABG pCO2 (Temp Corrct ABG pO2 at Pt Temp ABG pO2 (Temp Correct ABG HCO3 VBG pH VBG HCO3 Sodium Potassium Chloride Carbon Dioxide Anion Gap BUN Creatinine POC Glucose 212 H Random Glucose Calcium Ionized Calcium 4.0 L Phosphorus Alkaline Phosphatase C-Reactive Protein B-Natriuretic Peptide NT-Pro-B Natriuret Pep Total Protein Albumin Calcium (PTH Intact) Urine Protein Urine Blood Random Vancomycin Complement C3 60 L Complement C4 11 L 08/22/20 08/22/20 08/22/20 07:37 07:38 08:07 WBC RBC Hgb Hct MCH MCHC Plt Count Immature Gran % (Auto) Neut % (Auto) Lymph % (Auto) Cotton % (Auto) Eos % (Auto) Lymph # (Auto) Cotton # (Auto) Eos # (Auto) Abs Immat Gran (auto) Absolute Neuts (auto) Absolute Nucleated RBC ESR PT INR APTT ABG pH at Pt Temp ABG pH (Temp Correct) ABG pCO2 at Pt Temp ABG pCO2 (Temp Corrct ABG pO2 at Pt Temp ABG pO2 (Temp Correct ABG HCO3 VBG pH VBG HCO3 Sodium Potassium Chloride Carbon Dioxide 14 L Anion Gap BUN 44 H Creatinine 3.76 H POC Glucose 135 H Random Glucose 139 H Calcium 7.0 L Ionized Calcium Phosphorus 5.2 H Alkaline Phosphatase C-Reactive Protein B-Natriuretic Peptide NT-Pro-B Natriuret Pep Total Protein Albumin 2.5 L Calcium (PTH Intact) 6.8 L Urine Protein Urine Blood Random Vancomycin Complement C3 Complement C4 08/22/20 08/22/20 08/22/20 12:33 13:20 16:25 WBC RBC Hgb Hct MCH MCHC Plt Count Immature Gran % (Auto) Neut % (Auto) Lymph % (Auto) Cotton % (Auto) Eos % (Auto) Lymph # (Auto) Cotton # (Auto) Eos # (Auto) Abs Immat Gran (auto) Absolute Neuts (auto) Absolute Nucleated RBC ESR PT INR APTT ABG pH at Pt Temp ABG pH (Temp Correct) ABG pCO2 at Pt Temp ABG pCO2 (Temp Corrct ABG pO2 at Pt Temp ABG pO2 (Temp Correct ABG HCO3 VBG pH VBG HCO3 Sodium Potassium Chloride Carbon Dioxide Anion Gap BUN Creatinine POC Glucose 166 H 164 H Random Glucose Calcium Ionized Calcium Phosphorus Alkaline Phosphatase C-Reactive Protein B-Natriuretic Peptide NT-Pro-B Natriuret Pep Total Protein Albumin Calcium (PTH Intact) Urine Protein 2+ H Urine Blood 2+ H Random Vancomycin Complement C3 Complement C4 08/22/20 08/23/20 08/23/20 20:17 06:29 06:29 WBC 13.7 H RBC 3.29 L Hgb 8.9 L Hct 28.6 L MCH MCHC Plt Count Immature Gran % (Auto) Neut % (Auto) Lymph % (Auto) Cotton % (Auto) Eos % (Auto) Lymph # (Auto) Cotton # (Auto) Eos # (Auto) Abs Immat Gran (auto) Absolute Neuts (auto) Absolute Nucleated RBC ESR PT INR APTT ABG pH at Pt Temp ABG pH (Temp Correct) ABG pCO2 at Pt Temp ABG pCO2 (Temp Corrct ABG pO2 at Pt Temp ABG pO2 (Temp Correct ABG HCO3 VBG pH VBG HCO3 Sodium Potassium Chloride 110 H Carbon Dioxide 16 L Anion Gap BUN 47 H Creatinine 3.79 H POC Glucose 191 H Random Glucose 199 H D Calcium 6.6 L Ionized Calcium Phosphorus Alkaline Phosphatase C-Reactive Protein B-Natriuretic Peptide NT-Pro-B Natriuret Pep Total Protein Albumin Calcium (PTH Intact) Urine Protein Urine Blood Random Vancomycin Complement C3 Complement C4 08/23/20 08/23/20 08/23/20 07:12 12:01 12:01 WBC RBC Hgb Hct MCH MCHC Plt Count Immature Gran % (Auto) Neut % (Auto) Lymph % (Auto) Cotton % (Auto) Eos % (Auto) Lymph # (Auto) Cotton # (Auto) Eos # (Auto) Abs Immat Gran (auto) Absolute Neuts (auto) Absolute Nucleated RBC ESR PT INR APTT ABG pH at Pt Temp 7.27 L ABG pH (Temp Correct) 7.27 L ABG pCO2 at Pt Temp 29 L ABG pCO2 (Temp Corrct 28 L ABG pO2 at Pt Temp 75 L ABG pO2 (Temp Correct 73 L ABG HCO3 13 L VBG pH VBG HCO3 Sodium Potassium Chloride Carbon Dioxide Anion Gap BUN Creatinine POC Glucose 189 H 191 H Random Glucose Calcium Ionized Calcium Phosphorus Alkaline Phosphatase C-Reactive Protein B-Natriuretic Peptide NT-Pro-B Natriuret Pep Total Protein Albumin Calcium (PTH Intact) Urine Protein Urine Blood Random Vancomycin Complement C3 Complement C4 08/23/20 08/23/20 08/24/20 16:18 20:17 04:42 WBC RBC Hgb Hct MCH MCHC Plt Count Immature Gran % (Auto) Neut % (Auto) Lymph % (Auto) Cotton % (Auto) Eos % (Auto) Lymph # (Auto) Cotton # (Auto) Eos # (Auto) Abs Immat Gran (auto) Absolute Neuts (auto) Absolute Nucleated RBC ESR PT INR APTT ABG pH at Pt Temp ABG pH (Temp Correct) ABG pCO2 at Pt Temp ABG pCO2 (Temp Corrct ABG pO2 at Pt Temp ABG pO2 (Temp Correct ABG HCO3 VBG pH VBG HCO3 Sodium Potassium Chloride 113 H Carbon Dioxide 13 L Anion Gap BUN 46 H Creatinine 3.59 H POC Glucose 157 H 131 H Random Glucose 146 H Calcium 6.7 L Ionized Calcium Phosphorus Alkaline Phosphatase C-Reactive Protein B-Natriuretic Peptide NT-Pro-B Natriuret Pep Total Protein Albumin Calcium (PTH Intact) Urine Protein Urine Blood Random Vancomycin Complement C3 Complement C4 08/24/20 08/24/20 08/24/20 07:29 09:51 11:09 WBC 17.6 H RBC 3.32 L Hgb 9.1 L Hct 29.4 L MCH MCHC Plt Count Immature Gran % (Auto) Neut % (Auto) Lymph % (Auto) Cotton % (Auto) Eos % (Auto) Lymph # (Auto) Cotton # (Auto) Eos # (Auto) Abs Immat Gran (auto) Absolute Neuts (auto) Absolute Nucleated RBC 0.030 H ESR PT INR APTT ABG pH at Pt Temp ABG pH (Temp Correct) ABG pCO2 at Pt Temp ABG pCO2 (Temp Corrct ABG pO2 at Pt Temp ABG pO2 (Temp Correct ABG HCO3 VBG pH VBG HCO3 Sodium Potassium Chloride Carbon Dioxide Anion Gap BUN Creatinine POC Glucose 178 H 174 H Random Glucose Calcium Ionized Calcium Phosphorus Alkaline Phosphatase C-Reactive Protein B-Natriuretic Peptide NT-Pro-B Natriuret Pep Total Protein Albumin Calcium (PTH Intact) Urine Protein Urine Blood Random Vancomycin Complement C3 Complement C4 08/24/20 08/24/20 08/25/20 16:08 20:10 04:06 WBC RBC Hgb Hct MCH MCHC Plt Count Immature Gran % (Auto) Neut % (Auto) Lymph % (Auto) Cotton % (Auto) Eos % (Auto) Lymph # (Auto) Cotton # (Auto) Eos # (Auto) Abs Immat Gran (auto) Absolute Neuts (auto) Absolute Nucleated RBC ESR PT INR APTT ABG pH at Pt Temp ABG pH (Temp Correct) ABG pCO2 at Pt Temp ABG pCO2 (Temp Corrct ABG pO2 at Pt Temp ABG pO2 (Temp Correct ABG HCO3 VBG pH VBG HCO3 Sodium Potassium Chloride Carbon Dioxide Anion Gap BUN Creatinine POC Glucose 213 H 217 H 244 H Random Glucose Calcium Ionized Calcium Phosphorus Alkaline Phosphatase C-Reactive Protein B-Natriuretic Peptide NT-Pro-B Natriuret Pep Total Protein Albumin Calcium (PTH Intact) Urine Protein Urine Blood Random Vancomycin Complement C3 Complement C4 08/25/20 08/25/20 08/25/20 04:46 04:46 04:46 WBC 23.6 H RBC 3.32 L Hgb 9.1 L Hct 30.3 L MCH MCHC 30.0 L Plt Count 402 H Immature Gran % (Auto) Neut % (Auto) Lymph % (Auto) Cotton % (Auto) Eos % (Auto) Lymph # (Auto) Cotton # (Auto) Eos # (Auto) Abs Immat Gran (auto) Absolute Neuts (auto) Absolute Nucleated RBC 0.040 H ESR PT INR APTT ABG pH at Pt Temp ABG pH (Temp Correct) ABG pCO2 at Pt Temp ABG pCO2 (Temp Corrct ABG pO2 at Pt Temp ABG pO2 (Temp Correct ABG HCO3 VBG pH VBG HCO3 Sodium Potassium 5.2 H Chloride 115 H Carbon Dioxide 7 L* D Anion Gap 25 H BUN 54 H Creatinine 3.93 H POC Glucose Random Glucose 276 H D Calcium 6.5 L Ionized Calcium Phosphorus 6.8 H Alkaline Phosphatase C-Reactive Protein B-Natriuretic Peptide NT-Pro-B Natriuret Pep 41382 H Total Protein Albumin Calcium (PTH Intact) Urine Protein Urine Blood Random Vancomycin Complement C3 Complement C4 08/25/20 08/25/20 08/25/20 04:46 04:50 07:11 WBC RBC Hgb Hct MCH MCHC Plt Count Immature Gran % (Auto) Neut % (Auto) Lymph % (Auto) Cotton % (Auto) Eos % (Auto) Lymph # (Auto) Cotton # (Auto) Eos # (Auto) Abs Immat Gran (auto) Absolute Neuts (auto) Absolute Nucleated RBC ESR PT INR APTT ABG pH at Pt Temp 7.07 L* ABG pH (Temp Correct) ABG pCO2 at Pt Temp 27 L ABG pCO2 (Temp Corrct ABG pO2 at Pt Temp 73 L ABG pO2 (Temp Correct ABG HCO3 8 L VBG pH VBG HCO3 Sodium Potassium Chloride Carbon Dioxide Anion Gap BUN Creatinine POC Glucose 268 H Random Glucose Calcium Ionized Calcium Phosphorus Alkaline Phosphatase C-Reactive Protein B-Natriuretic Peptide 748 H NT-Pro-B Natriuret Pep Total Protein Albumin Calcium (PTH Intact) Urine Protein Urine Blood Random Vancomycin Complement C3 Complement C4 08/25/20 08/25/20 08/25/20 11:15 16:22 20:16 WBC RBC Hgb Hct MCH MCHC Plt Count Immature Gran % (Auto) Neut % (Auto) Lymph % (Auto) Cotton % (Auto) Eos % (Auto) Lymph # (Auto) Cotton # (Auto) Eos # (Auto) Abs Immat Gran (auto) Absolute Neuts (auto) Absolute Nucleated RBC ESR PT INR APTT ABG pH at Pt Temp ABG pH (Temp Correct) ABG pCO2 at Pt Temp ABG pCO2 (Temp Corrct ABG pO2 at Pt Temp ABG pO2 (Temp Correct ABG HCO3 VBG pH VBG HCO3 Sodium Potassium Chloride 109 H Carbon Dioxide Anion Gap BUN 64 H Creatinine 4.19 H* POC Glucose 323 H 294 H Random Glucose 292 H Calcium 5.9 L* D Ionized Calcium Phosphorus 5.1 H Alkaline Phosphatase C-Reactive Protein B-Natriuretic Peptide NT-Pro-B Natriuret Pep Total Protein Albumin Calcium (PTH Intact) Urine Protein Urine Blood Random Vancomycin Complement C3 Complement C4 08/25/20 08/25/20 08/26/20 20:17 20:52 05:32 WBC RBC Hgb Hct MCH MCHC Plt Count Immature Gran % (Auto) Neut % (Auto) Lymph % (Auto) Cotton % (Auto) Eos % (Auto) Lymph # (Auto) Cotton # (Auto) Eos # (Auto) Abs Immat Gran (auto) Absolute Neuts (auto) Absolute Nucleated RBC ESR PT INR APTT ABG pH at Pt Temp ABG pH (Temp Correct) ABG pCO2 at Pt Temp ABG pCO2 (Temp Corrct ABG pO2 at Pt Temp ABG pO2 (Temp Correct ABG HCO3 VBG pH VBG HCO3 21 L 20 L Sodium Potassium Chloride Carbon Dioxide Anion Gap BUN Creatinine POC Glucose 260 H Random Glucose Calcium Ionized Calcium Phosphorus Alkaline Phosphatase C-Reactive Protein B-Natriuretic Peptide NT-Pro-B Natriuret Pep Total Protein Albumin Calcium (PTH Intact) Urine Protein Urine Blood Random Vancomycin Complement C3 Complement C4 08/26/20 08/26/20 08/26/20 05:35 05:35 05:35 WBC 18.3 H RBC 3.20 L Hgb 8.8 L Hct 26.9 L MCH MCHC Plt Count Immature Gran % (Auto) 1.6 H Neut % (Auto) 88.1 H Lymph % (Auto) 5.5 L Cotton % (Auto) Eos % (Auto) Lymph # (Auto) 1.0 L Cotton # (Auto) Eos # (Auto) Abs Immat Gran (auto) 0.30 H Absolute Neuts (auto) 16.2 H Absolute Nucleated RBC 0.040 H ESR PT INR APTT ABG pH at Pt Temp ABG pH (Temp Correct) ABG pCO2 at Pt Temp ABG pCO2 (Temp Corrct ABG pO2 at Pt Temp ABG pO2 (Temp Correct ABG HCO3 VBG pH VBG HCO3 Sodium Potassium Chloride Carbon Dioxide Anion Gap BUN 70 H Creatinine 4.25 H* POC Glucose Random Glucose 347 H Calcium 5.7 L* Ionized Calcium Phosphorus 5.4 H Alkaline Phosphatase 149 H D C-Reactive Protein B-Natriuretic Peptide NT-Pro-B Natriuret Pep Total Protein 5.8 L Albumin 2.1 L Calcium (PTH Intact) Urine Protein Urine Blood Random Vancomycin Complement C3 Complement C4 08/26/20 08/26/20 08/26/20 07:48 09:55 12:58 WBC RBC Hgb Hct MCH MCHC Plt Count Immature Gran % (Auto) Neut % (Auto) Lymph % (Auto) Cotton % (Auto) Eos % (Auto) Lymph # (Auto) Cotton # (Auto) Eos # (Auto) Abs Immat Gran (auto) Absolute Neuts (auto) Absolute Nucleated RBC ESR PT INR APTT ABG pH at Pt Temp ABG pH (Temp Correct) ABG pCO2 at Pt Temp ABG pCO2 (Temp Corrct ABG pO2 at Pt Temp ABG pO2 (Temp Correct ABG HCO3 VBG pH VBG HCO3 Sodium Potassium Chloride Carbon Dioxide Anion Gap BUN Creatinine POC Glucose 324 H 305 H 302 H Random Glucose Calcium Ionized Calcium Phosphorus Alkaline Phosphatase C-Reactive Protein B-Natriuretic Peptide NT-Pro-B Natriuret Pep Total Protein Albumin Calcium (PTH Intact) Urine Protein Urine Blood Random Vancomycin Complement C3 Complement C4 08/26/20 08/26/20 08/26/20 15:58 19:21 22:26 WBC RBC Hgb Hct MCH MCHC Plt Count Immature Gran % (Auto) Neut % (Auto) Lymph % (Auto) Cotton % (Auto) Eos % (Auto) Lymph # (Auto) Cotton # (Auto) Eos # (Auto) Abs Immat Gran (auto) Absolute Neuts (auto) Absolute Nucleated RBC ESR PT INR APTT ABG pH at Pt Temp ABG pH (Temp Correct) ABG pCO2 at Pt Temp ABG pCO2 (Temp Corrct ABG pO2 at Pt Temp ABG pO2 (Temp Correct ABG HCO3 VBG pH VBG HCO3 Sodium Potassium Chloride Carbon Dioxide Anion Gap BUN Creatinine POC Glucose 255 H 191 H 169 H Random Glucose Calcium Ionized Calcium Phosphorus Alkaline Phosphatase C-Reactive Protein B-Natriuretic Peptide NT-Pro-B Natriuret Pep Total Protein Albumin Calcium (PTH Intact) Urine Protein Urine Blood Random Vancomycin Complement C3 Complement C4 08/27/20 08/27/20 08/27/20 02:01 05:03 05:03 WBC 15.8 H RBC 3.06 L Hgb 8.4 L Hct 25.4 L MCH MCHC Plt Count Immature Gran % (Auto) 2.4 H Neut % (Auto) 90.4 H Lymph % (Auto) 5.2 L Cotton % (Auto) 1.9 L Eos % (Auto) Lymph # (Auto) 0.8 L Cotton # (Auto) Eos # (Auto) Abs Immat Gran (auto) 0.38 H Absolute Neuts (auto) 14.3 H Absolute Nucleated RBC 0.020 H ESR PT 14.0 H INR 1.2 H APTT ABG pH at Pt Temp ABG pH (Temp Correct) ABG pCO2 at Pt Temp ABG pCO2 (Temp Corrct ABG pO2 at Pt Temp ABG pO2 (Temp Correct ABG HCO3 VBG pH VBG HCO3 Sodium Potassium Chloride Carbon Dioxide Anion Gap BUN Creatinine POC Glucose 168 H Random Glucose Calcium Ionized Calcium Phosphorus Alkaline Phosphatase C-Reactive Protein B-Natriuretic Peptide NT-Pro-B Natriuret Pep Total Protein Albumin Calcium (PTH Intact) Urine Protein Urine Blood Random Vancomycin Complement C3 Complement C4 08/27/20 08/27/20 08/27/20 05:03 05:11 06:01 WBC RBC Hgb Hct MCH MCHC Plt Count Immature Gran % (Auto) Neut % (Auto) Lymph % (Auto) Cotton % (Auto) Eos % (Auto) Lymph # (Auto) Cotton # (Auto) Eos # (Auto) Abs Immat Gran (auto) Absolute Neuts (auto) Absolute Nucleated RBC ESR PT INR APTT ABG pH at Pt Temp ABG pH (Temp Correct) ABG pCO2 at Pt Temp ABG pCO2 (Temp Corrct ABG pO2 at Pt Temp ABG pO2 (Temp Correct ABG HCO3 VBG pH 7.44 H VBG HCO3 40 H Sodium Potassium 2.7 L D Chloride Carbon Dioxide 30 H Anion Gap 22 H BUN 71 H Creatinine 4.32 H* POC Glucose 157 H Random Glucose 174 H D Calcium 5.8 L* Ionized Calcium Phosphorus 4.8 H Alkaline Phosphatase C-Reactive Protein 21.74 H B-Natriuretic Peptide NT-Pro-B Natriuret Pep Total Protein 6.2 L Albumin 2.8 L D Calcium (PTH Intact) Urine Protein Urine Blood Random Vancomycin Complement C3 Complement C4 08/27/20 08/27/20 08/27/20 09:51 12:21 13:53 WBC RBC Hgb Hct MCH MCHC Plt Count Immature Gran % (Auto) Neut % (Auto) Lymph % (Auto) Cotton % (Auto) Eos % (Auto) Lymph # (Auto) Cotton # (Auto) Eos # (Auto) Abs Immat Gran (auto) Absolute Neuts (auto) Absolute Nucleated RBC ESR PT INR APTT ABG pH at Pt Temp ABG pH (Temp Correct) ABG pCO2 at Pt Temp ABG pCO2 (Temp Corrct ABG pO2 at Pt Temp ABG pO2 (Temp Correct ABG HCO3 VBG pH 7.46 H VBG HCO3 38 H Sodium Potassium Chloride Carbon Dioxide Anion Gap BUN Creatinine POC Glucose 177 H 185 H Random Glucose Calcium Ionized Calcium Phosphorus Alkaline Phosphatase C-Reactive Protein B-Natriuretic Peptide NT-Pro-B Natriuret Pep Total Protein Albumin Calcium (PTH Intact) Urine Protein Urine Blood Random Vancomycin Complement C3 Complement C4 08/27/20 08/27/20 08/28/20 18:14 20:43 00:50 WBC RBC Hgb Hct MCH MCHC Plt Count Immature Gran % (Auto) Neut % (Auto) Lymph % (Auto) Cotton % (Auto) Eos % (Auto) Lymph # (Auto) Cotton # (Auto) Eos # (Auto) Abs Immat Gran (auto) Absolute Neuts (auto) Absolute Nucleated RBC ESR PT INR APTT ABG pH at Pt Temp ABG pH (Temp Correct) ABG pCO2 at Pt Temp ABG pCO2 (Temp Corrct ABG pO2 at Pt Temp ABG pO2 (Temp Correct ABG HCO3 VBG pH VBG HCO3 Sodium Potassium 3.0 L Chloride 95 L Carbon Dioxide 35 H Anion Gap BUN 77 H Creatinine 4.63 H* POC Glucose 160 H 167 H Random Glucose 174 H Calcium 6.0 L* Ionized Calcium Phosphorus Alkaline Phosphatase C-Reactive Protein B-Natriuretic Peptide NT-Pro-B Natriuret Pep Total Protein Albumin Calcium (PTH Intact) Urine Protein Urine Blood Random Vancomycin Complement C3 Complement C4 08/28/20 08/28/20 08/28/20 05:05 05:05 05:05 WBC 17.6 H RBC 3.38 L Hgb 9.1 L Hct 28.6 L MCH 26.9 L MCHC Plt Count Immature Gran % (Auto) Neut % (Auto) Lymph % (Auto) Cotton % (Auto) Eos % (Auto) Lymph # (Auto) Cotton # (Auto) Eos # (Auto) Abs Immat Gran (auto) Absolute Neuts (auto) Absolute Nucleated RBC 0.020 H ESR PT INR APTT ABG pH at Pt Temp ABG pH (Temp Correct) ABG pCO2 at Pt Temp ABG pCO2 (Temp Corrct ABG pO2 at Pt Temp ABG pO2 (Temp Correct ABG HCO3 VBG pH VBG HCO3 Sodium Potassium 3.2 L Chloride Carbon Dioxide 34 H Anion Gap BUN 84 H* Creatinine 4.75 H* POC Glucose Random Glucose 159 H Calcium 6.2 L Ionized Calcium Phosphorus 6.1 H Alkaline Phosphatase C-Reactive Protein B-Natriuretic Peptide 1529 H NT-Pro-B Natriuret Pep Total Protein Albumin 2.9 L Calcium (PTH Intact) Urine Protein Urine Blood Random Vancomycin Complement C3 Complement C4 08/28/20 08/28/20 08/28/20 05:08 09:16 13:27 WBC RBC Hgb Hct MCH MCHC Plt Count Immature Gran % (Auto) Neut % (Auto) Lymph % (Auto) Cotton % (Auto) Eos % (Auto) Lymph # (Auto) Cotton # (Auto) Eos # (Auto) Abs Immat Gran (auto) Absolute Neuts (auto) Absolute Nucleated RBC ESR PT INR APTT ABG pH at Pt Temp ABG pH (Temp Correct) ABG pCO2 at Pt Temp ABG pCO2 (Temp Corrct ABG pO2 at Pt Temp ABG pO2 (Temp Correct ABG HCO3 VBG pH VBG HCO3 40 H Sodium Potassium Chloride Carbon Dioxide Anion Gap BUN Creatinine POC Glucose 154 H 177 H Random Glucose Calcium Ionized Calcium Phosphorus Alkaline Phosphatase C-Reactive Protein B-Natriuretic Peptide NT-Pro-B Natriuret Pep Total Protein Albumin Calcium (PTH Intact) Urine Protein Urine Blood Random Vancomycin Complement C3 Complement C4 08/28/20 08/28/20 08/28/20 16:38 21:09 21:17 WBC RBC Hgb Hct MCH MCHC Plt Count Immature Gran % (Auto) Neut % (Auto) Lymph % (Auto) Cotton % (Auto) Eos % (Auto) Lymph # (Auto) Cotton # (Auto) Eos # (Auto) Abs Immat Gran (auto) Absolute Neuts (auto) Absolute Nucleated RBC ESR PT INR APTT ABG pH at Pt Temp ABG pH (Temp Correct) ABG pCO2 at Pt Temp ABG pCO2 (Temp Corrct ABG pO2 at Pt Temp ABG pO2 (Temp Correct ABG HCO3 VBG pH VBG HCO3 Sodium Potassium Chloride 92 L Carbon Dioxide 33 H Anion Gap BUN 95 H* Creatinine 5.23 H* POC Glucose 230 H 334 H Random Glucose 344 H D Calcium 5.9 L* Ionized Calcium Phosphorus Alkaline Phosphatase C-Reactive Protein B-Natriuretic Peptide NT-Pro-B Natriuret Pep Total Protein 6.3 L Albumin 2.7 L Calcium (PTH Intact) Urine Protein Urine Blood Random Vancomycin Complement C3 Complement C4 08/29/20 08/29/20 08/29/20 05:16 05:20 05:20 WBC 13.8 H RBC 3.25 L Hgb 9.0 L Hct 28.0 L MCH MCHC Plt Count Immature Gran % (Auto) 6.2 H Neut % (Auto) 83.1 H Lymph % (Auto) 6.1 L Cotton % (Auto) Eos % (Auto) Lymph # (Auto) 0.8 L Cotton # (Auto) Eos # (Auto) Abs Immat Gran (auto) 0.85 H Absolute Neuts (auto) 11.5 H Absolute Nucleated RBC ESR PT INR APTT ABG pH at Pt Temp ABG pH (Temp Correct) ABG pCO2 at Pt Temp ABG pCO2 (Temp Corrct ABG pO2 at Pt Temp ABG pO2 (Temp Correct ABG HCO3 VBG pH VBG HCO3 37 H Sodium Potassium Chloride Carbon Dioxide Anion Gap BUN Creatinine POC Glucose Random Glucose Calcium Ionized Calcium Phosphorus 6.9 H Alkaline Phosphatase C-Reactive Protein B-Natriuretic Peptide NT-Pro-B Natriuret Pep Total Protein Albumin 2.9 L Calcium (PTH Intact) Urine Protein Urine Blood Random Vancomycin Complement C3 Complement C4 08/29/20 08/29/20 08/29/20 05:20 07:57 11:33 WBC RBC Hgb Hct MCH MCHC Plt Count Immature Gran % (Auto) Neut % (Auto) Lymph % (Auto) Cotton % (Auto) Eos % (Auto) Lymph # (Auto) Cotton # (Auto) Eos # (Auto) Abs Immat Gran (auto) Absolute Neuts (auto) Absolute Nucleated RBC ESR PT INR APTT ABG pH at Pt Temp ABG pH (Temp Correct) ABG pCO2 at Pt Temp ABG pCO2 (Temp Corrct ABG pO2 at Pt Temp ABG pO2 (Temp Correct ABG HCO3 VBG pH VBG HCO3 Sodium Potassium Chloride 92 L Carbon Dioxide 31 H Anion Gap 23 H BUN 97 H* Creatinine 5.23 H* POC Glucose 304 H 282 H Random Glucose 318 H Calcium 6.3 L D Ionized Calcium Phosphorus Alkaline Phosphatase C-Reactive Protein B-Natriuretic Peptide NT-Pro-B Natriuret Pep Total Protein Albumin 2.9 L Calcium (PTH Intact) Urine Protein Urine Blood Random Vancomycin Complement C3 Complement C4 08/29/20 08/29/20 08/30/20 16:42 21:12 05:35 WBC RBC Hgb Hct MCH MCHC Plt Count Immature Gran % (Auto) Neut % (Auto) Lymph % (Auto) Cotton % (Auto) Eos % (Auto) Lymph # (Auto) Cotton # (Auto) Eos # (Auto) Abs Immat Gran (auto) Absolute Neuts (auto) Absolute Nucleated RBC ESR PT INR APTT ABG pH at Pt Temp ABG pH (Temp Correct) ABG pCO2 at Pt Temp ABG pCO2 (Temp Corrct ABG pO2 at Pt Temp ABG pO2 (Temp Correct ABG HCO3 VBG pH VBG HCO3 Sodium Potassium Chloride Carbon Dioxide Anion Gap BUN Creatinine POC Glucose 230 H 207 H Random Glucose Calcium Ionized Calcium Phosphorus Alkaline Phosphatase C-Reactive Protein B-Natriuretic Peptide 693 H NT-Pro-B Natriuret Pep Total Protein Albumin Calcium (PTH Intact) Urine Protein Urine Blood Random Vancomycin Complement C3 Complement C4 08/30/20 08/30/20 08/30/20 05:35 05:35 05:35 WBC 16.8 H RBC 3.40 L Hgb 9.3 L Hct 29.3 L MCH MCHC Plt Count Immature Gran % (Auto) 3.9 H Neut % (Auto) 86.2 H Lymph % (Auto) 4.6 L Cotton % (Auto) Eos % (Auto) Lymph # (Auto) 0.8 L Cotton # (Auto) Eos # (Auto) Abs Immat Gran (auto) 0.66 H Absolute Neuts (auto) 14.5 H Absolute Nucleated RBC ESR PT 13.1 H INR APTT ABG pH at Pt Temp ABG pH (Temp Correct) ABG pCO2 at Pt Temp ABG pCO2 (Temp Corrct ABG pO2 at Pt Temp ABG pO2 (Temp Correct ABG HCO3 VBG pH VBG HCO3 Sodium Potassium Chloride 92 L Carbon Dioxide 32 H Anion Gap 22 H BUN 107 H* Creatinine 5.54 H* POC Glucose Random Glucose 194 H D Calcium 5.7 L* D Ionized Calcium Phosphorus 7.4 H Alkaline Phosphatase C-Reactive Protein B-Natriuretic Peptide NT-Pro-B Natriuret Pep Total Protein Albumin Calcium (PTH Intact) Urine Protein Urine Blood Random Vancomycin Complement C3 Complement C4 08/30/20 08/30/20 08/30/20 05:35 05:39 07:17 WBC RBC Hgb Hct MCH MCHC Plt Count Immature Gran % (Auto) Neut % (Auto) Lymph % (Auto) Cotton % (Auto) Eos % (Auto) Lymph # (Auto) Cotton # (Auto) Eos # (Auto) Abs Immat Gran (auto) Absolute Neuts (auto) Absolute Nucleated RBC ESR PT INR APTT ABG pH at Pt Temp ABG pH (Temp Correct) ABG pCO2 at Pt Temp ABG pCO2 (Temp Corrct ABG pO2 at Pt Temp ABG pO2 (Temp Correct ABG HCO3 VBG pH VBG HCO3 37 H Sodium Potassium Chloride Carbon Dioxide Anion Gap BUN Creatinine POC Glucose 213 H Random Glucose Calcium Ionized Calcium Phosphorus Alkaline Phosphatase C-Reactive Protein B-Natriuretic Peptide NT-Pro-B Natriuret Pep Total Protein Albumin 2.8 L Calcium (PTH Intact) Urine Protein Urine Blood Random Vancomycin Complement C3 Complement C4 08/30/20 08/30/20 08/30/20 11:17 16:23 20:32 WBC RBC Hgb Hct MCH MCHC Plt Count Immature Gran % (Auto) Neut % (Auto) Lymph % (Auto) Cotton % (Auto) Eos % (Auto) Lymph # (Auto) Cotton # (Auto) Eos # (Auto) Abs Immat Gran (auto) Absolute Neuts (auto) Absolute Nucleated RBC ESR PT INR APTT ABG pH at Pt Temp ABG pH (Temp Correct) ABG pCO2 at Pt Temp ABG pCO2 (Temp Corrct ABG pO2 at Pt Temp ABG pO2 (Temp Correct ABG HCO3 VBG pH VBG HCO3 Sodium Potassium Chloride Carbon Dioxide Anion Gap BUN Creatinine POC Glucose 246 H 186 H 201 H Random Glucose Calcium Ionized Calcium Phosphorus Alkaline Phosphatase C-Reactive Protein B-Natriuretic Peptide NT-Pro-B Natriuret Pep Total Protein Albumin Calcium (PTH Intact) Urine Protein Urine Blood Random Vancomycin Complement C3 Complement C4 08/31/20 08/31/20 08/31/20 05:18 05:18 05:18 WBC 13.0 H RBC 3.35 L Hgb 9.1 L Hct 28.7 L MCH MCHC Plt Count Immature Gran % (Auto) 2.6 H Neut % (Auto) 87.6 H Lymph % (Auto) 5.7 L Cotton % (Auto) Eos % (Auto) Lymph # (Auto) 0.7 L Cotton # (Auto) Eos # (Auto) Abs Immat Gran (auto) 0.34 H Absolute Neuts (auto) 11.4 H Absolute Nucleated RBC ESR PT 13.5 H INR APTT 42.1 H D ABG pH at Pt Temp ABG pH (Temp Correct) ABG pCO2 at Pt Temp ABG pCO2 (Temp Corrct ABG pO2 at Pt Temp ABG pO2 (Temp Correct ABG HCO3 VBG pH VBG HCO3 Sodium Potassium Chloride 91 L Carbon Dioxide 36 H Anion Gap BUN 102 H* Creatinine 5.22 H* POC Glucose Random Glucose 167 H Calcium 5.5 L* Ionized Calcium Phosphorus 6.8 H Alkaline Phosphatase C-Reactive Protein B-Natriuretic Peptide NT-Pro-B Natriuret Pep Total Protein Albumin Calcium (PTH Intact) Urine Protein Urine Blood Random Vancomycin Complement C3 Complement C4 08/31/20 08/31/20 08/31/20 05:18 05:28 07:05 WBC RBC Hgb Hct MCH MCHC Plt Count Immature Gran % (Auto) Neut % (Auto) Lymph % (Auto) Cotton % (Auto) Eos % (Auto) Lymph # (Auto) Cotton # (Auto) Eos # (Auto) Abs Immat Gran (auto) Absolute Neuts (auto) Absolute Nucleated RBC ESR PT INR APTT ABG pH at Pt Temp ABG pH (Temp Correct) ABG pCO2 at Pt Temp ABG pCO2 (Temp Corrct ABG pO2 at Pt Temp ABG pO2 (Temp Correct ABG HCO3 VBG pH VBG HCO3 38 H Sodium Potassium Chloride Carbon Dioxide Anion Gap BUN Creatinine POC Glucose 176 H Random Glucose Calcium Ionized Calcium Phosphorus Alkaline Phosphatase C-Reactive Protein B-Natriuretic Peptide NT-Pro-B Natriuret Pep Total Protein Albumin 2.8 L Calcium (PTH Intact) Urine Protein Urine Blood Random Vancomycin Complement C3 Complement C4 08/31/20 08/31/20 08/31/20 11:09 17:21 20:18 WBC RBC Hgb Hct MCH MCHC Plt Count Immature Gran % (Auto) Neut % (Auto) Lymph % (Auto) Cotton % (Auto) Eos % (Auto) Lymph # (Auto) Cotton # (Auto) Eos # (Auto) Abs Immat Gran (auto) Absolute Neuts (auto) Absolute Nucleated RBC ESR PT INR APTT ABG pH at Pt Temp ABG pH (Temp Correct) ABG pCO2 at Pt Temp ABG pCO2 (Temp Corrct ABG pO2 at Pt Temp ABG pO2 (Temp Correct ABG HCO3 VBG pH VBG HCO3 Sodium Potassium Chloride Carbon Dioxide Anion Gap BUN Creatinine POC Glucose 216 H 180 H 164 H Random Glucose Calcium Ionized Calcium Phosphorus Alkaline Phosphatase C-Reactive Protein B-Natriuretic Peptide NT-Pro-B Natriuret Pep Total Protein Albumin Calcium (PTH Intact) Urine Protein Urine Blood Random Vancomycin Complement C3 Complement C4 09/01/20 09/01/20 09/01/20 06:50 06:50 06:50 WBC 13.3 H RBC 3.23 L Hgb 8.7 L Hct 27.9 L MCH 26.9 L MCHC Plt Count Immature Gran % (Auto) 1.4 H Neut % (Auto) 77.0 H Lymph % (Auto) 10.3 L Cotton % (Auto) Eos % (Auto) 4.3 H Lymph # (Auto) Cotton # (Auto) Eos # (Auto) 0.6 H Abs Immat Gran (auto) 0.19 H Absolute Neuts (auto) 10.3 H Absolute Nucleated RBC ESR PT 13.2 H INR APTT ABG pH at Pt Temp ABG pH (Temp Correct) ABG pCO2 at Pt Temp ABG pCO2 (Temp Corrct ABG pO2 at Pt Temp ABG pO2 (Temp Correct ABG HCO3 VBG pH VBG HCO3 Sodium Potassium Chloride 93 L Carbon Dioxide 36 H Anion Gap BUN 107 H* Creatinine 5.29 H* POC Glucose Random Glucose 144 H Calcium 5.4 L* Ionized Calcium Phosphorus 5.7 H Alkaline Phosphatase C-Reactive Protein B-Natriuretic Peptide NT-Pro-B Natriuret Pep Total Protein Albumin Calcium (PTH Intact) Urine Protein Urine Blood Random Vancomycin Complement C3 Complement C4 09/01/20 09/01/20 09/01/20 06:50 06:58 07:25 WBC RBC Hgb Hct MCH MCHC Plt Count Immature Gran % (Auto) Neut % (Auto) Lymph % (Auto) Cotton % (Auto) Eos % (Auto) Lymph # (Auto) Cotton # (Auto) Eos # (Auto) Abs Immat Gran (auto) Absolute Neuts (auto) Absolute Nucleated RBC ESR PT INR APTT ABG pH at Pt Temp ABG pH (Temp Correct) ABG pCO2 at Pt Temp ABG pCO2 (Temp Corrct ABG pO2 at Pt Temp ABG pO2 (Temp Correct ABG HCO3 VBG pH 7.44 H VBG HCO3 40 H Sodium Potassium Chloride Carbon Dioxide Anion Gap BUN Creatinine POC Glucose 135 H Random Glucose Calcium Ionized Calcium Phosphorus Alkaline Phosphatase C-Reactive Protein B-Natriuretic Peptide NT-Pro-B Natriuret Pep Total Protein Albumin 2.6 L Calcium (PTH Intact) Urine Protein Urine Blood Random Vancomycin Complement C3 Complement C4 09/01/20 09/02/20 09/02/20 11:03 06:01 06:01 WBC RBC Hgb Hct MCH MCHC Plt Count Immature Gran % (Auto) Neut % (Auto) Lymph % (Auto) Cotton % (Auto) Eos % (Auto) Lymph # (Auto) Cotton # (Auto) Eos # (Auto) Abs Immat Gran (auto) Absolute Neuts (auto) Absolute Nucleated RBC ESR PT INR APTT ABG pH at Pt Temp ABG pH (Temp Correct) ABG pCO2 at Pt Temp ABG pCO2 (Temp Corrct ABG pO2 at Pt Temp ABG pO2 (Temp Correct ABG HCO3 VBG pH VBG HCO3 Sodium Potassium Chloride Carbon Dioxide Anion Gap BUN Creatinine POC Glucose 130 H Random Glucose Calcium Ionized Calcium Phosphorus 5.0 H Alkaline Phosphatase C-Reactive Protein B-Natriuretic Peptide NT-Pro-B Natriuret Pep Total Protein Albumin 2.6 L Calcium (PTH Intact) Urine Protein Urine Blood Random Vancomycin Complement C3 Complement C4 09/02/20 09/02/20 09/02/20 06:01 06:02 06:02 WBC 11.4 H RBC 3.40 L Hgb 9.3 L Hct 29.4 L MCH MCHC Plt Count Immature Gran % (Auto) 1.1 H Neut % (Auto) 73.1 H Lymph % (Auto) 10.5 L Cotton % (Auto) Eos % (Auto) 5.0 H Lymph # (Auto) Cotton # (Auto) Eos # (Auto) 0.6 H Abs Immat Gran (auto) 0.13 H Absolute Neuts (auto) Absolute Nucleated RBC ESR PT 13.1 H INR APTT ABG pH at Pt Temp ABG pH (Temp Correct) ABG pCO2 at Pt Temp ABG pCO2 (Temp Corrct ABG pO2 at Pt Temp ABG pO2 (Temp Correct ABG HCO3 VBG pH VBG HCO3 Sodium Potassium Chloride 94 L Carbon Dioxide 34 H Anion Gap BUN 93 H* Creatinine 5.02 H* POC Glucose Random Glucose Calcium 5.6 L* Ionized Calcium Phosphorus Alkaline Phosphatase C-Reactive Protein B-Natriuretic Peptide NT-Pro-B Natriuret Pep Total Protein Albumin Calcium (PTH Intact) Urine Protein Urine Blood Random Vancomycin Complement C3 Complement C4 09/02/20 06:08 WBC RBC Hgb Hct MCH MCHC Plt Count Immature Gran % (Auto) Neut % (Auto) Lymph % (Auto) Cotton % (Auto) Eos % (Auto) Lymph # (Auto) Cotton # (Auto) Eos # (Auto) Abs Immat Gran (auto) Absolute Neuts (auto) Absolute Nucleated RBC ESR PT INR APTT ABG pH at Pt Temp ABG pH (Temp Correct) ABG pCO2 at Pt Temp ABG pCO2 (Temp Corrct ABG pO2 at Pt Temp ABG pO2 (Temp Correct ABG HCO3 VBG pH 7.51 H VBG HCO3 43 H Sodium Potassium Chloride Carbon Dioxide Anion Gap BUN Creatinine POC Glucose Random Glucose Calcium Ionized Calcium Phosphorus Alkaline Phosphatase C-Reactive Protein B-Natriuretic Peptide NT-Pro-B Natriuret Pep Total Protein Albumin Calcium (PTH Intact) Urine Protein Urine Blood Random Vancomycin Complement C3 Complement C4 Microbiology: Microbiology 08/24/20 09:53 Blood - Venous Blood Culture - Final No growth after 5 days. 08/24/20 09:52 Blood - Venous Blood Culture - Final No growth after 5 days. 08/25/20 06:49 Sputum - Suctioned Gram Stain - Final 08/25/20 06:49 Sputum - Suctioned Sputum Culture - Final 08/18/20 16:15 Blood - Venous Blood Culture - Final No growth after 5 days. 08/18/20 16:15 Blood - Venous Blood Culture - Final No growth after 5 days. Assessment and Plan (1) Acute respiratory failure with hypoxemia: Status: Acute (2) ARDS (adult respiratory distress syndrome): Status: Acute (3) Pneumonitis: Status: Acute Doing better on RA at rest. May require oxygen once ambulating or active Continue incentive spirometer Out of bed to chair as tolerated Keep the head of bed elevated at 30? to minimize the risk of recurrent micro aspirations The patient is deconditioned and will benefit from undergoing inpt rehab Avoid volume overload Pulmonary follow up as outpt Procedures Date of Service Date of Service: 09/02/20
[2020-09-02] MEDS: HYDROmorphone HCl 0.5 MG/0.5 ML SYRINGE IVPUSH ×2 (14:16→19:46)
[2020-09-02 16:14] LABS: Glucose, Whole Blood 120 mg/dL (60-115)
[2020-09-02] MEDS: Montelukast Sodium 10 MG TABLET PO (19:47)
[2020-09-02] MEDS: cefTRIAXone sodium 1 GM in 0.9 % Sodium Chloride 50 ML IV (19:47)
[2020-09-02] MEDS: Atorvastatin Calcium 80 MG TABLET PO (19:47)
[2020-09-02 20:19] LABS: Glucose, Whole Blood 103 mg/dL (60-115)
[2020-09-02] MEDS: HYDROmorphone HCl 1 MG/ML SYRINGE IVPUSH (23:46)
[2020-09-03] VITALS (8 sets, daily range): BP systolic 127–175; BP diastolic 56–81; PULSE 79–98; RESP 15–20; TEMP 35.7–36.7; O2SAT 92–93
[2020-09-03 06:08] LABS: MANUAL DIFF FLAG NO
[2020-09-03 06:12] LABS: Venous Blood Gas Refer to POC result
[2020-09-03 06:13] LABS: VBG Base Excess 17.1 mmol/L; VBG HCO3 42 mmol/L (22-26); VBG pCO2 53 mmHg; VBG pO2 43 mmHg
[2020-09-03] MEDS: Levothyroxine Sodium 25 MCG TABLET PO (06:19)
[2020-09-03 06:25] LABS: Basophils Percent Auto 0.3 % (0-2); Eosinophils Absolute Auto 0.6 X10*3/uL (0.0-0.4); Eosinophils Percent Auto 5.3 % (0-4); Hematocrit 28.1 % (37-47); Hemoglobin 8.7 g/dl (12.0-16.0); Imm Gran Pct Auto 0.8 % (0.0-0.4); Lymphocytes Percent Auto 8.5 % (20-40); Mean Corpuscular Hemoglobin 26.9 pg (27.0-33.0); Mean Corpuscular Volume 86.7 fL (80-98); Mean Platelet Volume 10.5 fL (9.4-12.3); Monocytes Absolute Auto 1.5 X10*3/uL (0.1-1.2); Monocytes Percent Auto 12.3 % (2-11); Neutrophils Absolute Auto 8.8 X10*3/uL (2.0-8.3); Neutrophils Percent Auto 72.8 % (45-73); Platelet Count 181 X10*3/uL (160-400); Red Blood Count 3.24 X10*6/uL (4.20-5.50); Red Cell Distribution Width 15.1 % (11.0-16.0); White Blood Count 12.1 X10*3/uL (4.8-10.8)
[2020-09-03 06:32] LABS: INTERNATIONAL NORM RATIO 1.1 (0.9-1.1); Prothrombin Time 13.6 SEC (10.8-13.0)
[2020-09-03 06:34] LABS: Partial Thromboplastin Time 33.8 SEC (24.1-38.0)
[2020-09-03 06:35] LABS: Albumin Level 2.6 g/dL (3.5-5.0)
[2020-09-03] MEDS: HYDROmorphone HCl 1 MG/ML SYRINGE IVPUSH ×4 (06:45→19:50)
[2020-09-03 06:46] LABS: Calcium 5.6 mg/dL (8.4-10.2); Magnesium 1.9 mg/dL (1.6-2.6); Phosphorus 5.2 mg/dL (2.7-4.5)
--- NOTE | 2020-09-03 07:02 | HO.PM.IMPN ---
Subjective Subjective Date of Service: 09/03/20 Interval History: Seen in f/u infected toe/osteomylitis, DAVIN on CKD, post ICU care for acute hypoxic respiratory failure ARDS, and is doing much better. She is planned for amputation today. She had ampuation yesterday and is doing better Review of Systems Gen: no fever Resp: no sob, no cough CV: no chest, no TIWARI, no leg edema GI: No n/v, no abd pain Neuro: No confusion' MSK: Pain in foot Physical Exam Vital Signs: Vital Signs: Last Vital Signs Temp 97.8 F 09/03/20 04:00 Pulse 92 09/03/20 04:00 Resp 16 09/03/20 04:00 BP 136/66 09/03/20 04:00 Pulse Ox 93 09/03/20 04:00 Body Mass Index 32.0 HENMT: Other: General: AO X 3, no acute distress Resp: CTA bilateral CVS: S1,S2,RRR GI: +BS, NT, no distention Skin: No rash, left big toe amputated wound dressing in place Neuro: motor grossly intact Psych: appropriate affect Objective Data Current Medications Generic Name Dose Route Start Last Admin Trade Name Freq PRN Reason Stop Dose Admin Amlodipine Besylate 5 mg 09/02/20 09:00 09/02/20 10:47 Amlodipine Besylate 5 Mg Tablet PO 5 mg DAILY JOEL Administration Protocol Aspirin 81 mg 08/29/20 09:00 09/02/20 10:47 Aspirin Enteric Coated 81 Mg Tablet. PO 81 mg DAILY JOEL Administration Atorvastatin Calcium 80 mg 08/28/20 21:00 09/02/20 19:47 Atorvastatin Calcium 80 Mg Tablet PO 80 mg BEDTIME JOEL Administration Calcium Carbonate 500 mg 09/01/20 13:00 09/02/20 19:47 Calcium Carbonate 500 Mg Tablet PO 500 mg BID JOEL Administration Cilostazol 100 mg 08/28/20 21:00 09/02/20 19:47 Cilostazol 100 Mg Tablet PO 100 mg BID@1200,2100 JOEL Administration Clopidogrel Bisulfate 75 mg 08/29/20 09:00 09/02/20 10:47 Clopidogrel Bisulfate 75 Mg Tablet PO 75 mg DAILY JOEL Administration Fentanyl 25 mcg 09/02/20 09:42 Fentanyl Citrate/Pf 100 Mcg/2 Ml Vial IVPUSH Q5M PRN Pain, Moderate (Pain Scale 4-6 Heparin Sodium (Porcine) 5,000 unit 08/26/20 08:00 09/01/20 17:16 Heparin Sodium,Porcine 5,000 Unit/Ml Vial SUBCUT 5,000 unit Q8H JOEL Administration Hydromorphone HCl 0.5 mg 08/27/20 15:55 09/02/20 19:46 Hydromorphone Hcl 0.5 Mg/0.5 Ml Syringe IVPUSH 0.5 mg Q1H PRN Administration mild pain Hydromorphone HCl 1 mg 08/27/20 15:56 09/03/20 06:45 Hydromorphone Hcl 1 Mg/Ml Syringe IVPUSH 1 mg Q2H PRN Administration moderate pain Ceftriaxone Sodium 1 gm/ 50 mls @ 100 mls/hr 08/26/20 20:00 09/02/20 20:23 Sodium Chloride IV Infused Q24H JOEL Infusion Sodium Chloride 1,000 mls @ 50 mls/hr 09/02/20 09:45 09/03/20 06:48 Ns IVCONT Not Given .Q20H [facility] Insulin Glargine 10 unit 08/29/20 10:30 09/02/20 11:51 Insulin Glargine,Hum.Rec.Anlog 100 Unit/Ml 10 Ml Vial SUBCUT 10 unit DAILY [facility] Administration Insulin Human Lispro 0 unit 08/28/20 16:30 09/02/20 20:16 Insulin Lispro 100 Unit/Ml 3 Ml Vial SUBCUT Not Given QIDACHS [facility] Protocol Levothyroxine Sodium 25 mcg 08/29/20 06:00 09/03/20 06:19 Levothyroxine Sodium 25 Mcg Tablet PO 25 mcg DAILY@0600 JOEL Administration Montelukast Sodium 10 mg 08/19/20 21:00 09/02/20 19:47 Montelukast Sodium 10 Mg Tablet PO 10 mg BEDTIME JOEL Administration Ondansetron HCl 4 mg 09/02/20 09:42 Ondansetron Hcl 4 Mg/2 Ml Vial IVPUSH ONCE PRN Nausea and Vomiting Sevelamer Carbonate 800 mg 08/30/20 12:00 09/02/20 17:14 Sevelamer Carbonate Tablet 800 Mg Tablet PO 800 mg TIDWM JOEL Administration Sodium Chloride 3 ml 08/19/20 00:00 09/02/20 23:46 0.9 % Sodium Chloride Flush 3 Ml Syringe IVFLUSH Not Given QSHIFT JOEL Venlafaxine HCl 37.5 mg 08/29/20 09:00 09/02/20 10:47 Venlafaxine Hcl Er 37.5 Mg Cap.Er.24h PO 37.5 mg DAILY JOEL Administration Vitamin D 25 mcg 08/30/20 09:00 09/02/20 10:47 Cholecalciferol (Vitamin D3) 25 Mcg Tablet PO 25 mcg DAILY JOEL Administration Labs CBC & Chem 7: 09/03/20 06:01 09/02/20 06:01 Labs: Laboratory Results - last 24 hr 09/02/20 09/02/20 09/02/20 06:01 06:02 07:28 WBC RBC Hgb Hct MCV MCH MCHC RDW Plt Count MPV Immature Gran % (Auto) Neut % (Auto) Lymph % (Auto) Clinch % (Auto) Eos % (Auto) Baso % (Auto) Lymph # (Auto) Clinch # (Auto) Eos # (Auto) Baso # (Auto) Abs Immat Gran (auto) Absolute Neuts (auto) Absolute Nucleated RBC Nucleated RBC % (auto) PT INR APTT VBG pH VBG pCO2 VBG pO2 VBG HCO3 VBG O2 Saturation VBG Base Excess Creatinine 5.02 H* Estim Creat Clear Calc 9.9 Estimated GFR 9 POC Glucose 69 Calcium 5.6 L* Phosphorus Magnesium Albumin Blood Type A Negative Antibody Screen NEGATIVE 09/02/20 09/02/20 09/02/20 08:14 10:39 16:11 WBC RBC Hgb Hct MCV MCH MCHC RDW Plt Count MPV Immature Gran % (Auto) Neut % (Auto) Lymph % (Auto) Clinch % (Auto) Eos % (Auto) Baso % (Auto) Lymph # (Auto) Cl[place] # (Auto) Eos # (Auto) Baso # (Auto) Abs Immat Gran (auto) Absolute Neuts (auto) Absolute Nucleated RBC Nucleated RBC % (auto) PT INR APTT VBG pH VBG pCO2 VBG pO2 VBG HCO3 VBG O2 Saturation VBG Base Excess Creatinine Estim Creat Clear Calc Estimated GFR POC Glucose 96 84 120 H Calcium Phosphorus Magnesium Albumin Blood Type Antibody Screen 09/02/20 09/03/20 09/03/20 20:11 06:01 06:01 WBC 12.1 H RBC 3.24 L Hgb 8.7 L Hct 28.1 L MCV 86.7 MCH 26.9 L MCHC 31.0 RDW 15.1 Plt Count 181 MPV 10.5 Immature Gran % (Auto) 0.8 H Neut % (Auto) 72.8 Lymph % (Auto) 8.5 L Clinch % (Auto) 12.3 H Eos % (Auto) 5.3 H Baso % (Auto) 0.3 Lymph # (Auto) 1.0 L Clinch # (Auto) 1.5 H Eos # (Auto) 0.6 H Baso # (Auto) 0.0 Abs Immat Gran (auto) 0.10 H Absolute Neuts (auto) 8.8 H Absolute Nucleated RBC 0.000 Nucleated RBC % (auto) 0.0 PT 13.6 H INR 1.1 APTT 33.8 VBG pH VBG pCO2 VBG pO2 VBG HCO3 VBG O2 Saturation VBG Base Excess Creatinine Estim Creat Clear Calc Estimated GFR POC Glucose 103 Calcium Phosphorus Magnesium Albumin Blood Type Antibody Screen 09/03/20 09/03/20 09/03/20 06:01 06:01 06:05 WBC RBC Hgb Hct MCV MCH MCHC RDW Plt Count MPV Immature Gran % (Auto) Neut % (Auto) Lymph % (Auto) Clinch % (Auto) Eos % (Auto) Baso % (Auto) Lymph # (Auto) [place] # (Auto) Eos # (Auto) Baso # (Auto) Abs Immat Gran (auto) Absolute Neuts (auto) Absolute Nucleated RBC Nucleated RBC % (auto) PT INR APTT VBG pH 7.50 H VBG pCO2 53 VBG pO2 43 VBG HCO3 42 H VBG O2 Saturation 72.0 VBG Base Excess 17.1 Creatinine Estim Creat Clear Calc Estimated GFR POC Glucose Calcium 5.6 L* Phosphorus 5.2 H Magnesium 1.9 Albumin 2.6 L Blood Type Antibody Screen Quality Stroke Does the patient have a stroke diagnosis?: No VTE Prior VTE?: No VTE Risk Level:: Medical - low VTE Device Contraindication: N/A - Device Ordered VTE Drug Contraindication: N/A - Med Ordered Assessment and Plan (1) DAVIN (acute kidney injury): Status: Acute Assessment and Plan: 65 y/o F- anemia, asthma, diabetes, HTN, HLD, hypothyroidism, neuropathy severe peripheral vascular disease bilateral a who presents to the hospital with complaints of left big toe worsening infection-patient was started on IV antibiotics for possible sepsis/left toe osteomyelitis-further hospital course complicated with DAVIN on CKD, question of ARDS, toxic/metabolic encephalopathy. 1. Sepsis/osteomyelitis:been on vancomycin and cefepime subsequently this was changed after a brief interlude with Zosyn-then switched to ceftriaxone as per iD (08/29 note). blood culturesx4 neg (2sets-08/18,08/24) She is having amputation done today continue cefrtiaxone until the 09/29( total 6weeks)as per ID--She may not need antibiotcs after surgery-- will discuss with ID Dressing change by Surgery 2. Acute hypoxemic respiratory failure on 08/25, imaging showed ground glass opacity, unclear etiology: thought to be ARDS or aspiration causing sepsis vs possible pulmonary edema -been on vancomycin and cefepime subsequently this was changed after a brief interlude with Zosyn to the current ceftriaxone, She required mechical ventilation for several days and ICU stay complicated encephalopathy as discussd below. Presently doing well, no hypoxia, and need at all for oxygen. She was also diuressed in ICU while renal function worsening 3.Toxic metabolic encephalopathy: Multifactorial-sepsis/osteomyelitis/AKA on CKD,? lyrica might also have contributed--This has completely resolved and is back to baseline mental status. Should avoid Lyrica 4. Davin on CKD: ? Unclear etiology ? 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 and also had dose of IV calcium. nephrology following, She may need further work up such as Bx Check Creatine HypOcalcemia--calcium gluconate 5. Pvd: Continue asa/pavix/cilostazol 6. Hypothyiodism: continue levothyroxine. 7. Hyperntesion--BP is uncontrolled, increase Norvasc to 10 dvt prophylax: hold heparin , scd in anticipation of surgery
[2020-09-03] MEDS: amLODIPine Besylate 5 MG TABLET PO (07:34)
[2020-09-03] MEDS: Venlafaxine HCl ER 37.5 MG CAP.ER.24H PO (07:34)
[2020-09-03] MEDS: Aspirin Enteric Coated 81 MG TABLET.DR PO (07:34)
[2020-09-03] MEDS: Sevelamer Carbonate Tablet 800 MG TABLET PO ×3 (07:34→17:33)
[2020-09-03] MEDS: Cholecalciferol (Vitamin D3) 25 MCG TABLET PO (07:34)
[2020-09-03] MEDS: Heparin Sodium,Porcine 5,000 UNIT/ML VIAL 5000 UNIT SUBCUT ×3 (07:35→23:52)
[2020-09-03 07:39] LABS: Glucose, Whole Blood 61 mg/dL (60-115)
[2020-09-03 07:52] LABS: Anion Gap 20 (12-20); Blood Urea Nitrogen 84 mg/dL (9-16); Calcium 5.5 mg/dL (8.4-10.2); Carbon Dioxide 34 mmol/L (22-29); Chloride 94 mmol/L (96-108); Creatinine Clr Calc Pharmacy 10.4; Estimated Glomerular Filt Rate 9; Glucose Random 60 mg/dL (60-115); Potassium 3.3 mmol/L (3.3-5.1); Sodium 145 mmol/L (135-145)
[2020-09-03] MEDS: 0.9 % Sodium Chloride Flush 3 ML SYRINGE IVFLUSH (07:58)
[2020-09-03] MEDS: Clopidogrel Bisulfate 75 MG TABLET PO (07:58)
[2020-09-03] MEDS: Calcium Gluconate/NaCl,Iso-Osm 2 GM/100 ML PLAST..BAG IV (08:26)
[2020-09-03 08:35] LABS: Glucose, Whole Blood 76 mg/dL (60-115)
[2020-09-03 11:24] LABS: Glucose, Whole Blood 92 mg/dL (60-115)
[2020-09-03] MEDS: cilostazoL 100 MG TABLET PO ×2 (11:25→19:49)
--- NOTE | 2020-09-03 11:40 | HO.POSTANES ---
Post Anesthesia Evaluation Post Anesthesia Evaluation Vital Signs: Vital Signs Temp Pulse Resp BP Pulse Ox 09/03/20 08:00 96.2 F L 87 18 141/64 H 09/03/20 04:00 97.8 F 92 16 136/66 93 09/03/20 01:10 18 09/03/20 00:00 97.8 F 98 16 146/72 H 92 09/02/20 23:46 20 Anesthesia: Monitored Mental Status: Awake Pain Control: Satisfactory Nausea/Vomiting: None Hydration: Adequate Anesthesia-Related Issues: No Anes. Related Issues
--- NOTE | 2020-09-03 16:20 | P.PNNP_ITS ---
Subjective Subjective Date of Service: 09/03/20 Principal diagnosis: mary kate/ckd Interval history: Seen in f/u infected toe/osteomylitis, MARY KATE on CKD, post ICU care for acute hypoxic respiratory failure ARDS, and is doing much better. s/p surgery Physical Exam Vital Signs: Vital Signs: Last Vital Signs Temp 96.3 F L 09/03/20 16:00 Pulse 80 09/03/20 16:00 Resp 15 09/03/20 16:00 BP 149/77 H 09/03/20 16:00 Pulse Ox 92 09/03/20 16:00 Body Mass Index 32.0 Const: General: cooperative, healthy appearing, comfortable, no acute distress, awake and other (Patient intubated and sedated) Nutritional Appearance: overweight Orientation/consciousness: oriented to person, oriented to place, oriented to time and patient oriented x3 HENMT: Head: Yes normal to inspection, Yes normocephalic and Yes atraumatic Mouth: Normal oral and palatal mucosa present Eyes: General: appearance normal, both eyes and all related structures Neck: Neck: Yes normal visual inspection, Yes trachea midline, Yes supple, Yes no JVD and Yes other (Right IJ line) Carotids: no bruits Chest: Chest palpation & inspection: normal inspection of the chest Resp: Effort & Inspection: normal respiratory effort and able to speak in complete sentences Auscultation: clear to auscultation bilaterally, no crackles, no rales, rhonchi, no wheezes, diminished lung sounds and other (Coarse breath sounds.) Cardio: Palpation: normal PMI and no palpable S3 Rate: regular rate Rhythm: regular rhythm Heart sounds: S1 normal heart sound present, S2 normal heart sound present, Murmur heart sound present systolic at the right sternal border and no rubs Bruits: no carotid bruits Peripheral pulses: dorsalis pedis present (Bilateral DP signals) GI: Inspection: Yes normal to inspection Palpation (GI): Soft to palpation and nontender Auscultation: normal bowel sounds : General: Yes no CVA tenderness Back/Spine/Pelvis: Back: no CVA tenderness Skin: General skin exam: no rashes or lesions noted Wounds: wounds noted (Nonhealing left great toe) Hair: normal Neuro: General: oriented to person, oriented to place, oriented to time, patient oriented x3, moves all extremities and CN's II-XI intact bilaterally Cranial nerves: Yes CN's II-XII intact bilaterally and Yes Normal hearing present Cognition (Neuro): normal cognition Motor exam (neuro): 5/5 motor strength present throughout and No Asterixis during motor activity present Extrem: General: Yes normal to inspection, Yes full ROM, Yes no clubbing, cyan osis or edema, No clubbing, No cyanosis and No edema Psych: Appearance: grossly normal and well kempt Mental Status: mental status grossly normal Speech and movement: Normal speech and movement present Affect: normal affect Objective Data Labs CBC & Chem 7: 09/03/20 06:01 09/03/20 06:01 Labs: Laboratory Results - last 24 hr 09/02/20 09/03/20 09/03/20 20:11 06:01 06:01 WBC 12.1 H RBC 3.24 L Hgb 8.7 L Hct 28.1 L MCV 86.7 MCH 26.9 L MCHC 31.0 RDW 15.1 Plt Count 181 MPV 10.5 Immature Gran % (Auto) 0.8 H Neut % (Auto) 72.8 Lymph % (Auto) 8.5 L Elbert % (Auto) 12.3 H Eos % (Auto) 5.3 H Baso % (Auto) 0.3 Lymph # (Auto) 1.0 L Elbert # (Auto) 1.5 H Eos # (Auto) 0.6 H Baso # (Auto) 0.0 Abs Immat Gran (auto) 0.10 H Absolute Neuts (auto) 8.8 H Absolute Nucleated RBC 0.000 Nucleated RBC % (auto) 0.0 PT 13.6 H INR 1.1 APTT 33.8 VBG pH VBG pCO2 VBG pO2 VBG HCO3 VBG O2 Saturation VBG Base Excess Sodium Potassium Chloride Carbon Dioxide Anion Gap BUN Creatinine Estim Creat Clear Calc Estimated GFR POC Glucose 103 Random Glucose Calcium Phosphorus Magnesium Albumin 09/03/20 09/03/20 09/03/20 06:01 06:01 06:05 WBC RBC Hgb Hct MCV MCH MCHC RDW Plt Count MPV Immature Gran % (Auto) Neut % (Auto) Lymph % (Auto) Elbert % (Auto) Eos % (Auto) Baso % (Auto) Lymph # (Auto) Elbert # (Auto) Eos # (Auto) Baso # (Auto) Abs Immat Gran (auto) Absolute Neuts (auto) Absolute Nucleated RBC Nucleated RBC % (auto) PT INR APTT VBG pH 7.50 H VBG pCO2 53 VBG pO2 43 VBG HCO3 42 H VBG O2 Saturation 72.0 VBG Base Excess 17.1 Sodium 145 Potassium 3.3 Chloride 94 L Carbon Dioxide 34 H Anion Gap 20 BUN 84 H* Creatinine 4.80 H* Estim Creat Clear Calc 10.4 Estimated GFR 9 POC Glucose Random Glucose 60 Calcium 5.6 L* 5.5 L* Phosphorus 5.2 H Magnesium 1.9 Albumin 2.6 L 09/03/20 09/03/20 09/03/20 07:29 08:27 11:17 WBC RBC Hgb Hct MCV MCH MCHC RDW Plt Count MPV Immature Gran % (Auto) Neut % (Auto) Lymph % (Auto) Elbert % (Auto) Eos % (Auto) Baso % (Auto) Lymph # (Auto) Elbert # (Auto) Eos # (Auto) Baso # (Auto) Abs Immat Gran (auto) Absolute Neuts (auto) Absolute Nucleated RBC Nucleated RBC % (auto) PT INR APTT VBG pH VBG pCO2 VBG pO2 VBG HCO3 VBG O2 Saturation VBG Base Excess Sodium Potassium Chloride Carbon Dioxide Anion Gap BUN Creatinine Estim Creat Clear Calc Estimated GFR POC Glucose 61 76 92 Random Glucose Calcium Phosphorus Magnesium Albumin Microbiology Microbiology Results: Microbiology 08/24/20 09:53 Blood - Venous Blood Culture - Final No growth after 5 days. 08/24/20 09:52 Blood - Venous Blood Culture - Final No growth after 5 days. 08/25/20 06:49 Sputum - Suctioned Gram Stain - Final 08/25/20 06:49 Sputum - Suctioned Sputum Culture - Final 08/18/20 16:15 Blood - Venous Blood Culture - Final No growth after 5 days. 08/18/20 16:15 Blood - Venous Blood Culture - Final No growth after 5 days. Assessment & Plan Assessment and plan (1) MARY KATE (acute kidney injury): Status: Acute Assessment and Plan: 1. MARY KATE: cont incr SCR and c/w new ischemic ATN hit; given markedly abnl CXR and ques of pulm hem ANCA - normal. 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 no hypotension CAROL/IRD and ques chol emboli: all definite poss given severity of ASVD No Obs by renal U/s 2. CKD 4: bsl SCr 2.0: most c/w DN/HTN renal dis 3. AMS: suspect med pregabapentin playing signif role : Improved 4. HypoCa: decr CA further d/t decr alb 5. AGMA/NAGMA: resolved with IV NaHCO3 6. Impressive CXR abbnl and yet O2 requirements minimal --no A-a gradient; CHF vs ARDS 7- Gangrene of Toe - Await surgery Currently non oliguric Avoid Nephrotoxisn - off Vanco Cr is better Will increase IVF to 75v ml / hr No overt s/s of uremia no absolute indication for dialysis yet Continue to keep O > I Needs kidney biopsy for definitive diagnosis ; Will consider next week if renal function does not improve Time Spent With Patient Time: Total time spent is greater than 50% in coordination of care (as documented) at patient's floor/unit and/or counseling patient: Procedures Date of Service Date of Service: 09/03/20 Progress Note: Quality Stroke Does the patient have a stroke diagnosis?: No
[2020-09-03 16:42] LABS: Glucose, Whole Blood 92 mg/dL (60-115)
[2020-09-03] MEDS: 0.9 % Sodium Chloride 1,000 ML 75 ML IVCONT (17:37)
[2020-09-03] MEDS: cefTRIAXone sodium 1 GM in 0.9 % Sodium Chloride 50 ML IV (19:39)
[2020-09-03] MEDS: Montelukast Sodium 10 MG TABLET PO (19:49)
[2020-09-03] MEDS: Atorvastatin Calcium 80 MG TABLET PO (19:50)
[2020-09-03 20:40] LABS: Glucose, Whole Blood 111 mg/dL (60-115)
[2020-09-04] VITALS (10 sets, daily range): BP systolic 130–170; BP diastolic 62–84; PULSE 88–96; RESP 15–20; TEMP 36.1–36.7; O2SAT 91–96
[2020-09-04] MEDS: HYDROmorphone HCl 0.5 MG/0.5 ML SYRINGE IVPUSH (05:46)
[2020-09-04] MEDS: Levothyroxine Sodium 25 MCG TABLET PO (05:48)
[2020-09-04 06:47] LABS: MANUAL DIFF FLAG NO
[2020-09-04 06:49] LABS: Venous Blood Gas Refer to POC result
[2020-09-04 06:50] LABS: VBG Base Excess 14.5 mmol/L; VBG HCO3 39 mmol/L (22-26); VBG pCO2 50 mmHg; VBG pH 7.49 (7.32-7.43); VBG pO2 57 mmHg
[2020-09-04 06:51] LABS: Basophils Percent Auto 0.2 % (0-2); Eosinophils Absolute Auto 0.5 X10*3/uL (0.0-0.4); Hematocrit 26.4 % (37-47); Hemoglobin 8.2 g/dl (12.0-16.0); Imm Gran Abs Auto 0.08 X10*3/uL (0.00-0.03); Imm Gran Pct Auto 0.8 % (0.0-0.4); Mean Corpuscular HGB Conc 31.1 g/dl (31.0-35.0); Mean Corpuscular Hemoglobin 27.2 pg (27.0-33.0); Mean Corpuscular Volume 87.4 fL (80-98); Mean Platelet Volume 10.5 fL (9.4-12.3); Monocytes Absolute Auto 1.2 X10*3/uL (0.1-1.2); Monocytes Percent Auto 11.2 % (2-11); Neutrophils Absolute Auto 7.5 X10*3/uL (2.0-8.3); Neutrophils Percent Auto 72.8 % (45-73); Platelet Count 156 X10*3/uL (160-400); Red Blood Count 3.02 X10*6/uL (4.20-5.50); Red Cell Distribution Width 15.2 % (11.0-16.0); White Blood Count 10.3 X10*3/uL (4.8-10.8)
[2020-09-04 07:02] LABS: INTERNATIONAL NORM RATIO 1.1 (0.9-1.1)
[2020-09-04 07:05] LABS: Partial Thromboplastin Time 36.4 SEC (24.1-38.0)
[2020-09-04 07:11] LABS: Albumin Level 2.7 g/dL (3.5-5.0)
[2020-09-04 07:22] LABS: Calcium 5.8 mg/dL (8.4-10.2); Magnesium 1.8 mg/dL (1.6-2.6); Phosphorus 5.3 mg/dL (2.7-4.5)
[2020-09-04] MEDS: 0.9 % Sodium Chloride 1,000 ML 75 ML IVCONT ×2 (07:26→20:32)
[2020-09-04] MEDS: 0.9 % Sodium Chloride Flush 3 ML SYRINGE IVFLUSH (07:28)
[2020-09-04 07:31] LABS: Glucose, Whole Blood 102 mg/dL (60-115)
[2020-09-04] MEDS: Clopidogrel Bisulfate 75 MG TABLET PO (08:30)
[2020-09-04] MEDS: Sevelamer Carbonate Tablet 800 MG TABLET PO ×3 (08:30→17:45)
[2020-09-04] MEDS: Venlafaxine HCl ER 37.5 MG CAP.ER.24H PO (08:30)
[2020-09-04] MEDS: amLODIPine Besylate 5 MG TABLET PO (08:30)
[2020-09-04] MEDS: Cholecalciferol (Vitamin D3) 25 MCG TABLET PO (08:30)
[2020-09-04] MEDS: Aspirin Enteric Coated 81 MG TABLET.DR PO (08:30)
[2020-09-04] MEDS: Heparin Sodium,Porcine 5,000 UNIT/ML VIAL 5000 UNIT SUBCUT ×3 (08:31→23:57)
--- NOTE | 2020-09-04 08:40 | P.PNIM_ITS ---
Subjective Subjective Date of Service: 09/04/20 Interval History: Seen in f/u infected toe/osteomylitis, DAVIN on CKD, post ICU care for acute hypoxic respiratory failure ARDS, and is doing much better. She is planned for amputation today. She had ampuation 09/02 and is doing better Review of Systems Gen: no fever Resp: no sob, no cough CV: no chest, no TIWARI, no leg edema GI: No n/v, no abd pain Neuro: No confusion' MSK: Pain in foot Physical Exam Vital Signs: Vital Signs: Last Vital Signs Temp 97 F 09/04/20 07:17 Pulse 93 09/04/20 07:17 Resp 09/04/20 07:17 BP 130/84 09/04/20 07:17 Pulse Ox 91 L 09/04/20 07:17 Body Mass Index 32.0 HENMT: Other: General: AO X 3, no acute distress Resp: CTA bilateral CVS: S1,S2,RRR GI: +BS, NT, no distention Skin: No rash, left big toe amputated wound dressing in place Neuro: motor grossly intact Psych: appropriate affect Objective Data Current Medications Generic Name Dose Route Start Last Admin Trade Name Freq PRN Reason Stop Dose Admin Amlodipine Besylate 5 mg 09/02/20 09:00 09/04/20 08:30 Amlodipine Besylate 5 Mg Tablet PO 5 mg DAILY JOEL Administration Protocol Aspirin 81 mg 08/29/20 09:00 09/04/20 08:30 Aspirin Enteric Coated 81 Mg Tablet. PO 81 mg DAILY JOEL Administration Atorvastatin Calcium 80 mg 08/28/20 21:00 09/03/20 19:50 Atorvastatin Calcium 80 Mg Tablet PO 80 mg BEDTIME JOEL Administration Calcium Carbonate 500 mg 09/01/20 13:00 09/04/20 08:30 Calcium Carbonate 500 Mg Tablet PO 500 mg BID JOEL Administration Cilostazol 100 mg 08/28/20 21:00 09/03/20 19:49 Cilostazol 100 Mg Tablet PO 100 mg BID@1200,2100 JOEL Administration Clopidogrel Bisulfate 75 mg 08/29/20 09:00 09/04/20 08:30 Clopidogrel Bisulfate 75 Mg Tablet PO 75 mg DAILY JOEL Administration Fentanyl 25 mcg 09/02/20 09:42 Fentanyl Citrate/Pf 100 Mcg/2 Ml Vial IVPUSH Q5M PRN Pain, Moderate (Pain Scale 4-6 Heparin Sodium (Porcine) 5,000 unit 08/26/20 08:00 09/04/20 08:31 Heparin Sodium,Porcine 5,000 Unit/Ml Vial SUBCUT 5,000 unit Q8H JOEL Administration Hydromorphone HCl 0.5 mg 08/27/20 15:55 09/04/20 05:46 Hydromorphone Hcl 0.5 Mg/0.5 Ml Syringe IVPUSH 0.5 mg Q1H PRN Administration mild pain Hydromorphone HCl 1 mg 08/27/20 15:56 09/03/20 19:50 Hydromorphone Hcl 1 Mg/Ml Syringe IVPUSH 1 mg Q2H PRN Administration moderate pain Ceftriaxone Sodium 1 gm/ 50 mls @ 100 mls/hr 08/26/20 20:00 09/03/20 20:25 Sodium Chloride IV Infused Q24H JOEL Infusion Sodium Chloride 1,000 mls @ 75 mls/hr 09/02/20 09:45 09/04/20 07:26 Ns IVCONT 75 mls/hr .[id number] [facility] Administration Insulin Glargine 10 unit 08/29/20 10:30 09/04/20 08:30 Insulin Glargine,Hum.Rec.Anlog 100 Unit/Ml 10 Ml Vial SUBCUT Not Given DAILY [facility] Insulin Human Lispro 0 unit 08/28/20 16:30 09/04/20 07:28 Insulin Lispro 100 Unit/Ml 3 Ml Vial SUBCUT Not Given QIDACHS [facility] Protocol Levothyroxine Sodium 25 mcg 08/29/20 06:00 09/04/20 05:48 Levothyroxine Sodium 25 Mcg Tablet PO 25 mcg DAILY@0600 JOEL Administration Montelukast Sodium 10 mg 08/19/20 21:00 09/03/20 19:49 Montelukast Sodium 10 Mg Tablet PO 10 mg BEDTIME JOEL Administration Ondansetron HCl 4 mg 09/02/20 09:42 Ondansetron Hcl 4 Mg/2 Ml Vial IVPUSH ONCE PRN Nausea and Vomiting Sevelamer Carbonate 800 mg 08/30/20 12:00 09/04/20 08:30 Sevelamer Carbonate Tablet 800 Mg Tablet PO 800 mg TIDWM JOEL Administration Sodium Chloride 3 ml 08/19/20 00:00 09/04/20 07:28 0.9 % Sodium Chloride Flush 3 Ml Syringe IVFLUSH 3 ml QSHIFT JOEL Administration Venlafaxine HCl 37.5 mg 08/29/20 09:00 09/04/20 08:30 Venlafaxine Hcl Er 37.5 Mg Cap.Er.24h PO 37.5 mg DAILY JOEL Administration Vitamin D 25 mcg 08/30/20 09:00 09/04/20 08:30 Cholecalciferol (Vitamin D3) 25 Mcg Tablet PO 25 mcg DAILY JOEL Administration Labs CBC & Chem 7: 09/04/20 06:40 09/03/20 06:01 Labs: Laboratory Results - last 24 hr 09/03/20 09/03/20 09/03/20 11:17 16:38 20:27 WBC RBC Hgb Hct MCV MCH MCHC RDW Plt Count MPV Immature Gran % (Auto) Neut % (Auto) Lymph % (Auto) [place] % (Auto) Eos % (Auto) Baso % (Auto) Lymph # (Auto) [place] # (Auto) Eos # (Auto) Baso # (Auto) Abs Immat Gran (auto) Absolute Neuts (auto) Absolute Nucleated RBC Nucleated RBC % (auto) PT INR APTT VBG pH VBG pCO2 VBG pO2 VBG HCO3 VBG O2 Saturation VBG Base Excess POC Glucose 92 92 111 Calcium Phosphorus Magnesium Albumin 09/04/20 09/04/20 09/04/20 06:40 06:40 06:40 WBC 10.3 RBC 3.02 L Hgb 8.2 L Hct 26.4 L MCV 87.4 MCH 27.2 MCHC 31.1 RDW 15.2 Plt Count 156 L MPV 10.5 Immature Gran % (Auto) 0.8 H Neut % (Auto) 72.8 Lymph % (Auto) 10.0 L [place] % (Auto) 11.2 H Eos % (Auto) 5.0 H Baso % (Auto) 0.2 Lymph # (Auto) 1.0 L [place] # (Auto) 1.2 Eos # (Auto) 0.5 H Baso # (Auto) 0.0 Abs Immat Gran (auto) 0.08 H Absolute Neuts (auto) 7.5 Absolute Nucleated RBC 0.000 Nucleated RBC % (auto) 0.0 PT 13.0 INR 1.1 APTT 36.4 VBG pH VBG pCO2 VBG pO2 VBG HCO3 VBG O2 Saturation VBG Base Excess POC Glucose Calcium 5.8 L* Phosphorus 5.3 H Magnesium 1.8 Albumin 09/04/20 09/04/20 09/04/20 06:40 06:43 07:26 WBC RBC Hgb Hct MCV MCH MCHC RDW Plt Count MPV Immature Gran % (Auto) Neut % (Auto) Lymph % (Auto) [place] % (Auto) Eos % (Auto) Baso % (Auto) Lymph # (Auto) [place] # (Auto) Eos # (Auto) Baso # (Auto) Abs Immat Gran (auto) Absolute Neuts (auto) Absolute Nucleated RBC Nucleated RBC % (auto) PT INR APTT VBG pH 7.49 H VBG pCO2 50 VBG pO2 57 VBG HCO3 39 H VBG O2 Saturation 87.0 VBG Base Excess 14.5 POC Glucose 102 Calcium Phosphorus Magnesium Albumin 2.7 L Quality Stroke Does the patient have a stroke diagnosis?: No VTE Prior VTE?: No VTE Risk Level:: Medical - low VTE Device Contraindication: N/A - Device Ordered VTE Drug Contraindication: N/A - Med Ordered Assessment and Plan (1) DAVIN (acute kidney injury): Status: Acute Assessment and Plan: 65 y/o F- anemia, asthma, diabetes, HTN, HLD, hypothyroidism, neuropathy severe peripheral vascular disease bilateral a who presents to the hospital with complaints of left big toe worsening infection-patient was started on IV antibiotics for possible sepsis/left toe osteomyelitis-further hospital course complicated with DAVIN on CKD, question of ARDS, toxic/metabolic encephalopathy. 1. Sepsis/osteomyelitis:been on vancomycin and cefepime subsequently this was changed after a brief interlude with Zosyn-then switched to ceftriaxone as per iD (08/29 note). blood culturesx4 neg (2sets-08/18,08/24). She had amputation done on 09/02. Dressing chagges per surger continue cefrtiaxone until the 09/29( total 6weeks)as per ID 2. Acute hypoxemic respiratory failure on 08/25, imaging showed ground glass opacity, unclear etiology: thought to be ARDS or aspiration causing sepsis vs possible pulmonary edema -been on vancomycin and cefepime subsequently this was changed after a brief interlude with Zosyn to the current ceftriaxone, She required mechical ventilation for several days and ICU stay complicated en cephalopathy as discussd below. Presently doing well, no hypoxia, and need at all for oxygen. 3.Toxic metabolic encephalopathy: Multifactorial-sepsis/osteomyelitis/AKA on CKD,? lyrica might also have contributed--This has completely resolved and is back to baseline mental status. Should avoid Lyrica 4. Davin on CKD: ? Unclear etiology ? 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 Creatinine is trending in the right direction, check lab today Hypocalcemia-we will add p.o. and also had dose of IV calcium. nephrology following, She may need further work up such as Bx Check Creatine HypOcalcemia--calcium gluconate and oral calcium and repeat level tomorroe 5. Pvd: Continue asa/pavix/cilostazol 6. Hypothyiodism: continue levothyroxine. 7. Hyperntesion--BP is uncontrolled, increase Norvasc to 10 8. Anemia--chronic H/H is stable, monitor dvt prophylax: Heparin
[2020-09-04 09:13] LABS: Anion Gap 20 (12-20); Blood Urea Nitrogen 73 mg/dL (9-16); Carbon Dioxide 32 mmol/L (22-29); Chloride 95 mmol/L (96-108); Creatinine Clr Calc Pharmacy 11.2; Estimated Glomerular Filt Rate 10; Glucose Random 105 mg/dL (60-115); Potassium 3.5 mmol/L (3.3-5.1); Sodium 143 mmol/L (135-145)
[2020-09-04 10:57] LABS: Glucose, Whole Blood 133 mg/dL (60-115)
[2020-09-04] MEDS: cilostazoL 100 MG TABLET PO ×2 (11:24→20:24)
--- NOTE | 2020-09-04 14:43 | PM.PNNEP ---
Subjective Subjective Date of Service: 09/04/20 Principal diagnosis: mary kate/ckd Interval history: Seen in f/u re MARY KATE on CKD, Feels better Non oliguric - 1.6 L urine output She had ampuation 09/02 and is doing better Physical Exam Vital Signs: Vital Signs: Last Vital Signs Temp 97.3 F 09/04/20 11:25 Pulse 88 09/04/20 11:25 Resp 20 09/04/20 11:25 BP 161/70 H 09/04/20 11:25 Pulse Ox 94 09/04/20 11:25 Body Mass Index 32.0 Const: General: cooperative, healthy appearing, comfortable, no acute distress, awake and other (Patient intubated and sedated) Nutritional Appearance: overweight Orientation/consciousness: oriented to person, oriented to place, oriented to time and patient oriented x3 HENMT: Head: Yes normal to inspection, Yes normocephalic and Yes atraumatic Mouth: Normal oral and palatal mucosa present Eyes: General: appearance normal, both eyes and all related structures Neck: Neck: Yes normal visual inspection, Yes trachea midline, Yes supple, Yes no JVD and Yes other (Right IJ line) Carotids: no bruits Chest: Chest palpation & inspection: normal inspection of the chest Resp: Effort & Inspection: normal respiratory effort and able to speak in complete sentences Auscultation: clear to auscultation bilaterally, no crackles, no rales, rhonchi, no wheezes, diminished lung sounds and other (Coarse breath sounds.) Cardio: Palpation: normal PMI and no palpable S3 Rate: regular rate Rhythm: regular rhythm Heart sounds: S1 normal heart sound present, S2 normal heart sound present, Murmur heart sound present systolic at the right sternal border and no rubs Bruits: no carotid bruits Peripheral pulses: dorsalis pedis present (Bilateral DP signals) GI: Inspection: Yes normal to inspection Palpation (GI): Soft to palpation and nontender Auscultation: normal bowel sounds : General: Yes no CVA tenderness Back/Spine/Pelvis: Back: no CVA tenderness Skin: General skin exam: no rashes or lesions noted Wounds: wounds noted (Nonhealing left great toe) Hair: normal Neuro: General: oriented to person, oriented to place, oriented to time, patient oriented x3, moves all extremities and CN's II-XI intact bilaterally Cranial nerves: Yes CN's II-XII intact bilaterally and Yes Normal hearing present Cognition (Neuro): normal cognition Motor exam (neuro): 5/5 motor strength present throughout and No Asterixis during motor activity present Extrem: General: Yes normal to inspection, Yes full ROM, Yes no clubbing, cyanosis or edema, No clubbing, No cyanosis and No edema Psych: Appearance: grossly normal and well kempt Mental Status: mental status grossly normal Speech and movement: Normal speech and movement present Affect: normal affect Objective Data Labs CBC & Chem 7: 09/04/20 06:40 09/04/20 06:40 Labs: Laboratory Results - last 24 hr 09/03/20 09/03/20 09/04/20 16:38 20:27 06:40 WBC 10.3 RBC 3.02 L Hgb 8.2 L Hct 26.4 L MCV 87.4 MCH 27.2 MCHC 31.1 RDW 15.2 Plt Count 156 L MPV 10.5 Immature Gran % (Auto) 0.8 H Neut % (Auto) 72.8 Lymph % (Auto) 10.0 L [place] % (Auto) 11.2 H Eos % (Auto) 5.0 H Baso % (Auto) 0.2 Lymph # (Auto) 1.0 L [place] # (Auto) 1.2 Eos # (Auto) 0.5 H Baso # (Auto) 0.0 Abs Immat Gran (auto) 0.08 H Absolute Neuts (auto) 7.5 Absolute Nucleated RBC 0.000 Nucleated RBC % (auto) 0.0 PT INR APTT VBG pH VBG pCO2 VBG pO2 VBG HCO3 VBG O2 Saturation VBG Base Excess Sodium Potassium Chloride Carbon Dioxide Anion Gap BUN Creatinine Estim Creat Clear Calc Estimated GFR POC Glucose 92 111 Random Glucose Calcium Phosphorus Magnesium Albumin 09/04/20 09/04/20 09/04/20 06:40 06:40 06:40 WBC RBC Hgb Hct MCV MCH MCHC RDW Plt Count MPV Immature Gran % (Auto) Neut % (Auto) Lymph % (Auto) [place] % (Auto) Eos % (Auto) Baso % (Auto) Lymph # (Auto) [place] # (Auto) Eos # (Auto) Baso # (Auto) Abs Immat Gran (auto) Absolute Neuts (auto) Absolute Nucleated RBC Nucleated RBC % (auto) PT 13.0 INR 1.1 APTT 36.4 VBG pH VBG pCO2 VBG pO2 VBG HCO3 VBG O2 Saturation VBG Base Excess Sodium 143 Potassium 3.5 Chloride 95 L Carbon Dioxide 32 H Anion Gap 20 BUN 73 H Creatinine 4.42 H* Estim Creat Clear Calc 11.2 Estimated GFR 10 POC Glucose Random Glucose 105 D Calcium 5.8 L* Phosphorus 5.3 H Magnesium 1.8 Albumin 2.7 L 09/04/20 09/04/20 09/04/20 06:43 07:26 10:53 WBC RBC Hgb Hct MCV MCH MCHC RDW Plt Count MPV Immature Gran % (Auto) Neut % (Auto) Lymph % (Auto) [place] % (Auto) Eos % (Auto) Baso % (Auto) Lymph # (Auto) [place] # (Auto) Eos # (Auto) Baso # (Auto) Abs Immat Gran (auto) Absolute Neuts (auto) Absolute Nucleated RBC Nucleated RBC % (auto) PT INR APTT VBG pH 7.49 H VBG pCO2 50 VBG pO2 57 VBG HCO3 39 H VBG O2 Saturation 87.0 VBG Base Excess 14.5 Sodium Potassium Chloride Carbon Dioxide Anion Gap BUN Creatinine Estim Creat Clear Calc Estimated GFR POC Glucose 102 133 H Random Glucose Calcium Phosphorus Magnesium Albumin Microbiology Microbiology Results: Microbiology 08/24/20 09:53 Blood - Venous Blood Culture - Final No growth after 5 days. 08/24/20 09:52 Blood - Venous Blood Culture - Final No growth after 5 days. 08/25/20 06:49 Sputum - Suctioned Gram Stain - Final 08/25/20 06:49 Sputum - Suctioned Sputum Culture - Final 08/18/20 16:15 Blood - Venous Blood Culture - Final No growth after 5 days. 08/18/20 16:15 Blood - Venous Blood Culture - Final No growth after 5 days. Assessment & Plan Assessment and plan (1) MARY KATE (acute kidney injury): Status: Acute Assessment and Plan: 1. MARY KATE: cont incr SCR and c/w new ischemic ATN hit; given markedly abnl CXR and ques of pulm hem ANCA - normal. 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 no hypotension CAROL/IRD and ques chol emboli: all definite poss given severity of ASVD No Obs by renal U/s 2. CKD 4: bsl SCr 2.0: most c/w DN/HTN renal dis 3. AMS: suspect med pregabapentin playing signif role : Improved 4. HypoCa: decr CA further d/t decr alb 5. AGMA/NAGMA: resolved with IV NaHCO3 6. Impressive CXR abbnl and yet O2 requirements minimal --no A-a gradient; CHF vs ARDS 7- Gangrene of Toe - had toe amputation surgery Currently non oliguric Avoid Nephrotoxisn - off Vanco Cr is better Continue IVF to 75v ml / hr No overt s/s of uremia no absolute indication for dialysis yet Continue to keep O > I On Amlodipine - will not increase the dose- Suggest Clonidine patch # 1 if BP continues to be high Needs kidney biopsy for definitive diagnosis ; Will consider next week if renal function does not improve- Cr is better - will follow Time Spent With Patient Time: Total time spent is greater than 50% in coordination of care (as documented) at patient's floor/unit and/or counseling patient: Procedures Date of Service Date of Service: 09/04/20 Progress Note: Quality Stroke Does the patient have a stroke diagnosis?: No
[2020-09-04] MEDS: HYDROmorphone HCl 1 MG/ML SYRINGE IVPUSH (15:58)
[2020-09-04 16:32] LABS: Glucose, Whole Blood 129 mg/dL (60-115)
[2020-09-04] MEDS: cefTRIAXone sodium 1 GM in 0.9 % Sodium Chloride 50 ML IV (20:21)
[2020-09-04] MEDS: Montelukast Sodium 10 MG TABLET PO (20:24)
[2020-09-04] MEDS: Atorvastatin Calcium 80 MG TABLET PO (20:24)
[2020-09-04 20:39] LABS: Glucose, Whole Blood 144 mg/dL (60-115)
[2020-09-05] VITALS (10 sets, daily range): BP systolic 129–169; BP diastolic 67–84; PULSE 81–101; RESP 15–18; TEMP 36–36.9; O2SAT 90–98; BMI 32.0
[2020-09-05] MEDS: Levothyroxine Sodium 25 MCG TABLET PO (06:05)
[2020-09-05 07:11] LABS: MANUAL DIFF FLAG NO
[2020-09-05 07:20] LABS: Basophils Percent Auto 0.3 % (0-2); Eosinophils Absolute Auto 0.5 X10*3/uL (0.0-0.4); Eosinophils Percent Auto 5.4 % (0-4); Hematocrit 27.9 % (37-47); Hemoglobin 8.7 g/dl (12.0-16.0); Lymphocytes Percent Auto 9.5 % (20-40); Mean Corpuscular HGB Conc 31.2 g/dl (31.0-35.0); Mean Corpuscular Volume 86.6 fL (80-98); Mean Platelet Volume 10.6 fL (9.4-12.3); Monocytes Percent Auto 10.3 % (2-11); Neutrophils Absolute Auto 7.4 X10*3/uL (2.0-8.3); Neutrophils Percent Auto 73.5 % (45-73); Platelet Count 194 X10*3/uL (160-400); Red Blood Count 3.22 X10*6/uL (4.20-5.50); Red Cell Distribution Width 15.1 % (11.0-16.0); White Blood Count 10.1 X10*3/uL (4.8-10.8)
[2020-09-05 07:21] LABS: INTERNATIONAL NORM RATIO 1.1 (0.9-1.1); Prothrombin Time 12.7 SEC (10.8-13.0)
[2020-09-05 07:24] LABS: Venous Blood Gas Refer to POC result
[2020-09-05 07:24] LABS: VBG Base Excess 2.4 mmol/L; VBG HCO3 25 mmol/L (22-26); VBG pCO2 34 mmHg; VBG pH 7.47 (7.32-7.43); VBG pO2 54 mmHg
[2020-09-05 07:24] LABS: Partial Thromboplastin Time 35.7 SEC (24.1-38.0)
[2020-09-05 07:26] LABS: Albumin Level 2.8 g/dL (3.5-5.0)
[2020-09-05 07:42] LABS: Glucose, Whole Blood 122 mg/dL (60-115)
[2020-09-05 07:45] LABS: Calcium 5.9 mg/dL (8.4-10.2); Magnesium 1.8 mg/dL (1.6-2.6); Phosphorus 4.6 mg/dL (2.7-4.5)
[2020-09-05 08:35] LABS: Anion Gap 21 (12-20); Blood Urea Nitrogen 59 mg/dL (9-16); Carbon Dioxide 28 mmol/L (22-29); Chloride 97 mmol/L (96-108); Creatinine Clr Calc Pharmacy 12.8; Estimated Glomerular Filt Rate 12; Glucose Random 118 mg/dL (60-115); Potassium 3.4 mmol/L (3.3-5.1); Sodium 143 mmol/L (135-145)
[2020-09-05] MEDS: Sevelamer Carbonate Tablet 800 MG TABLET PO ×3 (08:56→16:21)
[2020-09-05] MEDS: Heparin Sodium,Porcine 5,000 UNIT/ML VIAL 5000 UNIT SUBCUT ×3 (08:56→23:55)
[2020-09-05] MEDS: ondansetron HCL 4 MG/2 ML VIAL IVPUSH (08:56)
[2020-09-05] MEDS: Venlafaxine HCl ER 37.5 MG CAP.ER.24H PO (08:56)
[2020-09-05] MEDS: Cholecalciferol (Vitamin D3) 25 MCG TABLET PO (08:56)
[2020-09-05] MEDS: Aspirin Enteric Coated 81 MG TABLET.DR PO (08:56)
[2020-09-05] MEDS: Insulin Glargine,Hum.rec.anlog 100 UNIT/ML 10 ML VIAL 10 UNIT SUBCUT (08:56)
[2020-09-05] MEDS: amLODIPine Besylate 5 MG TABLET PO (08:57)
[2020-09-05] MEDS: Clopidogrel Bisulfate 75 MG TABLET PO (08:58)
[2020-09-05] MEDS: 0.9 % Sodium Chloride 1,000 ML 75 ML IVCONT (09:06)
[2020-09-05 09:33] LABS: Phosphorus 4.6 mg/dL (2.7-4.5)
--- NOTE | 2020-09-05 11:29 | P.PNIM_ITS ---
Subjective Subjective Date of Service: 09/06/20 Interval History: Follow up osteomyelitis sitting up in the chair feel dizzy today Physical Exam Vital Signs: Vital Signs: Last Vital Signs Temp 96.8 F 09/05/20 11:00 Pulse 95 09/05/20 11:00 Resp 18 09/05/20 11:00 BP 129/78 09/05/20 11:00 Pulse Ox 90 L 09/05/20 11:00 Body Mass Index 32.0 Appearing in no acute distress lung sounds are clear to auscultation heart regular rate rhythm, clear S1, S2 positive bowel sounds, abdomen is soft, nontender neuro patient is alert x3, no focal deficits Left foot surgical dressing, not yet changed by surgeon therefore surgical incision not visualized Objective Data Current Medications Generic Name Dose Route Start Last Admin Trade Name Freq PRN Reason Stop Dose Admin Amlodipine Besylate 5 mg 09/02/20 09:00 09/05/20 08:57 Amlodipine Besylate 5 Mg Tablet PO 5 mg DAILY JOEL Administration Protocol Aspirin 81 mg 08/29/20 09:00 09/05/20 08:56 Aspirin Enteric Coated 81 Mg Tablet.Dr PO 81 mg DAILY JOEL Administration Atorvastatin Calcium 80 mg 08/28/20 21:00 09/04/20 20:24 Atorvastatin Calcium 80 Mg Tablet PO 80 mg BEDTIME JOEL Administration Calcium Carbonate 500 mg 09/05/20 09:00 09/05/20 08:57 Calcium Carbonate 500 Mg Tablet PO 500 mg TIDWM JOEL Administration Calcium Carbonate 750 mg 09/05/20 08:37 Calcium Carbonate 750 Mg Tab.Chew PO Q4H PRN hypocalcemia Cilostazol 100 mg 08/28/20 21:00 09/04/20 20:24 Cilostazol 100 Mg Tablet PO 100 mg BID@1200,2100 JOEL Administration Clopidogrel Bisulfate 75 mg 08/29/20 09:00 09/05/20 08:58 Clopidogrel Bisulfate 75 Mg Tablet PO 75 mg DAILY JOEL Administration Heparin Sodium (Porcine) 5,000 unit 08/26/20 08:00 09/05/20 08:56 Heparin Sodium,Porcine 5,000 Unit/Ml Vial SUBCUT 5,000 unit Q8H JOEL Administration Hydromorphone HCl 0.5 mg 08/27/20 15:55 09/04/20 05:46 Hydromorphone Hcl 0.5 Mg/0.5 Ml Syringe IVPUSH 0.5 mg Q1H PRN Administration mild pain Hydromorphone HCl 1 mg 08/27/20 15:56 09/04/20 15:58 Hydromorphone Hcl 1 Mg/Ml Syringe IVPUSH 1 mg Q2H PRN Administration moderate pain Insulin Glargine 10 unit 08/29/20 10:30 09/05/20 08:56 Insulin Glargine,Hum.Rec.Anlog 100 Unit/Ml 10 Ml Vial SUBCUT 10 unit DAILY JOEL Administration Insulin Human Lispro 0 unit 08/28/20 16:30 09/05/20 07:51 Insulin Lispro 100 Unit/Ml 3 Ml Vial SUBCUT Not Given QIDACHS [facility] Protocol Levothyroxine Sodium 25 mcg 08/29/20 06:00 09/05/20 06:05 Levothyroxine Sodium 25 Mcg Tablet PO 25 mcg DAILY@0600 [facility] Administration Montelukast Sodium 10 mg 08/19/20 21:00 09/04/20 20:24 Montelukast Sodium 10 Mg Tablet PO 10 mg BEDTIME JOEL Administration Ondansetron HCl 4 mg 09/02/20 09:42 09/05/20 08:56 Ondansetron Hcl 4 Mg/2 Ml Vial IVPUSH 4 mg ONCE PRN Administration Nausea and Vomiting Oxycodone HCl 5 mg 09/05/20 10:51 Oxycodone Hcl Immed Release 5 Mg Tablet PO Q4H PRN Pain, Mild (Pain Scale 1-3) Sevelamer Carbonate 800 mg 08/30/20 12:00 09/05/20 08:56 Sevelamer Carbonate Tablet 800 Mg Tablet PO 800 mg TIDWM [facility] Administration Sodium Chloride 3 ml 08/19/20 00:00 09/05/20 07:51 0.9 % Sodium Chloride Flush 3 Ml Syringe IVFLUSH Not Given QSHIFT [facility] Venlafaxine HCl 37.5 mg 08/29/20 09:00 09/05/20 08:56 Venlafaxine Hcl Er 37.5 Mg Cap.Er.24h PO 37.5 mg DAILY JOEL Administration Vitamin D 25 mcg 08/30/20 09:00 09/05/20 08:56 Cholecalciferol (Vitamin D3) 25 Mcg Tablet PO 25 mcg DAILY JOEL Administration Labs CBC & Chem 7: 09/05/20 06:55 09/05/20 06:55 Labs: Laboratory Results - last 24 hr 08/30/20 09/04/20 09/04/20 08:14 06:40 16:22 WBC RBC Hgb Hct MCV MCH MCHC RDW Plt Count MPV Immature Gran % (Auto) Neut % (Auto) Lymph % (Auto) [place] % (Auto) Eos % (Auto) Baso % (Auto) Lymph # (Auto) [place] # (Auto) Eos # (Auto) Baso # (Auto) Abs Immat Gran (auto) Absolute Neuts (auto) Absolute Nucleated RBC Nucleated RBC % (auto) PT INR APTT VBG pH VBG pCO2 VBG pO2 VBG HCO3 VBG O2 Saturation VBG Base Excess Sodium Potassium Chloride Carbon Dioxide Anion Gap BUN Creatinine 4.42 H* Estim Creat Clear Calc Estimated GFR POC Glucose 129 H Random Glucose Calcium Ionized Calcium 2.9 (L) Phosphorus Magnesium Albumin 09/04/20 09/05/20 09/05/20 20:30 06:55 06:55 WBC 10.1 RBC 3.22 L Hgb 8.7 L Hct 27.9 L MCV 86.6 MCH 27.0 MCHC 31.2 RDW 15.1 Plt Count 194 MPV 10.6 Immature Gran % (Auto) 1.0 H Neut % (Auto) 73.5 H Lymph % (Auto) 9.5 L [place] % (Auto) 10.3 Eos % (Auto) 5.4 H Baso % (Auto) 0.3 Lymph # (Auto) 1.0 L [place] # (Auto) 1.0 Eos # (Auto) 0.5 H Baso # (Auto) 0.0 Abs Immat Gran (auto) 0.10 H Absolute Neuts (auto) 7.4 Absolute Nucleated RBC 0.000 Nucleated RBC % (auto) 0.0 PT 12.7 INR 1.1 APTT 35.7 VBG pH VBG pCO2 VBG pO2 VBG HCO3 VBG O2 Saturation VBG Base Excess Sodium Potassium Chloride Carbon Dioxide Anion Gap BUN Creatinine Estim Creat Clear Calc Estimated GFR POC Glucose 144 H Random Glucose Calcium Ionized Calcium Phosphorus Magnesium Albumin 09/05/20 09/05/20 09/05/20 06:55 06:55 07:12 WBC RBC Hgb Hct MCV MCH MCHC RDW Plt Count MPV Immature Gran % (Auto) Neut % (Auto) Lymph % (Auto) [place] % (Auto) Eos % (Auto) Baso % (Auto) Lymph # (Auto) [place] # (Auto) Eos # (Auto) Baso # (Auto) Abs Immat Gran (auto) Absolute Neuts (auto) Absolute Nucleated RBC Nucleated RBC % (auto) PT INR APTT VBG pH 7.47 H VBG pCO2 34 VBG pO2 54 VBG HCO3 25 VBG O2 Saturation 81.0 VBG Base Excess 2.4 Sodium 143 Potassium 3.4 Chloride 97 Carbon Dioxide 28 Anion Gap 21 H BUN 59 H Creatinine 3.90 H Estim Creat Clear Calc 12.8 Estimated GFR 12 POC Glucose Random Glucose 118 H Calcium 5.9 L* Ionized Calcium Phosphorus 4.6 H 4.6 H Magnesium 1.8 Albumin 2.8 L 09/05/20 07:27 WBC RBC Hgb Hct MCV MCH MCHC RDW Plt Count MPV Immature Gran % (Auto) Neut % (Auto) Lymph % (Auto) [place] % (Auto) Eos % (Auto) Baso % (Auto) Lymph # (Auto) [place] # (Auto) Eos # (Auto) Baso # (Auto) Abs Immat Gran (auto) Absolute Neuts (auto) Absolute Nucleated RBC Nucleated RBC % (auto) PT INR APTT VBG pH VBG pCO2 VBG pO2 VBG HCO3 VBG O2 Saturation VBG Base Excess Sodium Potassium Chloride Carbon Dioxide Anion Gap BUN Creatinine Estim Creat Clear Calc Estimated GFR POC Glucose 122 H Random Glucose Calcium Ionized Calcium Phosphorus Magnesium Albumin Quality Stroke Does the patient have a stroke diagnosis?: No VTE Prior VTE?: No VTE Risk Level:: Medical - low VTE Device Contraindication: N/A - Device Ordered VTE Drug Contraindication: N/A - Med Ordered Assessment and Plan (1) Pneumonitis: Status: Acute Assessment and Plan: 65 y/o F- anemia, asthma, diabetes, HTN, HLD, hypothyroidism, neuropathy severe peripheral vascular disease bilateral a who presents to the hospital with complaints of left big toe worsening infection-patient was started on IV antibiotics for possible sepsis/left toe osteomyelitis-further hospital course complicated with DAVIN on CKD, question of ARDS, toxic/metabolic encephalopathy. Hypocalcemia-we will add p.o. and also had dose of IV calcium. nephrology following -Check PTH, Phos, normal mag Stage II pressure ulcer. POA -xerofoam and foam dressing osteomyelitis. Had been on vancomycin and cefepime subsequently this was changed after a brief interlude with Zosyn, then switched to ceftriaxone as per iD (08/29 note). blood culturesx4 neg (2sets-08/18,08/24). She had amputation done on 09/02. Dressing changes per surgery No antibiotics after amp Acute hypoxemic respiratory failure on 08/25, imaging showed ground glass opacity, unclear etiology: thought to be ARDS or aspiration causing sepsis vs possible pulmonary edema -been on vancomycin and cefepime subsequently this was changed after a brief interlude with Zosyn to the current ceftriaxone, She required mechanical ventilation for several days and ICU stay complicated encephalopathy as discussd below. Presently doing well, no hypoxia Toxic metabolic encephalopathy. Multifactorial-sepsis/osteomyelitis/AKA on CKD,? lyrica might also have contributed. This has completely resolved and is back to baseline mental status. Should avoid Lyrica Davin on CKD: ? Unclear etiology ? 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 Pvd -Continue asa/pavix/cilostazol Hypothyiodism -continue levothyroxine. Hypertension. BP is uncontrolled -increase Norvasc to 10 Anemia. chronic H/H is stable -monitor DISPO: PT eval, likely STR dvt prophylax: Heparin Attending: Dr. Bird Full code
[2020-09-05 11:35] LABS: Glucose, Whole Blood 144 mg/dL (60-115)
--- NOTE | 2020-09-05 12:00 | HO.VASCPN ---
Subjective Subjective Date of Service: 09/05/20 Patient reports: no new complaints and feels better Interval history: Patient seen and examined. No significant events over the past weekend. She is status post left great toe amputation. Notes no significant pain. Now for dressing change. Physical Exam Vital Signs: Vital Signs: Last Vital Signs Temp 96.8 F 09/05/20 11:00 Pulse 95 09/05/20 11:00 Resp 18 09/05/20 11:00 BP 129/78 09/05/20 11:00 Pulse Ox 90 L 09/05/20 11:00 Body Mass Index 32.0 Const: General: cooperative, healthy appearing and no acute distress Orientation/consciousness: oriented to person, oriented to place and oriented to time HENMT: Head: Yes normal to inspection Neck: Carotids: no bruits Chest: Chest palpation & inspection: normal inspection of the chest Resp: Effort & Inspection: normal respiratory effort and able to speak in complete sentences Auscultation: clear to auscultation bilaterally Cardio: Rate: regular rate Heart sounds: S1 normal heart sound present and S2 normal heart sound present GI: Inspection: Yes normal to inspection Skin: General skin exam: no rashes or lesions noted Wounds: amputation site (Dressing change; amputation site appears to be healing well.) Neuro: General: oriented to person, oriented to place, oriented to time and CN's II-XI intact bilaterally Extrem: General: Yes normal to inspection, Yes full ROM and Yes no clubbing, cyanosis or edema Psych: Appearance: grossly normal and well kempt Speech and movement: Normal speech and movement present Affect: normal affect Progress Note: A&P Assessment and plan (1) PAD (peripheral artery disease): Status: Acute Assessment and Plan: Patient is status post left great toe amputation. She appears to be doing extremely well from a amputation standpoint. Incision appears to be healing well. She is stable from my perspective for discharge. Upon discharge she will require dressing care which will be on the discharge note. She will need to follow up with us in approximately 2 weeks for suture and staple removal. Thank you for allowing us to assist in her care. Of note she will need to be maintained on aspirin and Plavix on discharge. Fall Risk Details Current Medications: Current Medications Generic Name Dose Route Start Last Admin Trade Name Freq PRN Reason Stop Dose Admin Amlodipine Besylate 5 mg 09/02/20 09:00 09/05/20 08:57 Amlodipine Besylate 5 Mg Tablet PO 5 mg DAILY JOEL Administration Protocol Aspirin 81 mg 08/29/20 09:00 09/05/20 08:56 Aspirin Enteric Coated 81 Mg Tablet.Dr PO 81 mg DAILY JOEL Administration Atorvastatin Calcium 80 mg 08/28/20 21:00 09/04/20 20:24 Atorvastatin Calcium 80 Mg Tablet PO 80 mg BEDTIME JOEL Administration Calcium Carbonate 500 mg 09/05/20 09:00 09/05/20 08:57 Calcium Carbonate 500 Mg Tablet PO 500 mg TIDWM JOEL Administration Calcium Carbonate 750 mg 09/05/20 08:37 Calcium Carbonate 750 Mg Tab.Chew PO Q4H PRN hypocalcemia Cilostazol 100 mg 08/28/20 21:00 09/04/20 20:24 Cilostazol 100 Mg Tablet PO 100 mg BID@1200,2100 JOEL Administration Clopidogrel Bisulfate 75 mg 08/29/20 09:00 09/05/20 08:58 Clopidogrel Bisulfate 75 Mg Tablet PO 75 mg DAILY JOEL Administration Heparin Sodium (Porcine) 5,000 unit 08/26/20 08:00 09/05/20 08:56 Heparin Sodium,Porcine 5,000 Unit/Ml Vial SUBCUT 5,000 unit Q8H JOEL Administration Hydromorphone HCl 0.5 mg 08/27/20 15:55 09/04/20 05:46 Hydromorphone Hcl 0.5 Mg/0.5 Ml Syringe IVPUSH 0.5 mg Q1H PRN Administration mild pain Hydromorphone HCl 1 mg 08/27/20 15:56 09/04/20 15:58 Hydromorphone Hcl 1 Mg/Ml Syringe IVPUSH 1 mg Q2H PRN Administration moderate pain Insulin Glargine 10 unit 08/29/20 10:30 09/05/20 08:56 Insulin Glargine,Hum.Rec.Anlog 100 Unit/Ml 10 Ml Vial SUBCUT 10 unit DAILY [facility] Administration Insulin Human Lispro 0 unit 08/28/20 16:30 09/05/20 11:59 Insulin Lispro 100 Unit/Ml 3 Ml Vial SUBCUT Not Given QIDACHS [facility] Protocol Levothyroxine Sodium 25 mcg 08/29/20 06:00 09/05/20 06:05 Levothyroxine Sodium 25 Mcg Tablet PO 25 mcg DAILY@0600 JOEL Administration Montelukast Sodium 10 mg 08/19/20 21:00 09/04/20 20:24 Montelukast Sodium 10 Mg Tablet PO 10 mg BEDTIME JOEL Administration Ondansetron HCl 4 mg 09/02/20 09:42 09/05/20 08:56 Ondansetron Hcl 4 Mg/2 Ml Vial IVPUSH 4 mg ONCE PRN Administration Nausea and Vomiting Oxycodone HCl 5 mg 09/05/20 10:51 Oxycodone Hcl Immed Release 5 Mg Tablet PO Q4H PRN Pain, Mild (Pain Scale 1-3) Sevelamer Carbonate 800 mg 08/30/20 12:00 09/05/20 08:56 Sevelamer Carbonate Tablet 800 Mg Tablet PO 800 mg TIDWM JOEL Administration Sodium Chloride 3 ml 08/19/20 00:00 09/05/20 07:51 0.9 % Sodium Chloride Flush 3 Ml Syringe IVFLUSH Not Given QSHIFT JOEL Venlafaxine HCl 37.5 mg 08/29/20 09:00 09/05/20 08:56 Venlafaxine Hcl Er 37.5 Mg Cap.Er.24h PO 37.5 mg DAILY JOEL Administration Vitamin D 25 mcg 08/30/20 09:00 09/05/20 08:56 Cholecalciferol (Vitamin D3) 25 Mcg Tablet PO 25 mcg DAILY JOEL Administration Time Spent With Patient Time: Total time spent is greater than 50% in coordination of care (as documented) at patient's floor/unit and/or counseling patient: Time with patient: 25 - 35 minutes Procedures Date of Service Date of Service: 09/05/20 Quality Stroke Does the patient have a stroke diagnosis?: No VTE Prior VTE?: No VTE Risk Level:: Medical - low VTE Device Contraindication: N/A - Device Ordered VTE Drug Contraindication: N/A - Med Ordered
--- NOTE | 2020-09-05 12:15 | MHC.CM.PN ---
IMM 09/05/20, EMR REVIEWED, PER HOSPITALIST PT WILL BE READY FOR D/C TOMORROW, CM MET W/PT WHO REPORTS SHE WANTS STR AFTER EXTENSIVE HOSPITAL STAY, REFERRAL SENT TO [facility] [address] FOR STR AND REPORTS SHE WANTS TO GO TO A LONGTERM D/T LIVING ON THE 3RD ND W/NO ELEVATOR, PT WAS OFFERED AMBULANCE R[facility] AND PT ENCOURAGED TO REQUEST A LETTER FROM HER PCP FOR AN APT ON FIRST FLOOR, HOWEVER PT REPORTS SHE WOULD LIKE REHAB PRIOR TO RETURNING HOME. D/C PLAN: [facility] FOR STR, [facility] FOR BLS TRANSPORT
[2020-09-05] MEDS: cilostazoL 100 MG TABLET PO ×2 (13:20→20:09)
--- NOTE | 2020-09-05 14:40 | PC.NURSE ---
patient refusing orthostatic vital sign at this time.
--- NOTE | 2020-09-05 15:52 | PC.NURSE ---
Addendum entered by Jennifer Gómez RN 09/05/20 16:01: Ladan Jackson NP was sent picture via tiger text and asked to reflect in her note. Original Note: Skin assessment completed today. Redness under breast using InterDry. Stage 2 on coccyx-applying Xeroform and Allevyn foam. Amputation of left great toe, dressing changed by surgeon today. C/D/I
[2020-09-05] MEDS: Nicotine 7 MG PATCH.TD24 TRANSDERMA (16:21)
[2020-09-05] MEDS: 0.9 % Sodium Chloride Flush 3 ML SYRINGE IVFLUSH ×2 (16:21→23:55)
[2020-09-05] MEDS: HYDROmorphone HCl 1 MG/ML SYRINGE IVPUSH (16:22)
[2020-09-05 16:35] LABS: Glucose, Whole Blood 97 mg/dL (60-115)
--- NOTE | 2020-09-05 16:41 | P.PNNP_ITS ---
Subjective Subjective Date of Service: 09/05/20 Principal diagnosis: mary kate/ckd Interval history: Follow up re CKD / MARY KATE sitting up in the chair 3 L output Physical Exam Vital Signs: Vital Signs: Last Vital Signs Temp 97.3 F 09/05/20 15:00 Pulse 81 09/05/20 15:00 Resp 18 09/05/20 15:00 BP 169/77 H 09/05/20 15:00 Pulse Ox 98 09/05/20 15:00 Body Mass Index 32.0 Const: General: cooperative, healthy appearing, comfortable, no acute distress, awake and other (Patient intubated and sedated) Nutritional Appearance: overweight Orientation/consciousness: oriented to person, oriented to place, oriented to time and patient oriented x3 HENMT: Head: Yes normal to inspection, Yes normocephalic and Yes atraumatic Mouth: Normal oral and palatal mucosa present Eyes: General: appearance normal, both eyes and all related structures Neck: Neck: Yes normal visual inspection, Yes trachea midline, Yes supple, Yes no JVD and Yes other (Right IJ line) Carotids: no bruits Chest: Chest palpation & inspection: normal inspection of the chest Resp: Effort & Inspection: normal respiratory effort and able to speak in complete sentences Auscultation: clear to auscultation bilaterally, no crackles, no rales, rhonchi, no wheezes, diminished lung sounds and other (Coars e breath sounds.) Cardio: Palpation: normal PMI and no palpable S3 Rate: regular rate Rhythm: regular rhythm Heart sounds: S1 normal heart sound present, S2 normal heart sound present, Murmur heart sound present systolic at the right sternal border and no rubs Bruits: no carotid bruits Peripheral pulses: dorsalis pedis present (Bilateral DP signals) GI: Inspection: Yes normal to inspection Palpation (GI): Soft to palpation and nontender Auscultation: normal bowel sounds : General: Yes no CVA tenderness Back/Spine/Pelvis: Back: no CVA tenderness Skin: General skin exam: no rashes or lesions noted Wounds: wounds noted (Nonhealing left great toe) Hair: normal Neuro: General: oriented to person, oriented to place, oriented to time, patient oriented x3, moves all extremities and CN's II-XI intact bilaterally Cranial nerves: Yes CN's II-XII intact bilaterally and Yes Normal hearing present Cognition (Neuro): normal cognition Motor exam (neuro): 5/5 motor strength present throughout and No Asterixis during motor activity present Extrem: General: Yes normal to inspection, Yes full ROM, Yes no clubbing, cyanosis or edema, No clubbing, No cyanosis and No edema Psych: Appearance: grossly normal and well kempt Mental Status: mental status grossly normal Speech and movement: Normal speech and movement present Affect: normal affect Objective Data Labs CBC & Chem 7: 09/05/20 06:55 09/05/20 06:55 Labs: Laboratory Results - last 24 hr 08/30/20 09/04/20 09/05/20 08:14 20:30 06:55 WBC 10.1 RBC 3.22 L Hgb 8.7 L Hct 27.9 L MCV 86.6 MCH 27.0 MCHC 31.2 RDW 15.1 Plt Count 194 MPV 10.6 Immature Gran % (Auto) 1.0 H Neut % (Auto) 73.5 H Lymph % (Auto) 9.5 L [place] % (Auto) 10.3 Eos % (Auto) 5.4 H Baso % (Auto) 0.3 Lymph # (Auto) 1.0 L [place] # (Auto) 1.0 Eos # (Auto) 0.5 H Baso # (Auto) 0.0 Abs Immat Gran (auto) 0.10 H Absolute Neuts (auto) 7.4 Absolute Nucleated RBC 0.000 Nucleated RBC % (auto) 0.0 PT INR APTT VBG pH VBG pCO2 VBG pO2 VBG HCO3 VBG O2 Saturation VBG Base Excess Sodium Potassium Chloride Carbon Dioxide Anion Gap BUN Creatinine Estim Creat Clear Calc Estimated GFR POC Glucose 144 H Random Glucose Calcium Ionized Calcium 2.9 (L) Phosphorus Magnesium Albumin 09/05/20 09/05/20 09/05/20 06:55 06:55 06:55 WBC RBC Hgb Hct MCV MCH MCHC RDW Plt Count MPV Immature Gran % (Auto) Neut % (Auto) Lymph % (Auto) [place] % (Auto) Eos % (Auto) Baso % (Auto) Lymph # (Auto) [place] # (Auto) Eos # (Auto) Baso # (Auto) Abs Immat Gran (auto) Absolute Neuts (auto) Absolute Nucleated RBC Nucleated RBC % (auto) PT 12.7 INR 1.1 APTT 35.7 VBG pH VBG pCO2 VBG pO2 VBG HCO3 VBG O2 Saturation VBG Base Excess Sodium 143 Potassium 3.4 Chloride 97 Carbon Dioxide 28 Anion Gap 21 H BUN 59 H Creatinine 3.90 H Estim Creat Clear Calc 12.8 Estimated GFR 12 POC Glucose Random Glucose 118 H Calcium 5.9 L* Ionized Calcium Phosphorus 4.6 H 4.6 H Magnesium 1.8 Albumin 2.8 L 09/05/20 09/05/20 09/05/20 07:12 07:27 11:21 WBC RBC Hgb Hct MCV MCH MCHC RDW Plt Count MPV Immature Gran % (Auto) Neut % (Auto) Lymph % (Auto) [place] % (Auto) Eos % (Auto) Baso % (Auto) Lymph # (Auto) [place] # (Auto) Eos # (Auto) Baso # (Auto) Abs Immat Gran (auto) Absolute Neuts (auto) Absolute Nucleated RBC Nucleated RBC % (auto) PT INR APTT VBG pH 7.47 H VBG pCO2 34 VBG pO2 54 VBG HCO3 25 VBG O2 Saturation 81.0 VBG Base Excess 2.4 Sodium Potassium Chloride Carbon Dioxide Anion Gap BUN Creatinine Estim Creat Clear Calc Estimated GFR POC Glucose 122 H 144 H Random Glucose Calcium Ionized Calcium Phosphorus Magnesium Albumin 09/05/20 16:31 WBC RBC Hgb Hct MCV MCH MCHC RDW Plt Count MPV Immature Gran % (Auto) Neut % (Auto) Lymph % (Auto) [place] % (Auto) Eos % (Auto) Baso % (Auto) Lymph # (Auto) [place] # (Auto) Eos # (Auto) Baso # (Auto) Abs Immat Gran (auto) Absolute Neuts (auto) Absolute Nucleated RBC Nucleated RBC % (auto) PT INR APTT VBG pH VBG pCO2 VBG pO2 VBG HCO3 VBG O2 Saturation VBG Base Excess Sodium Potassium Chloride Carbon Dioxide Anion Gap BUN Creatinine Estim Creat Clear Calc Estimated GFR POC Glucose 97 Random Glucose Calcium Ionized Calcium Phosphorus Magnesium Albumin Microbiology Microbiology Results: Microbiology Assessment & Plan Assessment and plan (1) Pneumonitis: Status: Acute Assessment and Plan: 1. MARY KATE: cont incr SCR and c/w new ischemic ATN hit; given markedly abnl CXR and ques of pulm hem ANCA - normal. 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 no hypotension CAROL/IRD and ques chol emboli: all definite poss given severity of ASVD No Obs by renal U/s 2. CKD 4: bsl SCr 2.0: most c/w DN/HTN renal dis 3. AMS: suspect med pregabapentin playing signif role : Improved 4. HypoCa: decr CA further d/t decr alb 5. AGMA/NAGMA: resolved with IV NaHCO3 6. Impressive CXR abbnl and yet O2 requirements minimal --no A-a gradient; CHF vs ARDS 7- Gangrene of Toe - had toe amputation surgery Currently non oliguric Avoid Nephrotoxisn - off Vanco Cr is better Continue IVF to 75v ml / hr No overt s/s of uremia no absolute indication for dialysis yet Continue to keep O > I On Amlodipine - will not increase the dose-t Clonidine patch # 1 > can increase to #2 Given improvement cr down to 3.9 - No need for a renal BX Time Spent With Patient Time: Total time spent is greater than 50% in coordination of care (as documented) at patient's floor/unit and/or counseling patient: Procedures Date of Service Date of Service: 09/05/20 Progress Note: Quality Stroke Does the patient have a stroke diagnosis?: No
[2020-09-05] MEDS: Montelukast Sodium 10 MG TABLET PO (20:08)
[2020-09-05] MEDS: Atorvastatin Calcium 80 MG TABLET PO (20:08)
[2020-09-05 20:49] LABS: Glucose, Whole Blood 82 mg/dL (60-115)
--- NOTE | 2020-09-05 23:30 | PC.NURSE ---
pt transferred to [facility] d/t staffing not due to change of condition report given to Brandon
[2020-09-06 03:00] VITALS: BP 153/70; PULSE 96; RESP 20; TEMP 37; O2SAT 92
[2020-09-06 03:30] LABS: Glucose, Whole Blood 45 mg/dL (60-115)
[2020-09-06 03:54] LABS: Glucose, Whole Blood 72 mg/dL (60-115)
[2020-09-06] MEDS: Levothyroxine Sodium 25 MCG TABLET PO (05:20)
[2020-09-06 05:27] LABS: Glucose, Whole Blood 89 mg/dL (60-115)
[2020-09-06 06:39] LABS: Magnesium 1.7 mg/dL (1.6-2.6)
[2020-09-06 07:00] VITALS: BP 131/67; PULSE 85; RESP 18; TEMP 36.1; O2SAT 93
[2020-09-06 07:32] LABS: Glucose, Whole Blood 90 mg/dL (60-115)
[2020-09-06] MEDS: Sevelamer Carbonate Tablet 800 MG TABLET PO ×2 (09:07→13:36)
[2020-09-06 09:08] VITALS: BP 131/67; PULSE 85
[2020-09-06] MEDS: Clopidogrel Bisulfate 75 MG TABLET PO (09:08)
[2020-09-06] MEDS: Aspirin Enteric Coated 81 MG TABLET.DR PO (09:08)
[2020-09-06] MEDS: amLODIPine Besylate 5 MG TABLET PO (09:08)
[2020-09-06] MEDS: Cholecalciferol (Vitamin D3) 25 MCG TABLET PO (09:08)
[2020-09-06] MEDS: 0.9 % Sodium Chloride Flush 3 ML SYRINGE IVFLUSH (09:09)
[2020-09-06] MEDS: Heparin Sodium,Porcine 5,000 UNIT/ML VIAL 5000 UNIT SUBCUT (09:09)
[2020-09-06] MEDS: Venlafaxine HCl ER 37.5 MG CAP.ER.24H PO (09:11)
[2020-09-06] MEDS: Nicotine 7 MG PATCH.TD24 TRANSDERMA (09:22)
[2020-09-06] MEDS: oxyCODONE HCl Immed Release 5 MG TABLET PO (09:23)
[2020-09-06 10:18] VITALS: BP 131/67; PULSE 85
[2020-09-06 11:00] VITALS: BP 125/64; PULSE 84; RESP 18; TEMP 36.2; O2SAT 95
--- NOTE | 2020-09-06 11:10 | PM.DS ---
DS: Providers Provider Date of Service: 09/06/20 <Ladan Jackson NP - Last Filed: 09/06/20 16:38> Date of admission: 08/18/20 21:39 <Ladan Jackson NP - Last Filed: 09/06/20 16:38> Date of discharge: 09/06/20 <Ladan Jackson NP - Last Filed: 09/06/20 16:38> Primary care physician: Senait Pal MD <Ladan Jackson NP - Last Filed: 09/06/20 16:38> Admitting clinician: Angi Whitaker <Ladan Jackson NP - Last Filed: 09/06/20 16:38> Attending physician on admission: Angi Whitaker <Ladan Jackson NP - Last Filed: 09/06/20 16:38> Consults: 08/18/20 23:57 Consult to General Surgery Routine Consulting Provider: Robina Lal Reason for consultation: osteomyelitis Has provider been notified: No Consult to Infectious Diseases Routine Consulting Provider: Amy Gage Reason for consultation: osteoyelitis Has provider been notified: No 08/19/20 10:55 Consult to Vascular Surgery Routine Consulting Provider: David Butler Reason for consultation: osteomyelitis left great toe Has provider been notified: No 08/21/20 08:53 Consult to Nephrology Routine Consulting Provider: Stew Liu Reason for consultation: MARY KATE, low calcium Has provider been notified: No 08/23/20 07:31 Consult to Neurology Routine Consulting Provider: [facility] Reason for consultation: Encephalopathy Has provider been notified: No 08/25/20 04:49 Consult to Pulmonology Stat Consulting Provider: Colette García Reason for consultation: Hypoxic resp failure 08/26/20 10:17 Consult to Cardiology Routine Consulting Provider: Satinder Christopher Reason for consultation: ? Congestive heart failure with pulmonary edema Has provider been notified: Yes 09/02/20 06:59 Consult to Pulmonology Routine Consulting Provider: [facility] Reason for consultation: acute repiratory failure /recent ?ards ,going for toe surgery today Has provider been notified: No <Ladan Jackson NP - Last Filed: 09/06/20 16:38> Attending physician on discharge: Alexys Bird <Ladan Jackson NP - Last Filed: 09/06/20 16:38> Discharging clinician: Ladan Jackson <Ladan Jackson NP - Last Filed: 09/06/20 16:38> DS: Diagnosis Discharge Diagnosis (1) ARDS (adult respiratory distress syndrome): Status: Acute <Ladan Jackson NP - Last Filed: 09/06/20 16:38> (2) Acute kidney injury superimposed on CKD: Status: Acute <Ladan Jackson NP - Last Filed: 09/06/20 16:38> (3) Acute respiratory failure with hypoxemia: Status: Acute <Ladan Jackson NP - Last Filed: 09/06/20 16:38> (4) Metabolic encephalopathy: Status: Acute <Ladan Jackson NP - Last Filed: 09/06/20 16:38> (5) Pneumonitis: Status: Acute <Ladan Jackson NP - Last Filed: 09/06/20 16:38> (6) Osteomyelitis of great toe of left foot: Status: Acute <Ladan Jackson NP - Last Filed: 09/06/20 16:38> (7) Hypocalcemia: Status: Acute <Ladan Jackson NP - Last Filed: 09/06/20 16:38> DS: Medications Discharge Medications Home Medications: Home Medications Medication Instructions Recorded Confirmed aspirin 1 tab PO QAM 05/17/20 08/19/20 atorvastatin 1 tab PO BEDTIME 05/17/20 08/19/20 cholecalciferol (vitamin D3) 1 cap PO QAM 05/17/20 08/19/20 [Vitamin D3] cilostazol 100 mg PO BID@1200,2100 05/17/20 08/19/20 clopidogrel 1 tab PO QAM 05/17/20 08/19/20 ferrous sulfate 1 tab PO QAM 05/17/20 08/19/20 insulin lispro [Humalog KwikPen 10 unit SUBCUT TIDAC 05/17/20 08/19/20 Insulin] levothyroxine 1 tab PO QAM 05/17/20 08/19/20 loratadine 1 tab PO QAM 05/17/20 08/19/20 metoprolol tartrate 1 tab PO BID 05/17/20 08/19/20 montelukast 1 tab PO BEDTIME 05/17/20 08/19/20 venlafaxine 1 cap PO QAM 05/17/20 08/19/20 Previous Rx's Medication Instructions Recorded calcium carbonate-vitamin D3 1 tab PO BID #60 tab 05/20/20 [Calcium 500 + D] amlodipine 5 mg PO DAILY #30 tab 09/06/20 calcium carbonate [Oyster Shell 500 mg PO TIDWM #90 tab 09/06/20 Calcium 500] nicotine 7 mg TRANSDERMAL DAILY #14 ea 09/06/20 <Ladan Jackson NP - Last Filed: 09/06/20 16:38> DS: Summary Hospital Course Hospital Course: HP as per admitting provider 65 Year old female with past medical history of anemia, asthma, diabetes, HTN, HLD, hypothyroidism, neuropathy severe peripheral vascular disease bilateral a who presents to the hospital with complaints of left big toe worsening infection. Patient reports that the infection started 2 months ago and she has been going to Wound now are every Saturday but on Saturday the pain worsened to 10/10, she noticed swelling as well as drainage from the big toe. She has had fever for the past 3 days up to 102, some chills, some diarrhea, no abdominal pain no nausea or vomiting, no urinary symptoms and otherwise no lower extremity edema. Patient hemodynamically stable with no significant abnormal vitals. Labs are significant for WBC count of 12.2, hemoglobin of 10.2, PT of 14.7, INR of 1.2, sodium of 134, potassium 3.2, creatinine of 2.3 with a baseline around 1.8-1.98, CRP of 23, ESR of 100, COVID-19 negative. Worsening infection in the great toe with interval gas in great toe soft tissues and subtle decreased attenuation at the medial base 1st distal phalanx . Encephalopathy /acute hypoxemic respiratory failure. Patient was continued on her home medications and throughout the weekend seemed to be getting more more confused by the 3rd or 4th day she became almost comatose and unresponsive. She had multiple diagnostic imaging studies including MRI which ruled out stroke, she was hemodynamically stable however she was transferred to the ICU due to somnolence and hypoxia. Found to be in ARDS She was intubated and was in the ICU for 5 days, subsequently extubated. patient slowly became more alert and more responsive. The culprit seems to be related to her Lyrica that she was getting also in light of renal failure caused this toxic encephalopathy. It is plausable that she was not taking this medication at home and when it was started/continued here she became obtunded. She is clear at this time and able to make her own medical decisions, however of note her son Javi at one time during her admission to the ICU was invoked as healthcare proxy. Osteomyelitis. History of peripheral vascular disease, Nonhealing left great toe wound with gangrene and osteomyelitis. Status post left great toe amputation. Follow-up with vascular surgery for staple removal. MARY KATE. 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 Trended down but still elevated from baseline of around 2.0. Seen and evaluated by nephrology. Multifactorial with differential of ATN vs GN, no hypotension or obstruction. check BMP in 3 days. Avoid Nephrotoxins. Hypertension. Blood pressure has been consistently elevated. Current regimen of amlodipine seems to be working. May consider adding another agent as outpatient for tighter control. Hypocalcemia. Ionized calcium 2.9, calcium 5.9 corrected around 6 and half. Started on calcium supplementation. Stage II coccyx wound. Monitor, Foam dressing. Attending Attestation: Patient seen and examined independently and I was present during sotomayor portion of E/M service. Agree with Carmen Jackson NP's history, physical, assessment, and plan. <Ladan Jackson NP - Last Filed: 09/06/20 16:38> Time Spent with Patient Time attestation: Total time spent providing and/or coordinating discharge services: <Ladan Jackson NP - Last Filed: 09/06/20 16:38> Discharge coordination time: Greater than 30 minutes <Ladan Jackson NP - Last Filed: 09/06/20 16:38> Quality: Stroke Does the patient have a stroke diagnosis?: No <Ladan Jackson NP - Last Filed: 09/06/20 16:38> Physical Exam Vital Signs: Vital Signs: Last Vital Signs Temp 97.1 F 09/06/20 11:00 Pulse 84 09/06/20 11:00 Resp 18 09/06/20 11:00 BP 125/64 09/06/20 11:00 Pulse Ox 95 09/06/20 11:00 Body Mass Index 32.0 <Ladan Jackson NP - Last Filed: 09/06/20 16:38> Appearing in no acute distress head is normocephalic atraumatic eyes pupils are PERRLA sclera is anicteric mouth throat mucous membranes are intact and moist neck is supple no lymphadenopathy, no JVD noted lung sounds are clear to auscultation heart regular rate rhythm, clear S1, S2 positive bowel sounds, abdomen is soft, nontender neuro patient is alert x3, no focal deficits <Ladan Jackson NP - Last Filed: 09/06/20 16:38> DS: Data Data Completed and Pending Pending studies at discharge: Pending at discharge 09/02/20 09:31 Surgical [PTH] Routine <Ladan Jackson NP - Last Filed: 09/06/20 16:38> Labs on day of discharge: Laboratory Results - last 24 hr 09/05/20 09/05/20 09/05/20 11:21 16:31 20:44 POC Glucose 144 H 97 82 Magnesium 09/06/20 09/06/20 09/06/20 03:23 03:50 05:18 POC Glucose 45 L* 72 Magnesium 1.7 09/06/20 09/06/20 05:22 07:19 POC Glucose 89 90 Magnesium <Ladan Jackson NP - Last Filed: 09/06/20 16:38> Discharge Plan Discharge Anticipated Discharge Date/Time: 09/06/20 10:58 <Ladan Jackson NP - Last Filed: 09/06/20 16:38> Patient Disposition: Xfer Inpatient Rehab Fac <Ladan Jackson NP - Last Filed: 09/06/20 16:38> Discharge Diagnosis: osteomyelitis acute hypoxemic respiratory failure toxic metabolic encephalopathy MARY KATE on CKD hypocalcemia <Ladan Jackson NP - Last Filed: 09/06/20 16:38> osteomyelitis acute hypoxemic respiratory failure toxic metabolic encephalopathy MARY KATE on CKD hypocalcemia <Alexys Bird MD - Last Filed: 09/07/20 16:26> Referrals: [facility] [Other] - 1 Week Rob Alexandra MD [Physician] - 1 Week (MARY KATE On CKD ) David Butler MD [Physician] - 2 Weeks Senait Pal MD [Primary Care Provider] - 1 Week <Ladan Jackson NP - Last Filed: 09/06/20 16:38> Discharge Medications: New nicotine 7 mg/24 hr Patch 24 Hour 7 mg transdermal DAILY Qty: 14 RF: 0 amlodipine 5 mg Tablet 5 mg PO DAILY Qty: 30 RF: 0 calcium carbonate [Oyster Shell Calcium 500] 500 mg calcium (1,250 mg) Tablet 500 mg PO TIDWM Qty: 90 RF: 0 metoprolol tartrate 25 mg tablet 25 mg PO DAILY Qty: 30 RF: 0 Continued cilostazol 100 mg tablet 100 mg PO BID@1200,2100 RF: 0 atorvastatin 80 mg tablet 1 tab PO BEDTIME RF: 0 venlafaxine 37.5 mg capsule,extended release 24hr 1 cap PO QAM RF: 0 clopidogrel 75 mg tablet 1 tab PO QAM RF: 0 aspirin 81 mg tablet,delayed release (DR/EC) 1 tab PO QAM RF: 0 levothyroxine 25 mcg tablet 1 tab PO QAM RF: 0 ferrous sulfate 325 mg (65 mg iron) tablet 1 tab PO QAM RF: 0 montelukast 10 mg tablet 1 tab PO BEDTIME RF: 0 loratadine 10 mg tablet 1 tab PO QAM RF: 0 cholecalciferol (vitamin D3) [Vitamin D3] 25 mcg (1,000 unit) capsule 1 cap PO QAM RF: 0 insulin lispro [Humalog KwikPen Insulin] 100 unit/mL insulin pen 10 unit subcut TIDAC RF: 0 metoprolol tartrate 25 mg tablet 1 tab PO BID RF: 0 calcium carbonate-vitamin D3 [Calcium 500 + D] 500 mg(1,250mg) -400 unit tablet 1 tab PO BID Qty: 60 RF: 0 Discontinued amlodipine 2.5 mg tablet 1 tab PO QAM RF: 0 pregabalin 150 mg capsule 1 cap PO BID RF: 0 cephalexin 500 mg capsule 500 mg PO Q8H Qty: 21 RF: 0 <Ladan Jackson NP - Last Filed: 09/06/20 16:38> Discharge Orders: Discharge Order (Routine); Ordered 09/06/20 Ordered By: Ladan Jackson <Ladan Jackson NP - Last Filed: 09/06/20 16:38> Diet: advance to usual diet <Ladan Jackson NP - Last Filed: 09/06/20 16:38> advance to usual diet <Alexys Bird MD - Last Filed: 09/07/20 16:26> Activity on Discharge: As tolerated <Ladan Jackson NP - Last Filed: 09/06/20 16:38> As tolerated <Alexys Bird MD - Last Filed: 09/07/20 16:26> Stand Alone Forms: Patient Portal Discharge page <Ladan Jackson NP - Last Filed: 09/06/20 16:38> Other Ambulatory Orders: Basic Metabolic Panel Fasting (Routine) Timeframe: 3 Days Facility: [facility] - Location: Laboratory Ordered By: Ladan Jackson <Ladan Jackson NP - Last Filed: 09/06/20 16:38> Activity Restrictions/Additional Instructions: Wound care upon discharge: xeroform, 4x4 and Kerlix wrap to be changed daily. Please call Dr. Butler at [phone] for 2 week follow up for suture and staple removal <Ladan Jackson NP - Last Filed: 09/06/20 16:38> Care Plan Goals: Healing of left toe amputation <Ladan Jackson NP - Last Filed: 09/06/20 16:38> Health Concerns: osteomyelitis acute hypoxemic respiratory failure toxic metabolic encephalopathy MARY KATE on CKD hypocalcemia <Ladan Jackson NP - Last Filed: 09/06/20 16:38> Plan of Treatment: follow-up with the vascular surgeon in 2 weeks, see discharge referrals follow-up with your primary care provider as needed when discharged from the rehab facility. <Ladan Jackson NP - Last Filed: 09/06/20 16:38> Assessment: see discharge summary <Ladan Jackson NP - Last Filed: 09/06/20 16:38> Discharge Date/Time: 09/06/20 17:26 <Ladan Jackson NP - Last Filed: 09/06/20 16:38>
[2020-09-06 11:30] LABS: Glucose, Whole Blood 70 mg/dL (60-115)
--- NOTE | 2020-09-06 11:45 | P.PNNP_ITS ---
Subjective Subjective Date of Service: 09/06/20 Principal diagnosis: mary kate/ckd Interval history: Follow up re CKD / MARY KATE sitting up in the chair 2 L output No new labs Physical Exam Vital Signs: Vital Signs: Last Vital Signs Temp 97.1 F 09/06/20 11:00 Pulse 84 09/06/20 11:00 Resp 18 09/06/20 11:00 BP 125/64 09/06/20 11:00 Pulse Ox 95 09/06/20 11:00 Body Mass Index 32.0 Const: General: cooperative, healthy appearing, comfortable, no acute distre ss, awake and other (Patient intubated and sedated) Nutritional Appearance: overweight Orientation/consciousness: oriented to person, oriented to place, oriented to time and patient oriented x3 HENMT: Head: Yes normal to inspection, Yes normocephalic and Yes atraumatic Mouth: Normal oral and palatal mucosa present Eyes: General: appearance normal, both eyes and all related structures Neck: Neck: Yes normal visual inspection, Yes trachea midline, Yes supple, Yes no JVD and Yes other (Right IJ line) Carotids: no bruits Chest: Chest palpation & inspection: normal inspection of the chest Resp: Effort & Inspection: normal respiratory effort and able to speak in complete sentences Auscultation: clear to auscultation bilaterally, no crackles, no rales, rhonchi, no wheezes, diminished lung sounds and other (Coarse breath sounds.) Cardio: Palpation: normal PMI and no palpable S3 Rate: regular rate Rhythm: regular rhythm Heart sounds: S1 normal heart sound present, S2 normal heart sound present, Murmur heart sound present systolic at the right sternal border and no rubs Bruits: no carotid bruits Peripheral pulses: dorsalis pedis present (Bilateral DP signals) GI: Inspection: Yes normal to inspection Palpation (GI): Soft to palpation and nontender Auscultation: normal bowel sounds : General: Yes no CVA tenderness Back/Spine/Pelvis: Back: no CVA tenderness Skin: General skin exam: no rashes or lesions noted Wounds: wounds noted (Nonhealing left great toe) Hair: normal Neuro: General: oriented to person, oriented to place, oriented to time, patient oriented x3, moves all extremities and CN's II-XI intact bilaterally Cranial nerves: Yes CN's II-XII intact bilaterally and Yes Normal hearing presen t Cognition (Neuro): normal cognition Motor exam (neuro): 5/5 motor strength present throughout and No Asterixis during motor activity present Extrem: General: Yes normal to inspection, Yes full ROM, Yes no clubbing, cyanosis or edema, No clubbing, No cyanosis and No edema Psych: Appearance: grossly normal and well kempt Mental Status: mental status grossly normal Speech and movement: Normal speech and movement present Affect: normal affect Objective Data Labs CBC & Chem 7: 09/05/20 06:55 09/05/20 06:55 Labs: Laboratory Results - last 24 hr 09/05/20 09/05/20 09/06/20 16:31 20:44 03:23 POC Glucose 97 82 45 L* Magnesium 09/06/20 09/06/20 09/06/20 03:50 05:18 05:22 POC Glucose 72 89 Magnesium 1.7 09/06/20 09/06/20 07:19 11:04 POC Glucose 90 70 Magnesium Microbiology Microbiology Results: Microbiology 08/24/20 09:53 Blood - Venous Blood Culture - Final No growth after 5 days. 08/24/20 09:52 Blood - Venous Blood Culture - Final No growth after 5 days. 08/25/20 06:49 Sputum - Suctioned Gram Stain - Final 08/25/20 06:49 Sputum - Suctioned Sputum Culture - Final 08/18/20 16:15 Blood - Venous Blood Culture - Final No growth after 5 days. 08/18/20 16:15 Blood - Venous Blood Culture - Final No growth after 5 days. Assessment & Plan Assessment and plan (1) Pneumonitis: Status: Acute Assessment and Plan: 1. MARY KATE: cont incr SCR and c/w new ischemic ATN hit; given markedly abnl CXR and ques of pulm hem ANCA - normal. Anti GBM neg Both C3 and C4 are low-? post inf GN other possibility multifact ATN: no obvious insults.. no hypotension CAROL/IRD and ques chol emboli: all definite poss given severity of ASVD No Obs by renal U/s renal func better. Check renal func in AM Expect cr to get to baseline 2. CKD 4: bsl SCr 2.0: most c/w DN/HTN renal dis 3. AMS: suspect med pregabapentin playing signif role : Improved 4. HypoCa: decr CA further d/t decr alb 5. AGMA/NAGMA: resolved with IV NaHCO3 6. Impressive CXR abbnl and yet O2 requirements minimal --no A-a gradient; CHF vs ARDS 7- Gangrene of Toe - had toe amputation surgery Time Spent With Patient Time: Total time spent is greater than 50% in coordination of care (as documented) at patient's floor/unit and/or counseling patient: Procedures Date of Service Date of Service: 09/06/20 Progress Note: Quality Stroke Does the patient have a stroke diagnosis?: No
--- NOTE | 2020-09-06 12:35 | MHC.CM.PN ---
pt to be transferred for 5:00 per md request to [facility] iza left for donna ching [phone] re katherine today
[2020-09-06 12:57] LABS: COVID-19 Test Negative (Negative)
[2020-09-06] MEDS: cilostazoL 100 MG TABLET PO (13:36)
[2020-09-06 14:06] LABS: PTHI 97 pg/mL (14-64)
[2020-09-06 15:00] VITALS: BP 152/64; PULSE 91; RESP 20; TEMP 36.7; O2SAT 94
[2020-09-06 16:09] LABS: Glucose, Whole Blood 116 mg/dL (60-115)
[2020-09-06 18:56] LABS: Calcium, Random Urine 2.1 mg/dL
[2020-09-07 10:48] LABS: Calcium (PTHI) 5.66
[2020-09-17 18:46] LABS: Vitamin D 25-OH, D2 5 ng/mL; Vitamin D 25-OH, D3 24 ng/mL; Vitamin D 25-OH, Total 29 ng/mL (30-100)
== END 2020-09-06 17:26 | DRG 616 ==
LOC: HO.ED 16:46 → HO.EDOVER 22:30 → HO.S3 22:37 → HO.IMC 08-23 23:18 → HO.ICU 08-25 05:12 → HO.S3 08-31 15:21 → HO.IMC 09-05 23:37
PROVIDERS: Anesthesiology; Hospitalist; Internal Medicine; Internal Medicine Cardiovascular Disease; Internal Medicine Nephrology; Nurse Practitioner Acute Care; Physician Assistant; Physician Assistant Medical; Surgery Vascular Surgery; Admitting Provider Internal Medicine; Emergency Provider Emergency Medicine; PCP Family Medicine; Visit Provider Family Medicine
PROC: 0Y6Q0Z0 Detachment at Left 1st Toe, Complete, Open Approach (ICD-10-PCS; principal; 2020-09-02 09:00)
DX: E11.69 Type 2 diabetes mellitus with other specified complication (principal); G93.41 Metabolic encephalopathy; J69.0 Pneumonitis due to inhalation of food and vomit; A41.9 Sepsis, unspecified organism; J80 Acute respiratory distress syndrome; M86.9 Osteomyelitis, unspecified; E87.2 Acidosis; L97.526 Non-pressure chronic ulcer of other part of left foot with bone involvement without evidence of necrosis; E11.52 Type 2 diabetes mellitus with diabetic peripheral angiopathy with gangrene; E11.42 Type 2 diabetes mellitus with diabetic polyneuropathy; N17.0 Acute kidney failure with tubular necrosis; N18.4 Chronic kidney disease, stage 4 (severe); E03.9 Hypothyroidism, unspecified; D63.1 Anemia in chronic kidney disease; E86.0 Dehydration; E87.6 Hypokalemia; M65.9 Synovitis and tenosynovitis, unspecified; E78.5 Hyperlipidemia, unspecified; E83.51 Hypocalcemia; I12.9 Hypertensive chronic kidney disease with stage 1 through stage 4 chronic kidney disease, or unspecified chronic kidney disease; E11.22 Type 2 diabetes mellitus with diabetic chronic kidney disease; E11.621 Type 2 diabetes mellitus with foot ulcer; T42.6X5A Adverse effect of other antiepileptic and sedative-hypnotic drugs, initial encounter; Y92.9 Unspecified place or not applicable; D32.0 Benign neoplasm of cerebral meninges; G92 Toxic encephalopathy; L89.152 Pressure ulcer of sacral region, stage 2; G25.3 Myoclonus; Z20.822 Contact with and (suspected) exposure to COVID-19; Z79.4 Long term (current) use of insulin; Z79.02 Long term (current) use of antithrombotics/antiplatelets; Z79.82 Long term (current) use of aspirin; Z79.890 Hormone replacement therapy; Z79.899 Other long term (current) drug therapy
CPT/HCPCS: 36415; 36600; 70450; 70551; 71045; 71250; 73630; 73720; 76706; 76775; 80048; 80053; 80202; 81001; 82040; 82140; 82306; 82310; 82330; 82607; 82746; 82947; 83520; 83605; 83735; 83880; 83970; 84100; 84443; 85025; 85027; 85610; 85652; 85730; 86021; 86038; 86039; 86140; 86160; 86704; 86706; 86803; 86850; 86900; 86901; 87040; 87070; 87205; 87340; 87635; 88305; 88311; 92610; 93005; 93306; 93923; 93926; 94002; 94003; 94799; 95816; 97110; 97116; 97162; 99283; A9585; J0330; J0610; J0692; J0696; J1170; J1205; J1940; J2270; J2405; J2543; J2930; J3010; J3370; P9047

== ENCOUNTER 2020-09-16 17:27 | Emergency (ER) | payer OTHER, SELFPAY ==
[2020-09-16 17:35] VITALS: BP 188/82; PULSE 72
[2020-09-16 18:13] VITALS: BP 128/71; PULSE 81; RESP 16; TEMP 36.8; O2SAT 100; BMI 30.2
--- NOTE | 2020-09-16 20:42 | ED_ITS ---
HPI - Recheck/Abnormal Lab/Rx General Chief Complaint: Recheck/Abnormal Lab/Rx Stated Complaint: low potassium Time Seen by Provider: 09/16/20 20:42 Source: patient Mode of arrival: ambulatory Limitations: no limitations History of Present Illness HPI narrative: patient was a chronic renal disease and chronic hypo calcemia on calcium tablets sent by PCP for abnormal labs likely hypocalcemia patient denies any symptoms no leg cramps Related Data Home Medications Medication Instructions Recorded Confirmed aspirin 1 tab PO QAM 05/17/20 08/19/20 atorvastatin 1 tab PO BEDTIME 05/17/20 08/19/20 cholecalciferol (vitamin D3) 1 cap PO QAM 05/17/20 08/19/20 [Vitamin D3] cilostazol 100 mg PO BID@1200,2100 05/17/20 08/19/20 clopidogrel 1 tab PO QAM 05/17/20 08/19/20 ferrous sulfate 1 tab PO QAM 05/17/20 08/19/20 insulin lispro [Humalog KwikPen 10 unit SUBCUT TIDAC 05/17/20 08/19/20 Insulin] levothyroxine 1 tab PO QAM 05/17/20 08/19/20 loratadine 1 tab PO QAM 05/17/20 08/19/20 metoprolol tartrate 1 tab PO BID 05/17/20 08/19/20 montelukast 1 tab PO BEDTIME 05/17/20 08/19/20 venlafaxine 1 cap PO QAM 05/17/20 08/19/20 Previous Rx's Medication Instructions Recorded calcium carbonate-vitamin D3 1 tab PO BID #60 tab 05/20/20 [Calcium 500 + D] amlodipine 5 mg PO DAILY #30 tab 09/06/20 calcium carbonate [Oyster Shell 500 mg PO TIDWM #90 tab 09/06/20 Calcium 500] metoprolol tartrate 25 mg PO DAILY #30 tab 09/06/20 nicotine 7 mg TRANSDERMAL DAILY #14 ea 09/06/20 Allergies Allergy/AdvReac Type Severity Reaction Status Date / Time ALLYSSA Inhibitors Allergy Mild COUGH Verified 08/11/20 14:06 [ALLYSSA INHIBITORS] cilostazol [CILOSTAZOL] Allergy Mild COUGH Verified 08/11/20 14:06 Review of Systems Review of Systems: Yes all other systems are reviewed and are negative [facility] Past Medical History Medical History Anemia ARDS (adult respiratory distress syndrome) Asthma-COPD overlap syndrome Diabetes HTN (hypertension) Hypercholesteremia Hypothyroidism Neuropathy Pneumonitis Social History Social History Household Members: Other Housing: Apartment Do you presently have 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 or other home services: Yes Patient Tobacco Use Status: Former Tobacco user Tobacco use type: Cigarette Years Smoked: 45 Advance Directives: Yes Advance Directives on File: Yes Advance Directives Date on File: 08/18/20 service: No Current occupational status: disabled Physical Exam Vital Signs: Vital Signs: Last Vital Signs Temp 98.2 F 09/16/20 18:13 Pulse 81 09/16/20 18:13 Resp 16 09/16/20 18:13 BP 128/71 09/16/20 18:13 Pulse Ox 100 09/16/20 18:13 Body Mass Index 30.2 Appearance: Alert. Oriented X3. No acute distress. Eyes: PERRLA, No Nystagmus ENT: Pharynx normal. Oral Mucosa moist Neck: Normal inspection. Neck supple. CVS: Normal heart rate and rhythm. Pulses normal. Respiratory: No respiratory distress. Equal air entry bilateral, no wheezing/rales/rhonchi Abdomen: Soft and nontender. Bowel sounds are present, no mass palpable, no CVA tenderness Skin: Skin warm and dry. Normal skin color. Normal skin turgor. Extremities: No lower extremity edema. No calf tenderness Neuro: Oriented X 3. No motor deficit. No sensory deficit.No cerebellar signs , cranial nerves II-XII intact MDM - Recheck/Abnormal Lab/Rx MDM Narrative Medical decision making narrative: patient on calcium tablet asymptomatic for hypocalcemia secondary to hypoalbuminemia patient advised to continue her calcium tablets and follow up with patient monitor Lab Data Attestation: I reviewed the patient's lab results. Result diagrams: 09/16/20 21:19 09/16/20 21:19 Labs: Lab Results 09/16/20 09/16/20 09/16/20 Range/Units 20:56 21:19 21:19 WBC 6.7 (4.8-10.8) X10*3/uL RBC 3.65 L (4.20-5.50) X10*6/uL Hgb 10.1 L (12.0-16.0) g/dl Hct 32.2 L (37-47) % MCV 88.2 (80-98) fL MCH 27.7 (27.0-33.0) pg MCHC 31.4 (31.0-35.0) g/dl RDW 17.3 H (11.0-16.0) % Plt Count 279 D (160-400) X10*3/uL MPV 9.6 (9.4-12.3) fL Immature Gran % (Auto) 0.3 (0.0-0.4) % Neut % (Auto) 58.4 (45-73) % Lymph % (Auto) 24.1 (20-40) % Ashley % (Auto) 7.9 (2-11) % Eos % (Auto) 8.3 H (0-4) % Baso % (Auto) 1.0 (0-2) % Lymph # (Auto) 1.6 (1.2-4.9) X10*3/uL Ashley # (Auto) 0.5 (0.1-1.2) X10*3/uL Eos # (Auto) 0.6 H (0.0-0.4) X10*3/uL Baso # (Auto) 0.1 (0.0-0.2) X10*3/uL Abs Immat Gran (auto) 0.02 (0.00-0.03) X10*3/uL Absolute Neuts (auto) 3.9 (2.0-8.3) X10*3/uL Absolute Nucleated RBC 0.000 (0.0-0.012) X10*3/uL Nucleated RBC % (auto) 0.0 (0.0-0.2) /100WBC Sodium 138 (135-145) mmol/L Potassium 4.2 D (3.3-5.1) mmol/L Chloride 102 (96-108) mmol/L Carbon Dioxide 21 L (22-29) mmol/L Anion Gap 19 (12-20) BUN 36 H (9-16) mg/dL Creatinine 2.50 H (0.5-1.4) mg/dL Estim Creat Clear Calc 19.3 Estimated GFR 19 POC Glucose 149 H (60-115) mg/dL Random Glucose 158 H (60-115) mg/dL Calcium 5.0 L* D (8.4-10.2) mg/dL Total Bilirubin 0.3 (0.0-1.0) mg/dL Direct Bilirubin 0.2 (0.0-0.5) mg/dL AST 31 D (5-31) U/L ALT 15 (0-31) U/L Alkaline Phosphatase 90 (39-117) U/L Total Protein 8.3 H D (6.5-8.0) g/dL Albumin 3.5 D (3.5-5.0) g/dL Discharge Plan Discharge Clinical Impression: Hypocalcemia CKD (chronic kidney disease) Qualifiers: Chronic kidney disease stage: stage 4 (severe) Qualified Code(s): N18.4 - Chronic kidney disease, stage 4 (severe) Patient Disposition: Home, Self-Care Instructions: Chronic Kidney Disease (ED), Hypocalcemia (ED) Additional Instructions: take your calcium tablets as prescribed by your patient monitor and follow-up with him Prescriptions: No Action cilostazol 100 mg tablet 100 mg PO BID@1200,2100 RF: 0 atorvastatin 80 mg tablet 1 tab PO BEDTIME RF: 0 venlafaxine 37.5 mg capsule,extended release 24hr 1 cap PO QAM RF: 0 clopidogrel 75 mg tablet 1 tab PO QAM RF: 0 aspirin 81 mg tablet,delayed release (DR/EC) 1 tab PO QAM RF: 0 levothyroxine 25 mcg tablet 1 tab PO QAM RF: 0 ferrous sulfate 325 mg (65 mg iron) tablet 1 tab PO QAM RF: 0 montelukast 10 mg tablet 1 tab PO BEDTIME RF: 0 loratadine 10 mg tablet 1 tab PO QAM RF: 0 cholecalciferol (vitamin D3) [Vitamin D3] 25 mcg (1,000 unit) capsule 1 cap PO QAM RF: 0 insulin lispro [Humalog KwikPen Insulin] 100 unit/mL insulin pen 10 unit subcut TIDAC RF: 0 metoprolol tartrate 25 mg tablet 1 tab PO BID RF: 0 calcium carbonate-vitamin D3 [Calcium 500 + D] 500 mg(1,250mg) -400 unit tablet 1 tab PO BID Qty: 60 RF: 0 nicotine 7 mg/24 hr Patch 24 Hour 7 mg transdermal DAILY Qty: 14 RF: 0 amlodipine 5 mg Tablet 5 mg PO DAILY Qty: 30 RF: 0 calcium carbonate [Oyster Shell Calcium 500] 500 mg calcium (1,250 mg) Tablet 500 mg PO TIDWM Qty: 90 RF: 0 metoprolol tartrate 25 mg tablet 25 mg PO DAILY Qty: 30 RF: 0 Interventions: ED Discharge Assessment Last Done: 09/16/20 22:48 Discharge Date/Time: 09/16/20 22:53
[2020-09-16 21:00] LABS: Glucose, Whole Blood 149 mg/dL (60-115)
[2020-09-16 21:25] LABS: MANUAL DIFF FLAG NO
[2020-09-16 21:26] LABS: Basophils Absolute Auto 0.1 X10*3/uL (0.0-0.2); Eosinophils Absolute Auto 0.6 X10*3/uL (0.0-0.4); Eosinophils Percent Auto 8.3 % (0-4); Hematocrit 32.2 % (37-47); Hemoglobin 10.1 g/dl (12.0-16.0); Imm Gran Abs Auto 0.02 X10*3/uL (0.00-0.03); Imm Gran Pct Auto 0.3 % (0.0-0.4); Lymphocytes Absolute Auto 1.6 X10*3/uL (1.2-4.9); Lymphocytes Percent Auto 24.1 % (20-40); Mean Corpuscular HGB Conc 31.4 g/dl (31.0-35.0); Mean Corpuscular Hemoglobin 27.7 pg (27.0-33.0); Mean Corpuscular Volume 88.2 fL (80-98); Mean Platelet Volume 9.6 fL (9.4-12.3); Monocytes Absolute Auto 0.5 X10*3/uL (0.1-1.2); Monocytes Percent Auto 7.9 % (2-11); Neutrophils Absolute Auto 3.9 X10*3/uL (2.0-8.3); Neutrophils Percent Auto 58.4 % (45-73); Platelet Count 279 X10*3/uL (160-400); Red Blood Count 3.65 X10*6/uL (4.20-5.50); Red Cell Distribution Width 17.3 % (11.0-16.0); White Blood Count 6.7 X10*3/uL (4.8-10.8)
[2020-09-16 22:27] LABS: Anion Gap 19 (12-20); Blood Urea Nitrogen 36 mg/dL (9-16); Carbon Dioxide 21 mmol/L (22-29); Chloride 102 mmol/L (96-108); Creatinine Clr Calc Pharmacy 19.3; Estimated Glomerular Filt Rate 19; Glucose Random 158 mg/dL (60-115); Potassium 4.2 mmol/L (3.3-5.1); Sodium 138 mmol/L (135-145)
[2020-09-16 23:03] LABS: Alanine Aminotransferase 15 U/L (0-31); Albumin Level 3.5 g/dL (3.5-5.0); Alkaline Phosphatase 90 U/L (39-117); Aspartate Amino Transferase 31 U/L (5-31); Bilirubin Direct 0.2 mg/dL (0.0-0.5); Bilirubin Total 0.3 mg/dL (0.0-1.0); Total Protein 8.3 g/dL (6.5-8.0)
== END 2020-09-16 22:53 | disposition home or self-care (01) ==
PROVIDERS: Emergency Provider Internal Medicine
DX: E83.51 Hypocalcemia (principal); I12.9 Hypertensive chronic kidney disease with stage 1 through stage 4 chronic kidney disease, or unspecified chronic kidney disease; E11.22 Type 2 diabetes mellitus with diabetic chronic kidney disease; N18.4 Chronic kidney disease, stage 4 (severe); Z79.4 Long term (current) use of insulin; Z79.899 Other long term (current) drug therapy
CPT/HCPCS: 36415; 80048; 80076; 82947; 85025; 99283

== ENCOUNTER → 2020-09-22 12:48 | Outpatient (BNVA) | payer OTHER, SELFPAY | PROVIDERS: PCP Family Medicine; Visit Provider Surgery Vascular Surgery | DX: I73.9 Peripheral vascular disease, unspecified (principal); Z89.412 Acquired absence of left great toe | CPT/HCPCS: 99212 ==

== ENCOUNTER → 2020-10-04 12:56 | Outpatient (BNVA) | payer OTHER, SELFPAY | PROVIDERS: PCP Family Medicine; Visit Provider Surgery Vascular Surgery | DX: Z48.01 Encounter for change or removal of surgical wound dressing (principal); Z89.412 Acquired absence of left great toe | CPT/HCPCS: 99212 ==

== ENCOUNTER 2020-10-18 13:49 | Outpatient (RCR) | payer OTHER, SELFPAY ==
--- NOTE | ~2020-10-18 | XR_ITS ---
EXAMINATION: XR TOES, LEFT CLINICAL INFORMATION: Evaluate for 1st metatarsal head osteomyelitis. COMPARISON: Multiple priors, most recent left foot MRI dated 08/19/2020. TECHNIQUE: 3 views of the left toes were obtained. FINDINGS: Interval resection of the distal 1st metatarsal. No associated osseous erosion or periosteal reaction. Linear densities within the overlying soft tissue, related to packing. Atherosclerotic calcifications. No new osseous erosion. No acute fracture or dislocation. XR/XR toe LT min 2V IMPRESSION: Distal 1st metatarsal resection without evidence of osteomyelitis. Early osteomyelitis may be occult on plain radiographs and, if there is clinical concern, nuclear medicine bone scan or MRI without and with contrast could help further evaluate.
== END 2020-12-27 07:25 | disposition home or self-care (01) ==
LOC: HO.WCC 13:49
PROVIDERS: PCP Family Medicine; Visit Provider Physician Assistant
DX: Z09 Encounter for follow-up examination after completed treatment for conditions other than malignant neoplasm (principal); E11.51 Type 2 diabetes mellitus with diabetic peripheral angiopathy without gangrene; E11.40 Type 2 diabetes mellitus with diabetic neuropathy, unspecified; I10 Essential (primary) hypertension; I25.2 Old myocardial infarction; I25.10 Atherosclerotic heart disease of native coronary artery without angina pectoris; Z89.412 Acquired absence of left great toe
CPT/HCPCS: 11042; 73660; 99212

== ENCOUNTER → 2021-05-04 14:56 | Outpatient (BNVA) | payer OTHER, SELFPAY | PROVIDERS: PCP Family Medicine; Visit Provider Surgery Vascular Surgery | DX: I73.9 Peripheral vascular disease, unspecified (principal); L84 Corns and callosities; Z89.412 Acquired absence of left great toe | CPT/HCPCS: 99212 ==

== ENCOUNTER 2021-05-25 14:10 | Outpatient (REF) | payer OTHER, SELFPAY ==
--- NOTE | ~2021-05-25 | US_ITS ---
EXAMINATION: NONINVASIVE ASSESSMENT OF THE ARTERIES OF BOTH LOWER EXTREMITIES WITH ANKLE PRESSURE MEASUREMENTS, ANKLE BRACHIAL INDICES, PVR MEASUREMENTS AND BILATERAL LOWER EXTREMITY DUPLEX. CLINICAL INFORMATION: Peripheral vascular disease. TECHNIQUE: Ankle pressure measurements, ankle brachial indices and PVR tracings were obtained of the lower extremity arterial system bilaterally. In addition, duplex Doppler techniques with wave form analysis and measurement of velocities in the common femoral, profunda femoral, superficial femoral, popliteal and tibial arteries was performed. The study was performed only at rest. COMPARISON: None FINDINGS: NONINVASIVE ASSESSMENT OF THE ARTERIES OF BOTH LOWER EXTREMITIES WITH ABIs: RIGHT LEG: Right ankle-brachial index: 0.68 PVR (ankle): Abnormal, dampened. LEFT LEG: Ankle-brachial index: 1.28, likely artificially elevated as the posterior tibial artery pressure is greater than 200. PVR (ankle): Abnormal, dampened. BILATERAL LOWER EXTREMITY DUPLEX ULTRASOUND: RIGHT LEG: Common femoral artery: 147 cm/s, Diastolic flow reversal: No Profunda femoris artery: 92.6 cm/s, Diastolic flow reversal: No Superficial femoral artery (proximal): 187 cm/s, Diastolic flow reversal: No Superficial femoral artery (mid): 165 cm/s, Diastolic flow reversal: No Superficial femoral artery (distal): 161 cm/s, Diastolic flow reversal: No Popliteal artery: 79.7 cm/s, Diastolic flow reversal: No Posterior tibial artery: 42.2 cm/s, Diastolic flow reversal: No Peroneal artery: 35.5 cm/s, Diastolic flow reversal: No LEFT LEG: Common femoral artery: 175 cm/s, Diastolic flow reversal: No Profunda femoris artery: 118 cm/s, Diastolic flow reversal: No Superficial femoral artery (proximal): 190 cm/s, Diastolic flow reversal: No Stent (mid and distal SFA): [place] artery proximal to the stent: 175 cm/s, monophasic flow Proximal stent: 160 cm/s, biphasic flow Mid stent: 123 cm/s, biphasic flow Distal stent: 130 cm/s, biphasic flow [place] artery distal to the stent: 110 cm/s, biphasic flow Popliteal artery: 106 cm/s, Diastolic flow reversal: Yes Posterior tibial artery: 18.3 cm/s, Diastolic flow reversal: Yes Peroneal artery: 60.4 cm/s, Diastolic flow reversal: No US/US arterial duplex LE BI IMPRESSION: RIGHT LEG: BLANCHE 0.68 consistent with moderate arterial insufficiency. Monophasic waveforms are present throughout the right lower extremity suggesting inflow stenosis. No evidence of high-grade, hemodynamically significant outflow stenosis on duplex. LEFT LEG: BLANCHE 1.28 elevated due to a posterior tibial artery pressure greater than 200. A left mid/distal SFA stent is patent. Elevated velocity within the proximal SFA suggests a moderate hemodynamically significant stenosis. BLANCHE Reference: - >0.97-1.25 = normal - no significant arterial disease - 0.75-0.96 = mild peripheral arterial disease - 0.5-0.74 = moderate peripheral arterial disease - <0.50 = severe peripheral arterial disease
== END 2021-05-25 14:11 | disposition home or self-care (01) ==
LOC: HO.US 14:10
PROVIDERS: PCP Family Medicine; Visit Provider Physician Assistant
DX: E11.621 Type 2 diabetes mellitus with foot ulcer (principal); E11.51 Type 2 diabetes mellitus with diabetic peripheral angiopathy without gangrene; L97.523 Non-pressure chronic ulcer of other part of left foot with necrosis of muscle; T81.31XA Disruption of external operation (surgical) wound, not elsewhere classified, initial encounter; L08.9 Local infection of the skin and subcutaneous tissue, unspecified
CPT/HCPCS: 93925

== ENCOUNTER → 2021-05-30 13:44 | Outpatient (BNVA) | payer OTHER, SELFPAY | PROVIDERS: PCP Family Medicine; Visit Provider Surgery Vascular Surgery | DX: I73.9 Peripheral vascular disease, unspecified (principal) | CPT/HCPCS: 99212 ==

== ENCOUNTER 2021-06-15 09:44 | Outpatient (REF) | payer OTHER, SELFPAY ==
--- NOTE | ~2021-06-15 | MM_ITS ---
EXAMINATION: MM SCREENING DIGITAL BREAST TOMOSYNTHESIS, BILATERAL CLINICAL INFORMATION: Screening. Asymptomatic. The lifetime risk of breast cancer based on the Tyrer-Cuzick Model is 5.8%. COMPARISON: Mammography: October 17, 2015 and studies dating back to August 16, 2011 TECHNIQUE: Digital breast tomosynthesis is performed in both the craniocaudal and mediolateral oblique views along with computer-aided detection (CAD). Synthesized 2D images are generated from the tomosynthesis. FINDINGS: There are scattered areas of fibroglandular density (ACR BI-RADS breast composition Category b). There are no significant masses, abnormal calcifications, or other abnormalities. MM/MM tomosynthesis screening BI IMPRESSION: There are no significant changes from prior study. ASSESSMENT: BI-RADS 1: Negative RECOMMENDATION: Routine annual mammography screening. This patient's information was entered into a reminder system with a target due date for their next mammogram.
== END 2021-06-15 09:45 | disposition home or self-care (01) ==
LOC: HO.NEURO 09:44
PROVIDERS: Visit Provider Family Medicine
DX: Z12.31 Encounter for screening mammogram for malignant neoplasm of breast (principal)
CPT/HCPCS: 77063; 77067

== ENCOUNTER 2021-10-04 13:16 | Outpatient (REF) | payer OTHER, SELFPAY ==
[2021-10-04 14:16] LABS: Hematocrit 34.3 % (37.0-47.0); Hemoglobin 10.9 g/dl (12.0-16.0); Mean Corpuscular HGB Conc 31.8 g/dl (31.0-35.0); Mean Corpuscular Hemoglobin 28.2 pg (27.0-33.0); Mean Corpuscular Volume 88.9 fL (80.0-98.0); Mean Platelet Volume 10.6 fL (9.4-12.3); Platelet Count 203 X10*3/uL (160-400); Red Blood Count 3.86 X10*6/uL (4.20-5.50); Red Cell Distribution Width 14.8 % (11.0-16.0); White Blood Count 9.9 X10*3/uL (4.8-10.8)
[2021-10-04 14:54] LABS: Anion Gap 11 (12-20); Blood Urea Nitrogen 23 mg/dL (9-16); Calcium 6.5 mg/dL (8.4-10.2); Carbon Dioxide 26 mmol/L (22-29); Chloride 109 mmol/L (96-108); Estimated Glomerular Filt Rate 22; Glucose Random 118 mg/dL (60-115); Iron 27 mcg/dL (30-160); Percent Iron Saturation 11 % (15-50); Potassium 3.4 mmol/L (3.3-5.1); Sodium 143 mmol/L (135-145); Total Iron Binding Capacity 243 mcg/dL (228-428); Unsaturated Iron Binding 216 ug/dL
[2021-10-04 15:03] LABS: Free T4 (Free Thyroxine) 1.37 ng/dL (0.71-1.85)
== END 2021-10-04 13:17 | disposition home or self-care (01) ==
LOC: HO.LAB 13:16
PROVIDERS: Absent Provider Family Medicine; PCP Family Medicine; Visit Provider Internal Medicine Hypertension Specialist
DX: E11.22 Type 2 diabetes mellitus with diabetic chronic kidney disease (principal); N18.4 Chronic kidney disease, stage 4 (severe); E11.8 Type 2 diabetes mellitus with unspecified complications; E83.51 Hypocalcemia; E89.0 Postprocedural hypothyroidism
CPT/HCPCS: 36415; 80048; 83540; 84439; 84443; 85027

== ENCOUNTER 2021-12-18 13:48 | Outpatient (REF) | payer OTHER, SELFPAY ==
[2021-12-18 16:20] LABS: Hematocrit 37.3 % (37.0-47.0); Hemoglobin 11.4 g/dl (12.0-16.0); Mean Corpuscular HGB Conc 30.6 g/dl (31.0-35.0); Mean Corpuscular Hemoglobin 27.7 pg (27.0-33.0); Mean Corpuscular Volume 90.5 fL (80.0-98.0); Mean Platelet Volume 9.9 fL (9.4-12.3); Platelet Count 156 X10*3/uL (160-400); Red Blood Count 4.12 X10*6/uL (4.20-5.50); Red Cell Distribution Width 14.5 % (11.0-16.0); White Blood Count 7.4 X10*3/uL (4.8-10.8)
[2021-12-18 16:49] LABS: Anion Gap 17 (12-20); Blood Urea Nitrogen 21 mg/dL (9-16); Calcium 6.5 mg/dL (8.4-10.2); Carbon Dioxide 24 mmol/L (22-29); Chloride 107 mmol/L (96-108); Estimated Glomerular Filt Rate 24; Glucose Random 148 mg/dL (60-115); Potassium 3.5 mmol/L (3.3-5.1); Sodium 144 mmol/L (135-145)
== END 2021-12-18 13:49 | disposition home or self-care (01) ==
LOC: HO.US 13:48
PROVIDERS: Absent Provider Internal Medicine Hypertension Specialist; PCP Family Medicine; Visit Provider Surgery Vascular Surgery
DX: E11.51 Type 2 diabetes mellitus with diabetic peripheral angiopathy without gangrene (principal); E11.22 Type 2 diabetes mellitus with diabetic chronic kidney disease; N18.4 Chronic kidney disease, stage 4 (severe)
CPT/HCPCS: 36415; 80048; 85027; 93923; 93925

== ENCOUNTER → 2022-04-24 13:08 | Outpatient (BNVA) | payer OTHER, SELFPAY | PROVIDERS: PCP Family Medicine; Visit Provider Surgery Vascular Surgery | DX: I73.9 Peripheral vascular disease, unspecified (principal); M79.672 Pain in left foot; Z89.412 Acquired absence of left great toe | CPT/HCPCS: 99212 ==

== ENCOUNTER → 2022-05-03 10:58 | Outpatient (BNVA) | payer OTHER, SELFPAY | PROVIDERS: PCP Family Medicine; Visit Provider Internal Medicine Endocrinology, Diabetes & Metabolism | DX: E11.65 Type 2 diabetes mellitus with hyperglycemia (principal); E89.0 Postprocedural hypothyroidism; E89.2 Postprocedural hypoparathyroidism; Z85.850 Personal history of malignant neoplasm of thyroid | CPT/HCPCS: 82947; 83036; 99202 ==

== ENCOUNTER 2022-06-06 13:48 | Outpatient (REF) | payer OTHER, SELFPAY ==
--- NOTE | ~2022-06-06 | US_ITS ---
EXAMINATION: US SOFT TISSUE HEAD/NECK CLINICAL INFORMATION: Malignant neoplasm of thyroid gland. Patient with total thyroidectomy for multifocal papillary cancer. Please rule out recurrence or persistence. COMPARISON: None available. TECHNIQUE: Linear transducer grayscale and color Doppler examination of the thyroid bed and surrounding soft tissue. FINDINGS: There is no residual thyroid tissue seen in the thyroid bed. There are several lymph nodes seen. Right neck: Level Ib: Lymph node measures 2.4 x 0.7 x 1.3 cm. Has normal architecture. Level 2: Lymph node measures 0.7 x 0.7 x 0.4 cm. It has normal architecture. Level 3: It measures 0.7 x 0.3 x 0.5 cm. Has normal architecture. Level 3: It measures 1.0 x 0.3 x 0.7 cm. It has normal architecture. Level 4: It measures 2.3 x 0.7 x 0.6 cm. It has abnormal architecture. Level 4: Colloid measuring 0.9 x 0.4 x 0.5 cm It has normal architecture. Level 1a: Midline: Measures 0.5 x 0.3 x 0.4 cm. It has normal architecture. Left neck: Level Ib: 8 measures 1.4 x 0.6 x 1.0 cm There is abnormal architecture and a thick nodular cortex. Level 2: It measures 0.5 x 0.2 x 0.5 cm. It has abnormal architecture. Level 2: It measures 0.4 x 0.4 x 0.3 cm. It has normal architecture. Level 3: Measures 0.7 x 0.4 x 0.3 cm. There is normal echotexture. Level 4: It measures 1.9 x 0.6 x 0.6 cm. It has abnormal echotexture. US/US soft tiss head and/or neck IMPRESSION: Several bilateral neck lymph nodes. The largest right-sided lymph node measuring 2.3 cm and has normal abnormal architecture. Level Ib: 1.4 cm and level 4 lymph node have abnormal architectures. Recommend biopsy of these lymph nodes.
== END 2022-06-06 13:49 | disposition home or self-care (01) ==
LOC: HO.US 13:48
PROVIDERS: Visit Provider Internal Medicine Endocrinology, Diabetes & Metabolism
DX: C73 Malignant neoplasm of thyroid gland (principal)
CPT/HCPCS: 76536

== ENCOUNTER 2022-06-06 16:29 | Emergency (ER) | payer OTHER, SELFPAY ==
--- NOTE | ~2022-06-06 | CT_ITS ---
EXAMINATION: CT cervical spine wo IV con, CT head/brain wo IV con INDICATION INFORMATION: Reason for Exam neck pain sp fall COMPARISON: CT head without contrast 11/22/2020 TECHNIQUE: Separate noncontrast CT examinations of the head and cervical spine were performed. Coronal and sagittal images were created for each examination at the technologist workstation. This CT examination was performed using dose optimization techniques as appropriate, variously including the following: *Automated exposure control *Adjustment of mA and/or kV according to patient size (this includes techniques or standardized protocols for targeted exams where dose is matched to indication/reason for exam; i.e. extremities or head) *Use of iterative reconstruction technique DLP: 990 FINDINGS: Head: Right parietal scalp contusion and laceration. No underlying calvarial fracture or other acute osseous abnormality. Chronic left lamina papyracea fracture. The left sphenoid sinus is completely opacified with hyperostosis of the sinus white, compatible with sequela of chronic sinusitis. Mild left maxillary sinus mucosal thickening. There is a small osteoma within a left sukhjinder bullosa. There is small volume subarachnoid hemorrhage along the right anterior inferior frontal convexity. No other acute intracranial hemorrhage. There is no evidence of acute territorial infarction. No abnormal mass effect or midline shift is seen. Thakur to white matter differentiation is well preserved. No extra-axial fluid collections are identified. No hydrocephalus. No significant volume loss. Patchy periventricular and deep white matter hypoattenuation is consistent with mild small vessel ischemic changes. Cervical spine: There is no evidence of acute cervical spine fracture. Vertebral bodies remain normal in height. There is straightening of usual cervical lordosis. Mild multilevel cervical spondylosis. No pre- or paravertebral soft tissue abnormality is identified. Visualized portions of the lung apices are unremarkable. Status post thyroidectomy. CT/CT cervical spine wo IV con IMPRESSION: 1. Small volume acute subarachnoid hemorrhage along the anterior inferior right frontal convexity. No other acute intracranial hemorrhage. 2. Right parietal scalp contusion and laceration. No underlying calvarial fracture. 3. No cervical spine fracture or traumatic malalignment. Above impression was communicated to MARYELLEN Ribera on 06/06/2022 at 6:49 PM
--- NOTE | ~2022-06-06 | XR_ITS ---
EXAMINATION: XR CHEST CLINICAL INFORMATION: Fall onto chest COMPARISON: 09/02/2020 TECHNIQUE: Frontal view of the chest was obtained. FINDINGS: There is mild cardiac enlargement. There is mild interstitial prominence, unchanged from prior. No pleural effusions or consolidations are seen. No lung masses. The bony thorax is unremarkable. XR/XR chest 1V IMPRESSION: No acute intrathoracic disease.
[2022-06-06 16:50] VITALS: BP 152/74; BP 156/92; PULSE 73; PULSE 74; RESP 17; TEMP 37.4; O2SAT 100; O2SAT 96; BMI 28.3
--- OUTSIDE RECORDS SUMMARY | 2022-06-06 17:43 | XMS_ITS ---
:1955 Author Care Team Providers Name Role Phone [facility] Referring Provider [phone] Allergies None recorded. Medications None recorded. Problems None recorded. Procedures None recorded. Results Lab Results None recorded. Past Encounters Encounter Date Diagnosis Provider 11/01/2021 Kermit Tomas MD: [address] [place] [id number], Ph. Social History None recorded. Vaccine List None recorded. Plan of Care Reminders Provider Appointments None recorded. ? ? Lab None recorded. ? ? Referral None recorded. ? ? Procedures None recorded. ? ? Surgeries None recorded. ? ? Imaging None recorded. ? ? Vitals Blood Pressure 137/65 mm[Hg]
[2022-06-06 17:55] LABS: MANUAL DIFF FLAG NO
--- NOTE | 2022-06-06 17:55 | MHC.EDTECH ---
POC 116
[2022-06-06 17:56] LABS: Basophils Absolute Auto 0.1 X10*3/uL (0.0-0.2); Basophils Percent Auto 0.9 % (0-2); Eosinophils Absolute Auto 0.4 X10*3/uL (0.0-0.4); Eosinophils Percent Auto 3.8 % (0-4); Hematocrit 32.6 % (37.0-47.0); Hemoglobin 10.6 g/dl (12.0-16.0); Imm Gran Abs Auto 0.04 X10*3/uL (0.00-0.03); Imm Gran Pct Auto 0.4 % (0.0-0.4); Lymphocytes Absolute Auto 1.2 X10*3/uL (1.2-4.9); Lymphocytes Percent Auto 12.7 % (20-40); Mean Corpuscular HGB Conc 32.5 g/dl (31.0-35.0); Mean Corpuscular Hemoglobin 28.3 pg (27.0-33.0); Mean Corpuscular Volume 86.9 fL (80.0-98.0); Mean Platelet Volume 9.4 fL (9.4-12.3); Monocytes Absolute Auto 0.7 X10*3/uL (0.1-1.2); Monocytes Percent Auto 7.4 % (2-11); Neutrophils Absolute Auto 6.9 x10*3/uL (2.0-8.3); Neutrophils Percent Auto 74.8 % (45-73); Platelet Count 178 X10*3/uL (160-400); Red Blood Count 3.75 X10*6/uL (4.20-5.50); Red Cell Distribution Width 14.6 % (11.0-16.0); White Blood Count 9.2 X10*3/uL (4.8-10.8)
--- NOTE | 2022-06-06 17:57 | ECG_ITS ---
Test Reason : FALL Blood Pressure : / mmHG Vent. Rate : 072 BPM Atrial Rate : 072 BPM P-R Int : 158 ms QRS Dur : 082 ms QT Int : 526 ms P-R-T Axes : 021 047 110 degrees QTc Int : 575 ms Normal sinus rhythm Nonspecific ST and T wave abnormality Abnormal ECG When compared with ECG of 26-AUG-2020 15:07, Non-specific change in ST segment in Lateral leads QT has lengthened Referred By: Leonardo Pennington Electronically Signed By:ANTOINETTE ARNETT MD
--- NOTE | 2022-06-06 18:01 | ED_ITS ---
HPI - Fall General Chief Complaint: Fall Stated Complaint: mechanical fall + headstrike Time Seen by Provider: 06/06/22 17:55 Source: patient Mode of arrival: ambulatory Limitations: other (Poor historian) History of Present Illness HPI Narrative: 66-year-old female history of thyroid cancer, hyperparathyroidism, diabetes, paroxysmal AFib on Plavix & ASA, CKD, PAD presenting to the emergency department for evaluation of fall with head strike with brief loss of consciousness. Patient tells me she was on the bus prior to arrival, she stood up prior to the bus stopping, she states she fell backwards hitting her head, reports brief loss of consciousness, tells me her head is hurting at this time diffusely. Is accompanied by family who states brief loss of consciousness was witnessed. Patient was able to get up from the ground and walk to the ambulance stretcher. No preceding symptoms such as chest pain, shortness of breath or dizziness. Denies chest pain, shortness of breath, nausea, vomiting, vision changes, dizziness, weakness. Arrived in cervical collar w/ head wrap w/ bleeding laceration to right side of scalp GCS of 15. NIH stroke scale 0. Related Data Home Medications Medication Instructions Recorded Confirmed aspirin 81 mg tablet,delayed 1 tab PO QAM 05/17/20 05/03/22 release atorvastatin 80 mg tablet 1 tab PO BEDTIME 05/17/20 05/03/22 cholecalciferol (vitamin D3) 25 1 cap PO QAM 05/17/20 05/03/22 mcg (1,000 unit) capsule (Vitamin D3) cilostazol 100 mg tablet 100 mg PO BID@1200,2100 05/17/20 05/03/22 clopidogrel 75 mg tablet 1 tab PO QAM 05/17/20 05/03/22 ferrous sulfate 325 mg (65 mg 1 tab PO QAM 05/17/20 05/03/22 iron) tablet insulin lispro 100 unit/mL 10 unit subcut TIDAC 05/17/20 05/03/22 subcutaneous pen (Humalog KwikPen (U-100) Insulin) levothyroxine 25 mcg tablet 1 tab PO QAM 05/17/20 05/03/22 loratadine 10 mg tablet 1 tab PO QAM 05/17/20 05/03/22 metoprolol tartrate 25 mg tablet 1 tab PO BID 05/17/20 05/03/22 montelukast 10 mg tablet 1 tab PO BEDTIME 05/17/20 05/03/22 venlafaxine 37.5 mg 1 cap PO QAM 05/17/20 05/03/22 capsule,extended release 24 hr blood sugar diagnostic (FreeStyle #10 ea 05/30/21 05/03/22 Lite Strips) calcitriol 0.25 mcg capsule 0.25 mcg PO DAILY 05/30/21 05/03/22 calcium carbonate 600 mg-vitamin 1 tab PO BID 05/30/21 05/03/22 D3 20 mcg (800 unit) tablet fluticasone propionate 110 2 puff inhalation BID 05/30/21 05/03/22 mcg/actuation HFA aerosol inhaler (Flovent HFA) gabapentin 100 mg capsule 200 mg PO BID 05/30/21 05/03/22 insulin aspart U-100 100 unit/mL 8 unit subcut DIRECTED 05/30/21 05/03/22 (3 mL) subcutaneous pen (Novolog FlexPen U-100 Insulin aspart) lancets 33 gauge (TRUEplus Lancets) #100 ea 05/30/21 05/03/22 potassium chloride 10 mEq 10 meq PO BID 05/30/21 05/03/22 tablet,extended release tramadol 50 mg tablet 50 mg PO BID PRN 05/30/21 05/03/22 calcium carbonate 200 mg calcium 0 mg PO 04/24/22 05/03/22 (500 mg) chewable tablet (Calcium Antacid) cetirizine 5 mg tablet 5 mg PO DAILY 04/24/22 05/03/22 cholecalciferol (vitamin D3) 50 50 mcg PO DAILY 04/24/22 05/03/22 mcg (2,000 unit) tablet dapagliflozin 5 mg tablet (Farxiga) 5 mg PO DAILY 04/24/22 05/03/22 gabapentin 400 mg capsule 400 mg PO DAILY 04/24/22 05/03/22 levothyroxine 75 mcg tablet 75 mcg PO DAILY 04/24/22 05/03/22 levothyroxine 88 mcg tablet 88 mcg PO DAILY 04/24/22 05/03/22 linagliptin 5 mg tablet (Tradjenta) 5 mg PO DAILY 04/24/22 05/03/22 potassium chloride 20 mEq 20 meq PO DAILY 02/07/23 02/16/23 tablet,extended release(part/cryst) sertraline 25 mg tablet 0 mg PO 04/24/22 05/03/22 pen needle, diabetic 32 gauge x #50 ea 05/03/22 05/03/22 (Pentips) Previous Rx's Medication Instructions Recorded calcium carbonate 500 mg-vitamin 1 tab PO BID #60 tabs 05/20/20 D3 10 mcg (400 unit) tablet (Calcium 500 + D) amlodipine 5 mg tablet 5 mg PO DAILY #30 tabs 09/06/20 calcium carbonate 500 mg calcium 500 mg PO TIDWM #90 tabs 09/06/20 (1,250 mg) tablet (Oyster Shell Calcium 500) metoprolol tartrate 25 mg tablet 25 mg PO DAILY #30 tabs 09/06/20 nicotine 7 mg/24 hr daily 7 mg transdermal DAILY #14 ea 09/06/20 transdermal patch cephalexin 500 mg capsule 500 mg PO BID #20 caps 09/22/20 oxycodone-acetaminophen 5 mg-325 1 tab PO Q6H PRN pain #10 tabs 09/22/20 mg tablet (Percocet) Allergies Allergy/AdvReac Type Severity Reaction Status Date / Time ALLYSSA Inhibitors Allergy Mild COUGH Verified 04/24/22 13:20 [ALLYSSA INHIBITORS] cilostazol [CILOSTAZOL] Allergy Mild COUGH Verified 04/24/22 13:20 Review of Systems Review of Systems: Constitutional : No Weight loss, No Fever, No Chills, No Fatigue, No Malaise ENT/Mouth : No sore throat, No Rhinorrhea Eyes: No Eye Pain, No Swelling, No Redness Cardiovascular : No Chest Pain, No SOB, No Dyspnea on Exertion, No Orthopnea, No Edema, No Palpitations Respiratory : No Cough, No Sputum, No Wheezing Gastrointestinal : No Nausea, No Vomiting, No Diarrhea, No Constipation, No abdominal Pain, No Hematochezia, No Melena Genitourinary : No Dysuria, No Urinary Frequency, No Hematuria, Musculoskeletal : No joint pain, No Myalgias, No Joint Swelling Skin : No Skin Lesions, No rash Neuro : No Weakness, No Numbness, No Dizziness, + Headache Psych : No Anxiety/Panic, No Depression All other systems reviewed and are negative Yes all other systems are reviewed and are negative PMFSH Past Medical History Attestation statement: The following information was validated with the patient. Source: old records reviewed and nursing notes reviewed Medical History Anemia ARDS (adult respiratory distress syndrome) Asthma-COPD overlap syndrome Diabetes HTN (hypertension) Hypercholesteremia 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 removal of thyroid gland Hypothyroidism Hypothyroidism associated with surgical procedure Neuropathy Pneumonitis Thyroid cancer Uncontrolled type 2 diabetes mellitus with hyperglycemia Surgical History Left great toe amputee (09/02/20) Family History Family History Mother Hypertension Diabetes Father AA (alcohol abuse) Social History Social History Household Members: Other Housing: Apartment Do you presently have 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 or other home services: Yes Alcohol intake: never Patient Tobacco Use Status: Former Tobacco user Tobacco use type: Cigarette Years Smoked: 45 Advance Directives: Yes Advance Directives on File: Yes Advance Directives Date on File: 09/13/20 service: No Current occupational status: disabled Physical Exam Vital Signs: Vital Signs: Last Vital Signs Temp 99.3 F 06/06/22 16:50 Pulse 73 06/06/22 16:50 Resp 17 06/06/22 16:50 BP 152/74 H 06/06/22 16:50 Pulse Ox 96 06/06/22 16:50 O2 Del Method 06/06/22 16:50 BMI result Body Mass Index 28.3 vss Appearance: Alert.? Oriented X3.? No acute distress.? Head: Normocephalic, atraumatic, no step-offs or deformities + small hematoma to right side of head with small 2 cm laceration overlying Eyes: Pupils equal, round and reactive to light.? Neck: Normal inspection.? Neck supple.? CVS: Normal heart rate and rhythm.? Pulses normal.? Respiratory: No respiratory distress.? Breath sounds normal.? Abdomen: Soft and nontender.? Skin: Skin warm and dry.? Normal skin color.? Normal skin turgor.? Extremities: No lower extremity edema.? No calf ttp. Global weakness Neuro: Oriented X 3.? No motor deficit.? No sensory deficit. CN 2-12 intact Course Reevaluation(s) Reevaluation #1: 4 [place] applied to scalp, tolerated procedure well (verbal consent obtained prior to procedure), Boostrix ordered . Received a call from [facility] the patient has a subarachnoid hemorrhage. Patient and family member made aware of the situation. Laceration repaired with radha. Call out to [facility] trauma for transfer. Time: 18:52 Reevaluation #2: CBC with slight normocytic anemia that appears to be around patient's baseline. Chemistry with potassium of 3.2, IV potassium will be given. Patient is noted to have an MARY KATE slightly deviating from her baseline, fluids ordered. Calcium 5.5 patient is noted to have hypocalcemia at baseline however lower than her usual. Troponin 21.1, EKG nonischemic. Time: 18:54 Reevaluation #3: Spoke to [facility] trauma accepted, recommends giving platelets, platelets ordered at this time. Booking transportation at this time also. Time: 19:01 Additional Reevaluation(s): Spoke to blood bank no platelets in house, they would have to get them from [facility], therefore patient did not recieve platelets at this facility. Medications Administered Generic Name Dose Route Start Last Admin Trade Name Freq PRN Reason Stop Dose Admin Sodium Chloride 1,000 mls @ 999 mls/hr 06/06/22 18:30 06/06/22 18:42 Ns IV 06/06/22 19:30 999 mls/hr .Q1H1M JOEL Administration Medical Decision Making Medical Decision Making [facility] Narrative: 1807 66 year old female presents sp fall on bus w/ headstrike and brief loc. Reporting diffuse headache. Sustained a small laceration to right side of head. On Plavix and ASA PE with small laceration to right side of head. Global weakness.. Neuro nonfocal. NIHSS-0, GCS-15 Will rule out intracranial hemorrhage, traumatic injuries to head trauma electrolyte abnormalities, UTI. Although likely mechanical fall. Plan at this time labs, imaging, urine, troponin, EKG Differential Diagnosis Differential Diagnoses: The differential diagnosis associated with the presentation includes Will rule out intracranial hemorrhage, traumatic injuries to head trauma electrolyte abnormalities, UTI. Although likely mechanical fall. Admission/Observation Consideration of admission/observation: Escalation of care including admission/observation considered Not indicated Consult Healthcare Provider Management of the patient was discussed with: Fingernail Technician ([facility] ) Lab Data MDM Lab Attestation statement: I reviewed the patient's lab results. 06/06/22 17:49 06/06/22 17:49 Labs: Lab Results 06/06/22 06/06/22 06/06/22 Range/Units 17:49 17:49 18:13 WBC 9.2 (4.8-10.8) X10*3/uL RBC 3.75 L (4.20-5.50) X10*6/uL Hgb 10.6 L (12.0-16.0) g/dl Hct 32.6 L (37.0-47.0) % MCV 86.9 (80.0-98.0) fL MCH 28.3 (27.0-33.0) pg MCHC 32.5 (31.0-35.0) g/dl RDW 14.6 (11.0-16.0) % Plt Count 178 (160-400) X10*3/uL MPV 9.4 (9.4-12.3) fL Immature Gran % (Auto) 0.4 (0.0-0.4) % Neut % (Auto) 74.8 H (45-73) % Lymph % (Auto) 12.7 L (20-40) % [place] % (Auto) 7.4 (2-11) % Eos % (Auto) 3.8 (0-4) % Baso % (Auto) 0.9 (0-2) % Lymph # (Auto) 1.2 (1.2-4.9) X10*3/uL [place] # (Auto) 0.7 (0.1-1.2) X10*3/uL Eos # (Auto) 0.4 (0.0-0.4) X10*3/uL Baso # (Auto) 0.1 (0.0-0.2) X10*3/uL Abs Immat Gran (auto) 0.04 H (0.00-0.03) X10*3/uL Absolute Neuts (auto) 6.9 (2.0-8.3) x10*3/uL Absolute Nucleated RBC 0.000 (0.0-0.012) X10*3/uL Nucleated RBC % (auto) 0.0 (0.0-0.2) /100WBC Sodium 143 (135-145) mmol/L Potassium 3.2 L (3.3-5.1) mmol/L Chloride 110 H (96-108) mmol/L Carbon Dioxide 19 L (22-29) mmol/L Anion Gap 17 (12-20) BUN 27 H (9-16) mg/dL Creatinine 2.62 H (0.5-1.4) mg/dL Estim Creat Clear Calc 17.6 Estimated GFR 18 Random Glucose 120 H (60-115) mg/dL Calcium 5.5 L* D (8.4-10.2) mg/dL Total Bilirubin 0.3 (0.0-1.0) mg/dL AST 23 (5-31) U/L ALT 11 (0-31) U/L Alkaline Phosphatase 102 (39-117) U/L Troponin I High Sens 21.1 H (<3.5-17.0) ng/L Total Protein 7.0 (6.5-8.0) g/dL Albumin 3.0 L (3.5-5.0) g/dL Core Measures AMI core measures followed: Yes Measure exclusions: not indicated Critical Care Time Critical Care Time Critical Care Time: Yes Total Critical Care Time: 35 Attestation: I attest to this time spent taking care of the patient, obtaining history, physical, reviewing labs, imaging, speaking to my attending, speaking to specialist. Discharge Plan Discharge Clinical Impression: Subarachnoid hemorrhage, Fall, Headache, MARY KATE (acute kidney injury), Hypocalcemia, Hypokalemia, Laceration of scalp Patient Disposition: [facility] Transfer Details: [facility] Emergency Department trauma transfer to Dr. Arnett Prescriptions: No Action cilostazol 100 mg tablet 100 mg PO BID@1200,2100 atorvastatin 80 mg tablet 1 tab PO BEDTIME venlafaxine 37.5 mg capsule,extended release 24hr 1 cap PO QAM clopidogrel 75 mg tablet 1 tab PO QAM aspirin 81 mg tablet,delayed release (DR/EC) 1 tab PO QAM levothyroxine 25 mcg tablet 1 tab PO QAM ferrous sulfate 325 mg (65 mg iron) tablet 1 tab PO QAM montelukast 10 mg tablet 1 tab PO BEDTIME loratadine 10 mg tablet 1 tab PO QAM cholecalciferol (vitamin D3) [Vitamin D3] 25 mcg (1,000 unit) capsule 1 cap PO QAM insulin lispro [Humalog KwikPen Insulin] 100 unit/mL insulin pen 10 unit subcut TIDAC metoprolol tartrate 25 mg tablet 1 tab PO BID calcium carbonate-vitamin D3 [Calcium 500 + D] 500 mg(1,250mg) -400 unit tablet 1 tab PO BID Qty: 60 0RF nicotine 7 mg/24 hr Patch 24 Hour 7 mg transdermal DAILY Qty: 14 0RF amlodipine 5 mg Tablet 5 mg PO DAILY Qty: 30 0RF Protocol: Hold for SBP< HOLD for SBP < : 90 calcium carbonate [Oyster Shell Calcium 500] 500 mg calcium (1,250 mg) Tablet 500 mg PO TIDWM Qty: 90 0RF metoprolol tartrate 25 mg tablet 25 mg PO DAILY Qty: 30 0RF cephalexin 500 mg capsule 500 mg PO BID Qty: 20 0RF oxycodone-acetaminophen [Percocet] 5-325 mg tablet 1 tab PO Q6H PRN (Reason: pain) Qty: 10 0RF tramadol 50 mg tablet 50 mg PO BID PRN calcium carbonate-vitamin D3 600 mg-20 mcg (800 unit) tablet 1 tab PO BID calcitriol 0.25 mcg capsule 0.25 mcg PO DAILY potassium chloride 10 mEq tablet extended release 10 meq PO BID (DME) lancets [TRUEplus Lancets] 33 gauge misc See Rx Instructions topical .MEDSUPPLY Qty: 100 Rx Instructions: As directed insulin aspart U-100 [Novolog FlexPen U-100 Insulin] 100 unit/mL (3 mL) insulin pen 8 unit subcut DIRECTED Flovent HFA 110 mcg/actuation HFA aerosol inhaler 2 puff inhalation BID gabapentin 100 mg capsule 200 mg PO BID (DME) FreeStyle Lite Strips Strip See Rx Instructions Not Applicable .MEDSUPPLY Qty: 10 Rx Instructions: As directed (DME) pen needle, diabetic [Pentips] 32 gauge x 5/32 needle See Rx Instructions .ROUTE QID Qty: 50 Rx Instructions: As directed once a day Farxiga 5 mg tablet 5 mg PO DAILY Tradjenta 5 mg tablet 5 mg PO DAILY cholecalciferol (vitamin D3) 50 mcg (2,000 unit) tablet 50 mcg PO DAILY sertraline 25 mg tablet 0 mg PO calcium carbonate [Calcium Antacid] 200 mg calcium (500 mg) tablet,chewable 0 mg PO potassium chloride 20 mEq tablet,ER particles/crystals 20 meq PO DAILY levothyroxine 88 mcg tablet 88 mcg PO DAILY levothyroxine 75 mcg tablet 75 mcg PO DAILY gabapentin 400 mg capsule 400 mg PO DAILY cetirizine 5 mg tablet 5 mg PO DAILY
[2022-06-06 18:20] LABS: Alanine Aminotransferase 11 U/L (0-31); Alkaline Phosphatase 102 U/L (39-117); Anion Gap 17 (12-20); Aspartate Amino Transferase 23 U/L (5-31); Bilirubin Total 0.3 mg/dL (0.0-1.0); Blood Urea Nitrogen 27 mg/dL (9-16); Calcium 5.5 mg/dL (8.4-10.2); Carbon Dioxide 19 mmol/L (22-29); Chloride 110 mmol/L (96-108); Creatinine Clr Calc Pharmacy 17.6; Estimated Glomerular Filt Rate 18; Glucose Random 120 mg/dL (60-115); Potassium 3.2 mmol/L (3.3-5.1); Sodium 143 mmol/L (135-145)
[2022-06-06 18:41] LABS: Troponin-I High Sensitivity 21.1 ng/L (<3.5-17.0)
[2022-06-06] MEDS: 0.9 % Sodium Chloride 1,000 ML 999 ML IV (18:42)
--- NOTE | 2022-06-06 18:53 | MHC.EDTECH ---
provider approached about transferring the pt to [facility] fror a subarachnoid hemorrhage. [facility] was reached awaiting call back
[2022-06-06 19:13] LABS: COVID-19 Test Negative (Negative); IDNOW Serial# BCCEAD1C
--- NOTE | 2022-06-06 19:14 | MHC.EDTECH ---
Received a call from [facility] at 190 accepted patient to the ED. Jayde called for a stat transfer at 1901 ETA 30mins. RN aware
[2022-06-06] MEDS: Potassium Chloride/H20 20 MEQ/100 ML PIGGYBACK 100 MEQ IV (19:17)
[2022-06-06 19:21] LABS: INTERNATIONAL NORM RATIO 1.1 (0.9-1.1); Prothrombin Time 12.4 SEC (10.0-13.1)
[2022-06-06] MEDS: Diphth,Pertus(ACell),Tet Adult 0.5 ML SYRINGE IM (19:23)
--- NOTE | 2022-06-06 20:02 | PC.NURSE ---
this rn assumed care of pt @ 1900. pt medicated according to may. ems report provided. nurse to nurse report provider to [facility] rn hcing. pt placed on computer typesetter keyliner.
[2022-06-06 20:40] LABS: Glucose, Whole Blood 117 mg/dL (60-115)
== END 2022-06-06 20:04 | disposition short-term general hospital (02) ==
PROVIDERS: Physician Assistant; Emergency Provider Internal Medicine
DX: S06.6X9A Traumatic subarachnoid hemorrhage with loss of consciousness of unspecified duration, initial encounter (principal); S01.01XA Laceration without foreign body of scalp, initial encounter; W17.89XA Other fall from one level to another, initial encounter; R51.9 Headache, unspecified; N17.9 Acute kidney failure, unspecified; E83.51 Hypocalcemia; E87.6 Hypokalemia; D64.9 Anemia, unspecified; Z20.822 Contact with and (suspected) exposure to COVID-19; E11.9 Type 2 diabetes mellitus without complications; I10 Essential (primary) hypertension; E78.00 Pure hypercholesterolemia, unspecified; Y93.89 Activity, other specified; Y92.811 Bus as the place of occurrence of the external cause; Y99.9 Unspecified external cause status; Z79.82 Long term (current) use of aspirin; Z79.02 Long term (current) use of antithrombotics/antiplatelets; Z79.4 Long term (current) use of insulin; Z79.899 Other long term (current) drug therapy; Z79.01 Long term (current) use of anticoagulants
CPT/HCPCS: 12001; 36415; 70450; 71045; 72125; 80053; 82947; 84484; 85025; 85610; 86850; 86900; 86901; 87635; 90471; 90715; 93005; 96361; 96365; 96374; 96375; 99285

== ENCOUNTER 2022-06-14 13:18 | Emergency (ER) | payer OTHER, SELFPAY ==
--- NOTE | 2022-06-14 13:36 | ED_ITS ---
HPI - Skin/Abscess/Foreign Bdy General Stated complaint: remove stiches Time Seen by Provider: 06/14/22 13:35 Source: patient Mode of arrival: ambulatory Limitations: no limitations History of Present Illness HPI narrative: 66-year-old female presents for removal of 4 radha to scalp. Patient had them placed on 06/06/2022 and was advised to come in to have them removed. No medical complaints at this time. Related Data Home Medications Medication Instructions Recorded Confirmed aspirin 81 mg tablet,delayed 1 tab PO QAM 05/17/20 05/03/22 release atorvastatin 80 mg tablet 1 tab PO BEDTIME 05/17/20 05/03/22 cholecalciferol (vitamin D3) 25 1 cap PO QAM 05/17/20 05/03/22 mcg (1,000 unit) capsule (Vitamin D3) cilostazol 100 mg tablet 100 mg PO BID@1200,2100 05/17/20 05/03/22 clopidogrel 75 mg tablet 1 tab PO QAM 05/17/20 05/03/22 ferrous sulfate 325 mg (65 mg 1 tab PO QAM 05/17/20 05/03/22 iron) tablet insulin lispro 100 unit/mL 10 unit subcut TIDAC 05/17/20 05/03/22 subcutaneous pen (Humalog KwikPen (U-100) Insulin) levothyroxine 25 mcg tablet 1 tab PO QAM 05/17/20 05/03/22 loratadine 10 mg tablet 1 tab PO QAM 05/17/20 05/03/22 metoprolol tartrate 25 mg tablet 1 tab PO BID 05/17/20 05/03/22 montelukast 10 mg tablet 1 tab PO BEDTIME 05/17/20 05/03/22 venlafaxine 37.5 mg 1 cap PO QAM 05/17/20 05/03/22 capsule,extended release 24 hr blood sugar diagnostic (FreeStyle #10 ea 05/30/21 05/03/22 Lite Strips) calcitriol 0.25 mcg capsule 0.25 mcg PO DAILY 05/30/21 05/03/22 calcium carbonate 600 mg-vitamin 1 tab PO BID 05/30/21 05/03/22 D3 20 mcg (800 unit) tablet fluticasone propionate 110 2 puff inhalation BID 05/30/21 05/03/22 mcg/actuation HFA aerosol inhaler (Flovent HFA) gabapentin 100 mg capsule 200 mg PO BID 05/30/21 05/03/22 insulin aspart U-100 100 unit/mL 8 unit subcut DIRECTED 05/30/21 05/03/22 (3 mL) subcutaneous pen (Novolog FlexPen U-100 Insulin aspart) lancets 33 gauge (TRUEplus Lancets) #100 ea 05/30/21 05/03/22 potassium chloride 10 mEq 10 meq PO BID 05/30/21 05/03/22 tablet,extended release tramadol 50 mg tablet 50 mg PO BID PRN 05/30/21 05/03/22 calcium carbonate 200 mg calcium 0 mg PO 04/24/22 05/03/22 (500 mg) chewable tablet (Calcium Antacid) cetirizine 5 mg tablet 5 mg PO DAILY 04/24/22 05/03/22 cholecalciferol (vitamin D3) 50 50 mcg PO DAILY 04/24/22 05/03/22 mcg (2,000 unit) tablet dapagliflozin 5 mg tablet (Farxiga) 5 mg PO DAILY 04/24/22 05/03/22 gabapentin 400 mg capsule 400 mg PO DAILY 04/24/22 05/03/22 levothyroxine 75 mcg tablet 75 mcg PO DAILY 04/24/22 05/03/22 levothyroxine 88 mcg tablet 88 mcg PO DAILY 04/24/22 05/03/22 linagliptin 5 mg tablet (Tradjenta) 5 mg PO DAILY 04/24/22 05/03/22 potassium chloride 20 mEq 20 meq PO DAILY 04/24/22 05/03/22 tablet,extended release(part/cryst) sertraline 25 mg tablet 0 mg PO 04/24/22 05/03/22 pen needle, diabetic 32 gauge x #50 ea 05/03/22 05/03/22 5/32 (Pentips) Previous Rx's Medication Instructions Recorded calcium carbonate 500 mg-vitamin 1 tab PO BID #60 tabs 05/20/20 D3 10 mcg (400 unit) tablet (Calcium 500 + D) amlodipine 5 mg tablet 5 mg PO DAILY #30 tabs 09/06/20 calcium carbonate 500 mg calcium 500 mg PO TIDWM #90 tabs 09/06/20 (1,250 mg) tablet (Oyster Shell Calcium 500) metoprolol tartrate 25 mg tablet 25 mg PO DAILY #30 tabs 09/06/20 nicotine 7 mg/24 hr daily 7 mg transdermal DAILY #14 ea 09/06/20 transdermal patch cephalexin 500 mg capsule 500 mg PO BID #20 caps 09/22/20 oxycodone-acetaminophen 5 mg-325 1 tab PO Q6H PRN pain #10 tabs 09/22/20 mg tablet (Percocet) Allergies Allergy/AdvReac Type Severity Reaction Status Date / Time ALLYSSA Inhibitors Allergy Mild COUGH Verified 06/14/22 13:40 [ALLYSSA INHIBITORS] cilostazol [CILOSTAZOL] Allergy Mild COUGH Verified 06/14/22 13:40 Review of Systems Review of Systems: Constitutional : No Weight loss, No Fever, No Chills, No Fatigue, No Malaise ENT/Mouth : No sore throat, No Rhinorrhea Eyes: No Eye Pain, No Swelling, No Redness Cardiovascular : No Chest Pain, No SOB, No Dyspnea on Exertion, No Orthopnea, No Edema, No Palpitations Respiratory : No Cough, No Sputum, No Wheezing Gastrointestinal : No Nausea, No Vomiting, No Diarrhea, No Constipation, No abdominal Pain, No Hematochezia, No Melena Genitourinary : No Dysuria, No Urinary Frequency, No Hematuria, Musculoskeletal : No joint pain, No Myalgias, No Joint Swelling Skin : No Skin Lesions, No rash, + healing laceration Neuro : No Weakness, No Numbness, No Dizziness, No Headache Psych : No Anxiety/Panic, No Depression All other systems reviewed and are negative Yes all other systems are reviewed and are negative PMFSH Past Medical History Attestation statement: The following information was validated with the patient. Source: old records reviewed and nursing notes reviewed Medical History Anemia ARDS (adult respiratory distress syndrome) Asthma-COPD overlap syndrome Diabetes HTN (hypertension) Hypercholesteremia 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 removal of thyroid gland Hypothyroidism Hypothyroidism associated with surgical procedure Neuropathy Pneumonitis Thyroid cancer Uncontrolled type 2 diabetes mellitus with hyperglycemia Surgical History Left great toe amputee (09/02/20) Family History Family History Mother Hypertension Diabetes Father AA (alcohol abuse) Social History Social History Household Members: Other Housing: Apartment Do you presently have 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 or other home services: Yes Alcohol intake: never Patient Tobacco Use Status: Former Tobacco user Tobacco use type: Cigarette Years Smoked: 45 Advance Directives Date on File: 09/13/20 service: No Current occupational status: disabled Physical Exam Vital Signs: Vital Signs: vss Appearance: Alert.? Oriented X3.? No acute distress.? Head: Normocephalic, atraumatic, no step-offs or deformities Eyes: Pupils equal, round and reactive to light.? ENT: Pharynx normal.? Neck: Normal inspection.? Neck supple.? CVS: Normal heart rate and rhythm.? Pulses normal.? Respiratory: No respiratory distress.? Breath sounds normal.? Abdomen: Soft and nontender.? Skin: Skin warm and dry.? Normal skin color.? Normal skin turgor.?+ 4 radha in scalp intact Extremities: No lower extremity edema.? No calf ttp. 5/5 strength to bilateral upper and lower extremities Neuro: Oriented X 3.? No motor deficit.? No sensory deficit. CN 2-12 intact Course Reevaluation(s) Reevaluation #1: Radha successfully removed from triage. Educated patient on diagnosis and treatment plan, answered all question, patient verbalizes understanding. At this time patient will be discharged home, advised to return with new or worsening symptoms. Educated on worrisome signs and symptoms and when to return. At this time I feel comfortable discharge home. Time: 13:39 Medical Decision Making Medical Decision Making [facility] Narrative: [id number] 66-year-old female presents for removal of radha to head. 06/06/2022. No new complaints. Feeling well. Physical exam with 4 radha applied to scalp intact, no overlying infection. Neuro nonfocal. Plan at this time suture removal. Normal physical exam. With healing laceration to head. Differential Diagnosis Differential Diagnoses: The differential diagnosis associated with the presentation includes Normal physical exam. With healing laceration to head. Core Measures AMI core measures followed: Yes Measure exclusions: not indicated Discharge Plan Discharge Clinical Impression: Encounter for staple removal Patient Disposition: Home, Self-Care Additional Instructions: Take your medications as prescribed. If you were prescribed antibiotics today, it is important that you take your medication to their entirety, do not skip any doses, do not finish them early. Follow-up with your primary care provider this week. Return to the emergency department with new or worsening symptoms. Such as fevers, chills, chest pain, shortness of breath, nausea, vomiting, dizziness, headache, vision changes, lethargy In case of emergency call 911 Prescriptions: No Action cilostazol 100 mg tablet 100 mg PO BID@1200,2100 atorvastatin 80 mg tablet 1 tab PO BEDTIME venlafaxine 37.5 mg capsule,extended release 24hr 1 cap PO QAM clopidogrel 75 mg tablet 1 tab PO QAM aspirin 81 mg tablet,delayed release (DR/EC) 1 tab PO QAM levothyroxine 25 mcg tablet 1 tab PO QAM ferrous sulfate 325 mg (65 mg iron) tablet 1 tab PO QAM montelukast 10 mg tablet 1 tab PO BEDTIME loratadine 10 mg tablet 1 tab PO QAM cholecalciferol (vitamin D3) [Vitamin D3] 25 mcg (1,000 unit) capsule 1 cap PO QAM insulin lispro [Humalog KwikPen Insulin] 100 unit/mL insulin pen 10 unit subcut TIDAC metoprolol tartrate 25 mg tablet 1 tab PO BID calcium carbonate-vitamin D3 [Calcium 500 + D] 500 mg(1,250mg) -400 unit tablet 1 tab PO BID Qty: 60 0RF nicotine 7 mg/24 hr Patch 24 Hour 7 mg transdermal DAILY Qty: 14 0RF amlodipine 5 mg Tablet 5 mg PO DAILY Qty: 30 0RF Protocol: Hold for SBP< HOLD for SBP < : 90 calcium carbonate [Oyster Shell Calcium 500] 500 mg calcium (1,250 mg) Tablet 500 mg PO TIDWM Qty: 90 0RF metoprolol tartrate 25 mg tablet 25 mg PO DAILY Qty: 30 0RF cephalexin 500 mg capsule 500 mg PO BID Qty: 20 0RF oxycodone-acetaminophen [Percocet] 5-325 mg tablet 1 tab PO Q6H PRN (Reason: pain) Qty: 10 0RF tramadol 50 mg tablet 50 mg PO BID PRN calcium carbonate-vitamin D3 600 mg-20 mcg (800 unit) tablet 1 tab PO BID calcitriol 0.25 mcg capsule 0.25 mcg PO DAILY potassium chloride 10 mEq tablet extended release 10 meq PO BID (DME) lancets [TRUEplus Lancets] 33 gauge misc See Rx Instructions topical .MEDSUPPLY Qty: 100 Rx Instructions: As directed insulin aspart U-100 [Novolog FlexPen U-100 Insulin] 100 unit/mL (3 mL) insulin pen 8 unit subcut DIRECTED Flovent HFA 110 mcg/actuation HFA aerosol inhaler 2 puff inhalation BID gabapentin 100 mg capsule 200 mg PO BID (DME) FreeStyle Lite Strips Strip See Rx Instructions Not Applicable .MEDSUPPLY Qty: 10 Rx Instructions: As directed (DME) pen needle, diabetic [Pentips] 32 gauge x 5/32 needle See Rx Instructions .ROUTE QID Qty: 50 Rx Instructions: As directed once a day Farxiga 5 mg tablet 5 mg PO DAILY Tradjenta 5 mg tablet 5 mg PO DAILY cholecalciferol (vitamin D3) 50 mcg (2,000 unit) tablet 50 mcg PO DAILY sertraline 25 mg tablet 0 mg PO calcium carbonate [Calcium Antacid] 200 mg calcium (500 mg) tablet,chewable 0 mg PO potassium chloride 20 mEq tablet,ER particles/crystals 20 meq PO DAILY levothyroxine 88 mcg tablet 88 mcg PO DAILY levothyroxine 75 mcg tablet 75 mcg PO DAILY gabapentin 400 mg capsule 400 mg PO DAILY cetirizine 5 mg tablet 5 mg PO DAILY Referrals: ED Physician,Generic [Emergency Provider] - 2 days Physician,Unknown J [Primary Care Provider] -
[2022-06-14 13:40] VITALS: BP 146/76; PULSE 67; RESP 16; TEMP 36.6; O2SAT 100; BMI 28.3
== END 2022-06-14 14:00 | disposition home or self-care (01) ==
PROVIDERS: Emergency Provider Emergency Medicine
DX: Z48.02 Encounter for removal of sutures (principal)
CPT/HCPCS: 99282

== ENCOUNTER → 2022-06-20 09:01 | Outpatient (BNVA) | payer OTHER, SELFPAY | PROVIDERS: PCP Family Medicine; Referring Provider Family Medicine; Visit Provider Internal Medicine | DX: I25.10 Atherosclerotic heart disease of native coronary artery without angina pectoris (principal); I10 Essential (primary) hypertension; E78.00 Pure hypercholesterolemia, unspecified; R94.31 Abnormal electrocardiogram [ECG] [EKG]; E11.9 Type 2 diabetes mellitus without complications | CPT/HCPCS: 93005; 99212 ==

== ENCOUNTER 2022-08-03 09:37 | Outpatient (REF) | payer OTHER, SELFPAY ==
--- NOTE | ~2022-08-03 | US_ITS ---
PROCEDURE: ULTRASOUND-GUIDED FINE-NEEDLE ASPIRATION CLINICAL INFORMATION: Enlarged cervical lymph nodes. History of thyroid cancer. COMPARISON: Previous neck ultrasound May 2022. TECHNIQUE: Procedure and risks and benefits including bleeding and infection were discussed with the patient and informed consent was obtained. The left neck was prepped and draped in the usual sterile fashion. The skin and soft tissues were anesthetized with 1% lidocaine plain. Using ultrasound guidance and a 25-gauge needle, access to the left level IV lymph node was obtained. Two 25-gauge FNA specimens were obtained for cytology, flow cytometry and thyroglobulin washout studies. FINDINGS: There is a 1.9 x 0.6 x 0.6 cm left level IV lymph node that was targeted for fine-needle aspiration. This demonstrates a slit-like hilum and cortical thickening. US/US guided fine needle asp IMPRESSION: Left cervical lymph node fine-needle aspiration.
[2022-08-03] MEDS: Lidocaine HCl 1 % MPF 5 ML VIAL 10 ML SUBCUT (12:17)
== END 2022-08-03 09:38 | disposition home or self-care (01) ==
LOC: HO.US 09:37
PROVIDERS: Radiology Diagnostic Radiology; PCP Family Medicine; Visit Provider Family Medicine
DX: R59.0 Localized enlarged lymph nodes (principal)
CPT/HCPCS: 10005; 36415; 88173; 88184; 88185; 88305

== ENCOUNTER 2022-09-17 13:39 | Outpatient (REF) | payer OTHER, SELFPAY | END 2022-09-17 13:40 | disposition home or self-care (01) | LOC: HO.US 13:39 | PROVIDERS: PCP Family Medicine; Visit Provider Surgery Vascular Surgery | DX: I70.213 Atherosclerosis of native arteries of extremities with intermittent claudication, bilateral legs (principal) | CPT/HCPCS: 93923; 93925 ==

== ENCOUNTER 2022-10-02 15:09 | Outpatient (AMB) | payer OTHER, SELFPAY ==
--- NOTE | 2022-10-02 15:11 | MHC.OFFVIS ---
Intake Intake Visit Reasons: Follow Up 09/17 Arterial US Intake Note: Patient is here for a follow up s/p arterial US 09/17/22, patient c/o left foot around amputation area pain/pressure Allergies ALLYSSA Inhibitors [ALLYSSA INHIBITORS] Allergy (Mild, Verified 10/02/22 15:15) COUGH cilostazol [CILOSTAZOL] Allergy (Mild, Verified 10/02/22 15:15) COUGH HPI Follow Up 09/17 Arterial US HPI Details Very pleasant 67-year-old female presents for routine surveillance follow-up for peripheral vascular disease. She had undergone prior endovascular intervention with left great toe amputation. She reports she is doing fairly well from all of this. Toe in foot remains healed. She is able to ambulate few blocks with no significant difficulties. She now presents for follow-up with noninvasive arterial testing. [facility] Medical History Anemia ARDS (adult respiratory distress syndrome) Asthma-COPD overlap syndrome Atherosclerotic cardiovascular disease Diabetes HTN (hypertension) Hypercholesteremia 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 removal of thyroid gland Hypothyroidism Hypothyroidism associated with surgical procedure Neuropathy Pneumonitis Thyroid cancer Uncontrolled type 2 diabetes mellitus with hyperglycemia Surgical History Left great toe amputee (09/02/20) Family History Mother Hypertension Diabetes Father AA (alcohol abuse) Social History Household Members: Other Housing: Apartment Do you presently have 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 or other home services: Yes Alcohol intake: never Patient Tobacco Use Status: Former Tobacco user Years Smoked: 45 Advance Directives Date on File: 09/13/20 service: No Current occupational status: disabled Review of Systems Const All systems reviewed & are unremarkable except as noted in HPI and below Reports no additional complaints ENT Reports Normal hearing present Card Denies chest pain, Denies chest pain at rest, Denies chest pain with activity and Denies pedal edema Resp Denies cough GI Denies abdominal pain Musc Denies abnormal gait, Denies muscle cramps and Denies radiating pain into limb Skin/Breast Denies skin ulcer and Denies wounds Neuro Reports Normal hearing present and Denies abnormal gait Psych Reports no additional complaints Physical Exam Const General: cooperative, healthy appearing and comfortable Orientation/consciousness: oriented to person, oriented to place and oriented to time HEENT Head: Yes normal to inspection Neck Neck: Yes normal visual inspection Carotids: no bruits Chest Chest palpation & inspection: normal inspection of the chest Resp Effort & Inspection: normal respiratory effort and able to speak in complete sentences Auscultation: clear to auscultation bilaterally, no crackles, no rales, no rhonchi and no wheezes Cardio Rate: regular rate Rhythm: regular rhythm Heart sounds: S1 normal heart sound present and S2 normal heart sound present Bruits: no carotid bruits Peripheral pulses: Peripheral pulses 2+ throughout GI Inspection: Yes normal to inspection Skin Wounds: no wounds Hair: normal Neuro General: oriented to person, oriented to place and oriented to time Cranial nerves: Yes CN's II-XII intact bilaterally and Yes Normal hearing present Cognition (Neuro): normal cognition Motor exam (neuro): 5/5 motor strength present throughout Extrem Other: venous exam: No significant superficial varicosities or spider telangiectasias, minimal edema General: No clubbing, No cyanosis and No edema Psych Appearance: grossly normal Mental Status: mental status grossly normal Speech and movement: Normal speech and movement present Results Reviewed Results Reviewed: Noninvasive arterial testing dated 09/17/2022 demonstrates BLANCHE on the right of 0.73 and on the left of 1.07. Written report and images were reviewed. Assessment & Plan Assessment & Plan (1) PAD (peripheral artery disease): Comment: 06/27/2020 - left SFA atherectomy and stent, left popliteal plasty Code(s): I73.9 - Peripheral vascular disease, unspecified Plan: In short patient has stable claudication. I did review the pathophysiology of peripheral vascular disease with the patient. In addition we did discuss routine conservative measures including a healthy diet and the importance of exercise and ambulation. We did discuss risk factor modification. The patient will continue to to follow-up with surveillance follow-up in approximately 6 months. Thank you for allowing us to participate in this patient's care. If there are any questions or concerns please do not hesitate to contact us. Orders: Orders US arterial duplex LE BI 6 Months I73.9 - Peripheral vascular disease, unspecified Coding Level of Care Code Est Pt Level 4 (27826) Diagnoses PAD (peripheral artery disease) I73.9
== END 2022-10-02 15:42 | disposition home or self-care (01) ==
PROVIDERS: PCP Family Medicine; Visit Provider Surgery Vascular Surgery
DX: I73.9 Peripheral vascular disease, unspecified (principal); Z89.412 Acquired absence of left great toe
CPT/HCPCS: 99213

== ENCOUNTER → 2022-10-02 15:09 | Outpatient (BNVA) | payer OTHER, SELFPAY | PROVIDERS: PCP Family Medicine; Visit Provider Surgery Vascular Surgery ==

== ENCOUNTER 2022-10-04 12:32 | Outpatient (REF) | payer OTHER, SELFPAY ==
--- NOTE | ~2022-10-04 | MM_ITS ---
EXAMINATION: MM SCREENING DIGITAL BREAST TOMOSYNTHESIS, BILATERAL CLINICAL INFORMATION: Screening. Asymptomatic. The lifetime risk of breast cancer based on the Tyrer-Cuzick Model is 8.8%. COMPARISON: Mammography: This study is compared with prior exams dating back to 2019. TECHNIQUE: Digital breast tomosynthesis is performed in both the craniocaudal and mediolateral oblique views along with computer-aided detection (CAD). Synthesized 2D images are generated from the tomosynthesis. FINDINGS: There are scattered areas of fibroglandular density (ACR BI-RADS breast composition Category b). There are no significant masses, abnormal calcifications, or other abnormalities. There are a few, benign calcifications in each breast. There is a tissue marker present in the deep third of the right breast from prior benign percutaneous biopsy. MM/MM tomosynthesis screening BI IMPRESSION: No mammographic evidence of malignancy. ASSESSMENT: BI-RADS BI-RADS 2 - Benign Findings RECOMMENDATION: Routine annual mammography screening. 1 year F/U This examination should not preclude the clinical evaluation of a suspicious palpable abnormality. This patient's information was entered into a reminder system with a target due date for their next mammogram.
== END 2022-10-04 12:33 | disposition home or self-care (01) ==
LOC: HO.MAMMO 12:32
PROVIDERS: PCP Family Medicine; Visit Provider Family Medicine
DX: Z12.31 Encounter for screening mammogram for malignant neoplasm of breast (principal)
CPT/HCPCS: 77063; 77067

== ENCOUNTER → 2022-10-04 13:00 | Outpatient (BNV) | payer OTHER, SELFPAY | PROVIDERS: PCP Family Medicine; Visit Provider Radiology Diagnostic Radiology | DX: Z12.31 Encounter for screening mammogram for malignant neoplasm of breast (principal) | CPT/HCPCS: 77063; 77067 ==

== ENCOUNTER 2022-10-31 11:52 | Outpatient (REF) | payer OTHER, SELFPAY ==
[2022-10-31 13:08] LABS: MANUAL DIFF FLAG NO
[2022-10-31 13:23] LABS: Basophils Absolute Auto 0.1 X10*3/uL (0.0-0.2); Basophils Percent Auto 0.7 % (0-2); Eosinophils Absolute Auto 0.5 X10*3/uL (0.0-0.4); Eosinophils Percent Auto 6.9 % (0-4); Hematocrit 31.8 % (37.0-47.0); Hemoglobin 9.6 g/dl (12.0-16.0); Imm Gran Abs Auto 0.02 X10*3/uL (0.00-0.03); Imm Gran Pct Auto 0.3 % (0.0-0.4); Lymphocytes Absolute Auto 1.2 X10*3/uL (1.2-4.9); Mean Corpuscular HGB Conc 30.2 g/dl (31.0-35.0); Mean Corpuscular Hemoglobin 26.7 pg (27.0-33.0); Mean Corpuscular Volume 88.6 fL (80.0-98.0); Mean Platelet Volume 10.7 fL (9.4-12.3); Monocytes Absolute Auto 0.6 X10*3/uL (0.1-1.2); Monocytes Percent Auto 8.7 % (2-11); Neutrophils Absolute Auto 4.7 x10*3/uL (2.0-8.3); Neutrophils Percent Auto 66.4 % (45-73); Platelet Count 149 X10*3/uL (160-400); Red Blood Count 3.59 X10*6/uL (4.20-5.50); Red Cell Distribution Width 16.1 % (11.0-16.0)
[2022-10-31 13:39] LABS: Cholesterol 122 mg/dL; HDL Cholesterol 44 mg/dL; LDL Cholesterol Calculated 60 mg/dl; Triglycerides 93 mg/dL
[2022-10-31 14:09] LABS: Ferritin 38 ng/mL (10-250); Folate 13.5 ng/mL (> or = 4.0); Free T4 (Free Thyroxine) 1.43 ng/dL (0.71-1.85); Thyroid Stimulating Hormone 0.15 uIU/mL (0.32-4.0); Vitamin B12 577 pg/mL (200-900)
[2022-10-31 14:16] LABS: Alanine Aminotransferase 10 U/L (0-31); Albumin Level 3.2 g/dL (3.5-5.0); Alkaline Phosphatase 88 U/L (39-117); Anion Gap 12 (12-20); Aspartate Amino Transferase 21 U/L (5-31); Bilirubin Total 0.3 mg/dL (0.0-1.0); Blood Urea Nitrogen 31 mg/dL (9-16); Calcium 5.8 mg/dL (8.4-10.2); Carbon Dioxide 25 mmol/L (22-29); Chloride 109 mmol/L (96-108); Estimated Glomerular Filt Rate 15; Glucose Random 106 mg/dL (60-115); Iron 34 mcg/dL (30-160); Magnesium 1.9 mg/dL (1.6-2.6); Percent Iron Saturation 14 % (15-50); Potassium 3.7 mmol/L (3.3-5.1); Sodium 142 mmol/L (135-145); Total Iron Binding Capacity 244 mcg/dL (228-428); Total Protein 7.8 g/dL (6.5-8.0); Unsaturated Iron Binding 210 ug/dL
[2022-10-31 14:23] LABS: Reflex LDLD? No
[2022-10-31 15:00] LABS: Creatinine Urine 49.19 mg/dL
[2022-11-01 06:54] LABS: Triiodothyronine T3 Free 2.5 pg/mL (2.3-4.2)
== END 2022-10-31 11:53 | disposition home or self-care (01) ==
LOC: HO.HHCL 11:52
PROVIDERS: Visit Provider Family Medicine
DX: E11.22 Type 2 diabetes mellitus with diabetic chronic kidney disease (principal); N18.4 Chronic kidney disease, stage 4 (severe); Z79.4 Long term (current) use of insulin; E89.0 Postprocedural hypothyroidism
CPT/HCPCS: 36415; 80053; 80061; 82043; 82607; 82728; 82746; 83540; 83735; 84439; 84443; 84481; 85025

== ENCOUNTER 2022-12-31 12:49 | Outpatient (REF) | payer OTHER, SELFPAY ==
--- NOTE | ~2022-12-31 | CT_ITS ---
EXAMINATION: CT CHEST WITHOUT CONTRAST CLINICAL INFORMATION: Cough and weight loss. COMPARISON: CT chest 08/24/2020. TECHNIQUE: Multidetector volumetric CT imaging of the chest was done. Axial MIP volume rendering provided. Sagittal and coronal reformatted images were obtained. This CT examination was performed using dose optimization techniques as appropriate, variously including the following: *Automated exposure control *Adjustment of mA and/or kV according to patient size (this includes techniques or standardized protocols for targeted exams where dose is matched to indication/reason for exam; i.e. extremities or head) *Use of iterative reconstruction technique DLP: 204 mGy-cm FINDINGS: LUNGS: There is diffuse airway wall thickening. There is subpleural interlobular thickening at within apicobasilar gradient which may reflect early mild fibrosis. The extensive airspace disease seen on the prior study has resolved. There are a few scattered micronodules for which no follow-up imaging is recommended as per Fleischner Society guidelines. MEDIASTINUM: Thyroidectomy. Enlarged right lower paratracheal lymph node measuring 1.9 mm. Prominent anterior mediastinal lymph node measuring 0.7 cm. These findings are stable compared to 08/24/2020. The ascending aorta measures 3.5 cm. The main pulmonary artery measures 3.5 cm which may indicate pulmonary arterial hypertension. Small hiatal hernia. No pericardial effusion. CORONARY ARTERY CALCIFICATION: Mild to moderate three-vessel coronary calcium. PLEURA: There is no pleural effusion. No pleural mass or thickening. AXILLA: No adenopathy. UPPER ABDOMEN: Gastric bypass. OSSEOUS STRUCTURES: Degenerative changes in the spine. CT/CT chest wo IV con IMPRESSION: No focal pneumonia. Extensive airspace disease on the prior study has resolved. Subtle subpleural interlobular thickening with apicobasilar gradient may reflect mild early fibrosis. Few scattered micronodules. No follow-up imaging is recommended as per Fleischner Society guidelines. Dilated main pulmonary artery measuring 3.5 cm which may indicate pulmonary arterial hypertension. Mild to moderate three-vessel coronary calcium. Fleischner guidelines were followed.
== END 2022-12-31 12:50 | disposition home or self-care (01) ==
LOC: HO.CT 12:49
PROVIDERS: PCP Family Medicine; Visit Provider Family Medicine
DX: R05.2 Subacute cough (principal); R06.89 Other abnormalities of breathing
CPT/HCPCS: 71250

== ENCOUNTER 2023-01-15 14:41 | Outpatient (REF) | payer OTHER, SELFPAY ==
[2023-01-15 17:47] LABS: Alanine Aminotransferase 5 U/L (0-31); Albumin Level 3.1 g/dL (3.5-5.0); Alkaline Phosphatase 89 U/L (39-117); Anion Gap 17 (12-20); Aspartate Amino Transferase 16 U/L (5-31); Bilirubin Total 0.3 mg/dL (0.0-1.0); Blood Urea Nitrogen 26 mg/dL (9-16); Calcium 5.7 mg/dL (8.4-10.2); Carbon Dioxide 21 mmol/L (22-29); Chloride 110 mmol/L (96-108); Estimated Glomerular Filt Rate 13; Glucose Random 148 mg/dL (60-115); Magnesium 1.8 mg/dL (1.6-2.6); Potassium 3.5 mmol/L (3.3-5.1); Sodium 144 mmol/L (135-145)
== END 2023-01-15 14:42 | disposition home or self-care (01) ==
LOC: HO.LAB 14:41
PROVIDERS: PCP Family Medicine; Visit Provider Nurse Practitioner Family
DX: I25.10 Atherosclerotic heart disease of native coronary artery without angina pectoris (principal); R94.31 Abnormal electrocardiogram [ECG] [EKG]; I10 Essential (primary) hypertension; E78.00 Pure hypercholesterolemia, unspecified; Z79.82 Long term (current) use of aspirin; Z79.899 Other long term (current) drug therapy
CPT/HCPCS: 36415; 80053; 83735; 93005; 99212

== ENCOUNTER 2023-01-15 14:41 | Outpatient (AMB) | payer OTHER, SELFPAY ==
[2023-01-15 15:28] VITALS: BP 130/72; PULSE 68; O2SAT 97; BMI 27.3
--- NOTE | 2023-01-15 15:28 | MHC.OFFVIS ---
Intake Vital Signs 01/15/23 15:28 Height 5 ft Weight 139 lb 12.369 oz BMI 27.3 BP 130/72 Blood Pressure Location Rt brachial Position Sitting Pulse 68 Pulse Source Pulse Oximeter Pulse Oximetry (%) 97 Oxygen Delivery Method Room Air Intake Visit Reasons: F/U Intake Note: Pt presents to the office today for a follow up. Pt states she is feeling good and doesn't have any cardiac concerns at this time. Accompanied by: Grand Child Allergies ALLYSSA Inhibitors [ALLYSSA INHIBITORS] Allergy (Mild, Verified 01/15/23 15:31) COUGH cilostazol [CILOSTAZOL] Allergy (Mild, Verified 01/15/23 15:31) COUGH Medication List - Last Reconciled 01/15/23 by TRACI Vogel amlodipine 5 mg See Protocol PO DAILY aspirin 81 mg PO QAM atorvastatin 80 mg PO BEDTIME blood sugar diagnostic (FreeStyle Lite Strips) As directed calcitriol 0.25 mcg PO DAILY calcium carbonate (Oyster Shell Calcium 500) 500 mg PO TIDWM calcium carbonate-vitamin D3 500 mg-10 mcg (400 unit) (Calcium 500 + D) 1 tab PO BID cetirizine 5 mg PO DAILY cholecalciferol (vitamin D3) 50 mcg PO DAILY cilostazol 100 mg PO BID@1200,2100 clopidogrel 75 mg PO QAM dapagliflozin propanediol (Farxiga) 5 mg PO DAILY ferrous sulfate 1 tab PO QAM fluticasone propionate 110 mcg/actuation (Flovent HFA) 2 puffs inhalation BID gabapentin 200 mg PO BID insulin aspart U-100 (Novolog FlexPen U-100 Insulin aspart) 8 units subcut DIRECTED insulin lispro (Humalog KwikPen (U-100) Insulin) 10 units subcut TIDAC lancets (TRUEplus Lancets) As directed levothyroxine 75 mcg PO DAILY levothyroxine 25 mcg PO QAM linagliptin (Tradjenta) 5 mg PO DAILY loratadine 10 mg PO QAM metoprolol tartrate 25 mg PO BID montelukast 10 mg PO BEDTIME oxycodone-acetaminophen 5-325 mg (Percocet) 1 tab PO Q6H PRN pen needle, diabetic (Pentips) As directed once a day potassium chloride ER 20 mEq PO DAILY sertraline 25 mg PO DAILY tramadol 50 mg PO BID PRN venlafaxine ER 37.5 mg PO QAM HPI F/U HPI Details Sarah is a 67 yo female with PMH of HTN, HLD,, DM, PAD, CAD with RCA stent 2007, prolonged QTc who presents for follow up. Today she reports that she has been doing well since last visit in June. She denies any chest discomfort, sob, palpitations, presyncope, syncope, PND, orthopnea or edema. Taking all meds as directed. Daugther present. Certified Thai interpretor used. [facility] Medical History Nicotine dependence, cigarettes, uncomplicated Atherosclerotic cardiovascular disease Thyroid cancer (~2008) 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) Hypothyroidism associated with surgical procedure (~2008) Uncontrolled type 2 diabetes mellitus with hyperglycemia (~1986) Pneumonitis ARDS (adult respiratory distress syndrome) Neuropathy Asthma-COPD overlap syndrome Anemia HTN (hypertension) Hypercholesteremia Surgical History History of thyroidectomy History of back surgery History of 2 sections History of angioplasty History of amputation of left great toe Family History Mother Hypertension Diabetes Father AA (alcohol abuse) Social History Household Members: Other Housing: Apartment Do you presently have 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 or other home services: Yes Alcohol intake: never Patient Tobacco Use Status: Former Tobacco user Years Smoked: 45 Advance Directives Date on File: 09/13/20 service: No Current occupational status: disabled Review of Systems Const All systems reviewed & are unremarkable except as noted in HPI and below Physical Exam Vital Signs: Last Vital Signs Pulse 68 01/15/23 15:28 BP 130/72 01/15/23 15:28 Pulse Ox 97 01/15/23 15:28 Oxygen Delivery Method Room Air 01/15/23 15:28 BMI result Body Mass Index 27.3 Const General: cooperative, healthy appearing, comfortable and no acute distress Orientation/consciousness: patient oriented x3 Neck Neck: Yes normal visual inspection Resp Effort & Inspection: normal respiratory effort Auscultation: clear to auscultation bilaterally, no crackles, no rales, no rhonchi and no wheezes Cardio Jugular venous distension: no JVD Rate: regular rate Rhythm: regular rhythm Heart sounds: S1 normal heart sound present, S2 normal heart sound present, no murmurs and no rubs Neuro General: patient oriented x3 Extrem General: Yes normal to inspection Psych Appearance: grossly normal Mental Status: mental status grossly normal Speech and movement: Normal speech and movement present Office Procedures EKG Details: Today, read by me, normal sinus rhythm, nonspecific T-wave abnormality, prolonged QTC 571 milliseconds, rate 64 [id number], Complete Assessment & Plan Assessment & Plan (1) Atherosclerotic cardiovascular disease: Code(s): I25.10 - Atherosclerotic heart disease of inupiat coronary artery without angina pectoris Plan: Hx CAD with RCA stent 2007. Previously followed by [facility]. Seen by us in 2016 and not seen again in cardiology f/u until 06/2022. Nuclear stress test done in 2016 showed likely normal myocardial perfusion imaging. Last echo 2020 showed EF 60-65% with mild diastolic dysfunction, mild MR, mild pulmonary HTN. EKG last visit had prolonged QT interval. Today she denies any anginal symptoms. Pleased with how she feels. EKG today with SR, nonspecific T wave abn, Qtc 571ms, rate 64. Continue managment for stable CAD. Continue aspirin indefinitely, continue high dose atorvastatin with ideal LDL goal < 70, she has PVD so can continue Plavix, continue metoprolol. s/s angina reviewed with her. Cardiology follow up in 6 mo, sooner if needed. (2) QT prolongation: Code(s): R94.31 - Abnormal electrocardiogram [ECG] [EKG] Plan: Prolonged QTc 541ms on last EKG 06/20/22. EKG done today shows SR, QRS 88 ms, QTc 571ms, rate 64. Sent for labs showing: K 3.5, Cr 3.5 ( follows with nephrology), Ca 5.7, mg 1.8. She has a known history of hypoparathyroidism and runs ID low calcium level. She is on calcium supplement and vitamin-D. She follows with Dr. Herndon for endocrinology. Message sent to him regarding low calcium and prolonged QTC interval. Medication list reviewed. She is on sertraline and Venlaflaxine each of which can prolong the QT interval. Recommend that she stop these medications and if needed be changed to alternatives that do not prolong the QTc interval. Would avoid all meds that prolong QT. Will forward this note to her PCP, Dr. Herndon and Dr. Butler. (3) HTN (hypertension): Code(s): I10 - Essential (primary) hypertension Plan: Well controlled at present. No med changes made. (4) Hypercholesteremia: Code(s): E78.00 - Pure hypercholesterolemia, unspecified Orders: Orders Magnesium 01/15/23 R94.31 - Abnormal electrocardiogram [ECG] [EKG] Calcium 01/15/23 R94.31 - Abnormal electrocardiogram [ECG] [EKG] Comprehensive Met. Panel 01/15/23 R94.31 - Abnormal electrocardiogram [ECG] [EKG] Coding Level of Care Code Est Pt Level 4 (60038) Diagnoses Atherosclerotic cardiovascular disease I25.10 QT prolongation R94.31 HTN (hypertension) I10 Hypercholesteremia E78.00 CPT Codes EKG - CPT: [id number], Complete ([id number]) Time Spent (min) 28
== END 2023-01-15 15:56 | disposition home or self-care (01) ==
PROVIDERS: PCP Family Medicine; Visit Provider Nurse Practitioner Family
DX: R94.31 Abnormal electrocardiogram [ECG] [EKG] (principal)
CPT/HCPCS: 93010; 99214

== ENCOUNTER 2023-02-26 13:25 | Outpatient (AMB) | payer OTHER, SELFPAY ==
[2023-02-26 13:36] VITALS: BP 130/64; PULSE 72; O2SAT 100; BMI 28.3
--- NOTE | 2023-02-26 13:36 | HO.NEPHOV ---
HPI HPI Comments History of Present Illness Details Sarah is a 67-year-old woman who is well known to me. She has a longstanding history of diabetes mellitus complicated by chronic disease. She has advanced chronic kidney disease. Back in 2020 she was hospitalized and she spent some time in the ICU while she was critically ill. She sustained acute kidney injury at that time. She underwent extensive serological workup. Serum complement C3-C4 were low. Other serologies were unremarkable. She underwent a kidney biopsy which showed evidence of advanced diabetic nephropathy. There was no evidence of immune complex disease. She comes today for follow-up and accompanied by family member. Recent creatinine has been around 3.5 mg/dL. She denies any specific complaints like nausea vomiting or shortness of breath. She has lost some weight but her appetite has been good. No edema. She has history of significant hypokalemia and hypocalcemia for which she has been taking supplements. On January 21 she was sent to [facility] emergency room due to hypokalemia and she was treated in the ER and sent home. No follow-up labs are available. [facility] Medical History (Updated 02/26/23 @ 14:07 by Jean Claude Bowden MD) Hypocalcemia Nicotine dependence, cigarettes, uncomplicated Atherosclerotic cardiovascular disease Thyroid cancer (~2008) 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) Hypothyroidism associated with surgical procedure (~2008) Uncontrolled type 2 diabetes mellitus with hyperglycemia (~1986) Pneumonitis ARDS (adult respiratory distress syndrome) Neuropathy Asthma-COPD overlap syndrome Anemia HTN (hypertension) Hypercholesteremia Surgical History History of thyroidectomy History of back surgery History of 2 sections History of angioplasty History of amputation of left great toe Family History Mother Hypertension Diabetes Father AA (alcohol abuse) Social History Household Members: Other Housing: Apartment Do you presently have 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 or other home services: Yes Alcohol intake: never 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 Tobacco Use Status: Former Tobacco user Years Smoked: 45 Advance Directives Date on File: 09/13/20 service: No Current occupational status: disabled Vital Signs 02/26/23 13:36 Height 5 ft Weight 145 lb BMI 28.3 BP 130/64 Blood Pressure Location Rt brachial Position Sitting Pulse 72 Pulse Source Pulse Oximeter Pulse Oximetry (%) 100 Oxygen Delivery Method Room Air Physical Exam Vital Signs: Last Vital Signs Pulse 72 02/26/23 13:36 BP 130/64 02/26/23 13:36 Pulse Ox 100 02/26/23 13:36 Oxygen Delivery Method Room Air 02/26/23 13:36 BMI result Body Mass Index 28.3 Const General: comfortable Nutritional Appearance: well nourished Orientation/consciousness: patient oriented x3 HEENT Head: No normal to inspection Mouth: moist mucous membranes Neck Neck: Yes supple and Yes no JVD Resp Auscultation: clear to auscultation bilaterally, no rales and rub present Cardio Jugular venous distension: no JVD Palpation: no palpable S3 and no palpable S4 Heart sounds: no rubs GI Palpation (GI): Soft to palpation and nontender Percussion: No Fluid wave present General: Yes no CVA tenderness Back/Spine/Pelvis Back: no CVA tenderness Skin General skin exam: no rashes or lesions noted Neuro General: patient oriented x3 Extrem General: Yes no pedal edema and No clubbing Assessment & Plan Assessment & Plan (1) CKD (chronic kidney disease) stage 5, GFR less than 15 ml/min: Code(s): N18.5 - Chronic kidney disease, stage 5 (2) HTN (hypertension): Code(s): I10 - Essential (primary) hypertension (3) Hypocalcemia: Code(s): E83.51 - Hypocalcemia (4) 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 At present she has no overt signs or symptoms of uremia or fluid overload. She is approaching end-stage renal disease. I have discussed the need for renal replacement therapy in the near future. Goal is to slow the progression of renal disease. Continue to avoid nephrotoxins agents including NSAIDs. Maintain blood pressure less than 130/80 any A1c less than 7%. Will continue to watch renal function closely. 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 I will check hemoglobin again and reassess the need for erythropoietin replacement. Hypocalcemia in the setting of parathyroidectomy. I ordered PTH and repeat serum calcium. For now we will continue with current calcium supplementation. History of hypokalemia she is on potassium supplementation. Recheck potassium today and adjust dosage accordingly. All questions were answered Orders: Orders Creatinine Today N18.5 - Chronic kidney disease, stage 5 Calcium Today N18.5 - Chronic kidney disease, stage 5 Complete Blood Count no Diff Today N18.5 - Chronic kidney disease, stage 5 Vitamin D 25-OH (D2 and D3) Today N18.5 - Chronic kidney disease, stage 5 Electrolytes Today N18.5 - Chronic kidney disease, stage 5 Blood Urea Nitrogen Today N18.5 - Chronic kidney disease, stage 5 Parathyroid Hormone Intact Today N18.5 - Chronic kidney disease, stage 5 Phosphorus Today N18.5 - Chronic kidney disease, stage 5 Coding Level of Care Code Est Pt Level 4 (58849) Diagnoses CKD (chronic kidney disease) stage 5, GFR less than 15 ml/min N18.5 HTN (hypertension) I10 Hypocalcemia E83.51 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 removal of thyroid gland E89.2 Hypothyroidism associated with surgical procedure E89.0 Hypokalemia E87.6 Results Reviewed Results Reviewed: Kidney biopsy November 2021. Advanced diabetic nephropathy with global sclerosis of 15 of 90 i glomeruli/80% and mesangial and nodular sclerosis of remaining glomeruli/ class 4 Interstitial inflammation and fibrosis with chronic tubular atrophy severe involving 70% of cortical area. Arteriolar hyaline oasis-severe Immunofluorescence was negative for immune complex mediated disease [place] red stain negative for amyloid Nephrology Results: Hgb 9.6 g/dl (12.0-16.0) L 10/31/22 WBC 7.0 X10*3/uL (4.8-10.8) 10/31/22 Plt Count 149 X10*3/uL (160-400) L 10/31/22 Sodium 144 mmol/L (135-145) 01/15/23 Potassium 3.5 mmol/L (3.3-5.1) 01/15/23 Chloride 110 mmol/L (96-108) H 01/15/23 Carbon Dioxide 21 mmol/L (22-29) L 01/15/23 BUN 26 mg/dL (9-16) H 01/15/23 Creatinine 3.50 mg/dL (0.5-1.4) H 01/15/23 Calcium 5.7 mg/dL (8.4-10.2) L* 01/15/23 Urine Creatinine 49.19 mg/dL 10/31/22
== END 2023-02-26 14:00 | disposition home or self-care (01) ==
PROVIDERS: PCP Family Medicine; Visit Provider Internal Medicine Hypertension Specialist
DX: N18.5 Chronic kidney disease, stage 5 (principal); I12.0 Hypertensive chronic kidney disease with stage 5 chronic kidney disease or end stage renal disease; E83.51 Hypocalcemia; E89.2 Postprocedural hypoparathyroidism; E89.0 Postprocedural hypothyroidism; E87.6 Hypokalemia
CPT/HCPCS: 99214

== ENCOUNTER 2023-02-26 13:25 | Outpatient (REF) | payer OTHER, SELFPAY ==
[2023-02-26 14:53] LABS: Hematocrit 28.9 % (37.0-47.0); Hemoglobin 8.9 g/dl (12.0-16.0); Mean Corpuscular HGB Conc 30.8 g/dl (31.0-35.0); Mean Corpuscular Hemoglobin 27.1 pg (27.0-33.0); Mean Corpuscular Volume 87.8 fL (80.0-98.0); Mean Platelet Volume 10.7 fL (9.4-12.3); Platelet Count 173 X10*3/uL (160-400); Red Blood Count 3.29 X10*6/uL (4.20-5.50); Red Cell Distribution Width 16.8 % (11.0-16.0); White Blood Count 9.4 X10*3/uL (4.8-10.8)
[2023-02-26 15:30] LABS: Albumin Level 3.4 g/dL (3.5-5.0); Anion Gap 16 (12-20); Blood Urea Nitrogen 41 mg/dL (9-16); Calcium 6.6 mg/dL (8.4-10.2); Carbon Dioxide 21 mmol/L (22-29); Chloride 107 mmol/L (96-108); Estimated Glomerular Filt Rate 13; Phosphorus 5.3 mg/dL (2.7-4.5); Potassium 4.2 mmol/L (3.3-5.1); Sodium 140 mmol/L (135-145)
[2023-02-27 15:28] LABS: Calcium, Ionized 3.6 mg/dL (4.7-5.5)
[2023-03-02 15:02] LABS: Vitamin D 25-OH, D2 <4 ng/mL; Vitamin D 25-OH, D3 47 ng/mL; Vitamin D 25-OH, Total 47 ng/mL (30-100)
== END 2023-02-26 13:26 | disposition home or self-care (01) ==
LOC: HO.LAB 13:25
PROVIDERS: Internal Medicine Endocrinology, Diabetes & Metabolism; PCP Family Medicine; Visit Provider Internal Medicine Hypertension Specialist
DX: E11.21 Type 2 diabetes mellitus with diabetic nephropathy (principal); I12.9 Hypertensive chronic kidney disease with stage 1 through stage 4 chronic kidney disease, or unspecified chronic kidney disease; N18.5 Chronic kidney disease, stage 5; E89.2 Postprocedural hypoparathyroidism; E89.0 Postprocedural hypothyroidism; E87.6 Hypokalemia
CPT/HCPCS: 36415; 80051; 82040; 82306; 82310; 82330; 82565; 83970; 84100; 84520; 85027; 99212

== ENCOUNTER 2023-03-21 11:44 | Outpatient (AMB) | payer OTHER, SELFPAY ==
[2023-03-21 11:52] VITALS: BP 130/52; BMI 27.6
--- NOTE | 2023-03-21 11:52 | HO.NEPHOV ---
HPI HPI Comments History of Present Illness Details Sarah is a 67-year-old woman who is well known to me. She has a longstanding history of diabetes mellitus complicated by chronic disease. She has advanced chronic kidney disease. Back in 2020 she was hospitalized and she spent some time in the ICU while she was critically ill. She sustained acute kidney injury at that time. She underwent extensive serological workup. Serum complement C3-C4 were low. Other serologies were unremarkable. She underwent a kidney biopsy which showed evidence of advanced diabetic nephropathy. There was no evidence of immune complex disease. She comes today for follow-up and accompanied by family member. Recent creatinine has been around 3.5 mg/dL. She denies any specific complaints like nausea vomiting or shortness of breath. She has lost some weight but her appetite has been good. No edema. She has history of significant hypokalemia and hypocalcemia for which she has been taking supplements. On January 21 she was sent to [facility] emergency room due to hypokalemia and she was treated in the ER and sent home. 03/21/2023. Here for follow-up. No specific complaints today. [facility] Medical History (Updated 02/26/23 @ 14:07 by Jean Claude Bowden MD) Hypocalcemia Nicotine dependence, cigarettes, uncomplicated Atherosclerotic cardiovascular disease Thyroid cancer (~2008) 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) Hypothyroidism associated with surgical procedure (~2008) Uncontrolled type 2 diabetes mellitus with hyperglycemia (~1986) Pneumonitis ARDS (adult respiratory distress syndrome) Neuropathy Asthma-COPD overlap syndrome Anemia HTN (hypertension) Hypercholesteremia Surgical History History of thyroidectomy History of back surgery History of 2 sections History of angioplasty History of amputation of left great toe Family History Mother Hypertension Diabetes Father AA (alcohol abuse) Social History Household Members: Other Housing: Apartment Do you presently have 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 or other home services: Yes Alcohol intake: never 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 Tobacco Use Status: Former Tobacco user Years Smoked: 45 Advance Directives Date on File: 09/13/20 service: No Current occupational status: disabled Vital Signs 03/21/23 11:52 Height 5 ft Weight 141 lb 8 oz BMI 27.6 BP 130/52 L Blood Pressure Location Rt brachial Position Sitting Physical Exam Vital Signs: Last Vital Signs BP 130/52 L 03/21/23 11:52 BMI result Body Mass Index 27.6 Const General: comfortable Nutritional Appearance: well nourished Orientation/consciousness: patient oriented x3 HEENT Head: No normal to inspection Mouth: moist mucous membranes Neck Neck: Yes supple and Yes no JVD Resp Auscultation: clear to auscultation bilaterally, no rales and rub present Cardio Jugular venous distension: no JVD Palpation: no palpable S3 and no palpable S4 Heart sounds: no rubs GI Palpation (GI): Soft to palpation and nontender Percussion: No Fluid wave present General: Yes no CVA tenderness Back/Spine/Pelvis Back: no CVA tenderness Skin General skin exam: no rashes or lesions noted Neuro General: patient oriented x3 Extrem General: Yes no pedal edema and No clubbing Assessment & Plan Assessment & Plan (1) CKD (chronic kidney disease) stage 5, GFR less than 15 ml/min: Code(s): N18.5 - Chronic kidney disease, stage 5 (2) HTN (hypertension): Code(s): I10 - Essential (primary) hypertension (3) Hypocalcemia: Code(s): E83.51 - Hypocalcemia (4) 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 At present she has no overt signs or symptoms of uremia or fluid overload. She is approaching end-stage renal disease. Goal is to slow the progression of renal disease. Continue to avoid nephrotoxins agents including NSAIDs. Maintain blood pressure less than 130/80 any A1c less than 7%. Will continue to watch renal function closely. 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 Check iron stores and reassess the need for erythropoietin replacement. Hypocalcemia in the setting of parathyroidectomy. we will continue with current calcium supplementation. She follows with Endocrinology History of hypokalemia she is on potassium supplementation. Potassium is in that normal range. Orders: Orders Electrolytes 3 Weeks N18.5 - Chronic kidney disease, stage 5 Blood Urea Nitrogen 3 Weeks N18.5 - Chronic kidney disease, stage 5 Creatinine 3 Weeks N18.5 - Chronic kidney disease, stage 5 Calcium 3 Weeks N18.5 - Chronic kidney disease, stage 5 IRON PROFILE 3 Weeks N18.5 - Chronic kidney disease, stage 5 Ferritin 3 Weeks N18.5 - Chronic kidney disease, stage 5 Parathyroid Hormone Intact 3 Weeks N18.5 - Chronic kidney disease, stage 5 Complete Blood Count no Diff 3 Weeks N18.5 - Chronic kidney disease, stage 5 Coding Level of Care Code Est Pt Level 4 (12971) Diagnoses CKD (chronic kidney disease) stage 5, GFR less than 15 ml/min N18.5 HTN (hypertension) I10 Hypocalcemia E83.51 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 removal of thyroid gland E89.2 Hypothyroidism associated with surgical procedure E89.0 Hypokalemia E87.6 Results Reviewed Nephrology Results: Hgb 8.9 g/dl (12.0-16.0) L 02/26/23 WBC 9.4 X10*3/uL (4.8-10.8) 02/26/23 Plt Count 173 X10*3/uL (160-400) 02/26/23 Sodium 140 mmol/L (135-145) 02/26/23 Potassium 4.2 mmol/L (3.3-5.1) 02/26/23 Chloride 107 mmol/L (96-108) 02/26/23 Carbon Dioxide 21 mmol/L (22-29) L 02/26/23 BUN 41 mg/dL (9-16) H 02/26/23 Creatinine 3.53 mg/dL (0.5-1.4) H 02/26/23 Calcium 6.6 mg/dL (8.4-10.2) L 02/26/23 Phosphorus 5.3 mg/dL (2.7-4.5) H 02/26/23 PTH Intact 135.0 pg/mL (8.7-77.1) H 02/26/23 Urine Creatinine 49.19 mg/dL 10/31/22
== END 2023-03-21 12:09 | disposition home or self-care (01) ==
PROVIDERS: PCP Family Medicine; Visit Provider Internal Medicine Hypertension Specialist
DX: N18.5 Chronic kidney disease, stage 5 (principal); I12.0 Hypertensive chronic kidney disease with stage 5 chronic kidney disease or end stage renal disease; E83.51 Hypocalcemia; E89.2 Postprocedural hypoparathyroidism; E89.0 Postprocedural hypothyroidism; E87.6 Hypokalemia
CPT/HCPCS: 99214

== ENCOUNTER → 2023-03-21 11:44 | Outpatient (BNVA) | payer OTHER, SELFPAY | PROVIDERS: PCP Family Medicine; Visit Provider Internal Medicine Hypertension Specialist | DX: I12.9 Hypertensive chronic kidney disease with stage 1 through stage 4 chronic kidney disease, or unspecified chronic kidney disease (principal); N18.5 Chronic kidney disease, stage 5; E83.51 Hypocalcemia; E89.2 Postprocedural hypoparathyroidism; E89.0 Postprocedural hypothyroidism; E87.6 Hypokalemia | CPT/HCPCS: 99212 ==

== ENCOUNTER 2023-04-25 13:18 | Outpatient (AMB) | payer OTHER, SELFPAY ==
[2023-04-25 13:28] VITALS: BP 134/52; PULSE 65; O2SAT 100; BMI 27.1
--- NOTE | 2023-04-25 13:28 | HO.NEPHOV_ITS ---
HPI HPI Comments History of Present Illness Details Sarah is a 67-year-old woman who is well known to me. She has a longstanding history of diabetes mellitus complicated by chronic disease. She has advanced chronic kidney disease. Back in 2020 she was hospitalized and she spent some time in the ICU while she was critically ill. She sustained acute kidney injury at that time. She underwent extensive serological workup. Serum complement C3-C4 were low. Other serologies were unremarkable. She underwent a kidney biopsy which showed evidence of advanced diabetic nephropathy. There was no evidence of immune complex disease. She comes today for follow-up and accompanied by family member. Recent creatinine has been around 3.5 mg/dL. She denies any specific complaints like nausea vomiting or shortness of breath. She has lost some weight but her appetite has been good. No edema. She has history of significant hypokalemia and hypocalcemia for which she has been taking supplements. On January 21 she was sent to [facility] emergency room due to hypokalemia and she was treated in the ER and sent home. 03/21/2023. Here for follow-up. No specific complaints today. 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) Hypothyroidism associated with surgical procedure (~2008) Uncontrolled type 2 diabetes mellitus with hyperglycemia (~1986) Pneumonitis ARDS (adult respiratory distress syndrome) Neuropathy Asthma-COPD overlap syndrome Anemia HTN (hypertension) Hypercholesteremia Surgical History History of thyroidectomy History of back surgery History of 2 sections History of angioplasty History of amputation of left great toe Family History Mother Hypertension Diabetes Father AA (alcohol abuse) Social History Household Members: Other Housing: Apartment Do you presently have 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 or other home services: Yes Alcohol intake: never 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 Tobacco Use Status: Former Tobacco user Years Smoked: 45 Advance Directives Date on File: 09/13/20 service: No Current occupational status: disabled Vital Signs 04/25/23 13:28 Height 5 ft Weight 139 lb BMI 27.1 BP 134/52 L Blood Pressure Location Lt brachial Position Sitting Pulse 65 Pulse Source Pulse Oximeter Pulse Oximetry (%) 100 Oxygen Delivery Method Room Air Physical Exam Vital Signs: Last Vital Signs Pulse 65 04/25/23 13:28 BP 134/52 L 04/25/23 13:28 Pulse Ox 100 04/25/23 13:28 Oxygen Delivery Method Room Air 04/25/23 13:28 BMI result Body Mass Index 27.1 Const General: comfortable Nutritional Appearance: well nourished Orientation/consciousness: patient oriented x3 HEENT Head: No normal to inspection Mouth: moist mucous membranes Neck Neck: Yes supple and Yes no JVD Resp Auscultation: clear to auscultation bilaterally, no rales and rub present Cardio Jugular venous distension: no JVD Palpation: no palpable S3 and no palpable S4 Heart sounds: no rubs GI Palpation (GI): Soft to palpation and nontender Percussion: No Fluid wave present General: Yes no CVA tenderness Back/Spine/Pelvis Back: no CVA tenderness Skin General skin exam: no rashes or lesions noted Neuro General: patient oriented x3 Extrem General: Yes no pedal edema and No clubbing Assessment & Plan Assessment & Plan (1) CKD (chronic kidney disease) stage 5, GFR less than 15 ml/min: Code(s): N18.5 - Chronic kidney disease, stage 5 (2) HTN (hypertension): Code(s): I10 - Essential (primary) hypertension (3) Hypocalcemia: Code(s): E83.51 - Hypocalcemia (4) 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 At present she has no overt signs or symptoms of uremia or fluid overload. She is approaching end-stage renal disease. Goal is to slow the progression of renal disease. Continue to avoid nephrotoxins agents including NSAIDs. Maintain blood pressure less than 130/80 any A1c less than 7%. Will continue to watch renal function closely. 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 Check iron stores and reassess the need for erythropoietin replacement. Hypocalcemia in the setting of parathyroidectomy. we will continue with current calcium supplementation. She follows with Endocrinology History of hypokalemia she is on potassium supplementation. Potassium is in that normal range. Orders: Orders Comprehensive Met. Panel Today E89.2 - Postprocedural hypoparathyroidism, N18.5 - Chronic kidney disease, stage 5, N18.9 - Chronic kidney disease, unspecified Phosphorus Today E89.2 - Postprocedural hypoparathyroidism, N18.5 - Chronic kidney disease, stage 5 Complete Blood Count Auto Diff Today E89.2 - Postprocedural hypoparathyroidism, N18.30 - Chronic kidney disease, stage 3 unspecified, N18.5 - Chronic kidney disease, stage 5 Parathyroid Hormone Intact Today E89.2 - Postprocedural hypoparathyroidism, N18.5 - Chronic kidney disease, stage 5 Coding Level of Care Code Est Pt Level 4 (05269) Diagnoses CKD (chronic kidney disease) stage 5, GFR less than 15 ml/min N18.5 HTN (hypertension) I10 Hypocalcemia E83.51 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 removal of thyroid gland E89.2 Hypothyroidism associated with surgical procedure E89.0 Hypokalemia E87.6 Results Reviewed Nephrology Results: Hgb 8.9 g/dl (12.0-16.0) L 02/26/23 WBC 9.4 X10*3/uL (4.8-10.8) 02/26/23 Plt Count 173 X10*3/uL (160-400) 02/26/23 Sodium 140 mmol/L (135-145) 02/26/23 Potassium 4.2 mmol/L (3.3-5.1) 02/26/23 Chloride 107 mmol/L (96-108) 02/26/23 Carbon Dioxide 21 mmol/L (22-29) L 02/26/23 BUN 41 mg/dL (9-16) H 02/26/23 Creatinine 3.53 mg/dL (0.5-1.4) H 02/26/23 Calcium 6.6 mg/dL (8.4-10.2) L 02/26/23 Phosphorus 5.3 mg/dL (2.7-4.5) H 02/26/23 PTH Intact 135.0 pg/mL (8.7-77.1) H 02/26/23 Urine Creatinine 49.19 mg/dL 10/31/22
== END 2023-04-25 13:45 | disposition home or self-care (01) ==
PROVIDERS: PCP Family Medicine; Visit Provider Internal Medicine Hypertension Specialist
DX: N18.5 Chronic kidney disease, stage 5 (principal); I12.0 Hypertensive chronic kidney disease with stage 5 chronic kidney disease or end stage renal disease; E83.51 Hypocalcemia; E89.2 Postprocedural hypoparathyroidism; E89.0 Postprocedural hypothyroidism; E87.6 Hypokalemia
CPT/HCPCS: 99214

== ENCOUNTER 2023-04-25 13:18 | Outpatient (REF) | payer OTHER, SELFPAY ==
[2023-04-25 14:23] LABS: MANUAL DIFF FLAG NO
[2023-04-25 15:24] LABS: Basophils Absolute Auto 0.1 X10*3/uL (0.0-0.2); Basophils Percent Auto 0.7 % (0-2); Eosinophils Absolute Auto 0.4 X10*3/uL (0.0-0.4); Eosinophils Percent Auto 5.1 % (0-4); Hematocrit 28.5 % (37.0-47.0); Hemoglobin 8.6 g/dl (12.0-16.0); Imm Gran Abs Auto 0.03 X10*3/uL (0.00-0.03); Imm Gran Pct Auto 0.4 % (0.0-0.4); Lymphocytes Absolute Auto 1.3 X10*3/uL (1.2-4.9); Lymphocytes Percent Auto 18.2 % (20-40); Mean Corpuscular HGB Conc 30.2 g/dl (31.0-35.0); Mean Corpuscular Volume 89.3 fL (80.0-98.0); Mean Platelet Volume 10.6 fL (9.4-12.3); Monocytes Absolute Auto 0.7 X10*3/uL (0.1-1.2); Neutrophils Absolute Auto 4.5 x10*3/uL (2.0-8.3); Neutrophils Percent Auto 65.6 % (45-73); Platelet Count 129 X10*3/uL (160-400); Red Blood Count 3.19 X10*6/uL (4.20-5.50); Red Cell Distribution Width 16.5 % (11.0-16.0); White Blood Count 6.9 X10*3/uL (4.8-10.8)
[2023-04-25 16:14] LABS: Alanine Aminotransferase 13 U/L (0-31); Albumin Level 3.5 g/dL (3.5-5.0); Alkaline Phosphatase 79 U/L (39-117); Anion Gap 14 (12-20); Aspartate Amino Transferase 20 U/L (5-31); Bilirubin Total 0.3 mg/dL (0.0-1.0); Blood Urea Nitrogen 39 mg/dL (9-16); Calcium 7.2 mg/dL (8.4-10.2); Carbon Dioxide 23 mmol/L (22-29); Chloride 106 mmol/L (96-108); Estimated Glomerular Filt Rate 12; Glucose Random 94 mg/dL (60-115); Iron 32 mcg/dL (30-160); Percent Iron Saturation 12 % (15-50); Phosphorus 5.8 mg/dL (2.7-4.5); Sodium 139 mmol/L (135-145); Total Iron Binding Capacity 272 mcg/dL (228-428); Total Protein 7.5 g/dL (6.5-8.0); Unsaturated Iron Binding 240 ug/dL
[2023-04-25 16:18] LABS: Parathyroid Hormone Intact 165.2 pg/mL (8.7-77.1)
[2023-04-25 16:20] LABS: Ferritin 26 ng/mL (10-250)
== END 2023-04-25 13:19 | disposition home or self-care (01) ==
LOC: HO.LAB 13:18
PROVIDERS: PCP Family Medicine; Visit Provider Internal Medicine Hypertension Specialist
DX: I12.0 Hypertensive chronic kidney disease with stage 5 chronic kidney disease or end stage renal disease (principal); N18.5 Chronic kidney disease, stage 5; E89.2 Postprocedural hypoparathyroidism; E83.51 Hypocalcemia
CPT/HCPCS: 36415; 80053; 82728; 83540; 83970; 84100; 85025; 99212

== ENCOUNTER 2023-05-07 14:10 | Outpatient (REF) | payer OTHER, SELFPAY ==
--- NOTE | ~2023-05-07 | US_ITS ---
EXAMINATION: US arterial duplex LE BI, US BLANCHE complete CLINICAL INFORMATION: Peripheral vascular disease, unspecified COMPARISON: Arterial duplex 09/17/2022 TECHNIQUE: Ankle pulse volume recordings, ankle pressure measurements and ankle brachial indices were obtained of the lower extremity arterial system bilaterally in addition to duplex Doppler techniques with wave form analysis and measurement of velocities in the common femoral, profunda femoral, superficial femoral, popliteal, tibial and peroneal arteries. The study was performed only at rest. FINDINGS: RIGHT LE. THE RIGHT ANKLE-BRACHIAL INDEX IS: 0.79, previously 0.73. >0.97-1.25 = normal - no significant arterial disease 0.75-0.96 = mild peripheral arterial disease 0.5-0.74 = moderate peripheral arterial disease <0.50 = severe peripheral arterial disease <0.30 = critical arterial disease 2. SEGMENTAL PRESSURES (mmHg): Ankle: PT 131, DP 103 3. PVR WAVEFORMS: Ankle: Abnormal 4. DIRECT DUPLEX: Common femoral artery: 114.9 cm/s, biphasic Profunda femoris artery: 84.1 cm/s, biphasic Superficial femoral artery (proximal): 297 cm/s, monophasic Superficial femoral artery (mid): 123.4 cm/s, biphasic Superficial femoral artery (distal): 192.3 cm/s, monophasic Proximal Popliteal artery: 81.3 cm/s, biphasic Distal popliteal artery: 63.9 cm/s, biphasic Mid posterior tibial artery: 77.2 cm/s, monophasic Peroneal artery: 57.1 cm/s, monophasic LEFT LE. THE LEFT ANKLE-BRACHIAL INDEX IS: 1.23, previously 1.07. >0.97-1.25 = normal - no significant arterial disease 0.75-0.96 = mild peripheral arterial disease 0.5-0.74 = moderate peripheral arterial disease <0.50 = severe peripheral arterial disease <0.30 = critical arterial disease 2. SEGMENTAL PRESSURES: Ankle: PT 202, DP 205 3. PVR WAVEFORMS: Ankle: Abnormal 4. DIRECT DUPLEX: Common femoral artery: 189.5 cm/s, biphasic Profunda femoris artery: 90.9 cm/s, monophasic Superficial femoral artery: Ambler artery proximal to stent: 131.9 cm/sec, biphasic Proximal stent: 271.3 cm/sec, monophasic Right stent: 98.4 cm/sec, biphasic Distal stent: 124.4 cm/sec, biphasic Ambler artery distal to the stent: 87.5 cm/sec, biphasic Proximal Popliteal artery: 108.9 cm/s, monophasic Distal popliteal artery: 89.3 cm/s, monophasic Distal posterior tibial artery: 29.6 cm/s, monophasic Peroneal artery: 41.7 cm/s, monophasic Anterior tibial artery: 79.3 cm per sec, monophasic US/US arterial duplex LE BI IMPRESSION: RIGHT LEG: BLANCHE 0.79. There is elevated velocity in the proximal superficial femoral artery suggesting moderate stenosis. There is monophasic flow throughout the right lower extremity suggesting diffuse disease. LEFT LEG: BLANCHE 1.23. There is elevated velocity at the proximal aspect of the stent suggesting moderate stenosis, as before. The stent remains patent. Monophasic flow and elevated segmental pressures distal to the stent suggesting worsening peripheral arterial disease as compared to prior.
== END 2023-05-07 14:11 | disposition home or self-care (01) ==
LOC: HO.US 14:10
PROVIDERS: PCP Family Medicine; Visit Provider Surgery Vascular Surgery
DX: I73.9 Peripheral vascular disease, unspecified (principal)
CPT/HCPCS: 93923; 93925

== ENCOUNTER 2023-07-04 11:04 | Outpatient (AMB) | payer OTHER, SELFPAY ==
--- NOTE | 2023-07-04 11:08 | MHC.OFFVIS ---
Intake Visit Reasons: Follow Up 05/07 US Intake Note: Patient arrives for follow up 05/07 arterial US. Patient's left leg is visibly much more swollen than her left. Has some varicose veins on the left leg as well. Says her legs get swollen much more in the evening . Accompanied by: Grand Child Allergies ALLYSSA Inhibitors [ALLYSSA INHIBITORS] Allergy (Mild, Verified 07/04/23 11:11) COUGH cilostazol [CILOSTAZOL] Allergy (Mild, Verified 07/04/23 11:11) COUGH HPI HPI Follow Up 05/07 US: Details: Very pleasant 59-year-old female presents for follow-up regarding peripheral vascular disease. She had actually undergone intervention by us it back in 2020. She now reports that she has increasing cramping under the left leg when walking distances. She now presents for follow-up with noninvasive testing. 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) Hypothyroidism associated with surgical procedure (~2008) Uncontrolled type 2 diabetes mellitus with hyperglycemia (~1986) Pneumonitis ARDS (adult respiratory distress syndrome) Neuropathy Asthma-COPD overlap syndrome Anemia HTN (hypertension) Hypercholesteremia Surgical History History of thyroidectomy History of back surgery History of 2 sections History of angioplasty History of amputation of left great toe Family History Mother Hypertension Diabetes Father AA (alcohol abuse) Social History Household Members: Other Housing: Apartment Do you presently have 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 or other home services: Yes Alcohol intake: never 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 Tobacco Use Status: Former Tobacco user Years Smoked: 45 Advance Directives Date on File: 09/13/20 service: No Current occupational status: disabled Review of Systems Const All systems reviewed & are unremarkable except as noted in HPI and below Reports no additional complaints ENT Reports Normal hearing present Card Denies chest pain, Denies chest pain at rest, Denies chest pain with activity and Denies pedal edema Resp Denies cough GI Denies abdominal pain Musc Denies abnormal gait, Denies muscle cramps and Denies radiating pain into limb Skin/Breast Denies skin ulcer and Denies wounds Neuro Reports Normal hearing present and Denies abnormal gait Psych Reports no additional complaints Physical Exam Const General: cooperative, healthy appearing and comfortable Orientation/consciousness: oriented to person, oriented to place and oriented to time HEENT Head: Yes normal to inspection Neck Neck: Yes normal visual inspection Carotids: no bruits Chest Chest palpation & inspection: normal inspection of the chest Resp Effort & Inspection: normal respiratory effort and able to speak in complete sentences Auscultation: clear to auscultation bilaterally, no crackles, no rales, no rhonchi and no wheezes Cardio Other: Bilateral DP signals Rate: regular rate Rhythm: regular rhythm Heart sounds: S1 normal heart sound present and S2 normal heart sound present Bruits: no carotid bruits Peripheral pulses: Peripheral pulses 2+ throughout GI Inspection: Yes normal to inspection Skin Wounds: no wounds Hair: normal Neuro General: oriented to person, oriented to place and oriented to time Cranial nerves: Yes CN's II-XII intact bilaterally and Yes Normal hearing present Cognition (Neuro): normal cognition Motor exam (neuro): 5/5 motor strength present throughout Extrem Other: venous exam: No significant superficial varicosities or spider telangiectasias, minimal edema General: No clubbing, No cyanosis and No edema Psych Appearance: grossly normal Mental Status: mental status grossly normal Speech and movement: Normal speech and movement present Results Reviewed Results Reviewed: Arterial testing dated 05/07/2023 demonstrates BLANCHE on the right of 0.79 and on the left 1.23 but there is moderate to severe stenosis proximal to the stent. Assessment & Plan Assessment & Plan (1) PAD (peripheral artery disease): Comment: 06/27/2020 - left SFA atherectomy and stent, left popliteal plasty Code(s): I73.9 - Peripheral vascular disease, unspecified Category: Medical Plan: Patient notes leg pain when walking distances. I have discussed the pathophysiology of peripheral vascular disease with the patient. I have also discussed risk factor modification. I have reviewed the patient's arterial testing which reveals left SFA disease proximal to prior stent. the patient would benefit from a left leg endovascular peripheral angiogram with possible angioplasty, stent, and/or atherectomy. This has been discussed in detail with the patient along with risks, benefits, and complications. This includes but is not limited to bleeding, infection, heart attack, need for emergent surgical repair, limb ischemia, blood vessel damage, bleeding, puncture, kidney injury, bruising, allergic reaction, and skin reaction. The patient demonstrates a clear understanding. We will schedule for the next appropriate time. Thank you for allowing us to assist in this patient's care.
== END 2023-07-04 11:22 | disposition home or self-care (01) ==
PROVIDERS: PCP Family Medicine; Visit Provider Surgery Vascular Surgery
DX: I73.9 Peripheral vascular disease, unspecified (principal)
CPT/HCPCS: 99214

== ENCOUNTER → 2023-07-04 11:04 | Outpatient (BNVA) | payer OTHER, SELFPAY | PROVIDERS: PCP Family Medicine; Visit Provider Surgery Vascular Surgery | DX: I73.9 Peripheral vascular disease, unspecified (principal) | CPT/HCPCS: 99212 ==

== ENCOUNTER 2023-07-10 07:59 | Day surgery (SDC) | payer OTHER, SELFPAY ==
[2023-07-10] VITALS (9 sets, daily range): BP systolic 159–174; BP diastolic 70–81; PULSE 73–94; RESP 16–22; TEMP 36.6–36.7; O2SAT 94–100; BMI 35.2
[2023-07-10 08:39] LABS: MANUAL DIFF FLAG NO
[2023-07-10 08:47] LABS: Basophils Absolute Auto 0.1 X10*3/uL (0.0-0.2); Basophils Percent Auto 0.7 % (0-2); Eosinophils Absolute Auto 0.3 X10*3/uL (0.0-0.4); Eosinophils Percent Auto 4.6 % (0-4); Hematocrit 24.7 % (37.0-47.0); Hemoglobin 7.6 g/dl (12.0-16.0); Imm Gran Abs Auto 0.03 X10*3/uL (0.00-0.03); Imm Gran Pct Auto 0.4 % (0.0-0.4); Lymphocytes Percent Auto 12.8 % (20-40); Mean Corpuscular HGB Conc 30.8 g/dl (31.0-35.0); Mean Corpuscular Volume 87.6 fL (80.0-98.0); Mean Platelet Volume 9.9 fL (9.4-12.3); Monocytes Absolute Auto 0.7 X10*3/uL (0.1-1.2); Monocytes Percent Auto 9.4 % (2-11); Neutrophils Absolute Auto 5.3 x10*3/uL (2.0-8.3); Neutrophils Percent Auto 72.1 % (45-73); Platelet Count 134 X10*3/uL (160-400); Red Blood Count 2.82 X10*6/uL (4.20-5.50); Red Cell Distribution Width 17.3 % (11.0-16.0); White Blood Count 7.4 X10*3/uL (4.8-10.8)
[2023-07-10 08:54] LABS: Glucose, Whole Blood 72 mg/dL (60-115)
[2023-07-10 09:06] LABS: Blood Urea Nitrogen 43 mg/dL (9-16); Creatinine Clr Calc Pharmacy 12.4; Estimated Glomerular Filt Rate 11
--- NOTE | 2023-07-10 11:46 | P.OP_ITS ---
Operative Note Operative Note Date of Service: 07/10/23 Narrative: Angiogram report from [facility] Preoperative diagnosis: Atherosclerosis of left lower extremity with activity limiting claudication Postoperative diagnosis: Same Procedure: 1. Ultrasound-guided right common femoral access 2. Aortogram with left lower extremity runoff 3. Left SFA plasty Surgeon:David Butler M.D., FACS, RPVI Earth Sciences Professor:None Anesthesia: Local with moderate conscious sedation. Total intraservice moderate sedation time was 35 minutes. I monitored the patient's level of consciousness and physiologic status continuously throughout the procedure. Specimens:none Drains:none Estimated blood loss: Less than 10 ml Total contrast used: 30 ml Implant: Medtronic Impact DCB 5 x 40 Indications: 67-year-old female with a prior history of left SFA stenting presented on surveillance ultrasound with stenosis proximal to the stent. There was concern about elevated velocities. She now presents for endovascular intervention. The patient has signed the informed consent after reviewing risks, complications, benefits, and alternatives previously discussed with the patient. The patient was given the opportunity to ask any additional questions or voice any concerns. All questions were answered to the patient's satisfaction. Procedure in detail: Patient was brought to the angiography suite prior to which a time-out was called for patient identification and site verification. Bilateral groins were prepped and draped in the standard surgical fashion. Under ultrasound guidance right common femoral was punctured with micro puncture needle and wire. Subsequently a precision 4 Indian sheath was then placed. Bentson wire was advanced to the level of the aorta. 4 Indian Flush catheter was brought up and parked at the level of the renal arteries. Catheter was brought down to the level of the iliac bifurcation. Catheter was then brought in up and over to the left side SFA. Runoff study was then undertaken. It was recognized that she had stenosis proximal to stent and InStent restenoses. 5000 units of systemic heparin was administered. Up and over 6 Indian sheath was then placed. We advanced a Glidewire advantage through this area. We confirmed true lumen with a trail Blazer catheter. Once this was accomplished we then plasty this area originally with a 5 x 40 regular balloon. This was at the junction where the 2 stents met and proximal to the stents. Once this was accomplished we then used a drug coated balloon. This was brought to the junction level. This was brought into location in under 3 minutes and insufflated for a total of 3 minutes in duration. In a similar fashion at the proximal edge of the stent we plasty this with a 5 x 40 drug coated balloon as well. Once again it was brought into position in under 3 minutes and insuffla marcial for a total of 3 minutes in duration. Once this was all accomplished completion angiogram demonstrated good result catheter wire sheath was brought back to the ipsilateral side. Celt closure device was then deployed. Patient tolerated the procedure well. Returned to recovery with stable vitals. Interpretation of films: 1. Ultrasound demonstrates appropriate femoral puncture. Image of which was saved. 2. Left Leg Common femoral artery: No significant disease Profundus Femoris: No significant disease Superficial femoral artery: Stent throughout with disease proximal to it and InStent restenosis. Completion demonstrated good result after plasty Popliteal artery (p1,p2,p3): No significant disease Anterior tibial artery: Patent Peroneal artery: Patent order Posterior tibial artery: Patent origin Dorsalis pedis/plantar arch: Flow to ankle Conclusion: 1. Successful plasty of left SFA with DCB 2. Anticoagulation status: Will need 6 months of aspirin and Plavix This note is constructed using voice recognition software. While every effort has been made to ensure accuracy, apartment leasing consultant errors may have been included. Thank you for allowing me to participate in the care of your patient. Yours sincerely, David Butler MD, FACS, R.P.V.I.
[2023-07-10] MEDS: Albuterol/Iprat 2.5/0.5MG 3 ML AMPUL.NEB INHALE (13:06)
[2023-07-10] MEDS: oxyCODONE HCl Immed Release 5 MG TABLET PO (13:21)
[2023-07-10] MEDS: Acetaminophen 325 MG TABLET 650 MG PO (13:21)
== END 2023-07-10 13:56 | disposition home or self-care (01) ==
PROVIDERS: PCP Family Medicine; Visit Provider Surgery Vascular Surgery
DX: E11.51 Type 2 diabetes mellitus with diabetic peripheral angiopathy without gangrene (principal); I70.212 Atherosclerosis of native arteries of extremities with intermittent claudication, left leg; I83.92 Asymptomatic varicose veins of left lower extremity; M79.89 Other specified soft tissue disorders; G62.9 Polyneuropathy, unspecified; I10 Essential (primary) hypertension; J44.9 Chronic obstructive pulmonary disease, unspecified; J80 Acute respiratory distress syndrome; Z79.4 Long term (current) use of insulin; Z88.8 Allergy status to other drugs, medicaments and biological substances; Z98.890 Other specified postprocedural states; Z87.891 Personal history of nicotine dependence
CPT/HCPCS: 36415; 37224; 76937; 82565; 82947; 84520; 85025; 99152; 99153; A4364; C1725; C1760; C1769; C1887; C1894; C2623; J1644; J2250; J2310; J3010; Q9967

== ENCOUNTER → 2023-07-10 07:59 | Outpatient (BNV) | payer OTHER, SELFPAY | PROVIDERS: PCP Family Medicine; Visit Provider Surgery Vascular Surgery | DX: I70.212 Atherosclerosis of native arteries of extremities with intermittent claudication, left leg (principal) | CPT/HCPCS: 37224; 75625; 75710; 99152 ==

== ENCOUNTER 2023-07-22 13:49 | Outpatient (REF) | payer OTHER, SELFPAY ==
[2023-07-22 14:56] LABS: MANUAL DIFF FLAG NO
[2023-07-22 15:19] LABS: Basophils Percent Auto 0.7 % (0-2); Eosinophils Absolute Auto 0.3 X10*3/uL (0.0-0.4); Eosinophils Percent Auto 5.2 % (0-4); Hematocrit 21.8 % (37.0-47.0); Imm Gran Abs Auto 0.02 X10*3/uL (0.00-0.03); Imm Gran Pct Auto 0.3 % (0.0-0.4); Lymphocytes Absolute Auto 0.8 X10*3/uL (1.2-4.9); Mean Corpuscular HGB Conc 30.3 g/dl (31.0-35.0); Mean Corpuscular Hemoglobin 27.2 pg (27.0-33.0); Mean Corpuscular Volume 89.7 fL (80.0-98.0); Mean Platelet Volume 10.4 fL (9.4-12.3); Monocytes Absolute Auto 0.6 X10*3/uL (0.1-1.2); Monocytes Percent Auto 10.2 % (2-11); Neutrophils Absolute Auto 4.1 x10*3/uL (2.0-8.3); Neutrophils Percent Auto 70.6 % (45-73); Platelet Count 156 X10*3/uL (160-400); Red Blood Count 2.43 X10*6/uL (4.20-5.50); Red Cell Distribution Width 18.3 % (11.0-16.0); White Blood Count 5.8 X10*3/uL (4.8-10.8)
[2023-07-22 15:29] LABS: Hemoglobin 6.6 g/dl (12.0-16.0)
[2023-07-22 16:15] LABS: Parathyroid Hormone Intact 149.8 pg/mL (8.7-77.1)
[2023-07-22 16:29] LABS: Ferritin 51 ng/mL (10-250)
[2023-07-22 17:18] LABS: Anion Gap 16 (12-20); Blood Urea Nitrogen 58 mg/dL (9-16); Calcium 7.3 mg/dL (8.4-10.2); Carbon Dioxide 18 mmol/L (22-29); Chloride 113 mmol/L (96-108); Estimated Glomerular Filt Rate 9; Glucose Random 100 mg/dL (60-115); Iron 26 mcg/dL (30-160); Percent Iron Saturation 9 % (15-50); Potassium 4.3 mmol/L (3.3-5.1); Sodium 143 mmol/L (135-145); Total Iron Binding Capacity 279 mcg/dL (228-428); Unsaturated Iron Binding 253 ug/dL
== END 2023-07-22 13:50 | disposition home or self-care (01) ==
LOC: HO.LAB 13:49
PROVIDERS: PCP Family Medicine; Visit Provider Internal Medicine Hypertension Specialist
DX: I12.0 Hypertensive chronic kidney disease with stage 5 chronic kidney disease or end stage renal disease (principal); E87.6 Hypokalemia; E83.52 Hypercalcemia; N18.5 Chronic kidney disease, stage 5; E83.51 Hypocalcemia; E89.2 Postprocedural hypoparathyroidism; E89.0 Postprocedural hypothyroidism
CPT/HCPCS: 36415; 80048; 82728; 83540; 83970; 85025; 85027; 99212

== ENCOUNTER 2023-07-22 13:49 | Outpatient (AMB) | payer OTHER, SELFPAY ==
--- NOTE | 2023-07-22 13:50 | HO.NEPHOV_ITS ---
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 She has a longstanding history of diabetes mellitus complicated by chronic disease. She has advanced chronic kidney disease. Back in 2020 she was hospitalized and she spent some time in the ICU while she was critically ill. She sustained acute kidney injury at that time. She underwent extensive serological workup. Serum complement C3-C4 were low. Other serologies were unremarkable. She underwent a kidney biopsy which showed evidence of advanced diabetic nephropathy. There was no evidence of immune complex disease. She comes today for follow-up and accompanied by family member. Recent creatinine has been around 3.5 mg/dL. She denies any specific complaints like nausea vomiting or shortness of breath. She has lost some weight but her appetite has been good. No edema. She has history of significant hypokalemia and hypocalcemia for which she has been taking supplements. On January 21 she was sent to [facility] emergency room due to hypokalemia and she was treated in the ER and sent home. 03/21/2023. Here for follow-up. No specific complaints today. 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) Hypothyroidism associated with surgical procedure (~2008) Uncontrolled type 2 diabetes mellitus with hyperglycemia (~1986) Pneumonitis ARDS (adult respiratory distress syndrome) Neuropathy Asthma-COPD overlap syndrome Anemia HTN (hypertension) Hypercholesteremia Surgical History History of thyroidectomy History of back surgery History of 2 sections History of angioplasty History of amputation of left great toe Family History Mother Hypertension Diabetes Father AA (alcohol abuse) Social History Household Members: Other Housing: Apartment Do you presently have 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 or other home services: Yes Alcohol intake: never 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 Tobacco Use Status: Former Tobacco user Years Smoked: 45 Advance Directives Date on File: 09/13/20 service: No Current occupational status: disabled Physical Exam Vital Signs: Last Vital Signs Pulse 89 07/22/23 13:51 BP 148/60 H 07/22/23 13:51 Pulse Ox 96 07/22/23 13:51 Oxygen Delivery Method Room Air 07/22/23 13:51 BMI result Body Mass Index 33.0 Const General: comfortable Nutritional Appearance: well nourished Orientation/consciousness: patient oriented x3 HEENT Head: No normal to inspection Mouth: moist mucous membranes Neck Neck: Yes supple and Yes no JVD Resp Auscultation: clear to auscultation bilaterally, no rales and rub present Cardio Jugular venous distension: no JVD Palpation: no palpable S3 and no palpable S4 Heart sounds: no rubs GI Palpation (GI): Soft to palpation and nontender Percussion: No Fluid wave present General: Yes no CVA tenderness Back/Spine/Pelvis Back: no CVA tenderness Skin General skin exam: no rashes or lesions noted Neuro General: patient oriented x3 Extrem General: No clubbing and Yes edema Results Reviewed Nephrology Results: Hgb 7.6 g/dl (12.0-16.0) L 07/10/23 WBC 7.4 X10*3/uL (4.8-10.8) 07/10/23 Plt Count 134 X10*3/uL (160-400) L 07/10/23 Sodium 139 mmol/L (135-145) 04/25/23 Potassium 4.0 mmol/L (3.3-5.1) 04/25/23 Chloride 106 mmol/L (96-108) 04/25/23 Carbon Dioxide 23 mmol/L (22-29) 04/25/23 BUN 43 mg/dL (9-16) H 07/10/23 Creatinine 4.10 mg/dL (0.5-1.4) H* 07/10/23 Calcium 7.2 mg/dL (8.4-10.2) L 04/25/23 Phosphorus 5.8 mg/dL (2.7-4.5) H 04/25/23 PTH Intact 165.2 pg/mL (8.7-77.1) H 04/25/23 Assessment & Plan Assessment & Plan (1) CKD (chronic kidney disease) stage 5, GFR less than 15 ml/min: Code(s): N18.5 - Chronic kidney disease, stage 5 Category: Medical (2) HTN (hypertension): Code(s): I10 - Essential (primary) hypertension Category: Medical (3) Hypocalcemia: Code(s): E83.51 - Hypocalcemia Category: Medical (4) 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 At present she has no overt signs or symptoms of uremia She is approaching end-stage renal disease. Goal is to slow the progression of renal disease. Continue to avoid nephrotoxins agents including NSAIDs. Maintain blood pressure less than 130/80 any A1c less than 7%. Will continue to watch renal function closely. 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 Check iron stores and reassess the need for erythropoietin replacement. Hypocalcemia in the setting of parathyroidectomy. we will continue with current calcium supplementation. She follows with Endocrinology History of hypokalemia she is on potassium supplementation. Potassium is in that normal range. 07/22/23 Due to edema , i will stop Amlodipne Add LAsix 40 mg QD Low salt diet IF she fails to respond to Lasix , may need to discuss Renal replacement therapy Anemia workup including Iron studies ordered.- May need Epogen Orders: Orders Basic Metabolic Panel Today N18.5 - Chronic kidney disease, stage 5 IRON PROFILE Today N18.5 - Chronic kidney disease, stage 5 Parathyroid Hormone Intact Today N18.5 - Chronic kidney disease, stage 5 Complete Blood Count Auto Diff Today N18.30 - Chronic kidney disease, stage 3 unspecified, N18.5 - Chronic kidney disease, stage 5 Medications: New furosemide (Lasix) 40 mg PO DAILY 30 tabs 0RF Coding Level of Care Code Est Pt Level 4 (00178) Diagnoses CKD (chronic kidney disease) stage 5, GFR less than 15 ml/min N18.5 HTN (hypertension) I10 Hypocalcemia E83.51 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 removal of thyroid gland E89.2 Hypothyroidism associated with surgical procedure E89.0 Hypokalemia E87.6
[2023-07-22 13:51] VITALS: BP 148/60; PULSE 89; O2SAT 96; BMI 33.0
== END 2023-07-22 14:23 | disposition home or self-care (01) ==
PROVIDERS: PCP Family Medicine; Visit Provider Internal Medicine Hypertension Specialist
DX: N18.5 Chronic kidney disease, stage 5 (principal); I12.0 Hypertensive chronic kidney disease with stage 5 chronic kidney disease or end stage renal disease; E83.51 Hypocalcemia; E89.2 Postprocedural hypoparathyroidism; E89.0 Postprocedural hypothyroidism; E87.6 Hypokalemia
CPT/HCPCS: 99214

== ENCOUNTER 2023-07-23 12:38 | Outpatient (REF) | payer OTHER, SELFPAY ==
[2023-07-23 13:30] LABS: B Type Natriuretic Peptide 725 pg/mL (<100)
[2023-07-23 17:55] LABS: Free T4 (Free Thyroxine) 1.07 ng/dL (0.71-1.85); Thyroid Stimulating Hormone 3.79 uIU/mL (0.32-4.0)
== END 2023-07-23 12:39 | disposition home or self-care (01) ==
LOC: HO.HHCL 12:38
PROVIDERS: Visit Provider Family Medicine
DX: E89.0 Postprocedural hypothyroidism (principal); R09.89 Other specified symptoms and signs involving the circulatory and respiratory systems
CPT/HCPCS: 36415; 83880; 84439; 84443

== ENCOUNTER 2023-07-23 15:04 | Inpatient (IN) | payer OTHER, SELFPAY ==
--- NOTE | ~2023-07-23 | XR_ITS ---
EXAMINATION: XR CHEST CLINICAL INFORMATION: Shortness of breath. COMPARISON: CT chest dated 01/03/2023; chest radiograph dated 06/06/2022. TECHNIQUE: Frontal view of the chest was obtained. FINDINGS: The heart, great vessels, pulmonary vasculature and mediastinum are stable. There is pulmonary vascular congestion. There is a diffuse bilateral interstitial and alveolar pattern. No pleural effusion or pneumothorax is seen. There is no acute osseous abnormality. XR/XR chest 1V IMPRESSION: There is pulmonary vascular congestion, and a diffuse bilateral interstitial and alveolar pattern is seen. The findings are consistent with moderate congestive heart failure. An atypical viral pneumonia is a further differential consideration, and clinical correlation is recommended.
--- NOTE | ~2023-07-23 | US_ITS ---
EXAMINATION: US ABDOMEN COMPLETE CLINICAL INFORMATION: Thrombocytopenia, elevated transaminase. COMPARISON: Renal ultrasound 08/22/2020. CT abdomen and pelvis without contrast 06/13/2014. TECHNIQUE: Real-time imaging of the abdominal viscera. FINDINGS: PANCREAS: Visualized portions of the pancreas are unremarkable however portions are obscured by bowel gas limiting evaluation. ABDOMINAL AORTA: Visualized aorta is normal in caliber however portions are obscured by bowel gas. INFERIOR VENA CAVA: Visualized portions are normal. LIVER: Liver is borderline enlarged measuring 16.4 cm in span. The liver contour is normal. Parenchymal echogenicity is normal. No focal hepatic lesion. There is no intrahepatic biliary duct dilatation seen. GALLBLADDER: Cholelithiasis and gallbladder sludge. There is focal thickening of the wall of the gallbladder fundus and foci of ringdown artifact suggesting adenomyomatosis. No pericholecystic fluid. Gallbladder appears physiologically distended. COMMON BILE DUCT: Normal in caliber measuring 0.6 cm in diameter. RIGHT KIDNEY: Increased parenchymal echogenicity. 6 mm nonobstructing renal stone. No hydronephrosis or focal parenchymal lesions. The kidney measures 10.6 cm in maximum dimension. LEFT KIDNEY: Increased parenchymal echogenicity. Pelviectasis without adalid hydronephrosis. No renal calculi or focal parenchymal lesions. The kidney measures 11.7 cm in maximum dimension. SPLEEN: Normal. The spleen measures 9.9 cm in maximum dimension. FREE FLUID: None. US/US abdomen complete IMPRESSION: 1. Liver is borderline enlarged measuring 16.4 cm in span. 2. Cholelithiasis and gallbladder sludge. There is focal thickening of the wall of the gallbladder fundus and foci of ringdown artifact suggesting adenomyomatosis. No pericholecystic fluid or abnormal gallbladder distention to suggest acute cholecystitis. 3. Echogenic kidneys which can be seen in the setting of medical renal disease. 6 mm nonobstructing right renal stone. 4. Left renal pelviectasis without adalid hydronephrosis.
--- NOTE | 2023-07-23 15:20 | ECG_ITS ---
Test Reason : SOB Blood Pressure : / mmHG Vent. Rate : 101 BPM Atrial Rate : 101 BPM P-R Int : 158 ms QRS Dur : 082 ms QT Int : 390 ms P-R-T Axes : 061 049 108 degrees QTc Int : 505 ms Sinus tachycardia Otherwise normal ECG When compared to the previous EKG of No significant changes seen Referred By: Generic ED Physician Electronically Signed By:Paramjit Guido
--- NOTE | 2023-07-23 15:33 | ED_ITS ---
HPI - SOB/Dyspnea General Chief Complaint: Dyspnea Stated Complaint: SOB, swelling in legs - sent by Time Seen by Provider: 07/23/23 15:53 Source: patient and family Mode of arrival: wheelchair Limitations: no limitations History of Present Illness HPI Narrative: Patient is a 67-year-old female who presents emergency department coming from her primary care doctor's office for further evaluation and treatment. She has been experiencing shortness of breath, orthopnea, reported 30 lb weight gain over the past month. She was hypoxic on arrival at 86% on room air with increased work of bleeding, placed on O2 via nasal cannula. She reports having been seen by her food prep worker yesterday and she was started on Lasix which she took a single dose of yesterday as well as today. She reports that she stopped another medication that they thought might be contributing to her leg swelling. She admits to having a cough over the past month, nonproductive in nature. Denies fevers, chills, additional URI symptoms, chest pain, nausea, vomiting, numbness or tingling of the extremities. Related Data Home Medications ?Medication ?Instructions ?Recorded ?Confirmed cilostazol 100 mg tablet 100 mg PO BID@1200,2100 05/17/20 07/23/23 ferrous sulfate 325 mg (65 mg 1 tab PO QAM 05/17/20 07/23/23 iron) tablet blood sugar diagnostic (FreeStyle #10 ea 05/30/21 01/15/23 Lite Strips) insulin aspart U-100 100 unit/mL 8 unit subcut TIDAC 05/30/21 07/23/23 (3 mL) subcutaneous pen (Novolog FlexPen U-100 Insulin aspart) lancets 33 gauge (TRUEplus Lancets) #100 ea 05/30/21 01/15/23 cholecalciferol (vitamin D3) 50 50 mcg PO DAILY 04/24/22 07/23/23 mcg (2,000 unit) tablet dapagliflozin propanediol 5 mg 5 mg PO DAILY 04/24/22 07/23/23 tablet (Farxiga) linagliptin 5 mg tablet (Tradjenta) 5 mg PO DAILY@1200 04/24/22 07/23/23 potassium chloride 20 mEq 20 meq PO DAILY@1800 04/24/22 07/23/23 tablet,extended release(part/cryst) pen needle, diabetic 32 gauge x #50 ea 05/03/22 01/15/23 (Pentips) aspirin 81 mg tablet,delayed 81 mg PO DAILY@1200 06/20/22 07/23/23 release atorvastatin 80 mg tablet 80 mg PO BEDTIME 06/20/22 07/23/23 clopidogrel 75 mg tablet 75 mg PO QAM 06/20/22 07/23/23 metoprolol tartrate 25 mg tablet 25 mg PO BID 06/20/22 07/23/23 montelukast 10 mg tablet 10 mg PO BEDTIME 06/20/22 07/23/23 sertraline 25 mg tablet 25 mg PO DAILY 06/20/22 07/23/23 levothyroxine 150 mcg tablet 150 mcg PO DAILY 03/21/23 07/23/23 gabapentin 300 mg capsule 300 mg PO BEDTIME 04/25/23 07/23/23 budesonide-formoterol HFA 160 2 puff inhalation BID 07/23/23 07/23/23 mcg-4.5 mcg/actuation aerosol inhaler calcium carbonate (Calcium Antacid) 200 mg PO TID@1200,1800,2100 07/23/23 07/23/23 cetirizine 5 mg tablet 5 mg PO DAILY PRN allergies 07/23/23 07/23/23 insulin degludec 100 unit/mL (3 13 unit subcut DAILY@1400 PRN 07/23/23 07/23/23 mL) subcutaneous pen (Tresiba Hyperglycemia FlexTouch U-100 insulin) umeclidinium 62.5 mcg/actuation 1 inh inhalation QAM 07/23/23 07/23/23 blister powder for inhalation (Incruse Ellipta) Previous Rx's ?Medication ?Instructions ?Recorded calcitriol 0.25 mcg capsule 0.25 mcg PO BID #60 caps 01/20/23 furosemide 40 mg tablet (Lasix) 40 mg PO DAILY #30 tabs 07/22/23 Allergies Allergy/AdvReac Type Severity Reaction Status Date / Time ALLYSSA Inhibitors Allergy Mild COUGH Verified 07/23/23 15:37 [ALLYSSA INHIBITORS] cilostazol [CILOSTAZOL] Allergy Mild COUGH Verified 07/23/23 15:37 Review of Systems 2 Review of Systems: Yes all other systems are reviewed and are negative PMFSH Past Medical History Attestation statement: The following information was validated with the patient. 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) Hypothyroidism associated with surgical procedure (~2008) Uncontrolled type 2 diabetes mellitus with hyperglycemia (~1986) Pneumonitis ARDS (adult respiratory distress syndrome) Neuropathy Asthma-COPD overlap syndrome Anemia HTN (hypertension) Hypercholesteremia Surgical History History of thyroidectomy History of back surgery History of 2 sections History of angioplasty History of amputation of left great toe Family History Family History Mother Hypertension Diabetes Father AA (alcohol abuse) Social History Social History Household Members: Other Housing: Apartment Do you presently have 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 or other home services: Yes Alcohol intake: never 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 Tobacco Use Status: Former Tobacco user Years Smoked: 45 Smoked in Last 30 Days: No Use of substances other than those prescribed or required for medical reasons: No Advance Directives: Yes Advance Directives on File: Yes Advance Directives Date on File: 09/13/20 Do you have a plan to hurt others: No Plan Nutrition Risks: No Nutritional Risk service: No Current occupational status: disabled Physical Exam 2 Vital Signs: Vital Signs: Last Vital Signs Temp 98.3 F 07/23/23 19:43 Pulse 103 H 07/23/23 21:21 Resp 22 H 07/23/23 19:43 BP 172/79 H 07/23/23 21:21 Pulse Ox 100 07/23/23 21:15 O2 Del Method Oxymask 07/23/23 21:15 O2 Flow Rate 2 07/23/23 16:19 Oxygen Flow Rate 3 07/23/23 15:34 BMI result Body Mass Index 32.0 Appearance: Alert.?Oriented to person, place and time. No acute distress.?Normal affect. Eyes: Pupils equal, round and reactive to light.? ENT: Pharynx normal.?? Neck: Normal inspection.? Neck supple.?? CVS: Heart sounds normal. Normal heart rate and rhythm.? Pulses normal.?? Respiratory: No respiratory distress.? Lung sounds with expiratory wheezing in the bilateral upper lobes, rales bilateral lower lobes Abdomen: Soft and non-tender. Normoactive bowel sounds. Skin: Skin warm and dry.? Normal skin color.? ? Extremities: Anasarca, bilateral flank/bilateral lower extremities Neuro: Moves all extremities spontaneously. Sensation intact bilaterally. Course Course Course Narrative: This is a Rapid Medical Examination (RME) performed by Ricky Daly PA-C in triage. Full HPI, ROS, assessment and treatment plan per primary provider in the Main ED. 59-year-old female with history of HTN, HLD, PAD, CKD 5, DM2, CHF, anemia of chronic disease, requiring transfusions in the past who presents to the ER from her doctor's office for evaluation of shortness of breath, orthopnea, 30lb weight gain in 1 month with concern for CHF. On arrival to the ER patient was brought to triage tech for EKG, patient found to be hypoxic to 86% on room air. She was placed on 2 L nasal cannula with improvement in SpO2 to 92%, increased to 3L and SpO2 97%. Patient has bibasilar crackles on exam. Mild belly breathing present. She has pitting edema to her flanks bilaterally. Inclusion Teacher here started her on lasix yesterday. Plan: Chest x-ray, blood transfusion and diuresis, patient will require admission to the hospital. Medications Administered Generic Name Dose Route Start Last Admin Trade Name Freq PRN Reason Stop Dose Admin Atorvastatin Calcium 80 mg 07/23/23 21:07/23/23 21:20 Atorvastatin Calcium 80 Mg Tablet PO 80 mg BEDTIME JOEL Administration Calcitriol 0.25 mcg 07/23/23 21:00 07/23/23 21:25 Calcitriol 0.25 Mcg Capsule PO 0.25 mcg BID JOEL Administration Calcium Carbonate 500 mg 07/23/23 21:00 07/23/23 21:21 Calcium Carbonate 500 Mg Tablet PO 500 mg TID@1200,1800,2100 JOEL Administration Cilostazol 100 mg 07/23/23 21:00 07/23/23 21:25 Cilostazol 100 Mg Tablet PO 100 mg BID@1200,2100 JOEL Administration Gabapentin 300 mg 07/23/23 21:00 07/23/23 21:20 Gabapentin 300 Mg Capsule PO 300 mg BEDTIME JOEL Administration Heparin Sodium (Porcine) 5,000 unit 07/23/23 21:00 07/23/23 21:21 Heparin Sodium,Porcine 5,000 Unit/Ml Vial SUBCUT 5,000 unit Q12H JOEL Administration Metoprolol Tartrate 25 mg 07/23/23 21:00 07/23/23 21:21 Metoprolol Tartrate 25 Mg Tablet PO 25 mg BID JOEL Administration Protocol Montelukast Sodium 10 mg 07/23/23 21:00 07/23/23 21:21 Montelukast Sodium 10 Mg Tablet PO 10 mg BEDTIME JOEL Administration Sodium Chloride 3 ml 07/24/23 00:00 07/24/23 00:59 0.9 % Sodium Chloride Flush 3 Ml Syringe IVFLUSH 3 ml QSHIFT JOEL Administration Discontinued Medications Generic Name Dose Route Start Last Admin Trade Name Freq PRN Reason Stop Dose Admin Furosemide 80 mg 07/23/23 16:18 07/23/23 16:46 Furosemide 100 Mg/10 Ml Vial IVPUSH 07/23/23 16:19 80 mg ONCE ONE Administration Protocol Medical Decision Making Medical Decision Making [facility] Narrative: Patient is a 67-year-old female past medical history of CKD stage 5, ASCVD, QT prolongation, PID, hypertension, hyperlipidemia, type 2 diabetes, history of thyroid cancer s/p thyroidectomy presenting to emergency department for evaluation of shortness of breath anemia lower extremity swelling. Arrives tachycardic and tachypneic though I suspect that this is due to volume overload, at this time there is no evidence of infection she is without fever, reported infectious symptoms. Her elevated creatinine due to CKD. Upon review of her chart, she was seen by Nephrology yesterday, Dr. Bowden; decision was made for amlodipine to be DC and she was to begin furosemide which she reports compliance with. She had a recent aortogram with left SFA dilation, her preprocedural creatinine was 4.1 and hemoglobin 7.6, at that time iron studies are pending, and awaiting decision for Epogen. By patient's account, she is supposed to follow-up with Nephrology in 2 weeks to determine whether she will need to consider dialysis. Postprocedure labs yesterday revealed a hemoglobin of 6.6 and hematocrit 21.8. Upon presenting to her primary care doctor's office today they were concerned about her increasing shortness of breath, crackles on exam and weight gain, advised her to come to the emergency department for further evaluation and treatment. Repeat CBC today is without leukocytosis, normocytic anemia that appears back at baseline; hemoglobin 7.4 hematocrit 23.4 (iron stores unavailable at this time). She arrived to the emergency department hypoxic with room air O2 saturation down to 86%, with increased work of breathing, placed on 3 L via nasal cannula for O2 saturation to be above 95%. At this time plan to diurese with furosemide 80 mg IV, will defer PRBCs given current H&H. Plan for admission; acute hypoxemic respiratory failure suspected CHF exacerbation, anasarca, anemia Differential Diagnosis Differential Diagnoses: The differential diagnosis associated with the presentation includes (Anemia of chronic disease, iron deficiency anemia, CKD, CHF) Admission/Observation Consideration of admission/observation: Escalation of care including admission/observation considered (See narrative above) Consult Healthcare Provider Management of the patient was discussed with: Hospitalist (See course narrative) Lab Data MDM Lab Attestation statement: I reviewed the patient's lab results. (See narrative above) 07/23/23 15:52 07/23/23 15:52 Labs: Lab Results 07/23/23 07/23/23 07/23/23 Range/Units 15:52 15:53 16:01 WBC 8.1 (4.8-10.8) X10*3/uL RBC 2.66 L (4.20-5.50) X10*6/uL Hgb 7.4 L (12.0-16.0) g/dl Hct 23.4 L (37.0-47.0) % MCV 88.0 (80.0-98.0) fL MCH 27.8 (27.0-33.0) pg MCHC 31.6 (31.0-35.0) g/dl RDW 18.2 H (11.0-16.0) % Plt Count 164 (160-400) X10*3/uL MPV 10.1 (9.4-12.3) fL Immature Gran % (Auto) 0.6 H (0.0-0.4) % Neut % (Auto) 78.5 H (45-73) % Lymph % (Auto) 8.5 L (20-40) % Dawes % (Auto) 7.4 (2-11) % Eos % (Auto) 4.1 H (0-4) % Baso % (Auto) 0.9 (0-2) % Lymph # (Auto) 0.7 L (1.2-4.9) X10*3/uL Dawes # (Auto) 0.6 (0.1-1.2) X10*3/uL Eos # (Auto) 0.3 (0.0-0.4) X10*3/uL Baso # (Auto) 0.1 (0.0-0.2) X10*3/uL Abs Immat Gran (auto) 0.05 H (0.00-0.03) X10*3/uL Absolute Neuts (auto) 6.3 (2.0-8.3) x10*3/uL Absolute Nucleated RBC 0.000 (0.0-0.012) X10*3/uL Nucleated RBC % (auto) 0.0 (0.0-0.2) /100WBC VBG pH 7.34 (7.32-7.43) VBG pCO2 29 mmHg VBG pO2 80 mmHg VBG HCO3 16 L (22-26) mmol/L VBG O2 Saturation 96.0 % VBG Base Excess -8.4 mmol/L Sodium 143 (135-145) mmol/L Potassium 4.2 (3.3-5.1) mmol/L Chloride 111 H (96-108) mmol/L Carbon Dioxide 16 L (22-29) mmol/L Anion Gap 20 (12-20) BUN 65 H (9-16) mg/dL Creatinine 4.97 H* (0.5-1.4) mg/dL Estim Creat Clear Calc 9.7 Estimated GFR 9 Random Glucose 130 H (60-115) mg/dL Calcium 7.5 L (8.4-10.2) mg/dL Total Bilirubin 0.3 (0.0-1.0) mg/dL AST 34 H (5-31) U/L ALT 27 (0-31) U/L Alkaline Phosphatase 84 (39-117) U/L Troponin I High Sens 39.6 H D (<3.5-17.0) ng/L B-Natriuretic Peptide 723 H (<100) pg/mL Total Protein 8.4 H (6.5-8.0) g/dL Albumin 3.6 (3.5-5.0) g/dL Influenza Type A (PCR) NEGATIVE (Negative) Influenza Type B (PCR) NEGATIVE (Negative) RSV RNA Qual (PCR) NEGATIVE (Negative) SARS-CoV-2 RNA (RT-PCR) NEGATIVE (Negative) Blood Type A Negative Antibody Screen NEGATIVE Crossmatch See Detail Independent Interpretation I performed an independent interpretation of an: EKG and Plain X-Ray (Pulmonary congestion, no infiltrates) Interpretation: Rate: 101 Rhythm:? Sinus tachycardia [place]:? Normal Normal P waves.? Normal JULITO.?? Normal QRS complex.?? ST T wave :??No ST elevation, no ST depression, no T-wave inversion qTC: Prolonged; 505 (seen previously) prior studies:? 2022 The study has been interpreted contemporaneously by me. Radiology Impression Discussion of test interpretation with radiology: I have reviewed the radiologist's reading. Radiologist Impression: XR/XR chest 1V IMPRESSION: There is pulmonary vascular congestion, and a diffuse bilateral interstitial and alveolar pattern is seen. The findings are consistent with moderate congestive heart failure. An atypical viral pneumonia is a further differential consideration, and clinical correlation is recommended. Independent Historian Clinical information obtained from an independent historian. History obtained from or confirmed by: Other (Daughter present who confirms history) External Record Review External record reviewed: Outpatient record (See narrative above) Chronic Conditions Patient?s care impacted by: Other (CKD, CHF) Critical Care Time Critical Care Time Critical Care Time: Yes Total Critical Care Time: 40 Attestation: I personally attest to this critical care time spent taking care of the patient exclusive of all other billable procedures was approximately 40 minutes including initial evaluation of patient, ordering tests, x-ray interpretation, EKG interpretation, IV furosemide for acute CHF exacerbation, medical consultation, documentation, re-evaluation. Discharge Plan Discharge Clinical Impression: Acute hypoxemic respiratory failure, CKD (chronic kidney disease) stage 5, GFR less than 15 ml/min, Anemia, CHF exacerbation, Anasarca Patient Disposition: Admitted As Inpatient
[2023-07-23 15:34] VITALS: BP 166/81; PULSE 102; RESP 20; TEMP 36.6; O2SAT 97; BMI 32.0
[2023-07-23 15:58] LABS: MANUAL DIFF FLAG NO
[2023-07-23 16:05] LABS: Basophils Absolute Auto 0.1 X10*3/uL (0.0-0.2); Basophils Percent Auto 0.9 % (0-2); Eosinophils Absolute Auto 0.3 X10*3/uL (0.0-0.4); Eosinophils Percent Auto 4.1 % (0-4); Hematocrit 23.4 % (37.0-47.0); Hemoglobin 7.4 g/dl (12.0-16.0); Imm Gran Abs Auto 0.05 X10*3/uL (0.00-0.03); Imm Gran Pct Auto 0.6 % (0.0-0.4); Lymphocytes Absolute Auto 0.7 X10*3/uL (1.2-4.9); Lymphocytes Percent Auto 8.5 % (20-40); Mean Corpuscular HGB Conc 31.6 g/dl (31.0-35.0); Mean Corpuscular Hemoglobin 27.8 pg (27.0-33.0); Mean Platelet Volume 10.1 fL (9.4-12.3); Monocytes Absolute Auto 0.6 X10*3/uL (0.1-1.2); Monocytes Percent Auto 7.4 % (2-11); Neutrophils Absolute Auto 6.3 x10*3/uL (2.0-8.3); Neutrophils Percent Auto 78.5 % (45-73); Platelet Count 164 X10*3/uL (160-400); Red Blood Count 2.66 X10*6/uL (4.20-5.50); Red Cell Distribution Width 18.2 % (11.0-16.0); White Blood Count 8.1 X10*3/uL (4.8-10.8)
[2023-07-23 16:08] LABS: VBG Base Excess -8.4 mmol/L; VBG HCO3 16 mmol/L (22-26); VBG pCO2 29 mmHg; VBG pH 7.34 (7.32-7.43); VBG pO2 80 mmHg
[2023-07-23 16:09] LABS: Venous Blood Gas Refer to POC result
[2023-07-23 16:19] VITALS: BP 188/85; PULSE 103; RESP 24; TEMP 37.1; O2SAT 95
[2023-07-23 16:27] LABS: Alanine Aminotransferase 27 U/L (0-31); Albumin Level 3.6 g/dL (3.5-5.0); Alkaline Phosphatase 84 U/L (39-117); Anion Gap 20 (12-20); Aspartate Amino Transferase 34 U/L (5-31); Bilirubin Total 0.3 mg/dL (0.0-1.0); Blood Urea Nitrogen 65 mg/dL (9-16); Calcium 7.5 mg/dL (8.4-10.2); Carbon Dioxide 16 mmol/L (22-29); Chloride 111 mmol/L (96-108); Creatinine Clr Calc Pharmacy 9.7; Estimated Glomerular Filt Rate 9; Glucose Random 130 mg/dL (60-115); Potassium 4.2 mmol/L (3.3-5.1); Sodium 143 mmol/L (135-145); Total Protein 8.4 g/dL (6.5-8.0)
[2023-07-23 16:28] LABS: B Type Natriuretic Peptide 723 pg/mL (<100)
[2023-07-23 16:30] LABS: Troponin-I High Sensitivity 39.6 ng/L (<3.5-17.0)
--- NOTE | 2023-07-23 16:41 | MHC.EDTECH ---
Patient used commode and had bm
[2023-07-23] MEDS: Furosemide 100 MG/10 ML VIAL 80 MG IVPUSH (16:46)
[2023-07-23 17:24] LABS: Influenza A PCR NEGATIVE (Negative); Influenza B PCR NEGATIVE (Negative); Resp Syncy Virus RNA Qual PCR NEGATIVE (Negative); SARS COV2 PCR INHOUSE NEGATIVE (Negative)
--- NOTE | 2023-07-23 18:58 | PM.IMHP ---
History of Present Illness Date of Service: 07/23/23 Attending physician on admission: Guilherme Oakes Chief Complaint: dyspnea 67-year-old female with history of insulin-dependent type 2 diabetes, hypertension, hyperlipidemia, history of thyroid cancer s/p thyroidectomy with postsurgical hypothyroidism and hypoparathyroidism, CKD stage 5, CAD, and asthma/COPD overlap syndrome presented to the ED from PCP office for evaluation of dyspnea on exertion, orthopnea, bilateral lower extremity edema, 30 lb weight gain over the past month. She has a dry cough but no fevers, chills, st, congestion, abd pain, n/v/d, palpitations, lighteadedness, headache, or chest pain. She was noted to be hypoxic on arrival at 86% on room air with increased work of breathing and placed on 3 L supplemental O2 via nasal cannula. She was also seen by her manager electrical yesterday was started on Lasix which she took yesterday and today without much improvement. She has had discussions about hemodialysis but has not yet started this. She also underwent left SFA plasty with aortogram on 07/11 with vascular surgery and has open wound that appers clean without surrounding erythema or warmth (right femoral access used). Since arrival, has been hypertensive to 188/85 and tachycardic to 103 with mild tachypnea. She was hypoxic and placed on 3 L supplemental O2 maintain a oximetry 95%. There is no leukocytosis. Has a chronic normocytic anemia with baseline H/H today of 7.4/73.4%. Creatinine 4.97, consistent wt patient's ckd, bun 65. Lytes normal except CO2 16, calcium 7.5. VBG reassuring with ph 7.34, pco2 29, hco3 16. Initial trop 39.6, repeat pending. BNP 723. Negative for COVID-19, RSV, influenza. Chest x-ray shows pulmonary vascular congestion and diffuse bilateral interstitial and alveolar pattern findings consistent with moderate congestive heart failure. In the ED, given 80 mg Lasix. Review of Systems Review of Systems: General: No fevers, malaise, unintentional weight loss HEENT: No blurred vision, diplopia. No sore throat, nasal congestion, rhinorrhea, sinus pain, ear pain Cardiovascular: No chest pain, palpitations. +ble edema, +weight gain Respiratory: +herman, +cough, +wheezing. GI: No abdominal pain, nausea, vomiting, diarrhea, constipation, melena, hematochezia : No dysuria, hematuria, increased urinary frequency, decreased urinary output MSK: No myalgia, back pain Neuro: No headaches, weakness, paresthesias Skin: No rashes or lesions [facility] Medical History Hypocalcemia Nicotine dependence, cigarettes, uncomplicated Atherosclerotic cardiovascular disease Thyroid cancer (~2008) 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) Hypothyroidism associated with surgical procedure (~2008) Uncontrolled type 2 diabetes mellitus with hyperglycemia (~1986) Pneumonitis ARDS (adult respiratory distress syndrome) Neuropathy Asthma-COPD overlap syndrome Anemia HTN (hypertension) Hypercholesteremia Family History Mother Hypertension Diabetes Father AA (alcohol abuse) Surgical History History of thyroidectomy History of back surgery History of 2 sections History of angioplasty History of amputation of left great toe Social History Household Members: Other Housing: Apartment Do you presently have 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 or other home services: Yes Alcohol intake: never 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 Tobacco Use Status: Former Tobacco user Years Smoked: 45 Advance Directives: Yes Advance Directives on File: Yes Advance Directives Date on File: 09/13/20 service: No Current occupational status: disabled Meds Allergies Allergy/AdvReac Type Severity Reaction Status Date / Time ALLYSSA Inhibitors Allergy Mild COUGH Verified 07/23/23 15:37 [ALLYSSA INHIBITORS] cilostazol [CILOSTAZOL] Allergy Mild COUGH Verified 07/23/23 15:37 Active Medications: Current Medications Acetaminophen (Acetaminophen 325 Mg Tablet) 650 mg PO Q6H PRN PRN Reason: Pain, Mild (Pain Scale 1-3) Furosemide (Furosemide 40 Mg/4 Ml Vial) 40 mg IVPUSH DAILY JOEL; Protocol Ondansetron HCl (Ondansetron Hcl 4 Mg/2 Ml Vial) 4 mg IVPUSH Q8H PRN PRN Reason: Nausea and Vomiting Senna (Sennosides 8.6 Mg Tablet) 17.2 mg PO BEDTIME PRN PRN Reason: Constipation Sodium Chloride (0.9 % Sodium Chloride Flush 3 Ml Syringe) 3 ml IVFLUSH QSHIFT [facility] Home Medications ?Medication ?Instructions ?Recorded ?Confirmed ?Last Taken ?Type cilostazol 100 mg tablet 100 mg PO BID@1200,2100 05/17/20 07/23/23 08/17/20 20:00 History ferrous sulfate 325 mg (65 mg 1 tab PO QAM 05/17/20 07/23/23 08/17/20 08:30 History iron) tablet blood sugar diagnostic (FreeStyle #10 ea 05/30/21 01/15/23 Unknown History Lite Strips) insulin aspart U-100 100 unit/mL 8 unit subcut TIDAC 05/30/21 07/23/23 Unknown History (3 mL) subcutaneous pen (Novolog FlexPen U-100 Insulin aspart) lancets 33 gauge (TRUEplus Lancets) #100 ea 05/30/21 01/15/23 Unknown History cholecalciferol (vitamin D3) 50 50 mcg PO DAILY 04/24/22 07/23/23 Unknown History mcg (2,000 unit) tablet dapagliflozin propanediol 5 mg 5 mg PO DAILY 04/24/22 07/23/23 Unknown History tablet (Farxiga) linagliptin 5 mg tablet (Tradjenta) 5 mg PO DAILY@1200 04/24/22 07/23/23 Unknown History potassium chloride 20 mEq 20 meq PO DAILY@1800 04/24/22 07/23/23 Unknown History tablet,extended release(part/cryst) pen needle, diabetic 32 gauge x #50 ea 05/03/22 01/15/23 Unknown History (Pentips) aspirin 81 mg tablet,delayed 81 mg PO DAILY@1200 06/20/22 07/23/23 Unknown History release atorvastatin 80 mg tablet 80 mg PO BEDTIME 06/20/22 07/23/23 Unknown History clopidogrel 75 mg tablet 75 mg PO QAM 06/20/22 07/23/23 Unknown History metoprolol tartrate 25 mg tablet 25 mg PO BID 06/20/22 07/23/23 Unknown History montelukast 10 mg tablet 10 mg PO BEDTIME 06/20/22 07/23/23 Unknown History sertraline 25 mg tablet 25 mg PO DAILY 06/20/22 07/23/23 Unknown History levothyroxine 150 mcg tablet 150 mcg PO DAILY 03/21/23 07/23/23 Unknown History gabapentin 300 mg capsule 300 mg PO BEDTIME 04/25/23 07/23/23 Unknown History budesonide-formoterol HFA 160 2 puff inhalation BID 07/23/23 07/23/23 Unknown History mcg-4.5 mcg/actuation aerosol inhaler calcium carbonate (Calcium Antacid) 200 mg PO TID@1200,1800,2100 07/23/23 07/23/23 Unknown History cetirizine 5 mg tablet 5 mg PO DAILY PRN allergies 07/23/23 07/23/23 Unknown History insulin degludec 100 unit/mL (3 13 unit subcut DAILY@1400 PRN 07/23/23 07/23/23 Unknown History mL) subcutaneous pen (Tresiba Hyperglycemia FlexTouch U-100 insulin) umeclidinium 62.5 mcg/actuation 1 inh inhalation QAM 07/23/23 07/23/23 Unknown History blister powder for inhalation (Incruse Ellipta) Physical Exam Vital Signs and Narrative: Vital Signs: Last Vital Signs Temp 98.7 F 07/23/23 16:19 Pulse 103 H 07/23/23 16:19 Resp 24 H 07/23/23 16:19 BP 188/85 H 07/23/23 16:19 Pulse Ox 95 07/23/23 16:19 O2 Del Method Nasal Cannula 07/23/23 16:19 O2 Flow Rate 2 07/23/23 16:19 Oxygen Flow Rate 3 07/23/23 15:34 BMI result Body Mass Index 32.0 Constitutional - Awake and Alert, No apparent distress Eyes - PERRLA, EOMI Cardiovascular - S1S2, RRR, 3+ ble and bue edema, anasarca Respiratory - Normal lung expansion, Normal respiratory effort, No respiratory distress on 3L supplemental O2, diffuse rhonchi bilaterally Gastrointestinal - NT / ND; +BS; No rebound or guarding Extremities - no calf tenderness bilaterally, no swelling Skin - Warm/Dry Neurological - Alert & oriented x3 Psychological - Appropriate affect Results Labs 07/23/23 15:52 07/23/23 15:52 Labs: Laboratory Results - last 24 hr 07/23/23 07/23/23 07/23/23 15:52 15:53 16:01 MCV 88.0 MCH 27.8 MCHC 31.6 RDW 18.2 H Plt Count 164 MPV 10.1 Immature Gran % (Auto) 0.6 H Neut % (Auto) 78.5 H Lymph % (Auto) 8.5 L Hamlin % (Auto) 7.4 Eos % (Auto) 4.1 H Baso % (Auto) 0.9 Lymph # (Auto) 0.7 L Hamlin # (Auto) 0.6 Eos # (Auto) 0.3 Baso # (Auto) 0.1 Abs Immat Gran (auto) 0.05 H Absolute Neuts (auto) 6.3 Absolute Nucleated RBC 0.000 Nucleated RBC % (auto) 0.0 VBG pH 7.34 VBG pCO2 29 VBG pO2 80 VBG HCO3 16 L VBG O2 Saturation 96.0 VBG Base Excess -8.4 Anion Gap 20 Estim Creat Clear Calc 9.7 Estimated GFR 9 Random Glucose 130 H Calcium 7.5 L Total Bilirubin 0.3 AST 34 H ALT 27 Alkaline Phosphatase 84 Troponin I High Sens 39.6 H D B-Natriuretic Peptide 723 H Total Protein 8.4 H Albumin 3.6 Influenza Type A (PCR) NEGATIVE Influenza Type B (PCR) NEGATIVE RSV RNA Qual (PCR) NEGATIVE SARS-CoV-2 RNA (RT-PCR) NEGATIVE Blood Type A Negative Antibody Screen NEGATIVE Crossmatch See Detail Imaging Radiologist's Impressions: Impressions Chest X-Ray 07/23/23 16:15 IMPRESSION: There is pulmonary vascular congestion, and a diffuse bilateral interstitial and alveolar pattern is seen. The findings are consistent with moderate congestive heart failure. An atypical viral pneumonia is a further differential consideration, and clinical correlation is recommended. Assessment and Plan (1) CKD (chronic kidney disease) stage 5, GFR less than 15 ml/min: Status: Acute (2) CHF exacerbation: Status: Acute (3) Anasarca: Status: Acute Plan 67-year-old female with history of insulin-dependent type 2 diabetes, hypertension, hyperlipidemia, history of thyroid cancer s/p thyroidectomy with postsurgical hypothyroidism and hypoparathyroidism, CKD stage 5, CAD, and asthma/COPD overlap syndrome admitted for further management of CHF exacerbation and anasarca related to ESRD #Acute a CHF exacerbation with acute hypoxemic respiratory failure -30 lb weight gain at home in the last month, dyspnea on exertion, orthopnea, anasarca -in the setting of esrd -CXR shows evidence of moderate CHF with pulmonary vascular congestion. BNP elevated at 800 -given 80 mg IV Lasix in the ED. Continue 40 mg IV Lasix daily -cardiac diet -strict I&O -daily weights -cardiology consult -continue supplemental O2 and wean as tolerated per protocol -follow renal function/lytes #Anasarca -r/t above/esrd -plan as above -nephrology consult #CKD stage 5/ESRD not yet on HD -creatinine 4.97, BUN 65 -electrolytes normal except CO2 16, no indication for emergent dialysis -nephrology consult -avoid nephrotoxins -follow renal function/lytes #Wound R groin -s/p left SFA plasty/aortogram with right sided access -no evidence of acute infection. No sepsis -wound rn consult #SIRS criteria -tachycardia and tachypnea r/t respiratory distress in setting of volume overload. No evidence of infection. no sepsis #chornic normocytic anemia -h/h baseline, above transfusion threshold. Keep hgb >7.0 -follow h/h # insulin-dependent type 2 diabetes without hyperglycemia -dose adjusted basal insulin -POC glucose, diabetic diet -Admelog on sliding scale -hold oral antihyperglycemics # hypertension -continue metoprolol # COPD -no acute exacerbation -albuterol p.r.n.-continue maintenance inhalers # postoperative hypothyroidism with history of unspecified thyroid cancer -continue levothyroxine # PAD -s/p left SFA plasty and aortogram on 07/11 with wound to R groin without evidence of infection -continue DAPT, cilostazol #CAD/HLD -continue asa, bb, statin -no chest pain dvt prophylaxis- heparin Full code Patient requires inpatient stay at least 2 midnights for management of acute CHF exacerbation/anasarca in setting of ESRD requiring IV diuresis, expert consultation, and possible HD Quality Stroke Does the patient have a stroke diagnosis?: No VTE Prior VTE?: No VTE Risk Level:: Medical - moderate - high VTE Device Contraindication: Treatment Not Indicated VTE Drug Contraindication: N/A - Med Ordered
--- NOTE | 2023-07-23 19:11 | PHA.MEDREC ---
Pharmacy Consult ? Medication Reconciliation Pharmacy has completed the medication reconciliation. Patient had list of med[facility] medications. Confirmed insulin as Novolog TIDAC and Humalog sometimes around 1400 or 1500 if needed. Patient reports that the lasix is a new prescription. Chayo Kumar, PharmD
--- NOTE | 2023-07-23 19:26 | MHC.EDTECH ---
Patient given dinner tray
[2023-07-23 19:43] VITALS: BP 166/68; PULSE 102; RESP 22; TEMP 36.8; O2SAT 97
[2023-07-23 20:27] LABS: Troponin-I High Sensitivity 40.5 ng/L (<3.5-17.0)
[2023-07-23 21:15] VITALS: O2SAT 100
[2023-07-23] MEDS: Gabapentin 300 MG CAPSULE PO (21:20)
[2023-07-23] MEDS: Atorvastatin Calcium 80 MG TABLET PO (21:20)
[2023-07-23 21:21] VITALS: BP 172/79; PULSE 103
[2023-07-23] MEDS: Heparin Sodium,Porcine 5,000 UNIT/ML VIAL 5000 UNIT SUBCUT (21:21)
[2023-07-23] MEDS: Montelukast Sodium 10 MG TABLET PO (21:21)
[2023-07-23] MEDS: Metoprolol Tartrate 25 MG TABLET PO (21:21)
[2023-07-23] MEDS: calcitrioL 0.25 MCG CAPSULE PO (21:25)
[2023-07-23] MEDS: cilostazoL 100 MG TABLET PO (21:25)
[2023-07-24] VITALS (16 sets, daily range): BP systolic 125–178; BP diastolic 62–77; PULSE 78–92; RESP 12–22; TEMP 36.4–37.2; O2SAT 94–100
[2023-07-24] MEDS: 0.9 % Sodium Chloride Flush 3 ML SYRINGE IVFLUSH (00:59)
[2023-07-24 05:47] LABS: MANUAL DIFF FLAG NO
[2023-07-24 05:50] LABS: Basophils Absolute Auto 0.1 X10*3/uL (0.0-0.2); Basophils Percent Auto 0.7 % (0-2); Eosinophils Absolute Auto 0.2 X10*3/uL (0.0-0.4); Eosinophils Percent Auto 2.1 % (0-4); Hematocrit 21.6 % (37.0-47.0); Imm Gran Abs Auto 0.03 X10*3/uL (0.00-0.03); Imm Gran Pct Auto 0.4 % (0.0-0.4); Lymphocytes Absolute Auto 0.6 X10*3/uL (1.2-4.9); Lymphocytes Percent Auto 7.7 % (20-40); Mean Corpuscular HGB Conc 30.6 g/dl (31.0-35.0); Mean Corpuscular Hemoglobin 27.5 pg (27.0-33.0); Monocytes Absolute Auto 0.5 X10*3/uL (0.1-1.2); Monocytes Percent Auto 6.7 % (2-11); Neutrophils Absolute Auto 5.9 x10*3/uL (2.0-8.3); Neutrophils Percent Auto 82.4 % (45-73); Platelet Count 146 X10*3/uL (160-400); Red Cell Distribution Width 18.3 % (11.0-16.0); White Blood Count 7.2 X10*3/uL (4.8-10.8)
[2023-07-24 06:08] LABS: Anion Gap 19 (12-20); Blood Urea Nitrogen 69 mg/dL (9-16); Calcium 7.1 mg/dL (8.4-10.2); Carbon Dioxide 16 mmol/L (22-29); Chloride 111 mmol/L (96-108); Estimated Glomerular Filt Rate 9; Glucose Random 146 mg/dL (60-115); Hemoglobin 6.6 g/dl (12.0-16.0); Potassium 4.1 mmol/L (3.3-5.1); Sodium 142 mmol/L (135-145)
--- NOTE | 2023-07-24 07:00 | CA_ITS ---
Transthoracic Echocardiogram Patient (Last, First, Middle): Sarah Jones N Gender: Female Date of : 1955 Age: 67 Procedure Date: 07/24/2023 Procedure Type: Transthoracic Echocardiogram [place] [facility] [place]: 152.4 cm Weight: 74.39 kg BSA: 1.72 m2 Heart Rate: bpm BP: 173 / 82 mmHg Premium Representative: Referring MD: Dolores BOJORQUEZ Symptoms: chf Study Quality: Adequate ECG Rhythm: Sinus Conclusions: - Mildly increased left ventricular cavity size. There is mildly increased left ventricular wall thickness. The left ventricular systolic function is mild to moderately decreased. The visually estimated ejection fraction is between 35-40%. - The basal inferior and mid inferior segments are hypokinetic. - Mildly increased right ventricular cavity size. There is normal right ventricular systolic function. - The left atrium is severely dilated. - The right ventricular systolic pressure is 71 mmHg. Significantly elevated right atrial pressure. Severe pulmonary hypertension is present. Findings Left Ventricle Mildly increased left ventricular cavity size. There is mildly increased left ventricular wall thickness. The left ventricular systolic function is mild to moderately decreased. The visually estimated ejection fraction is between 35-40%. There is evidence of regional wall motion abnormalities. Abnormal diastolic function is noted. Spectral Doppler is indicative of a pseudonormal filling pattern. E/E prime ratio is between 8 and 15 consistent with indeterminate filling pressures. Wall Motion Rest Echo Findings The basal inferior and mid inferior segments are hypokinetic. Right Ventricle Mildly increased right ventricular cavity size. There is normal right ventricular systolic function. Atria The left atrium is severely dilated. Aortic Valve Normal aortic valve structure and function. There is no aortic valve stenosis. There is no aortic valve regurgitation. Mitral Valve The mitral valve appears normal. There is mild to moderate mitral valve regurgitation. There is no mitral valve stenosis. Pulmonic Valve The pulmonic valve is normal. There is no pulmonic valve regurgitation. Tricuspid Valve Normal tricuspid valve structure. There is moderate tricuspid valve regurgitation. The right ventricular systolic pressure is 71 mmHg. Significantly elevated right atrial pressure. Severe pulmonary hypertension is present. Great Vessels There is mild dilatation of the ascending aorta measuring 3.40 cm. Venous The inferior vena cava is dilated and does not collapse with inspiration. Pericardium/Pleural There is no evidence of pericardial effusion. Prior Study Comparison Changes noted compared to prior study dated: 08/26/2020. EF 35-40%, inferior hypokinesis, severe pulmonary hypertension. Measurements 2D Linear Measurements IVSd: 1.15 0.6-0.9/0.6-1.0 cm LVIDd: 5.46 3.9-5.3/4.2-5.9 cm LVIDd Index: 3.17 2.4-3.2/2.2-3.1 cm/m2 LVIDs: 3.90 2.0-3.6 cm LVPWd: 1.16 0.7-1.1 cm Ao Root: 3.00 2.1-3.5 cm LA Diam: 4.60 2.7-3.8/3.0-4.0 cm LAIDs Index: 2.67 1.5-2.3 cm/m2 LV Mass: 318.58 67-162/88-224 g LV Mass Index: 185.22 43-95/49-115 g/m2 LVOT Diam: 2.00 3.0+(-)1.3 cm 2D Systolic Function EF 4C: 18.00 >55% EF 2C: 36.10 >55% Mitral Valve MV Pk E: 1.18 MV PK A: 0.88 MV Decel Time: 128.00 E/A: 1.30 E'Lateral: 12.60 E'Medial: 5.66 E/E' Med: 20.80 E/E' Lat: 9.40 PHT: 37.00 MVA PHT: 5.95 Decel Ada: 9.26 MR Vol - PW Dopp: 31.80 MR VTI: 1.59 MR ERO: 20.00 MR Alias Arthur: 0.43 MR RAD: 0.60 Aortic Valve AoV Pk Arthur: 1.39 AoV Mn Arthur: 1.07 AoV VTI: 0.33 AoV Pk Grad: 8.00 Aov Mn Grad: 5.00 KAM Cont.VTI: 1.82 LVOT LVOT Pk Arthur: 0.89 LVOT Mn Arthur: 0.60 LVOT VTI: 0.19 LVOT Pk Grad: 3.00 LVOT Mn Grad: 2.00 LVOT Diam: 2.00 LVOT Area: 3.14 Diastolic Function MV Pk E: 1.18 MV Pk A: 0.88 E/A: 1.30 E'Medial: 5.66 E/E' Med: 20.80 E' Laterial: 12.60 E/E' Lat: 9.40 Right Ventricle TAPSE (mm): 23.00 TVS' Arthur: 12.00 Tricuspid Valve TR Pk Arthur: 3.75 TR Pk Grad: 56.00 RA Press: 15.00 RVSP: 71.00 Great Vessels Aorta Ao Root-2D: 3.00 2.0-3.7 cm Ao Asc: 3.40 2.1-3.4 cm Pulmonary Valve PV Pk Arthur: 0.95 Peak PV Grad: 4.00 Updated in Other Vendor System with Status of Final Paramjit Guido MD electronically signed on 07/24/2023 1:33:01 PM with status of Final
[2023-07-24] MEDS: Fluticasone/Vilanterol 200/25 BLST.W.DEV 1 PUFF INHALE (07:29)
[2023-07-24] MEDS: Tiotropium Bromide 2.5 mcg 1 PUFF/2.5 MCG MIST.INHAL 2 PUFF INHALE (07:29)
--- NOTE | 2023-07-24 07:30 | HO.PM.IMPN ---
Subjective Subjective Date of Service: 07/24/23 Interval History: Seen in follow up for chf exacerbation, anasarca Interval history: Reports improvement in sob, weaned to 2L via NC. Continues with orthopnea. -870ml output. Worsening anemia H.H 6.6/21.6% Review of Systems Review of Systems: Yes all other systems are reviewed and are negative Physical Exam Vital Signs: Vital Signs: Last Vital Signs Temp 97.7 F 07/24/23 07:25 Pulse 83 07/24/23 07:25 Resp 22 H 07/24/23 07:25 BP 138/66 07/24/23 07:25 Pulse Ox 100 07/24/23 07:25 O2 Del Method Oxymask 07/24/23 07:25 O2 Flow Rate 2 07/24/23 07:25 Oxygen Flow Rate 3 07/23/23 15:34 BMI result Body Mass Index 32.0 Constitutional - Awake and Alert, No apparent distress Eyes - PERRLA, EOMI Cardiovascular - S1S2, RRR, 3+ ble edema Respiratory - Normal lung expansion, Normal respiratory effort, No respiratory distress on 2L supplemental o2 via nc. Scattered expiratory wheezing wtih crackles lower lobes Gastrointestinal - NT / ND; +BS; No rebound or guarding Extremities - no calf tenderness bilaterally, no swelling Skin - Warm/Dry Neurological - Alert & oriented x3 Psychological - Appropriate affect Objective Data Active Medications Acetaminophen (Acetaminophen 325 Mg Tablet) 650 mg PO Q6H PRN PRN Reason: Pain, Mild (Pain Scale 1-3) Aspirin (Aspirin Enteric Coated 81 Mg Tablet.) 81 mg PO DAILY@1200 [facility] Atorvastatin Calcium (Atorvastatin Calcium 80 Mg Tablet) 80 mg PO BEDTIME [facility] Last Admin: 07/23/23 21:20 Dose: 80 mg Documented By: PO Calcitriol (Calcitriol 0.25 Mcg Capsule) 0.25 mcg PO BID [facility] Last Admin: 07/23/23 21:25 Dose: 0.25 mcg Documented By: PO Calcium Carbonate (Calcium Carbonate 500 Mg Tablet) 500 mg PO TID@1200,1800,2100 [facility] Last Admin: 07/23/23 21:21 Dose: 500 mg Documented By: PO Cilostazol (Cilostazol 100 Mg Tablet) 100 mg PO BID@1200,2100 [facility] Last Admin: 07/23/23 21:25 Dose: 100 mg Documented By: PO Clopidogrel Bisulfate (Clopidogrel Bisulfate 75 Mg Tablet) 75 mg PO DAILY [facility] Empagliflozin (Empagliflozin 10 Mg Tablet) 10 mg PO DAILY [facility] Ferrous Sulfate (Ferrous Sulfate 324 Mg Tablet.Dr) 324 mg PO DAILY [facility] Fluticasone/Vilanterol (Fluticasone/Vilanterol 200/25 Blst.W.Dev) 1 puff INHALE RDAILY [facility] Last Admin: 07/24/23 07:29 Dose: 1 puff Documented By: DENICE Furosemide (Furosemide 40 Mg/4 Ml Vial) 40 mg IVPUSH DAILY [facility]; Protocol Gabapentin (Gabapentin 300 Mg Capsule) 300 mg PO BEDTIME [facility] Last Admin: 07/23/23 21:20 Dose: 300 mg Documented By: PO Heparin Sodium (Porcine) (Heparin Sodium,Porcine 5,000 Unit/Ml Vial) 5,000 unit SUBCUT Q12H [facility] Last Admin: 07/23/23 21:21 Dose: 5,000 unit Documented By: PO Levothyroxine Sodium (Levothyroxine Sodium 150 Mcg Tablet) 150 mcg PO DAILY@0600 [facility] Loratadine (Loratadine 10 Mg Tablet) 10 mg PO DAILY PRN PRN Reason: allergies Metoprolol Tartrate (Metoprolol Tartrate 25 Mg Tablet) 25 mg PO BID [facility]; Protocol Last Admin: 07/23/23 21:21 Dose: 25 mg Documented By: PO Montelukast Sodium (Montelukast Sodium 10 Mg Tablet) 10 mg PO BEDTIME [facility] Last Admin: 07/23/23 21:21 Dose: 10 mg Documented By: PO Ondansetron HCl (Ondansetron Hcl 4 Mg/2 Ml Vial) 4 mg IVPUSH Q8H PRN PRN Reason: Nausea and Vomiting Potassium Chloride (Potassium Chloride Er 20 Meq Tab.Er.Prt) 20 meq PO DAILY@1800 [facility] Senna (Sennosides 8.6 Mg Tablet) 17.2 mg PO BEDTIME PRN PRN Reason: Constipation Sertraline HCl (Sertraline Hcl 25 Mg Tablet) 25 mg PO DAILY [facility] Sodium Chloride (0.9 % Sodium Chloride Flush 3 Ml Syringe) 3 ml IVFLUSH QSHIFT [facility] Last Admin: 07/24/23 00:59 Dose: 3 ml Documented By: PO Tiotropium [place] (Tiotropium [place] 2.5 Mcg 1 Puff/2.5 Mcg Mist.Inhal) 2 puff INHALE RDAILY [facility] Last Admin: 07/24/23 07:29 Dose: 2 puff Documented By: DENICE Vitamin D (Cholecalciferol (Vitamin D3) 25 Mcg Tablet) 50 mcg PO DAILY [facility] Labs 07/24/23 05:08 07/24/23 05:08 Labs: Laboratory Results - last 24 hr 07/23/23 07/23/23 07/23/23 15:52 15:53 16:01 MCV 88.0 MCH 27.8 MCHC 31.6 RDW 18.2 H Plt Count 164 MPV 10.1 Immature Gran % (Auto) 0.6 H Neut % (Auto) 78.5 H Lymph % (Auto) 8.[address] [place] % (Auto) 7.4 Eos % (Auto) 4.1 H Baso % (Auto) 0.9 Lymph # (Auto) 0.[address] [place] [place] # (Auto) 0.6 Eos # (Auto) 0.3 Baso # (Auto) 0.1 Abs Immat Gran (auto) 0.05 H Absolute Neuts (auto) 6.3 Absolute Nucleated RBC 0.000 Nucleated RBC % (auto) 0.0 Hold Purple Top VBG pH 7.34 VBG pCO2 29 VBG pO2 80 VBG HCO3 16 L VBG O2 Saturation 96.0 VBG Base Excess -8.4 Anion Gap 20 Estim Creat Clear Calc 9.7 Estimated GFR 9 Random Glucose 130 H Calcium 7.5 L Total Bilirubin 0.3 AST 34 H ALT 27 Alkaline Phosphatase 84 Troponin I High Sens 39.6 H D B-Natriuretic Peptide 723 H Total Protein 8.4 H Albumin 3.6 Hold Yellow Top Influenza Type A (PCR) NEGATIVE Influenza Type B (PCR) NEGATIVE RSV RNA Qual (PCR) NEGATIVE SARS-CoV-2 RNA (RT-PCR) NEGATIVE Blood Type A Negative Antibody Screen NEGATIVE Crossmatch See Detail 07/23/23 07/23/23 07/24/23 19:59 Unknown 05:08 MCV 90.0 MCH 27.5 MCHC 30.6 L RDW 18.3 H Plt Count 146 L MPV 10.0 Immature Gran % (Auto) 0.4 Neut % (Auto) 82.4 H Lymph % (Auto) 7.[address] [place] [place] % (Auto) 6.7 Eos % (Auto) 2.1 Baso % (Auto) 0.7 Lymph # (Auto) 0.[address] [place] # (Auto) 0.5 Eos # (Auto) 0.2 Baso # (Auto) 0.1 Abs Immat Gran (auto) 0.03 Absolute Neuts (auto) 5.9 Absolute Nucleated RBC 0.000 Nucleated RBC % (auto) 0.0 Hold Purple Top SEE NOTE VBG pH VBG pCO2 VBG pO2 VBG HCO3 VBG O2 Saturation VBG Base Excess Anion Gap 19 Estim Creat Clear Calc 10.0 Estimated GFR 9 Random Glucose 146 H Calcium 7.1 L Total Bilirubin AST ALT Alkaline Phosphatase Troponin I High Sens 40.5 H B-Natriuretic Peptide Total Protein Albumin Hold Yellow Top See Note Influenza Type A (PCR) Influenza Type B (PCR) RSV RNA Qual (PCR) SARS-CoV-2 RNA (RT-PCR) Blood Type Antibody Screen Crossmatch Assessment and Plan (1) Acute hypoxemic respiratory failure: Status: Acute (2) Anasarca: Status: Acute (3) CHF exacerbation: Status: Acute (4) Anemia: Status: Acute (5) CKD (chronic kidney disease) stage 5, GFR less than 15 ml/min: Status: Acute Plan 67-year-old female with history of insulin-dependent type 2 diabetes, hypertension, hyperlipidemia, history of thyroid cancer s/p thyroidectomy with postsurgical hypothyroidism and hypoparathyroidism, CKD stage 5, CAD, and asthma/COPD overlap syndrome admitted for further management of CHF exacerbation and anasarca related to ESRD #Acute a CHF exacerbation with acute hypoxemic respiratory failure -30 lb weight gain at home in the last month, dyspnea on exertion, orthopnea, anasarca -in the setting of esrd -CXR shows evidence of moderate CHF with pulmonary vascular congestion. BNP elevated at 723 -given 80 mg IV Lasix in the ED. Continue 40 mg IV Lasix BID per cardiology -cardiac diet -strict I&O, -870ml recorded -daily weights -cardiology input appreciated -continue supplemental O2 and wean as tolerated per protocol -follow renal function/lytes #Anasarca -r/t above/esrd -plan as above -nephrology consult #CKD stage 5/ESRD not yet on HD -creatinine 4.97-->4.83, BUN 65 -electrolytes normal except CO2 16, no indication for emergent dialysis -nephrology consult -avoid nephrotoxins -follow renal function/lytes #Wound R groin -s/p left SFA plasty/aortogram with right sided access -no evidence of acute infection. No sepsis -wound rn consult #SIRS criteria -tachycardia and tachypnea r/t respiratory distress in setting of volume overload. No evidence of infection. no sepsis #acute on chornic normocytic anemia- likely r/t above/chronic disease, low suspicion for bleeding at this time -hgb 7.4--> 6.6. Transfuse 1 unit PRBC 07/23, keep hgb >7.0 -follow h/h # insulin-dependent type 2 diabetes without hyperglycemia -dose adjusted basal insulin -POC glucose, diabetic diet -Admelog on sliding scale -hold oral antihyperglycemics # hypertension- uncontrolled -continue metoprolol, increase to 50mg BID -nephrology consult for further recommendations on antihypertensives # COPD -no acute exacerbation -albuterol p.r.n.-continue maintenance inhalers # postoperative hypothyroidism with history of unspecified thyroid cancer -continue levothyroxine # PAD -s/p left SFA plasty and aortogram on 07/11 with wound to R groin without evidence of infection -continue DAPT. DC cilostazol per cardiology as contraindicated in CHF. If persistent anemia/concern for bleeding (low at this time), consider dc asa if cleared by vascular surgery #CAD/HLD -continue asa, bb, statin -no chest pain dvt prophylaxis- heparin Full code Patient requires ongoing inpt stay for ongoing IV diuresis given significant volume overload with anasarca and ongoing orthopnea in setting of ESRD requiring IV diuresis, expert consultation, and possible HD Quality Stroke Does the patient have a stroke diagnosis?: No VTE Prior VTE?: No VTE Risk Level:: Medical - moderate - high VTE Device Contraindication: Treatment Not Indicated VTE Drug Contraindication: N/A - Med Ordered
--- NOTE | 2023-07-24 09:17 | P.CDIM_ITS ---
PROVIDER RESPONSE TEXT: To clarify, the appropriate diagnosis supported by the clinical indicators: Other (explain): Hypocalcemia due to hypoparathyroidism and ckd stage 5 QUERY TEXT: PHYSICIAN'S DOCUMENTATION REQUEST Date of Query: 07/24/2023 08:25 AM EDT Patient Name: Sarah Jones Admit Date: 07/23/2023 Dear Dolores BOJORQUEZ, A review of the medical record indicates additional documentation may be needed. Please review below and update the documentation accordingly. Clinical Indicators: LABS: calcium 7.5 7.1 Based on the above, is there a diagnosis that correlates with these lab findings: Hypocalcemia Labs indicate a diagnosis of (please specify) Other (explain) Clinically unable to determine (explain) Thank you, Lucie Burton, CCS, CDIS Use of terms such as suspected, likely, concern for, or probable (associated with a specific diagnosi s that is being evaluated, monitored, or treated as if it exists) are acceptable and can be coded in the inpatient se tting, when documented at the time of discharge. Please use your independent medical judgment in providing your response. THIS QUERY IS PART OF THE PERMANENT MEDICAL RECORD
[2023-07-24] MEDS: Levothyroxine Sodium 150 MCG TABLET PO (09:55)
[2023-07-24] MEDS: Sertraline HCL 25 MG TABLET PO (09:55)
[2023-07-24] MEDS: Clopidogrel Bisulfate 75 MG TABLET PO (09:55)
[2023-07-24] MEDS: Ferrous Sulfate 324 MG TABLET.DR PO (09:55)
[2023-07-24] MEDS: Cholecalciferol (Vitamin D3) 25 MCG TABLET 50 MCG PO (09:55)
[2023-07-24] MEDS: Metoprolol Tartrate 25 MG TABLET PO ×2 (09:55→12:09)
[2023-07-24] MEDS: Furosemide 40 MG/4 ML VIAL IVPUSH (09:55)
[2023-07-24] MEDS: Heparin Sodium,Porcine 5,000 UNIT/ML VIAL 5000 UNIT SUBCUT ×2 (09:56→20:10)
--- NOTE | 2023-07-24 09:56 | PC.NURSE ---
called pharmacy for missing meds float nurse
--- NOTE | 2023-07-24 11:01 | P.CONCA_ITS ---
History of Present Illness History of Present Illness Date of Service: 07/24/23 Requesting physician: Dolores Lance Chief complaint: CHF exacerbation Narrative: 67-year-old female with background history of chronic kidney disease stage 5, peripheral vascular disease, hypertension, hyperlipidemia and history of tobacco use presenting for shortness of breath. She has been experiencing shortness of breath over the last 2 weeks. She has orthopnea. Blood pressure is elevated. She has significant anemia on blood workup. She is getting 1 unit of blood today. She is denying any chest discomfort currently and did not have any chest pains at home also. High sensitivity troponin levels are 39.6 and 40.5. ECG showing sinus tachycardia 101/min, no ischemic changes. [facility] Past Medical History Medical History Hypocalcemia Nicotine dependence, cigarettes, uncomplicated Atherosclerotic cardiovascular disease Thyroid cancer (~2008) 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) Hypothyroidism associated with surgical procedure (~2008) Uncontrolled type 2 diabetes mellitus with hyperglycemia (~1986) Pneumonitis ARDS (adult respiratory distress syndrome) Neuropathy Asthma-COPD overlap syndrome Anemia HTN (hypertension) Hypercholesteremia Family History Family History Mother Hypertension Diabetes Father AA (alcohol abuse) Surgical History Surgical History History of thyroidectomy History of back surgery History of 2 sections History of angioplasty History of amputation of left great toe Social History Social History Household Members: Other Housing: Apartment Do you presently have 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 or other home services: Yes Alcohol intake: never 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 Tobacco Use Status: Former Tobacco user Years Smoked: 45 Smoked in Last 30 Days: No Use of substances other than those prescribed or required for medical reasons: No Advance Directives: Yes Advance Directives on File: Yes Advance Directives Date on File: 09/13/20 Do you have a plan to hurt others: No Plan Nutrition Risks: No Nutritional Risk service: No Current occupational status: disabled Meds Allergies Allergy/AdvReac Type Severity Reaction Status Date / Time ALLYSSA Inhibitors Allergy Mild COUGH Verified 07/23/23 15:37 [ALLYSSA INHIBITORS] cilostazol [CILOSTAZOL] Allergy Mild COUGH Verified 07/23/23 15:37 Active Medications: Current Medications Acetaminophen (Acetaminophen 325 Mg Tablet) 650 mg PO Q6H PRN PRN Reason: Pain, Mild (Pain Scale 1-3) Aspirin (Aspirin Enteric Coated 81 Mg Tablet.) 81 mg PO DAILY@1200 [facility] Atorvastatin Calcium (Atorvastatin Calcium 80 Mg Tablet) 80 mg PO BEDTIME [facility] Last Admin: 07/23/23 21:20 Dose: 80 mg Calcitriol (Calcitriol 0.25 Mcg Capsule) 0.25 mcg PO BID [facility] Last Admin: 07/23/23 21:25 Dose: 0.25 mcg Calcium Carbonate (Calcium Carbonate 500 Mg Tablet) 500 mg PO TID@1200,1800,2100 [facility] Last Admin: 07/23/23 21:21 Dose: 500 mg Cilostazol (Cilostazol 100 Mg Tablet) 100 mg PO BID@1200,2100 [facility] Last Admin: 07/23/23 21:25 Dose: 100 mg Clopidogrel Bisulfate (Clopidogrel Bisulfate 75 Mg Tablet) 75 mg PO DAILY [facility] Last Admin: 07/24/23 09:55 Dose: 75 mg Empagliflozin (Empagliflozin 10 Mg Tablet) 10 mg PO DAILY [facility] Ferrous Sulfate (Ferrous Sulfate 324 Mg Tablet.) 324 mg PO DAILY [facility] Last Admin: 07/24/23 09:55 Dose: 324 mg Fluticasone/Vilanterol (Fluticasone/Vilanterol 200/25 Blst.W.Dev) 1 puff INHALE RDAILY [facility] Last Admin: 07/24/23 07:29 Dose: 1 puff Furosemide (Furosemide 40 Mg/4 Ml Vial) 40 mg IVPUSH DAILY [facility]; Protocol Last Admin: 07/24/23 09:55 Dose: 40 mg Gabapentin (Gabapentin 300 Mg Capsule) 300 mg PO BEDTIME [facility] Last Admin: 07/23/23 21:20 Dose: 300 mg Heparin Sodium (Porcine) (Heparin Sodium,Porcine 5,000 Unit/Ml Vial) 5,000 unit SUBCUT Q12H [facility] Last Admin: 07/24/23 09:56 Dose: 5,000 unit Levothyroxine Sodium (Levothyroxine Sodium 150 Mcg Tablet) 150 mcg PO DAILY@0600 [facility] Last Admin: 07/24/23 09:55 Dose: 150 mcg Loratadine (Loratadine 10 Mg Tablet) 10 mg PO DAILY PRN PRN Reason: allergies Metoprolol Tartrate (Metoprolol Tartrate 25 Mg Tablet) 25 mg PO BID [facility]; Protocol Last Admin: 07/24/23 09:55 Dose: 25 mg Montelukast Sodium (Montelukast Sodium 10 Mg Tablet) 10 mg PO BEDTIME [facility] Last Admin: 07/23/23 21:21 Dose: 10 mg Ondansetron HCl (Ondansetron Hcl 4 Mg/2 Ml Vial) 4 mg IVPUSH Q8H PRN PRN Reason: Nausea and Vomiting Potassium Chloride (Potassium Chloride Er 20 Meq Tab.Er.Prt) 20 meq PO DAILY@1800 [facility] Senna (Sennosides 8.6 Mg Tablet) 17.2 mg PO BEDTIME PRN PRN Reason: Constipation Sertraline HCl (Sertraline Hcl 25 Mg Tablet) 25 mg PO DAILY [facility] Last Admin: 07/24/23 09:55 Dose: 25 mg Sodium Chloride (0.9 % Sodium Chloride Flush 3 Ml Syringe) 3 ml IVFLUSH QSHIFT [facility] Last Admin: 07/24/23 09:44 Dose: Not Given Tiotropium [place] (Tiotropium [place] 2.5 Mcg 1 Puff/2.5 Mcg Mist.Inhal) 2 puff INHALE RDAILY [facility] Last Admin: 07/24/23 07:29 Dose: 2 puff Vitamin D (Cholecalciferol (Vitamin D3) 25 Mcg Tablet) 50 mcg PO DAILY [facility] Last Admin: 07/24/23 09:55 Dose: 50 mcg Home Medications ?Medication ?Instructions ?Recorded ?Confirmed ?Last Taken ?Type cilostazol 100 mg tablet 100 mg PO BID@1200,2100 05/17/20 07/23/23 08/17/20 20:00 History ferrous sulfate 325 mg (65 mg 1 tab PO QAM 05/17/20 07/23/23 08/17/20 08:30 History iron) tablet blood sugar diagnostic (FreeStyle #10 ea 05/30/21 01/15/23 Unknown History Lite Strips) insulin aspart U-100 100 unit/mL 8 unit subcut TIDAC 05/30/21 07/23/23 Unknown History (3 mL) subcutaneous pen (Novolog FlexPen U-100 Insulin aspart) lancets 33 gauge (TRUEplus Lancets) #100 ea 05/30/21 01/15/23 Unknown History cholecalciferol (vitamin D3) 50 50 mcg PO DAILY 04/24/22 07/23/23 Unknown History mcg (2,000 unit) tablet dapagliflozin propanediol 5 mg 5 mg PO DAILY 04/24/22 07/23/23 Unknown History tablet (Farxiga) linagliptin 5 mg tablet (Tradjenta) 5 mg PO DAILY@1200 04/24/22 07/23/23 Unknown History potassium chloride 20 mEq 20 meq PO DAILY@1800 04/24/22 07/23/23 Unknown History tablet,extended release(part/cryst) pen needle, diabetic 32 gauge x #50 ea 05/03/22 01/15/23 Unknown History (Pentips) aspirin 81 mg tablet,delayed 81 mg PO DAILY@1200 06/20/22 07/23/23 Unknown History release atorvastatin 80 mg tablet 80 mg PO BEDTIME 06/20/22 07/23/23 Unknown History clopidogrel 75 mg tablet 75 mg PO QAM 06/20/22 07/23/23 Unknown History metoprolol tartrate 25 mg tablet 25 mg PO BID 06/20/22 07/23/23 Unknown History montelukast 10 mg tablet 10 mg PO BEDTIME 06/20/22 07/23/23 Unknown History sertraline 25 mg tablet 25 mg PO DAILY 06/20/22 07/23/23 Unknown History levothyroxine 150 mcg tablet 150 mcg PO DAILY 03/21/23 07/23/23 Unknown History gabapentin 300 mg capsule 300 mg PO BEDTIME 04/25/23 07/23/23 Unknown History budesonide-formoterol HFA 160 2 puff inhalation BID 07/23/23 07/23/23 Unknown History mcg-4.5 mcg/actuation aerosol inhaler calcium carbonate (Calcium Antacid) 200 mg PO TID@1200,1800,2100 07/23/23 07/23/23 Unknown History cetirizine 5 mg tablet 5 mg PO DAILY PRN allergies 07/23/23 07/23/23 Unknown History insulin degludec 100 unit/mL (3 13 unit subcut DAILY@1400 PRN 07/23/23 07/23/23 Unknown History mL) subcutaneous pen (Tresiba Hyperglycemia FlexTouch U-100 insulin) umeclidinium 62.5 mcg/actuation 1 inh inhalation QAM 07/23/23 07/23/23 Unknown History blister powder for inhalation (Incruse Ellipta) Physical Exam 2 Vital Signs: Vital Signs: Last Vital Signs Temp 98.3 F 07/24/23 09:54 Pulse 89 07/24/23 09:55 Resp 20 07/24/23 09:54 BP 178/77 H 07/24/23 09:55 Pulse Ox 94 07/24/23 09:54 O2 Del Method Nasal Cannula 07/24/23 09:54 O2 Flow Rate 2 07/24/23 09:54 Oxygen Flow Rate 3 07/23/23 15:34 BMI result Body Mass Index 32.0 GENERAL APPEARANCE: in no acute distress, pleasant. NECK: no carotid bruit, no jugular venous distention. SKIN: no suspicious lesions, warm and dry. HEART: no murmurs, regular rate and rhythm. LUNGS: Crackles at bases. ABDOMEN: soft, nontender. EXTREMITIES: no edema. PERIPHERAL PULSES: equal. NEUROLOGIC: No gross deficits, AAO X 3 Objective Labs and Meds 07/24/23 05:08 07/24/23 05:08 Lab results: Laboratory Results - last 24 hr 07/23/23 07/23/23 07/23/23 15:52 15:53 16:01 WBC 8.1 RBC 2.66 L Hgb 7.4 L Hct 23.4 L MCV 88.0 MCH 27.8 MCHC 31.6 RDW 18.2 H Plt Count 164 MPV 10.1 Immature Gran % (Auto) 0.6 H Neut % (Auto) 78.5 H Lymph % (Auto) 8.5 L [place] % (Auto) 7.4 Eos % (Auto) 4.1 H Baso % (Auto) 0.9 Lymph # (Auto) 0.7 L [place] # (Auto) 0.6 Eos # (Auto) 0.3 Baso # (Auto) 0.1 Abs Immat Gran (auto) 0.05 H Absolute Neuts (auto) 6.3 Absolute Nucleated RBC 0.000 Nucleated RBC % (auto) 0.0 Hold Purple Top VBG pH 7.34 VBG pCO2 29 VBG pO2 80 VBG HCO3 16 L VBG O2 Saturation 96.0 VBG Base Excess -8.4 Sodium 143 Potassium 4.2 Chloride 111 H Carbon Dioxide 16 L Anion Gap 20 BUN 65 H Creatinine 4.97 H* Estim Creat Clear Calc 9.7 Estimated GFR 9 Random Glucose 130 H Calcium 7.5 L Total Bilirubin 0.3 AST 34 H ALT 27 Alkaline Phosphatase 84 Troponin I High Sens 39.6 H D B-Natriuretic Peptide 723 H Total Protein 8.4 H Albumin 3.6 Hold Yellow Top Influenza Type A (PCR) NEGATIVE Influenza Type B (PCR) NEGATIVE RSV RNA Qual (PCR) NEGATIVE SARS-CoV-2 RNA (RT-PCR) NEGATIVE Blood Type A Negative Antibody Screen NEGATIVE Crossmatch See Detail 07/23/23 07/23/23 07/24/23 19:59 Unknown 05:08 WBC 7.2 RBC 2.40 L Hgb 6.6 L* Hct 21.6 L MCV 90.0 MCH 27.5 MCHC 30.6 L RDW 18.3 H Plt Count 146 L MPV 10.0 Immature Gran % (Auto) 0.4 Neut % (Auto) 82.4 H Lymph % (Auto) 7.7 L [place] % (Auto) 6.7 Eos % (Auto) 2.1 Baso % (Auto) 0.7 Lymph # (Auto) 0.6 L [place] # (Auto) 0.5 Eos # (Auto) 0.2 Baso # (Auto) 0.1 Abs Immat Gran (auto) 0.03 Absolute Neuts (auto) 5.9 Absolute Nucleated RBC 0.000 Nucleated RBC % (auto) 0.0 Hold Purple Top SEE NOTE VBG pH VBG pCO2 VBG pO2 VBG HCO3 VBG O2 Saturation VBG Base Excess Sodium 142 Potassium 4.1 Chloride 111 H Carbon Dioxide 16 L Anion Gap 19 BUN 69 H Creatinine 4.83 H* Estim Creat Clear Calc 10.0 Estimated GFR 9 Random Glucose 146 H Calcium 7.1 L Total Bilirubin AST ALT Alkaline Phosphatase Troponin I High Sens 40.5 H B-Natriuretic Peptide Total Protein Albumin Hold Yellow Top See Note Influenza Type A (PCR) Influenza Type B (PCR) RSV RNA Qual (PCR) SARS-CoV-2 RNA (RT-PCR) Blood Type Antibody Screen Crossmatch Imaging Radiologist's impression: Impressions Chest X-Ray 07/23/23 16:15 IMPRESSION: There is pulmonary vascular congestion, and a diffuse bilateral interstitial and alveolar pattern is seen. The findings are consistent with moderate congestive heart failure. An atypical viral pneumonia is a further differential consideration, and clinical correlation is recommended. Assessment and Plan (1) CHF exacerbation: Status: Acute (2) Anemia: Status: Acute (3) CKD (chronic kidney disease) stage 5, GFR less than 15 ml/min: Status: Acute Plan Very pleasant 67-year-old female with advanced kidney disease and peripheral vascular disease who is presenting with shortness of breath and congestive heart failure. Clinically she is volume overloaded and also significantly anemic. She is getting 1 unit of blood. She should get IV Lasix 40 mg b.i.d.. Blood pressure is elevated. Resume her home medications. Consult Nephrology. She did not have any recent echocardiography in our system. Last echo was in 2020 when normal LVEF was noticed with elevated filling pressures and normal right ventricular function. She is on aspirin Plavix and cilostazol. This puts her at a high risk of bleeding. Also with congestive heart failure episode cilostazol is contraindicated. I am stopping the cilostazol. She had left SFA angioplasty done by Dr. Butler on 06/24/20232023. She is on aspirin and Plavix. If concern for bleeding then discussed with Dr. Butler whether aspirin can be stopped. It appears this is likely anemia of chronic disease due to chronic kidney disease. Thank you for allowing me to participate in the care of your patient. Please feel free to contact me if you have any questions. Procedures Date of Service Date of Service: 07/24/23
[2023-07-24] MEDS: Empagliflozin 10 MG TABLET PO (11:05)
[2023-07-24] MEDS: calcitrioL 0.25 MCG CAPSULE PO ×2 (11:05→20:11)
[2023-07-24] MEDS: Aspirin Enteric Coated 81 MG TABLET.DR PO (12:09)
[2023-07-24] MEDS: Isosorbide Mononitrate 30 MG TAB.ER.24H PO (14:26)
--- NOTE | 2023-07-24 14:27 | MHC.CM.PN ---
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
--- NOTE | 2023-07-24 14:33 | MHC.CM.PN ---
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
--- NOTE | 2023-07-24 14:41 | PC.NURSE ---
VITAL SIGNS DONE AT 1300 WHEN BLOOD FINISHED, NOT [id number]
[2023-07-24 15:04] LABS: Parathyroid Hormone Intact 161.7 pg/mL (8.7-77.1)
[2023-07-24] MEDS: hydrALAZINE HCl 10 MG TABLET PO ×2 (16:01→20:11)
[2023-07-24 18:09] LABS: Glucose, Whole Blood 172 mg/dL (60-115)
[2023-07-24] MEDS: Furosemide 40 MG/4 ML VIAL 80 MG IVPUSH (18:13)
[2023-07-24] MEDS: Potassium Chloride ER 20 MEQ TAB.ER.PRT PO (18:14)
--- NOTE | 2023-07-24 18:26 | P.CDIM_ITS ---
PROVIDER RESPONSE TEXT: To clarify, the appropriate diagnosis supported by the clinical indicators: Systolic: Acute on chronic systolic HF QUERY TEXT: PHYSICIAN'S DOCUMENTATION REQUEST Date of Query: 07/24/2023 11:53 AM EDT Patient Name: Sarah Jones Admit Date: 07/23/2023 Dear Dolores BOJORQUEZ, A review of the medical record indicates additional documentation may be needed. Please review below and update the documentation accordingly. Clinical Indicators: Progress notes within the Plan: Acute CHF exacerbation with acute hypoxemic respiratory failure 30lb weight gain at home in the last month, herman, anasarca CXR shows evidence of moderate CHF with pulmonary vascular congestion, BNP 723 IV Lasix Cardiac diet/strict I&O Cardiology input appreciated. Please provide further specificity regarding the most likely type and acuity of CHF you are evaluatin g, treating, or monitoring. Systolic Please specify if Acute, Chronic, or Acute on chronic, or Unable to determine Diastolic Please specify if Acute, Chronic, or Acute on chronic, or Unable to determine Combined Systolic/Diastolic Please specify if Acute, Chronic, or Acute on chronic, or Unable to determine Other (explain) Clinically unable to determine (explain) Thank you, Lucie Burton, CCS, CDIS Use of terms such as suspected, likely, concern for, or probable (associated with a specific diagnosi s that is being evaluated, monitored, or treated as if it exists) are acceptable and can be coded in the inpatient se tting, when documented at the time of discharge. Please use your independent medical judgment in providing your response. THIS QUERY IS PART OF THE PERMANENT MEDICAL RECORD
[2023-07-24 19:51] LABS: MANUAL DIFF FLAG NO
[2023-07-24 19:53] LABS: Basophils Percent Auto 0.6 % (0-2); Eosinophils Absolute Auto 0.3 X10*3/uL (0.0-0.4); Eosinophils Percent Auto 3.7 % (0-4); Hemoglobin 7.6 g/dl (12.0-16.0); Imm Gran Abs Auto 0.03 X10*3/uL (0.00-0.03); Imm Gran Pct Auto 0.4 % (0.0-0.4); Lymphocytes Absolute Auto 0.7 X10*3/uL (1.2-4.9); Lymphocytes Percent Auto 9.2 % (20-40); Mean Corpuscular HGB Conc 31.7 g/dl (31.0-35.0); Mean Corpuscular Hemoglobin 27.8 pg (27.0-33.0); Mean Corpuscular Volume 87.9 fL (80.0-98.0); Monocytes Absolute Auto 0.6 X10*3/uL (0.1-1.2); Monocytes Percent Auto 8.5 % (2-11); Neutrophils Absolute Auto 5.5 x10*3/uL (2.0-8.3); Neutrophils Percent Auto 77.6 % (45-73); Platelet Count 148 X10*3/uL (160-400); Red Blood Count 2.73 X10*6/uL (4.20-5.50); Red Cell Distribution Width 17.9 % (11.0-16.0); White Blood Count 7.1 X10*3/uL (4.8-10.8)
[2023-07-24] MEDS: carvediloL 12.5 MG TABLET PO (20:11)
[2023-07-24] MEDS: Gabapentin 300 MG CAPSULE PO (20:11)
[2023-07-24] MEDS: Atorvastatin Calcium 80 MG TABLET PO (20:11)
[2023-07-24] MEDS: Acetaminophen 325 MG TABLET 650 MG PO (20:11)
[2023-07-24] MEDS: Sennosides 8.6 MG TABLET 17.2 MG PO (20:11)
[2023-07-24] MEDS: Montelukast Sodium 10 MG TABLET PO (20:11)
--- NOTE | 2023-07-24 20:13 | PM.CNNEP ---
History of Present Illness Reason for Consult Consult date: 07/24/23 Chief Complaint Chief complaint: CHF exacerbation History of Present Illness Narrative: 67-year-old female with CKD stage 5 presented to the ER for evaluation of dyspnea on exertion, orthopnea, bilateral lower extremity edema, 30 lb weight gain over the past month. She has a dry cough but no fevers, chills, st, congestion, abd pain, n/v/d, palpitations, lighteadedness, headache, or chest pain. She was noted to be hypoxic on arrival at 86% on room air with increased work of breathing and placed on 3 L supplemental O2 via nasal cannula. She has had discussions about hemodialysis but has not yet started this. She also underwent left SFA plasty with aortogram on 07/11 with vascular surgery and has open wound that appears clean without surrounding erythema or warmth. She has been hypertensive to 188/85 and tachycardic to 103 with mild tachypnea. She was hypoxic and placed on 3 L supplemental O2 maintain a oximetry 95%. Her Creatinine was 4.97 Chest x-ray showed pulmonary vascular congestion and diffuse bilateral interstitial and alveolar pattern findings consistent with moderate congestive heart failure. She was admitted for further management. Nephrology has been consulted to assist in her clinical care during her current hospital stay Review of Systems Review of Systems Yes all other systems are reviewed and are negative PMFSH Past Medical History Medical History Hypocalcemia Nicotine dependence, cigarettes, uncomplicated Atherosclerotic cardiovascular disease Thyroid cancer (~2008) 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) Hypothyroidism associated with surgical procedure (~2008) Uncontrolled type 2 diabetes mellitus with hyperglycemia (~1986) Pneumonitis ARDS (adult respiratory distress syndrome) Neuropathy Asthma-COPD overlap syndrome Anemia HTN (hypertension) Hypercholesteremia Family History Family History Mother Hypertension Diabetes Father AA (alcohol abuse) Surgical History Surgical History History of thyroidectomy History of back surgery History of 2 sections History of angioplasty History of amputation of left great toe Social History Social History Household Members: Family Housing: Apartment 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) Alcohol intake: never 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 Tobacco Use Status: Former Tobacco user Years Smoked: 45 Advance Directives Date on File: 09/13/20 service: No Current occupational status: disabled Meds Allergies Allergy/AdvReac Type Severity Reaction Status Date / Time ALLYSSA Inhibitors Allergy Mild COUGH Verified 07/23/23 15:37 [ALLYSSA INHIBITORS] cilostazol [CILOSTAZOL] Allergy Mild COUGH Verified 07/23/23 15:37 Active Medications: Current Medications Acetaminophen (Acetaminophen 325 Mg Tablet) 650 mg PO Q6H PRN PRN Reason: Pain, Mild (Pain Scale 1-3) Aspirin (Aspirin Enteric Coated 81 Mg Tablet.) 81 mg PO DAILY@1200 [facility] Last Admin: 07/24/23 12:09 Dose: 81 mg Atorvastatin Calcium (Atorvastatin Calcium 80 Mg Tablet) 80 mg PO BEDTIME [facility] Last Admin: 07/23/23 21:20 Dose: 80 mg Calcitriol (Calcitriol 0.25 Mcg Capsule) 0.25 mcg PO BID [facility] Last Admin: 07/24/23 11:05 Dose: 0.25 mcg Calcium Carbonate (Calcium Carbonate 500 Mg Tablet) 500 mg PO TID@1200,1800,2100 [facility] Last Admin: 07/24/23 18:14 Dose: 500 mg Carvedilol (Carvedilol 12.5 Mg Tablet) 12.5 mg PO BID [facility]; Protocol Clopidogrel Bisulfate (Clopidogrel Bisulfate 75 Mg Tablet) 75 mg PO DAILY [facility] Last Admin: 07/24/23 09:55 Dose: 75 mg Empagliflozin (Empagliflozin 10 Mg Tablet) 10 mg PO DAILY [facility] Last Admin: 07/24/23 11:05 Dose: 10 mg Ferrous Sulfate (Ferrous Sulfate 324 Mg Tablet.) 324 mg PO DAILY [facility] Last Admin: 07/24/23 09:55 Dose: 324 mg Fluticasone/Vilanterol (Fluticasone/Vilanterol 200/25 Blst.W.Dev) 1 puff INHALE RDAILY [facility] Last Admin: 07/24/23 07:29 Dose: 1 puff Furosemide (Furosemide 40 Mg/4 Ml Vial) 80 mg IVPUSH BID@0900,1800 [facility]; Protocol Last Admin: 07/24/23 18:13 Dose: 80 mg Gabapentin (Gabapentin 300 Mg Capsule) 300 mg PO BEDTIME [facility] Last Admin: 07/23/23 21:20 Dose: 300 mg Glucose (Glucose Gel 15 Gm Gel..Gram.) 15 gm PO Q15M PRN; Protocol PRN Reason: per Hypoglycemia Standing Ord. Heparin Sodium (Porcine) (Heparin Sodium,Porcine 5,000 Unit/Ml Vial) 5,000 unit SUBCUT Q12H [facility] Last Admin: 07/24/23 09:56 Dose: 5,000 unit Hydralazine HCl (Hydralazine Hcl 10 Mg Tablet) 10 mg PO TID [facility]; Protocol Last Admin: 07/24/23 16:01 Dose: 10 mg Dextrose (D10) 250 mls @ 750 mls/hr IV Q15M PRN; Protocol PRN Reason: per Hypoglycemia Standing Ord. Insulin Human Lispro (Insulin Lispro 100 Unit/Ml 3 Ml Vial) 0 unit SUBCUT QIDACHS [facility]; Protocol Isosorbide Mononitrate (Isosorbide Mononitrate 30 Mg Tab.Er.24h) 30 mg PO DAILY [facility]; Protocol Last Admin: 07/24/23 14:26 Dose: 30 mg Levothyroxine Sodium (Levothyroxine Sodium 150 Mcg Tablet) 150 mcg PO DAILY@0600 [facility] Last Admin: 07/24/23 09:55 Dose: 150 mcg Loratadine (Loratadine 10 Mg Tablet) 10 mg PO DAILY PRN PRN Reason: allergies Montelukast Sodium (Montelukast Sodium 10 Mg Tablet) 10 mg PO BEDTIME [facility] Last Admin: 07/23/23 21:21 Dose: 10 mg Ondansetron HCl (Ondansetron Hcl 4 Mg/2 Ml Vial) 4 mg IVPUSH Q8H PRN PRN Reason: Nausea and Vomiting Potassium Chloride (Potassium Chloride Er 20 Meq Tab.Er.Prt) 20 meq PO DAILY@1800 [facility] Last Admin: 07/24/23 18:14 Dose: 20 meq Senna (Sennosides 8.6 Mg Tablet) 17.2 mg PO BEDTIME PRN PRN Reason: Constipation Sertraline HCl (Sertraline Hcl 25 Mg Tablet) 25 mg PO DAILY [facility] Last Admin: 07/24/23 09:55 Dose: 25 mg Sodium Chloride (0.9 % Sodium Chloride Flush 3 Ml Syringe) 3 ml IVFLUSH QSHIFT [facility] Last Admin: 07/24/23 15:59 Dose: Not Given Tiotropium Center Cross (Tiotropium Center Cross 2.5 Mcg 1 Puff/2.5 Mcg Mist.Inhal) 2 puff INHALE RDAILY [facility] Last Admin: 07/24/23 07:29 Dose: 2 puff Vitamin D (Cholecalciferol (Vitamin D3) 25 Mcg Tablet) 50 mcg PO DAILY [facility] Last Admin: 07/24/23 09:55 Dose: 50 mcg Home Medications ?Medication ?Instructions ?Recorded ?Confirmed ?Last Taken ?Type cilostazol 100 mg tablet 100 mg PO BID@1200,2100 05/17/20 07/23/23 08/17/20 20:00 History ferrous sulfate 325 mg (65 mg 1 tab PO QAM 05/17/20 07/23/23 08/17/20 08:30 History iron) tablet blood sugar diagnostic (FreeStyle #10 ea 05/30/21 01/15/23 Unknown History Lite Strips) insulin aspart U-100 100 unit/mL 8 unit subcut TIDAC 05/30/21 07/23/23 Unknown History (3 mL) subcutaneous pen (Novolog FlexPen U-100 Insulin aspart) lancets 33 gauge (TRUEplus Lancets) #100 ea 05/30/21 01/15/23 Unknown History cholecalciferol (vitamin D3) 50 50 mcg PO DAILY 04/24/22 07/23/23 Unknown History mcg (2,000 unit) tablet dapagliflozin propanediol 5 mg 5 mg PO DAILY 04/24/22 07/23/23 Unknown History tablet (Farxiga) linagliptin 5 mg tablet (Tradjenta) 5 mg PO DAILY@1200 04/24/22 07/23/23 Unknown History potassium chloride 20 mEq 20 meq PO DAILY@1800 04/24/22 07/23/23 Unknown History tablet,extended release(part/cryst) pen needle, diabetic 32 gauge x #50 ea 05/03/22 01/15/23 Unknown History (Pentips) aspirin 81 mg tablet,delayed 81 mg PO DAILY@1200 06/20/22 07/23/23 Unknown History release atorvastatin 80 mg tablet 80 mg PO BEDTIME 06/20/22 07/23/23 Unknown History clopidogrel 75 mg tablet 75 mg PO QAM 06/20/22 07/23/23 Unknown History metoprolol tartrate 25 mg tablet 25 mg PO BID 06/20/22 07/23/23 Unknown History montelukast 10 mg tablet 10 mg PO BEDTIME 06/20/22 07/23/23 Unknown History sertraline 25 mg tablet 25 mg PO DAILY 06/20/22 07/23/23 Unknown History levothyroxine 150 mcg tablet 150 mcg PO DAILY 03/21/23 07/23/23 Unknown History gabapentin 300 mg capsule 300 mg PO BEDTIME 04/25/23 07/23/23 Unknown History budesonide-formoterol HFA 160 2 puff inhalation BID 07/23/23 07/23/23 Unknown History mcg-4.5 mcg/actuation aerosol inhaler calcium carbonate (Calcium Antacid) 200 mg PO TID@1200,1800,2100 07/23/23 07/23/23 Unknown History cetirizine 5 mg tablet 5 mg PO DAILY PRN allergies 07/23/23 07/23/23 Unknown History insulin degludec 100 unit/mL (3 13 unit subcut DAILY@1400 PRN 07/23/23 07/23/23 Unknown History mL) subcutaneous pen (Tresiba Hyperglycemia FlexTouch U-100 insulin) umeclidinium 62.5 mcg/actuation 1 inh inhalation QAM 07/23/23 07/23/23 Unknown History blister powder for inhalation (Incruse Ellipta) Physical Exam Vital Signs: Last Vital Signs Temp 97.5 F 07/24/23 19:26 Pulse 85 07/24/23 19:26 Resp 16 07/24/23 19:26 BP 172/77 H 07/24/23 19:26 Pulse Ox 95 07/24/23 19:26 O2 Del Method Nasal Cannula 07/24/23 19:26 O2 Flow Rate 2 07/24/23 19:26 Oxygen Flow Rate 3 07/23/23 15:34 BMI result Body Mass Index 32.0 Const General: comfortable and no acute distress Orientation/consciousness: patient oriented x3 HEENT Head: Yes normocephalic Mouth: Normal oral and palatal mucosa present Eyes EOM: EOMs intact bilaterally Neck Neck: Yes supple Resp Auscultation: diminished lung sounds Cardio Jugular venous distension: no JVD Rate: regular rate GI Palpation (GI): Soft to palpation Auscultation: normal bowel sounds General: Yes no CVA tenderness Back/Spine/Pelvis Back: no CVA tenderness Skin General skin exam: no rashes or lesions noted Neuro General: patient oriented x3 and moves all extremities Extrem General: Yes edema Results Lab Results 07/24/23 19:08 07/24/23 05:08 Lab results: Chemistry 07/23/23 07/24/23 15:52 05:08 Sodium 143 142 Potassium 4.2 4.1 Carbon Dioxide 16 L 16 L BUN 65 H 69 H Creatinine 4.97 H* 4.83 H* Calcium 7.5 L 7.1 L Hematology 07/23/23 07/24/23 07/24/23 15:52 05:08 19:08 WBC 8.1 7.2 7.1 Hgb 7.4 L 6.6 L* 7.6 L Plt Count 164 146 L 148 L Assessment and Plan (1) CKD (chronic kidney disease) stage 5, GFR less than 15 ml/min: Status: Acute (2) HTN (hypertension): Qualifiers: Hypertension type: renovascular hypertension Qualified Code(s): I15.0 - Renovascular hypertension Status: Acute (3) Anemia in chronic kidney disease (CKD): Qualifiers: Chronic kidney disease stage: stage 5, not on chronic dialysis Qualified Code(s): N18.5 - Chronic kidney disease, stage 5; D63.1 - Anemia in chronic kidney disease Status: Acute (4) Metabolic acidosis: Status: Acute (5) Anasarca: Status: Acute (6) Secondary hyperparathyroidism (of renal origin): Status: Acute Plan Not uremic but hypervolemic and acidotic Increased lasix to 80 mg bid BP needs to be kept at goal Started Hydralazine 10 mg tid Started Imdur 30 mg daily Iron studies ordered If transferrin saturation > 20 % shall give Procrit Needs to be on NaHCO3 650 mg bid No indication for renal replacement today Shall closely follow up Procedures Date of Service Date of Service: 07/24/23
[2023-07-24 21:18] LABS: Glucose, Whole Blood 164 mg/dL (60-115)
[2023-07-24] MEDS: Insulin Lispro 100 UNIT/ML 3 ML VIAL SUBCUT (21:25)
[2023-07-25] VITALS (15 sets, daily range): BP systolic 118–151; BP diastolic 58–70; PULSE 61–71; RESP 16–18; TEMP 36.1–36.6; O2SAT 93–98
[2023-07-25] MEDS: 0.9 % Sodium Chloride Flush 3 ML SYRINGE IVFLUSH ×3 (00:01→19:20)
[2023-07-25] MEDS: Levothyroxine Sodium 150 MCG TABLET PO (05:35)
[2023-07-25 07:23] LABS: Glucose, Whole Blood 104 mg/dL (60-115)
[2023-07-25 07:28] LABS: MANUAL DIFF FLAG NO
[2023-07-25 07:43] LABS: Basophils Percent Auto 0.8 % (0-2); Eosinophils Absolute Auto 0.3 X10*3/uL (0.0-0.4); Eosinophils Percent Auto 5.4 % (0-4); Hematocrit 21.6 % (37.0-47.0); Imm Gran Abs Auto 0.02 X10*3/uL (0.00-0.03); Imm Gran Pct Auto 0.4 % (0.0-0.4); Lymphocytes Absolute Auto 0.9 X10*3/uL (1.2-4.9); Lymphocytes Percent Auto 17.4 % (20-40); Mean Corpuscular Hemoglobin 26.6 pg (27.0-33.0); Mean Corpuscular Volume 85.7 fL (80.0-98.0); Mean Platelet Volume 10.8 fL (9.4-12.3); Monocytes Absolute Auto 0.6 X10*3/uL (0.1-1.2); Monocytes Percent Auto 12.6 % (2-11); Neutrophils Absolute Auto 3.2 x10*3/uL (2.0-8.3); Neutrophils Percent Auto 63.4 % (45-73); Platelet Count 135 X10*3/uL (160-400); Red Blood Count 2.52 X10*6/uL (4.20-5.50); Red Cell Distribution Width 17.5 % (11.0-16.0)
[2023-07-25] MEDS: Furosemide 40 MG/4 ML VIAL 80 MG IVPUSH ×2 (07:47→17:39)
[2023-07-25] MEDS: Heparin Sodium,Porcine 5,000 UNIT/ML VIAL 5000 UNIT SUBCUT ×2 (07:47→19:21)
[2023-07-25] MEDS: Cholecalciferol (Vitamin D3) 25 MCG TABLET 50 MCG PO (07:48)
[2023-07-25] MEDS: Ferrous Sulfate 324 MG TABLET.DR PO (07:48)
[2023-07-25] MEDS: hydrALAZINE HCl 10 MG TABLET PO ×3 (07:48→19:16)
[2023-07-25] MEDS: Loratadine 10 MG TABLET PO (07:48)
[2023-07-25] MEDS: Sertraline HCL 25 MG TABLET PO (07:48)
[2023-07-25] MEDS: Sodium Bicarbonate 650 MG TABLET PO ×2 (07:48→19:16)
[2023-07-25] MEDS: carvediloL 12.5 MG TABLET PO ×2 (07:48→19:16)
[2023-07-25] MEDS: Isosorbide Mononitrate 30 MG TAB.ER.24H PO (07:48)
[2023-07-25] MEDS: calcitrioL 0.25 MCG CAPSULE PO ×2 (07:48→19:16)
[2023-07-25] MEDS: Empagliflozin 10 MG TABLET PO (07:48)
[2023-07-25] MEDS: Clopidogrel Bisulfate 75 MG TABLET PO (07:49)
[2023-07-25] MEDS: Acetaminophen 325 MG TABLET 650 MG PO ×2 (07:49→19:15)
[2023-07-25 07:59] LABS: Anion Gap 17 (12-20); Blood Urea Nitrogen 78 mg/dL (9-16); Calcium 7.2 mg/dL (8.4-10.2); Carbon Dioxide 20 mmol/L (22-29); Chloride 107 mmol/L (96-108); Estimated Glomerular Filt Rate 9; Glucose Random 86 mg/dL (60-115); Iron 23 mcg/dL (30-160); Percent Iron Saturation 9 % (15-50); Potassium 4.4 mmol/L (3.3-5.1); Sodium 140 mmol/L (135-145); Total Iron Binding Capacity 245 mcg/dL (228-428); Unsaturated Iron Binding 222 ug/dL
[2023-07-25 08:03] LABS: Hemoglobin 6.7 g/dl (12.0-16.0)
[2023-07-25 08:08] LABS: B Type Natriuretic Peptide 1161 pg/mL (<100)
[2023-07-25] MEDS: Fluticasone/Vilanterol 200/25 BLST.W.DEV 1 PUFF INHALE (08:36)
[2023-07-25] MEDS: Tiotropium Bromide 2.5 mcg 1 PUFF/2.5 MCG MIST.INHAL 2 PUFF INHALE (08:36)
--- NOTE | 2023-07-25 09:20 | P.PNIM_ITS ---
Subjective Subjective Date of Service: 07/25/23 Interval History: Seen in follow up for chf exacerbation, anasarca Interval history: Reports improvement in sob adn edema, weaned to 2L via NC. -2.5L admission. Transfused 1 unit 07/24, but h/h again low at 6.7/21.6%. Denies melena, hematochezia, hematemesis, hematuria Review of Systems Review of Systems: Yes all other systems are reviewed and are negative Physical Exam 2 Vital Signs: Vital Signs: Last Vital Signs Temp 97.1 F 07/25/23 07:08 Pulse 68 07/25/23 07:48 Resp 16 07/25/23 07:08 BP 130/61 07/25/23 07:48 Pulse Ox 97 07/25/23 07:08 O2 Del Method Nasal Cannula 07/25/23 07:08 O2 Flow Rate 2 07/25/23 07:08 Oxygen Flow Rate 3 07/23/23 15:34 BMI result Body Mass Index 32.0 Constitutional - Awake and Alert, No apparent distress Eyes - PERRLA, EOMI Cardiovascular - S1S2, RRR, 2+ ble edema Respiratory - Normal lung expansion, Normal respiratory effort, No respiratory distress, CTA bilaterally Gastrointestinal - NT / ND; +BS; No rebound or guarding Extremities - no calf tenderness bilaterally, no swelling Skin - Warm/Dry Neurological - Alert & oriented x3 Psychological - Appropriate affect Objective Data Active Medications Acetaminophen (Acetaminophen 325 Mg Tablet) 650 mg PO Q6H PRN PRN Reason: Pain, Mild (Pain Scale 1-3) Last Admin: 07/25/23 07:49 Dose: 650 mg Documented By: LOWELL Aspirin (Aspirin Enteric Coated 81 Mg Tablet.) 81 mg PO DAILY@1200 [facility] Last Admin: 07/24/23 12:09 Dose: 81 mg Documented By: JASON Atorvastatin Calcium (Atorvastatin Calcium 80 Mg Tablet) 80 mg PO BEDTIME [facility] Last Admin: 07/24/23 20:11 Dose: 80 mg Documented By: KAMRAN Calcitriol (Calcitriol 0.25 Mcg Capsule) 0.25 mcg PO BID [facility] Last Admin: 07/25/23 07:48 Dose: 0.25 mcg Documented By: LOWELL Calcium Carbonate (Calcium Carbonate 500 Mg Tablet) 500 mg PO TID@1200,1800,2100 [facility] Last Admin: 07/24/23 20:11 Dose: 500 mg Documented By: KAMRAN Carvedilol (Carvedilol 12.5 Mg Tablet) 12.5 mg PO BID [facility]; Protocol Last Admin: 07/25/23 07:48 Dose: 12.5 mg Documented By: LOWELL Clopidogrel Bisulfate (Clopidogrel Bisulfate 75 Mg Tablet) 75 mg PO DAILY [facility] Last Admin: 07/25/23 07:49 Dose: 75 mg Documented By: LOWELL Empagliflozin (Empagliflozin 10 Mg Tablet) 10 mg PO DAILY [facility] Last Admin: 07/25/23 07:48 Dose: 10 mg Documented By: LOWELL Ferrous Sulfate (Ferrous Sulfate 324 Mg Tablet.Dr) 324 mg PO DAILY [facility] Last Admin: 07/25/23 07:48 Dose: 324 mg Documented By: LOWELL Fluticasone/Vilanterol (Fluticasone/Vilanterol 200/25 Blst.W.Dev) 1 puff INHALE RDAILY [facility] Last Admin: 07/25/23 08:36 Dose: 1 puff Documented By: JING Furosemide (Furosemide 40 Mg/4 Ml Vial) 80 mg IVPUSH BID@0900,1800 [facility]; Protocol Last Admin: 07/25/23 07:47 Dose: 80 mg Documented By: LOWELL Gabapentin (Gabapentin 300 Mg Capsule) 300 mg PO BEDTIME [facility] Last Admin: 07/24/23 20:11 Dose: 300 mg Documented By: KAMRAN Glucose (Glucose Gel 15 Gm Gel..Gram.) 15 gm PO Q15M PRN; Protocol PRN Reason: per Hypoglycemia Standing Ord. Heparin Sodium (Porcine) (Heparin Sodium,Porcine 5,000 Unit/Ml Vial) 5,000 unit SUBCUT Q12H [facility] Last Admin: 07/25/23 07:47 Dose: 5,000 unit Documented By: LOWELL Hydralazine HCl (Hydralazine Hcl 10 Mg Tablet) 10 mg PO TID [facility]; Protocol Last Admin: 07/25/23 07:48 Dose: 10 mg Documented By: LOWELL Dextrose (D10) 250 mls @ 750 mls/hr IV Q15M PRN; Protocol PRN Reason: per Hypoglycemia Standing Ord. Insulin Human Lispro (Insulin Lispro 100 Unit/Ml 3 Ml Vial) 0 unit SUBCUT QIDACHS [facility]; Protocol Last Admin: 07/25/23 07:25 Dose: Not Given Documented By: COTEMA Non-Admin Reason: No Insulin Coverage Isosorbide Mononitrate (Isosorbide Mononitrate 30 Mg Tab.Er.24h) 30 mg PO DAILY [facility]; Protocol Last Admin: 07/25/23 07:48 Dose: 30 mg Documented By: COTEMA Levothyroxine Sodium (Levothyroxine Sodium 150 Mcg Tablet) 150 mcg PO DAILY@0600 [facility] Last Admin: 07/25/23 05:35 Dose: 150 mcg Documented By: ANTOIC Loratadine (Loratadine 10 Mg Tablet) 10 mg PO DAILY PRN PRN Reason: allergies Last Admin: 07/25/23 07:48 Dose: 10 mg Documented By: COTEMA Montelukast Sodium (Montelukast Sodium 10 Mg Tablet) 10 mg PO BEDTIME [facility] Last Admin: 07/24/23 20:11 Dose: 10 mg Documented By: KAMRAN Ondansetron HCl (Ondansetron Hcl 4 Mg/2 Ml Vial) 4 mg IVPUSH Q8H PRN PRN Reason: Nausea and Vomiting Potassium Chloride (Potassium Chloride Er 20 Meq Tab.Er.Prt) 20 meq PO DAILY@1800 [facility] Last Admin: 07/24/23 18:14 Dose: 20 meq Documented By: KAMRAN Senna (Sennosides 8.6 Mg Tablet) 17.2 mg PO BEDTIME PRN PRN Reason: Constipation Last Admin: 07/24/23 20:11 Dose: 17.2 mg Documented By: KAMRAN Sertraline HCl (Sertraline Hcl 25 Mg Tablet) 25 mg PO DAILY [facility] Last Admin: 07/25/23 07:48 Dose: 25 mg Documented By: COTEMA Sodium Bicarbonate (Sodium Bicarbonate 650 Mg Tablet) 650 mg PO BID [facility] Last Admin: 07/25/23 07:48 Dose: 650 mg Documented By: COTEMA Sodium Chloride (0.9 % Sodium Chloride Flush 3 Ml Syringe) 3 ml IVFLUSH QSHIFT [facility] Last Admin: 07/25/23 07:47 Dose: 3 ml Documented By: COTEMA Tiotropium Denbo (Tiotropium Denbo 2.5 Mcg 1 Puff/2.5 Mcg Mist.Inhal) 2 puff INHALE RDAILY [facility] Last Admin: 07/25/23 08:36 Dose: 2 puff Documented By: JING Vitamin D (Cholecalciferol (Vitamin D3) 25 Mcg Tablet) 50 mcg PO DAILY [facility] Last Admin: 07/25/23 07:48 Dose: 50 mcg Documented By: LOWELL Labs 07/25/23 06:11 07/25/23 06:11 Labs: Laboratory Results - last 24 hr 07/23/23 07/24/23 07/24/23 15:53 14:24 18:05 MCV MCH MCHC RDW Plt Count MPV Immature Gran % (Auto) Neut % (Auto) Lymph % (Auto) [place] % (Auto) Eos % (Auto) Baso % (Auto) Lymph # (Auto) [place] # (Auto) Eos # (Auto) Baso # (Auto) Abs Immat Gran (auto) Absolute Neuts (auto) Absolute Nucleated RBC Nucleated RBC % (auto) Anion Gap Estim Creat Clear Calc Estimated GFR POC Glucose 172 H Random Glucose Calcium Iron TIBC % Saturation Unsat Iron Binding B-Natriuretic Peptide PTH Intact 161.7 H Blood Type A Negative Antibody Screen NEGATIVE Crossmatch See Detail 07/24/23 07/24/23 07/25/23 19:08 21:15 06:11 MCV 87.9 85.7 MCH 27.8 26.6 L MCHC 31.7 31.0 RDW 17.9 H 17.5 H Plt Count 148 L 135 L MPV 10.0 10.8 Immature Gran % (Auto) 0.4 0.4 Neut % (Auto) 77.6 H 63.4 Lymph % (Auto) 9.2 L 17.4 L [place] % (Auto) 8.5 12.6 H Eos % (Auto) 3.7 5.4 H Baso % (Auto) 0.6 0.8 Lymph # (Auto) 0.7 L 0.9 L [place] # (Auto) 0.6 0.6 Eos # (Auto) 0.3 0.3 Baso # (Auto) 0.0 0.0 Abs Immat Gran (auto) 0.03 0.02 Absolute Neuts (auto) 5.5 3.2 Absolute Nucleated RBC 0.000 0.000 Nucleated RBC % (auto) 0.0 0.0 Anion Gap 17 Estim Creat Clear Calc 10.0 Estimated GFR 9 POC Glucose 164 H Random Glucose 86 Calcium 7.2 L Iron 23 L TIBC 245 % Saturation 9 L Unsat Iron Binding 222 B-Natriuretic Peptide 1161 H PTH Intact Blood Type Antibody Screen Crossmatch 07/25/23 07:08 MCV MCH MCHC RDW Plt Count MPV Immature Gran % (Auto) Neut % (Auto) Lymph % (Auto) [place] % (Auto) Eos % (Auto) Baso % (Auto) Lymph # (Auto) [place] # (Auto) Eos # (Auto) Baso # (Auto) Abs Immat Gran (auto) Absolute Neuts (auto) Absolute Nucleated RBC Nucleated RBC % (auto) Anion Gap Estim Creat Clear Calc Estimated GFR POC Glucose 104 Random Glucose Calcium Iron TIBC % Saturation Unsat Iron Binding B-Natriuretic Peptide PTH Intact Blood Type Antibody Screen Crossmatch Assessment and Plan (1) Acute hypoxemic respiratory failure: Status: Acute (2) Anasarca: Status: Acute (3) CHF exacerbation: Status: Acute (4) Anemia: Status: Acute (5) CKD (chronic kidney disease) stage 5, GFR less than 15 ml/min: Status: Acute Plan 67-year-old female with history of insulin-dependent type 2 diabetes, hypertension, hyperlipidemia, history of thyroid cancer s/p thyroidectomy with postsurgical hypothyroidism and hypoparathyroidism, CKD stage 5, CAD, and asthma/COPD overlap syndrome admitted for further management of CHF exacerbation and anasarca related to ESRD #Acute a CHF exacerbation with acute hypoxemic respiratory failure -30 lb weight gain at home in the last month, dyspnea on exertion, orthopnea, anasarca -in the setting of esrd -CXR shows evidence of moderate CHF with pulmonary vascular congestion. BNP 723 --> 1161 -Increase lasix to 80mg BID per nephrology -cardiac diet -strict I&O, -2.5ml recorded for admission -daily weights -cardiology input appreciated -continue supplemental O2 and wean as tolerated per protocol -follow renal function/lytes #Anasarca -r/t above/esrd -plan as above -nephrology consult #CKD stage 5/ESRD not yet on HD -creatinine 4.97-->4.83-->4.81, stable overall, baseline -electrolytes normal except CO2 16, no indication for emergent dialysis -nephrology input appreciated -avoid nephrotoxins -follow renal function/lytes #acute on chronic normocytic anemia -likely r/t above/chronic disease, but will check stool occult blood -hgb 7.4--> 6.6. Transfuse 1 unit PRBC 07/23, keep hgb >7.0. H/H 6.7/21.6%. Tranfuse 1 unit PRBC again 07/24 -iron studies pending. If transferrin sat >20%, give procrit per nephro -follow h/h # hypertension -Per nephro- add imdur 30mg daily, change metoprolol to coreg 12.5mg BID, add hydralazine 10mg TID #Wound R groin -s/p left SFA plasty/aortogram with right sided access -no evidence of acute infection. No sepsis -wound rn consult #SIRS criteria -tachycardia and tachypnea r/t respiratory distress in setting of volume overload. No evidence of infection. no sepsis # insulin-dependent type 2 diabetes without hyperglycemia -dose adjusted basal insulin -POC glucose, diabetic diet -Admelog on sliding scale -hold oral antihyperglycemics # COPD -no acute exacerbation -albuterol p.r.n.-continue maintenance inhalers # postoperative hypothyroidism with history of unspecified thyroid cancer -continue levothyroxine # PAD -s/p left SFA plasty and aortogram on 07/11 with wound to R groin without evidence of infection -continue DAPT. DC cilostazol per cardiology as contraindicated in CHF. If persistent anemia/concern for bleeding (low at this time), consider dc asa if cleared by vascular surgery #CAD/HLD -continue asa, bb, statin -no chest pain dvt prophylaxis- heparin Full code Patient requires ongoing inpt stay for ongoing IV diuresis given significant volume overload with anasarca in setting of ESRD requiring IV diuresis, expert consultation, and possible HD. She will also require blood tranfusion for acute on chronic anemia with close monitoring of h/h Quality Stroke Does the patient have a stroke diagnosis?: No VTE Prior VTE?: No VTE Risk Level:: Medical - moderate - high VTE Device Contraindication: Treatment Not Indicated VTE Drug Contraindication: N/A - Med Ordered
[2023-07-25 11:16] LABS: Glucose, Whole Blood 139 mg/dL (60-115)
[2023-07-25] MEDS: Aspirin Enteric Coated 81 MG TABLET.DR PO (12:55)
--- NOTE | 2023-07-25 14:26 | HO.WOUND ---
Wound Consult: Initial 67yr old female admitted to [facility] [place] on 07/23/23 - See progress notes and H&P for detailed history.? Wound consult placed for Right Groin.? Patient agreeable to assessment and photo documentation.? Patient reports the sight has been leaking for greater than 1 week - she reports there are been no purulent drainage noted - there has been clear fluid moderate maount with some pink coloring noted. Todays assessment reveals firmness around the insertion site not consistent with Hematoma at this time. Right Groin Etiology: Vascular insertion site from previous admission 07/12/23 Measurements: 0.2cm x 0.2cm - not probed for depth Wound Bed: pink tissue with macerated edges noted Drainage / Odor: serous fluid noted - moderate amount Edges: ? macerated and hyperpigmented [place] wound: ?firm tissue around insertion site - no erythema noted No Fluctuance or Warmth noted Pain: denies Goals of Treatment: ? Hydrofiber AG for moisture management Recommendations: 1. Right Groin - Cleanse with NS, pat dry. Apply Skin prep to periwound allow to dry. Cover wound bed with cut to size Durafiber AG followed by foam dressing. Change every other day. Re-consult wound care Nurse for wound deterioration or wound changes.
--- NOTE | 2023-07-25 16:14 | PM.PNNEP ---
Subjective Subjective Date of Service: 07/25/23 Interval history: Events noted. Family at bedside. Feels better today. Status post blood transfusion. Physical Exam Vital Signs: Vital Signs: Last Vital Signs Temp 97.5 F 07/25/23 15:53 Pulse 65 07/25/23 15:53 Resp 17 07/25/23 15:53 BP 140/67 H 07/25/23 15:53 Pulse Ox 97 07/25/23 15:14 O2 Del Method Nasal Cannula 07/25/23 15:14 O2 Flow Rate 2 07/25/23 15:14 Oxygen Flow Rate 3 07/23/23 15:34 BMI result Body Mass Index 32.0 Awake. Comfortable. Neck is supple. Mucosa moist. Lungs bilateral scattered rhonchi. Heart S1-S2 heard no gallop. Abdomen soft. Extremities no edema. No involuntary movements. No myoclonus. Objective Data Labs 07/25/23 06:11 07/25/23 06:11 Labs: Laboratory Results - last 24 hr 07/23/23 07/24/23 07/24/23 15:53 18:05 19:08 WBC 7.1 RBC 2.73 L Hgb 7.6 L Hct 24.0 L MCV 87.9 MCH 27.8 MCHC 31.7 RDW 17.9 H Plt Count 148 L MPV 10.0 Immature Gran % (Auto) 0.4 Neut % (Auto) 77.6 H Lymph % (Auto) 9.2 L [place] % (Auto) 8.5 Eos % (Auto) 3.7 Baso % (Auto) 0.6 Lymph # (Auto) 0.7 L [place] # (Auto) 0.6 Eos # (Auto) 0.3 Baso # (Auto) 0.0 Abs Immat Gran (auto) 0.03 Absolute Neuts (auto) 5.5 Absolute Nucleated RBC 0.000 Nucleated RBC % (auto) 0.0 Smear Path Review Sodium Potassium Chloride Carbon Dioxide Anion Gap BUN Creatinine Estim Creat Clear Calc Estimated GFR POC Glucose 172 H Random Glucose Calcium Iron TIBC % Saturation Unsat Iron Binding B-Natriuretic Peptide Blood Type A Negative Antibody Screen NEGATIVE Crossmatch See Detail 07/24/23 07/25/23 07/25/23 21:15 06:11 07:08 WBC 5.0 RBC 2.52 L Hgb 6.7 L* Hct 21.6 L MCV 85.7 MCH 26.6 L MCHC 31.0 RDW 17.5 H Plt Count 135 L MPV 10.8 Immature Gran % (Auto) 0.4 Neut % (Auto) 63.4 Lymph % (Auto) 17.4 L [place] % (Auto) 12.6 H Eos % (Auto) 5.4 H Baso % (Auto) 0.8 Lymph # (Auto) 0.9 L [place] # (Auto) 0.6 Eos # (Auto) 0.3 Baso # (Auto) 0.0 Abs Immat Gran (auto) 0.02 Absolute Neuts (auto) 3.2 Absolute Nucleated RBC 0.000 Nucleated RBC % (auto) 0.0 Smear Path Review SEE NOTE Sodium 140 Potassium 4.4 Chloride 107 Carbon Dioxide 20 L Anion Gap 17 BUN 78 H Creatinine 4.81 H* Estim Creat Clear Calc 10.0 Estimated GFR 9 POC Glucose 164 H 104 Random Glucose 86 Calcium 7.2 L Iron 23 L TIBC 245 % Saturation 9 L Unsat Iron Binding 222 B-Natriuretic Peptide 1161 H Blood Type Antibody Screen Crossmatch 07/25/23 11:13 WBC RBC Hgb Hct MCV MCH MCHC RDW Plt Count MPV Immature Gran % (Auto) Neut % (Auto) Lymph % (Auto) [place] % (Auto) Eos % (Auto) Baso % (Auto) Lymph # (Auto) [place] # (Auto) Eos # (Auto) Baso # (Auto) Abs Immat Gran (auto) Absolute Neuts (auto) Absolute Nucleated RBC Nucleated RBC % (auto) Smear Path Review Sodium Potassium Chloride Carbon Dioxide Anion Gap BUN Creatinine Estim Creat Clear Calc Estimated GFR POC Glucose 139 H Random Glucose Calcium Iron TIBC % Saturation Unsat Iron Binding B-Natriuretic Peptide Blood Type Antibody Screen Crossmatch Procedures Date of Service Date of Service: 07/25/23 Assessment & Plan Assessment and plan (1) Anemia in chronic kidney disease (CKD): Status: Acute (2) CKD (chronic kidney disease) stage 5, GFR less than 15 ml/min: Status: Acute Plan [age] woman with advanced renal failure approaching end stage renal disease. Admitted with severe anemia. Status post transfusion. Currently she is she has no signs or symptoms of uremia. No absolute indication to initiate dialysis yet. She has been prepared for renal replacement therapy in the outpatient setting. Once discharged she will be receiving Epogen injections in my office. She will follow along with the team. Thank you Time Spent With Patient Time: Total time managing care of this patient today ____ minutes. Progress Note: Quality Stroke Does the patient have a stroke diagnosis?: No
[2023-07-25 16:17] LABS: Glucose, Whole Blood 156 mg/dL (60-115)
[2023-07-25] MEDS: Potassium Chloride ER 20 MEQ TAB.ER.PRT PO (17:39)
[2023-07-25] MEDS: Insulin Lispro 100 UNIT/ML 3 ML VIAL SUBCUT (17:39)
[2023-07-25] MEDS: Gabapentin 300 MG CAPSULE PO (19:16)
[2023-07-25] MEDS: Sennosides 8.6 MG TABLET 17.2 MG PO (19:16)
[2023-07-25] MEDS: Atorvastatin Calcium 80 MG TABLET PO (19:16)
[2023-07-25] MEDS: Montelukast Sodium 10 MG TABLET PO (19:16)
[2023-07-25 20:27] LABS: Glucose, Whole Blood 65 mg/dL (60-115)
[2023-07-25 20:56] LABS: Glucose, Whole Blood 132 mg/dL (60-115)
[2023-07-25 22:20] LABS: MANUAL DIFF FLAG NO
[2023-07-25 22:22] LABS: Basophils Percent Auto 0.7 % (0-2); Eosinophils Absolute Auto 0.3 X10*3/uL (0.0-0.4); Hematocrit 25.5 % (37.0-47.0); Hemoglobin 8.5 g/dl (12.0-16.0); Imm Gran Abs Auto 0.02 X10*3/uL (0.00-0.03); Imm Gran Pct Auto 0.4 % (0.0-0.4); Lymphocytes Absolute Auto 0.9 X10*3/uL (1.2-4.9); Lymphocytes Percent Auto 15.7 % (20-40); Mean Corpuscular HGB Conc 33.3 g/dl (31.0-35.0); Mean Corpuscular Hemoglobin 28.7 pg (27.0-33.0); Mean Corpuscular Volume 86.1 fL (80.0-98.0); Mean Platelet Volume 10.3 fL (9.4-12.3); Monocytes Absolute Auto 0.6 X10*3/uL (0.1-1.2); Monocytes Percent Auto 10.1 % (2-11); Neutrophils Absolute Auto 3.7 x10*3/uL (2.0-8.3); Neutrophils Percent Auto 67.1 % (45-73); Platelet Count 123 X10*3/uL (160-400); Red Blood Count 2.96 X10*6/uL (4.20-5.50); Red Cell Distribution Width 16.8 % (11.0-16.0); White Blood Count 5.5 X10*3/uL (4.8-10.8)
[2023-07-26] VITALS (10 sets, daily range): BP systolic 129–144; BP diastolic 58–70; PULSE 64–96; RESP 16–20; TEMP 36–36.7; O2SAT 88–95
[2023-07-26] MEDS: Levothyroxine Sodium 150 MCG TABLET PO (06:13)
[2023-07-26 06:59] LABS: MANUAL DIFF FLAG NO
[2023-07-26 07:10] LABS: Basophils Absolute Auto 0.1 X10*3/uL (0.0-0.2); Eosinophils Absolute Auto 0.3 X10*3/uL (0.0-0.4); Eosinophils Percent Auto 6.4 % (0-4); Hematocrit 26.3 % (37.0-47.0); Hemoglobin 8.8 g/dl (12.0-16.0); Imm Gran Abs Auto 0.01 X10*3/uL (0.00-0.03); Imm Gran Pct Auto 0.2 % (0.0-0.4); Lymphocytes Absolute Auto 1.1 X10*3/uL (1.2-4.9); Lymphocytes Percent Auto 20.4 % (20-40); Mean Corpuscular HGB Conc 33.5 g/dl (31.0-35.0); Mean Corpuscular Hemoglobin 28.9 pg (27.0-33.0); Mean Corpuscular Volume 86.2 fL (80.0-98.0); Mean Platelet Volume 10.2 fL (9.4-12.3); Monocytes Absolute Auto 0.6 X10*3/uL (0.1-1.2); Neutrophils Absolute Auto 3.1 x10*3/uL (2.0-8.3); Platelet Count 139 X10*3/uL (160-400); Red Blood Count 3.05 X10*6/uL (4.20-5.50); Red Cell Distribution Width 16.7 % (11.0-16.0); White Blood Count 5.2 X10*3/uL (4.8-10.8)
[2023-07-26 07:25] LABS: Glucose, Whole Blood 102 mg/dL (60-115)
[2023-07-26 07:33] LABS: Anion Gap 19 (12-20); Blood Urea Nitrogen 90 mg/dL (9-16); Calcium 7.1 mg/dL (8.4-10.2); Carbon Dioxide 20 mmol/L (22-29); Chloride 106 mmol/L (96-108); Creatinine Clr Calc Pharmacy 9.5; Estimated Glomerular Filt Rate 8; Glucose Random 94 mg/dL (60-115); Potassium 3.9 mmol/L (3.3-5.1); Sodium 141 mmol/L (135-145)
[2023-07-26] MEDS: Tiotropium Bromide 2.5 mcg 1 PUFF/2.5 MCG MIST.INHAL 2 PUFF INHALE (07:55)
[2023-07-26] MEDS: Fluticasone/Vilanterol 200/25 BLST.W.DEV 1 PUFF INHALE (07:55)
[2023-07-26] MEDS: 0.9 % Sodium Chloride Flush 3 ML SYRINGE IVFLUSH ×3 (08:12→20:42)
[2023-07-26] MEDS: Heparin Sodium,Porcine 5,000 UNIT/ML VIAL 5000 UNIT SUBCUT ×2 (08:12→20:42)
[2023-07-26] MEDS: Furosemide 40 MG/4 ML VIAL 80 MG IVPUSH ×2 (08:12→17:19)
[2023-07-26] MEDS: Ferrous Sulfate 324 MG TABLET.DR PO (08:13)
[2023-07-26] MEDS: Isosorbide Mononitrate 30 MG TAB.ER.24H PO (08:13)
[2023-07-26] MEDS: carvediloL 12.5 MG TABLET PO ×2 (08:13→20:41)
[2023-07-26] MEDS: calcitrioL 0.25 MCG CAPSULE PO ×2 (08:13→20:41)
[2023-07-26] MEDS: hydrALAZINE HCl 10 MG TABLET PO ×3 (08:13→20:41)
[2023-07-26] MEDS: Empagliflozin 10 MG TABLET PO (08:13)
[2023-07-26] MEDS: Cholecalciferol (Vitamin D3) 25 MCG TABLET 50 MCG PO (08:13)
[2023-07-26] MEDS: Sertraline HCL 25 MG TABLET PO (08:13)
[2023-07-26] MEDS: Clopidogrel Bisulfate 75 MG TABLET PO (08:13)
[2023-07-26] MEDS: Sodium Bicarbonate 650 MG TABLET PO ×2 (08:13→20:41)
--- NOTE | 2023-07-26 09:10 | MHC.CM.PN ---
Addendum entered by Shayna Roman 07/26/23 10:28: Per MD rounds discharge is anticipated tomorrow. [facility] will provide home services. Original Note: IMM 07/24/23 PT eval recommendation is home with services. Met with patient to discuss discharge plan. She stated that she has received services from [facility] in the past. [facility] is her preference for home services. A referral has been sent to the agency. DP home with [facility] resume [employer]. Patient will arrange for a ride home at discharge.
--- NOTE | 2023-07-26 09:42 | P.PNIM_ITS ---
Subjective Subjective Date of Service: 07/26/23 Interval History: Seen in follow up for chf exacerbation, anasarca Interval history: there is less swelling in legs, and no sob. Review of Systems Review of Systems: Yes all other systems are reviewed and are negative Physical Exam 2 Vital Signs: Vital Signs: Last Vital Signs Temp 98.1 F 07/26/23 07:20 Pulse 96 07/26/23 08:35 Resp 20 07/26/23 07:57 BP 132/61 07/26/23 08:35 Pulse Ox 94 07/26/23 07:20 O2 Del Method Room Air 07/26/23 07:20 O2 Flow Rate 2 07/26/23 03:42 Oxygen Flow Rate 3 07/23/23 15:34 BMI result Body Mass Index 32.0 Objective Data Active Medications Acetaminophen (Acetaminophen 325 Mg Tablet) 650 mg PO Q6H PRN PRN Reason: Pain, Mild (Pain Scale 1-3) Last Admin: 07/25/23 19:15 Dose: 650 mg Documented By: FAY Aspirin (Aspirin Enteric Coated 81 Mg Tablet.) 81 mg PO DAILY@1200 [facility] Last Admin: 07/25/23 12:55 Dose: 81 mg Documented By: LOWELL Atorvastatin Calcium (Atorvastatin Calcium 80 Mg Tablet) 80 mg PO BEDTIME [facility] Last Admin: 07/25/23 19:16 Dose: 80 mg Documented By: FAY Calcitriol (Calcitriol 0.25 Mcg Capsule) 0.25 mcg PO BID [facility] Last Admin: 07/26/23 08:13 Dose: 0.25 mcg Documented By: LOWELL Calcium Carbonate (Calcium Carbonate 500 Mg Tablet) 500 mg PO TID@1200,1800,2100 [facility] Last Admin: 07/25/23 19:16 Dose: 500 mg Documented By: FAY Carvedilol (Carvedilol 12.5 Mg Tablet) 12.5 mg PO BID [facility]; Protocol Last Admin: 07/26/23 08:13 Dose: 12.5 mg Documented By: LOWELL Clopidogrel Bisulfate (Clopidogrel Bisulfate 75 Mg Tablet) 75 mg PO DAILY [facility] Last Admin: 07/26/23 08:13 Dose: 75 mg Documented By: LOWELL Empagliflozin (Empagliflozin 10 Mg Tablet) 10 mg PO DAILY [facility] Last Admin: 07/26/23 08:13 Dose: 10 mg Documented By: LOWELL Ferrous Sulfate (Ferrous Sulfate 324 Mg Tablet.Dr) 324 mg PO DAILY [facility] Last Admin: 07/26/23 08:13 Dose: 324 mg Documented By: LOWELL Fluticasone/Vilanterol (Fluticasone/Vilanterol 200/25 Blst.W.Dev) 1 puff INHALE RDAILY [facility] Last Admin: 07/26/23 07:55 Dose: 1 puff Documented By: SHON Furosemide (Furosemide 40 Mg/4 Ml Vial) 80 mg IVPUSH BID@0900,1800 [facility]; Protocol Last Admin: 07/26/23 08:12 Dose: 80 mg Documented By: LOWELL Gabapentin (Gabapentin 300 Mg Capsule) 300 mg PO BEDTIME [facility] Last Admin: 07/25/23 19:16 Dose: 300 mg Documented By: FAY Glucose (Glucose Gel 15 Gm Gel..Gram.) 15 gm PO Q15M PRN; Protocol PRN Reason: per Hypoglycemia Standing Ord. Heparin Sodium (Porcine) (Heparin Sodium,Porcine 5,000 Unit/Ml Vial) 5,000 unit SUBCUT Q12H [facility] Last Admin: 07/26/23 08:12 Dose: 5,000 unit Documented By: LOWELL Hydralazine HCl (Hydralazine Hcl 10 Mg Tablet) 10 mg PO TID [facility]; Protocol Last Admin: 07/26/23 08:13 Dose: 10 mg Documented By: LOWELL Dextrose (D10) 250 mls @ 750 mls/hr IV Q15M PRN; Protocol PRN Reason: per Hypoglycemia Standing Ord. Insulin Human Lispro (Insulin Lispro 100 Unit/Ml 3 Ml Vial) 0 unit SUBCUT QIDACHS [facility]; Protocol Last Admin: 07/26/23 07:36 Dose: Not Given Documented By: LOWELL Non-Admin Reason: No Insulin Coverage Isosorbide Mononitrate (Isosorbide Mononitrate 30 Mg Tab.Er.24h) 30 mg PO DAILY [facility]; Protocol Last Admin: 07/26/23 08:13 Dose: 30 mg Documented By: LOWELL Levothyroxine Sodium (Levothyroxine Sodium 150 Mcg Tablet) 150 mcg PO DAILY@0600 [facility] Last Admin: 07/26/23 06:13 Dose: 150 mcg Documented By: FAY Loratadine (Loratadine 10 Mg Tablet) 10 mg PO DAILY PRN PRN Reason: allergies Last Admin: 07/25/23 07:48 Dose: 10 mg Documented By: LOWELL Montelukast Sodium (Montelukast Sodium 10 Mg Tablet) 10 mg PO BEDTIME [facility] Last Admin: 07/25/23 19:16 Dose: 10 mg Documented By: FAY Ondansetron HCl (Ondansetron Hcl 4 Mg/2 Ml Vial) 4 mg IVPUSH Q8H PRN PRN Reason: Nausea and Vomiting Potassium Chloride (Potassium Chloride Er 20 Meq Tab.Er.Prt) 20 meq PO DAILY@1800 [facility] Last Admin: 07/25/23 17:39 Dose: 20 meq Documented By: LOWELL Senna (Sennosides 8.6 Mg Tablet) 17.2 mg PO BEDTIME PRN PRN Reason: Constipation Last Admin: 07/25/23 19:16 Dose: 17.2 mg Documented By: FAY Sertraline HCl (Sertraline Hcl 25 Mg Tablet) 25 mg PO DAILY [facility] Last Admin: 07/26/23 08:13 Dose: 25 mg Documented By: LOWELL Sodium Bicarbonate (Sodium Bicarbonate 650 Mg Tablet) 650 mg PO BID [facility] Last Admin: 07/26/23 08:13 Dose: 650 mg Documented By: LOWELL Sodium Chloride (0.9 % Sodium Chloride Flush 3 Ml Syringe) 3 ml IVFLUSH QSHIFT [facility] Last Admin: 07/26/23 08:12 Dose: 3 ml Documented By: LOWELL Tiotropium [place] (Tiotropium [place] 2.5 Mcg 1 Puff/2.5 Mcg Mist.Inhal) 2 puff INHALE RDAILY [facility] Last Admin: 07/26/23 07:55 Dose: 2 puff Documented By: JAMALSRAS Vitamin D (Cholecalciferol (Vitamin D3) 25 Mcg Tablet) 50 mcg PO DAILY [facility] Last Admin: 07/26/23 08:13 Dose: 50 mcg Documented By: LOWELL Labs 07/26/23 05:59 07/26/23 05:58 Labs: Laboratory Results - last 24 hr 07/23/23 07/25/23 07/25/23 15:53 06:11 11:13 MCV MCH MCHC RDW Plt Count MPV Immature Gran % (Auto) Neut % (Auto) Lymph % (Auto) [place] % (Auto) Eos % (Auto) Baso % (Auto) Lymph # (Auto) [place] # (Auto) Eos # (Auto) Baso # (Auto) Abs Immat Gran (auto) Absolute Neuts (auto) Absolute Nucleated RBC Nucleated RBC % (auto) Smear Path Review SEE NOTE Anion Gap Estim Creat Clear Calc Estimated GFR POC Glucose 139 H Random Glucose Calcium Blood Type A Negative Antibody Screen NEGATIVE Crossmatch See Detail 07/25/23 07/25/23 07/25/23 16:10 20:23 20:52 MCV MCH MCHC RDW Plt Count MPV Immature Gran % (Auto) Neut % (Auto) Lymph % (Auto) [place] % (Auto) Eos % (Auto) Baso % (Auto) Lymph # (Auto) [place] # (Auto) Eos # (Auto) Baso # (Auto) Abs Immat Gran (auto) Absolute Neuts (auto) Absolute Nucleated RBC Nucleated RBC % (auto) Smear Path Review Anion Gap Estim Creat Clear Calc Estimated GFR POC Glucose 156 H 65 132 H Random Glucose Calcium Blood Type Antibody Screen Crossmatch 07/25/23 07/26/23 07/26/23 21:54 05:58 05:59 MCV 86.1 86.2 MCH 28.7 28.9 MCHC 33.3 33.5 RDW 16.8 H 16.7 H Plt Count 123 L 139 L MPV 10.3 10.2 Immature Gran % (Auto) 0.4 0.2 Neut % (Auto) 67.1 60.0 Lymph % (Auto) 15.[address] [place] % (Auto) 10.1 12.0 H Eos % (Auto) 6.0 H 6.4 H Baso % (Auto) 0.7 1.0 Lymph # (Auto) 0.[address] [place] # (Auto) 0.6 0.6 Eos # (Auto) 0.3 0.3 Baso # (Auto) 0.0 0.1 Abs Immat Gran (auto) 0.02 0.01 Absolute Neuts (auto) 3.7 3.1 Absolute Nucleated RBC 0.000 0.000 Nucleated RBC % (auto) 0.0 0.0 Smear Path Review Anion Gap 19 Estim Creat Clear Calc 9.5 Estimated GFR 8 POC Glucose Random Glucose 94 Calcium 7.1 L Blood Type Antibody Screen Crossmatch 07/26/23 07:20 MCV MCH MCHC RDW Plt Count MPV Immature Gran % (Auto) Neut % (Auto) Lymph % (Auto) [place] % (Auto) Eos % (Auto) Baso % (Auto) Lymph # (Auto) [place] # (Auto) Eos # (Auto) Baso # (Auto) Abs Immat Gran (auto) Absolute Neuts (auto) Absolute Nucleated RBC Nucleated RBC % (auto) Smear Path Review Anion Gap Estim Creat Clear Calc Estimated GFR POC Glucose 102 Random Glucose Calcium Blood Type Antibody Screen Crossmatch Assessment and Plan (1) Acute hypoxemic respiratory failure: Status: Acute (2) Anasarca: Status: Acute (3) CHF exacerbation: Status: Acute (4) Anemia: Status: Acute (5) CKD (chronic kidney disease) stage 5, GFR less than 15 ml/min: Status: Acute Plan 67-year-old female with history of insulin-dependent type 2 diabetes, hypertension, hyperlipidemia, history of thyroid cancer s/p thyroidectomy with postsurgical hypothyroidism and hypoparathyroidism, CKD stage 5, CAD, and asthma/COPD overlap syndrome admitted for further management of CHF exacerbation and anasarca related to ESRD #Acute a CHF exacerbation with acute hypoxemic respiratory failure -30 lb weight gain at home in the last month, dyspnea on exertion, orthopnea, anasarca -in the setting of esrd -CXR shows evidence of moderate CHF with pulmonary vascular congestion. BNP 723 --> 1161 -continue lasix at 80mg BID per nephrology -cardiac diet -strict I&O, -2.5ml recorded for admission -daily weights -cardiology input appreciated -continue supplemental O2 and wean as tolerated per protocol -follow renal function/lytes #Anasarca -r/t above/esrd -plan as above -nephrology consult #CKD stage 5/ESRD not yet on HD -creatinine 4.97-->4.83-->4.81, stable overall, baseline -electrolytes normal except CO2 16, no indication for emergent dialysis -nephrology input appreciated -avoid nephrotoxins -follow renal function/lytes #acute on chronic normocytic anemia -likely r/t above/chronic disease, but will check stool occult blood -hgb 7.4--> 6.6. Transfuse 1 unit PRBC 07/23, keep hgb >7.0. H/H 6.7/21.6%. Tranfused 1 unit PRBC again 07/24-> h/h 8.8/.3 -iron studies pending. If transferrin sat >20%, give procrit per nephro -follow h/h # hypertension -Per nephro- add imdur 30mg daily, change metoprolol to coreg 12.5mg BID, add hydralazine 10mg TID #Wound R groin -s/p left SFA plasty/aortogram with right sided access -no evidence of acute infection. No sepsis -wound rn consult #SIRS criteria -tachycardia and tachypnea r/t respiratory distress in setting of volume overload. No evidence of infection. no sepsis # insulin-dependent type 2 diabetes without hyperglycemia -dose adjusted basal insulin -POC glucose, diabetic diet -Admelog on sliding scale -hold oral antihyperglycemics # COPD -no acute exacerbation -albuterol p.r.n.-continue maintenance inhalers # postoperative hypothyroidism with history of unspecified thyroid cancer -continue levothyroxine # PAD -s/p left SFA plasty and aortogram on 07/11 with wound to R groin without evidence of infection -continue DAPT. DC cilostazol per cardiology as contraindicated in CHF. If persistent anemia/concern for bleeding (low at this time), consider dc asa if cleared by vascular surgery #CAD/HLD -continue asa, bb, statin -no chest pain dvt prophylaxis- heparin Full code Patient requires ongoing inpt stay for ongoing IV diuresis given significant volume overload with anasarca in setting of ESRD requiring IV diuresis, expert consultation, and possible HD. She will also require blood tranfusion for acute on chronic anemia with close monitoring of h/h Quality Stroke Does the patient have a stroke diagnosis?: No VTE Prior VTE?: No VTE Risk Level:: Medical - moderate - high VTE Device Contraindication: Treatment Not Indicated VTE Drug Contraindication: N/A - Med Ordered
[2023-07-26 11:17] LABS: Glucose, Whole Blood 189 mg/dL (60-115)
[2023-07-26] MEDS: Insulin Lispro 100 UNIT/ML 3 ML VIAL SUBCUT ×2 (11:49→17:18)
--- NOTE | 2023-07-26 12:46 | P.CNGI_ITS ---
History of Present Illness Data of Consult Service Date: 07/26/23 Requesting physician: Dolores Benites Primary Care Provider: Senait Pal MD [facility] Reason for consult: ? GI Bleed This is a 67-year-old female with past medical history of advanced CKD stage 5, peripheral vascular disease, hypertension, smoking, who presented to the hospital for shortness of breath and found to have CHF exacerbation as well as further deterioration of her kidney function. Gastroenterology has been consulted for worsening anemia. Patient reports that she was seen by her PCP for worsening shortness of breath who recommended that she present to the emergency room. She does not report any abdominal pain, nausea, vomiting, change in bowel habits. No melena or hematochezia. H&H trend reviewed and appears that has had hemoglobin of less than 9 since earlier this year with normocytic MCV. And thrombocytopenia. This correlates with sharp rise in creatinine around the same time. Iron studies reviewed and has low iron stores. Last colo 2011: No polyps. Repeat recommended in 10 years. Review of Systems 2 Review of Systems: Yes all other systems are reviewed and are negative PMFSH Past Medical History Medical History CHF exacerbation Anemia CKD (chronic kidney disease) stage 5, GFR less than 15 ml/min Hypocalcemia Nicotine dependence, cigarettes, uncomplicated Atherosclerotic cardiovascular disease Thyroid cancer (~2008) 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) Hypothyroidism associated with surgical procedure (~2008) Uncontrolled type 2 diabetes mellitus with hyperglycemia (~1986) Pneumonitis ARDS (adult respiratory distress syndrome) Neuropathy Asthma-COPD overlap syndrome Anemia HTN (hypertension) Hypercholesteremia Family History Family History Mother Hypertension Diabetes Father AA (alcohol abuse) Surgical History Surgical History History of thyroidectomy History of back surgery History of 2 sections History of angioplasty History of amputation of left great toe Social History Social History Household Members: Family Housing: Apartment Do you presently have 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 or other home services: Yes ([employer]) Alcohol intake: never 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) 81 mg PO DAILY@1200 [facility] Last Admin: 07/25/23 12:55 Dose: 81 mg Atorvastatin Calcium (Atorvastatin Calcium 80 Mg Tablet) 80 mg PO BEDTIME [facility] Last Admin: 07/25/23 19:16 Dose: 80 mg Calcitriol (Calcitriol 0.25 Mcg Capsule) 0.25 mcg PO BID [facility] Last Admin: 07/26/23 08:13 Dose: 0.25 mcg Calcium Carbonate (Calcium Carbonate 500 Mg Tablet) 500 mg PO TID@1200,1800,2100 [facility] Last Admin: 07/26/23 11:49 Dose: 500 mg Carvedilol (Carvedilol 12.5 Mg Tablet) 12.5 mg PO BID [facility]; Protocol Last Admin: 07/26/23 08:13 Dose: 12.5 mg Clopidogrel Bisulfate (Clopidogrel Bisulfate 75 Mg Tablet) 75 mg PO DAILY [facility] Last Admin: 07/26/23 08:13 Dose: 75 mg Empagliflozin (Empagliflozin 10 Mg Tablet) 10 mg PO DAILY [facility] Last Admin: 07/26/23 08:13 Dose: 10 mg Ferrous Sulfate (Ferrous Sulfate 324 Mg Tablet.) 324 mg PO DAILY [facility] Last Admin: 07/26/23 08:13 Dose: 324 mg Fluticasone/Vilanterol (Fluticasone/Vilanterol 200/25 Blst.W.Dev) 1 puff INHALE RDAILY [facility] Last Admin: 07/26/23 07:55 Dose: 1 puff Furosemide (Furosemide 40 Mg/4 Ml Vial) 80 mg IVPUSH BID@0900,1800 [facility]; Protocol Last Admin: 07/26/23 08:12 Dose: 80 mg Gabapentin (Gabapentin 300 Mg Capsule) 300 mg PO BEDTIME [facility] Last Admin: 07/25/23 19:16 Dose: 300 mg Glucose (Glucose Gel 15 Gm Gel..Gram.) 15 gm PO Q15M PRN; Protocol PRN Reason: per Hypoglycemia Standing Ord. Heparin Sodium (Porcine) (Heparin Sodium,Porcine 5,000 Unit/Ml Vial) 5,000 unit SUBCUT Q12H [facility] Last Admin: 07/26/23 08:12 Dose: 5,000 unit Hydralazine HCl (Hydralazine Hcl 10 Mg Tablet) 10 mg PO TID [facility]; Protocol Last Admin: 07/26/23 08:13 Dose: 10 mg Dextrose (D10) 250 mls @ 750 mls/hr IV Q15M PRN; Protocol PRN Reason: per Hypoglycemia Standing Ord. Insulin Human Lispro (Insulin Lispro 100 Unit/Ml 3 Ml Vial) 0 unit SUBCUT QIDACHS [facility]; Protocol Last Admin: 07/26/23 11:49 Dose: 2 unit Isosorbide Mononitrate (Isosorbide Mononitrate 30 Mg Tab.Er.24h) 30 mg PO DAILY [facility]; Protocol Last Admin: 07/26/23 08:13 Dose: 30 mg Levothyroxine Sodium (Levothyroxine Sodium 150 Mcg Tablet) 150 mcg PO DAILY@0600 [facility] Last Admin: 07/26/23 06:13 Dose: 150 mcg Loratadine (Loratadine 10 Mg Tablet) 10 mg PO DAILY PRN PRN Reason: allergies Last Admin: 07/25/23 07:48 Dose: 10 mg Montelukast Sodium (Montelukast Sodium 10 Mg Tablet) 10 mg PO BEDTIME [facility] Last Admin: 07/25/23 19:16 Dose: 10 mg Ondansetron HCl (Ondansetron Hcl 4 Mg/2 Ml Vial) 4 mg IVPUSH Q8H PRN PRN Reason: Nausea and Vomiting Potassium Chloride (Potassium Chloride Er 20 Meq Tab.Er.Prt) 20 meq PO DAILY@1800 [facility] Last Admin: 07/25/23 17:39 Dose: 20 meq Senna (Sennosides 8.6 Mg Tablet) 17.2 mg PO BEDTIME PRN PRN Reason: Constipation Last Admin: 07/25/23 19:16 Dose: 17.2 mg Sertraline HCl (Sertraline Hcl 25 Mg Tablet) 25 mg PO DAILY [facility] Last Admin: 07/26/23 08:13 Dose: 25 mg Sodium Bicarbonate (Sodium Bicarbonate 650 Mg Tablet) 650 mg PO BID [facility] Last Admin: 07/26/23 08:13 Dose: 650 mg Sodium Chloride (0.9 % Sodium Chloride Flush 3 Ml Syringe) 3 ml IVFLUSH QSHIFT [facility] Last Admin: 07/26/23 08:12 Dose: 3 ml Tiotropium [place] (Tiotropium [place] 2.5 Mcg 1 Puff/2.5 Mcg Mist.Inhal) 2 puff INHALE RDAILY [facility] Last Admin: 07/26/23 07:55 Dose: 2 puff Vitamin D (Cholecalciferol (Vitamin D3) 25 Mcg Tablet) 50 mcg PO DAILY [facility] Last Admin: 07/26/23 08:13 Dose: 50 mcg Home Medications ?Medication ?Instructions ?Recorded ?Confirmed ?Last Taken ?Type cilostazol 100 mg tablet 100 mg PO BID@1200,2100 05/17/20 09/05/23 08/17/20 20:00 History ferrous sulfate 325 mg (65 mg 1 tab PO QAM 05/17/20 09/05/23 08/17/20 08:30 History iron) tablet blood sugar diagnostic (FreeStyle #10 ea 05/30/21 09/05/23 Unknown History Lite Strips) insulin aspart U-100 100 unit/mL 8 unit subcut TIDAC 05/30/21 09/05/23 Unknown History (3 mL) subcutaneous pen (Novolog FlexPen U-100 Insulin aspart) lancets 33 gauge (TRUEplus Lancets) #100 ea 05/30/21 09/05/23 Unknown History cholecalciferol (vitamin D3) 50 50 mcg PO DAILY 04/24/22 09/05/23 Unknown History mcg (2,000 unit) tablet dapagliflozin propanediol 5 mg 5 mg PO DAILY 04/24/22 09/05/23 Unknown History tablet (Farxiga) linagliptin 5 mg tablet (Tradjenta) 5 mg PO DAILY@1200 04/24/22 09/05/23 Unknown History potassium chloride 20 mEq 20 meq PO DAILY@1800 04/24/22 09/05/23 Unknown History tablet,extended release(part/cryst) pen needle, diabetic 32 gauge x #50 ea 05/03/22 09/05/23 Unknown History (Pentips) aspirin 81 mg tablet,delayed 81 mg PO DAILY@1200 06/20/22 09/05/23 Unknown History release atorvastatin 80 mg tablet 80 mg PO BEDTIME 06/20/22 09/05/23 Unknown History clopidogrel 75 mg tablet 75 mg PO QAM 06/20/22 09/05/23 Unknown History montelukast 10 mg tablet 10 mg PO BEDTIME 06/20/22 09/05/23 Unknown History sertraline 25 mg tablet 25 mg PO DAILY 06/20/22 09/05/23 Unknown History levothyroxine 150 mcg tablet 150 mcg PO DAILY 03/21/23 09/05/23 Unknown History gabapentin 300 mg capsule 300 mg PO BEDTIME 04/25/23 09/05/23 Unknown History budesonide-formoterol HFA 160 2 puff inhalation BID 07/23/23 09/05/23 Unknown History mcg-4.5 mcg/actuation aerosol inhaler calcium carbonate (Calcium Antacid) 200 mg PO TID@1200,1800,2100 07/23/23 09/05/23 Unknown History cetirizine 5 mg tablet 5 mg PO DAILY PRN allergies 07/23/23 09/05/23 Unknown History insulin degludec 100 unit/mL (3 13 unit subcut DAILY@1400 PRN 07/23/23 09/05/23 Unknown History mL) subcutaneous pen (Tresiba Hyperglycemia FlexTouch U-100 insulin) umeclidinium 62.5 mcg/actuation 1 inh inhalation QAM 07/23/23 09/05/23 Unknown History blister powder for inhalation (Incruse Ellipta) Physical Exam 2 Vital Signs: Vital Signs: Last Vital Signs Temp 98.1 F 07/26/23 07:20 Pulse 96 07/26/23 08:35 Resp 20 07/26/23 07:57 BP 132/61 07/26/23 08:35 Pulse Ox 94 07/26/23 07:20 O2 Del Method Room Air 07/26/23 07:20 O2 Flow Rate 2 07/26/23 03:42 Oxygen Flow Rate 3 07/23/23 15:34 BMI result Body Mass Index 32.0 Elderly female Frail-appearing Nonicteric Abdomen soft nontender Mild bibasilar crackles Lower extremity edema Results Labs 07/27/23 10:13 07/27/23 10:13 Labs: Short CBC 07/25/23 07/26/23 Range/Units 21:54 05:59 WBC 5.5 5.2 (4.8-10.8) X10*3/uL Hgb 8.5 L D 8.8 L (12.0-16.0) g/dl Hct 25.5 L 26.3 L (37.0-47.0) % Plt Count 123 L 139 L (160-400) X10*3/uL BMP 07/26/23 05:58 Sodium 141 Potassium 3.9 Chloride 106 Carbon Dioxide 20 L BUN 90 H Creatinine 5.08 H* Calcium 7.1 L Assessment and Plan (1) CHF exacerbation: Status: Inactive (2) Anemia: Status: Inactive (3) CKD (chronic kidney disease) stage 5, GFR less than 15 ml/min: Status: Inactive (4) Antiplatelet or antithrombotic long-term use: Status: Acute Plan Has worsening anemia which is likely multifactorial in the setting of nutritional deficiency vs worsening renal function vs occult GI bleeding. No overt hemorrhage at this time, and therefore we will defer endoscopic evaluation in the favor of managing ongoing CHF exacerbation and possible need for [employer]. Recommendations: -start omeprazole 20mg PO once daily -agree with deescalating antiplatelet therapy to monotherapy if acceptable from cardiology and vascular standpoint -appreciate renal input re epogen -consider IV Venofer 200mg x 1 -monitor CBC as outpatient - if no definite improvement in chronic anemia despite measures above, can review indication for bidirectional endoscopy based on overall health status -Thrombocytopenia noted - consider US Abd to r/o underlying liver disease Thank you for allowing me to participate in her care. Please do not hesitate to reach out for questions or concerns. Procedures Date of Service Date of Service: 09/06/23
[2023-07-26 16:46] LABS: Glucose, Whole Blood 154 mg/dL (60-115)
[2023-07-26] MEDS: Potassium Chloride ER 20 MEQ TAB.ER.PRT PO (17:18)
[2023-07-26] MEDS: Omeprazole 20 MG CAPSULE.DR PO (17:19)
--- NOTE | 2023-07-26 19:04 | P.PNNP_ITS ---
Subjective Subjective Date of Service: 07/26/23 Interval history: Seen AM. Events noted. All recent data reviewed Physical Exam 2 Vital Signs: Vital Signs: Last Vital Signs Temp 97.5 F 07/26/23 15:17 Pulse 64 07/26/23 15:17 Resp 16 07/26/23 15:17 BP 129/58 L 07/26/23 17:19 Pulse Ox 95 07/26/23 15:17 O2 Del Method Room Air 07/26/23 15:17 O2 Flow Rate 2 07/26/23 03:42 Oxygen Flow Rate 3 07/23/23 15:34 BMI result Body Mass Index 32.0 Const: General: comfortable and no acute distress O rientation/consciousness: patient oriented x3 HEENT: Head: Yes normocephalic Mouth: Normal oral and palatal mucosa present Eyes: EOM: EOMs intact bilaterally Neck: Neck: Yes supple Resp: Auscultation: diminished lung sounds Cardio: Jugular venous distension: no JVD Rate: regular rate GI: Palpation (GI): Soft to palpation Auscultation: normal bowel sounds : General: Yes no CVA tenderness Back/Spine/Pelvis: Back: no CVA tenderness Skin: General skin exam: no rashes or lesions noted Neuro: General: patient oriented x3 and moves all extremities Extrem: General: Yes no pedal edema Objective Data Labs 07/26/23 05:59 07/26/23 05:58 Labs: Laboratory Results - last 24 hr 07/23/23 07/25/23 07/25/23 15:53 20:23 20:52 WBC RBC Hgb Hct MCV MCH MCHC RDW Plt Count MPV Immature Gran % (Auto) Neut % (Auto) Lymph % (Auto) [place] % (Auto) Eos % (Auto) Baso % (Auto) Lymph # (Auto) [place] # (Auto) Eos # (Auto) Baso # (Auto) Abs Immat Gran (auto) Absolute Neuts (auto) Absolute Nucleated RBC Nucleated RBC % (auto) Sodium Potassium Chloride Carbon Dioxide Anion Gap BUN Creatinine Estim Creat Clear Calc Estimated GFR POC Glucose 65 132 H Random Glucose Calcium Crossmatch See Detail 07/25/23 07/26/23 07/26/23 21:54 05:58 05:59 WBC 5.5 5.2 RBC 2.96 L 3.05 L Hgb 8.5 L D 8.8 L Hct 25.5 L 26.3 L MCV 86.1 86.2 MCH 28.7 28.9 MCHC 33.3 33.5 RDW 16.8 H 16.7 H Plt Count 123 L 139 L MPV 10.3 10.2 Immature Gran % (Auto) 0.4 0.2 Neut % (Auto) 67.1 60.0 Lymph % (Auto) 15.7 L 20.4 [place] % (Auto) 10.1 12.0 H Eos % (Auto) 6.0 H 6.4 H Baso % (Auto) 0.7 1.0 Lymph # (Auto) 0.9 L 1.1 L [place] # (Auto) 0.6 0.6 Eos # (Auto) 0.3 0.3 Baso # (Auto) 0.0 0.1 Abs Immat Gran (auto) 0.02 0.01 Absolute Neuts (auto) 3.7 3.1 Absolute Nucleated RBC 0.000 0.000 Nucleated RBC % (auto) 0.0 0.0 Sodium 141 Potassium 3.9 Chloride 106 Carbon Dioxide 20 L Anion Gap 19 BUN 90 H Creatinine 5.08 H* Estim Creat Clear Calc 9.5 Estimated GFR 8 POC Glucose Random Glucose 94 Calcium 7.1 L Crossmatch 07/26/23 07/26/23 07/26/23 07:20 11:13 16:43 WBC RBC Hgb Hct MCV MCH MCHC RDW Plt Count MPV Immature Gran % (Auto) Neut % (Auto) Lymph % (Auto) [place] % (Auto) Eos % (Auto) Baso % (Auto) Lymph # (Auto) [place] # (Auto) Eos # (Auto) Baso # (Auto) Abs Immat Gran (auto) Absolute Neuts (auto) Absolute Nucleated RBC Nucleated RBC % (auto) Sodium Potassium Chloride Carbon Dioxide Anion Gap BUN Creatinine Estim Creat Clear Calc Estimated GFR POC Glucose 102 189 H 154 H Random Glucose Calcium Crossmatch Procedures Date of Service Date of Service: 07/26/23 Assessment & Plan Assessment and plan (1) Anemia in chronic kidney disease (CKD): Status: Acute (2) Metabolic acidosis: Status: Acute (3) Secondary hyperparathyroidism (of renal origin): Status: Acute (4) CKD (chronic kidney disease) stage 5, GFR less than 15 ml/min: Status: Acute Plan [age] woman with advanced renal failure approaching end stage renal disease. Admitted with severe anemia. Status post transfusion. Iron deficient Will benefit from IV Venofer 200 mg daily X 5 days No signs or symptoms of uremia. ; No absolute indication to initiate dialysis today. She has been prepared for renal replacement therapy in the outpatient setting. C/W rest of current management for now Progress Note: Quality Stroke Does the patient have a stroke diagnosis?: No
[2023-07-26 20:25] LABS: Glucose, Whole Blood 140 mg/dL (60-115)
[2023-07-26] MEDS: Gabapentin 300 MG CAPSULE PO (20:41)
[2023-07-26] MEDS: Atorvastatin Calcium 80 MG TABLET PO (20:41)
[2023-07-26] MEDS: Montelukast Sodium 10 MG TABLET PO (20:41)
[2023-07-27 03:30] VITALS: BP 152/71; PULSE 66; RESP 16; TEMP 36.2; O2SAT 95
[2023-07-27] MEDS: Levothyroxine Sodium 150 MCG TABLET PO (05:22)
[2023-07-27] MEDS: Omeprazole 20 MG CAPSULE.DR PO (05:22)
[2023-07-27 08:00] VITALS: BP 153/69; PULSE 63; RESP 18; TEMP 36; O2SAT 98
[2023-07-27 08:01] VITALS: PULSE 66; RESP 16; O2SAT 93
[2023-07-27] MEDS: Tiotropium Bromide 2.5 mcg 1 PUFF/2.5 MCG MIST.INHAL 2 PUFF INHALE (08:01)
[2023-07-27] MEDS: Fluticasone/Vilanterol 200/25 BLST.W.DEV 1 PUFF INHALE (08:01)
[2023-07-27 08:08] LABS: Glucose, Whole Blood 104 mg/dL (60-115)
--- NOTE | 2023-07-27 09:27 | P.DS_ITS ---
DS: Providers Provider Date of Service: 07/27/23 Date of admission: 07/23/23 18:53 Primary care physician: Senait Pal MD Consults: 07/23/23 18:53 Consult to Nephrology Routine Consulting Provider: [facility] [place] [facility] Reason for consultation: anasarca, esrd/chf 07/23/23 19:56 Consult to Cardiology Routine Consulting Provider: [facility] [place] [facility] Reason for consultation: chf exacerbation in setting of esrd 07/23/23 20:02 Consult to Wound Care Routine Reason for consultation: wound R groin s/p Left aortogram/plasty 07/25/23 14:18 Consult to Gastroenterology Routine Consulting Provider: Denisha Vanegas Reason for consultation: ?gi bleed DS: Diagnosis Discharge Diagnosis (1) Anemia in chronic kidney disease (CKD): Status: Acute (2) Metabolic acidosis: Status: Acute (3) Secondary hyperparathyroidism (of renal origin): Status: Acute (4) CKD (chronic kidney disease) stage 5, GFR less than 15 ml/min: Status: Acute DS: Summary Hospital Course Hospital Course: admission hpi Chief Complaint: dyspnea 67-year-old female with history of insulin-dependent type 2 diabetes, hypertension, hyperlipidemia, history of thyroid cancer s/p thyroidectomy with postsurgical hypothyroidism and hypoparathyroidism, CKD stage 5, CAD, and asthma/COPD overlap syndrome presented to the ED from PCP office for evaluation of dyspnea on exertion, orthopnea, bilateral lower extremity edema, 30 lb weight gain over the past month. She has a dry cough but no fevers, chills, st, congestion, abd pain, n/v/d, palpitations, lighteadedness, headache, or chest pain. She was noted to be hypoxic on arrival at 86% on room air with increased work of breathing and placed on 3 L supplemental O2 via nasal cannula. She was also seen by her plumber helper yesterday was started on Lasix which she took yesterday and today without much improvement. She has had discussions about hemodialysis but has not yet started this. She also underwent left SFA plasty with aortogram on 07/11 with vascular surgery and has open wound that appers clean without surrounding erythema or warmth (right femoral access used). Since arrival, has been hypertensive to 188/85 and tachycardic to 103 with mild tachypnea. She was hypoxic and placed on 3 L supplemental O2 maintain a oximetry 95%. There is no leukocytosis. Has a chronic normocytic anemia with baseline H/H today of 7.4/73.4%. Creatinine 4.97, consistent wt patient's ckd, bun 65. Lytes normal except CO2 16, calcium 7.5. VBG reassuring with ph 7.34, pco2 29, hco3 16. Initial trop 39.6, repeat pending. BNP 723. Negative for COVID-19, RSV, influenza. Chest x-ray shows pulmonary vascular congestion and diffuse bilateral interstitial and alveolar pattern findings consistent with moderate congestive heart failure. In the ED, given 80 mg Lasix. hospital course: #Acute exacerbation of chronic systolic congestive heart failure (CHF) accompanied by acute hypoxemic respiratory failure?Patient reports a 30-pound weight gain over the past months. Clinically, she presented as hypervolemic with signs of anasarca, confirmed by evidence of heart failure on chest X-ray and elevated BNP levels. Treatment involved intravenous Lasix at a dosage of 80 mg daily, double her usual dose, alongside fluid intake restriction. The attending event specialist food demonstrator evaluated her and guided her management. Echocardiogram revealed an ejection fraction (EF) of 30%. Her condition has notably improved, with resolved hypoxia, a net negative fluid balance of 4 liters, and reduced leg swelling. The exacerbation of CHF likely stemmed from her concomitant chronic kidney disease (CKD), indicative of cardio-renal syndrome. With her improved status, Lasix dosage will be maintained at 80 mg daily, alongside continued adherence to a fluid restriction of approximately 1200 cc per day. Furthermore, she should monitor her weight daily, promptly informing her primary care physician (PCP) if she gains over 2 pounds within 24 hours, or if symptoms worsen, she should contact her doctor or seek assistance at the emergency department. Further medication adjustement including changing metoprolol to coreg, increasing hydralazine to 10 tid and adding imdur per nephrology recommendation. #Anasarca -r/t above/esrd -plan as above #CKD stage 5/ESRD not yet on HD -creatinine 4.97-->4.83-->4.81, stable overall, baseline -electrolytes normal except CO2 16, no indication for dialysis at this time -to follow up with Nephrology ([facility] ) on outpatient #acute on chronic normocytic anemia -likely r/t above/chronic disease, but will check stool occult blood -hgb 7.4--> 6.6. Tranfused 2 unit PRBC and now 8.8/26.3 -Will be managed with epogen on outpatient basis # hypertension -Per nephro- add imdur 30mg daily, change metoprolol to coreg 12.5mg BID, add hydralazine 10mg TID #Wound R groin -s/p left SFA plasty/aortogram with right sided access -no evidence of acute infection. No sepsis #SIRS criteria -tachycardia and tachypnea r/t respiratory distress in setting of volume overload. No evidence of infection. no sepsis # insulin-dependent type 2 diabetes without hyperglycemia -resume home regimen # COPD--resume home regimen # postoperative hypothyroidism with history of unspecified thyroid cancer -continue levothyroxine # PAD -s/p left SFA plasty and aortogram on 07/11 with wound to R groin without evidence of infection -continue DAPT. DC cilostazol per cardiology as contraindicated in CHF. If persistent anemia/concern for bleeding (low at this time), consider dc asa if cleared by vascular surgery #CAD/HLD -continue asa, bb, statin -no chest pain dvt prophylaxis- heparin Time Attestation Discharge Coordination Time (in mins): 45 Quality: Safe Use of Opioids Does Pt have an Active Cancer Diagnosis on the Problem List?: No Quality: Stroke Does the patient have a stroke diagnosis?: No Physical Exam Vital Signs: Vital Signs: Last Vital Signs Temp 96.8 F 07/27/23 08:00 Pulse 66 07/27/23 08:01 Resp 16 07/27/23 08:01 BP 153/69 H 07/27/23 08:00 Pulse Ox 98 07/27/23 08:00 O2 Del Method Room Air 07/27/23 08:00 O2 Flow Rate 2 07/26/23 03:42 Oxygen Flow Rate 3 07/23/23 15:34 BMI result Body Mass Index 32.0 DS: Data Data Completed and Pending Labs on day of discharge: Laboratory Results - last 24 hr 07/26/23 07/26/23 07/26/23 11:13 16:43 20:20 POC Glucose 189 H 154 H 140 H 07/27/23 07:31 POC Glucose 104 Discharge Plan Discharge Anticipated Discharge Date/Time: 07/27/23 09:36 Patient Disposition: Home Health Service Discharge Diagnosis: Acute on chronic systolic heart failure, cardiorenal syndrome Referrals: [facility] [Outside] - 1 Week Senait Pal MD [Primary Care Provider] - 1 Week Discharge Medications: New furosemide [Lasix] 80 mg tablet 80 mg PO QAM Qty: 90 0RF hydralazine 10 mg Tablet 10 mg PO TID Qty: 270 0RF Protocol: Hold for SBP< HOLD for SBP < : 90 carvedilol 12.5 mg Tablet 12.5 mg PO BID Qty: 180 0RF Protocol: Hold for SBP/HR < HOLD for SBP < : 90 HOLD for HR < : 60 isosorbide mononitrate 30 mg Tablet Extended Release 24 Hr 30 mg PO DAILY Qty: 180 0RF Protocol: Hold for SBP< HOLD for SBP < : 90 Continued calcitriol 0.25 mcg capsule 0.25 mcg PO BID Qty: 60 5RF cilostazol 100 mg tablet 100 mg PO BID@1200,2100 ferrous sulfate 325 mg (65 mg iron) tablet 1 tab PO QAM aspirin 81 mg tablet,delayed release (DR/EC) 81 mg PO DAILY@1200 atorvastatin 80 mg tablet 80 mg PO BEDTIME clopidogrel 75 mg tablet 75 mg PO QAM montelukast 10 mg tablet 10 mg PO BEDTIME cetirizine 5 mg tablet 5 mg PO DAILY PRN (Reason: allergies) calcium carbonate [Calcium Antacid] 200 mg calcium (500 mg) tablet,chewable 200 mg PO TID@1200,1800,2100 budesonide-formoterol 160-4.5 mcg/actuation HFA aerosol inhaler 2 puff INHALATION BID Incruse Ellipta 62.5 mcg/actuation blister with device 1 inh INHALATION QAM insulin degludec [Tresiba FlexTouch U-100] 100 unit/mL (3 mL) insulin pen 13 unit subcut DAILY@1400 PRN (Reason: Hyperglycemia) (DME) lancets [TRUEplus Lancets] 33 gauge misc See Rx Instructions topical .MEDSUPPLY Qty: 100 Rx Instructions: As directed insulin aspart U-100 [Novolog FlexPen U-100 Insulin] 100 unit/mL (3 mL) insulin pen 8 unit subcut TIDAC (DME) FreeStyle Lite Strips Strip See Rx Instructions Not Applicable .MEDSUPPLY Qty: 10 Rx Instructions: As directed (DME) pen needle, diabetic [Pentips] 32 gauge x 5/32 needle See Rx Instructions .ROUTE QID Qty: 50 Rx Instructions: As directed once a day Farxiga 5 mg tablet 5 mg PO DAILY Tradjenta 5 mg tablet 5 mg PO DAILY@1200 cholecalciferol (vitamin D3) 50 mcg (2,000 unit) tablet 50 mcg PO DAILY potassium chloride 20 mEq tablet,ER particles/crystals 20 meq PO DAILY@1800 sertraline 25 mg tablet 25 mg PO DAILY gabapentin 300 mg capsule 300 mg PO BEDTIME levothyroxine 150 mcg tablet 150 mcg PO DAILY Discontinued metoprolol tartrate 25 mg tablet 25 mg PO BID furosemide [Lasix] 40 mg tablet 40 mg PO DAILY Qty: 30 0RF Discharge Orders: Discharge Order (Routine); Ordered 07/27/23 Ordered By: Alex Monzon Diet: Diabetic diet Activity on Discharge: As tolerated Stand Alone Forms: Patient Portal Discharge page Print Language: French Care Plan Goals: improve quality of life and reduce symptoms of heartf failure Health Concerns: chronic heart failure chronic kidney disease anemia of chronic disease Plan of Treatment: Take Lasix as directed, now 80 mg daily instead of 40 mg daily stop taking metoprolol and instead take Coreg avoid drinking too much water weight yourself daily and if you gain more than 2 Ib a day or if you become more short of breath, call your Doctor Assessment: follow up with your doctor in a week, follow up Doctor Discharge Date/Time: 07/27/23 13:06
[2023-07-27] MEDS: Sodium Bicarbonate 650 MG TABLET PO (09:30)
[2023-07-27] MEDS: Cholecalciferol (Vitamin D3) 25 MCG TABLET 50 MCG PO (09:30)
[2023-07-27] MEDS: carvediloL 12.5 MG TABLET PO (09:31)
[2023-07-27] MEDS: Sertraline HCL 25 MG TABLET PO (09:31)
[2023-07-27] MEDS: Clopidogrel Bisulfate 75 MG TABLET PO (09:31)
[2023-07-27] MEDS: Ferrous Sulfate 324 MG TABLET.DR PO (09:31)
[2023-07-27] MEDS: hydrALAZINE HCl 10 MG TABLET PO (09:31)
[2023-07-27] MEDS: Isosorbide Mononitrate 30 MG TAB.ER.24H PO (09:31)
[2023-07-27] MEDS: Furosemide 40 MG/4 ML VIAL 80 MG IVPUSH (09:31)
[2023-07-27] MEDS: calcitrioL 0.25 MCG CAPSULE PO (09:31)
[2023-07-27] MEDS: Empagliflozin 10 MG TABLET PO (09:31)
[2023-07-27] MEDS: Heparin Sodium,Porcine 5,000 UNIT/ML VIAL 5000 UNIT SUBCUT (09:32)
[2023-07-27] MEDS: 0.9 % Sodium Chloride Flush 3 ML SYRINGE IVFLUSH (09:34)
[2023-07-27 10:21] LABS: Hematocrit 28.6 % (37.0-47.0); Hemoglobin 9.4 g/dl (12.0-16.0); Mean Corpuscular HGB Conc 32.9 g/dl (31.0-35.0); Mean Corpuscular Hemoglobin 28.7 pg (27.0-33.0); Mean Corpuscular Volume 87.2 fL (80.0-98.0); Mean Platelet Volume 9.3 fL (9.4-12.3); Platelet Count 141 X10*3/uL (160-400); Red Blood Count 3.28 X10*6/uL (4.20-5.50); White Blood Count 6.3 X10*3/uL (4.8-10.8)
[2023-07-27 10:36] LABS: Creatinine Clr Calc Pharmacy 9.4; Estimated Glomerular Filt Rate 8
[2023-07-27 10:37] LABS: Anion Gap 18 (12-20); Blood Urea Nitrogen 94 mg/dL (9-16); Calcium 7.3 mg/dL (8.4-10.2); Carbon Dioxide 25 mmol/L (22-29); Chloride 101 mmol/L (96-108); Glucose Random 185 mg/dL (60-115); Potassium 4.1 mmol/L (3.3-5.1); Sodium 140 mmol/L (135-145)
[2023-07-27 11:28] LABS: Glucose, Whole Blood 163 mg/dL (60-115)
--- NOTE | 2023-07-27 11:49 | P.F2F_ITS ---
Service Date Service Date: 07/27/23 Encounter Date of encounter: 07/27/23 Reasons for Services Signs and symptoms assessed: shortness of breath due to heart failure Reason for prison: medication management and teach disease management Homebound: Leaving the home is medically contraindicated at this time without the asist of a device and/or another person due th the listed conditions above and below. Reason homebound: shortness of breath with minimal effort Homebound supporting statement: homebound due to advanced heart failure causing shortness of breath at rest and with minimal effort and therefore needs the assistance of another person Certification: Based on the above findings, I certify that this patient is confined to the home and needs intermittent prison care, physical therapy and/or speech therapy, or continues to need occupational therapy. The patient is under my care, and I have initiated the establishment of the plan of care. The patient will be followed by a physician who will periodically review the plan of care. Time Spent With Patient Time: Total time managing care of this patient today ____ minutes.
[2023-07-27] MEDS: Insulin Lispro 100 UNIT/ML 3 ML VIAL SUBCUT (12:15)
--- NOTE | 2023-07-27 12:23 | MHC.CM.PN ---
PT IS DCD TODAY HVNS NOTIFIED OF DC
[2023-07-28 16:59] LABS: VITAMIN D (1,25 OH) D3 42 pg/mL; Vit D (1,25-Dihydroxy) Total 42 pg/mL (18-72); Vitamin D (1,25 OH) D2 <8 pg/mL
== END 2023-07-27 13:06 | disposition home health service (06) | DRG 291 ==
LOC: HO.ED 16:29 → HO.EDOVER 19:02 → HO.S3 07-24 17:07
PROVIDERS: Admitting Provider Physician Assistant; Emergency Provider Emergency Medicine; PCP Family Medicine; Visit Provider Internal Medicine
DX: I13.2 Hypertensive heart and chronic kidney disease with heart failure and with stage 5 chronic kidney disease, or end stage renal disease (principal); I50.23 Acute on chronic systolic (congestive) heart failure; N18.5 Chronic kidney disease, stage 5; E87.20 Acidosis, unspecified; N25.81 Secondary hyperparathyroidism of renal origin; R65.10 Systemic inflammatory response syndrome (SIRS) of non-infectious origin without acute organ dysfunction; E11.22 Type 2 diabetes mellitus with diabetic chronic kidney disease; E11.51 Type 2 diabetes mellitus with diabetic peripheral angiopathy without gangrene; E89.0 Postprocedural hypothyroidism; D63.1 Anemia in chronic kidney disease; Z85.850 Personal history of malignant neoplasm of thyroid; E11.40 Type 2 diabetes mellitus with diabetic neuropathy, unspecified; I25.10 Atherosclerotic heart disease of native coronary artery without angina pectoris; Z20.822 Contact with and (suspected) exposure to COVID-19; Z95.1 Presence of aortocoronary bypass graft; Z79.4 Long term (current) use of insulin; Z79.02 Long term (current) use of antithrombotics/antiplatelets; Z79.82 Long term (current) use of aspirin; Z79.890 Hormone replacement therapy; Z79.899 Other long term (current) drug therapy
CPT/HCPCS: 0241U; 36415; 71045; 76700; 80048; 80053; 82652; 82803; 82947; 83540; 83880; 83970; 84484; 85025; 85027; 86850; 86900; 86901; 86923; 93005; 93306; 97162; 99285; J1644; J1940; P9016; Q9957

== ENCOUNTER 2023-07-23 18:53 | Outpatient (BNV) | payer OTHER, SELFPAY | END 2023-07-24 07:00 | PROVIDERS: Admitting Provider Physician Assistant; Emergency Provider Emergency Medicine; PCP Family Medicine; Visit Provider Internal Medicine Cardiovascular Disease | DX: I27.21 Secondary pulmonary arterial hypertension (principal); I50.9 Heart failure, unspecified | CPT/HCPCS: 93306 ==

== ENCOUNTER → 2023-07-23 18:53 | Outpatient (BNV) | payer OTHER, SELFPAY | PROVIDERS: Admitting Provider Physician Assistant; Emergency Provider Emergency Medicine; PCP Family Medicine; Visit Provider Internal Medicine | DX: I50.9 Heart failure, unspecified (principal); D64.9 Anemia, unspecified; N18.5 Chronic kidney disease, stage 5; Z79.02 Long term (current) use of antithrombotics/antiplatelets | CPT/HCPCS: 99222 ==

== ENCOUNTER → 2023-07-23 18:53 | Outpatient (BNV) | payer OTHER, SELFPAY | PROVIDERS: Admitting Provider Physician Assistant; Emergency Provider Emergency Medicine; PCP Family Medicine; Visit Provider Internal Medicine Nephrology | DX: N18.5 Chronic kidney disease, stage 5 (principal); D63.1 Anemia in chronic kidney disease; E87.21 Acute metabolic acidosis; N25.81 Secondary hyperparathyroidism of renal origin | CPT/HCPCS: 99223; 99232 ==

== ENCOUNTER → 2023-07-23 18:53 | Outpatient (BNV) | payer OTHER, SELFPAY | PROVIDERS: Admitting Provider Physician Assistant; Emergency Provider Emergency Medicine; PCP Family Medicine; Visit Provider Physician Assistant | DX: N18.5 Chronic kidney disease, stage 5 (principal); N25.81 Secondary hyperparathyroidism of renal origin; D63.1 Anemia in chronic kidney disease; E87.20 Acidosis, unspecified | CPT/HCPCS: 99223; 99232; 99239; G0180 ==

== ENCOUNTER → 2023-07-23 18:53 | Outpatient (BNV) | payer OTHER, SELFPAY | PROVIDERS: Admitting Provider Physician Assistant; Emergency Provider Emergency Medicine; PCP Family Medicine; Visit Provider Internal Medicine Cardiovascular Disease | DX: I50.9 Heart failure, unspecified (principal); D64.9 Anemia, unspecified; N18.5 Chronic kidney disease, stage 5 | CPT/HCPCS: 93010; 99223 ==

== ENCOUNTER 2023-07-30 13:33 | Outpatient (AMB) | payer OTHER, SELFPAY ==
--- NOTE | 2023-07-30 13:45 | MHC.OFFVIS ---
Intake Visit Reasons: 2 week follow up left leg angio Intake Note: Patient presents for a 2 week follow up s/p left leg angiogram. Patient states she feels fine after her angiogram but that she has some concerns about her right great toe; believes it is infected. Accompanied by: Grand Child Allergies ALLYSSA Inhibitors [ALLYSSA INHIBITORS] Allergy (Mild, Verified 07/30/23 13:48) COUGH cilostazol [CILOSTAZOL] Allergy (Mild, Verified 07/30/23 13:48) COUGH HPI HPI 2 week follow up left leg angio: Details: Very pleasant 67-year-old female presents for follow-up status post left lower extremity angiogram. She reports her leg feels fairly well. She has no difficulty ambulating. She does now presents for routine follow-up. She has no interval issues. [facility] Medical History CHF exacerbation Anemia CKD (chronic kidney disease) stage 5, GFR less than 15 ml/min Hypocalcemia Nicotine dependence, cigarettes, uncomplicated Atherosclerotic cardiovascular disease Thyroid cancer (~2008) 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) Hypothyroidism associated with surgical procedure (~2008) Uncontrolled type 2 diabetes mellitus with hyperglycemia (~1986) Pneumonitis ARDS (adult respiratory distress syndrome) Neuropathy Asthma-COPD overlap syndrome Anemia HTN (hypertension) Hypercholesteremia Surgical History History of thyroidectomy History of back surgery History of 2 sections History of angioplasty History of amputation of left great toe Family History Mother Hypertension Diabetes Father AA (alcohol abuse) Social History Household Members: Family Housing: Apartment Do you presently have 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 or other home services: Yes ([employer]) Alcohol intake: never 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 Tobacco Use Status: Former Tobacco user Years Smoked: 45 Advance Directives Date on File: 09/13/20 service: No Current occupational status: disabled Review of Systems Const All systems reviewed & are unremarkable except as noted in HPI and below Reports no additional complaints ENT Reports Normal hearing present Card Denies chest pain, Denies chest pain at rest, Denies chest pain with activity and Denies pedal edema Resp Denies cough GI Denies abdominal pain Musc Denies abnormal gait, Denies muscle cramps and Denies radiating pain into limb Skin/Breast Denies skin ulcer and Denies wounds Neuro Reports Normal hearing present and Denies abnormal gait Psych Reports no additional complaints Physical Exam Const General: cooperative, healthy appearing and comfortable Orientation/consciousness: oriented to person, oriented to place and oriented to time HEENT Head: Yes normal to inspection Neck Neck: Yes normal visual inspection Carotids: no bruits Chest Chest palpation & inspection: normal inspection of the chest Resp Effort & Inspection: normal respiratory effort and able to speak in complete sentences Auscultation: clear to auscultation bilaterally, no crackles, no rales, no rhonchi and no wheezes Cardio Other: Bilateral DP signals Rate: regular rate Rhythm: regular rhythm Heart sounds: S1 normal heart sound present and S2 normal heart sound present Bruits: no carotid bruits GI Inspection: Yes normal to inspection Skin Wounds: no wounds Hair: normal Neuro General: oriented to person, oriented to place and oriented to time Cranial nerves: Yes CN's II-XII intact bilaterally and Yes Normal hearing present Cognition (Neuro): normal cognition Motor exam (neuro): 5/5 motor strength present throughout Extrem Other: venous exam: No significant superficial varicosities or spider telangiectasias, minimal edema General: No clubbing, No cyanosis and No edema Psych Appearance: grossly normal Mental Status: mental status grossly normal Speech and movement: Normal speech and movement present Assessment & Plan Assessment & Plan (1) PAD (peripheral artery disease): Comment: 06/27/2020 - left SFA atherectomy and stent, left popliteal plasty 07/10/2023 - left SFA plasty Code(s): I73.9 - Peripheral vascular disease, unspecified Category: Medical Plan: In short patient has done well from endovascular intervention. She will require 6 months aspirin and Plavix. Will plan for 3 month arterial surveillance. Thank you for allowing us to assist in her care. If there are any questions or concerns please do not hesitate to contact us. Orders: Orders US arterial duplex LE BI 3 Months I73.9 - Peripheral vascular disease, unspecified Coding Level of Care Code Est Pt Level 4 (83026) Diagnoses PAD (peripheral artery disease) I73.9
== END 2023-07-30 14:09 | disposition home or self-care (01) ==
PROVIDERS: PCP Family Medicine; Visit Provider Surgery Vascular Surgery
DX: I73.9 Peripheral vascular disease, unspecified (principal)
CPT/HCPCS: 99214

== ENCOUNTER → 2023-07-30 13:33 | Outpatient (BNVA) | payer OTHER, SELFPAY | PROVIDERS: PCP Family Medicine; Visit Provider Surgery Vascular Surgery | DX: I73.9 Peripheral vascular disease, unspecified (principal); Z95.820 Peripheral vascular angioplasty status with implants and grafts | CPT/HCPCS: 99212 ==

== ENCOUNTER 2023-08-05 13:26 | Outpatient (AMB) | payer OTHER, SELFPAY ==
[2023-08-05 13:28] VITALS: BP 148/70; PULSE 87; O2SAT 98; BMI 26.9
--- NOTE | 2023-08-05 13:28 | HO.NEPHOV ---
Vital Signs 08/05/23 13:28 Height 5 ft Weight 138 lb BMI 26.9 BP 148/70 H Blood Pressure Location Lt brachial Position Sitting Pulse 87 Pulse Source Pulse Oximeter Pulse Oximetry (%) 98 Oxygen Delivery Method Room Air Intake Visit Reasons: CKD/ 2 weeks fu/ Unable to reach Pan Helper Required: No Accompanied by: Self / Same As Patient Allergies ALLYSSA Inhibitors [ALLYSSA INHIBITORS] Allergy (Mild, Verified 08/05/23 13:30) COUGH cilostazol [CILOSTAZOL] Allergy (Mild, Verified 08/05/23 13:30) COUGH HPI Comments Details: Sarah is a 67-year-old woman who is well known to me. She has a longstanding history of diabetes mellitus complicated by chronic disease. She has advanced chronic kidney disease. Back in 2020 she was hospitalized and she spent some time in the ICU while she was critically ill. She sustained acute kidney injury at that time. She underwent extensive serological workup. Serum complement C3-C4 were low. Other serologies were unremarkable. She underwent a kidney biopsy which showed evidence of advanced diabetic nephropathy. There was no evidence of immune complex disease. She comes today for follow-up and accompanied by family member. Recent creatinine has been around 3.5 mg/dL. She denies any specific complaints like nausea vomiting or shortness of breath. She has lost some weight but her appetite has been good. No edema. She has history of significant hypokalemia and hypocalcemia for which she has been taking supplements. On January 21 she was sent to [facility] emergency room due to hypokalemia and she was treated in the ER and sent home. 03/21/2023. Here for follow-up. No specific complaints today. 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) Hypothyroidism associated with surgical procedure (~2008) Uncontrolled type 2 diabetes mellitus with hyperglycemia (~1986) Pneumonitis ARDS (adult respiratory distress syndrome) Neuropathy Asthma-COPD overlap syndrome Anemia HTN (hypertension) Hypercholesteremia Surgical History History of thyroidectomy History of back surgery History of 2 sections History of angioplasty History of amputation of left great toe Family History Mother Hypertension Diabetes Father AA (alcohol abuse) Social History Household Members: Family Housing: Apartment Do you presently have 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) Alcohol intake: never 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 Tobacco Use Status: Former Tobacco user Years Smoked: 45 Advance Directives Date on File: 09/13/20 service: No Current occupational status: disabled Physical Exam Vital Signs: Last Vital Signs Pulse 87 08/05/23 13:28 BP 148/70 H 08/05/23 13:28 Pulse Ox 98 08/05/23 13:28 Oxygen Delivery Method Room Air 08/05/23 13:28 BMI result Body Mass Index 26.9 Last Vital Signs Temp 97.5 F 07/25/23 15:53 Pulse 65 07/25/23 15:53 Resp 17 07/25/23 15:53 BP 140/67 H 07/25/23 15:53 Pulse Ox 97 07/25/23 15:14 O2 Del Method Nasal Cannula 07/25/23 15:14 O2 Flow Rate 2 07/25/23 15:14 Oxygen Flow Rate 3 07/23/23 15:34 BMI result Body Mass Index 32.0 Awake. Comfortable. Neck is supple. Mucosa moist. Lungs bilateral scattered rhonchi. Heart S1-S2 heard no gallop. Abdomen soft. Extremities no edema. No involuntary movements. No myoclonus. Office Meds epoetin [place] 20,000 unit/mL injection solution Performing Provider: Jean Claude Bowden MD [facility] Administered by: Jean Claude Bowden MD on 08/05/23 13:46 Dose Route Admin Location Dispensed Lot Number Expiration Date [facility] Technical Support Intern[employer] 20,000 unit subcut left arm 1 mL [id number] 02/15/25 57881-555-93 AMGEN Results Reviewed Nephrology Results: Hgb 9.4 g/dl (12.0-16.0) L 07/27/23 WBC 6.3 X10*3/uL (4.8-10.8) 07/27/23 Plt Count 141 X10*3/uL (160-400) L 07/27/23 Sodium 140 mmol/L (135-145) 07/27/23 Potassium 4.1 mmol/L (3.3-5.1) 07/27/23 Chloride 101 mmol/L (96-108) 07/27/23 Carbon Dioxide 25 mmol/L (22-29) 07/27/23 BUN 94 mg/dL (9-16) H 07/27/23 Creatinine 5.13 mg/dL (0.5-1.4) H* 07/27/23 Calcium 7.3 mg/dL (8.4-10.2) L 07/27/23 PTH Intact 161.7 pg/mL (8.7-77.1) H 07/24/23 Assessment & Plan Assessment & Plan (1) CKD (chronic kidney disease) stage 5, GFR less than 15 ml/min: Code(s): N18.5 - Chronic kidney disease, stage 5 Category: Medical (2) HTN (hypertension): Code(s): I10 - Essential (primary) hypertension Category: Medical Qualifiers: Hypertension type: renovascular hypertension Qualified Code(s): I15.0 - Renovascular hypertension (3) Hypocalcemia: Code(s): E83.51 - Hypocalcemia Category: Medical (4) 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 removal of thyroid gland: Onset Date: ~2008 Code(s): E89.2 - Postprocedural hypoparathyroidism Category: Medical (5) Hypothyroidism associated with surgical procedure: Onset Date: ~2008 Comment: (Hx Papillary thyroid cancer - s/p thyroidectomy) Code(s): E89.0 - Postprocedural hypothyroidism Category: Medical (6) Hypokalemia: Code(s): E87.6 - Hypokalemia Category: Medical (7) Anemia in chronic kidney disease (CKD): Code(s): N18.9 - Chronic kidney disease, unspecified; D63.1 - Anemia in chronic kidney disease Category: Medical Qualifiers: Chronic kidney disease stage: stage 5, not on chronic dialysis Qualified Code(s): N18.5 - Chronic kidney disease, stage 5; D63.1 - Anemia in chronic kidney disease Plan 67-year-old woman with advanced CKD due to diabetic nephropathy proven by biopsy. At present she has no overt signs or symptoms of uremia She is approaching end-stage renal disease. Goal is to slow the progression of renal disease. Continue to avoid nephrotoxins agents including NSAIDs. Maintain blood pressure less than 130/80 any A1c less than 7%. Will continue to watch renal function closely. 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 Administed Retacrit [id number] U sq and tolerated well Hypocalcemia in the setting of parathyroidectomy. we will continue with current calcium supplementation. She follows with Endocrinology History of hypokalemia she is on potassium supplementation. Potassium is in that normal range. Will refer to Dialysis education. She might be a candidate for CCPD Orders: Orders AMB Epoetin Injection Practice Supplied Today D63.1 - Anemia in chronic kidney disease, N18.5 - Chronic kidney disease, stage 5 Complete Blood Count Auto Diff Today D63.1 - Anemia in chronic kidney disease, N18.30 - Chronic kidney disease, stage 3 unspecified, N18.5 - Chronic kidney disease, stage 5 Basic Metabolic Panel Today D63.1 - Anemia in chronic kidney disease, N18.5 - Chronic kidney disease, stage 5 Medications: New epoetin [place] 20,000 units subcut ONCE 1 mL 0RF D63.1 - Anemia in chronic kidney disease, N18.5 - Chronic kidney disease, stage 5 Coding Level of Care Code Est Pt Level 4 (45078) Diagnoses CKD (chronic kidney disease) stage 5, GFR less than 15 ml/min N18.5 Renovascular hypertension I15.0 Hypertension type: renovascular hypertension Hypocalcemia E83.51 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 removal of thyroid gland E89.2 Hypothyroidism associated with surgical procedure E89.0 Hypokalemia E87.6 Anemia in stage 5 chronic kidney disease, not on chronic dialysis N18.5; D63.1 Chronic kidney disease stage: stage 5, not on chronic dialysis
== END 2023-08-05 13:45 | disposition home or self-care (01) ==
PROVIDERS: PCP Family Medicine; Visit Provider Internal Medicine Hypertension Specialist
DX: N18.5 Chronic kidney disease, stage 5 (principal); I15.0 Renovascular hypertension; E83.51 Hypocalcemia; E89.2 Postprocedural hypoparathyroidism; E89.0 Postprocedural hypothyroidism; E87.6 Hypokalemia; D63.1 Anemia in chronic kidney disease
CPT/HCPCS: 99214

== ENCOUNTER → 2023-08-05 13:26 | Outpatient (BNVA) | payer OTHER, SELFPAY | PROVIDERS: PCP Family Medicine; Visit Provider Internal Medicine Hypertension Specialist | DX: N18.5 Chronic kidney disease, stage 5 (principal); D63.1 Anemia in chronic kidney disease; I15.0 Renovascular hypertension; E83.51 Hypocalcemia; E89.2 Postprocedural hypoparathyroidism; E89.0 Postprocedural hypothyroidism; E87.6 Hypokalemia | CPT/HCPCS: 96372; 99212; J0885 ==

== ENCOUNTER 2023-08-06 13:20 | Outpatient (AMB) | payer OTHER, SELFPAY ==
--- NOTE | 2023-08-06 13:58 | A.OFFVIS_ITS ---
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 Required: No Allergies ALLYSSA Inhibitors [ALLYSSA INHIBITORS] Allergy (Mild, Verified 08/05/23 13:30) COUGH cilostazol [CILOSTAZOL] Allergy (Mild, Verified 08/05/23 13:30) COUGH Medication List - Last Reconciled 08/06/23 by TRACI Vogel aspirin 81 mg PO DAILY@1200 atorvastatin 80 mg PO BEDTIME blood sugar diagnostic (FreeStyle Lite Strips) As directed budesonide-formoterol 160-4.5 mcg/actuation 2 puffs inhalation BID calcitriol 0.25 mcg PO BID calcium carbonate (Calcium Antacid) 200 mg PO TID@1200,1800,2100 carvedilol 12.5 mg See Protocol PO BID cetirizine 5 mg PO DAILY PRN cholecalciferol (vitamin D3) 50 mcg PO DAILY cilostazol 100 mg PO BID@1200,2100 clopidogrel 75 mg PO QAM dapagliflozin propanediol (Farxiga) 5 mg PO DAILY ferrous sulfate 1 tab PO QAM furosemide (Lasix) 80 mg PO QAM gabapentin 300 mg PO BEDTIME hydralazine 10 mg See Protocol PO TID insulin aspart U-100 (Novolog FlexPen U-100 Insulin aspart) 8 units subcut TIDAC insulin degludec (Tresiba FlexTouch U-100 insulin) 13 units subcut DAILY@1400 PRN isosorbide mononitrate ER 30 mg See Protocol PO DAILY lancets (TRUEplus Lancets) As directed levothyroxine 150 mcg PO DAILY linagliptin (Tradjenta) 5 mg PO DAILY@1200 montelukast 10 mg PO BEDTIME pen needle, diabetic (Pentips) As directed once a day potassium chloride ER 20 mEq PO DAILY@1800 sertraline 25 mg PO DAILY umeclidinium 62.5 mcg/actuation (Incruse Ellipta) 1 inh inhalation QAM HPI HPI f/up- per-KM: Details: Sarah is a 67 yo female with PMH of HTN, HLD, DM, PAD, CAD with RCA stent 2007, prolonged QTc , hypocalcemia who was recently admitted to [facility] with shortness of breath and treated for acute hypoxic respiratory failure, volume overload, anemia, CKD stage 5. She was diuresed, transfused and sent home with Lasix 80 mg daily. An echo showed reduced EF. Carvedilol, hydralazine and isosorbide were added. She now presents for follow up. Today she reports that she has been doing well since her hospital discharge. She tells me her breathing is back to normal. She denies PND, orthopnea or edema. She previously had an intermittent cough which she says now has resolved. No chest discomfort at rest or with activity. No heart palpitations, lightheadedness, presyncope, syncope, falls. Taking meds as directed. She states she was told that she will need dialysis in the near future. She has seen Nephrology since her hospital discharge. She is speaking Khmer at this visit. [facility] Medical History CHF exacerbation Anemia CKD (chronic kidney disease) stage 5, GFR less than 15 ml/min Hypocalcemia Nicotine dependence, cigarettes, uncomplicated Atherosclerotic cardiovascular disease Thyroid cancer (~2008) 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) Hypothyroidism associated with surgical procedure (~2008) Uncontrolled type 2 diabetes mellitus with hyperglycemia (~1986) Pneumonitis ARDS (adult respiratory distress syndrome) Neuropathy Asthma-COPD overlap syndrome Anemia HTN (hypertension) Hypercholesteremia Surgical History History of thyroidectomy History of back surgery History of 2 sections History of angioplasty History of amputation of left great toe Family History Mother Hypertension Diabetes Father AA (alcohol abuse) Social History Household Members: Family Housing: Apartment Do you presently have 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 or other home services: Yes (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) Alcohol intake: never 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 Tobacco Use Status: Former Tobacco user Years Smoked: 45 Advance Directives Date on File: 09/13/20 service: No Current occupational status: disabled Review of Systems Const All systems reviewed & are unremarkable except as noted in HPI and below ENT Denies dizziness Card Details: Palpitations Denies chest pain, Denies chest pain at rest, Denies chest pain with activity, Denies rapid heart rate, Denies pedal edema, Denies edema, Denies leg edema, Denies lightheadedness, Denies palpitations, Denies dyspnea, Denies dyspnea on exertion and Denies orthopnea Resp Denies cough, Denies dyspnea and Denies dyspnea on exertion GI Denies hematochezia and Denies change in stool character Musc Details: Light physical activity Denies abnormal gait, Denies limited range of motion, Denies muscle cramps, Denies muscle weakness, Denies numbness, Denies radiating pain into limb, Denies stiffness and Denies tingling Neuro Denies abnormal gait, Denies dizziness, Denies numbness and Denies tingling Endo Denies palpitations Physical Exam Vital Signs: Last Vital Signs Pulse 85 08/06/23 13:59 BP 132/60 08/06/23 13:59 BMI result Body Mass Index 27.0 Const General: cooperative, healthy appearing, comfortable and no acute distress Orientation/consciousness: patient oriented x3 Neck Neck: Yes normal visual inspection and Yes no JVD Resp Effort & Inspection: normal respiratory effort Auscultation: clear to auscultation bilaterally, no crackles, no rales, no rhonchi and no wheezes Cardio Jugular venous distension: no JVD Rate: tachycardic Rhythm: regular rhythm Heart sounds: S1 normal heart sound present, S2 normal heart sound present, no murmurs and no rubs Neuro General: patient oriented x3 Extrem General: Yes normal to inspection Psych Appearance: grossly normal Mental Status: mental status grossly normal Speech and movement: Normal speech and movement present Office Procedures EKG Details: Today, read by me, sinus tachycardia with PACs, nonspecific ST and T-wave abnormality, QT 380 milliseconds, QTC 531 milliseconds, rate 117 [id number], Complete Assessment & Plan Assessment & Plan (1) Heart failure: Code(s): I50.9 - Heart failure, unspecified Category: Medical Plan: Recent [facility] admission for acute respiratory failure, anemia, acute on chronic kidney disease. She was treated for fluid overload. Echocardiogram showed EF 35-40%, regional wall motion abnormality present, severe pulmonary hypertension. Lab work showed creatinine up in the 4-5s, hemoglobin as low as 6.6. Her fluid overload was related to systolic heart failure, end-stage renal disease, anemia. She was transfused, diuresed and sent home with Lasix 80 mg daily. Last labs done on 07/27/2023 showed hemoglobin 9.4, creatinine 5.13. Today she reports she has been doing well since her hospital discharge. She does not appear fluid overloaded on examination. She tells me her breathing is comfortable, no PND, orthopnea or edema. She follows closely with Nephrology. She did have a recent visit and peritoneal dialysis was discussed with her. She tells me she will need to start dialysis in the near future. Discussed fluid restriction, low-salt diet, med compliance. For her reduced EF will check a pharmacological nuclear stress test to evaluate for ischemia. Cardiology follow-up in 4-6 weeks, sooner if needed (2) Acute respiratory failure with hypoxemia: Code(s): J96.01 - Acute respiratory failure with hypoxia Category: Medical Plan: As above (3) Atherosclerotic cardiovascular disease: Code(s): I25.10 - Atherosclerotic heart disease of [place] coronary artery without angina pectoris Category: Medical Plan: Hx CAD with RCA stent 2007. [facility] Seen by us in 2016 and not seen again in cardiology f/u until 06/2022. Nuclear stress test done in 2016 showed likely normal myocardial perfusion imaging. Echo 2020 showed EF 60-65% with mild diastolic dysfunction, mild MR, mild pulmonary HTN. Echo now showing EF 35-40% with regional wall motion abnormality. EKG done today shows sinus tac hycardia with PACs, prolonged QT interval which is not new. She denies any anginal sounding symptoms. At this time will have her continue on aspirin, atorvastatin, carvedilol. Signs and symptoms of angina reviewed. Will plan for a pharmacological nuclear stress test in the near future. Due to presence of sinus tachycardia today will plan for a Holter monitor to assess rate and rhythm. (4) QT prolongation: Code(s): R94.31 - Abnormal electrocardiogram [ECG] [EKG] Category: Medical Plan: History of prolonged QT interval. She also has known history of hypoparathyroidism and runs low calcium level. She is on calcium supplement and vitamin-D. She follows with Dr. Herndon for endocrinology. EKG done today is showing QTC 531 milliseconds. Labs done 07/27/2023 shows calcium 7.3, potassium 4.1. Last magnesium was normal. Will check with Dr. Guido prior to performing nuclear stress test on her. Message sent to him regarding low calcium and prolonged QTC interval. Medication list reviewed. She is still on sertraline which can prolong the QT interval. Recommend that she stop this medications and if needed be changed to alternatives that do not prolong the QTc interval. Would avoid all meds that prolong QT. Will forward this note to her PCP, Dr. Herndon. (5) HTN (hypertension): Code(s): I10 - Essential (primary) hypertension Category: Medical Qualifiers: Hypertension type: renovascular hypertension Qualified Code(s): I15.0 - Renovascular hypertension Plan: Well controlled at present. No med changes made. (6) Hypercholesteremia: Code(s): E78.00 - Pure hypercholesterolemia, unspecified Category: Medical Plan: [place] LDL goal less than 70. Labs done 10/31/2022 had shown LDL 60. Continue on atorvastatin. (7) Hospital discharge follow-up: Code(s): Z09 - Encounter for follow-up examination after completed treatment for conditions other than malignant neoplasm Category: Medical Plan: As above (8) PAD (peripheral artery disease): Comment: 06/27/2020 - left SFA atherectomy and stent, left popliteal plasty 07/10/2023 - left SFA plasty Code(s): I73.9 - Peripheral vascular disease, unspecified Category: Medical Plan: History of peripheral arterial disease. Follows with Dr. Butler. Had recent left SFA angioplasty. She is on aspirin and Plavix as well as statin. While hospitalized recently Dr. Guido gave the recommendation to stop cilostazol as she did have heart failure. It seems that this medication was continued and she remains on it today. I did send a message to Dr. Butler regarding cilostazol and her need to continue its use. Plan Time spent on chart review, documentation, intravenous sestamibi Orders: Orders ECG 3 day holter monitor Today R00.0 - Tachycardia, unspecified, R94.31 - Abnormal electrocardiogram [ECG] [EKG] Coding Level of Care Code Est Pt Level 4 (90465) Diagnoses Heart failure I50.9 Acute respiratory failure with hypoxemia J96.01 Atherosclerotic cardiovascular disease I25.10 QT prolongation R94.31 Renovascular hypertension I15.0 Hypertension type: renovascular hypertension Hypercholesteremia E78.00 Hospital discharge follow-up Z09 PAD (peripheral artery disease) I73.9 CPT Codes EKG - CPT: [id number], Complete ([id number]) Time Spent (min) 30
[2023-08-06 13:59] VITALS: BP 132/60; PULSE 85; BMI 27.0
== END 2023-08-06 14:47 | disposition home or self-care (01) ==
PROVIDERS: PCP Family Medicine; Visit Provider Nurse Practitioner Family
DX: I50.9 Heart failure, unspecified (principal); J96.01 Acute respiratory failure with hypoxia; I25.10 Atherosclerotic heart disease of native coronary artery without angina pectoris; R94.31 Abnormal electrocardiogram [ECG] [EKG]; I15.0 Renovascular hypertension; E78.00 Pure hypercholesterolemia, unspecified; Z09 Encounter for follow-up examination after completed treatment for conditions other than malignant neoplasm; I73.9 Peripheral vascular disease, unspecified
CPT/HCPCS: 93010; 99214

== ENCOUNTER → 2023-08-06 13:20 | Outpatient (BNVA) | payer OTHER, SELFPAY | PROVIDERS: PCP Family Medicine; Visit Provider Nurse Practitioner Family | DX: Z09 Encounter for follow-up examination after completed treatment for conditions other than malignant neoplasm (principal); I15.0 Renovascular hypertension; I50.9 Heart failure, unspecified; I25.10 Atherosclerotic heart disease of native coronary artery without angina pectoris; R94.31 Abnormal electrocardiogram [ECG] [EKG]; I73.9 Peripheral vascular disease, unspecified; J96.01 Acute respiratory failure with hypoxia; E78.00 Pure hypercholesterolemia, unspecified; Z95.5 Presence of coronary angioplasty implant and graft | CPT/HCPCS: 93005; 99212 ==

== ENCOUNTER 2023-09-05 13:42 | Outpatient (AMB) | payer OTHER, SELFPAY ==
[2023-09-05 13:52] VITALS: BP 118/54; PULSE 62; O2SAT 99; BMI 26.2
--- NOTE | 2023-09-05 13:52 | HO.NEPHOV ---
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: No Accompanied by: Self / Same As Patient Allergies ALLYSSA Inhibitors [ALLYSSA INHIBITORS] Allergy (Mild, Verified 09/05/23 13:55) COUGH cilostazol [CILOSTAZOL] Allergy (Mild, Verified 09/05/23 13:55) COUGH Medication List - Last Reconciled 09/05/23 by Jean Claude Bowden MD aspirin 81 mg PO DAILY@1200 atorvastatin 80 mg PO BEDTIME blood sugar diagnostic (FreeStyle Lite Strips) As directed budesonide-formoterol 160-4.5 mcg/actuation 2 puffs inhalation BID calcitriol 0.25 mcg PO BID calcium carbonate (Calcium Antacid) 200 mg PO TID@1200,1800,2100 carvedilol 12.5 mg See Protocol PO BID cetirizine 5 mg PO DAILY PRN cholecalciferol (vitamin D3) 50 mcg PO DAILY cilostazol 100 mg PO BID@1200,2100 clopidogrel 75 mg PO QAM dapagliflozin propanediol (Farxiga) 5 mg PO DAILY ferrous sulfate 1 tab PO QAM furosemide (Lasix) 80 mg PO QAM gabapentin 300 mg PO BEDTIME hydralazine 10 mg See Protocol PO TID insulin aspart U-100 (Novolog FlexPen U-100 Insulin aspart) 8 units subcut TIDAC insulin degludec (Tresiba FlexTouch U-100 insulin) 13 units subcut DAILY@1400 PRN isosorbide mononitrate ER 30 mg See Protocol PO DAILY lancets (TRUEplus Lancets) As directed levothyroxine 150 mcg PO DAILY linagliptin (Tradjenta) 5 mg PO DAILY@1200 montelukast 10 mg PO BEDTIME ondansetron HCl 4 mg PO DAILY PRN pen needle, diabetic (Pentips) As directed once a day potassium chloride ER 20 mEq PO DAILY@1800 sertraline 25 mg PO DAILY umeclidinium 62.5 mcg/actuation (Incruse Ellipta) 1 inh inhalation QAM HPI Comments Details: Sarah is a 67-year-old woman who is well known to me. She has a longstanding history of diabetes mellitus complicated by chronic disease. She has advanced chronic kidney disease. Back in 2020 she was hospitalized and she spent some time in the ICU while she was critically ill. She sustained acute kidney injury at that time. She underwent extensive serological workup. Serum complement C3-C4 were low. Other serologies were unremarkable. She underwent a kidney biopsy which showed evidence of advanced diabetic nephropathy. There was no evidence of immune complex disease. She comes today for follow-up and accompanied by family member. Recent creatinine has been around 3.5 mg/dL. She denies any specific complaints like nausea vomiting or shortness of breath. She has lost some weight but her appetite has been good. No edema. She has history of significant hypokalemia and hypocalcemia for which she has been taking supplements. On January 21 she was sent to [facility] emergency room due to hypokalemia and she was treated in the ER and sent home. 03/21/2023. Here for follow-up. No specific complaints today. 04/25/23;Did not go for blood work.NO complaints today 07/22/23 Underwent aortogram 30 cc dye was used s/p Left SFA dialtation Pre procedure creatinine was 4.1 and HgB 7.6 c/o SOB on exertion and leg edema 08/05/23 During last visit she was found to have severe anemia Admitted and transfused Feels better today NO dyspnea 09/05/2023. Complains of nausea for the last few days. No shortness of breath. Accompanied by daughter. [facility] Medical History CHF exacerbation Anemia CKD (chronic kidney disease) stage 5, GFR less than 15 ml/min Hypocalcemia Nicotine dependence, cigarettes, uncomplicated Atherosclerotic cardiovascular disease Thyroid cancer (~2008) 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) Hypothyroidism associated with surgical procedure (~2008) Uncontrolled type 2 diabetes mellitus with hyperglycemia (~1986) Pneumonitis ARDS (adult respiratory distress syndrome) Neuropathy Asthma-COPD overlap syndrome Anemia HTN (hypertension) Hypercholesteremia Surgical History History of thyroidectomy History of back surgery History of 2 sections History of angioplasty History of amputation of left great toe Family History Mother Hypertension Diabetes Father AA (alcohol abuse) Social History Household Members: Family Housing: Apartment Do you presently have 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 or other home services: 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 (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) Alcohol intake: never 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 Tobacco Use Status: Former Tobacco user Years Smoked: 45 Advance Directives Date on File: 09/13/20 service: No Current occupational status: disabled Physical Exam Vital Signs: Last Vital Signs Pulse 62 09/05/23 13:52 BP 118/54 L 09/05/23 13:52 Pulse Ox 99 09/05/23 13:52 Oxygen Delivery Method Room Air 09/05/23 13:52 BMI result Body Mass Index 26.2 Const General: comfortable; No acute distress Orientation/consciousness: patient oriented x3 Eyes General: appearance normal, both eyes and all related structures Visual Garzon: normal visual garzon by confrontation Neck Neck: Yes supple and Yes no JVD Resp Effort & Inspection: normal respiratory effort and respiratory effort not decreased Auscultation: rhonchi Cardio Palpation: no palpable S3 and no palpable S4 Heart sounds: no rubs GI Inspection: Yes normal to inspection Palpation (GI): Soft to palpation Percussion: Yes normal to percussion Auscultation: normal bowel sounds General: Yes no CVA tenderness Back/Spine/Pelvis Back: no CVA tenderness Skin General skin exam: no petechiae and no purpura Neuro General: patient oriented x3 and no focal motor deficits Extrem General: No clubbing and No edema Results Reviewed Nephrology Results: Hgb 9.4 g/dl (12.0-16.0) L 07/27/23 WBC 6.3 X10*3/uL (4.8-10.8) 07/27/23 Plt Count 141 X10*3/uL (160-400) L 07/27/23 Sodium 140 mmol/L (135-145) 07/27/23 Potassium 4.1 mmol/L (3.3-5.1) 07/27/23 Chloride 101 mmol/L (96-108) 07/27/23 Carbon Dioxide 25 mmol/L (22-29) 07/27/23 BUN 94 mg/dL (9-16) H 07/27/23 Creatinine 5.13 mg/dL (0.5-1.4) H* 07/27/23 Calcium 7.3 mg/dL (8.4-10.2) L 07/27/23 PTH Intact 161.7 pg/mL (8.7-77.1) H 07/24/23 Assessment & Plan Assessment & Plan (1) CKD (chronic kidney disease): Code(s): N18.9 - Chronic kidney disease, unspecified Category: Medical Qualifiers: Chronic kidney disease stage: stage 4 (severe) Qualified Code(s): N18.4 - Chronic kidney disease, stage 4 (severe) (2) Anemia in chronic kidney disease (CKD): Code(s): N18.9 - Chronic kidney disease, unspecified; D63.1 - Anemia in chronic kidney disease Category: Medical Qualifiers: Chronic kidney disease stage: stage 5, not on chronic dialysis Qualified Code(s): N18.5 - Chronic kidney disease, stage 5; D63.1 - Anemia in chronic kidney disease (3) CKD (chronic kidney disease) stage 5, GFR less than 15 ml/min: Code(s): N18.5 - Chronic kidney disease, stage 5 Category: Medical (4) HTN (hypertension): Code(s): I10 - Essential (primary) hypertension Category: Medical Qualifiers: Hypertension type: renovascular hypertension Qualified Code(s): I15.0 - Renovascular hypertension (5) Hypocalcemia: Code(s): E83.51 - Hypocalcemia Category: Medical (6) 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 removal of thyroid gland: Onset Date: ~2008 Code(s): E89.2 - Postprocedural hypoparathyroidism Category: Medical (7) Hypothyroidism associated with surgical procedure: Onset Date: ~2008 Comment: (Hx Papillary thyroid cancer - s/p thyroidectomy) Code(s): E89.0 - Postprocedural hypothyroidism Category: Medical (8) Hypokalemia: Code(s): E87.6 - Hypokalemia Category: Medical Plan 67-year-old woman with advanced CKD due to diabetic nephropathy proven by biopsy. She is approaching end-stage renal disease. Nausea may be due to uremia. Gave her a prescription for Zofran. Check labs today. Based on this we will arrange for dialysis Goal is to slow the progression of renal disease. Continue to avoid nephrotoxins agents including NSAIDs. Maintain blood pressure less than 130/80 any A1c less than 7%. Will continue to watch renal function closely. 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 Recheck hemoglobin today and decide on next dose of Epogen Hypocalcemia in the setting of parathyroidectomy. we will continue with current calcium supplementation. She follows with Endocrinology History of hypokalemia she is on potassium supplementation. Potassium is in that normal range. Referred for CCPD. She we will touch base with the dialysis nurse Orders: Orders Complete Blood Count no Diff Today D63.1 - Anemia in chronic kidney disease, N18.4 - Chronic kidney disease, stage 4 (severe), N18.5 - Chronic kidney disease, stage 5 Comprehensive Met. Panel Today D63.1 - Anemia in chronic kidney disease, N18.4 - Chronic kidney disease, stage 4 (severe), N18.5 - Chronic kidney disease, stage 5 Phosphorus Today D63.1 - Anemia in chronic kidney disease, N18.4 - Chronic kidney disease, stage 4 (severe), N18.5 - Chronic kidney disease, stage 5 Parathyroid Hormone Intact Today D63.1 - Anemia in chronic kidney disease, N18.4 - Chronic kidney disease, stage 4 (severe), N18.5 - Chronic kidney disease, stage 5 IRON PROFILE Today D63.1 - Anemia in chronic kidney disease, N18.4 - Chronic kidney disease, stage 4 (severe), N18.5 - Chronic kidney disease, stage 5 Ferritin Today D63.1 - Anemia in chronic kidney disease, N18.4 - Chronic kidney disease, stage 4 (severe), N18.5 - Chronic kidney disease, stage 5 Medications: New ondansetron HCl 4 mg PO DAILY PRN 10 tabs 0RF nausea and vomiting Coding Level of Care Code Est Pt Level 4 (93317) Diagnoses CKD (chronic kidney disease) N18.4 Chronic kidney disease stage: stage 4 (severe) Anemia in stage 5 chronic kidney disease, not on chronic dialysis N18.5; D63.1 Chronic kidney disease stage: stage 5, not on chronic dialysis CKD (chronic kidney disease) stage 5, GFR less than 15 ml/min N18.5 Renovascular hypertension I15.0 Hypertension type: renovascular hypertension Hypocalcemia E83.51 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 removal of thyroid gland E89.2 Hypothyroidism associated with surgical procedure E89.0 Hypokalemia E87.6
== END 2023-09-05 14:15 | disposition home or self-care (01) ==
LOC: HO.HKA 13:42
PROVIDERS: PCP Family Medicine; Visit Provider Internal Medicine Hypertension Specialist
DX: N18.4 Chronic kidney disease, stage 4 (severe) (principal); N18.5 Chronic kidney disease, stage 5; D63.1 Anemia in chronic kidney disease; I15.0 Renovascular hypertension; E83.51 Hypocalcemia; E89.2 Postprocedural hypoparathyroidism; E89.0 Postprocedural hypothyroidism; E87.6 Hypokalemia
CPT/HCPCS: 99214

== ENCOUNTER 2023-09-05 13:42 | Outpatient (REF) | payer OTHER, SELFPAY ==
--- NOTE | ~2023-09-05 | XR_ITS ---
EXAMINATION: XR CHEST CLINICAL INFORMATION: Crackles, swelling, possible CHF COMPARISON: 07/23/2023 along with even more remote film dated 10/06/2008 TECHNIQUE: 2 views of the chest were obtained. FINDINGS: The heart is mildly enlarged. There is upper zone redistribution. There are increased interstitial markings. No pleural effusions are seen. No focal consolidations. No lung masses. Compared with the 07/23/2023 study there was interstitial edema present which has significantly improved. XR/XR chest 2V IMPRESSION: Cardiomegaly with pulmonary vascular congestion consistent with CHF. No pleural effusions.
[2023-09-05 15:06] LABS: MANUAL DIFF FLAG NO
[2023-09-05 15:44] LABS: Basophils Absolute Auto 0.1 X10*3/uL (0.0-0.2); Basophils Percent Auto 0.9 % (0-2); Eosinophils Absolute Auto 0.7 X10*3/uL (0.0-0.4); Hematocrit 30.2 % (37.0-47.0); Hemoglobin 9.7 g/dl (12.0-16.0); Imm Gran Abs Auto 0.03 X10*3/uL (0.00-0.03); Imm Gran Pct Auto 0.4 % (0.0-0.4); Lymphocytes Absolute Auto 1.1 X10*3/uL (1.2-4.9); Lymphocytes Percent Auto 14.4 % (20-40); Mean Corpuscular HGB Conc 32.1 g/dl (31.0-35.0); Mean Corpuscular Hemoglobin 27.8 pg (27.0-33.0); Mean Corpuscular Volume 86.5 fL (80.0-98.0); Mean Platelet Volume 10.9 fL (9.4-12.3); Monocytes Absolute Auto 0.8 X10*3/uL (0.1-1.2); Monocytes Percent Auto 10.6 % (2-11); Neutrophils Percent Auto 64.7 % (45-73); Platelet Count 148 X10*3/uL (160-400); Red Blood Count 3.49 X10*6/uL (4.20-5.50); Red Cell Distribution Width 16.1 % (11.0-16.0); White Blood Count 7.7 X10*3/uL (4.8-10.8)
[2023-09-05 15:50] LABS: Estimated Average Glucose 174 mg/dL; Hemoglobin A1c % 7.7 % (<6.0)
[2023-09-05 16:16] LABS: Cholesterol 99 mg/dL (<200); HDL Cholesterol 33 mg/dL (>40); LDL Cholesterol Calculated 47 mg/dL (<100); Triglycerides 95 mg/dL (<150)
[2023-09-05 16:27] LABS: Erythrocyte Sedimentation Rate 92 MM/HR (0-20)
[2023-09-05 16:32] LABS: Alanine Aminotransferase 11 U/L (0-31); Albumin Level 3.2 g/dL (3.5-5.0); Alkaline Phosphatase 55 U/L (39-117); Anion Gap 21 (12-20); Aspartate Amino Transferase 25 U/L (5-31); Bilirubin Total 0.4 mg/dL (0.0-1.0); Blood Urea Nitrogen 118 mg/dL (9-16); C Reactive Protein 2.47 mg/dL (< or = 0.50); Calcium 5.1 mg/dL (8.4-10.2); Carbon Dioxide 21 mmol/L (22-29); Chloride 102 mmol/L (96-108); Estimated Glomerular Filt Rate 6; Glucose Random 119 mg/dL (60-115); Iron 61 mcg/dL (30-160); Percent Iron Saturation 33 % (15-50); Phosphorus 9.1 mg/dL (2.7-4.5); Potassium 3.7 mmol/L (3.3-5.1); Sodium 140 mmol/L (135-145); Total Iron Binding Capacity 184 mcg/dL (228-428); Total Protein 8.2 g/dL (6.5-8.0); Unsaturated Iron Binding 123 ug/dL
[2023-09-05 16:33] LABS: Ferritin 64 ng/mL (10-250)
[2023-09-05 18:16] LABS: Reflex LDLD? No
[2023-09-08 16:23] LABS: Fructosamine 434 umol/L (205-285)
== END 2023-09-05 13:43 | disposition home or self-care (01) ==
LOC: HO.LAB 13:42
PROVIDERS: Absent Provider Internal Medicine Endocrinology, Diabetes & Metabolism; PCP Family Medicine; Visit Provider Internal Medicine Hypertension Specialist
DX: Z13.89 Encounter for screening for other disorder (principal)
CPT/HCPCS: 36415; 71046; 80053; 80061; 82728; 82985; 83036; 83540; 83970; 84100; 84443; 85025; 85027; 85652; 86140; 99212

== ENCOUNTER 2023-09-07 20:42 | Inpatient (IN) | payer OTHER, SELFPAY ==
--- NOTE | ~2023-09-07 | IR_ITS ---
History: End-stage renal disease. Procedure performed: 1. Ultrasound and fluoroscopic guided placement of a peritoneal dialysis catheter Physician: Sulema Vogel MD FS Anesthesia: IV moderate sedation with intravenous fentanyl and Versed was administered under my direct supervision with continuous physiologic monitoring for a total of 45 minutes. 18 mL of 1% lidocaine and 8 mL of bupivacaine was used for local anesthesia at the site of placement. Specimen: None Drain: Barton peritoneal dialysis catheter. Estimated blood loss: Minimal Complications: None Procedure in detail: Informed and written consent was obtained. The patient was positioned supine on the angiography table. Preliminary fluoroscopy showed good contrast opacification of the large intestine. Using the Barton peritoneal dialysis catheter, we positioned it over the belly and marked our intended access site. The catheter was soaked in antibiotic solution. 1% lidocaine was injected subcutaneously and extended to the peritoneum under ultrasound at the planned peritoneal access site. A small incision was made with a #11 blade. Through the incision and under ultrasound guidance with permanent recordings and direct visualization of needle penetration into the peritoneum, a micropuncture needle was used to obtain access to the peritoneum. The transitional dilator was placed and an injection of contrast confirmed that we were within the peritoneum. Using the Seldinger technique, we then placed a 6 Belgian sheath. We carefully retracted the sheath while injecting contrast to ensure that we had not transgressed bowel. We reinserted the sheath and subsequently withdrew it slowly while injecting local anesthetic to fully anesthetize the tract. The sheath was then reinserted a third time. At this point, we infused 500 mL of saline and approximately 50 mL of contrast. We identified the pouch of Jorge Luis. We carefully advanced a stiff Glidewire to this location as it represented the most dependent location in the pelvis. The sheath was removed and [id number] we dilated the tract until a 22 Belgian peel-away sheath could be placed. We then inserted the Barton peritoneal dialysis catheter, the loop of which coils in the pouch of Jorge Luis. The peel-away sheath was removed. Next, we anesthetized the subcutaneous tissues along an inferolateral track to the planned catheter exit site where we made another small incision with a #11 blade. The catheter was then tunneled to the exit site. We drained the fluid from the abdomen and capped the tube. Interrupted 3-0 Vicryl suture was used to close the peritoneal insertion site with overlying Dermabond. Benzoin was applied to the skin and Steri-Strips were used to secure the catheter at its exit site and to the abdomen. A large sterile dressing with gauze and paper tape was then used to cover the peritoneal dialysis catheter. Summary: Successful ultrasound and fluoroscopic guided placement of a peritoneal dialysis catheter. The patient should follow-up within 1 week to the peritoneal dialysis nurse. The first dressing change and testing of the catheter will be performed by the peritoneal dialysis nurse. Assuming there is no leakage and the site appears well-healed, the peritoneal dialysis catheter should be ready for use in 3-4 weeks.
--- NOTE | ~2023-09-07 | XR_ITS ---
EXAMINATION: XR CHEST CLINICAL INFORMATION: Cough COMPARISON: None available. TECHNIQUE: Frontal view of the chest was obtained. FINDINGS: No significant abnormality is noted involving the heart, lungs, mediastinum, bony thorax or soft tissues. Bilateral acromioclavicular*use. XR/XR chest 1V IMPRESSION: No acute cardiopulmonary process.
--- NOTE | ~2023-09-07 | IR_ITS ---
CLINICAL HISTORY: End-stage renal disease. The patient presents to interventional radiology for placement of a tunneled central venous catheter for hemodialysis. PROCEDURES: 1. Real-time ultrasound-guided access into the right internal jugular vein after documentation of selected vessel patency, and permanent imaging storing in the patient record. 2. Placement of a 14.5 fr 23 cm tunneled, dual-lumen hemodialysis catheter. Clinician: Noe Mason PA-C MEDICATIONS: -Fentanyl 50 mcg, Lidocaine 1% 10 mL SQ. -Antibiotics: Ancef -For additional details, please see nursing flowsheet. COMPLICATIONS: None. ESTIMATED BLOOD LOSS: <5 ml SPECIMENS: None FLUOROSCOPY TIME: 0.5 min PROCEDURE NOTE: The procedure, risks, benefits, and alternatives were carefully explained to patient, and written informed consent was obtained. The patient was placed supine on the fluoroscopy table. A timeout was performed. The right neck and chest was prepped and draped in usual sterile fashion. Local anesthesia was administered to the access site with lidocaine. Under ultrasound guidance, the right internal jugular vein was accessed with a 5 Fr micropuncture set. A 0.035 in wire was advanced to the IVC to maintain access during the tunneling process. Next, subcutaneous lidocaine was administered to the chest. Using blunt dissection, a subcutaneous tunnel was created that connects from the upper chest to the venotomy site. The dialysis catheter was pulled through the tunnel. The tract in the vein was dilated and a peel-away sheath was advanced over the wire. The catheter was advanced through the sheath, which was subsequently peeled away. The catheter was tested, flushed, and sutured to the skin with its tip in the high right atrium. A permanent fluoroscopic image of the chest was saved to PACS. The catheter ports were packed with heparin per routine protocol. The patient was stable after the procedure and was transferred to the medical floor. FINDINGS: 1. Patent right internal jugular vein. 2. Placement of a tunneled, dual-lumen hemodialysis catheter as above. 3. Catheter flushes and aspirates very well with a 10 mL syringe. No pneumothorax. IR/IR cvc insert central tunnel IMPRESSION: Placement of a tunneled hemodialysis catheter in the right internal jugular vein. PLAN: -The catheter may be used immediately. This procedure was performed by Noe Mason PA-C, and directly supervised by Dr. Penn.
--- NOTE | ~2023-09-07 | US_ITS ---
EXAMINATION: NONINVASIVE ASSESSMENT OF THE ARTERIES OF BOTH LOWER EXTREMITIES INCLUDING BILATERAL LOWER EXTREMITY DUPLEX. CLINICAL INFORMATION: non healing ulcer COMPARISON: Noninvasive arterial exam on 05/07/2023 TECHNIQUE: duplex Doppler techniques with wave form analysis and measurement of velocities in the common femoral, profunda femoral, superficial femoral, popliteal, tibial and peroneal arteries. The study was performed only at rest. FINDINGS: There is diffuse atherosclerotic disease. RIGHT LEG Common femoral artery: 123 cm/s, monophasic Profunda femoris artery: 109 cm/s, monophasic Superficial femoral artery (proximal): 261 cm/s, monophasic Superficial femoral artery (mid): 128 cm/s, monophasic Superficial femoral artery (distal): 179 cm/s, monophasic Proximal Popliteal artery: 191 cm/s, monophasic Mid posterior tibial artery: 64 cm/s, monophasic US/US arterial duplex LE RT IMPRESSION: 1. Diffuse atherosclerotic disease with monophasic waveforms throughout the right lower extremity suggesting inflow disease. 2. Elevated velocity in the proximal superficial femoral artery suggesting hemodynamically significant stenosis.
--- NOTE | ~2023-09-07 | XR_ITS ---
EXAMINATION: XR TOES, RIGHT CLINICAL INFORMATION: Great toe wound COMPARISON: Right foot 08/27/2014 TECHNIQUE: Portable AP view of the right foot and oblique and lateral views of the right great toe FINDINGS: Wound is seen medial to the distal phalanx of the great toe. Punctate density is seen in the soft tissues in the region of the wound. No evidence of bone destruction or periosteal reaction. No fracture or dislocation. There is mild narrowing of the IP joints of the second through fifth toes. There is mild narrowing of the PIP joint of the great toe. Arterial vascular calcification is noted. XR/XR toe RT min 2V IMPRESSION: 1. No radiographic evidence of osteomyelitis. 2. Punctate density in the soft tissues medial to the distal phalanx of the great toe may represent a tiny foreign body.
[2023-09-07 20:51] VITALS: BP 138/64; PULSE 68; O2SAT 98; BMI 27.2
[2023-09-07 21:01] VITALS: BP 131/62; PULSE 67; RESP 16; TEMP 36.7; O2SAT 94
[2023-09-07 21:02] LABS: Glucose, Whole Blood 216 mg/dL (60-115)
--- NOTE | 2023-09-07 21:07 | ECG_ITS ---
Test Reason : HYPERTENSION Blood Pressure : / mmHG Vent. Rate : 068 BPM Atrial Rate : 068 BPM P-R Int : 176 ms QRS Dur : 090 ms QT Int : 526 ms P-R-T Axes : 069 032 153 degrees QTc Int : 559 ms Normal sinus rhythm T wave abnormality, consider lateral ischemia Prolonged QT Abnormal ECG When compared with ECG of 23-JUL-2023 15:19, Vent. rate has decreased BY 33 BPM T wave inversion now evident in Lateral leads QT has lengthened Referred By: Olivia Mccray Electronically Signed By:ANTOINETTE ARNETT MD
[2023-09-07 21:40] LABS: MANUAL DIFF FLAG NO
--- NOTE | 2023-09-07 21:46 | ED_ITS ---
HPI - General Adult General Chief complaint: Weakness Stated complaint: WEAK,NAUSEA,KIDNEY FAILURE Time Seen by Provider: 09/07/23 21:06 Source: patient and EMS Mode of arrival: EMS History of Present Illness ED Provider: Dr Mccray HPI narrative: 68-year-old female with history diabetes/hypertension, kidney disease and presents via EMS with 1 week of nausea, fatigue/weakness as well as abdominal discomfort but denies any urinary symptoms. Patient reports that she is continued to have bowel movements and pass flatus. Related Data Home Medications ?Medication ?Instructions ?Recorded ?Confirmed cilostazol 100 mg tablet 100 mg PO BID@1200,2100 05/17/20 09/05/23 ferrous sulfate 325 mg (65 mg 1 tab PO QAM 05/17/20 09/05/23 iron) tablet blood sugar diagnostic (FreeStyle #10 ea 05/30/21 09/05/23 Lite Strips) insulin aspart U-100 100 unit/mL 8 unit subcut TIDAC 05/30/21 09/05/23 (3 mL) subcutaneous pen (Novolog FlexPen U-100 Insulin aspart) lancets 33 gauge (TRUEplus Lancets) #100 ea 05/30/21 09/05/23 cholecalciferol (vitamin D3) 50 50 mcg PO DAILY 04/24/22 09/05/23 mcg (2,000 unit) tablet dapagliflozin propanediol 5 mg 5 mg PO DAILY 04/24/22 09/05/23 tablet (Farxiga) linagliptin 5 mg tablet (Tradjenta) 5 mg PO DAILY@1200 04/24/22 09/05/23 potassium chloride 20 mEq 20 meq PO DAILY@1800 04/24/22 09/05/23 tablet,extended release(part/cryst) pen needle, diabetic 32 gauge x #50 ea 05/03/22 09/05/23/32 (Pentips) aspirin 81 mg tablet,delayed 81 mg PO DAILY@1200 06/20/22 09/05/23 release atorvastatin 80 mg tablet 80 mg PO BEDTIME 06/20/22 09/05/23 clopidogrel 75 mg tablet 75 mg PO QA 06/20/22 09/05/23 montelukast 10 mg tablet 10 mg PO BEDTIME 06/20/22 09/05/23 sertraline 25 mg tablet 25 mg PO DAILY 06/20/22 09/05/23 levothyroxine 150 mcg tablet 150 mcg PO DAILY 03/21/23 09/05/23 gabapentin 300 mg capsule 300 mg PO BEDTIME 04/25/23 09/05/23 budesonide-formoterol HFA 160 2 puff inhalation BID 07/23/23 09/05/23 mcg-4.5 mcg/actuation aerosol inhaler calcium carbonate (Calcium Antacid) 200 mg PO TID@1200,1800,2100 07/23/23 09/05/23 cetirizine 5 mg tablet 5 mg PO DAILY PRN allergies 07/23/23 09/05/23 insulin degludec 100 unit/mL (3 13 unit subcut DAILY@1400 PRN 07/23/23 09/05/23 mL) subcutaneous pen (Tresiba Hyperglycemia FlexTouch U-100 insulin) umeclidinium 62.5 mcg/actuation 1 inh inhalation QAM 07/23/23 09/05/23 blister powder for inhalation (Incruse Ellipta) Previous Rx's ?Medication ?Instructions ?Recorded calcitriol 0.25 mcg capsule 0.25 mcg PO BID #60 caps 01/20/23 carvedilol 12.5 mg tablet 12.5 mg PO BID #180 tabs 07/27/23 furosemide 80 mg tablet (Lasix) 80 mg PO QAM #90 tabs 07/27/23 hydralazine 10 mg tablet 10 mg PO TID #270 tabs 07/27/23 isosorbide mononitrate 30 mg 30 mg PO DAILY #180 tabs 07/27/23 tablet,extended release 24 hr ondansetron HCl 4 mg tablet 4 mg PO DAILY PRN nausea and 09/05/23 vomiting #10 tabs Allergies Allergy/AdvReac Type Severity Reaction Status Date / Time ALLYSSA Inhibitors Allergy Mild COUGH Verified 09/05/23 13:55 [ALLYSSA INHIBITORS] cilostazol [CILOSTAZOL] Allergy Mild COUGH Verified 09/07/23 20:53 Review of Systems 2 Review of Systems: Pertinent positives and negatives as stated in [facility] Past Medical History Source: nursing notes reviewed Medical History CHF exacerbation Anemia CKD (chronic kidney disease) stage 5, GFR less than 15 ml/min Hypocalcemia Nicotine dependence, cigarettes, uncomplicated Atherosclerotic cardiovascular disease Thyroid cancer (~2008) 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) Hypothyroidism associated with surgical procedure (~2008) Uncontrolled type 2 diabetes mellitus with hyperglycemia (~1986) Pneumonitis ARDS (adult respiratory distress syndrome) Neuropathy Asthma-COPD overlap syndrome Anemia HTN (hypertension) Hypercholesteremia Surgical History History of thyroidectomy History of back surgery History of 2 sections History of angioplasty History of amputation of left great toe Family History Family History Mother Hypertension Diabetes Father AA (alcohol abuse) Social History Social History Household Members: Family Housing: Apartment Do you presently have 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) Alcohol intake: never 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 Tobacco Use Status: Former Tobacco user Years Smoked: 45 Smoked in Last 30 Days: No Use of substances other than those prescribed or required for medical reasons: No Advance Directives: Yes Advance Directives on File: Yes Advance Directives Date on File: 09/13/20 Do you have a plan to hurt others: No Plan service: No Current occupational status: disabled Physical Exam ED Vital Signs: Vital Signs - 24 hr 09/07/23 21:01 Temperature 98.1 F Pulse Rate 67 Respiratory Rate 16 Blood Pressure 131/62 Pulse Oximetry 94 Oxygen Delivery Method Room Air BMI result Body Mass Index 27.2 VITAL SIGNS: Reviewed. GENERAL: Well developed, well nourished, in no acute distress. HEAD: Normocephalic/atraumatic EYES: PERRLA, EOMI EARS: Ext canals without abnormality NOSE: Nares patent bilateral OROPHARYNX: no oral lesions noted, posterior pharynx clear NECK: Supple, no adenopathy LUNGS: Normal breath sounds. No adventitious sounds or accessory muscle use. SpO2<94> CARDIOVASCULAR: Regular rate and rhythm without noted murmurs, no JVD or lower extremity edema. ABDOMEN: Soft, left lower quadrant/suprapubic discomfort on palpation, non- distended with bowel sounds. MUSCULOSKELETAL: No tenderness, deformities, or effusions noted on gross inspection. EXTREMITIES: No cyanosis, clubbing or edema. SKIN: Inspection of the skin reveals no rashes NEUROLOGIC: Alert and oriented x 4. Strength and sensation to light touch were grossly intact x 4. Medications Administered Generic Name Dose Route Start Last Admin Trade Name Freq PRN Reason Stop Dose Admin Potassium Chloride 10 meq in 100 mls @ 100 mls/hr 09/07/23 22:45 09/07/23 23:14 Potassium Chloride/H20 IV 09/08/23 00:44 100 mls/hr Q1H JOEL Administration Calcium Gluconate 2 gm in 100 mls @ 50 mls/hr 09/07/23 23:04 09/07/23 23:48 Calcium Gluconate IV 09/08/23 01:03 50 mls/hr ONCE ONE Administration Sodium Chloride 500 mls @ 999 mls/hr 09/07/23 23:30 09/07/23 23:34 Ns IV 09/08/23 00:00 999 mls/hr .Q31M JOEL Administration Discontinued Medications Generic Name Dose Route Start Last Admin Trade Name Freq PRN Reason Stop Dose Admin Potassium Chloride 60 meq 09/07/23 22:32 09/07/23 23:05 Potassium Chloride Packet 20 Meq Packet PO 09/07/23 22:33 60 meq ONCE ONE Administration Medical Decision Making Medical Decision Making [facility] Narrative: 2215: 68-year-old female with history and clinical presentation, DDX: Viral illness, diverticulitis, urinary tract infect, but overall feel that this is likely secondary to patient's chronic kidney disease. I reviewed all investigations and hematologic indices are chronically stable without leukocytosis, there is a stable thrombocytopenia and normocytic anemia the latter of which is likely related to patient's renal function. VBG demonstrates evidence to suggest metabolic acidosis. Chemistries indices demonstrate chronically stable CKD with BUN 116 and creatinine-6.98 with a bicarb-19 in a mild anion gap likely related with combination of fluids status and kidney function. Potassium is noted to be low at 2.9 and will replete, magnesium is within normal limits, calcium is noted to be low despite adjustment with albumin levels and this is consistent, once again, with underlying CKD. Although BNP is elevated patient has no symptoms of shortness of breath, no pitting edema and no bibasilar rales appreciated on auscultation. Chest x-ray does not demonstrate any infiltrate. Serologies negative for COVID-19. I discussed case with inpatient hospitalist who accepts admission, I also discussed this case with Dr. Bowden who agrees with potassium and calcium repletion and will likely schedule dialysis on Saturday. Differential Diagnosis Differential Diagnoses: The differential diagnosis associated with the presentation includes Please see the discussion above Admission/Observation Consideration of admission/observation: Escalation of care including admission/observation considered Please see the discussion above Consult Healthcare Provider Management of the patient was discussed with: Hospitalist Please see the discussion above Lab Data MDM Lab Attestation statement: I reviewed the patient's lab results. Please see the discussion above 09/07/23 21:35 09/07/23 21:35 Labs: Lab Results 09/07/23 09/07/23 09/07/23 Range/Units 20:58 21:28 21:35 WBC 7.7 (4.8-10.8) X10*3/uL RBC 3.28 L (4.20-5.50) X10*6/uL Hgb 9.1 L (12.0-16.0) g/dl Hct 28.0 L (37.0-47.0) % MCV 85.4 (80.0-98.0) fL MCH 27.7 (27.0-33.0) pg MCHC 32.5 (31.0-35.0) g/dl RDW 15.9 (11.0-16.0) % Plt Count 140 L (160-400) X10*3/uL MPV 10.6 (9.4-12.3) fL Immature Gran % (Auto) 0.4 (0.0-0.4) % Neut % (Auto) 71.4 (45-73) % Lymph % (Auto) 12.3 L (20-40) % Woodward % (Auto) 10.2 (2-11) % Eos % (Auto) 5.2 H (0-4) % Baso % (Auto) 0.5 (0-2) % Lymph # (Auto) 0.9 L (1.2-4.9) X10*3/uL Woodward # (Auto) 0.8 (0.1-1.2) X10*3/uL Eos # (Auto) 0.4 (0.0-0.4) X10*3/uL Baso # (Auto) 0.0 (0.0-0.2) X10*3/uL Abs Immat Gran (auto) 0.03 (0.00-0.03) X10*3/uL Absolute Neuts (auto) 5.5 (2.0-8.3) x10*3/uL Absolute Nucleated RBC 0.000 (0.0-0.012) X10*3/uL Nucleated RBC % (auto) 0.0 (0.0-0.2) /100WBC VBG pH (7.32-7.43) VBG pCO2 mmHg VBG pO2 mmHg VBG HCO3 (22-26) mmol/L VBG O2 Saturation % VBG Base Excess mmol/L Sodium 141 (135-145) mmol/L Potassium 2.9 L* D (3.3-5.1) mmol/L Chloride 104 (96-108) mmol/L Carbon Dioxide 19 L (22-29) mmol/L Anion Gap 22 H (12-20) BUN 116 H (9-16) mg/dL Creatinine 6.98 H* (0.5-1.4) mg/dL Estim Creat Clear Calc 6.3 Estimated GFR 6 POC Glucose 216 H (60-115) mg/dL Random Glucose 176 H (60-115) mg/dL Calcium 5.1 L* (8.4-10.2) mg/dL Phosphorus 7.9 H (2.7-4.5) mg/dL Magnesium 1.8 (1.6-2.6) mg/dL Total Bilirubin 0.4 (0.0-1.0) mg/dL AST 24 (5-31) U/L ALT 11 (0-31) U/L Alkaline Phosphatase 57 (39-117) U/L B-Natriuretic Peptide 395 H (<100) pg/mL Total Protein 8.3 H (6.5-8.0) g/dL Albumin 3.3 L (3.5-5.0) g/dL COVID-19 (AIDA) Negative (Negative) COVID-19 Clin Com See Note 09/07/23 Range/Units 21:38 WBC (4.8-10.8) X10*3/uL RBC (4.20-5.50) X10*6/uL Hgb (12.0-16.0) g/dl Hct (37.0-47.0) % MCV (80.0-98.0) fL MCH (27.0-33.0) pg MCHC (31.0-35.0) g/dl RDW (11.0-16.0) % Plt Count (160-400) X10*3/uL MPV (9.4-12.3) fL Immature Gran % (Auto) (0.0-0.4) % Neut % (Auto) (45-73) % Lymph % (Auto) (20-40) % Woodward % (Auto) (2-11) % Eos % (Auto) (0-4) % Baso % (Auto) (0-2) % Lymph # (Auto) (1.2-4.9) X10*3/uL Woodward # (Auto) (0.1-1.2) X10*3/uL Eos # (Auto) (0.0-0.4) X10*3/uL Baso # (Auto) (0.0-0.2) X10*3/uL Abs Immat Gran (auto) (0.00-0.03) X10*3/uL Absolute Neuts (auto) (2.0-8.3) x10*3/uL Absolute Nucleated RBC (0.0-0.012) X10*3/uL Nucleated RBC % (auto) (0.0-0.2) /100WBC VBG pH 7.27 L (7.32-7.43) VBG pCO2 44 mmHg VBG pO2 39 mmHg VBG HCO3 20 L (22-26) mmol/L VBG O2 Saturation 55.0 % VBG Base Excess -5.7 mmol/L Sodium (135-145) mmol/L Potassium (3.3-5.1) mmol/L Chloride (96-108) mmol/L Carbon Dioxide (22-29) mmol/L Anion Gap (12-20) BUN (9-16) mg/dL Creatinine (0.5-1.4) mg/dL Estim Creat Clear Calc Estimated GFR POC Glucose (60-115) mg/dL Random Glucose (60-115) mg/dL Calcium (8.4-10.2) mg/dL Phosphorus (2.7-4.5) mg/dL Magnesium (1.6-2.6) mg/dL Total Bilirubin (0.0-1.0) mg/dL AST (5-31) U/L ALT (0-31) U/L Alkaline Phosphatase (39-117) U/L B-Natriuretic Peptide (<100) pg/mL Total Protein (6.5-8.0) g/dL Albumin (3.5-5.0) g/dL COVID-19 (AIDA) (Negative) COVID-19 Clin Com Independent Interpretation I performed an independent interpretation of an: EKG Interpretation: Normal sinus rhythm, HR-68, no STEMI, MI/QRS is within normal limits, [id number]. Radiology Impression Discussion of test interpretation with radiology: I have reviewed the radiologist's reading. Radiologist Impression: Please see the discussion above External Record Review External record reviewed: Outpatient record, Prior outpatient labs and Prior outpatient radiology Chronic Conditions Patient?s care impacted by: Diabetes, Hypertension and Other CKD Critical Care Time Critical Care Time Critical Care Time: Yes Total Critical Care Time: 60 Attestation: I personally attest to this time spent taking care of the patient. Discharge Plan Discharge Clinical Impression: Hypokalemia, CKD (chronic kidney disease), Uremia, Hypocalcemia, Prolonged QT interval Patient Disposition: Admitted As Inpatient
[2023-09-07 21:48] LABS: Venous Blood Gas Refer to POC result
[2023-09-07 21:48] LABS: VBG Base Excess -5.7 mmol/L; VBG HCO3 20 mmol/L (22-26); VBG pCO2 44 mmHg; VBG pH 7.27 (7.32-7.43); VBG pO2 39 mmHg
[2023-09-07 21:52] LABS: Basophils Percent Auto 0.5 % (0-2); Eosinophils Absolute Auto 0.4 X10*3/uL (0.0-0.4); Eosinophils Percent Auto 5.2 % (0-4); Hemoglobin 9.1 g/dl (12.0-16.0); Imm Gran Abs Auto 0.03 X10*3/uL (0.00-0.03); Imm Gran Pct Auto 0.4 % (0.0-0.4); Lymphocytes Absolute Auto 0.9 X10*3/uL (1.2-4.9); Lymphocytes Percent Auto 12.3 % (20-40); Mean Corpuscular HGB Conc 32.5 g/dl (31.0-35.0); Mean Corpuscular Hemoglobin 27.7 pg (27.0-33.0); Mean Corpuscular Volume 85.4 fL (80.0-98.0); Mean Platelet Volume 10.6 fL (9.4-12.3); Monocytes Absolute Auto 0.8 X10*3/uL (0.1-1.2); Monocytes Percent Auto 10.2 % (2-11); Neutrophils Absolute Auto 5.5 x10*3/uL (2.0-8.3); Neutrophils Percent Auto 71.4 % (45-73); Platelet Count 140 X10*3/uL (160-400); Red Blood Count 3.28 X10*6/uL (4.20-5.50); Red Cell Distribution Width 15.9 % (11.0-16.0); White Blood Count 7.7 X10*3/uL (4.8-10.8)
[2023-09-07 21:56] LABS: COVID-19 Test Negative (Negative); IDNOW Serial# 152EDE1D
[2023-09-07 22:05] LABS: B Type Natriuretic Peptide 395 pg/mL (<100)
[2023-09-07 22:13] LABS: Alanine Aminotransferase 11 U/L (0-31); Albumin Level 3.3 g/dL (3.5-5.0); Alkaline Phosphatase 57 U/L (39-117); Anion Gap 22 (12-20); Aspartate Amino Transferase 24 U/L (5-31); Bilirubin Total 0.4 mg/dL (0.0-1.0); Blood Urea Nitrogen 116 mg/dL (9-16); Calcium 5.1 mg/dL (8.4-10.2); Carbon Dioxide 19 mmol/L (22-29); Chloride 104 mmol/L (96-108); Creatinine Clr Calc Pharmacy 6.3; Estimated Glomerular Filt Rate 6; Glucose Random 176 mg/dL (60-115); Magnesium 1.8 mg/dL (1.6-2.6); Potassium 2.9 mmol/L (3.3-5.1); Sodium 141 mmol/L (135-145); Total Protein 8.3 g/dL (6.5-8.0)
[2023-09-07] MEDS: Potassium Chloride Packet 20 MEQ PACKET 60 MEQ PO (23:05)
[2023-09-07] MEDS: Potassium Chloride/H20 10 MEQ/100 ML PIGGYBACK 100 MEQ IV (23:14)
[2023-09-07 23:27] LABS: Phosphorus 7.9 mg/dL (2.7-4.5)
[2023-09-07] MEDS: 0.9 % Sodium Chloride 500 ML 999 ML IV (23:34)
[2023-09-07] MEDS: Calcium Gluconate/NaCl,Iso-Osm 2 GM/100 ML PLAST..BAG IV (23:48)
--- NOTE | 2023-09-07 23:50 | P.HPHOSP_ITS ---
History of Present Illness Date of Service: 09/07/23 Attending physician on admission: Michela Negron Chief Complaint: Abdominal pain, nausea and vomiting Sarah So is a 68 years old woman with past medical history significant for advanced CKD, hypothyroidism (s/p thyroidectomy due to thyroid CA), HFrEF (35-40%), hypoparathyroidism (after thyroidectomy), hypertension, hypercholesterolemia, COPD -no home oxygen and type 2 diabetes mellitus on insulin was brought to the emergency department via ambulance due to one-week history of upper abdominal discomfort associated with nausea and vomiting. She denied episodes of diarrhea or pain with urination. She makes urine. She does follow with Dr. Bowden as an outpatient and hemodialysis has been planned. Patient was advised to come to the emergency department for evaluation today by [facility] provider after she was noted to have abnormal labs and received treatment with 500 mL of NS. Patient denied any cardiopulmonary symptoms. Denied alcohol abuse, tobacco smoking or illicit drug use. Patient is a vague historian. Patient was taking furosemide 80 mg p.o. and was held yesterday. In the ED, she was found to have normal vital signs. Blood workup showed no leukocytosis. Hemoglobin is at baseline and there is mild thrombocytopenia 140. Corrected calcium is 5.3 (same as 2 days ago), magnesium is normal and there is significant hypokalemia of 2.9. Creatinine is 6.98 and BUN 116 (similar to level obtained 2 days ago). Venous pH is 7.27 and bicarb 19. BNP is 395. LFTs are normal. ECG showed prolonged QT (559 ms) and T-wave inversion in lateral leads. CXR is negative. ED tx: Calcium gluconate 2 g IV, KCL 40 mEq IV, NS 500 ml and potassium chloride 60 mEq. Review of Systems 2 Review of Systems: All 12 systems were reviewed and normal except as noted in HPI. [facility] Medical History CHF exacerbation Anemia CKD (chronic kidney disease) stage 5, GFR less than 15 ml/min Hypocalcemia Nicotine dependence, cigarettes, uncomplicated Atherosclerotic cardiovascular disease Thyroid cancer (~2008) 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) Hypothyroidism associated with surgical procedure (~2008) Uncontrolled type 2 diabetes mellitus with hyperglycemia (~1986) Pneumonitis ARDS (adult respiratory distress syndrome) Neuropathy Asthma-COPD overlap syndrome Anemia HTN (hypertension) Hypercholesteremia Family History Mother Hypertension Diabetes Father AA (alcohol abuse) Surgical History History of thyroidectomy History of back surgery History of 2 sections History of angioplasty History of amputation of left great toe Social History Household Members: Family Housing: Apartment 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) Alcohol intake: never 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 Tobacco Use Status: Former Tobacco user Years Smoked: 45 Smoked in Last 30 Days: No Use of substances other than those prescribed or required for medical reasons: No Advance Directives: Yes Advance Directives on File: Yes Advance Directives Date on File: 09/13/20 Do you have a plan to hurt others: No Plan service: No Current occupational status: disabled Meds Allergies Allergy/AdvReac Type Severity Reaction Status Date / Time ALLYSSA Inhibitors Allergy Mild COUGH Verified 09/05/23 13:55 [ALLYSSA INHIBITORS] cilostazol [CILOSTAZOL] Allergy Mild COUGH Verified 09/07/23 20:53 Active Medications: Current Medications Acetaminophen (Acetaminophen 325 Mg Tablet) 650 mg PO Q6H PRN PRN Reason: Pain, Mild (Pain Scale 1-3), fever or headache Heparin Sodium (Porcine) (Heparin Sodium,Porcine 5,000 Unit/Ml Vial) 5,000 unit SUBCUT Q8H [facility] Potassium Chloride (Potassium Chloride/H20) 10 meq in 100 mls @ 100 mls/hr IV Q1H JOEL Stop: 09/08/23 00:44 Last Admin: 09/07/23 23:14 Dose: 100 mls/hr Calcium Gluconate (Calcium Gluconate) 2 gm in 100 mls @ 50 mls/hr IV ONCE ONE Stop: 09/08/23 01:03 Last Admin: 09/07/23 23:48 Dose: 50 mls/hr Sodium Chloride (Ns) 500 mls @ 999 mls/hr IV .Q31M JOEL Stop: 09/08/23 00:00 Last Admin: 09/07/23 23:34 Dose: 999 mls/hr Sodium Chloride (Ns) 1,000 mls @ 100 mls/hr IVCONT .Q10H [facility] Stop: 09/08/23 10:59 Sodium Chloride (0.9 % Sodium Chloride Flush 3 Ml Syringe) 3 ml IVFLUSH QSHIFT [facility] Home Medications ?Medication ?Instructions ?Recorded ?Confirmed ?Last Taken ?Type cilostazol 100 mg tablet 100 mg PO BID@1200,2100 05/17/20 09/05/23 08/17/20 20:00 History ferrous sulfate 325 mg (65 mg 1 tab PO QAM 05/17/20 09/05/23 08/17/20 08:30 History iron) tablet blood sugar diagnostic (FreeStyle #10 ea 05/30/21 09/05/23 Unknown History Lite Strips) insulin aspart U-100 100 unit/mL 8 unit subcut TIDAC 05/30/21 09/05/23 Unknown History (3 mL) subcutaneous pen (Novolog FlexPen U-100 Insulin aspart) lancets 33 gauge (TRUEplus Lancets) #100 ea 05/30/21 09/05/23 Unknown History cholecalciferol (vitamin D3) 50 50 mcg PO DAILY 04/24/22 09/05/23 Unknown History mcg (2,000 unit) tablet dapagliflozin propanediol 5 mg 5 mg PO DAILY 04/24/22 09/05/23 Unknown History tablet (Farxiga) linagliptin 5 mg tablet (Tradjenta) 5 mg PO DAILY@1200 04/24/22 09/05/23 Unknown History potassium chloride 20 mEq 20 meq PO DAILY@1800 04/24/22 09/05/23 Unknown History tablet,extended release(part/cryst) pen needle, diabetic 32 gauge x #50 ea 05/03/22 09/05/23 Unknown History (Pentips) aspirin 81 mg tablet,delayed 81 mg PO DAILY@1200 06/20/22 09/05/23 Unknown History release atorvastatin 80 mg tablet 80 mg PO BEDTIME 06/20/22 09/05/23 Unknown History clopidogrel 75 mg tablet 75 mg PO QAM 06/20/22 09/05/23 Unknown History montelukast 10 mg tablet 10 mg PO BEDTIME 06/20/22 09/05/23 Unknown History sertraline 25 mg tablet 25 mg PO DAILY 06/20/22 09/05/23 Unknown History levothyroxine 150 mcg tablet 150 mcg PO DAILY 03/21/23 09/05/23 Unknown History gabapentin 300 mg capsule 300 mg PO BEDTIME 04/25/23 09/05/23 Unknown History budesonide-formoterol HFA 160 2 puff inhalation BID 07/23/23 09/05/23 Unknown History mcg-4.5 mcg/actuation aerosol inhaler calcium carbonate (Calcium Antacid) 200 mg PO TID@1200,1800,2100 07/23/23 09/05/23 Unknown History cetirizine 5 mg tablet 5 mg PO DAILY PRN allergies 07/23/23 09/05/23 Unknown History insulin degludec 100 unit/mL (3 13 unit subcut DAILY@1400 PRN 07/23/23 09/05/23 Unknown History mL) subcutaneous pen (Tresiba Hyperglycemia FlexTouch U-100 insulin) umeclidinium 62.5 mcg/actuation 1 inh inhalation QAM 07/23/23 09/05/23 Unknown History blister powder for inhalation (Incruse Ellipta) Physical Exam 2 Vital Signs and Narrative: Vital Signs: Last Vital Signs Temp 98.1 F 09/07/23 21:01 Pulse 67 09/07/23 21:01 Resp 16 09/07/23 21:01 BP 131/62 09/07/23 21:01 Pulse Ox 94 09/07/23 21:01 O2 Del Method Room Air 09/07/23 21:01 BMI result Body Mass Index 27.2 Const: Other: Constitutional - Awake and Alert, No apparent distress. Chronically ill. Cooperative. HEENT - Atraumatic head. Normal sclerae. Dry oral mucosa. Heart - S1S2, RRR, No edema Lungs - Normal lung expansion, Normal respiratory effort, No respiratory distress, CTA bilaterally Abdomen - NT / ND; increased BS; No rebound or guarding Extremities - no calf tenderness bilaterally, no swelling. Left foot: 1st and 3rd toe amputation. Right toe: Small 1st toe ulcer without evidence of infection, discharges or necrosis. Skin - Warm/Dry Neurological - Alert & oriented x3. No focal weakness grossly noted. Normal speech. Psychological - Appropriate affect Results Labs 09/07/23 21:35 09/07/23 21:35 Labs: Laboratory Results - last 24 hr 09/07/23 09/07/23 09/07/23 20:58 21:28 21:35 MCV 85.4 MCH 27.7 MCHC 32.5 RDW 15.9 Plt Count 140 L MPV 10.6 Immature Gran % (Auto) 0.4 Neut % (Auto) 71.4 Lymph % (Auto) 12.3 L Burnett % (Auto) 10.2 Eos % (Auto) 5.2 H Baso % (Auto) 0.5 Lymph # (Auto) 0.9 L Burnett # (Auto) 0.8 Eos # (Auto) 0.4 Baso # (Auto) 0.0 Abs Immat Gran (auto) 0.03 Absolute Neuts (auto) 5.5 Absolute Nucleated RBC 0.000 Nucleated RBC % (auto) 0.0 VBG pH VBG pCO2 VBG pO2 VBG HCO3 VBG O2 Saturation VBG Base Excess Anion Gap 22 H Estim Creat Clear Calc 6.3 Estimated GFR 6 POC Glucose 216 H Random Glucose 176 H Calcium 5.1 L* Phosphorus 7.9 H Magnesium 1.8 Total Bilirubin 0.4 AST 24 ALT 11 Alkaline Phosphatase 57 B-Natriuretic Peptide 395 H Total Protein 8.3 H Albumin 3.3 L COVID-19 (AIDA) Negative COVID-19 Clin Com See Note 09/07/23 21:38 MCV MCH MCHC RDW Plt Count MPV Immature Gran % (Auto) Neut % (Auto) Lymph % (Auto) Burnett % (Auto) Eos % (Auto) Baso % (Auto) Lymph # (Auto) Burnett # (Auto) Eos # (Auto) Baso # (Auto) Abs Immat Gran (auto) Absolute Neuts (auto) Absolute Nucleated RBC Nucleated RBC % (auto) VBG pH 7.27 L VBG pCO2 44 VBG pO2 39 VBG HCO3 20 L VBG O2 Saturation 55.0 VBG Base Excess -5.7 Anion Gap Estim Creat Clear Calc Estimated GFR POC Glucose Random Glucose Calcium Phosphorus Magnesium Total Bilirubin AST ALT Alkaline Phosphatase B-Natriuretic Peptide Total Protein Albumin COVID-19 (AIDA) COVID-19 Clin Com Imaging Radiologist's Impressions: Impressions Chest X-Ray 09/07/23 21:15 IMPRESSION: No acute cardiopulmonary process. Assessment and Plan (1) Uremia: Status: Acute (2) Hypocalcemia: Status: Acute (3) Prolonged QT interval: Status: Acute (4) Hypokalemia: Status: Acute Plan Sarah So is a 68 y/o woman admitted with: * Abdominal discomfort, nausea and vomiting secondary to uremia. Admit to hospitalist service. Symptomatic therapy with Zofran. Nephrology consult - Dr. Bowden contacted by ED and will order hemodialysis on Saturday requiring IV fluids. Continue hold furosemide. Gentle IV fluids. Avoid nephrotoxic agents. * Severe hypocalcemia, hypophosphatemia and elevated PTH likely secondary hyperparathyroidism. Repleate calcium and continue phosphate binders. Check lipase, vitamin-D and ionized calcium. Continue to monitor electrolytes. * Prolonged QT secondary to hypocalcemia. Telemetry. Continue calcium supplementation. Continue to monitor QT. * Metabolic acidosis secondary to renal failure. Gentle IV fluids. Continue bicarb. Continue to monitor bicarb and pH. * Type 2 diabetes mellitus. Blood glucose monitoring before meals and bedtime. Insulin sliding scale for now. Diabetic diet. * Hyperlipidemia. Continue statin. * Chronic anemia due to CKD. Continue iron supplementation orally. Might need Procrit. Will check transferrin level. * Hypothyroidism s/p thyroidectomy (hx of thyroid CA -unknown type). Last TSH is normal (2 days ago). Continue levothyroxine. * Hypertension. Continue hydralazine and amlodipine. * CAD. Continue Isordil, statin and aspirin. * HFrEF. EF 35-40%. No decompensated at this time. * COPD -not home oxygen. No acute symptoms. Continue inhalers. * PAD s/p SFA plasty and aortogram. Continue statin and Plavix. DVT prophylaxis: Heparin Code status: Full Patient will need hospitalization for at least 2 midnights for uremia treatment with hemodialysis. Patient also cardiac monitoring, VS checks and close monitoring of electrolytes. Quality Stroke Does the patient have a stroke diagnosis?: No VTE Prior VTE?: No VTE Risk Level:: Medical - moderate - high VTE Device Contraindication: Treatment Not Indicated VTE Drug Contraindication: N/A - Med Ordered
[2023-09-08] VITALS (8 sets, daily range): BP systolic 108–149; BP diastolic 42–71; PULSE 57–72; RESP 13–20; TEMP 36.2–36.6; O2SAT 97–100
[2023-09-08] MEDS: Potassium Chloride/H20 10 MEQ/100 ML PIGGYBACK 100 MEQ IV (00:13)
[2023-09-08] MEDS: Acetaminophen 325 MG TABLET 975 MG PO (00:32)
[2023-09-08] MEDS: Sodium Bicarbonate 650 MG TABLET PO (00:33)
[2023-09-08 01:04] LABS: Lipase 59 U/L (8-78)
[2023-09-08] MEDS: 0.9 % Sodium Chloride 1,000 ML 70 ML IVCONT (01:47)
[2023-09-08 03:26] LABS: Anion Gap 20 (12-20); Blood Urea Nitrogen 110 mg/dL (9-16); Calcium 4.9 mg/dL (8.4-10.2); Carbon Dioxide 16 mmol/L (22-29); Chloride 109 mmol/L (96-108); Creatinine Clr Calc Pharmacy 6.4; Estimated Glomerular Filt Rate 6; Glucose Random 148 mg/dL (60-115); Potassium 4.1 mmol/L (3.3-5.1); Sodium 141 mmol/L (135-145)
--- NOTE | 2023-09-08 04:06 | PC.NURSE ---
pt resting comfortably with eyes closed breathing even and unlabored, no apparent distress noted, no need to use the bathroom yet. call brittney w/in reach
--- NOTE | 2023-09-08 04:59 | PC.NURSE ---
admission notes: pt BIBA for weakness x1 week with abdominal pain, nausea and abnormal labs. 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 saw pt at home, took labs, called pt to tell her to come to ED for abnormal labs. pt A/O x4, ambulatory with walker. pt on tele, sinus qing. admit for uremia, hypokalemia, hypocalcemia and prolong QT. gentle IVF, 20g L forearm, 20g RAC. hx of advanced CKD, DM, HTN, COPD. still need UA
[2023-09-08 05:05] LABS: Venous Blood Gas Refer to POC result
[2023-09-08 05:07] LABS: VBG Base Excess -7.8 mmol/L; VBG HCO3 17 mmol/L (22-26); VBG pCO2 31 mmHg; VBG pH 7.33 (7.32-7.43); VBG pO2 93 mmHg
[2023-09-08 05:22] LABS: MANUAL DIFF FLAG NO
[2023-09-08 05:34] LABS: Basophils Percent Auto 0.5 % (0-2); Eosinophils Absolute Auto 0.6 X10*3/uL (0.0-0.4); Eosinophils Percent Auto 7.8 % (0-4); Hematocrit 26.3 % (37.0-47.0); Hemoglobin 8.5 g/dl (12.0-16.0); Imm Gran Abs Auto 0.03 X10*3/uL (0.00-0.03); Imm Gran Pct Auto 0.4 % (0.0-0.4); Lymphocytes Absolute Auto 1.5 X10*3/uL (1.2-4.9); Lymphocytes Percent Auto 18.2 % (20-40); Mean Corpuscular HGB Conc 32.3 g/dl (31.0-35.0); Mean Corpuscular Hemoglobin 27.5 pg (27.0-33.0); Mean Corpuscular Volume 85.1 fL (80.0-98.0); Mean Platelet Volume 10.8 fL (9.4-12.3); Monocytes Absolute Auto 0.8 X10*3/uL (0.1-1.2); Monocytes Percent Auto 10.4 % (2-11); Neutrophils Percent Auto 62.7 % (45-73); Platelet Count 119 X10*3/uL (160-400); Red Blood Count 3.09 X10*6/uL (4.20-5.50); Red Cell Distribution Width 15.9 % (11.0-16.0)
[2023-09-08 05:46] LABS: Alanine Aminotransferase 10 U/L (0-31); Albumin Level 2.7 g/dL (3.5-5.0); Alkaline Phosphatase 46 U/L (39-117); Anion Gap 19 (12-20); Aspartate Amino Transferase 23 U/L (5-31); Bilirubin Total 0.4 mg/dL (0.0-1.0); Blood Urea Nitrogen 109 mg/dL (9-16); Calcium 4.9 mg/dL (8.4-10.2); Carbon Dioxide 18 mmol/L (22-29); Chloride 109 mmol/L (96-108); Creatinine Clr Calc Pharmacy 6.4; Estimated Glomerular Filt Rate 6; Glucose Random 128 mg/dL (60-115); Phosphorus 7.4 mg/dL (2.7-4.5); Potassium 3.8 mmol/L (3.3-5.1); Sodium 142 mmol/L (135-145)
--- NOTE | 2023-09-08 06:00 | ECG_ITS ---
Test Reason : PROLONGED QT Blood Pressure : / mmHG Vent. Rate : 066 BPM Atrial Rate : 066 BPM P-R Int : 168 ms QRS Dur : 080 ms QT Int : 506 ms P-R-T Axes : 094 052 117 degrees QTc Int : 530 ms Normal sinus rhythm Nonspecific T wave abnormality Prolonged QT Abnormal ECG When compared with ECG of 07-SEP-2023 21:16, No significant change was found Referred By: Michela Negron Electronically Signed By:ANTOINETTE ARNETT MD
[2023-09-08 06:04] LABS: Vitamin D 25-OH Total 23.8 ng/mL (>30)
[2023-09-08] MEDS: Heparin Sodium,Porcine 5,000 UNIT/ML VIAL 5000 UNIT SUBCUT ×3 (06:28→21:52)
--- NOTE | 2023-09-08 06:34 | PC.NURSE ---
pt ambulated well to bathroom with walker, standby assist. UA sent
[2023-09-08 06:50] LABS: Appearance Urine Clear; Color Urine Yellow; Glucose Urine UA 250 mg/dL (Negative); Leukocyte Esterase Urine Trace (Negative); Nitrite Urine Negative (Negative); UMIC TRIGGER UACC YES; Urine Blood Trace (Negative); Urine Ketones Negative (Negative); Urine Protein 30 (1+) mg/dL (Neg-Trace)
[2023-09-08 06:56] LABS: Bacteria Urine None Seen (None Seen); Hyaline Casts Urine 0-2 /LPF (0-2); RBC Urine 0-2 /HPF (0-2); WBC Urine 0-5 /HPF (0-5)
[2023-09-08 07:53] LABS: Glucose, Whole Blood 130 mg/dL (60-115)
[2023-09-08] MEDS: Calcium Gluconate/NaCl,Iso-Osm 2 GM/100 ML PLAST..BAG IV ×2 (07:56→21:49)
[2023-09-08] MEDS: Calcium Carbonate 750 MG TAB.CHEW PO ×3 (07:56→21:54)
--- NOTE | 2023-09-08 08:48 | PHA.MEDREC ---
Addendum entered by Jerri Mendoza [facility] 09/08/23 08:50: Forgot to mention that patient is prescriber sertraline 25 mg, SIG is to take 3 tablets for a dose of 75 mg daily. however patient confirmed she only takes 1 tablet daily. Original Note: Pharmacy Consult ? Medication Reconciliation Pharmacy has completed the medication reconciliation. Patient states she is finished with her doxycycline regimen however patient was prescribed a 14 day course on 09/06/23. She also states she is no longer on Tradjenta and Plavix. She confirmed she takes 13 units of Tresiba in the morning and novolog with each meal but can not remember the units, I went with the prescribed amount of 5 U TIDAC.
--- NOTE | 2023-09-08 09:28 | MHC.CM.PN ---
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 Home/resume said services is the goal and CM has initiated and will follow for dc planning. HCP is on file (Divya)and PCP is Dr. Senait Pal.
--- NOTE | 2023-09-08 09:38 | MHC.CM.PN ---
Addendum entered by Genoveva Paniagua 09/08/23 10:01: CORRECTION! Patient was active with [facility] in the past; a new referral has been sent to [facility] on this admission. Original Note: Patient just up from ED,CM delivered IMM to Patient's room, where she and her 2 family members received it and a copy has been placed on the chart.
--- NOTE | 2023-09-08 11:05 | HO.PM.IMPN ---
Subjective Subjective Date of Service: 09/08/23 Review of Systems follow up abdominal pain feeling better no nausea or vomiting Physical Exam Vital Signs: Vital Signs: Last Vital Signs Temp 97.1 F 09/08/23 09:58 Pulse 70 09/08/23 09:58 Resp 18 09/08/23 09:58 BP 149/68 H 09/08/23 09:58 Pulse Ox 100 09/08/23 09:58 O2 Del Method Room Air 09/08/23 09:58 BMI result Body Mass Index 27.2 Appearing in no acute distress lung sounds are clear to auscultation heart regular rate rhythm, clear S1, S2 positive bowel sounds, abdomen is soft, nontender neuro patient is alert x3, no focal deficits Objective Data Active Medications Acetaminophen (Acetaminophen 325 Mg Tablet) 650 mg PO Q6H PRN PRN Reason: Pain, Mild (Pain Scale 1-3), fever or headache Calcium Carbonate (Calcium Carbonate 750 Mg Tab.Chew) 750 mg PO TID [facility] Last Admin: 09/08/23 07:56 Dose: 750 mg Documented By: KAROLINA Glucose (Glucose Gel 15 Gm Gel..Gram.) 15 gm PO Q15M PRN; Protocol PRN Reason: per Hypoglycemia Standing Ord. Heparin Sodium (Porcine) (Heparin Sodium,Porcine 5,000 Unit/Ml Vial) 5,000 unit SUBCUT Q8H [facility] Last Admin: 09/08/23 06:28 Dose: 5,000 unit Documented By: SANTA Dextrose (D10) 250 mls @ 750 mls/hr IV Q15M PRN; Protocol PRN Reason: per Hypoglycemia Standing Ord. Insulin Human Lispro (Insulin Lispro 100 Unit/Ml 3 Ml Vial) 0 unit SUBCUT QIDACHS [facility]; Protocol Last Admin: 09/08/23 07:57 Dose: Not Given Documented By: KAROLINA Non-Admin Reason: No Insulin Coverage Sodium Chloride (0.9 % Sodium Chloride Flush 3 Ml Syringe) 3 ml IVFLUSH QSHIFT [facility] Last Admin: 09/08/23 07:57 Dose: Not Given Documented By: KAROLINA Non-Admin Reason: IV Running Labs 09/08/23 04:59 09/08/23 04:59 Labs: Laboratory Results - last 24 hr 09/07/23 09/07/23 09/07/23 20:58 21:28 21:35 MCV 85.4 MCH 27.7 MCHC 32.5 RDW 15.9 Plt Count 140 L MPV 10.6 Immature Gran % (Auto) 0.4 Neut % (Auto) 71.4 Lymph % (Auto) 12.3 L [place] % (Auto) 10.2 Eos % (Auto) 5.2 H Baso % (Auto) 0.5 Lymph # (Auto) 0.9 L [place] # (Auto) 0.8 Eos # (Auto) 0.4 Baso # (Auto) 0.0 Abs Immat Gran (auto) 0.03 Absolute Neuts (auto) 5.5 Absolute Nucleated RBC 0.000 Nucleated RBC % (auto) 0.0 VBG pH VBG pCO2 VBG pO2 VBG HCO3 VBG O2 Saturation VBG Base Excess Anion Gap 22 H Estim Creat Clear Calc 6.3 Estimated GFR 6 POC Glucose 216 H Random Glucose 176 H Calcium 5.1 L* Phosphorus 7.9 H Magnesium 1.8 Total Bilirubin 0.4 AST 24 ALT 11 Alkaline Phosphatase 57 B-Natriuretic Peptide 395 H Total Protein 8.3 H Albumin 3.3 L Lipase 59 25-OH Vitamin D Total Urine Color Urine Appearance Urine pH Ur Specific [place] Urine Protein Urine Glucose (UA) Urine Ketones Urine Blood Urine Nitrite Ur Leukocyte Esterase Urine RBC Urine WBC Ur Squamous Epith Cells Urine Bacteria Hyaline Casts COVID-19 ([facility]) Negative COVID-19 Clin Com See Note 09/07/23 09/08/23 09/08/23 21:38 02:57 04:59 MCV 85.1 MCH 27.5 MCHC 32.3 RDW 15.9 Plt Count 119 L MPV 10.8 Immature Gran % (Auto) 0.4 Neut % (Auto) 62.7 Lymph % (Auto) 18.2 L [place] % (Auto) 10.4 Eos % (Auto) 7.8 H Baso % (Auto) 0.5 Lymph # (Auto) 1.5 [place] # (Auto) 0.8 Eos # (Auto) 0.6 H Baso # (Auto) 0.0 Abs Immat Gran (auto) 0.03 Absolute Neuts (auto) 5.0 Absolute Nucleated RBC 0.000 Nucleated RBC % (auto) 0.0 VBG pH 7.27 L 7.33 VBG pCO2 44 31 VBG pO2 39 93 VBG HCO3 20 L 17 L VBG O2 Saturation 55.0 99.0 VBG Base Excess -5.7 -7.8 Anion Gap 20 19 Estim Creat Clear Calc 6.4 6.4 Estimated GFR 6 6 POC Glucose Random Glucose 148 H 128 H Calcium 4.9 L* 4.9 L* Phosphorus 7.4 H Magnesium Total Bilirubin 0.4 AST 23 ALT 10 Alkaline Phosphatase 46 B-Natriuretic Peptide Total Protein 7.0 Albumin 2.7 L Lipase 25-OH Vitamin D Total 23.8 L Urine Color Urine Appearance Urine pH Ur Specific [place] Urine Protein Urine Glucose (UA) Urine Ketones Urine Blood Urine Nitrite Ur Leukocyte Esterase Urine RBC Urine WBC Ur Squamous Epith Cells Urine Bacteria Hyaline Casts COVID-19 ([facility]IDA) COVID-19 Clin Com 09/08/23 09/08/23 06:26 07:49 MCV MCH MCHC RDW Plt Count MPV Immature Gran % (Auto) Neut % (Auto) Lymph % (Auto) [place] % (Auto) Eos % (Auto) Baso % (Auto) Lymph # (Auto) [place] # (Auto) Eos # (Auto) Baso # (Auto) Abs Immat Gran (auto) Absolute Neuts (auto) Absolute Nucleated RBC Nucleated RBC % (auto) VBG pH VBG pCO2 VBG pO2 VBG HCO3 VBG O2 Saturation VBG Base Excess Anion Gap Estim Creat Clear Calc Estimated GFR POC Glucose 130 H Random Glucose Calcium Phosphorus Magnesium Total Bilirubin AST ALT Alkaline Phosphatase B-Natriuretic Peptide Total Protein Albumin Lipase 25-OH Vitamin D Total Urine Color Yellow Urine Appearance Clear Urine pH 5.0 Ur Specific [place] 1.010 Urine Protein 30 (1+) H Urine Glucose (UA) 250 H Urine Ketones Negative Urine Blood Trace H Urine Nitrite Negative Ur Leukocyte Esterase Trace H Urine RBC 0-2 Urine WBC 0-5 Ur Squamous Epith Cells 3-5 Urine Bacteria None Seen Hyaline Casts 0-2 COVID-19 ([facility]) COVID-19 Clin Com Assessment and Plan (1) Hypocalcemia: Status: Acute Plan Sarah So is a 68 y/o woman admitted withabd pain Abdominal discomfort, nausea and vomiting secondary to uremia. Symptomatic therapy with Zofran. Nephrology consult Continue to hold furosemide. Gentle IV fluids. Avoid nephrotoxic agents. plan for permacath and dialysis saturday as per nephrology Severe hypocalcemia, hypophosphatemia and elevated PTH likely secondary hyperparathyroidism. Replete calcium and continue phosphate binders. Check lipase, vitamin-D and ionized calcium. Continue to monitor electrolytes. Prolonged QT secondary to hypocalcemia. Telemetry. Continue calcium supplementation. Continue to monitor QT. Metabolic acidosis secondary to renal failure. Gentle IV fluids. Continue bicarb. Continue to monitor bicarb and pH. Type 2 diabetes mellitus. Blood glucose monitoring before meals and bedtime. Insulin sliding scale for now. Diabetic diet. Hyperlipidemia. Continue statin. Chronic anemia due to CKD. Continue iron supplementation orally. Might need Procrit. Will check transferrin level. Hypothyroidism s/p thyroidectomy (hx of thyroid CA -unknown type). Last TSH is normal (2 days ago). Continue levothyroxine. Hypertension. Continue hydralazine and amlodipine. CAD. Continue Isordil, statin and aspirin. HFrEF. EF 35-40%. No decompensated at this time. COPD -not home oxygen. No acute symptoms. Continue inhalers. PAD s/p SFA plasty and aortogram. Continue statin and Plavix. DVT prophylaxis: Heparin Attending Dr. Roe Code status: Full continue hosptial stay for uremia treatment with hemodialysis. Patient also cardiac monitoring, VS checks and close monitoring of electrolytes. Quality Stroke Does the patient have a stroke diagnosis?: No VTE Prior VTE?: No VTE Risk Level:: Medical - moderate - high VTE Device Contraindication: Treatment Not Indicated VTE Drug Contraindication: N/A - Med Ordered
[2023-09-08 11:17] LABS: Glucose, Whole Blood 224 mg/dL (60-115)
[2023-09-08] MEDS: Insulin Lispro 100 UNIT/ML 3 ML VIAL SUBCUT ×2 (11:18→16:53)
--- NOTE | 2023-09-08 11:38 | PM.EVENT ---
Event Note Date of Service: 09/08/23 Event Note: Iris is well known to me Advanced CKD approaching ESRD In the process of training for Peritoneal dialysis Need to start HD in te interim Arrang for Permcath tomorrow and initiate HD Replace Ca - Increase CAlcitriol to 1 mcg QD Full consult to follow Time Spent With Patient Time: Total time managing care of this patient today ____ minutes.
[2023-09-08] MEDS: calcitrioL 0.25 MCG CAPSULE 1 MCG PO (14:41)
[2023-09-08 15:59] LABS: Glucose, Whole Blood 165 mg/dL (60-115)
[2023-09-08 19:53] LABS: Glucose, Whole Blood 147 mg/dL (60-115)
[2023-09-08 20:43] LABS: Anion Gap 23 (12-20); Blood Urea Nitrogen 101 mg/dL (9-16); Calcium 5.9 mg/dL (8.4-10.2); Carbon Dioxide 12 mmol/L (22-29); Chloride 112 mmol/L (96-108); Creatinine Clr Calc Pharmacy 6.9; Estimated Glomerular Filt Rate 6; Glucose Random 143 mg/dL (60-115); Magnesium 1.9 mg/dL (1.6-2.6); Potassium 4.8 mmol/L (3.3-5.1); Sodium 142 mmol/L (135-145)
[2023-09-08] MEDS: 0.9 % Sodium Chloride Flush 3 ML SYRINGE IVFLUSH (21:50)
[2023-09-08] MEDS: ondansetron HCL 4 MG/2 ML VIAL IVPUSH (22:37)
[2023-09-08] MEDS: Melatonin 3 MG TABLET 6 MG PO (22:37)
[2023-09-09] VITALS (7 sets, daily range): BP systolic 119–177; BP diastolic 62–86; PULSE 58–76; RESP 16–18; TEMP 36.2–36.9; O2SAT 95–100
--- NOTE | 2023-09-09 | ECG_ITS ---
Test Reason : check QTC, hypocalcemia Blood Pressure : / mmHG Vent. Rate : 064 BPM Atrial Rate : 064 BPM P-R Int : 168 ms QRS Dur : 086 ms QT Int : 520 ms P-R-T Axes : 073 034 156 degrees QTc Int : 536 ms Poor data quality, interpretation may be adversely affected Normal sinus rhythm T wave abnormality, consider lateral ischemia Prolonged QT Abnormal ECG When compared with ECG of 08-SEP-2023 00:57, No significant change was found Referred By: Ladan Jackson Electronically Signed By:
[2023-09-09] MEDS: Levothyroxine Sodium 150 MCG TABLET PO (06:19)
[2023-09-09 06:57] LABS: INTERNATIONAL NORM RATIO 1.2 (0.9-1.1); Prothrombin Time 14.2 SEC (11.1-13.3)
[2023-09-09 07:46] LABS: Anion Gap 19 (12-20); Blood Urea Nitrogen 98 mg/dL (9-16); Calcium 5.8 mg/dL (8.4-10.2); Carbon Dioxide 19 mmol/L (22-29); Chloride 111 mmol/L (96-108); Creatinine Clr Calc Pharmacy 7.1; Estimated Glomerular Filt Rate 7; Glucose Random 109 mg/dL (60-115); Potassium 3.6 mmol/L (3.3-5.1); Sodium 143 mmol/L (135-145)
[2023-09-09] MEDS: Fluticasone/Vilanterol 200/25 BLST.W.DEV 1 PUFF INHALE (08:07)
[2023-09-09] MEDS: Tiotropium Bromide 2.5 mcg 1 PUFF/2.5 MCG MIST.INHAL 2 PUFF INHALE (08:08)
[2023-09-09] MEDS: hydrALAZINE HCl 10 MG TABLET PO ×3 (08:10→20:09)
[2023-09-09] MEDS: carvediloL 12.5 MG TABLET PO ×2 (08:11→20:09)
[2023-09-09] MEDS: 0.9 % Sodium Chloride Flush 3 ML SYRINGE IVFLUSH ×3 (08:11→20:15)
[2023-09-09] MEDS: Calcium Carbonate 750 MG TAB.CHEW PO ×3 (08:11→20:08)
[2023-09-09] MEDS: Ferrous Sulfate 324 MG TABLET.DR PO (08:11)
[2023-09-09] MEDS: calcitrioL 0.25 MCG CAPSULE 1 MCG PO (08:11)
[2023-09-09] MEDS: Isosorbide Mononitrate 30 MG TAB.ER.24H PO (08:11)
[2023-09-09] MEDS: Sertraline HCL 25 MG TABLET PO (08:11)
[2023-09-09 08:12] LABS: Glucose, Whole Blood 94 mg/dL (60-115)
--- NOTE | 2023-09-09 12:04 | PM.PROC ---
Brief Operative Note Date of procedure: 09/09/23 Pre-op diagnosis: Needs retirement access for HD Post-op diagnosis: same Procedure: Right IJ 23 cm Permcath placed using US and Fluoro. Tip at cavoatrial junction. Ok for immediate use. No immediate complications. Anesthesia: local (50 mcg Fentanyl)
--- NOTE | 2023-09-09 12:13 | HO.PM.IMPN ---
Subjective Subjective Date of Service: 09/09/23 Review of Systems follow up abdominal pain feeling better no nausea or vomiting Physical Exam Vital Signs: Vital Signs: Last Vital Signs Temp 98.4 F 09/09/23 08:01 Pulse 65 09/09/23 08:01 Resp 16 09/09/23 08:01 BP 144/69 H 09/09/23 08:01 Pulse Ox 95 09/09/23 08:01 O2 Del Method Room Air 09/09/23 08:01 BMI result Body Mass Index 27.2 Appearing in no acute distress lung sounds are clear to auscultation heart regular rate rhythm, clear S1, S2 positive bowel sounds, abdomen is soft, nontender neuro patient is alert x3, no focal deficits Objective Data Active Medications Acetaminophen (Acetaminophen 325 Mg Tablet) 650 mg PO Q6H PRN PRN Reason: Pain, Mild (Pain Scale 1-3), fever or headache Aspirin (Aspirin Enteric Coated 81 Mg Tablet.) 81 mg PO DAILY@1200 JOEL Atorvastatin Calcium (Atorvastatin Calcium 80 Mg Tablet) 80 mg PO BEDTIME [facility] Calcitriol (Calcitriol 0.25 Mcg Capsule) 1 mcg PO DAILY [facility] Last Admin: 09/09/23 08:11 Dose: 1 mcg Documented By: ADRIENNE Calcium Carbonate (Calcium Carbonate 750 Mg Tab.Chew) 750 mg PO TID [facility] Last Admin: 09/09/23 08:11 Dose: 750 mg Documented By: ADRIENNE Carvedilol (Carvedilol 12.5 Mg Tablet) 12.5 mg PO BID [facility]; Protocol Last Admin: 09/09/23 08:11 Dose: 12.5 mg Documented By: ADRIENNE Ferrous Sulfate (Ferrous Sulfate 324 Mg Tablet.) 324 mg PO DAILY [facility] Last Admin: 09/09/23 08:11 Dose: 324 mg Documented By: ADRIENNE Fluticasone/Vilanterol (Fluticasone/Vilanterol 200/25 Blst.W.Dev) 1 puff INHALE RDAILY [facility] Last Admin: 09/09/23 08:07 Dose: 1 puff Documented By: ADRIENNE Glucose (Glucose Gel 15 Gm Gel..Gram.) 15 gm PO Q15M PRN; Protocol PRN Reason: per Hypoglycemia Standing Ord. Heparin Sodium (Porcine) (Heparin Sodium,Porcine 5,000 Unit/Ml Vial) 5,000 unit SUBCUT Q8H [facility] Last Admin: 09/09/23 06:14 Dose: Not Given Documented By: HAZEL Non-Admin Reason: Dr. Landis states hold-for permacath insertion Hydralazine HCl (Hydralazine Hcl 10 Mg Tablet) 10 mg PO TID [facility]; Protocol Last Admin: 09/09/23 08:10 Dose: 10 mg Documented By: ADRIENNE Dextrose (D10) 250 mls @ 750 mls/hr IV Q15M PRN; Protocol PRN Reason: per Hypoglycemia Standing Ord. Insulin Human Lispro (Insulin Lispro 100 Unit/Ml 3 Ml Vial) 0 unit SUBCUT QIDACHS [facility]; Protocol Last Admin: 09/09/23 08:11 Dose: Not Given Documented By: ADRIENNE Non-Admin Reason: No Insulin Coverage Isosorbide Mononitrate (Isosorbide Mononitrate 30 Mg Tab.Er.24h) 30 mg PO DAILY [facility]; Protocol Last Admin: 09/09/23 08:11 Dose: 30 mg Documented By: ADRIENNE Levothyroxine Sodium (Levothyroxine Sodium 150 Mcg Tablet) 150 mcg PO DAILY@0630 [facility] Last Admin: 09/09/23 06:19 Dose: 150 mcg Documented By: HAZEL Melatonin (Melatonin 3 Mg Tablet) 6 mg PO BEDTIME PRN PRN Reason: Insomnia Last Admin: 09/08/23 22:37 Dose: 6 mg Documented By: HAZEL Montelukast Sodium (Montelukast Sodium 10 Mg Tablet) 10 mg PO BEDTIME [facility] Ondansetron HCl (Ondansetron Hcl 4 Mg/2 Ml Vial) 4 mg IVPUSH Q4H PRN PRN Reason: Nausea and Vomiting Last Admin: 09/08/23 22:37 Dose: 4 mg Documented By: HAZEL Sertraline HCl (Sertraline Hcl 25 Mg Tablet) 25 mg PO DAILY [facility] Last Admin: 09/09/23 08:11 Dose: 25 mg Documented By: ADRIENNE Sodium Chloride (0.9 % Sodium Chloride Flush 3 Ml Syringe) 3 ml IVFLUSH QSHIFT [facility] Last Admin: 09/09/23 08:11 Dose: 3 ml Documented By: ADRIENNE Tiotropium [place] (Tiotropium [place] 2.5 Mcg 1 Puff/2.5 Mcg Mist.Inhal) 2 puff INHALE RDAILY JOEL Last Admin: 09/09/23 08:08 Dose: 2 puff Documented By: ADRIENNE Labs 09/08/23 04:59 09/09/23 06:10 Labs: Laboratory Results - last 24 hr 09/08/23 09/08/23 09/08/23 15:54 19:50 20:08 Hold Purple Top PT INR Anion Gap 23 H Estim Creat Clear Calc 6.9 Estimated GFR 6 POC Glucose 165 H 147 H Random Glucose 143 H Calcium 5.9 L* D Magnesium 1.9 09/09/23 09/09/23 06:10 07:48 Hold Purple Top SEE NOTE PT 14.2 H INR 1.2 H Anion Gap 19 Estim Creat Clear Calc 7.1 Estimated GFR 7 POC Glucose 94 Random Glucose 109 Calcium 5.8 L* Magnesium Assessment and Plan (1) Hypocalcemia: Status: Acute Plan Sarah So is a 68 y/o woman admitted withabd pain Abdominal discomfort, nausea and vomiting secondary to uremia. Symptomatic therapy with Zofran. Nephrology consult Continue to hold furosemide. Gentle IV fluids. Avoid nephrotoxic agents. plan for permacath and dialysis today as per nephrology Severe hypocalcemia, hypophosphatemia and elevated PTH likely secondary hyperparathyroidism. Replete calcium and continue phosphate binders. lipase 59, vitamin-D 23.8 and ionized calcium-pending . Continue to monitor electrolytes. on calcitrol 1 mcg daily Prolonged QT secondary to hypocalcemia. Telemetry. Continue calcium supplementation. Continue to monitor QT. Metabolic acidosis secondary to renal failure. Gentle IV fluids. Continue bicarb. Continue to monitor bicarb and pH. Type 2 diabetes mellitus. Blood glucose monitoring before meals and bedtime. Insulin sliding scale for now. Diabetic diet. Hyperlipidemia. Continue statin. Chronic anemia due to CKD. Continue iron supplementation orally. Might need Procrit. check transferrin level. Hypothyroidism s/p thyroidectomy (hx of thyroid CA -unknown type). Last TSH is normal (2 days ago). Continue levothyroxine. Hypertension. Continue hydralazine and amlodipine. CAD. Continue Isordil, statin and aspirin. HFrEF. EF 35-40%. No decompensation at this time. COPD -not home oxygen. No acute symptoms. Continue inhalers. PAD s/p SFA plasty and aortogram. Continue statin and Plavix. DVT prophylaxis: Heparin Attending Dr. Monzon Code status: Full continue hosptial stay for uremia treatment with hemodialysis. Patient also cardiac monitoring, VS checks and close monitoring of electrolytes. Quality Stroke Does the patient have a stroke diagnosis?: No VTE Prior VTE?: No VTE Risk Level:: Medical - moderate - high VTE Device Contraindication: Treatment Not Indicated VTE Drug Contraindication: N/A - Med Ordered
[2023-09-09 12:30] LABS: Glucose, Whole Blood 137 mg/dL (60-115)
[2023-09-09] MEDS: ondansetron HCL 4 MG/2 ML VIAL IVPUSH (12:56)
--- NOTE | 2023-09-09 13:20 | P.CDIM_ITS ---
PROVIDER RESPONSE TEXT: To clarify, the appropriate diagnosis supported by the clinical indicators: Acute QUERY TEXT: PHYSICIAN'S DOCUMENTATION REQUEST Date of Query: 09/09/2023 11:32 AM EDT Patient Name: Sarah Jones Admit Date: 09/08/2023 Dear Ladan Jackson, A review of the medical record indicates additional documentation may be needed. Please review below and update the documentation accordingly. Clinical Indicators: Per Hospitalist Progress Note 09/08/23: Metabolic acidosis secondary to renal failure. Gentle IV fluids. Continue bicarb. Continue to monitor bicarb and pH. Clarify which of the following accurately represents the acuity of the Metabolic acidosis . Possible options might include: Acute Acute on chronic Compensated Chronic stable condition Remission Other (explain) Clinically unable to determine (explain) Thank you, Joyce Haynes RN Use of terms such as suspected, likely, concern for, or probable (associated with a specific diagnosi s that is being evaluated, monitored, or treated as if it exists) are acceptable and can be coded in the inpatient se tting, when documented at the time of discharge. Please use your independent medical judgment in providing your response. THIS QUERY IS PART OF THE PERMANENT MEDICAL RECORD
[2023-09-09] MEDS: Aspirin Enteric Coated 81 MG TABLET.DR PO (13:22)
--- NOTE | 2023-09-09 13:24 | P.CONNP_ITS ---
History of Present Illness Reason for Consult Consult date: 09/09/23 Chief Complaint Chief complaint: Uremia History of Present Illness Narrative: 68-year-old woman with advanced renal failure came to ER with nausea and vomiting for few days. She was found to have worsening renal function with severe hypocalcemia. She has been hospitalized in received IV fluids. There has been marginal improvement in creatinine with improvement in symptoms. Serum calcium has been supplemented. Consult has been requested for management of CKD Review of Systems Constitutional: Denies fever(s) and Denies weight loss Cardiovascular: Denies chest pain Respiratory: Denies cough and Denies hemoptysis Gastrointestinal: Denies abdominal pain and Denies diarrhea Musculoskeletal: Denies back pain Denies focal weakness PMFSH Past Medical History Medical History CHF exacerbation Anemia CKD (chronic kidney disease) stage 5, GFR less than 15 ml/min Hypocalcemia Nicotine dependence, cigarettes, uncomplicated Atherosclerotic cardiovascular disease Thyroid cancer (~2008) 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) Hypothyroidism associated with surgical procedure (~2008) Uncontrolled type 2 diabetes mellitus with hyperglycemia (~1986) Pneumonitis ARDS (adult respiratory distress syndrome) Neuropathy Asthma-COPD overlap syndrome Anemia HTN (hypertension) Hypercholesteremia Family History Family History Mother Hypertension Diabetes Father AA (alcohol abuse) Surgical History Surgical History History of thyroidectomy History of back surgery History of 2 sections History of angioplasty History of amputation of left great toe Social History Social History Household Members: Family Housing: Apartment 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) Alcohol intake: never 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 Tobacco Use Status: Former Tobacco user Years Smoked: 45 Advance Directives Date on File: 09/13/20 service: No Current occupational status: disabled Meds Allergies Allergy/AdvReac Type Severity Reaction Status Date / Time ALLYSSA Inhibitors Allergy Mild COUGH Verified 09/05/23 13:55 [ALLYSSA INHIBITORS] cilostazol [CILOSTAZOL] Allergy Mild COUGH Verified 09/07/23 20:53 Active Medications: Current Medications Acetaminophen (Acetaminophen 325 Mg Tablet) 650 mg PO Q6H PRN PRN Reason: Pain, Mild (Pain Scale 1-3), fever or headache Aspirin (Aspirin Enteric Coated 81 Mg Tablet.) 81 mg PO DAILY@1200 [facility] Last Admin: 09/09/23 13:22 Dose: 81 mg Atorvastatin Calcium (Atorvastatin Calcium 80 Mg Tablet) 80 mg PO BEDTIME [facility] Calcitriol (Calcitriol 0.25 Mcg Capsule) 1 mcg PO DAILY [facility] Last Admin: 09/09/23 08:11 Dose: 1 mcg Calcium Carbonate (Calcium Carbonate 750 Mg Tab.Chew) 750 mg PO TID [facility] Last Admin: 09/09/23 08:11 Dose: 750 mg Carvedilol (Carvedilol 12.5 Mg Tablet) 12.5 mg PO BID [facility]; Protocol Last Admin: 09/09/23 08:11 Dose: 12.5 mg Ferrous Sulfate (Ferrous Sulfate 324 Mg Tablet.) 324 mg PO DAILY [facility] Last Admin: 09/09/23 08:11 Dose: 324 mg Fluticasone/Vilanterol (Fluticasone/Vilanterol 200/25 Blst.W.Dev) 1 puff INHALE RDAILY [facility] Last Admin: 09/09/23 08:07 Dose: 1 puff Glucose (Glucose Gel 15 Gm Gel..Gram.) 15 gm PO Q15M PRN; Protocol PRN Reason: per Hypoglycemia Standing Ord. Heparin Sodium (Porcine) (Heparin Sodium,Porcine 5,000 Unit/Ml Vial) 5,000 unit SUBCUT Q8H [facility] Last Admin: 09/09/23 06:14 Dose: Not Given Hydralazine HCl (Hydralazine Hcl 10 Mg Tablet) 10 mg PO TID [facility]; Protocol Last Admin: 09/09/23 08:10 Dose: 10 mg Dextrose (D10) 250 mls @ 750 mls/hr IV Q15M PRN; Protocol PRN Reason: per Hypoglycemia Standing Ord. Insulin Human Lispro (Insulin Lispro 100 Unit/Ml 3 Ml Vial) 0 unit SUBCUT QIDACHS [facility]; Protocol Last Admin: 09/09/23 13:20 Dose: Not Given Isosorbide Mononitrate (Isosorbide Mononitrate 30 Mg Tab.Er.24h) 30 mg PO DAILY [facility]; Protocol Last Admin: 09/09/23 08:11 Dose: 30 mg Levothyroxine Sodium (Levothyroxine Sodium 150 Mcg Tablet) 150 mcg PO DAILY@0630 [facility] Last Admin: 09/09/23 06:19 Dose: 150 mcg Melatonin (Melatonin 3 Mg Tablet) 6 mg PO BEDTIME PRN PRN Reason: Insomnia Last Admin: 09/08/23 22:37 Dose: 6 mg Montelukast Sodium (Montelukast Sodium 10 Mg Tablet) 10 mg PO BEDTIME [facility] Ondansetron HCl (Ondansetron Hcl 4 Mg/2 Ml Vial) 4 mg IVPUSH Q4H PRN PRN Reason: Nausea and Vomiting Last Admin: 09/09/23 12:56 Dose: 4 mg Sertraline HCl (Sertraline Hcl 25 Mg Tablet) 25 mg PO DAILY [facility] Last Admin: 09/09/23 08:11 Dose: 25 mg Sodium Chloride (0.9 % Sodium Chloride Flush 3 Ml Syringe) 3 ml IVFLUSH QSHIFT [facility] Last Admin: 09/09/23 08:11 Dose: 3 ml Tiotropium [place] (Tiotropium [place] 2.5 Mcg 1 Puff/2.5 Mcg Mist.Inhal) 2 puff INHALE RDAILY [facility] Last Admin: 09/09/23 08:08 Dose: 2 puff Home Medications ?Medication ?Instructions ?Recorded ?Confirmed ?Last Taken ?Type cilostazol 100 mg tablet 100 mg PO BID@1200,2100 05/17/20 09/08/23 08/17/20 20:00 History ferrous sulfate 325 mg (65 mg 1 tab PO QAM 05/17/20 09/08/23 08/17/20 08:30 History iron) tablet blood sugar diagnostic (FreeStyle #10 ea 05/30/21 09/05/23 Unknown History Lite Strips) insulin aspart U-100 100 unit/mL 5 unit subcut TIDAC 05/30/21 09/08/23 Unknown History (3 mL) subcutaneous pen (Novolog FlexPen U-100 Insulin aspart) lancets 33 gauge (TRUEplus Lancets) #100 ea 05/30/21 09/05/23 Unknown History cholecalciferol (vitamin D3) 50 50 mcg PO DAILY 04/24/22 09/08/23 Unknown History mcg (2,000 unit) tablet dapagliflozin propanediol 5 mg 5 mg PO DAILY 04/24/22 09/08/23 Unknown History tablet (Farxiga) linagliptin 5 mg tablet (Tradjenta) 5 mg PO DAILY@1200 04/24/22 09/08/23 Unknown History potassium chloride 20 mEq 20 meq PO DAILY@1800 04/24/22 09/08/23 Unknown History tablet,extended release(part/cryst) pen needle, diabetic 32 gauge x #50 ea 05/03/22 09/05/23 Unknown History (Pentips) aspirin 81 mg tablet,delayed 81 mg PO DAILY@1200 06/20/22 09/08/23 Unknown History release atorvastatin 80 mg tablet 80 mg PO BEDTIME 06/20/22 09/08/23 Unknown History montelukast 10 mg tablet 10 mg PO BEDTIME 06/20/22 09/08/23 Unknown History sertraline 25 mg tablet 25 mg PO DAILY 06/20/22 09/08/23 Unknown History levothyroxine 150 mcg tablet 150 mcg PO DAILY 03/21/23 09/08/23 Unknown History budesonide-formoterol HFA 160 2 puff inhalation BID 07/23/23 09/08/23 Unknown History mcg-4.5 mcg/actuation aerosol inhaler calcium carbonate (Calcium Antacid) 200 mg PO TID@1200,1800,2100 07/23/23 09/08/23 Unknown History cetirizine 5 mg tablet 5 mg PO DAILY PRN allergies 07/23/23 09/08/23 Unknown History insulin degludec 100 unit/mL (3 13 unit subcut DAILY Hyperglycemia 07/23/23 09/08/23 Unknown History mL) subcutaneous pen (Tresiba FlexTouch U-100 insulin) umeclidinium 62.5 mcg/actuation 1 inh inhalation QAM 07/23/23 09/08/23 Unknown History blister powder for inhalation (Incruse Ellipta) Physical Exam Vital Signs: Last Vital Signs Temp 98.4 F 09/09/23 08:01 Pulse 65 09/09/23 08:01 Resp 16 09/09/23 08:01 BP 144/69 H 09/09/23 08:01 Pulse Ox 95 09/09/23 08:01 O2 Del Method Room Air 09/09/23 08:01 BMI result Body Mass Index 27.2 Const General: comfortable; No acute distress Orientation/consciousness: patient oriented x3 Eyes General: appearance normal, both eyes and all related structures Visual Delgado: normal visual delgado by confrontation Neck Neck: Yes supple and Yes no JVD Resp Effort & Inspection: normal respiratory effort and respiratory effort not decreased Auscultation: rhonchi Cardio Palpation: no palpable S3 and no palpable S4 Heart sounds: no rubs GI Inspection: Yes normal to inspection Palpation (GI): Soft to palpation Percussion: Yes normal to percussion Auscultation: normal bowel sounds General: Yes no CVA tenderness Back/Spine/Pelvis Back: no CVA tenderness Skin General skin exam: no petechiae and no purpura Neuro General: patient oriented x3 and no focal motor deficits Extrem General: No clubbing and No edema Results Lab Results 09/08/23 04:59 09/09/23 06:10 Lab results: Chemistry 09/07/23 09/08/23 09/08/23 21:35 02:57 04:59 Sodium 141 141 142 Potassium 2.9 L* D 4.1 D 3.8 Carbon Dioxide 19 L 16 L 18 L BUN 116 H 110 H 109 H Creatinine 6.98 H* 6.84 H* 6.85 H* Calcium 5.1 L* 4.9 L* 4.9 L* Phosphorus 7.9 H 7.4 H 09/08/23 09/09/23 20:08 06:10 Sodium 142 143 Potassium 4.8 D 3.6 D Carbon Dioxide 12 L 19 L BUN 101 H 98 H Creatinine 6.39 H* 6.12 H* Calcium 5.9 L* D 5.8 L* Phosphorus Hematology 09/07/23 09/08/23 21:35 04:59 WBC 7.7 8.0 Hgb 9.1 L 8.5 L Plt Count 140 L 119 L Urinalysis 09/08/23 06:26 Urine Color Yellow Urine Appearance Clear Urine pH 5.0 Ur Specific [place] 1.010 Urine Protein 30 (1+) H Urine Glucose (UA) 250 H Urine Ketones Negative Urine Blood Trace H Urine Nitrite Negative Ur Leukocyte Esterase Trace H Urine RBC 0-2 Urine WBC 0-5 Ur Squamous Epith Cells 3-5 Hyaline Casts 0-2 Assessment and Plan (1) CKD (chronic kidney disease): Status: Acute Plan Iris has CKD 5 approaching end stage renal disease. Currently she has signs and symptoms suggestive of uremia. Fluid status seems acceptable. I have discussed with her and the family at length. They are agreeable for dialysis. She will have a PermCath inserted today and I will start hemodialysis. As an outpatient she wants to have renal dialysis. She has in the process of being educated and trained for the same. I will make arrangements for insertion of PD catheter as well. Watch hemoglobin and we will administer Epogen as needed Replace calcium orally. Increased calcitriol to 1 mcg a day. Follow phosphorus and magnesium Procedures Date of Service Date of Service: 09/09/23
[2023-09-09] MEDS: Ondansetron ODT 4 MG TAB.RAPDIS TRANSLINGU (16:19)
[2023-09-09] MEDS: Heparin Sodium,Porcine 5,000 UNIT/ML VIAL 5000 UNIT SUBCUT (16:26)
[2023-09-09 17:04] LABS: Glucose, Whole Blood 123 mg/dL (60-115)
[2023-09-09] MEDS: Melatonin 3 MG TABLET 6 MG PO (20:08)
[2023-09-09] MEDS: Montelukast Sodium 10 MG TABLET PO (20:09)
[2023-09-09] MEDS: Atorvastatin Calcium 80 MG TABLET PO (20:09)
[2023-09-09] MEDS: Insulin Lispro 100 UNIT/ML 3 ML VIAL SUBCUT (20:14)
[2023-09-09 20:39] LABS: Glucose, Whole Blood 173 mg/dL (60-115)
[2023-09-10] VITALS (8 sets, daily range): BP systolic 109–167; BP diastolic 56–83; PULSE 56–68; RESP 18–20; TEMP 36.1–36.8; O2SAT 96–100
--- NOTE | 2023-09-10 | ECG_ITS ---
Test Reason : prolonged qt Blood Pressure : / mmHG Vent. Rate : 059 BPM Atrial Rate : 059 BPM P-R Int : 166 ms QRS Dur : 086 ms QT Int : 532 ms P-R-T Axes : 058 021 136 degrees QTc Int : 526 ms Sinus bradycardia T wave abnormality, consider lateral ischemia Prolonged QT Abnormal ECG When compared with ECG of 09-SEP-2023 12:53, No significant change was found Referred By: Ladan Jackson Electronically Signed By:ANTOINETTE ARNETT MD
[2023-09-10] MEDS: Heparin Sodium,Porcine 5,000 UNIT/ML VIAL 5000 UNIT SUBCUT (05:51)
[2023-09-10] MEDS: Levothyroxine Sodium 150 MCG TABLET PO (05:51)
[2023-09-10 07:25] LABS: Glucose, Whole Blood 120 mg/dL (60-115)
[2023-09-10] MEDS: carvediloL 12.5 MG TABLET PO ×2 (07:43→20:32)
[2023-09-10] MEDS: Ferrous Sulfate 324 MG TABLET.DR PO (07:43)
[2023-09-10] MEDS: Isosorbide Mononitrate 30 MG TAB.ER.24H PO (07:43)
[2023-09-10] MEDS: Sertraline HCL 25 MG TABLET PO (07:43)
[2023-09-10] MEDS: hydrALAZINE HCl 10 MG TABLET PO ×2 (07:43→20:32)
[2023-09-10] MEDS: Calcium Carbonate 750 MG TAB.CHEW PO ×2 (07:43→20:32)
[2023-09-10] MEDS: Acetaminophen 325 MG TABLET 650 MG PO (07:45)
[2023-09-10 08:25] LABS: Anion Gap 15 (12-20); Blood Urea Nitrogen 48 mg/dL (9-16); Calcium 7.3 mg/dL (8.4-10.2); Carbon Dioxide 20 mmol/L (22-29); Chloride 109 mmol/L (96-108); Creatinine Clr Calc Pharmacy 11.6; Estimated Glomerular Filt Rate 12; Glucose Random 125 mg/dL (60-115); Potassium 3.7 mmol/L (3.3-5.1); Sodium 140 mmol/L (135-145)
[2023-09-10] MEDS: Fluticasone/Vilanterol 200/25 BLST.W.DEV 1 PUFF INHALE (08:26)
[2023-09-10] MEDS: Tiotropium Bromide 2.5 mcg 1 PUFF/2.5 MCG MIST.INHAL 2 PUFF INHALE (08:26)
[2023-09-10 08:42] LABS: HBc Num1 0.13 S/CO (0.00-0.79); HBsAGNum1 0.32 S/CO (0.00-0.99); Hepatitis B Core Antibody Nonreactive (Nonreactive); Hepatitis B Surface Antigen Negative (Negative); ~Hepatitis B Surface Antibody NONREACTIVE (Nonreactive)
[2023-09-10] MEDS: calcitrioL 0.25 MCG CAPSULE 1 MCG PO (08:48)
[2023-09-10] MEDS: 0.9 % Sodium Chloride Flush 3 ML SYRINGE IVFLUSH ×2 (08:50→20:33)
--- NOTE | 2023-09-10 09:36 | HO.PM.IMPN ---
Subjective Subjective Date of Service: 09/10/23 Review of Systems follow up abdominal pain feeling better no nausea or vomiting s/p permacath and dialysis Physical Exam Vital Signs: Vital Signs: Last Vital Signs Temp 97.2 F 09/10/23 07:38 Pulse 59 09/10/23 08:29 Resp 18 09/10/23 08:29 BP 142/67 H 09/10/23 07:43 Pulse Ox 99 09/10/23 07:38 O2 Del Method Room Air 09/10/23 07:38 BMI result Body Mass Index 27.2 Appearing in no acute distress lung sounds are clear to auscultation heart regular rate rhythm, clear S1, S2 positive bowel sounds, abdomen is soft, nontender neuro patient is alert x3, no focal deficits Right great toe ulcer Objective Data Active Medications Acetaminophen (Acetaminophen 325 Mg Tablet) 650 mg PO Q6H PRN PRN Reason: Pain, Mild (Pain Scale 1-3), fever or headache Last Admin: 09/10/23 07:45 Dose: 650 mg Documented By: BEN Aspirin (Aspirin Enteric Coated 81 Mg Tablet.) 81 mg PO DAILY@1200 [facility] Last Admin: 09/09/23 13:22 Dose: 81 mg Documented By: ADRIENNE Atorvastatin Calcium (Atorvastatin Calcium 80 Mg Tablet) 80 mg PO BEDTIME [facility] Last Admin: 09/09/23 20:09 Dose: 80 mg Documented By: DEVANTE Calcitriol (Calcitriol 0.25 Mcg Capsule) 1 mcg PO DAILY [facility] Last Admin: 09/10/23 08:48 Dose: 1 mcg Documented By: BEN Calcium Carbonate (Calcium Carbonate 750 Mg Tab.Chew) 750 mg PO TID [facility] Last Admin: 09/10/23 07:43 Dose: 750 mg Documented By: BEN Carvedilol (Carvedilol 12.5 Mg Tablet) 12.5 mg PO BID [facility]; Protocol Last Admin: 09/10/23 07:43 Dose: 12.5 mg Documented By: BEN Ferrous Sulfate (Ferrous Sulfate 324 Mg Tablet.) 324 mg PO DAILY [facility] Last Admin: 09/10/23 07:43 Dose: 324 mg Documented By: BEN Fluticasone/Vilanterol (Fluticasone/Vilanterol 200/25 Blst.W.Dev) 1 puff INHALE RDAILY [facility] Last Admin: 09/10/23 08:26 Dose: 1 puff Documented By: SHON Glucose (Glucose Gel 15 Gm Gel..Gram.) 15 gm PO Q15M PRN; Protocol PRN Reason: per Hypoglycemia Standing Ord. Heparin Sodium (Porcine) (Heparin Sodium,Porcine 5,000 Unit/Ml Vial) 5,000 unit SUBCUT Q8H [facility] Last Admin: 09/10/23 05:51 Dose: 5,000 unit Documented By: DEVANTE Hydralazine HCl (Hydralazine Hcl 10 Mg Tablet) 10 mg PO TID [facility]; Protocol Last Admin: 09/10/23 07:43 Dose: 10 mg Documented By: BEN Dextrose (D10) 250 mls @ 750 mls/hr IV Q15M PRN; Protocol PRN Reason: per Hypoglycemia Standing Ord. Insulin Human Lispro (Insulin Lispro 100 Unit/Ml 3 Ml Vial) 0 unit SUBCUT QIDACHS [facility]; Protocol Last Admin: 09/10/23 07:45 Dose: Not Given Documented By: BEN Non-Admin Reason: No Insulin Coverage Isosorbide Mononitrate (Isosorbide Mononitrate 30 Mg Tab.Er.24h) 30 mg PO DAILY [facility]; Protocol Last Admin: 09/10/23 07:43 Dose: 30 mg Documented By: BEN Levothyroxine Sodium (Levothyroxine Sodium 150 Mcg Tablet) 150 mcg PO DAILY@0630 [facility] Last Admin: 09/10/23 05:51 Dose: 150 mcg Documented By: DEVANTE Melatonin (Melatonin 3 Mg Tablet) 6 mg PO BEDTIME PRN PRN Reason: Insomnia Last Admin: 09/09/23 20:08 Dose: 6 mg Documented By: DEVANTE Montelukast Sodium (Montelukast Sodium 10 Mg Tablet) 10 mg PO BEDTIME [facility] Last Admin: 09/09/23 20:09 Dose: 10 mg Documented By: DEVANTE Ondansetron HCl (Ondansetron Hcl 4 Mg/2 Ml Vial) 4 mg IVPUSH Q4H PRN PRN Reason: Nausea and Vomiting Last Admin: 09/09/23 12:56 Dose: 4 mg Documented By: ADRIENNE Sertraline HCl (Sertraline Hcl 25 Mg Tablet) 25 mg PO DAILY [facility] Last Admin: 09/10/23 07:43 Dose: 25 mg Documented By: BEN Sodium Chloride (0.9 % Sodium Chloride Flush 3 Ml Syringe) 3 ml IVFLUSH QSHIFT [facility] Last Admin: 09/10/23 08:50 Dose: 3 ml Documented By: BEN Tiotropium [place] (Tiotropium [place] 2.5 Mcg 1 Puff/2.5 Mcg Mist.Inhal) 2 puff INHALE RDAILY [facility] Last Admin: 09/10/23 08:26 Dose: 2 puff Documented By: SHON Labs 09/08/23 04:59 09/10/23 07:50 Labs: Laboratory Results - last 24 hr 09/09/23 09/09/23 09/09/23 12:26 13:21 16:37 Anion Gap Estim Creat Clear Calc Estimated GFR POC Glucose 137 H 123 H Random Glucose Calcium Hep Bs Antigen Negative Hep Bs Antibody NONREACTIVE Hep B Core Total Ab Nonreactive 09/09/23 09/10/23 09/10/23 20:04 07:21 07:50 Anion Gap 15 Estim Creat Clear Calc 11.6 Estimated GFR 12 POC Glucose 173 H 120 H Random Glucose 125 H Calcium 7.3 L D Hep Bs Antigen Hep Bs Antibody Hep B Core Total Ab Assessment and Plan (1) Hypocalcemia: Status: Acute Plan Sarah So is a 68 y/o woman admitted with abd pain Abdominal discomfort, nausea and vomiting secondary to uremia, MARY KATE on CKD 4/5. Continue to hold furosemide. s/p IV fluids. Avoid nephrotoxic agents. s/p permacath and dialysis 09/09/23 as per nephrology Plan for PD catheter as per nephrology Severe hypocalcemia, hypophosphatemia and elevated PTH likely secondary hyperparathyroidism. Replete calcium and continue phosphate binders. lipase 59, vitamin-D 23.8 and ionized calcium-pending . on calcitrol 1 mcg daily Right great toe wound Toe xray>neg for osteomyelitis but possible small foreign body, general surgery consultation vascular surgery consultation> plan for likely vascular intervention outpatient as pt is just starting dialysis wound care nurse consult Prolonged QT secondary to hypocalcemia. Telemetry. Continue calcium supplementation. Continue to monitor QT. Metabolic acidosis secondary to renal failure. s/p IV fluids. Continue bicarb. Continue to monitor bicarb and pH. Type 2 diabetes mellitus. Blood glucose monitoring before meals and bedtime. Insulin sliding scale for now. Diabetic diet. Hyperlipidemia. Continue statin. Chronic anemia due to CKD. Continue iron supplementation orally. transferrin level pending Hypothyroidism s/p thyroidectomy (hx of thyroid CA -unknown type). Last TSH is normal (2 days ago). Continue levothyroxine. Hypertension. Continue hydralazine CAD. Continue Isordil, statin and aspirin. HFrEF. EF 35-40%. No decompensation at this time. COPD -not home oxygen. No acute symptoms. Continue inhalers. PAD s/p SFA plasty and aortogram. Continue statin and Plavix. DVT prophylaxis: Heparin Attending Dr. Monzon Code status: Full DISPO plan for PD cath placement, in the meantime nephro set up location for HD continue hosptial stay for uremia treatment with hemodialysis. Patient also cardiac monitoring, VS checks and close monitoring of electrolytes. Quality Stroke Does the patient have a stroke diagnosis?: No VTE Prior VTE?: No VTE Risk Level:: Medical - moderate - high VTE Device Contraindication: Treatment Not Indicated VTE Drug Contraindication: N/A - Med Ordered
[2023-09-10 10:38] LABS: Transferrin 133 mg/dL (188-341)
[2023-09-10 11:37] LABS: Glucose, Whole Blood 230 mg/dL (60-115)
[2023-09-10] MEDS: Aspirin Enteric Coated 81 MG TABLET.DR PO (11:48)
[2023-09-10] MEDS: Insulin Lispro 100 UNIT/ML 3 ML VIAL SUBCUT ×2 (11:49→20:32)
--- NOTE | 2023-09-10 13:42 | MHC.CM.PN ---
Addendum entered by Aide Churchill 09/10/23 15:37: Pt has senior care visits from [facility]. Original Note: CM met with pt. 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 When asked if she has daily nurse visits, she said she does not. TREVOR received a message from [facility] that they are not providing services to this pt. CM has left a message for Jennifer at [facility] to find out if pt. has VNA services.
--- NOTE | 2023-09-10 13:47 | P.CONGS_ITS ---
History of Present Illness Consult details Consult date: 09/10/23 Reason for consult: wound care Narrative: 68-year-old female with a history of peripheral vascular disease presents for evaluation regarding nonhealing right great toe ulcer. She is actually known to us from prior history of peripheral vascular disease. She has had prior left lower extremity endovascular intervention by us. She was admitted to the hospital with abdominal pain. Of note she presented to the hospital with advancement of her renal failure with nausea and vomiting. Upon workup she was noted to have nonhealing right great toe ulcer. Review of Systems 2 Review of Systems: Yes all other systems are reviewed and are negative Constitutional: Constitutional: Reports no additional constitutional complaints ENT: Reports Normal hearing present Cardiovascular: Cardiovascular: Denies chest pain, Denies chest pain at rest, Denies chest pain with activity and Denies pedal edema Respiratory: Respiratory: Denies cough Gastrointestinal: Gastrointestinal: Denies abdominal pain Musculoskeletal: Musculoskeletal: Denies abnormal gait, Denies muscle cramps and Denies radiating pain into limb Integumentary/Breasts: Skin/Breast: Denies skin ulcer and Denies wounds Neurologic: Reports Normal hearing present and Denies abnormal gait Psychiatric: Psychiatric: Reports no additional psychiatric complaints PMFSH Past Medical History Medical History CHF exacerbation Anemia CKD (chronic kidney disease) stage 5, GFR less than 15 ml/min Hypocalcemia Nicotine dependence, cigarettes, uncomplicated Atherosclerotic cardiovascular disease Thyroid cancer (~2008) 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) Hypothyroidism associated with surgical procedure (~2008) Uncontrolled type 2 diabetes mellitus with hyperglycemia (~1986) Pneumonitis ARDS (adult respiratory distress syndrome) Neuropathy Asthma-COPD overlap syndrome Anemia HTN (hypertension) Hypercholesteremia Family History Family History Mother Hypertension Diabetes Father AA (alcohol abuse) Surgical History Surgical History History of thyroidectomy History of back surgery History of 2 sections History of angioplasty History of amputation of left great toe Social History Social History Household Members: Family Housing: Apartment Do you presently have 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 or other home services: Yes ([employer]) Alcohol intake: never 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 Tobacco Use Status: Former Tobacco user Years Smoked: 45 Advance Directives Date on File: 09/13/20 service: No Current occupational status: disabled Meds Allergies Allergy/AdvReac Type Severity Reaction Status Date / Time ALLYSSA Inhibitors Allergy Mild COUGH Verified 09/05/23 13:55 [ALLYSSA INHIBITORS] cilostazol [CILOSTAZOL] Allergy Mild COUGH Verified 09/07/23 20:53 Active Medications: Current Medications Acetaminophen (Acetaminophen 325 Mg Tablet) 650 mg PO Q6H PRN PRN Reason: Pain, Mild (Pain Scale 1-3), fever or headache Last Admin: 09/10/23 07:45 Dose: 650 mg Aspirin (Aspirin Enteric Coated 81 Mg Tablet.) 81 mg PO DAILY@1200 [facility] Last Admin: 09/10/23 11:48 Dose: 81 mg Atorvastatin Calcium (Atorvastatin Calcium 80 Mg Tablet) 80 mg PO BEDTIME [facility] Last Admin: 09/09/23 20:09 Dose: 80 mg Calcitriol (Calcitriol 0.25 Mcg Capsule) 1 mcg PO DAILY [facility] Last Admin: 09/10/23 08:48 Dose: 1 mcg Calcium Carbonate (Calcium Carbonate 750 Mg Tab.Chew) 750 mg PO TID [facility] Last Admin: 09/10/23 07:43 Dose: 750 mg Carvedilol (Carvedilol 12.5 Mg Tablet) 12.5 mg PO BID [facility]; Protocol Last Admin: 09/10/23 07:43 Dose: 12.5 mg Ferrous Sulfate (Ferrous Sulfate 324 Mg Tablet.) 324 mg PO DAILY [facility] Last Admin: 09/10/23 07:43 Dose: 324 mg Fluticasone/Vilanterol (Fluticasone/Vilanterol 200/25 Blst.W.Dev) 1 puff INHALE RDAILY [facility] Last Admin: 09/10/23 08:26 Dose: 1 puff Glucose (Glucose Gel 15 Gm Gel..Gram.) 15 gm PO Q15M PRN; Protocol PRN Reason: per Hypoglycemia Standing Ord. Heparin Sodium (Porcine) (Heparin Sodium,Porcine 5,000 Unit/Ml Vial) 5,000 unit SUBCUT Q8H [facility] Last Admin: 09/10/23 05:51 Dose: 5,000 unit Hydralazine HCl (Hydralazine Hcl 10 Mg Tablet) 10 mg PO TID [facility]; Protocol Last Admin: 09/10/23 07:43 Dose: 10 mg Dextrose (D10) 250 mls @ 750 mls/hr IV Q15M PRN; Protocol PRN Reason: per Hypoglycemia Standing Ord. Insulin Human Lispro (Insulin Lispro 100 Unit/Ml 3 Ml Vial) 0 unit SUBCUT QIDACHS [facility]; Protocol Last Admin: 09/10/23 11:49 Dose: 4 unit Isosorbide Mononitrate (Isosorbide Mononitrate 30 Mg Tab.Er.24h) 30 mg PO DAILY [facility]; Protocol Last Admin: 09/10/23 07:43 Dose: 30 mg Levothyroxine Sodium (Levothyroxine Sodium 150 Mcg Tablet) 150 mcg PO DAILY@0630 [facility] Last Admin: 09/10/23 05:51 Dose: 150 mcg Melatonin (Melatonin 3 Mg Tablet) 6 mg PO BEDTIME PRN PRN Reason: Insomnia Last Admin: 09/09/23 20:08 Dose: 6 mg Montelukast Sodium (Montelukast Sodium 10 Mg Tablet) 10 mg PO BEDTIME [facility] Last Admin: 09/09/23 20:09 Dose: 10 mg Ondansetron HCl (Ondansetron Hcl 4 Mg/2 Ml Vial) 4 mg IVPUSH Q4H PRN PRN Reason: Nausea and Vomiting Last Admin: 09/09/23 12:56 Dose: 4 mg Sertraline HCl (Sertraline Hcl 25 Mg Tablet) 25 mg PO DAILY [facility] [place] Last Admin: 09/10/23 07:43 Dose: 25 mg Sodium Chloride (0.9 % Sodium Chloride Flush 3 Ml Syringe) 3 ml IVFLUSH QSHIFT [facility] [place] Last Admin: 09/10/23 08:50 Dose: 3 ml Tiotropium [place] (Tiotropium [place] 2.5 Mcg 1 Puff/2.5 Mcg Mist.Inhal) 2 puff INHALE RDAILY [facility] [place] Last Admin: 09/10/23 08:26 Dose: 2 puff Home Medications ?Medication ?Instructions ?Recorded ?Confirmed ?Last Taken ?Type cilostazol 100 mg tablet 100 mg PO BID@1200,2100 05/17/20 09/08/23 08/17/20 20:00 History ferrous sulfate 325 mg (65 mg 1 tab PO QAM 05/17/20 09/08/23 08/17/20 08:30 History iron) tablet blood sugar diagnostic (FreeStyle #10 ea 05/30/21 09/05/23 Unknown History Lite Strips) insulin aspart U-100 100 unit/mL 5 unit subcut TIDAC 05/30/21 09/08/23 Unknown History (3 mL) subcutaneous pen (Novolog FlexPen U-100 Insulin aspart) lancets 33 gauge (TRUEplus Lancets) #100 ea 05/30/21 09/05/23 Unknown History cholecalciferol (vitamin D3) 50 50 mcg PO DAILY 04/24/22 09/08/23 Unknown History mcg (2,000 unit) tablet dapagliflozin propanediol 5 mg 5 mg PO DAILY 04/24/22 09/08/23 Unknown History tablet (Farxiga) linagliptin 5 mg tablet (Tradjenta) 5 mg PO DAILY@1200 04/24/22 09/08/23 Unknown History potassium chloride 20 mEq 20 meq PO DAILY@1800 04/24/22 09/08/23 Unknown History tablet,extended release(part/cryst) pen needle, diabetic 32 gauge x #50 ea 05/03/22 09/05/23 Unknown History (Pentips) aspirin 81 mg tablet,delayed 81 mg PO DAILY@1200 06/20/22 09/08/23 Unknown History release atorvastatin 80 mg tablet 80 mg PO BEDTIME 06/20/22 09/08/23 Unknown History montelukast 10 mg tablet 10 mg PO BEDTIME 06/20/22 09/08/23 Unknown History sertraline 25 mg tablet 25 mg PO DAILY 06/20/22 09/08/23 Unknown History levothyroxine 150 mcg tablet 150 mcg PO DAILY 03/21/23 09/08/23 Unknown History budesonide-formoterol HFA 160 2 puff inhalation BID 07/23/23 09/08/23 Unknown History mcg-4.5 mcg/actuation aerosol inhaler calcium carbonate (Calcium Antacid) 200 mg PO TID@1200,1800,2100 07/23/23 09/08/23 Unknown History cetirizine 5 mg tablet 5 mg PO DAILY PRN allergies 07/23/23 09/08/23 Unknown History insulin degludec 100 unit/mL (3 13 unit subcut DAILY Hyperglycemia 07/23/23 09/08/23 Unknown History mL) subcutaneous pen (Tresiba FlexTouch U-100 insulin) umeclidinium 62.5 mcg/actuation 1 inh inhalation QAM 07/23/23 09/08/23 Unknown History blister powder for inhalation (Incruse Ellipta) Physical Exam 2 Vital Signs: Vital Signs: Last Vital Signs Temp 97.2 F 09/10/23 07:38 Pulse 59 09/10/23 08:29 Resp 18 09/10/23 08:29 BP 142/67 H 09/10/23 07:43 Pulse Ox 99 09/10/23 07:38 O2 Del Method Room Air 09/10/23 07:38 BMI result Body Mass Index 27.2 Const: General: cooperative, healthy appearing and comfortable O rientation/consciousness: oriented to person, oriented to place and oriented to time HEENT: Head: Yes normal to inspection Neck: Neck: Yes normal visual inspection Carotids: no bruits Chest: Chest palpation & inspection: normal inspection of the chest Resp: Effort & Inspection: normal respiratory effort and able to speak in complete sentences Auscultation: clear to auscultation bilaterally, no crackles, no rales, no rhonchi and no wheezes Cardio: Other: Bilateral DP signals Rate: regular rate Rhythm: regular rhythm Heart sounds: S1 normal heart sound present and S2 normal heart sound present Bruits: no carotid bruits Peripheral pulses: Peripheral pulses 2+ throughout GI: Inspection: Yes normal to inspection Skin: Other: Right great toe plantar ulceration Wounds: no wounds Hair: normal Neuro: General: oriented to person, oriented to place and oriented to time Cranial nerves: Yes CN's II-XII intact bilaterally and Yes Normal hearing present Cognition (Neuro): normal cognition Motor exam (neuro): 5/5 motor strength present throughout Extrem: Other: venous exam: No significant superficial varicosities or spider telangiectasias, minimal edema General: No clubbing, No cyanosis and No edema Psych: Appearance: grossly normal Mental Status: mental status grossly normal Speech and movement: Normal speech and movement present Results Labs 09/08/23 04:59 09/10/23 07:50 Labs: Abnormal lab results 09/08/23 09/09/23 09/09/23 Range/Units 04:59 16:37 20:04 Chloride (96-108) mmol/L Carbon Dioxide (22-29) mmol/L BUN (9-16) mg/dL Creatinine (0.5-1.4) mg/dL POC Glucose 123 H 173 H (60-115) mg/dL Random Glucose (60-115) mg/dL Calcium (8.4-10.2) mg/dL Transferrin 133 L (188-341) mg/dL 09/10/23 09/10/23 09/10/23 Range/Units 07:21 07:50 11:33 Chloride 109 H (96-108) mmol/L Carbon Dioxide 20 L (22-29) mmol/L BUN 48 H (9-16) mg/dL Creatinine 3.76 H (0.5-1.4) mg/dL POC Glucose 120 H 230 H (60-115) mg/dL Random Glucose 125 H (60-115) mg/dL Calcium 7.3 L D (8.4-10.2) mg/dL Transferrin (188-341) mg/dL BMP 09/10/23 07:50 Sodium 140 Potassium 3.7 Chloride 109 H Carbon Dioxide 20 L BUN 48 H Creatinine 3.76 H Calcium 7.3 L D Urine 09/08/23 Range/Units 06:26 Urine Color Yellow Urine Appearance Clear Urine pH 5.0 (5.0-9.0) Ur Specific [place] 1.010 (1.005-1.025) Urine Protein 30 (1+) H (Neg-Trace) mg/dL Urine Glucose (UA) 250 H (Negative) mg/dL All other labs normal. Assessment and Plan (1) PAD (peripheral artery disease): Status: Acute Plan In short patient has an element of peripheral vascular disease. We will reassess the arterial status. At the current time would hold off on any active intervention as she is going on dialysis. Once that stabilizes we may be able to be more aggressive in terms of endovascular interventions. In addition we will be available for fistula placement if required. We will continue to monitor this patient with you. Thank you for allowing us to assist in her care. Procedures Date of Service Date of Service: 09/10/23
[2023-09-10 14:36] LABS: Magnesium 1.8 mg/dL (1.6-2.6)
--- NOTE | 2023-09-10 14:55 | P.PNNP_ITS ---
Subjective Subjective Date of Service: 09/10/23 Interval history: EVENTS NOTED. HAD 1ST DIALYSIS YESTERDAY AND TOLERATED WELL. Physical Exam 2 Vital Signs: Vital Signs: Last Vital Signs Temp 97.2 F 09/10/23 07:38 Pulse 59 09/10/23 08:29 Resp 18 09/10/23 08:29 BP 142/67 H 09/10/23 07:43 Pulse Ox 99 09/10/23 07:38 O2 Del Method Room Air 09/10/23 07:38 BMI result Body Mass Index 27.2 Const: General: comfortable; No acute distress Orientation/consciousness: p atient oriented x3 Eyes: General: appearance normal, both eyes and all related structures V isual Delgado: normal visual delgado by confrontation Neck: Neck: Yes supple and Yes no JVD Resp: Effort & Inspection: normal respiratory effort and respiratory effort not decreased Auscultation: rhonchi Cardio: Palpation: no palpable S3 and no palpable S4 Heart sounds: no rubs GI: Inspection: Yes normal to inspection Palpation (GI): Soft to palpation Percussion: Yes normal to percussion Auscultation: normal bowel sounds : General: Yes no CVA tenderness Back/Spine/Pelvis: Back: no CVA tenderness Skin: General skin exam: no petechiae and no purpura Neuro: General: patient oriented x3 and no focal motor deficits Extrem: General: No clubbing and No edema Objective Data Labs 09/08/23 04:59 09/10/23 07:50 Labs: Laboratory Results - last 24 hr 09/08/23 09/09/23 09/09/23 04:59 13:21 16:37 Sodium Potassium Chloride Carbon Dioxide Anion Gap BUN Creatinine Estim Creat Clear Calc Estimated GFR POC Glucose 123 H Random Glucose Calcium Ionized Calcium 3.0 L* Magnesium Transferrin 133 L Hep Bs Antigen Negative Hep Bs Antibody NONREACTIVE Hep B Core Total Ab Nonreactive 09/09/23 09/10/23 09/10/23 20:04 07:21 07:50 Sodium 140 Potassium 3.7 Chloride 109 H Carbon Dioxide 20 L Anion Gap 15 BUN 48 H Creatinine 3.76 H Estim Creat Clear Calc 11.6 Estimated GFR 12 POC Glucose 173 H 120 H Random Glucose 125 H Calcium 7.3 L D Ionized Calcium Magnesium 1.8 Transferrin Hep Bs Antigen Hep Bs Antibody Hep B Core Total Ab 09/10/23 11:33 Sodium Potassium Chloride Carbon Dioxide Anion Gap BUN Creatinine Estim Creat Clear Calc Estimated GFR POC Glucose 230 H Random Glucose Calcium Ionized Calcium Magnesium Transferrin Hep Bs Antigen Hep Bs Antibody Hep B Core Total Ab Procedures Date of Service Date of Service: 09/10/23 Assessment & Plan Assessment and plan (1) CKD (chronic kidney disease): Status: Acute Plan Sarah has CKD 5 approaching end stage renal disease. Currently she has signs and symptoms suggestive of uremia. Fluid status seems acceptable. Second dialysis today. As an outpatient she wants to have renal dialysis. She has in the process of being educated and trained for the same. I will make arrangements for insertion of PD catheter as well. Schedule for PD catheter insertion and by Dr. Vogel Watch hemoglobin and we will administer Epogen as needed Replace calcium orally. Keep calcitriol to 1 mcg a day. Follow phosphorus and magnesium Time Spent With Patient Time: Total time managing care of this patient today ____ minutes. Progress Note: Quality Stroke Does the patient have a stroke diagnosis?: No
[2023-09-10 17:31] LABS: Glucose, Whole Blood 95 mg/dL (60-115)
[2023-09-10] MEDS: ondansetron HCL 4 MG/2 ML VIAL IVPUSH (18:17)
[2023-09-10 20:13] LABS: Glucose, Whole Blood 178 mg/dL (60-115)
[2023-09-10] MEDS: Famotidine/PF 20 MG/2 ML VIAL IVPUSH (20:31)
[2023-09-10] MEDS: Melatonin 3 MG TABLET 6 MG PO (20:31)
[2023-09-10] MEDS: Montelukast Sodium 10 MG TABLET PO (20:32)
[2023-09-10] MEDS: Atorvastatin Calcium 80 MG TABLET PO (20:45)
[2023-09-11] VITALS (10 sets, daily range): BP systolic 96–150; BP diastolic 51–72; PULSE 58–70; RESP 16–20; TEMP 36.1–36.5; O2SAT 96–100
--- NOTE | 2023-09-11 | ECG_ITS ---
Test Reason : qtc check Blood Pressure : / mmHG Vent. Rate : 058 BPM Atrial Rate : 058 BPM P-R Int : 158 ms QRS Dur : 086 ms QT Int : 508 ms P-R-T Axes : 038 019 141 degrees QTc Int : 498 ms Sinus bradycardia with Premature atrial complexes T wave abnormality, consider lateral ischemia Prolonged QT Abnormal ECG When compared with ECG of 10-SEP-2023 09:52, Premature atrial complexes are now Present Referred By: Akilah Sargent Electronically Signed By:ANTOINETTE ARNETT MD
[2023-09-11] MEDS: Levothyroxine Sodium 150 MCG TABLET PO (05:47)
[2023-09-11 06:16] LABS: Anion Gap 12 (12-20); Blood Urea Nitrogen 22 mg/dL (9-16); Calcium 7.6 mg/dL (8.4-10.2); Carbon Dioxide 21 mmol/L (22-29); Chloride 106 mmol/L (96-108); Creatinine Clr Calc Pharmacy 17.3; Estimated Glomerular Filt Rate 19; Glucose Random 116 mg/dL (60-115); Potassium 3.2 mmol/L (3.3-5.1); Sodium 136 mmol/L (135-145)
[2023-09-11 07:09] LABS: Glucose, Whole Blood 116 mg/dL (60-115)
[2023-09-11] MEDS: Tiotropium Bromide 2.5 mcg 1 PUFF/2.5 MCG MIST.INHAL 2 PUFF INHALE (07:52)
[2023-09-11] MEDS: Fluticasone/Vilanterol 200/25 BLST.W.DEV 1 PUFF INHALE (07:52)
[2023-09-11 08:25] LABS: Hematocrit 31.2 % (37.0-47.0); Magnesium 1.9 mg/dL (1.6-2.6); Mean Corpuscular HGB Conc 32.1 g/dl (31.0-35.0); Mean Corpuscular Hemoglobin 28.1 pg (27.0-33.0); Mean Corpuscular Volume 87.6 fL (80.0-98.0); Mean Platelet Volume 11.5 fL (9.4-12.3); Phosphorus 4.5 mg/dL (2.7-4.5); Platelet Count 112 X10*3/uL (160-400); Red Blood Count 3.56 X10*6/uL (4.20-5.50); Red Cell Distribution Width 15.5 % (11.0-16.0); White Blood Count 5.8 X10*3/uL (4.8-10.8)
--- NOTE | 2023-09-11 08:58 | P.CONGS_ITS ---
History of Present Illness Consult details Consult date: 09/11/23 Requesting physician: Akilah Sargent Narrative: 68-year-old female patient presenting with a right great toe ulceration. Workup with x-ray of the toes revealed a small foreign body fragment presumably within the ulcer. Bone appeared normal without evidence of osteomyelitis. The patient's past medical history is significant for advanced chronic kidney disease, hypothyroidism status post thyroidectomy for thyroid cancer, hypertension, hypercholesterolemia, COPD and CHF. She was admitted with upper abdominal pain associated with nausea and vomiting. Surgical consultation was requested for management of the toe ulcer. She was previously evaluated by Dr. Butler from vascular surgery. Admitting laboratories revealed a normal WBC. Review of Systems 2 Review of Systems: Yes all other systems are reviewed and are negative PMFSH Past Medical History Medical History CHF exacerbation Anemia CKD (chronic kidney disease) stage 5, GFR less than 15 ml/min Hypocalcemia Nicotine dependence, cigarettes, uncomplicated Atherosclerotic cardiovascular disease Thyroid cancer (~2008) 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) Hypothyroidism associated with surgical procedure (~2008) Uncontrolled type 2 diabetes mellitus with hyperglycemia (~1986) Pneumonitis ARDS (adult respiratory distress syndrome) Neuropathy Asthma-COPD overlap syndrome Anemia HTN (hypertension) Hypercholesteremia Family History Family History Mother Hypertension Diabetes Father AA (alcohol abuse) Surgical History Surgical History History of thyroidectomy History of back surgery History of 2 sections History of angioplasty History of amputation of left great toe Social History Social History Household Members: Family Housing: Apartment Do you presently have 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) Alcohol intake: never 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 Tobacco Use Status: Former Tobacco user Years Smoked: 45 Advance Directives Date on File: 09/13/20 service: No Current occupational status: disabled Meds Allergies Allergy/AdvReac Type Severity Reaction Status Date / Time ALLYSSA Inhibitors Allergy Mild COUGH Verified 09/05/23 13:55 [ALLYSSA INHIBITORS] cilostazol [CILOSTAZOL] Allergy Mild COUGH Verified 09/07/23 20:53 Active Medications: Current Medications Acetaminophen (Acetaminophen 325 Mg Tablet) 650 mg PO Q6H PRN PRN Reason: Pain, Mild (Pain Scale 1-3), fever or headache Last Admin: 09/10/23 07:45 Dose: 650 mg Aspirin (Aspirin Enteric Coated 81 Mg Tablet.) 81 mg PO DAILY@1200 [facility] Last Admin: 09/10/23 11:48 Dose: 81 mg Atorvastatin Calcium (Atorvastatin Calcium 80 Mg Tablet) 80 mg PO BEDTIME [facility] Last Admin: 09/10/23 20:45 Dose: 80 mg Calcitriol (Calcitriol 0.25 Mcg Capsule) 1 mcg PO DAILY [facility] Last Admin: 09/10/23 08:48 Dose: 1 mcg Calcium Carbonate (Calcium Carbonate 750 Mg Tab.Chew) 750 mg PO TID [facility] Last Admin: 09/10/23 20:32 Dose: 750 mg Carvedilol (Carvedilol 12.5 Mg Tablet) 12.5 mg PO BID [facility]; Protocol Last Admin: 09/10/23 20:32 Dose: 12.5 mg Famotidine (Famotidine/Pf 20 Mg/2 Ml Vial) 20 mg IVPUSH BID [facility] Last Admin: 09/10/23 20:31 Dose: 20 mg Ferrous Sulfate (Ferrous Sulfate 324 Mg Tablet.) 324 mg PO DAILY [facility] Last Admin: 09/10/23 07:43 Dose: 324 mg Fluticasone/Vilanterol (Fluticasone/Vilanterol 200/25 Blst.W.Dev) 1 puff INHALE RDAILY [facility] Last Admin: 09/11/23 07:52 Dose: 1 puff Glucose (Glucose Gel 15 Gm Gel..Gram.) 15 gm PO Q15M PRN; Protocol PRN Reason: per Hypoglycemia Standing Ord. Heparin Sodium (Porcine) (Heparin Sodium,Porcine 5,000 Unit/Ml Vial) 5,000 unit SUBCUT Q8H [facility] Last Admin: 09/11/23 05:47 Dose: Not Given Hydralazine HCl (Hydralazine Hcl 10 Mg Tablet) 10 mg PO TID [facility]; Protocol Last Admin: 09/10/23 20:32 Dose: 10 mg Dextrose (D10) 250 mls @ 750 mls/hr IV Q15M PRN; Protocol PRN Reason: per Hypoglycemia Standing Ord. Insulin Human Lispro (Insulin Lispro 100 Unit/Ml 3 Ml Vial) 0 unit SUBCUT QIDACHS [facility]; Protocol Last Admin: 09/11/23 07:12 Dose: Not Given Isosorbide Mononitrate (Isosorbide Mononitrate 30 Mg Tab.Er.24h) 30 mg PO DAILY [facility]; Protocol Last Admin: 09/10/23 07:43 Dose: 30 mg Levothyroxine Sodium (Levothyroxine Sodium 150 Mcg Tablet) 150 mcg PO DAILY@0630 [facility] Last Admin: 09/11/23 05:47 Dose: 150 mcg Melatonin (Melatonin 3 Mg Tablet) 6 mg PO BEDTIME PRN PRN Reason: Insomnia Last Admin: 09/10/23 20:31 Dose: 6 mg Montelukast Sodium (Montelukast Sodium 10 Mg Tablet) 10 mg PO BEDTIME [facility] Last Admin: 09/10/23 20:32 Dose: 10 mg Ondansetron HCl (Ondansetron Hcl 4 Mg/2 Ml Vial) 4 mg IVPUSH Q4H PRN PRN Reason: Nausea and Vomiting Last Admin: 09/10/23 18:17 Dose: 4 mg Sertraline HCl (Sertraline Hcl 25 Mg Tablet) 25 mg PO DAILY [facility] Last Admin: 09/10/23 07:43 Dose: 25 mg Sodium Chloride (0.9 % Sodium Chloride Flush 3 Ml Syringe) 3 ml IVFLUSH QSHIFT [facility] Last Admin: 09/10/23 20:33 Dose: 3 ml Tiotropium [place] (Tiotropium [place] 2.5 Mcg 1 Puff/2.5 Mcg Mist.Inhal) 2 puff INHALE RDAILY [facility] Last Admin: 09/11/23 07:52 Dose: 2 puff Home Medications ?Medication ?Instructions ?Recorded ?Confirmed ?Last Taken ?Type cilostazol 100 mg tablet 100 mg PO BID@1200,2100 05/17/20 09/08/23 08/17/20 20:00 History ferrous sulfate 325 mg (65 mg 1 tab PO QAM 05/17/20 09/08/23 08/17/20 08:30 History iron) tablet blood sugar diagnostic (FreeStyle #10 ea 05/30/21 09/05/23 Unknown History Lite Strips) insulin aspart U-100 100 unit/mL 5 unit subcut TIDAC 05/30/21 09/08/23 Unknown History (3 mL) subcutaneous pen (Novolog FlexPen U-100 Insulin aspart) lancets 33 gauge (TRUEplus Lancets) #100 ea 05/30/21 09/05/23 Unknown History cholecalciferol (vitamin D3) 50 50 mcg PO DAILY 04/24/22 09/08/23 Unknown History mcg (2,000 unit) tablet dapagliflozin propanediol 5 mg 5 mg PO DAILY 04/24/22 09/08/23 Unknown History tablet (Farxiga) linagliptin 5 mg tablet (Tradjenta) 5 mg PO DAILY@1200 04/24/22 09/08/23 Unknown History potassium chloride 20 mEq 20 meq PO DAILY@1800 04/24/22 09/08/23 Unknown History tablet,extended release(part/cryst) pen needle, diabetic 32 gauge x #50 ea 05/03/22 09/05/23 Unknown History (Pentips) aspirin 81 mg tablet,delayed 81 mg PO DAILY@1200 06/20/22 09/08/23 Unknown History release atorvastatin 80 mg tablet 80 mg PO BEDTIME 06/20/22 09/08/23 Unknown History montelukast 10 mg tablet 10 mg PO BEDTIME 06/20/22 09/08/23 Unknown History sertraline 25 mg tablet 25 mg PO DAILY 06/20/22 09/08/23 Unknown History levothyroxine 150 mcg tablet 150 mcg PO DAILY 03/21/23 09/08/23 Unknown History budesonide-formoterol HFA 160 2 puff inhalation BID 07/23/23 09/08/23 Unknown History mcg-4.5 mcg/actuation aerosol inhaler calcium carbonate (Calcium Antacid) 200 mg PO TID@1200,1800,2100 07/23/23 09/08/23 Unknown History cetirizine 5 mg tablet 5 mg PO DAILY PRN allergies 07/23/23 09/08/23 Unknown History insulin degludec 100 unit/mL (3 13 unit subcut DAILY Hyperglycemia 07/23/23 09/08/23 Unknown History mL) subcutaneous pen (Tresiba FlexTouch U-100 insulin) umeclidinium 62.5 mcg/actuation 1 inh inhalation QAM 07/23/23 09/08/23 Unknown History blister powder for inhalation (Incruse Ellipta) Physical Exam 2 Vital Signs: Vital Signs: Last Vital Signs Temp 97.3 F 09/11/23 07:50 Pulse 58 09/11/23 07:53 Resp 16 09/11/23 07:53 BP 149/72 H 09/11/23 07:50 Pulse Ox 96 09/11/23 07:50 O2 Del Method Room Air 09/11/23 07:50 BMI result Body Mass Index 27.2 Const: General: cooperative and no acute distress Nutritional Appearance: w ell nourished Orientation/consciousness: patient oriented x3 Limitations: no limitations HEENT: Head: Yes normocephalic and Yes atraumatic Ears: hearing grossly normal bilaterally Resp: Effort & Inspection: normal respiratory effort, no audible wheezes, no cough and no respiratory distress Cardio: Jugular venous distension: no JVD GI: Inspection: Yes normal to inspection Skin: Other: Warm, dry, no rash Neuro: General: patient oriented x3 Extrem: Other: Right great toe with a 1 cm ulcer located on the plantar surface medially at the distal phalanx. Gentle probing of the wound revealed a small pocket but no palpable foreign body could be identified. Wound was dressed with a sterile bandage. General: Yes no clubbing, cyanosis or edema Ankle/foot/toe images: 1. Site of ulceration right great toe Results Labs 09/11/23 05:42 09/11/23 05:42 Labs: Abnormal lab results 09/08/23 09/10/23 09/10/23 Range/Units 04:59 11:33 20:09 RBC (4.20-5.50) X10*6/uL Hgb (12.0-16.0) g/dl Hct (37.0-47.0) % Plt Count (160-400) X10*3/uL Potassium (3.3-5.1) mmol/L Carbon Dioxide (22-29) mmol/L BUN (9-16) mg/dL Creatinine (0.5-1.4) mg/dL POC Glucose 230 H 178 H (60-115) mg/dL Random Glucose (60-115) mg/dL Calcium (8.4-10.2) mg/dL Ionized Calcium 3.0 L* (4.7-5.5) mg/dL Transferrin 133 L (188-341) mg/dL 09/11/23 09/11/23 Range/Units 05:42 07:01 RBC 3.56 L (4.20-5.50) X10*6/uL Hgb 10.0 L (12.0-16.0) g/dl Hct 31.2 L (37.0-47.0) % Plt Count 112 L (160-400) X10*3/uL Potassium 3.2 L (3.3-5.1) mmol/L Carbon Dioxide 21 L (22-29) mmol/L BUN 22 H (9-16) mg/dL Creatinine 2.55 H (0.5-1.4) mg/dL POC Glucose 116 H (60-115) mg/dL Random Glucose 116 H (60-115) mg/dL Calcium 7.6 L (8.4-10.2) mg/dL Ionized Calcium (4.7-5.5) mg/dL Transferrin (188-341) mg/dL Short CBC 09/11/23 Range/Units 05:42 WBC 5.8 (4.8-10.8) X10*3/uL Hgb 10.0 L (12.0-16.0) g/dl Hct 31.2 L (37.0-47.0) % Plt Count 112 L (160-400) X10*3/uL BMP 09/11/23 05:42 Sodium 136 Potassium 3.2 L Chloride 106 Carbon Dioxide 21 L BUN 22 H Creatinine 2.55 H Calcium 7.6 L Urine 09/08/23 Range/Units 06:26 Urine Color Yellow Urine Appearance Clear Urine pH 5.0 (5.0-9.0) Ur Specific [place] 1.010 (1.005-1.025) Urine Protein 30 (1+) H (Neg-Trace) mg/dL Urine Glucose (UA) 250 H (Negative) mg/dL All other labs normal. Assessment and Plan (1) Foreign body of toe of right foot: Qualifiers: Encounter type: initial encounter Qualified Code(s): S90.454A - Superficial foreign body, right lesser toe(s), initial encounter Status: Acute Plan 68-year-old female patient found to have an open wound of the right great toe. By x-ray a small foreign body was identified. This appears to be an irregular shaped object, non metallic possibly a small stone. Local wound exploration today at the bedside could not identify any foreign body within the wound base. By x-ray this appears to be quite superficial and may have fallen out already. Recommend local wound care with dry sterile dressings. Warm soaks may be helpful as well. We will continue to monitor during her hospitalization. Procedures Date of Service Date of Service: 09/11/23
[2023-09-11] MEDS: Calcium Carbonate 750 MG TAB.CHEW PO (09:21)
[2023-09-11] MEDS: Isosorbide Mononitrate 30 MG TAB.ER.24H PO (09:21)
[2023-09-11] MEDS: carvediloL 12.5 MG TABLET PO (09:21)
[2023-09-11] MEDS: calcitrioL 0.25 MCG CAPSULE 1 MCG PO (09:21)
[2023-09-11] MEDS: hydrALAZINE HCl 10 MG TABLET PO (09:22)
[2023-09-11] MEDS: Sertraline HCL 25 MG TABLET PO (09:22)
[2023-09-11] MEDS: Ferrous Sulfate 324 MG TABLET.DR PO (09:22)
[2023-09-11] MEDS: Famotidine/PF 20 MG/2 ML VIAL IVPUSH (09:22)
[2023-09-11] MEDS: 0.9 % Sodium Chloride Flush 3 ML SYRINGE IVFLUSH ×3 (09:23→21:15)
--- NOTE | 2023-09-11 09:57 | HO.VASCPN ---
Subjective Subjective Date of Service: 09/11/23 Patient reports: no new complaints and feels better Interval history: Pleasant 68-year-old female presents for follow-up regarding nonhealing right great toe. She appears to be doing relatively well. She is undergone noninvasive ultrasound. She now presents for follow-up. Physical Exam Vital Signs: Vital Signs: Last Vital Signs Temp 97.3 F 09/11/23 07:50 Pulse 62 09/11/23 09:21 Resp 16 09/11/23 07:53 BP 149/72 H 09/11/23 09:22 Pulse Ox 96 09/11/23 07:50 O2 Del Method Room Air 09/11/23 07:50 BMI result Body Mass Index 27.2 Const: General: cooperative, healthy appearing and comfortable Orientation/consciousness: oriented to person, oriented to place and oriented to time HEENT: Head: Yes normal to inspection Neck: Neck: Yes normal visual inspection Carotids: no bruits Chest: Chest palpation & inspection: normal inspection of the chest Resp: Effort & Inspection: normal respiratory effort and able to speak in complete sentences Auscultation: clear to auscultation bilaterally, no crackles, no rales, no rhonchi and no wheezes Cardio: Rate: regular rate Rhythm: regular rhythm Heart sounds: S1 normal heart sound present and S2 normal heart sound present Bruits: no carotid bruits Peripheral pulses: Peripheral pulses 2+ throughout GI: Inspection: Yes normal to inspection Skin: Other: Right great toe plantar ulcer Wounds: no wounds Hair: normal Neuro: General: oriented to person, oriented to place and oriented to time Cranial nerves: Yes CN's II-XII intact bilaterally and Yes Normal hearing present Cognition (Neuro): normal cognition Motor exam (neuro): 5/5 motor strength present throughout Extrem: Other: venous exam: No significant superficial varicosities or spider telangiectasias, minimal edema General: No clubbing, No cyanosis and No edema Psych: Appearance: grossly normal Mental Status: mental status grossly normal Speech and movement: Normal speech and movement present Progress Note: A&P Assessment and plan (1) PAD (peripheral artery disease): Status: Acute Assessment and Plan: In short patient has nonhealing great toe ulcer. In addition she has an occlusion of the right distal SFA as seen on ultrasound. Unfortunately she has in the process starting dialysis. At the current time the foot appears to be stable. She will require endovascular intervention but that can be scheduled as an outpatient once she has a more stable regimen. She will follow up with us as an outpatient in about 2 weeks upon discharge. Thank you for allowing us to assist in her care. If there are any questions or concerns please do not hesitate to contact us Time Spent With Patient Time: Total time managing care of this patient today ____ minutes. Procedures Date of Service Date of Service: 09/11/23 Quality Stroke Does the patient have a stroke diagnosis?: No VTE Prior VTE?: No VTE Risk Level:: Medical - moderate - high VTE Device Contraindication: Treatment Not Indicated VTE Drug Contraindication: N/A - Med Ordered
--- NOTE | 2023-09-11 10:42 | MHC.CM.PN ---
Pt is not ready for DC yet, she has home care services from a [facility] and [facility] home health care. They were updated via MyDoc, and did not answer, CM called them at: [phone]. The found the info sent in careport and said to keep them up to date that way. CM to follow for DC needs.
[2023-09-11 11:01] LABS: Glucose, Whole Blood 196 mg/dL (60-115)
[2023-09-11] MEDS: Aspirin Enteric Coated 81 MG TABLET.DR PO ×2 (11:44→11:46)
[2023-09-11] MEDS: Insulin Lispro 100 UNIT/ML 3 ML VIAL SUBCUT ×3 (11:44→21:12)
--- NOTE | 2023-09-11 11:46 | HO.WOUND ---
Wound Consult: Initial 68yr old?female admitted to [facility] on 09/07/23 - See progress notes and H&P for detailed history.? Wound consult placed for right Great Toe wound.? Patient agreeable to assessment and photo documentation.?Patient has been seen by Dr. Butler this admission and should continue follow up with him out pt in addition to the wound clinic outpt. Right Great Toe Etiology: Diabetic Wound ??Present on Admission Measurements: 1cm x 1cm x 0.3cm Wound Bed: adherent thick fibrinous yellow slough Drainage / Odor: scant serosang - no odor Edges: ? unattached and callused [place] wound: ?Macerated and callused tissue noted - No Induration, Fluctuance or Warmth noted Pain: tenderness reported at times - denies neuroapthy currently but reports she does have at times. No PP assessed at the bedside but cap refill noted and toes a mild warm not cool to touch Goals of Treatment: ? Santyl for Enzymatic treatment Recommendations: 1. Turn and Reposition every 2 hours and as needed for patient comfort.? Use pillows or wedges to support off loading positions. 2. Off Load all bony prominences with use of pillows and heel boots if needed.? Apply Preventative foams where needed. ? 3. Monitor for incontinence and moisture control, use barrier creams when needed for prevention and treatment. 4. Provide adequate and supplemental nutrition.? 5. Order or Continue low air loss mattress. 6. When applicable maintain blood glucose levels per Providers order. 7. Right Great Toe - Elevate lower legs off of surface of bed with use of pillows.? Cleanse with normal saline, pat dry. ?Apply barrier wipe to the immediate quiana wound, apply thick layer of Santyl to entire wound bed, cover with xeroform, secure dry gauze, and gauze wrap, change Daily. Wound Clinic Follow up Recommend follow up out patient Wound Clinic at [address] [place] [id number] and to call for an appointment at time of discharge. [phone].? Dr Butler Follow up Recommend Dr. Butler Vascular Surgeon for outpatient follow up.? His office is located at [address] [place] [address] [id number], [place] [address], call for an appointment at time of discharge [phone] Re-consult wound care Nurse for wound deterioration or wound changes.
--- NOTE | 2023-09-11 13:03 | P.PNNP_ITS ---
Subjective Subjective Date of Service: 09/11/23 Interval history: Events noted. All recent data reviewed. Spoke with the hospitalist Physical Exam 2 Vital Signs: Vital Signs: Last Vital Signs Temp 96.9 F 09/11/23 11:23 Pulse 63 09/11/23 11:23 Resp 20 09/11/23 11:23 BP 118/62 09/11/23 11:23 Pulse Ox 98 09/11/23 11:23 O2 Del Method Room Air 09/11/23 11:23 BMI result Body Mass Index 27.2 Const: General: comfortable and no acute distress O rientation/consciousness: patient oriented x3 HEENT: Head: Yes normocephalic Mouth: Normal oral and palatal mucosa present Eyes: EOM: EOMs intact bilaterally Neck: Neck: Yes supple Resp: Auscultation: clear to auscultation bilaterally Cardio: Jugular venous distension: no JVD Rate: regular rate GI: Palpation (GI): Soft to palpation Auscultation: normal bowel sounds : General: Yes no CVA tenderness Back/Spine/Pelvis: Back: no CVA tenderness Skin: General skin exam: no rashes or lesions noted Neuro: General: patient oriented x3 and moves all extremities Objective Data Labs 09/11/23 05:42 09/11/23 05:42 Labs: Laboratory Results - last 24 hr 09/08/23 09/10/23 09/10/23 04:59 07:50 17:27 WBC RBC Hgb Hct MCV MCH MCHC RDW Plt Count MPV Absolute Nucleated RBC Nucleated RBC % (auto) Hold Purple Top Sodium Potassium Chloride Carbon Dioxide Anion Gap BUN Creatinine Estim Creat Clear Calc Estimated GFR POC Glucose 95 Random Glucose Calcium Ionized Calcium 3.0 L* Phosphorus Magnesium 1.8 09/10/23 09/11/23 09/11/23 20:09 05:42 07:01 WBC 5.8 RBC 3.56 L Hgb 10.0 L Hct 31.2 L MCV 87.6 MCH 28.1 MCHC 32.1 RDW 15.5 Plt Count 112 L MPV 11.5 Absolute Nucleated RBC 0.000 Nucleated RBC % (auto) 0.0 Hold Purple Top SEE NOTE Sodium 136 Potassium 3.2 L Chloride 106 Carbon Dioxide 21 L Anion Gap 12 BUN 22 H Creatinine 2.55 H Estim Creat Clear Calc 17.3 Estimated GFR 19 POC Glucose 178 H 116 H Random Glucose 116 H Calcium 7.6 L Ionized Calcium Phosphorus 4.5 Magnesium 1.9 09/11/23 10:53 WBC RBC Hgb Hct MCV MCH MCHC RDW Plt Count MPV Absolute Nucleated RBC Nucleated RBC % (auto) Hold Purple Top Sodium Potassium Chloride Carbon Dioxide Anion Gap BUN Creatinine Estim Creat Clear Calc Estimated GFR POC Glucose 196 H Random Glucose Calcium Ionized Calcium Phosphorus Magnesium Procedures Date of Service Date of Service: 09/11/23 Assessment & Plan Assessment and plan (1) ESRD needing dialysis: Status: Acute Plan Iris had CKD 5 & now has end stage renal disease. Had signs and symptoms suggestive of uremia. Initiated on HD As an outpatient she wants to have peritoneal dialysis Schedule for PD catheter insertion on by Dr. Vogel Watch hemoglobin and we will administer Epogen as needed Outpatient PD being arranged in [facility] Progress Note: Quality Stroke Does the patient have a stroke diagnosis?: No
--- NOTE | 2023-09-11 14:04 | HO.PM.IMPN ---
Subjective Subjective Date of Service: 09/11/23 Interval History: seen and examined this morning Follow-up for renal failure status post PermCath placement, toe wound Plan for peritoneal dialysis catheter placement tomorrow Nausea improving Review of Systems Review of Systems: Yes all other systems are reviewed and are negative Constitutional Constitutional: Denies fever(s) Cardiovascular Cardiovascular: Denies chest pain and Denies dyspnea Respiratory Respiratory: Denies dyspnea Gastrointestinal Gastrointestinal: Denies abdominal pain Physical Exam Vital Signs: Vital Signs: Last Vital Signs Temp 96.9 F 09/11/23 11:23 Pulse 63 09/11/23 11:23 Resp 20 09/11/23 11:23 BP 118/62 09/11/23 11:23 Pulse Ox 98 09/11/23 11:23 O2 Del Method Room Air 09/11/23 11:23 BMI result Body Mass Index 27.2 Const: General: cooperative, comfortable, no acute distress, alert and awake Nutritional Appearance: average body habitus Orientation/consciousness: patient oriented x3 Resp: Effort & Inspection: normal respiratory effort, able to speak in complete sentences and no respiratory distress Cardio: Rate: regular rate GI: Inspection: No distended Palpation (GI): Soft to palpation and nontender Skin: Other: PermCath present right anterior chest wall, no surrounding erythema Neuro: General: patient oriented x3, moves all extremities and CN's II-XI intact bilaterally Extrem: General: Yes no pedal edema Objective Data Active Medications Acetaminophen (Acetaminophen 325 Mg Tablet) 650 mg PO Q6H PRN PRN Reason: Pain, Mild (Pain Scale 1-3), fever or headache Last Admin: 09/10/23 07:45 Dose: 650 mg Documented By: EBN Aspirin (Aspirin Enteric Coated 81 Mg Tablet.) 81 mg PO DAILY@1200 [facility] Last Admin: 09/11/23 11:46 Dose: 81 mg Documented By: BEN Atorvastatin Calcium (Atorvastatin Calcium 80 Mg Tablet) 80 mg PO BEDTIME [facility] Last Admin: 09/10/23 20:45 Dose: 80 mg Documented By: DEVANTE Calcitriol (Calcitriol 0.25 Mcg Capsule) 1 mcg PO DAILY [facility] Last Admin: 09/11/23 09:21 Dose: 1 mcg Documented By: BEN Calcium Carbonate (Calcium Carbonate 750 Mg Tab.Chew) 750 mg PO TID [facility] Last Admin: 09/11/23 09:21 Dose: 750 mg Documented By: BEN Carvedilol (Carvedilol 12.5 Mg Tablet) 12.5 mg PO BID [facility]; Protocol Last Admin: 09/11/23 09:21 Dose: 12.5 mg Documented By: BEN Collagenase (Collagenase Clostridium Hist. 30 Gm Tube) 1 appl TOPICAL DAILY [facility]; Protocol Famotidine (Famotidine/Pf 20 Mg/2 Ml Vial) 20 mg IVPUSH BID [facility] Last Admin: 09/11/23 09:22 Dose: 20 mg Documented By: BEN Ferrous Sulfate (Ferrous Sulfate 324 Mg Tablet.Dr) 324 mg PO DAILY [facility] Last Admin: 09/11/23 09:22 Dose: 324 mg Documented By: BEN Fluticasone/Vilanterol (Fluticasone/Vilanterol 200/25 Blst.W.Dev) 1 puff INHALE RDAILY [facility] Last Admin: 09/11/23 07:52 Dose: 1 puff Documented By: DENICE Glucose (Glucose Gel 15 Gm Gel..Gram.) 15 gm PO Q15M PRN; Protocol PRN Reason: per Hypoglycemia Standing Ord. Heparin Sodium (Porcine) (Heparin Sodium,Porcine 5,000 Unit/Ml Vial) 5,000 unit SUBCUT Q8H [facility] Last Admin: 09/11/23 05:47 Dose: Not Given Documented By: CHELSEY Non-Admin Reason: Patient Refused Hydralazine HCl (Hydralazine Hcl 10 Mg Tablet) 10 mg PO TID [facility]; Protocol Last Admin: 09/11/23 09:22 Dose: 10 mg Documented By: BEN Dextrose (D10) 250 mls @ 750 mls/hr IV Q15M PRN; Protocol PRN Reason: per Hypoglycemia Standing Ord. Insulin Human Lispro (Insulin Lispro 100 Unit/Ml 3 Ml Vial) 0 unit SUBCUT QIDACHS [facility]; Protocol Last Admin: 09/11/23 11:44 Dose: 2 unit Documented By: BEN Isosorbide Mononitrate (Isosorbide Mononitrate 30 Mg Tab.Er.24h) 30 mg PO DAILY [facility]; Protocol Last Admin: 09/11/23 09:21 Dose: 30 mg Documented By: BEN Levothyroxine Sodium (Levothyroxine Sodium 150 Mcg Tablet) 150 mcg PO DAILY@0630 [facility] Last Admin: 09/11/23 05:47 Dose: 150 mcg Documented By: CHELSEY Melatonin (Melatonin 3 Mg Tablet) 6 mg PO BEDTIME PRN PRN Reason: Insomnia Last Admin: 09/10/23 20:31 Dose: 6 mg Documented By: DEVANTE Montelukast Sodium (Montelukast Sodium 10 Mg Tablet) 10 mg PO BEDTIME [facility] Last Admin: 09/10/23 20:32 Dose: 10 mg Documented By: DEVANTE Ondansetron HCl (Ondansetron Hcl 4 Mg/2 Ml Vial) 4 mg IVPUSH Q4H PRN PRN Reason: Nausea and Vomiting Last Admin: 09/10/23 18:17 Dose: 4 mg Documented By: BEN Sertraline HCl (Sertraline Hcl 25 Mg Tablet) 25 mg PO DAILY [facility] Last Admin: 09/11/23 09:22 Dose: 25 mg Documented By: BEN Sodium Chloride (0.9 % Sodium Chloride Flush 3 Ml Syringe) 3 ml IVFLUSH QSHIFT [facility] Last Admin: 09/11/23 09:23 Dose: 3 ml Documented By: BEN Tiotropium [place] (Tiotropium [place] 2.5 Mcg 1 Puff/2.5 Mcg Mist.Inhal) 2 puff INHALE RDAILY [facility] Last Admin: 09/11/23 07:52 Dose: 2 puff Documented By: JUANIB Labs 09/11/23 05:42 09/11/23 05:42 Labs: Laboratory Results - last 24 hr 09/08/23 09/10/23 09/10/23 04:59 07:50 17:27 MCV MCH MCHC RDW Plt Count MPV Absolute Nucleated RBC Nucleated RBC % (auto) Hold Purple Top Anion Gap Estim Creat Clear Calc Estimated GFR POC Glucose 95 Random Glucose Calcium Ionized Calcium 3.0 L* Phosphorus Magnesium 1.8 09/10/23 09/11/23 09/11/23 20:09 05:42 07:01 MCV 87.6 MCH 28.1 MCHC 32.1 RDW 15.5 Plt Count 112 L MPV 11.5 Absolute Nucleated RBC 0.000 Nucleated RBC % (auto) 0.0 Hold Purple Top SEE NOTE Anion Gap 12 Estim Creat Clear Calc 17.3 Estimated GFR 19 POC Glucose 178 H 116 H Random Glucose 116 H Calcium 7.6 L Ionized Calcium Phosphorus 4.5 Magnesium 1.9 09/11/23 10:53 MCV MCH MCHC RDW Plt Count MPV Absolute Nucleated RBC Nucleated RBC % (auto) Hold Purple Top Anion Gap Estim Creat Clear Calc Estimated GFR POC Glucose 196 H Random Glucose Calcium Ionized Calcium Phosphorus Magnesium Assessment and Plan (1) ESRD needing dialysis: Status: Acute (2) Foreign body of toe of right foot: Status: Acute Plan Sarah So is a 68 y/o woman admitted with abd pain Abdominal discomfort, nausea and vomiting secondary to uremia, MARY KATE on CKD 06/20. Continue to hold furosemide. s/p IV fluids. Avoid nephrotoxic agents. s/p permacath and dialysis 09/09/23 Plan for PD catheter as per nephrology, planned for 09/11 Severe hypocalcemia, hypophosphatemia and elevated PTH likely secondary hyperparathyroidism. Replete calcium and continue phosphate binders. on calcitrol 1 mcg daily Right great toe wound Toe xray>neg for osteomyelitis but possible small foreign body seen by general surgery, local wound exploration at bedside and was unable to identify any foreign body likely has already fallen out as it was very superficial. vascular surgery consultation> plan for likely vascular intervention outpatient as pt is just starting dialysis Continue local wound care as per wound care nurse recommendations Prolonged QT secondary to hypocalcemia. Telemetry. Continue calcium supplementation. Continue to monitor QT - improved under 500 Metabolic acidosis secondary to renal failure. s/p IV fluids. on dialysis Type 2 diabetes mellitus. Blood glucose monitoring before meals and bedtime. Insulin sliding scale for now. Diabetic diet. Hyperlipidemia. Continue statin. Chronic anemia due to CKD. Continue iron supplementation oraly. Hypothyroidism s/p thyroidectomy (hx of thyroid CA -unknown type). Last TSH is normal (2 days ago). Continue levothyroxine. Hypertension. Continue hydralazine, coreg CAD. Continue Isordil, statin and aspirin. HFrEF. EF 35-40%. No decompensation at this time. COPD -not home oxygen. No acute symptoms. Continue inhalers. PAD s/p SFA plasty and aortogram. Continue statin and asa DVT prophylaxis: Heparin Code status: Full DISPO plan for PD cath placement, in the meantime nephro set up location for HD continue hosptial stay for uremia treatment with hemodialysis. Patient also cardiac monitoring, VS checks and close monitoring of electrolytes. Quality Stroke Does the patient have a stroke diagnosis?: No VTE Prior VTE?: No VTE Risk Level:: Medical - moderate - high VTE Device Contraindication: Treatment Not Indicated VTE Drug Contraindication: N/A - Med Ordered
[2023-09-11 16:17] LABS: Glucose, Whole Blood 206 mg/dL (60-115)
[2023-09-11] MEDS: ondansetron HCL 4 MG/2 ML VIAL IVPUSH (17:41)
[2023-09-11 19:58] LABS: Glucose, Whole Blood 179 mg/dL (60-115)
[2023-09-11] MEDS: Melatonin 3 MG TABLET 6 MG PO (21:13)
[2023-09-11] MEDS: Atorvastatin Calcium 80 MG TABLET PO (21:15)
[2023-09-11] MEDS: Montelukast Sodium 10 MG TABLET PO (21:15)
[2023-09-12] VITALS (14 sets, daily range): BP systolic 92–167; BP diastolic 55–72; PULSE 55–70; RESP 15–18; TEMP 36.2–36.9; O2SAT 96–100
[2023-09-12 06:56] LABS: Anion Gap 15 (12-20); Blood Urea Nitrogen 36 mg/dL (9-16); Calcium 7.5 mg/dL (8.4-10.2); Carbon Dioxide 20 mmol/L (22-29); Chloride 106 mmol/L (96-108); Creatinine Clr Calc Pharmacy 11.6; Estimated Glomerular Filt Rate 12; Glucose Random 93 mg/dL (60-115); Potassium 3.6 mmol/L (3.3-5.1); Sodium 137 mmol/L (135-145)
[2023-09-12] MEDS: Fluticasone/Vilanterol 200/25 BLST.W.DEV 1 PUFF INHALE (08:10)
[2023-09-12] MEDS: Tiotropium Bromide 2.5 mcg 1 PUFF/2.5 MCG MIST.INHAL 2 PUFF INHALE (08:10)
[2023-09-12 08:56] LABS: Glucose, Whole Blood 96 mg/dL (60-115)
[2023-09-12] MEDS: 0.9 % Sodium Chloride Flush 3 ML SYRINGE IVFLUSH ×2 (09:30→22:16)
[2023-09-12] MEDS: Sertraline HCL 25 MG TABLET PO (09:30)
[2023-09-12] MEDS: carvediloL 12.5 MG TABLET PO ×2 (09:30→22:14)
[2023-09-12] MEDS: hydrALAZINE HCl 10 MG TABLET PO ×2 (09:31→22:14)
[2023-09-12] MEDS: Isosorbide Mononitrate 30 MG TAB.ER.24H PO (09:31)
[2023-09-12] MEDS: calcitrioL 0.25 MCG CAPSULE 1 MCG PO (09:32)
[2023-09-12 11:04] LABS: Glucose, Whole Blood 122 mg/dL (60-115)
--- NOTE | 2023-09-12 13:15 | PM.PNNEP ---
Subjective Subjective Date of Service: 09/12/23 Interval history: Doing much better Physical Exam Vital Signs: Vital Signs: Last Vital Signs Temp 97.2 F 09/12/23 11:30 Pulse 69 09/12/23 11:30 Resp 18 09/12/23 11:30 BP 92/60 09/12/23 11:30 Pulse Ox 100 09/12/23 11:30 O2 Del Method Room Air 09/12/23 11:30 BMI result Body Mass Index 27.2 Const: General: comfortable; No acute distress Orientation/consciousness: patient oriented x3 Eyes: General: appearance normal, both eyes and all related structures Visual Delgado: normal visual delgado by confrontation Neck: Neck: Yes supple and Yes no JVD Resp: Effort & Inspection: normal respiratory effort and respiratory effort not decreased Auscultation: rhonchi Cardio: Palpation: no palpable S3 and no palpable S4 Heart sounds: no rubs GI: Inspection: Yes normal to inspection Palpation (GI): Soft to palpation Percussion: Yes normal to percussion Auscultation: normal bowel sounds : General: Yes no CVA tenderness Back/Spine/Pelvis: Back: no CVA tenderness Skin: General skin exam: no petechiae and no purpura Neuro: General: patient oriented x3 and no focal motor deficits Extrem: General: No clubbing and No edema Objective Data Labs 09/13/23 10:05 09/12/23 06:00 Labs: Laboratory Results - last 24 hr 09/11/23 09/11/23 09/12/23 16:04 19:54 06:00 Sodium 137 Potassium 3.6 Chloride 106 Carbon Dioxide 20 L Anion Gap 15 BUN 36 H Creatinine 3.77 H Estim Creat Clear Calc 11.6 Estimated GFR 12 POC Glucose 206 H 179 H Random Glucose 93 Calcium 7.5 L 09/12/23 09/12/23 06:55 10:54 Sodium Potassium Chloride Carbon Dioxide Anion Gap BUN Creatinine Estim Creat Clear Calc Estimated GFR POC Glucose 96 122 H Random Glucose Calcium Procedures Date of Service Date of Service: 09/16/23 Assessment & Plan Assessment and plan (1) CKD (chronic kidney disease): Status: Acute Plan Iris has CKD 5 approaching end stage renal disease. Fluid status seems acceptable. Schedule for PD catheter insertion today Watch hemoglobin and we will administer Epogen as needed Keep calcitriol to 1 mcg a day. Follow phosphorus and magnesium HD again tomorrow and technical applications scientist be dischraged Out pt dialysis is being arranged Time Spent With Patient Time: Total time managing care of this patient today ____ minutes. Progress Note: Quality Stroke Does the patient have a stroke diagnosis?: No
--- NOTE | 2023-09-12 14:33 | HO.PM.IMPN ---
Subjective Subjective Date of Service: 09/12/23 Interval History: seen and examined this morning follow up for renal failure No overnight events feeling well, eager to return home Review of Systems Review of Systems: Yes all other systems are reviewed and are negative Constitutional Constitutional: Denies chills and Denies fever(s) Physical Exam Vital Signs: Vital Signs: Last Vital Signs Temp 97.2 F 09/12/23 11:30 Pulse 69 09/12/23 11:30 Resp 18 09/12/23 11:30 BP 92/60 09/12/23 11:30 Pulse Ox 100 09/12/23 11:30 O2 Del Method Room Air 09/12/23 11:30 BMI result Body Mass Index 27.2 Const: General: cooperative, comfortable, no acute distress, alert and awake Nutritional Appearance: average body habitus Orientation/consciousness: patient oriented x3 Resp: Effort & Inspection: normal respiratory effort, able to speak in complete sentences and no respiratory distress Cardio: Rate: regular rate GI: Inspection: No distended Palpation (GI): Soft to palpation and nontender Skin: Other: PermCath present right anterior chest wall, no surrounding erythema Neuro: General: patient oriented x3, moves all extremities and CN's II-XI intact bilaterally Extrem: General: Yes no pedal edema Objective Data Active Medications Acetaminophen (Acetaminophen 325 Mg Tablet) 650 mg PO Q6H PRN PRN Reason: Pain, Mild (Pain Scale 1-3), fever or headache Last Admin: 09/10/23 07:45 Dose: 650 mg Documented By: BEN Aspirin (Aspirin Enteric Coated 81 Mg Tablet.) 81 mg PO DAILY@1200 [facility] Last Admin: 09/11/23 11:46 Dose: 81 mg Documented By: BEN Atorvastatin Calcium (Atorvastatin Calcium 80 Mg Tablet) 80 mg PO BEDTIME [facility] Last Admin: 09/11/23 21:15 Dose: 80 mg Documented By: MOO Calcitriol (Calcitriol 0.25 Mcg Capsule) 1 mcg PO DAILY [facility] Last Admin: 09/12/23 09:32 Dose: 1 mcg Documented By: PASTOR Calcium Carbonate (Calcium Carbonate 750 Mg Tab.Chew) 750 mg PO TID [facility] Last Admin: 09/12/23 09:31 Dose: Not Given Documented By: PASTOR Non-Admin Reason: Patient Refused Carvedilol (Carvedilol 12.5 Mg Tablet) 12.5 mg PO BID [facility]; Protocol Last Admin: 09/12/23 09:30 Dose: 12.5 mg Documented By: PASTOR Collagenase (Collagenase Clostridium Hist. 30 Gm Tube) 1 appl TOPICAL DAILY [facility]; Protocol Last Admin: 09/12/23 10:40 Dose: Not Given Documented By: PASTOR Non-Admin Reason: Med Not Available Ferrous Sulfate (Ferrous Sulfate 324 Mg Tablet.Dr) 324 mg PO DAILY [facility] Last Admin: 09/12/23 08:37 Dose: Not Given Documented By: PASTOR Non-Admin Reason: Hold for procedure Fluticasone/Vilanterol (Fluticasone/Vilanterol 200/25 Blst.W.Dev) 1 puff INHALE RDAILY [facility] Last Admin: 09/12/23 08:10 Dose: 1 puff Documented By: SHON Glucose (Glucose Gel 15 Gm Gel..Gram.) 15 gm PO Q15M PRN; Protocol PRN Reason: per Hypoglycemia Standing Ord. Heparin Sodium (Porcine) (Heparin Sodium,Porcine 5,000 Unit/Ml Vial) 5,000 unit SUBCUT Q8H [facility] Last Admin: 09/12/23 06:06 Dose: Not Given Documented By: MOO Non-Admin Reason: procedure today Hydralazine HCl (Hydralazine Hcl 10 Mg Tablet) 10 mg PO TID [facility]; Protocol Last Admin: 09/12/23 09:31 Dose: 10 mg Documented By: PASTOR Dextrose (D10) 250 mls @ 750 mls/hr IV Q15M PRN; Protocol PRN Reason: per Hypoglycemia Standing Ord. Insulin Human Lispro (Insulin Lispro 100 Unit/Ml 3 Ml Vial) 0 unit SUBCUT QIDACHS [facility]; Protocol Last Admin: 09/12/23 11:10 Dose: Not Given Documented By: PASTOR Non-Admin Reason: No Insulin Coverage Isosorbide Mononitrate (Isosorbide Mononitrate 30 Mg Tab.Er.24h) 30 mg PO DAILY [facility]; Protocol Last Admin: 09/12/23 09:31 Dose: 30 mg Documented By: PASTOR Levothyroxine Sodium (Levothyroxine Sodium 150 Mcg Tablet) 150 mcg PO DAILY@0600 [facility] Melatonin (Melatonin 3 Mg Tablet) 6 mg PO BEDTIME PRN PRN Reason: Insomnia Last Admin: 09/11/23 21:13 Dose: 6 mg Documented By: MOO Montelukast Sodium (Montelukast Sodium 10 Mg Tablet) 10 mg PO BEDTIME [facility] Last Admin: 09/11/23 21:15 Dose: 10 mg Documented By: MOO Omeprazole (Omeprazole 20 Mg Capsule.Dr) 20 mg PO DAILY@0630 [facility] Last Admin: 09/12/23 06:06 Dose: Not Given Documented By: MOO Non-Admin Reason: NPO Ondansetron HCl (Ondansetron Hcl 4 Mg/2 Ml Vial) 4 mg IVPUSH Q4H PRN PRN Reason: Nausea and Vomiting Last Admin: 09/11/23 17:41 Dose: 4 mg Documented By: BEN Sertraline HCl (Sertraline Hcl 25 Mg Tablet) 25 mg PO DAILY [facility] Last Admin: 09/12/23 09:30 Dose: 25 mg Documented By: PASTOR Sodium Chloride (0.9 % Sodium Chloride Flush 3 Ml Syringe) 3 ml IVFLUSH QSHIFT [facility] Last Admin: 09/12/23 09:30 Dose: 3 ml Documented By: PASTOR Tiotropium [place] (Tiotropium [place] 2.5 Mcg 1 Puff/2.5 Mcg Mist.Inhal) 2 puff INHALE RDAILY [facility] Last Admin: 09/12/23 08:10 Dose: 2 puff Documented By: SHON Labs 09/11/23 05:42 09/12/23 06:00 Labs: Laboratory Results - last 24 hr 09/11/23 09/11/23 09/12/23 16:04 19:54 06:00 Anion Gap 15 Estim Creat Clear Calc 11.6 Estimated GFR 12 POC Glucose 206 H 179 H Random Glucose 93 Calcium 7.5 L 09/12/23 09/12/23 06:55 10:54 Anion Gap Estim Creat Clear Calc Estimated GFR POC Glucose 96 122 H Random Glucose Calcium Assessment and Plan (1) ESRD needing dialysis: Status: Acute Plan Sarah So is a 68 y/o woman admitted with abd pain Abdominal discomfort, nausea and vomiting secondary to uremia, MARY KATE on CKD 4/5. Continue to hold furosemide. s/p IV fluids. Avoid nephrotoxic agents. s/p permacath placement and inititation of dialysis 09/09/23 Plan for PD catheter as per nephrology, planned for today Inpatient HD planned for 09/12 Severe hypocalcemia, hypophosphatemia and elevated PTH likely secondary hyperparathyroidism. improved Replete calcium and continue phosphate binders. on calcitrol 1 mcg daily Right great toe wound Toe xray>neg for osteomyelitis but possible small foreign body seen by general surgery, local wound exploration at bedside and was unable to identify any foreign body likely has already fallen out as it was very superficial. vascular surgery consultation> plan for likely vascular intervention outpatient as pt is just starting dialysis Continue local wound care as per wound care nurse recommendations Prolonged QT secondary to hypocalcemia. Telemetry. Continue calcium supplementation. Continue to monitor QT - improved under 500 Metabolic acidosis secondary to renal failure. improved s/p IV fluids on dialysis Type 2 diabetes mellitus. Blood glucose monitoring before meals and bedtime. Insulin sliding scale for now. Diabetic diet. Hyperlipidemia. Continue statin. Chronic anemia due to CKD. Continue iron supplementation orally. Hypothyroidism s/p thyroidectomy (hx of thyroid CA -unknown type). Last TSH is normal (2 days ago). Continue levothyroxine. Hypertension. Continue hydralazine, coreg CAD. Continue Isordil, statin and aspirin. HFrEF. EF 35-40%. No decompensation at this time. HD as above COPD -not home oxygen. No acute symptoms. Continue inhalers. PAD s/p SFA plasty and aortogram. Continue statin and asa DVT prophylaxis: Heparin Code status: Full DISPO plan for PD cath placement, in the meantime nephro set up location for HD continue hosptial stay for uremia treatment with hemodialysis. Patient also cardiac monitoring, VS checks and close monitoring of electrolytes. Quality Stroke Does the patient have a stroke diagnosis?: No VTE Prior VTE?: No VTE Risk Level:: Medical - moderate - high VTE Device Contraindication: Treatment Not Indicated VTE Drug Contraindication: N/A - Med Ordered
[2023-09-12 16:33] LABS: Glucose, Whole Blood 118 mg/dL (60-115)
--- NOTE | 2023-09-12 19:17 | PC.NURSE ---
Pt status post peritoneal dialysis catheter, dressing applied to ABD. Pt came up with small amount of noticeable bleeding through the dressing and hour after dressing showed increased noticeable bleeding. Vitals stabled and pt asymptomatic, Dr. Vogel notified, verbal orders given to apply pressure and change dressing. MARYELLEN Sargent at bedside changed dressing. No active bleeding noticed, pt tolerated well. All other needs met at this time.
[2023-09-12 19:24] LABS: Hematocrit 28.7 % (37.0-47.0); Hemoglobin 9.2 g/dl (12.0-16.0); Mean Corpuscular HGB Conc 32.1 g/dl (31.0-35.0); Mean Corpuscular Hemoglobin 28.4 pg (27.0-33.0); Mean Corpuscular Volume 88.6 fL (80.0-98.0); Mean Platelet Volume 10.3 fL (9.4-12.3); Platelet Count 108 X10*3/uL (160-400); Red Blood Count 3.24 X10*6/uL (4.20-5.50); Red Cell Distribution Width 15.3 % (11.0-16.0); White Blood Count 6.1 X10*3/uL (4.8-10.8)
[2023-09-12 20:53] LABS: Glucose, Whole Blood 195 mg/dL (60-115)
[2023-09-12] MEDS: Insulin Lispro 100 UNIT/ML 3 ML VIAL SUBCUT (22:13)
[2023-09-12] MEDS: Atorvastatin Calcium 80 MG TABLET PO (22:14)
[2023-09-12] MEDS: Montelukast Sodium 10 MG TABLET PO (22:14)
[2023-09-12] MEDS: Melatonin 3 MG TABLET 6 MG PO (22:17)
[2023-09-13] VITALS (7 sets, daily range): BP systolic 114–151; BP diastolic 58–74; PULSE 62–68; RESP 12–16; TEMP 36.2–36.6; O2SAT 97–99
[2023-09-13] MEDS: Levothyroxine Sodium 150 MCG TABLET PO (05:35)
[2023-09-13] MEDS: Omeprazole 20 MG CAPSULE.DR PO (05:35)
--- NOTE | 2023-09-13 07:34 | PC.NURSE ---
at start of shift on 09/11, previous nurse informed me of patient's saturated abd gauze dressing r/t peritoneal dialysis catheter placement same day. Dr. oVgel made aware and provided instructions on cleaning of tubing and site. dressing cleaned and changed around 2245. reassesment around 0100 showed no evidence of bleeding on surface of dressing. f/u reassessment around 0500 showed saturation of dressing with clotting around tubing once more. soft top installer made aware who also informed me of her intent to inform day hospitalist. vitamin k PO ordered for prolonged INR. change in hemoglobin 10.8 to 9.2 during course of shift. BP stable 128/70s. pt reports no change. Dr Vogel contacted again this morning of 09/12. he told this nurse that he will send a PA to put in a suture. pt comfortable, remains at baseline alertness and orientation. call lugo in reach. plan of care ongoing.
[2023-09-13 07:55] LABS: Glucose, Whole Blood 85 mg/dL (60-115)
[2023-09-13] MEDS: Tiotropium Bromide 2.5 mcg 1 PUFF/2.5 MCG MIST.INHAL 2 PUFF INHALE (07:55)
[2023-09-13] MEDS: Fluticasone/Vilanterol 200/25 BLST.W.DEV 1 PUFF INHALE (07:55)
[2023-09-13] MEDS: Phytonadione (Vit K1) Oral 10 MG/ML AMPUL PO (08:20)
[2023-09-13] MEDS: 0.9 % Sodium Chloride Flush 3 ML SYRINGE IVFLUSH (08:21)
[2023-09-13] MEDS: Sertraline HCL 25 MG TABLET PO (08:21)
[2023-09-13] MEDS: Ferrous Sulfate 324 MG TABLET.DR PO (08:21)
[2023-09-13] MEDS: calcitrioL 0.25 MCG CAPSULE 1 MCG PO (08:21)
[2023-09-13] MEDS: carvediloL 12.5 MG TABLET PO (08:24)
[2023-09-13] MEDS: hydrALAZINE HCl 10 MG TABLET PO ×2 (08:24→16:31)
[2023-09-13] MEDS: Isosorbide Mononitrate 30 MG TAB.ER.24H PO (08:26)
[2023-09-13 10:41] LABS: Hemoglobin 8.1 g/dl (12.0-16.0); Mean Corpuscular HGB Conc 31.2 g/dl (31.0-35.0); Mean Corpuscular Hemoglobin 27.8 pg (27.0-33.0); Mean Corpuscular Volume 89.3 fL (80.0-98.0); Mean Platelet Volume 10.8 fL (9.4-12.3); Platelet Count 110 X10*3/uL (160-400); Red Blood Count 2.91 X10*6/uL (4.20-5.50); Red Cell Distribution Width 15.3 % (11.0-16.0); White Blood Count 6.2 X10*3/uL (4.8-10.8)
[2023-09-13] MEDS: ondansetron HCL 4 MG/2 ML VIAL IVPUSH (12:06)
--- NOTE | 2023-09-13 12:38 | P.DS_ITS ---
DS: Providers Provider Date of Service: 09/13/23 Date of admission: 09/07/23 23:41 Date of discharge: 09/13/23 Primary care physician: Senait Pal MD Consults: 09/08/23 07:33 Consult to Nephrology Routine Consulting Provider: [facility] Reason for consultation: hypocalcemia, esrd 09/10/23 09:43 Consult to Vascular Surgery Routine Consulting Provider: [facility] Reason for consultation: Hx of PAD, Right great toe wound 09/10/23 11:53 Consult to Wound Care Routine Reason for consultation: R great toe 09/10/23 14:00 Consult to Wound Care Routine Reason for consultation: right great toe wound 09/10/23 14:02 Consult to General Surgery Routine Consulting Provider: [facility] [place] [facility] Reason for consultation: ? foreign body on xray of right great toe 09/10/23 14:58 Consult to Physician Routine Consulting Provider: Cristobal Vogel Reason for consultation: Peritoneal dialysis catheter insertion Has provider been notified: Yes 09/10/23 18:08 Consult to Gastroenterology Routine Consulting Provider: Denisha Vanegas Reason for consultation: intractable nausea Attending physician on discharge: Alexys Bird Discharging clinician: Akilah Sargent DS: Diagnosis Discharge Diagnosis (1) ESRD needing dialysis: Status: Acute DS: Summary Hospital Course Hospital Course: From H&P on the day of admission Sarah So is a 68 years old woman with past medical history significant for advanced CKD, hypothyroidism (s/p thyroidectomy due to thyroid CA), HFrEF (35-40%), hypoparathyroidism (after thyroidectomy), hypertension, hypercholesterolemia, COPD -no home oxygen and type 2 diabetes mellitus on insulin was brought to the emergency department via ambulance due to one-week history of upper abdominal discomfort associated with nausea and vomiting. She denied episodes of diarrhea or pain with urination. She makes urine. She does follow with Dr. Bowden as an outpatient and hemodialysis has been planned. Patient was advised to come to the emergency department for evaluation today by [facility] provider after she was noted to have abnormal labs and received treatment with 500 mL of NS. Patient denied any cardiopulmonary symptoms. Denied alcohol abuse, tobacco smoking or illicit drug use. Patient is a vague historian. Patient was taking furosemide 80 mg p.o. and was held yesterday. In the ED, she was found to have normal vital signs. Blood workup showed no leukocytosis. Hemoglobin is at baseline and there is mild thrombocytopenia 140. Corrected calcium is 5.3 (same as 2 days ago), magnesium is normal and there is significant hypokalemia of 2.9. Creatinine is 6.98 and BUN 116 (similar to level obtained 2 days ago). Venous pH is 7.27 and bicarb 19. BNP is 395. LFTs are normal. ECG showed prolonged QT (559 ms) and T-wave inversion in lateral leads. CXR is negative. ED tx: Calcium gluconate 2 g IV, KCL 40 mEq IV, NS 500 ml and potassium chloride 60 mEq. Abdominal discomfort, nausea and vomiting secondary to uremia, MARY KATE on CKD 06/20. s/p permacath placement and inititation of dialysis 09/09/23, last hemodialysis J une . Peritoneal dialysis catheter placed September 11 by IR. There was some bleeding from the site and an additional suture was placed by IR. No more bleeding was observed. IR also recommended 7 days of Keflex. No dressing changes until outpatient follow-up with peritoneal dialysis nurse. Severe hypocalcemia, hypophosphatemia and elevated PTH likely secondary hyperparathyroidism. improved Replete calcium and continue phosphate binders. on calcitrol 1 mcg daily Right great toe wound Toe xray>neg for osteomyelitis but possible small foreign body seen by general surgery, local wound exploration at bedside and was unable to identify any foreign body likely has already fallen out as it was very superficial. vascular surgery consultation> plan for likely vascular intervention outpatient as pt is just starting dialysis Continue local wound care as per wound care nurse recommendations Prolonged QT secondary to hypocalcemia. Telemetry. Continue calcium supplementation. Continue to monitor QT - improved under 500 Metabolic acidosis secondary to renal failure. improved s/p IV fluids now on dialysis Time Attestation Discharge Coordination Time (in mins): 40 Quality: Safe Use of Opioids Does Pt have an Active Cancer Diagnosis on the Problem List?: No Quality: Stroke Does the patient have a stroke diagnosis?: No Physical Exam Vital Signs: Vital Signs: Last Vital Signs Temp 97.3 F 09/13/23 08:00 Pulse 62 09/13/23 08:24 Resp 12 09/13/23 08:00 BP 151/70 H 09/13/23 08:24 Pulse Ox 98 09/13/23 08:00 O2 Del Method Room Air 09/13/23 08:00 O2 Flow Rate 2 09/12/23 15:10 BMI result Body Mass Index 27.2 Const: General: cooperative, comfortable, no acute distress, alert and awake Nutritional Appearance: average body habitus Orientation/consciousness: patient oriented x3 Resp: Effort & Inspection: normal respiratory effort, able to speak in complete sentences and no respiratory distress Cardio: Rate: regular rate GI: Other: Peritoneal dialysis catheter in place covered in dry dressing Inspection: No distended Palpation (GI): Soft to palpation and nontender Skin: Other: PermCath present right anterior chest wall, no surrounding erythema right great toe ulcer no surrounding erythma Neuro: General: patient oriented x3, moves all extremities and CN's II-XI intact bilaterally Extrem: General: Yes no pedal edema DS: Data Data Completed and Pending Completed studies during hospitalization [Text1]: Procedures Detachment at Left 1st Toe, Complete, Open Approach (08/18/20) Insertion of Endotracheal Airway into Trachea, Via Natural or Artificial Opening Endoscopic (08/18/20) Insertion of Infusion Device into Superior Vena Cava, Percutaneous Approach (08/18/20) Respiratory Ventilation, 24-96 Consecutive Hours (08/18/20) Transfusion of Nonautologous Red Blood Cells into Peripheral Vein, Percutaneous Approach (07/23/23) Labs on day of discharge: Laboratory Results - last 24 hr 09/12/23 09/12/23 09/12/23 16:30 19:15 20:48 WBC 6.1 RBC 3.24 L Hgb 9.2 L Hct 28.7 L MCV 88.6 MCH 28.4 MCHC 32.1 RDW 15.3 Plt Count 108 L MPV 10.3 Absolute Nucleated RBC 0.000 Nucleated RBC % (auto) 0.0 POC Glucose 118 H 195 H 09/13/23 09/13/23 07:23 10:05 WBC 6.2 RBC 2.91 L Hgb 8.1 L Hct 26.0 L MCV 89.3 MCH 27.8 MCHC 31.2 RDW 15.3 Plt Count 110 L MPV 10.8 Absolute Nucleated RBC 0.000 Nucleated RBC % (auto) 0.0 POC Glucose 85 Discharge Plan Discharge Anticipated Discharge Date/Time: 09/13/23 16:15 Patient Disposition: Home Health Service Discharge Diagnosis: End-stage renal disease now on dialysis Right great toe diabetic foot wound Referrals: [facility] [Other] - 1 Week Jean Claude Bowden MD [Physician] - 1 Week David Butler MD [Physician] - 1 Week Senait Pal MD [Primary Care Provider] - 1 Week Discharge Medications: New Antacid Ext Str (calcium carb) 300 mg (750 mg) Tablet,Chewable 2.5 tab PO TID 30 Days Qty: 225 0RF omeprazole 20 mg Capsule,Delayed Release(Dr/Ec) 20 mg PO DAILY@0630 30 Days Qty: 30 0RF calcitriol 0.25 mcg Capsule 1 mcg PO DAILY 30 Days Qty: 120 0RF cephalexin 500 mg tablet 500 mg PO Q12H 7 Days Qty: 14 0RF Continued cilostazol 100 mg tablet 100 mg PO BID@1200,2100 ferrous sulfate 325 mg (65 mg iron) tablet 1 tab PO QAM aspirin 81 mg tablet,delayed release (DR/EC) 81 mg PO DAILY@1200 atorvastatin 80 mg tablet 80 mg PO BEDTIME montelukast 10 mg tablet 10 mg PO BEDTIME cetirizine 5 mg tablet 5 mg PO DAILY PRN (Reason: allergies) budesonide-formoterol 160-4.5 mcg/actuation HFA aerosol inhaler 2 puff INHALATION BID Incruse Ellipta 62.5 mcg/actuation blister with device 1 inh INHALATION QAM insulin degludec [Tresiba FlexTouch U-100] 100 unit/mL (3 mL) insulin pen 13 unit subcut DAILY Rx Instructions: patient stated she takes this in the morning hydralazine 10 mg Tablet 10 mg PO TID Qty: 270 0RF Protocol: Hold for SBP< HOLD for SBP < : 90 carvedilol 12.5 mg Tablet 12.5 mg PO BID Qty: 180 0RF Protocol: Hold for SBP/HR < HOLD for SBP < : 90 HOLD for HR < : 60 isosorbide mononitrate 30 mg Tablet Extended Release 24 Hr 30 mg PO DAILY Qty: 180 0RF Protocol: Hold for SBP< HOLD for SBP < : 90 Farxiga 5 mg tablet 5 mg PO DAILY Tradjenta 5 mg tablet 5 mg PO DAILY@1200 cholecalciferol (vitamin D3) 50 mcg (2,000 unit) tablet 50 mcg PO DAILY sertraline 25 mg tablet 25 mg PO DAILY levothyroxine 150 mcg tablet 150 mcg PO DAILY ondansetron HCl 4 mg tablet 4 mg PO DAILY PRN (Reason: nausea and vomiting) Qty: 10 0RF Discontinued calcitriol 0.25 mcg capsule 0.25 mcg PO BID Qty: 60 5RF calcium carbonate [Calcium Antacid] 200 mg calcium (500 mg) tablet,chewable 200 mg PO TID@1200,1800,2100 furosemide [Lasix] 80 mg tablet 80 mg PO QAM Qty: 90 0RF insulin aspart U-100 [Novolog FlexPen U-100 Insulin] 100 unit/mL (3 mL) insulin pen 5 unit subcut TIDAC potassium chloride 20 mEq tablet,ER particles/crystals 20 meq PO DAILY@1800 No Action (DME) lancets [TRUEplus Lancets] 33 gauge misc See Rx Instructions topical .MEDSUPPLY Qty: 100 Rx Instructions: As directed (DME) FreeStyle Lite Strips Strip See Rx Instructions Not Applicable .MEDSUPPLY Qty: 10 Rx Instructions: As directed (DME) pen needle, diabetic [Pentips] 32 gauge x 5/32 needle See Rx Instructions .ROUTE QID Qty: 50 Rx Instructions: As directed once a day Discharge Orders: Discharge Order (Routine); Ordered 09/13/23 Ordered By: Akilah Sargent Activity on Discharge: As tolerated Stand Alone Forms: Patient Portal Discharge page Print Language: Tamazight Activity Restrictions/Additional Instructions: Topical Wound Care Recommendations: Right Great Toe - Elevate lower legs off of surface of bed with use of pillows.? Cleanse with normal saline, pat dry. ?Apply barrier wipe to the immediate quiana wound, apply thick layer of Santyl to entire wound bed, cover with xeroform, secure dry gauze, and gauze wrap, change Daily. Wound Clinic Follow up Recommend follow up out patient Wound Clinic at [address] [place] [address] and to call for an appointment at time of discharge. [phone].? Dr Butler Follow up Recommend Dr. Butler Vascular Surgeon for outpatient follow up.? His office is located at [address] [place] [address] [id number], [place] [address], call for an appointment at diann of discharge [phone] Care Plan Goals: See below Health Concerns: End-stage renal disease/uremia now on dialysis Hypocalcemia, hypophosphatemia Right great toe wound Prolonged QTC. Resolved Plan of Treatment: Dialysis- Saturday, Saturday, Saturday, 2nd shift in [place] Outpatient follow-up with the Wound Clinic as well as vascular surgery Wound care instructions as above Medication adjustments as above Keep peritoneal dialysis catheter dressing dry and in place until follow-up with peritoneal dialysis nurse next week Keep PermCath dry Assessment: See discharge summary
[2023-09-13 14:03] LABS: Glucose, Whole Blood 114 mg/dL (60-115)
--- NOTE | 2023-09-13 14:31 | P.PNNP_ITS ---
Subjective Subjective Date of Service: 09/13/23 Interval history: seen and examined this morning; Events noted. All recent data reviewed; D/W hospitalist Physical Exam 2 Vital Signs: Vital Signs: Last Vital Signs Temp 97.3 F 09/13/23 08:00 Pulse 62 09/13/23 08:24 Resp 12 09/13/23 08:00 BP 151/70 H 09/13/23 08:24 Pulse Ox 98 09/13/23 08:00 O2 Del Method Room Air 09/13/23 08:00 O2 Flow Rate 2 09/12/23 15:10 BMI result Body Mass Index 27.2 Const: General: no acute distress Eyes: EOM: EOMs intact bilaterally Resp: Auscultation: diminished lung sounds Cardio: Rate: regular rate GI: Other: PD catheter + Neuro: General: moves all extremities Objective Data Labs 09/13/23 10:05 09/12/23 06:00 Labs: Laboratory Results - last 24 hr 09/12/23 09/12/23 09/12/23 16:30 19:15 20:48 WBC 6.1 RBC 3.24 L Hgb 9.2 L Hct 28.7 L MCV 88.6 MCH 28.4 MCHC 32.1 RDW 15.3 Plt Count 108 L MPV 10.3 Absolute Nucleated RBC 0.000 Nucleated RBC % (auto) 0.0 POC Glucose 118 H 195 H 09/13/23 09/13/23 09/13/23 07:23 10:05 13:59 WBC 6.2 RBC 2.91 L Hgb 8.1 L Hct 26.0 L MCV 89.3 MCH 27.8 MCHC 31.2 RDW 15.3 Plt Count 110 L MPV 10.8 Absolute Nucleated RBC 0.000 Nucleated RBC % (auto) 0.0 POC Glucose 85 114 Procedures Date of Service Date of Service: 09/13/23 Assessment & Plan Assessment and plan (1) ESRD needing dialysis: Status: Acute Plan Iris had CKD 5 & now has end stage renal disease. Had signs and symptoms suggestive of uremia. Initiated on HD ; For HD today As an outpatient she wants to have peritoneal dialysis S/P PD catheter insertion on by Dr. Vogel Watch hemoglobin and we will administer Epogen as needed Outpatient HD arranged in [facility] MWF 2nd shift ( Lead Enterprise Architect Serenity Pope RN) PD RN in [facility] will flush PD catheter Can be D/Hal home if there is no continued bleeding from PD catheter site Progress Note: Quality Stroke Does the patient have a stroke diagnosis?: No
[2023-09-13] MEDS: cephALEXin 500 MG CAPSULE PO (14:48)
--- NOTE | 2023-09-13 16:10 | MHC.CM.PN ---
Pt is set up with HD MWF second shift at [facility] Geovanny Ortega. She is scheduled to go there Saturday at 10:15am, family will transport her there.
[2023-09-13 16:37] LABS: Glucose, Whole Blood 146 mg/dL (60-115)
== END 2023-09-13 16:37 | disposition home health service (06) | DRG 291 ==
LOC: HO.ED 23:32 → HO.EDOVER 23:49 → HO.IMC 09-08 09:00
PROVIDERS: Internal Medicine Hypertension Specialist; Nurse Practitioner Acute Care; Radiology Vascular & Interventional Radiology; Student in an Organized Health Care Education/Training Program; Admitting Provider Internal Medicine; Emergency Provider Student in an Organized Health Care Education/Training Program; PCP Family Medicine; Visit Provider Physician Assistant Medical
PROC: 0JH63XZ Insertion of Tunneled Vascular Access Device into Chest Subcutaneous Tissue and Fascia, Percutaneous Approach (ICD-10-PCS; principal; 2023-09-09 11:00)
PROC: 0WHG33Z Insertion of Infusion Device into Peritoneal Cavity, Percutaneous Approach (ICD-10-PCS; principal; 2023-09-12 13:00)
DX: I13.2 Hypertensive heart and chronic kidney disease with heart failure and with stage 5 chronic kidney disease, or end stage renal disease (principal); N18.6 End stage renal disease; E87.21 Acute metabolic acidosis; I50.22 Chronic systolic (congestive) heart failure; E11.51 Type 2 diabetes mellitus with diabetic peripheral angiopathy without gangrene; L97.519 Non-pressure chronic ulcer of other part of right foot with unspecified severity; I70.235 Atherosclerosis of native arteries of right leg with ulceration of other part of foot; E78.5 Hyperlipidemia, unspecified; I25.10 Atherosclerotic heart disease of native coronary artery without angina pectoris; J44.9 Chronic obstructive pulmonary disease, unspecified; E11.22 Type 2 diabetes mellitus with diabetic chronic kidney disease; E87.6 Hypokalemia; D63.1 Anemia in chronic kidney disease; M79.5 Residual foreign body in soft tissue; E03.8 Other specified hypothyroidism; E21.3 Hyperparathyroidism, unspecified; Z20.822 Contact with and (suspected) exposure to COVID-19; Z85.850 Personal history of malignant neoplasm of thyroid; Z79.4 Long term (current) use of insulin; Z79.82 Long term (current) use of aspirin; Z79.890 Hormone replacement therapy; Z79.899 Other long term (current) drug therapy
CPT/HCPCS: 36415; 36558; 49418; 71045; 71046; 73660; 76937; 80048; 80053; 80061; 81001; 82306; 82330; 82728; 82803; 82947; 82985; 83036; 83540; 83690; 83735; 83880; 83970; 84100; 84443; 84466; 85025; 85027; 85610; 85652; 86140; 86704; 86706; 87340; 87635; 90999; 93005; 93926; 99152; 99153; 99212; 99285; C1750; C1752; C1769; C1894; J0613; J1644; J2405; J3480

== ENCOUNTER → 2023-09-07 21:07 | Outpatient (BNV) | payer OTHER, SELFPAY | PROVIDERS: Admitting Provider Internal Medicine; Emergency Provider Student in an Organized Health Care Education/Training Program; PCP Family Medicine; Visit Provider Internal Medicine Cardiovascular Disease | DX: I45.81 Long QT syndrome (principal) | CPT/HCPCS: 93010 ==

== ENCOUNTER 2023-09-07 23:41 | Outpatient (BNV) | payer OTHER, SELFPAY | END 2023-09-11 10:54 | PROVIDERS: Admitting Provider Internal Medicine; Emergency Provider Student in an Organized Health Care Education/Training Program; PCP Family Medicine; Visit Provider Internal Medicine Cardiovascular Disease | DX: I49.1 Atrial premature depolarization (principal) | CPT/HCPCS: 93010 ==

== ENCOUNTER 2023-09-07 23:41 | Outpatient (BNV) | payer OTHER, SELFPAY | END 2023-09-12 13:00 | PROVIDERS: Admitting Provider Internal Medicine; Emergency Provider Student in an Organized Health Care Education/Training Program; PCP Family Medicine; Visit Provider Radiology Vascular & Interventional Radiology | DX: N18.6 End stage renal disease (principal) | CPT/HCPCS: 49418 ==

== ENCOUNTER 2023-09-07 23:41 | Outpatient (BNV) | payer OTHER, SELFPAY | END 2023-09-08 06:00 | PROVIDERS: Admitting Provider Internal Medicine; Emergency Provider Student in an Organized Health Care Education/Training Program; PCP Family Medicine; Visit Provider Internal Medicine Cardiovascular Disease | DX: I45.81 Long QT syndrome (principal) | CPT/HCPCS: 93010 ==

== ENCOUNTER 2023-09-07 23:41 | Outpatient (BNV) | payer OTHER, SELFPAY | END 2023-09-08 11:00 | PROVIDERS: Admitting Provider Internal Medicine; Emergency Provider Student in an Organized Health Care Education/Training Program; PCP Family Medicine; Visit Provider Physician Assistant Surgical | DX: N18.6 End stage renal disease (principal) | CPT/HCPCS: 36558; 76937; 77001 ==

== ENCOUNTER → 2023-09-07 23:41 | Outpatient (BNV) | payer OTHER, SELFPAY | PROVIDERS: Admitting Provider Internal Medicine; Emergency Provider Student in an Organized Health Care Education/Training Program; PCP Family Medicine; Visit Provider Surgery | DX: S90.454A Superficial foreign body, right lesser toe(s), initial encounter (principal) | CPT/HCPCS: 99222 ==

== ENCOUNTER → 2023-09-07 23:41 | Outpatient (BNV) | payer OTHER, SELFPAY | PROVIDERS: Admitting Provider Internal Medicine; Emergency Provider Student in an Organized Health Care Education/Training Program; PCP Family Medicine; Visit Provider Internal Medicine Hypertension Specialist | DX: N18.5 Chronic kidney disease, stage 5 (principal) | CPT/HCPCS: 90935; 99232; 99499 ==

== ENCOUNTER → 2023-09-07 23:41 | Outpatient (BNV) | payer OTHER, SELFPAY | PROVIDERS: Admitting Provider Internal Medicine; Emergency Provider Student in an Organized Health Care Education/Training Program; PCP Family Medicine; Visit Provider Surgery Vascular Surgery | DX: I73.9 Peripheral vascular disease, unspecified (principal) | CPT/HCPCS: 99222; 99232 ==

== ENCOUNTER → 2023-09-07 23:41 | Outpatient (BNV) | payer OTHER, SELFPAY | PROVIDERS: Admitting Provider Internal Medicine; Emergency Provider Student in an Organized Health Care Education/Training Program; PCP Family Medicine; Visit Provider Internal Medicine | DX: N18.6 End stage renal disease (principal); Z99.2 Dependence on renal dialysis | CPT/HCPCS: 99223; 99232; 99239 ==

== ENCOUNTER 2023-09-26 13:10 | Outpatient (REF) | payer OTHER, SELFPAY ==
--- NOTE | ~2023-09-26 | MR_ITS ---
EXAMINATION: MR FOOT WITHOUT AND WITH CONTRAST, RIGHT CLINICAL INFORMATION: Great toe wound COMPARISON: Radiographs 09/10/2023 TECHNIQUE: MRI of the right foot was performed before and after the intravenous administration of 6 mL Gadavist on a high-field scanner. FINDINGS: Small soft tissue ulcer at the medial aspect of the great toe. There is subcutaneous edema and enhancement compatible with cellulitis. No abscess. Marrow edema and enhancement with slight loss of T1 fatty marrow signal, most prominent involving the proximal/medial aspect of the distal phalanx, is compatible with osteomyelitis. No evidence to suggest osteomyelitis elsewhere. Visualized flexor and extensor tendons appear intact. No metatarsal stress reaction or fracture. MR/MR foot RT wo/w con IMPRESSION: Soft tissue ulcer at the medial aspect of the great toe with underlying cellulitis and osteomyelitis of the distal phalanx. No abscess.
[2023-09-26] MEDS: gadobutroL 7.5 ML VIAL IVPUSH (14:16)
== END 2023-09-26 13:11 | disposition home or self-care (01) ==
LOC: HO.MRI 13:10
PROVIDERS: PCP Family Medicine; Visit Provider Family Medicine
DX: S91.101D Unspecified open wound of right great toe without damage to nail, subsequent encounter (principal)
CPT/HCPCS: 73720; A9585

== ENCOUNTER 2023-09-30 15:23 | Outpatient (AMB) | payer OTHER, SELFPAY ==
--- NOTE | 2023-09-30 15:26 | A.OFFVIS_ITS ---
Vital Signs 3 09/30/23 15:42 Weight 137 lb Pulse 88 Pulse Source Pulse Oximeter Temp 98.5 F Temp Source Oral Pulse Oximetry (%) 99 Oxygen Delivery Method Room Air Intake Visit Reasons: reff.sakurai/osteo on toe mri Allergies ALLSYSA Inhibitors [ALLYSSA INHIBITORS] Allergy (Mild, Verified 09/30/23 15:43) COUGH cilostazol [CILOSTAZOL] Allergy (Mild, Verified 09/30/23 15:43) COUGH HPI HPI reff.sakurai/osteo on toe mri: Details: She presents for OM right great toe. She is on hemodialysis every , Sat ,Saturday. She has no injury to area. [facility] Medical History Osteomyelitis CHF exacerbation Anemia CKD (chronic kidney disease) stage 5, GFR less than 15 ml/min Hypocalcemia Nicotine dependence, cigarettes, uncomplicated Atherosclerotic cardiovascular disease Thyroid cancer (~2008) 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) Hypothyroidism associated with surgical procedure (~2008) Uncontrolled type 2 diabetes mellitus with hyperglycemia (~1986) Pneumonitis ARDS (adult respiratory distress syndrome) Neuropathy Asthma-COPD overlap syndrome Anemia HTN (hypertension) Hypercholesteremia Surgical History History of thyroidectomy History of back surgery History of 2 sections History of angioplasty History of amputation of left great toe Family History Mother Hypertension Diabetes Father AA (alcohol abuse) Social History Household Members: Family Housing: Apartment Do you presently have 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 or 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) Alcohol intake: never 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 Tobacco Use Status: Former Tobacco user Years Smoked: 45 Advance Directives Date on File: 09/13/20 service: No Current occupational status: disabled Review of Systems Const All systems reviewed & are unremarkable except as noted in HPI and below Physical Exam Vital Signs: Last Vital Signs Temp 98.5 F 09/30/23 15:42 Pulse 88 09/30/23 15:42 Pulse Ox 99 09/30/23 15:42 Oxygen Delivery Method Room Air 09/30/23 15:42 Const Other: General: cooperative Orientation/consciousness: patient oriented x3 HEENT Head: Yes normal to inspection Mouth: Normal oral and palatal mucosa present Eyes General: appearance normal, both eyes and all related structures Pupils: Equal, round and reactive pupils present Resp Effort & Inspection: normal respiratory effort Cardio Rate: regular rate Rhythm: regular rhythm GI Palpation (GI): Soft to palpation and nontender General: Yes no CVA tenderness Back/Spine/Pelvis Back: no CVA tenderness Skin General skin exam: no rashes or lesions noted Neuro General: patient oriented x3 Cranial nerves: Yes CN's II-XII intact bilaterally and Yes Equal, round and reactive pupils present Extrem Other: right great toe OM Psych Appearance: grossly normal Assessment & Plan Assessment & Plan (1) Osteomyelitis: Comment: She has no MRSA history Code(s): M86.9 - Osteomyelitis, unspecified Category: Medical Plan: Ertapenem 500 mg IV after every dialysis 6 week treatment. (2) ESRD needing dialysis: Code(s): N18.6 - End stage renal disease; Z99.2 - Dependence on renal dialysis Category: Medical Plan: na Medications: New 2 ertapenem give after each dialysis (, , Saturday) 0.5 grams IV .,,sat 6 weeks 18 ea 0RF M86.9 - Osteomyelitis, unspecified ertapenem give after each dialysis (, , Saturday) 0.5 grams IV .,,sat 18 ea 0RF 6 weeks M86.9 - Osteomyelitis, unspecified ertapenem give after each dialysis (, , Saturday) 0.5 grams IV .,,sat 6 weeks 18 ea 0RF M86.9 - Osteomyelitis, unspecified Coding Level of Care Code New Pt Level 3 (72587) Diagnoses Osteomyelitis M86.9 ESRD needing dialysis N18.6; Z99.2
[2023-09-30 15:42] VITALS: PULSE 88; TEMP 36.9; O2SAT 99
== END 2023-09-30 16:02 | disposition home or self-care (01) ==
LOC: HO.HID 15:23
PROVIDERS: PCP Family Medicine; Visit Provider Internal Medicine
DX: M86.9 Osteomyelitis, unspecified (principal); N18.6 End stage renal disease; Z99.2 Dependence on renal dialysis
CPT/HCPCS: 99203

== ENCOUNTER → 2023-09-30 15:23 | Outpatient (BNVA) | payer OTHER, SELFPAY | PROVIDERS: PCP Family Medicine; Visit Provider Internal Medicine | DX: M86.9 Osteomyelitis, unspecified (principal); N18.6 End stage renal disease; Z99.2 Dependence on renal dialysis | CPT/HCPCS: 99202 ==

== ENCOUNTER 2023-10-01 08:50 | Outpatient (REF) | payer OTHER, SELFPAY | END 2023-10-01 08:51 | disposition home or self-care (01) | LOC: HO.RADIR 08:50 | PROVIDERS: Visit Provider Physician Assistant Surgical | DX: Z13.89 Encounter for screening for other disorder (principal) ==

== ENCOUNTER → 2023-10-14 16:01 | Outpatient (BNVA) | payer OTHER, SELFPAY | PROVIDERS: PCP Family Medicine; Visit Provider Internal Medicine Hypertension Specialist ==

== ENCOUNTER → 2023-10-17 | Outpatient (BNV) | payer OTHER, SELFPAY | PROVIDERS: PCP Family Medicine; Visit Provider Internal Medicine Hypertension Specialist | DX: N18.6 End stage renal disease (principal) | CPT/HCPCS: 90962 ==

== ENCOUNTER 2023-11-04 08:41 | Day surgery (SDC) | payer OTHER, SELFPAY ==
--- NOTE | ~2023-11-04 | IR_ITS ---
CLINICAL HISTORY: IV antibiotics. End-stage renal disease on hemodialysis. PROCEDURES: 1. Real-time ultrasound guided access into the right external jugular vein after documentation of selective vessel patency, and permanent imaging storing in the patient records. 2. Placement of a 6 Fr, 24 cm tunneled, dual-lumen power injectable Lund CLINICIAN: Noe Mason PA-C MEDICATIONS: -Lidocaine 1% 10 ml, SQ. -Additional details, please see nursing flowsheet. Complications: None. Estimated blood loss: <5 ml Specimens: None. Contrast: None. Fluoroscopy time: 5.7 min PROCEDURE NOTE: The procedure, risks, benefits, and alternatives were carefully explained to the patient and written informed consent was obtained. The patient was placed supine on the fluoroscopy table. A timeout was performed. The right neck and chest was prepped and draped in usual sterile fashion. Local anesthesia was administered to the right neck access site with lidocaine. Under ultrasound guidance, the right external jugular vein was accessed with a 5 fr micropuncture set. A permanent ultrasound picture was saved. A peel-away sheath was advanced over the wire. The catheter was measured and cut to length. Next, subcutaneous lidocaine was administered to the chest. Using blunt dissection, a subcutaneous tunnel was created that connects from the upper chest to the venotomy site. The catheter was pulled through the tunnel. The catheter was advanced through the sheath, which was subsequent peeled away. The catheter was tested, flushed, and sutured to the skin with its tip in the cavoatrial junction. The venotomy site was closed with surgical glue. A dry sterile dressing was applied to the chest and the venotomy site. A permanent chest fluoroscopic image was saved demonstrating the catheter tip in the cavoatrial junction. The patient was stable after the procedure was transferred back to the floor. IR/IR cvc insert central tunnel IMPRESSION: Placement of a tunneled dual-lumen Lund catheter PLAN: -The catheter may be used immediately. This procedure was performed by Noe Mason PA-C, and supervised by Dr. Crain Electronically signed by: Herrera Crain MD 11/08/2023 11:06 AM EDT
[2023-11-04 09:12] VITALS: BMI 27.5
[2023-11-04 09:30] LABS: Glucose, Whole Blood 111 mg/dL (60-115)
[2023-11-04 11:30] VITALS: BP 141/57; PULSE 65; RESP 18; TEMP 36.2; O2SAT 97
[2023-11-04 11:45] VITALS: BP 139/60; PULSE 68; RESP 16; TEMP 36.2; O2SAT 98
== END 2023-11-04 11:54 | disposition home or self-care (01) ==
PROVIDERS: Radiology Vascular & Interventional Radiology; PCP Family Medicine; Visit Provider Internal Medicine
DX: M86.9 Osteomyelitis, unspecified (principal); I12.0 Hypertensive chronic kidney disease with stage 5 chronic kidney disease or end stage renal disease; E11.22 Type 2 diabetes mellitus with diabetic chronic kidney disease; N18.6 End stage renal disease; Z99.2 Dependence on renal dialysis
CPT/HCPCS: 36558; 82947; C1751; C1769; J0690; J1644

== ENCOUNTER → 2023-11-04 10:00 | Outpatient (BNV) | payer OTHER, SELFPAY | PROVIDERS: PCP Family Medicine; Visit Provider Radiology Diagnostic Radiology | DX: N18.6 End stage renal disease (principal) | CPT/HCPCS: 36558; 76937; 77001; 99499 ==

== ENCOUNTER 2023-11-04 12:01 | Outpatient (RCR) | payer OTHER, SELFPAY ==
[2023-11-04 12:12] VITALS: BP 144/63; PULSE 65; RESP 16; TEMP 35.9; O2SAT 99
[2023-11-04] MEDS: Ertapenem Sodium 0.5 GM in 0.9 % Sodium Chloride 50 ML IV (13:15)
--- NOTE | 2023-11-04 13:17 | HO.INF ---
PATIENT ARRIVED FROM IR WITH HILL IN PLACE. PRODUCT CODE- [id number]. DRESSING CLEAN, DRY AND INTACT. DENIES ALL PAIN.
[2023-11-04] MEDS: 0.9 % Sodium Chloride Flush 10 ML SYRINGE 5 ML IVFLUSH (13:54)
== END 2023-11-04 14:03 | disposition home or self-care (01) ==
LOC: HO.INF 12:01
PROVIDERS: Visit Provider Internal Medicine
DX: M86.9 Osteomyelitis, unspecified (principal)
CPT/HCPCS: 96365; J1335

== ENCOUNTER 2023-11-13 15:08 | Outpatient (REF) | payer OTHER, SELFPAY ==
[2023-11-13 15:20] LABS: MANUAL DIFF FLAG NO
[2023-11-13 15:33] LABS: Basophils Absolute Auto 0.1 X10*3/uL (0.0-0.2); Basophils Percent Auto 0.7 % (0-2); Eosinophils Absolute Auto 0.4 X10*3/uL (0.0-0.4); Eosinophils Percent Auto 4.1 % (0-4); Hematocrit 33.2 % (37.0-47.0); Hemoglobin 10.5 g/dl (12.0-16.0); Imm Gran Abs Auto 0.03 X10*3/uL (0.00-0.03); Imm Gran Pct Auto 0.3 % (0.0-0.4); Lymphocytes Absolute Auto 1.4 X10*3/uL (1.2-4.9); Lymphocytes Percent Auto 14.6 % (20-40); Mean Corpuscular HGB Conc 31.6 g/dl (31.0-35.0); Mean Corpuscular Volume 94.9 fL (80.0-98.0); Mean Platelet Volume 10.1 fL (9.4-12.3); Monocytes Absolute Auto 1.2 X10*3/uL (0.1-1.2); Monocytes Percent Auto 12.9 % (2-11); Neutrophils Absolute Auto 6.3 x10*3/uL (2.0-8.3); Neutrophils Percent Auto 67.4 % (45-73); Platelet Count 122 X10*3/uL (160-400); Red Cell Distribution Width 15.9 % (11.0-16.0); White Blood Count 9.4 X10*3/uL (4.8-10.8)
[2023-11-13 16:09] LABS: Alanine Aminotransferase 19 U/L (0-31); Alkaline Phosphatase 86 U/L (39-117); Aspartate Amino Transferase 52 U/L (5-31); Bilirubin Direct < 0.2 mg/dL (0.0-0.5); Bilirubin Total 0.2 mg/dL (0.0-1.0); Estimated Glomerular Filt Rate 11; Total Protein 7.3 g/dL (6.5-8.0)
== END 2023-11-13 15:09 | disposition home or self-care (01) ==
LOC: HO.LAB 15:08
PROVIDERS: PCP Family Medicine; Visit Provider Internal Medicine
DX: M86.9 Osteomyelitis, unspecified (principal)
CPT/HCPCS: 36415; 80076; 82565; 85025

== ENCOUNTER → 2023-11-15 09:36 | Outpatient (BNVA) | payer OTHER, SELFPAY | PROVIDERS: PCP Family Medicine; Visit Provider Internal Medicine Hypertension Specialist ==

== ENCOUNTER 2023-11-20 | Outpatient (REF) | payer OTHER, SELFPAY | END 2023-11-20 00:01 | disposition home or self-care (01) | LOC: CF | PROVIDERS: PCP Family Medicine; Visit Provider Internal Medicine | DX: M86.9 Osteomyelitis, unspecified (principal) | CPT/HCPCS: 99212 ==

== ENCOUNTER 2023-11-20 15:09 | Outpatient (AMB) | payer OTHER, SELFPAY ==
--- NOTE | 2023-11-20 15:22 | A.OFFVIS_ITS ---
Intake Visit Reasons: follow up picc line Extension Course Coordinator Required: Yes Extension Course Coordinator Language: Chin Strap Cutter Services: Extension Course Coordinator Present Extension Course Coordinator Name: Eduardo Information Interpreted: non-clinical & clinical Allergies ALLYSSA Inhibitors [ALLYSSA INHIBITORS] Allergy (Mild, Verified 11/20/23 15:22) COUGH cilostazol [CILOSTAZOL] Allergy (Mild, Verified 11/20/23 15:22) COUGH HPI HPI follow up picc line: Details: She is taking Ertapenem .5 g daily for OM right great toe. She has no complaints COUNTS INCLUDE 234 BEDS AT THE [facility] Medical History Osteomyelitis CHF exacerbation Anemia CKD (chronic kidney disease) stage 5, GFR less than 15 ml/min Hypocalcemia Nicotine dependence, cigarettes, uncomplicated Atherosclerotic cardiovascular disease Thyroid cancer (~2008) 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) Hypothyroidism associated with surgical procedure (~2008) Uncontrolled type 2 diabetes mellitus with hyperglycemia (~1986) Pneumonitis ARDS (adult respiratory distress syndrome) Neuropathy Asthma-COPD overlap syndrome Anemia HTN (hypertension) Hypercholesteremia Surgical History History of thyroidectomy History of back surgery History of 2 sections History of angioplasty History of amputation of left great toe Family History Mother Hypertension Diabetes Father AA (alcohol abuse) Social History Household Members: Family Housing: Apartment Do you presently have 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 or other home services: Yes (EXCHANGE 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 See in followup Coding Level of Care Code Est Pt Level 3 (72365) Diagnoses Osteomyelitis M86.9
== END 2023-11-20 15:41 | disposition home or self-care (01) ==
LOC: HO.HID 15:09
PROVIDERS: PCP Family Medicine; Visit Provider Internal Medicine
DX: M86.9 Osteomyelitis, unspecified (principal)
CPT/HCPCS: 99213

== ENCOUNTER 2023-12-03 16:00 | Outpatient (REF) | payer OTHER, SELFPAY ==
[2023-12-03 16:05] LABS: MANUAL DIFF FLAG NO
[2023-12-03 16:19] LABS: Basophils Absolute Auto 0.1 X10*3/uL (0.0-0.2); Basophils Percent Auto 0.7 % (0-2); Eosinophils Absolute Auto 0.2 X10*3/uL (0.0-0.4); Eosinophils Percent Auto 2.2 % (0-4); Hematocrit 32.8 % (37.0-47.0); Hemoglobin 10.6 g/dl (12.0-16.0); Imm Gran Abs Auto 0.04 X10*3/uL (0.00-0.03); Imm Gran Pct Auto 0.4 % (0.0-0.4); Lymphocytes Absolute Auto 1.3 X10*3/uL (1.2-4.9); Lymphocytes Percent Auto 11.4 % (20-40); Mean Corpuscular HGB Conc 32.3 g/dl (31.0-35.0); Mean Corpuscular Hemoglobin 29.9 pg (27.0-33.0); Mean Corpuscular Volume 92.4 fL (80.0-98.0); Mean Platelet Volume 10.7 fL (9.4-12.3); Monocytes Absolute Auto 1.2 X10*3/uL (0.1-1.2); Monocytes Percent Auto 10.7 % (2-11); Neutrophils Absolute Auto 8.2 x10*3/uL (2.0-8.3); Neutrophils Percent Auto 74.6 % (45-73); Platelet Count 179 X10*3/uL (160-400); Red Blood Count 3.55 X10*6/uL (4.20-5.50); Red Cell Distribution Width 14.7 % (11.0-16.0)
[2023-12-03 17:03] LABS: Estimated Glomerular Filt Rate 10
== END 2023-12-03 16:01 | disposition home or self-care (01) ==
LOC: HO.LNP 16:00
PROVIDERS: Visit Provider Internal Medicine
DX: M86.9 Osteomyelitis, unspecified (principal)
CPT/HCPCS: 82565; 85025

== ENCOUNTER 2023-12-18 11:27 | Outpatient (REF) | payer OTHER, SELFPAY ==
[2023-12-18 11:34] LABS: MANUAL DIFF FLAG NO
[2023-12-18 11:57] LABS: Basophils Absolute Auto 0.1 X10*3/uL (0.0-0.2); Basophils Percent Auto 1.3 % (0-2); Eosinophils Absolute Auto 0.3 X10*3/uL (0.0-0.4); Eosinophils Percent Auto 3.9 % (0-4); Hematocrit 36.6 % (37.0-47.0); Hemoglobin 11.7 g/dl (12.0-16.0); Imm Gran Abs Auto 0.01 X10*3/uL (0.00-0.03); Imm Gran Pct Auto 0.1 % (0.0-0.4); Lymphocytes Absolute Auto 1.8 X10*3/uL (1.2-4.9); Lymphocytes Percent Auto 25.6 % (20-40); Mean Corpuscular Hemoglobin 29.4 pg (27.0-33.0); Mean Platelet Volume 11.1 fL (9.4-12.3); Monocytes Absolute Auto 0.7 X10*3/uL (0.1-1.2); Monocytes Percent Auto 10.2 % (2-11); Neutrophils Absolute Auto 4.2 x10*3/uL (2.0-8.3); Neutrophils Percent Auto 58.9 % (45-73); Platelet Count 153 X10*3/uL (160-400); Red Blood Count 3.98 X10*6/uL (4.20-5.50); White Blood Count 7.2 X10*3/uL (4.8-10.8)
[2023-12-18 13:25] LABS: Estimated Glomerular Filt Rate 8
== END 2023-12-18 11:28 | disposition home or self-care (01) ==
LOC: HO.LNP 11:27
PROVIDERS: Visit Provider Internal Medicine
DX: M86.9 Osteomyelitis, unspecified (principal)
CPT/HCPCS: 82565; 85025

== ENCOUNTER 2023-12-23 14:11 | Outpatient (AMB) | payer OTHER, SELFPAY ==
[2023-12-23 14:12] VITALS: PULSE 60; TEMP 36.3; O2SAT 97; BMI 25.8
--- NOTE | 2023-12-23 14:12 | MHC.OFFVIS ---
Vital Signs 12/23/23 14:12 Height 5 ft Weight 132 lb BMI 25.8 Pulse 60 Pulse Source Pulse Oximeter Temp 97.4 F Temp Source Oral Pulse Oximetry (%) 97 Oxygen Delivery Method Room Air Intake Visit Reasons: follow up picc line Vice President Global Advertising Sales Required: Yes Vice President Global Advertising Sales Services: Vice President Global Advertising Sales Present Vice President Global Advertising Sales Name: Renato Jackson CMA Information Interpreted: clinical only Allergies ALLYSSA Inhibitors [ALLYSSA INHIBITORS] Allergy (Mild, Verified 12/23/23 14:12) COUGH cilostazol [CILOSTAZOL] Allergy (Mild, Verified 12/23/23 14:12) COUGH HPI HPI follow up picc line: Details: She is seen with electrical design technologist,Renato Ruggiero. She has no complaints. he has right OM,great toe. She has ESRD and is on HD. 12/15 was last antibiotic dose. [facility] Medical History Osteomyelitis CHF exacerbation Anemia CKD (chronic kidney disease) stage 5, GFR less than 15 ml/min Hypocalcemia Nicotine dependence, cigarettes, uncomplicated Atherosclerotic cardiovascular disease Thyroid cancer (~2008) 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) Hypothyroidism associated with surgical procedure (~2008) Uncontrolled type 2 diabetes mellitus with hyperglycemia (~1986) Pneumonitis ARDS (adult respiratory distress syndrome) Neuropathy Asthma-COPD overlap syndrome Anemia HTN (hypertension) Hypercholesteremia Surgical History History of thyroidectomy History of back surgery History of 2 sections History of angioplasty History of amputation of left great toe Family History Mother Hypertension Diabetes Father AA (alcohol abuse) Social History Household Members: Family Housing: Apartment Do you presently have 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) Alcohol intake: never 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 Tobacco Use Status: Former Tobacco user Years Smoked: 45 Advance Directives Date on File: 09/13/20 service: No Current occupational status: disabled Review of Systems Const All systems reviewed & are unremarkable except as noted in HPI and below Physical Exam Vital Signs: Last Vital Signs Temp 97.4 F 12/23/23 14:12 Pulse 60 12/23/23 14:12 Pulse Ox 97 12/23/23 14:12 Oxygen Delivery Method Room Air 12/23/23 14:12 BMI result Body Mass Index 25.8 Const General: cooperative HEENT Head: Yes normal to inspection Face and sinus: Yes normal facial exam Mouth: Normal oral and palatal mucosa present Teeth and gingiva: dentition normal Eyes General: appearance normal, both eyes and all related structures Pupils: Equal, round and reactive pupils present Resp Effort & Inspection: normal respiratory effort Cardio Rate: regular rate Rhythm: regular rhythm GI Palpation (GI): Soft to palpation and nontender General: Yes no CVA tenderness Back/Spine/Pelvis Back: no CVA tenderness Skin General skin exam: no rashes or lesions noted Neuro General: moves all extremities Cranial nerves: Yes Equal, round and reactive pupils present Extrem General: Yes normal to inspection Psych Appearance: grossly normal Assessment & Plan Assessment & Plan (1) Osteomyelitis: Comment: She is doing well Code(s): M86.9 - Osteomyelitis, unspecified Category: Medical Plan Followup with Wound Care. Coding Level of Care Code Est Pt Level 3 (30476) Diagnoses Osteomyelitis M86.9
== END 2023-12-23 14:36 | disposition home or self-care (01) ==
LOC: HO.HID 14:11
PROVIDERS: PCP Family Medicine; Visit Provider Internal Medicine
DX: M86.9 Osteomyelitis, unspecified (principal)
CPT/HCPCS: 99213

== ENCOUNTER → 2023-12-23 14:11 | Outpatient (BNVA) | payer OTHER, SELFPAY | PROVIDERS: PCP Family Medicine; Visit Provider Internal Medicine | DX: M86.9 Osteomyelitis, unspecified (principal); Z45.2 Encounter for adjustment and management of vascular access device | CPT/HCPCS: 99212 ==

== ENCOUNTER 2023-12-26 10:36 | Outpatient (REF) | payer OTHER, SELFPAY ==
[2023-12-26 10:39] LABS: MANUAL DIFF FLAG NO
[2023-12-26 11:04] LABS: Basophils Absolute Auto 0.1 X10*3/uL (0.0-0.2); Basophils Percent Auto 0.9 % (0-2); Eosinophils Absolute Auto 0.3 X10*3/uL (0.0-0.4); Eosinophils Percent Auto 3.9 % (0-4); Hematocrit 33.9 % (37.0-47.0); Hemoglobin 10.9 g/dl (12.0-16.0); Imm Gran Abs Auto 0.02 X10*3/uL (0.00-0.03); Imm Gran Pct Auto 0.3 % (0.0-0.4); Lymphocytes Absolute Auto 1.2 X10*3/uL (1.2-4.9); Lymphocytes Percent Auto 18.9 % (20-40); Mean Corpuscular HGB Conc 32.2 g/dl (31.0-35.0); Mean Corpuscular Hemoglobin 29.4 pg (27.0-33.0); Mean Corpuscular Volume 91.4 fL (80.0-98.0); Mean Platelet Volume 10.8 fL (9.4-12.3); Monocytes Absolute Auto 0.8 X10*3/uL (0.1-1.2); Monocytes Percent Auto 11.6 % (2-11); Neutrophils Absolute Auto 4.2 x10*3/uL (2.0-8.3); Neutrophils Percent Auto 64.4 % (45-73); Platelet Count 143 X10*3/uL (160-400); Red Blood Count 3.71 X10*6/uL (4.20-5.50); Red Cell Distribution Width 13.8 % (11.0-16.0); White Blood Count 6.5 X10*3/uL (4.8-10.8)
[2023-12-26 11:34] LABS: Estimated Glomerular Filt Rate 13
== END 2023-12-26 10:37 | disposition home or self-care (01) ==
LOC: HO.LNP 10:36
PROVIDERS: Visit Provider Internal Medicine
DX: M86.9 Osteomyelitis, unspecified (principal)
CPT/HCPCS: 82565; 85025

== ENCOUNTER 2023-12-31 12:58 | Outpatient (REF) | payer OTHER, SELFPAY | END 2023-12-31 12:59 | disposition home or self-care (01) | LOC: HO.RADIR 12:58 | PROVIDERS: Visit Provider Internal Medicine | DX: M86.9 Osteomyelitis, unspecified (principal) | CPT/HCPCS: 36589 ==

== ENCOUNTER → 2023-12-31 13:00 | Outpatient (BNV) | payer OTHER, SELFPAY | PROVIDERS: Visit Provider Physician Assistant Surgical | DX: N18.6 End stage renal disease (principal) | CPT/HCPCS: 36589 ==

== ENCOUNTER 2024-01-07 13:47 | Outpatient (AMB) | payer OTHER, SELFPAY ==
[2024-01-07 14:04] VITALS: BMI 25.8
--- NOTE | 2024-01-07 14:04 | A.OFFVIS_ITS ---
Vital Signs 01/07/24 14:04 Height 5 ft Weight 132 lb BMI 25.8 Intake Visit Reasons: Follow Up Arterial US Intake Note: follow up Arterial US 09/07/23 while admitted s/p Left Angio 07/10/23. Pt still has Right great toe wound. Pt does go to wound care and granddaughter does dressing changes daily. Uses barrier cream and foam in the wound bed. Accompanied by: Grand Child Allergies ALLYSSA Inhibitors [ALLYSSA INHIBITORS] Allergy (Mild, Verified 01/07/24 14:07) COUGH cilostazol [CILOSTAZOL] Allergy (Mild, Verified 01/07/24 14:07) COUGH HPI HPI Follow Up Arterial US: Details: Very pleasant 68-year-old female presents for follow-up regarding peripheral vascular disease. We had seen her in the past and she had undergone left lower extremity angiogram back in June of this year. She has a nonhealing ulcer on the right great toe. Unfortunately she has been in and out of the hospital. She had noninvasive right lower extremity testing on 09/10/2023. She now presents to us for vascular follow-up. [facility] Medical History Osteomyelitis CHF exacerbation Anemia CKD (chronic kidney disease) stage 5, GFR less than 15 ml/min Hypocalcemia Nicotine dependence, cigarettes, uncomplicated Atherosclerotic cardiovascular disease Thyroid cancer (~2008) 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) Hypothyroidism associated with surgical procedure (~2008) Uncontrolled type 2 diabetes mellitus with hyperglycemia (~1986) Pneumonitis ARDS (adult respiratory distress syndrome) Neuropathy Asthma-COPD overlap syndrome Anemia HTN (hypertension) Hypercholesteremia Surgical History History of thyroidectomy History of back surgery History of 2 sections History of angioplasty History of amputation of left great toe Family History Mother Hypertension Diabetes Father AA (alcohol abuse) Social History Household Members: Family Housing: Apartment Do you presently have 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 or 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) Alcohol intake: never 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 Tobacco Use Status: Former Tobacco user Years Smoked: 45 Advance Directives Date on File: 09/13/20 service: No Current occupational status: disabled Review of Systems Const All systems reviewed & are unremarkable except as noted in HPI and below Reports no additional complaints ENT Reports Normal hearing present Card Denies chest pain, Denies chest pain at rest, Denies chest pain with activity and Denies pedal edema Resp Denies cough GI Denies abdominal pain Musc Denies abnormal gait, Denies muscle cramps and Denies radiating pain into limb Skin/Breast Denies skin ulcer and Denies wounds Neuro Reports Normal hearing present and Denies abnormal gait Psych Reports no additional complaints Physical Exam Vital Signs: BMI result Body Mass Index 25.8 Const General: cooperative, healthy appearing and comfortable Orientation/consciousness: oriented to person, oriented to place and oriented to time HEENT Head: Yes normal to inspection Neck Neck: Yes normal visual inspection Carotids: no bruits Chest Chest palpation & inspection: normal inspection of the chest Resp Effort & Inspection: normal respiratory effort and able to speak in complete sentences Auscultation: clear to auscultation bilaterally, no crackles, no rales, no rhonchi and no wheezes Cardio Other: Bilateral DP signals Rate: regular rate Rhythm: regular rhythm Heart sounds: S1 normal heart sound present and S2 normal heart sound present Bruits: no carotid bruits Peripheral pulses: Peripheral pulses 2+ throughout GI Inspection: Yes normal to inspection Skin Other: Nonhealing right great toe ulcer Wounds: no wounds Hair: normal Neuro General: oriented to person, oriented to place and oriented to time Cranial nerves: Yes CN's II-XII intact bilaterally and Yes Normal hearing prese nt Cognition (Neuro): normal cognition Motor exam (neuro): 5/5 motor strength present throughout Extrem Other: venous exam: No significant superficial varicosities or spider telangiectasias, minimal edema General: No clubbing, No cyanosis and No edema Psych Appearance: grossly normal Mental Status: mental status grossly normal Speech and movement: Normal speech and movement present Results Reviewed Results Reviewed: Noninvasive arterial testing dated 09/10/2023 demonstrates monophasic flow with concerns of SFA disease. Assessment & Plan Assessment & Plan (1) PAD (peripheral artery disease): Comment: 06/27/2020 - left SFA atherectomy and stent, left popliteal plasty 07/10/2023 - left SFA plasty Code(s): I73.9 - Peripheral vascular disease, unspecified Category: Medical Plan: Patient notes nonhealing right lower extremity ulcer. I have discussed the pathophysiology of peripheral vascular disease with the patient. I have also discussed risk factor modification. I have reviewed the patient's arterial testing which reveals right SFA disease. the patient would benefit from a right leg endovascular peripheral angiogram with possible angioplasty, stent, and/or atherectomy. This has been discussed in detail with the patient along with risks, benefits, and complications. This includes but is not limited to bleeding, infection, heart attack, need for emergent surgical repair, limb ischemia, blood vessel damage, bleeding, puncture, kidney injury, bruising, allergic reaction, and skin reaction. The patient demonstrates a clear understanding. We will schedule for the next appropriate time. Thank you for allowing us to assist in this patient's care. Coding Level of Care Code Est Pt Level 4 (90039) Complex EM visit Add On G2211 Diagnoses PAD (peripheral artery disease) I73.9
== END 2024-01-07 14:45 | disposition home or self-care (01) ==
PROVIDERS: PCP Family Medicine; Visit Provider Surgery Vascular Surgery
DX: I73.9 Peripheral vascular disease, unspecified (principal)
CPT/HCPCS: 99214; G2211

== ENCOUNTER → 2024-01-07 13:47 | Outpatient (BNVA) | payer OTHER, SELFPAY | PROVIDERS: PCP Family Medicine; Visit Provider Surgery Vascular Surgery | DX: I73.9 Peripheral vascular disease, unspecified (principal) | CPT/HCPCS: 99212 ==

== ENCOUNTER 2024-01-11 13:39 | Outpatient (REF) | payer OTHER, SELFPAY ==
--- NOTE | ~2024-01-11 | MR_ITS ---
EXAMINATION: MRI OF THE BRAIN WITH AND WITHOUT IV CONTRAST INDICATION: New onset hearing loss COMPARISON: None available. TECHNIQUE: Multiplanar multisequence MR imaging of the brain was obtained without and following the administration of 6 mL of Gadavist without complication with dedicated IAC pulse series. FINDINGS: The inner ear structures including the cochlea, vestibules, and semicircular canals exhibit preserved CSF signal intensity with no pathologic enhancement. The vestibular aqueducts are not enlarged. Cranial nerves VII and VIII complexes are normal in morphology. No enhancing CP angle/retrocochlear lesion. There is a homogeneously enhancing extra-axial mass along the left frontal convexity which measures 1.7 x 1.0 cm and demonstrates dural tail. There is associated mass effect on the subjacent brain without definitive evidence of parenchymal edema. No acute intracranial hemorrhage or infarct. Scattered and confluent periventricular and deep white matter T2/FLAIR hyperintensities, nonspecific however commonly seen with small vessel ischemic disease. No midline shift or hydrocephalus. No acute extra-axial fluid collections. The osseous structures are unremarkable. The pituitary gland, pineal gland and remaining midline structures are unremarkable. No orbital pathology. Near complete opacification of the left sphenoid sinus. The mastoid air cells are clear. MR/MR head/brain wo/w con IMPRESSION: 1. No retrocochlear pathology. 2. Left frontal convexity meningioma causing mass effect on the subjacent brain without definitive evidence of parenchymal edema. 3. Chronic microangiopathy. 4. Left sphenoid sinus disease. Electronically signed by: Kari Bland MD 01/12/2024 08:12 AM EDT
[2024-01-11] MEDS: gadobutroL 7.5 ML VIAL IVPUSH (14:36)
== END 2024-01-11 13:40 | disposition home or self-care (01) ==
LOC: HO.MRI 13:39
PROVIDERS: PCP Family Medicine; Visit Provider Otolaryngology
DX: H91.22 Sudden idiopathic hearing loss, left ear (principal)
CPT/HCPCS: 70553; A9585

== ENCOUNTER 2024-01-17 14:46 | Outpatient (REF) | payer OTHER, SELFPAY ==
--- NOTE | ~2024-01-17 | MM_ITS ---
EXAMINATION: MM SCREENING DIGITAL BREAST TOMOSYNTHESIS, BILATERAL CLINICAL INFORMATION: Screening. Asymptomatic. COMPARISON: Mammography: Comparison is made with available priors TECHNIQUE: Digital breast mammography with tomosynthesis is performed in both the craniocaudal and mediolateral oblique views along with computer-aided detection (CAD). FINDINGS: There are scattered areas of fibroglandular density (ACR BI-RADS breast composition Category b). Circumscribed oval mass lower outer left breast is stable. There are no significant masses, abnormal calcifications, or other abnormalities. MM/MM tomosynthesis screening BI IMPRESSION: No mammographic evidence of malignancy. ASSESSMENT: BI-RADS BI-RADS 2 - Benign Findings RECOMMENDATION: Routine annual mammography screening. 1 year F/U This examination should not preclude the clinical evaluation of a suspicious palpable abnormality. This patient's information was entered into a reminder system with a target due date for their next mammogram. Electronically signed by: Camilla Poole DO 01/27/2024 07:41 PM EST
== END 2024-01-17 14:47 | disposition home or self-care (01) ==
LOC: HO.MAMMO 14:46
PROVIDERS: PCP Family Medicine; Visit Provider Family Medicine
DX: Z12.31 Encounter for screening mammogram for malignant neoplasm of breast (principal)
CPT/HCPCS: 77063; 77067

== ENCOUNTER → 2024-01-17 15:00 | Outpatient (BNV) | payer OTHER, SELFPAY | PROVIDERS: PCP Family Medicine; Visit Provider Internal Medicine | DX: Z12.31 Encounter for screening mammogram for malignant neoplasm of breast (principal) | CPT/HCPCS: 77063; 77067 ==

== ENCOUNTER → 2024-01-17 | Outpatient (BNV) | payer OTHER, SELFPAY | PROVIDERS: PCP Family Medicine; Visit Provider Internal Medicine Hypertension Specialist | DX: N18.6 End stage renal disease (principal) | CPT/HCPCS: 90962 ==

== ENCOUNTER → 2024-01-28 13:32 | Outpatient (BNVA) | payer OTHER, SELFPAY | PROVIDERS: PCP Family Medicine; Visit Provider Internal Medicine Hypertension Specialist ==

== ENCOUNTER → 2024-02-16 | Outpatient (BNV) | payer OTHER, SELFPAY | PROVIDERS: PCP Family Medicine; Visit Provider Internal Medicine Hypertension Specialist | DX: N18.6 End stage renal disease (principal) | CPT/HCPCS: 90962 ==

== ENCOUNTER 2024-03-17 11:43 | Outpatient (REF) | payer OTHER, SELFPAY ==
[2024-03-17 13:31] LABS: Blood Urea Nitrogen 27 mg/dL (9-16); Estimated Glomerular Filt Rate 18
== END 2024-03-17 11:44 | disposition home or self-care (01) ==
LOC: HO.LAB 11:43
PROVIDERS: Absent Provider Radiology Vascular & Interventional Radiology; PCP Family Medicine; Visit Provider Internal Medicine Hypertension Specialist
DX: R79.9 Abnormal finding of blood chemistry, unspecified (principal); R94.4 Abnormal results of kidney function studies; N18.6 End stage renal disease; Z99.2 Dependence on renal dialysis
CPT/HCPCS: 36415; 82565; 84520; 99212

== ENCOUNTER → 2024-03-18 | Outpatient (BNV) | payer OTHER, SELFPAY | PROVIDERS: Visit Provider Internal Medicine Hypertension Specialist | DX: N18.6 End stage renal disease (principal) | CPT/HCPCS: 90962 ==

== ENCOUNTER 2024-04-14 13:17 | Outpatient (AMB) | payer OTHER, SELFPAY ==
[2024-04-14 13:21] VITALS: BP 110/52; BMI 28.1
--- NOTE | 2024-04-14 13:21 | HO.NEPHOV ---
Vital Signs 04/14/24 13:21 Height 5 ft Weight 144 lb BMI 28.1 BP 110/52 L Blood Pressure Location Rt brachial Position Sitting Intake Visit Reasons: CKD/ LVM Television Picture Tube Rebuilder Required: No Accompanied by: Grand Child Allergies ALLYSSA Inhibitors [ALLYSSA INHIBITORS] Allergy (Mild, Verified 04/14/24 13:26) COUGH cilostazol [CILOSTAZOL] Allergy (Mild, Verified 04/14/24 13:26) COUGH Medication List - Last Reconciled 04/14/24 by Jean Claude Bowden MD amlodipine 2.5 mg PO DAILY aspirin 81 mg PO DAILY@1200 atorvastatin 80 mg PO BEDTIME blood sugar diagnostic (FreeStyle Lite Strips) As directed budesonide-formoterol 160-4.5 mcg/actuation (Symbicort) 2 puffs inhalation BID calcium acetate 667 mg PO TID carvedilol 12.5 mg See Protocol PO BID cetirizine 5 mg PO DAILY PRN cholecalciferol (vitamin D3) 50 mcg PO DAILY clopidogrel 75 mg PO DAILY ferrous sulfate 1 tab PO QAM furosemide 40 mg PO DAILY insulin aspart U-100 (Novolog FlexPen U-100 Insulin aspart) subcut lancets (TRUEplus Lancets) As directed levothyroxine 150 mcg PO DAILY linagliptin (Tradjenta) 5 mg PO DAILY@1200 mirtazapine 7.5 mg PO DAILY montelukast 10 mg PO BEDTIME pen needle, diabetic (Pentips Pen Needle) As directed once a day potassium chloride ER 8 mEq PO DAILY rivaroxaban (Xarelto) 2.5 mg PO DAILY sertraline 25 mg PO DAILY umeclidinium 62.5 mcg/actuation (Incruse Ellipta) 1 inh inhalation QAM [facility] Medical History Osteomyelitis CHF exacerbation Anemia CKD (chronic kidney disease) stage 5, GFR less than 15 ml/min Hypocalcemia Nicotine dependence, cigarettes, uncomplicated Atherosclerotic cardiovascular disease Thyroid cancer (~2008) 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) Hypothyroidism associated with surgical procedure (~2008) Uncontrolled type 2 diabetes mellitus with hyperglycemia (~1986) Pneumonitis ARDS (adult respiratory distress syndrome) Neuropathy Asthma-COPD overlap syndrome Anemia HTN (hypertension) Hypercholesteremia Surgical History History of thyroidectomy History of back surgery History of 2 sections History of angioplasty History of amputation of left great toe Family History Mother Hypertension Diabetes Father AA (alcohol abuse) Social History Household Members: Family Housing: Apartment Do you presently have 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 or 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 home services: 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) Alcohol intake: never 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 Tobacco Use Status: Former Tobacco user Years Smoked: 45 Advance Directives Date on File: 09/13/20 service: No Current occupational status: disabled Physical Exam Vital Signs: Last Vital Signs BP 110/52 L 04/14/24 13:21 BMI result Body Mass Index 28.1 Results Reviewed Nephrology Results: BUN 27 mg/dL (9-16) H 03/17/24 Creatinine 2.64 mg/dL (0.5-1.4) H 03/17/24 Assessment & Plan Assessment & Plan (1) ESRD needing dialysis: Code(s): N18.6 - End stage renal disease; Z99.2 - Dependence on renal dialysis Category: Medical Plan see dialysis EMR note Medications: New furosemide 40 mg PO DAILY 30 tabs 2RF Coding Level of Care Code Global (04157) Diagnoses ESRD needing dialysis N18.6; Z99.2
--- OUTSIDE RECORDS SUMMARY | 2024-04-14 14:15 | XMS_ITS | Encounter Summary ---
Author Organization [employer] Address [address] [place] [address] Care Team Providers Care Manager Leadership Development Name Role Phone Senait Pal MD Primary Care Provider [phone] Gustabo Fernandez PharmD Unavailable [phone] Encounter Details Date Type Department Care Team (Late st Contact Info) Description 11/01/2022 Abstract [facility] MEDICINE [address] [place], [place] [phone] Senait Pal MD [address] [place] [address] Social History Tobacco Use Types Packs/Day Years Used Date Smoking Tobacco: Every Day Cigarettes 0.5 40 Passive Smoke Exposure: Never Smokeless Tobacco: Never Depression Answer Date Recorded Patient Health Questionnaire-9 Score 7 10/31/2022 Depression Answer Date Recorded Patient Health Questionnaire-2 Score 2 10/31/2022 Comments Unknown Sex and Gender Information Value Date Recorded Sex Assigned at Female 01/15/2022 10:22 AM EDT Legal Sex Female 10:22 AM EDT Gender Identity Female 01/15/2022 10:22 AM EDT Sexual Orientation Straight 01/15/2022 10 :22 AM EDT documented as of this encounter Plan of Treatment Not on file documented as of this encounter Goals Goal Patient Goal Type Associated Problems Recent Progress Patient-Stated? Author Blood Pressure < 140/90 Blood Pressure 128/69( 024 9:18 AM EDT) No Gustabo Fernandez, PharmD Quit using tobacco (cigarettes, smokeless, etc) Tobacco Use No Gustabo Fernandez, PharmD documented as of this encounter Procedures Procedure Name Priority Date/Time Associated Diagnosis Comments DIABETES EYE EXAM Routine 08/04/2022 documented in this encounter Results * Diabetes Eye Exam (08/04/2022) Eye Exam Normal Normal [facility] Unassigned Pcp HEALTH MAINTENANCE Final Result documented in this encounter Visit Diagnoses Not on filedocumented in this encounter Additional Health Concerns Assessment Noted Time PHQ-9 Depression Total Score: 7 11/01/19 23 11:04 AM EDT documented as of this encounter Care Teams Manager Leadership Development Relationship Specialty Start Date End Date Senait Pal MD [address] [place] [address] PCP - General Family Medicine 02/22/20 Gustabo Fernandez, Agnes [address] [place] [address] Pharmacist Internal Medicine 07/16/[address] [facility] 09/14/23 documented as of this encounter
--- OUTSIDE RECORDS SUMMARY | 2024-04-14 14:15 | XMS_ITS | Encounter Summary ---
Author Organization [email or web address] Address [address] [place] [address] Care Team Providers Care Admissions Consultant Name Role Phone Senait Pal MD Primary Care Provider [phone] Gustabo Fernandez PharmD Unavailable [phone] Reason for Visit * Reason Comments Med Refill Encounter Details Date Type Department Care Team (Late st Contact Info) Description 11/12/2022 Refill [facility] [address] [place], [place] [phone] Senait Pal MD [address] [place] [address] Social History Tobacco Use Types Packs/Day Years [...] Fernandez, PharmD documented as of this encounter Visit Diagnoses Not on filedocumented in this encounter Additional Health Concerns Assessment Noted Time PHQ-9 Depression Total Score: 7 11/01/19 23 11:04 AM EDT documented as of this encounter Care Teams Admissions Consultant Relationship Specialty Start Date End Date Senait Pal MD [address] [place] [address] PCP - General Family Medicine 02/22/20 Gustabo Fernandez, PharmD [address] [place] [address] Pharmacist Internal Medicine 07/16/22 [facility] 09/14/23 documented as of this encounter
--- OUTSIDE RECORDS SUMMARY | 2024-04-14 14:15 | XMS_ITS | Encounter Summary ---
Author Organization [employer] Address [address] [place] [address] Care Team Providers Care Infection Control Rn Name Role Phone Senait Pal MD Primary Care Provider [phone] Gustabo Fernnadez PharmD Unavailable [phone] Encounter Details Date Type Department Care Team ([facility] st Contact Info) Description 11/12/2022 Orders Only [facility] MEDICINE [address] [place], [place] [phone] Senait Pal MD [address] [place], [place] [phone] Social History Tobacco Use Types Packs/Day Years [...] documented as of this encounter Care Teams Infection Control Rn Relationship Specialty Start Date End Date Senait Pal MD [address] [place] [address] PCP - General Family Medicine 02/22/20 Gustabo Fernandez, HarshaD [address] [place] [address] Pharmacist Internal Medicine 07/16/22 [facility] 09/14/23 documented as of this encounter
--- OUTSIDE RECORDS SUMMARY | 2024-04-14 14:16 | XMS_ITS | Encounter Summary ---
Author Organization [employer] Address [address] [place] [address] Care Team Providers Care Service Assistant Name Role Phone Senait Pal MD Primary Care Provider [phone] Gustabo Fernandez PharmD Unavailable [phone] Reason for Visit * Reason Onset Date Comments Durable Medical Equipment 12/10/2022 Encounter Details Date Type Department Care Team (Late st Contact Info) Description 12/10/2022 Telephone [facility] MEDICINE [address] [place], [place] [phone] Senait Pal MD [address] [place], [place] [phone] Durable Medical Equipment Social History Tobacco Use Types Packs/Day Years [...] AM EDT documented as of this encounter Miscellaneous Notes * Telephone Encounter - Lanny Coombs - 12/10/2022 2:09 PM EDT Tc from patient requesting a new script for a rollator. documented in this encounter Plan of Treatment Not on file documented as of this encounter Goals Goal Patient Goal Type Associated Problems Recent Progress Patient-Stated? Author Blood Pressure < 140/90 Blood Pressure 128/69( 024 9:18 AM EDT) No Gustabo Fernandez PharmD Quit using tobacco (cigarettes, smokeless, etc) Tobacco Use No Gustabo Fernandez PharmD documented as of this encounter Visit Diagnoses Not on filedocumented in this encounter Additional Health Concerns Assessment Noted Time PHQ-9 Depression Total Score: 7 11/01/19 23 11:04 AM EDT documented as of this encounter Care Teams Service Assistant Relationship Specialty Start Date End Date Senait Pal MD [address] [place] [address] PCP - General Family Medicine 02/22/20 Gustabo Fernandez PharmD [address] [place] [address] Pharmacist Internal Medicine 07/16/22 [facility] 09/14/23 documented as of this encounter
--- OUTSIDE RECORDS SUMMARY | 2024-04-14 14:16 | XMS_ITS | Encounter Summary ---
Author Organization [employer] Address [address] [place] [address] Care Team Providers Care Oracle Security Consultant Name Role Phone Senait Pal MD Primary Care Provider [phone] Gustabo Fernandez PharmD Unavailable [phone] Encounter Details Date Type Department Care Team (Late st Contact Info) Description 06/11/[address] [facility] MEDICINE [address] [place], [place] [phone] Senait Pal MD [address] [place], [place] [phone] Social History Tobacco Use Types Packs/Day Years Used Date Smoking Tobacco: Never Passive Smoke Exposure: Never Smokeless Tobacco: Never Comments Unknown Sex and Gender Information Value Date Recorded Sex Assigned at Female 01/15/2022 10:22 AM EDT Legal Sex Female 10:22 AM EDT Gender Identity Female 01/15/2022 10:22 AM EDT Sexual Orientation Straight 01/15/2022 10 :22 AM EDT COVID-19 Exposure Response Date Recorded In the last 10 days, have yo u been in contact with someone who was confirmed or suspected to have Coronavirus/COVID-19? No / Unsure 06/05/2022 3:17 PM EDT documented as of this encounter Plan of Treatment Not on file documented as of this encounter Visit Diagnoses Not on filedocumented in this encounter Care Teams [employer] Consultant Relationship Specialty Start Date End Date Senait Pal MD [address] [place], [place] [phone] PCP - General Family Medicine 02/22/20 Gustabo Fernandez, PharmD [address] [place] [address] Pharmacist Internal Medicine 07/16/22 [facility] 09/14/23 documented as of this encounter
--- OUTSIDE RECORDS SUMMARY | 2024-04-14 14:16 | XMS_ITS | Encounter Summary ---
Author Organization [employer] Address [address] [facility] [address] [place] [address] Care Team Providers Care Smelter Charger Name Role Phone Senait Pal MD Primary Care Provider [phone] Gustabo Fernandez PharmD Unavailable [phone] Reason for Referral * Imaging (Routine) - Closed Specialty Diagnoses / Procedures Referred By Contac t Referred To Contact Diagnoses Smoking greater than [address] Lung Screening Low dose Senait Pal MD [address] [place] [id number] Phone: tel: fax: [facility] MRI and CT Scan [address] [place] [address] Phone: tel: fax: Referral ID Status Reason Start Date Expiration Date Visits Re quested Visits Authorized [id number] Closed 04/01/2022 04/01/2023 1 1 Encounter Details Date Type Department Care Team (Late st Contact Info) Description 04/01/[address] [facility] [address] [place] [address] [phone] Senait Pal MD [address], [place] [phone] Smoking greater than 20 pack years (Primary Dx); Weight loss; Worsening renal function; Colon cancer screening Social History Tobacco Use Types Packs/Day Years [...] suspected to have Coronavirus/COVID-19? No / Unsure 03/29/2022 10:34 AM EST documented as of this encounter Plan of Treatment Scheduled Orders Name Type Priority Associated Diagnoses Orde r Schedule CT Lung Screening Low dose Imaging Routine Smoking greater than 20 pack years Expected: 04/01/2022 (Approximate), Expires: 04/01/2023 documented as of this encounter Visit Diagnoses Diagnosis Smoking greater than 20 pack years- Primary Weight loss Loss of weight Worsening renal function Colon cancer screening Special screening for malignant neoplasms, colon documented in this encounter Care Teams Smelter Charger Relationship Specialty Start Date End Date Senait Pal MD [address] [place] [address] PCP - General Family Medicine 02/22/20 Gustabo Fernandez, HarshaD [address] [place] [address] Pharmacist Internal Medicine 07/16/22 [facility][Note 3] 09/14/23 documented as of this encounter
--- OUTSIDE RECORDS SUMMARY | 2024-04-14 14:16 | XMS_ITS | Encounter Summary ---
Author Organization [employer] Address [address] [facility] [address] [place] [address] Care Team Providers Care Energy Attorney Name Role Phone Senait Pal MD Primary Care Provider [phone] Gustabo Fernandez PharmD Unavailable [phone] Reason for Visit * Reason Comments Med Refill Encounter Details Date Type Department Care Team ([facility] st Contact Info) Description 06/09/2023 Refill [facility] [address] [place], [place] [phone] Senait Pal MD [address] [place], [place] [phone] Moderate episode of recurrent major depressive disorder (CMS/HCC) Social History Tobacco Use Types Packs/Day Years Used Date Smoking Tobacco: Former Cigarettes 0.5 40 0 11/30/1982 - 11/30/2022 Passive Smoke Exposure: Past Smokeless Tobacco: Never Alcohol Use Standard Drinks/Week Comments Not Currently 0 (1 standard drink = 0.6 oz pur e alcohol) Depression Answer Date Recorded Patient Health Questionnaire-9 Score 7 10/31/2022 Housing Stability Answer Date Recorded What is your housing situation today? I have marion vásquez 12/31/[address] you li ve. Do you have problems with any of the following? None of the above 12/31/2022 Food Insecurity Answer Date Recorded Within the past 12 months, y ou worried that your food would run out before you got money to buy more: Never True 12/31/2022 Within the past 12 months,th e food you bought just didn't last and you didn't have enough money to get more: Never True Transportation Answer Date Recorded In the past 12 months, has l ack of transportation kept you from medical appts, meetings, work or from getting things needed for daily living? No 12/31/2022 Utilities Answer Date Recorded In the past 12 months, has t he electric, gas, oil or water company threatened to shut off services in your home? No 12/31/2022 Depression Answer Date Recorded Patient Health Questionnaire-2 [...] 024 9:18 AM EDT) No Gustabo Fernandez, PharmSpeedy Quit using tobacco (cigarettes, smokeless, etc) Tobacco Use No Gustabo Fernandez PharmD documented as of this encounter Visit Diagnoses Diagnosis Moderate episode of recurrent major depressive disorder (CMS/HCC) documented in this encounter Additional Health Concerns Assessment Noted Time PHQ-9 Depression Total Score: 7 11/01/19 23 11:04 AM EDT documented as of this encounter Care Teams Energy Attorney Relationship Specialty Start Date End Date Senait Pal MD [address] [place] [address] PCP - General Family Medicine 02/22/20 Gustabo Fernandez, PharmD [address] [place] [address] Pharmacist Internal Medicine 07/16/22 [facility] 09/14/23 documented as of this encounter
--- OUTSIDE RECORDS SUMMARY | 2024-04-14 14:16 | XMS_ITS | Data Portability ---
Author Organization [employer] [place] [employer] Address [address] [place] [address] Care Team Providers Care Thread Clipper Name Role Phone HIM CCA OTHER Assessment Encounter Date Assessment Date Assessment LastModified by Organization Details LastModified Time 11/01/2021 11/01/2021 This 66-year-old female has had mild chills in the evening for several days with no systemic symptoms. Her exam was unremarkable. She has felt better taking Tylenol and I recommended that she continue taking Tylenol and she will call back if she develops worrisome symptoms. She will follow up with her PCP. The patient agreed with this plan. Not available 11/01/2021 19:13:25 08/29/2022 08/29/2022 As noted, we were called to see this patient regarding concerns of cellulitis of the left lower leg Evaluation in the field was performed by my healthcare or medical colleague, as noted above, I provided real-time direction and supervision for this visit. The evaluation revealed erythema concerning for cellulitis Impression: 67 YOF with hx of DM and prior L toe amputation being seen for concern of cellulitis in the LLE. Exam with Left leg with erythema and tenderness. NO ulceration noted Plan: Doxycycline 100mg now, placed on 7 day course for cellulitis. Primary care, consider: close outpatient follow up to ensure improvement Disposition: We discussed the diagnostic uncertainty of home visits and the risk associated with this. In this case, the patient and I felt this to be an acceptable and reasonable amount of risk given the benefit of avoiding an ED visit. We discussed the need to seek care urgently/emerge ntly in the setting of any new or worsening serious symptoms, particularly worsening redness and pain [email or web address] Not available 08/29/2022 16:19:57 Plan of Treatment Reminders Order Date Submit Date Provider Last Modified By Organization Details Last Modified Time Details Appointments None recorded. Lab BMP, serum or plasma 2023 024 [facility], [address] [place] [address], [phone], 4 20:52:48 hemoglobin + hematocrit, blood 2023 024 [facility], [address] [place] [address], [phone], 4 20:51:45 Referral None recorded. Procedures None recorded. Surgeries None recorded. Imaging None recorded. Medication Orders doxycycline hyclate 100 mg capsule 2022 023 [email or web address] Not available 15:43:21 doxycycline hyclate 100 mg capsule 2022 023 [facility], [address] [place] [address], [id number], 3 15:51:20 sodium chloride 0.9 % intravenous solution 2023 024 [facility], [address] [place] [address], [id number], 4 20:51:12 Patient TargetsNo targets recorded. Patient InstructionsNo instructions recorded. Reason for Referral None Reported. Results Created Date Observation Date Name Description Value Unit Range Abnormal Flag Note LastModifiedBy Organization Detail LastModifiedTime 09/07/19 24 09/07/2023 BMP, serum or plasm a BUN 124 Not Available [facility] - [facility] [address], [id number], 09/07/2023 20:50:35 09/07/19 24 09/07/2023 BMP, serum or plasm a Ca 0.52 Not Available [facility] - [facility] [address], [address], 09/07/2023 20:50:35 09/07/19 24 09/07/2023 BMP, serum or plasm a CI- 103 Not Available [facility] - [facility] [address], [address], 09/07/2023 20:50:35 09/07/19 24 09/07/2023 BMP, serum or plasm a CRE 8.1 Not Available [facility] - [facility] [address], [address], 09/07/2023 20:50:35 09/07/19 24 09/07/2023 BMP, serum or plasm a GLU 267 Not Available [facility] - [facility] [address], [address], 09/07/2023 20:50:35 09/07/19 24 09/07/2023 BMP, serum or plasm a K+ 3.0 Not Available [facility] - [facility] [address], [address], 09/07/2023 20:50:35 09/07/19 24 09/07/2023 BMP, serum or plasm a Na+ 140 Not Available [facility] - [facility] [address], [address], 09/07/2023 20:50:35 09/07/19 24 09/07/2023 BMP, serum or plasm a tCO2 18 Not Available [facility] - [facility] [address], [address], 09/07/2023 20:50:35 09/07/19 24 09/07/2023 hemog lobin + hemat ocrit , blood Hemoglobin 9.5 Not Available [facility] - [facility] [address] [place] [address], [phone], 09/07/2023 20:51:28 09/07/19 24 09/07/2023 hemog lobin + hemat ocrit , blood Hematocrit 28 Not Available Main - [facility], [address], 09/07/2023 20:51:28 Result Notes None recorded. Medical Equipment None Reported. Medications Name Sig Start Date Stop Date Status Note LastModified by Organization Details LastModified Time medbox status USE DIRECTED active Not Available Not Available No t Available cilostazol 100 mg tablet TAKE 1 TABLET BY MOUTH TWICE DAILY AT NOON AND BEDTIME (2 HOURS AFTER BREAKFAST AND SUPPER) active Not Available Not Available Not Available atorvastatin 80 mg tablet TAKE 1 TABLET BY MOUTH AT BEDTIME active Not Available Not Available No t Available doxycycline hyclate 100 mg capsule TAKE 1 CAPSULE BY MOUTH TWICE DAILY FOR 7 DAYS active Not Available Not Available No t Available cetirizine 5 mg tablet TAKE 1 TABLET BY MOUTH ONCE DAILY NEEDED FOR ALLERGIES active Not Available Not Available No t Available polyvinyl alcohol 1.4 % eye drops INSTILL 1 DROP IN EACH EYE TWICE DAILY active Not Available Not Available Not Available gabapentin 400 mg capsule TAKE 1 CAPSULE BY MOUTH AT BEDTIME active Not Available Not Available No t Available Calcium Antacid 200 mg (as calcium carbonate 500 mg) chewable tablet CHEW 1 TABLET BY MOUTH AT NOON, EVENING, AND BEDTIME active Not Available Not Available Not Available clopidogrel 75 mg tablet TAKE 1 TABLET BY MOUTH EVERYDAY AT NOON active Not Available Not Available No t Available amlodipine 5 mg tablet TAKE 1 TABLET BY MOUTH EVERYDAY AT NOON active Not Available Not Available No t Available aspirin 81 mg tablet,delay ed release TAKE 1 TABLET BY MOUTH EVERYDAY AT NOON active Not Available Not Available No t Available levothyroxin e 75 mcg tablet TAKE 1 TABLET BY MOUTH EVERY MORNING active Not Available Not Available No t Available levothyroxin e 88 mcg tablet TAKE 1 TABLET BY MOUTH EVERY MORNING (WITH 75 MCG TABLET) active Not Available Not Available Not Available potassium chloride ER 20 mEq tablet,exten ded release(part /cryst) TAKE 1 TABLET BY MOUTH EVERY EVENING WITH FOOD active Not Available Not Available No t Available clotrimazole -betamethaso ne 1 %-0.05 % topical cream APPLY TO THE AFFECTED AREA(S) TWICE DAILY active Not Available Not Available Not Available sertraline 25 mg tablet TAKE 3 TABLETS BY MOUTH AT NOON active Not Available Not Available No t Available montelukast 10 mg tablet TAKE 1 TABLET BY MOUTH EVERY EVENING active Not Available Not Available No t Available sodium chloride 0.9 % intravenous solution Inject 1000 mL by intravenous route. 2023 active Not Available Not Available Not Avai lable Novolog FlexPen U-100 Insulin aspart 100 unit/mL (3 mL) subcutaneous INJECT 5 UNITS SUBCUTANEOU SLY WITH MEALS WITH CORRECTION SCALE DIRECTED. MAX 42 UNITS PER DAY. active Not Available Not Available No t Available metoprolol tartrate 25 mg tablet TAKE 1 TABLET BY MOUTH TWICE DAILY AT NOON AND BEDTIME active Not Available Not Available No t Available Flovent HFA 110 mcg/actuatio n aerosol inhaler INHALE 2 PUFFS BY MOUTH TWICE DAILY RINSE MOUTH AFTER USING. active Not Available Not Available No t Available FreeStyle Lite Strips TEST BLOOD SUGAR THREE TIMES DAILY active Not Available Not Available Not Available FeroSul 325 mg (65 mg iron) tablet TAKE 1 TABLET BY MOUTH EVERY EVENING active Not Available Not Available No t Available cholecalcife rol (vitamin D3) 50 mcg (2,000 unit) tablet TAKE 1 TABLET BY MOUTH EVERYDAY AT NOON active Not Available Not Available No t Available BD Ultra-Fine Isabella Pen Needle 32 gauge x /32 USE FOUR TIMES DAILY WITH LANTUS AND HUMALOG active Not Available Not Available Not Available Tradjenta 5 mg tablet TAKE 1 TABLET BY MOUTH EVERYDAY AT NOON active Not Available Not Available No t Available TRUEplus Lancets 33 gauge TEST BLOOD SUGAR THREE TIMES DAILY DIRECTED active Not Available Not Available Not Available Farxiga 5 mg tablet TAKE 1 TABLET BY MOUTH EVERYDAY AT NOON active Not Available Not Available No t Available Sissy-Dryl 25 mg tablet TAKE 1/2 TABLET BY MOUTH AT BEDTIME NEEDED (for itching) active Not Available Not Available No t Available Tresiba FlexTouch U-100 insulin 100 unit/mL (3 mL) subcutaneous pen INJECT 13 UNITS SUBCUTANEOU SLY EVERY MORNING active Not Available Not Available No t Available FreeStyle Nata 2 Sensor kit USE DIRECTED active Not Available Not Available No t Available Vitals Date Recorded Body weight Respiratory rate Oxygen saturation Oxygen saturation in Arterial blood by Pulse oximetry Body temperature Heart rate Systolic blood pressure Diastolic blood pressure Provider Name and Address Organization Details Last Updated DateTime 3 74607.7 6 g 16 /min 99 % 99 % 97.8 [degF] 75 /min 151 mm[Hg] 71 mm[Hg] Not Available [facility] - [facility] 3 15:40:42 Date Recorded Heart rate Oxygen saturation Oxygen saturation in Arterial blood by Pulse oximetry Respiratory rate Body temperature Systolic blood pressure Diastolic blood pressure Provider Name and Address Organization Details Last Updated DateTime 4 67 /min 100 % 100 % 16 /min 97.5 [degF] 113 mm[Hg] 60 mm[Hg] Not Available [facility] - [facility] 4 20:36:59 Date Recorded Heart rate Oxygen saturation Oxygen saturation in Arterial blood by Pulse oximetry Respiratory rate Body temperature Systolic blood pressure Diastolic blood pressure Provider Name and Address Organization Details Last Updated DateTime 2 84 /min 99 % 99 % 18 /min 97.8 [degF] 137 mm[Hg] 65 mm[Hg] Not Available [facility] 2 19:10:22 Social History None recorded. Functional Status None recorded. Mental Status None recorded. Family History Nothing Reported. Medical History No medical history recorded. Gynecological HistoryNo gynecological history recorded. Obstetrics History GPAL:G 0 P 0 0 0 0 Past Encounters Encounter ID Performer Location Encounter Start Date Encounter Closed Date Diagnosis/Indication Diagnosis SNOMED-CT Code Diagnosis ICD10 Code Diagnosis Note [id number] Kermit Tomas MD Main - [address] [address] 11/01/2021 19:10:19 11/01/2021 19:13:43 [id number] Noe Cortes [facility] [address] [place] [phone] 08/29/2022 15:40:31 08/30/2022 10:51:33 Cellulitis of lower limb 506450091 L03.119 [id number] CEDRICK EBLLO MD Main - [address] [phone] 09/07/2023 19:32:58 09/08/2023 16:45:57 Xbtie-zv-ncnxspe renal failure [id number] N17.9 Evaluation in the field was performed by my healthcare or medical colleague, as noted above, I provided real-time direction and supervisio n for this visit. The evaluation revealed 68 yo female with hx of Type 2 DM CKD with complains of dizziness for 1 week. and weakness. Reports that dizziness is worse when she moved or closed her eyes. Afraid to fall while walking. Reports feeling nauseous with episode of NBNB emesis in the last 2 days . Reports that she feels weak and generally unwell. Pt denied LU, blurred vision, no nystagmus present, no facial droop or slurred speech, she denied sore throat, cough, abd pain, diarrhea, or urinary S/S. Reports some CP and SOB on exertion. She was instructed by her Nephrologi st in the past week to DC her lasix, and stated she performed lab work in the past week through her Nephrology office. Blood sugar 324. Pt used 13U tresiba nightly, and had not started any new meds recently. 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 Lungs CTAB BMP was done that showed :na 140, K 3.0, Cl 103, bicarb 18, BUN 124, Cre 8.1, I ca 0.52 Impression :#Acute on chronic renal failure# Elevated anion gap ( no PH available ) but most likely HAGMA #Severe hypocalcem ia# Hypokalemi a# anemia of chronic disease Plan:-Init ial plan for NS 1 L while waiting for the paramedics for transport to the ED, able to complete only 500 ml-Unable to tolerate PO Kcl-expect called at [facility] Primary care, consider__ _ Dispositio n: ED Health Concerns Section Related Observation LastModified by Organization Detai ls LastModified Time None Recorded Concern Status LastModified by Organization Details LastModified Time None Recorded Advance Directives Directive None Recorded Payers Encounter Date Sequence Insurance Name Policy Number Policy Camacho Covered Member ID Camacho Member ID Guarantor Name 11/01/2021 1 [facility] - DOS PRIOR TO 2022 - DUAL ELIGIBLE (MEDICARE REPLACEMENT/AD VANTAGE - HMO) Sarah García [id number] Sarah García 08/29/2022 1 [facility] - DOS ON OR AFTER 2022 - DUAL ELIGIBLE - FPC OPTIONS AND ONE CARE (MEDICARE REPLACEMENT/AD VANTAGE - HMO) Sarah García [id number] Sarah García 09/07/2023 1 [facility] - DOS ON OR AFTER 2022 - DUAL ELIGIBLE - FPC OPTIONS AND ONE CARE (MEDICARE REPLACEMENT/AD VANTAGE - HMO) Sarah García [id number] Sarah García Notes Date Note Type Note Provider Name and Address Organization Details Recorded Time 11/01/2021 text/html HPI: Alergies-sandra inhibtors: cough and cilostazol: cough. Member reported fever and chills with weakness x 3 days, stated tested negative for Covid with home test. Questions UTI, but asymptomatic other than the above. Czech speaker. Member is 66 yo, has thyroid cancer, DM, HTN, Ischemic cardiac disease, DM and Asthma. Denied having respiratory or GI/ sx. ................... ................... ................... ................... ................... ................... ................... ........ CRC Nursing Assessment: Comments: CRC RN DID NOT NEED FURTHER INFO TO PROCESS VISIT ................... ................... ................... ................... ................... ................... ................... ........ Sales Trader Note: Pt states she feels tired and sick with the chills but only at night. Pt admits Tylenol helps with chills. Pt denies chest pain/coughing/sneez ing/SOB and states she currently feels normal. UA negative for UTI, blood glucose 95. Pt states she has been drinking water without issues. Skin turgor good. Pt well appearing. [employer] contacted. Red flags discussed ................... ................... ................... ................... ................... ................... ................... ........ Disposition: Fulfilled Kermit Tomas MD [address] [facility],[address], [place], [phone], [employer] 11/01/2021 19:13:41 08/29/2022 text/html HPI: CCA calling in [place]>left leg toe amputated a year ago....ankle up red slightly warm and hard.....travelling upwards to the [place] and provider is nervous for a case of cellulitis. pt is unable to go down stairs>pt is in pain. ................... ................... ................... ................... ................... ................... ................... ........ CRC Nursing Assessment: Comments: CRC RN did not require any additional information to process this visit. ................... ................... ................... ................... ................... ................... ................... ........ Sales Trader Note From Victor Manuel [place]: Pt CO redness and Pn on L foot/ankle X3 days. Pt describes Pn as pins and needles feeling. Pt had great toe amputated 1 year ago due to diabetes. Pt took her BGL at 1300 today and it was 110. Pt denies Chest Pn, SOB, fevers, NVD. Pt is able to ambulate with Pn. Pos distal pulses. Pos erythema/edema. Neg puss or abscess. Educated Pt on red flags of when to go to ED or call 911. Instructed Pt to make a follow - up with PCP in the next few days to R/O diabetic ulcer. Educated Pt on supportive care. Pt and family members understood all instructions ................... ................... ................... ................... ................... ................... ................... ........ Disposition: Fulfilled Noe Cortes MD [address] [place] [address],[address], [place], [address], [employer] 08/29/2022 16:20:09 09/07/2023 text/html CRC Nurse Triage Notes (George Gil): Chief Complaints: Syncope/Dizziness/L ightheadedness, Weakness/Lethargy PMH: Amputation, Diabetes, COPD/Asthma, Hypertension, Heart Disease Allergies: Unknown Comments: Seo Coordinator verified the member's name//address and phone number. Mbr's granddaughter reports mbr is feeling dizzy & weak. Mbr also reports my vision goes in and out . Mbr reports symptoms on going for approx 1 week but have worsened today. Mbr denies headache or chest pain. Mbr reports some shortness of breath . Education provided on the response time and the member was advised to monitor reported s/s and seek emergency treatment if needed -Socorro Gil RN Sales Trader POC Test Results from Tamra Smith - [facility] iSTAT Chem8+ (20:37:25) Na: 140 mEq/L K: 3.0 mEq/L Cl: 103 mEq/L iCa: 0.52 mmol/L TCO2: 18 mmol/L Glu: 267 mg/dL BUN: 124 mg/dL Crea: 8.1 mg/dL Hct: 28 % Hb: 9.5 g/dL A ................... ................... ................... ................... ................... ................... ................... ........ Sales Trader Note From LuisTamra: [facility] Sales Trader Kelsie Luis [email or web address] dispatched to a [facility] for a 68 yof C/O dizziness. Upon arrival, the pt was sitting on the couch, awake and alert, in no apparent distress but obviously not feeling well. She stated that she had felt dizzy consistently for 1 week, and that the dizziness was worse when she moved or closed her eyes; she reported that she was afraid to fall while walking. She stated she also felt nauseous, and reported an episode of vomiting the day prior, and another episode the day before that; she denied anything black or bloody in her vomit. She stated she felt weak and generally unwell. She denied LU, blurred vision, no nystagmus present, no facial droop or slurred speech, she denied sore throat, cough, SOB and CP at rest, abd pain, diarrhea, or urinary S/S. She reported some CP and SOB on exertion, and had weak truck sales manager strength in her left hand. Blood sugar 324. Pt used 13U tresiba nightly, and had not started any new meds recently. She was instructed by her Head Bander And Liner Operator in the past week to DC her lasix, and stated she performed lab work in the past week through her Nephrology office. [facility] consulted; #20 IV placed in her left AC, BMP acquired, and she was given 500 mL NS. BUN and creatinine were critically high; [facility] was consulted again, and pt was informed that she must be transported to the ED immediately. Pt agreed and 911 was called. [facility] arrived and transported her to [place] ED. ................... ................... ................... ................... ................... ................... ................... ........ Disposition: Fulfilled CEDRICK BELLO MD [address] [place] [address],[address], [place], [address], [phone] 09/07/2023 21:09:47 OBGyn Episode No OBEpisode recorded.
--- OUTSIDE RECORDS SUMMARY | 2024-04-14 14:16 | XMS_ITS | Clinical Summary ---
Author Organization [employer] Address [address] [place] [address] Care Team Providers Care Direct Sales Representative Name Role Phone Senait Car MD Primary Care Provider [phone] Gustabo Fernandez PharmD Unavailable [phone] Allergies Active Allergy Reactions Criticality Noted Date Comments Miguel Inhibitors Cough Low Cilostazol Cough Low 06/16/2014 Medications Acetaminophen Extra Strength 500 MG tablet TAKE 2 TABLETS BY MOUTH EVERY 6 HOURS NEEDED Active Ventolin HFA 108 (90 Base) MCG/ACT inhaler INHALE 2 PUFFS BY MOUTH EVERY 4 TO 6 HOURS NEEDED FOR DIFFICULTY BREATHING. NO MORE THAN FOUR TIMES DAILY. Active Sissy-Dryl 25 MG tablet TAKE 1/2 TABLET BY MOUTH AT BEDTIME NEEDED (for itching) Active Tresiba FlexTouch 100 UNIT/ML injection INJECT 13 UNITS SUBCUTANEOUSLY ONCE DAILY IN THE MORNING 15 mL 11 Active nicotine polacrilex (Commit) 2 MG lozengeIndicat ions:Tobacco dependence DISSOLVE 1 LOZENGE IN MOUTH EVERY 4-8 HOURS NEEDED 72 lozenge Active glucose blood (FREESTYLE LITE) test strip TEST BLOOD SUGAR THREE TIMES DAILY 100 strip 023 Active Lancets (Unilet Micro-Thin 33G) misc TEST BLOOD SUGAR THREE TIMES DAILY 100 each 023 Active Umeclidinium [place] (Incruse Ellipta) 62.5 MCG/ACT aerosol powder Inhale 1 puff in the morning. 30 each 11 024 Active BD Pen Needle Isabella U/F 32G X 4 MM misc USE FOUR TIMES DAILY WITH LANTUS AND HUMALOG 100 each Active Aspirin Adult Low Strength 81 MG EC tablet TAKE 1 TABLET BY MOUTH EVERYDAY AT NOON 90 tablet 3 Active atorvastatin (Lipitor) 80 MG tablet TAKE 1 TABLET BY MOUTH AT BEDTIME 90 tablet 3 Active Ferrous Sulfate (iron) 325 (65 Fe) MG tablet TAKE 1 TABLET BY MOUTH EVERY EVENING 90 tablet 3 Active isosorbide mononitrate ER (Imdur) 30 MG 24 hr tablet Take 1 tablet by mouth Once per day. Active cetirizine (ZyrTEC) 5 MG tablet TAKE 1 TABLET BY MOUTH ONCE DAILY NEEDED FOR ALLERGIES 30 tablet 11 Active clopidogrel (Plavix) 75 MG tablet TAKE 1 TABLET BY MOUTH EVERYDAY AT NOON 90 tablet 3 Active hydrALAZINE (Apresoline) 10 MG tablet Take 1 tablet (10 mg) by mouth 2 times daily. 60 tablet Active Continuous Glucose Traffic Engineering Technician (FreeStyle Nata 2 Walton) deviceIndicati ons:Type 2 diabetes mellitus with diabetic peripheral angiopathy without gangrene, with long-term current use of insulin ([facility]),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 chronic dialysis, with long-term current use of insulin ([facility]) Scan sensor every 8 hours 1 each Active Continuous Glucose Sensor (FreeStyle Nata 2 Sensor) miscIndication s:Type 2 diabetes mellitus with diabetic peripheral angiopathy without gangrene, with long-term current use of insulin ([facility]),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 chronic dialysis, with long-term current use of insulin ([facility]) Apply 1 sensor every 14 days 2 each Active glucose blood (FreeStyle Precision Andrea Test) test strip Use to test blood sugar 3 times daily 100 each 024 2024 Active traMADol 25 MG tabletIndicati ons:Pain in both lower extremities Take 25 mg by mouth if needed each day for severe pain. 30 tablet Active cholecalcifero l VITAMIN D (Vitamin D-3) 50 MCG (1999) tablet TAKE 1 TABLET BY MOUTH EVERYDAY AT NOON 90 tablet 3 Active amLODIPine (Norvasc) 2.5 MG tablet Take 2.5 mg by mouth in the morning. Active calcium acetate (Phoslo) 667 MG capsule Take 667 mg by mouth with breakfast, with lunch, and with evening meal. Active montelukast (Singulair) 10 MG tablet TAKE 1 TABLET BY MOUTH EVERY EVENING 90 tablet 3 Active levothyroxine (Synthroid, Levoxyl) 150 MCG tablet TAKE 1 TABLET BY MOUTH EVERY MORNING BEFORE BREAKFAST 90 tablet 3 Active budesonide-for moterol (Symbicort) 160-4.5 MCG/ACT inhaler INHALE 2 PUFFS BY MOUTH TWICE DAILY RINSE MOUTH AFTER USING. DO NOT SWALLOW 10.2 g 11 Active carvedilol (Coreg) 12.5 MG tablet TAKE 1 TABLET BY MOUTH TWICE DAILY AT NOON AND IN THE EVENING 180 tablet Active mirtazapine (Remeron) 7.5 MG tablet TAKE 1 TABLET BY MOUTH AT BEDTIME 30 tablet 1 Active Tradjenta 5 MG tabletIndicati ons:Type 2 diabetes mellitus with stage 4 chronic kidney disease, with long-term current use of insulin ([facility]) TAKE 1 TABLET BY MOUTH EVERYDAY AT NOON 30 tablet 1 Active TRUEplus Lancets 33G miscIndication s:Type 2 diabetes mellitus with stage 4 chronic kidney disease, with long-term current use of insulin ([facility]) TEST BLOOD SUGAR THREE TIMES DAILY 100 each 3 Active mirtazapine (Remeron) 7.5 MG tablet TAKE 1 TABLET BY MOUTH AT BEDTIME 30 tablet 024 2024 Discontinued Tradjenta 5 MG tabletIndicati ons:Type 2 diabetes mellitus with stage 4 chronic kidney disease, with long-term current use of insulin ([facility]) TAKE 1 TABLET BY MOUTH EVERYDAY AT NOON 30 tablet 024 01/07/ 2025 Discontinued Active Problems Problem Noted Date Diagnosed Date GERD (gastroesophageal reflux disease) Assessment & Plan (10/23/2023 7:12 PM EDT): - patient has been taking omeprazole - consider switching to pantoprazole or discontinue PPI - consider famotidine Diabetic ulcer of toe of rig ht foot associated with type 2 diabetes mellitus 10/20/2023 Osteomyelitis of right foot 10/20/2023 Assessment & Plan (10/23/2023 11:52 AM EDT): - MRI on 09/26/23 - ESR 92 and CRP 2.47 on 09/04/24 - Starting Ertapenem treatment 500 mg IV x 6 wks - Continue following with Wound Care and tubing oiler Abnormal echocardiogram 09/26/2023 Hospital discharge follow-up 09/26/2023 Hypercholesteremia 09/26/2023 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 - continue adequate hydration with water - will consider rechecking US Assessment & Plan (08/25/2023 5:45 PM EDT): - incidental finding on US on 07/26/23 - 6 mm nonobstructing right renal stone - patient has hypo-, not hyper, calcemia. - continue adequate hydration with water - will consider rechecking US Cholelithiasis 08/25/2023 Assessment & Plan (10/23/2023 7:11 PM EDT): - 07/23/23 US showed cholelithiasis and gallbladder sludge, borderline enlarged liver - since patient will be a high-risk for surgery, continue monitoring at this time. Assessment & Plan (08/25/2023 6:05 PM EDT): - US was ordered to evaluate for thrombocytopenia and transaminitis when she was hospitalized - since patient will be a high-risk for surgery, continue monitoring at this time. Open wound of right great toe 08/23/2023 Assessment & Plan (10/31/2023 2:36 PM EDT): -no evidence of infection -followed by vascular -advised keep area clean and dressed -return to clinic with changes in wound appearance, drainage, pain, redness Assessment & Plan (10/23/2023 11:50 AM EDT): - Following with vascular specialist and [place] [facility] [place] MRI on 09/26/23 showed osteomyelitis - Evaluated by ID specialist, Dr. Gage, on 09/29/23. Starting Ertapenem 500mg IV x 6 wks Assessment & Plan (08/25/2023 5:47 PM EDT): - Referral to Wound clinic for further evaluation. - Evaluate with MRI - check ESR and CRP - Begin Doxycycline 100 MG Tablet HFrEF (heart failure with reduced ejection fract ion) 08/22/2023 Assessment & Plan (10/31/2023 2:57 PM EDT): -stable since hospitalization -slight tachycardia noted, denies chest pain/ palpitation. Taught how to check pulse and advised monitoring. Return to clinic with symptoms -advised to maintain cardiac diet. -self monitoring for fluid overload and call clinic with any evidence of swelling -continue medications as prescribed -follow-up with PCP 08/21 as scheduled Assessment & Plan (10/23/2023 12:15 PM EDT): - acute on chronic HF in July 2023, [place] [facility] [place] transthoracic echocardiogram on 07/24/23: Mildly increased left ventricular cavity size. Mildly increased LV wall thickness. LV systolic function is mild to moderately decreased. EF 35-40%. Basal inferior and mild inferior segments are hypokinetic. Mildly increased RV size. Severely dilated left atrium. Right ventricular systolic pressure is 71 mmHg. Severely elevated RA pressure. Severe pulmonary hypertension. - monitor fluid balance - following with both aligning checker and clinical program consultant Weight gain 07/23/2023 Assessment & Plan (07/23/2023 12:28 PM EDT): - 30 lbs weight gain since last visit, concern for heart failure, will check thyroid function and BNP. However, patient has chronic kidney disease and BNP may not be reliable. - advise her to go to ED after chest XR and lab Hearing loss in left ear 07/23/2023 Assessment & Plan (10/31/2023 2:55 PM EDT): -patient has been referred to audiology on 07/25. Advised to call the office regarding appointment if she does not hear from them in the next 1-2 weeks -will refer to ENT for concrete distinction between conductive and sensorineural hearing loss Assessment & Plan (08/25/2023 6:28 PM EDT): - referred to audiology, but patient needs appointment with ENT - will refer to ENT Assessment & Plan (07/23/2023 12:37 PM EDT): - will refer to audiology Pulmonary hypertension 04/29/2023 Assessment & Plan (04/29/2023 9:43 AM EST): - suggested by CT in Dec 2022 - will evaluate with sleep study COPD (chronic obstructive pulmonary disease) 02/2024 Assessment & Plan (04/29/2023 9:45 AM EST): - 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 Patient states that she is scheduled for transfusion. No[employer] Sprayer Helper is also planning to start EPO. Assessment & Plan (04/29/2023 9:41 AM EST): - chronic anemia due to CKD - plan to start erythropoietin with aligning checker or heamtologist Prolonged Q-T interval on ECG 02/26/2023 Assessment & Plan (10/23/2023 11:54 AM EDT): - QTc > 500 ms - clinical program consultant recommends to discontinue SSRI, and sertraline was discontinued - optimize electrolyte replacement - now on peritoneal dialysis Assessment & Plan (08/25/2023 6:13 PM EDT): - QTc > 500 ms - clinical program consultant recommends to discontinue SSRI, and sertraline was discontinued - pharmacist will review her medications - optimize electrolyte replacement Assessment & Plan (07/26/2023 6:11 AM EDT): - most recent QTc 571 ms - clinical program consultant recommends to discontinue SSRI - pharmacist will review her medications - optimize electrolyte replacement Assessment & Plan (02/26/2023 12:16 PM EST): - most recent QTc 571 ms - clinical program consultant recommends to discontinue SSRI - pharmacist will review her medications - optimize electrolyte replacement Type 2 diabetes mellitus wit h chronic kidney disease on chronic dialysis, with long-term current use of insulin 07/03/2022 Assessment & Plan (10/23/2023 12:29 PM EDT): A1C 6.7% on 10/22/23 - last seen by hand candy dipper, Dr. Herndon in Apr 2022. - Continue basal insulin: Tresiba 11 units qhs - Continue bolus insulin: Novolog 5 units with each meal for now. Consider increasing due to worsening A1C. - continue SGLT-2 inhibitor, Farxiga 5 mg daily, given CAD and CKD. - continue Trajenta - consider GLP-1 agonist - continue diligent glucose monitoring with CGM due to hypo- and hyperglycemic episodes - Previously on metformin, but discontinued due to CKDIII - Last eye exam: July 2022, proliferative diabetic retinopathy - Last foot exam: 09/25/21. High-risk. PAD. Neuropathy. s/p amputation of left big-toe. - Last microalbumin test: 10/31/22 UACR > 2000 - Last lipid profile: 09/05/23 - Last dental exam: ? Follow-up in 3 mo Assessment & Plan (07/23/2023 12:29 PM EDT): A1C 6.8% on 07/23/23 - last seen by hand candy dipper, Dr. Herndon in Apr 2022. - Continue basal insulin: Tresiba 11 units qhs - Continue bolus insulin: Novolog 5 units with each meal for now. Consider increasing due to worsening A1C. - continue SGLT-2 inhibitor, Farxiga 5 mg daily, given CAD and CKD. - continue Trajenta - consider GLP-1 agonist - continue diligent glucose monitoring with CGM due to hypo- and hyperglycemic episodes - Previously on metformin, but discontinued due to CKDIII - Last eye exam: July 2022, proliferative diabetic retinopathy - Last foot exam: 09/25/21. High-risk. PAD. Neuropathy. s/p amputation of left big-toe. - Last microalbumin test: 10/31/22 UACR > 2000 - Last lipid profile: 10/31/22 TC 122; TG 162; HDL 44; LDL 60 - Last dental exam: ? Follow-up in 3 mo Assessment & Plan (04/29/2023 9:40 AM EST): A1C 7.1% on 04/23/23, stable from 6.9% on 10/31/22 - last seen by hand candy dipperDr. Herndon in Apr 2022. - Continue basal insulin: Tresiba 11 units qhs - Continue bolus insulin: Novolog 5 units with each meal for now. Consider increasing due to worsening A1C. - continue SGLT-2 inhibitor, Farxiga 5 mg daily, given CAD and CKD. - continue Trajenta - consider GLP-1 agonist - continue diligent glucose monitoring with CGM due to hypo- and hyperglycemic episodes - Previously on metformin, but discontinued due to CKDIII - Last eye exam: July 2022, proliferative diabetic retinopathy - Last foot exam: 09/25/21. High-risk. PAD. Neuropathy. s/p amputation of left big-toe. - Last microalbumin test: 10/31/22 UACR > 2000 - Last lipid profile: 10/31/22 TC 122; TG 162; HDL 44; LDL 60 - Last dental exam: ? Follow-up in 3 mo Assessment & Plan (02/26/2023 12:14 PM EST): - A1c 6.9% on 10/31/22, improved from 8.8% on 03/29/22 - seen by Dr. Herndon, [facility] for mostly hypothyroidism in May 2022 - Continue basal insulin: Tresiba 11 units qhs - Continue bolus insulin: Novolog 5 units with each meal - continue SGLT-2 inhibitor, Farxiga 5 mg daily, given CAD and CKD. - continue Trajenta - consider GLP-1 agonist - continue diligent glucose monitoring with CGM due to hypo- and hyperglycemic episodes - Previously on metformin, but discontinued due to CKDIII - Last eye exam: Overdue. Previously followed by Dr. Leroy. Cataract surgery in 2016. - Last foot exam: 09/25/21. High-risk. PAD. Neuropathy. s/p amputation of left big-toe. - Last microalbumin test: 10/31/22 UACR > 2000 - Last lipid profile: 10/31/22 TC 122; TG 162; HDL 44; LDL 60 - Last dental exam: ? Follow-up in 2 mo or sooner prn Assessment & Plan (11/12/2022 11:18 AM EDT): - A1c 6/9% on 10/31/22, improved from 8.8% on 03/29/22 - last seen by [facility] hand candy dipper on 02/20/21. Refer to a new hand candy dipper for transportation convenience. - Continue basal insulin: Tresiba 11 units qhs - Continue bolus insulin: Novolog 5 units with each meal for now. Consider increasing due to worsening A1C. - continue SGLT-2 inhibitor, Farxiga 5 mg daily, given CAD and CKD. - consider GLP-1 agonist - continue diligent glucose monitoring with CGM due to hypo- and hyperglycemic episodes - Previously on metformin, but discontinued due to CKDIII - Last eye exam: Overdue. Previously followed by Dr. Leroy. Cataract surgery in 2016. - Last foot exam: 09/25/21. High-risk. PAD. Neuropathy. s/p amputation of left big-toe. - Last microalbumin test: 10/31/22 UACR > 2000 - Last lipid profile: 10/31/22 TC 122; TG 162; HDL 44; LDL 60 - Last dental exam: ? Follow-up in 3 Hypocalcemia 07/03/2022 Assessment & Plan (02/26/2023 12:08 PM EST): - pt is taking calcium at high-dose Colon cancer screening 06/05/2022 Diabetic peripheral neuropathy 04/01/2022 Assessment & Plan (08/23/2023 12:38 PM EDT): -previously on Lyrica 150 mg bid, which was discontinued during the hospitalization in August 2020 because pt became unresponsive/ metabolic encephalopathy -in a setting of PAD -her current symptoms are suggestive of neuropathic pain, rather than claudication -patient has been on gabapentin (renal dose), recently further decreased to 200 mg bid and pain control is inadequate -tried tramadol but patient developed side effects, mainly headache. Patient requests gabapentin, however due to her current kidney function, patient was informed that we will find alternative medication and consult with her aligning checker Assessment & Plan (07/26/2023 6:10 AM EDT): -previously on Lyrica 150 mg bid, which was discontinued during the hospitalization in August 2020 because pt became unresponsive/ metabolic encephalopathy -in a setting of PAD -her current symptoms are suggestive of neuropathic pain, rather than claudication -patient has been on gabapentin (renal dose), recently further decreased to 200 mg bid and pain control is inadequate -tried tramadol but patient developed side effects, mainly headache. Patient requests gabapentin, however due to her current kidney function, patient was informed that we will find alternative medication and consult with her aligning checker Assessment & Plan (04/29/2023 9:24 AM EST): -previously on Lyrica 150 mg bid, which was discontinued during the hospitalization in August 2020 because pt became unresponsive/ metabolic encephalopathy -in a setting of PAD -her current symptoms are suggestive of neuropathic pain, rather than claudication -patient has been on gabapentin (renal dose), recently further decreased to 200 mg bid and pain control is inadequate -will try tramadol again, only at bedtime. Previously it was prescribed, but there was a concern for her son taking patient's medications. Assessment & Plan (04/01/2022 12:17 PM EST): -previously on Lyrica 150 mg bid, which was discontinued during the hospitalization in August 2020 because pt became unresponsive/ metabolic encephalopathy -in a setting of PAD -her current symptoms are suggestive of neuropathic pain, rather than claudication -last tramadol prescription in nov 2020 -continue gabapentin (renal dose) 200 mg bid Dry skin dermatitis 02/27/2022 Tobacco dependence 02/27/2022 Assessment & Plan (08/25/2023 6:06 PM EDT): - continue working on smoking cessation - referred to lung cacer screening program - most recent chest CT (not screening CT) on 12/31/22 showed no suspicious lesions - she has stopped smoking Assessment & Plan (04/29/2023 9:42 AM EST): - continue working on smoking cessation - referred to lung cacer screening program - most recent chest CT (not screening CT) on 12/31/22 showed no suspicious lesions Assessment & Plan (02/25/2023 5:04 AM EST): - continue working on smoking cessation - referred to lung cacer screening program - most recent chest CT (not screening CT) on 12/31/22 showed no suspicious lesions Assessment & Plan (04/01/2022 12:23 PM EST): - continue working on smoking cessation - refer for lung cancer screening program History of malignant neoplasm of thyroid 022 Ischemic heart disease 01/09/2016 Assessment & Plan (10/22/2023 9:50 AM EDT): [facility] -Nuclear stress test done in 2016 showed likely normal myocardial perfusion imaging. Last echo 2020 showed EF 60-65% with mild diastolic dysfunction, mild MR, mild pulmonary hypertension -Most recent chest CT in Dec 2022 showed: Dilated main pulmonary artery measuring 3.5 cm which may indicate pulmonary arterial hypertension. Mild to moderate three- vessel coronary calcium. -Continue isosorbide -Scheduling for pharm nuclear stress test Assessment & Plan (08/25/2023 6:13 PM EDT): - [facility], last seen on 08/05/23 -Nuclear stress test done in 2016 showed likely normal myocardial perfusion imaging. Last echo 2020 showed EF 60-65% with mild diastolic dysfunction, mild MR, mild pulmonary hypertension -Most recent chest CT in Dec 2022 showed: Dilated main pulmonary artery measuring 3.5 cm which may indicate pulmonary arterial hypertension. Mild to moderate three- vessel coronary calcium. -Continue isosorbide -Scheduling for pharm nuclear stress test Assessment & Plan (07/23/2023 11:54 AM EDT): - [facility], last seen on 01/15/23. EKG showed further increase in QT-c prolongation, likely due to electrolyte abnormality and medications. Sent to ED. -Nuclear stress test done in 2016 showed likely normal myocardial perfusion imaging. Last echo 2020 showed EF 60-65% with mild diastolic dysfunction, mild MR, mild pulmonary hypertension -Most recent chest CT in Dec 2022 showed: Dilated main pulmonary artery measuring 3.5 cm which may indicate pulmonary arterial hypertension. Mild to moderate three- vessel coronary calcium. -Consider evaluating with coronary calcium test Assessment & Plan (04/29/2023 9:35 AM EST): [facility] EKG showed further increase in QT-c prolongation, likely due to electrolyte abnormality and medications. Sent to ED. -Nuclear stress test done in 2016 showed likely normal myocardial perfusion imaging. Last echo 2020 showed EF 60-65% with mild diastolic dysfunction, mild MR, mild pulmonary hypertension -Most recent chest CT in Dec 2022 showed: Dilated main pulmonary artery measuring 3.5 cm which may indicate pulmonary arterial hypertension. Mild to moderate three- vessel coronary calcium. -Consider evaluating with coronary calcium test Assessment & Plan (02/25/2023 4:55 AM EST): - [place], [facility] seen on 01/15/23. EKG showed further increase in QT-c prolongation, likely due to electrolyte abnormality and medications. Sent to ED. -Nuclear stress test done in 2016 showed likely normal myocardial perfusion imaging. Last echo 2020 showed EF 60-65% with mild diastolic dysfunction, mild MR, mild pulmonary HTN Assessment & Plan (11/12/2022 10:57 AM EDT): - Previously seen by [facility] - Currently following with [facility] [place], last seen on 06/20/22. Found to have QT prolongation, likely due to electrolyte abnormality and medications Assessment & Plan (06/11/2022 8:54 AM EDT): - Previously seen by [facility] - Currently following with [facility] [place] Peripheral venous insufficiency 02/28/2015 Postoperative hypothyroidism 02/28/2015 Assessment & Plan (10/23/2023 7:04 PM EDT): -h/o papillary thyroid cancer, s/p thyroidectomy -Goal TSH 0.5-1 -Most recent thyroid function test: 01/21/23 TSH 1.75 -Current replacement: levothyroxine 175 mcg daily -Continue current replacement, with caution since pt is losing weight -Previously seeing [facility] endocrinology; referred to a new hand candy dipper for both DM and hypothyroidism / Hx thyroid cancer; pt has not received an appt yet. -Seen [place] [facility] [place]. Herndon in Apr 2022. Assessment & Plan (08/25/2023 5:49 PM EDT): -h/o papillary thyroid cancer, s/p thyroidectomy -Goal TSH 0.5-1 -Most recent thyroid function test: 01/21/23 TSH 1.75 -Current replacement: levothyroxine 175 mcg daily -Continue current replacement, with caution since pt is losing weight -Previously seeing [facility] endocrinology; referred to a new hand candy dipper for both DM and hypothyroidism / Hx thyroid cancer; pt has not received an appt yet. -Seen by [facility] [place]. Herndon in Apr 2022. Assessment & Plan (07/23/2023 12:30 PM EDT): -h/o papillary thyroid cancer, s/p thyroidectomy -Goal TSH 0.5-1 -Most recent thyroid function test: 01/21/23 TSH 1.75 -Current replacement: levothyroxine 175 mcg daily -Continue current replacement, with caution since pt is losing weight -Previously seeing [facility] endocrinology; referred to a new hand candy dipper for both DM and hypothyroidism / Hx thyroid cancer; pt has not received an appt yet. -Se[place] [facility] [place] [place] Herndon in Apr 2022. Assessment & Plan (04/29/2023 9:39 AM EST): -h/o papillary thyroid cancer, s/p thyroidectomy -Goal TSH 0.5-1 -Most recent thyroid function test: 01/21/23 TSH 1.75 -Current replacement: levothyroxine 175 mcg daily -Continue current replacement, with caution since pt is losing weight -Previously seeing [facility] endocrinology; referred to a new hand candy dipper for both DM and hypothyroidism / Hx thyroid cancer; pt has not received an appt yet. -Seen [place] [facility] [place] [place] Herndon in Apr 2022. Assessment & Plan (02/25/2023 5:02 AM EST): -h/o papillary thyroid cancer, s/p thyroidectomy -Goal TSH 0.5-1 -Most recent thyroid function test: 01/21/23 TSH 1.75 -Current replacement: levothyroxine 175 mcg daily -Continue current replacement, with caution since pt is losing weight -Previously seeing [facility] endocrinology; referred to a new hand candy dipper for both DM and hypothyroidism / Hx thyroid cancer; pt has not received an appt yet. -Seen by [facility] [place] [place] Herndon in Apr 2022. Assessment & Plan (11/12/2022 11:16 AM EDT): -h/o papillary thyroid cancer, s/p thyroidectomy -Goal TSH 0.5-1 -Most recent thyroid function test: In 2021, supratherapeutic. Repeating today -Current replacement: levothyroxine 175 mcg daily, decreased from 213 mcg daily after the most recent lab -Continue current replacement, with caution since pt is losing weight -Previously seeing [facility] endocrinology; referred to a new hand candy dipper for both DM and hypothyroidism / Hx thyroid cancer; pt has not received an appt yet. -Seen by [facility] [place] [place]. Herndon recently. Assessment & Plan (06/11/2022 8:55 AM EDT): -h/o papillary thyroid cancer, s/p thyroidectomy -Goal TSH 0.5-1 -Most recent thyroid function test: 07/28/21 TSH 0.05 -Current replacement: levothyroxine 175 mcg daily, decreased from 213 mcg daily after the most recent lab -Continue current replacement, with caution since pt is losing weight -Previously seeing [facility] endocrinology; referred to a new hand candy dipper for both DM and hypothyroidism / Hx thyroid cancer; pt has not received an appt yet. -Seen [place] [facility] [place] [place] Herndon recently. Assessment & Plan (04/01/2022 12:19 PM EST): -h/o papillary thyroid cancer, s/p thyroidectomy -Goal TSH 0.5-1 -Most recent thyroid function test: 07/28/21 TSH 0.05 -Current replacement: levothyroxine 175 mcg daily, decreased from 213 mcg daily after the most recent lab -Continue current replacement, with caution since pt is losing weight -Previously seeing [facility] endocrinology; referred to a new hand candy dipper for both DM and hypothyroidism / Hx thyroid cancer; pt has not received an appt yet. -Refer to [facility] ESRD on dialysis 09/15/2013 Assessment & Plan (10/23/2023 11:55 AM EDT): - Nozzle Cement Sprayer Helper: Dr. Bowden, last seen on 10/13/24 - on peritoneal dialysis at home - avoid nephrotoxic drug Assessment & Plan (10/20/2023 11:19 AM EDT): >>ASSESSMENT AND PLAN FOR CKD (CHRONIC KIDNEY DISEASE) STAGE 5, GFR LESS THAN 15 ML/MIN ([facility]) WRITTEN ON 10/20/2023 11:18 AM BY SENAIT CAR MD >>ASSESSMENT AND PLAN FOR STAGE 5 CHRONIC KIDNEY DISEASE NOT ON CHRONIC DIALYSIS ([facility]) WRITTEN ON 04/01/2022 12:14 PM BY SENAIT CAR MD - CKDIII/IV - most recent lab: Dec 2021 SCr 2.0 ; BUN 20; eGFR 24 - pt has an upcoming appt with aligning checker - avoid nephrotoxic drug - renal dose medications Assessment & Plan (10/20/2023 11:19 AM EDT): >>ASSESSMENT AND PLAN FOR CKD (CHRONIC KIDNEY DISEASE) STAGE 5, GFR LESS THAN 15 ML/MIN ([facility]) WRITTEN ON 10/20/2023 11:18 AM BY SENAIT CAR MD >>ASSESSMENT AND PLAN FOR STAGE 5 CHRONIC KIDNEY DISEASE NOT ON CHRONIC DIALYSIS ([facility]) WRITTEN ON 06/11/2022 8:54 AM BY SENAIT CAR MD - CKDIII/IV - most recent lab: Dec 2021 SCr 2.0 ; BUN 20; eGFR 24 - pt has an upcoming appt with aligning checker - avoid nephrotoxic drug - renal dose medications Assessment & Plan (10/20/2023 11:19 AM EDT): >>ASSESSMENT AND PLAN FOR CKD (CHRONIC KIDNEY DISEASE) STAGE 5, GFR LESS THAN 15 ML/MIN ([facility]) WRITTEN ON 10/20/2023 11:18 AM BY SENAIT CAR MD >>ASSESSMENT AND PLAN FOR STAGE 5 CHRONIC KIDNEY DISEASE NOT ON CHRONIC DIALYSIS ([facility]) WRITTEN ON 11/12/2022 10:59 AM BY SENAIT CAR MD - CKDIII/IV - most recent lab: Dec 2021 SCr 2.0 ; BUN 20; eGFR 24 - pt has an upcoming appt with aligning checker - avoid nephrotoxic drug - renal dose medications - obtain kidney biopsy result Assessment & Plan (10/20/2023 11:19 AM EDT): >>ASSESSMENT AND PLAN FOR CKD (CHRONIC KIDNEY DISEASE) STAGE 5, GFR LESS THAN 15 ML/MIN (CMS/HCC) WRITTEN ON 10/20/2023 11:18 AM BY SENAIT CAR MD >>ASSESSMENT AND PLAN FOR STAGE 5 CHRONIC KIDNEY DISEASE NOT ON CHRONIC DIALYSIS (CMS/HCC) WRITTEN ON 02/26/2023 12:04 PM BY SENAIT CAR MD - CKD IV-V - most recent lab: 01/21/23 Na 145; K 2.9; Cl 108; Bicarb 24; BUN 33; Scr 3.3; eGFR 15; Ca 5.7; Phos 4.6; Glu 152 - Nozzle Cement Sprayer Helper: Dr. Bowden, last seen in September 2021 - avoid nephrotoxic drug - renal dose medications - scheduled appt with Dr. Bowden for 02/26/23 at 1:30 PM Assessment & Plan (10/20/2023 11:19 AM EDT): >>ASSESSMENT AND PLAN FOR CKD (CHRONIC KIDNEY DISEASE) STAGE 5, GFR LESS THAN 15 ML/MIN (CMS/HCC) WRITTEN ON 10/20/2023 11:18 AM BY SENAIT CAR MD >>ASSESSMENT AND PLAN FOR STAGE 5 CHRONIC KIDNEY DISEASE NOT ON CHRONIC DIALYSIS ([facility]) WRITTEN ON 04/29/2023 9:36 AM BY SENAIT CAR MD - CKD IV-V - most recent lab: 01/21/23 Na 145; K 2.9; Cl 108; Bicarb 24; BUN 33; Scr 3.3; eGFR 15; Ca 5.7; Phos 4.6; Glu 152 - Nozzle Cement Sprayer Helper: Dr. Bowden, last seen in Mar 2023 - avoid nephrotoxic drug - renal dose medications Assessment & Plan (10/20/2023 11:19 AM EDT): >>ASSESSMENT AND PLAN FOR CKD (CHRONIC KIDNEY DISEASE) STAGE 5, GFR LESS THAN 15 ML/MIN (CMS/HCC) WRITTEN ON 10/20/2023 11:18 AM BY SENAIT CAR MD >>ASSESSMENT AND PLAN FOR STAGE 5 CHRONIC KIDNEY DISEASE NOT ON CHRONIC DIALYSIS (CMS/HCC) WRITTEN ON 07/23/2023 11:57 AM BY MIRNA SNYDER - CKD IV-V - most recent lab: 01/21/23 Na 145; K 2.9; Cl 108; Bicarb 24; BUN 33; Scr 3.3; eGFR 15; Ca 5.7; Phos 4.6; Glu 152 - Nozzle Cement Sprayer Helper: Dr. Bowden, last seen in Mar 2023 - avoid nephrotoxic drug - renal dose medications Assessment & Plan (10/20/2023 11:19 AM EDT): >>ASSESSMENT AND PLAN FOR CKD (CHRONIC KIDNEY DISEASE) STAGE 5, GFR LESS THAN 15 ML/MIN ([facility]) WRITTEN ON 10/20/2023 11:18 AM BY SENAIT CAR MD >>ASSESSMENT AND PLAN FOR STAGE 5 CHRONIC KIDNEY DISEASE NOT ON CHRONIC DIALYSIS ([facility]) WRITTEN ON 08/25/2023 5:46 PM BY SENAIT CAR MD - CKD IV-V - Nozzle Cement Sprayer Helper: Dr. Bowden, last seen in July 2023 - avoid nephrotoxic drug - renal dose medications - starting dialysis soon, likely peritoneal Peripheral arterial occlusive disease 04/16/2013 Assessment & Plan (10/23/2023 11:54 AM EDT): -s/p balloon angioplasty of left SFA on 06/10/13 -s/p left big-toe amputation -previously followed by Dr. Fuchs and Dr. Courtney at [facility], last appt in Jan 2020 -currently followed by Dr. Butler, last seen on 07/10/23 -s/p left LE angioplasty on 07/10/23 -previously seen by [facility] on 05/2021 -continue Plavix and ASA -discontinued cilostazol since it is contraindicated for HF -continue tramadol for claudication pain and other back / joint pain -work on risk factor management Assessment & Plan (08/25/2023 6:07 PM EDT): -s/p balloon angioplasty of left SFA on 06/10/13 -s/p left big-toe amputation -previously followed by Dr. Fuchs and Dr. Courtney at [facility], last appt in Jan 2020 -currently followed by Dr. Butler, last seen on 07/10/23 -s/p left LE angioplasty on 07/10/23 -previously seen by [facility] on 05/2021 -continue Plavix and ASA -discontinue cilostazol since it is contraindicated for HF -continue tramadol for claudication pain and other back / joint pain -work on risk factor management Assessment & Plan (07/23/2023 12:32 PM EDT): -s/p balloon angioplasty of left SFA on 06/10/13 -s/p left big-toe amputation -previously followed by Dr. Fuchs and Dr. Courtney at [facility], last appt in Jan 2020 -currently followed by Dr. Butler, last seen on 07/10/23 -s/p left LE angioplasty on 07/10/23 -previously seen by [facility] on 05/2021 -continue Plavix and ASA -continue cilostazol -continue tramadol for claudication pain and other back / joint pain -work on risk factor management Assessment & Plan (04/29/2023 9:35 AM EST): -s/p balloon angioplasty of left SFA on 06/10/13 -s/p left big-toe amputation -previously followed by Dr. Fuchs and Dr. Courtney at [facility], last appt in Jan 2020 -currently followed by Dr. Butler, last seen on 04/24/22 -previously seen by [facility] on 05/2021 -continue Plavix and ASA -continue cilostazol -continue tramadol for claudication pain and other back / joint pain -work on risk factor management Assessment & Plan (02/25/2023 4:53 AM EST): -s/p balloon angioplasty of left SFA on 06/10/13 -s/p left big-toe amputation -previously followed by Dr. Fuchs and Dr. Courtney at [facility], last appt in Jan 2020 -currently followed by Dr. Butler, last seen on 04/24/22 -previously seen by [facility] on 05/2021 -continue Plavix and ASA -continue cilostazol -continue tramadol for claudication pain and other back / joint pain -work on risk factor management Assessment & Plan (11/12/2022 10:57 AM EDT): -s/p balloon angioplasty of left SFA on 06/10/13 -s/p left big-toe amputation -previously followed by Dr. Fuchs and Dr. Courtney at [facility], last appt in Jan 2020 -currently followed by Dr. Butelr, last seen on 04/24/22 -previously seen by [facility] on 05/2021 -continue Plavix and ASA -continue cilostazol -continue tramadol for claudication pain and other back / joint pain -work on risk factor management Assessment & Plan (06/11/2022 8:43 AM EDT): -s/p balloon angioplasty of left SFA on 06/10/13 -s/p left big-toe amputation -previously followed by Dr. Fuchs and Dr. Courtney at [facility], last appt in Jan 2020 -currently followed by Dr. Butler, last seen on 04/24/22 -previously seen by [facility] on 05/2021 -continue Plavix and ASA -continue cilostazol -continue tramadol for claudication pain and other back / joint pain -work on risk factor management Assessment & Plan (04/01/2022 12:15 PM EST): -s/p balloon angioplasty of left SFA on 06/10/13 -s/p left big-toe amputation -previously followed by Dr. Fuchs and Dr. Courtney at [facility], last appt in Jan 2020 -currently followed by Dr. Butler and [facility] on 05/2021, with [facility] RN for wound check at home -continue Plavix and ASA -continue cilostazol -continue tramadol for claudication pain and other back / joint pain -work on risk factor management Bilateral femoral artery stenosis 04/16/2013 Assessment & Plan (07/26/2023 6:15 AM EDT): - s/p left lower extremity aortogram and left SFA plasty 07/10/23 Hypothyroidism 04/23/2012 Asthma 11/07/2011 Assessment & Plan (04/29/2023 9:25 AM EST): - Most recent asthma exacerbation: 02/25/23, treated with prednisone burst - Continue budesonide / formoterol as maintenance ICS / LABA - Continue albuterol prn as rescue. - Work on smoking cessation. Assessment & Plan (02/26/2023 12:03 PM EST): - Most recent asthma exacerbation: Today, 02/25/23, treated with prednisone burst - Continue budesonide / formoterol as maintenance ICS / LABA - Continue albuterol prn as rescue. - Work on smoking cessation. Assessment & Plan (11/12/2022 10:54 AM EDT): - Continue Flovent and Singulair as maintenance. - Continue albuterol prn as rescue. - Work on smoking cessation. Assessment & Plan (06/11/2022 8:41 AM EDT): - Continue Flovent and Singulair as maintenance. - Continue albuterol prn as rescue. - Work on smoking cessation. Assessment & Plan (04/01/2022 12:22 PM EST): - Continue Flovent and Singulair as maintenance. - Continue albuterol prn as rescue. - Work on smoking cessation. Coronary artery disease 11/07/2011 Depression 11/07/2011 Assessment & Plan (10/23/2023 11:47 AM EDT): - Previously on sertraline. Due to prolonged QT-c, clinical program consultant recommended to discontinue - Started on mirtazapine 7.5 mg at bedtime in September 2023. She reports her mood has been better and stable. - Continue mirtazapine. Assessment & Plan (08/25/2023 5:58 PM EDT): - Previously on sertraline. Due to prolonged QT-c, clinical program consultant recommended to discontinue - Asked our pharmacist to review her medications - will consider adding bupropion, or venlafaxine, or duloexetine (Cymbalta). Assessment & Plan (02/26/2023 12:15 PM EST): - Previously on sertraline. Due to prolonged QT-c, clinical program consultant recommended to discontinue - Asked our pharmacist to review her medications Dyslipidemia 11/07/2011 Assessment & Plan (10/23/2023 11:48 AM EDT): -last lipid profile in August 2023 -continue atorvastatin -continue working on lifestyle modifications Assessment & Plan (08/23/2023 4:42 PM EDT): -continue atorvastatin -10/31/22 TC 122; TG 162; HDL 44; LDL 60 -continue working on lifestyle modifications Assessment & Plan (02/25/2023 5:05 AM EST): -continue atorvastatin -10/31/22 TC 122; TG 162; HDL 44; LDL 60 -continue working on lifestyle modifications Assessment & Plan (11/12/2022 11:19 AM EDT): -continue atorvastatin -10/31/22 TC 122; TG 162; HDL 44; LDL 60 -continue working on lifestyle modifications Assessment & Plan (06/11/2022 8:57 AM EDT): -continue atorvastatin -recheck lab History of myocardial infarction 11/07/2011 Hypertension 11/07/2011 Assessment & Plan (10/23/2023 7:09 PM EDT): -Goal BP < 140/90 per JNC-8 and < 130/80 per ACC/AHA guideline (Treatment threshold >= 130/80 ) -BP not at goal today -Co-managed with our pharmacist, aligning checker, and clinical program consultant -Continue working on lifestyle modifications -Continue carvedilol 12.5 mg bid -Continue hydralazine 10 mg bid, will check with pharmacist and aligning checker whether she is still taking it -Continue amlodipine 2.5 mg daily -Continue furosemide 80 mg daily - Treatment Hx: Discontinued amlodipine 5 mg daily due to swelling, Furosemide dose was increased during recent hospitalization for HF, isosorbide was added. Spironolactone (Hx hypokalemia), but discontinued when she moved to [place]. Losartan and chlorthalidone were discontinued in May 2020 due to MARY KATE -Continue checking home BP -Or consider SGLT-2 inhibitor or Entresto (depending on echo / cardiology recommendation). - Follow up in 3 mo or ssoner Assessment & Plan (08/25/2023 6:27 PM EDT): -Goal BP < 140/90 per JNC-8 and < 130/80 per ACC/AHA guideline (Treatment threshold >= 130/80 ) -BP not at goal today -Co-managed with our pharmacist, aligning checker, and clinical program consultant -Continue working on lifestyle modifications -Continue carvedilol 12.5 mg bid -Continue hydralazine -Continue furosemide 80 mg daily - Treatment Hx: Discontinued amlodipine 5 mg daily due to swelling, Furosemide dose was increased during recent hospitalization for HF, isosorbide was added. Spironolactone (Hx hypokalemia), but discontinued when she moved to [place]. Losartan and chlorthalidone were discontinued in May 2020 due to MARY KATE -Continue checking home BP -Or consider SGLT-2 inhibitor or Entresto (depending on echo / cardiology recommendation). - Follow up in 3 mo or ssoner Assessment & Plan (07/23/2023 12:31 PM EDT): -Goal BP < 140/90 per JNC-8 and < 130/80 per ACC/AHA guideline (Treatment threshold >= 130/80 ) -BP not at goal today -Co-managed with our pharmacist, aligning checker, and clinical program consultant -Continue working on lifestyle modifications -Continue metoprolol tartrate 25 mg bid -Discontinued amlodipine 5 mg daily yesterday by aligning checker due to swelling -started furosemide 40 mg daily Treatment Hx: Previously on spironolactone (Hx hypokalemia), but discontinued when she moved to [place] Losartan and chlorthalidone were discontinued in May 2020 due to MARY KATE -check home BP -continue holding losartan and chlorthalidone. Consider restarting losartan at lower dose if persistently elevated and no risk for MARY KATE -Or consider SGLT-2 inhibitor or Entresto (depending on echo / cardiology recommendation). - Follow up in 3 mo or ssoner Assessment & Plan (04/29/2023 9:33 AM EST): -Goal BP < 140/90 per JNC-8 and < 130/80 per ACC/AHA guideline (Treatment threshold >= 130/80 ) -BP not at goal today -Co-managed with our pharmacist, aligning checker, and clinical program consultant -Continue working on lifestyle modifications -Continue metoprolol tartrate 25 mg bid -Continue amlodipine 5 mg daily Treatment Hx: Previously on spironolactone (Hx hypokalemia), but discontinued when she moved to [place] Losartan and chlorthalidone were discontinued in May 2020 due to MARY KATE -check home BP -continue holding losartan and chlorthalidone. Consider restarting losartan at lower dose if persistently elevated and no risk for MARY KATE -Or consider SGLT-2 inhibitor or Entresto (depending on echo / cardiology recommendation). - Follow up in 3 mo or ssoner Assessment & Plan (02/25/2023 4:56 AM EST): -Goal BP < 140/90 per JNC-8 and < 130/80 per ACC/AHA guideline (Treatment threshold >= 130/80 ) -BP not at goal today -Co-managed with our pharmacist, aligning checker, and clinical program consultant -Continue working on lifestyle modifications -Continue metoprolol tartrate 25 mg bid -Continue amlodipine 5 mg daily Treatment Hx: Previously on spironolactone (Hx hypokalemia), but discontinued when she moved to [place] Losartan and chlorthalidone were discontinued in May 2020 due to MARY KATE -check home BP -continue holding losartan and chlorthalidone. Consider restarting losartan at lower dose if persistently elevated and no risk for MARY KATE -Or consider SGLT-2 inhibitor or Entresto (depending on echo / cardiology recommendation). - Follow up in 3 mo or ssoner Assessment & Plan (11/12/2022 10:55 AM EDT): -Goal BP < 140/90 per JNC-8 and < 130/80 per ACC/AHA guideline (Treatment threshold >= 130/80 ) -BP not at goal today -Continue working on lifestyle modifications -Continue metoprolol tartrate 25 mg bid -Continue amlodipine 5 mg daily Treatment Hx: Previously on spironolactone (Hx hypokalemia), but discontinued when she moved to [place] Losartan and chlorthalidone were discontinued in May 2020 due to MARY KATE -check home BP -continue holding losartan and chlorthalidone. Consider restarting losartan at lower dose if persistently elevated and no risk for MARY KATE -Or consider SGLT-2 inhibitor or Entresto (depending on echo / cardiology recommendation). - Follow up in 3 mo or ssoner Assessment & Plan (06/11/2022 8:50 AM EDT): -Goal BP < 140/90 per JNC-8 and < 130/80 per ACC/AHA guideline (Treatment threshold >= 130/80 ) -BP not at goal today -Continue working on lifestyle modifications -Continue metoprolol tartrate 25 mg bid -Continue amlodipine 5 mg daily Treatment Hx: Previously on spironolactone (Hx hypokalemia), but discontinued when she moved to [place] Losartan and chlorthalidone were discontinued in May 2020 due to MARY KATE -check home BP -continue holding losartan and chlorthalidone. Consider restarting losartan at lower dose if persistently elevated and no risk for MARY KATE -Or consider SGLT-2 inhibitor or Entresto (depending on echo / cardiology recommendation). Diabetes mellitus, type 2 11/07/2011 Assessment & Plan (10/22/2023 9:52 AM EDT): - A1C 6.7% on 10/22/23 - last seen by hand candy dipper, Dr. Herndon in Apr 2022. - Continue basal insulin: Tresiba 11 units qhs - Continue bolus insulin: Novolog 5 units with each meal for now. Consider increasing due to worsening A1C. - continue SGLT-2 inhibitor, Farxiga 5 mg daily, given CAD and CKD. - continue Trajenta - consider GLP-1 agonist - continue diligent glucose monitoring with CGM due to hypo- and hyperglycemic episodes - Previously on metformin, but discontinued due to CKDIII - Last eye exam: July 2022, proliferative diabetic retinopathy - Last foot exam: 09/25/21. High-risk. PAD. Neuropathy. s/p amputation of left big-toe. - Last microalbumin test: 10/31/22 UACR > 2000 - Last lipid profile: 10/31/22 TC 122; TG 162; HDL 44; LDL 60 - Last dental exam: ? Follow-up in 3 mo Assessment & Plan (08/25/2023 5:48 PM EDT): - A1C 8.1% on 08/22/23, has worsened - last seen by hand candy dipper, Dr. Herndon in Apr 2022. - Continue basal insulin: Tresiba 11 units qhs - Continue bolus insulin: Novolog 5 units with each meal for now. Consider increasing due to worsening A1C. - continue SGLT-2 inhibitor, Farxiga 5 mg daily, given CAD and CKD. - continue Trajenta - consider GLP-1 agonist - continue diligent glucose monitoring with CGM due to hypo- and hyperglycemic episodes - Previously on metformin, but discontinued due to CKDIII - Last eye exam: July 2022, proliferative diabetic retinopathy - Last foot exam: 09/25/21. High-risk. PAD. Neuropathy. s/p amputation of left big-toe. - Last microalbumin test: 10/31/22 UACR > 2000 - Last lipid profile: 10/31/22 TC 122; TG 162; HDL 44; LDL 60 - Last dental exam: ? Follow-up in 3 mo Assessment & Plan (07/23/2023 12:29 PM EDT): - A1C 6.8% on 07/23/23 - last seen by hand candy dipper, Dr. Herndon in Apr 2022. - Continue basal insulin: Tresiba 11 units qhs - Continue bolus insulin: Novolog 5 units with each meal for now. Consider increasing due to worsening A1C. - continue SGLT-2 inhibitor, Farxiga 5 mg daily, given CAD and CKD. - continue Trajenta - consider GLP-1 agonist - continue diligent glucose monitoring with CGM due to hypo- and hyperglycemic episodes - Previously on metformin, but discontinued due to CKDIII - Last eye exam: July 2022, proliferative diabetic retinopathy - Last foot exam: 09/25/21. High-risk. PAD. Neuropathy. s/p amputation of left big-toe. - Last microalbumin test: 10/31/22 UACR > 2000 - Last lipid profile: 10/31/22 TC 122; TG 162; HDL 44; LDL 60 - Last dental exam: ? Follow-up in 3 mo Assessment & Plan (04/29/2023 9:38 AM EST): - A1C 7.1% on 04/23/23, stable from 6.9% on 10/31/22 - last seen by hand candy dipper, Dr. Herndon in Apr 2022. - Continue basal insulin: Tresiba 11 units qhs - Continue bolus insulin: Novolog 5 units with each meal for now. Consider increasing due to worsening A1C. - continue SGLT-2 inhibitor, Farxiga 5 mg daily, given CAD and CKD. - continue Trajenta - consider GLP-1 agonist - continue diligent glucose monitoring with CGM due to hypo- and hyperglycemic episodes - Previously on metformin, but discontinued due to CKDIII - Last eye exam: July 2022, proliferative diabetic retinopathy - Last foot exam: 09/25/21. High-risk. PAD. Neuropathy. s/p amputation of left big-toe. - Last microalbumin test: 10/31/22 UACR > 2000 - Last lipid profile: 10/31/22 TC 122; TG 162; HDL 44; LDL 60 - Last dental exam: ? Follow-up in 3 mo Assessment & Plan (02/26/2023 12:11 PM EST): - A1C 6.9% on 10/31/22, improved from 8.8% on 03/29/22 - last seen by hand candy dipper, Dr. Herndon in Apr 2022. - Continue basal insulin: Tresiba 11 units qhs - Continue bolus insulin: Novolog 5 units with each meal for now. Consider increasing due to worsening A1C. - continue SGLT-2 inhibitor, Farxiga 5 mg daily, given CAD and CKD. - continue Trajenta - consider GLP-1 agonist - continue diligent glucose monitoring with CGM due to hypo- and hyperglycemic episodes - Previously on metformin, but discontinued due to CKDIII - Last eye exam: Overdue. Previously followed by Dr. Leroy. Cataract surgery in 2016. - Last foot exam: 09/25/21. High-risk. PAD. Neuropathy. s/p amputation of left big-toe. - Last microalbumin test: 10/31/22 UACR > 2000 - Last lipid profile: 10/31/22 TC 122; TG 162; HDL 44; LDL 60 - Last dental exam: ? Follow-up in 3 mo Assessment & Plan (11/12/2022 11:15 AM EDT): - A1c 6/9% on 10/31/22, improved from 8.8% on 03/29/22 - last seen by [facility] hand candy dipper on 02/20/21. Refer to a new hand candy dipper for transportation convenience. - Continue basal insulin: Tresiba 11 units qhs - Continue bolus insulin: Novolog 5 units with each meal for now. Consider increasing due to worsening A1C. - continue SGLT-2 inhibitor, Farxiga 5 mg daily, given CAD and CKD. - consider GLP-1 agonist - continue diligent glucose monitoring with CGM due to hypo- and hyperglycemic episodes - Previously on metformin, but discontinued due to CKDIII - Last eye exam: Overdue. Previously followed by Dr. Leroy. Cataract surgery in 2016. - Last foot exam: 09/25/21. High-risk. PAD. Neuropathy. s/p amputation of left big-toe. - Last microalbumin test: 10/31/22 UACR > 2000 - Last lipid profile: 10/31/22 TC 122; TG 162; HDL 44; LDL 60 - Last dental exam: ? Follow-up in 3 mo Assessment & Plan (06/11/2022 8:56 AM EDT): - A1c 8.8% on 03/29/22, worsened from 7.8% on 09/25/21 - last seen by [facility] hand candy dipper on 02/20/21. Refer to a new hand candy dipper for transportation convenience. - Continue basal insulin: Tresiba 11 units qhs - Continue bolus insulin: Novolog 5 units with each meal for now. Consider increasing due to worsening A1C. - continue SGLT-2 inhibitor, Farxiga 5 mg daily, given CAD and CKD. - consider GLP-1 agonist - continue diligent glucose monitoring with CGM due to hypo- and hyperglycemic episodes - Previously on metformin, but discontinued due to CKDIII - Last eye exam: Overdue. Previously followed by Dr. Leroy. Cataract surgery in 2016. - Last foot exam: 09/25/21. High-risk. PAD. Neuropathy. s/p amputation of left big-toe. - Last microalbumin test: 04/26/21, UACR 4035. - Last lipid profile: 02/17/21 TC 1145; TG 99; HDL 46; LDL 80 - Last dental exam: ? Follow-up in 3 mo Assessment & Plan (04/01/2022 12:12 PM EST): - A1c 8.8% today 03/29/22, worsened from 7.8% on 09/25/21 - last seen by [facility] hand candy dipper on 02/20/21. Refer to a new hand candy dipper for transportation convenience. - Continue basal insulin: Tresiba 11 units qhs - Continue bolus insulin: Novolog 5 units with each meal for now. Consider increasing due to worsening A1C. - continue SGLT-2 inhibitor, Farxiga 5 mg daily, given CAD and CKD. - consider GLP-1 agonist - continue diligent glucose monitoring with CGM due to hypo- and hyperglycemic episodes - Previously on metformin, but discontinued due to CKDIII - Last eye exam: Overdue. Previously followed by Dr. Leroy. Cataract surgery in 2016. - Last foot exam: 09/25/21. High-risk. PAD. Neuropathy. s/p amputation of left big-toe. - Last microalbumin test: 04/26/21, UACR 4035. - Last lipid profile: 02/17/21 TC 1145; TG 99; HDL 46; LDL 80 - Last dental exam: ? Follow-up in 3 mo Resolved Problems Problem Noted Date Diagnosed Date Resolved Date Acute hypoxemic respiratory failure 09/26/2023 10/20/2023 Anasarca 09/26/2023 10/20/2023 CHF exacerbation 09/26/2023 10/20/2023 Foreign body of toe of right foot 09/26/2023 10/20/2023 PAT (paroxysmal atrial tachycardia) 09/26/2023 10/23/2023 Uremia 09/26/2023 10/20/2023 Diarrhea 06/05/2022 10/23/2023 Assessment & Plan (02/25/2023 5:06 AM EST): - pt was referred to GI in Apr 2022 and still has been waiting for an appt. - will refer to another GI - keep therapeutic TSH / euthyroid - consider changing Boost Diabetes to Plant-based Boost diabetes, if Boost for Diabetic patients contain lactose - monitor electrolytes since she already has abnormal electrolyte levels. Assessment & Plan (11/12/2022 11:08 AM EDT): - pt was referred to GI in Apr 2022 and still has been waiting for an appt. - will refer to another GI - keep therapeutic TSH / euthyroid - consider changing Boost Diabetes to Plant-based Boost diabetes, if Boost for Diabetic patients contain lactose - monitor electrolytes since she already has abnormal electrolyte levels. Assessment & Plan (06/11/2022 8:57 AM EDT): -refer to GI Chronic toe pain, left foot 06/05/2022 07/26/2023 Assessment & Plan (06/11/2022 8:54 AM EDT): Refer to hair cutter Obesity 11/07/2011 03/29/2022 Encounters Date Type Department Care Team Description 03/23/2024 Refill [facility] [address] [place] [address] Wanda Beal ANP Type 2 diabetes mellitus with stage 4 chronic kidney disease, with long-term current use of insulin ([facility]) 03/23/2024 Refill [facility] [address] [place] [address] Senait Car MD 03/04/2024 Telephone [facility] [address] [place] [address] Coreen Mondragon MA march02/15/2024 Refill [facility] [address] [place] [address] Senait Car MD Type 2 diabetes mellitus with stage 4 chronic kidney disease, with long-term current use of insulin ([facility]) 02/06/2024 Refill [facility] [address] [place] [address] Senait Car MD 01/17/2024 Orders Only [facility] [address] [place] [address] Senait Car MD 01/15/2024 Orders Only [facility] [address] [place] [address] Senait Car MD Hearing loss of left ear, unspecified hearing loss type (Primary Dx); Meningioma ([facility]) 01/14/2024 Telephone [facility] [address] [facility] [place] [address] Senait Car MD Appointment Request from Last 3 Months Immunizations Name Administration Dates Next Due Hep A, Adult 10/31/2022 Hep B, adult 06/17/2014,02/09/2014,09/15/2013 Influenza High-dose Quadriva lent Preservative Free 01/04/2023 Influenza Injectable Quadriv alant Preservative Free IIV4 MDCK 01/14/2020 Influenza Quadrivalent Adjuvanted 01/24/2022 Influenza injectable quadriv alent IIV4 with preservative 01/23/2017,01/09/2016 Influenza injectable quadriv alent preservative free 02/28/2015 Influenza, IIV3, injectable 02/09/2014, 1 Influenza, Split (incl. ned fied surface antigen) 11/26/2012,02/05/2012 Pfizer Covid-19 Vaccine 12+ 11/29/2020, 1 Pfizer Covid-19 Vaccine 12+ Bivalent 03/29/2022 Pneumococcal Conjugate PCV 20 10/31/2022 Pneumococcal Polysaccharide PPSV23 02/26/2011 TD (adult), 2 Lf tetanus tox oid, preservative free, adsorbed 07/28/2021 Tdap 06/06/2022,02/26/2011 Zoster, Recombinant 01/14/2020,11/10/2019 Social History Tobacco Use Types Packs/Day Years Used Date Smoking Tobacco: Former Cigarettes 0.5 40 0 11/30/1982 - 11/30/2022 Passive Smoke Exposure: Past Smokeless Tobacco: Never Tobacco Cessation:Counseling Given: Not Answered Alcohol Use Standard Drinks/Week Comments Not Currently 0 (1 standard drink = 0.6 oz pur e alcohol) Alcohol Answer Date Recorded Frequency of Alcohol Consumption Not on file 10/22/2023 Average Number of Drinks Not on file 024 Frequency of Binge Drinking Not on file 0808/2023 Score 0 10/22/2023 Depression Answer Date Recorded Patient Health Questionnaire-9 Score 7 10/31/2022 Housing Stability Answer Date Recorded What is your housing situation today? I have marion vásquez 07/23/[address] you li ve. Do you have problems with any of the following? None of the above 07/23/2023 Food Insecurity Answer Date Recorded Within the past 12 months, y ou worried that your food would run out before you got money to buy more: Never True 07/23/2023 Within the past 12 months,th e food you bought just didn't last and you didn't have enough money to get more: Never True 09/2023 Transportation Answer Date Recorded In the past 12 months, has l ack of transportation kept you from medical appts, meetings, work or from getting things needed for daily living? No 07/23/2023 Utilities Answer Date Recorded In the past 12 months, has t he electric, gas, oil or water company threatened to shut off services in your home? No 07/23/2023 Depression Answer Date Recorded Patient Health Questionnaire-2 Score 2 10/31/2022 Comments Unknown Sex and Gender Information Value Date Recorded Sex Assigned at Female 01/15/2022 10:22 AM EDT Legal Sex Female 10:22 AM EDT Gender Identity Female 01/15/2022 10:22 AM EDT Sexual Orientation Straight 01/15/2022 10 :22 AM EDT Last Filed Vital Signs Vital Sign Reading Time Taken Comments Blood Pressure 128/69 10/22/2023 9:18 AM EDT Pulse 75 10/22/2023 9:18 AM EDT Temperature 36.1 ??C (96.9 ??F) 10/22/2023 9:18 AM ED T Respiratory Rate 16 10/22/2023 9:18 AM EDT Oxygen Saturation 98% 10/22/2023 9:18 AM EDT Inhaled Oxygen Concentration - - Weight 61.7 kg (136 lb) 10/22/2023 9:18 AM EDT Height 152.5 cm (5' 0.05 ) 09/24/2023 1:57 PM ED T Body Mass Index 26.52 09/24/2023 1:57 PM EDT Plan of Treatment Health Maintenance Due Date Last Done Comments CT Colonography 1955 Colonoscopy 1955 Colorectal Cancer Screening 1955 FIT DNA/Cologuard 1955 FIT 1955 FOBT 1955 Sigmoidoscopy 1955 Hepatitis C Screening 1972 Lung Cancer Screening 2004 RSV Patients and Patients Aged 60 years or older (1 - Risk 60-74 years 1-dose series) 2014 Hepatitis A Vaccines (2 of 2 - Risk 2-dose series) 05/03/2023 10/31/2022 Depression Screening 11/01/2023 10/31/2022, 11/01/19 23 COVID-19 Vaccine ( season) 2023 03/29/2022, 11/29/2020, 11/08/2020 Influenza Vaccine (#1) 2023 , 01/24/2022, 01/14/2020, Additional history exists Diabetes: Hemoglobin A1C 04/23/2024 024, 09/05/2023, 08/22/2023, Additional history exists SDOH Screening 07/22/2024 07/23/2023 Eye Exam 08/04/2024 08/04/2022 Diabetes: Foot Exam 08/21/2024 08/22/2023 Lipid Panel 09/04/2024 09/05/2023, 0808/2022, 02/17/2021, Additional history exists Alcohol/Substance Use Screening 10/21/2024 10/22/2023 Tobacco Screening 10/21/2024 10/22/2023 Mammogram 01/16/2026 01/17/2024, 07, 06/15/2021, Additional history exists DTaP/Tdap/Td Vaccines (4 - Td or Tdap) 06/06/2032 06/06/2022, 07/28/2021, 02/26/2011 Hepatitis B Vaccines Completed 06/17/2014, 02/09/2014, 09/15/2013 Zoster Vaccines Completed 01/14/2020, 11/10/2019 Pneumococcal Vaccine: 65+ Years Completed 10/31/2022, 02/26/2011 HIB Vaccines Aged Out No longer eligi ble based on patient's age to complete this topic HPV Vaccines Aged Out No longer eligi ble based on patient's age to complete this topic IPV Vaccines Aged Out No longer eligi ble based on patient's age to complete this topic Meningococcal Vaccine Aged Out No thierno sivakumar eligible based on patient's age to complete this topic RSV under 20 months Aged Out No longe r eligible based on patient's age to complete this topic Rotavirus Vaccines Aged Out No longer eligible based on patient's age to complete this topic Goals Goal Patient Goal Type Associated Problems Recent Progress Patient-Stated? Author Blood Pressure < 140/90 Blood Pressure 128/69( 024 9:18 AM EDT) No Gustabo Fernandez PharmD Quit using tobacco (cigarettes, smokeless, etc) Tobacco Use No Gustabo Fernandez PharmD Procedures Procedure Name Priority Date/Time Associated Diagnosis Comments BI MAMMOGRAM SCREENING TOMOSYNTHESIS BILATERAL Routine 01/17/2024 3:00 PM EDT POCT GLYCOSYLATED HEMOGLOBIN (HGB A1C) Routine 10/22/2023 9:20 AM EDT Type 2 diabetes mellitus with diabetic peripheral angiopathy without gangrene, with long-term current use of insulin ([facility]) LIPID PANEL WITH REFLEX TO DIRECT LDL Routine 09/05/2023 3:02 PM EDT Dyslipidemia 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 chronic dialysis, with long-term current use of insulin ([facility]) DIABETES EYE EXAM Routine 08/04/2022 from Last 3 Months or Most Recently Relevant to Health Maintenance Results * BI Mammogram Screening Tomosynthesis Bilateral (01/17/2024 3:00 PM EDT) Anatomical Region Laterality Modality Breast Bilateral Mammography 01/17/2024 3:00 PM EDT Narrative 01/27/2024 7:44 PM EST ? [facility] ? [address] ?[place] [address] ? Mammography Report ? Signed ? Patient: Garcíagasper Choeos,Iris N ?MR#: ?? [id number] ? : 1955 ?Acct:[id number] ? Age/Sex: 68 / F ?ADM Date: 11/01/24 ? Loc: HO.MAMMO ? Attending Dr: Senait Car MD ? Ordering Physician: Senait Car MD ?Results: 2Benign F ?? indings ? Date of Service: 01/17/24 ?Follow Up: 1 Year From Orig ?? inal Mammogram ? Procedure(s): MM tomosynthesis screening BI ?? Accession Number(s): [id number] ? cc: Senait Car MD ? EXAMINATION: ?? MM SCREENING DIGITAL BREAST TOMOSYNTHESIS, BILATERAL ? CLINICAL INFORMATION: ? Screening. Asymptomatic. ? COMPARISON: ?? Mammography: Comparison is made with available priors ? TECHNIQUE: ?? Digital breast mammography with tomosynthesis is performed in both the ?? craniocaudal and mediolateral oblique views along with computer-aided ?? detection (CAD). ? FINDINGS: ?? There are scattered areas of fibroglandular density (ACR BI-RADS breast ?? composition Category b). ?? Circumscribed oval mass lower outer left breast is stable. ?? There are no significant masses, abnormal calcifications, or other ?? abnormalities. ? MM/MM tomosynthesis screening BI ?? IMPRESSION: ?? No mammographic evidence of malignancy. ? ASSESSMENT: ? BI-RADS BI-RADS 2 - Benign Findings ? RECOMMENDATION: ?? Routine annual mammography screening. ? 1 year F/U ? This examination should not preclude the clinical evaluation of a ?? suspicious palpable abnormality. ? This patient's information was entered into a reminder system with a ?? target due date for their next mammogram. ? Electronically signed by: ??Camilla Poole DO ??01/27/2024 07:41 PM EST ?? RP ? Dictated By: ?Camilla Poole DO ? Signed By: ?<Electronically signed by Camilla Poole, DO in OV> ? 01/27/24 1941 ? DD/ 1500 ? TD/TT: 01/17/24 1515 ? Shotgun Shell Assembly Machine Operator: ? Procedure Note Donmarisater, Image - 01/27/2024 [facility] [address] [place] [address] Mammography Report Signed Patient: Sarah Jones NMR#: [id number] : 5Acct:[id number] Age/Sex: 68 / FADM Date: 01/17/24 Loc: HO.MAMMO Attending Dr: Senait Car MD Ordering Physician: Senait Car MDResults: 2Benign F indings Date of Service: 01/17/24Follow Up: 1 Year From Orig ina Mammogram Procedure(s): MM tomosynthesis screening BI Accession Number(s): [id number] cc: Senait Car MD EXAMINATION: MM SCREENING DIGITAL BREAST TOMOSYNTHESIS, BILATERAL CLINICAL INFORMATION: Screening. Asymptomatic. COMPARISON: Mammography: Comparison is made with available priors TECHNIQUE: Digital breast mammography with tomosynthesis is performed in both the craniocaudal and mediolateral oblique views along with computer-aided detection (CAD). FINDINGS: There are scattered areas of fibroglandular density (ACR BI-RADS breast composition Category b). Circumscribed oval mass lower outer left breast is stable. There are no significant masses, abnormal calcifications, or other abnormalities. MM/MM tomosynthesis screening BI IMPRESSION: No mammographic evidence of malignancy. ASSESSMENT: BI-RADS BI-RADS 2 - Benign Findings RECOMMENDATION: Routine annual mammography screening. 1 year F/U This examination should not preclude the clinical evaluation of a suspicious palpable abnormality. This patient's information was entered into a reminder system with a target due date for their next mammogram. Electronically signed by: Camilla oPole DO 01/27/2024 07:41 PM EST Dictated By: Camilla Poole DO Signed By: <Electronically signed by Camilla Poole DO in OV> 01/27/24 194 DD/ 1500 TD/TT: 01/17/24 1515 Shotgun Shell Assembly Machine Operator: us Senait Car MD IMG BI PROCEDURES Edited Result - Final * (ABNORMAL) POCT glycosylated hemoglobin (Hgb A1c) (10/22/2023 9:20 AM EDT) Hemoglobin A1C 6.7(A) 4.0 - 6.0 % QC Media Lot # [id number] Lot# Expiration Date 006,097 Blood Capillary blood specimen / Unknown 10/22/2023 9:20 AM EDT Senait Car MD POINT OF CARE TEST ENTER/EDIT OR DERABLES Final Result * (ABNORMAL) Lipid Panel with Reflex to Direct LDL (09/05/2023 3:02 PM EDT) Triglycerides 95 <150 mg/dL [facility] Comment:Desirable Triglyceri de: less than 150 mg/dLBorderline High Triglyceride 150-199 mg/dLHigh Triglyceride: 200-499 mg/dLVery High Triglyceride: greater than or equal to 5OO mg/dL Cholesterol 99 <200 mg/dL [facility] Comment:Desirable Cholestero l: less than 200 mg/dLBorderline High Cholesterol: 200-239 mg/dLHigh Cholesterol: greater than 239 mg/dL LDL Cholesterol Calculated 47 <100 mg/dL [facility] Comment:Desirable LDL: less than 100 mg/dLNear Optimal/Above Optimal LDL: 110- 129 mg/dLBorderline High LDL: 130-159 mg/dLHigh LDL: 160-189 mg/dLVery High LDL: greater than or equal to 190 mg/dL HDL Cholesterol 33(L) >40 mg/dL [facility] Comment:Desirable HDL: great er than 40 mg/dL Note: This HDL assay may give artificially low results in patients with liver disease. Blood 09/05/2023 3:02 PM EDT 09/05/2023 3:03 PM EDT Senait Car MD LAB BLOOD ORDERABLES Final Resul t [facility] [address] [place] [address] [phone] * Diabetes Eye Exam (08/04/2022) Eye Exam Normal Normal [facility] Unassigned Pcp HEALTH MAINTENANCE Final Result from Last 3 Months or Most Recently Relevant to Health Maintenance Insurance * Guarantor: Sarah Jones Account Type Relation to Patient Date of Phone Billing Address Personal/Family Self [address] [place] [id number] [facility] * Guarantor: Sarah Jones Account Type Relation to Patient Date of Phone Billing Address Personal/Family Self [address] [place] [id number] * Guarantor: Sarah Jones Account Type Relation to Patient Date of Phone Billing Address Personal/Family Self [address] [place] [id number] * Guarantor: Sarah Jones Account Type Relation to Patient Date of Phone Billing Address Personal/Family Self [address] [facility] [place] [address] Care Teams Direct Sales Representative Relationship Specialty Start Date End Date Senait Car MD [address] [place] [address] PCP - General Family Medicine 02/22/20 Gustabo Fernandez, HarshaD [address] [place] [address] Pharmacist Internal Medicine 07/16/22 [facility] 09/14/23
--- OUTSIDE RECORDS SUMMARY | 2024-04-14 14:16 | XMS_ITS | Encounter Summary ---
Author Organization [employer] Address [address] [place] [address] Care Team Providers Care Front Elevator Operator Name Role Phone Senait Pal MD Primary Care Provider [phone] Gustabo Fernandez PharmD Unavailable [phone] Reason for Visit * Reason Onset Date Comments Nurse Triage 09/26/2023 Encounter Details Date Type Department Care Team ([facility] st Contact Info) Description 09/26/2023 Telephone [facility] [address] [place], [place] [phone] Senait Pal MD [address] [place], [place] [phone] Nurse Triage Social History Tobacco Use Types Packs/Day Years [...] encounter Miscellaneous Notes * Telephone Encounter - Kat Araujo RN - 09/26/2023 10:30 AM EDT TC placed to pt in regards to triage call this morning for increased anxiety and outbursts at home.Pt was concerned as her medication Sertraline was recently discontinued. Pt was looking for an alternative medication from PCP to alleviate current symptoms. Per Dr. Pal, the Sertraline was discontinued due to irregular heart rhythms. PCP advised pt having a EKG performed to see if QTC wave hasbecome normalized. If so, the sertraline maybe restarted. Pt has a scheduled appt with Radha Antonio on 09/30/23 where an EKG can be done and pt assessed for increased anxiety. RN advised pt that if this appt can't be made or symptoms worsen to be seen in the [facility]. Pt agreeable to plan and stated unders tanding. Forwarding to PCP and Radha Burciaga for FYI * Telephone Encounter - Brielle Henry LPN - 09/26/2023 9:34 AM EDT Triage call returned to patient who reports increased anxiety and crying and outburst while at homeand while in the community. Patient reports that a medication was discontinued by ( patient confirms who is [facility] and not her PCP ? )and that since that time she is having issues. Name of medication unknown, believes it was approx one month ago. No documentation identified at time of call. Patient denies SI/HI but reports that she is screaming out and then slapping her own face when agitated. Disposition reviewed and no pCP appts available. ASK/E.Patrica DOUBLE END SEWER on 09/30/23 @330pm following dialysis. [facility] clinicians explained to patient who was not open for contact today.Reviewed with patient home care recommendations, reasons to call back and symptoms that require immediate evaluation in UC or ER. Pt verbalized understanding and agrees. Team tasked to update PCP on patient status. Protocol Used: Anxiety and Panic Attack (Adult) Protocol-Based Disposition: See in Office or Video Visit within 3 Days Video visit not offered Positive Triage Question: * Moderate anxiety (e.g., persistent or frequent anxiety symptoms; interferes with sleep, school, or work) * All higher-acuity triage questions were negative Care Advice Discussed: * Avoid Caffeine * Avoid Triggers of Anxiety * Reasons To Call Back - Anxiety or panic attacks continue - You feel like harming yourself - You become worse * Telephone Encounter - Megan Baum - 09/26/2023 9:07 AM EDT Symptom: Anxiety or Panic Attack Outcome: Schedule an urgent appointment (within 4 hours) or talk to a nurse or provider soon Reason: Anxiety keeps from normal daily activities (such as school or work) The caller accepted this outcome Pt stated symptoms started when Dr Sepulveda take her out a med. documented in this encounter Plan of Treatment [...] Noted Time PHQ-9 Depression Total Score: 7 08/16/20 23 11:04 AM EDT documented as of this encounter Care Teams Front Elevator Operator Relationship Specialty Start Date End Date Senait Pal MD [address] [place] [address] PCP - General Family Medicine 02/22/20 Gustabo Fernandez, HarshaD [address] [place] [address] Pharmacist Internal Medicine 07/16/22 [facility] 09/14/23 documented as of this encounter
--- OUTSIDE RECORDS SUMMARY | 2024-04-14 14:16 | XMS_ITS | Encounter Summary ---
Demographics Address [address] [place] [address] Mobile Phone Home Phone Email Address Preferred Language en Marital Status Single Mormon Affiliation Unknown Race Other Race Ethnic Group or Author Organization [employer] Address [address] [place] [address] Care Team Providers Care Validation Consultant Name Role Phone Senait Pal MD Primary Care Provider [phone] Gustabo Fernandez PharmD Unavailable [phone] Reason for Visit * Reason Comments Med Refill Encounter Details Date Type Department Care Team ([facility] st Contact Info) Description 03/23/2024 Refill [facility] MEDICINE [address] [place], [place] [phone] Wanda Beal, ANP [address] [place], [place] [phone] Type 2 diabetes mellitus with stage 4 chronic kidney disease, with long-term current use of insulin ([facility]) Social History Tobacco Use Types Packs/Day Years [...] Frequency of Binge Drinking Not on file 08/2023 Score 0 10/22/2023 Depression Answer Date Recorded [...] the past 12 months, has t he [employer], gas, oil or water company threatened to [...] as of this encounter Visit Diagnoses Diagnosis Type 2 diabetes mellitus with stage 4 chronic kidney disease, with long-term current use of insulin ([facility]) documented in this encounter Additional Health Concerns Assessment Noted Time PHQ-9 Depression Total Score: 7 11/01/19 23 11:04 AM EDT documented as of this encounter Care Teams Validation Consultant Relationship Specialty Start Date End Date Senait Pal MD [address] [place] [address] PCP - General Family Medicine 02/22/20 Gustabo Fernandez PharmD [address] [place] [address] Pharmacist Internal Medicine 07/16/22 [facility] 09/14/23 documented as of this encounter
--- OUTSIDE RECORDS SUMMARY | 2024-04-14 14:16 | XMS_ITS | Encounter Summary ---
Author Organization [employer] Address [address]t [place] [address] Care Team Providers Care Diploma Maker Name Role Phone Senait Pal MD Primary Care Provider [phone] Gustabo Fernandez PharmD Unavailable [phone] Reason for Visit * Reason Comments Med Refill Encounter Details Date Type Department Care Team ([facility] st Contact Info) Description 10/09/2023 Refill [facility] MEDICINE 230 [place], [place] [phone] Senait Pal MD 230 [place], [place] [phone] Type 2 diabetes mellitus with stage 4 chronic kidney disease, with long-term current use of insulin ([facility]) Social History Tobacco Use Types Packs/Day [...] is your housing situation today? I have marionmarcelo vásquez 07/23/[address] [...] disease, with long-term current use of insulin ([facility]) documented in this encounter Additional Health Concerns Assessment Noted Time PHQ-9 Depression Total Score: 7 11/01/19 23 11:04 AM EDT documented as of this encounter Care Teams Diploma Maker Relationship Specialty Start Date End Date Senait Pal MD [address] [place] [address] PCP - General Family Medicine 02/22/20 Gustabo Fernandez PharmD [address] [place] [address] Pharmacist Internal Medicine 07/16/22 [facility] 09/14/23 documented as of this encounter
--- OUTSIDE RECORDS SUMMARY | 2024-04-14 14:16 | XMS_ITS | Encounter Summary ---
Author Organization [employer] Address [address] 7t [place] [address] Care Team Providers Care Powerhouse Electrician Apprentice Name Role Phone Senait Pal MD Primary Care Provider [phone] Gustabo Fernandez PharmD Unavailable [phone] Reason for Referral * Imaging (Routine) - Closed Specialty Diagnoses / Procedures Referred By Contac t Referred To Contact Diagnoses Enlarged lymph node in neck Procedures US guided biopsy lymph node superficial Senait Pal MD 230 [place] [address] Phone: tel: fax: [address] Phone: tel: fax: Referral ID Status Reason Start Date Expiration Date Visits Re quested Visits Authorized [id number] Closed 07/03/2022 12/30/2022 1 1 Encounter Details Date Type Department Care Team (Late st Contact Info) Description 07/03/2022 Orders Only [facility] MEDICINE 230 [place], [place] [phone] Senait Pal MD 230 [place], [place] [phone] Enlarged lymph node in neck (Primary Dx) Social History Tobacco Use Types Packs/Day Years [...] Type Priority Associated Diagnoses Orde r Schedule US guided biopsy lymph node superficial Imaging Routine Enlarged lymph node in neck Expected: 07/03/2022 (Approximate), Expires: 07/04/2023 documented as of this encounter Visit Diagnoses Diagnosis Enlarged lymph node in neck- Primary documented in this encounter Care Teams Powerhouse Electrician Apprentice Relationship Specialty Start Date End Date Senait aPl MD 230 [place] [address] PCP - General Family Medicine 02/22/20 Gustabo Fernandez, HarshaD 230 [place] [address] Pharmacist Internal Medicine 07/16/22 [facility] 09/14/23 documented as of this encounter
--- OUTSIDE RECORDS SUMMARY | 2024-04-14 14:16 | XMS_ITS | Encounter Summary ---
Author Organization [employer] Address [address] 7t [place] [address] Care Team Providers Care Account Executive Trainee Name Role Phone Senait Pal MD Primary Care Provider [phone] Gustabo Fernandez PharmD Unavailable [phone] Reason for Visit * Reason Comments Med Refill Encounter Details Date Type Department Care Team ([facility] st Contact Info) Description 01/31/2023 Refill [facility] MEDICINE [address] [place], [place] [phone] Senait Pal MD [address] [place], [place] [phone] Moderate episode of recurrent major depressive disorder (CMS/HCC) Social History Tobacco Use Types Packs/Day Years Used Date Smoking Tobacco: Former Cigarettes 0.5 40 0 11/30/1982 - 11/30/2022 Passive Smoke Exposure: Never Smokeless Tobacco: Never Alcohol Use Standard Drinks/Week [...] documented as of this encounter Care Teams Account Executive Trainee Relationship Specialty Start Date End Date Senait Pal MD [address] [place] [address] PCP - General Family Medicine 02/22/20 Gustabo Fernandez, PharmD [address] [place] [address] Pharmacist Internal Medicine 07/16/[address] [facility] 09/14/23 documented as of this encounter
--- OUTSIDE RECORDS SUMMARY | 2024-04-14 14:16 | XMS_ITS | Encounter Summary ---
Author Organization [employer] Address [address] 7[address] [place] [address] Care Team Providers Care Pin Pusher Name Role Phone Senait Pal MD Primary Care Provider [phone] Gustabo Fernandez PharmD Unavailable [phone] Reason for Visit * Reason Onset Date Comments Forms/questionnaires 12/20/2022 Encounter Details Date Type Department Care Team ([facility] st Contact Info) Description 12/20/2022 Telephone [facility] MEDICINE 230 [place] [address] Senait Pal MD [address] [place] [address] Forms/questionnaires Social History Tobacco Use Types Packs/Day Years Used Date Smoking Tobacco: Every Day Cigarettes 0.5 40 Passive Smoke Exposure: Never Smokeless Tobacco: Never Alcohol Answer Date Recorded Frequency of Alcohol Consumption Not on file 10/22/2023 Average Number of Drinks Not on file 024 Frequency of Binge Drinking Not on file 08/2023 Score 0 10/22/2023 Depression Answer Date Recorded Patient Health Questionnaire-9 Score 7 10/31/2022 Housing Stability Answer Date Recorded What is your housing situation today? I have marion thalia 07/23/[address] you li [...] encounter Miscellaneous Notes * Telephone Encounter - Denyn Esquivel - 12/20/2022 11:42 AM EDT Tc from pt stating [employer] sent forms Via e-mail directly to PCP . Pt spoke with HIM and was advised they did not receive any forms, to contact PCP office. Please contact at [phone] Vietnamese documented in this encounter Plan of Treatment [...] documented as of this encounter Care Teams Pin Pusher Relationship Specialty Start Date End Date Senait Pal MD [address] [place] [address] PCP - General Family Medicine 02/22/20 Gustabo Fernandez, PharmD [address] [place] [address] Pharmacist Internal Medicine 07/16/22 [facility] 09/14/23 documented as of this encounter
--- OUTSIDE RECORDS SUMMARY | 2024-04-14 14:16 | XMS_ITS | Encounter Summary ---
Author Organization [employer] Address [address] 7t [place] [address] Care Team Providers Care Digital Account Coordinator Name Role Phone Senait Pal MD Primary Care Provider [phone] Gustabo Fernandez PharmD Unavailable [phone] Encounter Details Date Type Department Care Team ([facility] st Contact Info) Description 08/09/2022 Abstract [facility] [address] [place] [address] Senait Pal MD [address] [place] [address] Social History Tobacco Use Types Packs/Day Years [...] on filedocumented in this encounter Care Teams Digital Account Coordinator Relationship Specialty Start Date End Date eSnait Pal MD 230 [place] [address] PCP - General Family Medicine 02/22/20 Gustabo Fernandez, HarshaD [address] [place] [address] Pharmacist Internal Medicine 07/16/22 [facility] 09/14/23 documented as of this encounter
--- OUTSIDE RECORDS SUMMARY | 2024-04-14 14:16 | XMS_ITS | Encounter Summary ---
Author Organization [employer] Address [address] 7[address] [place] [address] Care Team Providers Care Jumpbasting Machine Operator Name Role Phone Senait Pal MD Primary Care Provider [phone] Gustabo Fernandez PharmD Unavailable [phone] Reason for Referral * Medications - Closed Specialty Diagnoses / Procedures Referred By Paul osborne Referred To Contact Diagnoses Type 2 diabetes mellitus with diabetic peripheral angiopathy without gangrene, with long-term current use of insulin (CMS/HCC) 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 chronic dialysis, with long-term current use of insulin (CMS/HCC) Senait Pal MD 230 [place] [address] Phone: tel: fax: Referral ID Status Reason Start Date Expiration Date Visits Re quested Visits Authorized [id number] Closed 1 1 * Medications - Closed Specialty Diagnoses / Procedures Referred By Paul osborne Referred To Contact Diagnoses Type 2 diabetes mellitus with diabetic peripheral angiopathy without gangrene, with long-term current use of insulin (CMS/HCC) 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 chronic dialysis, with long-term current use of insulin (CMS/HCC) Senait Pal MD 230 [place] [address] Phone: tel: fax: Referral ID Status Reason Start Date Expiration Date Visits Re quested Visits Authorized [id number] Closed 1 1 Encounter Details Date Type Department Care Team (Late st Contact Info) Description 09/24/2023 Orders Only [facility] MEDICINE [address] [place] [address] Senait Pal MD [address] [place] [address] Type 2 diabetes mellitus with diabetic peripheral angiopathy without gangrene, with long-term current use of insulin (CMS/HCC) (Primary Dx); 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 chronic dialysis, with long-term current use of insulin (CMS/HCC); Pain in both lower extremities Social History Tobacco Use Types Packs/Day Years [...] 024 9:18 AM EDT) No Gustabo Fernandez, Agnes Quit using tobacco (cigarettes, smokeless, etc) Tobacco Use No Gustabo Fernandez PharmD documented as of this encounter Visit Diagnoses Diagnosis Type 2 diabetes mellitus with diabetic peripheral angiopathy without gangrene, with long-term current use of insulin ([facility])- Primary 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 chronic dialysis, with long-term current use of insulin ([facility]) Pain in both lower extremities documented in this encounter Additional Health Concerns Assessment Noted Time PHQ-9 Depression Total Score: 7 11/01/19 23 11:04 AM EDT documented as of this encounter Care Teams Jumpbasting Machine Operator Relationship Specialty Start Date End Date Senait Pal MD 230 [place] [address] PCP - General Family Medicine 02/22/20 Gustabo Fernandez, HarshaD [address] [place] [address] Pharmacist Internal Medicine 07/16/22 [facility] 09/14/23 documented as of this encounter
--- OUTSIDE RECORDS SUMMARY | 2024-04-14 14:16 | XMS_ITS | Encounter Summary ---
Author Organization [employer] Address [address] [place] [address] Care Team Providers Care Element Setter Name Role Phone Senait Pal MD Primary Care Provider [phone] Gustabo Fernandez PharmD Unavailable [phone] Encounter Details Date Type Department Care Team ([facility] st Contact Info) Description 04/26/[address] [facility] MEDICINE 230 [place], [place] [phone] Senait Pal MD 230 [place], [place] [phone] Tobacco user (Primary Dx) Social History Tobacco Use Types [...] as of this encounter Visit Diagnoses Diagnosis Tobacco user- Primary Tobacco use disorder documented in this encounter Care Teams Element Setter Relationship Specialty Start Date End Date Senait Pal MD [address] [place], [place] [phone] PCP - General Family Medicine 02/22/20 Gustabo Fernandez, PharmD [address] [place] [address] Pharmacist Internal Medicine 07/16/22 [facility] 09/14/23 documented as of this encounter
--- OUTSIDE RECORDS SUMMARY | 2024-04-14 14:16 | XMS_ITS | Encounter Summary ---
Demographics Address [address] [place] [address] Mobile Phone Home Phone Email Address Preferred Language en Marital Status Single Mandaeism Affiliation Unknown Race Other Race Ethnic Group or Author Organization [employer] Address [address] [place] [address] Care Team Providers Care Care Transition Coordinator Name Role Phone Senait Pal MD Primary Care Provider [phone] Gustabo Fernandez PharmD Unavailable [phone] Encounter Details Date Type Department Care Team (Late st Contact Info) Description 12/31/2023 Orders Only [facility] External Provider, [facility] Social History Tobacco Use Types Packs/Day Years [...] smokeless, etc) Tobacco Use No Gustabo Fernandez PharmSpeedy documented as of this encounter Procedures Procedure Name Priority Date/Time Associated Diagnosis Comments IR CVC REMOV TUNNEL WO PRT/ESTATE TAX EXAMINER Routine 12/31/2023 1:00 PM EDT documented in this encounter Results * IR CVC REMOV TUNNEL WO PRT/PM (12/31/2023 1:00 PM EDT) Anatomical Region Laterality Modality X-Ray Angiograph y 12/31/2023 1:00 PM EDT Narrative 03/27/2024 3:17 PM EST ? [facility] ?[address] ?[place] [address] ?Interventional Radiology Rpt ? Signed ? Patient: Ricky So,Iris N ?MR#: ?? [id number] ? : 1955 ?Acct:[id number] ? Age/Sex: 68 / F ?ADM Date: 10/15/24 ? Loc: HO.RADIR ? Attending Dr: AMY LIU MD ? Ordering Physician: Amy Liu MD ?? Date of Service: 12/31/23 ?? Procedure(s): IR cvc remov tunnel wo prt/acid condenser ?? Accession Number(s): [id number] ? cc: Amy Liu MD ? Lund removal ? Patient presents with a tunneled central line for IV antibiotics. ?? Patient has completed IV antibiotic therapy. Referring physician ?? requests removal. ? The right chest wall suture was cut, and the right Lund catheter was ?? removed entirely from the right chest wall. Pressure was held until ?? hemostasis was a shared. A dry sterile dressing was applied to the ?? right chest wall. There were no immediate complications. ? IR/IR cvc remov tunnel wo prt/acid condenser ?? Impression: Lund removal. ? This procedure was performed by Noe Mason PA-C and supervised by ?? Fili ? Electronically signed by: ??Fitz Penn MD ??03/27/2024 03:15 PM EST RP ?? Workstation: [id number] ? Dictated By: ?Noe Mason ? Signed By: ?<Electronically signed by Noe Mason in OV> ? 03/27/24 1515 ?<Electronically signed by Fitz Penn MD in OV> ? 03/27/24 1517 ? DD/ 1300 ? TD/TT: 12/31/23 1352 ? Program Engagement Director: ? Procedure Note Lizbeth, Image - 03/27/2024 [place] [address] Interventional Radiology Rpt Signed Patient: Sarah Jones [facility]#: [id number] : 5Acct:[id number] Age/Sex: 68 / FADM Date: 12/31/23 Loc: [facility] Attending Dr: AMY LIU MD Ordering Physician: Amy Liu MD Date of Service: 12/31/23 Procedure(s): IR cvc remov tunnel wo prt/acid condenser Accession Number(s): [id number] cc: Amy Liu MD Lund removal Patient presents with a tunneled central line for IV antibiotics. Patient has completed IV antibiotic therapy. Referring physician requests removal. The right chest wall suture was cut, and the right Lund catheter was removed entirely from the right chest wall. Pressure was held until hemostasis was a shared. A dry sterile dressing was applied to the right chest wall. There were no immediate complications. IR/IR cvc remov tunnel wo prt/acid condenser Impression: Lund removal. This procedure was performed by Noe Mason PA-C and supervised by Dr. Penn Electronically signed by: Fitz Penn MD 03/27/2024 03:15 PM EST RP Workstation: [id number] Dictated By: Noe Mason Signed By: <Electronically signed by Noe Mason in OV> 03/27/24 1515 <Electronically signed by Fitz Penn MD in OV> 03/27/24 1517 DD/ 1300 TD/TT: 12/31/23 1352 Program Engagement Director: [facility] External Provider IMG IR PROCEDURES Final Result documented in this encounter Visit Diagnoses Not on filedocumented in this encounter Additional Health Concerns Assessment Noted Time PHQ-9 Depression Total Score: 7 11/01/19 23 11:04 AM EDT documented as of this encounter Care Teams Care Transition Coordinator Relationship Specialty Start Date End Date Senait Pal MD 230 [place] [address] PCP - General Family Medicine 02/22/20 Gustabo Fernandez, Agnes [address] [place] [address] Pharmacist Internal Medicine 07/16/22 [facility] 09/14/23 documented as of this encounter
--- OUTSIDE RECORDS SUMMARY | 2024-04-14 14:16 | XMS_ITS | Encounter Summary ---
Author Organization [employer] Address [address] [place] [address] Care Team Providers Care Boom Man Name Role Phone Senait Pal MD Primary Care Provider [phone] Gustabo Fernandez PharmD Unavailable [phone] Reason for Visit * Reason Onset Date Comments Other 11/21/2022 Results 11/21/2022 Encounter Details Date Type Department Care Team (Late st Contact Info) Description 11/21/[address] [facility] MEDICINE 230 [place] [address] Senait Pal MD [address] [place], [place] [phone] Other; Results Social History Tobacco Use Types Packs/Day Years [...] * Telephone Encounter - Lanny Coombs - 11/21/2022 2:14 PM EDT Tc from Yuliya at [facility] requesting on behalf of patient a new script for a glucose meter, current one doesn't work. Patient is also requesting results from kidney biopsy. Please call [phone]. documented in this encounter Plan of Treatment [...] documented as of this encounter Care Teams Boom Man Relationship Specialty Start Date End Date Senait Pal MD [address] [place] [address] PCP - General Family Medicine 02/22/20 Gustabo Fernandez, PharmD [address] [place] [address] Pharmacist Internal Medicine 07/16/22 [facility] 09/14/23 documented as of this encounter
--- OUTSIDE RECORDS SUMMARY | 2024-04-14 14:16 | XMS_ITS | Encounter Summary ---
Author Organization [employer] Address [address] [place] [address] Care Team Providers Care Jackerman Name Role Phone Senait Pal MD Primary Care Provider [phone] Gustabo Fernandez PharmD Unavailable [phone] Reason for Referral * Consultation (STAT) - Authorized Specialty Diagnoses / Procedures Referred By Contac t Referred To Contact Neurology Diagnoses Hearing loss of left ear, unspecified hearing loss type Meningioma (CMS/HCC) Senait Pal MD [address] [place], [place] Phone: tel: fax: Bianca Lockett MD [address] [place] [address] [place] [address] Phone: tel: fax: Referral ID Status Reason Start Date Expiration Date Visits Requested Visits Authorized [id number] Authorized Specialty Services Required 4 01/14/2025 1 1 Encounter Details Date Type Department Care Team (Late st Contact Info) Description 01/15/2024 Orders Only [facility] MEDICINE [address] [place] [address] Senait Pal MD [address] [place], [place] Hearing loss of left ear, unspecified hearing loss type (Primary Dx); Meningioma (CMS/HCC) Social History Tobacco Use Types Packs/Day [...] is your housing situation today? I have amrion vásquez 07/23/[address] you [...] of this encounter Plan of Treatment Scheduled Referrals Name Type Priority Associated Diagnoses Orde r Schedule Referral to Neurology Outpatient Referral STAT Hearing loss of left ear, unspecified hearing loss type Meningioma (CMS/HCC) Expected: 01/15/2024 (Approximate), Expires: 01/14/2025 documented as of this encounter Goals Goal Patient Goal Type Associated Problems Recent Progress Patient-Stated? Author Blood Pressure < 140/90 Blood Pressure 128/69( 024 9:18 AM EDT) No Gustabo Fernandez PharmD Quit using tobacco (cigarettes, smokeless, etc) Tobacco Use No Gustabo Fernandez PharmD documented as of this encounter Visit Diagnoses Diagnosis Hearing loss of left ear, unspecified hearing loss type- Primary Meningioma (CMS/HCC) Benign neoplasm of cerebral meninges documented in this encounter Additional Health Concerns Assessment Noted Time PHQ-9 Depression Total Score: 7 11/01/19 23 11:04 AM EDT documented as of this encounter Care Teams Jackerman Relationship Specialty Start Date End Date Senait Pal MD [address] [place] [address] PCP - General Family Medicine 02/22/20 Gustabo Fernandez PharmD [address] [place] [address] Pharmacist Internal Medicine 07/16/22 [facility] 09/14/23 documented as of this encounter
--- OUTSIDE RECORDS SUMMARY | 2024-04-14 14:16 | XMS_ITS | Encounter Summary ---
Author Organization [employer] Address [address] [facility] [address] [place] [address] Care Team Providers Care Computer Sciences Professor Name Role Phone Senait Pal MD Primary Care Provider [phone] Gustabo Fernandez PharmD Unavailable [phone] Reason for Referral * Imaging (Urgent) - Closed Specialty Diagnoses / Procedures Referred By Contac t Referred To Contact Radiology Diagnoses Open wound of right great toe, initial encounter Procedures MRI FOOT RIGHT W WO CONTRAST Senait Pal MD [address] [place] [address] Phone: tel: fax: [address] Phone: tel: fax: Referral ID Status Reason Start Date Expiration Date Visits Re quested Visits Authorized [id number] Closed 09/16/2023 09/15/2024 1 1 Encounter Details Date Type Department Care Team (Late st Contact Info) Description 09/16/2023 Orders Only [facility] MEDICINE [address] [place], [place] [phone] Senait Pal MD [address] [place], [place] [phone] Open wound of right great toe, initial encounter (Primary Dx); Depression, unspecified depression type Social History Tobacco Use Types Packs/Day Years [...] t he electric, gas, oil or water [employer] threatened to shut off services in your [...] Type Priority Associated Diagnoses Orde r Schedule MRI FOOT RIGHT W WO CONTRAST Imaging Urgent Open wound of right great toe, initial encounter Expected: 09/16/2023, Expires: 09/15/2024 documented as of this encounter Goals Goal Patient Goal Type Associated Problems Recent Progress Patient-Stated? Author Blood Pressure < 140/90 Blood Pressure 128/69( 024 9:18 AM EDT) No Gustabo Fernandez, PharmD Quit using tobacco (cigarettes, smokeless, etc) Tobacco Use No Gustabo Fernandez, PharmD documented as of this encounter Visit Diagnoses Diagnosis Open wound of right great toe, initial encounter- Primary Depression, unspecified depression type documented in this encounter Additional Health Concerns Assessment Noted Time PHQ-9 Depression Total Score: 7 11/01/19 23 11:04 AM EDT documented as of this encounter Care Teams Computer Sciences Professor Relationship Specialty Start Date End Date Senait Pal MD [address] [place] [address] PCP - General Family Medicine 02/22/20 Gustabo Fernandez, HarshaD [address] [place] [address] Pharmacist Internal Medicine 07/16/22 [facility] 09/14/23 documented as of this encounter
--- OUTSIDE RECORDS SUMMARY | 2024-04-14 14:16 | XMS_ITS | Encounter Summary ---
Author Organization [employer] Address [address] [facility] [address] [place] [address] Care Team Providers Care Dry Food Products Mixer Name Role Phone Senait Pal MD Primary Care Provider [phone] Gustabo Fernandez PharmD Unavailable [phone] Encounter Details Date Type Department Care Team ([facility] st Contact Info) Description 10/30/2023 Orders Only [facility] MEDICINE [address] [place], [place] [phone] Senait Pal MD [address] [place], [place] [phone] Social History Tobacco Use Types Packs/Day Years [...] documented as of this encounter Care Teams Dry Food Products Mixer Relationship Specialty Start Date End Date Senait Pal MD [address] [place] [address] PCP - General Family Medicine 02/22/20 Gustabo Fernandez PharmD [address] [place] [address] Pharmacist Internal Medicine 07/16/[address] [facility] 09/14/23 documented as of this encounter
--- OUTSIDE RECORDS SUMMARY | 2024-04-14 14:16 | XMS_ITS | Encounter Summary ---
Author Organization [employer] Address [address] [facility] [address] 7[address] [place] [address] Care Team Providers Care Quality Assurance Advisor Name Role Phone Senait Pal MD Primary Care Provider [phone] Gusatbo Fernandez PharmD Unavailable [phone] Encounter Details Date Type Department Care Team ([facility] st Contact Info) Description 02/26/2023 Orders Only [facility] MEDICINE [address] [place], [place] [phone] Senait Pal MD [address] [place], [place] [phone] Social History Tobacco Use Types Packs/Day Years [...] Procedure Name Priority Date/Time Associated Diagnosis Comments VITAMIN D 25-OH (D2 AND D3) Routine 02/26/2023 2:25 PM EST PTH, INTACT WITHOUT CALCIUM Routine 02/26/2023 2:25 PM EST CALCIUM, IONIZED Routine 02/26/2023 2:25 PM EST documented in this encounter Results * VITAMIN D 25-OH (D2 AND D3) (02/26/2023 2:25 PM EST) Vitamin D, 25-OH, D2 <4 ng/mL [facility] Comment:This test was reagan cerda and its analytical performancecharacteristics have been determined by [employer] [place], [place]. It hasnot been cleared or approved by the U.S. Food and DrugAdministration. This assay has been validated pursuantto the CLIA regulations and is used for clinicalpurposes.THIS TEST WAS PERFORMED AT:[employer] [place] [id number] AVILA MD,PHD Vitamin D, 25-OH, D3 47 ng/mL [facility] Comment:This test was develo ped and its analytical performancecharacteristics have been determined by [employer] [place], [place]. It hasnot been cleared or approved by the U.S. Food and DrugAdministration. This assay has been validated pursuantto the CLIA regulations and is used for clinicalpurposes. Vitamin D, 25-OH, Total 47 30 - 100 ng/mL [facility] Comment:Vitamin D, 25-Hydrox y reports concentrations of twocommon forms, 25-OHD2 and 25-OHD3. 25-OHD3 indicatesboth endogenous production and supplementation.25-OHD2 is an indicator of exogenous sources such asdiet or supplementation. Therapy is based onmeasurement of Total 25-OHD, with levels <20 ng/mLindicative of Vitamin D deficiency, while levelsbetween 20 ng/mL and 30 ng/mL suggest insufficiency.Optimal levels are > or = 30 ng/mL.For additional information, please refer tohttp://education.[employer]/faq/HVL369(This link is being provided for informational/educational purposes only.) 02/26/2023 2:25 PM EST 02/26/2023 2:25 PM EST us Generic External Data Provider LAB BLOOD ORDERAB LES Final Result [facility] [address] [place] [phone] * (ABNORMAL) Calcium, Ionized (02/26/2023 2:25 PM EST) Calcium, Ionized 3.6(A) 4.7 - 5.5 mg/dL [facility] Comment:THIS TEST WAS PERFOR MED AT:[employer] [place] [phone] RAHMAN MD 02/26/2023 2:25 PM EST 02/26/2023 2:25 PM EST us Generic External Data Provider LAB BLOOD ORDERAB LES Final Result Performing Organization Address [facility] Co de Phone Number [facility] [address] [place] [address] [phone] * (ABNORMAL) PTH, Intact Without Calcium (02/26/2023 2:25 PM EST) Parathyroid Hormone, Intact 135.0(H) 8.7 - 77.1 pg/mL [facility] 02/26/2023 2:25 PM EST 02/26/2023 2:25 PM EST Generic External Data Provider LAB BLOOD ORDERAB LES Final Result Performing Organization Address [facility] Phone Number [facility] [address] [place] [phone] documented in this encounter Visit Diagnoses Not on filedocumented in this encounter Additional Health Concerns Assessment Noted Time PHQ-9 Depression Total Score: 7 11/01/19 23 11:04 AM EDT documented as of this encounter Care Teams Quality Assurance Advisor Relationship Specialty Start Date End Date Senait Pal MD [address] [place] [address] PCP - General Family Medicine 02/22/20 Gustabo Fernandez, HarshaD [address] [place] [address] Pharmacist Internal Medicine 07/16/22 [facility] 09/14/23 documented as of this encounter
--- OUTSIDE RECORDS SUMMARY | 2024-04-14 14:16 | XMS_ITS | Clinical Summary ---
Demographics Address [address] [place] [address] [address] [place] [address] Home Phone Preferred Language es Marital Status Unknown Temple Affiliation Unknown Race White Ethnic Group Unknown Author Organization [facility] Address [address] [place] [address] Phone Care Team Providers Care Staffing Recruiter Name Role Phone Senait Pal MD Primary Care Provider [phone] Allergies Active Allergy Reactions Criticality Noted Date Comments Miguel Inhibitors Other (see comments) 05/26/2020 Cilostazol Other (see comments) 05/26/2020 Medications aspirin (ST CALI) 81 MG EC tablet Take 1 tablet by mouth 1 (one) time each day Active atorvastatin (LIPITOR) 80 MG tablet Take 1 tablet by mouth 1 (one) time each day Active clopidogrel (PLAVIX) 75 MG tablet Take 1 tablet by mouth 1 (one) time each day Active levothyroxine (SYNTHROID, LEVOTHROID) 125 MCG tablet Take 2 tablets by mouth 1 (one) time each day Active metoprolol tartrate (LOPRESSOR) 25 MG tablet Take 1 tablet by mouth 2 (two) times a day Active amLODIPine (NORVASC) 2.5 MG tablet Take 5 mg by mouth 1 Active cilostazol (PLETAL) 100 MG tablet TAKE 1 TABLET BY MOUTH TWICE DAILY AT NOON AND BEDTIME (2 hours after breakfast and dinner) 1 Active FeroSul 325 (65 Fe) MG tablet Take 1 tablet by mouth 1 Active Lantus SoloStar 100 UNIT/ML injection 11 Units 1 Active sertraline (ZOLOFT) 50 MG tablet Take 50 mg by mouth 1 Active Farxiga 5 MG tablet TAKE 1 TABLET BY MOUTH EVERYDAY AT NOON 2 Active gabapentin (NEURONTIN) 100 MG capsule 2 Active NovoLOG FLEXPEN 100 UNIT/ML injection 8 Units 2 Active montelukast (SINGULAIR) 10 MG tablet 2 Active traMADol (ULTRAM) 50 MG tablet TAKE 1 TABLET BY MOUTH EVERY TWELVE HOURS NEEDED FOR SEVERE PAIN 2 Active calcium carbonate (OS-MEGHAN) 600 MG tablet Take 600 mg by mouth in the morning and 600 mg in the evening. Take with meals. Active Ventolin HFA 108 (90 Base) MCG/ACT inhaler INHALE 2 PUFFS BY MOUTH EVERY 4 TO 6 HOURS NEEDED FOR DIFFICULTY BREATHING. NO MORE THAN FOUR TIMES DAILY. 2 Active cetirizine (ZyrTEC) 5 MG tablet Take 5 mg by mouth if needed 2 Active Cholecalciferol (Vitamin D3) 50 MCG (2000 UT) tablet Take 50 mcg by mouth 1 (one) time each day 2 Active Active Problems Problem Noted Date Diagnosed Date Varicose veins of bilateral lower limbs 06/16/19 22 Malignant neoplasm of thyroid gland 06/15/2021 Benign essential hypertension 05/26/2020 Chronic kidney disease stage 3 05/26/2020 Proteinuria 05/26/2020 Renal disorder due to type 2 diabetes mellitus 0 05/26/2020 Numbness of hand 10/07/2018 Polyneuropathy 10/07/2018 Weakness of hand 10/07/2018 Disorder of coronary artery 01/10/2018 Hypertensive urgency 01/10/2018 Hypokalemia 01/10/2018 Hyponatremia 01/10/2018 Hypothyroidism 01/10/2018 Non-traumatic rhabdomyolysis 01/10/2018 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 Prolonged QT interval 01/10/2018 Family History Medical History Relation Comments Diabetes Mother Heart disease Mother Hypertension Mother Kidney disease Mother Relation Status Comments Father Mother Social History Tobacco Use Types Packs/Day Years Used Date Smoking Tobacco: Former Cigarettes Q uit: 03/18/2015 Smokeless Tobacco: Never Tobacco Cessation:Counseling Given: Not Answered Comments:Smoking History Info:Every day Alcohol Use Standard Drinks/Week Comments No 0 (1 standard drink = 0.6 oz pur e alcohol) Comments Unknown Sex and Gender Information Value Date Recorded Sex Assigned at Not on file Legal Sex Female 5:04 PM EST Gender Identity Not on file Sexual Orientation Not on file Last Filed Vital Signs Vital Sign Reading Time Taken Comments Blood Pressure 140/60 10/12/2021 12:47 PM EDT Pulse 71 10/12/2021 12:47 PM EDT Temperature - - Respiratory Rate - - Oxygen Saturation 97% 10/12/2021 12:47 PM EDT Inhaled Oxygen Concentration - - Weight 65.5 kg (144 lb 6.4 oz) 10/12/2021 12:47 PM EDT Height - - Body Mass Index - - Plan of Treatment Health Maintenance Due Date Last Done Comments Breast Cancer Screening 1955 Pneumococcal Vaccine: 65+ Ye ars (1 of 2 - PCV) 1960 Colorectal Cancer Screening: Annual FOBT 08/14/2003 Colorectal Cancer Screening: Colonoscopy 08/14/2003 Colorectal Cancer Screening: Sigmoidoscopy 08/14/2003 Diabetes: Hemoglobin A1C 04/17/2020 Diabetes: Ophthalmology Exam 04/17/2020 Diabetes: Pedal Pulse Checked 04/17/2020 Diabetes: Sensory Foot Exam 04/17/2020 Diabetes: Visual Foot Exam 04/17/2020 Influenza Vaccine (#1) 2023 Hepatitis B Vaccine Aged Out No longe r eligible based on patient's age to complete this topic Insurance ([id number]) MARYELLEN SPENCER [id number] [facility] ([id number]) MARYELLEN SPENCER [id number] Care Teams Staffing Recruiter Relationship Specialty Start Date End Date Senait Pal MD PCP - General 03/28/20
--- OUTSIDE RECORDS SUMMARY | 2024-04-14 14:16 | XMS_ITS | Encounter Summary ---
Demographics Address [address] [facility] [address] [place] [address] Home Phone Preferred Language es Marital Status Unknown Mormonism Affiliation Unknown Race White Ethnic Group Unknown Author Organization [facility] Address [address] [place] [address] Phone Care Team Providers Care Safemaker Name Role Phone Senait Pal MD Primary Care Provider [phone] Encounter Details Date Type Department Care Team (Late st Contact Info) Description 06/08/2020 Orders Only [facility] [address] [place] [address] ProviderJesus MD [facility] [place] [address] Social History Tobacco Use Types Packs/Day Years Used Date Smoking Tobacco: Former Cigarettes Q uit: 03/18/2015 Comments:Smoking History Inf o:Every day Alcohol Use Standard Drinks/Week Comments No 0 (1 standard drink = 0.6 oz pur e alcohol) Comments Unknown Sex and Gender Information Value Date Recorded Sex Assigned at Not on file Legal Sex Female 5:04 PM EST Gender Identity Not on file Sexual Orientation Not on file documented as of this encounter Plan of Treatment Not on file documented as of this encounter Procedures Procedure Name Priority Date/Time Associated Diagnosis Comments EXT RESULT ENTRY Routine 06/08/2020 documented in this encounter Results * EXT RESULT ENTRY (06/08/2020) Historical Provider LAB BLOOD ORDERABLES Christa l Result documented in this encounter Visit Diagnoses Not on filedocumented in this encounter Care Teams Safemaker Relationship Specialty Start Date End Date Senait Pal MD PCP - General 03/28/20 documented as of this encounter
--- OUTSIDE RECORDS SUMMARY | 2024-04-14 14:16 | XMS_ITS | Encounter Summary ---
Author Organization [employer] Address [address] [facility] [address]t [place] [address] Care Team Providers Care Straw Hat Machine Operator Name Role Phone Senait Pal MD Primary Care Provider [phone] Gustabo Fernandez PharmD Unavailable [phone] Reason for Visit * Reason Comments Med Refill Encounter Details Date Type Department Care Team ([facility] st Contact Info) Description 03/23/2024 Refill [facility] MEDICINE [address] [place], [place] [phone] Senait Pal MD [address] [place], [place] [phone] Social History Tobacco Use Types Packs/Day Years [...] encounter Miscellaneous Notes * Telephone Encounter - Coreen Mondragon MA - 03/24/2024 1:43 PM EST ----- Message from Senait Pal MD sent at 03/24/2024 9:39 AM EST ----- Regarding: appt and note request Please request a note from neurologist and schedule a follow up appointment. Thank you documented in this encounter Plan of Treatment [...] documented as of this encounter Care Teams Straw Hat Machine Operator Relationship Specialty Start Date End Date Senait Pal MD [address] [place] [address] PCP - General Family Medicine 02/22/20 Gustabo Fernandez, HarshaD [address] [place] [phone] Pharmacist Internal Medicine 07/16/22 [facility] 09/14/23 documented as of this encounter
--- OUTSIDE RECORDS SUMMARY | 2024-04-14 14:16 | XMS_ITS | Encounter Summary ---
Author Organization [employer] Address [address] [facility] [address]t [place] [address] Care Team Providers Care Physician General Internal Medicine Name Role Phone Senait Pal MD Primary Care Provider [phone] Gustabo Fernandez PharmD Unavailable [phone] Reason for Visit * Reason Onset Date Comments Hospital Follow-up 09/24/2023 Encounter Details Date Type Department Care Team ([facility] st Contact Info) Description 09/24/2023 Telephone [facility] MEDICINE [address] [place], [place] [phone] Senait Pal MD [address] [place], [place] [phone] Hospital Follow-up Social History Tobacco Use Types Packs/Day Years [...] encounter Miscellaneous Notes * Telephone Encounter - Krishan Montilla RN - 09/24/2023 3:35 PM EDT Pt. Finished her HDF apt. On 09/24/2023. * Telephone Encounter - Andressa Sarmiento - 09/24/2023 9:13 AM EDT Tc from pt requesting to r/s appt for HDF on 09/24/23 due to transportation issues. documented in this encounter Plan of Treatment [...] documented as of this encounter Care Teams Physician General Internal Medicine Relationship Specialty Start Date End Date Senait Pal MD [address] [place] [address] PCP - General Family Medicine 02/22/20 Gustabo Fernandez, HarshaD [address] [place] [address] Pharmacist Internal Medicine 07/16/22 [facility] 09/14/23 documented as of this encounter
--- OUTSIDE RECORDS SUMMARY | 2024-04-14 14:16 | XMS_ITS | Encounter Summary ---
Author Organization [employer] Address [address] [facility] [address]t [place] [address] Care Team Providers Care Job Development Specialist Name Role Phone Senait Pal MD Primary Care Provider [phone] Gustabo Fernandez PharmD Unavailable [phone] Reason for Visit * Reason Onset Date Comments Referral 04/05/2022 Encounter Details Date Type Department Care Team (Late st Contact Info) Description 04/05/2022 Telephone [facility] MEDICINE [address] [place], [place] [phone] Senait Pal MD [address] [place], [place] [phone] Referral Social History Tobacco Use Types Packs/Day Years [...] AM EST documented as of this encounter Miscellaneous Notes * Telephone Encounter - Beatriz Guerrero RN - 04/06/2022 3:08 PM EST T/C placed to pt x1 PM re below. No answer, left V/M. Will retask to green nurses for second attempt * Telephone Encounter - Hugh Koch - 04/05/2022 3:35 PM EST Tc from pt requesting referral to thyroid cancer specialist. Pt is also requesting a referral for aallergist specialist Please contact pt at [phone] documented in this encounter Plan of Treatment Not on file documented as of this encounter Visit Diagnoses Not on filedocumented in this encounter Care Teams Job Development Specialist Relationship Specialty Start Date End Date Senait Pal MD [address] [place] [address] PCP - General Family Medicine 02/22/20 Gustabo Fernandez, Agnes [address] [place] [address] Pharmacist Internal Medicine 07/16/22 [facility] 09/14/23 documented as of this encounter
--- OUTSIDE RECORDS SUMMARY | 2024-04-14 14:16 | XMS_ITS | Encounter Summary ---
Author Organization [employer] Address [address] [facility] [address] [place] [address] Care Team Providers Care Hand Frame Surgical Elastic Knitter Name Role Phone Senait Pal MD Primary Care Provider [phone] Gustabo Fernandez PharmD Unavailable [phone] Reason for Visit * Reason Onset Date Comments Durable Medical Equipment 10/01/2023 Encounter Details Date Type Department Care Team (Late st Contact Info) Description 10/01/2023 Telephone [facility] MEDICINE [address] [place], [place] [phone] Senait Pal MD [address] [place], [place] [phone] Durable Medical Equipment Social History Tobacco Use [...] encounter Miscellaneous Notes * Telephone Encounter - Lg Sauceda - 10/01/2023 12:24 PM EDT Tc from Rosangela at [facility] calling to request DME raised toilet seat transfer tub bench Please fax to [phone] documented in this encounter Plan of Treatment [...] documented as of this encounter Care Teams Hand Frame Surgical Elastic Knitter Relationship Specialty Start Date End Date Senait Pal MD [address] [place] [address] PCP - General Family Medicine 02/22/20 Gustabo Fernandez PharmD [address] [place] [address] Pharmacist Internal Medicine 07/16/22 [facility] 09/14/23 documented as of this encounter
== END 2024-04-14 13:41 | disposition home or self-care (01) ==
PROVIDERS: PCP Family Medicine; Visit Provider Internal Medicine Hypertension Specialist
DX: N18.6 End stage renal disease (principal); Z99.2 Dependence on renal dialysis
CPT/HCPCS: 99024

== ENCOUNTER → 2024-04-14 13:17 | Outpatient (BNVA) | payer OTHER, SELFPAY | PROVIDERS: PCP Family Medicine; Visit Provider Internal Medicine Hypertension Specialist | DX: N18.6 End stage renal disease (principal); Z99.2 Dependence on renal dialysis | CPT/HCPCS: 99212 ==

== ENCOUNTER 2024-04-22 21:49 | Emergency (ER) | payer OTHER, SELFPAY ==
--- NOTE | 2024-04-22 | ECG_ITS ---
Test Reason : DIZZINESS Blood Pressure : */* mmHG Vent. Rate : 69 BPM Atrial Rate : 69 BPM P-R Int : 166 ms QRS Dur : 84 ms QT Int : 532 ms P-R-T Axes : 42 29 114 degrees QTcB Int : 570 ms Normal sinus rhythm Nonspecific T wave abnormality Prolonged QT Abnormal ECG When compared with ECG of 11-Sep-2023 10:54, Premature atrial complexes are no longer Present QRS voltage has decreased T wave inversion no longer evident in Lateral leads QT has lengthened Referred By: Generic ED Physician Electronically Signed By: Paramjit Guido
[2024-04-22 21:54] VITALS: BP 132/70; PULSE 80; O2SAT 97
[2024-04-22 21:58] VITALS: BMI 21.6
[2024-04-22 22:05] VITALS: BP 91/46; PULSE 69; RESP 14; TEMP 36.4; O2SAT 100
[2024-04-22 22:25] LABS: MANUAL DIFF FLAG NO
[2024-04-22 22:26] LABS: Basophils Absolute Auto 0.1 X10*3/uL (0.0-0.2); Basophils Percent Auto 0.7 % (0-2); Eosinophils Absolute Auto 0.1 X10*3/uL (0.0-0.4); Imm Gran Abs Auto 0.02 X10*3/uL (0.00-0.03); Imm Gran Pct Auto 0.3 % (0.0-0.4); Lymphocytes Absolute Auto 1.5 X10*3/uL (1.2-4.9); Lymphocytes Percent Auto 20.7 % (20-40); Mean Corpuscular HGB Conc 31.4 g/dl (31.0-35.0); Mean Corpuscular Hemoglobin 29.3 pg (27.0-33.0); Mean Corpuscular Volume 93.4 fL (80.0-98.0); Mean Platelet Volume 9.3 fL (9.4-12.3); Monocytes Absolute Auto 0.6 X10*3/uL (0.1-1.2); Monocytes Percent Auto 7.9 % (2-11); Neutrophils Absolute Auto 4.9 x10*3/uL (2.0-8.3); Neutrophils Percent Auto 69.4 % (45-73); Platelet Count 182 X10*3/uL (160-400); Red Blood Count 1.81 X10*6/uL (4.20-5.50); Red Cell Distribution Width 14.4 % (11.0-16.0); White Blood Count 7.1 X10*3/uL (4.8-10.8)
[2024-04-22 22:49] LABS: Troponin-I High Sensitivity 12.7 ng/L (<3.5-17.0)
--- OUTSIDE RECORDS SUMMARY | 2024-04-22 22:51 | XMS_ITS | Encounter Summary ---
Author Organization [employer] Address [address] [facility] [address] [place] [address] Care Team Providers Care Hvac Sales Engineer Name Role Phone Senait Pal MD Primary Care Provider [phone] Gustabo Fernandez PharmD Unavailable [phone] Encounter Details Date Type Department Care Team ([facility] st Contact Info) Description 11/12/2022 Orders Only [facility] MEDICINE [address] [place], [place] [phone] Senait Pal MD [address] [place], [place] [phone] Social History Tobacco Use Types Packs/Day Years [...] documented as of this encounter Care Teams Hvac Sales Engineer Relationship Specialty Start Date End Date Senait Pal MD [address] [place] [address] PCP - General Family Medicine 02/22/20 Gustabo Fernandez, HarshaD [address] [place] [address] Pharmacist Internal Medicine 07/16/22 [facility] 09/14/23 documented as of this encounter
--- OUTSIDE RECORDS SUMMARY | 2024-04-22 22:51 | XMS_ITS | Encounter Summary ---
Author Organization [employer] Address [address] [address] [place] [address] Care Team Providers Care Jump Roll Operator Name Role Phone Senait Pal MD Primary Care Provider [phone] Gustabo Fernandez PharmD Unavailable [phone] Reason for Visit * Reason Comments Med Refill Encounter Details Date Type Department Care Team ([facility] st Contact Info) Description 01/31/2023 Refill [facility] MEDICINE [address] [place], [place] [phone] Senait Pal MD [address] [place], [place] [phone] Moderate episode of recurrent major depressive disorder [...] documented as of this encounter Care Teams Jump Roll Operator Relationship Specialty Start Date End Date Senait Pal MD [address] [place] [address] PCP - General Family Medicine 02/22/20 Gustabo Fernandez, PharmD [address] [place] [address] Pharmacist Internal Medicine 07/16/22 [facility] 09/14/23 documented as of this encounter
--- OUTSIDE RECORDS SUMMARY | 2024-04-22 22:51 | XMS_ITS | Encounter Summary ---
Author Organization [employer] Address [address] [facility] 7t [place] [address] Care Team Providers Care Manager General Name Role Phone Senait Pal MD Primary Care Provider [phone] Gustabo Fernandez PharmD Unavailable [phone] Encounter Details Date Type Department Care Team (Late st Contact Info) Description 08/09/2022 Abstract [facility] [address] [place] [address] Senait Pal MD [address] [place] [address] Social History Tobacco Use Types Packs/Day Years [...] on filedocumented in this encounter Care Teams Manager General Relationship Specialty Start Date End Date Senait Pal MD [address] [place] [address] PCP - General Family Medicine 02/22/20 Gustabo Fernandez, HarshaD [address] [place] [address] Pharmacist Internal Medicine 07/16/22 [facility] 09/14/23 documented as of this encounter
--- OUTSIDE RECORDS SUMMARY | 2024-04-22 22:51 | XMS_ITS | Data Portability ---
Author Organization [facility] [employer] [facility] [employer] Address [address] [place] [address] Care Team Providers Care Loss Prevention Lead Name Role Phone HIM CCA OTHER Assessment [...] PCP. The patient agreed with this plan. [email or web address] Not available 11/01/2021 19:13:25 08/29/2022 08/29/2022 As noted, we were called to see this patient regarding concerns of cellulitis of the left lower leg Evaluation in the field was performed by my municipal clerk colleague, as noted above, I provided real-time [...] Lab BMP, serum or plasma 2023 024 [facility], [address] [place] [address], [phone], 4 20:52:48 hemoglobin + hematocrit, blood 2023 024 [facility], [address] [place] [address], [phone], 4 20:51:45 Referral None recorded. Procedures None recorded. Surgeries None recorded. Imaging None recorded. Medication Orders doxycycline hyclate 100 mg capsule 2022 023 [email or web address] Not available 15:43:21 doxycycline hyclate 100 mg capsule 2022 023 [facility], [address] [place] [address], [id number], 3 15:51:20 sodium chloride 0.9 % intravenous solution 2023 024 [facility], [address] [place] [address], [id number], 4 20:51:12 Patient TargetsNo targets recorded. Patient InstructionsNo instructions recorded. Reason for Referral None Reported. Results Created Date Observation Date Name Description Value Unit Range Abnormal Flag Note LastModifiedBy Organization Detail LastModifiedTime 09/07/19 24 09/07/2023 BMP, serum or plasm a BUN 124 Not Available [facility] - [facility] [address], [address], 09/07/2023 20:50:35 09/07/19 24 09/07/2023 BMP, serum or plasm a Ca 0.52 Not Available [facility] - [facility] [address], [address], 09/07/2023 20:50:35 09/07/19 24 09/07/2023 BMP, serum or plasm a CI- 103 Not Available Main - [facility] [address], [address], 09/07/2023 20:50:35 09/07/19 24 09/07/2023 BMP, serum or plasm a CRE 8.1 Not Available Main - [facility] [address], [address], 09/07/2023 20:50:35 09/07/19 24 09/07/2023 BMP, serum or plasm a GLU 267 Not Available [facility] - [facility] [address], [address], 09/07/2023 20:50:35 09/07/19 24 09/07/2023 BMP, serum or plasm a K+ 3.0 Not Available [facility] - [facility] [address], [address], 09/07/2023 20:50:35 09/07/19 24 09/07/2023 BMP, serum or plasm a Na+ 140 Not Available [facility] - [facility] [address], [address], 09/07/2023 20:50:35 09/07/19 24 09/07/2023 BMP, serum or plasm a tCO2 18 Not Available [facility] - [facility] [address], [address], 09/07/2023 20:50:35 09/07/19 24 09/07/2023 hemog lobin + hemat ocrit , blood Hemoglobin 9.5 Not Available Main - [facility] [address] [place] [address], [phone], 09/07/2023 20:51:28 09/07/19 24 09/07/2023 hemog lobin + hemat ocrit , blood Hematocrit 28 Not Available Main - [facility], [address], 09/07/2023 20:51:28 Result Notes None recorded. 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3 Exam : Mildly decreased continuity coordinator on the left hand but no other [...] ml-Unable to tolerate PO Kcl-expect called at [facility] Primary care, consider__ _ Dispositio n: ED Health Concerns Section Related Observation LastModified by Organization Detai ls LastModified Time None Recorded Concern Status LastModified by Organization Details LastModified Time None Recorded Advance Directives Directive None Recorded Payers Encounter Date Sequence Insurance Name Policy Number Policy Camacho Covered Member ID Camacho Member ID Guarantor Name 11/01/2021 1 [facility] [employer] - DOS PRIOR TO 2022 - DUAL ELIGIBLE (MEDICARE REPLACEMENT/AD VANTAGE - HMO) Sarah García [id number] Sarah García 08/29/2022 1 [facility] [employer] - DOS ON OR AFTER 2022 - DUAL ELIGIBLE - JAIL OPTIONS AND ONE CARE (MEDICARE REPLACEMENT/AD VANTAGE - HMO) Sarah García [id number] Sarah García 09/07/2023 1 [facility] [employer] - DOS ON OR AFTER 2022 - DUAL ELIGIBLE - JAIL OPTIONS AND ONE CARE (MEDICARE REPLACEMENT/AD VANTAGE - HMO) Sarah García [id number] Sarah García Notes Date Note Type Note Provider Name and Address Organization Details Recorded Time 11/01/2021 text/html HPI: Alergies-sandra inhibtors: cough and cilostazol: cough. Member reported fever and chills with weakness x 3 days, stated tested negative for Covid with home test. Questions UTI, but asymptomatic other than the above. Ukrainian speaker. Member is 66 yo, has thyroid cancer, DM, HTN, Ischemic cardiac disease, DM and Asthma. Denied having respiratory or GI/ sx. ................... ................... ................... ................... ................... ................... ................... ........ CRC Nursing Assessment: Comments: CRC RN DID NOT NEED FURTHER INFO TO PROCESS VISIT ................... ................... ................... ................... ................... ................... ................... ........ Tunnel Inspector Note: Pt states she feels tired and sick with the chills but only at night. Pt admits Tylenol helps with chills. Pt denies chest pain/coughing/sneez ing/SOB and states she currently feels normal. UA negative for UTI, blood glucose 95. Pt states she has been drinking water without issues. Skin turgor good. Pt well appearing. [employer] contacted. Red flags discussed ................... ................... ................... ................... ................... ................... ................... ........ Disposition: Fulfilled Kermit Tomas MD [address] [facility],[address], [place], [address], [facility] 11/01/2021 19:13:41 08/29/2022 text/html HPI: CCA calling [...] ................... ................... ................... ................... ................... ................... ........ Tunnel Inspector Note From Victor Manuel Gilmore: Pt CO [...] ................... ........ Disposition: Fulfilled Noe Cortes MD [address] [place] [address],[address], [place], [address], [facility] 08/29/2022 16:20:09 09/07/2023 text/html CRC Nurse Triage Notes (George Gil): Chief Complaints: Syncope/Dizziness/L ightheadedness, Weakness/Lethargy PMH: Amputation, Diabetes, COPD/Asthma, Hypertension, Heart Disease Allergies: Unknown Comments: Automatic Lathe Setter verified the member's name//address and phone number. [...] emergency treatment if needed -Socorro Gil RN Tunnel Inspector POC Test Results from Tamra Smith - [facility] iSTAT Chem8+ (20:37:25) Na: 140 mEq/L K: 3.0 mEq/L Cl: 103 mEq/L iCa: 0.52 mmol/L TCO2: 18 mmol/L Glu: 267 mg/dL BUN: 124 mg/dL Crea: 8.1 mg/dL Hct: 28 % Hb: 9.5 g/dL A ................... ................... ................... ................... ................... ................... ................... ........ Tunnel Inspector Note From LuisTamra: [facility] Tunnel Inspector Kelsie Luis SC6 [facility] 68 y[facility] C/O dizziness. Upon [...] and SOB on exertion, and had weak continuity coordinator strength in her left hand. Blood sugar 324. Pt used 13U tresiba nightly, and had not started any new meds recently. She was instructed by her Access Manager in the past week to DC her lasix, and stated she performed lab work in the past week through her Nephrology office. [facility] consulted; #20 IV placed in her left AC, BMP acquired, and she was given 500 mL NS. BUN and creatinine were critically high; [facility] was consulted again, and pt was informed that she must be transported to the ED immediately. Pt agreed and 911 was called. [facility] arrived and transported her to [place] [facility]. ................... ................... ................... ................... ................... ................... ................... ........ Disposition: Fulfilled CEDRICK BELLO MD [address] [place] [address],[address], [place], [address], [employer] [facility] 09/07/2023 21:09:47 OBGyn Episode No OBEpisode recorded.
--- OUTSIDE RECORDS SUMMARY | 2024-04-22 22:51 | XMS_ITS | Encounter Summary ---
Author Organization [employer] Address [address] [place] [address] Care Team Providers Care Director General Name Role Phone Senait Pal MD Primary Care Provider [phone] Gustabo Fernandez PharmD Unavailable [phone] Reason for Visit * Reason Comments Med Refill Encounter Details Date Type Department Care Team (Late st Contact Info) Description 11/12/2022 Refill [facility] [address] [place], [place] [phone] Senait Pal MD [address] [place] [address] Social History Tobacco Use Types Packs/Day Years [...] documented as of this encounter Care Teams Director General Relationship Specialty Start Date End Date Senait Pal MD [address] [place] [address] PCP - General Family Medicine 02/22/20 Gustabo Fernandez, PharmD [address] [place] [address] Pharmacist Internal Medicine 07/16/22 [facility] 09/14/23 documented as of this encounter
--- OUTSIDE RECORDS SUMMARY | 2024-04-22 22:51 | XMS_ITS | Clinical Summary ---
Author Organization [employer] Address [address] [place] [address] Care Team Providers Care Graphic Art Designer Name Role Phone Senait Car MD Primary Care Provider [phone] Gustabo Fernandez PharmD Unavailable [phone] Allergies Active Allergy Reactions Criticality Noted Date Comments Miguel Inhibitors Cough Low Cilostazol Cough Low 06/16/2014 Medications Acetaminophen Extra Strength 500 MG tablet TAKE 2 TABLETS BY MOUTH EVERY 6 HOURS NEEDED Active Ventolin HFA 108 (90 Base) MCG/ACT inhaler INHALE 2 PUFFS BY MOUTH EVERY 4 TO 6 HOURS NEEDED FOR DIFFICULTY BREATHING. NO MORE THAN FOUR TIMES DAILY. 022 Active Sissy-Dryl 25 MG tablet TAKE 1/2 TABLET BY MOUTH AT BEDTIME NEEDED (for itching) Active Tresiba FlexTouch 100 UNIT/ML injection INJECT 13 UNITS SUBCUTANEOUSLY ONCE DAILY IN THE MORNING 15 mL 11 023 Active nicotine polacrilex (Commit) 2 MG lozengeIndicat ions:Tobacco dependence DISSOLVE 1 LOZENGE IN MOUTH EVERY 4-8 HOURS NEEDED 72 lozenge 023 Active glucose blood (FREESTYLE LITE) test strip TEST BLOOD SUGAR THREE TIMES DAILY 100 strip 023 Active Lancets (Unilet Micro-Thin 33G) misc TEST BLOOD SUGAR THREE TIMES DAILY 100 each 023 Active BD Pen Needle Isabella U/F 32G X 4 MM misc USE FOUR TIMES DAILY WITH LANTUS AND HUMALOG 100 each 024 Active Aspirin Adult Low Strength 81 MG [...] times daily. 60 tablet Active Continuous Glucose Custom Bike Builder (FreeStyle Nata 2 [place]) deviceIndicati ons:Type 2 diabetes mellitus with diabetic peripheral angiopathy without gangrene, with long-term current use of insulin ([facility]),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 chronic dialysis, with long-term current use of insulin ([facility]) Scan sensor every 8 hours 1 each Active Continuous Glucose Sensor (FreeStyle Nata 2 Sensor) miscIndication s:Type 2 diabetes mellitus with diabetic peripheral angiopathy without gangrene, with long-term current use of insulin ([facility]),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 chronic dialysis, with long-term current use of insulin ([facility]) Apply 1 sensor every 14 days 2 each Active glucose blood (FreeStyle Precision Andrea Test) test strip Use to test blood sugar 3 times daily 100 each 024 2024 Active traMADol 25 MG tabletIndicati ons:Pain in both lower extremities Take 25 mg by mouth if needed each day for severe pain. 30 tablet Active cholecalcifero l VITAMIN D (Vitamin D-3) 50 MCG (2000 UT) tablet TAKE 1 TABLET BY MOUTH EVERYDAY [...] AFTER USING. DO NOT SWALLOW 10.2 g Active carvedilol (Coreg) 12.5 MG tablet TAKE 1 TABLET BY MOUTH TWICE DAILY AT NOON AND IN THE EVENING 180 tablet Active mirtazapine (Remeron) 7.5 MG tablet TAKE 1 TABLET BY MOUTH AT BEDTIME 30 tablet 1 Active Tradjenta 5 MG tabletIndicati ons:Type 2 diabetes mellitus with stage 4 chronic kidney disease, with long-term current use of insulin ([facility]) TAKE 1 TABLET BY MOUTH EVERYDAY AT NOON 30 tablet 1 Active TRUEplus Lancets 33G miscIndication s:Type 2 diabetes mellitus with stage 4 chronic kidney disease, with long-term current use of insulin ([facility]) TEST BLOOD SUGAR THREE TIMES DAILY 100 each Active Incruse Ellipta 62.5 MCG/ACT aerosol powder INHALE 1 PUFF BY MOUTH EVERY DAY AT THE SAME TIME IN THE MORNING 30 each Active Umeclidinium [place] (Incruse Ellipta) 62.5 MCG/ACT aerosol powder Inhale 1 puff in the morning. 30 each 024 2024 Discontinued mirtazapine (Remeron) 7.5 MG tablet TAKE 1 TABLET BY MOUTH AT BEDTIME 30 tablet 2024 Discontinued Tradjenta 5 MG tabletIndicati ons:Type 2 diabetes mellitus with stage 4 chronic kidney disease, with long-term current use of insulin ([facility]) TAKE 1 TABLET BY MOUTH EVERYDAY AT NOON 30 tablet 024 2024 Discontinued Active Problems Problem Noted Date Diagnosed Date GERD (gastroesophageal reflux disease) 4 Assessment & Plan (10/23/2023 7:12 PM EDT): [...] - Continue following with Wound Care and elementary substitute teacher Abnormal echocardiogram 09/26/2023 Hospital discharge follow-up 09/26/2023 Hypercholesteremia 09/26/2023 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 09/26/2023 Assessment & Plan (10/23/2023 7:03 PM EDT): - hypocalcemia - continue high-dose calcium replacement prescribed by fixed wing aircraft crew chief Metabolic acidosis 09/26/2023 Secondary renal hyperparathyroidism 09/26/2023 [...] vascular specialist and wound care clinic at [facility] - MRI on 09/26/23 showed osteomyelitis - [...] chronic HF in July 2023, hospitalized in [facility] - transthoracic echocardiogram on 07/24/23: Mildly increased [...] monitor fluid balance - following with both fixed wing aircraft crew chief and wound care specialist Weight gain 07/23/2023 Assessment & Plan (07/23/2023 [...] states that she is scheduled for transfusion. Instrument Adjuster is also planning to start EPO. Assessment & Plan (04/29/2023 9:41 AM EST): - chronic anemia due to CKD - plan to start erythropoietin with fixed wing aircraft crew chief or heamtologist Prolonged Q-T interval on ECG 02/26/2023 Assessment & Plan (10/23/2023 11:54 AM EDT): - QTc > 500 ms - wound care specialist recommends to discontinue SSRI, and sertraline was discontinued - optimize electrolyte replacement - now on peritoneal dialysis Assessment & Plan (08/25/2023 6:13 PM EDT): - QTc > 500 ms - wound care specialist recommends to discontinue SSRI, and sertraline was discontinued - pharmacist will review her medications - optimize electrolyte replacement Assessment & Plan (07/26/2023 6:11 AM EDT): - most recent QTc 571 ms - wound care specialist recommends to discontinue SSRI - pharmacist will review her medications - optimize electrolyte replacement Assessment & Plan (02/26/2023 12:16 PM EST): - most recent QTc 571 ms - wound care specialist recommends to discontinue SSRI - pharmacist will review her medications - optimize electrolyte replacement Type 2 diabetes mellitus wit h chronic kidney disease on chronic dialysis, with long-term current use of insulin 07/03/2022 Assessment & Plan (10/23/2023 12:29 PM EDT): A1C 6.7% on 10/22/23 - last seen by waterworks pump station operator, Dr. Herndon in Apr 2022. - Continue [...] 6.8% on 07/23/23 - last seen by waterworks pump station operator, Dr. Herndon in Apr 2022. - Continue [...] 6.9% on 10/31/22 - last seen by waterworks pump station operator, Dr. Herndon in Apr 2022. - Continue [...] on 03/29/22 - seen by Dr. Herndon, [facility] for mostly hypothyroidism in May 2022 [...] 8.8% on 03/29/22 - last seen by [facility] waterworks pump station operator on 02/20/21. Refer to a new waterworks pump station operator for transportation convenience. - Continue basal insulin: [...] find alternative medication and consult with her fixed wing aircraft crew chief Assessment & Plan (07/26/2023 6:10 AM EDT): [...] find alternative medication and consult with her fixed wing aircraft crew chief Assessment & Plan (04/29/2023 9:24 AM EST): [...] & Plan (10/22/2023 9:50 AM EDT): - Cardiology, [facility], last seen on 08/05/23 -Nuclear stress test [...] & Plan (08/25/2023 6:13 PM EDT): [facility] -Nuclear stress [...] & Plan (07/23/2023 11:54 AM EDT): [facility]. EKG showed [...] & Plan (04/29/2023 9:35 AM EST): - Cardiology, [facility], last seen on 01/15/23. EKG showed further [...] Plan (02/25/2023 4:55 AM EST): - Cardiology, [facility], last seen on 01/15/23. EKG showed further increase in QT-c prolongation, likely due to electrolyte abnormality and medications. Sent to ED. -Nuclear stress test done in 2016 showed likely normal myocardial perfusion imaging. Last echo 2020 showed EF 60-65% with mild diastolic dysfunction, mild MR, mild pulmonary HTN Assessment & Plan (11/12/2022 10:57 AM EDT): - Previously seen by [facility] - Currently following with [facility] cardiology, last seen on 06/20/22. Found to have QT prolongation, likely due to electrolyte abnormality and medications Assessment & Plan (06/11/2022 8:54 AM EDT): - Previously seen by [facility] - Currently following with [facility] cardiology Peripheral venous insufficiency 02/28/2015 Postoperative hypothyroidism 02/28/2015 Assessment & Plan (10/23/2023 7:04 PM EDT): -h/o papillary thyroid cancer, s/p thyroidectomy -Goal TSH 0.5-1 -Most recent thyroid function test: 01/21/23 TSH 1.75 -Current replacement: levothyroxine 175 mcg daily -Continue current replacement, with caution since pt is losing weight -Previously seeing [facility] endocrinology; referred to a new waterworks pump station operator for both DM and hypothyroidism / Hx thyroid cancer; pt has not received an appt yet. -Seen by [facility] endocrinology Dr. Herndon in Apr 2022. Assessment & Plan (08/25/2023 5:49 PM EDT): -h/o papillary thyroid cancer, s/p thyroidectomy -Goal TSH 0.5-1 -Most recent thyroid function test: 01/21/23 TSH 1.75 -Current replacement: levothyroxine 175 mcg daily -Continue current replacement, with caution since pt is losing weight -Previously seeing [facility] endocrinology; referred to a new waterworks pump station operator for both DM and hypothyroidism / Hx thyroid cancer; pt has not received an appt yet. -Seen by [facility] endocrinology Dr. Herndon in Apr 2022. Assessment & Plan (07/23/2023 12:30 PM EDT): -h/o papillary thyroid cancer, s/p thyroidectomy -Goal TSH 0.5-1 -Most recent thyroid function test: 01/21/23 TSH 1.75 -Current replacement: levothyroxine 175 mcg daily -Continue current replacement, with caution since pt is losing weight -Previously seeing [facility] endocrinology; referred to a new waterworks pump station operator for both DM and hypothyroidism / Hx thyroid cancer; pt has not received an appt yet. -Seen by [facility] endocrinology Dr. Herndon in Apr 2022. Assessment & Plan (04/29/2023 9:39 AM EST): -h/o papillary thyroid cancer, s/p thyroidectomy -Goal TSH 0.5-1 -Most recent thyroid function test: 01/21/23 TSH 1.75 -Current replacement: levothyroxine 175 mcg daily -Continue current replacement, with caution since pt is losing weight -Previously seeing [facility] endocrinology; referred to a new waterworks pump station operator for both DM and hypothyroidism / Hx thyroid cancer; pt has not received an appt yet. -Seen by [facility] endocrinology Dr. Herndon in Apr 2022. Assessment & Plan (02/25/2023 5:02 AM EST): -h/o papillary thyroid cancer, s/p thyroidectomy -Goal TSH 0.5-1 -Most recent thyroid function test: 01/21/23 TSH 1.75 -Current replacement: levothyroxine 175 mcg daily -Continue current replacement, with caution since pt is losing weight -Previously seeing [facility] endocrinology; referred to a new waterworks pump station operator for both DM and hypothyroidism / Hx thyroid cancer; pt has not received an appt yet. -Seen by [facility] endocrinology Dr. Herndon in Apr 2022. Assessment & Plan (11/12/2022 11:16 AM EDT): -h/o papillary thyroid cancer, s/p thyroidectomy -Goal TSH 0.5-1 -Most recent thyroid function test: In 2021, supratherapeutic. Repeating today -Current replacement: levothyroxine 175 mcg daily, decreased from 213 mcg daily after the most recent lab -Continue current replacement, with caution since pt is losing weight -Previously seeing [facility] endocrinology; referred to a new waterworks pump station operator for both DM and hypothyroidism / Hx thyroid cancer; pt has not received an appt yet. -Seen by [facility] endocrinology Dr. Herndon recently. Assessment & Plan (06/11/2022 8:55 AM EDT): -h/o papillary thyroid cancer, s/p thyroidectomy -Goal TSH 0.5-1 -Most recent thyroid function test: 07/28/21 TSH 0.05 -Current replacement: levothyroxine 175 mcg daily, decreased from 213 mcg daily after the most recent lab -Continue current replacement, with caution since pt is losing weight -Previously seeing [facility] endocrinology; referred to a new waterworks pump station operator for both DM and hypothyroidism / Hx thyroid cancer; pt has not received an appt yet. -Seen by [facility] endocrinology Dr. Herndon recently. Assessment & Plan (04/01/2022 12:19 PM EST): -h/o papillary thyroid cancer, s/p thyroidectomy -Goal TSH 0.5-1 -Most recent thyroid function test: 07/28/21 TSH 0.05 -Current replacement: levothyroxine 175 mcg daily, decreased from 213 mcg daily after the most recent lab -Continue current replacement, with caution since pt is losing weight -Previously seeing [facility] endocrinology; referred to a new waterworks pump station operator for both DM and hypothyroidism / Hx thyroid cancer; pt has not received an appt yet. -Refer to [facility] endocrinology ESRD on dialysis 09/15/2013 Assessment & Plan (10/23/2023 11:55 AM EDT): - Instrument Adjuster: Dr. Bowden, last seen on 10/13/24 - [...] NOT ON CHRONIC DIALYSIS (CMS/HCC) WRITTEN ON 04/01/2022 12:14 PM BY SENAIT CAR MD - CKDIII/IV - most recent lab: Dec 2021 SCr 2.0 ; BUN 20; eGFR 24 - pt has an upcoming appt with fixed wing aircraft crew chief - avoid nephrotoxic drug - renal dose medications Assessment & Plan (10/20/2023 11:19 AM EDT): >>ASSESSMENT AND PLAN FOR CKD (CHRONIC KIDNEY DISEASE) STAGE 5, GFR LESS THAN 15 ML/MIN (CMS/HCC) WRITTEN ON 10/20/2023 11:18 AM BY SENAIT CAR MD >>ASSESSMENT AND PLAN FOR STAGE 5 CHRONIC KIDNEY DISEASE NOT ON CHRONIC DIALYSIS (CMS/HCC) WRITTEN ON 06/11/2022 8:54 AM BY SENAIT CAR MD - CKDIII/IV - most recent lab: Dec 2021 SCr 2.0 ; BUN 20; eGFR 24 - pt has an upcoming appt with fixed wing aircraft crew chief - avoid nephrotoxic drug - renal dose medications Assessment & Plan (10/20/2023 11:19 AM EDT): >>ASSESSMENT AND PLAN FOR CKD (CHRONIC KIDNEY DISEASE) STAGE 5, GFR LESS THAN 15 ML/MIN (CMS/HCC) WRITTEN ON 10/20/2023 11:18 AM BY SENAIT CAR MD >>ASSESSMENT AND PLAN FOR STAGE 5 CHRONIC KIDNEY DISEASE NOT ON CHRONIC DIALYSIS (CMS/HCC) WRITTEN ON 11/12/2022 10:59 AM BY SENAIT CAR MD - CKDIII/IV - most recent lab: Dec 2021 SCr 2.0 ; BUN 20; eGFR 24 - pt has an upcoming appt with fixed wing aircraft crew chief - avoid nephrotoxic drug - renal dose medications - obtain kidney biopsy result Assessment & Plan (10/20/2023 11:19 AM EDT): >>ASSESSMENT AND PLAN FOR CKD (CHRONIC KIDNEY DISEASE) STAGE 5, GFR LESS THAN 15 ML/MIN (CMS/[facility]) WRITTEN ON 10/20/2023 11:18 AM BY SENAIT CAR MD >>ASSESSMENT AND PLAN FOR STAGE 5 CHRONIC KIDNEY DISEASE NOT ON CHRONIC DIALYSIS (CMS/[facility]) WRITTEN ON 02/26/2023 12:04 PM BY SENAIT CAR MD - CKD IV-V - most recent lab: 01/21/23 Na 145; K 2.9; Cl 108; Bicarb 24; BUN 33; Scr 3.3; eGFR 15; Ca 5.7; Phos 4.6; Glu 152 - Instrument Adjuster: Dr. Bowden, last seen in September 2021 - avoid nephrotoxic drug - renal dose medications - scheduled appt with Dr. Bowden for 02/26/23 at 1:30 PM Assessment & Plan (10/20/2023 11:19 AM EDT): >>ASSESSMENT AND PLAN FOR CKD (CHRONIC KIDNEY DISEASE) STAGE 5, GFR LESS THAN 15 ML/MIN (CMS/[facility]) WRITTEN ON 10/20/2023 11:18 AM BY SENAIT CAR MD >>ASSESSMENT AND PLAN FOR STAGE 5 CHRONIC KIDNEY DISEASE NOT ON CHRONIC DIALYSIS ([facility]) WRITTEN ON 04/29/2023 9:36 AM BY SENAIT CAR MD - CKD IV-V - most recent lab: 01/21/23 Na 145; K 2.9; Cl 108; Bicarb 24; BUN 33; Scr 3.3; eGFR 15; Ca 5.7; Phos 4.6; Glu 152 - Instrument Adjuster: Dr. Bowden, last seen in Mar 2023 - avoid nephrotoxic drug - renal dose medications Assessment & Plan (10/20/2023 11:19 AM EDT): >>ASSESSMENT AND PLAN FOR CKD (CHRONIC KIDNEY DISEASE) STAGE 5, GFR LESS THAN 15 ML/MIN (CMS/HCC) WRITTEN ON 10/20/2023 11:18 AM BY SENAIT CAR MD >>ASSESSMENT AND PLAN FOR STAGE 5 CHRONIC KIDNEY DISEASE NOT ON CHRONIC DIALYSIS ([facility]) WRITTEN ON 07/23/2023 11:57 AM BY MIRNA SNYDER - CKD IV-V - most recent lab: 01/21/23 Na 145; K 2.9; Cl 108; Bicarb 24; BUN 33; Scr 3.3; eGFR 15; Ca 5.7; Phos 4.6; Glu 152 - Instrument Adjuster: Dr. Bowden, last seen in Mar 2023 - avoid nephrotoxic drug - renal dose medications Assessment & Plan (10/20/2023 11:19 AM EDT): >>ASSESSMENT AND PLAN FOR CKD (CHRONIC KIDNEY DISEASE) STAGE 5, GFR LESS THAN 15 ML/MIN ([facility]) WRITTEN ON 10/20/2023 11:18 AM BY SENAIT CAR MD >>ASSESSMENT AND PLAN FOR STAGE 5 CHRONIC KIDNEY DISEASE NOT ON CHRONIC DIALYSIS ([facility]) WRITTEN ON 08/25/2023 5:46 PM BY SENAIT CAR MD - CKD IV-V - Instrument Adjuster: Dr. Bowden, last seen in July 2023 - avoid nephrotoxic drug - renal dose medications - starting dialysis soon, likely peritoneal Peripheral arterial occlusive disease 04/16/2013 Assessment & Plan (10/23/2023 11:54 AM EDT): -s/p balloon angioplasty of left SFA on 06/10/13 -s/p left big-toe amputation -previously followed by Dr. Fuchs and Dr. Courtney at [facility], last appt in Jan 2020 -currently followed by Dr. Butler, last seen on 07/10/23 -s/p left LE angioplasty on 07/10/23 -previously seen by [facility] wound care on 05/2021 -continue Plavix and ASA -discontinued cilostazol since it is contraindicated for HF -continue tramadol for claudication pain and other back / joint pain -work on risk factor management Assessment & Plan (08/25/2023 6:07 PM EDT): -s/p balloon angioplasty of left SFA on 06/10/13 -s/p left big-toe amputation -previously followed by Dr. Fuchs and Dr. Courtney at [facility], last appt in Jan 2020 -currently followed by Dr. Butler, last seen on 07/10/23 -s/p left LE angioplasty on 07/10/23 -previously seen by [facility] wound care on 05/2021 -continue Plavix and ASA -discontinue cilostazol since it is contraindicated for HF -continue tramadol for claudication pain and other back / joint pain -work on risk factor management Assessment & Plan (07/23/2023 12:32 PM EDT): -s/p balloon angioplasty of left SFA on 06/10/13 -s/p left big-toe amputation -previously followed by Dr. Fuchs and Dr. Courtney at [facility], last appt in Jan 2020 -currently followed by Dr. Butler, last seen on 07/10/23 -s/p left LE angioplasty on 07/10/23 -previously seen by [facility] wound care on 05/2021 -continue Plavix and ASA -continue cilostazol -continue tramadol for claudication pain and other back / joint pain -work on risk factor management Assessment & Plan (04/29/2023 9:35 AM EST): -s/p balloon angioplasty of left SFA on 06/10/13 -s/p left big-toe amputation -previously followed by Dr. Fuchs and Dr. Courtney at [facility], last appt in Jan 2020 -currently followed by Dr. Butler, last seen on 04/24/22 -previously seen by [facility] wound care on 05/2021 -continue Plavix and ASA -continue cilostazol -continue tramadol for claudication pain and other back / joint pain -work on risk factor management Assessment & Plan (02/25/2023 4:53 AM EST): -s/p balloon angioplasty of left SFA on 06/10/13 -s/p left big-toe amputation -previously followed by Dr. Fuchs and Dr. Courtney at [facility], last appt in Jan 2020 -currently followed by Dr. Butler, last seen on 04/24/22 -previously seen by [facility] wound care on 05/2021 -continue Plavix and ASA -continue cilostazol -continue tramadol for claudication pain and other back / joint pain -work on risk factor management Assessment & Plan (11/12/2022 10:57 AM EDT): -s/p balloon angioplasty of left SFA on 06/10/13 -s/p left big-toe amputation -previously followed by Dr. Fuchs and Dr. Courtney at [facility], last appt in Jan 2020 -currently followed by Dr. Butler, last seen on 04/24/22 -previously seen by [facility] wound care on 05/2021 -continue Plavix and ASA -continue cilostazol -continue tramadol for claudication pain and other back / joint pain -work on risk factor management Assessment & Plan (06/11/2022 8:43 AM EDT): -s/p balloon angioplasty of left SFA on 06/10/13 -s/p left big-toe amputation -previously followed by Dr. Fuchs and Dr. Courtney at [facility], last appt in Jan 2020 -currently followed by Dr. Butler, last seen on 04/24/22 -previously seen by [facility] wound care on 05/2021 -continue Plavix and ASA -continue cilostazol -continue tramadol for claudication pain and other back / joint pain -work on risk factor management Assessment & Plan (04/01/2022 12:15 PM EST): -s/p balloon angioplasty of left SFA on 06/10/13 -s/p left big-toe amputation -previously followed by Dr. Fuchs and Dr. Courtney at [facility], last appt in Jan 2020 -currently followed by Dr. Butler and [facility] wound care on 05/2021, with [facility] RN [...] Previously on sertraline. Due to prolonged QT-c, wound care specialist recommended to discontinue - Started on mirtazapine 7.5 mg at bedtime in September 2023. She reports her mood has been better and stable. - Continue mirtazapine. Assessment & Plan (08/25/2023 5:58 PM EDT): - Previously on sertraline. Due to prolonged QT-c, wound care specialist recommended to discontinue - Asked our pharmacist to review her medications - will consider adding bupropion, or venlafaxine, or duloexetine (Cymbalta). Assessment & Plan (02/26/2023 12:15 PM EST): - Previously on sertraline. Due to prolonged QT-c, wound care specialist recommended to discontinue - Asked our pharmacist [...] at goal today -Co-managed with our pharmacist, fixed wing aircraft crew chief, and wound care specialist -Continue working on lifestyle modifications -Continue carvedilol 12.5 mg bid -Continue hydralazine 10 mg bid, will check with pharmacist and fixed wing aircraft crew chief whether she is still taking it -Continue amlodipine 2.5 mg daily -Continue furosemide 80 mg daily - Treatment Hx: Discontinued amlodipine 5 mg daily due to swelling, Furosemide dose was increased during recent hospitalization for HF, isosorbide was added. Spironolactone (Hx hypokalemia), but discontinued when she moved to [place]. Losartan and chlorthalidone were discontinued in May [...] at goal today -Co-managed with our pharmacist, fixed wing aircraft crew chief, and wound care specialist -Continue working on lifestyle modifications -Continue carvedilol 12.5 mg bid -Continue hydralazine -Continue furosemide 80 mg daily - Treatment Hx: Discontinued amlodipine 5 mg daily due to swelling, Furosemide dose was increased during recent hospitalization for HF, isosorbide was added. Spironolactone (Hx hypokalemia), but discontinued when she moved to [place]. Losartan and chlorthalidone were discontinued in May [...] at goal today -Co-managed with our pharmacist, fixed wing aircraft crew chief, and wound care specialist -Continue working on lifestyle modifications -Continue metoprolol tartrate 25 mg bid -Discontinued amlodipine 5 mg daily yesterday by fixed wing aircraft crew chief due to swelling -started furosemide 40 mg daily Treatment Hx: Previously on spironolactone (Hx hypokalemia), but discontinued when she moved to [place] Losartan and chlorthalidone were discontinued in May [...] at goal today -Co-managed with our pharmacist, fixed wing aircraft crew chief, and wound care specialist -Continue working on lifestyle modifications -Continue metoprolol tartrate 25 mg bid -Continue amlodipine 5 mg daily Treatment Hx: Previously on spironolactone (Hx hypokalemia), but discontinued when [place] moved [place] Losartan and chlorthalidone were discontinued in May [...] at goal today -Co-managed with our pharmacist, fixed wing aircraft crew chief, and wound care specialist -Continue working on lifestyle modifications -Continue metoprolol tartrate 25 mg bid -Continue amlodipine 5 mg daily Treatment Hx: Previously on spironolactone (Hx hypokalemia), but discontinued when [place] moved [place] Losartan and chlorthalidone were discontinued in May [...] hypokalemia), but discontinued when [place] moved [place] Losartan and chlorthalidone were discontinued in May [...] hypokalemia), but discontinued when [place] moved [place] Losartan and chlorthalidone were discontinued in May [...] 6.7% on 10/22/23 - last seen by waterworks pump station operator, Dr. Herndon in Apr 2022. - Continue [...] 08/22/23, has worsened - last seen by waterworks pump station operator, Dr. Herndon in Apr 2022. - Continue [...] 6.8% on 07/23/23 - last seen by waterworks pump station operator, Dr. Herndon in Apr 2022. - Continue [...] 6.9% on 10/31/22 - last seen by waterworks pump station operator, Dr. Herndon in Apr 2022. - Continue [...] 8.8% on 03/29/22 - last seen by waterworks pump station operator, Dr. Herndon in Apr 2022. - Continue [...] followed by Dr. Leroy. Cataract surgery in 2015. - Last foot exam: 09/25/21. High-risk. PAD. [...] 8.8% on 03/29/22 - last seen by [facility] waterworks pump station operator on 02/20/21. Refer to a new waterworks pump station operator for transportation convenience. - Continue basal insulin: [...] 7.8% on 09/25/21 - last seen by [facility] waterworks pump station operator on 02/20/21. Refer to a new waterworks pump station operator for transportation convenience. - Continue basal insulin: [...] 7.8% on 09/25/21 - last seen by [facility] waterworks pump station operator on 02/20/21. Refer to a new waterworks pump station operator for transportation convenience. - Continue basal insulin: [...] Plan (06/11/2022 8:54 AM EDT): Refer to road cleaner Obesity 11/07/2011 03/29/2022 Encounters Date Type Department Care Team Description 04/17/2024 Orders Only [facility] MEDICINE [address] [place] [address] Senait Car MD Dark stools (Primary Dx); Diarrhea, unspecified type; Postoperative hypothyroidism 04/17/2024 Telephone [facility] MEDICINE [address] [place] [address] Senait Car MD Nurse Triage; Care Coordination 04/15/2024 Refill [facility] MEDICINE [address] [place] [address] Senait Car MD 03/23/2024 Refill [facility] MEDICINE [address] [place] [address] Wanda Beal ANP Type 2 diabetes mellitus with stage 4 chronic kidney disease, with long-term current use of insulin ([facility]) 03/23/2024 Refill [facility] MEDICINE [address] [place], [place] [phone] Senait Car MD 03/04/2024 Telephone [facility] MEDICINE [address] [place], [place] [phone] Coreen Mondragon [place] march recall 02/15/2024 Refill [facility] MEDICINE [address] [place] [address] Senait Car MD Type 2 diabetes mellitus with stage 4 chronic kidney disease, with long-term current use of insulin ([facility]) 02/06/2024 Refill [facility] MEDICINE [address] [place], [place] [phone] Senait Car MD from Last 3 Months Immunizations Name Administration [...] 01/14/2020, Additional history exists Diabetes: Hemoglobin A1C 01/22/2024 024, 09/05/2023, 08/22/2023, Additional history exists SDOH Screening 07/22/2024 07/23/2023 Eye Exam 08/04/2024 08/04/2022 Diabetes: Foot Exam 08/21/2024 08/22/2023 Lipid Panel 09/04/2024 09/05/2023, 0808/2022, 02/17/2021, Additional history exists Alcohol/Substance Use Screening 10/21/2024 10/22/2023 Tobacco Screening 10/21/2024 10/22/2023 Mammogram 01/16/2026 01/17/2024, 09/16, 06/15/2021, Additional history exists DTaP/Tdap/Td Vaccines (4 - Td or Tdap) 06/06/2032 06/06/2022, 07/28/2021, 02/26/2011 Hepatitis B Vaccines Completed 06/17/2014, 02/09/2014, 09/15/2013 Zoster Vaccines Completed 01/14/2020, 11/10/2019 Pneumococcal Vaccine: 50+ Years Completed 10/31/2022, 02/26/2011 HIB Vaccines Aged [...] gangrene, with long-term current use of insulin ([facility]) LIPID PANEL WITH REFLEX TO DIRECT LDL Routine 09/05/2023 3:02 PM EDT Dyslipidemia 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 chronic dialysis, with long-term current use of insulin ([facility]) DIABETES EYE EXAM Routine 08/04/2022 from Last 3 Months or Most Recently Relevant to Health Maintenance Results * BI Mammogram Screening Tomosynthesis Bilateral (01/17/2024 3:00 PM EDT) Anatomical Region Laterality Modality Breast Bilateral Mammography 01/17/2024 3:00 PM EDT Narrative 01/27/2024 7:44 PM EST ? [facility] ? [address] ?[place] [address] ? Mammography Report ? Signed ? Patient: Ricky So,Iris N ?MR#: ?? [id number] ? : 1955 ?Acct:[id number] ? Age/Sex: 68 / F ?ADM Date: 01/17/24 ? Loc: HO.MAMMO ? Attending Dr: Senait Car MD ? Ordering Physician: Senait Car MD ?Results: 2Benign F ?? indings ? Date of Service: 01/17/24 ?Follow Up: 1 Year From Orig ?? inal Mammogram ? Procedure(s): MM tomosynthesis screening BI ?? Accession Number(s): [id number] ? cc: Senait Car MD ? EXAMINATION: [...] by Camilla Poole, DO in OV> ? 01/27/241940 ? DD/ 1500 ? TD/TT: 01/17/24 1515 ? Pastoral Counselor: ? Procedure Note Donotuseinterpreter, Image - 01/27/2024 [facility] [address] [place] [address] Mammography Report Signed Patient: Sarah Jones NMR#: [id number] : 5Acct:[id number] Age/Sex: 68 / FADM Date: 01/17/24 Loc: [facility] Attending Dr: Senait Car MD Ordering Physician: Senait Car MDResults: 2Benign F indings Date of Service: 01/17/24Follow Up: 1 Year From [facility] Mammogram Procedure(s): MM tomosynthesis screening BI Accession Number(s): [id number] cc: Senait Car MD EXAMINATION: MM SCREENING [...] their next mammogram. Electronically signed by: Camilla Poole DO 01/27/2024 07:41 PM EST Dictated By: Camilla Poole DO Signed By: <Electronically signed by Camilla Poole DO in OV> 01/27/24 194 DD/ 1500 TD/TT: 01/17/24 1515 Pastoral Counselor: us Senait Car MD IMG BI PROCEDURES Edited Result - Final * (ABNORMAL) POCT glycosylated hemoglobin (Hgb A1c) (10/22/2023 9:20 AM EDT) Hemoglobin A1C 6.7(A) 4.0 - 6.0 % QC Media Lot # [id number] Lot# Expiration Date [id number] Blood Capillary blood specimen / Unknown 10/22/2023 9:20 AM EDT us Senait Car MD POINT OF CARE TEST ENTER/EDIT OR DERABLES Final Result * (ABNORMAL) Lipid Panel with Reflex to Direct LDL (09/05/2023 3:02 PM EDT) Triglycerides 95 <150 mg/dL [facility] Comment:Desirable Triglyceri de: less than 150 mg/dLBorderline High Triglyceride 150-199 mg/dLHigh Triglyceride: 200-499 mg/dLVery High Triglyceride: greater than or equal to 5OO mg/dL Cholesterol 99 <200 mg/dL [facility] Comment:Desirable Cholestero l: less than 200 mg/dLBorderline High Cholesterol: 200-239 mg/dLHigh Cholesterol: greater than 239 mg/dL LDL Cholesterol Calculated 47 <100 mg/dL [facility] Comment:Desirable LDL: less than 100 mg/dLNear Optimal/Above Optimal LDL: 110- 129 mg/dLBorderline High LDL: 130-159 mg/dLHigh LDL: 160-189 mg/dLVery High LDL: greater than or equal to 190 mg/dL HDL Cholesterol 33(L) >40 mg/dL [facility] Comment:Desirable HDL: great er than 40 mg/dL Note: This HDL assay may give artificially low results in patients with liver disease. Blood 09/05/2023 3:02 PM EDT 09/05/2023 3:03 PM EDT Senait Car MD LAB BLOOD ORDERABLES Final Resul t [facility] [address] [place] [phone] * Diabetes Eye Exam (08/04/2022) [facility] Signature Eye Exam Normal Normal [facility] Unassigned Pcp HEALTH MAINTENANCE Final Result from Last 3 Months or Most Recently Relevant to Health Maintenance Insurance * Guarantor: Sarah Jones Account Type Relation to Patient Date of Phone Billing Address Personal/Family Self [address] [place] [address] [facility] * Guarantor: Sarah Jones Account Type Relation to Patient Date of Phone Billing Address Personal/Family Self [address] [place] [address] Care Teams Graphic Art Designer Relationship Specialty Start Date End Date Senait Car MD [address] [place] [address] PCP - General Family Medicine 02/22/20 Gustabo Fernandez, PharmD [address] [facility] [place] [address] Pharmacist Internal Medicine 07/16/22 [facility] 09/14/23
[2024-04-22 22:52] LABS: Alanine Aminotransferase 8 U/L (0-31); Albumin Level 1.8 g/dL (3.5-5.0); Alkaline Phosphatase 69 U/L (39-117); Anion Gap 12 (12-20); Aspartate Amino Transferase 33 U/L (5-31); Bilirubin Total 0.2 mg/dL (0.0-1.0); Blood Urea Nitrogen 37 mg/dL (9-16); Calcium 4.2 mg/dL (8.4-10.2); Carbon Dioxide 25 mmol/L (22-29); Chloride 105 mmol/L (96-108); Creatinine Clr Calc Pharmacy 15.6; Estimated Glomerular Filt Rate 15; Glucose Random 213 mg/dL (60-115); Potassium 3.5 mmol/L (3.3-5.1); Sodium 138 mmol/L (135-145); Total Protein 4.9 g/dL (6.5-8.0)
--- OUTSIDE RECORDS SUMMARY | 2024-04-22 22:52 | XMS_ITS | Encounter Summary ---
Author Organization [employer] Address [address] [place] [address] Care Team Providers Care Automatic Cigar Wrapper Tender Name Role Phone Senait Pal MD Primary Care Provider [phone] Gustabo Fernandez PharmD Unavailable [phone] Reason for Visit * Reason Comments Med Refill Encounter Details Date Type Department Care Team ([facility] st Contact Info) Description 10/09/2023 Refill [facility] MEDICINE [address] [place], [place] [phone] Senait Pal MD [address] [place], [place] [phone] Type 2 diabetes mellitus with stage 4 chronic kidney disease, with long-term current use of insulin ([facility]) Social History Tobacco Use Types Packs/Day Years [...] is your housing situation today? I have marinomarcelo vásquez 07/23/[address] you [...] disease, with long-term current use of insulin ([facility]) documented in this encounter Additional Health Concerns Assessment Noted Time PHQ-9 Depression Total Score: 7 11/01/19 23 11:04 AM EDT documented as of this encounter Care Teams Automatic Cigar Wrapper Tender Relationship Specialty Start Date End Date Senait Pal MD [address] [place] [address] PCP - General Family Medicine 02/22/20 Gustabo Fernandez PharmD [address] [place] [address] Pharmacist Internal Medicine 07/16/22 [facility] 09/14/23 documented as of this encounter
--- OUTSIDE RECORDS SUMMARY | 2024-04-22 22:52 | XMS_ITS | Encounter Summary ---
Author Organization [employer] Address [address] [place] [address] Care Team Providers Care Research Technician Name Role Phone Senait Pal MD Primary Care Provider Gustabo Fernandez PharmD Unavailable [phone] Encounter Details Date Type Department Care Team (Late st Contact Info) Description 06/11/2022 Abstract [facility] MEDICINE [address] [place], [place] [phone] Senait Pal MD [address] [place], [place] [phone] Social History Tobacco Use Types Packs/Day Years [...] on filedocumented in this encounter Care Teams Research Technician Relationship Specialty Start Date End Date Senait Pal MD [address] [place], [place] [phone] PCP - General Family Medicine 02/22/20 Gustabo Fernandez, PharmD [address] [place] [address] Pharmacist Internal Medicine 07/16/22 [facility] 09/14/23 documented as of this encounter
--- OUTSIDE RECORDS SUMMARY | 2024-04-22 22:52 | XMS_ITS | Encounter Summary ---
Author Organization [employer] Address [address] [place] [address] Care Team Providers Care Crayon Molding Machine Operator Name Role Phone Senait Pal MD Primary Care Provider [phone] Gustabo Fernandez PharmD Unavailable [phone] Reason for Visit * Reason Onset Date Comments Durable Medical Equipment 12/10/2022 Encounter Details Date Type Department Care Team (Late st Contact Info) Description 12/10/2022 Telephone [facility] MEDICINE [address] [place], [place] [phone] Senait Pal MD [address] [place], [place] [phone] Durable Medical Equipment Social History Tobacco Use [...] documented as of this encounter Care Teams Crayon Molding Machine Operator Relationship Specialty Start Date End Date Senait Pal MD [address] [place] [address] PCP - General Family Medicine 02/22/20 Gustabo Fernandez PharmD [address] [place] [address] Pharmacist Internal Medicine 07/16/22 [facility] 09/14/23 documented as of this encounter
--- OUTSIDE RECORDS SUMMARY | 2024-04-22 22:52 | XMS_ITS | Encounter Summary ---
Author Organization [employer] Address [address] [place] [address] Care Team Providers Care Track Announcer Name Role Phone Senait Pal MD Primary Care Provider [phone] Gustabo Fernandez PharmD Unavailable [phone] Reason for Visit * Reason Comments Med Refill Encounter Details Date Type Department Care Team ([facility] st Contact Info) Description 04/15/2024 Refill [facility] MEDICINE [address] [place], [place] [phone] Senait Pal MD [address] [place], [place] [phone] Social History Tobacco Use Types Packs/Day Years [...] documented as of this encounter Care Teams Track Announcer Relationship Specialty Start Date End Date Senait Pal MD [address] [place] [address] PCP - General Family Medicine 02/22/20 Gustabo Fernandez PharmD [address] [place] [address] Pharmacist Internal Medicine 07/16/[address] [facility] 09/14/23 documented as of this encounter
--- OUTSIDE RECORDS SUMMARY | 2024-04-22 22:52 | XMS_ITS | Encounter Summary ---
Author Organization [employer] Address [address] [place] [address] Care Team Providers Care [employer] Rep Name Role Phone Senait Pal MD Primary Care Provider [phone] Gustabo Fernandez PharmD Unavailable [phone] Reason for Visit * Reason Onset Date Comments Referral 04/05/2022 Encounter Details Date Type Department Care Team (Late st Contact Info) Description 04/05/2022 Telephone [facility] MEDICINE [address] [place], [place] [phone] Senait Pal MD [address] [place], [place] [phone] Referral Social History Tobacco Use Types Packs/Day [...] for aallergist specialist Please contact pt at [phone] documented in this encounter Plan of Treatment Not on file documented as of this encounter Visit Diagnoses Not on filedocumented in this encounter Care Teams [employer] Rep Relationship Specialty Start Date End Date Senait Pal MD [address] [place] [address] PCP - General Family Medicine 02/22/20 Gustabo Fernandez, Agnes [address] [place] [address] Pharmacist Internal Medicine 07/16/22 [facility] 09/14/23 documented as of this encounter
--- OUTSIDE RECORDS SUMMARY | 2024-04-22 22:52 | XMS_ITS | Encounter Summary ---
Author Organization [employer] Address [address] [facility] [address]t [place] [address] Care Team Providers Care Telephone Appointment Clerk Name Role Phone Senait Pal MD Primary Care Provider [phone] Gustabo Fernandez PharmD Unavailable Reason for Visit * Reason Onset Date Comments Durable Medical Equipment 10/01/2023 Encounter Details Date Type Department Care Team (Late st Contact Info) Description 10/01/2023 Telephone [facility] MEDICINE [address] [place], [place] [phone] Senait Pal MD [address] [place], [place] [phone] Durable Medical Equipment Social History Tobacco Use [...] 12:24 PM EDT Tc from Rosangela at [facility] calling to request DME raised toilet seat transfer tub bench Please fax to [phone] documented in this encounter Plan of Treatment [...] documented as of this encounter Care Teams Telephone Appointment Clerk Relationship Specialty Start Date End Date Senait Pal MD [address] [place] [address] PCP - General Family Medicine 02/22/20 Gustabo Fernandez PharmD [address] [place] [address] Pharmacist Internal Medicine 07/16/22 [facility] 09/14/23 documented as of this encounter
--- OUTSIDE RECORDS SUMMARY | 2024-04-22 22:52 | XMS_ITS | Encounter Summary ---
Author Organization [employer] Address [address] [facility] [address] [place] [address] Care Team Providers Care Silica Filter Operator Name Role Phone Senait Pal MD Primary Care Provider [phone] Gustabo Fernandez PharmD Unavailable [phone] Reason for Visit * Reason Onset Date Comments Nurse Triage 09/26/2023 Encounter Details Date Type Department Care Team ([facility] st Contact Info) Description 09/26/2023 Telephone [facility] MEDICINE [address] [place], [place] [phone] Senait Pal MD [address] [place], [place] [phone] Nurse Triage Social History Tobacco Use Types [...] symptoms worsen to be seen in the [facility]. Pt agreeable to plan and stated unders tanding. Forwarding to PCP and Radha Burciaga for FYI * Telephone Encounter - Brielle Henry LPN - 09/26/2023 9:34 AM EDT Triage call returned to patient who reports increased anxiety and crying and outburst while at homeand while in the community. Patient reports that a medication was discontinued by ( patient confirms who is [facility] and not her PCP ? )and that since that time she is having issues. Name of medication unknown, believes it was approx one month ago. No documentation identified at time of call. Patient denies SI/HI but reports that she is screaming out and then slapping her own face when agitated. Disposition reviewed and no pCP appts available. ASK/E.Patrica LINOLEUM LAYER on 09/30/23 @330pm following dialysis. [facility] clinicians explained to patient who was not [...] documented as of this encounter Care Teams Silica Filter Operator Relationship Specialty Start Date End Date Senait Pal MD [address] [place] [address] PCP - General Family Medicine 02/22/20 Gustabo Fernandez, HarshaD [address] [place] [address] Pharmacist Internal Medicine 07/16/22 [facility] 09/14/23 documented as of this encounter
--- OUTSIDE RECORDS SUMMARY | 2024-04-22 22:52 | XMS_ITS | Encounter Summary ---
Demographics Address [address] [place] [address] Mobile Phone Home Phone Email Address Preferred Language en Marital Status Single Church Affiliation Unknown Race Other Race Ethnic Group or Author Organization [employer] Address [address] [place] [address] Care Team Providers Care Vending Mechanic Name Role Phone Senait Pal MD Primary Care Provider [phone] Gustabo Fernandez PharmD Unavailable [phone] Reason for Visit * Reason Comments Med Refill Encounter Details Date Type Department Care Team ([facility] st Contact Info) Description 03/23/2024 Refill [facility] MEDICINE [address] [place], [place] [phone] Wanda Beal, ANP [address] [place], [place] [phone] Type 2 diabetes mellitus with stage 4 chronic kidney disease, with long-term current use of insulin ([facility]) Social History Tobacco Use Types Packs/Day Years [...] your housing situation today? I have marion vsáquez 07/23/[address] you li [...] the past 12 months, has t he [employer], gas, oil or water company threatened to [...] disease, with long-term current use of insulin ([facility]) documented in this encounter Additional Health Concerns Assessment Noted Time PHQ-9 Depression Total Score: 7 11/01/19 23 11:04 AM EDT documented as of this encounter Care Teams Vending Mechanic Relationship Specialty Start Date End Date Senait Pal MD [address] [place] [address] PCP - General Family Medicine 02/22/20 Gustabo Fernandez PharmD [address] [place] [address] Pharmacist Internal Medicine 07/16/[address] [facility] 09/14/23 documented as of this encounter
--- OUTSIDE RECORDS SUMMARY | 2024-04-22 22:52 | XMS_ITS | Encounter Summary ---
Author Organization [employer] Address [address] [place] [address] Care Team Providers Care Maintenance Shop Clerk Name Role Phone Senait Pal MD Primary Care Provider [phone] Gustabo Fernandez PharmD Unavailable [phone] Reason for Referral * Imaging (Routine) - Closed Specialty Diagnoses / Procedures Referred By Contac t Referred To Contact Diagnoses Enlarged lymph node in neck Procedures US guided biopsy lymph node superficial Senait Pal MD [address] [place] [address] Phone: tel: fax: [address] Phone: tel: fax: Referral ID Status Reason Start Date Expiration Date Visits Re quested Visits Authorized [id number] Closed 07/03/2022 12/30/2022 1 1 Encounter Details Date Type Department Care Team (Late st Contact Info) Description 07/03/2022 Orders Only [facility] MEDICINE [address] [place], [place] [phone] Senait Pal MD [address] [place], [place] [phone] Enlarged lymph node in neck (Primary Dx) [...] Primary documented in this encounter Care Teams Maintenance Shop Clerk Relationship Specialty Start Date End Date Senait Pal MD [address] [place] [address] PCP - General Family Medicine 02/22/20 Gustabo Fernandez, HarshaD [address] [place] [address] Pharmacist Internal Medicine 07/16/22 [facility] 09/14/23 documented as of this encounter
--- OUTSIDE RECORDS SUMMARY | 2024-04-22 22:52 | XMS_ITS | Encounter Summary ---
Author Organization [employer] Address [address] 7[address] [place] [address] Care Team Providers Care Server Software Engineer Name Role Phone Senait Pal MD Primary Care Provider [phone] Gustabo Fernandez PharmD Unavailable [phone] Reason for Visit * Reason Onset Date Comments Nurse Triage 04/17/2024 Care Coordination 04/17/2024 Encounter Details Date Type Department Care Team (Late st Contact Info) Description 04/17/2024 Telephone [facility] [address] [place] [address] Senait Pal MD [address] [place], [place] [phone] Nurse Triage; Care Coordination Social History Tobacco Use Types Packs/Day Years [...] the past 12 months, has t he [employer], gas, oil or water [employer] threatened to shut off services in your [...] encounter Miscellaneous Notes * Telephone Encounter - Leora Singh RN - 04/21/2024 9:53 AM EST Telephone call placed to [facility].Spoke with Caesar who states chiropractic care Donita unavailable but that mohamudlito send her a message to have her follow up with pt regarding coordinating and remembering her specialist appts. Donita will call me back as needed. * Telephone Encounter - Leora Singh RN - 04/20/2024 3:55 PM EST Telephone call placed to pt to triage. Pt reports that diarrhea is an issue that has been happeningfor a long time. Has been on imodium which helps. Diarrhea is intermittent depending on whether or not she has taken the imodium. Is not happening today. Reports ongoing weakness as well. Denies dry oral membranes, dizziness, LOC, dark urine, decreased urine output, or any other Sx. Informed that PCP has ordered labs and that I will have [facility] go to her house to do lab draw. Advised if diarrhea worsens or if she becomes dizzy or experiences Sx above to call us, come to [facility] or ED, or call [facility] instED. Pt agreeable. Faxed home labs to [facility]. Telephone call placed to [facility] clinical coordinator. However, they stated their system is down so they are unable to pull pt up to assist. Will retask to attempt to call again tomorrow. * Telephone Encounter - Leora Singh RN - 04/18/2024 9:20 AM EST Telephone call x2 placed to pt regarding below message to triage. No answer, left v/m. Will retask to Saturday to contact pt gain and to call director of medicare * Telephone Encounter - Leora Singh RN - 04/17/2024 1:27 PM EST Telephone call placed to pt to triage regarding diarrhea and weakness noted below. No answer, left v/m. Please call patient's chiropractic care and request an assistance in organizing appointment with specialists (and keeping appointments). She only goes to see a milk of lime slaker, but patient did not follow upwith ENT, is uncertain about appointment with panel saw operator, metal painter, vascular specialist, and deck builder (thyroid). Also, please ask if they can arrange a nurse to go to see her and obtain blood / stool sample. Lab order is generated. She may benefit from Inst[facility] visit. Thank you. * Telephone Encounter - Senait Pal MD - 04/17/2024 11:39 AM EST Called patient today because patient missed her appointment with neurologist. Patient states she was unaware and did not receive any call or letter. Given the number for [facility] [place] to reschedule. Patient reports diarrhea and feeling weak. Patient has been taking loperamide for diarrhea. Dark stools. Patient states she has spoken with her milk of lime slaker recently about diarrhea, and was told that patient is being referred to another specialist, but is uncertain of the exact plan. Patient states her apartment building sometimes does not have functioning intercom / doorbell. Will request patient's chiropractic care that patient needs an assistance in organizing appointment with specialists. She only goes to see a milk of lime slaker, but patient did not follow up with ENT, is uncertain about appointmentwith panel saw operator, metal painter, vascular specialist, and deck builder (thyroid). Patient also needs a lab. Will check if [facility] can send a nurse to do blood and obtain stool specimen. documented in this encounter Plan of Treatment [...] documented as of this encounter Care Teams Server Software Engineer Relationship Specialty Start Date End Date Senait Pal MD [address] [place] [address] PCP - General Family Medicine 02/22/20 Gustabo Fernandez, HarshaD [address] [place] [address] Pharmacist Internal Medicine 07/16/[address] [facility] 09/14/23 documented as of this encounter
--- OUTSIDE RECORDS SUMMARY | 2024-04-22 22:52 | XMS_ITS | Encounter Summary ---
Demographics Address [address] [place] [address] Home Phone Preferred Language es Marital Status Unknown Bahai Affiliation Unknown Race White Ethnic Group Unknown Author Organization [facility] Address [address] [place] [address] Phone Care Team Providers Care Transfill Technician Name Role Phone Senait Pal MD Primary Care Provider [phone] Encounter Details Date Type Department Care Team (Late st Contact Info) Description 06/08/2020 Orders Only [facility] [address] [place] [address] ProviderJesus [place] [facility] [place] [address] Social History Tobacco Use Types [...] on filedocumented in this encounter Care Teams Transfill Technician Relationship Specialty Start Date End Date Senait Pal MD PCP - General 03/28/20 documented as of this encounter
--- OUTSIDE RECORDS SUMMARY | 2024-04-22 22:52 | XMS_ITS | Encounter Summary ---
Author Organization [employer] Address [address] 7t [place] [address] Care Team Providers Care Honey Blender Name Role Phone Senait Pal MD Primary Care Provider [phone] Gustabo Fernandez PharmD Unavailable [phone] Reason for Referral * Consultation (STAT) - Closed Specialty Diagnoses / Procedures Referred By Contac t Referred To Contact Neurology Diagnoses Hearing loss of left ear, unspecified hearing loss type Meningioma (CMS/HCC) Senait Pal MD [address] [place], [place] Phone: tel: fax: Bianca Lockett MD [address] [place] [address] [place] [address] Phone: tel: fax: Referral ID Status Reason Start Date Expiration Date V isits Requested Visits Authorized [id number] Closed Specialty Services Required 01/15/2024 01/14/2025 1 1 Encounter Details Date Type Department Care Team (Late st Contact Info) Description 01/15/2024 Orders Only [facility] MEDICINE [address] [place] [address] Senait Pal MD [address] [place], [place] Hearing loss of left ear, unspecified [...] documented as of this encounter Care Teams Honey Blender Relationship Specialty Start Date End Date Senait Pal MD [address] [place] [address] PCP - General Family Medicine 02/22/20 Gustabo Fernandez PharmD [address] [place] [address] Pharmacist Internal Medicine 07/16/22 [facility] 09/14/23 documented as of this encounter
--- OUTSIDE RECORDS SUMMARY | 2024-04-22 22:52 | XMS_ITS | Encounter Summary ---
Author Organization [employer] Address [address]t [place] [address] Care Team Providers Care Erp Business Analyst Name Role Phone Senait Pal MD Primary Care Provider [phone] Gustabo Fernandez PharmD Unavailable [phone] Reason for Visit * Reason Onset Date Comments Hospital Follow-up 09/24/2023 Encounter Details Date Type Department Care Team ([facility] st Contact Info) Description 09/24/2023 Telephone [facility] MEDICINE [address] [place], [place] [phone] Senait Pal MD 230 [place], [place] [phone] Hospital Follow-up Social History Tobacco Use Types [...] documented as of this encounter Care Teams Erp Business Analyst Relationship Specialty Start Date End Date Senait Pal MD [address] [place] [address] PCP - General Family Medicine 02/22/20 Gustabo Fernandez, HarshaD [address] [place] [address] Pharmacist Internal Medicine 07/16/22 [facility] 09/14/23 documented as of this encounter
--- OUTSIDE RECORDS SUMMARY | 2024-04-22 22:52 | XMS_ITS | Encounter Summary ---
Author Organization [employer] Address [address] [place] [address] Care Team Providers Care Concrete Buster Operator Name Role Phone Senait Pal MD Primary Care Provider [phone] Gustabo Fernandez PharmD Unavailable [phone] Encounter Details Date Type Department Care Team ([facility] st Contact Info) Description 04/26/2022 Orders Only [facility] [address] [place], [place] [phone] Senait Pal MD [address] [place], [place] [phone] Tobacco user (Primary Dx) Social History Tobacco [...] disorder documented in this encounter Care Teams Concrete Buster Operator Relationship Specialty Start Date End Date Senait Pal MD [address] [place], [place] [phone] PCP - General Family Medicine 02/22/20 Gustabo Fernandez, PharmD [address] [place] [address] Pharmacist Internal Medicine 07/16/22 [facility] 09/14/23 documented as of this encounter
--- OUTSIDE RECORDS SUMMARY | 2024-04-22 22:52 | XMS_ITS | Encounter Summary ---
Author Organization [employer] Address [address] [place] [address] Care Team Providers Care Plant Operator Name Role Phone Senait Pal MD Primary Care Provider [phone] Gustabo Fernandez PharmD Unavailable [phone] Encounter Details Date Type Department Care Team ([facility] st Contact Info) Description 02/26/2023 Orders Only [facility] MEDICINE [address] [place], [place] [phone] Senait Pal MD [address] [place], [place] [phone] Social History Tobacco Use Types Packs/Day Years [...] EST) Vitamin D, 25-OH, D2 <4 ng/mL [facility] Comment:This test was reagan cerda and its analytical performancecharacteristics have been determined by [facility] [place], [place]. It hasnot been cleared or approved by the U.S. Food and DrugAdministration. This assay has been validated pursuantto the CLIA regulations and is used for clinicalpurposes.THIS TEST WAS PERFORMED AT:[employer] [place] [address]IBZCADSCONNIE AVILA MD,PHD Vitamin D, 25-OH, D3 47 ng/mL [facility] Comment:This test was develo ped and its analytical performancecharacteristics have been determined by [facility] [place], [place]. It hasnot been cleared or approved by the U.S. Food and DrugAdministration. This assay has been validated pursuantto the CLIA regulations and is used for clinicalpurposes. Vitamin D, 25-OH, Total 47 30 - 100 ng/mL [facility] Comment:Vitamin D, 25-Hydrox y reports [...] = 30 ng/mL.For additional information, please refer tohttp://education.ZeOmega/faq/ZSG726(This link is being provided for informational/educational purposes only.) 02/26/2023 2:25 PM EST 02/26/2023 2:25 PM EST us Generic External Data Provider LAB BLOOD ORDERAB LES Final Result [facility] [address] [place] [phone] * (ABNORMAL) Calcium, Ionized (02/26/2023 2:25 PM EST) Calcium, Ionized 3.6(A) 4.7 - 5.5 mg/dL [facility] Comment:THIS TEST WAS PERFOR MED AT:[employer] [place] [phone] RAHMAN MD 02/26/2023 2:25 PM EST 02/26/2023 2:25 PM EST us Generic External Data Provider LAB BLOOD ORDERAB LES Final Result Performing Organization Address [facility] Co de Phone Number [facility] [address] [place] [address] [phone] * (ABNORMAL) PTH, Intact Without Calcium (02/26/2023 2:25 PM EST) Parathyroid Hormone, Intact 135.0(H) 8.7 - 77.1 pg/mL [facility] 02/26/2023 2:25 PM EST 02/26/2023 2:25 PM EST Generic External Data Provider LAB BLOOD ORDERAB LES Final Result Performing Organization Address [facility] Phone Number [facility] [address] [place] [phone] documented in this encounter Visit Diagnoses Not on filedocumented in this encounter Additional Health Concerns Assessment Noted Time PHQ-9 Depression Total Score: 7 11/01/19 23 11:04 AM EDT documented as of this encounter Care Teams Plant Operator Relationship Specialty Start Date End Date Senait Pal MD [address] [place] [address] PCP - General Family Medicine 02/22/20 Gustabo Fernandez, HarshaD [address] [place] [address] Pharmacist Internal Medicine 07/16/22 [facility] 09/14/23 documented as of this encounter
--- OUTSIDE RECORDS SUMMARY | 2024-04-22 22:52 | XMS_ITS | Encounter Summary ---
Author Organization [employer] Address [address] 7[address] [place] [address] Care Team Providers Care Exceptional Student Education Aide Name Role Phone Senait Pal MD Primary Care Provider [phone] Gustabo Fernandez PharmD Unavailable [phone] Reason for Referral * Medications - Closed Specialty Diagnoses / Procedures Referred By Paul osborne Referred To Contact Diagnoses Type 2 diabetes mellitus with diabetic peripheral angiopathy without gangrene, with long-term current use of insulin (CMS/HCC) 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 chronic dialysis, with long-term current use of insulin (CMS/HCC) Senait Pal MD [address] [place] [address] Phone: tel: fax: Referral ID Status Reason Start Date Expiration Date Visits Re quested Visits Authorized [id number] Closed 1 1 * Medications - Closed Specialty Diagnoses / Procedures Referred By Paul osborne Referred To Contact Diagnoses Type 2 diabetes mellitus with diabetic peripheral angiopathy without gangrene, with long-term current use of insulin (CMS/HCC) 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 chronic dialysis, with long-term current use of insulin (CMS/HCC) Senait Pal MD [address] [place] [address] Phone: tel: fax: Referral ID Status Reason Start Date Expiration Date Visits Re quested Visits Authorized [id number] Closed 1 1 Encounter Details Date Type Department Care Team (Late st Contact Info) Description 09/24/2023 Orders Only [facility] MEDICINE [address] [facility] [place] [address] Senait Pal MD [address] [facility] [place] [address] Type 2 diabetes mellitus with diabetic peripheral [...] gangrene, with long-term current use of insulin ([facility])- Primary 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 chronic dialysis, with long-term current use of insulin (CMS/[facility]) Pain in both lower extremities documented in this encounter Additional Health Concerns Assessment Noted Time PHQ-9 Depression Total Score: 7 11/01/19 23 11:04 AM EDT documented as of this encounter Care Teams Exceptional Student Education Aide Relationship Specialty Start Date End Date Senait Pal MD [address] [place] [address] PCP - General Family Medicine 02/22/20 Gustabo Fernandez, HarshaD [address] [place] [address] Pharmacist Internal Medicine 07/16/22 [facility] 09/14/23 documented as of this encounter
--- OUTSIDE RECORDS SUMMARY | 2024-04-22 22:52 | XMS_ITS | Encounter Summary ---
Author Organization [employer] Address [address] [facility] 7t [place] [address] Care Team Providers Care Immigration Officer Name Role Phone Senait Pal MD Primary Care Provider [phone] Gustabo Fernandez PharmD Unavailable Reason for Referral * Imaging (Routine) - Closed Specialty Diagnoses / Procedures Referred By Contac t Referred To Contact Diagnoses Smoking greater than [address] Lung Screening Low dose Senait Pal MD [address] [place] [address] Phone: tel: fax: [facility] MRI and CT Scan [address] [place] [address] Phone: tel: fax: Referral ID Status Reason Start Date Expiration Date Visits Re quested Visits Authorized [id number] Closed 04/01/2022 04/01/2023 1 1 Encounter Details Date Type Department Care Team (Late st Contact Info) Description 04/01/2022 Orders Only [facility] MEDICINE [address] [place] [address] [phone] Senait Pal MD [address] [place], [place] [phone] Smoking greater than 20 pack years (Primary [...] colon documented in this encounter Care Teams Immigration Officer Relationship Specialty Start Date End Date Senait Pal MD [address] [place] [address] PCP - General Family Medicine 02/22/20 Gustabo Fernandez, HarshaD [address] [place] [address] Pharmacist Internal Medicine 07/16/[address] [facility] 09/14/23 documented as of this encounter
--- OUTSIDE RECORDS SUMMARY | 2024-04-22 22:52 | XMS_ITS | Clinical Summary ---
Demographics Address [address] [place] [address] [address] [place] [address] Home Phone Preferred Language es Marital Status Unknown Gnosticism Affiliation Unknown Race White Ethnic Group Unknown Author Organization [facility] Address [address] [place] [address] Phone Care Team Providers Care Preschool Adviser Name Role Phone Senait Pal MD Primary Care Provider [phone] Allergies Active Allergy Reactions Criticality Noted Date [...] complete this topic Insurance ([id number]) MARYELLEN SPENCER [id number] [facility] ([id number]) MARYELLEN SPENCER [id number] Care Teams Preschool Adviser Relationship Specialty Start Date End Date Senait Pal MD PCP - General 03/28/20
--- OUTSIDE RECORDS SUMMARY | 2024-04-22 22:52 | XMS_ITS | Encounter Summary ---
Author Organization [employer] Address [address]t [place] [address] Care Team Providers Care Die Set Up Worker Name Role Phone Senait Pal MD Primary Care Provider [phone] Gustabo Fernandez PharmD Unavailable [phone] Reason for Referral * Imaging (Urgent) - Closed Specialty Diagnoses / Procedures Referred By Contac t Referred To Contact Radiology Diagnoses Open wound of right great toe, initial encounter Procedures MRI FOOT RIGHT W WO CONTRAST Senait Pal MD 230 [place] [address] Phone: tel: fax: [address] Phone: tel: fax: Referral ID Status Reason Start Date Expiration Date Visits Re quested Visits Authorized [id number] Closed 09/16/2023 09/15/2024 1 1 Encounter Details Date Type Department Care Team (Late st Contact Info) Description 09/16/2023 Orders Only [facility] MEDICINE 230 [place], [place] [phone] Senait Pal MD [address] [place], [place] [phone] Open wound of right great toe, initial [...] t he electric, gas, oil or water [employer] threatened to shut off services in your [...] documented as of this encounter Care Teams Die Set Up Worker Relationship Specialty Start Date End Date Senait Pal MD [address] [place] [address] PCP - General Family Medicine 02/22/20 Gustabo Fernandez, HarshaD [address] [place] [address] Pharmacist Internal Medicine 07/16/22 [facility] 09/14/23 documented as of this encounter
--- OUTSIDE RECORDS SUMMARY | 2024-04-22 22:52 | XMS_ITS | Encounter Summary ---
Author Organization [employer] Address [address] 7[address] [place] [address] Care Team Providers Care Invoicing Specialist Name Role Phone Senait Pal MD Primary Care Provider [phone] Gustabo Fernandez PharmD Unavailable [phone] Reason for Visit * Reason Onset Date Comments Forms/questionnaires 12/20/2022 Encounter Details Date Type Department Care Team ([facility] st Contact Info) Description 12/20/2022 Telephone [facility]INE 230 [place] [address] Senait Pal MD [address] [place] [address] Forms/questionnaires Social History Tobacco Use Types Packs/Day [...] encounter Miscellaneous Notes * Telephone Encounter - Denny Esquivel - 12/20/2022 11:42 AM EDT Tc from pt stating [employer] sent forms Via e-mail directly to PCP . Pt spoke with HIM and was advised they did not receive any forms, to contact PCP office. Please contact at [phone] Polish documented in this encounter Plan of Treatment [...] documented as of this encounter Care Teams Invoicing Specialist Relationship Specialty Start Date End Date Senait Pal MD [address] [place] [address] PCP - General Family Medicine 02/22/20 Gustabo Fernandez, PharmD [address] [place] [address] Pharmacist Internal Medicine 07/16/22 [facility] 09/14/23 documented as of this encounter
--- OUTSIDE RECORDS SUMMARY | 2024-04-22 22:52 | XMS_ITS | Encounter Summary ---
Author Organization [employer] Address [address] [place] [address] Care Team Providers Care Cylinder Dyer Name Role Phone Senait Pal MD Primary Care Provider [phone] Gustabo Fernandez PharmD Unavailable [phone] Reason for Visit * Reason Comments Med Refill Encounter Details Date Type Department Care Team ([facility] st Contact Info) Description 03/23/2024 Refill [facility] MEDICINE 230 [place], [place] [phone] Senait Pal MD 230 [place], [place] [phone] Social History Tobacco Use Types Packs/Day Years [...] your housing situation today? I have marion vásuqez 07/23/[address] you li [...] documented as of this encounter Care Teams Cylinder Dyer Relationship Specialty Start Date End Date Senait Pal MD [address] [place] [address] PCP - General Family Medicine 02/22/20 Gustabo Fernandez, HarshaD [address] [place] [phone] Pharmacist Internal Medicine 07/16/22 [facility] 09/14/23 documented as of this encounter
--- OUTSIDE RECORDS SUMMARY | 2024-04-22 22:52 | XMS_ITS | Encounter Summary ---
Demographics Address [address] [place] [address] Mobile Phone Home Phone Email Address Preferred Language en Marital Status Single Anabaptism Affiliation Unknown Race Other Race Ethnic Group or Author Organization [employer] Address [address] [place] [address] Care Team Providers Care Electronics Assembler And Tester Name Role Phone Senait Pal MD Primary Care Provider [phone] Gustabo Fernandez PharmD Unavailable [phone] Encounter Details Date Type Department Care Team (Late st Contact Info) Description 12/31/2023 Orders Only [facility] External Provider, [facility] Social History Tobacco Use Types Packs/Day Years [...] Diagnosis Comments IR CVC REMOV TUNNEL WO PRT/WASTEWATER TREATMENT PLANT ATTENDANT Routine 12/31/2023 1:00 PM EDT documented in this encounter Results * IR CVC REMOV TUNNEL WO PRT/PM (12/31/2023 1:00 PM EDT) Anatomical Region Laterality Modality X-Ray Angiograph y 12/31/2023 1:00 PM EDT Narrative 03/27/2024 3:17 PM EST ? [facility] ?[address] ?[place] [address] ?Interventional Radiology Rpt ? Signed ? Patient: Ricky So,Iris N ?MR#: ?? [id number] ? : 1955 ?Acct:[id number] ? Age/Sex: 68 / F ?ADM Date: 10/15/24 ? Loc: HO.RADIR ? Attending Dr: AMY LIU MD ? Ordering Physician: Amy Liu MD ?? Date of Service: 12/31/23 ?? Procedure(s): IR cvc remov tunnel wo prt/channel marketing program manager ?? Accession Number(s): [id number] ? cc: Amy Liu MD ? Lund [...] complications. ? IR/IR cvc remov tunnel wo prt/channel marketing program manager ?? Impression: Lund removal. ? This procedure [...] DD/ 1300 ? TD/TT: 12/31/23 1352 ? Family Coach: ? Procedure Note Lizbeth, Image - 03/27/2024 [place] [address] Interventional Radiology Rpt Signed Patient: Sarah Jones [facility]#: [id number] : 5Acct:[id number] Age/Sex: 68 / FADM Date: 12/31/23 Loc: CLY[facility] Attending Dr: AMY LIU MD Ordering Physician: Amy Liu MD Date of Service: 12/31/23 Procedure(s): IR cvc remov tunnel wo prt/channel marketing program manager Accession Number(s): [id number] cc: Amy Liu MD Lund removal Patient [...] immediate complications. IR/IR cvc remov tunnel wo prt/channel marketing program manager Impression: Lund removal. This procedure was performed by Noe Mason PA-C and supervised by Dr. Penn Electronically signed by: Fitz Penn MD 03/27/2024 03:15 PM EST RP Workstation: [id number] Dictated By: Noe Mason Signed By: <Electronically signed by Noe Mason in OV> 03/27/24 1515 <Electronically signed by Fitz Penn MD in OV> 03/27/24 1517 DD/ 1300 TD/TT: 12/31/23 1352 Family Coach: [facility] External Provider IMG IR PROCEDURES Final Result documented in this encounter Visit Diagnoses Not on filedocumented in this encounter Additional Health Concerns Assessment Noted Time PHQ-9 Depression Total Score: 7 11/01/19 23 11:04 AM EDT documented as of this encounter Care Teams Electronics Assembler And Tester Relationship Specialty Start Date End Date Senait Pal MD [address] [place] [address] PCP - General Family Medicine 02/22/20 Gustabo Fernandez, Agnes [address] [place] [address] Pharmacist Internal Medicine 07/16/22 [facility] 09/14/23 documented as of this encounter
--- OUTSIDE RECORDS SUMMARY | 2024-04-22 22:52 | XMS_ITS | Encounter Summary ---
Author Organization [employer] Address [address] [place] [address] Care Team Providers Care Blacksmith Hammer Operator Name Role Phone Senait Pal MD Primary Care Provider Gustabo Fernandez PharmD Unavailable [phone] Encounter Details Date Type Department Care Team ([facility] st Contact Info) Description 10/30/2023 Orders Only [facility] [address] [place], [place] [phone] Senait Pal MD [address] [place], [place] [phone] Social History Tobacco Use Types Packs/Day Years [...] documented as of this encounter Care Teams Blacksmith Hammer Operator Relationship Specialty Start Date End Date Senait Pal MD [address] [place] [address] PCP - General Family Medicine 02/22/20 Gustabo Fernandez PharmD [address] [place] [address] Pharmacist Internal Medicine 07/16/22 [facility] 09/14/23 documented as of this encounter
--- OUTSIDE RECORDS SUMMARY | 2024-04-22 22:52 | XMS_ITS | Encounter Summary ---
Author Organization [employer] Address [address] [place] [address] Care Team Providers Care Nursing Center Tutor Name Role Phone Senait Pal MD Primary Care Provider [phone] Gustabo Fernandez PharmD Unavailable [phone] Reason for Visit * Reason Comments Med Refill Encounter Details Date Type Department Care Team ([facility] st Contact Info) Description 06/09/2023 Refill [facility]INE [address] [place], [place] [phone] Senait Pal MD [address] [place], [place] [phone] Moderate episode of recurrent major depressive disorder [...] documented as of this encounter Care Teams Nursing Center Tutor Relationship Specialty Start Date End Date Senait Pal MD [address] [place] [address] PCP - General Family Medicine 02/22/20 Gustabo Fernandez, PharmD [address] [place] [address] Pharmacist Internal Medicine 07/16/22 [facility] 09/14/23 documented as of this encounter
--- OUTSIDE RECORDS SUMMARY | 2024-04-22 22:52 | XMS_ITS | Encounter Summary ---
Author Organization [employer] Address [address] [place] [address] Care Team Providers Care Bag Maker Name Role Phone Senait Pal MD Primary Care Provider [phone] Gustabo Fernandez PharmD Unavailable [phone] Reason for Visit * Reason Onset Date Comments Other 11/21/2022 Results 11/21/2022 Encounter Details Date Type Department Care Team (Late st Contact Info) Description 11/21/2022 Telephone [facility] MEDICINE [address] [place] [address] Senait Pal MD [address] [place], [place] [phone] Other; Results Social History Tobacco Use Types [...] 2:14 PM EDT Tc from Yuliya at [facility] requesting on behalf of patient a new script for a glucose meter, current one doesn't work. Patient is also requesting results from kidney biopsy. Please call [phone]. documented in this encounter Plan of Treatment [...] documented as of this encounter Care Teams Bag Maker Relationship Specialty Start Date End Date Senait Pal MD [address] [place] [address] PCP - General Family Medicine 02/22/20 Gustabo Fernandez, PharmD [address] [place] [address] Pharmacist Internal Medicine 07/16/22 [facility] 09/14/23 documented as of this encounter
--- OUTSIDE RECORDS SUMMARY | 2024-04-22 22:52 | XMS_ITS | Encounter Summary ---
Author Organization [employer] Address [address] [place] [address] Care Team Providers Care Security Installation Technician Name Role Phone Senait Pal MD Primary Care Provider [phone] Gustabo Fernandez PharmD Unavailable [phone] Encounter Details Date Type Department Care Team ([facility] st Contact Info) Description 04/17/2024 Orders Only [facility] MED[facility]INE [address] [place], [place] [phone] Senait Pal MD [address] [place], [place] [phone] Dark stools (Primary Dx); Diarrhea, unspecified type; Postoperative hypothyroidism Social History Tobacco Use Types Packs/Day Years [...] Frequency of Binge Drinking Not on file 080 08/2023 Score 0 10/22/2023 Depression Answer Date [...] Type Priority Associated Diagnoses Orde r Schedule CBC auto differential Lab Routine Dark stools Expected: 04/17/2024 (Approximate), Expires: 04/17/2025 TSH with Reflex to Free T4 Lab Routine Diarrhea, unspecified type Postoperative hypothyroidism Expected: 04/17/2024 (Approximate), Expires: 04/17/2025 OCCULT BLOOD, DIAGNOSTIC Lab Routine Dark stools Expected: 04/17/2024 (Approximate), Expires: 04/17/2025 CDiff Gene PCR Lab Routine Diarrhea, unspecified type Expected: 04/17/2024 (Approximate), Expires: 04/17/2025 Stool - Gastrointestinal panel Microbiology Routine Diarrhea, unspecified type Expected: 04/17/2024 (Approximate), Expires: 04/17/2025 documented as of this encounter Goals Goal Patient Goal Type Associated Problems Recent Progress Patient-Stated? Author Blood Pressure < 140/90 Blood Pressure 128/69( 024 9:18 AM EDT) No Gustabo Fernandez, PharmD Quit using tobacco (cigarettes, smokeless, etc) Tobacco Use No Gustabo Fernandez, PharmD documented as of this encounter Visit Diagnoses Diagnosis Dark stools- Primary Nonspecific abnormal finding in stool contents Diarrhea, unspecified type Postoperative hypothyroidism Postsurgical hypothyroidism documented in this encounter Additional Health Concerns Assessment Noted Time PHQ-9 Depression Total Score: 7 11/01/19 23 11:04 AM EDT documented as of this encounter Care Teams Security Installation Technician Relationship Specialty Start Date End Date Senait Pal MD [address] [place] [address] PCP - General Family Medicine 02/22/20 Gustabo Fernandez PharmD [address] [place] [address] Pharmacist Internal Medicine 07/16/22 [facility] 09/14/23 documented as of this encounter
--- NOTE | 2024-04-22 22:53 | ED.DIZZY ---
HPI - Dizziness General Chief Complaint: Dizziness Stated Complaint: dizzy/light headed Time Seen by Provider: 04/22/24 22:43 Source: patient and family Mode of arrival: ambulatory Limitations: no limitations History of Present Illness ED Provider: HPI Narrative: Patient is 68 years old with history of end-stage renal disease on peritoneal dialysis since 09/08, hypothyroidism, thyroid cancer status post thyroidectomy, HFrEF, hypoparathyroidism, hypotension, hyperlipidemia and COPD and diabetes mellitus with history of hypercalcemia and severe anemia comes here for feeling dizzy for last 2 days b, feel dizzy especially when she stands up feels lightheaded also complaining of dark stools for last 1 week no abdominal pain no history of ulcer patient has had prior colonoscopy and endoscopy which was negative denies any chest pain or palpitation Related Data Home Medications ?Medication ?Instructions ?Recorded ?Confirmed ferrous sulfate 325 mg (65 mg 1 tab PO QAM 05/17/20 04/14/24 iron) tablet blood sugar diagnostic (FreeStyle #10 ea 05/30/21 04/14/24 Lite Strips) lancets 33 gauge (TRUEplus Lancets) #100 ea 05/30/21 04/14/24 cholecalciferol (vitamin D3) 50 50 mcg PO DAILY 04/24/22 04/14/24 mcg (2,000 unit) tablet linagliptin 5 mg tablet (Tradjenta) 5 mg PO DAILY@1200 04/24/22 04/14/24 pen needle, diabetic 32 gauge x #50 ea 05/03/22 04/14/24 5/32 (Pentips Pen Needle) aspirin 81 mg tablet,delayed 81 mg PO DAILY@1200 06/20/22 04/14/24 release atorvastatin 80 mg tablet 80 mg PO BEDTIME 06/20/22 04/14/24 montelukast 10 mg tablet 10 mg PO BEDTIME 06/20/22 04/14/24 levothyroxine 150 mcg tablet 150 mcg PO DAILY 03/21/23 04/14/24 budesonide-formoterol HFA 160 2 puff inhalation BID 07/23/23 04/14/24 mcg-4.5 mcg/actuation aerosol inhaler (Symbicort) cetirizine 5 mg tablet 5 mg PO DAILY PRN allergies 07/23/23 04/14/24 umeclidinium 62.5 mcg/actuation 1 inh inhalation QAM 07/23/23 04/14/24 blister powder for inhalation (Incruse Ellipta) insulin aspart U-100 100 unit/mL subcut 10/14/23 04/14/24 (3 mL) subcutaneous pen (Novolog FlexPen U-100 Insulin aspart) amlodipine 2.5 mg tablet 2.5 mg PO DAILY 01/07/24 04/14/24 clopidogrel 75 mg tablet 75 mg PO DAILY 01/07/24 04/14/24 potassium chloride 8 mEq 8 meq PO DAILY 01/28/24 04/14/24 tablet,extended release mirtazapine 7.5 mg tablet 7.5 mg PO DAILY 04/14/24 04/14/24 rivaroxaban 2.5 mg tablet (Xarelto) 2.5 mg PO DAILY 04/14/24 04/14/24 Previous Rx's ?Medication ?Instructions ?Recorded carvedilol 12.5 mg tablet 12.5 mg PO BID #180 tabs 07/27/23 calcium acetate 667 mg tablet 667 mg PO TID #360 tabs 10/14/23 sertraline 25 mg tablet 25 mg PO DAILY #90 tabs 02/03/24 furosemide 40 mg tablet 40 mg PO DAILY #30 tabs 04/14/24 Allergies Allergy/AdvReac Type Severity Reaction Status Date / Time ALLYSSA Inhibitors Allergy Mild COUGH Verified 04/22/24 21:58 [ALLYSSA INHIBITORS] cilostazol [CILOSTAZOL] Allergy Mild COUGH Verified 04/22/24 21:58 Review of Systems Review of Systems: Yes all other systems are reviewed and are negative PMFSH Past Medical History Medical History Osteomyelitis CHF exacerbation Anemia CKD (chronic kidney disease) stage 5, GFR less than 15 ml/min Hypocalcemia Nicotine dependence, cigarettes, uncomplicated Atherosclerotic cardiovascular disease Thyroid cancer (~2008) 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) Hypothyroidism associated with surgical procedure (~2008) Uncontrolled type 2 diabetes mellitus with hyperglycemia (~1986) Pneumonitis ARDS (adult respiratory distress syndrome) Neuropathy Asthma-COPD overlap syndrome Anemia HTN (hypertension) Hypercholesteremia Surgical History History of thyroidectomy History of back surgery History of 2 sections History of angioplasty History of amputation of left great toe Family History Family History Mother Hypertension Diabetes Father AA (alcohol abuse) Social History Social History Household Members: Family Housing: Apartment Do you presently have 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 or other home services: Yes (DIRECTOR OF SOCIAL SERVICES) Alcohol intake: never 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 Tobacco Use Status: Former Tobacco user Years Smoked: 45 Smoked in Last 30 Days: No Use of substances other than those prescribed or required for medical reasons: No Advance Directives: Yes Advance Directives Information Provided: Yes Advance Directives on File: Yes Advance Directives Date on File: 09/13/20 service: No Current occupational status: disabled Physical Exam Vital Signs: Vital Signs: Last Vital Signs Temp 97.9 F 04/23/24 05:28 Pulse 66 04/23/24 05:28 Resp 12 04/23/24 05:28 BP 117/55 L 04/23/24 05:28 Pulse Ox 100 04/23/24 05:28 O2 Del Method Room Air 04/23/24 05:28 BMI result Body Mass Index 21.6 Appearance: Alert. Oriented X3. No acute distress. Eyes: Severe pallor ENT: Pharynx normal. Oral Mucosa moist Neck: Normal inspection. Neck supple. CVS: Normal heart rate and rhythm. Pulses normal. Respiratory: No respiratory distress. Equal air entry bilateral, no wheezing/rales/rhonchi Abdomen: Soft and nontender. Bowel sounds are present, no mass palpable, no CVA tenderness peritoneal dialysis catheter in place rectal: Brown stool occult negative Skin: Skin warm and dry. Normal skin color. Normal skin turgor. Extremities: No lower extremity edema. No calf tenderness Neuro: Oriented X 3. No motor deficit. No sensory deficit.No cerebellar signs , cranial nerves II-XII intact Medications Administered Discontinued Medications Generic Name Dose Route Start Last Admin Trade Name Freq PRN Reason Stop Dose Admin Famotidine 20 mg 04/22/24 23:49 04/23/24 00:17 Famotidine 20 Mg Tablet PO 04/22/24 23:50 20 mg ONCE ONE Administration Calcium Gluconate 2 gm in 100 mls @ 50 mls/hr 04/22/24 23:05 04/22/24 23:22 Calcium Gluconate IV 04/23/24 01:04 50 mls/hr ONCE ONE Administration Medical Decision Making Medical Decision Making [facility] Narrative: Patient with end-stage renal disease with severe anemia with increased weakness and dizziness with black stools noted to have severe anemia with hemoglobin of 5.3 and calcium of 4.2 with albumin of 1.8 will replace calcium IV and p.o. will give blood transfusion case discussed with lead generation representative will do not admit patient with peritoneal dialysis here but can be watch in ER if needed Will give blood transfusion in the ER plan to discharge after transfusion Patient's guaiac is positive but stool was brown color Patient has received 2 units of PRBC feeling much better discharge patient home Differential Diagnosis Differential Diagnoses: The differential diagnosis associated with the presentation includes Consult Healthcare Provider Management of the patient was discussed with: Hospital Orderly Paraprofessional Aide Teacher Lab Data [facility] Lab Attestation statement: I reviewed the patient's lab results. 04/22/24 22:19 04/22/24 22:19 Labs: Lab Results 04/22/24 04/22/24 04/22/24 Range/Units 22:19 23:06 23:26 WBC 7.1 (4.8-10.8) X10*3/uL RBC 1.81 L D (4.20-5.50) X10*6/uL Hgb 5.3 L* D (12.0-16.0) g/dl Hct 16.9 L* D (37.0-47.0) % MCV 93.4 (80.0-98.0) fL MCH 29.3 (27.0-33.0) pg MCHC 31.4 (31.0-35.0) g/dl RDW 14.4 (11.0-16.0) % Plt Count 182 D (160-400) X10*3/uL MPV 9.3 L (9.4-12.3) fL Immature Gran % (Auto) 0.3 (0.0-0.4) % Neut % (Auto) 69.4 (45-73) % Lymph % (Auto) 20.7 (20-40) % [place] % (Auto) 7.9 (2-11) % Eos % (Auto) 1.0 (0-4) % Baso % (Auto) 0.7 (0-2) % Lymph # (Auto) 1.5 (1.2-4.9) X10*3/uL [place] # (Auto) 0.6 (0.1-1.2) X10*3/uL Eos # (Auto) 0.1 (0.0-0.4) X10*3/uL Baso # (Auto) 0.1 (0.0-0.2) X10*3/uL Abs Immat Gran (auto) 0.02 (0.00-0.03) X10*3/uL Absolute Neuts (auto) 4.9 (2.0-8.3) x10*3/uL Absolute Nucleated RBC 0.000 (0.0-0.012) X10*3/uL Nucleated RBC % (auto) 0.0 (0.0-0.2) /100WBC Sodium 138 (135-145) mmol/L Potassium 3.5 (3.3-5.1) mmol/L Chloride 105 (96-108) mmol/L Carbon Dioxide 25 (22-29) mmol/L Anion Gap 12 (12-20) BUN 37 H (9-16) mg/dL Creatinine 3.04 H (0.5-1.4) mg/dL Estim Creat Clear Calc 15.6 Estimated GFR 15 Random Glucose 213 H (60-115) mg/dL Calcium 4.2 L* D (8.4-10.2) mg/dL Phosphorus 5.0 H (2.7-4.5) mg/dL Magnesium 1.6 (1.6-2.6) mg/dL Total Bilirubin 0.2 (0.0-1.0) mg/dL AST 33 H (5-31) U/L ALT 8 (0-31) U/L Alkaline Phosphatase 69 (39-117) U/L Troponin I High Sens 12.7 D (<3.5-17.0) ng/L Total Protein 4.9 L (6.5-8.0) g/dL Albumin 1.8 L (3.5-5.0) g/dL Stool Occult Blood POSITIVE (NEGATIVE) Influenza Type A (PCR) NEGATIVE (Negative) Influenza Type B (PCR) NEGATIVE (Negative) RSV RNA Qual (PCR) NEGATIVE (Negative) SARS-CoV-2 RNA (RT-PCR) NEGATIVE (Negative) Blood Type A Negative Antibody Screen NEGATIVE Crossmatch See Detail Independent Interpretation I performed an independent interpretation of an: EKG Interpretation: Normal sinus rhythm heart rate 69 beats per minute normal axis prolonged QT interval off 570 millisecond no acute STT wave changes no acute ischemia Discharge Plan Discharge Clinical Impression: CKD (chronic kidney disease), Hypocalcemia due to chronic kidney disease Anemia in chronic kidney disease (CKD) Qualifiers: Chronic kidney disease stage: stage 5, not on chronic dialysis Qualified Code(s): N18.5 - Chronic kidney disease, stage 5 Patient Disposition: Home, Self-Care Instructions: Chronic Kidney Disease (ED), Hypocalcemia (ED), Anemia (ED) Additional Instructions: Continue medications and follow up with your lead generation representative Prescriptions: No Action sertraline 25 mg tablet 25 mg PO DAILY Qty: 90 0RF ferrous sulfate 325 mg (65 mg iron) tablet 1 tab PO QAM aspirin 81 mg tablet,delayed release (DR/EC) 81 mg PO DAILY@1200 atorvastatin 80 mg tablet 80 mg PO BEDTIME montelukast 10 mg tablet 10 mg PO BEDTIME cetirizine 5 mg tablet 5 mg PO DAILY PRN (Reason: allergies) budesonide-formoterol [Symbicort] 160-4.5 mcg/actuation HFA aerosol inhaler 2 puff INHALATION BID Incruse Ellipta 62.5 mcg/actuation blister with device 1 inh INHALATION QAM carvedilol 12.5 mg Tablet 12.5 mg PO BID Qty: 180 0RF Protocol: Hold for SBP/HR < HOLD for SBP < : 90 HOLD for HR < : 60 (DME) lancets [TRUEplus Lancets] 33 gauge misc See Rx Instructions topical .MEDSUPPLY Qty: 100 Rx Instructions: As directed (DME) FreeStyle Lite Strips Strip See Rx Instructions Not Applicable .MEDSUPPLY Qty: 10 Rx Instructions: As directed (DME) pen needle, diabetic [Pentips Pen Needle] 32 gauge x 5/32 needle See Rx Instructions .ROUTE QID Qty: 50 Rx Instructions: As directed once a day Tradjenta 5 mg tablet 5 mg PO DAILY@1200 cholecalciferol (vitamin D3) 50 mcg (2,000 unit) tablet 50 mcg PO DAILY insulin aspart U-100 [Novolog FlexPen U-100 Insulin] 100 unit/mL (3 mL) insulin pen subcut calcium acetate 667 mg tablet 667 mg PO TID Qty: 360 0RF Rx Instructions: ! tab with each meal potassium chloride 8 mEq tablet extended release 8 meq PO DAILY mirtazapine 7.5 mg tablet 7.5 mg PO DAILY Xarelto 2.5 mg tablet 2.5 mg PO DAILY furosemide 40 mg tablet 40 mg PO DAILY Qty: 30 2RF levothyroxine 150 mcg tablet 150 mcg PO DAILY amlodipine 2.5 mg tablet 2.5 mg PO DAILY clopidogrel 75 mg tablet 75 mg PO DAILY Print Language: [place] Citizen
[2024-04-22 22:57] LABS: Hematocrit 16.9 % (37.0-47.0); Hemoglobin 5.3 g/dl (12.0-16.0)
[2024-04-22 23:02] LABS: Influenza A PCR NEGATIVE (Negative); Influenza B PCR NEGATIVE (Negative); Resp Syncy Virus RNA Qual PCR NEGATIVE (Negative); SARS COV2 PCR INHOUSE NEGATIVE (Negative)
[2024-04-22 23:21] LABS: Magnesium 1.6 mg/dL (1.6-2.6)
[2024-04-22 23:22] VITALS: BP 97/50; PULSE 64; RESP 12; TEMP 36.4; O2SAT 100
[2024-04-22] MEDS: Calcium Gluconate/NaCl,Iso-Osm 2 GM/100 ML PLAST..BAG IV (23:22)
[2024-04-22 23:30] LABS: OBS Int Ctl Valid YES; OBS1 POSITIVE (NEGATIVE)
--- NOTE | 2024-04-23 00:07 | PC.NURSE ---
bilateral 20g IVs to both ACs
[2024-04-23] MEDS: Famotidine 20 MG TABLET PO (00:17)
[2024-04-23 00:20] VITALS: BP 106/58; PULSE 62; RESP 16; TEMP 36.4
[2024-04-23 00:37] VITALS: BP 107/52; PULSE 61; RESP 12; TEMP 36.4
[2024-04-23 05:28] VITALS: BP 117/55; PULSE 66; RESP 12; TEMP 36.6; O2SAT 100
[2024-04-23 07:15] VITALS: BP 133/66; PULSE 67; RESP 16; TEMP 36.5; O2SAT 100
--- NOTE | 2024-04-23 07:20 | PC.NURSE ---
blood tx stopped at 0713, VSS, resp even and unlabored. please see paper documentation
[2024-04-23 07:29] VITALS: BP 133/66; PULSE 67; RESP 16; TEMP 36.5; O2SAT 100
== END 2024-04-23 07:30 | disposition home or self-care (01) ==
PROVIDERS: Emergency Provider Internal Medicine
DX: E83.51 Hypocalcemia (principal); E11.22 Type 2 diabetes mellitus with diabetic chronic kidney disease; I13.2 Hypertensive heart and chronic kidney disease with heart failure and with stage 5 chronic kidney disease, or end stage renal disease; I50.9 Heart failure, unspecified; N18.6 End stage renal disease; Z99.2 Dependence on renal dialysis; R42 Dizziness and giddiness; Z79.899 Other long term (current) drug therapy; Z03.818 Encounter for observation for suspected exposure to other biological agents ruled out
CPT/HCPCS: 0241U; 36430; 80053; 82272; 83735; 84100; 84484; 85025; 86850; 86900; 86901; 86923; 93005; 96374; 99285; J0613; P9016

== ENCOUNTER → 2024-04-22 22:09 | Outpatient (BNV) | payer OTHER, SELFPAY | PROVIDERS: Emergency Provider Internal Medicine; Visit Provider Internal Medicine Cardiovascular Disease | DX: R94.31 Abnormal electrocardiogram [ECG] [EKG] (principal); R42 Dizziness and giddiness | CPT/HCPCS: 93010 ==

== ENCOUNTER 2024-05-19 11:23 | Outpatient (AMB) | payer OTHER, SELFPAY ==
[2024-05-19 11:29] VITALS: BP 120/60
--- NOTE | 2024-05-19 11:29 | HO.NEPHOV ---
Vital Signs 05/19/24 11:29 Weight 133 lb BP 120/60 Blood Pressure Location Rt brachial Position Sitting Intake Visit Reasons: CKD/ Conf Gettering Filament Machine Operator Required: No Accompanied by: Grand Child Allergies ALLYSSA Inhibitors [ALLYSSA INHIBITORS] Allergy (Mild, Verified 05/19/24 11:29) COUGH cilostazol [CILOSTAZOL] Allergy (Mild, Verified 05/19/24 11:29) COUGH PFSH Medical History Osteomyelitis CHF exacerbation Anemia CKD (chronic kidney disease) stage 5, GFR less than 15 ml/min Hypocalcemia Nicotine dependence, cigarettes, uncomplicated Atherosclerotic cardiovascular disease Thyroid cancer (~2008) 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) Hypothyroidism associated with surgical procedure (~2008) Uncontrolled type 2 diabetes mellitus with hyperglycemia (~1986) Pneumonitis ARDS (adult respiratory distress syndrome) Neuropathy Asthma-COPD overlap syndrome Anemia HTN (hypertension) Hypercholesteremia Surgical History History of thyroidectomy History of back surgery History of 2 sections History of angioplasty History of amputation of left great toe Family History Mother Hypertension Diabetes Father AA (alcohol abuse) Social History Household Members: Family Housing: Apartment Do you presently have 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 or other home services: Yes (MANAGER ETL) Alcohol intake: never 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 Tobacco Use Status: Former Tobacco user Years Smoked: 45 Advance Directives Date on File: 09/13/20 service: No Current occupational status: disabled Physical Exam Vital Signs: Last Vital Signs BP 120/60 05/19/24 11:29 Results Reviewed Nephrology Results: Hgb 5.3 g/dl (12.0-16.0) L* 04/22/24 WBC 7.1 X10*3/uL (4.8-10.8) 04/22/24 Plt Count 182 X10*3/uL (160-400) 04/22/24 Sodium 138 mmol/L (135-145) 04/22/24 Potassium 3.5 mmol/L (3.3-5.1) 04/22/24 Chloride 105 mmol/L (96-108) 04/22/24 Carbon Dioxide 25 mmol/L (22-29) 04/22/24 BUN 37 mg/dL (9-16) H 04/22/24 Creatinine 3.04 mg/dL (0.5-1.4) H 04/22/24 Calcium 4.2 mg/dL (8.4-10.2) L* 04/22/24 Phosphorus 5.0 mg/dL (2.7-4.5) H 04/22/24 Assessment & Plan Assessment & Plan (1) ESRD needing dialysis: Code(s): N18.6 - End stage renal disease; Z99.2 - Dependence on renal dialysis Category: Medical Plan See dialysis note Scribe Plan - Not visible on output: [place] [id number] Coding Level of Care Code Global (93201) Diagnoses ESRD needing dialysis N18.6; Z99.2
--- OUTSIDE RECORDS SUMMARY | 2024-05-19 14:22 | XMS_ITS | Encounter Summary ---
Author Organization [employer] Address [address] [place] [address] Care Team Providers Care Repatcher Name Role Phone Senait Pal MD Primary Care Provider [phone] Gustabo Fernandez PharmD Unavailable [phone] Reason for Visit * Reason Onset Date Comments Other 11/21/2022 Results 11/21/2022 Encounter Details Date Type Department Care Team (Late st Contact Info) Description 11/21/2022 Telephone [facility] [address] [place] [address] Senait Pal MD [address] [place], [place] [phone] Other; Results Social History Tobacco Use Types [...] 2:14 PM EDT Tc from Yuliya at [facility] requesting on behalf of patient a new script for a glucose meter, current one doesn't work. Patient is also requesting results from kidney biopsy. Please call [phone]. documented in this encounter Plan of Treatment [...] documented as of this encounter Care Teams Repatcher Relationship Specialty Start Date End Date Senait Pal MD [address] [place] [address] PCP - General Family Medicine 02/22/20 Gustabo Fernandez, PharmD [address] [place] [address] Pharmacist Internal Medicine 07/16/22 [facility] 09/14/23 documented as of this encounter
--- OUTSIDE RECORDS SUMMARY | 2024-05-19 14:22 | XMS_ITS | Encounter Summary ---
Author Organization [employer] Address [address] [place] [address] Care Team Providers Care Creative Services Manager Name Role Phone Senait Pal MD Primary Care Provider [phone] Gustabo Fernandez PharmD Unavailable [phone] Encounter Details Date Type Department Care Team ([facility] st Contact Info) Description 08/09/2022 Abstract [facility] [address] [place] [address] Senait Pal MD [address] [place] [address] Social History Tobacco Use Types Packs/Day Years [...] on filedocumented in this encounter Care Teams Creative Services Manager Relationship Specialty Start Date End Date Senait Pal MD [address] [place] [address] PCP - General Family Medicine 02/22/20 Gustabo Fernandez, HarshaD [address] [place] [address] Pharmacist Internal Medicine 07/16/22 [facility] 09/14/23 documented as of this encounter
--- OUTSIDE RECORDS SUMMARY | 2024-05-19 14:22 | XMS_ITS | Encounter Summary ---
Author Organization [employer] Address [address] [place] [address] Care Team Providers Care Asset Protection Agent Name Role Phone Senait Pal MD Primary Care Provider [phone] Gustabo Fernandez PharmD Unavailable [phone] Encounter Details Date Type Department Care Team ([facility] st Contact Info) Description 11/01/2022 Abstract [facility] MED[facility]INE [address] [place], [place] [phone] Senait Pal MD [address] [place] [address] Social History Tobacco Use Types Packs/Day Years [...] Eye Exam (08/04/2022) Eye Exam Normal Normal [facility] Unassigned Pcp HEALTH MAINTENANCE Final Result documented in this encounter Visit Diagnoses Not on filedocumented in this encounter Additional Health Concerns Assessment Noted Time PHQ-9 Depression Total Score: 7 11/01/19 23 11:04 AM EDT documented as of this encounter Care Teams Asset Protection Agent Relationship Specialty Start Date End Date Senait Pal MD [address] [place] [address] PCP - General Family Medicine 02/22/20 Gustabo Fernandez, Agnes [address] [place] [address] Pharmacist Internal Medicine 07/16/22 [facility] 09/14/23 documented as of this encounter
--- OUTSIDE RECORDS SUMMARY | 2024-05-19 14:22 | XMS_ITS | Encounter Summary ---
Author Organization [employer] Address [address] [place] [address] Care Team Providers Care Finished Cigar Maker Name Role Phone Senait Pal MD Primary Care Provider [phone] Gustabo Fernandez PharmD Unavailable Encounter Details Date Type Department Care Team ([facility] st Contact Info) Description 11/12/2022 Orders Only [facility] MEDICINE [address] [place], [place] [phone] Senait Pal MD [address] [place], [place] [phone] Social History Tobacco Use Types Packs/Day Years [...] documented as of this encounter Care Teams Finished Cigar Maker Relationship Specialty Start Date End Date Senait Pal MD [address] [place] [address] PCP - General Family Medicine 02/22/20 Gustabo Fernandez, HarshaD [address] [place] [address] Pharmacist Internal Medicine 07/16/[address] [facility] 09/14/23 documented as of this encounter
--- OUTSIDE RECORDS SUMMARY | 2024-05-19 14:22 | XMS_ITS | Encounter Summary ---
Author Organization [employer] Address [address] [place] [address] Care Team Providers Care Lead Man Over All Dies In Pattern Shop Name Role Phone Senait Pal MD Primary Care Provider [phone] Gustabo Fernandez PharmD Unavailable [phone] Reason for Visit * Reason Comments Med Refill Encounter Details Date Type Department Care Team (Late st Contact Info) Description 11/12/2022 Refill [facility] [address] [place], [place] [phone] Senait Pal MD [address] [place] [address] Social History Tobacco Use Types Packs/Day Years [...] documented as of this encounter Care Teams Lead Man Over [employer] In Pattern [employer] Relationship Specialty Start Date End Date Senait Pal MD [address] [place] [address] PCP - General Family Medicine 02/22/20 Gustabo Fernandez, PharmD [address] [place] [address] Pharmacist Internal Medicine 07/16/22 [facility] 09/14/23 documented as of this encounter
--- OUTSIDE RECORDS SUMMARY | 2024-05-19 14:22 | XMS_ITS | Encounter Summary ---
Author Organization [employer] Address [address] [place] [address] Care Team Providers Care Net Software Developer Name Role Phone Senait Pal MD Primary Care Provider Gustabo Fernandez PharmD Unavailable [phone] Reason for Visit * Reason Comments Med Refill Encounter Details Date Type Department Care Team ([facility] st Contact Info) Description 06/09/2023 Refill [facility] MED[facility]INE [address] [place], [place] [phone] Senait Pal MD [address] [place], [place] [phone] Moderate episode of recurrent major depressive disorder [...] documented as of this encounter Care Teams Net Software Developer Relationship Specialty Start Date End Date Senait Pal MD [address] [place] [address] PCP - General Family Medicine 02/22/20 Gustabo Fernandez, PharmD [address] [place] [address] Pharmacist Internal Medicine 07/16/22 [facility] 09/14/23 documented as of this encounter
--- OUTSIDE RECORDS SUMMARY | 2024-05-19 14:22 | XMS_ITS | Encounter Summary ---
Author Organization [employer] Address [address] [place] [address] Care Team Providers Care Boring Mill Set Up Operator Vertical Name Role Phone Senait Pal MD Primary Care Provider [phone] Gustabo Fernandez PharmD Unavailable [phone] Reason for Visit * Reason Comments Med Refill Encounter Details Date Type Department Care Team ([facility] st Contact Info) Description 01/31/2023 Refill [facility]INE [address] [place], [place] [phone] Senait Pal MD [address] [place], [place] [phone] Moderate episode of recurrent major depressive disorder [...] documented as of this encounter Care Teams Boring Mill Set Up Operator Vertical Relationship Specialty Start Date End Date Senait Pal MD [address] [place] [address] PCP - General Family Medicine 02/22/20 Gustabo Fernandez, PharmD [address] [place] [address] Pharmacist Internal Medicine 07/16/22 [facility] 09/14/23 documented as of this encounter
--- OUTSIDE RECORDS SUMMARY | 2024-05-19 14:22 | XMS_ITS | Clinical Summary ---
Author Organization [employer] Address [address] [place] [address] Care Team Providers Care Medical Diagnostic Radiographer Name Role Phone Senait Car MD Primary Care Provider [phone] Gustabo Fernandez PharmD Unavailable [phone] Allergies Active Allergy Reactions Criticality Noted Date [...] times daily. 60 tablet Active Continuous Glucose Harbor Pilot (FreeStyle Nata 2 Badger) deviceIndicati ons:Type 2 diabetes mellitus with diabetic peripheral angiopathy without gangrene, with long-term current use of insulin ([facility]),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 chronic dialysis, with long-term current use of insulin ([facility]) Scan sensor every 8 hours 1 each Active Continuous Glucose Sensor (FreeStyle Nata 2 Sensor) miscIndication s:Type 2 diabetes mellitus with diabetic peripheral angiopathy without gangrene, with long-term current use of insulin ([facility]),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 chronic dialysis, with long-term current use of insulin ([facility]) Apply 1 sensor every 14 [...] USING. DO NOT SWALLOW 10.2 g Active TRUEplus Lancets 33G miscIndication s:Type 2 diabetes mellitus with stage 4 chronic kidney disease, with long-term current use of insulin ([facility]) TEST BLOOD SUGAR THREE TIMES DAILY 100 each Active Incruse Ellipta 62.5 MCG/ACT aerosol powder INHALE 1 PUFF BY MOUTH EVERY DAY AT THE SAME TIME IN THE MORNING 30 each Active carvedilol (Coreg) 12.5 MG tablet TAKE 1 TABLET BY MOUTH TWICE DAILY AT NOON AND IN THE EVENING 180 tablet Active Tradjenta 5 MG tabletIndicati ons:Type 2 diabetes mellitus with stage 4 chronic kidney disease, with long-term current use of insulin ([facility]) TAKE 1 TABLET BY MOUTH EVERYDAY AT NOON 30 tablet 1 Active mirtazapine (Remeron) 7.5 MG tablet TAKE 1 TABLET BY MOUTH AT BEDTIME 30 tablet 1 Active carvedilol (Coreg) 12.5 MG tablet TAKE 1 TABLET BY MOUTH TWICE DAILY AT NOON AND IN THE EVENING 180 tablet 024 2024 Discontinued mirtazapine (Remeron) 7.5 MG tablet TAKE 1 TABLET BY MOUTH AT BEDTIME 30 tablet 1 025 2024 Discontinued Tradjenta 5 MG tabletIndicati ons:Type 2 diabetes mellitus with stage 4 chronic kidney disease, with long-term current use of insulin ([facility]) TAKE 1 TABLET BY MOUTH EVERYDAY AT NOON 30 tablet 1 025 2024 Discontinued Active Problems Problem Noted Date [...] - Continue following with Wound Care and slip cover maker Abnormal echocardiogram 09/26/2023 Hospital discharge follow-up 09/26/2023 Hypercholesteremia 09/26/2023 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 09/26/2023 Assessment & Plan (10/23/2023 7:03 PM EDT): - hypocalcemia - continue high-dose calcium replacement prescribed by duplicate maker Metabolic acidosis 09/26/2023 Secondary renal hyperparathyroidism 09/26/2023 [...] vascular specialist and wound care clinic at [facility] - MRI on 09/26/23 showed osteomyelitis - [...] chronic HF in July 2023, hospitalized in [facility] - transthoracic echocardiogram on 07/24/23: Mildly increased [...] monitor fluid balance - following with both duplicate maker and nurse supervisor Weight gain 07/23/2023 Assessment & Plan (07/23/2023 [...] states that she is scheduled for transfusion. Sample Wrapper is also planning to start EPO. Assessment & Plan (04/29/2023 9:41 AM EST): - chronic anemia due to CKD - plan to start erythropoietin with duplicate maker or heamtologist Prolonged Q-T interval on ECG 02/26/2023 Assessment & Plan (10/23/2023 11:54 AM EDT): - QTc > 500 ms - nurse supervisor recommends to discontinue SSRI, and sertraline was discontinued - optimize electrolyte replacement - now on peritoneal dialysis Assessment & Plan (08/25/2023 6:13 PM EDT): - QTc > 500 ms - nurse supervisor recommends to discontinue SSRI, and sertraline was discontinued - pharmacist will review her medications - optimize electrolyte replacement Assessment & Plan (07/26/2023 6:11 AM EDT): - most recent QTc 571 ms - nurse supervisor recommends to discontinue SSRI - pharmacist will review her medications - optimize electrolyte replacement Assessment & Plan (02/26/2023 12:16 PM EST): - most recent QTc 571 ms - nurse supervisor recommends to discontinue SSRI - pharmacist will review her medications - optimize electrolyte replacement Type 2 diabetes mellitus wit h chronic kidney disease on chronic dialysis, with long-term current use of insulin 07/03/2022 Assessment & Plan (10/23/2023 12:29 PM EDT): A1C 6.7% on 10/22/23 - last seen by lean process deployment consultant, Dr. Herndon in Apr 2022. - Continue [...] 6.8% on 07/23/23 - last seen by lean process deployment consultant, Dr. Herndon in Apr 2022. - Continue [...] 6.9% on 10/31/22 - last seen by lean process deployment consultant, Dr. Herndon in Apr 2022. - Continue [...] on 03/29/22 - seen by Dr. Herndon, [facility] Endo for mostly hypothyroidism in May 2022 [...] - last seen by [facility] lean process deployment consultant on 02/20/21. Refer to a new lean process deployment consultant for transportation convenience. - Continue basal insulin: [...] find alternative medication and consult with her duplicate maker Assessment & Plan (07/26/2023 6:10 AM EDT): [...] find alternative medication and consult with her duplicate maker Assessment & Plan (04/29/2023 9:24 AM EST): [...] Plan (10/22/2023 9:50 AM EDT): - Cardiology, [facility], last seen on 08/05/23 -Nuclear stress test [...] & Plan (08/25/2023 6:13 PM EDT): [facility] -Nuclear stress [...] & Plan (07/23/2023 11:54 AM EDT): [facility] EKG showed [...] Plan (04/29/2023 9:35 AM EST): - Cardiology, [facility], last seen on 01/15/23. EKG showed further [...] Plan (02/25/2023 4:55 AM EST): - Cardiology, [facility], last seen on 01/15/23. EKG showed further increase in QT-c prolongation, likely due to electrolyte abnormality and medications. Sent to ED. -Nuclear stress test done in 2016 showed likely normal myocardial perfusion imaging. Last echo 2020 showed EF 60-65% with mild diastolic dysfunction, mild MR, mild pulmonary HTN Assessment & Plan (11/12/2022 10:57 AM EDT): - [facility] - Currently following with [facility] cardiology, last seen on 06/20/22. Found to have QT prolongation, likely due to electrolyte abnormality and medications Assessment & Plan (06/11/2022 8:54 AM EDT): - [facility] - Currently following with [facility] cardiology Peripheral venous insufficiency 02/28/2015 Postoperative hypothyroidism 02/28/2015 Assessment & Plan (10/23/2023 7:04 PM EDT): -h/o papillary thyroid cancer, s/p thyroidectomy -Goal TSH 0.5-1 -Most recent thyroid function test: 01/21/23 TSH 1.75 -Current replacement: levothyroxine 175 mcg daily -Continue current replacement, with caution since pt is losing weight -Previously seeing [facility] endocrinology; referred to a new lean process deployment consultant for both DM and hypothyroidism / Hx thyroid cancer; pt has not received an appt yet. -Seen by [facility] endocrinology Dr. Herndon in Apr 2022. Assessment & Plan (08/25/2023 5:49 PM EDT): -h/o papillary thyroid cancer, s/p thyroidectomy -Goal TSH 0.5-1 -Most recent thyroid function test: 01/21/23 TSH 1.75 -Current replacement: levothyroxine 175 mcg daily -Continue current replacement, with caution since pt is losing weight -Previously seeing [facility] endocrinology; referred to a new lean process deployment consultant for both DM and hypothyroidism / Hx thyroid cancer; pt has not received an appt yet. -Seen by [facility] endocrinology Dr. Herndon in Apr 2022. Assessment & Plan (07/23/2023 12:30 PM EDT): -h/o papillary thyroid cancer, s/p thyroidectomy -Goal TSH 0.5-1 -Most recent thyroid function test: 01/21/23 TSH 1.75 -Current replacement: levothyroxine 175 mcg daily -Continue current replacement, with caution since pt is losing weight -Previously seeing [facility] endocrinology; referred to a new lean process deployment consultant for both DM and hypothyroidism / Hx thyroid cancer; pt has not received an appt yet. -Seen by [facility] endocrinology Dr. Herndon in Apr 2022. Assessment & Plan (04/29/2023 9:39 AM EST): -h/o papillary thyroid cancer, s/p thyroidectomy -Goal TSH 0.5-1 -Most recent thyroid function test: 01/21/23 TSH 1.75 -Current replacement: levothyroxine 175 mcg daily -Continue current replacement, with caution since pt is losing weight -Previously seeing [facility] endocrinology; referred to a new lean process deployment consultant for both DM and hypothyroidism / Hx thyroid cancer; pt has not received an appt yet. -Seen by [facility] endocrinology Dr. Herndon in Apr 2022. Assessment & Plan (02/25/2023 5:02 AM EST): -h/o papillary thyroid cancer, s/p thyroidectomy -Goal TSH 0.5-1 -Most recent thyroid function test: 01/21/23 TSH 1.75 -Current replacement: levothyroxine 175 mcg daily -Continue current replacement, with caution since pt is losing weight -Previously seeing [facility] endocrinology; referred to a new lean process deployment consultant for both DM and hypothyroidism / Hx thyroid cancer; pt has not received an appt yet. -Seen by [facility] endocrinology Dr. Herndon in Apr 2022. Assessment [facility] referred to a new lean process deployment consultant for both DM and hypothyroidism / Hx thyroid cancer; pt has not received an appt yet. -Seen by [facility] endocrinology Dr. Herndon recently. Assessment & Plan [...] [facility]; referred to a new lean process deployment consultant for both DM and hypothyroidism / Hx thyroid cancer; pt has not received an appt yet. -Seen by [facility] endocrinology Dr. Herndon recently. Assessment & Plan [...] [facility]; referred to a new lean process deployment consultant for both DM and hypothyroidism / Hx thyroid cancer; pt has not received an appt yet. -Refer to [facility] endocrinology ESRD on dialysis 09/15/2013 Assessment & Plan (10/23/2023 11:55 AM EDT): - Sample Wrapper: Dr. Bowden, last seen on 10/13/24 - [...] - pt has an upcoming appt with duplicate maker - avoid nephrotoxic drug - renal dose [...] - pt has an upcoming appt with duplicate maker - avoid nephrotoxic drug - renal dose [...] - pt has an upcoming appt with duplicate maker - avoid nephrotoxic drug - renal dose [...] Ca 5.7; Phos 4.6; Glu 152 - Sample Wrapper: Dr. Bowden, last seen in September 2021 [...] CHRONIC KIDNEY DISEASE NOT ON CHRONIC DIALYSIS ([facility]) WRITTEN ON 04/29/2023 9:36 AM BY SENAIT CAR MD - CKD IV-V - most recent lab: 01/21/23 Na 145; K 2.9; Cl 108; Bicarb 24; BUN 33; Scr 3.3; eGFR 15; Ca 5.7; Phos 4.6; Glu 152 - Sample Wrapper: Dr. Bowden, last seen in Mar 2023 - avoid nephrotoxic drug - renal dose medications Assessment & Plan (10/20/2023 11:19 AM EDT): >>ASSESSMENT AND PLAN FOR CKD (CHRONIC KIDNEY DISEASE) STAGE 5, GFR LESS THAN 15 ML/MIN (CMS/HCC) WRITTEN ON 10/20/2023 11:18 AM BY SENAIT CAR MD >>ASSESSMENT AND PLAN FOR STAGE 5 CHRONIC KIDNEY DISEASE NOT ON CHRONIC DIALYSIS ([facility] WRITTEN ON 07/23/2023 11:57 AM BY MIRNA SNYDER - CKD IV-V - most recent lab: 01/21/23 Na 145; K 2.9; Cl 108; Bicarb 24; BUN 33; Scr 3.3; eGFR 15; Ca 5.7; Phos 4.6; Glu 152 - Sample Wrapper: Dr. Bowden, last seen in Mar 2023 - avoid nephrotoxic drug - renal dose medications Assessment & Plan (10/20/2023 11:19 AM EDT): >>ASSESSMENT AND PLAN FOR CKD (CHRONIC KIDNEY DISEASE) STAGE 5, GFR LESS THAN 15 ML/MIN ([facility] WRITTEN ON 10/20/2023 11:18 AM BY SENAIT CAR MD >>ASSESSMENT AND PLAN FOR STAGE 5 CHRONIC KIDNEY DISEASE NOT ON CHRONIC DIALYSIS ([facility] WRITTEN ON 08/25/2023 5:46 PM BY SENAIT CAR MD - CKD IV-V - Sample Wrapper: Dr. Bowden, last seen in July 2023 - avoid nephrotoxic drug - renal dose medications - starting dialysis soon, likely peritoneal Peripheral arterial occlusive disease 04/16/2013 Assessment & Plan (10/23/2023 11:54 AM EDT): -s/p balloon angioplasty of left SFA on 06/10/13 -s/p left big-toe amputation -previously followed by Dr. Fuchs and Dr. Courtney at [facility], last appt in Jan 2020 -currently followed by Dr. Butler, last seen on 07/10/23 -s/p left LE angioplasty on 07/10/23 -previously seen by [facility] wound care on 05/2021 -continue Plavix and ASA -discontinued cilostazol since it is contraindicated for HF -continue tramadol for claudication pain and other back / joint pain -work on risk factor management Assessment & Plan (08/25/2023 6:07 PM EDT): -s/p balloon angioplasty of left SFA on 06/10/13 -s/p left big-toe amputation -previously followed by Dr. Fuchs and Dr. Courtney at [facility], last appt in Jan 2020 -currently followed by Dr. Butler, last seen on 07/10/23 -s/p left LE angioplasty on 07/10/23 -previously seen by [facility] wound care on 05/2021 -continue Plavix and ASA -discontinue cilostazol since it is contraindicated for HF -continue tramadol for claudication pain and other back / joint pain -work on risk factor management Assessment & Plan (07/23/2023 12:32 PM EDT): -s/p balloon angioplasty of left SFA on 06/10/13 -s/p left big-toe amputation -previously followed by Dr. Fuchs and Dr. Courtney at [facility], last appt in Jan 2020 -currently followed by Dr. Butler, last seen on 07/10/23 -s/p left LE angioplasty on 07/10/23 -previously seen by [facility] wound care on 05/2021 -continue Plavix and ASA -continue cilostazol -continue tramadol for claudication pain and other back / joint pain -work on risk factor management Assessment & Plan (04/29/2023 9:35 AM EST): -s/p balloon angioplasty of left SFA on 06/10/13 -s/p left big-toe amputation -previously followed by Dr. Fuchs and Dr. Courtney at [facility], last appt in Jan 2020 -currently followed by Dr. Butler, last seen on 04/24/22 -previously seen by [facility] wound care on 05/2021 -continue Plavix and ASA -continue cilostazol -continue tramadol for claudication pain and other back / joint pain -work on risk factor management Assessment & Plan (02/25/2023 4:53 AM EST): -s/p balloon angioplasty of left SFA on 06/10/13 -s/p left big-toe amputation -previously followed by Dr. Fuchs and Dr. Courtney at [facility], last appt in Jan 2020 -currently followed by Dr. Butler, last seen on 04/24/22 -previously seen by [facility] wound care on 05/2021 -continue Plavix and ASA -continue cilostazol -continue tramadol for claudication pain and other back / joint pain -work on risk factor management Assessment & Plan (11/12/2022 10:57 AM EDT): -s/p balloon angioplasty of left SFA on 06/10/13 -s/p left big-toe amputation -previously followed by Dr. Fuchs and Dr. Courtney at [facility], last appt in Jan 2020 -currently followed by Dr. Butler, last seen on 04/24/22 -previously seen by [facility] wound care on 05/2021 -continue Plavix and ASA -continue cilostazol -continue tramadol for claudication pain and other back / joint pain -work on risk factor management Assessment & Plan (06/11/2022 8:43 AM EDT): -s/p balloon angioplasty of left SFA on 06/10/13 -s/p left big-toe amputation -previously followed by Dr. Fuchs and Dr. Courtney at [facility], last appt in Jan 2020 -currently followed by Dr. Butler, last seen on 04/24/22 -previously seen by [facility] wound care on 05/2021 -continue Plavix and ASA -continue cilostazol -continue tramadol for claudication pain and other back / joint pain -work on risk factor management Assessment & Plan (04/01/2022 12:15 PM EST): -s/p balloon angioplasty of left SFA on 06/10/13 -s/p left big-toe amputation -previously followed by Dr. Fuchs and Dr. Courtney at [facility], last appt in Jan 2020 -currently followed by Dr. Butler and [facility] wound care on 05/2021, with [facility] RN [...] Previously on sertraline. Due to prolonged QT-c, nurse supervisor recommended to discontinue - Started on mirtazapine 7.5 mg at bedtime in September 2023. She reports her mood has been better and stable. - Continue mirtazapine. Assessment & Plan (08/25/2023 5:58 PM EDT): - Previously on sertraline. Due to prolonged QT-c, nurse supervisor recommended to discontinue - Asked our pharmacist to review her medications - will consider adding bupropion, or venlafaxine, or duloexetine (Cymbalta). Assessment & Plan (02/26/2023 12:15 PM EST): - Previously on sertraline. Due to prolonged QT-c, nurse supervisor recommended to discontinue - Asked our pharmacist [...] at goal today -Co-managed with our pharmacist, duplicate maker, and nurse supervisor -Continue working on lifestyle modifications -Continue carvedilol 12.5 mg bid -Continue hydralazine 10 mg bid, will check with pharmacist and duplicate maker whether she is still taking it -Continue amlodipine 2.5 mg daily -Continue furosemide 80 mg daily - Treatment Hx: Discontinued amlodipine 5 mg daily due to swelling, Furosemide dose was increased during recent hospitalization for HF, isosorbide was added. Spironolactone (Hx hypokalemia), but discontinued when she moved to [place]. Losartan and chlorthalidone were discontinued in May [...] at goal today -Co-managed with our pharmacist, duplicate maker, and nurse supervisor -Continue working on lifestyle modifications -Continue carvedilol 12.5 mg bid -Continue hydralazine -Continue furosemide 80 mg daily - Treatment Hx: Discontinued amlodipine 5 mg daily due to swelling, Furosemide dose was increased during recent hospitalization for HF, isosorbide was added. Spironolactone (Hx hypokalemia), but discontinued when she moved to [place]. Losartan and chlorthalidone were discontinued in May [...] at goal today -Co-managed with our pharmacist, duplicate maker, and nurse supervisor -Continue working on lifestyle modifications -Continue metoprolol tartrate 25 mg bid -Discontinued amlodipine 5 mg daily yesterday by duplicate maker due to swelling -started furosemide 40 mg daily Treatment Hx: Previously on spironolactone (Hx hypokalemia), but discontinued when she moved to [place] Losartan and chlorthalidone were discontinued in May [...] at goal today -Co-managed with our pharmacist, duplicate maker, and nurse supervisor -Continue working on lifestyle modifications -Continue metoprolol tartrate 25 mg bid -Continue amlodipine 5 mg daily Treatment Hx: Previously on spironolactone (Hx hypokalemia), but discontinued when she moved to [place] Losartan and chlorthalidone were discontinued in May [...] at goal today -Co-managed with our pharmacist, duplicate maker, and nurse supervisor -Continue working on lifestyle modifications -Continue metoprolol tartrate 25 mg bid -Continue amlodipine 5 mg daily Treatment Hx: Previously on spironolactone (Hx hypokalemia), but discontinued when she moved to [place] Losartan and chlorthalidone were discontinued in May [...] hypokalemia), but discontinued when she moved to [place] Losartan and chlorthalidone were discontinued in May [...] hypokalemia), but discontinued when she moved to [place] Losartan and chlorthalidone were discontinued in May [...] 6.7% on 10/22/23 - last seen by lean process deployment consultant, Dr. Herndon in Apr 2022. - Continue [...] 08/22/23, has worsened - last seen by lean process deployment consultant, Dr. Herndon in Apr 2022. - Continue [...] 6.8% on 07/23/23 - last seen by lean process deployment consultant, Dr. Herndon in Apr 2022. - Continue [...] 6.9% on 10/31/22 - last seen by lean process deployment consultant, Dr. Herndon in Apr 2022. - Continue [...] 8.8% on 03/29/22 - last seen by lean process deployment consultant, Dr. Herndon in Apr 2022. - Continue [...] - last seen by [facility] lean process deployment consultant on 02/20/21. Refer to a new lean process deployment consultant for transportation convenience. - Continue basal insulin: [...] - last seen by [facility] lean process deployment consultant on 02/20/21. Refer to a new lean process deployment consultant for transportation convenience. - Continue basal insulin: [...] - last seen by [facility] lean process deployment consultant on 02/20/21. Refer to a new lean process deployment consultant for transportation convenience. - Continue basal insulin: [...] Plan (06/11/2022 8:54 AM EDT): Refer to talkback host Obesity 11/07/2011 03/29/2022 Encounters Date Type Department Care Team Description 05/16/2024 Refill [facility] [address] [place] [address] Senait Car MD Type 2 diabetes mellitus with stage 4 chronic kidney disease, with long-term current use of insulin ([facility]) 05/12/2024 Refill [facility] [address] [place] [address] Marlys Camp MD 04/24/2024 Telephone [facility] [address] [place], [place] [phone] Senait Car MD FYI 04/17/2024 Orders Only [facility] [address] [facility], [place] [phone] Senait Car MD Dark stools (Primary Dx); Diarrhea, unspecified type; Postoperative hypothyroidism 04/17/2024 Telephone [facility] [address] [place], [place] [phone] Senait Car MD Nurse Triage; Care Coordination 04/15/2024 Refill [facility] [address] [place], [place] [phone] Senait Car MD 03/23/2024 Refill [facility] [address] [place] [phone] Wanda Beal ANP Type 2 diabetes mellitus with stage 4 chronic kidney disease, with long-term current use of insulin ([facility]) 03/23/2024 Refill [facility] [address] [place], [place] [phone] Senait Car MD 03/04/2024 Telephone [facility] [address] [place], [place] [phone] Coreen Mondragon MA march recall from Last 3 Months Immunizations Name Administration [...] smokeless, etc) Tobacco Use No Gustabo Fernandez, Agnes Procedures Procedure Name Priority Date/Time Associated Diagnosis Comments BI MAMMOGRAM SCREENING TOMOSYNTHESIS BILATERAL Routine 01/17/2024 3:00 PM EDT POCT GLYCOSYLATED HEMOGLOBIN (HGB A1C) Routine 10/22/2023 9:20 AM EDT Type 2 diabetes mellitus with diabetic peripheral angiopathy without gangrene, with long-term current use of insulin ([facility]) LIPID PANEL WITH REFLEX TO DIRECT LDL Routine 09/05/2023 3:02 PM EDT Dyslipidemia 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 chronic dialysis, with long-term current use of insulin ([facility] [facility] DIABETES EYE EXAM Routine 08/04/2022 from Last 3 Months or Most Recently Relevant to Health Maintenance Results * BI Mammogram Screening Tomosynthesis Bilateral (01/17/2024 3:00 PM EDT) Anatomical Region Laterality Modality Breast Bilateral Mammography 01/17/2024 3:00 PM EDT Narrative 01/27/2024 7:44 PM EST ? [facility] ? [address] ?[place] [address] ? Mammography Report ? Signed ? Patient: García So,Iris N ?MR#: ?? [id number] ? : 1955 ?Acct:[id number] ? Age/Sex: 68 / F ?ADM Date: 01/17/24 ? Loc: HO.MAMMO ? Attending Dr: Senait Car MD ? Ordering Physician: Senait Car MD ?Results: 2Benign F ?? indings ? Date of Service: 01/17/24 ?Follow Up: 1 Year From Orig ?? inal Mammogram ? Procedure(s): MM tomosynthesis screening BI ?? Accession Number(s): [id number] ? cc: Senait Car MD ? EXAMINATION: [...] ??Camilla Poole DO ??01/27/2024 07:41 PM EST ? Dictated By: ?Camilla Poole DO ? Signed By: ?<Electronically signed by Camilla Poole, DO in OV> ? 01/27/24 194 ? DD/ 1500 ? TD/TT: 01/17/24 1515 ? Corporate Events Director: ? Procedure Note Donmirlandejensenlucreciater, Image - 01/27/2024 [place] [facility] [address] [place] [address] Mammography Report Signed Patient: Sarah Jones#: [id number] : 5Acct:[id number] Age/Sex: 68 / FADM Date: 01/17/24 Loc: SANDRA Attending Dr: Senait Car MD Ordering Physician: Senait Car MDResults: 2Benign F indings Date of Service: 01/17/24Follow Up: 1 Year From Orig inal Mammogram Procedure(s): MM tomosynthesis screening BI Accession Number(s): [id number] cc: Senait Car MD EXAMINATION: MM SCREENING [...] by: Camilla Poole DO 01/27/2024 07:41 PM [facility] Dictated By: Camilla Poole DO Signed By: <Electronically signed by Camilla Poole DO in OV> 01/27/241940 DD/ 1500 TD/TT: 01/17/24 1515 Corporate Events Director: Senait Car MD IMG BI PROCEDURES Edited Result - Final * (ABNORMAL) POCT glycosylated hemoglobin (Hgb A1c) (10/22/2023 9:20 AM EDT) Hemoglobin A1C 6.7(A) 4.0 - 6.0 % QC Media Lot # [id number] Lot# Expiration Date [id number] Blood Capillary blood specimen / Unknown 10/22/2023 9:20 AM EDT Senait Car MD POINT OF CARE TEST ENTER/EDIT OR DERABLES Final Result * (ABNORMAL) Lipid Panel with Reflex to Direct LDL (09/05/2023 3:02 PM EDT) Triglycerides 95 <150 mg/dL [facility] Comment:Desirable Triglyceri de: less than 150 mg/dLBorderline High Triglyceride 150-199 mg/dLHigh Triglyceride: 200-499 mg/dLVery High Triglyceride: greater than or equal to 5OO mg/dL Cholesterol 99 <200 mg/dL [facility] Comment:Desirable Cholestero l: less than 200 mg/dLBorderline High Cholesterol: 200-239 mg/dLHigh Cholesterol: greater than 239 mg/dL LDL Cholesterol Calculated 47 <100 mg/dL [facility] Comment:Desirable LDL: less than 100 mg/dLNear Optimal/Above Optimal LDL: 110- 129 mg/dLBorderline High LDL: 130-159 mg/dLHigh LDL: 160-189 mg/dLVery High LDL: greater than or equal to 190 mg/dL HDL Cholesterol 33(L) >40 mg/dL [facility] Comment:Desirable HDL: great er than 40 mg/dL Note: This HDL assay may give artificially low results in patients with liver disease. Blood 09/05/2023 3:02 PM EDT 09/05/2023 3:03 PM EDT Senait Car MD LAB BLOOD ORDERABLES Final Resul t [facility] [address] [place] [phone] * Diabetes Eye Exam (08/04/2022) Eye Exam Normal Normal [facility] Unassigned Pcp HEALTH MAINTENANCE Final Result from Last 3 Months or Most Recently Relevant to Health Maintenance Insurance * Guarantor: Sarah Jones Account Type Relation to Patient Date of Phone Billing Address Personal/Family Self [address] [place] [address] [facility] Care Teams Medical Diagnostic Radiographer Relationship Specialty Start Date End Date Senait Car MD [address] [place] [address] PCP - General Family Medicine 02/22/20 Gustabo Fernandez, PharmD [address] [place] [address] Pharmacist Internal Medicine 07/16/22 [facility] 09/14/23
--- OUTSIDE RECORDS SUMMARY | 2024-05-19 14:22 | XMS_ITS | Encounter Summary ---
Author Organization [employer] Address [address] [place] [address] Care Team Providers Care Second Worker Name Role Phone Senait Pal MD Primary Care Provider [phone] Gustabo Fernandez PharmD Unavailable [phone] Reason for Visit * Reason Onset Date Comments Durable Medical Equipment 12/10/2022 Encounter Details Date Type Department Care Team (Late st Contact Info) Description 12/10/2022 Telephone [facility] MEDICINE [address] [place], [place] [phone] Senait Pal MD [address] [place], [place] [phone] Durable Medical Equipment Social History Tobacco Use [...] documented as of this encounter Care Teams Second Worker Relationship Specialty Start Date End Date Senait Pal MD [address] [place] [address] PCP - General Family Medicine 02/22/20 Gustabo Fernandez PharmD [address] [place] [phone] Pharmacist Internal Medicine 07/16/[address] [facility] 09/14/23 documented as of this encounter
--- OUTSIDE RECORDS SUMMARY | 2024-05-19 14:22 | XMS_ITS | Encounter Summary ---
Author Organization [employer] Address [address] [place] [address] Care Team Providers Care Mirror Silverer Name Role Phone Senait Pal MD Primary Care Provider [phone] Gustabo Fernandez PharmD Unavailable [phone] Encounter Details Date Type Department Care Team ([facility] st Contact Info) Description 02/26/2023 Orders Only [facility] MEDICINE 230 [place], [place] [phone] Senait Pal MD [address] [place], [place] [phone] Social History Tobacco Use Types Packs/Day Years [...] EST) Vitamin D, 25-OH, D2 <4 ng/mL [facility] Comment:This test was reagan cerda and its analytical performancecharacteristics have been determined by [employer] [place], [place]. It hasnot been cleared or approved by the U.S. Food and DrugAdministration. This assay has been validated pursuantto the CLIA regulations and is used for clinicalpurposes.THIS TEST WAS PERFORMED AT:[employer] [place] [address]BYLJRDBCONNIE AVILA MD,PHD Vitamin D, 25-OH, D3 47 ng/mL [facility] Comment:This test was develo ped and its analytical performancecharacteristics have been determined by [employer] [place], [place]. It hasnot been cleared or approved by the U.S. Food and DrugAdministration. This assay has been validated pursuantto the CLIA regulations and is used for clinicalpurposes. Vitamin D, 25-OH, Total 47 30 - 100 ng/mL [facility] Comment:Vitamin D, 25-Hydrox y reports [...] = 30 ng/mL.For additional information, please refer tohttp://education.nap- Naturally Attached Parents/faq/VNS154(This link is being provided for informational/educational purposes only.) 02/26/2023 2:25 PM EST 02/26/2023 2:25 PM EST us Generic External Data Provider LAB BLOOD ORDERAB LES Final Result [facility] [address] [place] [phone] * (ABNORMAL) Calcium, Ionized (02/26/2023 2:25 PM EST) Calcium, Ionized 3.6(A) 4.7 - 5.5 mg/dL [facility] Comment:THIS TEST WAS PERFOR MED AT:[employer] [place] [id number] RAHMAN MD 02/26/2023 2:25 PM EST 02/26/2023 2:25 PM EST us Generic External Data Provider LAB BLOOD ORDERAB LES Final Result Performing Organization Address [facility] Co de Phone Number [facility] [address] [place] [phone] * (ABNORMAL) PTH, Intact Without Calcium (02/26/2023 2:25 PM EST) Parathyroid Hormone, Intact 135.0(H) 8.7 - 77.1 pg/mL [facility] 02/26/2023 2:25 PM EST 02/26/2023 2:25 PM EST Generic External Data Provider LAB BLOOD ORDERAB LES Final Result Performing Organization Address [facility] Phone Number [facility] [address] [place] [phone] documented in this encounter Visit Diagnoses Not on filedocumented in this encounter Additional Health Concerns Assessment Noted Time PHQ-9 Depression Total Score: 7 11/01/19 23 11:04 AM EDT documented as of this encounter Care Teams Mirror Silverer Relationship Specialty Start Date End Date Senait Pal MD [address] [place] [address] PCP - General Family Medicine 02/22/20 Gustabo Fernandez, HarshaD [address] [place] [address] Pharmacist Internal Medicine 07/16/22 [facility] 09/14/23 documented as of this encounter
--- OUTSIDE RECORDS SUMMARY | 2024-05-19 14:22 | XMS_ITS | Data Portability ---
Author Organization [employer] Address [address] [place] [phone] Care Team Providers Care School Cafeteria Cook Head Name Role Phone HIM CCA OTHER Assessment [...] in the field was performed by my backend developer colleague, as noted above, I provided real-time [...] Lab BMP, serum or plasma 2023 024 [facility], [address] [place] [address], [phone], 4 20:52:48 hemoglobin + hematocrit, blood 2023 024 [facility], [address] [place] [address], [phone], 4 20:51:45 Referral None recorded. Procedures None recorded. Surgeries None recorded. Imaging None recorded. Medication Orders sodium chloride 0.9 % intravenous solution 2023 024 [facility], [address] [place] [address], [id number], 4 20:51:12 doxycycline hyclate 100 mg capsule 2022 023 dcorrigan 5 Not available 3 15:43:21 doxycycline hyclate [address] [facility], [address] [place] [address], [id number], 3 15:51:20 Patient TargetsNo targets recorded. Patient InstructionsNo instructions recorded. Reason for Referral None Reported. Results Created Date Observation Date Name Description Value Unit Range Abnormal Flag Note LastModifiedBy Organization Detail LastModifiedTime 09/07/19 24 09/07/2023 BMP, serum or plasm a BUN 124 Not Available Main - Ins [address], [address], 09/07/2023 20:50:35 09/07/19 24 09/07/2023 BMP, serum or plasm a Ca 0.52 Not Available Main - [facility] [address], [address], 09/07/2023 20:50:35 09/07/19 24 09/07/2023 BMP, serum or plasm a CI- 103 Not Available Main - [facility] [address], [address], 09/07/2023 20:50:35 09/07/19 24 09/07/2023 BMP, serum or plasm a CRE 8.1 Not Available Main - [facility] [address], [address], 09/07/2023 20:50:35 09/07/19 24 09/07/2023 BMP, serum or plasm a GLU 267 Not Available Main - [facility] [address], [address], 09/07/2023 20:50:35 09/07/19 24 09/07/2023 BMP, serum or plasm a K+ 3.0 Not Available Main - [facility] [address], [address], 09/07/2023 20:50:35 09/07/19 24 09/07/2023 BMP, serum or plasm a Na+ 140 Not Available Main - [facility] [address], [address], 09/07/2023 20:50:35 09/07/19 24 09/07/2023 BMP, serum or plasm a tCO2 18 Not Available Main - Ins [address], [address], 09/07/2023 20:50:35 09/07/19 24 09/07/2023 hemog lobin + hemat ocrit , blood Hemoglobin 9.5 Not Available Main - Inst[facility] [address] [place] [address], [phone], 09/07/2023 20:51:28 09/07/19 24 09/07/2023 hemog lobin + hemat ocrit , blood Hematocrit 28 Not Available Main - Inst[address], [address], 09/07/2023 20:51:28 Result Notes None recorded. Medical [...] Address Organization Details Last Updated DateTime 3 32103.7 6 g 16 /min 99 % 99 [...] [degF] 137 mm[Hg] 65 mm[Hg] Not Available [facility] - production 2 19:10:22 Social History None [...] Note 3408 Kermit Tomas MD Main - [address] [phone] 11/01/2021 19:10:19 11/01/2021 19:13:43 74218 Noe Cortes MD [facility] [address] [place] [phone] 08/29/2022 15:40:31 08/30/2022 10:51:33 Cellulitis of lower limb [id number] L03.119 83807 CEDRICK BELLO MD Main - [address] [address] 09/07/2023 19:32:58 09/08/2023 16:45:57 Xgkks-km-clidzqb renal failure [id number] N17.9 Evaluation in the field was performed by my backend developer colleague, as noted above, I provided real-time [...] RA, T 98.3 Exam : Mildly decreased metallographer on the left hand but no other [...] ml-Unable to tolerate PO Kcl-expect called at [facility] Primary care, consider__ _ Dispositio n: ED Health Concerns Section Related Observation LastModified by Organization Detai ls LastModified Time None Recorded Concern Status LastModified by Organization Details LastModified Time None Recorded Advance Directives Directive None Recorded Payers Encounter Date Sequence Insurance Name Policy Number Policy Camacho Covered Member ID Camacho Member ID Guarantor Name 11/01/2021 1 [facility] - DOS PRIOR TO 2022 - DUAL ELIGIBLE (MEDICARE REPLACEMENT/AD VANTAGE - HMO) Sarah García [id number] Sarah García 08/29/2022 1 [facility] - DOS ON OR AFTER 2022 - DUAL ELIGIBLE - SKILLED NURSING OPTIONS AND ONE CARE (MEDICARE REPLACEMENT/AD VANTAGE - HMO) Sarah García [id number] Sarah García 09/07/2023 1 [facility] - DOS ON OR AFTER 2022 - DUAL ELIGIBLE - SKILLED NURSING OPTIONS AND ONE CARE (MEDICARE REPLACEMENT/AD VANTAGE - HMO) Sarah García [id number] Sarah García Notes Date Note Type Note Provider Name and Address Organization Details Recorded Time 11/01/2021 text/html HPI: Alergies-sandra inhibtors: cough and cilostazol: cough. Member reported fever and chills with weakness x 3 days, stated tested negative for Covid with home test. Questions UTI, but asymptomatic other than the above. Stateless speaker. Member is 66 yo, has thyroid cancer, DM, HTN, Ischemic cardiac disease, DM and Asthma. Denied having respiratory or GI/ sx. ................... ................... ................... ................... ................... ................... ................... ........ CRC Nursing Assessment: Comments: CRC RN DID NOT NEED FURTHER INFO TO PROCESS VISIT ................... ................... ................... ................... ................... ................... ................... ........ Spinner Hydraulic Note: Pt states she feels tired and sick with the chills but only at night. Pt admits Tylenol helps with chills. Pt denies chest pain/coughing/sneez ing/SOB and states she currently feels normal. UA negative for UTI, blood glucose 95. Pt states she has been drinking water without issues. Skin turgor good. Pt well appearing. [employer] contacted. Red flags discussed ................... ................... ................... ................... ................... ................... ................... ........ Disposition: Fulfilled Kermit Tomas MD [address] [facility],[address], [place], [address], [employer] 11/01/2021 19:13:41 08/29/2022 text/html HPI: CCA calling [...] ................... ................... ................... ................... ................... ................... ........ Spinner Hydraulic Note From Victor Manuel Gilmore: Pt CO [...] ................... ........ Disposition: Fulfilled Noe Cortes MD [address] [place] [address],[address], [place], [phone], [employer] 08/29/2022 16:20:09 09/07/2023 text/html CRC Nurse Triage Notes (George Gil): Chief Complaints: Syncope/Dizziness/L ightheadedness, Weakness/Lethargy PMH: Amputation, Diabetes, COPD/Asthma, Hypertension, Heart Disease Allergies: Unknown Comments: Environmental Monitoring Specialist verified the member's name//address and phone number. [...] emergency treatment if needed -Socorro Gil RN [employer] POC Test Results from Tamra Smith - [facility]ANI[facility] iSTAT Chem8+ (20:37:25) Na: 140 mEq/L K: 3.0 mEq/L Cl: 103 mEq/L iCa: 0.52 mmol/L TCO2: 18 mmol/L Glu: 267 mg/dL BUN: 124 mg/dL Crea: 8.1 mg/dL Hct: 28 % Hb: 9.5 g/dL A ................... ................... ................... ................... ................... ................... ................... ........ Spinner Hydraulic Note From LuisTamra: [facility] [employer] Kelsie Luis SC6 dispatched to a [facility] for a 68 yof C/O [...] and SOB on exertion, and had weak metallographer strength in her left hand. Blood sugar 324. Pt used 13U tresiba nightly, and had not started any new meds recently. She was instructed by her Sales Office Manager in the past week to DC her lasix, and stated she performed lab work in the past week through her Nephrology office. [facility] consulted; #20 IV placed in her left AC, BMP acquired, and she was given 500 mL NS. BUN and creatinine were critically high; [facility] was consulted again, and pt was informed that she must be transported to the ED immediately. Pt agreed and 911 was called. [facility] arrived and transported her to [place] ED. ................... ................... ................... ................... ................... ................... ................... ........ Disposition: Fulfilled CEDRICK BELLO MD [address] [place] [address],[address], [place], [address], [employer] 09/07/2023 21:09:47 OBGyn Episode No OBEpisode recorded.
--- OUTSIDE RECORDS SUMMARY | 2024-05-19 14:23 | XMS_ITS | Clinical Summary ---
Demographics Address [address] [place] [address] [address] [place] [address] Home Phone Preferred Language es Marital Status Unknown Voodoo Affiliation Unknown Race White Ethnic Group Unknown Author Organization [facility] Address [address] [place] [address] Phone Care Team Providers Care Debubblizer Name Role Phone Senait Pal MD Primary Care Provider [phone] Allergies Active Allergy Reactions Criticality Noted Date [...] complete this topic Insurance ([id number]) MARYELLEN SPENCER [id number] [facility] ([id number]) MARYELLEN SPENCER [id number] Care Teams Debubblizer Relationship Specialty Start Date End Date Senait Pal MD PCP - General 03/28/20
--- OUTSIDE RECORDS SUMMARY | 2024-05-19 14:23 | XMS_ITS | Encounter Summary ---
Author Organization [employer] Address [address] [place] [address] Care Team Providers Care Certified Alcohol Drug Counselor Name Role Phone Senait Pal MD Primary Care Provider [phone] Gustabo Fernandez PharmD Unavailable [phone] Reason for Visit * Reason Comments Med Refill Encounter Details Date Type Department Care Team ([facility] st Contact Info) Description 10/09/2023 Refill [facility] MEDICINE 230 [place], [place] [phone] Senait Pal MD [address] [place], [place] [phone] Type 2 diabetes mellitus with stage 4 chronic kidney disease, with long-term current use of insulin ([facility]) Social History Tobacco Use Types [...] disease, with long-term current use of insulin ([facility]) documented in this encounter Additional Health Concerns Assessment Noted Time PHQ-9 Depression Total Score: 7 11/01/19 23 11:04 AM EDT documented as of this encounter Care Teams Certified Alcohol Drug Counselor Relationship Specialty Start Date End Date Senait Pal MD [address] [place] [address] PCP - General Family Medicine 02/22/20 Gustabo Fernandez PharmD [address] [place] [address] Pharmacist Internal Medicine 07/16/22 [facility] 09/14/23 documented as of this encounter
--- OUTSIDE RECORDS SUMMARY | 2024-05-19 14:23 | XMS_ITS | Encounter Summary ---
Author Organization [employer] Address [address] [place] [address] Care Team Providers Care Laundry Bag Punch Operator Name Role Phone Senait Pal MD Primary Care Provider [phone] Gustabo Fernandez PharmD Unavailable [phone] Reason for Visit * Reason Onset Date Comments Nurse Triage 09/26/2023 Encounter Details Date Type Department Care Team ([facility] st Contact Info) Description 09/26/2023 Telephone [facility] MEDICINE 230 [place], [place] [phone] Senait Pal MD [address] [place], [place] [phone] Nurse Triage Social History Tobacco Use Types [...] symptoms worsen to be seen in the [facility]. Pt agreeable to plan and stated unders tanding. Forwarding to PCP and Radha Burciaga for FYI * Telephone Encounter - Brielle Henry LPN - 09/26/2023 9:34 AM EDT Triage call returned to patient who reports increased anxiety and crying and outburst while at homeand while in the community. Patient reports that a medication was discontinued by ( patient confirms who is [facility] and not her PCP ? )and that since that time she is having issues. Name of medication unknown, believes it was approx one month ago. No documentation identified at time of call. Patient denies SI/HI but reports that she is screaming out and then slapping her own face when agitated. Disposition reviewed and no pCP appts available. ASK/E.Patrica SCHOOL SPEECH LANGUAGE PATHOLOGIST on 09/30/23 @330pm following dialysis. [facility] clinicians explained to patient who was not [...] documented as of this encounter Care Teams Laundry Bag Punch Operator Relationship Specialty Start Date End Date Senait Pal MD [address] [place] [address] PCP - General Family Medicine 02/22/20 Gustabo Fernandez, HarshaD [address] [place] [address] Pharmacist Internal Medicine 07/16/22 [facility] 09/14/23 documented as of this encounter
--- OUTSIDE RECORDS SUMMARY | 2024-05-19 14:23 | XMS_ITS | Encounter Summary ---
Author Organization [employer] Address [address] [place] [address] Care Team Providers Care Die Casting Supervisor Name Role Phone Senait Pal MD Primary Care Provider [phone] Gustabo Fernandez PharmD Unavailable [phone] Reason for Visit * Reason Onset Date Comments FYI 04/24/2024 Encounter Details Date Type Department Care Team ([facility] st Contact Info) Description 04/24/2024 Telephone [facility] MEDICINE [address] [place], [place] [address] Senait Pal MD 230 [place], [place] [phone] Social History Tobacco Use Types Packs/Day Years [...] encounter Miscellaneous Notes * Telephone Encounter - Velia Pena RN - 04/24/2024 3:25 PM EST Returned call to Marlys to review message below, no answer, left voicemail to call back [facility] as needed in regards to questions or concerns with assisting pt with more SANFORIZING MACHINE OPERATOR hours. Marlys to call back PRN. * Telephone Encounter - Oliver Garcia - 04/24/2024 1:08 PM EST TC from Marlys with CCA reports received call from Ketty Juan requesting support for pt . Marlys states received message and will be outreaching to pt since she has a lot of diplomatic courier hours that can be used. Any questions please call [phone] ext [phone] documented in this encounter Plan of Treatment [...] as of this encounter Care Teams Die Casting Supervisor Relationship Specialty Start Date End Date Senait Pal MD [address] [place] [address] PCP - General Family Medicine 02/22/20 Gustabo Fernandez, Agnes [address] [place] [address] Pharmacist Internal Medicine 07/16/22 [facility] 09/14/23 documented as of this encounter
--- OUTSIDE RECORDS SUMMARY | 2024-05-19 14:23 | XMS_ITS | Encounter Summary ---
Author Organization [employer] Address [address] 7[address] [place] [address] Care Team Providers Care Racket Stringer Name Role Phone Senait Pal MD Primary Care Provider [phone] Gustabo Fernandez PharmD Unavailable [phone] Reason for Referral * Medications - Closed Specialty Diagnoses / Procedures Referred By Paul osborne Referred To Contact Diagnoses Type 2 diabetes mellitus with diabetic peripheral angiopathy without gangrene, with long-term current use of insulin (CMS/HCC) 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 chronic dialysis, with long-term current use of insulin (CMS/HCC) Senait Pal MD [address] [place] [address] Phone: tel: fax: Referral ID Status Reason Start Date Expiration Date Visits Re quested Visits Authorized [id number] Closed 1 1 * Medications - Closed Specialty Diagnoses / Procedures Referred By Paul osborne Referred To Contact Diagnoses Type 2 diabetes mellitus with diabetic peripheral angiopathy without gangrene, with long-term current use of insulin (CMS/HCC) 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 chronic dialysis, with long-term current use of insulin (CMS/HCC) Senait Pal MD [address] [place] [address] Phone: tel: fax: Referral ID Status Reason Start Date Expiration Date Visits Re quested Visits Authorized [id number] Closed 1 1 Encounter Details Date Type Department Care Team (Late st Contact Info) Description 09/24/2023 Orders Only [facility] [address] [facility] [place] [address] Senait Pal MD [address] [facility] [place] [address] Type 2 diabetes mellitus with diabetic peripheral [...] gangrene, with long-term current use of insulin ([facility])- Primary 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 chronic dialysis, with long-term current use of insulin (CMS/[facility]) Pain in both lower extremities documented in this encounter Additional Health Concerns Assessment Noted Time PHQ-9 Depression Total Score: 7 11/01/19 23 11:04 AM EDT documented as of this encounter Care Teams Racket Stringer Relationship Specialty Start Date End Date Senait Pal MD [address] [place] [address] PCP - General Family Medicine 02/22/20 Gustabo Fernandez, HarshaD [address] [place] [address] Pharmacist Internal Medicine 07/16/22 [facility] 09/14/23 documented as of this encounter
--- OUTSIDE RECORDS SUMMARY | 2024-05-19 14:23 | XMS_ITS | Encounter Summary ---
Author Organization [employer] Address [address] [place] [address] Care Team Providers Care Registered Client Associate Name Role Phone Senait Pal MD Primary Care Provider [phone] Gustabo Fernandez PharmD Unavailable [phone] Encounter Details Date Type Department Care Team ([facility] st Contact Info) Description 04/17/2024 Orders Only [facility] MED[facility]INE 230 [place], [place] [phone] Senait Pal MD [address] [place], [place] [phone] Dark stools (Primary Dx); Diarrhea, unspecified type; [...] documented as of this encounter Care Teams Registered Client Associate Relationship Specialty Start Date End Date Senait Pal MD [address] [place] [address] PCP - General Family Medicine 02/22/20 Gustabo Fernandez PharmD [address] [place] [address] Pharmacist Internal Medicine 07/16/22 [facility] 09/14/23 documented as of this encounter
--- OUTSIDE RECORDS SUMMARY | 2024-05-19 14:23 | XMS_ITS | Encounter Summary ---
Demographics Address [address] [place] [address] Home Phone Preferred Language es Marital Status Unknown Lutheran Affiliation Unknown Race White Ethnic Group Unknown Author Organization [facility] Address [address] [place] [address] Phone Care Team Providers Care Finance Controller Name Role Phone Senait Pal MD Primary Care Provider [phone] Encounter Details Date Type Department Care Team (Late st Contact Info) Description 06/08/2020 Orders Only [facility] [address] [place] [address] ProviderJesus MD [facility] [place] [address] Social History Tobacco Use Types [...] on filedocumented in this encounter Care Teams Finance Controller Relationship Specialty Start Date End Date Senait Pal MD PCP - General 03/28/20 documented as of this encounter
--- OUTSIDE RECORDS SUMMARY | 2024-05-19 14:23 | XMS_ITS | Encounter Summary ---
Author Organization [employer] Address [address] 7[address] [place] [address] Care Team Providers Care Passenger Rate Clerk Name Role Phone Senait Pal MD Primary Care Provider [phone] Gustabo Fernandez PharmD Unavailable [phone] Encounter Details Date Type Department Care Team (Late st Contact Info) Description 06/11/2022 Abstract [facility] MEDICINE 230 [place], [place] [phone] Senait Pal MD [address] [place], [place] [phone] Social History Tobacco Use Types Packs/Day Years [...] on filedocumented in this encounter Care Teams Passenger Rate Clerk Relationship Specialty Start Date End Date Senait Pal MD [address] [place], [place] [phone] PCP - General Family Medicine 02/22/20 Gustabo Fernandez, PharmD [address] [place] [address] Pharmacist Internal Medicine 07/16/22 [facility] 09/14/23 documented as of this encounter
--- OUTSIDE RECORDS SUMMARY | 2024-05-19 14:23 | XMS_ITS | Encounter Summary ---
Author Organization [employer] Address [address] [place] [address] Care Team Providers Care Channeler Insole Name Role Phone Senait Pal MD Primary Care Provider [phone] Gustabo Fernandez PharmD Unavailable [phone] Reason for Visit * Reason Onset Date Comments Hospital Follow-up 09/24/2023 Encounter Details Date Type Department Care Team ([facility] st Contact Info) Description 09/24/2023 Telephone [facility] MEDICINE 230 [place], [place] [phone] Senait Pal MD [address] [place], [place] [phone] Hospital Follow-up Social History Tobacco Use Types [...] documented as of this encounter Care Teams Channeler Insole Relationship Specialty Start Date End Date Senait Pal MD [address] [place] [address] PCP - General Family Medicine 02/22/20 Gustabo Fernandez, HarshaD [address] [place] [address] Pharmacist Internal Medicine 07/16/22 [facility] 09/14/23 documented as of this encounter
--- OUTSIDE RECORDS SUMMARY | 2024-05-19 14:23 | XMS_ITS | Encounter Summary ---
Author Organization [employer] Address [address] [facility] [address] [place] [address] Care Team Providers Care Arc And Gas Welder Name Role Phone Senait Pal MD Primary Care Provider [phone] Gustabo Fernandez PharmD Unavailable [phone] Reason for Referral * Imaging (Routine) - Closed Specialty Diagnoses / Procedures Referred By Contac t Referred To Contact Diagnoses Enlarged lymph node in neck Procedures US guided biopsy lymph node superficial Senait Pal MD [address] [place] [address] Phone: tel: fax: [address] Phone: tel: fax: Referral ID Status Reason Start Date Expiration Date Visits Re quested Visits Authorized [id number] Closed 07/03/2022 12/30/2022 1 1 Encounter Details Date Type Department Care Team (Late st Contact Info) Description 07/03/2022 Orders Only [facility] MEDICINE [address] [place], [place] [phone] Senait Pal MD [address] [place], [place] [phone] Enlarged lymph node in neck (Primary Dx) [...] Primary documented in this encounter Care Teams Arc And Gas Welder Relationship Specialty Start Date End Date Senait Pal MD [address] [place] [address] PCP - General Family Medicine 02/22/20 Gustabo Fernandez, HarshaD [address] [place] [address] Pharmacist Internal Medicine 07/16/22 [facility] 09/14/23 documented as of this encounter
--- OUTSIDE RECORDS SUMMARY | 2024-05-19 14:23 | XMS_ITS | Encounter Summary ---
Author Organization [employer] Address [address] [facility] [facility] [address] [place] [address] Care Team Providers Care Manager Women Name Role Phone Senait Pal MD Primary Care Provider [phone] Gustabo Fernandez PharmD Unavailable [phone] Reason for Visit * Reason Onset Date Comments Referral 04/05/2022 Encounter Details Date Type Department Care Team (Late st Contact Info) Description 04/05/2022 Telephone [facility] MEDICINE 230 [place], [place] [phone] Senait Pal MD [address] [place], [place] [phone] Referral Social History Tobacco Use Types Packs/Day [...] for aallergist specialist Please contact pt at [phone] documented in this encounter Plan of Treatment Not on file documented as of this encounter Visit Diagnoses Not on filedocumented in this encounter Care Teams Manager Women Relationship Specialty Start Date End Date Senait Pal MD [address] [place] [address] PCP - General Family Medicine 02/22/20 Gustabo Fernandez, Agnes [address] [place] [address] Pharmacist Internal Medicine 07/16/22 [facility] 09/14/23 documented as of this encounter
--- OUTSIDE RECORDS SUMMARY | 2024-05-19 14:23 | XMS_ITS | Encounter Summary ---
Author Organization [employer] Address [address] [facility] [address] [address] [place] [address] Care Team Providers Care Radio/Tv Technician Name Role Phone Senait Pal MD Primary Care Provider [phone] Gustabo Fernandez PharmD Unavailable [phone] Reason for Referral * Imaging (Urgent) - Closed Specialty Diagnoses / Procedures Referred By Contac t Referred To Contact Radiology Diagnoses Open wound of right great toe, initial encounter Procedures MRI FOOT RIGHT W WO CONTRAST Senait Pal MD [address] [place] [address] Phone: tel: fax: [address] Phone: tel: fax: Referral ID Status Reason Start Date Expiration Date Visits Re quested Visits Authorized [id number] Closed 09/16/2023 09/15/2024 1 1 Encounter Details Date Type Department Care Team (Late st Contact Info) Description 09/16/2023 Orders Only [facility] MEDICINE 230 [place], [place] [phone] Senait Pal MD [address] [place], [place] [phone] Open wound of right great toe, initial [...] t he electric, gas, oil or water Collective threatened to shut off services in your [...] documented as of this encounter Care Teams Radio/Tv Technician Relationship Specialty Start Date End Date Senait Pal MD [address] [place] [address] PCP - General Family Medicine 02/22/20 Gustabo Fernandez, HarshaD [address] [place] [address] Pharmacist Internal Medicine 07/16/22 [facility] 09/14/23 documented as of this encounter
--- OUTSIDE RECORDS SUMMARY | 2024-05-19 14:23 | XMS_ITS | Encounter Summary ---
Author Organization [employer] Address [address] [place] [address] Care Team Providers Care Landscape And Yardwork Laborer Name Role Phone Senait Pal MD Primary Care Provider [phone] Gustabo Fernandez PharmD Unavailable [phone] Reason for Visit * Reason Comments Med Refill Encounter Details Date Type Department Care Team ([facility] st Contact Info) Description 05/16/2024 Refill [facility] MEDICINE 230 [place], [place] [phone] Senait Pal MD [address] [place], [place] [phone] Type 2 diabetes mellitus with stage 4 chronic kidney disease, with long-term current use of insulin ([facility]) Social History Tobacco Use Types [...] the past 12 months, has t he [employer] gas, oil or water company threatened to [...] disease, with long-term current use of insulin ([facility]) documented in this encounter Additional Health Concerns Assessment Noted Time PHQ-9 Depression Total Score: 7 11/01/19 23 11:04 AM EDT documented as of this encounter Care Teams Landscape And Yardwork Laborer Relationship Specialty Start Date End Date Senait Pal MD [address] [place] [address] PCP - General Family Medicine 02/22/20 Gustabo Fernandez PharmD [address] [place] [address] Pharmacist Internal Medicine 07/16/22 [facility] 09/14/23 documented as of this encounter
--- OUTSIDE RECORDS SUMMARY | 2024-05-19 14:23 | XMS_ITS | Encounter Summary ---
Author Organization [employer] Address [address] [place] [address] Care Team Providers Care Spinning Frame Fixer Name Role Phone Senait Pal MD Primary Care Provider [phone] Gustabo Fernandez PharmD Unavailable [phone] Encounter Details Date Type Department Care Team ([facility] st Contact Info) Description 10/30/2023 Orders Only [facility] MEDICINE 230 [place], [place] [phone] Senait Pal MD [address] [place], [place] [phone] Social History Tobacco Use Types Packs/Day Years [...] documented as of this encounter Care Teams Spinning Frame Fixer Relationship Specialty Start Date End Date Senait Pal MD [address] [place] [address] PCP - General Family Medicine 02/22/20 Gustabo Fernandez PharmD [address] [place] [address] Pharmacist Internal Medicine 07/16/22 [facility] 09/14/23 documented as of this encounter
--- OUTSIDE RECORDS SUMMARY | 2024-05-19 14:23 | XMS_ITS | Encounter Summary ---
Author Organization [employer] Address [address] [place] [address] Care Team Providers Care C Programmer Name Role Phone Senait Pal MD Primary Care Provider [phone] Gustabo Fernandez PharmD Unavailable [phone] Reason for Referral * Consultation (STAT) - Closed Specialty Diagnoses / Procedures Referred By Contac t Referred To Contact Neurology Diagnoses Hearing loss of left ear, unspecified hearing loss type Meningioma (CMS/HCC) Senait Pal MD [address] [place], [place] Phone: tel: fax: Bianca Lockett MD [address] [place] [address] [place] [address] Phone: tel: fax: Referral ID Status Reason Start Date Expiration Date V isits Requested Visits Authorized [id number] Closed Specialty Services Required 01/15/2024 01/14/2025 1 1 Encounter Details Date Type Department Care Team (Late st Contact Info) Description 01/15/2024 Orders Only [facility] MEDICINE [address] [place] [address] Senait Pal MD [address] [place], [place] Hearing loss of left ear, unspecified [...] documented as of this encounter Care Teams C Programmer Relationship Specialty Start Date End Date Senait Pal MD [address] [place] [address] PCP - General Family Medicine 02/22/20 Gustabo Fernandez PharmD [address] [place] [address] Pharmacist Internal Medicine 07/16/22 [facility] 09/14/23 documented as of this encounter
--- OUTSIDE RECORDS SUMMARY | 2024-05-19 14:23 | XMS_ITS | Encounter Summary ---
Author Organization [employer] Address [address] [facility] [address] [facility] [address] [place] [address] Care Team Providers Care Easement Man Name Role Phone Senait Pal MD Primary Care Provider Gustabo Fernandez PharmD Unavailable [phone] Reason for Visit * Reason Comments Med Refill Encounter Details Date Type Department Care Team ([facility] st Contact Info) Description 05/12/[address] [facility] MEDICINE 230 [place], [place] [phone] Marlys Camp MD 230 [place], [place] [phone] Social History Tobacco Use Types Packs/Day Years [...] documented as of this encounter Care Teams Easement Man Relationship Specialty Start Date End Date Senait Pal MD [address] [place] [address] PCP - General Family Medicine 02/22/20 Gustabo Fernandez PharmD [address] [place] [address] Pharmacist Internal Medicine 07/16/22 [facility] 09/14/23 documented as of this encounter
--- OUTSIDE RECORDS SUMMARY | 2024-05-19 14:23 | XMS_ITS | Encounter Summary ---
Author Organization [employer] Address [address] [place] [address] Care Team Providers Care Forensic Artist Name Role Phone Senait Pal MD Primary Care Provider [phone] Gustabo Fernandez PharmD Unavailable [phone] Encounter Details Date Type Department Care Team ([facility] st Contact Info) Description 04/26/2022 Orders Only [facility] MEDICINE 230 [place], [place] [phone] Senait Pal MD 230 [place], [place] [phone] Tobacco user (Primary Dx) Social History Tobacco [...] disorder documented in this encounter Care Teams Forensic Artist Relationship Specialty Start Date End Date Senait Pal MD 230 [place], [place] [phone] PCP - General Family Medicine 02/22/20 Gustabo Fernandez, PharmD [address] [place] [address] Pharmacist Internal Medicine 07/16/22 [facility] 09/14/23 documented as of this encounter
--- OUTSIDE RECORDS SUMMARY | 2024-05-19 14:23 | XMS_ITS | Encounter Summary ---
Author Organization [employer] Address [address] [facility] [address]t [place] [address] Care Team Providers Care Professional Driver Name Role Phone Senait Pal MD Primary Care Provider [phone] Gustabo Fernandez PharmD Unavailable [phone] Reason for Visit * Reason Onset Date Comments Durable Medical Equipment 10/01/2023 Encounter Details Date Type Department Care Team ([facility] st Contact Info) Description 10/01/2023 Telephone [facility] MEDICINE 230 [place], [place] [phone] Senait Pal MD [address] [place], [place] [phone] Durable Medical Equipment Social History Tobacco Use [...] 12:24 PM EDT Tc from Rosangela at [facility] [place] [facility] calling to request DME raised toilet seat transfer tub bench Please fax to [phone] documented in this encounter Plan of Treatment [...] documented as of this encounter Care Teams Professional Driver Relationship Specialty Start Date End Date Senait Pal MD [address] [place] [address] PCP - General Family Medicine 02/22/20 Gustabo Fernandez PharmD [address] [place] [address] Pharmacist Internal Medicine 07/16/22 [facility] 09/14/23 documented as of this encounter
--- OUTSIDE RECORDS SUMMARY | 2024-05-19 14:23 | XMS_ITS | Encounter Summary ---
Author Organization [employer] Address [address] [facility] [address] [place] [address] Care Team Providers Care Textile Converter Name Role Phone Senait Pal MD Primary Care Provider [phone] Gustabo Fernandez PharmD Unavailable [phone] Reason for Visit * Reason Comments Med Refill Encounter Details Date Type Department Care Team ([facility] st Contact Info) Description 03/23/2024 Refill [facility] MEDICINE 230 [place], [place] [phone] Senait Pal MD 230 [place], [place] [phone] Social History Tobacco Use Types Packs/Day Years [...] documented as of this encounter Care Teams Textile Converter Relationship Specialty Start Date End Date Senait Pal MD [address] [place] [address] PCP - General Family Medicine 02/22/20 Gustabo Fernandez, HarshaD [address] [place] [phone] Pharmacist Internal Medicine 07/16/22 [facility] 09/14/23 documented as of this encounter
--- OUTSIDE RECORDS SUMMARY | 2024-05-19 14:23 | XMS_ITS | Encounter Summary ---
Author Organization [employer] Address [address] [facility] 7t [place] [address] Care Team Providers Care Title Department Manager Name Role Phone Senait Pal MD Primary Care Provider Gustabo Fernandez PharmD Unavailable [phone] Reason for Referral * Imaging (Routine) - Closed Specialty Diagnoses / Procedures Referred By Contac t Referred To Contact Diagnoses Smoking greater than [address] Lung Screening Low dose Senait Pal MD [address] [place] [address] Phone: tel: fax: [facility] MRI and CT Scan [address] [place] [address] Phone: tel: fax: Referral ID Status Reason Start Date Expiration Date Visits Re quested Visits Authorized [id number] Closed 04/01/2022 04/01/2023 1 1 Encounter Details Date Type Department Care Team (Late st Contact Info) Description 04/01/2022 Orders Only [facility] MEDICINE [address] [place] [phone] Senait Pal MD 230 [place], [place] [phone] Smoking greater than 20 pack years (Primary [...] colon documented in this encounter Care Teams Title Department Manager Relationship Specialty Start Date End Date Senait Pal MD [address] [place] [address] PCP - General Family Medicine 02/22/20 Gustabo Fernandez, HarshaD [address] [place] [address] Pharmacist Internal Medicine 07/16/22 [facility] 09/14/23 documented as of this encounter
--- OUTSIDE RECORDS SUMMARY | 2024-05-19 14:23 | XMS_ITS | Encounter Summary ---
Author Organization [employer] Address [address] [place] [address] Care Team Providers Care Deputy K 9 Name Role Phone Senait Pal MD Primary Care Provider [phone] Gustabo Fernandez PharmD Unavailable [phone] Reason for Visit * Reason Onset Date Comments Nurse Triage 04/17/2024 Care Coordination 04/17/2024 Encounter Details Date Type Department Care Team (Late st Contact Info) Description 04/17/2024 Telephone [facility] MEDICINE [address] [place] [address] Senait Pal MD [address] [place], [place] [phone] Nurse Triage; Care Coordination Social History Tobacco [...] the past 12 months, has t he [place], gas, oil or water [employer] threatened to shut off services in your [...] placed to CCA.Spoke with Caesar who states care transitions nurse Donita unavailable but that mohamudlito send her [...] Sx above to call us, come to [facility] or ED, or call [facility] instED. Pt agreeable. Faxed home labs to [facility]. Telephone call placed to [facility] dispute coordinator. However, they stated their system is [...] to contact pt gain and to call rn primary care * Telephone Encounter - Leora Singh RN - 04/17/2024 1:27 PM EST Telephone call placed to pt to triage regarding diarrhea and weakness noted below. No answer, left v/m. Please call patient's care transitions nurse and request an assistance in organizing appointment with specialists (and keeping appointments). She only goes to see a lamp shade joiner, but patient did not follow upwith ENT, is uncertain about appointment with folding machine feeder, riprap placer, vascular specialist, and disabilities services officer (thyroid). Also, please ask if they can [...] call or letter. Given the number for [facility] neurology to reschedule. Patient reports diarrhea and feeling weak. Patient has been taking loperamide for diarrhea. Dark stools. Patient states she has spoken with her lamp shade joiner recently about diarrhea, and was told that patient is being referred to another specialist, but is uncertain of the exact plan. Patient states her apartment building sometimes does not have functioning intercom / doorbell. Will request patient's care transitions nurse that patient needs an assistance in organizing appointment with specialists. She only goes to see a lamp shade joiner, but patient did not follow up with ENT, is uncertain about appointmentwith folding machine feeder, riprap placer, vascular specialist, and disabilities services officer (thyroid). Patient also needs a lab. Will [...] documented as of this encounter Care Teams Deputy K 9 Relationship Specialty Start Date End Date Senait Pal MD [address] [place] [address] PCP - General Family Medicine 02/22/20 Gustabo Fernandez, HarshaD [address] [place] [address] Pharmacist Internal Medicine 07/16/22 [facility] 09/14/23 documented as of this encounter
== END 2024-05-19 11:50 | disposition home or self-care (01) ==
PROVIDERS: PCP Family Medicine; Visit Provider Internal Medicine Hypertension Specialist
DX: N18.6 End stage renal disease (principal); Z99.2 Dependence on renal dialysis
CPT/HCPCS: 99024

== ENCOUNTER → 2024-05-19 11:23 | Outpatient (BNVA) | payer OTHER, SELFPAY | PROVIDERS: PCP Family Medicine; Visit Provider Internal Medicine Hypertension Specialist | DX: N18.6 End stage renal disease (principal); Z99.2 Dependence on renal dialysis | CPT/HCPCS: 99212 ==

== ENCOUNTER → 2024-06-16 | Outpatient (BNV) | payer OTHER, SELFPAY | PROVIDERS: PCP Family Medicine; Visit Provider Internal Medicine Hypertension Specialist | DX: N18.6 End stage renal disease (principal) | CPT/HCPCS: 90962 ==

== ENCOUNTER 2024-07-07 15:05 | Outpatient (AMB) | payer OTHER, SELFPAY ==
[2024-07-07 15:10] VITALS: BP 126/62; PULSE 83; O2SAT 95; BMI 29.2
--- NOTE | 2024-07-07 15:10 | HO.NEPHOV ---
Vital Signs 07/07/24 15:10 Height 5 ft Weight 149 lb 8 oz BMI 29.2 BP 126/62 Blood Pressure Location Rt brachial Position Sitting Pulse 83 Pulse Source Pulse Oximeter Pulse Oximetry (%) 95 Oxygen Delivery Method Room Air Intake Visit Reasons: 1 MO FU/ Conf Allergies ALLYSSA Inhibitors [ALLYSSA INHIBITORS] Allergy (Mild, Verified 07/07/24 15:12) COUGH cilostazol [CILOSTAZOL] Allergy (Mild, Verified 07/07/24 15:12) COUGH HPI Comments Details: Sarah is a 67-year-old woman who is well known to me. She has a longstanding history of diabetes mellitus complicated by chronic disease. She has advanced chronic kidney disease. Back in 2020 she was hospitalized and she spent some time in the ICU while she was critically ill. She sustained acute kidney injury at that time. She underwent extensive serological workup. Serum complement C3-C4 were low. Other serologies were unremarkable. She underwent a kidney biopsy which showed evidence of advanced diabetic nephropathy. There was no evidence of immune complex disease. She comes today for follow-up and accompanied by family member. Recent creatinine has been around 3.5 mg/dL. She denies any specific complaints like nausea vomiting or shortness of breath. She has lost some weight but her appetite has been good. No edema. She has history of significant hypokalemia and hypocalcemia for which she has been taking supplements. On January 21 she was sent to [facility] emergency room due to hypokalemia and she was treated in the ER and sent home. 03/21/2023. Here for follow-up. No specific complaints today. 04/25/23;Did not go for blood work.NO complaints today 07/22/23 Underwent aortogram 30 cc dye was used;s/p Left SFA dialtation ;Pre procedure creatinine was 4.1 and HgB 7.6 ;c/o SOB on exertion and leg edema 08/05/23 During last visit she was found to have severe anemia ;Admitted and transfused ;Feels better today ;NO dyspnea 09/05/2023. Complains of nausea for the last few days. No shortness of breath. Accompanied by daughter. 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) Hypothyroidism associated with surgical procedure (~2008) Uncontrolled type 2 diabetes mellitus with hyperglycemia (~1986) Pneumonitis ARDS (adult respiratory distress syndrome) Neuropathy Asthma-COPD overlap syndrome Anemia HTN (hypertension) Hypercholesteremia Surgical History History of thyroidectomy History of back surgery History of 2 sections History of angioplasty History of amputation of left great toe Family History Mother Hypertension Diabetes Father AA (alcohol abuse) Social History Household Members: Family Housing: Apartment Do you presently have 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 or other home services: Yes ([employer]) Alcohol intake: never 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 Tobacco Use Status: Former Tobacco user Years Smoked: 45 Advance Directives Date on File: 09/13/20 service: No Current occupational status: disabled Physical Exam Vital Signs: Last Vital Signs Pulse 83 07/07/24 15:10 BP 126/62 07/07/24 15:10 Pulse Ox 95 07/07/24 15:10 Oxygen Delivery Method Room Air 07/07/24 15:10 BMI result Body Mass Index 29.2 Results Reviewed Nephrology Results: Hgb 5.3 g/dl (12.0-16.0) L* 04/22/24 WBC 7.1 X10*3/uL (4.8-10.8) 04/22/24 Plt Count 182 X10*3/uL (160-400) 04/22/24 Sodium 138 mmol/L (135-145) 04/22/24 Potassium 3.5 mmol/L (3.3-5.1) 04/22/24 Chloride 105 mmol/L (96-108) 04/22/24 Carbon Dioxide 25 mmol/L (22-29) 04/22/24 BUN 37 mg/dL (9-16) H 04/22/24 Creatinine 3.04 mg/dL (0.5-1.4) H 04/22/24 Calcium 4.2 mg/dL (8.4-10.2) L* 04/22/24 Phosphorus 5.0 mg/dL (2.7-4.5) H 04/22/24 Assessment & Plan Assessment & Plan (1) ESRD needing dialysis: Code(s): N18.6 - End stage renal disease; Z99.2 - Dependence on renal dialysis Category: Medical Plan see dialysis notes Coding Level of Care Code Global (12937) Diagnoses ESRD needing dialysis N18.6; Z99.2
--- OUTSIDE RECORDS SUMMARY | 2024-07-07 18:01 | XMS_ITS | Encounter Summary ---
Author Organization [employer] Address [address] [facility] [address] [place] [address] Care Team Providers Care Kettle Operator Name Role Phone Senait Pal MD Primary Care Provider [phone] Gustabo Fernandez PharmD Unavailable [phone] Encounter Details Date Type Department Care Team ([facility] st Contact Info) Description 11/12/2022 Orders Only [facility] MEDICINE [address] [place], [place] [phone] Senait Pal MD [address] [place], [place] [phone] Social History Tobacco Use Types Packs/Day Years [...] documented as of this encounter Care Teams Kettle Operator Relationship Specialty Start Date End Date Senait Pal MD [address] [place] [address] PCP - General Family Medicine 02/22/20 Gustabo Fernandez, HarshaD [address] [place] [address] Pharmacist Internal Medicine 07/16/[address] [facility] 09/14/23 documented as of this encounter
--- OUTSIDE RECORDS SUMMARY | 2024-07-07 18:01 | XMS_ITS | Encounter Summary ---
Author Organization [employer] Address [address] [facility] [address] 7t [place] [address] Care Team Providers Care Dedicated Local Truck Driver Name Role Phone Senait Pal MD Primary Care Provider [phone] Gustabo Fernandez PharmD Unavailable [phone] Encounter Details Date Type Department Care Team ([facility] st Contact Info) Description 11/01/2022 Abstract [facility] MEDICINE [address] [place], [place] [phone] Senait Pal MD [address] [place] [address] Social History Tobacco Use Types Packs/Day Years [...] Eye Exam (08/04/2022) Eye Exam Normal Normal [facility] Unassigned Pcp HEALTH MAINTENANCE Final Result documented in this encounter Visit Diagnoses Not on filedocumented in this encounter Additional Health Concerns Assessment Noted Time PHQ-9 Depression Total Score: 7 11/01/19 23 11:04 AM EDT documented as of this encounter Care Teams Dedicated Local Truck Driver Relationship Specialty Start Date End Date Senait Pal MD [address] [place] [address] PCP - General Family Medicine 02/22/20 Gustabo Fernandez, Agnes [address] [place] [address] Pharmacist Internal Medicine 07/16/22 [facility] 09/14/23 documented as of this encounter
--- OUTSIDE RECORDS SUMMARY | 2024-07-07 18:01 | XMS_ITS | Encounter Summary ---
Author Organization [employer] Address [address] [facility] [address] [place] [address] Care Team Providers Care Manager Human Resources Name Role Phone Senait Pal MD Primary Care Provider Gustabo Fernandez PharmD Unavailable [phone] Reason for Visit * Reason Comments Med Refill Encounter Details Date Type Department Care Team (Late st Contact Info) Description 11/12/2022 Refill [facility] [address] [place], [place] [phone] Senait Pal MD [address] [place] [address] Social History Tobacco Use Types Packs/Day Years [...] as of this encounter Care Teams Manager Human Resources Relationship Specialty Start Date End Date Senait Pal MD [address] [place] [address] PCP - General Family Medicine 02/22/20 Gustabo Fernandez, PharmD [address] [place] [address] Pharmacist Internal Medicine 07/16/22 [facility] 09/14/23 documented as of this encounter
--- OUTSIDE RECORDS SUMMARY | 2024-07-07 18:02 | XMS_ITS | Encounter Summary ---
Author Organization [employer] Address [address] [facility] 7t [place] [address] Care Team Providers Care Minister Name Role Phone Senait Pal MD Primary Care Provider [phone] Gustabo Fernandez PharmD Unavailable [phone] Reason for Referral * Imaging (Routine) - Closed Specialty Diagnoses / Procedures Referred By Contac t Referred To Contact Diagnoses Smoking greater than [address] Lung Screening Low dose Senait Pal MD [address] [place] [address] Phone: tel: fax: [facility] Scan [address] [place] [address] Phone: tel: fax: Referral ID Status Reason Start Date Expiration Date Visits Re quested Visits Authorized [id number] Closed 04/01/2022 04/01/2023 1 1 Encounter Details Date Type Department Care Team (Late st Contact Info) Description 04/01/2022 Orders Only [facility] MEDICINE [address] [place] [phone] Senait Pal MD [address] [place], [place] [phone] Smoking greater than 20 pack years (Primary [...] colon documented in this encounter Care Teams Minister Relationship Specialty Start Date End Date Senait Pal MD [address] [place] [address] PCP - General Family Medicine 02/22/20 Gustabo Fernandez, HarshaD [address] [place] [address] Pharmacist Internal Medicine 07/16/22 [facility] 09/14/23 documented as of this encounter
--- OUTSIDE RECORDS SUMMARY | 2024-07-07 18:02 | XMS_ITS | Encounter Summary ---
Author Organization [employer] Address [address] [facility] [address] 7t [place] [address] Care Team Providers Care Mud Logger Name Role Phone Senait Pal MD Primary Care Provider [phone] Gustabo Fernandez PharmD Unavailable [phone] Reason for Visit * Reason Onset Date Comments Hospital Follow-up 09/24/2023 Encounter Details Date Type Department Care Team ([facility] st Contact Info) Description 09/24/2023 Telephone [facility] MEDICINE [address] [place], [place] [phone] Senait Pal MD [address] [place], [place] [phone] Hospital Follow-up Social History Tobacco Use Types [...] documented as of this encounter Care Teams Mud Logger Relationship Specialty Start Date End Date Senait Pal MD [address] [place] [address] PCP - General Family Medicine 02/22/20 Gustabo Fernandez, HarshaD [address] [place] [address] Pharmacist Internal Medicine 07/16/22 [facility] 09/14/23 documented as of this encounter
--- OUTSIDE RECORDS SUMMARY | 2024-07-07 18:02 | XMS_ITS | Encounter Summary ---
Author Organization [employer] Address [address] [facility] [address] 7[address] [place] [address] Care Team Providers Care Hat And Cap Opener Name Role Phone Senait Pal MD Primary Care Provider [phone] Gustabo Fernandez PharmD Unavailable [phone] Reason for Visit * Reason Comments Med Refill Encounter Details Date Type Department Care Team ([facility] st Contact Info) Description 06/09/[address] [facility] MEDICINE [address] [place], [place] [phone] Senait Pal MD [address] [place], [place] [phone] Moderate episode of recurrent major depressive disorder [...] housing situation today? I have marionmarcelo vásquez 12/31/[address] you [...] documented as of this encounter Care Teams Hat And Cap Opener Relationship Specialty Start Date End Date Senait Pal MD [address] [place] [address] PCP - General Family Medicine 02/22/20 Gustabo Fernandez, PharmD [address] [place] [address] Pharmacist Internal Medicine 07/16/22 [facility] 09/14/23 documented as of this encounter
--- OUTSIDE RECORDS SUMMARY | 2024-07-07 18:02 | XMS_ITS | Encounter Summary ---
Author Organization [employer] Address [address] [facility] [facility] 7[address] [place] [address] Care Team Providers Care Rn Case Manager Name Role Phone Senait Pal MD Primary Care Provider Gustabo Fernandez PharmD Unavailable [phone] Reason for Visit * Reason Comments Med Refill Encounter Details Date Type Department Care Team ([facility] st Contact Info) Description 01/31/2023 Refill [facility] MEDICINE [address] [place], [place] [phone] Senait Pal MD [address] [place], [place] [phone] Moderate episode of recurrent major depressive disorder [...] documented as of this encounter Care Teams Rn Case Manager Relationship Specialty Start Date End Date Senait Pal MD [address] [place] [address] PCP - General Family Medicine 02/22/20 Gustabo Fernandez, PharmD [address] [place] [address] Pharmacist Internal Medicine 07/16/22 [facility] 09/14/23 documented as of this encounter
--- OUTSIDE RECORDS SUMMARY | 2024-07-07 18:02 | XMS_ITS | Encounter Summary ---
Author Organization [employer] Address [address] [facility] [address] 7t [place] [address] Care Team Providers Care Physical Ther Name Role Phone Senait Pal MD Primary Care Provider [phone] Gustabo Fernandez PharmD Unavailable Reason for Referral * Imaging (Urgent) - Closed Specialty Diagnoses / Procedures Referred By Contac t Referred To Contact Radiology Diagnoses Open wound of right great toe, initial encounter Procedures MRI FOOT RIGHT W WO CONTRAST Senait Pal MD [address] [place] [address] Phone: tel: fax: [address] Phone: tel: fax: Referral ID Status Reason Start Date Expiration Date Visits Re quested Visits Authorized [id number] Closed 09/16/2023 09/15/2024 1 1 Encounter Details Date Type Department Care Team (Late st Contact Info) Description 09/16/2023 Orders Only [facility] MEDICINE [address] [place], [place] [phone] Senait Pal MD [address] [place], [place] [phone] Open wound of right great toe, initial [...] t he electric, gas, oil or water [employer] threatened to shut off services in your [...] documented as of this encounter Care Teams Physical Ther Relationship Specialty Start Date End Date Senait Pal MD [address] [place] [address] PCP - General Family Medicine 02/22/20 Gustabo Fernandez, HarshaD [address] [place] [address] Pharmacist Internal Medicine 07/16/22 [facility] 09/14/23 documented as of this encounter
--- OUTSIDE RECORDS SUMMARY | 2024-07-07 18:02 | XMS_ITS | Encounter Summary ---
Author Organization [employer] Address [address] [facility] [address] [place] [address] Care Team Providers Care Plant Chief Name Role Phone Senait Pal MD Primary Care Provider [phone] Gustabo Fernandez PharmD Unavailable [phone] Encounter Details Date Type Department Care Team ([facility] st Contact Info) Description 04/26/2022 Orders Only [facility] MEDICINE [address] [place], [place] [phone] Senait Pal MD [address] [place], [place] [phone] Tobacco user (Primary Dx) Social History Tobacco [...] disorder documented in this encounter Care Teams Plant Chief Relationship Specialty Start Date End Date Senait Pal MD [address] [place], [place] [phone] PCP - General Family Medicine 02/22/20 Gustabo Fernandez, PharmD [address] [place] [address] Pharmacist Internal Medicine 07/16/[address] [facility] 09/14/23 documented as of this encounter
--- OUTSIDE RECORDS SUMMARY | 2024-07-07 18:02 | XMS_ITS ---
Author Name [employer] Organization Unknown Care Team Organization Name Specialty Phone Email Start Date End Da tayo [facility] 09/27/2022 11/04/2023
--- OUTSIDE RECORDS SUMMARY | 2024-07-07 18:02 | XMS_ITS | Encounter Summary ---
Author Organization [employer] Address [address] [address] [place] [address] Care Team Providers Care Dry Starch Supervisor Name Role Phone Senait Pal MD Primary Care Provider [phone] Gustabo Fernandez PharmD Unavailable [phone] Reason for Visit * Reason Onset Date Comments Durable Medical Equipment 12/10/2022 Encounter Details Date Type Department Care Team (Late st Contact Info) Description 12/10/2022 Telephone [facility] MEDICINE 230 [place], [place] [phone] Senait Pal MD [address] [place], [place] [phone] Durable Medical Equipment Social History Tobacco Use [...] as of this encounter Care Teams Dry Starch Supervisor Relationship Specialty Start Date End Date Senait Pal MD [address] [place] [address] PCP - General Family Medicine 02/22/20 Gustabo Fernandez PharmD [address] [place] [address] Pharmacist Internal Medicine 07/16/22 [facility] 09/14/23 documented as of this encounter
--- OUTSIDE RECORDS SUMMARY | 2024-07-07 18:02 | XMS_ITS | Encounter Summary ---
Author Organization [employer] Address [address] [facility] [address] [place] [address] Care Team Providers Care Payroll Bookkeeper Name Role Phone Senait Pal MD Primary Care Provider [phone] Gustabo Fernandez PharmD Unavailable [phone] Reason for Visit * Reason Onset Date Comments Nurse Triage 09/26/2023 Encounter Details Date Type Department Care Team ([facility] st Contact Info) Description 09/26/2023 Telephone [facility] MEDICINE [address] [place], [place] [phone] Senait Pal MD [address] [place] [address] Nurse Triage Social History Tobacco Use Types [...] symptoms worsen to be seen in the [facility]. Pt agreeable to plan and stated unders tanding. Forwarding to PCP and Radha Burciaga for FYI * Telephone Encounter - Brielle Hnery LPN - 09/26/2023 9:34 AM EDT Triage call returned to patient who reports increased anxiety and crying and outburst while at homeand while in the community. Patient reports that a medication was discontinued by ( patient confirms who is [facility] and not her PCP ? )and that since that time she is having issues. Name of medication unknown, believes it was approx one month ago. No documentation identified at time of call. Patient denies SI/HI but reports that she is screaming out and then slapping her own face when agitated. Disposition reviewed and no pCP appts available. ASK/E.Patrica EFFICIENCY ANALYST on 09/30/23 @330pm following dialysis. [facility] clinicians explained to patient who was not [...] documented as of this encounter Care Teams Payroll Bookkeeper Relationship Specialty Start Date End Date Senait Pal MD [address] [place] [address] PCP - General Family Medicine 02/22/20 Gustabo Fernandez, HarshaD [address] [place] [address] Pharmacist Internal Medicine 07/16/22 [facility] 09/14/23 documented as of this encounter
--- OUTSIDE RECORDS SUMMARY | 2024-07-07 18:02 | XMS_ITS | Encounter Summary ---
Demographics Address [address] [place] [address] Home Phone Preferred Language es Marital Status Unknown Jehovah'S Witness Affiliation Unknown Race White Ethnic Group Unknown Author Organization [facility] Address [address] [place] [address] Phone Care Team Providers Care Patient Care Nursing Assistant Name Role Phone Senait Pal MD Primary Care Provider [phone] Encounter Details Date Type Department Care Team (Late st Contact Info) Description 06/08/2020 Orders Only [facility] [address] [place] [address] ProviderJesus MD [facility] [place] [address] Social History Tobacco Use Types [...] on filedocumented in this encounter Care Teams Patient Care Nursing Assistant Relationship Specialty Start Date End Date Senait Pal MD PCP - General 03/28/20 documented as of this encounter
--- OUTSIDE RECORDS SUMMARY | 2024-07-07 18:02 | XMS_ITS | Encounter Summary ---
Author Organization [employer] Address [address] 7[address] [place] [address] Care Team Providers Care Hedge Fund Trader Name Role Phone Senait Pal MD Primary Care Provider [phone] Gustabo Fernandez PharmD Unavailable [phone] Reason for Referral * Imaging (Routine) - Closed Specialty Diagnoses / Procedures Referred By Contac t Referred To Contact Diagnoses Enlarged lymph node in neck Procedures US guided biopsy lymph node superficial Senait Pal MD [address] [place] [address] Phone: tel: fax: [address] Phone: tel: fax: Referral ID Status Reason Start Date Expiration Date Visits Re quested Visits Authorized [id number] Closed 07/03/2022 12/30/2022 1 1 Encounter Details Date Type Department Care Team (Late st Contact Info) Description 07/03/2022 Orders Only [facility] MEDICINE [address] [place], [place] [phone] Senait Pal MD [address] [place], [place] [phone] Enlarged lymph node in neck (Primary Dx) [...] Primary documented in this encounter Care Teams Hedge Fund Trader Relationship Specialty Start Date End Date Senait Pal MD [address] [place] [address] PCP - General Family Medicine 02/22/20 Gustabo Fernandez, HarshaD [address] [place] [address] Pharmacist Internal Medicine 07/16/22 [facility] 09/14/23 documented as of this encounter
--- OUTSIDE RECORDS SUMMARY | 2024-07-07 18:02 | XMS_ITS | Clinical Summary ---
Author Organization [employer] Address [address] [place] [address] Care Team Providers Care Lighter Captain Name Role Phone Senait Pal MD Primary Care Provider [phone] Gustabo Fernandez PharmD Unavailable [phone] Allergies Active Allergy Reactions Criticality Noted Date Comments Miguel Inhibitors Cough Low Cilostazol Cough Low 06/16/2014 Medications Acetaminophen Extra Strength 500 MG tablet TAKE 2 TABLETS BY MOUTH EVERY 6 HOURS NEEDED 05/15/19 22 Active Ventolin HFA 108 (90 Base) MCG/ACT inhaler INHALE 2 PUFFS BY MOUTH EVERY 4 TO 6 HOURS NEEDED FOR DIFFICULTY BREATHING. NO MORE THAN FOUR TIMES DAILY. 09/06/19 22 Active Sissy-Dryl 25 MG tablet TAKE 1/2 TABLET BY MOUTH AT BEDTIME NEEDED (for itching) 02/23/20 22 Active Tresiba FlexTouch 100 UNIT/ML injection INJECT 13 UNITS SUBCUTANEOUSLY ONCE DAILY IN THE MORNING 15 mL 11 06/22/19 23 Active nicotine polacrilex (Commit) 2 MG lozengeIndicati ons:Tobacco dependence DISSOLVE 1 LOZENGE IN MOUTH EVERY 4-8 HOURS NEEDED 72 lozenge 02/13/20 23 Active glucose blood (FREESTYLE LITE) test strip TEST BLOOD SUGAR THREE TIMES DAILY 100 strip 03/04/20 23 Active Lancets (Unilet Micro-Thin 33G) misc TEST BLOOD SUGAR THREE TIMES DAILY 100 each 03/04/20 23 Active BD Pen Needle Isabella U/F 32G X 4 MM misc USE FOUR TIMES DAILY WITH LANTUS AND HUMALOG 100 each 11 07/18/19 24 Active Aspirin Adult Low Strength 81 MG EC tablet TAKE 1 TABLET BY MOUTH EVERYDAY AT NOON 90 tablet 3 08/08/19 24 Active atorvastatin (Lipitor) 80 MG tablet TAKE 1 TABLET BY MOUTH AT BEDTIME 90 tablet 3 08/08/19 24 Active Ferrous Sulfate (iron) 325 (65 Fe) MG tablet TAKE 1 TABLET BY MOUTH EVERY EVENING 90 tablet 3 08/08/19 24 Active isosorbide mononitrate ER (Imdur) 30 MG 24 hr tablet Take 1 tablet by mouth Once per day. 07/27/19 24 Active cetirizine (ZyrTEC) 5 MG tablet TAKE 1 TABLET BY MOUTH ONCE DAILY NEEDED FOR ALLERGIES 30 tablet 11 09/06/19 24 Active clopidogrel (Plavix) 75 MG tablet TAKE 1 TABLET BY MOUTH EVERYDAY AT NOON 90 tablet 3 09/09/19 24 Active hydrALAZINE (Apresoline) 10 MG tablet Take 1 tablet (10 mg) by mouth 2 times daily. 60 tablet 09/24/19 24 Active Continuous Glucose Informatics Developer (FreeStyle Nata 2 [place]) deviceIndicatio ns:Type 2 diabetes mellitus with diabetic peripheral angiopathy without gangrene, with long-term current use of insulin ([facility]),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 chronic dialysis, with long-term current use of insulin ([facility]) Scan sensor every 8 hours 1 each 09/24/19 24 Active Continuous Glucose Sensor (FreeStyle Nata 2 Sensor) miscIndications :Type 2 diabetes mellitus with diabetic peripheral angiopathy without gangrene, with long-term current use of insulin ([facility]),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 chronic dialysis, with long-term current use of insulin ([facility]) Apply 1 sensor every 14 days 2 each 09/24/19 24 Active glucose blood (FreeStyle Precision Andrea Test) test strip Use to test blood sugar 3 times daily 100 each 09/24/19 24 025 Active traMADol 25 MG tabletIndicatio ns:Pain in both lower extremities Take 25 mg by mouth if needed each day for severe pain. 30 tablet 09/27/19 24 Active cholecalciferol VITAMIN D (Vitamin D-3) 50 MCG (2000 UT) tablet TAKE 1 TABLET BY MOUTH EVERYDAY AT NOON 90 tablet 3 10/16/19 Active amLODIPine (Norvasc) 2.5 MG tablet Take 2.5 mg by mouth in the morning. 10/16/19 Active calcium acetate (Phoslo) 667 MG capsule Take 667 mg by mouth with breakfast, with lunch, and with evening meal. 10/14/19 Active montelukast (Singulair) 10 MG tablet TAKE 1 TABLET BY MOUTH EVERY EVENING 90 tablet 3 11/05/19 Active levothyroxine (Synthroid, Levoxyl) 150 MCG tablet TAKE 1 TABLET BY MOUTH EVERY MORNING BEFORE BREAKFAST 90 tablet 3 11/05/19 Active budesonide-form oterol (Symbicort) 160-4.5 MCG/ACT inhaler INHALE 2 PUFFS BY MOUTH TWICE DAILY RINSE MOUTH AFTER USING. DO NOT SWALLOW 10.2 g 11/15/19 Active TRUEplus Lancets 33G miscIndications :Type 2 diabetes mellitus with stage 4 chronic kidney disease, with long-term current use of insulin ([facility]) TEST BLOOD SUGAR THREE TIMES DAILY 100 each 03/24/19 25 Active Incruse Ellipta 62.5 MCG/ACT aerosol powder INHALE 1 PUFF BY MOUTH EVERY DAY AT THE SAME TIME IN THE MORNING 30 each 11 04/15/19 25 Active carvedilol (Coreg) 12.5 MG tablet TAKE 1 TABLET BY MOUTH TWICE DAILY AT NOON AND IN THE EVENING 180 tablet 05/12/19 25 Active Tradjenta 5 MG tabletIndicatio ns:Type 2 diabetes mellitus with stage 4 chronic kidney disease, with long-term current use of insulin ([facility]) TAKE 1 TABLET BY MOUTH EVERYDAY AT NOON 30 tablet 1 05/19/19 25 Active mirtazapine (Remeron) 7.5 MG tablet TAKE 1 TABLET BY MOUTH AT BEDTIME 30 tablet 1 05/19/19 25 Active Active Problems Problem Noted Date Diagnosed [...] - Continue following with Wound Care and urban design consultant Abnormal echocardiogram 09/26/2023 Hospital discharge follow-up 09/26/2023 Hypercholesteremia 09/26/2023 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 09/26/2023 Assessment & Plan (10/23/2023 7:03 PM EDT): - hypocalcemia - continue high-dose calcium replacement prescribed by welding pantograph machine operator Metabolic acidosis 09/26/2023 Secondary renal hyperparathyroidism 09/26/2023 Sinus tachycardia 09/26/2023 Antiplatelet or antithrombotic long-term use 01/2024 Heart failure 09/26/2023 Atherosclerotic cardiovascular disease Kidney stone 08/25/2023 Assessment & Plan (10/23/2023 [...] vascular specialist and [place] [facility] [place] on 09/26/23 showed osteomyelitis - [...] chronic HF in July 2023, hospitalized in [facility] [place] transthoracic echocardiogram on 07/24/23: Mildly increased [...] monitor fluid balance - following with both welding pantograph machine operator and health and wellness coordinator Weight gain 07/23/2023 Assessment & Plan (07/23/2023 [...] states that she is scheduled for transfusion. Embroidery Supervisor is also planning to start EPO. Assessment & Plan (04/29/2023 9:41 AM EST): - chronic anemia due to CKD - plan to start erythropoietin with welding pantograph machine operator or heamtologist Prolonged Q-T interval on ECG 02/26/2023 Assessment & Plan (10/23/2023 11:54 AM EDT): - QTc > 500 ms - health and wellness coordinator recommends to discontinue SSRI, and sertraline was discontinued - optimize electrolyte replacement - now on peritoneal dialysis Assessment & Plan (08/25/2023 6:13 PM EDT): - QTc > 500 ms - health and wellness coordinator recommends to discontinue SSRI, and sertraline was discontinued - pharmacist will review her medications - optimize electrolyte replacement Assessment & Plan (07/26/2023 6:11 AM EDT): - most recent QTc 571 ms - health and wellness coordinator recommends to discontinue SSRI - pharmacist will review her medications - optimize electrolyte replacement Assessment & Plan (02/26/2023 12:16 PM EST): - most recent QTc 571 ms - health and wellness coordinator recommends to discontinue SSRI - pharmacist will review her medications - optimize electrolyte replacement Type 2 diabetes mellitus wit h chronic kidney disease on chronic dialysis, with long-term current use of insulin 07/03/2022 Assessment & Plan (10/23/2023 12:29 PM EDT): A1C 6.7% on 10/22/23 - last seen by head nurse, Dr. Herndon in Apr 2022. - Continue [...] 6.8% on 07/23/23 - last seen by head nurse, Dr. Herndon in Apr 2022. - Continue [...] 6.9% on 10/31/22 - last seen by head nurse, Dr. Herndon in Apr 2022. - Continue [...] on 03/29/22 - seen by Dr. Herndon, [facility] [place] for mostly hypothyroidism in May 2022 [...] 8.8% on 03/29/22 - last seen by [facility] head nurse on 02/20/21. Refer to a new head nurse for transportation convenience. - Continue basal insulin: [...] find alternative medication and consult with her welding pantograph machine operator Assessment & Plan (07/26/2023 6:10 AM EDT): [...] find alternative medication and consult with her welding pantograph machine operator Assessment & Plan (04/29/2023 9:24 AM EST): [...] Plan (10/22/2023 9:50 AM EDT): - [place]iology, [facility] last seen on 08/05/23 -Nuclear stress test done in 2017 showed likely normal myocardial perfusion imaging. Last [...] & Plan (08/25/2023 6:13 PM EDT): - Cardiology, [facility], last seen on 08/05/23 -Nuclear stress test done in 2017 showed likely normal myocardial perfusion imaging. Last [...] & Plan (07/23/2023 11:54 AM EDT): - Cardiology, [facility], last seen on 01/15/23. EKG showed further [...] & Plan (04/29/2023 9:35 AM EST): [facility] EKG showed further [...] Plan (02/25/2023 4:55 AM EST): - Cardiology, [facility], last seen on 01/15/23. EKG showed further increase in QT-c prolongation, likely due to electrolyte abnormality and medications. Sent to ED. -Nuclear stress test done in 2016 showed likely normal myocardial perfusion imaging. Last echo 2020 showed EF 60-65% with mild diastolic dysfunction, mild MR, mild pulmonary HTN Assessment & Plan (11/12/2022 10:57 AM EDT): - Previously seen by [facility] - Currently following with [facility] [place], last seen on 06/20/22. Found to have QT prolongation, likely due to electrolyte abnormality and medications Assessment & Plan (06/11/2022 8:54 AM EDT): - Previously seen by [facility] - Currently following with [facility] [place] Peripheral venous insufficiency 02/28/2015 Postoperative hypothyroidism 02/28/2015 Assessment & Plan (10/23/2023 7:04 PM EDT): -h/o papillary thyroid cancer, s/p thyroidectomy -Goal TSH 0.5-1 -Most recent thyroid function test: 01/21/23 TSH 1.75 -Current replacement: levothyroxine 175 mcg daily -Continue current replacement, with caution since pt is losing weight -Previously seeing [facility] endocrinology; referred to a new head nurse for both DM and hypothyroidism / Hx thyroid cancer; pt has not received an appt yet. -Seen by [facility] [place]. Herndon in Apr 2022. Assessment & Plan (08/25/2023 5:49 PM EDT): -h/o papillary thyroid cancer, s/p thyroidectomy -Goal TSH 0.5-1 -Most recent thyroid function test: 01/21/23 TSH 1.75 -Current replacement: levothyroxine 175 mcg daily -Continue current replacement, with caution since pt is losing weight -Previously seeing [facility] endocrinology; referred to a new head nurse for both DM and hypothyroidism / Hx thyroid cancer; pt has not received an appt yet. -Seen by [facility] [place]. Herndon in Apr 2022. Assessment & Plan (07/23/2023 12:30 PM EDT): -h/o papillary thyroid cancer, s/p thyroidectomy -Goal TSH 0.5-1 -Most recent thyroid function test: 01/21/23 TSH 1.75 -Current replacement: levothyroxine 175 mcg daily -Continue current replacement, with caution since pt is losing weight -Previously seeing [facility] endocrinology; referred to a new head nurse for both DM and hypothyroidism / Hx thyroid cancer; pt has not received an appt yet. -Seen by [facility] [place]. Herndon in Apr 2022. Assessment & Plan (04/29/2023 9:39 AM EST): -h/o papillary thyroid cancer, s/p thyroidectomy -Goal TSH 0.5-1 -Most recent thyroid function test: 01/21/23 TSH 1.75 -Current replacement: levothyroxine 175 mcg daily -Continue current replacement, with caution since pt is losing weight -Previously seeing [facility] endocrinology; referred to a new head nurse for both DM and hypothyroidism / Hx thyroid cancer; pt has not received an appt yet. -Seen by [facility] [place]. Herndon in Apr 2022. Assessment & Plan (02/25/2023 5:02 AM EST): -h/o papillary thyroid cancer, s/p thyroidectomy -Goal TSH 0.5-1 -Most recent thyroid function test: 01/21/23 TSH 1.75 -Current replacement: levothyroxine 175 mcg daily -Continue current replacement, with caution since pt is losing weight -Previously seeing [facility] endocrinology; referred to a new head nurse for both DM and hypothyroidism / Hx thyroid cancer; pt has not received an appt yet. -Seen by [facility] [place]. Herndon in Apr 2022. Assessment & Plan (11/12/2022 11:16 AM EDT): -h/o papillary thyroid cancer, s/p thyroidectomy -Goal TSH 0.5-1 -Most recent thyroid function test: In 2021, supratherapeutic. Repeating today -Current replacement: levothyroxine 175 mcg daily, decreased from 213 mcg daily after the most recent lab -Continue current replacement, with caution since pt is losing weight -Previously seeing [facility] endocrinology; referred to a new head nurse for both DM and hypothyroidism / Hx thyroid cancer; pt has not received an appt yet. -Seen by [facility] [place]. Herndon recently. Assessment & Plan (06/11/2022 8:55 AM EDT): -h/o papillary thyroid cancer, s/p thyroidectomy -Goal TSH 0.5-1 -Most recent thyroid function test: 07/28/21 TSH 0.05 -Current replacement: levothyroxine 175 mcg daily, decreased from 213 mcg daily after the most recent lab -Continue current replacement, with caution since pt is losing weight -Previously seeing [facility] endocrinology; referred to a new head nurse for both DM and hypothyroidism / Hx thyroid cancer; pt has not received an appt yet. -Seen by [facility] [place]. Herndon recently. Assessment & Plan (04/01/2022 12:19 PM EST): -h/o papillary thyroid cancer, s/p thyroidectomy -Goal TSH 0.5-1 -Most recent thyroid function test: 07/28/21 TSH 0.05 -Current replacement: levothyroxine 175 mcg daily, decreased from 213 mcg daily after the most recent lab -Continue current replacement, with caution since pt is losing weight -Previously seeing [facility] endocrinology; referred to a new head nurse for both DM and hypothyroidism / Hx thyroid cancer; pt has not received an appt yet. -Refer to [facility] [place]ocr[place] ESRD on dialysis 09/15/2013 Assessment & Plan (10/23/2023 11:55 AM EDT): - Embroidery Supervisor: Dr. Bowden, last seen on 10/13/24 - on peritoneal dialysis at home - avoid nephrotoxic drug Assessment & Plan (10/20/2023 11:19 AM EDT): >>ASSESSMENT AND PLAN FOR CKD (CHRONIC KIDNEY DISEASE) STAGE 5, GFR LESS THAN 15 ML/MIN (CMS/HCC) WRITTEN ON 10/20/2023 11:18 AM BY SENAIT PAL MD >>ASSESSMENT AND PLAN FOR STAGE 5 CHRONIC KIDNEY DISEASE NOT ON CHRONIC DIALYSIS (CMS/HCC) WRITTEN ON 04/01/2022 12:14 PM BY SENAIT PAL MD - CKDIII/IV - most recent lab: Dec 2021 SCr 2.0 ; BUN 20; eGFR 24 - pt has an upcoming appt with welding pantograph machine operator - avoid nephrotoxic drug - renal dose medications Assessment & Plan (10/20/2023 11:19 AM EDT): >>ASSESSMENT AND PLAN FOR CKD (CHRONIC KIDNEY DISEASE) STAGE 5, GFR LESS THAN 15 ML/MIN (CMS/HCC) WRITTEN ON 10/20/2023 11:18 AM BY SENAIT PAL MD >>ASSESSMENT AND PLAN FOR STAGE 5 CHRONIC KIDNEY DISEASE NOT ON CHRONIC DIALYSIS (CMS/HCC) WRITTEN ON 06/11/2022 8:54 AM BY SENAIT PAL MD - CKDIII/IV - most recent lab: Dec 2021 SCr 2.0 ; BUN 20; eGFR 24 - pt has an upcoming appt with welding pantograph machine operator - avoid nephrotoxic drug - renal dose medications Assessment & Plan (10/20/2023 11:19 AM EDT): >>ASSESSMENT AND PLAN FOR CKD (CHRONIC KIDNEY DISEASE) STAGE 5, GFR LESS THAN 15 ML/MIN (CMS/HCC) WRITTEN ON 10/20/2023 11:18 AM BY SENAIT PAL MD >>ASSESSMENT AND PLAN FOR STAGE 5 CHRONIC KIDNEY DISEASE NOT ON CHRONIC DIALYSIS ([facility]) WRITTEN ON 11/12/2022 10:59 AM BY SENAIT PAL MD - CKDIII/IV - most recent lab: Dec 2021 SCr 2.0 ; BUN 20; eGFR 24 - pt has an upcoming appt with welding pantograph machine operator - avoid nephrotoxic drug - renal dose medications - obtain kidney biopsy result Assessment & Plan (10/20/2023 11:19 AM EDT): >>ASSESSMENT AND PLAN FOR CKD (CHRONIC KIDNEY DISEASE) STAGE 5, GFR LESS THAN 15 ML/MIN (CMS/HCC) WRITTEN ON 10/20/2023 11:18 AM BY SENAIT PAL MD >>ASSESSMENT AND PLAN FOR STAGE 5 CHRONIC KIDNEY DISEASE NOT ON CHRONIC DIALYSIS ([facility]) WRITTEN ON 02/26/2023 12:04 PM BY SENAIT PAL MD - CKD IV-V - most recent lab: 01/21/23 Na 145; K 2.9; Cl 108; Bicarb 24; BUN 33; Scr 3.3; eGFR 15; Ca 5.7; Phos 4.6; Glu 152 - Embroidery Supervisor: Dr. Bowden, last seen in September 2021 - avoid nephrotoxic drug - renal dose medications - scheduled appt with Dr. Bowden for 02/26/23 at 1:30 PM Assessment & Plan (10/20/2023 11:19 AM EDT): >>ASSESSMENT AND PLAN FOR CKD (CHRONIC KIDNEY DISEASE) STAGE 5, GFR LESS THAN 15 ML/MIN (CMS/HCC) WRITTEN ON 10/20/2023 11:18 AM BY SENAIT PAL MD >>ASSESSMENT AND PLAN FOR STAGE 5 CHRONIC KIDNEY DISEASE NOT ON CHRONIC DIALYSIS (CMS/[facility]) WRITTEN ON 04/29/2023 9:36 AM BY SENAIT PAL MD - CKD IV-V - most recent lab: 01/21/23 Na 145; K 2.9; Cl 108; Bicarb 24; BUN 33; Scr 3.3; eGFR 15; Ca 5.7; Phos 4.6; Glu 152 - Embroidery Supervisor: Dr. Bowden, last seen in Mar 2023 - avoid nephrotoxic drug - renal dose medications Assessment & Plan (10/20/2023 11:19 AM EDT): >>ASSESSMENT AND PLAN FOR CKD (CHRONIC KIDNEY DISEASE) STAGE 5, GFR LESS THAN 15 ML/MIN (CMS/HCC) WRITTEN ON 10/20/2023 11:18 AM BY SENAIT PAL MD >>ASSESSMENT AND PLAN FOR STAGE 5 CHRONIC KIDNEY DISEASE NOT ON CHRONIC DIALYSIS (CMS/HCC) WRITTEN ON 07/23/2023 11:57 AM BY MIRNA SNYDER - CKD IV-V - most recent lab: 01/21/23 Na 145; K 2.9; Cl 108; Bicarb 24; BUN 33; Scr 3.3; eGFR 15; Ca 5.7; Phos 4.6; Glu 152 - Embroidery Supervisor: Dr. Bowden, last seen in Mar 2023 - avoid nephrotoxic drug - renal dose medications Assessment & Plan (10/20/2023 11:19 AM EDT): >>ASSESSMENT AND PLAN FOR CKD (CHRONIC KIDNEY DISEASE) STAGE 5, GFR LESS THAN 15 ML/MIN ([facility]) WRITTEN ON 10/20/2023 11:18 AM BY SENAIT PAL MD >>ASSESSMENT AND PLAN FOR STAGE 5 CHRONIC KIDNEY DISEASE NOT ON CHRONIC DIALYSIS ([facility]) WRITTEN ON 08/25/2023 5:46 PM BY SENAIT PAL MD - CKD IV-V - Embroidery Supervisor: Dr. Bowden, last seen in July 2023 - avoid nephrotoxic drug - renal dose medications - starting dialysis soon, likely peritoneal Peripheral arterial occlusive disease 04/16/2013 Assessment & Plan (10/23/2023 11:54 AM EDT): -s/p balloon angioplasty of left SFA on 06/10/13 -s/p left big-toe amputation -previously followed by Dr. Fuchs and Dr. Courtney at [facility], last appt in Jan 2020 -currently followed by Dr. Butler, last seen on 07/10/23 -s/p left LE angioplasty on 07/10/23 -previously seen by [facility] [place] on 05/2021 -continue Plavix and ASA -discontinued cilostazol since it is contraindicated for HF -continue tramadol for claudication pain and other back / joint pain -work on risk factor management Assessment & Plan (08/25/2023 6:07 PM EDT): -s/p balloon angioplasty of left SFA on 06/10/13 -s/p left big-toe amputation -previously followed by Dr. Fuchs and Dr. Courtney at [facility], last appt in Jan 2020 -currently followed by Dr. Butler, last seen on 07/10/23 -s/p left LE angioplasty on 07/10/23 -previously seen by [facility] [place] on 05/2021 -continue Plavix and ASA -discontinue cilostazol since it is contraindicated for HF -continue tramadol for claudication pain and other back / joint pain -work on risk factor management Assessment & Plan (07/23/2023 12:32 PM EDT): -s/p balloon angioplasty of left SFA on 06/10/13 -s/p left big-toe amputation -previously followed by Dr. Fuchs and Dr. Courtney at [facility], last appt in Jan 2020 -currently followed by Dr. Butler, last seen on 07/10/23 -s/p left LE angioplasty on 07/10/23 -previously seen by [facility] [place] on 05/2021 -continue Plavix and ASA -continue cilostazol -continue tramadol for claudication pain and other back / joint pain -work on risk factor management Assessment & Plan (04/29/2023 9:35 AM EST): -s/p balloon angioplasty of left SFA on 06/10/13 -s/p left big-toe amputation -previously followed by Dr. Fuchs and Dr. Courtney at [facility], last appt in Jan 2020 -currently followed by Dr. Butler, last seen on 04/24/22 -previously seen by [facility] [place] on 05/2021 -continue Plavix and ASA -continue cilostazol -continue tramadol for claudication pain and other back / joint pain -work on risk factor management Assessment & Plan (02/25/2023 4:53 AM EST): -s/p balloon angioplasty of left SFA on 06/10/13 -s/p left big-toe amputation -previously followed by Dr. Fuchs and Dr. Courtney at [facility], last appt in Jan 2020 -currently followed by Dr. Butler, last seen on 04/24/22 -previously seen by [facility] [place] on 05/2021 -continue Plavix and ASA -continue cilostazol -continue tramadol for claudication pain and other back / joint pain -work on risk factor management Assessment & Plan (11/12/2022 10:57 AM EDT): -s/p balloon angioplasty of left SFA on 06/10/13 -s/p left big-toe amputation -previously followed by Dr. Fuchs and Dr. Courtney at [facility], last appt in Jan 2020 -currently followed by Dr. Butler, last seen on 04/24/22 -previously seen by [facility] [place] on 05/2021 -continue Plavix and ASA -continue cilostazol -continue tramadol for claudication pain and other back / joint pain -work on risk factor management Assessment & Plan (06/11/2022 8:43 AM EDT): -s/p balloon angioplasty of left SFA on 06/10/13 -s/p left big-toe amputation -previously followed by Dr. Fuchs and Dr. Courtney at [facility], last appt in Jan 2020 -currently followed by Dr. Butler, last seen on 04/24/22 -previously seen by [facility] [place] on 05/2021 -continue Plavix and ASA -continue cilostazol -continue tramadol for claudication pain and other back / joint pain -work on risk factor management Assessment & Plan (04/01/2022 12:15 PM EST): -s/p balloon angioplasty of left SFA on 06/10/13 -s/p left big-toe amputation -previously followed by Dr. Fuchs and Dr. Courtney at [facility], last appt in Jan 2020 -currently followed by Dr. Butler and [facility] [place] care on 05/2021, with [facility] RN [...] Previously on sertraline. Due to prolonged QT-c, health and wellness coordinator recommended to discontinue - Started on mirtazapine 7.5 mg at bedtime in September 2023. She reports her mood has been better and stable. - Continue mirtazapine. Assessment & Plan (08/25/2023 5:58 PM EDT): - Previously on sertraline. Due to prolonged QT-c, health and wellness coordinator recommended to discontinue - Asked our pharmacist to review her medications - will consider adding bupropion, or venlafaxine, or duloexetine (Cymbalta). Assessment & Plan (02/26/2023 12:15 PM EST): - Previously on sertraline. Due to prolonged QT-c, health and wellness coordinator recommended to discontinue - Asked our pharmacist [...] at goal today -Co-managed with our pharmacist, welding pantograph machine operator, and health and wellness coordinator -Continue working on lifestyle modifications -Continue carvedilol 12.5 mg bid -Continue hydralazine 10 mg bid, will check with pharmacist and welding pantograph machine operator whether she is still taking it -Continue amlodipine 2.5 mg daily -Continue furosemide 80 mg daily - Treatment Hx: Discontinued amlodipine 5 mg daily due to swelling, Furosemide dose was increased during recent hospitalization for HF, isosorbide was added. Spironolactone (Hx hypokalemia), but discontinued when she moved to [place]. Losartan and chlorthalidone were discontinued in May [...] at goal today -Co-managed with our pharmacist, welding pantograph machine operator, and health and wellness coordinator -Continue working on lifestyle modifications -Continue carvedilol 12.5 mg bid -Continue hydralazine -Continue furosemide 80 mg daily - Treatment Hx: Discontinued amlodipine 5 mg daily due to swelling, Furosemide dose was increased during recent hospitalization for HF, isosorbide was added. Spironolactone (Hx hypokalemia), but discontinued when she moved to [place]. Losartan and chlorthalidone were discontinued in May [...] at goal today -Co-managed with our pharmacist, welding pantograph machine operator, and health and wellness coordinator -Continue working on lifestyle modifications -Continue metoprolol tartrate 25 mg bid -Discontinued amlodipine 5 mg daily yesterday by welding pantograph machine operator due to swelling -started furosemide 40 mg daily Treatment Hx: Previously on spironolactone (Hx hypokalemia), but discontinued when she moved to [place] Losartan and chlorthalidone were discontinued in May [...] at goal today -Co-managed with our pharmacist, welding pantograph machine operator, and health and wellness coordinator -Continue working on lifestyle modifications -Continue metoprolol tartrate 25 mg bid -Continue amlodipine 5 mg daily Treatment Hx: Previously on spironolactone (Hx hypokalemia), but discontinued when she moved to [place] Losartan and chlorthalidone were discontinued in May [...] at goal today -Co-managed with our pharmacist, welding pantograph machine operator, and health and wellness coordinator -Continue working on lifestyle modifications -Continue metoprolol tartrate 25 mg bid -Continue amlodipine 5 mg daily Treatment Hx: Previously on spironolactone (Hx hypokalemia), but discontinued when she moved to [place] Losartan and chlorthalidone were discontinued in May [...] hypokalemia), but discontinued when she moved to [place] Losartan and chlorthalidone were discontinued in May [...] hypokalemia), but discontinued when she moved to [place] Losartan and chlorthalidone were discontinued in May [...] 6.7% on 10/22/23 - last seen by head nurse, Dr. Herndon in Apr 2022. - Continue [...] 08/22/23, has worsened - last seen by head nurse, Dr. Herndon in Apr 2022. - Continue [...] 6.8% on 07/23/23 - last seen by head nurse, Dr. Herndon in Apr 2022. - Continue [...] 6.9% on 10/31/22 - last seen by head nurse, Dr. Herndon in Apr 2022. - Continue [...] 8.8% on 03/29/22 - last seen by head nurse, Dr. Herndon in Apr 2022. - Continue [...] 8.8% on 03/29/22 - last seen by [facility] head nurse on 02/20/21. Refer to a new head nurse for transportation convenience. - Continue basal insulin: [...] 7.8% on 09/25/21 - last seen by [facility] head nurse on 02/20/21. Refer to a new head nurse for transportation convenience. - Continue basal insulin: [...] 7.8% on 09/25/21 - last seen by [facility] head nurse on 02/20/21. Refer to a new head nurse for transportation convenience. - Continue basal insulin: [...] Plan (06/11/2022 8:54 AM EDT): Refer to liquefaction and regasification helper Obesity 11/07/2011 03/29/2022 Encounters Date Type Department Care Team Description 05/16/2024 Refill [facility] [address] [facility], [place] [phone] Senait Pal MD Type 2 diabetes mellitus with stage 4 chronic kidney disease, with long-term current use of insulin ([facility]) 05/12/2024 Refill [facility] [address] [place] [address] Marlys Camp MD 04/24/2024 Telephone [facility] [address] [place] [address] Senait Pal MD FYI 04/17/2024 Orders Only [facility] [address] [place] [address] Senait Pal MD Dark stools (Primary Dx); Diarrhea, unspecified type; Postoperative hypothyroidism 04/17/2024 Telephone [facility] [address] [place] [address] Senait Pal MD Nurse Triage; Care Coordination 04/15/2024 Refill [facility] [address] [facility], [place] [phone] Senait Pal MD from Last 3 Months Immunizations Name [...] - Risk 60-74 years 1-dose series) 2014 Depression Screening 11/01/2023 10/31/2022, 11/01/19 23 COVID-19 Vaccine ( season) 2023 03/29/2022, 11/29/2020, 11/08/2020 Influenza Vaccine (#1) 2023 , 01/24/2022, 01/14/2020, Additional history exists Diabetes: Hemoglobin A1C 04/23/2024 024, 09/05/2023, 08/22/2023, Additional history exists SDOH Screening 07/22/2024 07/23/2023 Eye Exam 08/04/2024 08/04/2022 Diabetes: Foot Exam 08/21/2024 08/22/2023 Lipid Panel 09/04/2024 09/05/2023, 10/16, 02/17/2021, Additional history exists Alcohol/Substance Use Screening 10/21/2024 10/22/2023 Tobacco Screening 10/21/2024 10/22/2023 Mammogram 01/16/2026 01/17/2024, 09/16, 06/15/2021, Additional history exists DTaP/Tdap/Td Vaccines (4 - Td or Tdap) 06/06/2032 06/06/2022, 07/28/2021, 02/26/2011 Hepatitis B Vaccines Completed 06/17/2014, 02/09/2014, 09/15/2013 Zoster Vaccines Completed 01/14/2020, 11/10/2019 Hepatitis A Vaccines Aged Out 10/31/2022 No long er eligible based on patient's age to complete this topic Pneumococcal Vaccine: 50+ Years Completed 10/31/2022, 02/26/2011 [...] Procedure Name Priority Date/Time Associated Diagnosis Comments AMB REFERRAL TO WOUND CLINIC Routine 05/21/2024 Open wound of right great toe, initial encounter BI MAMMOGRAM SCREENING TOMOSYNTHESIS BILATERAL Routine 01/17/2024 3:00 PM EDT POCT GLYCOSYLATED HEMOGLOBIN (HGB A1C) Routine 10/22/2023 9:20 AM EDT Type 2 diabetes mellitus with diabetic peripheral angiopathy without gangrene, with long-term current use of insulin ([facility]) LIPID PANEL WITH REFLEX TO DIRECT LDL Routine 09/05/2023 3:02 PM EDT Dyslipidemia 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 chronic dialysis, with long-term current use of insulin ([facility]) DIABETES EYE EXAM Routine 08/04/2022 from Last 3 Months or Most Recently Relevant to Health Maintenance Results * Referral to Wound Clinic (05/21/2024) Senait Pal MD OUTPATIENT REFERRAL ORDERABLES E dited Result - Final * BI Mammogram Screening Tomosynthesis Bilateral (01/17/2024 3:00 PM EDT) Anatomical Region Laterality Modality Breast Bilateral Mammography 01/17/2024 3:00 PM EDT Narrative 01/27/2024 7:44 PM EST ? [facility] ? [address] [facility] ?ROBERT Gonzalez [id number] ? Mammography Report ? Signed ? Patient: Ricky So,Iris N ?MR#: ?? [id number] ? : 1955 ?Acct:[id number] ? Age/Sex: 68 / F ?ADM Date: 11//24 ? Loc: HO.MAMMO ? Attending Dr: Senait Pal MD ? Ordering Physician: Senait Pal MD ?Results: 2Benign F ?? indings ? Date of Service: 01/17/24 ?Follow Up: 1 Year From Orig ?? inal Mammogram ? Procedure(s): MM tomosynthesis screening BI ?? Accession Number(s): [id number] ? cc: Senait Pal MD ? EXAMINATION: ?? MM SCREENING DIGITAL [...] DD/ 1500 ? TD/TT: 01/17/24 1515 ? Roofing Laborer: ? Procedure Note Donotuseinterpreter, Image - 01/27/2024 [facility] [address] [place] [address] Dr. Gonzalez, ROBERT [address] Mammography Report Signed Patient: Sarah oJnes [facility]#: [id number] : 5Acct:[id number] Age/Sex: 68 / FADM Date: 01/17/24 Loc: HO.MAMMO Attending Dr: Senait Pal MD Ordering Physician: Senait Pal MDResults: 2Benign F indings Date of Service: 01/17/24Follow Up: 1 Year From Orig ina Mammogram Procedure(s): MM tomosynthesis screening BI Accession Number(s): [id number] cc: Senait Pal MD EXAMINATION: MM SCREENING DIGITAL BREAST TOMOSYNTHESIS, [...] 01/27/24 194 DD/ 1500 TD/TT: 01/17/24 1515 Roofing Laborer: us Senait Pal MD IMG BI PROCEDURES Edited Result - Final * (ABNORMAL) POCT glycosylated hemoglobin (Hgb A1c) (10/22/2023 9:20 AM EDT) Hemoglobin A1C 6.7(A) 4.0 - 6.0 % QC Media Lot # [id number] Lot# Expiration Date ,807,645 Blood Capillary blood specimen / Unknown 10/22/2023 9:20 AM EDT us Senait Pal MD POINT OF CARE TEST ENTER/EDIT OR DERABLES Final Result * (ABNORMAL) Lipid Panel with Reflex to Direct LDL (09/05/2023 3:02 PM EDT) Triglycerides 95 <150 mg/dL [facility] Comment:Desirable Triglyceri de: less than 150 mg/dLBorderline High Triglyceride 150-199 mg/dLHigh Triglyceride: 200-499 mg/dLVery High Triglyceride: greater than or equal to 5OO mg/dL Cholesterol 99 <200 mg/dL [facility] Comment:Desirable Cholestero l: less than 200 mg/dLBorderline High Cholesterol: 200-239 mg/dLHigh Cholesterol: greater than 239 mg/dL LDL Cholesterol Calculated 47 <100 mg/dL [facility] Comment:Desirable LDL: less than 100 mg/dLNear [...] 3:02 PM EDT 09/05/2023 3:03 PM EDT us Senait Pal MD LAB BLOOD ORDERABLES Final Resul t [facility] [address] [place] [address] [phone] * Diabetes Eye Exam (08/04/2022) Eye Exam Normal Normal [facility] Unassigned Pcp HEALTH MAINTENANCE Final Result from Last 3 Months or Most Recently Relevant to Health Maintenance Insurance [facility] Care Teams Lighter Captain Relationship Specialty Start Date End Date Senait Pal MD [address] [place] [address] PCP - General Family Medicine 02/22/20 Gustabo Fernandez, PharmD [address] [place] [phone] Pharmacist Internal Medicine 07/16/22 [facility] 09/14/23
--- OUTSIDE RECORDS SUMMARY | 2024-07-07 18:02 | XMS_ITS | Encounter Summary ---
Author Organization [employer] Address [address] [place] [address] Care Team Providers Care Legal Research Analyst Name Role Phone Senait Pal MD Primary Care Provider [phone] Gustabo Fernandez PharmD Unavailable [phone] Encounter Details Date Type Department Care Team ([facility] st Contact Info) Description 04/17/2024 Orders Only [facility] [address] [place], [place] [phone] Senait Pal MD [address] [place], [place] [phone] Dark stools (Primary Dx); Diarrhea, unspecified type; [...] documented as of this encounter Care Teams Legal Research Analyst Relationship Specialty Start Date End Date Senait Pal MD [address] [place] [address] PCP - General Family Medicine 02/22/20 Gustabo Fernandez PharmD [address] [place] [address] Pharmacist Internal Medicine 07/16/22 [facility] 09/14/23 documented as of this encounter
--- OUTSIDE RECORDS SUMMARY | 2024-07-07 18:02 | XMS_ITS | Encounter Summary ---
Author Organization [employer] Address [address] [facility] 7t [place] [address] Care Team Providers Care Floral Associate Name Role Phone Senait Pal MD Primary Care Provider [phone] Gustabo Fernandez PharmD Unavailable [phone] Encounter Details Date Type Department Care Team ([facility] st Contact Info) Description 08/09/2022 [facility] [address] [place] [address] Senait Pal MD [address] [place] [address] Social History Tobacco Use Types Packs/Day Years [...] on filedocumented in this encounter Care Teams Floral Associate Relationship Specialty Start Date End Date Senait Pal MD [address] [place] [address] PCP - General Family Medicine 02/22/20 Gustabo Fernandez, HarshaD [address] [place] [address] Pharmacist Internal Medicine 07/16/22 [facility] 09/14/23 documented as of this encounter
--- OUTSIDE RECORDS SUMMARY | 2024-07-07 18:02 | XMS_ITS | Encounter Summary ---
Author Organization [employer] Address [address] [place] [address] Care Team Providers Care Machine Bunch Maker Name Role Phone Senait Pal MD Primary Care Provider [phone] Gustabo Fernandez PharmD Unavailable [phone] Reason for Visit * Reason Onset Date Comments Other 11/21/2022 Results 11/21/2022 Encounter Details Date Type Department Care Team (Late st Contact Info) Description 11/21/2022 Telephone [facility] [address] [place] [address] Senait Pal MD [address] [place], [place] [phone] Other; Results Social History Tobacco Use Types [...] requesting results from kidney biopsy. Please call [phone]. documented in this encounter Plan of Treatment [...] documented as of this encounter Care Teams Machine Bunch Maker Relationship Specialty Start Date End Date Senait Pal MD [address] [place] [address] PCP - General Family Medicine 02/22/20 Gustabo Fernandez, PharmD [address] [place] [address] Pharmacist Internal Medicine 07/16/22 [facility] 09/14/23 documented as of this encounter
--- OUTSIDE RECORDS SUMMARY | 2024-07-07 18:02 | XMS_ITS | Encounter Summary ---
Author Organization [employer] Address [address] [place] [address] Care Team Providers Care Paper Sealer Name Role Phone Senait Pal MD Primary Care Provider [phone] Gustabo Fernandez PharmD Unavailable [phone] Encounter Details Date Type Department Care Team ([facility] st Contact Info) Description 02/26/2023 Orders Only [facility] [address] [place], [place] [phone] Senait Pal MD [address] [place], [place] [phone] Social History Tobacco Use Types Packs/Day Years [...] EST) Vitamin D, 25-OH, D2 <4 ng/mL [facility] Comment:This test was reagan cerda and its analytical performancecharacteristics have been determined by [employer] [place], [place]. It hasnot been cleared or approved by the U.S. Food and DrugAdministration. This assay has been validated pursuantto the CLIA regulations and is used for clinicalpurposes.THIS TEST WAS PERFORMED AT:[facility] [place] [phone] AVILA MD,PHD Vitamin D, 25-OH, D3 47 ng/mL [facility] Comment:This test was develo ped and its analytical performancecharacteristics have been determined by [facility] [place], [place]. It hasnot been cleared or approved by the U.S. Food and DrugAdministration. This assay has been validated pursuantto the CLIA regulations and is used for clinicalpurposes. Vitamin D, 25-OH, Total 47 30 - 100 ng/mL [facility] Comment:Vitamin D, 25-Hydrox y reports concentrations [...] = 30 ng/mL.For additional information, please refer tohttp://education.Synchrony/faq/FTD716(This link is being provided for informational/educational purposes only.) 02/26/2023 2:25 PM EST 02/26/2023 2:25 PM EST us Generic External Data Provider LAB BLOOD ORDERAB LES Final Result [facility] [address] [place] [phone] * (ABNORMAL) Calcium, Ionized (02/26/2023 2:25 PM EST) Calcium, Ionized 3.6(A) 4.7 - 5.5 mg/dL [facility] Comment:THIS TEST WAS PERFOR MED AT:[facility] [place] [id number] RAHMAN MD 02/26/2023 2:25 PM EST 02/26/2023 2:25 PM EST us Generic External Data Provider LAB BLOOD ORDERAB LES Final Result Performing Organization Address [facility] Co de Phone Number [facility] [address] [place] [address] [phone] * (ABNORMAL) PTH, Intact Without Calcium (02/26/2023 2:25 PM EST) Parathyroid Hormone, Intact 135.0(H) 8.7 - 77.1 pg/mL [facility] 02/26/2023 2:25 PM EST 02/26/2023 2:25 PM EST Generic External Data Provider LAB BLOOD ORDERAB LES Final Result Performing Organization Address [facility] Phone Number [facility] [address] [place] [phone] documented in this encounter Visit Diagnoses Not on filedocumented in this encounter Additional Health Concerns Assessment Noted Time PHQ-9 Depression Total Score: 7 11/01/19 23 11:04 AM EDT documented as of this encounter Care Teams Paper Sealer Relationship Specialty Start Date End Date Senait Pal MD [address] [place] [address] PCP - General Family Medicine 02/22/20 Gustabo Fernandez, HarshaD [address] [place] [address] Pharmacist Internal Medicine 07/16/22 [facility] 09/14/23 documented as of this encounter
--- OUTSIDE RECORDS SUMMARY | 2024-07-07 18:02 | XMS_ITS | Encounter Summary ---
Author Organization [employer] Address [address] [place] [address] Care Team Providers Care Sleeve Sewer Name Role Phone Senait Pal MD Primary Care Provider Gustabo Fernandez PharmD Unavailable [phone] Reason for Visit * Reason Onset Date Comments Durable Medical Equipment 10/01/2023 Encounter Details Date Type Department Care Team (Late st Contact Info) Description 10/01/2023 Telephone [facility] [address] [place], [place] [phone] Senait Pal MD [address] [place], [place] [phone] Durable Medical Equipment Social History Tobacco Use [...] 12:24 PM EDT Tc from [place]angela at [facility] calling to request DME raised toilet seat transfer tub bench Please fax to [phone] documented in this encounter Plan of Treatment [...] documented as of this encounter Care Teams Sleeve Sewer Relationship Specialty Start Date End Date Senait Pal MD [address] [place] [address] PCP - General Family Medicine 02/22/20 Gustabo Fernandez PharmD [address] [place] [address] Pharmacist Internal Medicine 07/16/22 [facility] 09/14/23 documented as of this encounter
--- OUTSIDE RECORDS SUMMARY | 2024-07-07 18:02 | XMS_ITS | Encounter Summary ---
Author Organization [employer] Address [address] [facility] [address] [place] [address] Care Team Providers Care Linter Saw Sharpener Name Role Phone Senait Pal MD Primary Care Provider [phone] Gustabo Fernandez PharmD Unavailable [phone] Reason for Referral * Medications - Closed Specialty Diagnoses / Procedures Referred By Paul osborne Referred To Contact Diagnoses Type 2 diabetes mellitus with diabetic peripheral angiopathy without gangrene, with long-term current use of insulin (CMS/HCC) 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 chronic dialysis, with long-term current use of insulin (CMS/HCC) Senait Pal MD [address] [place] [address] Phone: tel: fax: Referral ID Status Reason Start Date Expiration Date Visits Re quested Visits Authorized [id number] Closed 1 1 * Medications - Closed Specialty Diagnoses / Procedures Referred By Paul osborne Referred To Contact Diagnoses Type 2 diabetes mellitus with diabetic peripheral angiopathy without gangrene, with long-term current use of insulin (CMS/HCC) 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 chronic dialysis, with long-term current use of insulin (CMS/HCC) Senait Pal MD [address] [place] [address] Phone: tel: fax: Referral ID Status Reason Start Date Expiration Date Visits Re quested Visits Authorized [id number] Closed 1 1 Encounter Details Date Type Department Care Team (Late st Contact Info) Description 09/24/2023 Orders Only [facility] [address] [place] [address] Senait Pal MD [address] [place] [address] Type 2 diabetes mellitus with diabetic peripheral [...] gangrene, with long-term current use of insulin ([facility])- Primary 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 chronic dialysis, with long-term current use of insulin (CMS/[facility]) Pain in both lower extremities documented in this encounter Additional Health Concerns Assessment Noted Time PHQ-9 Depression Total Score: 7 11/01/19 23 11:04 AM EDT documented as of this encounter Care Teams Linter Saw Sharpener Relationship Specialty Start Date End Date Senait Pal MD [address] [place] [address] PCP - General Family Medicine 02/22/20 Gustabo Fernandez, HarshaD [address] [place] [address] Pharmacist Internal Medicine 07/16/22 [facility] 09/14/23 documented as of this encounter
--- OUTSIDE RECORDS SUMMARY | 2024-07-07 18:02 | XMS_ITS | Encounter Summary ---
Author Organization [employer] Address [address] [place] [address] Care Team Providers Care Supervisor Home Economics Name Role Phone Senait Pal MD Primary Care Provider [phone] Gustabo Fernandez PharmD Unavailable [phone] Reason for Referral * Consultation (STAT) - Closed Specialty Diagnoses / Procedures Referred By Contac t Referred To Contact Neurology Diagnoses Hearing loss of left ear, unspecified hearing loss type Meningioma (CMS/HCC) Senait Pal MD [address] [place], [place] Phone: tel: fax: Bianca Lockett MD [address] [place] [address] [place] [address] Phone: tel: fax: Referral ID Status Reason Start Date Expiration Date V isits Requested Visits Authorized [id number] Closed Specialty Services Required 01/15/2024 01/14/2025 1 1 Encounter Details Date Type Department Care Team (Late st Contact Info) Description 01/15/2024 Orders Only [facility] [address] [place] [address] Senait Pal MD [address] [place], [place] Hearing loss of left ear, unspecified [...] documented as of this encounter Care Teams Supervisor Home Economics Relationship Specialty Start Date End Date Senait Pal MD [address] [place] [address] PCP - General Family Medicine 02/22/20 Gustabo Fernandez PharmD [address] [place] [address] Pharmacist Internal Medicine 07/16/22 [facility] 09/14/23 documented as of this encounter
--- OUTSIDE RECORDS SUMMARY | 2024-07-07 18:02 | XMS_ITS | Encounter Summary ---
Author Organization [employer] Address [address] [place] [address] Care Team Providers Care Senior Contract Specialist Name Role Phone Senait Pal MD Primary Care Provider [phone] Gustabo Fernandez PharmD Unavailable [phone] Reason for Visit * Reason Onset Date Comments Referral 04/05/2022 Encounter Details Date Type Department Care Team (Late st Contact Info) Description 04/05/2022 Telephone [facility] [address] [place], [place] [phone] Senait Pal MD [address] [place], [place] [phone] Referral Social History Tobacco Use Types Packs/Day [...] for aallergist specialist Please contact pt at [phone] documented in this encounter Plan of Treatment Not on file documented as of this encounter Visit Diagnoses Not on filedocumented in this encounter Care Teams Senior Contract Specialist Relationship Specialty Start Date End Date Senait Pal MD [address] [place] [address] PCP - General Family Medicine 02/22/20 Gustabo Fernandez, Agnes [address] [place] [address] Pharmacist Internal Medicine 07/16/22 [facility] 09/14/23 documented as of this encounter
--- OUTSIDE RECORDS SUMMARY | 2024-07-07 18:02 | XMS_ITS | Encounter Summary ---
Author Organization [employer] Address [address] [facility] [address] 7t [place] [address] Care Team Providers Care Grocery Supervisor Name Role Phone Senait Pal MD Primary Care Provider [phone] Gustabo Fernandez PharmD Unavailable [phone] Encounter Details Date Type Department Care Team ([facility] st Contact Info) Description 10/30/2023 Orders Only [facility] MEDICINE [address] [place], [place] [phone] Senait Pal MD 230 [place], [place] [phone] Social History Tobacco Use Types Packs/Day Years [...] documented as of this encounter Care Teams Grocery Supervisor Relationship Specialty Start Date End Date Senait Pal MD 230 [place] [address] PCP - General Family Medicine 02/22/20 Gustabo Fernandez PharmD 230 [place] [address] Pharmacist Internal Medicine 07/16/22 [facility] 09/14/23 documented as of this encounter
--- OUTSIDE RECORDS SUMMARY | 2024-07-07 18:02 | XMS_ITS | Clinical Summary ---
Demographics Address [address] [place] [address] [address] [place] [address] Home Phone Preferred Language es Marital Status Unknown Holiness Affiliation Unknown Race White Ethnic Group Unknown Author Organization [facility] Address [address] [place] [address] Phone Care Team Providers Care Mortgage Loan Counselor Name Role Phone Senait Pal MD Primary Care Provider [phone] Allergies Active Allergy Reactions Criticality Noted Date [...] Comments Breast Cancer Screening 1955 Pneumococcal Vaccine: 50+ Ye ars (1 of 2 - PCV) 1973 Colorectal Cancer Screening: Annual FOBT 08/14/2003 Colorectal Cancer Screening: Colonoscopy 08/14/2003 Colorectal Cancer Screening: Sigmoidoscopy 08/14/2003 Diabetes: Hemoglobin A1C 04/17/2020 Diabetes: Ophthalmology Exam 04/17/2020 Diabetes: Pedal Pulse Checked 04/17/2020 Diabetes: Sensory Foot Exam 04/17/2020 Diabetes: Visual Foot Exam 04/17/2020 Influenza Vaccine (Season Ended) 2024 Hepatitis B Vaccine Aged Out No longe r eligible based on patient's age to complete this [place] [address] ([id number]) MARYELLEN SPENCER [id number] [facility] ([id number]) MARYELLEN SPENCER [phone] Care Teams Mortgage Loan Counselor Relationship Specialty Start Date End Date Senait Pal MD PCP - General 03/28/20
--- OUTSIDE RECORDS SUMMARY | 2024-07-07 18:02 | XMS_ITS | Encounter Summary ---
Author Organization [employer] Address [address] [facility] [address] 7t [place] [address] Care Team Providers Care Core Winder Name Role Phone Senait Pal MD Primary Care Provider [phone] Gustabo Fernandez PharmD Unavailable [phone] Reason for Visit * Reason Comments Med Refill Encounter Details Date Type Department Care Team ([facility] st Contact Info) Description 03/23/2024 Refill [facility] MEDICINE [address] [place], [place] [phone] Senait Pal MD 230 [place], [place] [phone] Social History Tobacco Use Types Packs/Day Years [...] documented as of this encounter Care Teams Core Winder Relationship Specialty Start Date End Date Senait Pal MD [address] [place] [address] PCP - General Family Medicine 02/22/20 Gustabo Fernandez, HarshaD [address] [place] [phone] Pharmacist Internal Medicine 07/16/22 [facility] 09/14/23 documented as of this encounter
--- OUTSIDE RECORDS SUMMARY | 2024-07-07 18:02 | XMS_ITS | Data Portability ---
Author Organization [employer] [place] [email or web address] Address [address] [place] [address] Care Team Providers Care Feller Hand Name Role Phone HIM CCA OTHER Assessment [...] PCP. The patient agreed with this plan. [email or web address] Not available 11/01/2021 19:13:25 08/29/2022 08/29/2022 As noted, we were called to see this patient regarding concerns of cellulitis of the left lower leg Evaluation in the field was performed by my behavioral health specialist colleague, as noted above, I provided real-time [...] Lab BMP, serum or plasma 2023 024 [facility], [address] [place] [address], [id number] 4 20:52:48 hemoglobin + hematocrit, blood 2023 024 [facility], [address] [place] [address], [id number] 4 20:51:45 Referral None recorded. Procedures None recorded. Surgeries None recorded. Imaging None recorded. Medication Orders sodium chloride 0.9 % intravenous solution 2023 024 [facility], [address] [place] [address], [id number], 4 20:51:12 doxycycline hyclate 100 mg capsule 2022 023 [email or web address] Not available 3 15:43:21 doxycycline hyclate [address] [facility], [address] [place] [address], [id number], 3 15:51:20 Patient TargetsNo targets recorded. Patient InstructionsNo instructions recorded. Reason for Referral None Reported. Results Created Date Observation Date Name Description Value Unit Range Abnormal Flag Note LastModifiedBy Organization Detail LastModifiedTime 09/07/19 24 09/07/2023 BMP, serum or plasm a BUN 124 Not Available Main - Ins [address], [id number] 09/07/2023 20:50:35 09/07/19 24 09/07/2023 BMP, serum or plasm a Ca 0.52 Not Available [facility] [address], [address] 09/07/2023 20:50:35 09/07/19 24 09/07/2023 BMP, serum or plasm a CI- 103 Not Available [facility] - [facility] [address], [address] 09/07/2023 20:50:35 09/07/19 24 09/07/2023 BMP, serum or plasm a CRE 8.1 Not Available [facility] - [facility] [address], [address] 09/07/2023 20:50:35 09/07/19 24 09/07/2023 BMP, serum or plasm a GLU 267 Not Available [facility] [address], [address] 09/07/2023 20:50:35 09/07/19 24 09/07/2023 BMP, serum or plasm a K+ 3.0 Not Available [facility] - [facility] [address], [address] 09/07/2023 20:50:35 09/07/19 24 09/07/2023 BMP, serum or plasm a Na+ 140 Not Available [facility] - [facility] [address], [address] 09/07/2023 20:50:35 09/07/19 24 09/07/2023 BMP, serum or plasm a tCO2 18 Not Available [facility] - [facility] [address], [address] 09/07/2023 20:50:35 09/07/19 24 09/07/2023 hemog lobin + hemat ocrit , blood Hemoglobin 9.5 Not Available Main - [address], [address] 09/07/2023 20:51:28 09/07/19 24 09/07/2023 hemog lobin + hemat ocrit , blood Hematocrit 28 Not Available [address], [address] 09/07/2023 20:51:28 Result Notes None recorded. Medical [...] Ultra-Fine Isabella Pen Needle 32 gauge x 5/32 USE FOUR TIMES DAILY WITH LANTUS AND [...] Address Organization Details Last Updated DateTime 3 46683.7 6 g 16 /min 99 % 99 % 97.8 [degF] 75 /min 151 mm[Hg] 71 mm[Hg] Not Available [employer] 3 15:40:42 Date Recorded Heart rate Oxygen saturation Oxygen saturation in Arterial blood by Pulse oximetry Respiratory rate Body temperature Systolic blood pressure Diastolic blood pressure Provider Name and Address Organization Details Last Updated DateTime 4 67 /min 100 % 100 % 16 /min 97.5 [degF] 113 mm[Hg] 60 mm[Hg] Not Available [employer] 4 20:36:59 Date Recorded Heart rate Oxygen saturation Oxygen saturation in Arterial blood by Pulse oximetry Respiratory rate Body temperature Systolic blood pressure Diastolic blood pressure Provider Name and Address Organization Details Last Updated DateTime 2 84 /min 99 % 99 % 18 /min 97.8 [degF] 137 mm[Hg] 65 mm[Hg] Not Available [employer] 2 19:10:22 Social History None recorded. Functional Status None recorded. Mental Status None recorded. Family History Nothing Reported. Medical History No medical history recorded. Gynecological HistoryNo gynecological history recorded. Obstetrics History GPAL:G 0 P 0 0 0 0 Past Encounters Encounter ID Performer Location Encounter Start Date Encounter Closed Date Diagnosis/Indication Diagnosis SNOMED-CT Code Diagnosis ICD10 Code Diagnosis Note [id number] Kermit Tomas MD [facility] - [address] [address] 11/01/2021 19:10:19 11/01/2021 19:13:43 [id number] Noe Cortes MD Main - instED [address] [place] [address] 08/29/2022 15:40:31 08/30/2022 10:51:33 Cellulitis of lower limb 099615063 L03.119 [id number] CEDRICK BELLO MD [facility] - [address] [address] 09/07/2023 19:32:58 09/08/2023 16:45:57 Sjway-rr-pjihrqp renal failure 129048026 N17.9 Evaluation in the field was performed by my behavioral health specialist colleague, as noted above, I provided real-time [...] RA, T 98.3 Exam : Mildly decreased supervisor shop on the left hand but no other [...] ml-Unable to tolerate PO Kcl-expect called at [facility] Primary care, consider__ _ Dispositio n: ED Health Concerns Section Related Observation LastModified by Organization Detai ls LastModified Time None Recorded Concern Status LastModified by Organization Details LastModified Time None Recorded Advance Directives Directive None Recorded Payers Encounter Date Sequence Insurance Name Policy Number Policy Camacho Covered Member ID Camacho Member ID Guarantor Name 11/01/2021 1 [facility] PRIOR TO 2022 - DUAL ELIGIBLE (MEDICARE REPLACEMENT/AD VANTAGE - HMO) Sarah García [id number] Sarah García 08/29/2022 1 [facility] DOS ON OR AFTER 2022 - DUAL ELIGIBLE - INTERMEDIATE OPTIONS AND ONE CARE (MEDICARE REPLACEMENT/AD VANTAGE - HMO) Sarah García [id number] Sarah García 09/07/2023 1 [employer] [facility] - DOS ON OR AFTER 2022 - DUAL ELIGIBLE - INTERMEDIATE OPTIONS AND ONE CARE (MEDICARE REPLACEMENT/AD VANTAGE - HMO) Sarah García [id number] Sarah García Notes Date Note Type Note Provider Name and Address Organization Details Recorded Time 11/01/2021 text/html HPI: Alergies-sandra inhibtors: cough and cilostazol: cough. Member reported fever and chills with weakness x 3 days, stated tested negative for Covid with home test. Questions UTI, but asymptomatic other than the above. Slovak speaker. Member is 66 yo, has thyroid cancer, DM, HTN, Ischemic cardiac disease, DM and Asthma. Denied having respiratory or GI/ sx. ................... ................... ................... ................... ................... ................... ................... ........ CRC Nursing Assessment: Comments: CRC RN DID NOT NEED FURTHER INFO TO PROCESS VISIT ................... ................... ................... ................... ................... ................... ................... ........ Clothes Model Note: Pt states she feels tired and sick with the chills but only at night. Pt admits Tylenol helps with chills. Pt denies chest pain/coughing/sneez ing/SOB and states she currently feels normal. UA negative for UTI, blood glucose 95. Pt states she has been drinking water without issues. Skin turgor good. Pt well appearing. [facility] contacted. Red flags discussed ................... ................... ................... ................... ................... ................... ................... ........ Disposition: Fulfilled Kermit Tomas MD [address] [facility], [place], [address], [employer] 11/01/2021 19:13:41 08/29/2022 text/html HPI: CCA calling [...] ................... ................... ................... ................... ................... ................... ........ Clothes Model Note From Victor Manuel Gilmore: Pt CO [...] ................... ........ Disposition: Fulfilled Noe Cortes MD [address] [place] [address],[address], [place], [phone], [employer] 08/29/2022 16:20:09 09/07/2023 text/html CRC Nurse Triage Notes (George Gil): Chief Complaints: Syncope/Dizziness/L ightheadedness, Weakness/Lethargy PMH: Amputation, Diabetes, COPD/Asthma, Hypertension, Heart Disease Allergies: Unknown Comments: Php Software Engineer verified the member's name//address and phone number. [...] emergency treatment if needed -Socorro Gil RN Clothes Model POC Test Results from Tamra Smith Ruddy CHANEL iSTAT Chem8+ (20:37:25) Na: 140 mEq/L K: 3.0 mEq/L Cl: 103 mEq/L iCa: 0.52 mmol/L TCO2: 18 mmol/L Glu: 267 mg/dL BUN: 124 mg/dL Crea: 8.1 mg/dL Hct: 28 % Hb: 9.5 g/dL A ................... ................... ................... ................... ................... ................... ................... ........ Clothes Model Note From Tamra Smith: [facility] Clothes Model Kelsie Smith SC6 dispatched to a red for a 68 yof C/O dizziness. Upon [...] and SOB on exertion, and had weak supervisor shop strength in her left hand. Blood sugar 324. Pt used 13U tresiba nightly, and had not started any new meds recently. She was instructed by her Geography Teacher in the past week to DC her lasix, and stated she performed lab work in the past week through her Nephrology office. [facility] consulted; #20 IV placed in her left AC, BMP acquired, and she was given 500 mL NS. BUN and creatinine were critically high; [facility] was consulted again, and pt was informed that she must be transported to the ED immediately. Pt agreed and 911 was called. [facility] arrived and transported her to [place] ED. ................... ................... ................... ................... ................... ................... ................... ........ Disposition: Fulfilled CEDRICK BELLO MD [address] [place] [address],[address] [facility], [place], [address], ROBERT - [facility] 09/07/2023 21:09:47 OBGyn Episode No OBEpisode recorded.
--- OUTSIDE RECORDS SUMMARY | 2024-07-07 18:02 | XMS_ITS | Encounter Summary ---
Author Organization [employer] Address [address] [facility] [facility] [address] 7t [place] [address] Care Team Providers Care Traffic Workforce Representative Name Role Phone Senait Pal MD Primary Care Provider [phone] Gustabo Fernandez PharmD Unavailable [phone] Encounter Details Date Type Department Care Team (Late st Contact Info) Description 06/11/2022 Abstract [facility] MEDICINE 230 [place], [place] [phone] Senait Pal MD 230 [place], [place] [phone] Social History Tobacco Use Types Packs/Day Years [...] on filedocumented in this encounter Care Teams Traffic Workforce Representative Relationship Specialty Start Date End Date Senait Pal MD [address] [place], [place] [phone] PCP - General Family Medicine 02/22/20 Gustabo Fernandez, PharmD 230 [place] [address] Pharmacist Internal Medicine 07/16/22 [facility] 09/14/23 documented as of this encounter
--- OUTSIDE RECORDS SUMMARY | 2024-07-07 18:02 | XMS_ITS | Encounter Summary ---
Author Organization [employer] Address [address] [facility] [address] [address] [place] [address] Care Team Providers Care Shell Maker Lockstitch Name Role Phone Senait Pla MD Primary Care Provider [phone] Gustabo Fernandez PharmD Unavailable [phone] Reason for Visit * Reason Comments Med Refill Encounter Details Date Type Department Care Team ([facility] st Contact Info) Description 10/09/2023 Refill [facility] MEDICINE 230 [place], [place] [phone] Senait Pal MD 230 [place], [place] [phone] Type 2 diabetes mellitus with stage 4 chronic kidney disease, with long-term current use of insulin ([facility]) Social History Tobacco Use Types [...] disease, with long-term current use of insulin ([facility]) documented in this encounter Additional Health Concerns Assessment Noted Time PHQ-9 Depression Total Score: 7 11/01/19 23 11:04 AM EDT documented as of this encounter Care Teams Shell Maker Lockstitch Relationship Specialty Start Date End Date Senait Pal MD [address] [place] [address] PCP - General Family Medicine 02/22/20 Gustabo Fernandez PharmD 230 [place] [address] Pharmacist Internal Medicine 07/16/22 [facility] 09/14/23 documented as of this encounter
== END 2024-07-07 15:21 | disposition home or self-care (01) ==
LOC: HO.HKA 15:05
PROVIDERS: PCP Family Medicine; Visit Provider Internal Medicine Hypertension Specialist
DX: N18.6 End stage renal disease (principal); Z99.2 Dependence on renal dialysis
CPT/HCPCS: 99024

== ENCOUNTER → 2024-07-07 15:05 | Outpatient (BNVA) | payer OTHER, SELFPAY | PROVIDERS: PCP Family Medicine; Visit Provider Internal Medicine Hypertension Specialist | DX: N18.6 End stage renal disease (principal); Z99.2 Dependence on renal dialysis | CPT/HCPCS: 99212 ==

== ENCOUNTER → 2024-07-16 | Outpatient (BNV) | payer OTHER, SELFPAY | PROVIDERS: PCP Family Medicine; Visit Provider Internal Medicine Hypertension Specialist | DX: N18.6 End stage renal disease (principal) | CPT/HCPCS: 90962 ==

== ENCOUNTER 2024-07-28 14:11 | Outpatient (AMB) | payer OTHER, SELFPAY ==
--- NOTE | 2024-07-28 14:10 | HO.NEPHOV_ITS ---
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) Hypothyroidism associated with surgical procedure (~2008) Uncontrolled type 2 diabetes mellitus with hyperglycemia (~1986) Pneumonitis ARDS (adult respiratory distress syndrome) Neuropathy Asthma-COPD overlap syndrome Anemia HTN (hypertension) Hypercholesteremia Surgical History History of thyroidectomy History of back surgery History of 2 sections History of angioplasty History of amputation of left great toe Family History Mother Hypertension Diabetes Father AA (alcohol abuse) Social History Household Members: Family Housing: Apartment Do you presently have 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 or other home services: Yes (FINANCE ADMIN) Alcohol intake: never 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 Tobacco Use Status: Former Tobacco user Years Smoked: 45 Advance Directives Date on File: 09/13/20 service: No Current occupational status: disabled Telehealth Telehealth Telehealth Platform: Telephone Location of provider rendering services: practice address Location of patient: address on file Patient Identification confirmed using: Name, : Yes Telehealth method: voice only Patient verbally consented to treatment: Yes Patient verbally consented to billing insurance company: Yes Patient informed of any privacy concerns related to visit: Yes Results Reviewed Nephrology Results: Hgb 5.3 g/dl (12.0-16.0) L* 04/22/24 WBC 7.1 X10*3/uL (4.8-10.8) 04/22/24 Plt Count 182 X10*3/uL (160-400) 04/22/24 Sodium 138 mmol/L (135-145) 04/22/24 Potassium 3.5 mmol/L (3.3-5.1) 04/22/24 Chloride 105 mmol/L (96-108) 04/22/24 Carbon Dioxide 25 mmol/L (22-29) 04/22/24 BUN 37 mg/dL (9-16) H 04/22/24 Creatinine 3.04 mg/dL (0.5-1.4) H 04/22/24 Calcium 4.2 mg/dL (8.4-10.2) L* 04/22/24 Phosphorus 5.0 mg/dL (2.7-4.5) H 04/22/24 Assessment & Plan Assessment & Plan (1) ESRD needing dialysis: Code(s): N18.6 - End stage renal disease; Z99.2 - Dependence on renal dialysis Category: Medical Plan See EMR Notes Coding Level of Care Code Global (76848) Diagnoses ESRD needing dialysis N18.6; Z99.2
--- OUTSIDE RECORDS SUMMARY | 2024-07-28 15:24 | XMS_ITS | Encounter Summary ---
Author Organization [employer] Address [address] [facility] 7t [place] [address] Care Team Providers Care Carton Wrapper Name Role Phone Senait Pal MD Primary Care Provider Gustabo Fernandez PharmD Unavailable [phone] Reason for Visit * Reason Comments Med Refill Encounter Details Date Type Department Care Team (Late Contact Info) Description 11/12/2022 Refill [facility] [address] [place], [place] [phone] Senait Pal MD [address] [place] [phone] Social History Tobacco Use Types Packs/Day Years [...] as of this encounter Plan of Treatment Upcoming Encounters Date Type Department Care Team ([facility] Contact Info) Description 08/24/2024 1:00 PM EDT Office Visit [facility] MEDICINE [address] [place] [phone] Senait Pal MD [address] [place] [phone] documented as of this encounter Goals Goal [...] documented as of this encounter Care Teams Carton Wrapper Relationship Specialty Start Date End Date Senait Pal MD 230 [place] [address] PCP - General Family Medicine 02/22/20 Gustabo Fernandez PharmD [address] [place] [address] Pharmacist Internal Medicine 07/16/[address] [facility] 09/14/23 documented as of this encounter
--- OUTSIDE RECORDS SUMMARY | 2024-07-28 15:24 | XMS_ITS | Encounter Summary ---
Author Organization [employer] Address [address] [facility] 7[address] [place] [address] Care Team Providers Care Vending Stand Supervisor Name Role Phone Senait Pal MD Primary Care Provider [phone] Gustabo Fernandez PharmD Unavailable [phone] Encounter Details Date Type Department Care Team ([facility] st Contact Info) Description 02/26/2023 Orders Only [facility] MEDICINE [address] [place], [place] [phone] Senait Pal MD [address] [place], [place] [phone] Social History Tobacco Use Types Packs/Day Years [...] Upcoming Encounters Date Type Department Care Team (Late st Contact Info) Description 08/24/2024 1:00 PM EDT Office Visit [facility] [address] [place], [place] [phone] Senait Pal MD [address] [place], [place] [phone] documented as of this encounter Goals Goal [...] EST) Vitamin D, 25-OH, D2 <4 ng/mL [facility] Comment:This test was reagan cerda and its analytical performancecharacteristics have been determined by [employer] [place], [place]. It hasnot been cleared or approved by the U.S. Food and DrugAdministration. This assay has been validated pursuantto the CLIA regulations and is used for clinicalpurposes.THIS TEST WAS PERFORMED AT:[employer] [id number] [place] [address]UZHWHDCCONNIE AVILA MD,PHD Vitamin D, 25-OH, D3 47 ng/mL [facility] Comment:This test was develo ped and its analytical performancecharacteristics have been determined by [employer] [place], [place]. It hasnot been cleared or approved by the U.S. Food and DrugAdministration. This assay has been validated pursuantto the CLIA regulations and is used for clinicalpurposes. Vitamin D, 25-OH, Total 47 30 - 100 ng/mL [facility] Comment:Vitamin D, 25-Hydrox y reports concentrations [...] = 30 ng/mL.For additional information, please refer tohttp://education.[employer] UG/faq/PXS101(This link is being provided for informational/educational purposes only.) 02/26/2023 2:25 PM EST 02/26/2023 2:25 PM EST us Generic External Data Provider LAB BLOOD ORDERAB LES Final Result [facility] [address] [place] [phone] * (ABNORMAL) Calcium, Ionized (02/26/2023 2:25 PM EST) Calcium, Ionized 3.6(A) 4.7 - 5.5 mg/dL [facility] Comment:THIS TEST WAS PERFOR MED AT:[employer] [place] [id number] RAHMAN MD 02/26/2023 2:25 PM EST 02/26/2023 2:25 PM EST Generic External Data Provider LAB BLOOD ORDERAB LES Final Result Performing Organization Address [facility] Co de Phone Number [facility] [address] [place] [phone] * (ABNORMAL) PTH, Intact Without Calcium (02/26/2023 2:25 PM EST) Parathyroid Hormone, Intact 135.0(H) 8.7 - 77.1 pg/mL [facility] 02/26/2023 2:25 PM EST 02/26/2023 2:25 PM EST Generic External Data Provider LAB BLOOD ORDERAB LES Final Result Performing Organization Address [facility] de Phone Number [facility] [address] [place] [phone] documented in this encounter Visit Diagnoses Not on filedocumented in this encounter Additional Health Concerns Assessment Noted Time PHQ-9 Depression Total Score: 7 11/01/19 23 11:04 AM EDT documented as of this encounter Care Teams Vending Stand Supervisor Relationship Specialty Start Date End Date Senait Pal MD [address] [place] [address] PCP - General Family Medicine 02/22/20 Gustabo Fernandez, HarshaD [address] [place] [address] Pharmacist Internal Medicine 07/16/22 [facility] 09/14/23 documented as of this encounter
--- OUTSIDE RECORDS SUMMARY | 2024-07-28 15:24 | XMS_ITS | Encounter Summary ---
Demographics Address [address] [place] [address] Home Phone Preferred Language es Marital Status Unknown Church Affiliation Unknown Race White Ethnic Group Unknown Author Organization [facility] Address [address] [place] [address] Phone Care Team Providers Care Electrical Products Engineer Name Role Phone Senait Pal MD Primary Care Provider [phone] Encounter Details Date Type Department Care Team (Late st Contact Info) Description 06/08/2020 Orders Only [facility] [address] [place] [address] ProviderJesus MD [address] [place] [address] Social History Tobacco Use Types [...] on filedocumented in this encounter Care Teams Electrical Products Engineer Relationship Specialty Start Date End Date Senait Pal MD PCP - General 03/28/20 documented as of this encounter
--- OUTSIDE RECORDS SUMMARY | 2024-07-28 15:24 | XMS_ITS | Encounter Summary ---
Author Organization [employer] Address [address] [place] [address] Care Team Providers Care Vessel Ordinary Seaman Name Role Phone Senait Pal MD Primary Care Provider [phone] Gustabo Fernandez PharmD Unavailable [phone] Reason for Visit * Reason Onset Date Comments Durable Medical Equipment 12/10/2022 Encounter Details Date Type Department Care Team (Late st Contact Info) Description 12/10/2022 Telephone [facility] [address], [place] [phone] Senait Pal MD [address] [place], [place] [phone] Durable Medical Equipment Social History Tobacco Use [...] documented in this encounter Plan of Treatment Upcoming Encounters Date Type Department Care Team (Late st Contact Info) Description 08/24/2024 1:00 PM EDT Office Visit [facility] [address] [place] [address] Senait Pal MD [address] [place] [address] documented as of this encounter Goals Goal [...] documented as of this encounter Care Teams Vessel Ordinary Seaman Relationship Specialty Start Date End Date Senait Pal MD [address] [place] [id number] PCP - General Family Medicine 02/22/20 Gustabo Fernandez, HarshaD [address] [place] [phone] Pharmacist Internal Medicine 07/16/22 [facility] 09/14/23 documented as of this encounter
--- OUTSIDE RECORDS SUMMARY | 2024-07-28 15:24 | XMS_ITS | Clinical Summary ---
Author Organization [employer] Address [address] [place] [address] Care Team Providers Care Brine Tank Separator Operator Name Role Phone Senait Car MD Primary Care Provider [phone] Gustabo Fernandez PharmD Unavailable [phone] Allergies Active Allergy Reactions Criticality Noted Date [...] BY MOUTH AT BEDTIME 90 tablet 3 024 Active Ferrous Sulfate (iron) 325 (65 Fe) MG tablet TAKE 1 TABLET BY MOUTH EVERY EVENING 90 tablet 3 024 Active isosorbide mononitrate ER (Imdur) 30 MG 24 hr tablet Take 1 tablet by mouth Once per day. Active cetirizine (ZyrTEC) 5 MG tablet TAKE 1 TABLET BY MOUTH ONCE DAILY NEEDED FOR ALLERGIES 30 tablet 11 Active clopidogrel (Plavix) 75 MG tablet TAKE 1 TABLET BY MOUTH EVERYDAY AT NOON 90 tablet 3 024 Active hydrALAZINE (Apresoline) 10 MG tablet Take 1 tablet (10 mg) by mouth 2 times daily. 60 tablet Active Continuous Glucose Defense Attorney (FreeStyle Nata 2 Carey) deviceIndicati ons:Type 2 diabetes mellitus with diabetic peripheral angiopathy without gangrene, with long-term current use of insulin ([facility]),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 chronic dialysis, with long-term current use of insulin ([facility]) Scan sensor every 8 hours 1 each Active Continuous Glucose Sensor (FreeStyle Nata 2 Sensor) miscIndication s:Type 2 diabetes mellitus with diabetic peripheral angiopathy without gangrene, with long-term current use of insulin ([facility]),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 chronic dialysis, with long-term current use of insulin ([facility]) Apply 1 sensor every 14 days 2 each Active glucose blood (FreeStyle Precision Andrea Test) test strip Use to test blood sugar 3 times daily 100 each 024 2024 Active traMADol 25 MG tabletIndicati ons:Pain in both lower extremities Take 25 mg by mouth if needed each day for severe pain. 30 tablet 024 Active cholecalcifero l VITAMIN D (Vitamin D-3) 50 MCG (2000 UT) tablet TAKE 1 TABLET BY MOUTH EVERYDAY AT NOON 90 tablet 3 07/31/2 024 Active amLODIPine (Norvasc) 2.5 MG tablet Take [...] DO NOT SWALLOW 10.2 g 11 Active TRUEplus Lancets 33G miscIndication s:Type 2 diabetes mellitus with stage 4 chronic kidney disease, with long-term current use of insulin ([facility]) TEST BLOOD SUGAR THREE TIMES DAILY 100 each Active Incruse Ellipta 62.5 MCG/ACT aerosol powder INHALE 1 PUFF BY MOUTH EVERY DAY AT THE SAME TIME IN THE MORNING 30 each 11 Active carvedilol (Coreg) 12.5 MG tablet TAKE 1 TABLET BY MOUTH TWICE DAILY AT NOON AND IN THE EVENING 180 tablet Active mirtazapine (Remeron) 7.5 MG tablet TAKE 1 TABLET BY MOUTH AT BEDTIME 30 tablet 1 Active Tradjenta 5 MG tabletIndicati ons:Type 2 diabetes mellitus with stage 4 chronic kidney disease, with long-term current use of insulin ([facility]) TAKE 1 TABLET BY MOUTH EVERYDAY AT NOON 30 tablet 1 025 Active Tradjenta 5 MG tabletIndicati ons:Type 2 diabetes mellitus with stage 4 chronic kidney disease, with long-term current use of insulin ([facility]) TAKE 1 TABLET BY MOUTH EVERYDAY AT NOON 30 tablet 1 025 2024 Discontinued mirtazapine (Remeron) 7.5 MG tablet TAKE 1 TABLET BY MOUTH AT BEDTIME 30 tablet 1 025 2024 Discontinued Active [...] - Continue following with Wound Care and educational specialist Abnormal echocardiogram 09/26/2023 Hospital discharge follow-up 09/26/2023 Hypercholesteremia 09/26/2023 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 09/26/2023 Assessment & Plan (10/23/2023 7:03 PM EDT): - hypocalcemia - continue high-dose calcium replacement prescribed by employee relations assistant Metabolic acidosis 09/26/2023 Secondary renal hyperparathyroidism 09/26/2023 [...] vascular specialist and wound care clinic at [facility] - MRI on 09/26/23 showed [...] chronic HF in July 2023, hospitalized in [facility] - transthoracic echocardiogram on 07/24/23: [...] monitor fluid balance - following with both employee relations assistant and crossbar frame wirer Weight gain 07/23/2023 Assessment & Plan (07/23/2023 [...] states that she is scheduled for transfusion. Geomorphologist is also planning to start EPO. Assessment & Plan (04/29/2023 9:41 AM EST): - chronic anemia due to CKD - plan to start erythropoietin with employee relations assistant or heamtologist Prolonged Q-T interval on ECG 02/26/2023 Assessment & Plan (10/23/2023 11:54 AM EDT): - QTc > 500 ms - crossbar frame wirer recommends to discontinue SSRI, and sertraline was discontinued - optimize electrolyte replacement - now on peritoneal dialysis Assessment & Plan (08/25/2023 6:13 PM EDT): - QTc > 500 ms - crossbar frame wirer recommends to discontinue SSRI, and sertraline was discontinued - pharmacist will review her medications - optimize electrolyte replacement Assessment & Plan (07/26/2023 6:11 AM EDT): - most recent QTc 571 ms - crossbar frame wirer recommends to discontinue SSRI - pharmacist will review her medications - optimize electrolyte replacement Assessment & Plan (02/26/2023 12:16 PM EST): - most recent QTc 571 ms - crossbar frame wirer recommends to discontinue SSRI - pharmacist will review her medications - optimize electrolyte replacement Type 2 diabetes mellitus wit h chronic kidney disease on chronic dialysis, with long-term current use of insulin 07/03/2022 Assessment & Plan (10/23/2023 12:29 PM EDT): A1C 6.7% on 10/22/23 - last seen by transportation project manager, Dr. Herndon in Apr 2022. - Continue [...] 6.8% on 07/23/23 - last seen by transportation project manager, Dr. Herndon in Apr 2022. - Continue [...] 6.9% on 10/31/22 - last seen by transportation project managerDr. Herndon in Apr 2022. - Continue basal [...] on 03/29/22 - seen by Dr. Herndon, [facility] Endo for mostly hypothyroidism in [...] 8.8% on 03/29/22 - last seen by [facility] transportation project manager on 02/20/21. Refer to a new transportation project manager for transportation convenience. - Continue basal insulin: [...] find alternative medication and consult with her employee relations assistant Assessment & Plan (07/26/2023 6:10 AM EDT): [...] find alternative medication and consult with her employee relations assistant Assessment & Plan (04/29/2023 9:24 AM EST): [...] & Plan (10/22/2023 9:50 AM EDT[facility] -Nuclear stress [...] & Plan (08/25/2023 6:13 PM EDT): - [facility], last seen on 08/05/23 -Nuclear stress test [...] & Plan (07/23/2023 11:54 AM EDT): - [facility], last seen on 01/15/23. EKG showed further [...] & Plan (04/29/2023 9:35 AM EST): - [facility], last seen on 01/15/23. EKG showed further [...] Plan (02/25/2023 4:55 AM EST): - Cardiology, [facility], last seen on 01/15/23. EKG showed further increase in QT-c prolongation, likely due to electrolyte abnormality and medications. Sent to ED. -Nuclear stress test done in 2016 showed likely normal myocardial perfusion imaging. Last echo 2020 showed EF 60-65% with mild diastolic dysfunction, mild MR, mild pulmonary HTN Assessment & Plan (11/12/2022 10:57 AM EDT): - [facility] - Currently following with [facility] cardiology, last seen on 06/20/22. Found to have QT prolongation, likely due to electrolyte abnormality and medications Assessment & Plan (06/11/2022 8:54 AM EDT): - [facility] - Currently following with [facility] cardiology Peripheral venous insufficiency 02/28/2015 Postoperative hypothyroidism 02/28/2015 Assessment & Plan (10/23/2023 7:04 PM EDT): -h/o papillary thyroid cancer, s/p thyroidectomy -Goal TSH 0.5-1 -Most recent thyroid function test: 01/21/23 TSH 1.75 -Current replacement: levothyroxine 175 mcg daily -Continue current replacement, with caution since pt is losing weight -Previously seeing [facility] endocrinology; referred to a new transportation project manager for both DM and hypothyroidism / Hx thyroid cancer; pt has not received an appt yet. -Seen by [facility] endocrinology Dr. Herndon in Apr 2022. Assessment & Plan (08/25/2023 5:49 PM EDT): -h/o papillary thyroid cancer, s/p thyroidectomy -Goal TSH 0.5-1 -Most recent thyroid function test: 01/21/23 TSH 1.75 -Current replacement: levothyroxine 175 mcg daily -Continue current replacement, with caution since pt is losing weight -Previously seeing [facility] endocrinology; referred to a new transportation project manager for both DM and hypothyroidism / Hx thyroid cancer; pt has not received an appt yet. -Seen by [facility] endocrinology Dr. Herndon in Apr 2022. Assessment & Plan (07/23/2023 12:30 PM EDT): -h/o papillary thyroid cancer, s/p thyroidectomy -Goal TSH 0.5-1 -Most recent thyroid function test: 01/21/23 TSH 1.75 -Current replacement: levothyroxine 175 mcg daily -Continue current replacement, with caution since pt is losing weight -Previously seeing [facility] endocrinology; referred to a new transportation project manager for both DM and hypothyroidism / Hx thyroid cancer; pt has not received an appt yet. -Seen by [facility] endocrinology Dr. Herndon in Apr 2022. Assessment & Plan (04/29/2023 9:39 AM EST): -h/o papillary thyroid cancer, s/p thyroidectomy -Goal TSH 0.5-1 -Most recent thyroid function test: 01/21/23 TSH 1.75 -Current replacement: levothyroxine 175 mcg daily -Continue current replacement, with caution since pt is losing weight -Previously seeing [facility] endocrinology; referred to a new transportation project manager for both DM and hypothyroidism / Hx thyroid cancer; pt has not received an appt yet. -Seen by [facility] endocrinology Dr. Herndon in Apr 2022. Assessment & Plan (02/25/2023 5:02 AM EST): -h/o papillary thyroid cancer, s/p thyroidectomy -Goal TSH 0.5-1 -Most recent thyroid function test: 01/21/23 TSH 1.75 -Current replacement: levothyroxine 175 mcg daily -Continue current replacement, with caution since pt is losing weight -Previously seeing [facility] endocrinology; referred to a new transportation project manager for both DM and hypothyroidism / Hx thyroid cancer; pt has not received an appt yet. -Seen by [facility] endocrinology Dr. Herndon in Apr 2022. Assessment & Plan (11/12/2022 11:16 AM EDT): -h/o papillary thyroid cancer, s/p thyroidectomy -Goal TSH 0.5-1 -Most recent thyroid function test: In 2021, supratherapeutic. Repeating today -Current replacement: levothyroxine 175 mcg daily, decreased from 213 mcg daily after the most recent lab -Continue current replacement, with caution since pt is losing weight -Previously seeing [facility] endocrinology; referred to a new transportation project manager for both DM and hypothyroidism / Hx thyroid cancer; pt has not received an appt yet. -Seen by [facility] endocrinology Dr. Herndon recently. Assessment & Plan (06/11/2022 8:55 AM EDT): -h/o papillary thyroid cancer, s/p thyroidectomy -Goal TSH 0.5-1 -Most recent thyroid function test: 07/28/21 TSH 0.05 -Current replacement: levothyroxine 175 mcg daily, decreased from 213 mcg daily after the most recent lab -Continue current replacement, with caution since pt is losing weight -Previously seeing [facility] endocrinology; referred to a new transportation project manager for both DM and hypothyroidism / Hx thyroid cancer; pt has not received an appt yet. -Seen by [facility] endocrinology Dr. Herndon recently. Assessment & Plan (04/01/2022 12:19 PM EST): -h/o papillary thyroid cancer, s/p thyroidectomy -Goal TSH 0.5-1 -Most recent thyroid function test: 07/28/21 TSH 0.05 -Current replacement: levothyroxine 175 mcg daily, decreased from 213 mcg daily after the most recent lab -Continue current replacement, with caution since pt is losing weight -Previously seeing [facility] endocrinology; referred to a new transportation project manager for both DM and hypothyroidism / Hx thyroid cancer; pt has not received an appt yet. -Refer to [facility] endocrinology ESRD on dialysis 09/15/2013 Assessment & Plan (10/23/2023 11:55 AM EDT): - Geomorphologist: Dr. Bowden, last seen on 10/13/24 - on peritoneal dialysis at home - avoid nephrotoxic drug Assessment & Plan (10/20/2023 11:19 AM EDT): >>ASSESSMENT AND PLAN FOR CKD (CHRONIC KIDNEY DISEASE) STAGE 5, GFR LESS THAN 15 ML/MIN ([facility]) WRITTEN ON 10/20/2023 11:18 AM BY SENAIT CAR MD >>ASSESSMENT AND PLAN FOR STAGE 5 CHRONIC KIDNEY DISEASE NOT ON CHRONIC DIALYSIS ([facility]) WRITTEN ON 04/01/2022 12:14 PM BY SENAIT CAR MD - CKDIII/IV - most recent lab: Dec 2021 SCr 2.0 ; BUN 20; eGFR 24 - pt has an upcoming appt with employee relations assistant - avoid nephrotoxic drug - renal dose medications Assessment & Plan (10/20/2023 11:19 AM EDT): >>ASSESSMENT AND PLAN FOR CKD (CHRONIC KIDNEY DISEASE) STAGE 5, GFR LESS THAN 15 ML/MIN ([facility]) WRITTEN ON 10/20/2023 11:18 AM BY SENAIT CAR MD >>ASSESSMENT AND PLAN FOR STAGE 5 CHRONIC KIDNEY DISEASE NOT ON CHRONIC DIALYSIS ([facility]) WRITTEN ON 06/11/2022 8:54 AM BY SENAIT CAR MD - CKDIII/IV - most recent lab: Dec 2021 SCr 2.0 ; BUN 20; eGFR 24 - pt has an upcoming appt with employee relations assistant - avoid nephrotoxic drug - renal dose medications Assessment & Plan (10/20/2023 11:19 AM EDT): >>ASSESSMENT AND PLAN FOR CKD (CHRONIC KIDNEY DISEASE) STAGE 5, GFR LESS THAN 15 ML/MIN ([facility]) WRITTEN ON 10/20/2023 11:18 AM BY SENAIT CAR MD >>ASSESSMENT AND PLAN FOR STAGE 5 CHRONIC KIDNEY DISEASE NOT ON CHRONIC DIALYSIS ([facility]) WRITTEN ON 11/12/2022 10:59 AM BY SENAIT CAR MD - CKDIII/IV - most recent lab: Dec 2021 SCr 2.0 ; BUN 20; eGFR 24 - pt has an upcoming appt with employee relations assistant - avoid nephrotoxic drug - renal dose [...] Ca 5.7; Phos 4.6; Glu 152 - Geomorphologist: Dr. Bowden, last seen in September 2021 [...] CHRONIC KIDNEY DISEASE NOT ON CHRONIC DIALYSIS ([facility]) WRITTEN ON 04/29/2023 9:36 AM BY SENAIT CAR MD - CKD IV-V - most recent lab: 01/21/23 Na 145; K 2.9; Cl 108; Bicarb 24; BUN 33; Scr 3.3; eGFR 15; Ca 5.7; Phos 4.6; Glu 152 - Geomorphologist: Dr. Bowden, last seen in Mar 2023 [...] Ca 5.7; Phos 4.6; Glu 152 - Geomorphologist: Dr. Bowden, last seen in Mar 2023 - avoid nephrotoxic drug - renal dose medications Assessment & Plan (10/20/2023 11:19 AM EDT): >>ASSESSMENT AND PLAN FOR CKD (CHRONIC KIDNEY DISEASE) STAGE 5, GFR LESS THAN 15 ML/MIN ([facility]) WRITTEN ON 10/20/2023 11:18 AM BY SENAIT CAR MD >>ASSESSMENT AND PLAN FOR STAGE 5 CHRONIC KIDNEY DISEASE NOT ON CHRONIC DIALYSIS ([facility]) WRITTEN ON 08/25/2023 5:46 PM BY SENAIT CAR MD - CKD IV-V - Geomorphologist: Dr. Bowden, last seen in July 2023 - avoid nephrotoxic drug - renal dose medications - starting dialysis soon, likely peritoneal Peripheral arterial occlusive disease 04/16/2013 Assessment & Plan (10/23/2023 11:54 AM EDT): -s/p balloon angioplasty of left SFA on 06/10/13 -s/p left big-toe amputation -previously followed by Dr. Fuchs and Dr. Courtney at [facility], last appt in Jan 2020 -currently followed by Dr. Butler, last seen on 07/10/23 -s/p left LE angioplasty on 07/10/23 -previously seen by [facility] wound care on 05/2021 -continue [...] Fuchs and Dr. Courtney at [facility], last appt in Jan 2020 -currently followed by Dr. Butler, last seen on 07/10/23 -s/p left LE angioplasty on 07/10/23 -previously seen by [facility] wound care on 05/2021 -continue [...] Fuchs and Dr. Courtney at [facility], last appt in Jan 2020 -currently followed by Dr. Butler, last seen on 07/10/23 -s/p left LE angioplasty on 07/10/23 -previously seen by [facility] wound care on 05/2021 -continue Plavix and ASA -continue cilostazol -continue tramadol for claudication pain and other back / joint pain -work on risk factor management Assessment & Plan (04/29/2023 9:35 AM EST): -s/p balloon angioplasty of left SFA on 06/10/13 -s/p left big-toe amputation -previously followed by Dr. Fuchs and Dr. Courtney at [facility], last appt in Jan 2020 -currently followed by Dr. Butler, last seen on 04/24/22 -previously seen by [facility] wound care on 05/2021 -continue Plavix and ASA -continue cilostazol -continue tramadol for claudication pain and other back / joint pain -work on risk factor management Assessment & Plan (02/25/2023 4:53 AM EST): -s/p balloon angioplasty of left SFA on 06/10/13 -s/p left big-toe amputation -previously followed by Dr. Fuchs and Dr. Courtney at [facility], last appt in Jan 2020 -currently followed by Dr. Butler, last seen on 04/24/22 -previously seen by [facility] wound care on 05/2021 -continue Plavix and ASA -continue cilostazol -continue tramadol for claudication pain and other back / joint pain -work on risk factor management Assessment & Plan (11/12/2022 10:57 AM EDT): -s/p balloon angioplasty of left SFA on 06/10/13 -s/p left big-toe amputation -previously followed by Dr. Fuchs and Dr. Courtney at [facility], last appt in Jan 2020 -currently followed by Dr. Butler, last seen on 04/24/22 -previously seen by [facility] wound care on 05/2021 -continue Plavix and ASA -continue cilostazol -continue tramadol for claudication pain and other back / joint pain -work on risk factor management Assessment & Plan (06/11/2022 8:43 AM EDT): -s/p balloon angioplasty of left SFA on 06/10/13 -s/p left big-toe amputation -previously followed by Dr. Fuchs and Dr. Courtney at [facility], last appt in Jan 2020 -currently followed by Dr. Butler, last seen on 04/24/22 -previously seen by [facility] wound care on 05/2021 -continue Plavix and ASA -continue cilostazol -continue tramadol for claudication pain and other back / joint pain -work on risk factor management Assessment & Plan (04/01/2022 12:15 PM EST): -s/p balloon angioplasty of left SFA on 06/10/13 -s/p left big-toe amputation -previously followed by Dr. Fuchs and Dr. Courtney at [facility], last appt in Jan 2020 -currently followed by Dr. Butler and [facility] wound care on 05/2021, with [...] Previously on sertraline. Due to prolonged QT-c, crossbar frame wirer recommended to discontinue - Started on mirtazapine 7.5 mg at bedtime in September 2023. She reports her mood has been better and stable. - Continue mirtazapine. Assessment & Plan (08/25/2023 5:58 PM EDT): - Previously on sertraline. Due to prolonged QT-c, crossbar frame wirer recommended to discontinue - Asked our pharmacist to review her medications - will consider adding bupropion, or venlafaxine, or duloexetine (Cymbalta). Assessment & Plan (02/26/2023 12:15 PM EST): - Previously on sertraline. Due to prolonged QT-c, crossbar frame wirer recommended to discontinue - Asked our pharmacist [...] at goal today -Co-managed with our pharmacist, employee relations assistant, and crossbar frame wirer -Continue working on lifestyle modifications -Continue carvedilol 12.5 mg bid -Continue hydralazine 10 mg bid, will check with pharmacist and employee relations assistant whether she is still taking it -Continue amlodipine 2.5 mg daily -Continue furosemide 80 mg daily - Treatment Hx: Discontinued amlodipine 5 mg daily due to swelling, Furosemide dose was increased during recent hospitalization for HF, isosorbide was added. Spironolactone (Hx hypokalemia), but discontinued when she moved to [place]. Losartan and chlorthalidone were discontinued in May [...] at goal today -Co-managed with our pharmacist, employee relations assistant, and crossbar frame wirer -Continue working on lifestyle modifications -Continue carvedilol 12.5 mg bid -Continue hydralazine -Continue furosemide 80 mg daily - Treatment Hx: Discontinued amlodipine 5 mg daily due to swelling, Furosemide dose was increased during recent hospitalization for HF, isosorbide was added. Spironolactone (Hx hypokalemia), but discontinued when she moved to [place]. Losartan and chlorthalidone were discontinued in May [...] at goal today -Co-managed with our pharmacist, employee relations assistant, and crossbar frame wirer -Continue working on lifestyle modifications -Continue metoprolol tartrate 25 mg bid -Discontinued amlodipine 5 mg daily yesterday by employee relations assistant due to swelling -started furosemide 40 mg daily Treatment Hx: Previously on spironolactone (Hx hypokalemia), but discontinued when she moved to [place] Losartan and chlorthalidone were discontinued in May [...] at goal today -Co-managed with our pharmacist, employee relations assistant, and crossbar frame wirer -Continue working on lifestyle modifications -Continue metoprolol tartrate 25 mg bid -Continue amlodipine 5 mg daily Treatment Hx: Previously on spironolactone (Hx hypokalemia), but discontinued when she moved to [place] Losartan and chlorthalidone were discontinued in May [...] at goal today -Co-managed with our pharmacist, employee relations assistant, and crossbar frame wirer -Continue working on lifestyle modifications -Continue metoprolol tartrate 25 mg bid -Continue amlodipine 5 mg daily Treatment Hx: Previously on spironolactone (Hx hypokalemia), but discontinued when she moved to [place] Losartan and chlorthalidone were discontinued in May [...] hypokalemia), but discontinued when she moved to [place] Losartan and chlorthalidone were discontinued in May [...] hypokalemia), but discontinued when she moved to [place] Losartan and chlorthalidone were discontinued in May [...] 6.7% on 10/22/23 - last seen by transportation project manager, Dr. Herndon in Apr 2022. - Continue [...] 08/22/23, has worsened - last seen by transportation project manager, Dr. Herndon in Apr 2022. - Continue [...] 6.8% on 07/23/23 - last seen by transportation project manager, Dr. Herndon in Apr 2022. - Continue [...] 6.9% on 10/31/22 - last seen by transportation project manager, Dr. Herndon in Apr 2022. - Continue [...] 8.8% on 03/29/22 - last seen by transportation project manager, Dr. Herndon in Apr 2022. - Continue [...] 8.8% on 03/29/22 - last seen by [facility] transportation project manager on 02/20/21. Refer to a new transportation project manager for transportation convenience. - Continue basal insulin: [...] 7.8% on 09/25/21 - last seen by [facility] transportation project manager on 02/20/21. Refer to a new transportation project manager for transportation convenience. - Continue basal insulin: [...] 7.8% on 09/25/21 - last seen by [facility] transportation project manager on 02/20/21. Refer to a new transportation project manager for transportation convenience. - Continue basal insulin: [...] Plan (06/11/2022 8:54 AM EDT): Refer to pharmacy resource tech Obesity 11/07/2011 03/29/2022 Encounters Date Type Department Care Team Description 07/23/2024 Refill [facility] [address] [place] [address] Senait Car MD Type 2 diabetes mellitus with stage 4 chronic kidney disease, with long-term current use of insulin ([facility]) 05/16/2024 Refill [facility] [address] [place] [address] Senait Car MD Type 2 diabetes mellitus with stage 4 chronic kidney disease, with long-term current use of insulin ([facility]) 05/12/2024 Refill [facility] [address] [place] [address] Marlys Camp MD from Last 3 Months Immunizations Name [...] 09/24/2023 1:57 PM EDT Plan of Treatment Upcoming Encounters Date Type Department Care Team (Late st Contact Info) Description 08/24/2024 1:00 PM EDT Office Visit [facility] [address] [place] [address] Senait Car MD [address] [place] [address] Health Maintenance Due Date Last Done Comments [...] long-term current use of insulin ([facility]) LIPID PANEL WITH REFLEX TO DIRECT LDL Routine 09/05/2023 3:02 PM EDT Dyslipidemia 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 chronic dialysis, with long-term current use of insulin ([facility]) DIABETES EYE EXAM Routine 08/04/2022 from Last 3 Months or Most Recently Relevant to Health Maintenance Results * Referral to Wound Clinic (05/21/2024) Senait Car MD OUTPATIENT REFERRAL ORDERABLES E dited Result - Final * BI Mammogram Screening Tomosynthesis Bilateral (01/17/2024 3:00 PM EDT) Anatomical Region Laterality Modality Breast Bilateral Mammography 01/17/2024 3:00 PM EDT Narrative 01/27/2024 7:44 PM EST ? [facility] ? [address] ?[place] [address] ? Mammography Report ? Signed ? Patient: García So,Iris N ?MR#: ?? [id number] ? : 1955 ?Acct:[id number] ? Age/Sex: 68 / F ?ADM Date: 11//24 ? Loc: HO.MAMMO ? Attending Dr: Senait Car MD ? Ordering Physician: Senait Car MD ?Results: 2Benign F ?? indings ? Date of Service: 01/17/24 ?Follow Up: 1 Year From Orig ?? inal Mammogram ? Procedure(s): MM tomosynthesis screening BI ?? Accession Number(s): [id number] ? cc: Senait Car MD ? EXAMINATION: [...] DD/ 1500 ? TD/TT: 01/17/24 1515 ? Industrial Laborer: ? Procedure Note Donotuseinterpreter, Image - [facility] [address] [place] [address] Mammography Report Signed Patient: Sarah Jones NMR#: [id number] : 5Acct:[id number] Age/Sex: 68 / FADM Date: 01/17/24 Loc: [facility]DR[facility] Attending Dr: Senait Car MD Ordering Physician: Senait Car MDResults: 2Benign F indings Date of Service: 01/17/24Follow Up: 1 Year From Orig inal Mammogram Procedure(s): MM tomosynthesis screening BI Accession Number(s): [id number] cc: Senait Car MD EXAMINATION: MM SCREENING [...] OV> 01/27/241940 DD/ 1500 TD/TT: 01/17/24 1515 Industrial Laborer: Senait Car MD IMG BI PROCEDURES Edited Result - Final * (ABNORMAL) POCT glycosylated hemoglobin (Hgb A1c) (10/22/2023 9:20 AM EDT) Hemoglobin A1C 6.7(A) 4.0 - 6.0 % QC Media Lot # [id number] Lot# Expiration Date Blood Capillary blood specimen / Unknown 10/22/2023 9:20 AM EDT Senait Car MD POINT OF CARE TEST ENTER/EDIT OR DERABLES Final Result * (ABNORMAL) Lipid Panel with Reflex to Direct LDL (09/05/2023 3:02 PM EDT) Triglycerides 95 <150 mg/dL [facility] Comment:Desirable Triglyceri de: less than 150 mg/dLBorderline High Triglyceride 150-199 mg/dLHigh Triglyceride: 200-499 mg/dLVery High Triglyceride: greater than or equal to 5OO mg/dL Cholesterol 99 <200 mg/dL [facility] Comment:Desirable Cholestero l: less than 200 mg/dLBorderline High Cholesterol: 200-239 mg/dLHigh Cholesterol: greater than 239 mg/dL LDL Cholesterol Calculated 47 <100 mg/dL [facility] Comment:Desirable LDL: less than 100 mg/dLNear Optimal/Above Optimal LDL: 110- 129 mg/dLBorderline High LDL: 130-159 mg/dLHigh LDL: 160-189 mg/dLVery High LDL: greater than or equal to 190 mg/dL HDL Cholesterol 33(L) >40 mg/dL [facility] Comment:Desirable HDL: great er than 40 mg/dL Note: This HDL assay may give artificially low results in patients with liver disease. Blood 09/05/2023 3:02 PM EDT 09/05/2023 3:03 PM EDT Senait Car MD LAB BLOOD ORDERABLES Final Resul t [facility] [address] [place] [address] [phone] * Diabetes Eye Exam (08/04/2022) [facility] Signature Eye Exam Normal Normal [facility] Unassigned Pcp HEALTH MAINTENANCE Final Result from Last 3 Months or Most Recently Relevant to Health Maintenance Insurance * Guarantor: Sarah Jones Account Type Relation to Patient Date of Phone Billing Address Personal/Family Self [address] [place] [address] [facility] [employer] (O D-SNP) [place] [phone] * Guarantor: Sarah Jones Account Type Relation to Patient Date of Phone Billing Address Personal/Family Self [address] [place] [id number] * Guarantor: Sarah Jones Account Type Relation to Patient Date of Phone Billing Address Personal/Family Self [address] [place] [id number] * Guarantor: Sarah Jones Account Type Relation to Patient Date of Phone Billing Address Personal/Family Self [address] [place] [id number] Care Teams Brine Tank Separator Operator Relationship Specialty Start Date End Date Senait Car MD [address] [place] [address] PCP - General Family Medicine 02/22/20 Gustabo Fernandez, HarshaD [address] [place] [address] Pharmacist Internal Medicine 07/16/22 [facility] 09/14/23
--- OUTSIDE RECORDS SUMMARY | 2024-07-28 15:24 | XMS_ITS | Encounter Summary ---
Author Organization [employer] Address [address] 7t [place] [address] Care Team Providers Care Laborer Name Role Phone Senait Pal MD Primary Care Provider [phone] Gustabo Fernandez PharmD Unavailable [phone] Reason for Visit * Reason Comments Med Refill Encounter Details Date Type Department Care Team (Late st Contact Info) Description 07/23/2024 Refill [facility] [address] [place], [place] [phone] Senait Pal MD [address] [place], [place] [phone] Type 2 diabetes mellitus with stage 4 chronic kidney disease, with long-term current use of insulin ([facility]) Social History Tobacco Use Types Packs/Day [...] Description 08/24/2024 1:00 PM EDT Office Visit [facility] [address] [place] [address] Senait Pal MD [address] [place] [address] documented as of this encounter Goals Goal [...] disease, with long-term current use of insulin ([facility]) documented in this encounter Additional Health Concerns Assessment Noted Time PHQ-9 Depression Total Score: 7 11/01/19 23 11:04 AM EDT documented as of this encounter Care Teams Laborer Relationship Specialty Start Date End Date Senait Pal MD [address] [place] [address] PCP - General Family Medicine 02/22/20 Gustabo Fernandez, HarshaD [address] [place] [address] Pharmacist Internal Medicine 07/16/22 [facility] 09/14/23 documented as of this encounter
--- OUTSIDE RECORDS SUMMARY | 2024-07-28 15:24 | XMS_ITS | Encounter Summary ---
Author Organization [employer] Address [address] [facility] 7t [place] [address] Care Team Providers Care Marine Chronometer Assembler Name Role Phone Senait Pal MD Primary Care Provider [phone] Gustabo Fernandez PharmD Unavailable [phone] Reason for Visit * Reason Onset Date Comments Other 11/21/2022 Results 11/21/2022 Encounter Details Date Type Department Care Team ([facility] st Contact Info) Description 11/21/2022 Telephone [facility] [address] [place], [place] [phone] Senait Pal MD [address] [place], [place] [phone] Other; Results Social History Tobacco Use Types [...] 2:14 PM EDT Tc from Yuliya at [facility] requesting on behalf of patient a new script for a glucose meter, current one doesn't work. Patient is also requesting results from kidney biopsy. Please call [phone]. documented in this encounter Plan of Treatment Upcoming Encounters Date Type Department Care Team (Late st Contact Info) Description 08/24/2024 1:00 PM EDT Office Visit [facility] [address] [place] [address] Senait Pal MD [address] [place] [address] documented as of this encounter Goals Goal [...] documented as of this encounter Care Teams Marine Chronometer Assembler Relationship Specialty Start Date End Date Senait Pal MD [address] [place] [address] PCP - General Family Medicine 02/22/20 Gustabo Fernandez, HarshaD [address] [place] [address] Pharmacist Internal Medicine 07/16/22 [facility] 09/14/23 documented as of this encounter
--- OUTSIDE RECORDS SUMMARY | 2024-07-28 15:24 | XMS_ITS | Clinical Summary ---
Demographics Address [address] [place] [address] [address] [place] [address] Home Phone Preferred Language es Marital Status Unknown Mandaeism Affiliation Unknown Race White Ethnic Group Unknown Author Organization [facility] Address [address] [place] [address] Phone Care Team Providers Care Purchasing Coordinator Name Role Phone Senait Pal MD Primary Care Provider [phone] Allergies Active Allergy Reactions Criticality Noted Date [...] Last Done Comments Breast Cancer Screening 1955 Colorectal Cancer Screening: Annual FOBT 08/14/2003 Colorectal Cancer Screening: Colonoscopy 08/14/2003 Colorectal Cancer Screening: Sigmoidoscopy 08/14/2003 Diabetes: Ophthalmology Exam 04/17/2020 Diabetes: Pedal Pulse Checked 04/17/2020 Diabetes: Sensory Foot Exam 04/17/2020 Diabetes: Visual Foot Exam 04/17/2020 Diabetes: Hemoglobin A1C 01/22/2024 10/22/2023, 06/2018 Influenza Vaccine (Season Ended) 2024 01/24/2022, 01/14/2020, 01/23/2017, Additional history exists Hepatitis B Vaccine Aged Out 06/17/2014, 02/09/2014, 09/15/2013 No longer eligible based on patient's age to complete this topic Pneumococcal Vaccine: 50+ Years Completed 10/31/2022, 02/26/2011 Pneumococcal Vaccine: Peds (0 to 5 Years) and At-Risk Patients (6 to 49 Years) Discontinued 10/31/2022, 02/26/[address] [place] [address] [facility] ([id number]) [place] [phone] [facility] ([id number]) [place] [phone] Care Teams Purchasing Coordinator Relationship Specialty Start Date End Date Senait Pal MD PCP - General 03/28/20
--- OUTSIDE RECORDS SUMMARY | 2024-07-28 15:24 | XMS_ITS | Encounter Summary ---
Author Organization [employer] Address [address] [facility] 7t [place] [address] Care Team Providers Care Industrial Psychology Professor Name Role Phone Senait Pal MD Primary Care Provider [phone] Gustabo Fernandez PharmD Unavailable [phone] Encounter Details Date Type Department Care Team (Late st Contact Info) Description 11/01/2022 Abstract [facility] [address] [place] [phone] Senait Pal MD [address] [place], [place] [phone] Social History Tobacco Use Types Packs/Day Years [...] Description 08/24/2024 1:00 PM EDT Office Visit [facility] [address] [place], [place] [phone] Senait Pal MD [address] [place] [address] [phone] documented as of this encounter Goals Goal Patient Goal Type Associated Problems Recent Progress Patient-Stated? Author Blood Pressure < 140/90 Blood Pressure 128/69( 024 9:18 AM EDT) No Gustabo Fernandez PharmD Quit using tobacco (cigarettes, smokeless, etc) Tobacco Use No Gustabo Fernandez PharmD documented as of this encounter Procedures Procedure Name Priority Date/Time Associated Diagnosis Comments DIABETES EYE EXAM Routine 08/04/2022 documented in this encounter Results * Diabetes Eye Exam (08/04/2022) Eye Exam Normal Normal [facility] Pcp HEALTH MAINTENANCE Final Result documented in this encounter Visit Diagnoses Not on filedocumented in this encounter Additional Health Concerns Assessment Noted Time PHQ-9 Depression Total Score: 7 11/01/19 23 11:04 AM EDT documented as of this encounter Care Teams Industrial Psychology Professor Relationship Specialty Start Date End Date Senait Pal MD [address] [place] [address] PCP - General Family Medicine 02/22/20 Gustabo Fernandez PharmD [address] [place] [address] Pharmacist Internal Medicine 07/16/22 [facility] 09/14/23 documented as of this encounter
--- OUTSIDE RECORDS SUMMARY | 2024-07-28 15:24 | XMS_ITS | Encounter Summary ---
Author Organization [employer] Address [address] [place] [address] 7t [place] [address] Care Team Providers Care Sleep Tech Name Role Phone Senait Pal MD Primary Care Provider [phone] Gustabo Fernandez PharmD Unavailable [phone] Encounter Details Date Type Department Care Team (Late Contact Info) Description 08/09/2022 [facility] Health Information Management [address] [place], [place] [phone] Senait Pal MD [address] [place], [place] [phone] Social History Tobacco Use Types Packs/Day Years [...] Encounters Date Type Department Care Team (Late Contact Info) Description 08/24/2024 1:00 PM EDT Office Visit [facility] [address] [place], [place] [phone] Senait Pal MD [address] [place], [place] [phone] documented as of this encounter Goals Goal Patient Goal Type Associated Problems Recent Progress Patient-Stated? Author Blood Pressure < 140/90 Blood Pressure 128/69( 024 9:18 AM EDT) No Gustabo Fernandez, PharmSepedy Quit using tobacco (cigarettes, smokeless, etc) Tobacco Use No Gustabo Fernandez PharmD documented as of this encounter Visit Diagnoses Not on filedocumented in this encounter Care Teams Sleep Tech Relationship Specialty Start Date End Date Senait Pal MD [address] [place] [address] PCP - General Family Medicine 02/22/20 Gustabo Fernandez, Agnes [address] [place] [address] Pharmacist Internal Medicine 07/16/22 [facility] 09/14/23 documented as of this encounter
--- OUTSIDE RECORDS SUMMARY | 2024-07-28 15:24 | XMS_ITS | Encounter Summary ---
Author Organization [employer] Address [address] 7t [place] [address] Care Team Providers Care Soap Inspector Name Role Phone Senait Pal MD Primary Care Provider [phone] Gustabo Fernandez PharmD Unavailable [phone] Reason for Visit * Reason Onset Date Comments Nurse Triage 09/26/2023 Encounter Details Date Type Department Care Team ([facility] st Contact Info) Description 09/26/2023 Telephone [facility] [address] [place], [place] [phone] Senait Pal MD [address] [place], [place] [phone] Nurse Triage Social History Tobacco Use Types [...] symptoms worsen to be seen in the [facility]. Pt agreeable to plan and stated unders tanding. Forwarding to PCP and Radha Burciaga for FYI * Telephone Encounter - Brielle Henry LPN - 09/26/2023 9:34 AM EDT Triage call returned to patient who reports increased anxiety and crying and outburst while at homeand while in the community. Patient reports that a medication was discontinued by ( patient confirms who is [facility] and not her PCP ? )and that since that time she is having issues. Name of medication unknown, believes it was approx one month ago. No documentation identified at time of call. Patient denies SI/HI but reports that she is screaming out and then slapping her own face when agitated. Disposition reviewed and no pCP appts available. ASK/E.Patrica JD [facility] CONSULTANT on 09/30/23 @330pm following dialysis. [facility] clinicians explained to patient who [...] Office Visit [facility] [address] [place] [address] Senait Pal MD [address] [place] [address] documented as of this encounter Goals Goal [...] documented as of this encounter Care Teams Soap Inspector Relationship Specialty Start Date End Date Senait Pal MD [address] [place] [address] PCP - General Family Medicine 02/22/20 Gustabo Fernandez, HarshaD [address] [place] [address] Pharmacist Internal Medicine 07/16/22 [facility] 09/14/23 documented as of this encounter
--- OUTSIDE RECORDS SUMMARY | 2024-07-28 15:24 | XMS_ITS | Encounter Summary ---
Author Organization [employer] Address [address] 7t [place] [address] Care Team Providers Care Merchandising Intern Name Role Phone Senait Pal MD Primary Care Provider [phone] Gustabo Fernandez PharmD Unavailable [phone] Reason for Visit * Reason Comments Med Refill Encounter Details Date Type Department Care Team ([facility] st Contact Info) Description 06/09/2023 Refill [facility] [address] [place], [place] [phone] Senait Pal MD 230 [place], [place] [phone] Moderate episode of recurrent major depressive disorder [...] Description 08/24/2024 1:00 PM EDT Office Visit [facility] [address] [place] [address] Senait Pal MD [address] [place] [address] documented as of this encounter Goals Goal [...] documented as of this encounter Care Teams Merchandising Intern Relationship Specialty Start Date End Date Senait Pal MD [address] [place] [address] [phone] PCP - General Family Medicine 02/22/20 Gustabo Fernandez PharmD [address] [place] [address] Pharmacist Internal Medicine 07/16/22 [facility] 09/14/23 documented as of this encounter
--- OUTSIDE RECORDS SUMMARY | 2024-07-28 15:24 | XMS_ITS | Encounter Summary ---
Author Organization [employer] Address [address] 7t [place] [address] Care Team Providers Care Cognos Analyst Name Role Phone Senait Pal MD Primary Care Provider [phone] Gustabo Fernandez PharmD Unavailable [phone] Reason for Visit * Reason Onset Date Comments Referral 04/05/2022 Encounter Details Date Type Department Care Team (Late st Contact Info) Description 04/05/2022 Telephone [facility] [address] [place], [place] [phone] Senait Pal MD [address] [place], [place] [phone] Referral Social History Tobacco Use Types Packs/Day [...] No answer, left V/M. Will retask to [facility] for second attempt * Telephone Encounter - Hugh Koch - 04/05/2022 3:35 PM EST Tc from pt requesting referral to thyroid cancer specialist. Pt is also requesting a referral for aallergist specialist Please contact pt at [phone] documented in this encounter Plan of Treatment Upcoming Encounters Date Type Department Care Team (Late st Contact Info) Description 08/24/2024 1:00 PM EDT Office Visit [facility] [address] [place], [place] [phone] Senait Pal MD [address] [place] [address] documented as of this encounter Visit Diagnoses Not on filedocumented in this encounter Care Teams Cognos Analyst Relationship Specialty Start Date End Date Senait Pal MD [address] [place] [address] PCP - General Family Medicine 02/22/20 Gustabo Fernandez, PharmD [address] [place] [address] Pharmacist Internal Medicine 07/16/22 [facility] 09/14/23 documented as of this encounter
--- OUTSIDE RECORDS SUMMARY | 2024-07-28 15:24 | XMS_ITS | Encounter Summary ---
Author Organization [employer] Address [address] [facility] 7t [place] [address] Care Team Providers Care Heel Splitter Name Role Phone Senait Pal MD Primary Care Provider [phone] Gustabo Fernandez PharmD Unavailable [phone] Encounter Details Date Type Department Care Team (Late st Contact Info) Description 11/12/2022 Orders Only [facility] [address] [place] [address] [phone] Senait Pal MD [address] [place], [place] [phone] Social History Tobacco Use Types Packs/Day Years [...] Description 08/24/2024 1:00 PM EDT Office Visit [facility] 230 [place], [place] [phone] Senait Pal MD [address] [place], [place] [phone] documented as of this encounter Goals Goal [...] documented as of this encounter Care Teams Heel Splitter Relationship Specialty Start Date End Date Senait Pal MD [address] [place] [address] PCP - General Family Medicine 02/22/20 Gustabo Fernandez PharmD [address] [place] [address] Pharmacist Internal Medicine 07/16/22 [facility] 09/14/23 documented as of this encounter
--- OUTSIDE RECORDS SUMMARY | 2024-07-28 15:24 | XMS_ITS | Encounter Summary ---
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 chronic dialysis, with long-term current use of insulin (CMS/HCC) Senait Pal MD [address] [place] [address] Phone: tel: fax: Referral ID Status Reason Start Date Expiration Date Visits Re quested Visits Authorized [id number] Closed 1 1 * Medications - Closed Specialty Diagnoses / Procedures Referred By Paul osborne Referred To Contact Diagnoses Type 2 diabetes mellitus with diabetic peripheral angiopathy without gangrene, with long-term current use of insulin (CMS/HCC) 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 chronic dialysis, with long-term current use of insulin (CMS/HCC) Senait Pal MD [address] [place] [address] Phone: tel: fax: Referral ID Status Reason Start Date Expiration Date Visits Re quested Visits Authorized [id number] Closed 1 1 Encounter Details Date Type Department Care Team (Late st Contact Info) Description 09/24/2023 Orders Only [facility] [address] [place] [address] Senait Pal MD [address] [place] [address] Type 2 diabetes mellitus with diabetic peripheral [...] Description 08/24/2024 1:00 PM EDT Office Visit [facility] [address] [place] [address] Senait Pal MD [address] [place] [address] documented as of this encounter Goals Goal [...] gangrene, with long-term current use of insulin ([facility])- Primary 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 chronic dialysis, with long-term current use of insulin ([facility]) Pain in both lower extremities documented in this encounter Additional Health Concerns Assessment Noted Time PHQ-9 Depression Total Score: 7 11/01/19 23 11:04 AM EDT documented as of this encounter Care Teams Power Plant Mechanic Relationship Specialty Start Date End Date Senait Pal MD [address] [place] [address] PCP - General Family Medicine 02/22/20 Gustabo Fernandez, PharmD [address] [place] [address] Pharmacist Internal Medicine 07/16/22 [facility] 09/14/23 documented as of this encounter
--- OUTSIDE RECORDS SUMMARY | 2024-07-28 15:24 | XMS_ITS | Encounter Summary ---
Author Organization [employer] Address [address] [facility] [address] 7t [place] [address] Care Team Providers Care Metal Painter Name Role Phone Senait Pal MD Primary Care Provider [phone] Gustabo Fernandez PharmD Unavailable [phone] Reason for Visit * Reason Comments Med Refill Encounter Details Date Type Department Care Team ([facility] st Contact Info) Description 01/31/2023 Refill [facility] [address] [place], [place] [phone] Senait Pal MD [address] [place], [place] [phone] Moderate episode of recurrent major depressive disorder [...] Description 08/24/2024 1:00 PM EDT Office Visit [facility] [address] [place] [address] Senait Pal MD [address] [place] [address] documented as of this encounter Goals Goal [...] documented as of this encounter Care Teams Metal Painter Relationship Specialty Start Date End Date Senait Pal MD [address] [place] [address] [phone] PCP - General Family Medicine 02/22/20 Gustabo Fernandez PharmD [address] [place] [address] Pharmacist Internal Medicine 07/16/22 [facility] 09/14/23 documented as of this encounter
--- OUTSIDE RECORDS SUMMARY | 2024-07-28 15:24 | XMS_ITS | Data Portability ---
Author Organization [employer] Address [address] [place] [address] Care Team Providers Care Orthotist Prosthetist Name Role Phone HIM CCA OTHER Assessment [...] PCP. The patient agreed with this plan. [email or web address] Not available 11/01/2021 19:13:25 08/29/2022 08/29/2022 As noted, we were called to see this patient regarding concerns of cellulitis of the left lower leg Evaluation in the field was performed by my c d area supervisor colleague, as noted above, I provided real-time [...] Lab BMP, serum or plasma 2023 024 [facility], [address] [place] [address], [id number] 4 20:52:48 hemoglobin + hematocrit, blood 2023 024 [facility], [address] [place] [address], [id number] 4 20:51:45 Referral None recorded. Procedures None recorded. Surgeries None recorded. Imaging None recorded. Medication Orders sodium chloride 0.9 % intravenous solution 2023 024 [facility], [address] [place] [address], [id number], 4 20:51:12 doxycycline hyclate 100 mg capsule 2022 023 [email or web address] Not available 3 15:43:21 doxycycline hyclate 100 [address] capsule [address] [facility], [address] [place] [address], [id number], 3 15:51:20 Patient TargetsNo targets recorded. Patient InstructionsNo instructions recorded. Reason for Referral None Reported. Results Created Date Observation Date Name Description Value Unit Range Abnormal Flag Note LastModifiedBy Organization Detail LastModifiedTime 09/07/19 24 09/07/2023 BMP, serum or plasm a BUN 124 Not Available [facility] [address], [id number] 09/07/2023 20:50:35 09/07/19 24 09/07/2023 BMP, serum or plasm a Ca 0.52 Not Available [facility] [address], [id number] 09/07/2023 20:50:35 09/07/19 24 09/07/2023 BMP, serum or plasm a CI- 103 Not Available [facility] [address], [address] 09/07/2023 20:50:35 09/07/19 24 09/07/2023 BMP, serum or plasm a CRE 8.1 Not Available [facility] [address], [id number] 09/07/2023 20:50:35 09/07/19 24 09/07/2023 BMP, serum or plasm a GLU 267 Not Available [facility] [address], [address] 09/07/2023 20:50:35 09/07/19 24 09/07/2023 BMP, serum or plasm a K+ 3.0 Not Available [facility] [address], [address] 09/07/2023 20:50:35 09/07/19 24 09/07/2023 BMP, serum or plasm a Na+ 140 Not Available [facility] [address], [address] 09/07/2023 20:50:35 09/07/19 24 09/07/2023 BMP, serum or plasm a tCO2 18 Not Available [facility] [address], [id number] 09/07/2023 20:50:35 09/07/19 24 09/07/2023 hemog lobin + hemat ocrit , blood Hemoglobin 9.5 Not Available Main - [address], [address] 09/07/2023 20:51:28 09/07/19 24 09/07/2023 hemog lobin + hemat ocrit , blood Hematocrit 28 Not Available [address], [address] 09/07/2023 20:51:28 Result Notes None recorded. Medical [...] Address Organization Details Last Updated DateTime 3 76368.7 6 g 16 /min 99 % 99 % 97.8 [degF] 75 /min 151 mm[Hg] 71 mm[Hg] Not Available [employer] 3 15:40:42 Date Recorded Heart rate Oxygen saturation Oxygen saturation in Arterial blood by Pulse oximetry Respiratory rate Body temperature Systolic blood pressure Diastolic blood pressure Provider Name and Address Organization Details Last Updated DateTime 4 67 /min 100 % 100 % 16 /min 97.5 [degF] 113 mm[Hg] 60 mm[Hg] Not Available [employer] 4 20:36:59 Date Recorded Heart rate Oxygen saturation Oxygen saturation in Arterial blood by Pulse oximetry Respiratory rate Body temperature Systolic blood pressure Diastolic blood pressure Provider Name and Address Organization Details Last Updated DateTime 2 84 /min 99 % 99 % 18 /min 97.8 [degF] 137 mm[Hg] 65 mm[Hg] Not Available [employer] 2 19:10:22 Social History None recorded. Functional Status None recorded. Mental Status None recorded. Family History Nothing Reported. Medical History No medical history recorded. Gynecological HistoryNo gynecological history recorded. Obstetrics History GPAL:G 0 P 0 0 0 0 Past Encounters Encounter ID Performer Location Encounter Start Date Encounter Closed Date Diagnosis/Indication Diagnosis SNOMED-CT Code Diagnosis ICD10 Code Diagnosis Note [id number] Kermit Tomas MD [facility] - [address] [address] 11/01/2021 19:10:19 11/01/2021 19:13:43 [id number] Noe Cortes MD Main - [facility] [address] [place] [phone] 08/29/2022 15:40:31 08/30/2022 10:51:33 Cellulitis of lower limb 293149731 L03.119 [id number] CEDRICK BELLO MD [facility] - [address] [address] 09/07/2023 19:32:58 09/08/2023 16:45:57 Slzpe-nd-edilbdb renal failure 717260193 N17.9 Evaluation in the field was performed by my c d area supervisor colleague, as noted above, I provided real-time [...] RA, T 98.3 Exam : Mildly decreased screw machine repairer on the left hand but no other [...] ml-Unable to tolerate PO Kcl-expect called at [facility] Primary care, consider__ _ Dispositio n: ED Health Concerns Section Related Observation LastModified by Organization Detai ls LastModified Time None Recorded Concern Status LastModified by Organization Details LastModified Time None Recorded Advance Directives Directive None Recorded Payers Insurance Date Sequence Insurance Name Policy Number Policy Camacho Covered Member ID Camacho Member ID Guarantor Name 07/17/2024 1 [facility] - DOS PRIOR TO 2022 - DUAL ELIGIBLE (MEDICARE REPLACEMENT/AD VANTAGE - HMO) Sarah García [id number] Sarah García 07/17/2024 1 [facility] - DOS ON OR AFTER 2022 - DUAL ELIGIBLE - CORRECTION OPTIONS AND ONE CARE (MEDICARE REPLACEMENT/AD VANTAGE - HMO) Sarah García [id number] Sarah García Notes Date Note Type Note Provider Name and Address Organization Details Recorded Time 11/01/2021 text/html HPI: Alergies-sandra inhibtors: cough and cilostazol: cough. Member reported fever and chills with weakness x 3 days, stated tested negative for Covid with home test. Questions UTI, but asymptomatic other than the above. Spanish speaker. Member is 66 yo, has thyroid cancer, DM, HTN, Ischemic cardiac disease, DM and Asthma. Denied having respiratory or GI/ sx. ................... ................... ................... ................... ................... ................... ................... ........ CRC Nursing Assessment: Comments: CRC RN DID NOT NEED FURTHER INFO TO PROCESS VISIT ................... ................... ................... ................... ................... ................... ................... ........ Environmental Air Specialist Note: Pt states she feels tired and [...] ........ Disposition: Fulfilled Kermit Tomas MD [address] [facility],[address], [place], [address], CHARLIE DICKERSON 11/01/2021 19:13:41 08/29/2022 text/html HPI: CCA calling [...] ................... ................... ................... ................... ................... ................... ........ Environmental Air Specialist Note From Victor Manuel Gilmore: Pt CO [...] ........ Disposition: Fulfilled Noe Cortes MD [address] [facility],[address], [place], [address], [employer] 08/29/2022 16:20:09 09/07/2023 text/html CRC Nurse Triage Notes (George Gil): Chief Complaints: Syncope/Dizziness/L ightheadedness, Weakness/Lethargy PMH: Amputation, Diabetes, COPD/Asthma, Hypertension, Heart Disease Allergies: Unknown Comments: Dewer verified the member's name//address and phone number. [...] and seek emergency treatment if needed -Socorro Gil, RN Environmental Air Specialist POC Test Results from Tamra Smith YANIQUE iSTA Chem8+ (20:37:25) Na: 140 mEq/L K: 3.0 mEq/L Cl: 103 mEq/L iCa: 0.52 mmol/L TCO2: 18 mmol/L Glu: 267 mg/dL BUN: 124 mg/dL Crea: 8.1 mg/dL Hct: 28 % Hb: 9.5 g/dL A ................... ................... ................... ................... ................... ................... ................... ........ Environmental Air Specialist Note From Luis Tamra: Counts Include 234 [facility] At [facility] Environmental Air Specialist Kelsie Smith SC6 dispatched to a red [...] and SOB on exertion, and had weak screw machine repairer strength in her left hand. Blood sugar 324. Pt used 13U tresiba nightly, and had not started any new meds recently. She was instructed by her Benefits Clerk in the past week to DC her lasix, and stated she performed lab work in the past week through her Nephrology office. [facility] consulted; #20 IV placed in her left AC, BMP acquired, and she was given 500 mL NS. BUN and creatinine were critically high; [facility] was consulted again, and pt was informed that she must be transported to the ED immediately. Pt agreed and 911 was called. [facility] arrived and transported her to [place] ED. ................... ................... ................... ................... ................... ................... ................... ........ Disposition: Jesse BELLO MD [address] [place] [address],[address], [place], [address], CHARLIE DICKERSON 09/07/2023 21:09:47 OBGyn Episode No OBEpisode recorded.
--- OUTSIDE RECORDS SUMMARY | 2024-07-28 15:25 | XMS_ITS | Encounter Summary ---
Author Organization [employer] Address [address] [facility] 7t [place] [address] Care Team Providers Care Child Development Director Name Role Phone Senait Pal MD Primary Care Provider [phone] Gustabo Fernandez PharmD Unavailable [phone] Encounter Details Date Type Department Care Team (Late st Contact Info) Description 06/11/2022 Abstract [facility] [address] [place] [address] [phone] Senait Pal MD [address] [place], [place] [phone] Social History Tobacco Use Types Packs/Day Years [...] Description 08/24/2024 1:00 PM EDT Office Visit [facility] [address] [place] [address] [phone] Senait Pal MD [address] [place], [place] [phone] documented as of this encounter Visit Diagnoses Not on filedocumented in this encounter Care Teams Child Development Director Relationship Specialty Start Date End Date Senait Pal MD [address] [place] [address] PCP - General Family Medicine 02/22/20 Gustabo Fernandez, Agnes [address] [place] [address] Pharmacist Internal Medicine 07/16/22 [facility] 09/14/23 documented as of this encounter
--- OUTSIDE RECORDS SUMMARY | 2024-07-28 15:25 | XMS_ITS | Encounter Summary ---
Author Organization [employer] Address [address] [facility] [address] [place] [address] Care Team Providers Care Transformation Consultant Name Role Phone Senait Pal MD Primary Care Provider [phone] Gustabo Fernandez PharmD Unavailable [phone] Reason for Referral * Imaging (Urgent) - Closed Specialty Diagnoses / Procedures Referred By Contac t Referred To Contact Radiology Diagnoses Open wound of right great toe, initial encounter Procedures MRI FOOT RIGHT W WO CONTRAST Senait Pal MD [address] [place] [address] Phone: tel: fax: [address] Phone: tel: fax: Referral ID Status Reason Start Date Expiration Date Visits Re quested Visits Authorized [id number] Closed 09/16/2023 09/15/2024 1 1 Encounter Details Date Type Department Care Team (Late st Contact Info) Description 09/16/2023 Orders Only [facility] [address] [place], [place] [phone] Senait Pal MD [address] [place], [place] [phone] Open wound of right great toe, initial [...] Description 08/24/2024 1:00 PM EDT Office Visit [facility] [address] [place] [address] Senait Pal MD [address] [place] [address] Scheduled Orders Name Type Priority Associated Diagnoses [...] documented as of this encounter Care Teams Transformation Consultant Relationship Specialty Start Date End Date Senait Pal MD [address] [place] [address] PCP - General Family Medicine 02/22/20 Gustabo Fernandez PharmD [address] [place] [address] Pharmacist Internal Medicine 07/16/[address] [facility] 09/14/23 documented as of this encounter
--- OUTSIDE RECORDS SUMMARY | 2024-07-28 15:25 | XMS_ITS | Encounter Summary ---
Author Organization [employer] Address [address] [place] [address] Care Team Providers Care Cook Ice Cream Name Role Phone Senait Pal MD Primary Care Provider [phone] Gustabo Fernandez PharmD Unavailable [phone] Encounter Details Date Type Department Care Team ([facility] st Contact Info) Description 04/17/2024 Orders Only [facility] 230 [place], [place] [phone] Senait Pal MD [address] [place], [place] [phone] Dark stools (Primary Dx); Diarrhea, unspecified type; [...] Frequency of Binge Drinking Not on file 08/0 08/2023 Score 0 10/22/2023 Depression Answer Date [...] Description 08/24/2024 1:00 PM EDT Office Visit [facility] [address] [place] [address] Senait Pal MD [address] [place] [address] Scheduled Orders Name Type Priority Associated Diagnoses [...] documented as of this encounter Care Teams Cook Ice Cream Relationship Specialty Start Date End Date Senait Pal MD [address] [place] [address] PCP - General Family Medicine 02/22/20 Gustabo Fernandez, Agnes [address] [place] [address] Pharmacist Internal Medicine 07/16/22 [facility] 09/14/23 documented as of this encounter
--- OUTSIDE RECORDS SUMMARY | 2024-07-28 15:25 | XMS_ITS | Encounter Summary ---
Author Organization [employer] Address [address] [facility] 7t [place] [address] Care Team Providers Care Casserole Preparer Name Role Phone Senait Pal MD Primary Care Provider [phone] Gustabo Fernandez PharmD Unavailable [phone] Reason for Referral * Consultation (STAT) - Closed Specialty Diagnoses / Procedures Referred By Contac t Referred To Contact Neurology Diagnoses Hearing loss of left ear, unspecified hearing loss type Meningioma (CMS/HCC) Senait Pal MD [address] [place] [address] Phone: tel: fax: Bianca Lockett MD [address] [place] [address] [place] [address] Phone: tel: fax: Referral ID Status Reason Start Date Expiration Date V isits Requested Visits Authorized [id number] Closed Specialty Services Required 01/15/2024 01/14/2025 1 1 Encounter Details Date Type Department Care Team (Late st Contact Info) Description 01/15/2024 Orders Only [facility] [address] [place] [address] Senait Pal MD [address] [place], [place] Hearing loss of left ear, unspecified [...] Description 08/24/2024 1:00 PM EDT Office Visit [facility] [address] [place] [address] Senait Pal MD [address] [place] [address] Scheduled Referrals Name Type Priority Associated Diagnoses [...] documented as of this encounter Care Teams Casserole Preparer Relationship Specialty Start Date End Date Senait Pal MD [address] [place] [address] PCP - General Family Medicine 02/22/20 Gustabo Fernandez, Agnes [address] [place] [address] Pharmacist Internal Medicine 07/16/22 [facility] 09/14/23 documented as of this encounter
--- OUTSIDE RECORDS SUMMARY | 2024-07-28 15:25 | XMS_ITS | Encounter Summary ---
Author Organization [employer] Address [address] [facility] 7t [place] [address] Care Team Providers Care Compensation Director Name Role Phone Senait Pal MD Primary Care Provider [phone] Gustabo Fernandez PharmD Unavailable [phone] Reason for Referral * Imaging (Routine) - Closed Specialty Diagnoses / Procedures Referred By Contac t Referred To Contact Diagnoses Smoking greater than [address] Lung Screening Low dose Senait Pal MD [address] [place] [address] Phone: tel: fax: [facility] MRI and CT Scan [address] [place] [address] Phone: tel: fax: Referral ID Status Reason Start Date Expiration Date Visits Re quested Visits Authorized [id number] Closed 04/01/2022 04/01/2023 1 1 Encounter Details Date Type Department Care Team (Late st Contact Info) Description 04/01/2022 Orders Only [facility] [address] [place] [address] [phone] Senait Pal MD [address] [place], [place] [phone] Smoking greater than 20 pack years (Primary [...] Description 08/24/2024 1:00 PM EDT Office Visit [facility] [address] [place] [address] Senait Pal MD [address] [place] [address] Scheduled Orders Name Type Priority Associated Diagnoses [...] colon documented in this encounter Care Teams Compensation Director Relationship Specialty Start Date End Date Senait Pal MD [address] [place] [address] PCP - General Family Medicine 02/22/20 Gustabo Fernandez, PharmD [address] [place] [address] Pharmacist Internal Medicine 07/16/22 [facility] 09/14/23 documented as of this encounter
--- OUTSIDE RECORDS SUMMARY | 2024-07-28 15:25 | XMS_ITS | Encounter Summary ---
Author Organization [employer] Address [address] [facility] 7t [place] [address] Care Team Providers Care Soft Boarder Name Role Phone Senait Pal MD Primary Care Provider [phone] Gustabo Fernandez PharmD Unavailable [phone] Encounter Details Date Type Department Care Team (Late st Contact Info) Description 04/26/2022 Orders Only [facility] [address] [place], [place] [phone] Senait Pal MD [address] [place], [place] [phone] Tobacco user (Primary Dx) Social History Tobacco [...] Description 08/24/2024 1:00 PM EDT Office Visit [facility] [address] [place], [place] [phone] Senait Pal MD [address] [place] [address] documented as of this encounter Visit Diagnoses Diagnosis Tobacco user- Primary Tobacco use disorder documented in this encounter Care Teams Soft Boarder Relationship Specialty Start Date End Date Senait Pal MD [address] [place] [address] PCP - General Family Medicine 02/22/20 Gustabo Fernandez, Agnes [address] [place] [address] Pharmacist Internal Medicine 07/16/22 [facility] 09/14/23 documented as of this encounter
--- OUTSIDE RECORDS SUMMARY | 2024-07-28 15:25 | XMS_ITS | Encounter Summary ---
Author Organization [employer] Address [address] [facility] [address] 7t [place] [address] Care Team Providers Care Hat Liner Name Role Phone Senait Pal MD Primary Care Provider [phone] Gustabo Fernandez PharmD Unavailable [phone] Reason for Visit * Reason Comments Med Refill Encounter Details Date Type Department Care Team ([facility] st Contact Info) Description 03/23/2024 Refill [facility] 230 [place], [place] [phone] Senait Pal MD [address] [place], [place] [phone] Social History Tobacco Use Types Packs/Day Years [...] Description 08/24/2024 1:00 PM EDT Office Visit [facility] 230 [place] [address] Senait Pal MD [address] [place] [address] documented as of this encounter Goals Goal [...] as of this encounter Care Teams Hat Liner Relationship Specialty Start Date End Date Senait Pal MD [address] [place] [address] PCP - General Family Medicine 02/22/20 Gustabo Fernandez, HarshaD [address] [place] [address] Pharmacist Internal Medicine 07/16/22 [facility] 09/14/23 documented as of this encounter
--- OUTSIDE RECORDS SUMMARY | 2024-07-28 15:25 | XMS_ITS | Encounter Summary ---
Author Organization [employer] Address [address] [facility] [address] 7[address] [place] [address] Care Team Providers Care Water Softener Servicer And Installer Name Role Phone Senait Pal MD Primary Care Provider [phone] Gustabo Fernandez PharmD Unavailable [phone] Reason for Visit * Reason Comments Med Refill Encounter Details Date Type Department Care Team ([facility] st Contact Info) Description 10/09/2023 Refill [facility] [address] [place], [place] [phone] Senait Pal MD 230 [place], [place] [phone] Type 2 diabetes mellitus with stage 4 chronic kidney disease, with long-term current use of insulin ([facility]) Social History Tobacco Use Types Packs/Day Years [...] Description 08/24/2024 1:00 PM EDT Office Visit [facility] [address] [place] [address] Senait Pal MD [address] [place] [address] documented as of this encounter Goals Goal [...] disease, with long-term current use of insulin ([facility]) documented in this encounter Additional Health Concerns Assessment Noted Time PHQ-9 Depression Total Score: 7 11/01/19 23 11:04 AM EDT documented as of this encounter Care Teams Water Softener Servicer And Installer Relationship Specialty Start Date End Date Senait Pal MD [address] [place] [address] PCP - General Family Medicine 02/22/20 Gustabo Fernandez, HarshaD [address] [place] [address] Pharmacist Internal Medicine 07/16/22 [facility] 09/14/23 documented as of this encounter
--- OUTSIDE RECORDS SUMMARY | 2024-07-28 15:25 | XMS_ITS | Encounter Summary ---
Author Organization [employer] Address [address] [facility] 7t [place] [address] Care Team Providers Care Celery Wrapper Name Role Phone Senait Pal MD Primary Care Provider [phone] Gustabo Fernandez PharmD Unavailable [phone] Reason for Referral * Imaging (Routine) - Closed Specialty Diagnoses / Procedures Referred By Contac t Referred To Contact Diagnoses Enlarged lymph node in neck Procedures US guided biopsy lymph node superficial Senait Pal MD [address] [place] [address] Phone: tel: fax: [address] Phone: tel: fax: Referral ID Status Reason Start Date Expiration Date Visits Re quested Visits Authorized [id number] Closed 07/03/2022 12/30/2022 1 1 Encounter Details Date Type Department Care Team (Late st Contact Info) Description 07/03/2022 Orders Only [facility] [address] [place], [place] [phone] Senait Pal MD [address] [place], [place] [phone] Enlarged lymph node in neck (Primary Dx) [...] PM EDT Office Visit [facility] [address] [place] [address] Senait Pal MD [address] [place] [address] Scheduled Orders Name Type Priority Associated Diagnoses Orde r Schedule US guided biopsy lymph node superficial Imaging Routine Enlarged lymph node in neck Expected: 07/03/2022 (Approximate), Expires: 07/04/2023 documented as of this encounter Visit Diagnoses Diagnosis Enlarged lymph node in neck- Primary documented in this encounter Care Teams Celery Wrapper Relationship Specialty Start Date End Date Senait Pal MD [address] [place] [address] PCP - General Family Medicine 02/22/20 Gustabo Fernandez, PharmD [address] [place] [address] Pharmacist Internal Medicine 07/16/22 [facility] 09/14/23 documented as of this encounter
--- OUTSIDE RECORDS SUMMARY | 2024-07-28 15:25 | XMS_ITS | Encounter Summary ---
Author Organization [employer] Address [address] [facility] [address] 7t [place] [address] Care Team Providers Care Cook Seafood Name Role Phone Senait Pal MD Primary Care Provider [phone] Gustabo Fernandez PharmD Unavailable [phone] Encounter Details Date Type Department Care Team ([facility] st Contact Info) Description 10/30/2023 Orders Only [facility] [address] [place], [place] [phone] Senait Pal MD [address] [place] [address] Social History Tobacco Use Types Packs/Day Years [...] Description 08/24/2024 1:00 PM EDT Office Visit [facility] [address] [place] [address] Senait Pal MD [address] [place] [address] documented as of this encounter Goals Goal [...] as of this encounter Care Teams Cook Seafood Relationship Specialty Start Date End Date Senait Pal MD [address] [place] [address] PCP - General Family Medicine 02/22/20 Gustabo Fernandez PharmD [address] [place] [address] Pharmacist Internal Medicine 07/16/22 [facility] 09/14/23 documented as of this encounter
--- OUTSIDE RECORDS SUMMARY | 2024-07-28 15:25 | XMS_ITS | Encounter Summary ---
Author Organization [employer] Address [address] [facility] [address] 7[address] [place] [address] Care Team Providers Care Fire Control Technician G Name Role Phone Senait Pal MD Primary Care Provider [phone] Gustabo Fernandez PharmD Unavailable [phone] Reason for Visit * Reason Onset Date Comments Durable Medical Equipment 10/01/2023 Encounter Details Date Type Department Care Team (Late st Contact Info) Description 10/01/2023 Telephone [facility] [address] [place], [place] [phone] Senait Pal MD [address] [place], [place] [phone] Durable Medical Equipment Social History Tobacco Use [...] - 10/01/2023 12:24 PM EDT Tc from [facility] calling to request DME raised toilet seat transfer tub bench Please fax to [phone] documented in this encounter Plan of Treatment Upcoming Encounters Date Type Department Care Team (Late st Contact Info) Description 08/24/2024 1:00 PM EDT Office Visit [facility] [address] [place] [address] Senait Pal MD [address] [place] [address] documented as of this encounter Goals Goal [...] documented as of this encounter Care Teams Fire Control Technician G Relationship Specialty Start Date End Date Senait Pal MD [address] [place] [address] PCP - General Family Medicine 02/22/20 Gustabo Fernandez, HarshaD [address] [place] [address] Pharmacist Internal Medicine 07/16/22 [facility] 09/14/23 documented as of this encounter
--- OUTSIDE RECORDS SUMMARY | 2024-07-28 15:25 | XMS_ITS | Encounter Summary ---
Author Organization [employer] Address [address] [facility] [address] 7[address] [place] [address] Care Team Providers Care Chain Mender Name Role Phone Senait Pal MD Primary Care Provider [phone] Gustabo Fernandez PharmD Unavailable [phone] Reason for Visit * Reason Onset Date Comments Hospital Follow-up 09/24/2023 Encounter Details Date Type Department Care Team ([facility] st Contact Info) Description 09/24/2023 Telephone [facility] [address] [place], [place] [phone] Senait Pal MD [address] [place], [place] [phone] Hospital Follow-up Social History Tobacco Use Types [...] Description 08/24/2024 1:00 PM EDT Office Visit [facility] [address] [place] [address] Senait Pal MD [address] [place] [address] documented as of this encounter Goals Goal [...] documented as of this encounter Care Teams Chain Mender Relationship Specialty Start Date End Date Senait Pal MD [address] [place] [address] PCP - General Family Medicine 02/22/20 Gustabo Fernandez, PharmD [address] [place] [address] Pharmacist Internal Medicine 07/16/22 [facility] 09/14/23 documented as of this encounter
== END 2024-07-28 15:19 | disposition home or self-care (01) ==
LOC: HO.HKA 14:11
PROVIDERS: PCP Family Medicine; Visit Provider Internal Medicine Hypertension Specialist
DX: N18.6 End stage renal disease (principal); Z99.2 Dependence on renal dialysis
CPT/HCPCS: 99024

== ENCOUNTER → 2024-07-28 14:11 | Outpatient (BNVA) | payer OTHER, SELFPAY | PROVIDERS: PCP Family Medicine; Visit Provider Internal Medicine Hypertension Specialist | DX: I12.9 Hypertensive chronic kidney disease with stage 1 through stage 4 chronic kidney disease, or unspecified chronic kidney disease (principal); N18.6 End stage renal disease; Z99.2 Dependence on renal dialysis | CPT/HCPCS: 99212 ==

== ENCOUNTER 2024-08-24 14:35 | Outpatient (REF) | payer OTHER, SELFPAY ==
[2024-08-24 16:05] LABS: MANUAL DIFF FLAG NO
[2024-08-24 16:09] LABS: Basophils Percent Auto 0.5 % (0-2); Eosinophils Absolute Auto 0.2 X10*3/uL (0.0-0.4); Eosinophils Percent Auto 3.3 % (0-4); Hematocrit 30.6 % (37.0-47.0); Hemoglobin 9.6 g/dl (12.0-16.0); Imm Gran Abs Auto 0.02 X10*3/uL (0.00-0.03); Imm Gran Pct Auto 0.3 % (0.0-0.4); Lymphocytes Absolute Auto 1.2 X10*3/uL (1.2-4.9); Lymphocytes Percent Auto 15.6 % (20-40); Mean Corpuscular HGB Conc 31.4 g/dl (31.0-35.0); Mean Corpuscular Hemoglobin 29.5 pg (27.0-33.0); Mean Corpuscular Volume 94.2 fL (80.0-98.0); Mean Platelet Volume 10.6 fL (9.4-12.3); Monocytes Absolute Auto 0.8 X10*3/uL (0.1-1.2); Monocytes Percent Auto 10.3 % (2-11); Neutrophils Absolute Auto 5.2 x10*3/uL (2.0-8.3); Platelet Count 150 X10*3/uL (160-400); Red Blood Count 3.25 X10*6/uL (4.20-5.50); Red Cell Distribution Width 15.7 % (11.0-16.0); White Blood Count 7.4 X10*3/uL (4.8-10.8)
[2024-08-24 16:15] LABS: Estimated Glomerular Filt Rate 15
[2024-08-24 16:26] LABS: Cholesterol 128 mg/dL (<200); HDL Cholesterol 53 mg/dL (>40); LDL Cholesterol Calculated 62 mg/dL (<100); Triglycerides 65 mg/dL (<150)
--- OUTSIDE RECORDS SUMMARY | 2024-08-24 16:26 | XMS_ITS | Encounter Summary ---
Author Organization [employer] Address [address] [facility] [address] [place] [address] Care Team Providers Care Clinical Exercise Specialist Name Role Phone Senait Pal MD Primary Care Provider [phone] Gustabo Fernnadez PharmD Unavailable [phone] Reason for Visit * Reason Onset Date Comments chart prep 08/20/2024 Encounter Details Date Type Department Care Team ([facility] st Contact Info) Description 08/20/2024 Telephone [facility] [address] [place], [place] [phone] Senait Pal MD [address] [place], [place] [phone] chart prep Social History Tobacco Use Types Packs/Day Years [...] Telephone Encounter - Coreen Mondragon [place] - 08/20/2024 3:37 PM EDT ..Chart Prep Labs: not done Images: not applicable Vaccines due: Covid Due and RSV in Pharmacy Due Referrals: Completed Screenings: Eye Exam Overdue care gaps: A1C, Glucose, SDOH, PQ9, and Disability documented in this encounter Plan of Treatment Upcoming Encounters Date Type Department Care Team (Late st Contact Info) Description 10/08/2024 11:00 AM EDT Office Visit [facility] [address] [place] [address] Senait Pal MD [address] [place] [address] documented as of this encounter Goals Goal Patient Goal Type Associated Problems Recent Progress Patient-Stated? Author Blood Pressure < 140/90 Blood Pressure 140/62( 025 1:25 PM EDT) No Gustabo Fernandez, PharmD Quit using tobacco (cigarettes, smokeless, etc) Tobacco Use No Fernandez, Gustabo, PharmD documented as of this encounter Visit Diagnoses Not on filedocumented in this encounter Additional Health Concerns Assessment Noted Time PHQ-9 Depression Total Score: 7 11/01/19 23 11:04 AM EDT documented as of this encounter Care Teams Clinical Exercise Specialist Relationship Specialty Start Date End Date Senait Pal MD [address] [place] [address] PCP - General Family Medicine 02/22/20 Gustabo Fernandez, HarshaD [address] [place] [address] Pharmacist Internal Medicine 07/16/22 [facility] 09/14/23 documented as of this encounter
[2024-08-24 16:27] LABS: Reflex LDLD? No
[2024-08-24 16:41] LABS: TSH reflex Free T4 7.15 uIU/mL (0.32-4.0)
[2024-08-24 17:43] LABS: Free T4 (Free Thyroxine) 1.11 ng/dL (0.71-1.85)
== END 2024-08-24 14:36 | disposition home or self-care (01) ==
LOC: HO.HHCL 14:35
PROVIDERS: Internal Medicine; Visit Provider Family Medicine
DX: E78.5 Hyperlipidemia, unspecified (principal); E89.0 Postprocedural hypothyroidism; R19.7 Diarrhea, unspecified; M86.9 Osteomyelitis, unspecified
CPT/HCPCS: 36415; 80061; 82565; 84439; 84443; 85025

== ENCOUNTER 2024-08-27 11:55 | Outpatient (AMB) | payer OTHER, SELFPAY ==
--- NOTE | 2024-08-27 12:01 | HO.NEPHOV ---
Vital Signs 08/27/24 12:02 Height 5 ft Weight 144 lb BMI 28.1 BP 124/60 Blood Pressure Location Lt brachial Position Sitting Pulse 80 Pulse Source Pulse Oximeter Pulse Oximetry (%) 95 Oxygen Delivery Method Room Air Intake Visit Reasons: 1 MO FU/LVM Biology Adjunct Instructor Required: No Accompanied by: Grand Child Allergies ALLYSSA Inhibitors [ALLYSSA INHIBITORS] Allergy (Mild, Verified 08/27/24 12:04) COUGH cilostazol [CILOSTAZOL] Allergy (Mild, Verified 08/27/24 12:04) COUGH PFSH Medical History Osteomyelitis CHF exacerbation Anemia CKD (chronic kidney disease) stage 5, GFR less than 15 ml/min Hypocalcemia Nicotine dependence, cigarettes, uncomplicated Atherosclerotic cardiovascular disease Thyroid cancer (~2008) 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) Hypothyroidism associated with surgical procedure (~2008) Uncontrolled type 2 diabetes mellitus with hyperglycemia (~1986) Pneumonitis ARDS (adult respiratory distress syndrome) Neuropathy Asthma-COPD overlap syndrome Anemia HTN (hypertension) Hypercholesteremia Surgical History History of thyroidectomy History of back surgery History of 2 sections History of angioplasty History of amputation of left great toe Family History Mother Hypertension Diabetes Father AA (alcohol abuse) Social History Household Members: Family Housing: Apartment Do you presently have 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 or other home services: Yes ([employer]) Alcohol intake: never 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 Tobacco Use Status: Former Tobacco user Years Smoked: 45 Advance Directives Date on File: 09/13/20 service: No Current occupational status: disabled Physical Exam Vital Signs: Last Vital Signs Pulse 80 08/27/24 12:02 BP 124/60 08/27/24 12:02 Pulse Ox 95 08/27/24 12:02 Oxygen Delivery Method Room Air 08/27/24 12:02 BMI result Body Mass Index 28.1 Results Reviewed Nephrology Results: Hgb 9.6 g/dl (12.0-16.0) L 08/24/24 WBC 7.4 X10*3/uL (4.8-10.8) 08/24/24 Plt Count 150 X10*3/uL (160-400) L 08/24/24 Sodium 138 mmol/L (135-145) 04/22/24 Potassium 3.5 mmol/L (3.3-5.1) 04/22/24 Chloride 105 mmol/L (96-108) 04/22/24 Carbon Dioxide 25 mmol/L (22-29) 04/22/24 BUN 37 mg/dL (9-16) H 04/22/24 Creatinine 3.05 mg/dL (0.5-1.4) H 08/24/24 Calcium 4.2 mg/dL (8.4-10.2) L* 04/22/24 Phosphorus 5.0 mg/dL (2.7-4.5) H 04/22/24 Assessment & Plan Assessment & Plan (1) ESRD needing dialysis: Code(s): N18.6 - End stage renal disease; Z99.2 - Dependence on renal dialysis Category: Medical Plan see dialysis emr Coding Level of Care Code Global (81965) Diagnoses ESRD needing dialysis N18.6; Z99.2
[2024-08-27 12:02] VITALS: BP 124/60; PULSE 80; O2SAT 95; BMI 28.1
--- OUTSIDE RECORDS SUMMARY | 2024-08-27 14:01 | XMS_ITS | Encounter Summary ---
Author Organization [employer] Address [address] [place] [address] 7t [place] [address] Care Team Providers Care Rn Traveling Name Role Phone Senait Pal MD Primary Care Provider [phone] Gustabo Fernandez PharmD Unavailable [phone] Encounter Details Date Type Department Care Team (Late st Contact Info) Description 11/01/2022 Abstract [facility] [address] [place] [address] [phone] Senait Pal MD [address] [place], [place] [phone] Social History Tobacco Use Types Packs/Day Years [...] Description 10/08/2024 11:00 AM EDT Office Visit [facility] [address] [place], [place] [phone] Senait Pal MD [address] [place] [address] [phone] documented as of this encounter Goals Goal Patient Goal Type Associated Problems Recent Progress Patient-Stated? Author Blood Pressure < 140/90 Blood Pressure 140/62( 025 1:25 PM EDT) No Gustabo Fernandez PharmD Quit using tobacco (cigarettes, smokeless, etc) Tobacco Use No Gustabo Fernandez PharmD documented as of this encounter Procedures Procedure Name Priority Date/Time Associated Diagnosis Comments DIABETES EYE EXAM Routine 08/04/2022 documented in this encounter Results * Diabetes Eye Exam (08/04/2022) Eye Exam Normal Normal [facility] Un[facility]mary Pcp HEALTH MAINTENANCE Final Result documented in this encounter Visit Diagnoses Not on filedocumented in this encounter Additional Health Concerns Assessment Noted Time PHQ-9 Depression Total Score: 7 11/01/19 23 11:04 AM EDT documented as of this encounter Care Teams Rn Traveling Relationship Specialty Start Date End Date Senait Pal MD [address] [place] [address] PCP - General Family Medicine 02/22/20 Gustabo Fernandez PharmD [address] [place] [address] Pharmacist Internal Medicine 07/16/22 [facility] 09/14/23 documented as of this encounter
== END 2024-08-27 12:16 | disposition home or self-care (01) ==
LOC: HO.HKA 11:56
PROVIDERS: PCP Family Medicine; Visit Provider Internal Medicine Hypertension Specialist
DX: N18.6 End stage renal disease (principal); Z99.2 Dependence on renal dialysis
CPT/HCPCS: 99024

== ENCOUNTER → 2024-08-27 11:55 | Outpatient (BNVA) | payer OTHER, SELFPAY | PROVIDERS: PCP Family Medicine; Visit Provider Internal Medicine Hypertension Specialist | DX: N18.6 End stage renal disease (principal); Z99.2 Dependence on renal dialysis | CPT/HCPCS: 99212 ==

== ENCOUNTER → 2024-09-17 10:00 | Outpatient (BNV) | payer OTHER, SELFPAY | PROVIDERS: PCP Family Medicine | DX: I49.1 Atrial premature depolarization (principal); I49.3 Ventricular premature depolarization | CPT/HCPCS: 78452; 93016; 93018 ==

== ENCOUNTER → 2024-09-17 10:35 | Outpatient (REF) | payer OTHER, SELFPAY ==
--- NOTE | ~2024-09-17 | NM_ITS ---
Lexiscan Myocardial perfusion study Indication: Congestive heart failure to evaluate for myocardial ischemia Technique: The patient was brought in for a Lexiscan perfusion study on September 17, 2024 and was injected 0.4 mg of Lexiscan intravenously. Within a minute of this injection 25 mCi of sestamibi was given intravenously. Images were obtained using the SPECT gamma camera interlaced with the gating device. Images were obtained in supine position. Resting perfusion study was performed on September 24, 2024. Patient was administered 25 mCi of sestamibi intravenously at rest. Images were then obtained in supine position. Images obtained without without CT attenuation. Total DLP 65 mGy-cm. Images were processed with the software and compared side to side in short axis, horizontal long axis and vertical long axis views. Findings: The stress perfusion study showed nonattenuated images show some thinning of the basal lateral as well as mildly reduced uptake in the basal inferoseptal and basal inferolateral as well as basal inferior wall of the LV myocardium. Attenuated corrected images show mildly reduced uptake in the distal anterior moderately reduced uptake in the apex of the LV myocardium. There is suggestion of left ventricle hypertrophy. The gated study shows reduced LV systolic function with calculated LVEF of 35%. LV cavity is mildly to moderately dilated in size. The gated study shows diffusely reduced wall thickening and contraction of segments. Resting study shows no change in perfusion pattern compared to stress perfusion study. Gating at rest reveals diffusely reduced wall motion with ejection fraction at 39%. The findings are consistent with no clear reversible defect suggestive of ischemia. NM/NM cardiolite stress test Impression: 1. Myocardial perfusion imaging study shows no myocardial ischemia 2. Gated LVEF is 35% with stress and 39% with rest 3. Transient ischemic dilatation not present but LV cavity is dilated Nondiagnostic changes on EKG. Electronically signed by: Satinder Christopher MD 09/24/2024 04:43 PM EDT
--- NOTE | 2024-09-17 10:00 | CA_ITS ---
Acquisition Time: 2024-09-17 10:34:29 Total Exercise Time: 00:02:00 Test Indications: I25.10 Medications: SEE H&P Protocol: LEXISCAN Max HR: 91 BPM 60% of Pred: 150 BPM Max BP: 134/60 mmHG Max Work Load: 1.0 METS Pharmacological stress test with Lexiscan while pt swings her legs in chair, without any reports of symptoms, with isolated PACs and PVCs, with normotensive response to injection. Nondiagnostic EKG for ischemia. In recovery, pt continued to feel well. Nuclear images pending. Test reviewed with Dr. Christopher. Referred By: Grace Allen Electronically Signed By: Pérez Hernandez
--- OUTSIDE RECORDS SUMMARY | 2024-09-17 11:20 | XMS_ITS | Clinical Summary ---
Demographics Address [address] [facility] [address] [place] [address] Home Phone Preferred Language es Marital Status Unknown Pentecostal Affiliation Unknown Race White Ethnic Group Unknown Author Organization [facility] Address [address] [place] [address] Phone Care Team Providers Care Statistical Clerk Name Role Phone Senait Pal MD Primary Care Provider [phone] Allergies Active Allergy Reactions Criticality Noted Date [...] FOR SEVERE PAIN 2 Active calcium carbonate (OS-MEGAHN) 600 MG tablet Take 600 mg by [...] 48 Years) Discontinued 10/31/2022, 02/26/[address] [place] [id number] [facility] ([id number]) MARYELLEN SPENCER [id number] [facility] ([id number]) MARYELLEN SPENCER [phone] Care Teams Statistical Clerk Relationship Specialty Start Date End Date Senait Pal MD PCP - General 03/28/20
--- OUTSIDE RECORDS SUMMARY | 2024-09-17 11:20 | XMS_ITS | Encounter Summary ---
Author Organization [employer] Address [address] [place] [address] 7t [place] [address] Care Team Providers Care Steam Plant Records Clerk Name Role Phone Senait Pal MD Primary Care Provider Gustabo Fernandez PharmD Unavailable [phone] Encounter Details Date Type Department Care Team (Late st Contact Info) Description 11/01/2022 Abstract [facility] [address] [place] [address] [phone] Senait Pal MD [address] [place], [place] [phone] Social History Tobacco Use Types Packs/Day Years [...] Description 10/08/2024 11:00 AM EDT Office Visit [facility] [address] [place], [place] [phone] Senait Pal MD [address] [place] [address] [phone] documented as of this encounter Goals Goal [...] Eye Exam (08/04/2022) Eye Exam Normal Normal [place] [facility] Pcp HEALTH MAINTENANCE Final Result documented in this encounter Visit Diagnoses Not on filedocumented in this encounter Additional Health Concerns Assessment Noted Time PHQ-9 Depression Total Score: 7 11/01/19 23 11:04 AM EDT documented as of this encounter Care Teams Steam Plant Records Clerk Relationship Specialty Start Date End Date Senait Pal MD [address] [place] [address] PCP - General Family Medicine 02/22/20 Gustabo Fernandez PharmD [address] [place] [address] Pharmacist Internal Medicine 07/16/22 [facility] 09/14/23 documented as of this encounter
--- OUTSIDE RECORDS SUMMARY | 2024-09-17 11:20 | XMS_ITS | Data Portability ---
Author Organization [employer], [facility] Address [address] [place] [address] Care Team Providers Care Knife Setter Assembler Name Role Phone HIM CCA OTHER Assessment [...] in the field was performed by my planer tailer colleague, as noted above, I provided real-time [...] None recorded. Lab BMP, serum or plasma 06/22/ 2024 06/22/2 024 [facility], [address] [place] [address], [id number] 4 20:52:48 hemoglobin + hematocrit, blood 2023 024 [facility], [address] [place] [address], [id number] 4 20:51:45 Referral None recorded. Procedures None recorded. Surgeries None recorded. Imaging None recorded. Medication Orders sodium chloride 0.9 % intravenous solution 2023 024 [facility], [address] [place] [address], [id number], 4 20:51:12 doxycycline hyclate 100 mg capsule 2022 023 [email or web address] 5 Not available 3 15:43:21 doxycycline hyclate 100 mg capsule 2022 023 [facility], [address] [place] [address], [id number], 3 15:51:20 Patient TargetsNo targets recorded. Patient InstructionsNo instructions recorded. Reason for Referral None Reported. Results Created Date Observation Date Name Description Value Unit Range Abnormal Flag Note LastModifiedBy Organization Detail LastModifiedTime 09/07/19 24 09/07/2023 BMP, serum or plasm a BUN 124 Not Available Main - Ins [address], [id number] 09/07/2023 20:50:35 09/07/19 24 09/07/2023 BMP, serum or plasm a Ca 0.52 Not Available Main - Ins [address], [address] 09/07/2023 20:50:35 09/07/19 24 09/07/2023 BMP, serum or plasm a CI- 103 Not Available Main - Ins [address], [id number] 09/07/2023 20:50:35 09/07/19 24 09/07/2023 BMP, serum or plasm a CRE 8.1 Not Available Main - Ins [address], [address] 09/07/2023 20:50:35 09/07/19 24 09/07/2023 BMP, serum or plasm a GLU 267 Not Available Main - Ins [address], [phone] 09/07/2023 20:50:35 09/07/19 24 09/07/2023 BMP, serum or plasm a K+ 3.0 Not Available Main - Ins [address], [address] 09/07/2023 20:50:35 09/07/19 24 09/07/2023 BMP, serum or plasm a Na+ 140 Not Available Main - Ins [address], [address] [place] [address] 09/07/2023 20:50:35 09/07/19 24 09/07/2023 BMP, serum or plasm a tCO2 18 Not Available Main - Ins [address], [id number] 09/07/2023 20:50:35 09/07/19 24 09/07/2023 hemog lobin + hemat ocrit , blood Hemoglobin 9.5 Not Available Main - [facility] [address] [place] [address], [id number] 09/07/2023 20:51:28 09/07/19 24 09/07/2023 hemog lobin + hemat ocrit , blood Hematocrit 28 Not Available [facility] [address] [place] [address], [id number] 09/07/2023 20:51:28 Result Notes None recorded. Medical [...] Pulse oximetry Body temperature Heart rate Systolic And Diastolic Provider Name and Address Organization Details Last Updated DateTime 3 14617.7 6 g 16 /min 99 % 99 % 97.8 [degF] 75 /min 151/71 mm[Hg] Not Available [facility] 3 15:40:42 Date Recorded Heart rate Oxygen saturation Oxygen saturation in Arterial blood by Pulse oximetry Respiratory rate Body temperature Systolic And Diastolic Provider Name and Address Organization Details Last Updated DateTime 4 67 /min 100 % 100 % 16 /min 97.5 [degF] 113/60 mm[Hg] Not Available [facility] 4 20:36:59 Date Recorded Heart rate Oxygen saturation Oxygen saturation in Arterial blood by Pulse oximetry Respiratory rate Body temperature Systolic And Diastolic Provider Name and Address Organization Details Last Updated DateTime 2 84 /min 99 % 99 % 18 /min 97.8 [degF] 137/65 mm[Hg] Not Available [facility] 2 19:10:22 Social History None recorded. Functional [...] Note [id number] Kermit Tomas MD Main - [address] [phone] 11/01/2021 19:10:19 11/01/2021 19:13:43 [id number] Noe Cortes MD [facility] - [address] [phone] 08/29/2022 15:40:31 08/30/2022 10:51:33 Cellulitis of lower limb 992846889 L03.119 46688 CEDRICK BELLO MD Main - [address] [phone] 09/07/2023 19:32:58 09/08/2023 16:45:57 Spayt-th-cpwyrzv renal failure [id number] N17.9 Evaluation in the field was performed by my planer tailer colleague, as noted above, I provided real-time [...] RA, T 98.3 Exam : Mildly decreased manufacturing technician on the left hand but no other [...] ml-Unable to tolerate PO Kcl-expect called at [facility] Primary care, consider__ _ Dispositio n: ED Health Concerns Section Related Observation LastModified by Organization Detai ls LastModified Time None Recorded Concern Status LastModified by Organization Details LastModified Time None Recorded Advance Directives Directive None Recorded Payers Insurance Date Sequence Insurance Name Policy Number Policy Camacho Covered Member ID Camacho Member ID Guarantor Name 07/17/2024 1 [facility] - DOS PRIOR TO 2022 - DUAL ELIGIBLE (MEDICARE REPLACEMENT/AD VANTAGE - HMO) Sarah García [id number] Sarah García 07/17/2024 1 [facility] - DOS ON OR AFTER 2022 - DUAL ELIGIBLE - SKILLED NURSING OPTIONS AND ONE CARE (MEDICARE REPLACEMENT/AD VANTAGE - HMO) Sarah García [id number] Sarah García Notes Date Note Type Note Provider Name and Address Organization Details Recorded Time 11/01/2021 text/html HPI: Alergies-sandra inhibtors: cough and cilostazol: cough. Member reported fever and chills with weakness x 3 days, stated tested negative for Covid with home test. Questions UTI, but asymptomatic other than the above. Nauruan speaker. Member is 66 yo, has thyroid cancer, DM, HTN, Ischemic cardiac disease, DM and Asthma. Denied having respiratory or GI/ sx. ................... ................... ................... ................... ................... ................... ................... ........ CRC Nursing Assessment: Comments: CRC RN DID NOT NEED FURTHER INFO TO PROCESS VISIT ................... ................... ................... ................... ................... ................... ................... ........ Alignment Specialist Note: Pt states she feels tired and sick with the chills but only at night. Pt admits Tylenol helps with chills. Pt denies chest pain/coughing/sneez ing/SOB and states she currently feels normal. UA negative for UTI, blood glucose 95. Pt states she has been drinking water without issues. Skin turgor good. Pt well appearing. [employer] contacted. Red flags discussed ................... ................... ................... ................... ................... ................... ................... ........ Disposition: Fulfilled Kermit Tomas MD [address] [facility],[address], [place], [address], [employer] 11/01/2021 19:13:41 08/29/2022 text/html HPI: CCA [...] ................... ................... ................... ................... ................... ................... ........ Alignment Specialist Note From Victor Manuel Gilmore: Pt [...] ........ Disposition: Fulfilled Noe Cortes MD [address] [facility],[address], [place], [address], [employer] 08/29/2022 16:20:09 09/07/2023 text/html CRC Nurse Triage Notes (George Gil): Chief Complaints: Syncope/Dizziness/L ightheadedness, Weakness/Lethargy PMH: Amputation, Diabetes, COPD/Asthma, Hypertension, Heart Disease Allergies: Unknown Comments: Clinical Medical Assistant verified the member's name//address and phone number. [...] emergency treatment if needed -Socorro Gil, RN Alignment Specialist POC Test Results from Tamra Smith YANIQUE [facility], [facility] Chem8+ (20:37:25) Na: 140 mEq/L K: 3.0 mEq/L Cl: 103 mEq/L iCa: 0.52 mmol/L TCO2: 18 mmol/L Glu: 267 mg/dL BUN: 124 mg/dL Crea: 8.1 mg/dL Hct: 28 % Hb: 9.5 g/dL A ................... ................... ................... ................... ................... ................... ................... ........ Alignment Specialist Note From Tamra Smith: [facility] Alignment Specialist Kelsie Luis SC6 dispatched to a red for a [...] and SOB on exertion, and had weak manufacturing technician strength in her left hand. Blood sugar 324. Pt used 13U tresiba nightly, and had not started any new meds recently. She was instructed by her Motor Inspection Mechanic in the past week to DC her lasix, and stated she performed lab work in the past week through her Nephrology office. [facility]; #20 IV placed in her left AC, BMP acquired, and she was given 500 mL NS. BUN and creatinine were critically high; [facility] was consulted again, and pt was informed that she must be transported to the ED immediately. Pt agreed and 911 was called. [facility] arrived and transported her to [place] ED. ................... ................... ................... ................... ................... ................... ................... ........ Disposition: Fulfilled CEDRICK BELLO MD [address] [place] [address],[address], [place], [address], [employer] [facility] 09/07/2023 21:09:47 OBGyn Episode No OBEpisode recorded.
== END ==
LOC: HO.CARD 10:35
PROVIDERS: PCP Family Medicine; Visit Provider Nurse Practitioner Family
DX: I13.2 Hypertensive heart and chronic kidney disease with heart failure and with stage 5 chronic kidney disease, or end stage renal disease (principal); E11.22 Type 2 diabetes mellitus with diabetic chronic kidney disease; N18.6 End stage renal disease; I50.9 Heart failure, unspecified; I47.19 Other supraventricular tachycardia; Z99.2 Dependence on renal dialysis
CPT/HCPCS: 78452; 93017; 99212; A9500; J0280; J2785

== ENCOUNTER 2024-09-17 15:25 | Outpatient (AMB) | payer OTHER, SELFPAY ==
--- NOTE | 2024-09-17 15:27 | HO.NEPHOV ---
Vital Signs 09/17/24 15:28 Height 5 ft Intake Visit Reasons: FU-LVM Manager Biostatistics Required: Yes Manager Biostatistics Language: Fire Fighting Equipment Specialist Services: Manager Biostatistics Offered & Declined ([facility] Manager Biostatistics services refused ) Information Interpreted: clinical only Accompanied by: Self / Same As Patient Allergies ALLYSSA Inhibitors (ALLYSSA INHIBITORS) Allergy (Mild, Verified 09/17/24 15:28) COUGH cilostazol (CILOSTAZOL) Allergy (Mild, Verified 09/17/24 15:28) COUGH PFSH Medical History Osteomyelitis CHF exacerbation Anemia CKD (chronic kidney disease) stage 5, GFR less than 15 ml/min Hypocalcemia Nicotine dependence, cigarettes, uncomplicated Atherosclerotic cardiovascular disease Thyroid cancer (~2008) 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) Hypothyroidism associated with surgical procedure (~2008) Uncontrolled type 2 diabetes mellitus with hyperglycemia (~1986) Pneumonitis ARDS (adult respiratory distress syndrome) Neuropathy Asthma-COPD overlap syndrome Anemia HTN (hypertension) Hypercholesteremia Surgical History History of thyroidectomy History of back surgery History of 2 sections History of angioplasty History of amputation of left great toe Family History Mother Hypertension Diabetes Father AA (alcohol abuse) Social History Household Members: Family Housing: Apartment Do you presently have 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 or other home services: Yes (FOREIGN EXCHANGE POSITION CLERK) Alcohol intake: never 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 Tobacco Use Status: Former Tobacco user Years Smoked: 45 Advance Directives Date on File: 09/13/20 service: No Current occupational status: disabled Results Reviewed Nephrology Results: Hgb, (12.0-16.0) 9.6 g/dl L Δ 08/24/24 WBC, (4.8-10.8) 7.4 X10*3/uL 08/24/24 Plt Count, (160-400) 150 X10*3/uL L 08/24/24 Creatinine, (0.5-1.4) 3.05 mg/dL H 08/24/24 Renal US 08/22/20 Assessment & Plan Assessment & Plan (1) ESRD needing dialysis: Code(s): N18.6 - End stage renal disease; Z99.2 - Dependence on renal dialysis Category: Medical Plan see dialysis EMR Coding Level of Care Code Global (72680) Diagnoses ESRD needing dialysis N18.6; Z99.2
--- OUTSIDE RECORDS SUMMARY | 2024-09-17 15:27 | XMS_ITS ---
Author Name [facility] Organization Unknown Care Team Organization Name Specialty Phone Email Start Date End Da tayo [facility] 09/27/2022 11/04/2023
== END 2024-09-17 15:56 | disposition home or self-care (01) ==
PROVIDERS: PCP Family Medicine; Visit Provider Internal Medicine Hypertension Specialist
DX: N18.6 End stage renal disease (principal); Z99.2 Dependence on renal dialysis
CPT/HCPCS: 99024

== ENCOUNTER 2024-09-23 15:29 | Outpatient (AMB) | payer OTHER, SELFPAY ==
--- OUTSIDE RECORDS SUMMARY | 2024-09-23 15:37 | XMS_ITS | Clinical Summary ---
Demographics Address [address] [place] [address] [address] [place] [address] Home Phone Preferred Language es Marital Status Unknown Advent Affiliation Unknown Race White Ethnic Group Unknown Author Organization [facility] Address [address] [place] [address] Phone Care Team Providers Care Branch Operations Manager Name Role Phone Senait Pal MD Primary Care Provider [phone] Allergies Active Allergy Reactions Criticality Noted Date [...] Exam 04/17/2020 Diabetes: Hemoglobin A1C 01/22/2024 10/22/2023, 0906/2018 Influenza Vaccine (#1) 2024 , 01/14/2020, 01/23/2017, Additional history exists Hepatitis B Vaccine Aged Out 06/17/2014, 02/09/2014, 09/15/2013 No longer eligible based on patient's age to complete this topic Pneumococcal Vaccine: 50+ Years Completed 10/31/2022, 02/26/2011 Pneumococcal Vaccine: Peds (0 to 5 Years) and At-Risk Patients (6 to 49 Years) Discontinued 10/31/2022, 02/26/[address] [place] [address] [id number] [facility] ([id number]) [place] [phone] [facility] ([id number]) M[place]ELLEN SPENCER [phone] Care Teams Branch Operations Manager Relationship Specialty Start Date End Date Senait Pal MD PCP - General 03/28/20
--- OUTSIDE RECORDS SUMMARY | 2024-09-23 15:37 | XMS_ITS | Encounter Summary ---
Author Organization [employer] Address [address] [place] [address] [address] [place] [address] Care Team Providers Care Solar Photovoltaic Crew Lead Name Role Phone Senait Pal MD Primary Care Provider [phone] Gustabo Fernandez PharmD Unavailable [phone] Encounter Details Date Type Department Care Team (Late st Contact Info) Description 11/01/2022 Abstract [facility] [address] [place] [address] [phone] Senait Pal MD [address] [place], [place] [phone] Social History Tobacco Use Types Packs/Day Years [...] Description 10/08/2024 11:00 AM EDT Office Visit [facility] [address] [place], [place] [phone] Senait Pal MD [address] [place] [address] [phone] documented as of this encounter Goals Goal [...] Eye Exam (08/04/2022) Eye Exam Normal Normal [place] [facility] Pcp HEALTH MAINTENANCE Final Result documented in this encounter Visit Diagnoses Not on filedocumented in this encounter Additional Health Concerns Assessment Noted Time PHQ-9 Depression Total Score: 7 11/01/19 23 11:04 AM EDT documented as of this encounter Care Teams Solar Photovoltaic Crew Lead Relationship Specialty Start Date End Date Senait Pal MD [address] [place] [address] PCP - General Family Medicine 02/22/20 Gustabo Fernandez PharmD [address] [place] [address] Pharmacist Internal Medicine 07/16/22 [facility] 09/14/23 documented as of this encounter
--- OUTSIDE RECORDS SUMMARY | 2024-09-23 15:37 | XMS_ITS | Data Portability ---
Author Organization [facility] Address [address] [place] [address] Care Team Providers Care Coin Machine Assembler Name Role Phone HIM CCA OTHER [...] PCP. The patient agreed with this plan. [email or web address] Not available 11/01/2021 19:13:25 08/29/2022 08/29/2022 As noted, we were called to see this patient regarding concerns of cellulitis of the left lower leg Evaluation in the field was performed by my metallurgist process colleague, as noted above, I provided real-time [...] serum or plasma 06/22/ 2024 06/22/2 024 [facility], [address] [place] [address], [id number] 4 20:52:48 hemoglobin + hematocrit, blood 2023 024 [facility], [address] [place] [address], [phone] 4 20:51:45 Referral None recorded. Procedures None recorded. Surgeries None recorded. Imaging None recorded. Medication Orders sodium chloride 0.9 % intravenous solution 2023 024 [facility], [address] [place] [address], [id number], 4 20:51:12 doxycycline hyclate 100 mg capsule 2022 023 [email or web address] 5 Not available 3 15:43:21 doxycycline hyclate 100 mg capsule 2022 023 [facility], [address] [place] [address], [id number], 3 15:51:20 Patient TargetsNo targets recorded. Patient InstructionsNo instructions recorded. Reason for Referral None Reported. Results Created Date Observation Date Name Description Value Unit Range Abnormal Flag Note LastModifiedBy Organization Detail LastModifiedTime 09/07/19 24 09/07/2023 BMP, serum or plasm a BUN 124 Not Available Main - [facility] [address], [phone] 09/07/2023 20:50:35 09/07/19 24 09/07/2023 BMP, serum or plasm a Ca 0.52 Not Available Main - [facility] [address], [phone] 09/07/2023 20:50:35 09/07/19 24 09/07/2023 BMP, serum or plasm a CI- 103 Not Available Main - [facility] [address], [address] 09/07/2023 20:50:35 09/07/19 24 09/07/2023 BMP, serum or plasm a CRE 8.1 Not Available Main - [facility] [address], [address] 09/07/2023 20:50:35 09/07/19 24 09/07/2023 BMP, serum or plasm a GLU 267 Not Available Main - [facility] [address], [address] 09/07/2023 20:50:35 09/07/19 24 09/07/2023 BMP, serum or plasm a K+ 3.0 Not Available Main - [facility] [address], [address] 09/07/2023 20:50:35 09/07/19 24 09/07/2023 BMP, serum or plasm a Na+ 140 Not Available Main - [facility] [address], [address] [place] [address] 09/07/2023 20:50:35 09/07/19 24 09/07/2023 BMP, serum or plasm a tCO2 18 Not Available Main - [facility] [address], [address] 09/07/2023 20:50:35 09/07/19 24 09/07/2023 hemog lobin + hemat ocrit , blood Hemoglobin 9.5 Not Available Main - [facility] [address] [place] [address], [phone] 09/07/2023 20:51:28 09/07/19 24 09/07/2023 hemog lobin + hemat ocrit , blood Hematocrit 28 Not Available [facility] [address] [place] [address], [phone] 09/07/2023 20:51:28 Result Notes None recorded. Medical [...] Address Organization Details Last Updated DateTime 3 02007.7 6 g 16 /min 99 % 99 % 97.8 [degF] 75 /min 151/71 mm[Hg] Not Available [facility] 3 15:40:42 Date Recorded Heart rate Oxygen saturation Oxygen saturation in Arterial blood by Pulse oximetry Respiratory rate Body temperature Systolic And Diastolic Provider Name and Address Organization Details Last Updated DateTime 4 67 /min 100 % 100 % 16 /min 97.5 [degF] 113/60 mm[Hg] Not Available [facility] 4 20:36:59 Date Recorded Heart rate Oxygen saturation Oxygen saturation in Arterial blood by Pulse oximetry Respiratory rate Body temperature Systolic And Diastolic Provider Name and Address Organization Details Last Updated DateTime 2 84 /min 99 % 99 % 18 /min 97.8 [degF] 137/65 mm[Hg] Not Available [facility] 2 19:10:22 Social History None recorded. Functional [...] Note [id number] Kermit Tomas MD Main - [address] [phone] 11/01/2021 19:10:19 11/01/2021 19:13:43 [id number] Noe Cortes MD [facility] - [address] [address] 08/29/2022 15:40:31 08/30/2022 10:51:33 Cellulitis of lower limb [id number] L03.119 [id number] CEDRICK BELLO MD Main - [address] [phone] 09/07/2023 19:32:58 09/08/2023 16:45:57 [id number] renal failure [id number] N17.9 Evaluation in the field was performed by my metallurgist process colleague, as noted above, I provided real-time [...] RA, T 98.3 Exam : Mildly decreased proof inspector on the left hand but no other [...] ml-Unable to tolerate PO Kcl-expect called at [facility] Primary care, consider__ _ Dispositio n: ED Health Concerns Section Related Observation LastModified by Organization Detai ls LastModified Time None Recorded Concern Status LastModified by Organization Details LastModified Time None Recorded Advance Directives Directive None Recorded Payers Insurance Date Sequence Insurance Name Policy Number Policy Camacho Covered Member ID Camacho Member ID Guarantor Name 07/17/2024 1 [facility] - DOS PRIOR TO 2022 - DUAL ELIGIBLE (MEDICARE REPLACEMENT/AD VANTAGE - HMO) Sarah García [id number] Sarah García 07/17/2024 1 [facility] - DOS ON OR AFTER 2022 - DUAL ELIGIBLE - CUSTODIAL OPTIONS AND ONE CARE (MEDICARE REPLACEMENT/AD VANTAGE - HMO) Sarah García [id number] Sarah García Notes Date Note Type Note Provider Name and Address Organization Details Recorded Time 11/01/2021 text/html HPI: Alergies-sandra inhibtors: cough and cilostazol: cough. Member reported fever and chills with weakness x 3 days, stated tested negative for Covid with home test. Questions UTI, but asymptomatic other than the above. Palauan speaker. Member is 66 yo, has thyroid cancer, DM, HTN, Ischemic cardiac disease, DM and Asthma. Denied having respiratory or GI/ sx. ................... ................... ................... ................... ................... ................... ................... ........ CRC Nursing Assessment: Comments: CRC RN DID NOT NEED FURTHER INFO TO PROCESS VISIT ................... ................... ................... ................... ................... ................... ................... ........ Staple Shear Operator Note: Pt states she feels tired and sick with the chills but only at night. Pt admits Tylenol helps with chills. Pt denies chest pain/coughing/sneez ing/SOB and states she currently feels normal. UA negative for UTI, blood glucose 95. Pt states she has been drinking water without issues. Skin turgor good. Pt well appearing. [employer] contacted. Red flags discussed ................... ................... ................... ................... ................... ................... ................... ........ Disposition: Fulfilled Kermit Tomas MD [address] [facility],[address], [place], [address], [facility] 11/01/2021 19:13:41 08/29/2022 text/html HPI: CCA calling [...] ................... ................... ................... ................... ................... ................... ........ Staple Shear Operator Note From Victor Manuel Gilmore: Pt CO [...] ........ Disposition: Fulfilled Noe Cortes MD [address] [facility],[address], [place], [address], [facility] 08/29/2022 16:20:09 09/07/2023 text/html CRC Nurse Triage Notes (George Gil): Chief Complaints: Syncope/Dizziness/L ightheadedness, Weakness/Lethargy PMH: Amputation, Diabetes, COPD/Asthma, Hypertension, Heart Disease Allergies: Unknown Comments: Command And Control Specialist verified the member's name//address and phone [...] emergency treatment if needed -Socorro Gil, RN Staple Shear Operator POC Test Results from Tamra Smith [facility] Chem8+ (20:37:25) Na: 140 mEq/L K: 3.0 mEq/L Cl: 103 mEq/L iCa: 0.52 mmol/L TCO2: 18 mmol/L Glu: 267 mg/dL BUN: 124 mg/dL Crea: 8.1 mg/dL Hct: 28 % Hb: 9.5 g/dL A ................... ................... ................... ................... ................... ................... ................... ........ Staple Shear Operator Note From Tamra Smith: [facility] Staple Shear Operator Kelsie Luis SC6 dispatched to a red [...] and SOB on exertion, and had weak proof inspector strength in her left hand. Blood sugar 324. Pt used 13U tresiba nightly, and had not started any new meds recently. She was instructed by her Budget Director in the past week to DC her lasix, and stated she performed lab work in the past week through her Nephrology office. [facility] consulted; #20 IV placed in her left AC, BMP acquired, and she was given 500 mL NS. BUN and creatinine were critically high; [facility] was consulted again, and pt was informed that she must be transported to the ED immediately. Pt agreed and 911 was called. [facility] arrived and transported her to [place] ED. ................... ................... ................... ................... ................... ................... ................... ........ Disposition: Fulfilled CEDRICK BELLO MD [address] [place] [address],[address], [place], [address], [facility] 09/07/2023 21:09:47 OBGyn Episode No OBEpisode recorded.
--- NOTE | 2024-09-23 15:41 | MHC.OFFVIS ---
Intake Visit Reasons: hearing loss Allergies ALLYSSA Inhibitors (ALLYSSA INHIBITORS) Allergy (Mild, Verified 09/17/24 15:28) COUGH cilostazol (CILOSTAZOL) Allergy (Mild, Verified 09/17/24 15:28) COUGH HPI Comments Details: This is a 69-year-old right-handed woman with a history of insulin-dependent diabetes, chronic kidney disease on dialysis, hyperlipidemia, hypothyroidism, hypertension, depression who lost hearing in the left ear about a year ago. It was 1st noticed about 2 months after a fall during which she hit her head without loss of consciousness. She also has some ringing in the ear on that side. She has very little hearing in that ear. As part of her workup she had an MRI of the brain on 01/12/24 which showed an incidental finding of a left frontal meningioma 1.7 x 1 cm. The meningioma was also seen in a CT scan done in May of 2022 but was not picked up because no dye was given. She also has mild microvascular changes on the MRI. She has no headache and remains asymptomatic from the meningioma. No history of seizures. [facility] Medical History (Updated 09/23/24 @ 16:09 by Colette Hodge MD) Osteomyelitis CHF exacerbation Anemia CKD (chronic kidney disease) stage 5, GFR less than 15 ml/min Hypocalcemia Nicotine dependence, cigarettes, uncomplicated Atherosclerotic cardiovascular disease Thyroid cancer (~2008) 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) Hypothyroidism associated with surgical procedure (~2008) Uncontrolled type 2 diabetes mellitus with hyperglycemia (~1986) Pneumonitis ARDS (adult respiratory distress syndrome) Neuropathy Asthma-COPD overlap syndrome Anemia HTN (hypertension) Hypercholesteremia Surgical History History of thyroidectomy History of back surgery History of 2 sections History of angioplasty History of amputation of left great toe Family History Mother Hypertension Diabetes Father AA (alcohol abuse) Social History Household Members: Family Housing: Apartment Do you presently have 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 or other home services: Yes ([employer]) Alcohol intake: never 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 Tobacco Use Status: Former Tobacco user Years Smoked: 45 Advance Directives Date on File: 09/13/20 service: No Current occupational status: disabled Review of Systems Const Details: ?Sleep Difficulty getting to sleep?denies.?Difficulty maintaining sleep?denies?.?Urge to move legs?denies.?Teeth grinding?denies.?Shouting or Kicking during sleep?denies.?Abnormal behavior during sleep?denies.?Excessive sleep?denies.?Snoring?denies.?Daytime sleepiness?denies. ? General/Constitutional Change in appetite?denies.?Chills?denies.?Fatigue?denies.?Fever?denies.?Weight gain?denies.?Weight loss?denies. ? Ophthalmologic Blurred vision?denies.?Diminished visual acuity?denies. ? ENT Stuffiness?denies.?Decreased hearing?left ear.?Dry mouth?denies.?Ear pain?denies.?Nosebleed?denies.?Ringing in the ears?left ear.?Sinus pain?denies.?Sore throat?denies.?Swollen glands?denies. ? Endocrine Cold intolerance?denies.?Excessive thirst?denies.?Frequent urination?denies.?Heat intolerance?denies. ? Respiratory Shortness of breath?denies.?Chest pain?denies.?Cough?denies. ? Breast Breast lump?denies.?Nipple discharge?denies. ? Cardiovascular Chest pain at rest?denies.?Chest pain with exertion?denies.?Claudication?denies.?Dizziness?denies.?Fluid accumulation in the legs?denies.?Irregular heartbeat?denies.?Palpitations?denies. ? Gastrointestinal Abdominal pain?denies.?Constipation?denies.?Diarrhea?denies.?Difficulty swallowing?denies.?Heartburn?denies.?Nausea?denies.?Rectal bleeding?denies. ? Hematology Easy bruising?denies.?Prolonged bleeding?denies. ? Genitourinary Frequent urination?denies.?Urgency?denies.?Incontinence?denies.?Erectile Dysfunction?denies. ? Musculoskeletal Neck pain?denies.?Back pain?denies.?Muscle aches?denies.?Painful joints?denies.?Sciatica?denies.?Weakness?denies. ? Podiatric Difficulty walking?denies.?Foot numbness?denies. ? Neurologic Difficulty swallowing?denies.?Balance difficulty?denies.?Coordination?normal.?Difficulty speaking?denies.?Dizziness?denies.?Fainting?denies.?Gait abnormality?denies.?Headache?denies.?Loss of strength?denies.?Loss of use of extremity?denies.?Low back pain?denies.?Memory loss?denies.?Seizures?denies.?Tics?denies.?Tingling/Numbness?denies.?Transient loss of vision?denies.?Tremor?denies. ? Psychiatric Anxiety?denies.?Auditory/visual hallucinations?denies.?Delusions?denies.?Depressed mood?denies.?Stressors?denies.?Substance abuse?denies.?Suicidal thoughts?denies. Physical Exam Neuro Other: Neurological Abnormal neurological findings:??Loss of hearing left ear.? Mental Status:?alert and oriented X 3,?Normal attention, orientation, memory and affect.? Cranial Nerves:?Pupils are equal, round and reactive to light. Fundoscopy shows normal disc bilaterally. External occular muscles are intact. Visual delgado are full, no ptosis. Face is symmetrical, no facial weakness or droop. Facial sensations are normal. 50% left hearing loss. Tongue protrudes in midline. Palate elevates symmetrically. Shoulder shrugging is normal..? Motor Examination:?Normal muscle tone, bulk and strength,?No atrophy or fasciculations,?No drift of the extended upper extremities,?Deep tendon reflexes are 2+?,?Plantars are flexor?.? Motor Strength:?Proximal Muscles (out of 5):5Distal Muscles (out of 5):5Neck Flexors (out of 5):5Neck Extensors (out of 5):5Deltoid (out of 5):5Biceps (out of 5):5Triceps (out of 5):5Serratus Anterior (out of 5):5Wrist Extensors (out of 5):5APB (out of 5):5Finger Spread (out of 5):5Ileopsoas (out of 5):5Quadriceps (out of 5):5Hamstrings (out of 5):5Tibialis Anterior (out of 5):5Peronei (out of 5):5EDB (out of 5):5Gastrocnemius (out of 5):5Straight Leg Raising:?90 degrees.? Sensory Exam:?Normal light touch, temperature, pinprick, vibration and joint-position sensations?,?Rhomberg sign is absent.? Coordination:?no ataxia,?no titubation,?fagcum-bz-kvak, mcwv-dqtx-zhfc test and rapid alternating movements were normal.? Gait Exam:?Within normal limits.? Cerebellar Signs:?Vfphiv-sr-eiyg and sssq-qc-txuw is normal,?no dysdiadochokinesia?.? Extrapyramidal System:?No tremor, rigidity with normal facial expressions,?No bradykinesia, no bradyphrenia. Normal arm swing and posture. No propulsion or retropulsion.? Speech:?Normal,?no dysphasia or dysarthria..? Mini Mental Status Exam Level of Consciousness:?Alert.? Orientation:?Knows correct year, month, date, day and season,?Knows correct city, county and state. Knows correct location and floor.? Registration:?Able to register 3 objects.? Attention:?Serial 7's performed accurately.? Recall:?Able to recall 3 out of 3 objects.? Language:?Normal spontaneous speech, fluency, repetition,naming, comprehension, reading and writing.? Total Score:?30/30.? General Examination GENERAL APPEARANCE:?normal,?in no acute distress.? HEAD:?normocephalic,?atraumatic.? EYES:?sclera non-icteric,?conjunctiva clear.? EARS:?auditory canal clear,?tympanic membrane intact, clear.? NOSE:?no lesions.? ORAL CAVITY:?gums normal,?mucosa moist,?no lesions.? THROAT:?clear.? NECK/THYROID:?no cervical lymphadenopathy,?thyroid normal,?neck supple, full range of motion,?no carotid bruit.? SKIN:?no rashes,?no significant birthmarks.? HEART:?S1, S2 normal,?no murmurs.? LUNGS:?clear anteriorly and posteriorly.? CHEST:?no gross rib deformity,?clear to auscultation.? BACK:?normal exam of spine.? EXTREMITIES:?no edema.? PERIPHERAL PULSES:?normal.? PSYCH:?alert, oriented,?cognitive function intact,?cooperative with exam.? Assessment & Plan Assessment & Plan (1) Meningioma: Code(s): D32.9 - Benign neoplasm of meninges, unspecified Category: Medical (2) Neuropathy: Code(s): G62.9 - Polyneuropathy, unspecified Category: Medical Plan f/u MRI brain with mikayla on next visit in 6 months for f/u of asymptomatic left frontal meningioma Coding Level of Care Code New Pt Level 5 (96416) Diagnoses Meningioma D32.9 Neuropathy G62.9
== END 2024-09-23 16:12 | disposition home or self-care (01) ==
LOC: HO.HSM 15:30
PROVIDERS: PCP Family Medicine; Referring Provider Family Medicine; Visit Provider Psychiatry & Neurology Neurology
DX: D32.9 Benign neoplasm of meninges, unspecified (principal); G62.9 Polyneuropathy, unspecified
CPT/HCPCS: 99204

== ENCOUNTER → 2024-09-23 15:29 | Outpatient (BNVA) | payer OTHER, SELFPAY | PROVIDERS: PCP Family Medicine; Referring Provider Family Medicine; Visit Provider Psychiatry & Neurology Neurology | DX: D32.0 Benign neoplasm of cerebral meninges (principal); G62.9 Polyneuropathy, unspecified | CPT/HCPCS: 99202 ==

== ENCOUNTER 2024-10-08 11:16 | Outpatient (REF) | payer OTHER, SELFPAY ==
--- OUTSIDE RECORDS SUMMARY | 2024-10-08 12:12 | XMS_ITS | Data Portability ---
Author Organization [employer], [facility] Address [address] [place] [address] Care Team Providers Care Engineering Technician Name Role Phone HIM CCA OTHER Assessment [...] PCP. The patient agreed with this plan. [email or web address] Not available 11/01/2021 19:13:25 08/29/2022 08/29/2022 As noted, we were called to see this patient regarding concerns of cellulitis of the left lower leg Evaluation in the field was performed by my offensive coordinator colleague, as noted above, I provided real-time [...] serum or plasma 06/22/ 2024 06/22/2 024 [facility], [address] [place] [address], [phone] 4 20:52:48 hemoglobin + hematocrit, blood 2023 024 [facility], [address] [place] [address], [phone] 4 20:51:45 Referral None recorded. Procedures None recorded. Surgeries None recorded. Imaging None recorded. Medication Orders sodium chloride 0.9 % intravenous solution 2023 024 [facility], [address] [place] [address], [id number], 4 20:51:12 doxycycline hyclate 100 mg capsule 2022 023 [email or web address] 5 Not available 3 15:43:21 doxycycline hyclate 100 mg capsule 2022 023 [facility], [address] [place] [address], [id number], 3 15:51:20 Patient TargetsNo targets recorded. Patient InstructionsNo instructions recorded. Reason for Referral None Reported. Results Created Date Observation Date Name Description Value Unit Range Abnormal Flag Note LastModifiedBy Organization Detail LastModifiedTime 09/07/19 24 09/07/2023 BMP, serum or plasm a BUN 124 Not Available Main - Ins [address], [address] 09/07/2023 20:50:35 09/07/19 24 09/07/2023 BMP, serum or plasm a Ca 0.52 Not Available Main - Ins [address], [address] 09/07/2023 20:50:35 09/07/19 24 09/07/2023 BMP, serum or plasm a CI- 103 Not Available Main - Ins [address], [address] 09/07/2023 20:50:35 09/07/19 24 09/07/2023 BMP, serum or plasm a CRE 8.1 Not Available Main - Ins [address], [address] 09/07/2023 20:50:35 09/07/19 24 09/07/2023 BMP, serum or plasm a GLU 267 Not Available Main - Ins [address], [address] 09/07/2023 20:50:35 09/07/19 24 09/07/2023 BMP, serum or plasm a K+ 3.0 Not Available Main - Ins [address], [address] 09/07/2023 20:50:35 09/07/19 24 09/07/2023 BMP, serum or plasm a Na+ 140 Not Available Main - Ins [address], [address] [place] [address] 09/07/2023 20:50:35 09/07/19 24 09/07/2023 BMP, serum or plasm a tCO2 18 Not Available Main - Ins [address], [address] 09/07/2023 20:50:35 09/07/19 24 09/07/2023 hemog lobin + hemat ocrit , blood Hemoglobin 9.5 Not Available Main - [facility] [address] [place] [address], [address] 09/07/2023 20:51:28 09/07/19 24 09/07/2023 hemog lobin + hemat ocrit , blood Hematocrit 28 Not Available [facility] [address] [place] [address], [phone] 09/07/2023 20:51:28 Result Notes None recorded. Medical [...] Address Organization Details Last Updated DateTime 3 88261.7 6 g 16 /min 99 % 99 % 97.8 [degF] 75 /min 151/71 mm[Hg] Not Available [employer] 3 15:40:42 Date Recorded Heart rate Oxygen saturation Oxygen saturation in Arterial blood by Pulse oximetry Respiratory rate Body temperature Systolic And Diastolic Provider Name and Address Organization Details Last Updated DateTime 4 67 /min 100 % 100 % 16 /min 97.5 [degF] 113/60 mm[Hg] Not Available [employer] 4 20:36:59 Date Recorded Heart rate Oxygen saturation Oxygen saturation in Arterial blood by Pulse oximetry Respiratory rate Body temperature Systolic And Diastolic Provider Name and Address Organization Details Last Updated DateTime 2 84 /min 99 % 99 % 18 /min 97.8 [degF] 137/65 mm[Hg] Not Available [employer] 2 19:10:22 Social History None recorded. Functional [...] Note [id number] Kermit Tomas MD Main - [address] [phone] 11/01/2021 19:10:19 11/01/2021 19:13:43 [id number] Noe Cortes MD [facility] - [address] [address] 08/29/2022 15:40:31 08/30/2022 10:51:33 Cellulitis of lower limb [id number] L03.119 [id number] CEDRICK BELLO MD Main - [address] [address] 09/07/2023 19:32:58 09/08/2023 16:45:57 Cihui-us-khdlevb renal failure [id number] N17.9 Evaluation in the field was performed by my offensive coordinator colleague, as noted above, I provided real-time [...] RA, T 98.3 Exam : Mildly decreased press supervisor on the left hand but no other [...] ml-Unable to tolerate PO Kcl-expect called at [facility] Primary care, consider__ _ Dispositio n: ED Health Concerns Section Related Observation LastModified by Organization Detai ls LastModified Time None Recorded Concern Status LastModified by Organization Details LastModified Time None Recorded Advance Directives Directive None Recorded Payers Insurance Date Sequence Insurance Name Policy Number Policy Camacho Covered Member ID Camacho Member ID Guarantor Name 07/17/2024 1 [facility] - DOS PRIOR TO 2022 - DUAL ELIGIBLE (MEDICARE REPLACEMENT/AD VANTAGE - HMO) Sarah García [id number] Sarah García 07/17/2024 1 [facility] - DOS ON OR AFTER 2022 - DUAL ELIGIBLE - NURSING HOME OPTIONS AND ONE CARE (MEDICARE REPLACEMENT/AD VANTAGE - HMO) Sarah García [id number] Sarah García Notes Date Note Type Note Provider Name and Address Organization Details Recorded Time 11/01/2021 text/html ROS as noted in the HPI HPI: Alergies-sandra inhibtors: cough and cilostazol: cough. [...] ................... ................... ................... ................... ................... ................... ........ Administration Specialist Note: Pt states she feels tired [...] Kermit Tomas MD [address] [facility],[address], [place], [address], [employer] 11/01/2021 19:13:41 08/29/2022 text/html HPI: CCA calling [...] ................... ................... ................... ................... ................... ................... ........ Administration Specialist Note From Victor Manuel Gilmore: Pt [...] Noe Cortes MD [address] [facility],[address], [place], [address], [employer] 08/29/2022 16:20:09 09/07/2023 text/html ROS as [facility] Nurse Triage Notes (George Gil): Chief Complaints: Syncope/Dizziness/L ightheadedness, Weakness/Lethargy PMH: Amputation, Diabetes, COPD/Asthma, Hypertension, Heart Disease Allergies: Unknown Comments: [employer] Commerce Developer verified the member's name//address and phone number. [...] emergency treatment if needed -Socorro Gil, RN Administration Specialist POC Test Results from Luis Tamrasam CHANEL iSTA Chem8+ (20:37:25) Na: 140 mEq/L K: 3.0 mEq/L Cl: 103 mEq/L iCa: 0.52 mmol/L TCO2: 18 mmol/L Glu: 267 mg/dL BUN: 124 mg/dL Crea: 8.1 mg/dL Hct: 28 % Hb: 9.5 g/dL A ................... ................... ................... ................... ................... ................... ................... ........ Administration Specialist Note From Luis Tamra: [facility] Administration Specialist Kelsie Smith SC6 dispatched to a [...] and SOB on exertion, and had weak press supervisor strength in her left hand. Blood sugar 324. Pt used 13U tresiba nightly, and had not started any new meds recently. She was instructed by her Ice Cream Man in the past week to DC her lasix, and stated she performed lab work in the past week through her Nephrology office. [facility] consulted; #20 IV placed in her left AC, BMP acquired, and she was given 500 mL NS. BUN and creatinine were critically high; [facility] was consulted again, and pt was informed that she must be transported to the ED immediately. Pt agreed and 911 was called. [facility] arrived and transported her to [place] ED. ................... ................... ................... ................... ................... ................... ................... ........ Disposition: Jesse BELLO MD [address] [place] [address], [place], [address], CHARLIE DICKERSON 09/07/2023 21:09:47 OBGyn Episode No OBEpisode recorded.
--- OUTSIDE RECORDS SUMMARY | 2024-10-08 12:12 | XMS_ITS | Clinical Summary ---
Author Organization [facility] Address [address] [address] Phone Care Team Providers Care Line Runner Name Role Phone Unavailable Primary Care Provider Unavailabl e Social History Tobacco Use Types Packs/Day Years Used Date Smoking Tobacco: Never Assessed Education Answer Date Recorded Are you interested in more education? Not on gosia e 07/13/2022 Are you concerned about learning? Not on file 07/13/2022 No 07/13/2022 No 07/13/2022 Digital Access Answer Date Recorded No 2022 No 2022 No 2022 Reliable internet access at home? Not on file 2022 Device with a working camera? Not on file Comments Unknown Sex and Gender Information Value Date Recorded Sex Assigned at Not on file Legal Sex Female 9:56 PM EDT Gender Identity Not on file Sexual Orientation Not on file Plan of Treatment Health Maintenance Due Date Last Done Comments Adult Td,Tdap Booster 1954 LIPID PANEL 1954 DEPRESSION SCREENING 1966 SMOKING Hx and SMOKELESS TOB ACCO SCREENING 08/14/1967 HEPATITIS C SCREENING 1972 MAMMOGRAM 1994 COLOGUARD 08/14/1999 COLONOSCOPY 08/14/1999 COLORECTAL CANCER SCREENING 08/14/1999 FIT TEST 08/14/1999 FOBT 08/14/1999 SIGMOIDOSCOPY 08/14/1999 VIRTUAL COLONOSCOPY 08/14/1999 PNEUMOCOCCAL VACCINES (50+ y ears) (1 of 1 - PCV) 2004 ZOSTER VACCINES (1 of 2) 2004 OSTEOPOROSIS SCREENING INITI AL (ONE-TIME) 08/14/2019 COVID-19 VACCINE ( - 2023-2 5 season) 2023 RSV VACCINE (1 - 1-dose 75+ series) 2029 HEPATITIS A VACCINES Aged Out No long er eligible based on patient's age to complete this topic HIB VACCINES Aged Out No longer eligi ble based on patient's age to complete this topic MENINGOCOCCAL VACCINES (ACWY) Aged Out No longer eligible based on patient's age to complete this topic MENINGOCOCCAL VACCINES (B) Aged Out N o longer eligible based on patient's age to complete this topic Medical Devices Not on file [place] [address] [address] [facility] Additional Source Comments The information contained in this document represents components of the legal health record. It is not the complete legal health record.[facility]
--- OUTSIDE RECORDS SUMMARY | 2024-10-08 12:12 | XMS_ITS | Clinical Summary ---
Demographics Address [address] [place] [address] [address] [place] [address] Home Phone Preferred Language es Marital Status Unknown Sabianist Affiliation Unknown Race White Ethnic Group Unknown Author Organization [facility] Address [address] [place] [address] Phone Care Team Providers Care Spice Room Worker Name Role Phone Senait Pal MD Primary Care Provider [phone] Allergies Active Allergy Reactions Criticality Noted Date [...] 48 Years) Discontinued 10/31/2022, 02/26/[address] [place] [id number] [facility] ([id number]) MARYELLEN SPENCER [phone] [facility] ([id number]) [place] SPENCER [address] Care Teams Spice Room Worker Relationship Specialty Start Date End Date Senait Pal MD PCP - General 03/28/20
[2024-10-08 13:10] LABS: MANUAL DIFF FLAG NO
[2024-10-08 13:24] LABS: Hematocrit 35.2 % (37.0-47.0); Hemoglobin 10.6 g/dl (12.0-16.0); Imm Gran Abs Auto 0.03 X10*3/uL (0.00-0.03); Imm Gran Pct Auto 0.3 % (0.0-0.4); Lymphocytes Absolute Auto 1.1 X10*3/uL (1.2-4.9); Mean Corpuscular HGB Conc 30.1 g/dl (31.0-35.0); Mean Corpuscular Hemoglobin 27.3 pg (27.0-33.0); Mean Corpuscular Volume 90.7 fL (80.0-98.0); NRBC Abs Auto 0.000 X10*3/uL (0.0-0.012); NRBC Pct Auto 0.0 /100WBC (0.0-0.2); Platelet Count 169 X10*3/uL (160-400); Red Blood Count 3.88 X10*6/uL (4.20-5.50); White Blood Count 9.4 X10*3/uL (4.8-10.8)
[2024-10-08 13:27] LABS: Hematocrit 34.7 % (37.0-47.0); Hemoglobin 10.5 g/dl (12.0-16.0); Imm Gran Abs Auto 0.04 X10*3/uL (0.00-0.03); Imm Gran Pct Auto 0.4 % (0.0-0.4); Lymphocytes Absolute Auto 1.2 X10*3/uL (1.2-4.9); Mean Corpuscular HGB Conc 30.3 g/dl (31.0-35.0); Mean Corpuscular Hemoglobin 27.5 pg (27.0-33.0); Mean Corpuscular Volume 90.8 fL (80.0-98.0); NRBC Abs Auto 0.000 X10*3/uL (0.0-0.012); NRBC Pct Auto 0.0 /100WBC (0.0-0.2); Platelet Count 158 X10*3/uL (160-400); Red Blood Count 3.82 X10*6/uL (4.20-5.50); White Blood Count 9.6 X10*3/uL (4.8-10.8)
[2024-10-08 13:30] LABS: Hematocrit 34.2 % (37.0-47.0); Hemoglobin 10.5 g/dl (12.0-16.0); Imm Gran Abs Auto 0.03 X10*3/uL (0.00-0.03); Imm Gran Pct Auto 0.3 % (0.0-0.4); Lymphocytes Absolute Auto 1.2 X10*3/uL (1.2-4.9); Mean Corpuscular HGB Conc 30.7 g/dl (31.0-35.0); Mean Corpuscular Hemoglobin 27.8 pg (27.0-33.0); Mean Corpuscular Volume 90.5 fL (80.0-98.0); NRBC Abs Auto 0.000 X10*3/uL (0.0-0.012); NRBC Pct Auto 0.0 /100WBC (0.0-0.2); Platelet Count 171 X10*3/uL (160-400); Red Blood Count 3.78 X10*6/uL (4.20-5.50); White Blood Count 9.5 X10*3/uL (4.8-10.8)
[2024-10-08 13:41] LABS: Estimated Glomerular Filt Rate 16
== END 2024-10-08 11:17 | disposition home or self-care (01) ==
LOC: HO.HHCL 11:16
PROVIDERS: Internal Medicine; PCP Family Medicine; Visit Provider Family Medicine
DX: M86.9 Osteomyelitis, unspecified (principal); R19.5 Other fecal abnormalities; E89.0 Postprocedural hypothyroidism
CPT/HCPCS: 36415; 82565; 84443; 85025

== ENCOUNTER → 2024-10-16 23:59 | Outpatient (BNV) | payer OTHER, SELFPAY | PROVIDERS: PCP Family Medicine; Visit Provider Internal Medicine Hypertension Specialist | DX: N18.6 End stage renal disease (principal) | CPT/HCPCS: 90962 ==

== ENCOUNTER 2024-11-02 09:15 | Outpatient (RCR) | payer OTHER, SELFPAY ==
--- NOTE | 2023-11-01 11:10 | PC.NURSE ---
Late Entry: Received an order for PICC placement from Dr Gage. Marquee message was sent to Dr Gage 10/21/23 asking her to obtain Nephrology clearance for PICC placement as this patient currently has Peritoneal Dialysis catheter. Message was read, but no response was given. Follow up Marquee message was sent 10/25/23, again inquiring about Nephrology clearance to place PICC for this patient. Message was read, but again, no response was given.
== END 2024-12-28 16:58 | disposition home or self-care (01) ==
LOC: HO.WCC 09:15
PROVIDERS: PCP Family Medicine; Visit Provider Colon & Rectal Surgery
DX: E11.621 Type 2 diabetes mellitus with foot ulcer (principal); E11.51 Type 2 diabetes mellitus with diabetic peripheral angiopathy without gangrene; I70.235 Atherosclerosis of native arteries of right leg with ulceration of other part of foot; L97.512 Non-pressure chronic ulcer of other part of right foot with fat layer exposed; E11.40 Type 2 diabetes mellitus with diabetic neuropathy, unspecified; E11.22 Type 2 diabetes mellitus with diabetic chronic kidney disease; N18.6 End stage renal disease; Z79.899 Other long term (current) drug therapy; Z79.4 Long term (current) use of insulin
CPT/HCPCS: 11042; 15275; 97597; 99212; 99213; Q4187

== ENCOUNTER 2024-11-05 13:56 | Outpatient (AMB) | payer OTHER, SELFPAY ==
--- OUTSIDE RECORDS SUMMARY | 2024-11-05 14:04 | XMS_ITS | Clinical Summary ---
Demographics Address [address] [place] [address] [address] [place] [address] Home Phone Preferred Language es Marital Status Unknown Mormon Affiliation Unknown Race White Ethnic Group Unknown Author Organization [facility] Address [address] [place] [address] Phone Care Team Providers Care Pizza [employer] Team Member Name Role Phone Senait Pal MD Primary Care Provider [phone] Allergies Active Allergy Reactions Criticality Noted Date [...] 49 Years) Discontinued 10/31/2022, 02/26/[address] [place] [address] [facility] ([id number]) MARYE[place]EN SPENCER [phone] [facility] ([id number]) [place] SPENCER [address] Care Teams [employer] Team Member Relationship Specialty Start Date End Date Senait Pal MD PCP - General 03/28/20
--- OUTSIDE RECORDS SUMMARY | 2024-11-05 14:04 | XMS_ITS | Encounter Summary ---
Author Organization [employer] Address [address] [facility] [address] [place] [address] Care Team Providers Care Fisher Scallop Name Role Phone Senait Pal MD Primary Care Provider [phone] Gustabo Fernandez PharmD Unavailable [phone] Encounter Details Date Type Department Care Team ([facility] st Contact Info) Description 11/01/2022 Abstract [facility] MEDICINE [address] [place], [place] [phone] Senait Pal MD [address] [place], [place] [phone] Social History Tobacco Use Types Packs/Day Years [...] Author Blood Pressure < 140/90 Blood Pressure 112/59( 025 10:41 AM EDT) No Gustabo Fernandez, PharmD Quit using tobacco (cigarettes, smokeless, etc) Tobacco Use No Gustabo Fernandez, PharmD documented as of this encounter Procedures Procedure Name Priority Date/Time Associated Diagnosis Comments DIABETES EYE EXAM Routine 08/04/2022 documented in this encounter Results * Diabetes Eye Exam (08/04/2022) Eye Exam Normal Normal [facility] Unassigned Pcp HEALTH MAINTENANCE Final Result documented in this encounter Visit Diagnoses Not on filedocumented in this encounter Additional Health Concerns Assessment Noted Time PHQ-9 Depression Total Score: 7 11/01/19 23 11:04 AM EDT documented as of this encounter Care Teams Fisher Scallop Relationship Specialty Start Date End Date Senait Pal MD [address] [place] [address] PCP - General Family Medicine 02/22/20 Gustabo Fernandez, HarshaD [address] [place] [address] Pharmacist Internal Medicine 07/16/22 [facility] 09/14/23 documented as of this encounter
--- OUTSIDE RECORDS SUMMARY | 2024-11-05 14:04 | XMS_ITS | Clinical Summary ---
Author Organization [facility] Address [address] [address] Phone Care Team Providers Care Broadcast Traffic Coordinator Name Role Phone Unavailable Primary Care Provider [...] SCREENING INITI AL (ONE-TIME) 08/14/2019 COVID-19 VACCINE (1 - 2023-2 5 season) 2023 RSV VACCINE [...] topic Medical Devices Not on file [place] [address] [address] [facility] Additional Source Comments The information contained in this document represents components of the legal health record. It is not the complete legal health record.[facility]
[2024-11-05 14:05] VITALS: BP 120/54; PULSE 72; O2SAT 97; BMI 26.8
--- NOTE | 2024-11-05 14:05 | HO.NEPHOV ---
Vital Signs 11/05/24 14:05 Height 5 ft Weight 137 lb BMI 26.8 BP 120/54 L Blood Pressure Location Rt brachial Position Sitting Pulse 72 Pulse Source Pulse Oximeter Pulse Oximetry (%) 97 Oxygen Delivery Method Room Air Intake Visit Reasons: F/U Conf Lumber Piler Operator Required: No Lumber Piler Operator Services: Lumber Piler Operator Offered & Declined (Grandchild will help translate) Accompanied by: Grand Child Allergies ALLYSSA Inhibitors (ALLYSSA INHIBITORS) Allergy (Mild, Verified 11/05/24 14:07) COUGH cilostazol (CILOSTAZOL) Allergy (Mild, Verified 11/05/24 14:07) COUGH [facility] Medical History (Updated 09/23/24 @ 16:09 by Colette Hodge MD) Osteomyelitis CHF exacerbation Anemia CKD (chronic kidney disease) stage 5, GFR less than 15 ml/min Hypocalcemia Nicotine dependence, cigarettes, uncomplicated Atherosclerotic cardiovascular disease Thyroid cancer (~2008) 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) Hypothyroidism associated with surgical procedure (~2008) Uncontrolled type 2 diabetes mellitus with hyperglycemia (~1986) Pneumonitis ARDS (adult respiratory distress syndrome) Neuropathy Asthma-COPD overlap syndrome Anemia HTN (hypertension) Hypercholesteremia Surgical History History of thyroidectomy History of back surgery History of 2 sections History of angioplasty History of amputation of left great toe Family History Mother Hypertension Diabetes Father AA (alcohol abuse) Social History Household Members: Family Housing: Apartment Do you presently have 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 or other home services: Yes ([employer]) Alcohol intake: never 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 Tobacco Use Status: Former Tobacco user Years Smoked: 45 Advance Directives Date on File: 09/13/20 service: No Current occupational status: disabled Physical Exam Vital Signs: Last Vital Signs Pulse 72 11/05/24 14:05 BP 120/54 L 11/05/24 14:05 Pulse Ox 97 11/05/24 14:05 Oxygen Delivery Method Room Air 11/05/24 14:05 BMI result Body Mass Index 26.8 Results Reviewed Nephrology Results: Hgb, (12.0-16.0) 10.5 g/dl L 10/08/24 WBC, (4.8-10.8) 9.5 X10*3/uL 10/08/24 Plt Count, (160-400) 171 X10*3/uL 10/08/24 Creatinine, (0.5-1.4) 2.84 mg/dL H 10/08/24 Renal US 08/22/20 Assessment & Plan Assessment & Plan (1) ESRD needing dialysis: Code(s): N18.6 - End stage renal disease; Z99.2 - Dependence on renal dialysis Category: Medical Plan see dialysis EMR Coding Level of Care Code Global (63129) Diagnoses ESRD needing dialysis N18.6; Z99.2
== END 2024-11-05 14:19 | disposition home or self-care (01) ==
LOC: HO.HKA 13:56
PROVIDERS: PCP Family Medicine; Visit Provider Internal Medicine Hypertension Specialist
DX: N18.6 End stage renal disease (principal); Z99.2 Dependence on renal dialysis
CPT/HCPCS: 99024

== ENCOUNTER → 2024-11-05 13:56 | Outpatient (BNVA) | payer OTHER, SELFPAY | PROVIDERS: PCP Family Medicine; Visit Provider Internal Medicine Hypertension Specialist | DX: N18.6 End stage renal disease (principal); Z99.2 Dependence on renal dialysis | CPT/HCPCS: 99212 ==

== ENCOUNTER → 2024-11-16 23:59 | Outpatient (BNV) | payer OTHER, SELFPAY | PROVIDERS: PCP Family Medicine; Visit Provider Internal Medicine Hypertension Specialist | DX: N18.6 End stage renal disease (principal) | CPT/HCPCS: 90962 ==

== ENCOUNTER 2024-12-10 13:36 | Outpatient (AMB) | payer OTHER, SELFPAY ==
[2024-12-10 13:40] VITALS: BP 102/50; PULSE 78; O2SAT 99; BMI 26.6
--- NOTE | 2024-12-10 13:40 | HO.NEPHOV_ITS ---
Vital Signs 12/10/24 13:40 Height 5 ft Weight 136 lb BMI 26.6 BP 102/50 L Blood Pressure Location Lt brachial Position Sitting Pulse 78 Pulse Source Pulse Oximeter Pulse Oximetry (%) 99 Oxygen Delivery Method Room Air Intake Visit Reasons: 1 MO FU, confirmed Egg Factory Worker Required: No Egg Factory Worker Services: Egg Factory Worker Offered & Declined (Granddaughter will translkaila cr ) Accompanied by: Grand Child Allergies ALLYSSA Inhibitors (ALLYSSA INHIBITORS) Allergy (Mild, Verified 12/10/24 13:42) COUGH cilostazol (CILOSTAZOL) Allergy (Mild, Verified 12/10/24 13:42) COUGH Medication List - Last Reconciled 12/10/24 by Jean Claude Bowden MD amlodipine 2.5 mg PO DAILY aspirin 81 mg PO DAILY@1200 atorvastatin 80 mg PO BEDTIME blood sugar diagnostic (FreeStyle Lite Strips) As directed budesonide-formoterol 160-4.5 mcg/actuation (Symbicort) 2 puffs inhalation BID calcium acetate 1,334 mg PO BID carvedilol 12.5 mg See Protocol PO BID cetirizine 5 mg PO DAILY PRN cholecalciferol (vitamin D3) 50 mcg PO DAILY clopidogrel 75 mg PO DAILY ferrous sulfate 1 tab PO QAM furosemide 80 mg PO DAILY insulin aspart U-100 (Novolog FlexPen U-100 Insulin aspart) 5 units subcut DIRECTED lancets (TRUEplus Lancets) As directed levothyroxine 150 mcg PO DAILY linagliptin (Tradjenta) 5 mg PO DAILY mirtazapine 7.5 mg PO BEDTIME PRN montelukast 10 mg PO BEDTIME pen needle, diabetic (Pentips Pen Needle) As directed once a day potassium chloride ER 8 mEq PO DAILY rivaroxaban (Xarelto) 2.5 mg PO DAILY sertraline 25 mg PO DAILY umeclidinium 62.5 mcg/actuation (Incruse Ellipta) 1 inh inhalation QAM [facility] Medical History (Updated 09/23/24 @ 16:09 by Coletet Hodge MD) Osteomyelitis CHF exacerbation Anemia CKD (chronic kidney disease) stage 5, GFR less than 15 ml/min Hypocalcemia Nicotine dependence, cigarettes, uncomplicated Atherosclerotic cardiovascular disease Thyroid cancer (~2008) 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) Hypothyroidism associated with surgical procedure (~2008) Uncontrolled type 2 diabetes mellitus with hyperglycemia (~1986) Pneumonitis ARDS (adult respiratory distress syndrome) Neuropathy Asthma-COPD overlap syndrome Anemia HTN (hypertension) Hypercholesteremia Surgical History History of thyroidectomy History of back surgery History of 2 sections History of angioplasty History of amputation of left great toe Family History Mother Hypertension Diabetes Father AA (alcohol abuse) Social History Household Members: Family Housing: Apartment Do you presently have 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 or other home services: Yes (APPLICATIONS DEVELOPMENT ANALYST) Alcohol intake: never 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 Tobacco Use Status: Former Tobacco user Years Smoked: 45 Advance Directives Date on File: 09/13/20 service: No Current occupational status: disabled Physical Exam Vital Signs: Last Vital Signs Pulse 78 12/10/24 13:40 BP 102/50 L 12/10/24 13:40 Pulse Ox 99 12/10/24 13:40 Oxygen Delivery Method Room Air 12/10/24 13:40 BMI result Body Mass Index 26.6 Results Reviewed Nephrology Results: Hgb, (12.0-16.0) 10.5 g/dl L 10/08/24 WBC, (4.8-10.8) 9.5 X10*3/uL 10/08/24 Plt Count, (160-400) 171 X10*3/uL 10/08/24 Creatinine, (0.5-1.4) 2.84 mg/dL H 10/08/24 Renal US 08/22/20 Assessment & Plan Assessment & Plan (1) ESRD needing dialysis: Code(s): N18.6 - End stage renal disease; Z99.2 - Dependence on renal dialysis Category: Medical Plan see dialysis emr Coding Level of Care Code Global (67978) Diagnoses ESRD needing dialysis N18.6; Z99.2
--- OUTSIDE RECORDS SUMMARY | 2024-12-10 18:09 | XMS_ITS | Encounter Summary ---
Author Organization [employer] Address [address] [facility] [address] [place] [address] Care Team Providers Care Cob Sawyer Name Role Phone Senait Pal MD Primary Care Provider [phone] Gustabo Fernandez PharmD Unavailable [phone] Encounter Details Date Type Department Care Team ([facility] st Contact Info) Description 11/12/2022 Orders Only [facility] MEDICINE [address] [place], [place] [phone] Senait Pal MD [address] [place], [place] [phone] Social History Tobacco Use Types Packs/Day Years [...] documented as of this encounter Care Teams Cob Sawyer Relationship Specialty Start Date End Date Senait Pal MD [address] [place] [address] PCP - General Family Medicine 02/22/20 Gustabo Fernandez PharmD [address] [place] [address] Pharmacist Internal Medicine 07/16/22 [facility] 09/14/23 documented as of this encounter
--- OUTSIDE RECORDS SUMMARY | 2024-12-10 18:09 | XMS_ITS | Encounter Summary ---
Author Organization [employer] Address [address] [facility] 7[address] [place] [address] Care Team Providers Care Senior Information Security Consultant Name Role Phone Senait Pal MD Primary Care Provider [phone] Gustabo Fernandez PharmD Unavailable [phone] Reason for Visit * Reason Comments Med Refill Encounter Details Date Type Department Care Team (Late st Contact Info) Description 11/12/2022 Refill [facility] [address] [place], [place] [phone] Senait Pal MD [address] [place], [place] [phone] Social History Tobacco Use Types Packs/Day Years [...] documented as of this encounter Care Teams Senior Information Security Consultant Relationship Specialty Start Date End Date Senait Pal MD [address] [place] [address] PCP - General Family Medicine 02/22/20 Gustabo Fernandez, PharmD [address] [place] [address] Pharmacist Internal Medicine 07/16/22 [facility] 09/14/23 documented as of this encounter
--- OUTSIDE RECORDS SUMMARY | 2024-12-10 18:09 | XMS_ITS | Clinical Summary ---
Author Organization [facility] Address [address] [address] Phone Care Team Providers Care Rigging Loft Mechanic Name Role Phone Unavailable Primary Care Provider [...] 2004 OSTEOPOROSIS SCREENING INITI AL (ONE-TIME) 08/14/2019 INFLUENZA VACCINE (#1) 2024 COVID-19 VACCINE (1 - 2023-2 5 season) 2024 RSV VACCINE (1 - 1-dose 75+ series) [...] topic Medical Devices Not on file [place] [address] [address] [place] [address] [facility] Additional Source Comments The information contained in this document represents components of the legal health record. It is not the complete legal health record.[facility]
--- OUTSIDE RECORDS SUMMARY | 2024-12-10 18:09 | XMS_ITS | Encounter Summary ---
Demographics Address [address] [place] [address] Home Phone Preferred Language es Marital Status Unknown Latter-Day Affiliation Unknown Race White Ethnic Group Unknown Author Organization [facility] Address [address] [place] [address] Phone Care Team Providers Care Tank Builder Supervisor Name Role Phone Senait Pal MD Primary Care Provider [phone] Encounter Details Date Type Department Care Team (Late st Contact Info) Description 06/08/2020 Orders Only [facility] [address] [place] [address] Provider, MD Jesus Social History Tobacco Use Types Packs/Day Years [...] encounter Results * EXT RESULT ENTRY (06/08/2020) us Historical Provider LAB BLOOD ORDERABLES Christa l Result documented in this encounter Visit Diagnoses Not on filedocumented in this encounter Care Teams Tank Builder Supervisor Relationship Specialty Start Date End Date Senait Pal MD PCP - General 03/28/20 documented as of this encounter
--- OUTSIDE RECORDS SUMMARY | 2024-12-10 18:09 | XMS_ITS | Encounter Summary ---
Author Organization [employer] Address [address] [facility] 7t [place] [address] Care Team Providers Care String Cutter Name Role Phone Senait Pal MD Primary Care Provider [phone] Gustabo Fernandez PharmD Unavailable [phone] Reason for Visit * Reason Onset Date Comments Referral 04/05/2022 Encounter Details Date Type Department Care Team ([facility] st Contact Info) Description 04/05/2022 Telephone [facility] MEDICINE [address] [place], [place] [phone] Senait Pal MD [address] [place], [place] [phone] Referral Social History Tobacco Use Types Packs/Day [...] for aallergist specialist Please contact pt at [phone] documented in this encounter Plan of Treatment Not on file documented as of this encounter Visit Diagnoses Not on filedocumented in this encounter Care Teams String Cutter Relationship Specialty Start Date End Date Senait Pal MD [address] [place] [address] PCP - General Family Medicine 02/22/20 Gustabo Fernandez, HarshaD [address] [place] [address] Pharmacist Internal Medicine 07/16/22 [facility] 09/14/23 documented as of this encounter
--- OUTSIDE RECORDS SUMMARY | 2024-12-10 18:09 | XMS_ITS | Encounter Summary ---
Author Organization [employer] Address [address] 7[address] [place] [address] Care Team Providers Care Patcher Bowling Ball Name Role Phone Senait Pal MD Primary Care Provider [phone] Gustabo Fernandez PharmD Unavailable [phone] Reason for Visit * Reason Comments Med Refill Encounter Details Date Type Department Care Team ([facility] st Contact Info) Description 01/31/2023 Refill [facility] MEDICINE [address] [place], [place] [phone] Senait Pal MD [address] [place], [place] [phone] Moderate episode of recurrent major depressive disorder [...] 025 10:41 AM EDT) No Gustabo Fernandez, PharmSpeedy Quit using tobacco (cigarettes, smokeless, etc) Tobacco Use No Gustabo Fernandez PharmD documented as of this encounter Visit Diagnoses Diagnosis Moderate episode of recurrent major depressive disorder (CMS/HCC) documented in this encounter Additional Health Concerns Assessment Noted Time PHQ-9 Depression Total Score: 7 11/01/19 23 11:04 AM EDT documented as of this encounter Care Teams Patcher Bowling Ball Relationship Specialty Start Date End Date Senait Pal MD [address] [place] [address] PCP - General Family Medicine 02/22/20 Gustabo Fernandez, PharmD [address] [place] [address] Pharmacist Internal Medicine 07/16/22 [facility] 09/14/23 documented as of this encounter
--- OUTSIDE RECORDS SUMMARY | 2024-12-10 18:09 | XMS_ITS | Encounter Summary ---
Author Organization [employer] Address [address] 7[address] [place] [address] Care Team Providers Care Marketing Automation Manager Name Role Phone Senait Pal MD Primary Care Provider [phone] Gustabo Fernandez PharmD Unavailable [phone] Reason for Visit * Reason Comments Med Refill Encounter Details Date Type Department Care Team ([facility] st Contact Info) Description 06/09/2023 Refill [facility] MEDICINE [address] [place], [place] [phone] Senait Pal MD [address] [place], [place] [phone] Moderate episode of recurrent major depressive disorder [...] documented as of this encounter Care Teams Marketing Automation Manager Relationship Specialty Start Date End Date Senait Pal MD [address] [place] [address] PCP - General Family Medicine 02/22/20 Gustabo Fernandez, PharmD [address] [place] [address] Pharmacist Internal Medicine 07/16/22 [facility] 09/14/23 documented as of this encounter
--- OUTSIDE RECORDS SUMMARY | 2024-12-10 18:09 | XMS_ITS | Clinical Summary ---
Demographics Address [address] [facility] [address] [place] [address] Home Phone Preferred Language es Marital Status Unknown Confucianism Affiliation Unknown Race White Ethnic Group Unknown Author Organization [facility] Address [address] [place] [address] Phone Care Team Providers Care Steam Table Worker Name Role Phone Senait Pal MD Primary Care Provider [phone] Allergies Active Allergy Reactions Criticality Noted Date [...] Visual Foot Exam 04/17/2020 Influenza Vaccine (#1) 2024 , 01/14/2020, 01/23/2017, Additional history exists Diabetes: Hemoglobin A1C 11/24/2024 025, 10/22/2023, 11/19/2018 Hepatitis B Vaccine Aged Out 06/17/2014, 02/09/2014, 09/15/2013 No longer eligible based on patient's age to complete this topic Pneumococcal Vaccine: 50+ Years Completed 10/31/2022, 02/26/2011 Pneumococcal Vaccine: Peds (0 to 5 Years) and At-Risk Patients (6 to 49 Years) Discontinued 10/31/2022, 02/26/[address] [place] [phone] [facility] ([id number]) [place] [id number] [facility] ([id number]) [place] [phone] Care Teams Steam Table Worker Relationship Specialty Start Date End Date Senait Pal MD PCP - General 03/28/20
--- OUTSIDE RECORDS SUMMARY | 2024-12-10 18:09 | XMS_ITS | Encounter Summary ---
Author Organization [employer] Address [address] [place] [address] 7t [place] [address] Care Team Providers Care Youth Development Professional Name Role Phone Senait Pal MD Primary Care Provider Gustabo Fernandez PharmD Unavailable [phone] Reason for Visit * Reason Onset Date Comments Other 11/21/2022 Results 11/21/2022 Encounter Details Date Type Department Care Team ([facility] st Contact Info) Description 11/21/2022 Telephone [facility] MEDICINE [address] [place], [place] [phone] Senait Pal MD [address] [place], [place] [phone] Other; Results Social History Tobacco Use Types [...] 2:14 PM EDT Tc from Yuliya at [facility] requesting on behalf of patient a new script for a glucose meter, current one doesn't work. Patient is also requesting results from kidney biopsy. Please call [phone]. documented in this encounter Plan of Treatment [...] documented as of this encounter Care Teams Youth Development Professional Relationship Specialty Start Date End Date Sneait Pal MD [address] [place] [address] PCP - General Family Medicine 02/22/20 Gustabo Fernandez, PharmD [address] [place] [address] Pharmacist Internal Medicine 07/16/22 [facility] 09/14/23 documented as of this encounter
--- OUTSIDE RECORDS SUMMARY | 2024-12-10 18:09 | XMS_ITS | Encounter Summary ---
Author Organization [employer] Address [address] [facility] 7t [place] [address] Care Team Providers Care Highway Maintenance Worker Name Role Phone Senait Pal MD Primary Care Provider [phone] Gustabo Fernandez PharmD Unavailable [phone] Reason for Visit * Reason Onset Date Comments Durable Medical Equipment 12/10/2022 Encounter Details Date Type Department Care Team (Late st Contact Info) Description 12/10/2022 Telephone [facility] MEDICINE [address] [place], [place] [phone] Senait Pal MD [address] [place], [place] [phone] Durable Medical Equipment Social History Tobacco Use [...] 112/59( 025 10:41 AM EDT) No Gustabo Fernandez PharmD Quit using tobacco (cigarettes, smokeless, etc) Tobacco Use No Gustabo Fernandez PharmD documented as of this encounter Visit Diagnoses Not on filedocumented in this encounter Additional Health Concerns Assessment Noted Time PHQ-9 Depression Total Score: 7 11/01/19 23 11:04 AM EDT documented as of this encounter Care Teams Highway Maintenance Worker Relationship Specialty Start Date End Date Senait Pal MD [address] [place] [address] PCP - General Family Medicine 02/22/20 Gustabo Fernandez, Agnes [address] [place] [address] Pharmacist Internal Medicine 07/16/22 [facility] 09/14/23 documented as of this encounter
--- OUTSIDE RECORDS SUMMARY | 2024-12-10 18:09 | XMS_ITS | Encounter Summary ---
Author Organization [employer] Address [address] [facility] 7t [place] [address] Care Team Providers Care Computerized Table Cutter Name Role Phone Senait Pal MD Primary Care Provider [phone] Gustabo Fernandez PharmD Unavailable [phone] Encounter Details Date Type Department Care Team ([facility] st Contact Info) Description 11/01/2022 Abstract [facility] MEDICINE 230 [place], [place] [phone] Senait Pal MD [address] [place], [place] [phone] Social History Tobacco Use Types Packs/Day Years [...] Eye Exam (08/04/2022) Eye Exam Normal [facility] Unassigned Pcp HEALTH MAINTENANCE Final Result documented in this encounter Visit Diagnoses Not on filedocumented in this encounter Additional Health Concerns Assessment Noted Time PHQ-9 Depression Total Score: 7 11/01/19 23 11:04 AM EDT documented as of this encounter Care Teams Computerized Table Cutter Relationship Specialty Start Date End Date Senait Pal MD [address] [place] [address] PCP - General Family Medicine 02/22/20 Gustabo Fernandez, HarshaD [address] [place] [address] Pharmacist Internal Medicine 07/16/22 [facility] 09/14/23 documented as of this encounter
--- OUTSIDE RECORDS SUMMARY | 2024-12-10 18:09 | XMS_ITS | Clinical Summary ---
Author Organization [employer] Address [address] [facility] [address] [place] [address] Care Team Providers Care Showroom Sales Consultant Name Role Phone Senait Car MD Primary Care Provider [phone] Gustabo Fernandez PharmD Unavailable [phone] Allergies Active Allergy Reactions Criticality Noted Date [...] EVERY 4-8 HOURS NEEDED 72 lozenge Active Lancets (Unilet Micro-Thin 33G) [facility] [place] BLOOD SUGAR THREE TIMES DAILY 100 each 023 Active isosorbide mononitrate ER (Imdur) 30 MG 24 hr tablet Take 1 tablet by mouth Once per day. 024 Active hydrALAZINE (Apresoline) 10 MG tablet Take 1 tablet (10 mg) by mouth 2 times daily. 60 tablet 07/09/2 024 Active traMADol 25 MG tabletIndicati ons:Pain in both lower extremities Take 25 mg by mouth if needed each day for severe pain. 30 tablet Active amLODIPine (Norvasc) 2.5 MG tablet Take 2.5 mg by mouth in the morning. Active calcium acetate (Phoslo) 667 MG capsule Take 667 mg by mouth with breakfast, with lunch, and with evening meal. Active Incruse Ellipta 62.5 MCG/ACT aerosol powder INHALE 1 PUFF BY MOUTH EVERY DAY AT THE SAME TIME IN THE MORNING 30 each Active Aspirin Low Dose 81 MG EC tablet TAKE 1 TABLET BY MOUTH EVERYDAY AT NOON 90 tablet 3 Active Ferrous Sulfate (iron) 325 (65 Fe) MG tablet TAKE 1 TABLET BY MOUTH EVERY EVENING 90 tablet 3 Active atorvastatin (Lipitor) 80 MG tablet TAKE 1 TABLET BY MOUTH AT BEDTIME 90 tablet 3 Active levothyroxine (Synthroid) 75 MCG tablet Take 1 tablet (75 mcg) by mouth before breakfast. 90 tablet 3 025 2025 Active levothyroxine (Synthroid) 88 MCG tablet Take 1 tablet (88 mcg) by mouth before breakfast. 90 tablet 3 025 2025 Active BD Pen Needle Isabella Ultrafine 32G X 4 MM misc USE DIRECTED FOUR TIMES DAILY WITH INSULIN 100 each 11 025 Active clopidogrel (Plavix) 75 MG tablet TAKE 1 TABLET BY MOUTH EVERYDAY AT NOON 90 tablet 3 Active nystatin (Mycostatin) cream Apply topically 2 times daily. 60 g 3 025 2025 Active mirtazapine (Remeron) 7.5 MG tablet TAKE 1 TABLET BY MOUTH AT BEDTIME 30 tablet 1 Active TRUEplus Lancets 33G miscIndication s:Type 2 diabetes mellitus with stage 4 chronic kidney disease, with long-term current use of insulin ([facility]) TEST BLOOD SUGAR THREE TIMES DAILY 100 each 5 025 Active glucose blood (FreeStyle Precision Andrea Test) test stripIndicatio ns:Type 2 diabetes mellitus with diabetic peripheral angiopathy without gangrene, with long-term current use of insulin ([facility]),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 chronic dialysis, with long-term current use of insulin ([facility]) USE TO TEST BLOOD SUGAR THREE TIMES DAILY 100 strip Active cholecalcifero l VITAMIN D (Vitamin D-3) 50 MCG (1999 UT) tablet TAKE 1 TABLET BY MOUTH EVERYDAY AT NOON 90 tablet 3 Active montelukast (Singulair) 10 MG tablet TAKE 1 TABLET BY MOUTH EVERY EVENING 90 tablet 3 Active carvedilol (Coreg) 12.5 MG tablet TAKE 1 TABLET BY MOUTH TWICE DAILY AT NOON AND IN THE EVENING 180 tablet Active cetirizine (ZyrTEC) 5 MG tablet TAKE 1 TABLET BY MOUTH EVERY DAY NEEDED FOR ALLERGIES 90 tablet Active Continuous Glucose Foreign Language Professor (FreeStyle Nata 3 [place]) deviceIndicati ons:Type 2 diabetes mellitus with diabetic peripheral angiopathy without gangrene, with long-term current use of insulin ([facility]) 1 each Once per day. Use as directed for CGM 1 each Active Continuous Glucose Sensor (FreeStyle Nata 3 Plus Sensor) miscIndication s:Type 2 diabetes mellitus with diabetic peripheral angiopathy without gangrene, with long-term current use of insulin ([facility]) 1 each every 15 days. Apply 1 every 15 days as directed for CGM 2 each Active Tradjenta 5 MG tabletIndicati ons:Type 2 diabetes mellitus with stage 4 chronic kidney disease, with long-term current use of insulin ([facility]) TAKE 1 TABLET BY MOUTH EVERYDAY AT NOON 30 tablet Active budesonide-for moterol (Symbicort) 160-4.5 MCG/ACT inhaler INHALE 2 PUFFS BY MOUTH TWICE DAILY. RINSE MOUTH AFTER USING. 10.2 g Active cetirizine (ZyrTEC) 5 MG tablet TAKE 1 TABLET BY MOUTH ONCE DAILY NEEDED FOR ALLERGIES 30 tablet 024 2024 Discontinued Continuous Glucose Foreign Language Professor (FreeStyle Nata 2 [place]) deviceIndicati ons:Type 2 diabetes mellitus with diabetic peripheral angiopathy without gangrene, with long-term current use of insulin ([facility]),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 chronic dialysis, with long-term current use of insulin ([facility]) Scan sensor every 8 hours 1 each 1 024 2024 Discontinued cholecalcifero l VITAMIN D (Vitamin D-3) 50 MCG (1999 UT) tablet TAKE 1 TABLET BY MOUTH EVERYDAY AT NOON 90 tablet 3 024 2024 Discontinued montelukast (Singulair) 10 MG tablet TAKE 1 TABLET BY MOUTH EVERY EVENING 90 tablet 3 024 2024 Discontinued budesonide-for moterol (Symbicort) 160-4.5 MCG/ACT inhaler INHALE 2 PUFFS BY MOUTH TWICE DAILY RINSE MOUTH AFTER USING. DO NOT SWALLOW 10.2 g 024 2024 Discontinued carvedilol (Coreg) 12.5 MG tablet TAKE 1 TABLET BY MOUTH TWICE DAILY AT NOON AND IN THE EVENING 180 tablet 025 2024 Discontinued Tradjenta 5 MG tabletIndicati ons:Type 2 diabetes mellitus with stage 4 chronic kidney disease, with long-term current use of insulin ([facility]) TAKE 1 TABLET BY MOUTH EVERYDAY AT NOON 30 tablet 1 025 2024 Discontinued Continuous Glucose Sensor (FreeStyle Nata 2 Sensor) miscIndication s:Type 2 diabetes mellitus with diabetic peripheral angiopathy without gangrene, with long-term current use of insulin ([facility]),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 chronic dialysis, with long-term current use of insulin ([facility]) APPLY 1 SENSOR EVERY 14 DAYS 2 each 025 2024 Discontinued Continuous Glucose Sensor (FreeStyle Nata 2 Plus Sensor) miscIndication s:Type 2 diabetes mellitus with diabetic peripheral angiopathy without gangrene, with long-term current use of insulin ([facility]) 1 each every 15 days. 2 each 025 2024 Discontinued Active Problems Problem Noted Date Diagnosed Date Weight loss 10/11/2024 Assessment & Plan (10/11/2024 10:32 PM EDT): - Multifactorial - Will request prescription for nutritional supplement GERD (gastroesophageal reflux disease) Assessment & Plan (10/23/2023 7:12 PM EDT): - patient has been taking omeprazole - consider switching to pantoprazole or discontinue PPI - consider famotidine Diabetic ulcer of toe of rig ht foot associated with type 2 diabetes mellitus 10/20/2023 Assessment & Plan (10/08/2024 5:58 AM EDT): - followed by [facility] Wound care Assessment & Plan (09/05/2024 6:20 AM EDT): - followed by 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 Wound care clinic Assessment & Plan (10/31/2023 2:36 PM EDT): -no evidence of infection -followed by vascular -advised keep area clean and dressed -return to clinic with changes in wound appearance, drainage, pain, redness Assessment & Plan (10/23/2023 11:50 AM EDT): - Following with vascular specialist and wound care clinic at [facility] - MRI on 09/26/23 showed osteomyelitis - [...] ejection fract ion) 08/22/2023 Assessment & Plan (10/11/2024 10:38 PM EDT): - acute on chronic HF in July 2023, hospitalized in [facility] - transthoracic echocardiogram on 07/24/23: Mildly increased left ventricular cavity size. Mildly increased LV wall thickness. LV systolic function is mild to moderately decreased. EF 35-40%. Basal inferior and mild inferior segments are hypokinetic. Mildly increased RV size. Severely dilated left atrium. Right ventricular systolic pressure is 71 mmHg. Severely elevated RA pressure. Severe pulmonary hypertension. - Most recent stress test on 09/17/2024. Myocardial perfusion imaging showed no myocardial ischemia. Gated LVEF is 35% - monitor fluid balance - following with both cardiovascular specialist and lamination spinner Assessment & Plan (08/24/2024 9:25 AM EDT): - acute on chronic HF in July 2023, hospitalized in [facility] - transthoracic echocardiogram on 07/24/23: Mildly increased [...] monitor fluid balance - following with both cardiovascular specialist and lamination spinner Assessment & Plan (10/31/2023 2:57 PM EDT): [...] chronic HF in July 2023, hospitalized in [facility] - transthoracic echocardiogram on 07/24/23: Mildly increased [...] monitor fluid balance - following with both cardiovascular specialist and lamination spinner Hearing loss in left ear 07/23/2023 Assessment & Plan (10/08/2024 5:57 AM EDT): - evaluated by ENT; unilateral sudden loss -> MRI in Dec 2023 showed meningioma causing mass effect on the subjacent brain - neurologist 09/23/24 3:30 Assessment & Plan (09/05/2024 6:15 AM EDT): - evaluated by ENT; unilateral sudden loss -> MRI in Dec 2023 showed meningioma causing mass effect on the subjacent brain - upcoming appointment with neurologist 09/23/24 3:30 Assessment & Plan (10/31/2023 2:55 PM EDT): [...] audiology Pulmonary hypertension 04/29/2023 Assessment & Plan (10/08/2024 5:54 AM EDT): - suggested by CT in Dec 2022 - will evaluate with sleep study Assessment & Plan (04/29/2023 9:43 AM EST): - suggested by CT in Dec 2022 - will evaluate with sleep study Asthma-COPD overlap syndrome 04/29/2023 Assessment & Plan (09/05/2024 6:25 AM EDT): - likely COPD-asthma overlap - most recent exacerbation: today, treating with antibiotic (caution with QT prolongation) - evaluate with PFT - continue budesonide / formoterol (Symbicort) - continue Umeclidinium - continue montelukast Assessment & Plan (04/29/2023 9:45 AM EST): - likely COPD-asthma overlap - evaluate with PFT - add Umeclidinium Anemia 04/23/2023 Assessment & Plan (08/24/2024 9:28 AM EDT): - received transfusion while hospitalized in July 2023 - received erythropoietin, Retacrit 20,000 units at nephrology office on 08/05/23 Assessment & Plan (10/22/2023 9:52 AM EDT): [...] states that she is scheduled for transfusion. Sap Portal Developer is also planning to start EPO. Assessment & Plan (04/29/2023 9:41 AM EST): - chronic anemia due to CKD - plan to start erythropoietin with cardiovascular specialist or heamtologist Prolonged Q-T interval on ECG 02/26/2023 Assessment & Plan (10/08/2024 5:54 AM EDT): - QTc > 500 ms - lamination spinner recommends to discontinue SSRI, and sertraline was discontinued - after discontinuation of SSRI, QTc is still long - optimize electrolyte replacement - now on peritoneal dialysis Assessment & Plan (09/05/2024 6:08 AM EDT): - QTc > 500 ms - lamination spinner recommends to discontinue SSRI, and sertraline was discontinued - after discontinuation of SSRI, QTc is still long - optimize electrolyte replacement - now on peritoneal dialysis Assessment & Plan (10/23/2023 11:54 AM EDT): - QTc > 500 ms - lamination spinner recommends to discontinue SSRI, and sertraline was discontinued - optimize electrolyte replacement - now on peritoneal dialysis Assessment & Plan (08/25/2023 6:13 PM EDT): - QTc > 500 ms - lamination spinner recommends to discontinue SSRI, and sertraline was discontinued - pharmacist will review her medications - optimize electrolyte replacement Assessment & Plan (07/26/2023 6:11 AM EDT): - most recent QTc 571 ms - lamination spinner recommends to discontinue SSRI - pharmacist will review her medications - optimize electrolyte replacement Assessment & Plan (02/26/2023 12:16 PM EST): - most recent QTc 571 ms - lamination spinner recommends to discontinue SSRI - pharmacist will review her medications - optimize electrolyte replacement Type 2 diabetes mellitus wit h chronic kidney disease on chronic dialysis, with long-term current use of insulin 07/03/2022 Assessment & Plan (10/08/2024 6:13 AM EDT): - A1C 6.4% on 08/24/24, improved from 6.7% on 10/22/23 - last seen by college president, Dr. Herndon in Apr 2022. - Continue basal insulin: Tresiba 13 units qhs - Continue bolus insulin: Novolog 5 units with each meal for now. Consider increasing due to worsening A1C. Patient states she has not been using it much - continue Trajenta - consider GLP-1 agonist - continue diligent glucose monitoring with CGM due to hypo- and hyperglycemic episodes - Previously on metformin, but discontinued due to CKDIII - Previously on SGLT2i / dapagliflozin (Farxiga) which was discontinued due to CKDV/ESRD - Last eye exam: July 2024, proliferative diabetic retinopathy. [facility] [employer] [employer]. Dr. Blue. - Last foot exam: 08/24/24 High-risk. PAD. Neuropathy. s/p amputation of left big-toe. - Last microalbumin test: 8/16/23 UACR > 2000 - Last lipid profile 08/24/24 TRI; CHOL 128; LDL 62; HDL 53 - Last dental exam: ? Assessment & Plan (09/05/2024 6:19 AM EDT): A1C 6.7% on 10/22/23 - last seen by college president, Dr. Herndon in Apr 2022. - Continue basal insulin: Tresiba 11 units qhs - Continue bolus insulin: Novolog 5 units with each meal for now. Consider increasing due to worsening A1C. - continue Trajenta - consider GLP-1 agonist - continue diligent glucose monitoring with CGM due to hypo- and hyperglycemic episodes - Previously on metformin, but discontinued due to CKDIII. Previously on SGLT2i, / dapagliflozin (Farxiga) which was discontinued due to CKDIV/V, now ESRD - Last eye exam: July 2022, proliferative diabetic retinopathy - Last foot exam: 08/25/24. High-risk. PAD. Neuropathy. s/p amputation of left big-toe. - Last microalbumin test: 10/31/22 UACR > 2000 - Last lipid profile: 09/05/23 - Last dental exam: ? Assessment & Plan (10/23/2023 12:29 PM EDT): A1C 6.7% on 10/22/23 - last seen by college president, Dr. Herndon in Apr 2022. - Continue [...] 6.8% on 07/23/23 - last seen by college president, Dr. Herndon in Apr 2022. - Continue [...] 6.9% on 10/31/22 - last seen by college president, Dr. Herndon in Apr 2022. - Continue [...] on 03/29/22 - seen by Dr. Herndon, [facility] Endo for mostly hypothyroidism in May 2022 [...] 8.8% on 03/29/22 - last seen by [facility] college president on 02/20/21. Refer to a new college president for transportation convenience. - Continue basal insulin: [...] find alternative medication and consult with her cardiovascular specialist Assessment & Plan (07/26/2023 6:10 AM EDT): [...] find alternative medication and consult with her cardiovascular specialist Assessment & Plan (04/29/2023 9:24 AM EST): [...] 200 mg bid Dry skin dermatitis 02/27/2022 History of smoking 25-50 pack years 02/27/2022 Assessment & Plan (10/08/2024 6:01 AM EDT): - continue working on smoking cessation - referred to lung cacer screening program; referring back again - most recent chest CT (not screening CT) on 12/31/22 showed no suspicious lesions - she has stopped smoking, but still has > 20 pack years Assessment & Plan (09/05/2024 6:26 AM EDT): - continue working on smoking cessation - referred to lung cacer screening program; referring back again - most recent chest CT (not screening CT) on 12/31/22 showed no suspicious lesions - she has stopped smoking, but still has > 20 pack years Assessment & Plan (08/25/2023 6:06 PM EDT): [...] Ischemic heart disease 01/09/2016 Assessment & Plan (10/11/2024 10:37 PM EDT): - Cardiology, [facility], last seen on 08/05/23 -Nuclear stress test done in 2016 showed likely normal myocardial perfusion imaging. Last echo 2020 showed EF 60-65% with mild diastolic dysfunction, mild MR, mild pulmonary hypertension -Most recent chest CT in Dec 2022 showed: Dilated main pulmonary artery measuring 3.5 cm which may indicate pulmonary arterial hypertension. Mild to moderate three- vessel coronary calcium. -Nuclear stress test on 09/17/2024 showed no myocardial ischemia, left ventricular ejection fraction was 35% -Continue isosorbide - Assessment & Plan (09/05/2024 6:11 AM EDT): - Cardiology, [facility], last seen on 08/05/23 -Nuclear stress test done in 2016 showed likely normal myocardial perfusion imaging. Last echo 2020 showed EF 60-65% with mild diastolic dysfunction, mild MR, mild pulmonary hypertension -Most recent chest CT in Dec 2022 showed: Dilated main pulmonary artery measuring 3.5 cm which may indicate pulmonary arterial hypertension. Mild to moderate three- vessel coronary calcium. -Continue isosorbide -She was supposed to have a pharm nuclear stress test -Advised to contact them for a follow up. Assessment & Plan (10/22/2023 9:50 AM EDT): [facility] -Nuclear [...] Plan (08/25/2023 6:13 PM EDT): - Cardiology, [facility], last seen on 08/05/23 -Nuclear stress test [...] Plan (07/23/2023 11:54 AM EDT): - Cardiology, [facility], last seen on 01/15/23. EKG showed further [...] Plan (04/29/2023 9:35 AM EST): - Cardiology, [facility], last seen on 01/15/23. EKG showed further [...] Plan (02/25/2023 4:55 AM EST): - Cardiology, [facility], last seen on 01/15/23. EKG showed further increase in QT-c prolongation, likely due to electrolyte abnormality and medications. Sent to ED. -Nuclear stress test done in 2016 showed likely normal myocardial perfusion imaging. Last echo 2020 showed EF 60-65% with mild diastolic dysfunction, mild MR, mild pulmonary HTN Assessment & Plan (11/12/2022 10:57 AM EDT): - Previously seen by [facility] - Currently following with [facility] cardiology, last seen on 06/20/22. Found to have QT prolongation, likely due to electrolyte abnormality and medications Assessment & Plan (06/11/2022 8:54 AM EDT): - Previously seen by [facility] - Currently following with [facility] cardiology Peripheral venous insufficiency 02/28/2015 ESRD on dialysis 09/15/2013 Assessment & Plan (10/08/2024 6:00 AM EDT): - Sap Portal Developer: Dr. Bowden, last seen on 10/13/24 - on peritoneal dialysis at home - avoid nephrotoxic drug Assessment & Plan (08/24/2024 9:27 AM EDT): - Sap Portal Developer: Dr. Bowden, last seen on 10/13/24 - on peritoneal dialysis at home - avoid nephrotoxic drug Assessment & Plan (10/23/2023 11:55 AM EDT): - Sap Portal Developer: Dr. Bowden, last seen on 10/13/24 - [...] - pt has an upcoming appt with cardiovascular specialist - avoid nephrotoxic drug - renal dose [...] - pt has an upcoming appt with cardiovascular specialist - avoid nephrotoxic drug - renal dose medications Assessment & Plan (10/20/2023 11:19 AM EDT): >>ASSESSMENT AND PLAN FOR CKD (CHRONIC KIDNEY DISEASE) STAGE 5, GFR LESS THAN 15 ML/MIN ([facility]) WRITTEN ON 10/20/2023 11:18 AM BY SENAIT CAR MD >>ASSESSMENT AND PLAN FOR STAGE 5 CHRONIC KIDNEY DISEASE NOT ON CHRONIC DIALYSIS ([facility]) WRITTEN ON 11/12/2022 10:59 AM BY SENAIT CAR MD - CKDIII/IV - most recent lab: Dec 2021 SCr 2.0 ; BUN 20; eGFR 24 - pt has an upcoming appt with cardiovascular specialist - avoid nephrotoxic drug - renal dose medications - obtain kidney biopsy result Assessment & Plan (10/20/2023 11:19 AM EDT): >>ASSESSMENT AND PLAN FOR CKD (CHRONIC KIDNEY DISEASE) STAGE 5, GFR LESS THAN 15 ML/MIN ([facility]) WRITTEN ON 10/20/2023 11:18 AM BY SENAIT CAR MD >>ASSESSMENT AND PLAN FOR STAGE 5 CHRONIC KIDNEY DISEASE NOT ON CHRONIC DIALYSIS ([facility]) WRITTEN ON 02/26/2023 12:04 PM BY SENAIT CRA MD - CKD IV-V - most recent lab: 01/21/23 Na 145; K 2.9; Cl 108; Bicarb 24; BUN 33; Scr 3.3; eGFR 15; Ca 5.7; Phos 4.6; Glu 152 - Sap Portal Developer: Dr. Bowden, last seen in September 2021 - avoid nephrotoxic drug - renal dose medications - scheduled appt with Dr. Bowden for 02/26/23 at 1:30 PM Assessment & Plan (10/20/2023 11:19 AM EDT): >>ASSESSMENT AND PLAN FOR CKD (CHRONIC KIDNEY DISEASE) STAGE 5, GFR LESS THAN 15 ML/MIN ([facility]) WRITTEN ON 10/20/2023 11:18 AM BY SENAIT CAR MD >>ASSESSMENT AND PLAN FOR STAGE 5 CHRONIC KIDNEY DISEASE NOT ON CHRONIC DIALYSIS ([facility]) WRITTEN ON 04/29/2023 9:36 AM BY SENAIT CAR MD - CKD IV-V - most recent lab: 01/21/23 Na 145; K 2.9; Cl 108; Bicarb 24; BUN 33; Scr 3.3; eGFR 15; Ca 5.7; Phos 4.6; Glu 152 - Sap Portal Developer: Dr. Bowden, last seen in Mar 2023 - avoid nephrotoxic drug - renal dose medications Assessment & Plan (10/20/2023 11:19 AM EDT): >>ASSESSMENT AND PLAN FOR CKD (CHRONIC KIDNEY DISEASE) STAGE 5, GFR LESS THAN 15 ML/MIN ([facility]) WRITTEN ON 10/20/2023 11:18 AM BY SENAIT CAR MD >>ASSESSMENT AND PLAN FOR STAGE 5 CHRONIC KIDNEY DISEASE NOT ON CHRONIC DIALYSIS ([facility]) WRITTEN ON 07/23/2023 11:57 AM BY MIRNA SNYDER - CKD IV-V - most recent lab: 01/21/23 Na 145; K 2.9; Cl 108; Bicarb 24; BUN 33; Scr 3.3; eGFR 15; Ca 5.7; Phos 4.6; Glu 152 - Sap Portal Developer: Dr. Bowden, last seen in Mar 2023 - avoid nephrotoxic drug - renal dose medications Assessment & Plan (10/20/2023 11:19 AM EDT): >>ASSESSMENT AND PLAN FOR CKD (CHRONIC KIDNEY DISEASE) STAGE 5, GFR LESS THAN 15 ML/MIN ([facility]) WRITTEN ON 10/20/2023 11:18 AM BY SENAIT CAR MD >>ASSESSMENT AND PLAN FOR STAGE 5 CHRONIC KIDNEY DISEASE NOT ON CHRONIC DIALYSIS ([facility]) WRITTEN ON 08/25/2023 5:46 PM BY SENAIT CAR MD - CKD IV-V - Sap Portal Developer: Dr. Bowden, last seen in July 2023 - avoid nephrotoxic drug - renal dose medications - starting dialysis soon, likely peritoneal Peripheral arterial occlusive disease 04/16/2013 Assessment & Plan (10/11/2024 10:36 PM EDT): -s/p balloon angioplasty of left SFA on 06/10/13 -s/p left big-toe amputation -previously followed by Dr. Fuchs and Dr. Courtney at [facility], last appt in Jan 2020 -previously followed by Dr. Butler, last seen in Dec 17 -recently restarted seeing [facility] customer advisor specialist, last seen in June 2024 - recently started seeing [facility] -s/p left LE angioplasty on 07/10/23 -continue Plavix and ASA -discontinued cilostazol since it is contraindicated for HF -continue tramadol for claudication pain and other back / joint pain -work on risk factor management Assessment & Plan (09/05/2024 6:10 AM EDT): -s/p balloon angioplasty of left SFA on 06/10/13 -s/p left big-toe amputation -previously followed by Dr. Fuchs and Dr. Courtney at [facility], last appt in Jan 2020 -currently followed by Dr. Butler, last seen in Dec 17 -recently restarted seeing [facility] customer advisor specialist, last seen in June 2024 -s/p left LE angioplasty on 07/10/23 -continue Plavix and ASA -discontinued cilostazol since it is contraindicated for HF -continue tramadol for claudication pain and other back / joint pain -work on risk factor management Assessment & Plan (10/23/2023 11:54 AM EDT): -s/p balloon angioplasty of left SFA on 06/10/13 -s/p left big-toe amputation -previously followed by Dr. Fuchs and Dr. Courtney at [facility], last appt in Jan 2020 -currently followed by Dr. Butler, last seen on 07/10/23 -s/p left LE angioplasty on 07/10/23 -previously seen by [facility] wound care on 05/2021 -continue Plavix and ASA -discontinued cilostazol since it is contraindicated for HF -continue tramadol for claudication pain and other back / joint pain -work on risk factor management Assessment & Plan (08/25/2023 6:07 PM EDT): -s/p balloon angioplasty of left SFA on 06/10/13 -s/p left big-toe amputation -previously followed by Dr. Fuchs and Dr. Courtney at [facility], last appt in Jan 2020 -currently followed by Dr. Butler, last seen on 07/10/23 -s/p left LE angioplasty on 07/10/23 -previously seen by [facility] wound care on 05/2021 -continue Plavix and ASA -discontinue cilostazol since it is contraindicated for HF -continue tramadol for claudication pain and other back / joint pain -work on risk factor management Assessment & Plan (07/23/2023 12:32 PM EDT): -s/p balloon angioplasty of left SFA on 06/10/13 -s/p left big-toe amputation -previously followed by Dr. Fuchs and Dr. Courtney at [facility], last appt in Jan 2020 -currently followed by Dr. Butler, last seen on 07/10/23 -s/p left LE angioplasty on 07/10/23 -previously seen by [facility] wound care on 05/2021 -continue Plavix and ASA -continue cilostazol -continue tramadol for claudication pain and other back / joint pain -work on risk factor management Assessment & Plan (04/29/2023 9:35 AM EST): -s/p balloon angioplasty of left SFA on 06/10/13 -s/p left big-toe amputation -previously followed by Dr. Fuchs and Dr. Courtney at [facility], last appt in Jan 2020 -currently followed by Dr. Butler, last seen on 04/24/22 -previously seen by [facility] wound care on 05/2021 -continue Plavix and ASA -continue cilostazol -continue tramadol for claudication pain and other back / joint pain -work on risk factor management Assessment & Plan (02/25/2023 4:53 AM EST): -s/p balloon angioplasty of left SFA on 06/10/13 -s/p left big-toe amputation -previously followed by Dr. Fuchs and Dr. Courtney at [facility], last appt in Jan 2020 -currently followed by Dr. Butler, last seen on 04/24/22 -previously seen by [facility] wound care on 05/2021 -continue Plavix and ASA -continue cilostazol -continue tramadol for claudication pain and other back / joint pain -work on risk factor management Assessment & Plan (11/12/2022 10:57 AM EDT): -s/p balloon angioplasty of left SFA on 06/10/13 -s/p left big-toe amputation -previously followed by Dr. Fuchs and Dr. Courtney at [facility], last appt in Jan 2020 -currently followed by Dr. Butler, last seen on 04/24/22 -previously seen by [facility] wound care on 05/2021 -continue Plavix and ASA -continue cilostazol -continue tramadol for claudication pain and other back / joint pain -work on risk factor management Assessment & Plan (06/11/2022 8:43 AM EDT): -s/p balloon angioplasty of left SFA on 06/10/13 -s/p left big-toe amputation -previously followed by Dr. Fuchs and Dr. Courtney at [facility], last appt in Jan 2020 -currently followed by Dr. Butler, last seen on 04/24/22 -previously seen by [facility] wound care on 05/2021 -continue Plavix and ASA -continue cilostazol -continue tramadol for claudication pain and other back / joint pain -work on risk factor management Assessment & Plan (04/01/2022 12:15 PM EST): -s/p balloon angioplasty of left SFA on 06/10/13 -s/p left big-toe amputation -previously followed by Dr. Fuchs and Dr. Courtney at [facility], last appt in Jan 2020 -currently followed by Dr. Butler and [facility] wound care on 05/2021, with [facility] RN for wound check at home -continue Plavix and ASA -continue cilostazol -continue tramadol for claudication pain and other back / joint pain -work on risk factor management Bilateral femoral artery stenosis 04/16/2013 Assessment & Plan (08/24/2024 9:25 AM EDT): - s/p left lower extremity aortogram and left SFA plasty 07/10/23 Assessment & Plan (07/26/2023 6:15 AM EDT): - s/p left lower extremity aortogram and left SFA plasty 07/10/23 Hypothyroidism 04/23/2012 Assessment & Plan (10/08/2024 5:59 AM EDT): -h/o papillary thyroid cancer, s/p thyroidectomy -Goal TSH 0.5-1 -Most recent thyroid function test: 01/21/23 TSH 1.75 -Current replacement: levothyroxine 175 mcg daily -Continue current replacement, with caution since pt is losing weight -Previously seeing [facility] endocrinology; referred to a new college president for both DM and hypothyroidism / Hx thyroid cancer; pt has not received an appt yet. -Seen by [facility] endocrinology Dr. Herndon in Apr 2022. Assessment & Plan (08/24/2024 9:27 AM EDT): -h/o papillary thyroid cancer, s/p thyroidectomy -Goal TSH 0.5-1 -Most recent thyroid function test: 01/21/23 TSH 1.75 -Current replacement: levothyroxine 175 mcg daily -Continue current replacement, with caution since pt is losing weight -Previously seeing [facility] endocrinology; referred to a new college president for both DM and hypothyroidism / Hx thyroid cancer; pt has not received an appt yet. -Seen by [facility] endocrinology Dr. Herndon in Apr 2022. Assessment & Plan (10/23/2023 7:04 PM EDT): -h/o papillary thyroid cancer, s/p thyroidectomy -Goal TSH 0.5-1 -Most recent thyroid function test: 01/21/23 TSH 1.75 -Current replacement: levothyroxine 175 mcg daily -Continue current replacement, with caution since pt is losing weight -Previously seeing [facility] endocrinology; referred to a new college president for both DM and hypothyroidism / Hx thyroid cancer; pt has not received an appt yet. -Seen by [facility] endocrinology Dr. Herndon in Apr 2022. Assessment & Plan (08/25/2023 5:49 PM EDT): -h/o papillary thyroid cancer, s/p thyroidectomy -Goal TSH 0.5-1 -Most recent thyroid function test: 01/21/23 TSH 1.75 -Current replacement: levothyroxine 175 mcg daily -Continue current replacement, with caution since pt is losing weight -Previously seeing [facility] endocrinology; referred to a new college president for both DM and hypothyroidism / Hx thyroid cancer; pt has not received an appt yet. -Seen by [facility] endocrinology Dr. Herndon in Apr 2022. Assessment & Plan (07/23/2023 12:30 PM EDT): -h/o papillary thyroid cancer, s/p thyroidectomy -Goal TSH 0.5-1 -Most recent thyroid function test: 01/21/23 TSH 1.75 -Current replacement: levothyroxine 175 mcg daily -Continue current replacement, with caution since pt is losing weight -Previously seeing [facility] endocrinology; referred to a new college president for both DM and hypothyroidism / Hx thyroid cancer; pt has not received an appt yet. -Seen by [facility] endocrinology Dr. Herndon in Apr 2022. Assessment & Plan (04/29/2023 9:39 AM EST): -h/o papillary thyroid cancer, s/p thyroidectomy -Goal TSH 0.5-1 -Most recent thyroid function test: 01/21/23 TSH 1.75 -Current replacement: levothyroxine 175 mcg daily -Continue current replacement, with caution since pt is losing weight -Previously seeing [facility] endocrinology; referred to a new college president for both DM and hypothyroidism / Hx thyroid cancer; pt has not received an appt yet. -Seen by [facility] endocrinology Dr. Herndon in Apr 2022. Assessment & Plan (02/25/2023 5:02 AM EST): -h/o papillary thyroid cancer, s/p thyroidectomy -Goal TSH 0.5-1 -Most recent thyroid function test: 01/21/23 TSH 1.75 -Current replacement: levothyroxine 175 mcg daily -Continue current replacement, with caution since pt is losing weight -Previously seeing [facility] endocrinology; referred to a new college president for both DM and hypothyroidism / Hx thyroid cancer; pt has not received an appt yet. -Seen by [facility] endocrinology Dr. Herndon in Apr 2022. Assessment & Plan (11/12/2022 11:16 AM EDT): -h/o papillary thyroid cancer, s/p thyroidectomy -Goal TSH 0.5-1 -Most recent thyroid function test: In 2021, supratherapeutic. Repeating today -Current replacement: levothyroxine 175 mcg daily, decreased from 213 mcg daily after the most recent lab -Continue current replacement, with caution since pt is losing weight -Previously seeing [facility] endocrinology; referred to a new college president for both DM and hypothyroidism / Hx thyroid cancer; pt has not received an appt yet. -Seen by [facility] endocrinology Dr. Herndon recently. Assessment & Plan (06/11/2022 8:55 AM EDT): -h/o papillary thyroid cancer, s/p thyroidectomy -Goal TSH 0.5-1 -Most recent thyroid function test: 07/28/21 TSH 0.05 -Current replacement: levothyroxine 175 mcg daily, decreased from 213 mcg daily after the most recent lab -Continue current replacement, with caution since pt is losing weight -Previously seeing [facility] endocrinology; referred to a new college president for both DM and hypothyroidism / Hx thyroid cancer; pt has not received an appt yet. -Seen by [facility] endocrinology Dr. Herndon recently. Assessment & Plan (04/01/2022 12:19 PM EST): -h/o papillary thyroid cancer, s/p thyroidectomy -Goal TSH 0.5-1 -Most recent thyroid function test: 07/28/21 TSH 0.05 -Current replacement: levothyroxine 175 mcg daily, decreased from 213 mcg daily after the most recent lab -Continue current replacement, with caution since pt is losing weight -Previously seeing [facility] endocrinology; referred to a new college president for both DM and hypothyroidism / Hx thyroid cancer; pt has not received an appt yet. -Refer to [facility] endocrinology Asthma 11/07/2011 Assessment & Plan (04/29/2023 9:25 [...] disease 11/07/2011 Depression 11/07/2011 Assessment & Plan (09/05/2024 6:23 AM EDT): - Previously on sertraline. Due to prolonged QT-c, lamination spinner recommended to discontinue - Started on mirtazapine 7.5 mg at bedtime in September 2023. She reports her mood has been better and stable. - Continue mirtazapine. Assessment & Plan (10/23/2023 11:47 AM EDT): - Previously on sertraline. Due to prolonged QT-c, lamination spinner recommended to discontinue - Started on mirtazapine 7.5 mg at bedtime in September 2023. She reports her mood has been better and stable. - Continue mirtazapine. Assessment & Plan (08/25/2023 5:58 PM EDT): - Previously on sertraline. Due to prolonged QT-c, lamination spinner recommended to discontinue - Asked our pharmacist to review her medications - will consider adding bupropion, or venlafaxine, or duloexetine (Cymbalta). Assessment & Plan (02/26/2023 12:15 PM EST): - Previously on sertraline. Due to prolonged QT-c, lamination spinner recommended to discontinue - Asked our pharmacist to review her medications Dyslipidemia 11/07/2011 Assessment & Plan (10/08/2024 5:55 AM EDT): - Last lipid profile 08/24/24 TRI; CHOL 128; LDL 62; HDL 53 -continue atorvastatin -continue working on lifestyle modifications Assessment & Plan (08/26/2024 7:49 PM EDT): - Last lipid profile 08/24/24 TRI; CHOL 128; LDL 62; HDL 53 -continue atorvastatin -continue working on lifestyle modifications Assessment & Plan (10/23/2023 11:48 AM EDT): [...] infarction 11/07/2011 Hypertension 11/07/2011 Assessment & Plan (10/08/2024 5:55 AM EDT): -Goal BP < 130/80 per ACC/AHA guideline (Treatment threshold >= 130/80 ) -BP not at goal today -Co-managed with our pharmacist, cardiovascular specialist, and lamination spinner -Continue working on lifestyle modifications -Continue carvedilol 12.5 mg bid -Continue hydralazine 10 mg bid, will check with pharmacist and cardiovascular specialist whether she is still taking it -Continue amlodipine 2.5 mg daily -Continue furosemide 80 mg daily - Treatment Hx: Discontinued amlodipine 5 mg daily due to swelling, Furosemide dose was increased during recent hospitalization for HF, isosorbide was added. Spironolactone (Hx hypokalemia), but discontinued when she moved to [place]. Losartan and chlorthalidone were discontinued in May 2020 due to MARY KATE -Continue checking home BP -Or consider SGLT-2 inhibitor or Entresto (depending on echo / cardiology recommendation). Assessment & Plan (09/05/2024 6:12 AM EDT): -Goal BP < 130/80 per ACC/AHA guideline (Treatment threshold >= 130/80 ) -BP not at goal today -Co-managed with our pharmacist, cardiovascular specialist, and lamination spinner -Continue working on lifestyle modifications -Continue carvedilol 12.5 mg bid -Continue hydralazine 10 mg bid, will check with pharmacist and cardiovascular specialist whether she is still taking it -Continue amlodipine 2.5 mg daily -Continue furosemide 80 mg daily - Treatment Hx: Discontinued amlodipine 5 mg daily due to swelling, Furosemide dose was increased during recent hospitalization for HF, isosorbide was added. Spironolactone (Hx hypokalemia), but discontinued when she moved to [place]. Losartan and chlorthalidone were discontinued in May 2020 due to MARY KATE -Continue checking home BP -Or consider SGLT-2 inhibitor or Entresto (depending on echo / cardiology recommendation). - Follow up in 3 mo or ssoner Assessment & Plan (10/23/2023 7:09 PM EDT): -Goal BP < 140/90 per JNC-8 and < 130/80 per ACC/AHA guideline (Treatment threshold >= 130/80 ) -BP not at goal today -Co-managed with our pharmacist, cardiovascular specialist, and lamination spinner -Continue working on lifestyle modifications -Continue carvedilol 12.5 mg bid -Continue hydralazine 10 mg bid, will check with pharmacist and cardiovascular specialist whether she is still taking it -Continue amlodipine 2.5 mg daily -Continue furosemide 80 mg daily - Treatment Hx: Discontinued amlodipine 5 mg daily due to swelling, Furosemide dose was increased during recent hospitalization for HF, isosorbide was added. Spironolactone (Hx hypokalemia), but discontinued when she moved to [place]. Losartan and chlorthalidone were discontinued in May [...] at goal today -Co-managed with our pharmacist, cardiovascular specialist, and lamination spinner -Continue working on lifestyle modifications -Continue carvedilol 12.5 mg bid -Continue hydralazine -Continue furosemide 80 mg daily - Treatment Hx: Discontinued amlodipine 5 mg daily due to swelling, Furosemide dose was increased during recent hospitalization for HF, isosorbide was added. Spironolactone (Hx hypokalemia), but discontinued when she moved to [place]. Losartan and chlorthalidone were discontinued in May [...] at goal today -Co-managed with our pharmacist, cardiovascular specialist, and lamination spinner -Continue working on lifestyle modifications -Continue metoprolol tartrate 25 mg bid -Discontinued amlodipine 5 mg daily yesterday by cardiovascular specialist due to swelling -started furosemide 40 mg daily Treatment Hx: Previously on spironolactone (Hx hypokalemia), but discontinued when she moved to [place] Losartan and chlorthalidone were discontinued in May [...] at goal today -Co-managed with our pharmacist, cardiovascular specialist, and lamination spinner -Continue working on lifestyle modifications -Continue metoprolol tartrate 25 mg bid -Continue amlodipine 5 mg daily Treatment Hx: Previously on spironolactone (Hx hypokalemia), but discontinued when she moved to [place] Losartan and chlorthalidone were discontinued in May [...] at goal today -Co-managed with our pharmacist, cardiovascular specialist, and lamination spinner -Continue working on lifestyle modifications -Continue metoprolol tartrate 25 mg bid -Continue amlodipine 5 mg daily Treatment Hx: Previously on spironolactone (Hx hypokalemia), but discontinued when she moved to [place] Losartan and chlorthalidone were discontinued in May [...] hypokalemia), but discontinued when [place] moved to [place] Losartan and chlorthalidone were discontinued in May [...] hypokalemia), but discontinued when she moved to [place] Losartan and chlorthalidone were discontinued in May 2020 due to MARY KATE -check home BP -continue holding losartan and chlorthalidone. Consider restarting losartan at lower dose if persistently elevated and no risk for MARY KATE -Or consider SGLT-2 inhibitor or Entresto (depending on echo / cardiology recommendation). Diabetes mellitus, type 2 11/07/2011 Assessment & Plan (10/08/2024 6:13 AM EDT): - A1C 6.4% on 08/24/24, improved from 6.7% on 10/22/23 - last seen by college president, Dr. Herndon in Apr 2022. - Continue basal insulin: Tresiba 13 units qhs - Continue bolus insulin: Novolog 5 units with each meal for now. Consider increasing due to worsening A1C. Patient states she has not been using it much - continue Trajenta - consider GLP-1 agonist - continue diligent glucose monitoring with CGM due to hypo- and hyperglycemic episodes - Previously on metformin, but discontinued due to CKDIII - Previously on SGLT2i / dapagliflozin (Farxiga) which was discontinued due to CKDV/ESRD - Last eye exam: July 2024, proliferative diabetic retinopathy. [facility]. Dr. Blue. - Last foot exam: 08/24/24 High-risk. PAD. Neuropathy. s/p amputation of left big-toe. - Last microalbumin test: 10/31/22 UACR > 2000 - Last lipid profile 08/24/24 TRI; CHOL 128; LDL 62; HDL 53 - Last dental exam: ? Assessment & Plan (09/05/2024 6:22 AM EDT): - A1C 6.4% on 08/24/24, improved from 6.7% on 10/22/23 - last seen by college president, Dr. Herndon in Apr 2022. - Continue basal insulin: Tresiba 13 units qhs - Continue bolus insulin: Novolog 5 units with each meal for now. Consider increasing due to worsening A1C. Patient states she has not been using it much - continue Trajenta - consider GLP-1 agonist - continue diligent glucose monitoring with CGM due to hypo- and hyperglycemic episodes - Previously on metformin, but discontinued due to CKDIII - Previously on SGLT2i / dapagliflozin (Farxiga) which was discontinued due to CKDV/ESRD - Last eye exam: July 2022, proliferative diabetic retinopathy - Last foot exam: 08/24/24 High-risk. PAD. Neuropathy. s/p amputation of left big-toe. - Last microalbumin test: 10/31/22 UACR > 2000 - Last lipid profile 08/24/24 TRI; CHOL 128; LDL 62; HDL 53 - Last dental exam: ? Follow-up in 3 mo Assessment & Plan (10/22/2023 9:52 AM EDT): - A1C 6.7% on 10/22/23 - last seen by college president, Dr. Herndon in Apr 2022. - Continue [...] 08/22/23, has worsened - last seen by college president, Dr. Herndon in Apr 2022. - Continue [...] 6.8% on 07/23/23 - last seen by college president, Dr. Herndon in Apr 2022. - Continue [...] 6.9% on 10/31/22 - last seen by college president, Dr. Herndon in Apr 2022. - Continue [...] 8.8% on 03/29/22 - last seen by college president, Dr. Herndon in Apr 2022. - Continue [...] 8.8% on 03/29/22 - last seen by [facility] college president on 02/20/21. Refer to a new college president for transportation convenience. - Continue basal insulin: [...] 7.8% on 09/25/21 - last seen by [facility] college president on 02/20/21. Refer to a new college president for transportation convenience. - Continue basal insulin: [...] 7.8% on 09/25/21 - last seen by [facility] college president on 02/20/21. Refer to a new college president for transportation convenience. - Continue basal insulin: [...] of toe of right foot 09/26/2023 10/20/2023 Hypercholesteremia 09/26/2023 PAT (paroxysmal atrial tachycardia) 09/26/2023 10/23/2023 Heart failure 09/26/2023 08/24/2024 Atherosclerotic cardiovascular disease 09/26/2023 08/24/2024 Uremia 09/26/2023 10/20/2023 Diarrhea 06/05/2022 10/23/2023 Assessment [...] AM EDT): - pt was referred to in Apr 2022 and still has been [...] Plan (06/11/2022 8:54 AM EDT): Refer to engine specialist Obesity 11/07/2011 03/29/2022 Encounters Date Type Department Care Team Description 12/10/2024 Refill [facility] [address] [facility] [place] [address] Senait Car MD 11/29/2024 Refill [facility] [address] [facility] [place] [place] [address] Senait Car MD Type 2 diabetes mellitus with stage 4 chronic kidney disease, with long-term current use of insulin (CMS/[facility]) 11/25/2024 Orders Only [facility] [address] [facility] [place], [place] [address] Senait Car MD 11/23/2024 Refill [facility] [address] [facility], [place] [address] Senait Car MD 11/20/2024 Refill [facility] [address] [facility], [place] [address] Senait Car MD Type 2 diabetes mellitus with diabetic peripheral angiopathy without gangrene, with long-term current use of insulin (CMS/[facility]) 11/19/2024 [facility] MEDICINE [address] [place] [address] Senait Car MD december11/12/2024 Refill [facility] [address] [facility], [place] [address] Senait Car MD Type 2 diabetes mellitus with diabetic peripheral angiopathy without gangrene, with long-term current use of insulin (CMS/[facility]) 11/11/2024 Refill [facility] [address] [facility], [place] [address] Senait Car MD 11/06/2024 Refill [facility] [address] [place] [address] Senait Car MD Type 2 diabetes mellitus with diabetic peripheral angiopathy without gangrene, with long-term current use of insulin (CMS/[facility]); 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 chronic dialysis, with long-term current use of insulin (CMS/HCC) 11/02/2024 Refill [facility] [address] [facility] [address] Senait Car MD Type 2 diabetes mellitus with stage 4 chronic kidney disease, with long-term current use of insulin ([facility]) 10/30/2024 Refill [facility] [place] [phone] Senait Car MD 10/14/2024 Telephone [facility] [place] [phone] Senait Car MD dme boost 10/13/2024 Telephone [facility] [place] [phone] Senait Car MD Lung screening referal 10/09/2024 Telephone [facility] [place] [phone] Senait Car MD Lab Results 10/08/2024 11:00 AM EDT Office Visit [facility] [phone] Senait Car MD Peripheral arterial occlusive disease ([facility]) (Primary Dx); Ischemic heart disease; Primary hypertension; Pulmonary hypertension ([facility]); Prolonged Q-T interval on ECG; HFrEF (heart failure with reduced ejection fraction) ([facility]); Dyslipidemia; Hearing loss of left ear, unspecified hearing loss type; Type 2 diabetes mellitus with chronic kidney disease on chronic dialysis, with long-term current use of insulin ([facility]); Diabetic ulcer of toe of right foot associated with type 2 diabetes mellitus, with bone involvement without evidence of necrosis ([facility]); Postoperative hypothyroidism; ESRD on dialysis ([facility]); Anemia due to stage 5 chronic kidney disease, not on chronic dialysis ([facility]); Asthma-COPD overlap syndrome ([facility]); History of smoking 25-50 pack years; Type 2 diabetes mellitus with diabetic peripheral angiopathy without gangrene, with long-term current use of insulin ([facility]); Colon cancer screening; Screening for colon cancer; Weight loss 10/08/2024 Results Follow-Up [facility] [phone] Senait Car MD POCT glucose manually resulted, TSH with Reflex to Free T4 10/08/2024 Abstract [facility] [place] Kimberly [phone] Senait Car MD 10/08/2024 Orders Only GENERIC EXTERNAL DATA DEPARTMENT Provider, Generic External Data 10/08/2024 Telephone [facility] [address] [place] [address] Coreen Mondragon [place] cologuard 10/08/2024 Travel 10/07/2024 Telephone [facility] [address] [place] [address] Senait Car MD chart prep 09/24/2024 Refill [facility] [address] [place] [address] Senait Car MD Type 2 diabetes mellitus with stage 4 chronic kidney disease, with long-term current use of insulin ([facility]) 09/21/2024 Refill [facility] [address] [place] [address] Senait Car MD 09/17/2024 Orders Only [facility] External Provider, [facility] 09/17/2024 Telephone [facility] [address] [place] [address] Senait Car MD DME shoes from Last 3 Months Immunizations Immunization Administration Dates Next Due Hep A, Adult [...] antigen) 11/26/2012,02/05/2012 Pfizer Covid-19 Vaccine 12+ 11/29/2020, Pfizer Covid-19 Vaccine 12+ Bivalent 03/29/2022 Pneumococcal [...] Answer Date Recorded Patient Health Questionnaire-9 Score 11 08/24/2024 Patient Health Questionnaire-9 Score 11 08/24/2024 Last PHQ-9: Questionnaire Data Not on file 0 08/24/2024 Housing Stability Answer Date Recorded What is your housing situation today? I have marion vásquez 10/08/[address] you li ve. Do you have problems with any of the following? None of the above 10/08/2024 Food Insecurity Answer Date Recorded Within the past 12 months, y ou worried that your food would run out before you got money to buy more: Never True 10/08/2024 Within the past 12 months,th e food you bought just didn't last and you didn't have enough money to get more: Never True Transportation Answer Date Recorded In the past 12 months, has l ack of transportation kept you from medical appts, meetings, work or from getting things needed for daily living? No 10/08/2024 Utilities Answer Date Recorded In the past 12 months, has t he electric, gas, oil or water company threatened to shut off services in your home? No 10/08/2024 Depression Answer Date Recorded Patient Health Questionnaire-2 Score 3 08/24/2024 Internet Access Answer Date Recorded Internet Access Q1 Yes 10/08/2024 Internet Access Q2 Not on file 10/08/2024 Comments Unknown Sex and Gender Information Value Date Recorded Sex Assigned at Female 01/15/2022 10:22 AM EDT Legal Sex Female 10:22 AM EDT Gender Identity Female 01/15/2022 10:22 AM EDT Sexual Orientation Straight 01/15/2022 10 :22 AM EDT Last Filed Vital Signs Vital Sign Reading Time Taken Comments Blood Pressure 112/59 10/08/2024 10:41 AM EDT Pulse 76 10/08/2024 10:41 AM EDT Temperature 36.3 C (97.3 F) 10/08/2024 10:41 AM EDT Respiratory Rate 12 10/08/2024 10:41 AM EDT Oxygen Saturation 99% 08/24/2024 1:25 PM EDT Inhaled Oxygen Concentration - - Weight 61.5 kg (135 lb 9.6 oz) 10/08/2024 10:41 AM EDT Height 152.4 cm (5') 10/08/2024 10:41 AM EDT Body Mass Index 26.48 10/08/2024 10:41 AM EDT Plan of Treatment Health Maintenance Due Date Last Done Comments CT Colonography 1955 Colonoscopy 1955 Colorectal Cancer Screening 1955 FIT DNA/Cologuard 1955 FIT 1955 FOBT 1955 Sigmoidoscopy 1955 Hepatitis C Screening 1972 Lung Cancer Screening 2004 RSV Patients and Patients Aged 60 years or older (1 - Risk 60-74 years 1-dose series) 2014 COVID-19 Vaccine ( season) 2024 03/29/2022, 11/29/2020, 11/08/2020 Influenza Vaccine (#1) 2024 , 01/24/2022, 01/14/2020, Additional history exists Depression Monitoring 02/23/2025 08/24/2024, 025 Diabetes: Hemoglobin A1C 02/23/2025 025, 10/22/2023, 09/05/2023, Additional history exists Lipid Panel 08/24/2025 08/24/2024, 08/17, 10/31/2022, Additional history exists Diabetes: Foot Exam 08/25/2025 08/25/2024, 08/24/2024, 08/24/2024, Additional history exists Alcohol/Substance Use Screening 10/08/2025 10/08/2024 SDOH Screening 10/08/2025 10/08/2024 Tobacco Screening 10/08/2025 10/08/2024 Mammogram 01/16/2026 01/17/2024, 09/16, 06/15/2021, Additional history exists Eye Exam 08/05/2026 08/05/2024, 08/04/2022 DTaP/Tdap/Td Vaccines (4 - Td or Tdap) [...] patient's age to complete this topic Meningococcal B Vaccine Aged Out No l onger eligible based on patient's age to complete [...] smokeless, etc) Tobacco Use No Gustabo Fernandez, PharmSpeedy Procedures Procedure Name Priority Date/Time Associated Diagnosis Comments CREATININE, SERUM Routine 10/08/2024 11: 22 AM EDT CBC WITH AUTO DIFFERENTIAL Routine 10/08/2024 11:22 AM EDT CBC WITH AUTO DIFFERENTIAL Routine 10/08/2024 11:22 AM EDT TSH W/REFLEX TO FT4 Routine 10/08/2024 1 1:22 AM EDT Postoperative hypothyroidism CBC WITH AUTO DIFFERENTIAL Routine 10/08/2024 11:22 AM EDT Dark stools POCT GLUCOSE Routine 10/08/2024 10:43 AM EDT Type 2 diabetes mellitus with diabetic peripheral angiopathy without gangrene, with long-term current use of insulin ([facility]) STRESS TEST WITH MYOCARDIAL PERFUSION Routine 09/17/2024 9:51 AM EDT LIPID PANEL WITH REFLEX TO DIRECT LDL Routine 08/24/2024 2:38 PM EDT Dyslipidemia POCT GLYCATED HEMOGLOBIN, TOTAL Routine 08/24/2024 1:30 PM EDT Type 2 diabetes mellitus with diabetic peripheral angiopathy without gangrene, with long-term current use of insulin ([facility]) DIABETES EYE EXAM Routine 08/05/2024 BI MAMMOGRAM SCREENING TOMOSYNTHESIS BILATERAL Routine 01/17/2024 3:00 PM EDT from Last 3 Months or Most Recently Relevant to Health Maintenance Results * TSH with Reflex to Free T4 (10/08/2024 11:22 AM EDT) TSH reflex Free T4 0.49 0.32 - 4.0 uIU/mL [facility] Blood 10/08/2024 11:2 2 AM EDT 10/08/2024 1:07 PM EDT us Senait Car MD LAB BLOOD ORDERABLES Final Resul t [facility] [address] [place] [phone] * (ABNORMAL) Creatinine, Serum (10/08/2024 11:22 AM EDT) Pathologist [facility] Creatinine, Serum 2.84(H) 0.5 - 1.4 mg/dL [facility] Estimated Glomerular Filt Rate 16 [facility] Comment:Chronic Kidney Disea se: Estimated GFR < 60 mL/min/1.83w6Oktdjn Kidney Disease: Estimated GFR < 15 mL/min/1.73m2 10/08/2024 11:2 2 AM EDT 10/08/2024 1:07 PM EDT us Generic External Data Provider LAB BLOOD ORDERAB LES Final Result Performing Organization Address City/State/[facility] Co de Phone Number [facility] [address] [place] [phone] * (ABNORMAL) CBC auto differential (10/08/2024 11:22 AM EDT) Only the most recent of3 resultswithin the time period is included. Pathologist [facility] White Blood Count 9.5 4.8 - 10.8 X10*3/uL [facility] Red Blood Count 3.78(L) 4.20 - 5.50 X10*6/uL [facility] Hemoglobin 10.5(L) 12.0 - 16.0 g/dl [facility] Hematocrit 34.2(L) 37.0 - 47.0 % [facility] Mean Corpuscular Volume 90.5 80.0 - 98.0 fL [facility] Mean Corpuscular Hemoglobin 27.8 27.0 - 33.0 pg [facility] Mean Corpuscular HGB Conc 30.7(L) 31.0 - 35.0 g/dl [facility] Red Cell Distribution Width 15.5 11.0 - 16.0 % [facility] Platelet Count 171 160 - 400 X10*3/uL [facility] Mean Platelet Volume 11.3 9.4 - 12.3 fL [facility] Neutrophils Percent Auto 74.8(H) 45 - 73 % [facility] Imm Gran Pct Auto 0.3 0.0 - 0.4 % [facility] Lymphocytes Percent Auto 12.7(L) 20 - 40 % [facility] Monocytes Percent Auto 9.2 2 - 11 % [facility] Eosinophils Percent Auto 2.3 0 - 4 % [facility] Basophils Percent Auto 0.7 0 - 2 % [facility] NRBC Pct Auto 0.0 0.0 - 0.2 /100WBC [facility] Neutrophils Absolute Auto 7.1 2.0 - 8.3 x10*3/uL [facility] Imm Gran Abs Auto 0.03 0.00 - 0.03 X10*3/uL [facility] Lymphocytes Absolute Auto 1.2 1.2 - 4.9 X10*3/uL [facility] Monocytes Absolute Auto 0.9 0.1 - 1.2 X10*3/uL [facility] Eosinophils Absolute Auto 0.2 0.0 - 0.4 X10*3/uL [facility] Basophils Absolute Auto 0.1 0.0 - 0.2 X10*3/uL [facility] NRBC Abs Auto 0.000 0.0 - 0.012 X10*3/uL [facility] 10/08/2024 11:2 2 AM EDT 10/08/2024 1:07 PM EDT us Generic External Data Provider LAB BLOOD ORDERAB LES Final Result [facility] [address] [place] [phone] * POCT glucose manually resulted (10/08/2024 10:43 AM EDT) [facility] Glucose Blood, POC 194 60 - 200 mg/dL QC Media Lot # [id number] Lot# Expiration Date ,[id number] Blood Capillary blood specimen / Unknown 10/08/2024 10:43 AM EDT us Senait Car MD POINT OF CARE TEST ENTER/EDIT OR DERABLES Final Result * Stress test with myocardial perfusion (09/17/2024 9:51 AM EDT) 09/17/2024 9:51 AM EDT Narrative [facility] - 09/24/2024 4:46 PM EDT [place] [address] Nuclear Medicine Report Signed Patient: Sarah Jones MR#: [id number] : 1955 Acct:[id number] Age/Sex: 69 / F ADM Date: 09/17/24 Loc: [facility] Attending Dr: Grace AVILES Ordering Physician: Grace Allen Date of Service: 09/17/24 Procedure(s): NM cardiolite stress test Accession Number(s): [id number] cc: Grace Allen; Senait Car MD Lexiscan Myocardial perfusion study Indication: Congestive heart failure to evaluate for myocardial ischemia Technique: The patient was brought in for a Lexiscan perfusion study on September 17, 2024 and was injected 0.4 mg of Lexiscan intravenously. Within a minute of this injection 25 mCi of sestamibi was given intravenously. Images were obtained using the SPECT gamma camera interlaced with the gating device. Images were obtained in supine position. Resting perfusion study was performed on September 24, 2024. Patient was administered 25 mCi of sestamibi intravenously at rest. Images were then obtained in supine position. Images obtained without without CT attenuation. Total DLP 65 mGy-cm. Images were processed with the software and compared side to side in short axis, horizontal long axis and vertical long axis views. Findings: The stress perfusion study showed nonattenuated images show some thinning of the basal lateral as well as mildly reduced uptake in the basal inferoseptal and basal inferolateral as well as basal inferior wall of the LV myocardium. Attenuated corrected images show mildly reduced uptake in the distal anterior moderately reduced uptake in the apex of the LV myocardium. There is suggestion of left ventricle hypertrophy. The gated study shows reduced LV systolic function with calculated LVEF of 35%. LV cavity is mildly to moderately dilated in size. The gated study shows diffusely reduced wall thickening and contraction of segments. Resting study shows no change in perfusion pattern compared to stress perfusion study. Gating at rest reveals diffusely reduced wall motion with ejection fraction at 39%. The findings are consistent with no clear reversible defect suggestive of ischemia. NM/NM cardiolite stress test Impression: 1. Myocardial perfusion imaging study shows no myocardial ischemia 2. Gated LVEF is 35% with stress and 39% with rest 3. Transient ischemic dilatation not present but LV cavity is dilated Nondiagnostic changes on EKG. Electronically signed by: Satinder Christopher MD 09/24/2024 04:43 PM EDT RP Dictated By: Satinder Christopher MD Signed By: <Electronically signed by Satinder Christopher MD in OV> 09/24/24 1643 DD/ 0951 TD/TT: 09/24/24 1100 Special Order Jeweler: Procedure Note Donotuseinterpreter, Image - 09/24/2024 [place] [address] Nuclear Medicine Report Signed Patient: Sarah Jones [facility]#: [id number] : 5Acct:[id number] Age/Sex: 69 / FADM Date: 09/17/24 Loc: [facility] Attending Dr: Grace AVILES Ordering Physician: Grace Allen Date of Service: 09/17/24 Procedure(s): CT cardiolite stress test Accession Number(s): [id number] cc: Grace Allen; Senait Car MD Lexisckarli Myocardial perfusion study Indication: Congestive heart failure to evaluate for myocardial ischemia Technique: The patient was brought in for a Lexiscan perfusion study on September 17, 2024 and was injected 0.4 mg of Lexiscan intravenously. Within a minute of this injection 25 mCi of sestamibi was given intravenously. Images were obtained using the SPECT gamma camera interlaced with the gating device. Images were obtained in supine position. Resting perfusion study was performed on September 24, 2024. Patient was administered 25 mCi of sestamibi intravenously at rest. Images were then obtained in supine position. Images obtained without without CT attenuation. Total DLP 65 mGy-cm. Images were processed with the software and compared side to side in short axis, horizontal long axis and vertical long axis views. Findings: The stress perfusion study showed nonattenuated images show some thinning of the basal lateral as well as mildly reduced uptake in the basal inferoseptal and basal inferolateral as well as basal inferior wall of the LV myocardium. Attenuated corrected images show mildly reduced uptake in the distal anterior moderately reduced uptake in the apex of the LV myocardium. There is suggestion of left ventricle hypertrophy. The gated study shows reduced LV systolic function with calculated LVEF of 35%. LV cavity is mildly to moderately dilated in size. The gated study shows diffusely reduced wall thickening and contraction of segments. Resting study shows no change in perfusion pattern compared to stress perfusion study. Gating at rest reveals diffusely reduced wall motion with ejection fraction at 39%. The findings are consistent with no clear reversible defect suggestive of ischemia. NM/NM cardiolite stress test Impression: 1. Myocardial perfusion imaging study shows no myocardial ischemia 2. Gated LVEF is 35% with stress and 39% with rest 3. Transient ischemic dilatation not present but LV cavity is dilated Nondiagnostic changes on EKG. Electronically signed by: Satinder Christopher MD 09/24/2024 04:43 PM EDT Dictated By: Satinder Christopher MD Signed By: <Electronically signed by Satinder Christopher MD in OV> 09/24/24 1643 DD/ 0951 TD/TT: 09/24/24 1100 Special Order Jeweler: us [facility] External Provider CV STRE SS PROCEDURES Edited Result - Final [facility] [address] [place], [place] [phone] * Lipid Panel with Reflex to Direct LDL (08/24/2024 2:38 PM EDT) Triglycerides 65 <150 mg/dL [facility] Comment:Desirable Triglyceri de: less than 150 mg/dLBorderline High Triglyceride 150-199 mg/dLHigh Triglyceride: 200-499 mg/dLVery High Triglyceride: greater than or equal to 5OO mg/dL Cholesterol 128 <200 mg/dL [facility] Comment:Desirable Cholestero l: less than 200 mg/dLBorderline High Cholesterol: 200-239 mg/dLHigh Cholesterol: greater than 239 mg/dL LDL Cholesterol Calculated 62 <100 mg/dL [facility] Comment:Desirable LDL: less than 100 mg/dLNear Optimal/Above Optimal LDL: 110- 129 mg/dLBorderline High LDL: 130-159 mg/dLHigh LDL: 160-189 mg/dLVery High LDL: greater than or equal to 190 mg/dL HDL Cholesterol 53 >40 mg/dL [facility] Comment:Desirable HDL: great er than 40 mg/dL Note: This HDL assay may give artificially low results in patients with liver disease. Blood 08/24/2024 2:38 PM EDT 08/24/2024 4:02 PM EDT Senait Car MD LAB BLOOD ORDERABLES Final Resul t [facility] [address] [place] [phone] * (ABNORMAL) POCT HGB A1C (08/24/2024 1:30 PM EDT) Hemoglobin A1C 6.4(A) 4.0 - 6.0 % QC Media Lot # [id number] Lot# Expiration Date Blood 08/24/2024 1:30 PM EDT Senait Car MD POINT OF CARE TEST ENTER/EDIT OR DERABLES Final Result * Hm Diabetes Eye Exam (08/05/2024) Eye Exam Normal Normal 08/05/2024 Jesus Negrete MD HEALTH MAINTENANCE Final Result * BI Mammogram Screening Tomosynthesis Bilateral (01/17/2024 3:00 PM EDT) Anatomical Region Laterality Modality Breast Bilateral Mammography 01/17/2024 3:00 PM EDT Narrative 01/27/2024 7:44 PM EST [facility] [address] [place] [address] Dr. Gonzalez, ROBERT [address] Mammography Report Signed Patient: Sarah Jones MR#: [id number] : 1955 Acct:[id number] Age/Sex: 68 / F ADM Date: 01/17/24 Loc: HO.MAMMO Attending Dr: Senait Car MD Ordering Physician: Senait Car MD Results: 2Benign F indings Date of Service: 01/17/24 Follow Up: 1 Year From Orig inal Mammogram Procedure(s): MM tomosynthesis screening BI Accession Number(s): [id number] cc: Senait Car MD EXAMINATION: MM SCREENING [...] 01/27/24 194 DD/ 1500 TD/TT: 01/17/24 1515 Special Order Jeweler: Procedure Note Donotuseinterpreter, Image - 01/27/2024 [facility] [address] Gonzalez, ROBERT [address] Mammography Report Signed Patient: Sarah Jones NMR#: [id number] : 5Acct:[id number] Age/Sex: 68 / FADM Date: 01/17/24 Loc: HO.MAMMO Attending Dr: Senait Car MD Ordering Physician: Senait Car MDResults: 2Benign F indings Date of Service: 01/17/24Follow Up: 1 Year From Orig ina Mammogram Procedure(s): MM tomosynthesis screening BI Accession Number(s): [id number] cc: Senait Car MD EXAMINATION: MM SCREENING [...] OV> 01/27/24 194 DD/ 1500 TD/TT: 01/17/24 7365 Special Order Jeweler: Senait Car MD IMG BI PROCEDURES Edited Result - Final from Last 3 Months or Most Recently Relevant to Health Maintenance Insurance [facility] [employer] (HMO D-SNP) MARYELLEN SPENCER [id number] Care Teams Showroom Sales Consultant Relationship Specialty Start Date End Date Senait Car MD [address] [place] [address] PCP - General Family Medicine 02/22/20 Gustabo Fernandez, HarshaD [address] [place] [address] Pharmacist Internal Medicine 07/16/22 [facility] 09/14/23
--- OUTSIDE RECORDS SUMMARY | 2024-12-10 18:09 | XMS_ITS | Encounter Summary ---
Author Organization [employer] Address [address] [place] [address] [address] [place] [address] Care Team Providers Care Sales Assistant Name Role Phone Senait Pal MD Primary Care Provider Gustabo Fernandez PharmD Unavailable [phone] Encounter Details Date Type Department Care Team ([facility] st Contact Info) Description 08/09/2022 [facility] Health Information Management [address] [place], [place] [phone] Senait Pal MD [address] [place], [place] [phone] Social History Tobacco Use Types Packs/Day Years [...] on filedocumented in this encounter Care Teams Sales Assistant Relationship Specialty Start Date End Date Senait Pal MD [address] [place] [address] PCP - General Family Medicine 02/22/20 Gustabo Fernandez, HarshaD [address] [place] [address] Pharmacist Internal Medicine 07/16/22 [facility] 09/14/23 documented as of this encounter
--- OUTSIDE RECORDS SUMMARY | 2024-12-10 18:09 | XMS_ITS | Encounter Summary ---
Author Organization [employer] Address [address] [facility] [address] [place] [address] Care Team Providers Care Line Helper Name Role Phone Senait Pal MD Primary Care Provider [phone] Gustabo Fernandez PharmD Unavailable [phone] Encounter Details Date Type Department Care Team ([facility] st Contact Info) Description 02/26/2023 Orders Only [facility] [address] [place], [place] [phone] Senait Pal MD [address] [place], [place] [phone] Social History Tobacco Use Types Packs/Day Years [...] EST) Vitamin D, 25-OH, D2 <4 ng/mL [facility] Comment:This test was reagan cerda and its analytical performancecharacteristics have been determined by [employer] [place], [place]. It hasnot been cleared or approved by the U.S. Food and DrugAdministration. This assay has been validated pursuantto the CLIA regulations and is used for clinicalpurposes.THIS TEST WAS PERFORMED AT:[employer] [place] [address]HZFBCJQCONNIE AVILA MD,PHD Vitamin D, 25-OH, D3 47 ng/mL [facility] Comment:This test was devamao ped and its analytical performancecharacteristics have been determined by [employer] [place], [place]. It hasnot been cleared or approved by the U.S. Food and DrugAdministration. This assay has been validated pursuantto the CLIA regulations and is used for clinicalpurposes. Vitamin D, 25-OH, Total 47 30 - 100 ng/mL [facility] Comment:Vitamin D, 25-Hydrox y reports concentrations [...] = 30 ng/mL.For additional information, please refer [email or web address].[email or web address]/[email or web address](This link is being provided for informational/educational purposes only.) 02/26/2023 2:25 PM EST 02/26/2023 2:25 PM EST us Generic External Data Provider LAB BLOOD ORDERAB LES Final Result [facility] [address] [place] [phone] * (ABNORMAL) Calcium, Ionized (02/26/2023 2:25 PM EST) Calcium, Ionized 3.6(A) 4.7 - 5.5 mg/dL [facility] Comment:THIS TEST WAS PERFOR MED AT:[facility] [place] [id number] RAHMAN MD 02/26/2023 2:25 PM EST 02/26/2023 2:25 PM EST us Generic External Data Provider LAB BLOOD ORDERAB LES Final Result Performing Organization Address [facility] Co de Phone Number [facility] [address] [place] [phone] * (ABNORMAL) PTH, Intact Without Calcium (02/26/2023 2:25 PM EST) Parathyroid Hormone, Intact 135.0(H) 8.7 - 77.1 pg/mL [facility] 02/26/2023 2:25 PM EST 02/26/2023 2:25 PM EST us Generic External Data Provider LAB BLOOD ORDERAB LES Final Result Performing Organization Address [facility] de Phone Number [facility] [address] [place] [phone] documented in this encounter Visit Diagnoses Not on filedocumented in this encounter Additional Health Concerns Assessment Noted Time PHQ-9 Depression Total Score: 7 11/01/19 23 11:04 AM EDT documented as of this encounter Care Teams Line Helper Relationship Specialty Start Date End Date Senait Pal MD [address] [place] [phone] PCP - General Family Medicine 02/22/20 Gustabo Fernandez, HarshaD [address] [place] [address] Pharmacist Internal Medicine 07/16/22 [facility] 09/14/23 documented as of this encounter
--- OUTSIDE RECORDS SUMMARY | 2024-12-10 18:09 | XMS_ITS | Encounter Summary ---
Author Organization [employer] Address [address] 7t [place] [address] Care Team Providers Care Insurance Coder Name Role Phone Senait Pal MD Primary Care Provider Gustabo Fernandez PharmD Unavailable [phone] Encounter Details Date Type Department Care Team ([facility] st Contact Info) Description 10/08/2024 Results Follow-Up [facility]INE 230 [place], [place] [phone] Senait Pal MD 230 [place], [place] [phone] POCT glucose manually resulted, TSH with Reflex to Free T4 Social History Tobacco Use Types Packs/Day Years [...] Assessment Noted Time PHQ-9 Depression Total Score: 11 025 2:18 PM EDT documented as of this encounter Care Teams Insurance Coder Relationship Specialty Start Date End Date Senait Pal MD 230 [place] [address] PCP - General Family Medicine 02/22/20 Gustabo Fernandez PharmD 230 [place] [address] Pharmacist Internal Medicine 07/16/22 [facility] [place] [facility] [place] 09/14/23 documented as of this encounter
--- OUTSIDE RECORDS SUMMARY | 2024-12-10 18:10 | XMS_ITS | Encounter Summary ---
Author Organization [employer] Address [address] 7t [place] [address] Care Team Providers Care Upholstery Cleaner Name Role Phone Senait Pal MD Primary Care Provider [phone] Gustabo Fernandez PharmD Unavailable [phone] Reason for Visit * Reason Onset Date Comments Nurse Triage 09/26/2023 Encounter Details Date Type Department Care Team ([facility] st Contact Info) Description 09/26/2023 Telephone [facility] 230 [place], [place] [phone] Senait Pal MD 230 [place], [place] [phone] Nurse Triage Social History Tobacco Use Types [...] symptoms worsen to be seen in the [facility]. Pt agreeable to plan and stated unders tanding. Forwarding to PCP and Rahda Burciaga for FYI * Telephone Encounter - Brielle Henry LPN - 09/26/2023 9:34 AM EDT Triage call returned to patient who reports increased anxiety and crying and outburst while at homeand while in the community. Patient reports that a medication was discontinued by ( patient confirms who is [facility] and not her [facility]CP ? )and that since that time she is having issues. Name of medication unknown, believes it was approx one month ago. No documentation identified at time of call. Patient denies SI/HI but reports that she is screaming out and then slapping her own face when agitated. Disposition reviewed and no pCP appts available. ASK/E.Patrica OPERATOR [employer] on 09/30/23 @330pm following dialysis. [facility] clinicians explained to patient who was [...] documented as of this encounter Care Teams Upholstery Cleaner Relationship Specialty Start Date End Date Senait Pal MD 230 [place] [address] PCP - General Family Medicine 02/22/20 Gustabo Fernandez, Agnes 230 [place] [address] Pharmacist Internal Medicine 07/16/[address] [facility] 09/14/23 documented as of this encounter
--- OUTSIDE RECORDS SUMMARY | 2024-12-10 18:10 | XMS_ITS | Encounter Summary ---
Author Organization [employer] Address [address] [place] [address] 7t [place] [address] Care Team Providers Care Therapist Radiation Name Role Phone Senait Pal MD Primary Care Provider [phone] Gustabo Fernandez PharmD Unavailable [phone] Reason for Referral * Imaging (Routine) - Closed Specialty Diagnoses / Procedures Referred By Contac t Referred To Contact Diagnoses Enlarged lymph node in neck Procedures US guided biopsy lymph node superficial Senait Pal MD 230 [place] [address] Phone: tel: fax: [address] Phone: tel: fax: Referral ID Status Reason Start Date Expiration Date Visits Re quested Visits Authorized [id number] Closed 07/03/2022 12/30/2022 1 1 Encounter Details Date Type Department Care Team (Late st Contact Info) Description 07/03/2022 Orders Only [facility] MEDICINE 230 [place], [place] [phone] Senait Pal MD 230 [place], [place] [phone] Enlarged lymph node in neck (Primary Dx) [...] Primary documented in this encounter Care Teams Therapist Radiation Relationship Specialty Start Date End Date Senait Pal MD 230 [place] [address] PCP - General Family Medicine 02/22/20 Gustabo Fernandez, HarshaD 230 [place] [address] Pharmacist Internal Medicine 07/16/22 [facility] 09/14/23 documented as of this encounter
--- OUTSIDE RECORDS SUMMARY | 2024-12-10 18:10 | XMS_ITS | Encounter Summary ---
Author Organization [employer] Address [address] 7t [place] [address] Care Team Providers Care Customs Entry Writer Name Role Phone Senait Pal MD Primary Care Provider [phone] Gustabo Fernandez PharmD Unavailable [phone] Reason for Visit * Reason Comments Med Refill Encounter Details Date Type Department Care Team ([facility] st Contact Info) Description 03/23/2024 Refill [facility]INE 230 [place], [place] [phone] Senait Pal MD 230 [place], [place] [phone] Social History Tobacco Use Types Packs/Day Years [...] documented as of this encounter Care Teams Customs Entry Writer Relationship Specialty Start Date End Date Senait Pal MD [address] [place] [address] PCP - General Family Medicine 02/22/20 Gustabo Fernandez, PharmD [address] [place], [place] [address]T[place] [address] Pharmacist Internal Medicine 07/16/22 [facility] 09/14/23 documented as of this encounter
--- OUTSIDE RECORDS SUMMARY | 2024-12-10 18:10 | XMS_ITS | Encounter Summary ---
Author Organization [employer] Address [address] 7t [place] [address] Care Team Providers Care Planer Operator Name Role Phone Senait Pal MD Primary Care Provider [phone] Gustabo Fernandez PharmD Unavailable [phone] Reason for Visit * Reason Onset Date Comments Durable Medical Equipment 10/01/2023 Encounter Details Date Type Department Care Team (Late st Contact Info) Description 10/01/2023 Telephone [facility] MEDICINE 230 [place], [place] [phone] Senait Pal MD 230 [place], [place] [phone] Durable Medical Equipment Social History Tobacco Use [...] - 10/01/2023 12:24 PM EDT Tc from [facility] calling to request DME raised toilet seat transfer tub bench Please fax to [phone] documented in this encounter Plan of Treatment Not on file documented as of this encounter Goals Goal Patient Goal Type Associated Problems Recent Progress Patient-Stated? Author Blood Pressure < 140/90 Blood Pressure 112/59( 025 10:41 AM EDT) No Gustabo Fernandez, Agnes Quit using tobacco (cigarettes, smokeless, etc) Tobacco Use No Gustabo Fernandez PharmD documented as of this encounter Visit Diagnoses Not on filedocumented in this encounter Additional Health Concerns Assessment Noted Time PHQ-9 Depression Total Score: 7 11/01/19 23 11:04 AM EDT documented as of this encounter Care Teams Planer Operator Relationship Specialty Start Date End Date Senait Pal MD [address] [place] [address] PCP - General Family Medicine 02/22/20 Gustabo Fernandez PharmD [address] [place] [address] Pharmacist Internal Medicine 07/16/22 [facility] 09/14/23 documented as of this encounter
--- OUTSIDE RECORDS SUMMARY | 2024-12-10 18:10 | XMS_ITS | Encounter Summary ---
Author Organization [employer] Address [address] [facility] 7t [place] [address] Care Team Providers Care Car Clerk Pullman Name Role Phone Senait Pal MD Primary Care Provider [phone] Gustabo Fernandez PharmD Unavailable [phone] Reason for Referral * Consultation (STAT) - Closed Specialty Diagnoses / Procedures Referred By Contac t Referred To Contact Neurology Diagnoses Hearing loss of left ear, unspecified hearing loss type Meningioma (CMS/HCC) Senait Pal MD 230 [place], [place] Phone: tel: fax: Bianca Lockett MD [address] [place] [address] [place] [address] Phone: tel: fax: Referral ID Status Reason Start Date Expiration Date V isits Requested Visits Authorized [id number] Closed Specialty Services Required 01/15/2024 01/14/2025 1 1 Encounter Details Date Type Department Care Team (Late st Contact Info) Description 01/15/2024 Orders Only [facility] MEDICINE [address] [place] [address] Senait Pal MD 230 [place], [place] Hearing loss of left ear, unspecified [...] documented as of this encounter Care Teams Car Clerk Pullman Relationship Specialty Start Date End Date Senait Pal MD 230 [place] [address] PCP - General Family Medicine 02/22/20 Gustabo Fernandez PharmD 230 [place] [address] Pharmacist Internal Medicine 07/16/22 [facility] 09/14/23 documented as of this encounter
--- OUTSIDE RECORDS SUMMARY | 2024-12-10 18:10 | XMS_ITS | Encounter Summary ---
Author Organization [employer] Address [address] 7t [place] [address] Care Team Providers Care Green End Man Name Role Phone Senait Pal MD Primary Care Provider [phone] Gustabo Fernandez PharmD Unavailable [phone] Reason for Visit * Reason Onset Date Comments Hospital Follow-up 09/24/2023 Encounter Details Date Type Department Care Team ([facility] st Contact Info) Description 09/24/2023 Telephone [facility] MEDICINE 230 [place], [place] [phone] Senait Pal MD 230 [place], [place] [phone] Hospital Follow-up Social History Tobacco Use Types [...] documented as of this encounter Care Teams Green End Man Relationship Specialty Start Date End Date Senait Pal MD 230 [place] [address] PCP - General Family Medicine 02/22/20 Gustabo Fernandez, HarshaD 230 [place] [address] Pharmacist Internal Medicine 07/16/22 [facility] 09/14/23 documented as of this encounter
--- OUTSIDE RECORDS SUMMARY | 2024-12-10 18:10 | XMS_ITS | Encounter Summary ---
Author Organization [employer] Address [address] 7t [place] [address] Care Team Providers Care Media Arts Professor Name Role Phone Senait Pal MD Primary Care Provider [phone] Gustabo Fernandez PharmD Unavailable [phone] Encounter Details Date Type Department Care Team ([facility] st Contact Info) Description 09/16/2023 Orders Only [facility] MEDICINE 230 [place], [place] [phone] Senait Pal MD 230 [place], [place] [phone] Open wound of right great toe, initial [...] documented as of this encounter Care Teams Media Arts Professor Relationship Specialty Start Date End Date Senait Pal MD 230 [place] [address] PCP - General Family Medicine 02/22/20 Gustabo Fernandez, PharmD 230 [place] [address] Pharmacist Internal Medicine 07/16/22 [facility] 09/14/23 documented as of this encounter
--- OUTSIDE RECORDS SUMMARY | 2024-12-10 18:10 | XMS_ITS | Encounter Summary ---
Author Organization [employer] Address [address] 7t [place] [address] Care Team Providers Care Household Appliance Repairer Name Role Phone Senait Pal MD Primary Care Provider [phone] Gustabo Fernandez PharmD Unavailable [phone] Encounter Details Date Type Department Care Team ([facility] st Contact Info) Description 10/30/2023 Orders Only [facility] MEDICINE 230 [place], [place] [phone] Senait Pal MD 230 [place] [address] Social History Tobacco Use Types Packs/Day Years [...] 025 10:41 AM EDT) No Gustabo Fernandez PharmSpeedy Quit using tobacco (cigarettes, smokeless, etc) Tobacco Use No Gustabo Fernandez PharmD documented as of this encounter Visit Diagnoses Not on filedocumented in this encounter Additional Health Concerns Assessment Noted Time PHQ-9 Depression Total Score: 7 11/01/19 23 11:04 AM EDT documented as of this encounter Care Teams Household Appliance Repairer Relationship Specialty Start Date End Date Senait Pal MD 230 [place] [address] PCP - General Family Medicine 02/22/20 Gustabo Fernandez PharmD 230 [place] [address] Pharmacist Internal Medicine 07/16/22 [facility] 09/14/23 documented as of this encounter
--- OUTSIDE RECORDS SUMMARY | 2024-12-10 18:10 | XMS_ITS | Encounter Summary ---
Author Organization [employer] Address [address] [facility] 7t [place] [address] Care Team Providers Care Concrete Engineer Name Role Phone Senait Pal MD Primary Care Provider Gustabo Fernandez PharmD Unavailable [phone] Reason for Referral * Imaging (Routine) - Closed Specialty Diagnoses / Procedures Referred By Contac t Referred To Contact Diagnoses Smoking greater than [address] Lung Screening Low dose Senait Pal MD [address] [place] [address] Phone: tel: fax: [facility] MRI and CT Scan [address] [place] [address] Phone: tel: fax: Referral ID Status Reason Start Date Expiration Date Visits Re quested Visits Authorized [id number] Closed 04/01/2022 04/01/2023 1 1 Encounter Details Date Type Department Care Team (Late st Contact Info) Description 04/01/2022 Orders Only [facility] MEDICINE [address] [place] [address] [phone] Senait Pal MD 230 [place], [place] [phone] Smoking greater than 20 pack years (Primary [...] colon documented in this encounter Care Teams Concrete Engineer Relationship Specialty Start Date End Date Senait Pal MD 230 [place] [address] PCP - General Family Medicine 02/22/20 Gustabo Fernandez, HarshaD 230 [place] [address] Pharmacist Internal Medicine 07/16/[address] [facility] 09/14/23 documented as of this encounter
--- OUTSIDE RECORDS SUMMARY | 2024-12-10 18:10 | XMS_ITS | Encounter Summary ---
Author Organization [employer] Address [address] 7t [place] [address] Care Team Providers Care Account Specialist Name Role Phone Senait Pal MD Primary Care Provider [phone] Gustabo Fernandez PharmD Unavailable Encounter Details Date Type Department Care Team (Late st Contact Info) Description 09/24/2023 Orders Only [facility]ICINE 230 [place], [place] [phone] Senait Pal MD 230 [place], [place] [phone] Type 2 diabetes mellitus with diabetic peripheral angiopathy without gangrene, with long-term current use of insulin ([facility]) (Primary Dx); 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 chronic dialysis, with long-term current use of insulin ([facility]); Pain in both lower extremities Social History [...] of insulin ([facility])- Primary 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 chronic dialysis, with long-term current use of insulin ([facility]) Pain in both lower extremities documented in this encounter Additional Health Concerns Assessment Noted Time PHQ-9 Depression Total Score: 7 11/01/19 23 11:04 AM EDT documented as of this encounter Care Teams Account Specialist Relationship Specialty Start Date End Date Senait Pal MD [address] [place] [address] PCP - General Family Medicine 02/22/20 Gustabo Fernandez PharmD [address] [place] [address] Pharmacist Internal Medicine 07/16/22 [facility] 09/14/23 documented as of this encounter
--- OUTSIDE RECORDS SUMMARY | 2024-12-10 18:10 | XMS_ITS | Encounter Summary ---
Author Organization [employer] Address [address] [facility] 7t [place] [address] Care Team Providers Care Compliance Director Name Role Phone Senait Pal MD Primary Care Provider [phone] Gustabo Fernandez PharmD Unavailable [phone] Encounter Details Date Type Department Care Team ([facility] st Contact Info) Description 04/26/2022 Orders Only [facility]ICINE 230 [place], [place] [phone] Senait Pal MD 230 [place], [place] [phone] Tobacco user (Primary Dx) Social History Tobacco [...] disorder documented in this encounter Care Teams Compliance Director Relationship Specialty Start Date End Date Senait Pal MD 230 [place], [place] [phone] PCP - General Family Medicine 02/22/20 Gustabo Fernandez, HarshaD [address] [place] [address] Pharmacist Internal Medicine 07/16/22 [facility] 09/14/23 documented as of this encounter
--- OUTSIDE RECORDS SUMMARY | 2024-12-10 18:10 | XMS_ITS | Encounter Summary ---
Author Organization [employer] Address [address] [facility] 7t [place] [address] Care Team Providers Care Hole Digger Operator Name Role Phone Senait Pal MD Primary Care Provider [phone] Gustabo Fernandez PharmD Unavailable [phone] Reason for Visit * Reason Comments Med Refill Encounter Details Date Type Department Care Team ([facility] st Contact Info) Description 12/10/2024 Refill [facility] MEDICINE 230 [place], [place] [phone] Senait Pal MD 230 [place] [address] Social History Tobacco Use Types Packs/Day Years [...] documented as of this encounter Care Teams Hole Digger Operator Relationship Specialty Start Date End Date Senait Pal MD [address] [place] [address] PCP - General Family Medicine 02/22/20 Gustabo Fernandez PharmD [address] [place] [address] Pharmacist Internal Medicine 07/16/22 [facility] 09/14/23 documented as of this encounter
--- OUTSIDE RECORDS SUMMARY | 2024-12-10 18:10 | XMS_ITS | Encounter Summary ---
Author Organization [employer] Address [address] 7t [place] [address] Care Team Providers Care Manager Mobility Name Role Phone Senait Pal MD Primary Care Provider [phone] Gustabo Fernandez PharmD Unavailable [phone] Encounter Details Date Type Department Care Team ([facility] st Contact Info) Description 04/17/2024 Orders Only [facility] MEDICINE 230 [place], [place] [phone] Senait Pal MD 230 [place], [place] [phone] Dark stools (Primary Dx); Diarrhea, unspecified type; [...] Type Priority Associated Diagnoses Orde r Schedule OCCULT BLOOD, DIAGNOSTIC Lab Routine Dark stools [...] Procedure Name Priority Date/Time Associated Diagnosis Comments CBC WITH AUTO DIFFERENTIAL Routine 10/08/2024 11:22 AM EDT Dark stools TSH W/REFLEX TO FT4 Routine 08/24/2024 2 :38 PM EDT Diarrhea, unspecified type Postoperative hypothyroidism documented in this encounter Results * (ABNORMAL) CBC auto differential (10/08/2024 11:22 AM EDT) White Blood Count 9.6 4.8 - 10.8 X10*3/uL [facility] Red Blood Count 3.82(L) 4.20 - 5.50 X10*6/uL [facility] Hemoglobin 10.5(L) 12.0 - 16.0 g/dl [facility] Hematocrit 34.7(L) 37.0 - 47.0 % [facility] Mean Corpuscular Volume 90.8 80.0 - 98.0 fL [facility] Mean Corpuscular Hemoglobin 27.5 27.0 - 33.0 pg [facility] Mean Corpuscular HGB Conc 30.3(L) 31.0 - 35.0 g/dl [facility] Red Cell Distribution Width 15.7 11.0 - 16.0 % [facility] Platelet Count 158(L) 160 - 400 X10*3/uL [facility] Mean Platelet Volume 10.9 9.4 - 12.3 fL [facility] Neutrophils Percent Auto 74.1(H) 45 - 73 % [facility] Imm Gran Pct Auto 0.4 0.0 - 0.4 % [facility] Lymphocytes Percent Auto 12.5(L) 20 - 40 % [facility] Monocytes Percent Auto 9.8 2 - 11 % [facility] Eosinophils Percent Auto 2.5 0 - 4 % [facility] Basophils Percent Auto 0.7 0 - 2 % [facility] NRBC Pct Auto 0.0 0.0 - 0.2 /100WBC [facility] Neutrophils Absolute Auto 7.1 2.0 - 8.3 x10*3/uL [facility] Imm Gran Abs Auto 0.04(H) 0.00 - 0.03 X10*3/uL [facility] Lymphocytes Absolute Auto 1.2 1.2 - 4.9 X10*3/uL [facility] Monocytes Absolute Auto 0.9 0.1 - 1.2 X10*3/uL [facility] Eosinophils Absolute Auto 0.2 0.0 - 0.4 X10*3/uL [facility] Basophils Absolute Auto 0.1 0.0 - 0.2 X10*3/uL [facility] NRBC Abs Auto 0.000 0.0 - 0.012 X10*3/uL [facility] Blood Venous blood specimen / Unknown 10/08/2024 11:22 AM EDT 10/08/2024 1:07 PM EDT Senait Pal MD LAB BLOOD ORDERABLES Final Resul t Performing Organization Address [facility]/ZIP Co de Phone Number [facility] [address] [place] [phone] * (ABNORMAL) TSH with Reflex to Free T4 (08/24/2024 2:38 PM EDT) TSH reflex Free T4 7.15(H) 0.32 - 4.0 uIU/mL [facility] Blood 08/24/2024 2:38 PM EDT 08/24/2024 4:02 PM EDT Senait Pal MD LAB BLOOD ORDERABLES Final Resul t Performing Organization Address [facility] Co de Phone Number [facility] [address] [place] [phone] documented in this encounter Visit Diagnoses Diagnosis Dark stools- Primary Nonspecific abnormal finding in stool contents Diarrhea, unspecified type Postoperative hypothyroidism Postsurgical hypothyroidism documented in this encounter Additional Health Concerns Assessment Noted Time PHQ-9 Depression Total Score: 7 11/01/19 23 11:04 AM EDT documented as of this encounter Care Teams Manager Mobility Relationship Specialty Start Date End Date Senait Pal MD 230 [place] [address] PCP - General Family Medicine 02/22/20 Gustabo Fernandez, PharmD 230 [place] [address] Pharmacist Internal Medicine 07/16/22 [facility] 09/14/23 documented as of this encounter
--- OUTSIDE RECORDS SUMMARY | 2024-12-10 18:10 | XMS_ITS | Encounter Summary ---
Author Organization [employer] Address [address] 7t [place] [address] Care Team Providers Care University Administrator Name Role Phone Senait Pal MD Primary Care Provider [phone] Gustabo Fernandez PharmD Unavailable [phone] Reason for Visit * Reason Comments Med Refill Encounter Details Date Type Department Care Team ([facility] st Contact Info) Description 10/09/2023 Refill [facility] MEDICINE 230 [place], [place] [phone] Senait Pal MD 230 [place], [place] [phone] Type 2 diabetes mellitus with stage 4 chronic kidney disease, with long-term current use of insulin ([facility]) Social History Tobacco Use Types [...] disease, with long-term current use of insulin ([facility]) documented in this encounter Additional Health Concerns Assessment Noted Time PHQ-9 Depression Total Score: 7 11/01/19 23 11:04 AM EDT documented as of this encounter Care Teams University Administrator Relationship Specialty Start Date End Date Senait Pal MD 230 [place] [address] PCP - General Family Medicine 02/22/20 Gustabo Fernandez PharmD [address] [place] [address] Pharmacist Internal Medicine 07/16/[address] [facility] 09/14/23 documented as of this encounter
--- OUTSIDE RECORDS SUMMARY | 2024-12-10 18:10 | XMS_ITS | Encounter Summary ---
Author Organization [employer] Address [address] [place] [address] 7t [place] [address] Care Team Providers Care Seat Coverer Name Role Phone Senait Pal MD Primary Care Provider [phone] Gustabo Fernandez PharmD Unavailable [phone] Encounter Details Date Type Department Care Team (Late st Contact Info) Description 06/11/2022 Abstract [facility] MEDICINE [address] [place], [place] [phone] Senait Pal MD [address] [place], [place] [phone] Social History Tobacco Use Types Packs/Day Years [...] on filedocumented in this encounter Care Teams Seat Coverer Relationship Specialty Start Date End Date Senait Pal MD [address] [place], [place] [phone] PCP - General Family Medicine 02/22/20 Gustabo Fernandez, PharmD [address] [place] [address] Pharmacist Internal Medicine 07/16/22 [facility] 09/14/23 documented as of this encounter
== END 2024-12-10 13:51 | disposition home or self-care (01) ==
LOC: HO.HKA 13:37
PROVIDERS: PCP Family Medicine; Visit Provider Internal Medicine Hypertension Specialist
DX: N18.6 End stage renal disease (principal); Z99.2 Dependence on renal dialysis
CPT/HCPCS: 99024

== ENCOUNTER → 2024-12-10 13:36 | Outpatient (BNVA) | payer OTHER, SELFPAY | PROVIDERS: PCP Family Medicine; Visit Provider Internal Medicine Hypertension Specialist | DX: N18.6 End stage renal disease (principal); Z99.2 Dependence on renal dialysis | CPT/HCPCS: 99212 ==

== ENCOUNTER → 2024-12-16 23:59 | Outpatient (BNV) | payer OTHER, SELFPAY | PROVIDERS: PCP Family Medicine; Visit Provider Internal Medicine Hypertension Specialist | DX: N18.6 End stage renal disease (principal) | CPT/HCPCS: 90962 ==

== ENCOUNTER 2025-01-08 13:33 | Outpatient (AMB) | payer OTHER, SELFPAY ==
--- NOTE | 2025-01-08 13:33 | HO.NEPHOV ---
Vital Signs 01/08/25 13:34 Height 5 ft Weight 137 lb BMI 26.8 BP 130/60 Blood Pressure Location Rt brachial Position Sitting Intake Visit Reasons: 1 mo f/u conf. 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) Hypothyroidism associated with surgical procedure (~2008) Uncontrolled type 2 diabetes mellitus with hyperglycemia (~1986) Pneumonitis ARDS (adult respiratory distress syndrome) Neuropathy Asthma-COPD overlap syndrome Anemia HTN (hypertension) Hypercholesteremia Surgical History History of thyroidectomy History of back surgery History of 2 sections History of angioplasty History of amputation of left great toe Family History Mother Hypertension Diabetes Father AA (alcohol abuse) Social History Household Members: Family Housing: Apartment Do you presently have 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 or other home services: Yes (GROUP BURNER MACHINE) Alcohol intake: never 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 Tobacco Use Status: Former Tobacco user Years Smoked: 45 Advance Directives Date on File: 09/13/20 service: No Current occupational status: disabled Physical Exam Vital Signs: Last Vital Signs BP 130/60 01/08/25 13:34 BMI result Body Mass Index 26.8 Results Reviewed Nephrology Results: Hgb, (12.0-16.0) 10.5 g/dl L 10/08/24 WBC, (4.8-10.8) 9.5 X10*3/uL 10/08/24 Plt Count, (160-400) 171 X10*3/uL 10/08/24 Creatinine, (0.5-1.4) 2.84 mg/dL H 10/08/24 Renal US 08/22/20 Assessment & Plan Assessment & Plan (1) ESRD needing dialysis: Code(s): N18.6 - End stage renal disease; Z99.2 - Dependence on renal dialysis Category: Medical Plan - The patient is a 69-year-old female presenting for a monthly follow-up regarding end-stage renal disease treatment. - End-stage renal disease: On peritoneal dialysis, no complications reported. - Wound infection: On antibiotics, improving. - Lab results: Hemoglobin 11.1, iron satisfactory, calcium low. - Medication adherence: Taking amlodipine, calcitriol, potassium. Labs reviewed No changes today Coding Level of Care Code Global (39307) Diagnoses ESRD needing dialysis N18.6; Z99.2
[2025-01-08 13:34] VITALS: BP 130/60; BMI 26.8
--- OUTSIDE RECORDS SUMMARY | 2025-01-08 15:33 | XMS_ITS | Clinical Summary ---
Demographics Address [address] [place] [address] [address] [place] [address] Home Phone Preferred Language es Marital Status Unknown Presybeterian Affiliation Unknown Race White Ethnic Group Unknown Author Organization [facility] Address [address] [place] [address] Phone Care Team Providers Care Engagement Engineer Name Role Phone Senait Pal MD Primary Care Provider [phone] Allergies Active Allergy Reactions Criticality Noted Date [...] 49 Years) Discontinued 10/31/2022, 02/26/[address] [place] [id number] [facility] ([id number]) MARYELLEN SPENCER [phone] [facility] ([id number]) MARYELLEN SPENCER [phone] Care Teams Engagement Engineer Relationship Specialty Start Date End Date Senait Pal MD PCP - General 03/28/20
--- OUTSIDE RECORDS SUMMARY | 2025-01-08 15:33 | XMS_ITS | Data Portability ---
Author Organization [employer], [facility] Address [address] [place] [address] Care Team Providers Care Aircraft Load Controller Name Role Phone HIM CCA OTHER Assessment [...] PCP. The patient agreed with this plan. [email or web address] Not available 11/01/2021 19:13:25 08/29/2022 08/29/2022 As noted, we were called to see this patient regarding concerns of cellulitis of the left lower leg Evaluation in the field was performed by my transportation dispatch manager colleague, as noted above, I provided real-time [...] serum or plasma 06/22/ 2024 06/22/2 024 [facility], [address] [place] [address], [id number] 4 20:52:48 hemoglobin + hematocrit, blood 2023 024 [facility], [address] [place] [address], [id number] 4 20:51:45 Referral None recorded. Procedures None recorded. Surgeries None recorded. Imaging None recorded. Medication Orders sodium chloride 0.9 % intravenous solution 2023 024 [facility], [address] [place] [address], [id number], 4 20:51:12 doxycycline hyclate 100 mg capsule 2022 023 [email or web address] Not available 3 15:43:21 doxycycline hyclate [address] [facility], [address] [place] [address], [id number], 3 15:51:20 Patient TargetsNo targets recorded. Patient InstructionsNo instructions recorded. Reason for Referral None Reported. Results Created Date Observation Date Name Description Value Unit Range Abnormal Flag Note LastModifiedBy Organization Detail LastModifiedTime 09/07/19 24 09/07/2023 BMP, serum or plasm a BUN 124 Not Available Main - [facility] [address], [id number] 09/07/2023 20:50:35 09/07/19 24 09/07/2023 BMP, serum or plasm a Ca 0.52 Not Available Main - [facility] [address], [id number] 09/07/2023 20:50:35 09/07/19 24 09/07/2023 BMP, serum or plasm a CI- 103 Not Available Main - [facility] [address], [address] 09/07/2023 20:50:35 09/07/19 24 09/07/2023 BMP, serum or plasm a CRE 8.1 Not Available Main - [facility] [address], [id number] 09/07/2023 20:50:35 09/07/19 24 09/07/2023 BMP, serum or plasm a GLU 267 Not Available Main - [facility] [address], [address] 09/07/2023 20:50:35 09/07/19 24 09/07/2023 BMP, serum or plasm a K+ 3.0 Not Available Main - [facility] [address], [address] 09/07/2023 20:50:35 09/07/19 24 09/07/2023 BMP, serum or plasm a Na+ 140 Not Available Main - [facility] [address], [address] [place] [address] 09/07/2023 20:50:35 09/07/19 24 09/07/2023 BMP, serum or plasm a tCO2 18 Not Available Main - [facility] [address], [address] 09/07/2023 20:50:35 09/07/19 24 09/07/2023 hemog lobin + hemat ocrit , blood Hemoglobin 9.5 Not Available Main - [facility] [address] [place] [address], [id number] 09/07/2023 20:51:28 09/07/19 24 09/07/2023 hemog lobin + hemat ocrit , blood Hematocrit 28 Not Available [facility] [address] [place] [address], [id number] 09/07/2023 20:51:28 Result Notes None recorded. Medical [...] Address Organization Details Last Updated DateTime 3 10313.7 6 g 16 /min 99 % 99 % 97.8 [degF] 75 /min 151/71 mm[Hg] Not Available [employer] 3 15:40:42 Date Recorded Heart rate Oxygen saturation Oxygen saturation in Arterial blood by Pulse oximetry Respiratory rate Body temperature Systolic And Diastolic Provider Name and Address Organization Details Last Updated DateTime 4 67 /min 100 % 100 % 16 /min 97.5 [degF] 113/60 mm[Hg] Not Available [employer] 4 20:36:59 Date Recorded Heart rate Oxygen saturation Oxygen saturation in Arterial blood by Pulse oximetry Respiratory rate Body temperature Systolic And Diastolic Provider Name and Address Organization Details Last Updated DateTime 2 84 /min 99 % 99 % 18 /min 97.8 [degF] 137/65 mm[Hg] Not Available [employer] 2 19:10:22 Social History None recorded. Functional Status None recorded. Mental Status None recorded. Family History Nothing Reported. Medical History No medical history recorded. Gynecological HistoryNo gynecological history recorded. Obstetrics History GPAL:G 0 P 0 0 0 0 Past Encounters Encounter ID Performer Location Encounter Start Date Encounter Closed Date Diagnosis/Indication Diagnosis SNOMED-CT Code Diagnosis ICD10 Code Diagnosis IMO Codes Diagnosis Note [id number] Kermit Tomas MD Main - [facility] [address] [place] [id number] 11/01/2021 19:10:19 11/01/2021 19:13:43 [id number] Noe Cortes MD Main - [facility] [address] [place] [address] [id number] 08/29/2022 15:40:31 08/30/2022 10:51:33 Cellulitis of lower limb 665820194 L03.119 [id number] CEDRICK BELLO MD Main - [facility] [address] [place] [id number] 09/07/2023 19:32:58 09/08/2023 16:45:57 Rhtom-tr-fkwqtut renal failure 046162177 N17.9 Evaluation in the field was performed by my transportation dispatch manager colleague, as noted above, I provided real-time [...] RA, T 98.3 Exam : Mildly decreased mortgage coordinator on the left hand but no [...] Camacho Member ID Guarantor Name 07/17/[address] [facility] - DOS PRIOR TO 2022 - DUAL ELIGIBLE (MEDICARE REPLACEMENT/AD VANTAGE - HMO) Sarah García [id number] Sarah García 07/17/2024 1 [facility] - DOS ON OR AFTER 2022 - DUAL ELIGIBLE - CUSTODIAL OPTIONS AND ONE CARE (MEDICARE REPLACEMENT/AD VANTAGE - HMO) Sarah García [id number] Sarah García Notes Date Note Type Note Provider Name and Address Organization Details Recorded Time 11/01/2021 text/html ROS as noted in the HPI HPI: Alergies-sandra inhibtors: cough and cilostazol: cough. Member reported fever and chills with weakness x 3 days, stated tested negative for Covid with home test. Questions UTI, but asymptomatic other than the above. Australian speaker. Member is 66 yo, has thyroid cancer, DM, HTN, Ischemic cardiac disease, DM and Asthma. Denied having respiratory or GI/ sx. ................... ................... ................... ................... ................... ................... ................... ........ CRC Nursing Assessment: Comments: CRC RN DID NOT NEED FURTHER INFO TO PROCESS VISIT ................... ................... ................... ................... ................... ................... ................... ........ Dewatering Filtering Supervisor Note: Pt states she feels tired and [...] ........ Disposition: Fulfilled Kermit Tomas MD [address] [facility],[address], [place], [address], CHARLIE DICKERSON 11/01/2021 19:13:41 08/29/2022 text/html HPI: [...] ................... ................... ................... ................... ................... ................... ........ Dewatering Filtering Supervisor Note From Victor Manuel Gilmore: Pt CO [...] ........ Disposition: Fulfilled Noe Cortes MD [address] [facility],[address], [place], [address], [employer] 08/29/2022 16:20:09 09/07/2023 text/html ROS as noted in the [facility] CRC Nurse Triage Notes (George Gil): Chief Complaints: Syncope/Dizziness/L ightheadedness, Weakness/Lethargy PMH: Amputation, Diabetes, COPD/Asthma, Hypertension, Heart Disease Allergies: Unknown Comments: Playback Operator verified the member's name//address and phone number. [...] emergency treatment if needed -Socorro Gil, RN Dewatering Filtering Supervisor POC Test Results from Tamra Smith iSTA Chem8+ (20:37:25) Na: 140 mEq/L K: 3.0 mEq/L Cl: 103 mEq/L iCa: 0.52 mmol/L TCO2: 18 mmol/L Glu: 267 mg/dL BUN: 124 mg/dL Crea: 8.1 mg/dL Hct: 28 % Hb: 9.5 g/dL A ................... ................... ................... ................... ................... ................... ................... ........ Dewatering Filtering Supervisor Note From Tamra Smith: [facility] Dewatering Filtering Supervisor Kelsie Smith SC6 dispatched to a red [...] and SOB on exertion, and had weak mortgage coordinator strength in her left hand. Blood sugar 324. Pt used 13U tresiba nightly, and had not started any new meds recently. She was instructed by her Assurance Associate in the past week to DC her lasix, and stated she performed lab work in the past week through her Nephrology office. [facility] consulted; #20 IV placed in her left AC, BMP acquired, and she was given 500 mL NS. BUN and creatinine were critically high; [facility] was consulted again, and pt was informed that she must be transported to the ED immediately. Pt agreed and 911 was called. [facility] arrived and transported her to [place] ED. ................... ................... ................... ................... ................... ................... ................... ........ Disposition: Jesse BELLO MD [address] [place] [address],[address], [place], [address], [facility] [employer] [facility] 09/07/2023 21:09:47 OBGyn Episode No OBEpisode recorded.
--- OUTSIDE RECORDS SUMMARY | 2025-01-08 15:33 | XMS_ITS | Clinical Summary ---
Author Organization [facility] Address [address] [address] Phone Care Team Providers Care Railroad Conductor Name Role Phone Unavailable Primary Care Provider [...] 08/14/2019 INFLUENZA VACCINE (#1) 2024 COVID-19 VACCINE ( - 2024-2 6 season) 2024 RSV VACCINE (1 - 1-dose [...] topic Medical Devices Not on file [place] [address] [place] [address] [place] [address] [facility] Additional Source Comments The information contained in this document represents components of the legal health record. It is not the complete legal health record.[facility]
--- OUTSIDE RECORDS SUMMARY | 2025-01-08 15:33 | XMS_ITS | Encounter Summary ---
Demographics Address [address] [place] [address] Home Phone Preferred Language es Marital Status Unknown Moravian Affiliation Unknown Race White Ethnic Group Unknown Author Organization [facility] Address [address] [place] [address] Phone Care Team Providers Care Water Commissioner Name Role Phone Senait Pal MD Primary Care Provider [phone] Encounter Details Date Type Department Care Team (Late st Contact Info) Description 06/08/2020 Orders Only [facility] [address] [place] [address] Provider, MD Jesus Social History [...] on filedocumented in this encounter Care Teams Water Commissioner Relationship Specialty Start Date End Date Senait Pal MD PCP - General 03/28/20 documented as of this encounter
== END 2025-01-08 13:44 | disposition home or self-care (01) ==
LOC: HO.HKA 13:34
PROVIDERS: PCP Family Medicine; Visit Provider Internal Medicine Hypertension Specialist
DX: N18.6 End stage renal disease (principal); Z99.2 Dependence on renal dialysis
CPT/HCPCS: 99024

== ENCOUNTER → 2025-01-08 13:33 | Outpatient (BNVA) | payer OTHER, SELFPAY | PROVIDERS: PCP Family Medicine; Visit Provider Internal Medicine Hypertension Specialist | DX: N18.6 End stage renal disease (principal); Z99.2 Dependence on renal dialysis | CPT/HCPCS: 99212 ==

== ENCOUNTER → 2025-01-16 23:59 | Outpatient (BNV) | payer OTHER, SELFPAY | PROVIDERS: PCP Family Medicine; Visit Provider Internal Medicine Hypertension Specialist | DX: N18.6 End stage renal disease (principal) | CPT/HCPCS: 90962 ==

== ENCOUNTER 2025-02-09 12:52 | Outpatient (AMB) | payer OTHER, SELFPAY ==
[2025-02-09 13:09] VITALS: BP 106/50; PULSE 74; O2SAT 98; BMI 26.9
--- NOTE | 2025-02-09 13:09 | HO.NEPHOV ---
Vital Signs 02/09/25 13:09 Height 5 ft Weight 138 lb BMI 26.9 BP 106/50 L Blood Pressure Location Lt brachial Position Sitting Pulse 74 Pulse Source Pulse Oximeter Pulse Oximetry (%) 98 Oxygen Delivery Method Room Air Intake Visit Reasons: 1 mo f/u Service Advisor Required: No Accompanied by: Grand Child Allergies ALLYSSA Inhibitors (ALLYSSA INHIBITORS) Allergy (Mild, Verified 02/09/25 13:12) COUGH cilostazol (CILOSTAZOL) Allergy (Mild, Verified 02/09/25 13:12) COUGH [facility] Medical History (Updated 01/04/25 @ 15:57 by Dolores Smith PA-C) Osteomyelitis CHF exacerbation Anemia CKD (chronic kidney disease) stage 5, GFR less than 15 ml/min Hypocalcemia Nicotine dependence, cigarettes, uncomplicated Atherosclerotic cardiovascular disease Thyroid cancer (~2008) 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) Hypothyroidism associated with surgical procedure (~2008) Uncontrolled type 2 diabetes mellitus with hyperglycemia (~1986) Pneumonitis ARDS (adult respiratory distress syndrome) Neuropathy Asthma-COPD overlap syndrome Anemia HTN (hypertension) Hypercholesteremia Surgical History History of thyroidectomy History of back surgery History of 2 sections History of angioplasty History of amputation of left great toe Family History Mother Hypertension Diabetes Father AA (alcohol abuse) Social History Household Members: Family Housing: Apartment Do you presently have 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 or other home services: Yes ([employer]Y) Alcohol intake: never 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 Tobacco Use Status: Former Tobacco user Years Smoked: 45 Advance Directives Date on File: 09/13/20 service: No Current occupational status: disabled Physical Exam Vital Signs: Last Vital Signs Pulse 74 02/09/25 13:09 BP 106/50 L 02/09/25 13:09 Pulse Ox 98 02/09/25 13:09 Oxygen Delivery Method Room Air 02/09/25 13:09 BMI result Body Mass Index 26.9 Results Reviewed Nephrology Results: Hgb, (12.0-16.0) 10.5 g/dl L 10/08/24 WBC, (4.8-10.8) 9.5 X10*3/uL 10/08/24 Plt Count, (160-400) 171 X10*3/uL 10/08/24 Creatinine, (0.5-1.4) 2.84 mg/dL H 10/08/24 Renal US 08/22/20 Assessment & Plan Assessment & Plan (1) ESRD needing dialysis: Code(s): N18.6 - End stage renal disease; Z99.2 - Dependence on renal dialysis Category: Medical Plan see dialysis EMR Coding Level of Care Code Global (33031) Diagnoses ESRD needing dialysis N18.6; Z99.2
--- OUTSIDE RECORDS SUMMARY | 2025-02-09 16:31 | XMS_ITS | Encounter Summary ---
Author Organization [email or web address] Address [address] [place] [address] Care Team Providers Care School Nurse Name Role Phone Senait Pal MD Primary Care Provider [phone] Gustabo Fernandez PharmD Unavailable [phone] Reason for Visit * Reason Onset Date Comments Nurse Triage 09/26/2023 Encounter Details Date Type Department Care Team ([facility] st Contact Info) Description 09/26/2023 Telephone [facility] MEDICINE [address] [place], [place] [phone] Senait Pal MD [address] [place], [place] [phone] Nurse Triage Social History Tobacco Use Types [...] symptoms worsen to be seen in the [facility]. Pt agreeable to plan and stated unders tanding. Forwarding to PCP and Radha Burciaga for FYI * Telephone Encounter - Brielle Henry LPN - 09/26/2023 9:34 AM EDT Triage call returned to patient who reports increased anxiety and crying and outburst while at homeand while in the community. Patient reports that a medication was discontinued by ( patient confirms who is [facility] and not her PCP ? )and that since that time she is having issues. Name of medication unknown, believes it was approx one month ago. No documentation identified at time of call. Patient denies SI/HI but reports that she is screaming out and then slapping her own face when agitated. Disposition reviewed and no pCP appts available. ASK/E.Patrica KETTLE SKIMMER on 09/30/23 @330pm following dialysis. [facility] clinicians explained to patient who was not [...] documented as of this encounter Care Teams School Nurse Relationship Specialty Start Date End Date Senait Pal MD [address] [place] [address] PCP - General Family Medicine 02/22/20 Gustabo Fernandez, Agnes [address] [place] [address] Pharmacist Internal Medicine 07/16/22 [facility] 09/14/23 documented as of this encounter
--- OUTSIDE RECORDS SUMMARY | 2025-02-09 16:31 | XMS_ITS | Encounter Summary ---
Author Organization [employer] Address [address] [place] [address] 7t [place] [address] Care Team Providers Care Microsoft Architect Name Role Phone Senait Pal MD Primary Care Provider [phone] Gustabo Fernandez PharmD Unavailable [phone] Encounter Details Date Type Department Care Team (Late st Contact Info) Description 06/11/2022 Abstract [facility] MEDICINE [address] [place], [place] [phone] Senait Pal MD [address] [place], [place] [phone] Social History Tobacco Use Types Packs/Day Years [...] on filedocumented in this encounter Care Teams Microsoft Architect Relationship Specialty Start Date End Date Senait Pal MD [address] [place], [place] [phone] PCP - General Family Medicine 02/22/20 Gustabo Fernandez, PharmD [address] [place] [address] Pharmacist Internal Medicine 07/16/22 [facility] 09/14/23 documented as of this encounter
--- OUTSIDE RECORDS SUMMARY | 2025-02-09 16:31 | XMS_ITS | Encounter Summary ---
Author Organization [email or web address] Address [address] [facility] 7t [place] [address] Care Team Providers Care Mortgage Loan Coordinator Name Role Phone Senait Pal MD Primary Care Provider [phone] Gustabo Fernandez PharmD Unavailable [phone] Reason for Referral * Imaging (Routine) - Closed Specialty Diagnoses / Procedures Referred By Contac t Referred To Contact Diagnoses Smoking greater than [address] Lung Screening Low dose Senait Pal MD [address] [place] [address] Phone: tel: fax: [facility] Scan [address] [place] [address] Phone: tel: fax: Referral ID Status Reason Start Date Expiration Date Visits Re quested Visits Authorized [id number] Closed 04/01/2022 04/01/2023 1 1 Encounter Details Date Type Department Care Team (Late st Contact Info) Description 04/01/2022 Orders Only [facility] MEDICINE [address] [place] [phone] Senait Pal MD [address] [place], [place] [phone] Smoking greater than 20 pack years (Primary [...] colon documented in this encounter Care Teams Mortgage Loan Coordinator Relationship Specialty Start Date End Date Senait Pal MD [address] [place] [address] PCP - General Family Medicine 02/22/20 Gustabo Fernandez, HarshaD [address] [place] [address] Pharmacist Internal Medicine 07/16/22 [facility] 09/14/23 documented as of this encounter
--- OUTSIDE RECORDS SUMMARY | 2025-02-09 16:31 | XMS_ITS | Encounter Summary ---
Author Organization [employer] Address [address] [place] [address] Care Team Providers Care Recenterer Name Role Phone Senait Pal MD Primary Care Provider [phone] Gustabo Fernandez PharmD Unavailable [phone] Reason for Visit * Reason Comments Med Refill Encounter Details Date Type Department Care Team ([facility] st Contact Info) Description 01/31/2023 Refill [facility] MEDICINE [address] [place], [place] [phone] Senait Pal MD [address] [place], [place] [phone] Moderate episode of recurrent major depressive disorder [...] episode of recurrent major depressive disorder (CMS/HCC) (HCC) documented in this encounter Additional Health Concerns Assessment Noted Time PHQ-9 Depression Total Score: 7 11/01/19 23 11:04 AM EDT documented as of this encounter Care Teams Recenterer Relationship Specialty Start Date End Date Senait Pal MD [address] [place] [address] PCP - General Family Medicine 02/22/20 Gustabo Fernandez, PharmD [address] [place] [address] Pharmacist Internal Medicine 07/16/22 [facility] 09/14/23 documented as of this encounter
--- OUTSIDE RECORDS SUMMARY | 2025-02-09 16:31 | XMS_ITS | Clinical Summary ---
Demographics Address [address] [place] [address] [address] [place] [address] Home Phone Preferred Language es Marital Status Unknown Presybeterian Affiliation Unknown Race White Ethnic Group Unknown Author Organization [facility] Address [address] [place] [address] Phone Care Team Providers Care Registered Nurse Nursery Name Role Phone Senait Pal MD Primary Care Provider [phone] Allergies Active Allergy Reactions Criticality Noted Date [...] Years Used Date Smoking Tobacco: Former Cigarettes 0 Q uit: 03/18/2015 Smokeless Tobacco: Never Tobacco [...] 49 Years) Discontinued 10/31/2022, 02/26/[address] [place] [id number] [facility] ([id number]) MARYELLEN SPENCER [id number] [facility] ([id number]) MARYELLEN SPENCER [id number] Care Teams Registered Nurse Nursery Relationship Specialty Start Date End Date Senait Pal MD PCP - General 03/28/20
--- OUTSIDE RECORDS SUMMARY | 2025-02-09 16:31 | XMS_ITS | Clinical Summary ---
Author Organization [facility] Address [address] [address] Phone Care Team Providers Care Fish And Wildlife Warden Name Role Phone Unavailable Primary Care Provider [...] topic Medical Devices Not on file [place] [address] [place] [address] [place] [address] [facility] Additional Source Comments The information contained in this document represents components of the legal health record. It is not the complete legal health record.[facility]
--- OUTSIDE RECORDS SUMMARY | 2025-02-09 16:31 | XMS_ITS | Encounter Summary ---
Author Organization [employer] Address [address] [facility] 7t [place] [address] Care Team Providers Care Oracle Application Architect Name Role Phone Senait Pal MD Primary Care Provider [phone] Gustabo Fernandez PharmD Unavailable [phone] Reason for Visit * Reason Onset Date Comments Referral 04/05/2022 Encounter Details Date Type Department Care Team ([facility] st Contact Info) Description 04/05/2022 Telephone [facility] MEDICINE [address] [place], [place] [phone] Senait Pal MD [address] [place], [place] [phone] Referral Social History Tobacco Use Types Packs/Day [...] for aallergist specialist Please contact pt at [phone] documented in this encounter Plan of Treatment Not on file documented as of this encounter Visit Diagnoses Not on filedocumented in this encounter Care Teams Oracle Application Architect Relationship Specialty Start Date End Date Senait Pal MD 230 [place] [address] PCP - General Family Medicine 02/22/20 Gustabo Fernandez, HarshaD [address] [place] [phone] Pharmacist Internal Medicine 07/16/22 [facility] 09/14/23 documented as of this encounter
--- OUTSIDE RECORDS SUMMARY | 2025-02-09 16:31 | XMS_ITS | Encounter Summary ---
Author Organization [employer] Address [address] [facility] 7t [place] [address] Care Team Providers Care Shank Rander Name Role Phone Senait Pal MD Primary Care Provider Gustabo Fernandez PharmD Unavailable [phone] Reason for Visit * Reason Comments Med Refill Encounter Details Date Type Department Care Team (Late st Contact Info) Description 11/12/2022 Refill [facility] [address] [place], [place] [phone] Senait Pal MD [address] [place], [place] [phone] Social History Tobacco Use Types Packs/Day Years [...] documented as of this encounter Care Teams Shank Rander Relationship Specialty Start Date End Date Senait Pal MD [address] [place] [address] PCP - General Family Medicine 02/22/20 Gustabo Fernandez, PharmD [address] [place] [address] Pharmacist Internal Medicine 07/16/22 [facility] 09/14/23 documented as of this encounter
--- OUTSIDE RECORDS SUMMARY | 2025-02-09 16:31 | XMS_ITS | Encounter Summary ---
Author Organization [employer] Address [address] [facility] [address] 7[address] [place] [address] Care Team Providers Care Tobacco Stripper Hand Name Role Phone Senait Pal MD Primary Care Provider [phone] Gustabo Fernandez PharmD Unavailable [phone] Reason for Visit * Reason Onset Date Comments Appointment Request 01/19/2025 Encounter Details Date Type Department Care Team ([facility] st Contact Info) Description 01/19/2025 Telephone [facility] MEDICINE [address] [place], [place] [phone] Senait Pal MD [address] [place] [address] Appointment Request Social History Tobacco Use Types Packs/Day Years [...] encounter Miscellaneous Notes * Telephone Encounter - Johnathan Noble - 01/19/2025 1:10 PM EST Tc from pt requesting to schedule apt , states she received a letter Contact pt at [phone] (malagasy) documented in this encounter Plan of Treatment [...] documented as of this encounter Care Teams Tobacco Stripper Hand Relationship Specialty Start Date End Date Senait Pal MD 230 [place], [place] [phone] PCP - General Family Medicine 02/22/20 Gustabo Fernandez, HarshaD 230 [place], [place] [phone] Pharmacist Internal Medicine 07/16/22 [facility] 09/14/23 documented as of this encounter
--- OUTSIDE RECORDS SUMMARY | 2025-02-09 16:31 | XMS_ITS | Encounter Summary ---
Author Organization [employer] Address [address] [facility] 7t [place] [address] Care Team Providers Care Cylinder Handler Name Role Phone Senait Pal MD Primary Care Provider [phone] Gustabo Fernandez PharmD Unavailable [phone] Encounter Details Date Type Department Care Team ([facility] st Contact Info) Description 04/26/2022 Orders Only [facility] MEDICINE [address] [place], [place] [phone] Senait Pal MD [address] [place], [place] [phone] Tobacco user (Primary Dx) Social History Tobacco [...] disorder documented in this encounter Care Teams Cylinder Handler Relationship Specialty Start Date End Date Senait Pal MD [address] [place], [place] [phone] PCP - General Family Medicine 02/22/20 Gustabo Fernandez, HarshaD [address] [place] [address] Pharmacist Internal Medicine 07/16/22 [facility] 09/14/23 documented as of this encounter
--- OUTSIDE RECORDS SUMMARY | 2025-02-09 16:31 | XMS_ITS | Encounter Summary ---
Author Organization [employer] Address [address] [facility] [address] 7[address] [place] [address] Care Team Providers Care Senior Category Manager Name Role Phone Senait Pal MD Primary Care Provider [phone] Gustabo Fernandez PharmD Unavailable [phone] Reason for Visit * Reason Comments Med Refill Encounter Details Date Type Department Care Team ([facility] st Contact Info) Description 06/09/2023 Refill [facility] MEDICINE [address] [place], [place] [phone] Senait Pal MD [address] [place], [place] [phone] Moderate episode of recurrent major depressive disorder [...] as of this encounter Care Teams Senior Category Manager Relationship Specialty Start Date End Date Senait Pal MD 230 [place] [address] PCP - General Family Medicine 02/22/20 Gustabo Fernandez, PharmD 230 [place] [address] Pharmacist Internal Medicine 07/16/22 [facility] 09/14/23 documented as of this encounter
--- OUTSIDE RECORDS SUMMARY | 2025-02-09 16:31 | XMS_ITS | Encounter Summary ---
Author Organization [employer] Address [address] [facility] [address] [place] [address] Care Team Providers Care Second Hand Paper Machine Name Role Phone Senait Pal MD Primary Care Provider [phone] Gustabo Fernandez PharmD Unavailable [phone] Reason for Visit * Reason Comments Med Refill Encounter Details Date Type Department Care Team ([facility] st Contact Info) Description 10/09/2023 Refill [facility] MEDICINE 230 [place], [place] [phone] Senait Pal MD 230 [place], [place] [phone] Type 2 diabetes mellitus with stage 4 chronic kidney disease, with long-term current use of insulin ([facility]) Social History Tobacco Use Types Packs/Day [...] disease, with long-term current use of insulin (HCC) documented in this encounter Additional Health Concerns Assessment Noted Time PHQ-9 Depression Total Score: 7 11/01/19 23 11:04 AM EDT documented as of this encounter Care Teams Second Hand Paper Machine Relationship Specialty Start Date End Date Senait Pal MD 230 [place] [address] PCP - General Family Medicine 02/22/20 Gustabo Fernandez, HarshaD [address] [place] [address] Pharmacist Internal Medicine 07/16/22 [facility] 09/14/23 documented as of this encounter
--- OUTSIDE RECORDS SUMMARY | 2025-02-09 16:31 | XMS_ITS | Encounter Summary ---
Author Organization [employer] Address [address] [facility] 7t [place] [address] Care Team Providers Care Submarine Cable Equipment Technician Name Role Phone Senait Pal MD Primary Care Provider [phone] Gustabo Fernandez PharmD Unavailable [phone] Reason for Referral * Consultation (STAT) - Closed Specialty Diagnoses / Procedures Referred By Contac t Referred To Contact Neurology Diagnoses Hearing loss of left ear, unspecified hearing loss type Meningioma (CMS/HCC) (HCC) Senait Pal MD [address] [place], [place] Phone: tel: fax: Bianca Lockett MD [address] [place] [address] [place] [address] Phone: tel: fax: Referral ID Status Reason Start Date Expiration Date V isits Requested Visits Authorized [id number] Closed Specialty Services Required 01/15/2024 01/14/2025 1 1 Encounter Details Date Type Department Care Team (Late st Contact Info) Description 01/15/2024 Orders Only [facility] MEDICINE [address] [place] [address] Senait Pal MD [address] [place], [place] Hearing loss of left ear, unspecified [...] unspecified hearing loss type- Primary Meningioma (CMS/HCC) (HCC) Benign neoplasm of cerebral meninges documented in this encounter Additional Health Concerns Assessment Noted Time PHQ-9 Depression Total Score: 7 11/01/19 23 11:04 AM EDT documented as of this encounter Care Teams Submarine Cable Equipment Technician Relationship Specialty Start Date End Date Senait Pal MD [address] [place] [address] PCP - General Family Medicine 02/22/20 Gustabo Fernandez PharmD [address] [place] [address] Pharmacist Internal Medicine 07/16/22 [facility] 09/14/23 documented as of this encounter
--- OUTSIDE RECORDS SUMMARY | 2025-02-09 16:31 | XMS_ITS | Encounter Summary ---
Author Organization [employer] Address [address] [place] [address] 7t [place] [address] Care Team Providers Care Wet Finisher Name Role Phone Senait Pal MD Primary Care Provider [phone] Gustabo Fernandez PharmD Unavailable [phone] Reason for Referral * Imaging (Routine) - Closed Specialty Diagnoses / Procedures Referred By Contac t Referred To Contact Diagnoses Enlarged lymph node in neck Procedures US guided biopsy lymph node superficial Senait Pal MD [address] [place] [address] Phone: tel: fax: [facility] [address] [place] [phone] Phone: tel: fax: Referral ID Status Reason Start Date Expiration Date Visits Re quested Visits Authorized [id number] Closed 07/03/2022 12/30/2022 1 1 Encounter Details Date Type Department Care Team (Late st Contact Info) Description 07/03/2022 Orders Only [facility] MEDICINE [address] [place], [place] [phone] Senait Pal MD [address] [place], [place] [phone] Enlarged lymph node in neck (Primary Dx) [...] Primary documented in this encounter Care Teams Wet Finisher Relationship Specialty Start Date End Date Senait Pal MD [address] [place] [address] PCP - General Family Medicine 02/22/20 Gustabo Fernandez, HarsahD [address] [place] [address] Pharmacist Internal Medicine 07/16/22 [facility] 09/14/23 documented as of this encounter
--- OUTSIDE RECORDS SUMMARY | 2025-02-09 16:31 | XMS_ITS | Clinical Summary ---
Author Organization [employer] Address [address] [place] [address] Care Team Providers Care Radioactive Waste Disposal Dispatcher Name Role Phone Senait Car MD Primary Care Provider [phone] Gustabo Fernandez PharmD Unavailable [phone] Allergies Active Allergy Reactions Criticality Noted Date [...] 72 lozenge Active Lancets (Unilet Micro-Thin 33G) [facility] TEST BLOOD SUGAR THREE TIMES DAILY 100 [...] TABLET BY MOUTH AT BEDTIME 90 tablet Active levothyroxine (Synthroid) 75 MCG tablet Take 1 tablet (75 mcg) by mouth before breakfast. 90 tablet 3 025 2025 Active levothyroxine (Synthroid) 88 MCG tablet Take 1 tablet (88 mcg) by mouth before breakfast. 90 tablet 025 2025 Active BD Pen Needle Isabella Ultrafine 32G X 4 MM misc USE DIRECTED FOUR TIMES DAILY WITH INSULIN 100 each 025 Active clopidogrel (Plavix) 75 MG tablet TAKE 1 TABLET BY MOUTH EVERYDAY AT NOON 90 tablet 3 Active nystatin (Mycostatin) cream Apply topically 2 times daily. 60 g 025 2025 Active TRUEplus Lancets 33G miscIndication s:Type 2 diabetes mellitus with stage 4 chronic kidney disease, with long-term current use of insulin ([facility]) TEST BLOOD SUGAR THREE TIMES DAILY 100 each Active glucose blood (FreeStyle Precision Andrea Test) test stripIndicatio ns:Type 2 diabetes mellitus with diabetic peripheral angiopathy without gangrene, with long-term current use of insulin ([facility]),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 chronic dialysis, with long-term current use of insulin (HCC) USE TO TEST BLOOD SUGAR THREE TIMES DAILY 100 strip Active cholecalcifero l VITAMIN D (Vitamin D-3) 50 MCG (1999) tablet TAKE 1 TABLET BY MOUTH EVERYDAY AT NOON 90 tablet Active montelukast (Singulair) 10 MG tablet TAKE 1 TABLET BY MOUTH EVERY EVENING 90 tablet Active carvedilol (Coreg) 12.5 MG tablet TAKE 1 TABLET BY MOUTH TWICE DAILY AT NOON AND IN THE EVENING 180 tablet Active cetirizine (ZyrTEC) 5 MG tablet TAKE 1 TABLET BY MOUTH EVERY DAY NEEDED FOR ALLERGIES 90 tablet Active Continuous Glucose Cp Bleacher Operator (FreeStyle Nata 3 Gardners) deviceIndicati ons:Type 2 diabetes mellitus with diabetic peripheral angiopathy without gangrene, with long-term current use of insulin (HCC) 1 each Once per day. Use as directed for CGM 1 each Active Continuous Glucose Sensor (FreeStyle Nata 3 Plus Sensor) miscIndication s:Type 2 diabetes mellitus with diabetic peripheral angiopathy without gangrene, with long-term current use of insulin (HCC) 1 each every 15 days. Apply 1 every 15 days as directed for CGM 2 each Active budesonide-for moterol (Symbicort) 160-4.5 MCG/ACT inhaler INHALE 2 PUFFS BY MOUTH TWICE DAILY. RINSE MOUTH AFTER USING. 10.2 g Active mirtazapine (Remeron) 7.5 MG tablet TAKE 1 TABLET BY MOUTH AT BEDTIME 30 tablet Active Tradjenta 5 MG tabletIndicati ons:Type 2 diabetes mellitus with stage 4 chronic kidney disease, with long-term current use of insulin (HCC) TAKE 1 TABLET BY MOUTH EVERYDAY AT NOON 30 tablet Active Tradjenta 5 MG tabletIndicati ons:Type 2 diabetes mellitus with stage 4 chronic kidney disease, with long-term current use of insulin (HCC) TAKE 1 TABLET BY MOUTH EVERYDAY AT NOON 30 tablet 2024 Discontinued Active Problems Problem Noted Date [...] (10/08/2024 5:58 AM EDT): - followed by [facility] Assessment & Plan (09/05/2024 6:20 AM EDT): - followed by [facility] Osteomyelitis of right foot (CMS/HCC) 10/20/2023 Assessment & Plan (10/23/2023 11:52 AM EDT): - MRI on 09/26/23 - ESR 92 and CRP 2.47 on 09/04/24 - Starting Ertapenem treatment 500 mg IV x 6 wks - Continue following with Wound Care and city supervisor Abnormal echocardiogram 09/26/2023 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 09/26/2023 Assessment & Plan (10/23/2023 7:03 PM EDT): - hypocalcemia - continue high-dose calcium replacement prescribed by video rental clerk Metabolic acidosis 09/26/2023 Secondary renal hyperparathyroidism 09/26/2023 [...] (09/05/2024 6:22 AM EDT): - following with [facility] Wound care clinic Assessment & Plan (10/31/2023 2:36 PM EDT): -no evidence of infection -followed by vascular -advised keep area clean and dressed -return to clinic with changes in wound appearance, drainage, pain, redness Assessment & Plan (10/23/2023 11:50 AM EDT): - Following with vascular specialist and wound care clinic at [facility] - MRI on 09/26/23 showed osteomyelitis - [...] chronic HF in July 2023, hospitalized in [facility] - transthoracic echocardiogram on 07/24/23: Mildly increased [...] monitor fluid balance - following with both video rental clerk and physics instructor Assessment & Plan (08/24/2024 9:25 AM EDT): - acute on chronic HF in July 2023, hospitalized in [facility] - transthoracic echocardiogram on 07/24/23: Mildly increased [...] monitor fluid balance - following with both video rental clerk and physics instructor Assessment & Plan (10/31/2023 2:57 PM EDT): [...] chronic HF in July 2023, hospitalized in [facility] - transthoracic echocardiogram on 07/24/23: Mildly increased [...] monitor fluid balance - following with both video rental clerk and physics instructor Hearing loss in left ear 07/23/2023 Assessment [...] - will refer to audiology Pulmonary hypertension ([facility]) 04/29/2023 Assessment & Plan (10/08/2024 5:54 AM EDT): - suggested by CT in Dec 2022 - will evaluate with sleep study Assessment & Plan (04/29/2023 9:43 AM EST): - suggested by CT in Dec 2022 - will evaluate with sleep study Asthma-COPD overlap syndrome ([facility]/HCC) Assessment & Plan (09/05/2024 6:25 AM EDT): [...] states that she is scheduled for transfusion. Grant Coordinator is also planning to start EPO. Assessment & Plan (04/29/2023 9:41 AM EST): - chronic anemia due to CKD - plan to start erythropoietin with video rental clerk or heamtologist Prolonged Q-T interval on ECG 02/26/2023 Assessment & Plan (10/08/2024 5:54 AM EDT): - QTc > 500 ms - physics instructor recommends to discontinue SSRI, and sertraline was discontinued - after discontinuation of SSRI, QTc is still long - optimize electrolyte replacement - now on peritoneal dialysis Assessment & Plan (09/05/2024 6:08 AM EDT): - QTc > 500 ms - physics instructor recommends to discontinue SSRI, and sertraline was discontinued - after discontinuation of SSRI, QTc is still long - optimize electrolyte replacement - now on peritoneal dialysis Assessment & Plan (10/23/2023 11:54 AM EDT): - QTc > 500 ms - physics instructor recommends to discontinue SSRI, and sertraline was discontinued - optimize electrolyte replacement - now on peritoneal dialysis Assessment & Plan (08/25/2023 6:13 PM EDT): - QTc > 500 ms - physics instructor recommends to discontinue SSRI, and sertraline was discontinued - pharmacist will review her medications - optimize electrolyte replacement Assessment & Plan (07/26/2023 6:11 AM EDT): - most recent QTc 571 ms - physics instructor recommends to discontinue SSRI - pharmacist will review her medications - optimize electrolyte replacement Assessment & Plan (02/26/2023 12:16 PM EST): - most recent QTc 571 ms - physics instructor recommends to discontinue SSRI - pharmacist will review her medications - optimize electrolyte replacement Type 2 diabetes mellitus wit h chronic kidney disease on chronic dialysis, with long-term current use of insulin 07/03/2022 Assessment & Plan (10/08/2024 6:13 AM EDT): - A1C 6.4% on 08/24/24, improved from 6.7% on 10/22/23 - last seen by domestic cleaner, Dr. Herndon in Apr 2022. - Continue [...] eye exam: July 2024, proliferative diabetic retinopathy. [facility] Consultant. Dr. Blue. - Last foot exam: 08/24/24 High-risk. PAD. Neuropathy. s/p amputation of left big-toe. - Last microalbumin test: 10/31/22 UACR > 2000 - Last lipid profile 08/24/24 TRI; CHOL 128; LDL 62; HDL 53 - Last dental exam: ? Assessment & Plan (09/05/2024 6:19 AM EDT): A1C 6.7% on 10/22/23 - last seen by domestic cleaner, Dr. Herndon in Apr 2022. - Continue [...] 6.7% on 10/22/23 - last seen by domestic cleaner, Dr. Herndon in Apr 2022. - Continue [...] 6.8% on 07/23/23 - last seen by domestic cleaner, Dr. Herndon in Apr 2022. - Continue [...] 6.9% on 10/31/22 - last seen by domestic cleaner, Dr. Herndon in Apr 2022. - Continue [...] on 03/29/22 - seen by Dr. Herndon, [facility] Endo for mostly hypothyroidism in May 2022 [...] 8.8% on 03/29/22 - last seen by [facility] domestic cleaner on 02/20/21. Refer to a new domestic cleaner for transportation convenience. - Continue basal insulin: [...] find alternative medication and consult with her video rental clerk Assessment & Plan (07/26/2023 6:10 AM EDT): [...] find alternative medication and consult with her video rental clerk Assessment & Plan (04/29/2023 9:24 AM EST): [...] Plan (10/11/2024 10:37 PM EDT): - Cardiology, [facility], last seen on 08/05/23 -Nuclear stress test [...] & Plan (09/05/2024 6:11 AM EDT): [facility]Nuclear stress test [...] & Plan (10/22/2023 9:50 AM EDT): [facility] -Nuclear stress test [...] & Plan (08/25/2023 6:13 PM EDT): [facility] -Nuclear stress test [...] Plan (07/23/2023 11:54 AM EDT): - Cardiology, [facility], last seen on 01/15/23. EKG showed further [...] Plan (04/29/2023 9:35 AM EST): - Cardiology, [facility], last seen on 01/15/23. EKG showed further [...] Plan (02/25/2023 4:55 AM EST): - Cardiology, [facility], last seen on 01/15/23. EKG showed further increase in QT-c prolongation, likely due to electrolyte abnormality and medications. Sent to ED. -Nuclear stress test done in 2016 showed likely normal myocardial perfusion imaging. Last echo 2020 showed EF 60-65% with mild diastolic dysfunction, mild MR, mild pulmonary HTN Assessment & Plan (11/12/2022 10:57 AM EDT): - [facility] - Currently following with [facility] cardiology, last seen on 06/20/22. Found to have QT prolongation, likely due to electrolyte abnormality and medications Assessment & Plan (06/11/2022 8:54 AM EDT): - [facility] - Currently following with [facility] cardiology Peripheral venous insufficiency 02/28/2015 ESRD on dialysis 09/15/2013 Assessment & Plan (10/08/2024 6:00 AM EDT): - Grant Coordinator: Dr. Bowden, last seen on 10/13/24 - on peritoneal dialysis at home - avoid nephrotoxic drug Assessment & Plan (08/24/2024 9:27 AM EDT): - Grant Coordinator: Dr. Bowden, last seen on 10/13/24 - on peritoneal dialysis at home - avoid nephrotoxic drug Assessment & Plan (10/23/2023 11:55 AM EDT): - Grant Coordinator: Dr. Bowden, last seen on 10/13/24 - [...] - pt has an upcoming appt with video rental clerk - avoid nephrotoxic drug - renal dose medications Assessment & Plan (10/20/2023 11:19 AM EDT): >>ASSESSMENT AND PLAN FOR CKD (CHRONIC KIDNEY DISEASE) STAGE 5, GFR LESS THAN 15 ML/MIN (CMS/HCC) WRITTEN ON 10/20/2023 11:18 AM BY SENAIT CAR MD >>ASSESSMENT AND PLAN FOR STAGE 5 CHRONIC KIDNEY DISEASE NOT ON CHRONIC DIALYSIS ([facility]) WRITTEN ON 06/11/2022 8:54 AM BY SENAIT CAR MD - CKDIII/IV - most recent lab: Dec 2021 SCr 2.0 ; BUN 20; eGFR 24 - pt has an upcoming appt with video rental clerk - avoid nephrotoxic drug - renal dose medications Assessment & Plan (10/20/2023 11:19 AM EDT): >>ASSESSMENT AND PLAN FOR CKD (CHRONIC KIDNEY DISEASE) STAGE 5, GFR LESS THAN 15 ML/MIN ([facility]) WRITTEN ON 10/20/2023 11:18 AM BY SENAIT CAR MD >>ASSESSMENT AND PLAN FOR STAGE 5 CHRONIC KIDNEY DISEASE NOT ON CHRONIC DIALYSIS ([facility]) WRITTEN ON 11/12/2022 10:59 AM BY SENAIT CAR MD - CKDIII/IV - most recent lab: Dec 2021 SCr 2.0 ; BUN 20; eGFR 24 - pt has an upcoming appt with video rental clerk - avoid nephrotoxic drug - renal dose medications - obtain kidney biopsy result Assessment & Plan (10/20/2023 11:19 AM EDT): >>ASSESSMENT AND PLAN FOR CKD (CHRONIC KIDNEY DISEASE) STAGE 5, GFR LESS THAN 15 ML/MIN ([facility]) WRITTEN ON 10/20/2023 11:18 AM BY SENAIT CAR MD >>ASSESSMENT AND PLAN FOR STAGE 5 CHRONIC KIDNEY DISEASE NOT ON CHRONIC DIALYSIS ([facility]) WRITTEN ON 02/26/2023 12:04 PM BY SENAIT CAR MD - CKD IV-V - most recent lab: 01/21/23 Na 145; K 2.9; Cl 108; Bicarb 24; BUN 33; Scr 3.3; eGFR 15; Ca 5.7; Phos 4.6; Glu 152 - Grant Coordinator: Dr. Bowden, last seen in September 2021 [...] NOT ON CHRONIC DIALYSIS (CMS/HCC) WRITTEN ON 04/29/2023 9:36 AM BY SENAIT CAR MD - CKD IV-V - most recent lab: 01/21/23 Na 145; K 2.9; Cl 108; Bicarb 24; BUN 33; Scr 3.3; eGFR 15; Ca 5.7; Phos 4.6; Glu 152 - Grant Coordinator: Dr. Bowden, last seen in Mar 2023 - avoid nephrotoxic drug - renal dose medications Assessment & Plan (10/20/2023 11:19 AM EDT): >>ASSESSMENT AND PLAN FOR CKD (CHRONIC KIDNEY DISEASE) STAGE 5, GFR LESS THAN 15 ML/MIN (CMS/[facility]) WRITTEN ON 10/20/2023 11:18 AM BY SENAIT CAR MD >>ASSESSMENT AND PLAN FOR STAGE 5 CHRONIC KIDNEY DISEASE NOT ON CHRONIC DIALYSIS ([facility]) WRITTEN ON 07/23/2023 11:57 AM BY MIRNA SNYDER - CKD IV-V - most recent lab: 01/21/23 Na 145; K 2.9; Cl 108; Bicarb 24; BUN 33; Scr 3.3; eGFR 15; Ca 5.7; Phos 4.6; Glu 152 - Grant Coordinator: Dr. Bowden, last seen in Mar 2023 - avoid nephrotoxic drug - renal dose medications Assessment & Plan (10/20/2023 11:19 AM EDT): >>ASSESSMENT AND PLAN FOR CKD (CHRONIC KIDNEY DISEASE) STAGE 5, GFR LESS THAN 15 ML/MIN (CMS/HCC) WRITTEN ON 10/20/2023 11:18 AM BY SENAIT CAR MD >>ASSESSMENT AND PLAN FOR STAGE 5 CHRONIC KIDNEY DISEASE NOT ON CHRONIC DIALYSIS (CMS/HCC) WRITTEN ON 08/25/2023 5:46 PM BY SENAIT CAR MD - CKD IV-V - Grant Coordinator: Dr. Bowden, last seen in July 2023 - avoid nephrotoxic drug - renal dose medications - starting dialysis soon, likely peritoneal Peripheral arterial occlusive disease 04/16/2013 Assessment & Plan (10/11/2024 10:36 PM EDT): -s/p balloon angioplasty of left SFA on 06/10/13 -s/p left big-toe amputation -previously followed by Dr. Fuchs and Dr. Courtney at [facility], last appt in Jan 2020 -previously followed by Dr. Butler, last seen in Dec 17 -recently restarted seeing [facility] environmental management specialist, last seen in June 2024 - recently started seeing [facility] end[facility]ascualr -s/p left LE angioplasty on 07/10/23 -continue Plavix and ASA -discontinued cilostazol since it is contraindicated for HF -continue tramadol for claudication pain and other back / joint pain -work on risk factor management Assessment & Plan (09/05/2024 6:10 AM EDT): -s/p balloon angioplasty of left SFA on 06/10/13 -s/p left big-toe amputation -previously followed by Dr. Fuchs and Dr. Courtney at [facility], last appt in Jan 2020 -currently followed by Dr. Butler, last seen in Dec 17 -recently restarted seeing [facility] environmental management specialist, last seen in June 2024 -s/p [...] by Dr. Fuchs and Dr. Courtney at [facility], last appt in Jan 2020 -currently followed by Dr. Butler, last seen on 07/10/23 -s/p left LE angioplasty on 07/10/23 -previously seen by [facility] wound care on 05/2021 -continue Plavix and ASA -discontinued cilostazol since it is contraindicated for HF -continue tramadol for claudication pain and other back / joint pain -work on risk factor management Assessment & Plan (08/25/2023 6:07 PM EDT): -s/p balloon angioplasty of left SFA on 06/10/13 -s/p left big-toe amputation -previously followed by Dr. Fuchs and Dr. Courtney at [facility], last appt in Jan 2020 -currently followed by Dr. Butler, last seen on 07/10/23 -s/p left LE angioplasty on 07/10/23 -previously seen by [facility] wound care on 05/2021 -continue Plavix and ASA -discontinue cilostazol since it is contraindicated for HF -continue tramadol for claudication pain and other back / joint pain -work on risk factor management Assessment & Plan (07/23/2023 12:32 PM EDT): -s/p balloon angioplasty of left SFA on 06/10/13 -s/p left big-toe amputation -previously followed by Dr. Fuchs and Dr. Courtney at [facility], last appt in Jan 2020 -currently followed by Dr. Butler, last seen on 07/10/23 -s/p left LE angioplasty on 07/10/23 -previously seen by [facility] wound care on 05/2021 -continue Plavix and ASA -continue cilostazol -continue tramadol for claudication pain and other back / joint pain -work on risk factor management Assessment & Plan (04/29/2023 9:35 AM EST): -s/p balloon angioplasty of left SFA on 06/10/13 -s/p left big-toe amputation -previously followed by Dr. Fuchs and Dr. Courtney at [facility], last appt in Jan 2020 -currently followed by Dr. Butler, last seen on 04/24/22 -previously seen by [facility] wound care on 05/2021 -continue Plavix and ASA -continue cilostazol -continue tramadol for claudication pain and other back / joint pain -work on risk factor management Assessment & Plan (02/25/2023 4:53 AM EST): -s/p balloon angioplasty of left SFA on 06/10/13 -s/p left big-toe amputation -previously followed by Dr. Fuchs and Dr. Courtney at [facility], last appt in Jan 2020 -currently followed by Dr. Butler, last seen on 04/24/22 -previously seen by [facility] wound care on 05/2021 -continue Plavix and ASA -continue cilostazol -continue tramadol for claudication pain and other back / joint pain -work on risk factor management Assessment & Plan (11/12/2022 10:57 AM EDT): -s/p balloon angioplasty of left SFA on 06/10/13 -s/p left big-toe amputation -previously followed by Dr. Fuchs and Dr. Courtney at [facility], last appt in Jan 2020 -currently followed by Dr. Butler, last seen on 04/24/22 -previously seen by [facility] wound care on 05/2021 -continue Plavix and ASA -continue cilostazol -continue tramadol for claudication pain and other back / joint pain -work on risk factor management Assessment & Plan (06/11/2022 8:43 AM EDT): -s/p balloon angioplasty of left SFA on 06/10/13 -s/p left big-toe amputation -previously followed by Dr. Fuchs and Dr. Courtney at [facility], last appt in Jan 2020 -currently followed by Dr. Butler, last seen on 04/24/22 -previously seen by [facility] wound care on 05/2021 -continue Plavix and ASA -continue cilostazol -continue tramadol for claudication pain and other back / joint pain -work on risk factor management Assessment & Plan (04/01/2022 12:15 PM EST): -s/p balloon angioplasty of left SFA on 06/10/13 -s/p left big-toe amputation -previously followed by Dr. Fuchs and Dr. Courtney at [facility], last appt in Jan 2020 -currently followed by Dr. Butler and [facility] wound care on 05/2021, with [facility] RN [...] since pt is losing weight -Previously seeing [facility] endocrinology; referred to a new domestic cleaner for both DM and hypothyroidism / Hx thyroid cancer; pt has not received an appt yet. -Seen by [facility] endocrinology Dr. Herndon in Apr 2022. Assessment & Plan (08/24/2024 9:27 AM EDT): -h/o papillary thyroid cancer, s/p thyroidectomy -Goal TSH 0.5-1 -Most recent thyroid function test: 01/21/23 TSH 1.75 -Current replacement: levothyroxine 175 mcg daily -Continue current replacement, with caution since pt is losing weight -Previously seeing [facility] endocrinology; referred to a new domestic cleaner for both DM and hypothyroidism / Hx thyroid cancer; pt has not received an appt yet. -Seen by [facility] endocrinology Dr. Herndon in Apr 2022. Assessment & Plan (10/23/2023 7:04 PM EDT): -h/o papillary thyroid cancer, s/p thyroidectomy -Goal TSH 0.5-1 -Most recent thyroid function test: 01/21/23 TSH 1.75 -Current replacement: levothyroxine 175 mcg daily -Continue current replacement, with caution since pt is losing weight -Previously seeing [facility] endocrinology; referred to a new domestic cleaner for both DM and hypothyroidism / Hx thyroid cancer; pt has not received an appt yet. -Seen by [facility] endocrinology Dr. Herndon in Apr 2022. Assessment & Plan (08/25/2023 5:49 PM EDT): -h/o papillary thyroid cancer, s/p thyroidectomy -Goal TSH 0.5-1 -Most recent thyroid function test: 01/21/23 TSH 1.75 -Current replacement: levothyroxine 175 mcg daily -Continue current replacement, with caution since pt is losing weight -Previously seeing [facility] endocrinology; referred to a new domestic cleaner for both DM and hypothyroidism / Hx thyroid cancer; pt has not received an appt yet. -Seen by [facility] endocrinology Dr. Herndon in Apr 2022. Assessment & Plan (07/23/2023 12:30 PM EDT): -h/o papillary thyroid cancer, s/p thyroidectomy -Goal TSH 0.5-1 -Most recent thyroid function test: 01/21/23 TSH 1.75 -Current replacement: levothyroxine 175 mcg daily -Continue current replacement, with caution since pt is losing weight -Previously seeing [facility] endocrinology; referred to a new domestic cleaner for both DM and hypothyroidism / Hx thyroid cancer; pt has not received an appt yet. -Seen by [facility] endocrinology Dr. Herndon in Apr 2022. Assessment & Plan (04/29/2023 9:39 AM EST): -h/o papillary thyroid cancer, s/p thyroidectomy -Goal TSH 0.5-1 -Most recent thyroid function test: 01/21/23 TSH 1.75 -Current replacement: levothyroxine 175 mcg daily -Continue current replacement, with caution since pt is losing weight -Previously seeing [facility] endocrinology; referred to a new domestic cleaner for both DM and hypothyroidism / Hx thyroid cancer; pt has not received an appt yet. -Seen by [facility] endocrinology Dr. Herndon in Apr 2022. Assessment & Plan (02/25/2023 5:02 AM EST): -h/o papillary thyroid cancer, s/p thyroidectomy -Goal TSH 0.5-1 -Most recent thyroid function test: 01/21/23 TSH 1.75 -Current replacement: levothyroxine 175 mcg daily -Continue current replacement, with caution since pt is losing weight -Previously seeing [facility] endocrinology; referred to a new domestic cleaner for both DM and hypothyroidism / Hx thyroid cancer; pt has not received an appt yet. -Seen by [facility] endocrinology Dr. Herndon in Apr 2022. Assessment & Plan (11/12/2022 11:16 AM EDT): -h/o papillary thyroid cancer, s/p thyroidectomy -Goal TSH 0.5-1 -Most recent thyroid function test: In 2021, supratherapeutic. Repeating today -Current replacement: levothyroxine 175 mcg daily, decreased from 213 mcg daily after the most recent lab -Continue current replacement, with caution since pt is losing weight -Previously seeing [facility] endocrinology; referred to a new domestic cleaner for both DM and hypothyroidism / Hx thyroid cancer; pt has not received an appt yet. -[facility] [facility] Herndon recently. Assessment & Plan (06/11/2022 8:55 AM EDT): -h/o papillary thyroid cancer, s/p thyroidectomy -Goal TSH 0.5-1 -Most recent thyroid function test: 07/28/21 TSH 0.05 -Current replacement: levothyroxine 175 mcg daily, decreased from 213 mcg daily after the most recent lab -Continue current replacement, with caution since pt is losing weight -Previously seeing [facility] endocrinology; referred to a new domestic cleaner for both DM and hypothyroidism / Hx thyroid cancer; pt has not received an appt yet. -Seen by [facility] endocrin[facility] Dr. Herndon recently. Assessment & Plan (04/01/2022 12:19 PM EST): -h/o papillary thyroid cancer, s/p thyroidectomy -Goal TSH 0.5-1 -Most recent thyroid function test: 07/28/21 TSH 0.05 -Current replacement: levothyroxine 175 mcg daily, decreased from 213 mcg daily after the most recent lab -Continue current replacement, with caution since pt is losing weight -Previously seeing [facility] endocrinology; referred to a new domestic cleaner for both DM and hypothyroidism / Hx thyroid cancer; pt has not received an appt yet. -Refer to [facility] Asthma 11/07/2011 Assessment & Plan (04/29/2023 [...] Previously on sertraline. Due to prolonged QT-c, physics instructor recommended to discontinue - Started on mirtazapine 7.5 mg at bedtime in September 2023. She reports her mood has been better and stable. - Continue mirtazapine. Assessment & Plan (10/23/2023 11:47 AM EDT): - Previously on sertraline. Due to prolonged QT-c, physics instructor recommended to discontinue - Started on mirtazapine 7.5 mg at bedtime in September 2023. She reports her mood has been better and stable. - Continue mirtazapine. Assessment & Plan (08/25/2023 5:58 PM EDT): - Previously on sertraline. Due to prolonged QT-c, physics instructor recommended to discontinue - Asked our pharmacist to review her medications - will consider adding bupropion, or venlafaxine, or duloexetine (Cymbalta). Assessment & Plan (02/26/2023 12:15 PM EST): - Previously on sertraline. Due to prolonged QT-c, physics instructor recommended to discontinue - Asked our pharmacist [...] at goal today -Co-managed with our pharmacist, video rental clerk, and physics instructor -Continue working on lifestyle modifications -Continue carvedilol 12.5 mg bid -Continue hydralazine 10 mg bid, will check with pharmacist and video rental clerk whether she is still taking it -Continue amlodipine 2.5 mg daily -Continue furosemide 80 mg daily - Treatment Hx: Discontinued amlodipine 5 mg daily due to swelling, Furosemide dose was increased during recent hospitalization for HF, isosorbide was added. Spironolactone (Hx hypokalemia), but discontinued when she moved to [place]. Losartan and chlorthalidone were discontinued in May 2020 due to MARY KATE -Continue checking home BP -Or consider SGLT-2 inhibitor or Entresto (depending on echo / cardiology recommendation). Assessment & Plan (09/05/2024 6:12 AM EDT): -Goal BP < 130/80 per ACC/AHA guideline (Treatment threshold >= 130/80 ) -BP not at goal today -Co-managed with our pharmacist, video rental clerk, and physics instructor -Continue working on lifestyle modifications -Continue carvedilol 12.5 mg bid -Continue hydralazine 10 mg bid, will check with pharmacist and video rental clerk whether she is still taking it -Continue amlodipine 2.5 mg daily -Continue furosemide 80 mg daily - Treatment Hx: Discontinued amlodipine 5 mg daily due to swelling, Furosemide dose was increased during recent hospitalization for HF, isosorbide was added. Spironolactone (Hx hypokalemia), but discontinued when she moved to [place]. Losartan and chlorthalidone were discontinued in May [...] at goal today -Co-managed with our pharmacist, video rental clerk, and physics instructor -Continue working on lifestyle modifications -Continue carvedilol 12.5 mg bid -Continue hydralazine 10 mg bid, will check with pharmacist and video rental clerk whether she is still taking it -Continue amlodipine 2.5 mg daily -Continue furosemide 80 mg daily - Treatment Hx: Discontinued amlodipine 5 mg daily due to swelling, Furosemide dose was increased during recent hospitalization for HF, isosorbide was added. Spironolactone (Hx hypokalemia), but discontinued when she moved to [place]. Losartan and chlorthalidone were discontinued in May [...] at goal today -Co-managed with our pharmacist, video rental clerk, and physics instructor -Continue working on lifestyle modifications -Continue carvedilol 12.5 mg bid -Continue hydralazine -Continue furosemide 80 mg daily - Treatment Hx: Discontinued amlodipine 5 mg daily due to swelling, Furosemide dose was increased during recent hospitalization for HF, isosorbide was added. Spironolactone (Hx hypokalemia), but discontinued when she moved to [place]. Losartan and chlorthalidone were discontinued in May [...] at goal today -Co-managed with our pharmacist, video rental clerk, and physics instructor -Continue working on lifestyle modifications -Continue metoprolol tartrate 25 mg bid -Discontinued amlodipine 5 mg daily yesterday by video rental clerk due to swelling -started furosemide 40 mg daily Treatment Hx: Previously on spironolactone (Hx hypokalemia), but discontinued when she moved to [place] Losartan and chlorthalidone were discontinued in May [...] at goal today -Co-managed with our pharmacist, video rental clerk, and physics instructor -Continue working on lifestyle modifications -Continue metoprolol tartrate 25 mg bid -Continue amlodipine 5 mg daily Treatment Hx: Previously on spironolactone (Hx hypokalemia), but discontinued when she moved to [place] Losartan and chlorthalidone were discontinued in May [...] at goal today -Co-managed with our pharmacist, video rental clerk, and physics instructor -Continue working on lifestyle modifications -Continue metoprolol tartrate 25 mg bid -Continue amlodipine 5 mg daily Treatment Hx: Previously on spironolactone (Hx hypokalemia), but discontinued when she moved to [place] Losartan and chlorthalidone were discontinued in May [...] hypokalemia), but discontinued when she moved to [place] Losartan and chlorthalidone were discontinued in May [...] hypokalemia), but discontinued when [place] Losartan and chlorthalidone were discontinued in May [...] 6.7% on 10/22/23 - last seen by domestic cleaner, Dr. Herndon in Apr 2022. - Continue [...] eye exam: July 2024, proliferative diabetic retinopathy. [facility]ant. Dr. Blue. - Last foot exam: 08/24/24 High-risk. PAD. Neuropathy. s/p amputation of left big-toe. - Last microalbumin test: 10/31/22 UACR > 2000 - Last lipid profile 08/24/24 TRI; CHOL 128; LDL 62; HDL 53 - Last dental exam: ? Assessment & Plan (09/05/2024 6:22 AM EDT): - A1C 6.4% on 08/24/24, improved from 6.7% on 10/22/23 - last seen by domestic cleaner, Dr. Herndon in Apr 2022. - Continue [...] 6.7% on 10/22/23 - last seen by domestic cleaner, Dr. Herndon in Apr 2022. - Continue [...] 08/22/23, has worsened - last seen by domestic cleaner, Dr. Herndon in Apr 2022. - Continue [...] 6.8% on 07/23/23 - last seen by domestic cleaner, Dr. Herndon in Apr 2022. - Continue [...] 6.9% on 10/31/22 - last seen by domestic cleaner, Dr. Herndon in Apr 2022. - Continue [...] 8.8% on 03/29/22 - last seen by domestic cleaner, Dr. Herndon in Apr 2022. - Continue [...] 8.8% on 03/29/22 - last seen by [facility] domestic cleaner on 02/20/21. Refer to a new domestic cleaner for transportation convenience. - Continue basal insulin: [...] 7.8% on 09/25/21 - last seen by [facility] domestic cleaner on 02/20/21. Refer to a new domestic cleaner for transportation convenience. - Continue basal insulin: [...] 7.8% on 09/25/21 - last seen by [facility] domestic cleaner on 02/20/21. Refer to a new domestic cleaner for transportation convenience. - Continue basal insulin: [...] Date Resolved Date Acute hypoxemic respiratory failure (CMS/HCC) 09/26/19 24 10/20/2023 Anasarca 09/26/2023 10/20/2023 CHF exacerbation 09/26/2023 [...] Plan (06/11/2022 8:54 AM EDT): Refer to permanent waver Obesity 11/07/2011 03/29/2022 Encounters Date Type Department Care Team Description 02/04/2025 Refill [facility] [address] [place] [address] Senait Car MD Type 2 diabetes mellitus with stage 4 chronic kidney disease, with long-term current use of insulin ([facility]) 01/19/2025 Telephone [facility] [address] [place] [address] Senait Car MD Nurse Triage 01/19/2025 Telephone [facility] [address] [place] [address] Senait Car MD Appointment Request 01/02/2025 Refill [facility] [address] [place] [address] Senait Car MD 12/10/2024 Refill [facility] [address] [place] [address] Senait Car MD 11/29/2024 Refill [facility] [address], [place] [address] Senait Car MD Type 2 diabetes mellitus with stage 4 chronic kidney disease, with long-term current use of insulin ([facility]) 11/25/2024 Orders Only [facility] [address] [place] [address] Senait Car MD 11/23/2024 Refill [facility] [address] [place] [address] Senait Car MD 11/20/2024 Refill [facility] [address] [place] [address] Senait Car MD Type 2 diabetes mellitus with diabetic peripheral angiopathy without gangrene, with long-term current use of insulin ([facility]) 11/19/2024 Telephone [facility] [address] [place] [address] Senait Car MD october recall 11/12/2024 Refill [facility] [address] [place] [address] Senait Car MD Type 2 diabetes mellitus with diabetic peripheral angiopathy without gangrene, with long-term current use of insulin ([facility]) 11/11/2024 Refill [facility] [address] [place] [address] Senait Car MD from Last 3 Months Immunizations Immunization Administration [...] 60 years or older (1 - Risk 50-74 years 1-dose series) 2004 COVID-19 Vaccine ( - season) 2024 03/29/2022, 11/29/2020, 11/08/2020 Influenza Vaccine [...] Procedure Name Priority Date/Time Associated Diagnosis Comments LIPID PANEL WITH REFLEX TO DIRECT LDL Routine 08/24/2024 2:38 PM EDT Dyslipidemia POCT GLYCATED HEMOGLOBIN, TOTAL Routine 08/24/2024 1:30 PM EDT Type 2 diabetes mellitus with diabetic peripheral angiopathy without gangrene, with long-term current use of insulin ([facility]) DIABETES EYE EXAM Routine 08/05/2024 BI MAMMOGRAM SCREENING TOMOSYNTHESIS BILATERAL Routine 01/17/2024 3:00 PM EDT from Last 3 Months or Most Recently Relevant to Health Maintenance Results * Lipid Panel with Reflex to Direct LDL (08/24/2024 2:38 PM EDT) Triglycerides 65 <150 mg/dL [facility] Comment:Desirable Triglyceri de: less than 150 mg/dLBorderline High Triglyceride 150-199 mg/dLHigh Triglyceride: 200-499 mg/dLVery High Triglyceride: greater than or equal to 5OO mg/dL Cholesterol 128 <200 mg/dL [facility] Comment:Desirable Cholestero l: less than 200 mg/dLBorderline High Cholesterol: 200-239 mg/dLHigh Cholesterol: greater than 239 mg/dL LDL Cholesterol Calculated 62 <100 mg/dL [facility] Comment:Desirable LDL: less than 100 mg/dLNear Optimal/Above Optimal LDL: 110- 129 mg/dLBorderline High LDL: 130-159 mg/dLHigh LDL: 160-189 mg/dLVery High LDL: greater than or equal to 190 mg/dL HDL Cholesterol 53 >40 mg/dL [facility] Comment:Desirable HDL: great er than 40 mg/dL Note: This HDL assay may give artificially low results in patients with liver disease. Blood 08/24/2024 2:38 PM EDT 08/24/2024 4:02 PM EDT Senait Car MD LAB BLOOD ORDERABLES Final Resul t Performing Organization Address City/State/[facility] Co de Phone Number [facility] [address] [place] [phone] * (ABNORMAL) POCT HGB A1C (08/24/2024 1:30 PM EDT) Hemoglobin A1C 6.4(A) 4.0 - 6.0 % QC Media Lot # [id number] Lot# Expiration Date Blood 08/24/2024 1:30 PM EDT us Senait Car MD POINT OF CARE TEST ENTER/EDIT OR DERABLES Final Result * Hm Diabetes Eye Exam (08/05/2024) Eye Exam Normal Normal 08/05/2024 Jesus Negrete MD HEALTH MAINTENANCE Final Result * BI Mammogram Screening Tomosynthesis Bilateral (01/17/2024 3:00 PM EDT) Anatomical Region Laterality Modality Breast Bilateral Mammography 01/17/2024 3:00 PM EDT Narrative 01/27/2024 7:44 PM EST [address] [place] [address] Mammography Report Signed Patient: Sarah Jones MR#: [id number] : 1955 Acct:[id number] Age/Sex: 68 / F ADM Date: 01/17/24 Loc: HO.MAMMO Attending Dr: Senait Car MD Ordering Physician: Senait Car MD Results: 2Benign F indings Date of Service: 01/17/24 Follow Up: 1 Year From Orig inal Mammogram Procedure(s): MM tomosynthesis screening BI Accession Number(s): [id number] cc: Senait Car MD EXAMINATION: MM SCREENING [...] OV> 01/27/241940 DD/ 1500 TD/TT: 01/17/24 1515 Weed Inspector: Procedure Note Donotuseinterpreter, Image - 01/27/[address] [place] [address] Mammography Report Signed Patient: Sarah Jones [facility]#: [id number] : 5Acct:[id number] Age/Sex: 68 / FADM Date: 01/17/24 Loc: HO.MAMMO Attending Dr: Senait Car MD Ordering Physician: Senait Car MDResults: 2Benign F indings Date of Service: 01/17/24Follow Up: 1 Year From Orig inal Mammogram Procedure(s): MM tomosynthesis screening BI Accession Number(s): [id number] cc: Senait Car MD EXAMINATION: MM SCREENING [...] by Camilla Poole DO in OV> 01/27/24 1941 DD/ 1500 TD/TT: 01/17/24 1515 Weed Inspector: Senait Car MD IMG BI PROCEDURES Edited Result - Final from Last 3 Months or Most Recently Relevant to Health Maintenance Insurance [facility] [employer] (HMO D-SNP) [place]ENCER [id number] Care Teams Radioactive Waste Disposal Dispatcher Relationship Specialty Start Date End Date Senait Car MD [address] [place] [address] PCP - General Family Medicine 02/22/20 Gustabo Fernandez, PharmD [address] [place] [address] Pharmacist Internal Medicine 07/16/22 [facility] 09/14/23
--- OUTSIDE RECORDS SUMMARY | 2025-02-09 16:31 | XMS_ITS | Encounter Summary ---
Demographics Address [address] [place] [address] Home Phone Preferred Language es Marital Status Unknown Sabianism Affiliation Unknown Race White Ethnic Group Unknown Author Organization [facility] Address [address] [place] [address] Phone Care Team Providers Care Director New Product Name Role Phone Senait Pal MD Primary Care Provider [phone] Encounter Details Date Type Department Care Team (Late st Contact Info) Description 06/08/2020 Orders Only [facility] [address] [place] [address] Provider, MD Jesus Social History Tobacco Use Types Packs/Day Years Used Date Smoking Tobacco: Former Cigarettes 0 Q uit: 03/18/2015 Comments:Smoking History Inf o:Every [...] on filedocumented in this encounter Care Teams Director New Product Relationship Specialty Start Date End Date Senait Pal MD PCP - General 03/28/20 documented as of this encounter
--- OUTSIDE RECORDS SUMMARY | 2025-02-09 16:31 | XMS_ITS | Encounter Summary ---
Author Organization [employer] Address [address] [place] [address] Care Team Providers Care Interstate Planner Name Role Phone Senait Pal MD Primary Care Provider [phone] Gustabo Fernandez PharmD Unavailable [phone] Encounter Details Date Type Department Care Team (Late st Contact Info) Description 09/24/2023 Orders Only [facility] [address] [place], [place] [phone] Senait Pal MD [address] [place], [place] [phone] Type 2 diabetes mellitus with diabetic peripheral angiopathy without gangrene, with long-term current use of insulin ([facility]) (Primary Dx); 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 chronic dialysis, with long-term current use of insulin ([facility]); Pain in both lower extremities Social History [...] gangrene, with long-term current use of insulin (HCC)- Primary 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 chronic dialysis, with long-term current use of insulin (HCC) Pain in both lower extremities documented in this encounter Additional Health Concerns Assessment Noted Time PHQ-9 Depression Total Score: 7 11/01/19 23 11:04 AM EDT documented as of this encounter Care Teams Interstate Planner Relationship Specialty Start Date End Date Senait Pal MD [address] [place] [address] PCP - General Family Medicine 02/22/20 Gustabo Fernandez PharmD [address] [place] [address] Pharmacist Internal Medicine 07/16/22 [facility] 09/14/23 documented as of this encounter
--- OUTSIDE RECORDS SUMMARY | 2025-02-09 16:31 | XMS_ITS | Data Portability ---
Author Organization [employer], [facility] Address [address] [place] [address] Care Team Providers Care Subscription Agent Name Role Phone HIM CCA OTHER Assessment [...] PCP. The patient agreed with this plan. [email or web address] Not available 11/01/2021 19:13:25 08/29/2022 08/29/2022 As noted, we were called to see this patient regarding concerns of cellulitis of the left lower leg Evaluation in the field was performed by my depot agent colleague, as noted above, I provided real-time [...] serum or plasma 06/22/ 2024 06/22/2 024 [facility], [address] [place] [address], [phone] 4 20:52:48 hemoglobin + hematocrit, blood 2023 024 [facility], [address] [place] [address], [phone] 4 20:51:45 Referral None recorded. Procedures None recorded. Surgeries None recorded. Imaging None recorded. Medication Orders sodium chloride 0.9 % intravenous solution 2023 024 [facility], [address] [place] [address], [id number], 4 20:51:12 doxycycline hyclate 100 mg capsule 2022 023 [email or web address] Not available 3 15:43:21 doxycycline hyclate 100 mg capsule 2022 023 [facility], [address] [place] [address], [id number], 3 15:51:20 Patient TargetsNo targets recorded. Patient InstructionsNo instructions recorded. Reason for Referral None Reported. Results Created Date Observation Date Name Description Value Unit Range Abnormal Flag Note LastModifiedBy Organization Detail LastModifiedTime 09/07/19 24 09/07/2023 BMP, serum or plasm a BUN 124 Not Available Main - Ins [address], [id number] 09/07/2023 20:50:35 09/07/19 24 09/07/2023 BMP, serum or plasm a Ca 0.52 Not Available Main - [facility] [address], [id number] 09/07/2023 20:50:35 09/07/19 24 09/07/2023 BMP, serum or plasm a CI- 103 Not Available Main - [facility] [address], [address] 09/07/2023 20:50:35 09/07/19 24 09/07/2023 BMP, serum or plasm a CRE 8.1 Not Available Main - [facility] [address], [address] 09/07/2023 20:50:35 09/07/19 24 09/07/2023 BMP, serum or plasm a GLU 267 Not Available Main - [facility] [address], [address] 09/07/2023 20:50:35 09/07/19 24 09/07/2023 BMP, serum or plasm a K+ 3.0 Not Available Main - [facility] [address], [address] 09/07/2023 20:50:35 09/07/19 24 09/07/2023 BMP, serum or plasm a Na+ 140 Not Available Main - [facility] [address], [address] [place] [address] 09/07/2023 20:50:35 09/07/19 24 09/07/2023 BMP, serum or plasm a tCO2 18 Not Available Main - [facility] [address], [id number] 09/07/2023 20:50:35 09/07/19 24 09/07/2023 hemog lobin + hemat ocrit , blood Hemoglobin 9.5 Not Available Main - [facility] [address] [place] [address], [phone] 09/07/2023 20:51:28 09/07/19 24 09/07/2023 hemog lobin + hemat ocrit , blood Hematocrit 28 Not Available [facility] [address] [place] [address], [phone] 09/07/2023 20:51:28 Result Notes None recorded. Medical [...] Recorded Body weight Respiratory rate Oxygen saturation Body temperature Heart rate Systolic And Diastolic Provider Name and Address Organization Details Last Updated DateTime 3 26769.7 6 g 16 /min 99 % 97.8 [degF] 75 /min 151/71 mm[Hg] Not Available [facility] 3 15:40:42 Date Recorded Heart rate Oxygen saturation Respiratory rate Body temperature Systolic And Diastolic Provider Name and Address Organization Details Last Updated DateTime 4 67 /min 100 % 16 /min 97.5 [degF] 113/60 mm[Hg] Not Available [facility] 4 20:36:59 Date Recorded Heart rate Oxygen saturation Respiratory rate Body temperature Systolic And Diastolic Provider Name and Address Organization Details Last Updated DateTime 2 84 /min 99 % 18 /min 97.8 [degF] 137/65 mm[Hg] Not Available [facility] 2 19:10:22 Social History None recorded. 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 but no other [...] ml-Unable to tolerate PO Kcl-expect called at [facility] Primary care, consider__ _ Dispositio n: ED Health Concerns Section Related Observation LastModified by Organization Detai ls LastModified Time None Recorded Concern Status LastModified by Organization Details LastModified Time None Recorded Advance Directives Directive None Recorded Payers Insurance Date Sequence Insurance Name Policy Number Policy Camacho Covered Member ID Camacho Member ID Guarantor Name 07/17/2024 1 [employer] [facility] [employer] [facility] - DOS PRIOR TO 2022 - DUAL ELIGIBLE (MEDICARE REPLACEMENT/AD VANTAGE - HMO) Sarah García [id number] Sarah García 07/17/2024 1 [employer] [facility] [employer] [facility] - DOS ON OR AFTER 2022 - DUAL ELIGIBLE - [facility] OPTIONS AND ONE CARE (MEDICARE REPLACEMENT/AD VANTAGE - HMO) Sarah García [id number] Sarah García Notes Date Note Type Note Provider Name and Address Organization Details Recorded Time 11/01/2021 text/html ROS as noted in the HPI HPI: Alergies-sandra inhibtors: cough and cilostazol: cough. Member reported fever and chills with weakness x 3 days, stated tested negative for Covid with home test. Questions UTI, but asymptomatic other than the above. French speaker. Member is 66 yo, has thyroid cancer, DM, HTN, Ischemic cardiac disease, DM and Asthma. Denied having respiratory or GI/ sx. ................... ................... ................... ................... ................... ................... ................... ........ CRC Nursing Assessment: Comments: CRC RN DID NOT NEED FURTHER INFO TO PROCESS VISIT ................... ................... ................... ................... ................... ................... ................... ........ Lamp Cleaner Note: Pt states she feels tired and sick with the chills but only at night. Pt admits Tylenol helps with chills. Pt denies chest pain/coughing/sneez ing/SOB and states she currently feels normal. UA negative for UTI, blood glucose 95. Pt states she has been drinking water without issues. Skin turgor good. Pt well appearing. [employer] contacted. Red flags discussed ................... ................... ................... ................... ................... ................... ................... ........ Disposition: Fulfilled Kermit Tomas MD [address] [facility], [place], [address], [employer] 11/01/2021 19:13:41 08/29/2022 text/html HPI: CCA calling [...] ................... ................... ................... ................... ................... ................... ........ Lamp Cleaner Note From Victor Manuel Gilmore: Pt CO [...] ........ Disposition: Fulfilled Noe Cortes MD [address] [facility], [place], [address], [employer] 08/29/2022 16:20:09 09/07/2023 text/html ROS as noted in the HPI CRC Nurse Triage Notes (George Gil): Chief Complaints: Syncope/Dizziness/L ightheadedness, Weakness/Lethargy PMH: Amputation, Diabetes, COPD/Asthma, Hypertension, Heart Disease Allergies: Unknown Comments: Clay Modeler verified the member's name//address and phone number. [...] emergency treatment if needed -Socorro Gil RN Lamp Cleaner POC Test Results from Tamra Smith iSTAT Chem8+ (20:37:25) Na: 140 mEq/L K: 3.0 mEq/L Cl: 103 mEq/L iCa: 0.52 mmol/L TCO2: 18 mmol/L Glu: 267 mg/dL BUN: 124 mg/dL Crea: 8.1 mg/dL Hct: 28 % Hb: 9.5 g/dL A ................... ................... ................... ................... ................... ................... ................... ........ Lamp Cleaner Note From Tamra Smith: [facility] Lamp Cleaner OmarTamika Smith SC6 dispatched [facility] for a 68 yof C/O dizziness. 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 Blood sugar 324. Pt used 13U tresiba nightly, and had not started any new meds recently. She was instructed by her Child Care Provider in the past week to DC her lasix, and stated she performed lab work in the past week through her Nephrology office. [facility] consulted; #20 IV placed in her left AC, BMP acquired, and she was given 500 mL NS. BUN and creatinine were critically high; [facility] was consulted again, and pt was informed that she must be transported to the ED immediately. Pt agreed and 911 was called. [facility] arrived and transported her to [place] ED. ................... ................... ................... ................... ................... ................... ................... ........ Disposition: Jesse BELLO MD [address] [facility], [place], [address], ROBERT - [facility] 09/07/2023 21:09:47 OBGyn Episode No OBEpisode recorded.
--- OUTSIDE RECORDS SUMMARY | 2025-02-09 16:31 | XMS_ITS | Encounter Summary ---
Author Organization [employer] Address [address] [facility] [address] [address] [place] [address] Care Team Providers Care Siebel Solution Architect Name Role Phone Senait Pal MD Primary Care Provider [phone] Gustabo Fernandez PharmD Unavailable [phone] Reason for Visit * Reason Onset Date Comments Durable Medical Equipment 12/10/2022 Encounter Details Date Type Department Care Team (Late st Contact Info) Description 12/10/2022 Telephone [facility] MEDICINE [address] [place], [place] [phone] Senait Pal MD [address] [place], [place] [phone] Durable Medical Equipment Social History Tobacco Use [...] documented as of this encounter Care Teams Siebel Solution Architect Relationship Specialty Start Date End Date Senait Pal MD [address] [place] [address] PCP - General Family Medicine 02/22/20 Gustabo Fernandez, Agnes [address] [place] [address] Pharmacist Internal Medicine 07/16/22 [facility] 09/14/23 documented as of this encounter
--- OUTSIDE RECORDS SUMMARY | 2025-02-09 16:31 | XMS_ITS | Encounter Summary ---
Author Organization [employer] Address [address] [place] [address] Care Team Providers Care Food Assembler Kitchen Name Role Phone Senait Pal MD Primary Care Provider [phone] Gustabo Fernandez PharmD Unavailable [phone] Reason for Visit * Reason Onset Date Comments Hospital Follow-up 09/24/2023 Encounter Details Date Type Department Care Team ([facility] st Contact Info) Description 09/24/2023 Telephone [facility] MEDICINE [address] [place], [place] [phone] Senait Pal MD [address] [place], [place] [phone] Hospital Follow-up Social History Tobacco Use Types [...] documented as of this encounter Care Teams Food Assembler Kitchen Relationship Specialty Start Date End Date Senait Pal MD [address] [place] [address] PCP - General Family Medicine 02/22/20 Gustabo Fernandez, HarshaD [address] [place] [address] Pharmacist Internal Medicine 07/16/22 [facility] 09/14/23 documented as of this encounter
--- OUTSIDE RECORDS SUMMARY | 2025-02-09 16:31 | XMS_ITS | Encounter Summary ---
Author Organization [employer] Address [address] [place] [address] Care Team Providers Care Tellers Supervisor Name Role Phone Senait Pal MD Primary Care Provider [phone] Gustabo Fernandez PharmD Unavailable [phone] Encounter Details Date Type Department Care Team ([facility] st Contact Info) Description 04/17/2024 Orders Only [facility] MEDICINE [address] [place], [place] [phone] Senait Pal MD [address] [place], [place] [phone] Dark stools (Primary Dx); Diarrhea, unspecified type; [...] Blood Count 9.6 4.8 - 10.8 X10*3/uL [facility] Red Blood Count 3.82(L) 4.20 - 5.50 X10*6/uL [facility] Hemoglobin 10.5(L) 12.0 - 16.0 g/dl [facility] Hematocrit 34.7(L) 37.0 - 47.0 % [facility] Mean Corpuscular Volume 90.8 80.0 - 98.0 fL [facility] Mean Corpuscular Hemoglobin 27.5 27.0 - 33.0 pg [facility] Mean Corpuscular HGB Conc 30.3(L) 31.0 - 35.0 g/dl [facility] Red Cell Distribution Width 15.7 11.0 - 16.0 % [facility] Platelet Count 158(L) 160 - 400 X10*3/uL [facility] Mean Platelet Volume 10.9 9.4 - 12.3 fL [facility] Neutrophils Percent Auto 74.1(H) 45 - 73 % [facility] Imm Gran Pct Auto 0.4 0.0 - 0.4 % [facility] Lymphocytes Percent Auto 12.5(L) 20 - 40 % [facility] Monocytes Percent Auto 9.8 2 - 11 % [facility] Eosinophils Percent Auto 2.5 0 - 4 % [facility] Basophils Percent Auto 0.7 0 - 2 % [facility] NRBC Pct Auto 0.0 0.0 - 0.2 /100WBC [facility] Neutrophils Absolute Auto 7.1 2.0 - 8.3 x10*3/uL [facility] Imm Gran Abs Auto 0.04(H) 0.00 - 0.03 X10*3/uL [facility] Lymphocytes Absolute Auto 1.2 1.2 - 4.9 X10*3/uL [facility] Monocytes Absolute Auto 0.9 0.1 - 1.2 X10*3/uL [facility] Eosinophils Absolute Auto 0.2 0.0 - 0.4 X10*3/uL [facility] Basophils Absolute Auto 0.1 0.0 - 0.2 X10*3/uL [facility] NRBC Abs Auto 0.000 0.0 - 0.012 X10*3/uL [facility] Blood Venous blood specimen / Unknown 10/08/2024 11:22 AM EDT 10/08/2024 1:07 PM EDT Senait Pal MD LAB BLOOD ORDERABLES Final Resul t Performing Organization Address [facility]/ZIP Co de Phone Number [facility] [address] [place] [phone] * (ABNORMAL) TSH with Reflex to Free T4 (08/24/2024 2:38 PM EDT) TSH reflex Free T4 7.15(H) 0.32 - 4.0 uIU/mL [facility] Blood 08/24/2024 2:38 PM EDT 08/24/2024 4:02 PM EDT Senait Pal MD LAB BLOOD ORDERABLES Final Resul t Performing Organization Address [facility] Co de Phone Number [facility] [address] [place] [phone] documented in this encounter Visit Diagnoses Diagnosis Dark stools- Primary Nonspecific abnormal finding in stool contents Diarrhea, unspecified type Postoperative hypothyroidism Postsurgical hypothyroidism documented in this encounter Additional Health Concerns Assessment Noted Time PHQ-9 Depression Total Score: 7 11/01/19 23 11:04 AM EDT documented as of this encounter Care Teams Tellers Supervisor Relationship Specialty Start Date End Date Senait Pal MD [address] [place] [address] PCP - General Family Medicine 02/22/20 Gustabo Fernandez, PharmD [address] [place] [address] Pharmacist Internal Medicine 07/16/22 [facility] 09/14/23 documented as of this encounter
--- OUTSIDE RECORDS SUMMARY | 2025-02-09 16:31 | XMS_ITS | Encounter Summary ---
Author Organization [employer] Address [address] [facility] [address]t [place] [address] Care Team Providers Care Lodge Sales Associate Name Role Phone Senait Pal MD Primary Care Provider Gustabo Fernandez PharmD Unavailable [phone] Encounter Details Date Type Department Care Team ([facility] st Contact Info) Description 11/12/2022 Orders Only [facility] MEDICINE [address] [place], [place] [phone] Senait Pal MD [address] [place], [place] [phone] Social History Tobacco Use Types Packs/Day Years [...] documented as of this encounter Care Teams Lodge Sales Associate Relationship Specialty Start Date End Date Senait Pal MD [address] [place] [address] PCP - General Family Medicine 02/22/20 Gustabo Fernandez PharmD [address] [place] [address] Pharmacist Internal Medicine 07/16/22 [facility] 09/14/23 documented as of this encounter
--- OUTSIDE RECORDS SUMMARY | 2025-02-09 16:31 | XMS_ITS | Encounter Summary ---
Author Organization [employer] Address [address] [place] [address] Care Team Providers Care Production Underwriter Name Role Phone Senait Pal MD Primary Care Provider [phone] Gustabo Fernandez PharmD Unavailable [phone] Encounter Details Date Type Department Care Team ([facility] st Contact Info) Description 09/16/2023 Orders Only [facility] MEDICINE [address] [place], [place] [phone] Senait Pal MD [address] [place], [place] [phone] Open wound of right great toe, initial [...] documented as of this encounter Care Teams Production Underwriter Relationship Specialty Start Date End Date Senait Pal MD [address] [place] [address] PCP - General Family Medicine 02/22/20 Gustabo Fernandez, PharmD [address] [place] [address] Pharmacist Internal Medicine 07/16/22 [facility] 09/14/23 documented as of this encounter
--- OUTSIDE RECORDS SUMMARY | 2025-02-09 16:31 | XMS_ITS | Encounter Summary ---
Author Organization [employer] Address [address] [place] [address] Care Team Providers Care Automobile Service Writer Name Role Phone Senait Pal MD Primary Care Provider [phone] Gustabo Fernandez PharmD Unavailable [phone] Reason for Visit * Reason Onset Date Comments Durable Medical Equipment 10/01/2023 Encounter Details Date Type Department Care Team (Late st Contact Info) Description 10/01/2023 Telephone [facility] MEDICINE [address] [place], [place] [phone] Senait Pal MD [address] [place], [place] [phone] Durable Medical Equipment Social History Tobacco Use [...] - 10/01/2023 12:24 PM EDT Tc from [facility] at [facility] [place] [facility] calling to request DME raised toilet seat transfer tub bench Please fax to [phone] documented in this encounter Plan of Treatment [...] documented as of this encounter Care Teams Automobile Service Writer Relationship Specialty Start Date End Date Senait Pal MD [address] [place] [address] PCP - General Family Medicine 02/22/20 Gustabo Fernandez PharmD [address] [place] [address] Pharmacist Internal Medicine 07/16/22 [facility] [place] [facility] 09/14/23 documented as of this encounter
--- OUTSIDE RECORDS SUMMARY | 2025-02-09 16:31 | XMS_ITS | Encounter Summary ---
Author Organization [employer] Address [address] [facility] [address] [facility] [address] [facility] [address] [place] [address] Care Team Providers Care Search Lead Name Role Phone Senait Pal MD Primary Care Provider [phone] Gustabo Fernandez PharmD Unavailable [phone] Encounter Details Date Type Department Care Team ([facility] st Contact Info) Description 10/30/2023 Orders Only [facility] MEDICINE [address] [place], [place] [phone] Senait Pal MD [address] [place] [address] Social History Tobacco Use Types Packs/Day Years [...] documented as of this encounter Care Teams Search Lead Relationship Specialty Start Date End Date Senait Pal MD [address] [place] [address] PCP - General Family Medicine 02/22/20 Gustabo Fernandez PharmD [address] [place] [address] Pharmacist Internal Medicine 07/16/22 [facility] 09/14/23 documented as of this encounter
--- OUTSIDE RECORDS SUMMARY | 2025-02-09 16:31 | XMS_ITS | Encounter Summary ---
Author Organization [employer] Address [address] [place] [address] 7 [place] [address] Care Team Providers Care Line Mover Name Role Phone Senait Pal MD Primary Care Provider [phone] Gustabo Fernandez PharmD Unavailable [phone] Encounter Details Date Type Department Care Team ([facility] st Contact Info) Description 08/09/2022 [facility] Health Information Management [address] [place], [place] [phone] Senait Pal MD [address] [place], [place] [phone] Social History Tobacco Use Types Packs/Day Years [...] on filedocumented in this encounter Care Teams Line Mover Relationship Specialty Start Date End Date Senait Pal MD [address] [place] [address] PCP - General Family Medicine 02/22/20 Gustabo Fernandez, HarshaD [address] [place] [address] Pharmacist Internal Medicine 07/16/22 [facility] 09/14/23 documented as of this encounter
--- OUTSIDE RECORDS SUMMARY | 2025-02-09 16:31 | XMS_ITS | Encounter Summary ---
Author Organization [employer] Address [address] [place] [address] Care Team Providers Care Tombstone Erector Name Role Phone Sneait Pal MD Primary Care Provider [phone] Gustabo Fernandez PharmD Unavailable [phone] Encounter Details Date Type Department Care Team ([facility] st Contact Info) Description 02/26/2023 Orders Only [facility] [address] [place], [place] [phone] Senait Pal MD [address] [place], [place] [phone] Social History Tobacco Use Types Packs/Day Years [...] EST) Vitamin D, 25-OH, D2 <4 ng/mL [facility] Comment:This test was reagan cerda and its analytical performancecharacteristics have been determined by [facility] [place], [place]. It hasnot been cleared or approved by the U.S. Food and DrugAdministration. This assay has been validated pursuantto the CLIA regulations and is used for clinicalpurposes.THIS TEST WAS PERFORMED AT:[facility] [place] [id number] AVILA MD,PHD Vitamin D, 25-OH, D3 47 ng/mL [facility] Comment:This test was devamao ped and its analytical performancecharacteristics have been determined by [facility] [place], [place]. It hasnot been cleared or approved by the U.S. Food and DrugAdministration. This assay has been validated pursuantto the CLIA regulations and is used for clinicalpurposes. Vitamin D, 25-OH, Total 47 30 - 100 ng/mL [facility] Comment:Vitamin D, 25-Hydrox y reports concentrations [...] = 30 ng/mL.For additional information, please refer tohttp://education.[employer] SOCIAL/faq/CGJ518(This link is being provided for informational/educational purposes only.) 02/26/2023 2:25 PM EST 02/26/2023 2:25 PM EST us Generic External Data Provider LAB BLOOD ORDERAB LES Final Result [facility] [address] [place] [phone] * (ABNORMAL) Calcium, Ionized (02/26/2023 2:25 PM EST) Calcium, Ionized 3.6(A) 4.7 - 5.5 mg/dL [facility] Comment:THIS TEST WAS PERFOR MED AT:[facility] [place] [id number] RAHMAN MD 02/26/2023 2:25 PM EST 02/26/2023 2:25 PM EST us Generic External Data Provider LAB BLOOD ORDERAB LES Final Result Performing Organization Address [facility] Co de Phone Number [facility] [address] [place] [phone] * (ABNORMAL) PTH, Intact Without Calcium (02/26/2023 2:25 PM EST) Parathyroid Hormone, Intact 135.0(H) 8.7 - 77.1 pg/mL [facility] 02/26/2023 2:25 PM EST 02/26/2023 2:25 PM EST us Generic External Data Provider LAB BLOOD ORDERAB LES Final Result Performing Organization Address [facility] de Phone Number [facility] [address] [place] [phone] documented in this encounter Visit Diagnoses Not on filedocumented in this encounter Additional Health Concerns Assessment Noted Time PHQ-9 Depression Total Score: 7 11/01/19 23 11:04 AM EDT documented as of this encounter Care Teams Tombstone Erector Relationship Specialty Start Date End Date Senait Pal MD [address] [place] [address] PCP - General Family Medicine 02/22/20 Gustabo Fernandez, HarshaD [address] [place] [address] Pharmacist Internal Medicine 07/16/22 [facility] 09/14/23 documented as of this encounter
--- OUTSIDE RECORDS SUMMARY | 2025-02-09 16:31 | XMS_ITS | Encounter Summary ---
Author Organization [employer] Address [address] [place] [address] Care Team Providers Care Senior Technical Analyst Name Role Phone Senait Pal MD Primary Care Provider [phone] Gustabo Fernandez PharmD Unavailable [phone] Reason for Visit * Reason Comments Med Refill Encounter Details Date Type Department Care Team ([facility] st Contact Info) Description 03/23/2024 Refill [facility] [address] [place], [place] [phone] Senait Pal MD [address] [place], [place] [phone] Social History Tobacco Use Types Packs/Day Years [...] as of this encounter Care Teams Senior Technical Analyst Relationship Specialty Start Date End Date Senait Pal MD [address] [place] [phone] PCP - General Family Medicine 02/22/20 Gustabo Fernandez, PharmD [address] [place], [place] [address] [address] Pharmacist Internal Medicine 07/16/22 [facility] 09/14/23 documented as of this encounter
--- OUTSIDE RECORDS SUMMARY | 2025-02-09 16:31 | XMS_ITS | Encounter Summary ---
Author Organization [employer] Address [address] [place] [address] [address] [place] [address] Care Team Providers Care Milk Driver Name Role Phone Senait Pal MD Primary Care Provider [phone] Gustabo Fernandez PharmD Unavailable [phone] Reason for Visit * Reason Onset Date Comments Other 11/21/2022 Results 11/21/2022 Encounter Details Date Type Department Care Team ([facility] st Contact Info) Description 11/21/2022 Telephone [facility] [address] [place], [place] [phone] Senait Pal MD [address] [place], [place] [phone] Other; Results Social History Tobacco Use Types [...] 2:14 PM EDT Tc from Yuliya at [facility] requesting on behalf of patient a new script for a glucose meter, current one doesn't work. Patient is also requesting results from kidney biopsy. Please call [phone]. documented in this encounter Plan of Treatment [...] documented as of this encounter Care Teams Milk Driver Relationship Specialty Start Date End Date Senait Pal MD [address] [place] [address] PCP - General Family Medicine 02/22/20 Gustabo Fernandez, PharmD [address] [place] [address] Pharmacist Internal Medicine 07/16/22 [facility] 09/14/23 documented as of this encounter
--- OUTSIDE RECORDS SUMMARY | 2025-02-09 16:31 | XMS_ITS | Encounter Summary ---
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
--- OUTSIDE RECORDS SUMMARY | 2025-02-09 16:31 | XMS_ITS | Encounter Summary ---
Author Organization [employer] Address [address] [facility] [address] [facility] [address] [place] [address] Care Team Providers Care Boxing Promoter Name Role Phone Senait Pal MD Primary Care Provider [phone] Gustabo Fernandez PharmD Unavailable [phone] Encounter Details Date Type Department Care Team ([facility] st Contact Info) Description 11/01/2022 Abstract [facility] [address] [place], [place] [phone] Senait Pal MD [address] [place], [place] [phone] Social History Tobacco Use Types Packs/Day Years [...] Eye Exam (08/04/2022) Eye Exam Normal Normal [facility] Unassigned Pcp HEALTH MAINTENANCE Final Result documented in this encounter Visit Diagnoses Not on filedocumented in this encounter Additional Health Concerns Assessment Noted Time PHQ-9 Depression Total Score: 7 11/01/19 23 11:04 AM EDT documented as of this encounter Care Teams Boxing Promoter Relationship Specialty Start Date End Date Senait Pal MD [address] [place] [address] PCP - General Family Medicine 02/22/20 Gustabo Fernandez, HarshaD [address] [place] [address] Pharmacist Internal Medicine 07/16/22 [facility] 09/14/23 documented as of this encounter
== END 2025-02-09 13:21 | disposition home or self-care (01) ==
LOC: HO.HKA 12:53
PROVIDERS: PCP Family Medicine; Visit Provider Internal Medicine Hypertension Specialist
DX: N18.6 End stage renal disease (principal); Z99.2 Dependence on renal dialysis
CPT/HCPCS: 99024

== ENCOUNTER → 2025-02-09 12:52 | Outpatient (BNVA) | payer OTHER, SELFPAY | PROVIDERS: PCP Family Medicine; Visit Provider Internal Medicine Hypertension Specialist | DX: I13.2 Hypertensive heart and chronic kidney disease with heart failure and with stage 5 chronic kidney disease, or end stage renal disease (principal); E11.22 Type 2 diabetes mellitus with diabetic chronic kidney disease; N18.6 End stage renal disease; I50.9 Heart failure, unspecified; Z99.2 Dependence on renal dialysis; Z87.891 Personal history of nicotine dependence | CPT/HCPCS: 99212 ==